=== PATIENT | male | born 1945 | race Caucasian/White ===

== ENCOUNTER 2018-03-24 18:04 | Emergency (ER) | payer MEDICARE, OTHER ==
[2018-03-24] MEDS ORDERED: ALBUTEROL NEBULIZED 2.5 MG/3 ML INHALATION STA (19:00)
[2018-03-24] MEDS ORDERED: methylPREDNISolone SOD SUCCI 125 MG/2 ML VIAL IV STA (19:00)
[2018-03-24] MEDS ORDERED: IPRATROPIUM 0.5 MG/2.5 ML NEBU INHALATION STA (19:00)
--- NOTE | 2018-03-24 19:05 | ED ---
SOB HPI - General Chief Complaint: Shortness of Breath Stated Complaint: COPD Time Seen by Provider: 03/24/18 18:45 Source: patient, family Mode of arrival: ambulatory Limitations: no limitations - History of Present Illness Initial Comments: 72-year-old male patient with past medical history significant for COPD, atrial fibrillation, and benign prostatic hypertrophy presents to the emergency department today with complaints of shortness of breath and wheezing. Patient states that he was up several times throughout the night with shortness of breath. Patient states he has done multiple breathing treatments today, states it has been more than three. Patient states he is having a frequent cough but states it is nonproductive. States that his abdominal muscles are sore from coughing. He denies any chest pain states that he does have some tightness however. Denies any hemoptysis. Patient states he did just complete a course of steroids. Patient did move here from out of town and has yet to establish with a primary care physician. Patient denies any recent rash, fever, chills, abdominal pain, nausea, vomiting, diarrhea, constipation, back pain, numbness, tingling, dizziness, weakness, hematuria, dysuria, urinary urgency, urinary frequency, headache, visual changes, or any other complaints. - Related Data Home Medications Medication Instructions Recorded Confirmed Albuterol Inhaler [Ventolin Hfa 2 puff INHALATION RT-Q6H PRN 03/24/18 03/24/18 Inhaler] Apixaban [Eliquis] 5 mg PO BID 03/24/18 03/24/18 Aspirin EC [Ecotrin Low Dose] 81 mg PO DAILY 03/24/18 03/24/18 Ipratropium-Albuterol Nebulize 3 ml INHALATION RT-QID PRN 03/24/18 03/24/18 [Duoneb 0.5 mg-3 mg/3 ml Soln] Tamsulosin HCl [Flomax] 0.8 mg PO HS 03/24/18 03/24/18 Previous Rx's Medication Instructions Recorded Benzonatate [Tessalon Perles] 100 mg PO TID #15 cap 03/24/18 predniSONE 50 mg PO DAILY #5 tablet 03/24/18 Allergies Allergy/AdvReac Type Severity Reaction Status Date / Time latex Allergy Rash/Hives Verified 03/24/18 18:54 Review of Systems ROS Statement: Those systems with pertinent positive or pertinent negative responses have been documented in the HPI. ROS Other: All systems not noted in ROS Statement are negative. Past Medical History Past Medical History: Atrial Fibrillation, COPD History of Any Multi-Drug Resistant Organisms: None Reported Past Surgical History: No Surgical Hx Reported Past Psychological History: No Psychological Hx Reported Smoking Status: Former smoker Past Alcohol Use History: None Reported Past Drug Use History: None Reported General Exam Limitations: no limitations General appearance: alert, in no apparent distress, other (This is a well- developed, well-nourished elderly male patient in no acute distress. Vital signs upon presentation are temperature 98.2F, pulse 97, respirations 22, blood pressure 130/76, pulse ox 96% on room air.) Eye exam: Present: normal appearance, PERRL, EOMI. Absent: scleral icterus, conjunctival injection, periorbital swelling ENT exam: Present: normal exam, normal oropharynx, mucous membranes moist Respiratory exam: Present: wheezes (Scattered expiratory wheezes in the posterior lung meyers), decreased breath sounds. Absent: normal lung sounds bilaterally, respiratory distress, rales, rhonchi, stridor Cardiovascular Exam: Present: regular rate, normal rhythm, normal heart sounds. Absent: systolic murmur, diastolic murmur, rubs, gallop, clicks GI/Abdominal exam: Present: soft, normal bowel sounds. Absent: distended, tenderness, guarding, rebound, rigid Neurological exam: Present: alert, oriented X3, CN II-XII intact Psychiatric exam: Present: normal affect, normal mood Skin exam: Present: warm, dry, intact, normal color. Absent: rash Course Vital Signs 03/24/18 03/24/18 03/24/18 18:11 19:21 19:31 Temperature 98.2 F Pulse Rate 97 100 102 H Respiratory 22 Rate Blood Pressure 130/76 O2 Sat by Pulse 96 Oximetry 03/24/18 03/24/18 03/24/18 20:27 20:33 21:00 Temperature Pulse Rate 67 78 77 Respiratory 20 18 Rate Blood Pressure 122/75 119/68 O2 Sat by Pulse 97 99 Oximetry 03/24/18 22:51 Temperature 97.9 F Pulse Rate 87 Respiratory 18 Rate Blood Pressure 109/74 O2 Sat by Pulse 94 L Oximetry Medical Decision Making - Medical Decision Making 72-year-old male patient presents to the emergency department today for complaints of shortness of breath. Patient has past medical history significant for COPD and states that his been bothering him overnight. Patient states he did multiple breathing treatments throughout the day today. Physical examination did reveal diminished lung sounds with scattered expiratory wheezes in the posterior lung meyers. Patient was tachypneic upon arrival. Labs reviewed and were unremarkable. EKG showed no acute abnormalities. Chest x- ray showed interstitial fibrosis but no acute findings. She was given breathing treatment and IV steroids here in the department. Upon reevaluation patient states he is feeling much better. 94% on room air. He'll be discharged home with prescription for prednisone and instructed to increase frequency breathing treatments every 4 hours as needed. He is instructed to follow-up with his primary care physician for recheck as soon as possible. Return parameters were discussed in detail. He verbalizes understanding and agrees with this plan. - Lab Data Result diagrams: 03/24/18 19:05 03/24/18 19:05 Lab Results 03/24/18 03/24/18 03/24/18 Range/Units 19:05 19:05 19:05 WBC 9.5 (3.8-10.6) k/uL RBC 4.36 (4.30-5.90) m/uL Hgb 14.2 (13.0-17.5) gm/dL Hct 42.0 (39.0-53.0) % MCV 96.2 (80.0-100.0) fL MCH 32.5 (25.0-35.0) pg MCHC 33.8 (31.0-37.0) g/dL RDW 12.9 (11.5-15.5) % Plt Count 217 (150-450) k/uL Neutrophils % 66 % Lymphocytes % 18 % Monocytes % 6 % Eosinophils % 7 % Basophils % 1 % Neutrophils # 6.3 (1.3-7.7) k/uL Lymphocytes # 1.7 (1.0-4.8) k/uL Monocytes # 0.5 (0-1.0) k/uL Eosinophils # 0.7 (0-0.7) k/uL Basophils # 0.1 (0-0.2) k/uL PT (9.0-12.0) sec INR (<1.2) APTT (22.0-30.0) sec Sodium 136 L (137-145) mmol/L Potassium 4.8 (3.5-5.1) mmol/L Chloride 105 (98-107) mmol/L Carbon Dioxide 24 (22-30) mmol/L Anion Gap 7 mmol/L BUN 24 H (9-20) mg/dL Creatinine 1.07 (0.66-1.25) mg/dL Est GFR (CKD-EPI)AfAm 80 (>60 ml/min/1.73 sqM) Est GFR (CKD-EPI)NonAf 70 (>60 ml/min/1.73 sqM) Glucose 88 (74-99) mg/dL Plasma Lactic Acid Santi (0.7-2.0) mmol/L Calcium 8.9 (8.4-10.2) mg/dL Magnesium 2.2 (1.6-2.3) mg/dL Total Bilirubin 0.5 (0.2-1.3) mg/dL AST 21 (17-59) U/L ALT 36 (21-72) U/L Alkaline Phosphatase 66 (38-126) U/L Total Creatine Kinase 75 (55-170) U/L CK-MB (CK-2) 2.8 H (0.0-2.4) ng/mL CK-MB (CK-2) Rel Index 3.7 Troponin I <0.012 (0.000-0.034) ng/mL Total Protein 6.2 L (6.3-8.2) g/dL Albumin 3.7 (3.5-5.0) g/dL 03/24/18 03/24/18 Range/Units 19:05 19:05 WBC (3.8-10.6) k/uL RBC (4.30-5.90) m/uL Hgb (13.0-17.5) gm/dL Hct (39.0-53.0) % MCV (80.0-100.0) fL MCH (25.0-35.0) pg MCHC (31.0-37.0) g/dL RDW (11.5-15.5) % Plt Count (150-450) k/uL Neutrophils % % Lymphocytes % % Monocytes % % Eosinophils % % Basophils % % Neutrophils # (1.3-7.7) k/uL Lymphocytes # (1.0-4.8) k/uL Monocytes # (0-1.0) k/uL Eosinophils # (0-0.7) k/uL Basophils # (0-0.2) k/uL PT 9.7 (9.0-12.0) sec INR 0.9 (<1.2) APTT 24.0 (22.0-30.0) sec Sodium (137-145) mmol/L Potassium (3.5-5.1) mmol/L Chloride (98-107) mmol/L Carbon Dioxide (22-30) mmol/L Anion Gap mmol/L BUN (9-20) mg/dL Creatinine (0.66-1.25) mg/dL Est GFR (CKD-EPI)AfAm (>60 ml/min/1.73 sqM) Est GFR (CKD-EPI)NonAf (>60 ml/min/1.73 sqM) Glucose (74-99) mg/dL Plasma Lactic Acid Santi 1.2 (0.7-2.0) mmol/L Calcium (8.4-10.2) mg/dL Magnesium (1.6-2.3) mg/dL Total Bilirubin (0.2-1.3) mg/dL AST (17-59) U/L ALT (21-72) U/L Alkaline Phosphatase (38-126) U/L Total Creatine Kinase (55-170) U/L CK-MB (CK-2) (0.0-2.4) ng/mL CK-MB (CK-2) Rel Index Troponin I (0.000-0.034) ng/mL Total Protein (6.3-8.2) g/dL Albumin (3.5-5.0) g/dL - EKG Data -: EKG Interpreted by Mi EKG Comments: EKG obtained at 1934 shows normal sinus rhythm with a ventricular rate of 82, CO interval 158, QRS duration 78, QT 364, QTC 425. No evidence of ST elevation or depression. - Radiology Data Radiology results: report reviewed, image reviewed Two-view x-ray of the chest is obtained. Report is reviewed in its entirety. Impression by Dr. Benedict shows mild interstitial fibrosis. Normal heart. No acute lung disease. Disposition Clinical Impression: COPD exacerbation Disposition: HOME SELF-CARE Condition: Good Instructions (If sedation given, give patient instructions): COPD (Chronic Obstructive Pulmonary Disease) (ED) Additional Instructions: Complete steroid prescription and full. 2 breathing treatments at home every 4 hours as needed. Follow-up with your primary care physician for recheck in 1-2 days. Return immediately for any new, worsening, or concerning symptoms. Prescriptions: Benzonatate [Tessalon Perles] 100 mg PO TID #15 cap predniSONE 50 mg PO DAILY #5 tablet Is patient prescribed a controlled substance at d/c from ED?: No Referrals: Deandre Flowers DO [STAFF PHYSICIAN] - 1-2 days Time of Disposition: 22:44
[2018-03-24 19:21] LABS: Basophils # (A) 0.1 k/uL (0-0.2); Basophils % (A) 1 %; Eosinophils # (A) 0.7 k/uL (0-0.7); Eosinophils % (A) 7 %; HGB 14.2 gm/dL (13.0-17.5); Lymphocytes # (A) 1.7 k/uL (1.0-4.8); Lymphocytes % (A) 18 %; MCH 32.5 pg (25.0-35.0); MCHC 33.8 g/dL (31.0-37.0); MCV 96.2 fL (80.0-100.0); Monocytes # (A) 0.5 k/uL (0-1.0); Monocytes % (A) 6 %; Neutrophils # (A) 6.3 k/uL (1.3-7.7); Neutrophils % (A) 66 %; Platelet Count 217 k/uL (150-450); RBC 4.36 m/uL (4.30-5.90); RDW 12.9 % (11.5-15.5); WBC 9.5 k/uL (3.8-10.6)
[2018-03-24 19:31] LABS: Albumin 3.7 g/dL (3.5-5.0); Calcium 8.9 mg/dL (8.4-10.2); INR 0.9 (<1.2); Magnesium 2.2 mg/dL (1.6-2.3); Potassium 4.8 mmol/L (3.5-5.1); Prothrombin Time 9.7 sec (9.0-12.0); Total Bilirubin 0.5 mg/dL (0.2-1.3); Total Protein 6.2 g/dL (6.3-8.2)
[2018-03-24 19:32] LABS: Creatine Kinase 75 U/L (55-170)
[2018-03-24 19:46] LABS: Creatine Kinase MB 2.8 ng/mL (0.0-2.4); Troponin I <0.012 ng/mL (0.000-0.034)
[2018-03-24 21:15] VITALS: RESP 18
--- NOTE | 2018-03-24 22:23 | XR ---
EXAMINATION: XR chest 2V DATE AND TIME: 03/24/2018 8:40 PM CLINICAL INDICATION: PHH; difficulty breathing TECHNIQUE: Departmental protocol COMPARISON: None FINDINGS: There is slight coarsening of interstitial markings. Heart and mediastinum are normal. There is no pl eural effusion. Bony thorax is intact. There are no hilar masses. IMPRESSION: Mild interstitial fibrosis. Normal heart. No acute lung disease.
[2018-03-24 22:52] VITALS: BP 109/74; PULSE 87; TEMP 97.9
== END 2018-03-24 22:52 | disposition home or self-care (01) ==
LOC: EC 18:04
DX: J44.1 Chronic obstructive pulmonary disease with (acute) exacerbation (principal); J84.10 Pulmonary fibrosis, unspecified; I48.91 Unspecified atrial fibrillation; N40.0 Benign prostatic hyperplasia without lower urinary tract symptoms; Z87.891 Personal history of nicotine dependence; Z91.040 Latex allergy status; Z79.01 Long term (current) use of anticoagulants; Z79.82 Long term (current) use of aspirin; Z79.899 Other long term (current) drug therapy
CPT/HCPCS: 36415; 94644; 93005; 80053; 82550; 82553; 83605; 83735; 84484; 85025; 85610; 85730; 87040; 71046; 99285; 96374; J2930

== ENCOUNTER 2018-04-03 15:06 | Inpatient (IN) | payer MEDICARE, OTHER ==
[2018-04-03] MEDS ORDERED: IPRATROPIUM 0.5 MG/2.5 ML NEBU INHALATION STA (15:20)
[2018-04-03] MEDS ORDERED: methylPREDNISolone SOD SUCCI 125 MG/2 ML VIAL IV STA (15:20)
[2018-04-03] MEDS ORDERED: ALBUTEROL NEBULIZED 2.5 MG/3 ML INHALATION STA (15:20)
--- NOTE | 2018-04-03 15:32 | ED ---
General Adult HPI - General Chief complaint: Shortness of Breath Stated complaint: KEERTHI Time Seen by Provider: 04/03/18 15:12 Source: patient, RN notes reviewed, old records reviewed Mode of arrival: ambulatory Limitations: no limitations - History of Present Illness Initial comments: 72-year-old male history of COPD presenting with worsening cough and dyspnea. Patient was seen in the emergency department 10 days ago, prescribed antibiotic , steroids symptoms initially did somewhat improve however over the past 2-3 days has had worsening cough and dyspnea. Cough is nonproductive. Denies fever or chills. Denies central chest pain, he does have some chest tightness which she associates with congestion. Denies new lower extremity pain or swelling. No history of heart failure. He does have history of atrial fibrillation and is currently on anticoagulation. He has been using albuterol, Atrovent and steroids without relief at home. - Related Data Home Medications Medication Instructions Recorded Confirmed Albuterol Inhaler [Ventolin Hfa 2 puff INHALATION RT-Q6H PRN 03/24/18 04/03/18 Inhaler] Apixaban [Eliquis] 5 mg PO BID 03/24/18 04/03/18 Aspirin EC [Ecotrin Low Dose] 81 mg PO DAILY 03/24/18 04/03/18 Ipratropium-Albuterol Nebulize 3 ml INHALATION RT-QID PRN 03/24/18 04/03/18 [Duoneb 0.5 mg-3 mg/3 ml Soln] Tamsulosin HCl [Flomax] 0.8 mg PO HS 03/24/18 04/03/18 Allergies Allergy/AdvReac Type Severity Reaction Status Date / Time latex Allergy Rash/Hives Verified 04/03/18 15:55 Review of Systems ROS Statement: Those systems with pertinent positive or pertinent negative responses have been documented in the HPI. ROS Other: All systems not noted in ROS Statement are negative. Past Medical History Past Medical History: Atrial Fibrillation, COPD History of Any Multi-Drug Resistant Organisms: None Reported Past Surgical History: No Surgical Hx Reported Past Psychological History: No Psychological Hx Reported Smoking Status: Former smoker Past Alcohol Use History: None Reported Past Drug Use History: None Reported General Exam Limitations: no limitations General appearance: alert, in no apparent distress Head exam: Present: atraumatic, normocephalic Eye exam: Present: normal appearance, PERRL ENT exam: Present: normal exam Neck exam: Present: normal inspection. Absent: tenderness, meningismus Respiratory exam: Present: respiratory distress, wheezes, rhonchi, decreased breath sounds (Left lung field) Cardiovascular Exam: Present: regular rate, normal rhythm GI/Abdominal exam: Present: soft. Absent: distended, tenderness Extremities exam: Present: normal inspection, normal capillary refill. Absent: pedal edema, calf tenderness Neurological exam: Present: alert, oriented X3, CN II-XII intact. Absent: motor sensory deficit Psychiatric exam: Present: normal affect, normal mood Skin exam: Present: warm, dry, intact. Absent: cyanosis, diaphoretic Course Vital Signs 04/03/18 04/03/18 04/03/18 15:06 15:25 15:30 Temperature 98.5 F Pulse Rate 98 85 Respiratory 22 20 18 Rate Blood Pressure 142/83 135/88 O2 Sat by Pulse 94 L 97 Oximetry 04/03/18 04/03/18 04/03/18 15:50 16:00 16:10 Temperature Pulse Rate 96 88 95 Respiratory 18 22 18 Rate Blood Pressure 126/82 126/105 O2 Sat by Pulse 95 95 Oximetry 04/03/18 04/03/18 04/03/18 16:20 16:26 16:30 Temperature Pulse Rate 99 91 88 Respiratory 25 H 20 26 H Rate Blood Pressure 126/105 126/105 O2 Sat by Pulse 94 L 92 L Oximetry 04/03/18 04/03/18 04/03/18 16:40 16:50 17:00 Temperature Pulse Rate 89 89 Respiratory 26 H 27 H Rate Blood Pressure 119/80 130/84 130/84 O2 Sat by Pulse 97 96 Oximetry 04/03/18 04/03/18 17:10 17:20 Temperature Pulse Rate 97 96 Respiratory 22 17 Rate Blood Pressure 121/70 121/70 O2 Sat by Pulse 95 96 Oximetry EKG Findings - EKG Comments: EKG Findings:: EKG: Normal sinus rhythm artifact in Predominantly V3, anterior infarct, no acute ischemic changes, rate of 92, IL interval 156, QRS duration 78 , QTC 4:[address] segment elevation Medical Decision Making - Medical Decision Making 72-year-old male presenting with cough and dyspnea history of COPD. Patient has been on antibiotics and steroids as an outpatient, felt improved. Moderate dyspnea on exam. Given albuterol, Atrovent, steroids with minimal improvement in the emergency department. Chest x-ray negative for focal pneumonia. Patient has normal CBC, normal CMP, negative troponin and BNP. Will be admitted for further treatment of COPD exacerbation. Case discussed with admitting physician will accept. - Lab Data Result diagrams: 04/03/18 15:45 04/03/18 15:45 Lab Results 04/03/18 04/03/18 04/03/18 Range/Units 15:45 15:45 15:45 WBC 10.2 (3.8-10.6) k/uL RBC 4.69 (4.30-5.90) m/uL Hgb 14.6 (13.0-17.5) gm/dL Hct 45.3 (39.0-53.0) % MCV 96.6 (80.0-100.0) fL MCH 31.2 (25.0-35.0) pg MCHC 32.3 (31.0-37.0) g/dL RDW 12.9 (11.5-15.5) % Plt Count 259 (150-450) k/uL Neutrophils % 59 % Lymphocytes % 16 % Monocytes % 8 % Eosinophils % 14 % Basophils % 1 % Neutrophils # 6.0 (1.3-7.7) k/uL Lymphocytes # 1.6 (1.0-4.8) k/uL Monocytes # 0.8 (0-1.0) k/uL Eosinophils # 1.4 H (0-0.7) k/uL Basophils # 0.1 (0-0.2) k/uL PT (9.0-12.0) sec INR (<1.2) APTT (22.0-30.0) sec Sodium 135 L (137-145) mmol/L Potassium 4.7 (3.5-5.1) mmol/L Chloride 102 (98-107) mmol/L Carbon Dioxide 24 (22-30) mmol/L Anion Gap 9 mmol/L BUN 19 (9-20) mg/dL Creatinine 0.79 (0.66-1.25) mg/dL Est GFR (CKD-EPI)AfAm >90 (>60 ml/min/1.73 sqM) Est GFR (CKD-EPI)NonAf >90 (>60 ml/min/1.73 sqM) Glucose 87 (74-99) mg/dL Plasma Lactic Acid Santi (0.7-2.0) mmol/L Calcium 9.1 (8.4-10.2) mg/dL Magnesium 2.2 (1.6-2.3) mg/dL Total Bilirubin 1.0 (0.2-1.3) mg/dL AST 20 (17-59) U/L ALT 36 (21-72) U/L Alkaline Phosphatase 60 (38-126) U/L Total Creatine Kinase 66 (55-170) U/L CK-MB (CK-2) 1.8 (0.0-2.4) ng/mL CK-MB (CK-2) Rel Index 2.7 Troponin I <0.012 (0.000-0.034) ng/mL NT-Pro-B Natriuret Pep pg/mL Total Protein 6.1 L (6.3-8.2) g/dL Albumin 4.1 (3.5-5.0) g/dL 04/03/18 04/03/18 04/03/18 Range/Units 15:45 15:45 15:45 WBC (3.8-10.6) k/uL RBC (4.30-5.90) m/uL Hgb (13.0-17.5) gm/dL Hct (39.0-53.0) % MCV (80.0-100.0) fL MCH (25.0-35.0) pg MCHC (31.0-37.0) g/dL RDW (11.5-15.5) % Plt Count (150-450) k/uL Neutrophils % % Lymphocytes % % Monocytes % % Eosinophils % % Basophils % % Neutrophils # (1.3-7.7) k/uL Lymphocytes # (1.0-4.8) k/uL Monocytes # (0-1.0) k/uL Eosinophils # (0-0.7) k/uL Basophils # (0-0.2) k/uL PT 10.0 (9.0-12.0) sec INR 0.9 (<1.2) APTT 24.4 (22.0-30.0) sec Sodium (137-145) mmol/L Potassium (3.5-5.1) mmol/L Chloride (98-107) mmol/L Carbon Dioxide (22-30) mmol/L Anion Gap mmol/L BUN (9-20) mg/dL Creatinine (0.66-1.25) mg/dL Est GFR (CKD-EPI)AfAm (>60 ml/min/1.73 sqM) Est GFR (CKD-EPI)NonAf (>60 ml/min/1.73 sqM) Glucose (74-99) mg/dL Plasma Lactic Acid Santi 1.1 (0.7-2.0) mmol/L Calcium (8.4-10.2) mg/dL Magnesium (1.6-2.3) mg/dL Total Bilirubin (0.2-1.3) mg/dL AST (17-59) U/L ALT (21-72) U/L Alkaline Phosphatase (38-126) U/L Total Creatine Kinase (55-170) U/L CK-MB (CK-2) (0.0-2.4) ng/mL CK-MB (CK-2) Rel Index Troponin I (0.000-0.034) ng/mL NT-Pro-B Natriuret Pep 26 pg/mL Total Protein (6.3-8.2) g/dL Albumin (3.5-5.0) g/dL Critical Care Time Critical Care Time: Yes Disposition Clinical Impression: COPD exacerbation Disposition: ADMITTED IP TO THIS [facility] Condition: Stable Is patient prescribed a controlled substance at d/c from ED?: No Referrals: Frankie Wall DO [Primary Care Provider] - 1-2 days Decision to Admit Reason: Admit from EC Decision Date: 04/03/18 Decision Time: 17:39
[2018-04-03] MEDS ORDERED: IPRATROPIUM-ALBUTEROL 3 ML NEB INHALATION PRN ×2 (15:48→17:37)
--- NOTE | 2018-04-03 15:55 | P.HPIM ---
History of Present Illness Patient is a very pleasant 70-year-old gentleman came in with complaints of shortness of breath cough unable to bring up anything. Patient symptoms has been going on for last 3-4 days patient is unable to sleep because of shortness of breath last night. Chest x-ray is not available at this time which was ordered in ER. Patient has significant wheezing on exam patient doesn't wear any oxygen at home continues to smoke cut down on smoking quite a bit. Patient denied any fever chills body aches nausea vomiting dysuria. Review of Systems REVIEW OF SYSTEMS: CONSTITUTIONAL: No fever, no malaise, no fatigue. HEENT: No recent visual problems or hearing problems. Denied any sore throat. CARDIOVASCULAR: No chest pain, orthopnea, PND, no palpitations, no syncope. PULMONARY: , no hemoptysis. GASTROINTESTINAL: No diarrhea, no nausea, no vomiting, no abdominal pain. NEUROLOGICAL: No headaches, no weakness, no numbness. HEMATOLOGICAL: Denies any bleeding or petechiae. GENITOURINARY: Denies any burning micturition, frequency, or urgency. MUSCULOSKELETAL/RHEUMATOLOGICAL: Denies any joint pain, swelling, or any muscle pain. ENDOCRINE: Denies any polyuria or polydipsia. The rest of the 14-point review of systems is negative. Past Medical History Past Medical History: Atrial Fibrillation, COPD History of Any Multi-Drug Resistant Organisms: None Reported Past Surgical History: No Surgical Hx Reported Past Psychological History: No Psychological Hx Reported Smoking Status: Former smoker Past Alcohol Use History: None Reported Past Drug Use History: None Reported Medications and Allergies Home Medications Medication Instructions Recorded Confirmed Type Albuterol Inhaler [Ventolin Hfa 2 puff INHALATION RT-Q6H PRN 03/24/18 03/24/18 History Inhaler] Apixaban [Eliquis] 5 mg PO BID 03/24/18 03/24/18 History Aspirin EC [Ecotrin Low Dose] 81 mg PO DAILY 03/24/18 03/24/18 History Benzonatate [Tessalon Perles] 100 mg PO TID #15 cap 03/24/18 Rx Ipratropium-Albuterol Nebulize 3 ml INHALATION RT-QID PRN 03/24/18 03/24/18 History [Duoneb 0.5 mg-3 mg/3 ml Soln] Tamsulosin HCl [Flomax] 0.8 mg PO HS 03/24/18 03/24/18 History predniSONE 50 mg PO DAILY #5 tablet 03/24/18 Rx Allergies Allergy/AdvReac Type Severity Reaction Status Date / Time latex Allergy Rash/Hives Verified 04/03/18 15:10 Physical Exam Vitals: Vital Signs Temp Pulse Resp BP Pulse Ox 04/03/18 15:06 98.5 F 98 22 142/83 94 L Intake and Output 04/03/18 04/03/18 04/03/18 06:59 14:59 22:59 Other: Weight 72.575 kg PHYSICAL EXAMINATION: GENERAL: The patient is alert and oriented x3, not in any acute distress. Well developed, well nourished. HEENT: Pupils are round and equally reacting to light. EOMI. No scleral icterus. No conjunctival pallor. Normocephalic, atraumatic. No pharyngeal erythema. No thyromegaly. CARDIOVASCULAR: S1 and S2 present. No murmurs, rubs, or gallops. PULMONARY: Significant expiratory wheezing no crackles were appreciated no bronchophony egophony ABDOMEN: Soft, nontender, nondistended, normoactive bowel sounds. No palpable organomegaly. MUSCULOSKELETAL: No joint swelling or deformity. EXTREMITIES: No cyanosis, clubbing, or pedal edema. NEUROLOGICAL: Gross neurological examination did not reveal any focal deficits. SKIN: No rashes. Assessment and Plan Plan: Shortness of breath: Secondary to COPD exacerbation: Patient will be started on systemic steroids inhalational treatments. -History of atrial fibrillation mildly increased heart rate although sinus rhythm, patient will be resumed on anticoagulation with Eliquis aspirin is not necessary that will be discontinued. -We'll rule out pneumonia -Plan prostatic hypertrophy: Continue tamsulosin -Continue nicotine use: Counseling was provided
[2018-04-03] MEDS ORDERED: IPRATROPIUM-ALBUTEROL 3 ML NEB INHALATION SCH (16:00)
[2018-04-03 16:04] LABS: Basophils # (A) 0.1 k/uL (0-0.2); Basophils % (A) 1 %; Eosinophils # (A) 1.4 k/uL (0-0.7); Eosinophils % (A) 14 %; HCT 45.3 % (39.0-53.0); HGB 14.6 gm/dL (13.0-17.5); Lymphocytes # (A) 1.6 k/uL (1.0-4.8); Lymphocytes % (A) 16 %; MCH 31.2 pg (25.0-35.0); MCHC 32.3 g/dL (31.0-37.0); MCV 96.6 fL (80.0-100.0); Mean Platelet Volume 6.9; Monocytes # (A) 0.8 k/uL (0-1.0); Monocytes % (A) 8 %; Neutrophils % (A) 59 %; Platelet Count 259 k/uL (150-450); RBC 4.69 m/uL (4.30-5.90); RDW 12.9 % (11.5-15.5); WBC 10.2 k/uL (3.8-10.6)
[2018-04-03 16:08] LABS: INR 0.9 (<1.2); Partial Thromboplastin Time 24.4 sec (22.0-30.0)
[2018-04-03 16:11] LABS: ALT 36 U/L (21-72); AST 20 U/L (17-59); Albumin 4.1 g/dL (3.5-5.0); Alkaline Phosphatase 60 U/L (38-126); Anion Gap 9 mmol/L; Blood Urea Nitrogen 19 mg/dL (9-20); Calcium 9.1 mg/dL (8.4-10.2); Carbon Dioxide 24 mmol/L (22-30); Chloride 102 mmol/L (98-107); Glucose 87 mg/dL (74-99); Magnesium 2.2 mg/dL (1.6-2.3); Potassium 4.7 mmol/L (3.5-5.1); Sodium 135 mmol/L (137-145); Total Protein 6.1 g/dL (6.3-8.2)
[2018-04-03 16:16] LABS: Creatine Kinase 66 U/L (55-170)
[2018-04-03 16:29] LABS: Creatine Kinase MB 1.8 ng/mL (0.0-2.4); Troponin I <0.012 ng/mL (0.000-0.034)
--- NOTE | 2018-04-03 16:45 | XR ---
EXAMINATION TYPE: XR chest 2V DATE OF EXAM: 04/03/2018 COMPARISON: 03/24/2018 HISTORY: Difficulty breathing TECHNIQUE: Frontal and lateral views of the chest are obtained. FINDINGS: Heart is normal. There is no pulmonary consolidation. There is slight coarsening of inters titial markings. There is no pleural effusion. Bony thorax is intact. IMPRESSION: Minimal pulmonary fibrosis. No acute lung disease. No change. No heart failure.
[2018-04-03] MEDS: BENZONATATE 100 MG CAP PO SCH ×2 (19:31→22:31)
[2018-04-03 20:05] VITALS: BMI 25.8
[2018-04-03] MEDS ORDERED: HEPARIN SODIUM,PORCINE 5,000 UNIT/ML 1 ML VIAL SQ SCH (21:00)
[2018-04-03] MEDS ORDERED: TAMSULOSIN 0.4 MG CAP.ER.24H PO SCH (21:00)
[2018-04-03] MEDS ORDERED: methylPREDNISolone SOD SUCCI 40 MG/ML 1 ML VIAL IV SCH (21:00)
[2018-04-03] MEDS: IPRATROPIUM-ALBUTEROL 3 ML NEB INHALATION SCH (21:01)
[2018-04-03] MEDS: DOXYCYCLINE 100 MG CAP PO SCH (22:30)
[2018-04-03] MEDS: METOPROLOL TARTRATE 25 MG TAB PO SCH (22:30)
[2018-04-03] MEDS: FAMOTIDINE 20 MG TAB PO SCH (22:30)
[2018-04-03] MEDS: APIXABAN 5 MG TAB PO SCH (22:31)
[2018-04-03] MEDS: methylPREDNISolone SOD SUCCI 125 MG/2 ML VIAL IV SCH (22:38)
[2018-04-04] MEDS: methylPREDNISolone SOD SUCCI 125 MG/2 ML VIAL IV SCH ×2 (05:00→12:19)
[2018-04-04] MEDS: IPRATROPIUM-ALBUTEROL 3 ML NEB INHALATION SCH ×2 (07:01→10:45)
[2018-04-04] MEDS: APIXABAN 5 MG TAB PO SCH (08:38)
[2018-04-04] MEDS: METOPROLOL TARTRATE 25 MG TAB PO SCH (08:39)
[2018-04-04] MEDS: FAMOTIDINE 20 MG TAB PO SCH (08:39)
[2018-04-04] MEDS: DOXYCYCLINE 100 MG CAP PO SCH (08:39)
[2018-04-04] MEDS: BENZONATATE 100 MG CAP PO SCH (08:39)
[2018-04-04] MEDS ORDERED: LEVOFLOXACIN 500 MG TAB PO SCH (09:00)
--- NOTE | 2018-04-04 14:00 | P.DS ---
Providers Date of admission: 04/03/18 17:47 Attending physician: Emily Ramos [facility] Course: She is admitted for COPD exenteration patient is presently clinically doing well will ablate the patient is saturating okay patient will be discharged today to follow up with primary care physician as an outpatient. PHYSICAL EXAMINATION: GENERAL: The patient is alert and oriented x3, not in any acute distress. Well developed, well nourished. HEENT: Pupils are round and equally reacting to light. EOMI. No scleral icterus. No conjunctival pallor. Normocephalic, atraumatic. No pharyngeal erythema. No thyromegaly. CARDIOVASCULAR: S1 and S2 present. No murmurs, rubs, or gallops. PULMONARY: Decreased air entry still has minimal expiratory wheezing ABDOMEN: Soft, nontender, nondistended, normoactive bowel sounds. No palpable organomegaly. MUSCULOSKELETAL: No joint swelling or deformity. EXTREMITIES: No cyanosis, clubbing, or pedal edema. NEUROLOGICAL: Gross neurological examination did not reveal any focal deficits. SKIN: No rashes. He is referred to my dictation of H&P for further details of hospitalization course and chronic medical problems Patient Condition at Discharge: Stable Plan - Discharge Summary Discharge Rx Participant: No New Discharge Prescriptions: New Albuterol Inhaler [Ventolin Hfa Inhaler] 1 - 2 puff INHALATION Q6HR PRN #1 inhaler PRN Reason: Shortness Of Breath Or Wheezing Budesonide-Formot 160-4.5 Mcg [Symbicort 160-4.5 Mcg Inhaler] 2 puff INHALATION BID #1 inhaler Doxycycline Monohydrate [Monodox] 100 mg PO BID 3 Days #6 cap predniSONE 10 mg PO DAILY #30 tab Tiotropium [place] [Spiriva] 1 cap INHALATION DAILY #1 device Metoprolol Tartrate [Lopressor] 50 mg PO BID #60 tab Continue Ipratropium-Albuterol Nebulize [Duoneb 0.5 mg-3 mg/3 ml Soln] 3 ml INHALATION RT-QID PRN PRN Reason: Shortness Of Breath Apixaban [Eliquis] 5 mg PO BID Albuterol Inhaler [Ventolin Hfa Inhaler] 2 puff INHALATION RT-Q6H PRN PRN Reason: Shortness Of Breath Tamsulosin HCl [Flomax] 0.8 mg PO HS Discontinued Aspirin EC [Ecotrin Low Dose] 81 mg PO DAILY Discharge Medication List Albuterol Inhaler [Ventolin Hfa Inhaler] 2 puff INHALATION RT-Q6H PRN 03/24/18 [ History] Apixaban [Eliquis] 5 mg PO BID 03/24/18 [History] Ipratropium-Albuterol Nebulize [Duoneb 0.5 mg-3 mg/3 ml Soln] 3 ml INHALATION RT -QID PRN 03/24/18 [History] Tamsulosin HCl [Flomax] 0.8 mg PO HS 03/24/18 [History] Albuterol Inhaler [Ventolin Hfa Inhaler] 1 - 2 puff INHALATION Q6HR PRN #1 inhaler 04/04/18 [Rx] Budesonide-Formot 160-4.5 Mcg [Symbicort 160-4.5 Mcg Inhaler] 2 puff INHALATION BID #1 inhaler 04/04/18 [Rx] Doxycycline Monohydrate [Monodox] 100 mg PO BID 3 Days #6 cap 04/04/18 [Rx] Metoprolol Tartrate [Lopressor] 50 mg PO BID #60 tab 04/04/18 [Rx] Tiotropium [place] [Spiriva] 1 cap INHALATION DAILY #1 device 04/04/18 [Rx] predniSONE 10 mg PO DAILY #30 tab 04/04/18 [Rx] Follow up Appointment(s)/Referral(s): Frankie Wall DO [Primary Care Provider] - 04/07/18 (Office closed for lunch , please call to schedule appointment. ) Patient Instructions/Handouts: COPD (Chronic Obstructive Pulmonary Disease) ( GEN) Activity/Diet/Wound Care/Special Instructions: NO smoking, cessation information discussed and provided. Limited activity until follow up with Cardiac diet.
[2018-04-04 14:32] VITALS: BP 120/67; PULSE 76; RESP 18; TEMP 98.6
[2018-04-05] MEDS ORDERED: predniSONE 20 MG TAB PO SCH (09:00)
--- NOTE | 2018-04-10 07:32 | CDI ---
Documentation Clarification Form Date: 04/07/2018 7:35:00 AM From: Krista Cruz Daysi Brennan, Time Signal Wirer Hours-8:30 am & 5 pm MOsvaldo Admit Date: 04/04/2018 1:39:00 PM Patient Name: Shawn Hinkle Visit Number: [id number] Discharge Date: 04/04/2018 2:36:00 PM ATTENTION: The Clinical Documentation Specialists (CDI) and [facility] Coding Staff appreciate your assistance in clarifying documentation. Please respond to the clarification below the line at the bottom and electronically sign. The CDI & [facility] Coding staff will review the response and follow-up if needed. Please note: Queries are made part of the Legal Health Record. If you have any questions, please contact the author of this message via ITS. Dr. Emily Ramos Pneumonia was documented in your notes on H&P, ED History/Risk Factors: COPD Exac, Smoker Clinical Indicators:Cough, Dyspnea CX-ray: negative for focal PNA Treatment:IV Abx In order to capture the severity of condition, please clarify: Pneumonia ruled in Pneumonia ruled out Other, please specify Unable to determine Pneumonia ruled out, no pneumonia MTDD
--- NOTE | 2018-04-10 07:35 | CDI ---
Documentation Clarification Form Date: 04/07/2018 7:45:00 AM From: Krista Cruz Daysi Brennan, Turning Lathe Tender Hours-8:30 am & 5 pm M-F Admit Date: 04/04/2018 1:39:00 PM Patient Name: Shawn Hinkle Visit Number: [id number] Discharge Date: 04/04/2018 2:36:00 PM ATTENTION: The Clinical Documentation Specialists (CDI) and [facility] Coding Staff appreciate your assistance in clarifying documentation. Please respond to the clarification below the line at the bottom and electronically sign. The CDI & [facility] Coding staff will review the response and follow-up if needed. Please note: Queries are made part of the Legal Health Record. If you have any questions, please contact the author of this message via ITS. Dr. Emily Ramos Atrial Fibrillation is documented in the H&P, ED Note In your professional opinion, can you please clarify the type of Atrial Fibrillation, if known? Chronic/Permanent Paroxysmal Persistent Other, please specify Unable to determine Paroxysmal A. fib MTDD
== END 2018-04-04 14:36 | disposition home or self-care (01) | DRG 192 ==
LOC: EC 15:06 → 4MS4W 17:47 → OBSVTOIN 04-04 13:39
PROVIDERS: ADMIT Internal Medicine; ATTEND Internal Medicine
DX: J44.1 Chronic obstructive pulmonary disease with (acute) exacerbation (principal); I48.0 Paroxysmal atrial fibrillation; N40.0 Benign prostatic hyperplasia without lower urinary tract symptoms; F17.200 Nicotine dependence, unspecified, uncomplicated; Z71.6 Tobacco abuse counseling; Z79.82 Long term (current) use of aspirin; Z79.01 Long term (current) use of anticoagulants; Z79.899 Other long term (current) drug therapy; Z91.040 Latex allergy status
CPT/HCPCS: 36415; 71046; 80053; 82550; 82553; 83605; 83735; 83880; 84484; 85025; 85610; 85730; 87040; 93005; 94640; 94760; 96365; 96375; 99285

== ENCOUNTER 2018-04-14 17:31 | Emergency (ER) | payer MEDICARE ==
[2018-04-14 18:24] LABS: Basophils # (A) 0.1 k/uL (0-0.2); Basophils % (A) 0 %; Eosinophils # (A) 0.7 k/uL (0-0.7); Eosinophils % (A) 6 %; HCT 43.3 % (39.0-53.0); HGB 14.4 gm/dL (13.0-17.5); Lymphocytes # (A) 1.7 k/uL (1.0-4.8); Lymphocytes % (A) 14 %; MCHC 33.3 g/dL (31.0-37.0); MCV 96.3 fL (80.0-100.0); Mean Platelet Volume 6.7; Monocytes # (A) 0.7 k/uL (0-1.0); Monocytes % (A) 6 %; Neutrophils % (A) 73 %; Platelet Count 230 k/uL (150-450); WBC 12.3 k/uL (3.8-10.6)
--- NOTE | 2018-04-14 18:27 | ED ---
Chest Pain HPI - General Chief Complaint: Chest Pain Stated Complaint: chest pain Time Seen by Provider: 04/14/18 18:03 Source: patient, RN notes reviewed Mode of arrival: ambulatory Limitations: no limitations - History of Present Illness Initial Comments: This is a 73-year-old male presents with complaints of sharp chest pain it started around 4 PM today while he was sitting at a table. It was brief rather severe is gone now. He points to his left lateral anterior chest wall he has any trauma cough other than a slight cough from his COPD no fevers chills nausea vomiting sweats or other symptoms MD Complaint: chest pain - Related Data Home Medications Medication Instructions Recorded Confirmed Apixaban [Eliquis] 5 mg PO BID 03/24/18 04/14/18 Ipratropium-Albuterol Nebulize 3 ml INHALATION RT-QID PRN 03/24/18 04/14/18 [Duoneb 0.5 mg-3 mg/3 ml Soln] Tamsulosin HCl [Flomax] 0.8 mg PO HS 03/24/18 04/14/18 Previous Rx's Medication Instructions Recorded Albuterol Inhaler [Ventolin Hfa 1 - 2 puff INHALATION Q6HR PRN #1 04/04/18 Inhaler] inhaler Budesonide-Formot 160-4.5 Mcg 2 puff INHALATION BID #1 inhaler 04/04/18 [Symbicort 160-4.5 Mcg Inhaler] Metoprolol Tartrate [Lopressor] 50 mg PO BID #60 tab 04/04/18 Tiotropium [place] [Spiriva] 1 cap INHALATION DAILY #1 device 04/04/18 Allergies Allergy/AdvReac Type Severity Reaction Status Date / Time latex Allergy Rash/Hives Verified 04/14/18 18:56 Review of Systems ROS Statement: Those systems with pertinent positive or pertinent negative responses have been documented in the HPI. ROS Other: All systems not noted in ROS Statement are negative. EKG Findings - EKG Results: EKG: interpreted by DEVANTE, sinus rhythm (Sinus rhythm rate of 88. Interval 154 QRS duration 84 QT since QTC 346/[address]-T wave changes.) Past Medical History Past Medical History: Atrial Fibrillation, COPD, Prostate Disorder History of Any Multi-Drug Resistant Organisms: None Reported Past Surgical History: No Surgical Hx Reported Additional Past Surgical History / Comment(s): cataract -lens implants Past Anesthesia/Blood Transfusion Reactions: No Reported Reaction Additional Past Anesthesia/Blood Transfusion Reaction / Comment(s): has never received any blood transfusions Past Psychological History: No Psychological Hx Reported Smoking Status: Current every day smoker Past Alcohol Use History: None Reported Past Drug Use History: None Reported - Past Family History Mother Family Medical History: AFIB, Dementia Father Family Medical History: Myocardial Infarction ([place]) Additional Family Medical History / Comment(s): in his 70's [place] General Exam - General Exam Comments Initial Comments: This is a well developed well-nourished awake alert oriented times 3 male Limitations: no limitations General appearance: alert, in no apparent distress Head exam: Present: atraumatic, normocephalic, normal inspection Eye exam: Present: normal appearance, PERRL, EOMI. Absent: scleral icterus, conjunctival injection, periorbital swelling ENT exam: Present: normal exam, mucous membranes moist Neck exam: Present: normal inspection. Absent: tenderness, meningismus, lymphadenopathy Respiratory exam: Present: normal lung sounds bilaterally. Absent: respiratory distress, wheezes, rales, rhonchi, stridor Cardiovascular Exam: Present: regular rate, normal rhythm, normal heart sounds. Absent: systolic murmur, diastolic murmur, rubs, gallop, clicks GI/Abdominal exam: Present: soft, normal bowel sounds. Absent: distended, tenderness, guarding, rebound, rigid Extremities exam: Present: normal inspection, full ROM, normal capillary refill. Absent: tenderness, pedal edema, joint swelling, calf tenderness Back exam: Present: normal inspection Neurological exam: Present: alert, oriented X3, CN II-XII intact Psychiatric exam: Present: normal affect, normal mood Skin exam: Present: warm, dry, intact, normal color. Absent: rash Course Vital Signs 04/14/18 04/14/18 04/14/18 17:39 19:23 19:50 Temperature 97.9 F Pulse Rate 101 H 80 90 Respiratory 18 Rate Blood Pressure 118/68 117/76 109/69 O2 Sat by Pulse 94 L 93 L 94 L Oximetry Chest Pain MDM - MDM I did review the imaging and report no acute findings. Patient's had no further chest pain since he arrived the presentation is consistent with chest wall pain/costochondritis. I did discuss this with the patient family. Tylenol for pain and follow-up with her doctor. Disposition Clinical Impression: Chest wall syndrome, Costalchondritis Disposition: HOME SELF-CARE Condition: Good Instructions (If sedation given, give patient instructions): Costochondritis ( ED), Chest Wall Pain (ED) Additional Instructions: Extra strength Tylenol for pain Is patient prescribed a controlled substance at d/c from ED?: No Referrals: Frankie Wall DO [Primary Care Provider] - 1-2 days
[2018-04-14 18:31] LABS: INR 0.9 (<1.2); Partial Thromboplastin Time 22.8 sec (22.0-30.0); Prothrombin Time 9.6 sec (9.0-12.0)
[2018-04-14 18:32] LABS: ALT 35 U/L (21-72); AST 21 U/L (17-59); Albumin 3.4 g/dL (3.5-5.0); Alkaline Phosphatase 70 U/L (38-126); Anion Gap 6 mmol/L; Blood Urea Nitrogen 29 mg/dL (9-20); Calcium 9.1 mg/dL (8.4-10.2); Carbon Dioxide 26 mmol/L (22-30); Chloride 104 mmol/L (98-107); Glucose 109 mg/dL (74-99); Potassium 4.2 mmol/L (3.5-5.1); Sodium 136 mmol/L (137-145); Total Bilirubin 0.5 mg/dL (0.2-1.3); Total Protein 5.9 g/dL (6.3-8.2)
[2018-04-14 18:45] LABS: Creatine Kinase 29 U/L (55-170)
[2018-04-14 18:57] LABS: Creatine Kinase MB 0.6 ng/mL (0.0-2.4); Troponin I <0.012 ng/mL (0.000-0.034)
--- NOTE | 2018-04-14 19:11 | XR ---
EXAMINATION: XR chest 2V DATE AND TIME: 04/14/2018 6:15 PM CLINICAL INDICATION: PHH; Chest Pain TECHNIQUE: Departmental protocol COMPARISON: 04/03/2018 FINDINGS: The uterus is seen in course and reticular pattern of increased attenuation throughout the lungs bila terally, symmetrically silhouetting the pulmonary vasculature, is unchanged. No new pulmonary process . No pleural process. The cardiac silhouette is borderline enlarged. The cardiac shadow itself is mildly silhouetted by the coarse reticular pattern previously noted to represent interstitial pulmonary fibrosis. The skeletal structures and soft tissues are negative for acute findings. IMPRESSION: STABLE CHEST RADIOGRAPHIC APPEARANCE; NO DEFINITE NEW PROCESS.
[2018-04-14 20:31] VITALS: TEMP 97.6
[2018-04-14 21:28] VITALS: BP 116/74; PULSE 92; RESP 16
== END 2018-04-14 21:25 | disposition home or self-care (01) ==
LOC: EC 17:31
DX: M94.0 Chondrocostal junction syndrome [Tietze] (principal); J44.9 Chronic obstructive pulmonary disease, unspecified; I48.91 Unspecified atrial fibrillation; N42.9 Disorder of prostate, unspecified; F17.200 Nicotine dependence, unspecified, uncomplicated; Z91.040 Latex allergy status; Z79.01 Long term (current) use of anticoagulants; Z79.899 Other long term (current) drug therapy; Z82.49 Family history of ischemic heart disease and other diseases of the circulatory system
CPT/HCPCS: 36415; 71046; 80053; 82550; 82553; 83735; 84484; 85025; 85610; 85730; 93005; 99285

== ENCOUNTER 2018-04-20 16:04 | Observation (INO) | payer MEDICARE ==
[2018-04-20] MEDS ORDERED: SODIUM CHLORIDE 0.9% 500 ML 500 ML IV STA (17:10)
[2018-04-20] MEDS ORDERED: methylPREDNISolone SOD SUCCI 125 MG/2 ML VIAL IV STA (17:11)
[2018-04-20] MEDS ORDERED: IPRATROPIUM-ALBUTEROL 3 ML NEB INHALATION STA ×3 (17:11→18:17)
[2018-04-20 17:21] LABS: Basophils # (A) 0.1 k/uL (0-0.2); Basophils % (A) 1 %; Eosinophils # (A) 0.7 k/uL (0-0.7); Eosinophils % (A) 8 %; HGB 13.8 gm/dL (13.0-17.5); Lymphocytes # (A) 1.2 k/uL (1.0-4.8); Lymphocytes % (A) 14 %; MCH 33.6 pg (25.0-35.0); MCHC 35.3 g/dL (31.0-37.0); MCV 95.2 fL (80.0-100.0); Mean Platelet Volume 7.3; Monocytes # (A) 0.6 k/uL (0-1.0); Monocytes % (A) 7 %; Neutrophils # (A) 5.8 k/uL (1.3-7.7); Neutrophils % (A) 68 %; Platelet Count 196 k/uL (150-450); RDW 13.1 % (11.5-15.5); WBC 8.5 k/uL (3.8-10.6)
[2018-04-20 17:35] LABS: INR 0.9 (<1.2); Partial Thromboplastin Time 24.7 sec (22.0-30.0); Prothrombin Time 10.1 sec (9.0-12.0)
[2018-04-20 17:38] LABS: ALT 33 U/L (21-72); AST 18 U/L (17-59); Albumin 3.7 g/dL (3.5-5.0); Alkaline Phosphatase 59 U/L (38-126); Anion Gap 7 mmol/L; Blood Urea Nitrogen 21 mg/dL (9-20); Calcium 9.1 mg/dL (8.4-10.2); Carbon Dioxide 24 mmol/L (22-30); Chloride 107 mmol/L (98-107); Glucose 101 mg/dL (74-99); Potassium 4.3 mmol/L (3.5-5.1); Sodium 138 mmol/L (137-145); Total Bilirubin 0.6 mg/dL (0.2-1.3); Total Protein 6.2 g/dL (6.3-8.2)
--- NOTE | 2018-04-20 17:38 | XR ---
EXAMINATION TYPE: XR chest 2V DATE OF EXAM: 04/20/2018 COMPARISON: April 14, 2018 HISTORY: Short of breath TECHNIQUE: Frontal and lateral views of the chest are obtained. FINDINGS: There is no heart failure nor confluent pneumonic infiltrate. There is slight coarsening o f interstitial markings. Heart size is normal. There is no pleural effusion. Bony thorax is intact. IMPRESSION: Mild pulmonary fibrosis. No acute lung disease. No change.
[2018-04-20 17:40] LABS: Creatine Kinase 53 U/L (55-170)
[2018-04-20 17:53] LABS: Creatine Kinase MB 1.5 ng/mL (0.0-2.4); Troponin I <0.012 ng/mL (0.000-0.034)
--- NOTE | 2018-04-20 18:06 | ED ---
General Adult HPI <Tesfaye Harmon - Last Filed: 04/20/18 18:25> - General Source: patient Mode of arrival: wheelchair Limitations: no limitations <Melany Plummer - Last Filed: 04/20/18 18:39> - General Chief complaint: Shortness of Breath Stated complaint: KEERTHI Time Seen by Provider: 04/20/18 17:06 - History of Present Illness Initial comments: 73-year-old male past medical history of COPD incur every day smoker presenting today for chief complaint of difficulty breathing. Patient states she has had COPD exacerbations in the past and this feels similar. He states it began yesterday and has been increasing. Patient denies any chest pain, chest pressure, upper extremity paresthesias, jaw pain, diaphoresis, nausea, vomiting epigastric abdominal pain. He states he feels wheezy and tight when he tries to take a deep breath. Patient denies any home oxygen use. He denies any previous intubations. Pt denies history of cancer, hemoptysis, recent travel, calf pain or swelling, lower extremity edema. Patient denies any palpitations. Patient denies any recent fever, chills, rigors, increasing sputum production. On arrival patient appears short of breath, he is able to full speak full sentences. Abdominal breathing noted. Patient oxygen saturation 91 % on RA. HR elevated. (-) Levign sign. EKG obtained in advanced triage-reviewed by attending Dr Mane. (Melany Plummer) - Related Data Home Medications Medication Instructions Recorded Confirmed Apixaban [Eliquis] 5 mg PO BID 03/24/18 04/20/18 Ipratropium-Albuterol Nebulize 3 ml INHALATION RT-QID 03/24/18 04/20/18 [Duoneb 0.5 mg-3 mg/3 ml Soln] Tamsulosin HCl [Flomax] 0.8 mg PO HS 03/24/18 04/20/18 Albuterol Inhaler [Ventolin Hfa 1 - 2 puff INHALATION RT-QID PRN 04/20/18 Inhaler] Budesonide-Formot 160-4.5 Mcg 2 puff INHALATION RT-BID 04/20/18 04/20/18 [Symbicort 160-4.5 Mcg Inhaler] Tiotropium [place] [Spiriva] 1 cap INHALATION RT-DAILY 04/20/18 04/20/18 Previous Rx's Medication Instructions Recorded Metoprolol Tartrate [Lopressor] 50 mg PO BID #60 tab 04/04/18 Allergies Allergy/AdvReac Type Severity Reaction Status Date / Time latex Allergy Rash/Hives Verified 04/20/18 17:38 Review of Systems ROS Other: All systems not noted in ROS Statement are negative. <Tesfaye Harmon - Last Filed: 04/20/18 18:25> ROS Other: All systems not noted in ROS Statement are negative. <Melany Plummre - Last Filed: 04/20/18 18:39> ROS Statement: Those systems with pertinent positive or pertinent negative responses have been documented in the HPI. Past Medical History Past Medical History: Atrial Fibrillation, COPD, Prostate Disorder History of Any Multi-Drug Resistant Organisms: None Reported Past Surgical History: No Surgical Hx Reported Additional Past Surgical History / Comment(s): cataract -lens implants Past Anesthesia/Blood Transfusion Reactions: No Reported Reaction Additional Past Anesthesia/Blood Transfusion Reaction / Comment(s): has never received any blood transfusions Past Psychological History: No Psychological Hx Reported Smoking Status: Current every day smoker Past Alcohol Use History: None Reported Past Drug Use History: None Reported - Past Family History Mother Family Medical History: AFIB, Dementia Father Family Medical History: Myocardial Infarction ([place]) Additional Family Medical History / Comment(s): in his 70's [place] <Melany Plummer - Last Filed: 04/20/18 18:39> General Exam <Tesfaye Harmon - Last Filed: 04/20/18 18:25> Limitations: no limitations <Melany Plummer - Last Filed: 04/20/18 18:39> - General Exam Comments Initial Comments: General: The patient is awake and alert, in no distress, and does not appear acutely ill. Eye: +3 mm pupils are equal, round and reactive to light, extra-ocular movements are intact. No nystagmus. There is normal conjunctiva bilaterally. No signs of icterus. Ears, nose, mouth and throat: There are moist mucous membranes and no oral lesions. Neck: The neck is supple, there is no tenderness or JVD. Cardiovascular: There is a regular rate and rhythm. No murmur, rub or gallop is appreciated. Respiratory: Respirations breath sounds are equal. Present in all low field. Significant expiratory wheeze and rhonchi. Gastrointestinal: Soft, non-distended, non-tender abdomen without masses or organomegaly noted. There is no rebound or guarding present. No CVA tenderness. Bowel sounds are unremarkable. Musculoskeletal: Normal ROM, no tenderness. Strength 5/5. Sensation intact. Pulses equal bilaterally 2+. Neurological: A&O x 3. CN II-XII intact, There are no obvious motor or sensory deficits. Coordination appears grossly intact. Speech is normal. Skin: Skin is warm and dry and no rashes or lesions are noted. Psychiatric: Cooperative, appropriate mood & affect, normal judgment. (Melany Plummer) Vital Signs 04/20/18 04/20/18 04/20/18 16:07 17:40 18:05 Temperature 98.3 F Pulse Rate 105 H 94 97 Respiratory 28 H 22 Rate Blood Pressure 141/73 125/88 O2 Sat by Pulse 94 L 91 L Oximetry 04/20/18 04/20/18 18:14 18:19 Temperature Pulse Rate 105 H 98 Respiratory Rate Blood Pressure O2 Sat by Pulse Oximetry EKG Findings - EKG Comments: EKG Findings:: A 12-lead EKG was performed and shows the following: Rate is 99bpm, and rhythm is normal sinus. There are normal QRS complexes and normal R- wave progression. ST segments have no elevation or depression, and [place] segments appear normal. <Melany Plummer - Last Filed: 04/20/18 18:39> Medical Decision Making - Lab Data Result diagrams: 04/20/18 17:00 04/20/18 17:00 <Tesfaye Harmon - Last Filed: 04/20/18 18:25> - Lab Data Result diagrams: 04/20/18 17:00 04/20/18 17:00 <Melany Plummer - Last Filed: 04/20/18 18:39> - Medical Decision Making Patient reevaluated by myself, Dr. Harmon. Patient still feels somewhat short of breath. Patient does have mild accessory muscle use and continued wheezing. Results reviewed. Case discussed with practitioner kana. Case also discussed with Dr. puentes, who will admit covering for Dr. Song Romano. (Tesfaye Harmon) 73-year-old male past history of COPD presented for shortness of breath. Physical examination findings consistent with COPD exacerbation. Laboratory studies reveal negative troponin. EKG within normal limits. No lower extremity edema. Patient did have a DuoNeb treatment with very minor improvement of air exchange. Patient oxygen saturation now 95% patient states he had slight improvement of shortness of breath after treatment. Patient given Solu-Medrol. Patient will be admitted for nebulized treatments as needed for shortness of breath and wheezing, steroids and antibiotics. Pt agreeable with admission. Denied questions at this time. Pt discharged in stable condition. (Melany Plummer) - Lab Data Lab Results 04/20/18 04/20/18 04/20/18 Range/Units 17:00 17:00 17:00 WBC 8.5 (3.8-10.6) k/uL RBC 4.10 L (4.30-5.90) m/uL Hgb 13.8 (13.0-17.5) gm/dL Hct 39.0 (39.0-53.0) % MCV 95.2 (80.0-100.0) fL MCH 33.6 (25.0-35.0) pg MCHC 35.3 (31.0-37.0) g/dL RDW 13.1 (11.5-15.5) % Plt Count 196 (150-450) k/uL Neutrophils % 68 % Lymphocytes % 14 % Monocytes % 7 % Eosinophils % 8 % Basophils % 1 % Neutrophils # 5.8 (1.3-7.7) k/uL Lymphocytes # 1.2 (1.0-4.8) k/uL Monocytes # 0.6 (0-1.0) k/uL Eosinophils # 0.7 (0-0.7) k/uL Basophils # 0.1 (0-0.2) k/uL PT (9.0-12.0) sec INR (<1.2) APTT (22.0-30.0) sec Sodium 138 (137-145) mmol/L Potassium 4.3 (3.5-5.1) mmol/L Chloride 107 (98-107) mmol/L Carbon Dioxide 24 (22-30) mmol/L Anion Gap 7 mmol/L BUN 21 H (9-20) mg/dL Creatinine 0.96 (0.66-1.25) mg/dL Est GFR (CKD-EPI)AfAm >90 (>60 ml/min/1.73 sqM) Est GFR (CKD-EPI)NonAf 79 (>60 ml/min/1.73 sqM) Glucose 101 H (74-99) mg/dL Calcium 9.1 (8.4-10.2) mg/dL Total Bilirubin 0.6 (0.2-1.3) mg/dL AST 18 (17-59) U/L ALT 33 (21-72) U/L Alkaline Phosphatase 59 (38-126) U/L Total Creatine Kinase 53 L (55-170) U/L CK-MB (CK-2) 1.5 (0.0-2.4) ng/mL CK-MB (CK-2) Rel Index 2.8 Troponin I <0.012 (0.000-0.034) ng/mL NT-Pro-B Natriuret Pep pg/mL Total Protein 6.2 L (6.3-8.2) g/dL Albumin 3.7 (3.5-5.0) g/dL 04/20/18 04/20/18 Range/Units 17:00 17:00 WBC (3.8-10.6) k/uL RBC (4.30-5.90) m/uL Hgb (13.0-17.5) gm/dL Hct (39.0-53.0) % MCV (80.0-100.0) fL MCH (25.0-35.0) pg MCHC (31.0-37.0) g/dL RDW (11.5-15.5) % Plt Count (150-450) k/uL Neutrophils % % Lymphocytes % % Monocytes % % Eosinophils % % Basophils % % Neutrophils # (1.3-7.7) k/uL Lymphocytes # (1.0-4.8) k/uL Monocytes # (0-1.0) k/uL Eosinophils # (0-0.7) k/uL Basophils # (0-0.2) k/uL PT 10.1 (9.0-12.0) sec INR 0.9 (<1.2) APTT 24.7 (22.0-30.0) sec Sodium (137-145) mmol/L Potassium (3.5-5.1) mmol/L Chloride (98-107) mmol/L Carbon Dioxide (22-30) mmol/L Anion Gap mmol/L BUN (9-20) mg/dL Creatinine (0.66-1.25) mg/dL Est GFR (CKD-EPI)AfAm (>60 ml/min/1.73 sqM) Est GFR (CKD-EPI)NonAf (>60 ml/min/1.73 sqM) Glucose (74-99) mg/dL Calcium (8.4-10.2) mg/dL Total Bilirubin (0.2-1.3) mg/dL AST (17-59) U/L ALT (21-72) U/L Alkaline Phosphatase (38-126) U/L Total Creatine Kinase (55-170) U/L CK-MB (CK-2) (0.0-2.4) ng/mL CK-MB (CK-2) Rel Index Troponin I (0.000-0.034) ng/mL NT-Pro-B Natriuret Pep 29 pg/mL Total Protein (6.3-8.2) g/dL Albumin (3.5-5.0) g/dL Disposition <Tesfaye Harmon - Last Filed: 04/20/18 18:25> Is patient prescribed a controlled substance at d/c from ED?: No Time of Disposition: 18:06 Decision to Admit Reason: Admit from EC Decision Date: 04/20/18 Decision Time: 18:06 <Melany Plummer - Last Filed: 04/20/18 18:39> Clinical Impression: COPD exacerbation, Shortness of breath, Hypoxia Disposition: ADMITTED IP TO THIS HOSP Condition: Stable Referrals: Frankie Wall DO [Primary Care Provider] - 1-2 days
[2018-04-20] MEDS ORDERED: AZITHROMYCIN 500 MG TAB PO STA (18:09)
[2018-04-20] MEDS: IPRATROPIUM-ALBUTEROL 3 ML NEB INHALATION PRN (18:13)
[2018-04-20 22:11] VITALS: BMI 26.4
[2018-04-21] MEDS: IPRATROPIUM-ALBUTEROL 3 ML NEB INHALATION PRN ×3 (01:28→11:25)
[2018-04-21] MEDS: SODIUM CHLORIDE 0.9% 1,000 ML IV SCH ×2 (06:27→19:32)
[2018-04-21 07:11] LABS: Glucose,Whole Blood 164 mg/dL (75-99)
[2018-04-21] MEDS ORDERED: predniSONE 20 MG TAB PO SCH (09:00)
[2018-04-21 11:28] LABS: Glucose,Whole Blood 144 mg/dL (75-99)
[2018-04-21] MEDS ORDERED: IPRATROPIUM-ALBUTEROL 3 ML NEB INHALATION PRN (13:43)
[2018-04-21] MEDS: IPRATROPIUM-ALBUTEROL 3 ML NEB INHALATION SCH ×2 (16:11→19:29)
[2018-04-21] MEDS: methylPREDNISolone SOD SUCCI 125 MG/2 ML VIAL IV SCH (17:16)
[2018-04-21 17:18] LABS: Glucose,Whole Blood 139 mg/dL (75-99)
[2018-04-21] MEDS: INSULIN ASPART (NovoLOG) 100 UNIT/ML VIAL SQ SCH ×2 (17:35→22:23)
[2018-04-21] MEDS ORDERED: AZITHROMYCIN 500 MG TAB PO SCH (18:00)
[2018-04-21] MEDS: BUDESONIDE 1 MG/2 ML NEBU INHALATION SCH (19:30)
[2018-04-21] MEDS: FORMOTEROL FUMARATE 20 MCG/2 ML NEBU INHALATION SCH (19:33)
[2018-04-21 20:21] LABS: Glucose,Whole Blood 214 mg/dL (75-99)
--- NOTE | 2018-04-21 20:54 | CONS ---
CONSULTATION Pulmonary consult dated April 21, 2018. This is a very pleasant 73-year-old male who sees Dr. Wall in [place] for his primary care physician. The patient states that he has a diagnosis of COPD. It was given to him by some physician when he lived in [place], [place]. Anyway comes into the hospital complaining of increasing shortness of breath for a couple days. The shortness of breath had been increasing in severity. The patient does have cough. Occasional phlegm production. Wheezing. No fever or chills. No chest pain or chest discomfort. The patient does not use oxygen at home and does have breathing medications at home. His medications at home include DuoNeb as well as albuterol inhaler and Symbicort. He also has Spiriva HandiHaler. Anyway, the patient has been here for less than a day and he is starting to feel better already. He is still smoking cigarettes. He apparently could not speak in full sentences when he first came, but he is able to speak now in full sentence. His current home medications are listed and include Eliquis, DuoNeb, Flomax, Ventolin, Symbicort, and Spiriva. He is also on Lopressor. ALLERGIES: LATEX. PAST MEDICAL HISTORY: Includes atrial fibrillation, COPD, and BPH. SURGICAL HISTORY: Including cataract surgery with lens implants. SOCIAL HISTORY: Positive for ongoing tobacco use. He has cut back his tobacco use significantly he tells me. He denies any alcohol use or illicit drug use. FAMILY HISTORY: Positive for dementia, atrial fibrillation, and myocardial infarction. REVIEW OF SYSTEMS: CONSTITUTIONAL: Negative. NEUROLOGIC: Negative. HEENT: Negative. CARDIOVASCULAR: Negative. PULMONARY: Shortness of breath, chest tightness, wheezing, cough, phlegm production. GI/: Negative. RHEUMATOLOGIC/HEMATOLOGIC: Negative. ENDOCRINOLOGIC/DERMATOLOGIC: Negative. PHYSICAL EXAMINATION: Current vital signs are reviewed. His temperature is 96.3, heart rate 106, respiratory rate is 15. His blood pressure is 123/74, mean 90, 2 L saturation 91-93 percent. Appears in no acute distress. HEENT examination is grossly unremarkable. Mucous membranes are moist. No oral lesions. NECK: Supple. Full range of motion. No adenopathy or thyromegaly. Neck veins are flat. Cardiovascular examination reveals regular rhythm rate. Mild tachycardia. Heart rate right around 100. S1, S2 normal. Lungs reveal diminished breath sounds. There is coarse expiratory rhonchi and wheezes. There is prolongation on forced maneuver. Breath sounds equal bilaterally but diminished throughout. Abdomen is soft. Bowel sounds are heard. Extremities are intact. No cyanosis, clubbing, or edema. Skin without rash. Neurologic examination is brief but nonfocal. LABS: Reviewed. White count 8.5, hemoglobin 13.8, hematocrit 39.0, platelet count 196,000. PT/INR and PTT all normal. Sodium 138, potassium 4.3, chloride 107, CO2 24, anion gap normal at 7, BUN and creatinine were 21 and 0.96. Glucose 101. Liver function tests looked pretty normal. A chest x-ray shows changes of COPD. There is some very minimal interstitial changes suggesting a possibility of interstitial fibrosis. Microbiologic studies are negative. Medications are reviewed. He is currently on Zithromax, DuoNeb, prednisone and a basic IV. ASSESSMENT: 1. Chronic obstructive pulmonary disease exacerbation complicated by purulent tracheobronchitis. 2. History of ongoing and chronic tobacco use. 3. History of atrial fibrillation. 4. History of benign prostatic hypertrophy. 5. Chronic hypoxemic respiratory failure. PLAN: Please see my orders. The patient was placed on DuoNeb q.i.d. p.r.n. We will also place the patient on Pulmicort and Perforomist twice a day. We will put the patient back on Solu-Medrol 60 mg q.6 hours. Oral antibiotics are fine. A nicotine patch will also be offered. Additional recommendations and suggestions are forthcoming. I can make one recommendation as it relates to his home medications. The patient should not be on Atrovent in his nebulizer machine and also taking Spiriva. The two anticholinergics compete against one another. One or the other would be okay. No additional recommendations are made. Will follow. MMODL / IJN: [id number] /
[2018-04-21] MEDS ORDERED: TAMSULOSIN 0.4 MG CAP.ER.24H PO SCH (21:00)
[2018-04-21 21:38] VITALS: RESP 16
[2018-04-21] MEDS: METOPROLOL TARTRATE 50 MG TAB PO SCH (22:23)
[2018-04-21] MEDS: APIXABAN 5 MG TAB PO SCH (22:24)
[2018-04-22] MEDS: methylPREDNISolone SOD SUCCI 125 MG/2 ML VIAL IV SCH ×3 (00:20→11:53)
--- NOTE | 2018-04-22 00:31 | P.HPIM ---
History of Present Illness H&P Date: 04/21/18 Chief Complaint: Shortness of breath Patient is a 73-year-old male with a known history of COPD, BPH and paroxysmal atrial fibrillation on anticoagulation came to ER with complaints of difficulty in breathing. Shortness of breath has been increasing for the past 2 days. Denied any, soft chest pain. No nausea vomiting. Patient does have cough with whitish to green sputum production. Patient felt like previous COPD exacerbations. Patient was wheezy and tight on admission and is unable to take deep breath. Patient is not on any home oxygen. No previous intubation in the past. Denied any recent illnesses. No sick contacts at home. No recent travel. Denied any leg swelling. Pulse ox was 91% on room air on admission. Patient was tachycardic on admission. Chest x-ray showed mild pulmonary fibrosis. No acute lung. No change. EKG showed normal sinus rhythm BNP 29 Review of Systems Constitutional: Patient denies any fever or chills . No generalized weakness or weight loss. Abdomen: Patient denied nausea vomiting and diarrhea and abdominal pain. Cardiovascular: Patient denies any chest pain or short of breath no palpitations. Respiratory: Patient does have cough with whitish sputum production. Shortness of breath Neurologic: Patient denied any numbness or tingling headache. Musculoskeletal: Patient denies any complaints of joint swelling or deformity. Skin: Negative Psychiatric: Negative Endocrine: No heat or cold intolerance. No recent weight gain. Genitourinary: No dysuria or hematuria. All other 14 point ROS negative except the above Past Medical History Past Medical History: Atrial Fibrillation, COPD, Prostate Disorder History of Any Multi-Drug Resistant Organisms: None Reported Past Surgical History: No Surgical Hx Reported Additional Past Surgical History / Comment(s): cataract -lens implants Past Anesthesia/Blood Transfusion Reactions: No Reported Reaction Additional Past Anesthesia/Blood Transfusion Reaction / Comment(s): has never received any blood transfusions Past Psychological History: No Psychological Hx Reported Additional Psychological History / Comment(s): lives with his . recently moved back here from [facility]. no home care services, no medical equipment. Smoking Status: Current every day smoker Past Alcohol Use History: None Reported Additional Past Alcohol Use History / Comment(s): started smoking age 12(1957) got up to 5 ppd for many years then cut down to 3 ppd and now 4-5 cig per day but none in last 2 days while not feeling well. Past Drug Use History: None Reported - Past Family History Mother Family Medical History: AFIB, Dementia Father Family Medical History: Myocardial Infarction ([place]) Additional Family Medical History / Comment(s): in his 70's [place] Medications and Allergies Home Medications Medication Instructions Recorded Confirmed Type Apixaban [Eliquis] 5 mg PO BID 03/24/18 04/20/18 History Ipratropium-Albuterol Nebulize 3 ml INHALATION RT-QID 03/24/18 04/20/18 History [Duoneb 0.5 mg-3 mg/3 ml Soln] Tamsulosin HCl [Flomax] 0.8 mg PO HS 03/24/18 04/20/18 History Metoprolol Tartrate [Lopressor] 50 mg PO BID #60 tab 04/04/18 04/20/18 Rx Albuterol Inhaler [Ventolin Hfa 1 - 2 puff INHALATION RT-QID PRN 04/20/18 History Inhaler] Budesonide-Formot 160-4.5 Mcg 2 puff INHALATION RT-BID 04/20/18 04/20/18 History [Symbicort 160-4.5 Mcg Inhaler] Tiotropium [place] [Spiriva] 1 cap INHALATION RT-DAILY 04/20/18 04/20/18 History Allergies Allergy/AdvReac Type Severity Reaction Status Date / Time latex Allergy Rash/Hives Verified 04/20/18 17:38 Physical Exam Vitals: Vital Signs Temp Pulse Pulse Resp BP BP Pulse Ox 04/21/18 11:39 98 04/21/18 11:27 100 04/21/18 07:42 106 H 04/21/18 07:27 108 H 04/21/18 07:10 96.3 F L 83 15 123/74 91 L 04/21/18 01:49 16 04/21/18 01:39 112 H 04/21/18 01:28 100 04/21/18 00:07 97.8 F 101 H 16 106/67 97 04/20/18 20:17 98.3 F 101 H 22 122/75 99 04/20/18 19:49 98.0 F 99 18 128/81 99 04/20/18 18:19 98 04/20/18 18:14 105 H 04/20/18 18:05 97 02/17/19 17:40 94 22 125/88 91 L 04/20/18 16:07 98.3 F 105 H 28 H 141/73 94 L Intake and Output 04/20/18 04/21/18 04/21/18 22:59 06:59 14:59 Intake Total 1240 Balance 1240 Intake: Oral 1240 Other: # Voids 1 3 Weight 72.575 kg PHYSICAL EXAMINATION: Patient is lying in the bed comfortably, no acute distress, awake alert and oriented.. HEENT: Normocephalic. Neck is supple. Pupils reactive. Nostrils clear. Oral cavity is moist. Ears reveal no drainage. Neck reveals no JVD, carotid bruits, or thyromegaly. CHEST EXAMINATION: Trachea is central. Symmetrical expansion. Bilateral air entry. Prolonged expiration. Mild expiratory wheeze.. CARDIAC: Normal S1, S2 with no gallops. No murmurs ABDOMEN: Soft. Bowel sounds normal. No organomegaly. No abdominal bruits. Extremities: reveal no edema. No clubbing or cyanosis Neurologically awake, alert, oriented x3 with well-coordinated movements. No focal deficits noted Skin: No rash or skin lesions. Psychiatric: Coperative. Nonsuicidal Musculoskeletal: No joint swelling or deformity. Normal range of motion. Results CBC & Chem 7: 04/20/18 17:00 04/20/18 17:00 Labs: Abnormal Lab Results - Last 24 Hours (Table) 04/20/18 04/20/18 04/20/18 Range/Units 17:00 17:00 17:00 RBC 4.10 L (4.30-5.90) m/uL BUN 21 H (9-20) mg/dL Glucose 101 H (74-99) mg/dL POC Glucose (mg/dL) (75-99) mg/dL Total Creatine Kinase 53 L (55-170) U/L Total Protein 6.2 L (6.3-8.2) g/dL 04/21/18 04/21/18 Range/Units 07:00 11:16 RBC (4.30-5.90) m/uL BUN (9-20) mg/dL Glucose (74-99) mg/dL POC Glucose (mg/dL) 164 H 144 H (75-99) mg/dL Total Creatine Kinase (55-170) U/L Total Protein (6.3-8.2) g/dL Thrombosis Risk Factor Assmnt - DVT/VTE Prophylaxis DVT/VTE Prophylaxis: Pharmacologic Prophylaxis ordered - Choose All That Apply Any of the Below Risk Factors Present?: No Other Risk Factors: Yes Each Risk Factor Represents 2 Points: Age 61-74 years Other congenital or acquired thrombophilia - If yes, enter type in comment: No Thrombosis Risk Factor Assessment Total Risk Factor Score: 2 Thrombosis Risk Factor Assessment Level: Low Risk Assessment and Plan Assessment: Acute COPD exacerbation with tracheobronchitis Ongoing Nicotine addiction Progress by defibrillation on anticoagulation BPH Plan: Patient will be continued on DuoNeb's,. Pulmicort and Perforomist was added. Continue with azithromycin. Continue with the home medications including anticoagulation with Eliquis. Pulmonary was consulted. Further recommendations based on the clinical course. Smoking cessation has been counseled extensively. Time with Patient: Greater than 30
[2018-04-22 07:08] LABS: Glucose,Whole Blood 134 mg/dL (75-99)
[2018-04-22 07:27] VITALS: BP 128/79; TEMP 98
[2018-04-22] MEDS: IPRATROPIUM-ALBUTEROL 3 ML NEB INHALATION SCH ×2 (07:31→11:00)
[2018-04-22] MEDS: FORMOTEROL FUMARATE 20 MCG/2 ML NEBU INHALATION SCH (07:31)
[2018-04-22] MEDS: BUDESONIDE 1 MG/2 ML NEBU INHALATION SCH (07:31)
[2018-04-22] MEDS: METOPROLOL TARTRATE 50 MG TAB PO SCH (07:41)
[2018-04-22] MEDS: APIXABAN 5 MG TAB PO SCH (07:41)
[2018-04-22] MEDS: INSULIN ASPART (NovoLOG) 100 UNIT/ML VIAL SQ SCH ×2 (07:42→12:26)
[2018-04-22 11:12] VITALS: PULSE 84
[2018-04-22 11:59] LABS: Glucose,Whole Blood 116 mg/dL (75-99)
[2018-04-22] MEDS ORDERED: predniSONE 50 MG TAB PO STA (13:48)
--- NOTE | 2018-04-22 14:31 | P.PN ---
Subjective Progress Note Date: 04/22/18 Principal diagnosis: Acute exacerbation of chronic obstructive pulmonary disease complicated with purulent tracheobronchitis This is 73-year-old white male patient with past medical history of ongoing chronic tobacco use, history of atrial fibrillation on Eliquis, history of COPD , on chronic hypercapnic respiratory failure, BPH, who was admitted to the hospital On 04/20/2018 severe shortness of breath, cough, congestion and acute exacerbation of COPD. Chest x-ray showed no acute lung disease, slight coarsening of interstitial markings. Today we seen the patient in follow-up patient is sitting up in bed, in no acute distress, he states his breathing is improving, he is on room air, and the pulse ox is 93%, no fever or chills, lung sounds are diminished, no rhonchi or wheezing noted, respirations are even and nonlabored, significant coughing or phlegm production. No chest pain. He has been treated with IV steroids, nebulized bronchodilators, and empiric antibiotics, he is doing well, and from pulmonary perspective he is stable for discharge home today. Objective - Vital Signs Vital signs: Vital Signs Temp 98.0 F 04/22/18 07:00 Pulse 84 04/22/18 11:11 Resp 16 04/22/18 07:20 BP 128/79 04/22/18 07:00 Pulse Ox 93 L 04/22/18 07:31 Intake & Output 04/21/18 04/22/18 04/22/18 18:59 06:59 18:59 Intake Total 1720 1080 476 Balance 1720 1080 476 Intake: Oral 1720 1080 476 Other: Voiding Method Toilet Toilet # Voids 3 2 - Exam GENERAL EXAM: Alert, pleasant, 73-year-old white male, comfortable in no apparent distress. HEAD: Normocephalic/atraumatic. EYES: Normal reaction of pupils, equal size. Conjunctiva pink, sclera white. NOSE: Clear with pink turbinates. THROAT: No erythema or exudates. NECK: No masses, no JVD, no thyroid enlargement, no adenopathy. CHEST: No chest wall deformity. Symmetrical expansion. LUNGS: Equal air entry with diminished breath sounds CVS: Regular rate and rhythm, normal S1 and S2, no gallops, no murmurs, no rubs ABDOMEN: Soft, nontender. No hepatosplenomegaly, normal bowel sounds, no guarding or rigidity. EXTREMITIES: No clubbing, no edema, no cyanosis, 2+ pulses and upper and lower extremities. MUSCULOSKELETAL: Muscle strength and tone normal. SPINE: No scoliosis or deformity SKIN: No rashes CENTRAL NERVOUS SYSTEM: Alert and oriented -3. No focal deficits, tone is normal in all 4 extremities. PSYCHIATRIC: Alert and oriented -3. Appropriate affect. Intact judgment and insight. - Labs CBC & Chem 7: 04/20/18 17:00 04/20/18 17:00 Labs: Abnormal Lab Results - Last 24 Hours (Table) 04/21/18 04/21/18 04/22/18 Range/Units 17:05 20:10 06:56 POC Glucose (mg/dL) 139 H 214 H 134 H (75-99) mg/dL 04/22/18 Range/Units 11:43 POC Glucose (mg/dL) 116 H (75-99) mg/dL Assessment and Plan Plan: Assessment: #1. Acute exacerbation of chronic obstructive pulmonary disease complicated by purulent tracheal bronchitis, improving #2. Chronic ongoing and chronic tobacco use #3. Chronic atrial fibrillation, on Eliquis #4. History of benign prostatic hypertrophy #5. Chronic hypoxemic respiratory failure Plan: Patient is doing well, continues to improve, tolerating ablation, maintaining oxygenation on room air. No worsening dyspnea, no chest pain, no fever or chills, from pulmonary perspective he stable for discharge home today. Smoking cessation counseling was done. Patient can resume his home inhalers and nebulized treatments, follow-up with Dr. Novak in the office in one week I performed a history & physical examination of the patient and discussed their management with my nurse practitioner, Coleen Worley. I reviewed the nurse practitioner's note and agree with the documented findings and plan of care. Lung sounds are positive for diminished breath sounds. The findings and the impression was discussed with the patient. I attest to the documentation by the nurse practitioner. Time with Patient: Less than 30
--- NOTE | 2018-04-22 23:26 | P.DS ---
Providers Date of admission: 04/20/18 18:06 Expected date of discharge: 04/22/18 Attending physician: Rober Lopez MD Consults: 04/20/18 18:06 Consult Physician Routine Consulting Provider: Flakita Arvizu Consult Reason/Comments: COPD, hypoxia Do you want consulting provider notified?: Yes, Notify in am Primary care physician: Frankie Wall Hospital Course: Discharge diagnosis Acute COPD exacerbation with tracheobronchitis Ongoing Nicotine addiction Progress by defibrillation on anticoagulation BPH Hospital course Patient is a 73-year-old male with a known history of COPD, BPH and paroxysmal atrial fibrillation on anticoagulation came to ER with complaints of difficulty in breathing. Shortness of breath has been increasing for the past 2 days. Denied any, soft chest pain. No nausea vomiting. Patient does have cough with whitish to green sputum production. Patient felt like previous COPD exacerbations. Patient was wheezy and tight on admission and is unable to take deep breath. Patient is not on any home oxygen. No previous intubation in the past. Denied any recent illnesses. No sick contacts at home. No recent travel. Denied any leg swelling. Pulse ox was 91% on room air on admission. Patient was tachycardic on admission. Chest x-ray showed mild pulmonary fibrosis. No acute lung. No change. EKG showed normal sinus rhythm BNP 29 Plan: Patient was continued on DuoNeb's,. Pulmicort and Perforomist was added. Continue with azithromycin. Continue with the home medications including anticoagulation with Eliquis. Patient was seen by pulmonary. Smoking cessation has been counseled extensively. Patient did improve with elevated level management. Patient was advised to stop Spiriva if he is using DuoNeb inhalation. Patient is otherwise stable to be discharged home. Saturating well on room air. Breathing is much easier. Patient is able to ambulate in the hallway without shortness of breath. Discharge physical examination was done and vitals reviewed Vital Signs - 24 hr 04/21/18 04/22/18 04/22/18 23:47 00:46 07:00 Temperature 97.7 F 98.0 F Pulse Rate Pulse Rate [ 87 94 Pulse Oximetery ] Respiratory 16 16 16 Rate Blood Pressure 130/82 128/79 [Left Arm] O2 Sat by Pulse 95 90 L Oximetry 04/22/18 04/22/18 04/22/18 07:20 07:31 07:42 Temperature Pulse Rate 84 88 Pulse Rate [ Pulse Oximetery ] Respiratory 16 Rate Blood Pressure [Left Arm] O2 Sat by Pulse 93 L Oximetry 04/22/18 04/22/18 04/22/18 07:43 07:58 11:00 Temperature Pulse Rate 88 92 88 Pulse Rate [ Pulse Oximetery ] Respiratory Rate Blood Pressure [Left Arm] O2 Sat by Pulse Oximetry 04/22/18 11:11 Temperature Pulse Rate 84 Pulse Rate [ Pulse Oximetery ] Respiratory Rate Blood Pressure [Left Arm] O2 Sat by Pulse Oximetry Patient Condition at Discharge: Stable Plan - Discharge Summary Discharge Rx Participant: No New Discharge Prescriptions: New Azithromycin [Zithromax] 500 mg PO DAILY@1800 #3 tab predniSONE See Taper PO DIRECTED #30 tab Continue Ipratropium-Albuterol Nebulize [Duoneb 0.5 mg-3 mg/3 ml Soln] 3 ml INHALATION RT-QID Apixaban [Eliquis] 5 mg PO BID Tamsulosin HCl [Flomax] 0.8 mg PO HS Metoprolol Tartrate [Lopressor] 50 mg PO BID #60 tab Budesonide-Formot 160-4.5 Mcg [Symbicort 160-4.5 Mcg Inhaler] 2 puff INHALATION RT-BID Albuterol Inhaler [Ventolin Hfa Inhaler] 1 - 2 puff INHALATION RT-QID PRN PRN Reason: Shortness Of Breath Or Wheezing Discontinued Tiotropium [place] [Spiriva] 1 cap INHALATION RT-DAILY Discharge Medication List Apixaban [Eliquis] 5 mg PO BID 03/24/18 [History] Ipratropium-Albuterol Nebulize [Duoneb 0.5 mg-3 mg/3 ml Soln] 3 ml INHALATION RT -QID 03/24/18 [History] Tamsulosin HCl [Flomax] 0.8 mg PO HS 03/24/18 [History] Metoprolol Tartrate [Lopressor] 50 mg PO BID #60 tab 04/04/18 [Rx] Albuterol Inhaler [Ventolin Hfa Inhaler] 1 - 2 puff INHALATION RT-QID PRN [History] Budesonide-Formot 160-4.5 Mcg [Symbicort 160-4.5 Mcg Inhaler] 2 puff INHALATION RT-BID 04/20/18 [History] Azithromycin [Zithromax] 500 mg PO DAILY@1800 #3 tab 04/22/18 [Rx] predniSONE See Taper PO DIRECTED #30 tab 04/22/18 [Rx] Follow up Appointment(s)/Referral(s): Frankie Wall DO [Primary Care Provider] - 1-2 days Patient Instructions/Handouts: COPD (Chronic Obstructive Pulmonary Disease) (DC ) Discharge Disposition: HOME SELF-CARE
== END 2018-04-22 14:06 | disposition home or self-care (01) ==
LOC: EC 16:04 → 4SSUR 18:06
PROVIDERS: ADMIT Internal Medicine; ATTEND Internal Medicine
DX: J44.1 Chronic obstructive pulmonary disease with (acute) exacerbation (principal); J44.0 Chronic obstructive pulmonary disease with (acute) lower respiratory infection; J20.9 Acute bronchitis, unspecified; I48.0 Paroxysmal atrial fibrillation; N40.0 Benign prostatic hyperplasia without lower urinary tract symptoms; F17.210 Nicotine dependence, cigarettes, uncomplicated; J84.10 Pulmonary fibrosis, unspecified; Z96.1 Presence of intraocular lens; J96.11 Chronic respiratory failure with hypoxia; J96.12 Chronic respiratory failure with hypercapnia; Z71.6 Tobacco abuse counseling; Z79.01 Long term (current) use of anticoagulants; Z79.51 Long term (current) use of inhaled steroids; Z79.899 Other long term (current) drug therapy; Z82.49 Family history of ischemic heart disease and other diseases of the circulatory system; Z81.8 Family history of other mental and behavioral disorders
CPT/HCPCS: 96376 ×2; 96361; 96374; 99285; 36415; 94640 ×6; 94760; 93005; 83880; 80053; 82550; 82553; 84484; 85025; 85610; 85730; 71046; G0378 ×3; J2930 ×3; J7512

== ENCOUNTER 2018-04-29 10:28 | Inpatient (IN) | payer MEDICARE ==
[2018-04-29] MEDS ORDERED: ALBUTEROL NEBULIZED 2.5 MG/3 ML INHALATION STA (10:59)
[2018-04-29] MEDS ORDERED: methylPREDNISolone SOD SUCCI 125 MG/2 ML VIAL IV STA (10:59)
[2018-04-29] MEDS ORDERED: SODIUM CHLORIDE 0.9% 500 ML 500 ML IV STA (10:59)
--- NOTE | 2018-04-29 11:04 | ED ---
General Adult HPI - General Chief complaint: Shortness of Breath Stated complaint: cough/SOB Time Seen by Provider: 04/29/18 10:30 Source: patient, RN notes reviewed Mode of arrival: wheelchair Limitations: no limitations - History of Present Illness Initial comments: This is a 73-year-old male who presents emergency Department with a past medical history significant for COPD. Patient states about 1:30 this morning he started having difficulty breathing is gotten progressively worse since that time. Patient states he's had a cough but is no worse than normal. Patient denies any chest pain or palpitation. Patient denies any fever chills. Patient states he continues to smoke. Patient denies headache patient denies numbness weakness per patient denies lightheadedness dizziness or near-syncopal episode. Patient denies abdominal pain patient denies nausea vomiting diarrhea. Patient denies any leg swelling or calf tenderness. - Related Data Home Medications Medication Instructions Recorded Confirmed Apixaban [Eliquis] 5 mg PO BID 03/24/18 04/29/18 Ipratropium-Albuterol Nebulize 3 ml INHALATION RT-QID 03/24/18 04/29/18 [Duoneb 0.5 mg-3 mg/3 ml Soln] Tamsulosin HCl [Flomax] 0.8 mg PO HS 03/24/18 04/29/18 Albuterol Inhaler [Ventolin Hfa 1 - 2 puff INHALATION RT-QID PRN 04/20/18 Inhaler] Budesonide-Formot 160-4.5 Mcg 2 puff INHALATION RT-BID 04/20/18 04/29/18 [Symbicort 160-4.5 Mcg Inhaler] Acetaminophen [Tylenol Extra 500 mg PO Q6H PRN 04/29/18 04/29/18 Strength] Previous Rx's Medication Instructions Recorded Metoprolol Tartrate [Lopressor] 50 mg PO BID #60 tab 04/04/18 predniSONE See Taper PO DIRECTED #30 tab 04/22/18 Allergies Allergy/AdvReac Type Severity Reaction Status Date / Time latex Allergy Rash/Hives Verified 04/29/18 10:52 Review of Systems ROS Statement: Those systems with pertinent positive or pertinent negative responses have been documented in the HPI. ROS Other: All systems not noted in ROS Statement are negative. Past Medical History Past Medical History: Atrial Fibrillation, COPD, Prostate Disorder History of Any Multi-Drug Resistant Organisms: None Reported Past Surgical History: No Surgical Hx Reported Additional Past Surgical History / Comment(s): cataract -lens implants Past Anesthesia/Blood Transfusion Reactions: No Reported Reaction Additional Past Anesthesia/Blood Transfusion Reaction / Comment(s): has never received any blood transfusions Past Psychological History: No Psychological Hx Reported Smoking Status: Current every day smoker Past Alcohol Use History: None Reported Past Drug Use History: None Reported - Past Family History Mother Family Medical History: AFIB, Dementia Father Family Medical History: Myocardial Infarction ([place]) Additional Family Medical History / Comment(s): in his 70's from [place] General Exam - General Exam Comments Initial Comments: GENERAL: Patient is well-developed and well-nourished. Patient is nontoxic and well- hydrated and is in mild distress. ENT: Neck is soft and supple. No significant lymphadenopathy is noted. Oropharynx is clear. Moist mucous membranes. Neck has full range of motion without eliciting any pain. EYES: The sclera were anicteric and conjunctiva were pink and moist. Extraocular movements were intact and pupils were equal round and reactive to light. Eyelids were unremarkable. PULMONARY: Patient is wheezing diffusely. CARDIOVASCULAR: There is a regular rate and rhythm without any murmurs gallops or rubs. ABDOMEN: Soft and nontender with normal bowel sounds. No palpable organomegaly was noted. There is no palpable pulsatile mass. SKIN: Skin is clear with no lesions or rashes and otherwise unremarkable. NEUROLOGIC: Patient is alert and oriented x3. Cranial nerves II through XII are grossly intact. Motor and sensory are also intact. Normal speech, volume and content. Symmetrical smile. MUSCULOSKELETAL: Normal extremities with adequate strength and full range of motion. LYMPHATICS: No significant lymphadenopathy is noted PSYCHIATRIC: Normal psychiatric evaluation. Limitations: no limitations Course Vital Signs 04/29/18 04/29/18 04/29/18 10:33 11:19 11:32 Temperature 97.9 F Pulse Rate 98 101 H 117 H Respiratory 30 H Rate Blood Pressure 135/71 O2 Sat by Pulse 95 Oximetry 04/29/18 04/29/18 04/29/18 11:50 12:13 12:32 Temperature 99.4 F Pulse Rate 112 H Respiratory 28 H 24 Rate Blood Pressure 131/87 120/74 O2 Sat by Pulse 93 L Oximetry 04/29/18 12:35 Temperature Pulse Rate Respiratory 26 H Rate Blood Pressure O2 Sat by Pulse 94 L Oximetry Medical Decision Making - Medical Decision Making EKG shows normal sinus rhythm at 70 bpm FL interval is 172 QRS is 82 QT interval 390 QTC is 421. Patient's EKG shows no ST segment elevation or depression no T-wave abnormalities are noted. EKG shows sinus tachycardia 112 bpm FL interval 148 QRS is 82 QT interval 3:30 QTC is 450. Patient's EKG shows no ST segment elevation or depression or T- wave abdomen is noted. Chest x-ray shows no acute abnormality. Patient was given 3 consecutive breathing treatments and continued to have difficulty breathing and have x-ray wheezing. Patient also received steroids in the emergency department. Patient continues to wheeze diffusely. I ordered BiPAP for the patient. I spoke with [facility] hospitalist and they agreed to admit the patient admitted the patient I consulted pulmonary neck continued the BiPAP steroids and albuterol treatments on the floor - Lab Data Result diagrams: 04/29/18 11:31 04/29/18 11:31 Lab Results 04/29/18 04/29/18 04/29/18 Range/Units 11:31 11:31 11:31 WBC 11.7 H (3.8-10.6) k/uL RBC 4.58 (4.30-5.90) m/uL Hgb 14.5 (13.0-17.5) gm/dL Hct 44.6 (39.0-53.0) % MCV 97.2 (80.0-100.0) fL MCH 31.5 (25.0-35.0) pg MCHC 32.4 (31.0-37.0) g/dL RDW 13.5 (11.5-15.5) % Plt Count 228 (150-450) k/uL Neutrophils % 76 % Lymphocytes % 12 % Monocytes % 7 % Eosinophils % 3 % Basophils % 0 % Neutrophils # 8.8 H (1.3-7.7) k/uL Lymphocytes # 1.4 (1.0-4.8) k/uL Monocytes # 0.9 (0-1.0) k/uL Eosinophils # 0.3 (0-0.7) k/uL Basophils # 0.1 (0-0.2) k/uL PT 9.9 (9.0-12.0) sec INR 0.9 (<1.2) APTT 22.8 (22.0-30.0) sec Sodium 138 (137-145) mmol/L Potassium 4.2 (3.5-5.1) mmol/L Chloride 102 (98-107) mmol/L Carbon Dioxide 29 (22-30) mmol/L Anion Gap 7 mmol/L BUN 25 H (9-20) mg/dL Creatinine 1.01 (0.66-1.25) mg/dL Est GFR (CKD-EPI)AfAm 85 (>60 ml/min/1.73 sqM) Est GFR (CKD-EPI)NonAf 74 (>60 ml/min/1.73 sqM) Glucose 84 (74-99) mg/dL Calcium 9.1 (8.4-10.2) mg/dL Magnesium 1.9 (1.6-2.3) mg/dL Total Bilirubin 0.5 (0.2-1.3) mg/dL AST 18 (17-59) U/L ALT 40 (21-72) U/L Alkaline Phosphatase 64 (38-126) U/L Troponin I (0.000-0.034) ng/mL Total Protein 6.2 L (6.3-8.2) g/dL Albumin 3.8 (3.5-5.0) g/dL 04/29/18 Range/Units 11:31 WBC (3.8-10.6) k/uL RBC (4.30-5.90) m/uL Hgb (13.0-17.5) gm/dL Hct (39.0-53.0) % MCV (80.0-100.0) fL MCH (25.0-35.0) pg MCHC (31.0-37.0) g/dL RDW (11.5-15.5) % Plt Count (150-450) k/uL Neutrophils % % Lymphocytes % % Monocytes % % Eosinophils % % Basophils % % Neutrophils # (1.3-7.7) k/uL Lymphocytes # (1.0-4.8) k/uL Monocytes # (0-1.0) k/uL Eosinophils # (0-0.7) k/uL Basophils # (0-0.2) k/uL PT (9.0-12.0) sec INR (<1.2) APTT (22.0-30.0) sec Sodium (137-145) mmol/L Potassium (3.5-5.1) mmol/L Chloride (98-107) mmol/L Carbon Dioxide (22-30) mmol/L Anion Gap mmol/L BUN (9-20) mg/dL Creatinine (0.66-1.25) mg/dL Est GFR (CKD-EPI)AfAm (>60 ml/min/1.73 sqM) Est GFR (CKD-EPI)NonAf (>60 ml/min/1.73 sqM) Glucose (74-99) mg/dL Calcium (8.4-10.2) mg/dL Magnesium (1.6-2.3) mg/dL Total Bilirubin (0.2-1.3) mg/dL AST (17-59) U/L ALT (21-72) U/L Alkaline Phosphatase (38-126) U/L Troponin I <0.012 (0.000-0.034) ng/mL Total Protein (6.3-8.2) g/dL Albumin (3.5-5.0) g/dL Critical Care Time Critical Care Time: Yes Total Critical Care Time: 35 Disposition Clinical Impression: Acute exacerbation of chronic obstructive airways disease Disposition: ADMITTED IP TO THIS HOSP Referrals: Frankie Wall DO [Primary Care Provider] - 1-2 days Time of Disposition: 12:41
[2018-04-29 11:48] LABS: Basophils # (A) 0.1 k/uL (0-0.2); Basophils % (A) 0 %; Eosinophils # (A) 0.3 k/uL (0-0.7); Eosinophils % (A) 3 %; HCT 44.6 % (39.0-53.0); HGB 14.5 gm/dL (13.0-17.5); Lymphocytes # (A) 1.4 k/uL (1.0-4.8); Lymphocytes % (A) 12 %; MCH 31.5 pg (25.0-35.0); MCHC 32.4 g/dL (31.0-37.0); MCV 97.2 fL (80.0-100.0); Mean Platelet Volume 6.7; Monocytes # (A) 0.9 k/uL (0-1.0); Monocytes % (A) 7 %; Neutrophils # (A) 8.8 k/uL (1.3-7.7); Neutrophils % (A) 76 %; Platelet Count 228 k/uL (150-450); RBC 4.58 m/uL (4.30-5.90); RDW 13.5 % (11.5-15.5); WBC 11.7 k/uL (3.8-10.6)
[2018-04-29 12:01] LABS: INR 0.9 (<1.2); Partial Thromboplastin Time 22.8 sec (22.0-30.0); Prothrombin Time 9.9 sec (9.0-12.0)
[2018-04-29 12:04] LABS: Albumin 3.8 g/dL (3.5-5.0); Calcium 9.1 mg/dL (8.4-10.2); Magnesium 1.9 mg/dL (1.6-2.3); Potassium 4.2 mmol/L (3.5-5.1); Total Bilirubin 0.5 mg/dL (0.2-1.3); Total Protein 6.2 g/dL (6.3-8.2)
--- NOTE | 2018-04-29 12:16 | XR ---
EXAMINATION TYPE: XR chest 2V DATE OF EXAM: 04/29/2018 COMPARISON: Prior chest x-ray 04/20/2018 HISTORY: Cough, difficulty breathing TECHNIQUE: Frontal and lateral views of the chest are obtained. FINDINGS: There are cardiac leads. Mild prominence of interstitium suspected. There is no focal air s pace opacity, pleural effusion, or pneumothorax seen. Stable nodular density is present between the anterior first and second ribs. The cardiac silhouette size is within normal limits. The osseous st ructures are intact. IMPRESSION: Indeterminate right upper lobe pulmonary nodule. Follow-up suggested. Interstitial lung disease is again noted.
[2018-04-29] MEDS ORDERED: LORazepam 2 MG/ML INJ IV STA (12:38)
[2018-04-29] MEDS ORDERED: IPRATROPIUM-ALBUTEROL 3 ML NEB INHALATION PRN (12:41)
--- NOTE | 2018-04-29 17:06 | P.CNPUL ---
History of Present Illness Consult date: 04/29/18 Reason for consult: dyspnea Chief complaint: Shortness of breath, cough. History of present illness: This is a 73-year-old white male patient, with past medical history of atrial fibrillation, COPD, current every day smoker, and BPH, who came into the hospital on 04/29/2018 with worsening shortness of breath, cough, chest tightness, wheezing. His cough is nonproductive. His symptoms started about 1: 00 in the morning. Patient denied any fever or chills, denied any chest pain, or palpitations, no headaches, no dizziness or lightheadedness. No abdominal pain, no nausea or vomiting or diarrhea. He is on chronic anticoagulation in the form of Eliquis, he is on DuoNeb nebulized treatments at home, Spiriva, and Symbicort. He was recently hospitalized for acute exacerbation of COPD, was discharged home on 2018. He was supposed to follow up with Dr. Yang in the office. Unfortunately patient continues to smoke, and carries over 60 year smoking history up to 5 packs a day, currently down to less than half a pack a day. Patient was supposed to see Dr. Yang in follow-up, however he is not sure if the appointment had been set up, and he never made it to the clinic to see the doctor. He did see Dr. Wall after his last hospitalization. He was completing his prednisone taper, down to 20 mg daily. Chest x-ray was completed and showed indeterminate right upper lobe pulmonary nodule and interstitial lung disease again noted. Labs did not show any significant leukocytosis, white blood cell count was 11.7, hemoglobin was 14.5, electrolytes were within normal limits, BUN was 25 and creatinine was 1.01, LFTs were within normal limits, troponin was negative. Patient was in severe respiratory distress, and had to be placed on BiPAP support, was given breathing treatments, and IV steroids, and was able to come off the BiPAP, currently on nasal cannula. Review of Systems All systems: negative Constitutional: Denies chills, Denies fever Eyes: denies blurred vision, denies pain Ears, nose, mouth and throat: Denies headache, Denies sore throat Cardiovascular: Reports decreased exercise tolerance, Reports dyspnea on exertion, Denies chest pain, Denies shortness of breath Respiratory: Reports dyspnea, Reports respiratory infections, Reports wheezing, Denies cough Gastrointestinal: Denies abdominal pain, Denies diarrhea, Denies nausea, Denies vomiting Musculoskeletal: Denies myalgias Integumentary: Denies pruritus, Denies rash Neurological: Denies numbness, Denies weakness Psychiatric: Denies anxiety, Denies depression Endocrine: Denies fatigue, Denies weight change Past Medical History Past Medical History: Atrial Fibrillation, COPD, Prostate Disorder Additional Past Medical History / Comment(s): Paroxysmal Afib, BPH History of Any Multi-Drug Resistant Organisms: None Reported Past Surgical History: No Surgical Hx Reported Additional Past Surgical History / Comment(s): Bilateral cataract removals-lens implants, colonoscpoy Past Anesthesia/Blood Transfusion Reactions: No Reported Reaction Additional Past Anesthesia/Blood Transfusion Reaction / Comment(s): has never received any blood transfusions Smoking Status: Current every day smoker - Past Family History Mother Family Medical History: AFIB, Dementia Father Family Medical History: Myocardial Infarction ([place]) Additional Family Medical History / Comment(s): in his 70's [place] Medications and Allergies Home Medications Medication Instructions Recorded Confirmed Type Apixaban [Eliquis] 5 mg PO BID 03/24/18 04/29/18 History Ipratropium-Albuterol Nebulize 3 ml INHALATION RT-QID 03/24/18 04/29/18 History [Duoneb 0.5 mg-3 mg/3 ml Soln] Tamsulosin HCl [Flomax] 0.8 mg PO HS 03/24/18 04/29/18 History Metoprolol Tartrate [Lopressor] 50 mg PO BID #60 tab 04/04/18 04/29/18 Rx Albuterol Inhaler [Ventolin Hfa 1 - 2 puff INHALATION RT-QID PRN 04/20/18 History Inhaler] Budesonide-Formot 160-4.5 Mcg 2 puff INHALATION RT-BID 04/20/18 04/29/18 History [Symbicort 160-4.5 Mcg Inhaler] predniSONE See Taper PO DIRECTED #30 tab 04/22/18 04/29/18 Rx Acetaminophen [Tylenol Extra 500 mg PO Q6H PRN 04/29/18 04/29/18 History Strength] Allergies Allergy/AdvReac Type Severity Reaction Status Date / Time latex Allergy Rash/Hives Verified 04/29/18 10:52 Physical Exam Vitals: Vital Signs Temp Pulse Resp BP Pulse Ox 04/29/18 14:49 111 H 24 93 L 04/29/18 14:00 24 94 L 04/29/18 13:56 121 H 26 H 133/83 94 L 04/29/18 13:24 118 H 04/29/18 13:12 117 H 04/29/18 12:35 26 H 94 L 04/29/18 12:32 120/74 04/29/18 12:13 99.4 F 112 H 24 131/87 93 L 04/29/18 11:50 28 H 04/29/18 11:32 117 H 04/29/18 11:19 101 H 04/29/18 10:33 97.9 F 98 30 H 135/71 95 Intake and Output 04/29/18 04/29/18 04/29/18 06:59 14:59 22:59 Other: Weight 72.575 kg GENERAL EXAM: Alert, pleasant, 73-year-old white male, currently at 3 L per nasal cannula and patient has conversational dyspnea HEAD: Normocephalic/atraumatic. EYES: Normal reaction of pupils, equal size. Conjunctiva pink, sclera white. NOSE: Clear with pink turbinates. THROAT: No erythema or exudates. NECK: No masses, no JVD, no thyroid enlargement, no adenopathy. CHEST: No chest wall deformity. Symmetrical expansion. LUNGS: Equal air entry with diffuse wheezes throughout the lung meyers CVS: Regular rate and rhythm, normal S1 and S2, no gallops, no murmurs, no rubs ABDOMEN: Soft, nontender. No hepatosplenomegaly, normal bowel sounds, no guarding or rigidity. EXTREMITIES: No clubbing, no edema, no cyanosis, 2+ pulses and upper and lower extremities. MUSCULOSKELETAL: Muscle strength and tone normal. SPINE: No scoliosis or deformity SKIN: No rashes CENTRAL NERVOUS SYSTEM: Alert and oriented -3. No focal deficits, tone is normal in all 4 extremities. PSYCHIATRIC: Alert and oriented -3. Appropriate affect. Intact judgment and insight. Results - Laboratory Findings CBC and BMP: 04/29/18 11:31 04/29/18 11:31 PT/INR, D-dimer PT 9.9 sec (9.0-12.0) 04/29/18 11:31 INR 0.9 (<1.2) 04/29/18 11:31 Abnormal lab findings: Abnormal Labs 04/29/18 04/29/18 11:31 11:31 WBC 11.7 H Neutrophils # 8.8 H BUN 25 H Total Protein 6.2 L - Diagnostic Findings Chest x-ray: report reviewed, image reviewed Additional studies: EKG reviewed Assessment and Plan Plan: Assessment: #1. Acute exacerbation of chronic obstructive pulmonary disease, chest x-ray did not show any acute abnormality, showed mildly prominent interstitium previously seen on previous chest x-rays and right upper lobe nodule. #2. Recent hospitalization for COPD exacerbation #3. Paroxysmal atrial fibrillation, on chronic anticoagulation with Eliquis, in sinus tachycardia currently #4. Chronic and ongoing tobacco use, carries over 60 years of smoking history, up to 5 packs a day, currently down to half pack #5. History of benign prostatic hypertrophy Plan: Continue with BiPAP support as needed basis. Continue with nebulized bronchodilators, we'll add Pulmicort and Perforomist, continue DuoNeb's who ID and every 2 hours as needed. Chest x-ray did not show any acute pulmonary abnormality, it showed mildly prominent interstitium, previously seen on other chest x-rays suggesting the possibility of interstitial fibrosis, we'll order proBNP. We will add empiric antibiotics. Smoking cessation counseling was done. Continue to follow with the patient and make further recommendations based on his clinical course. I performed a history & physical examination of the patient and discussed their management with my nurse practitioner, Coleen Worley. I reviewed the nurse practitioner's note and agree with the documented findings and plan of care. Lung sounds are positive for diffuse wheezes throughout the lung meyers. The findings and the impression was discussed with the patient. I attest to the documentation by the nurse practitioner. Time with Patient: Greater than 30
[2018-04-29] MEDS ORDERED: ACETAMINOPHEN TAB 500 MG TAB PO PRN (17:39)
--- NOTE | 2018-04-29 17:43 | P.HPIM ---
History of Present Illness 73-year-old male with a known history of COPD can use to smoke in with complaints of cough chest tightness and wheezing. Patient cough is nonproductive. Patient was recently discharged home but came back because of his shortness of breath. Patient continues to smoke does have history of a 60- pack-year smoking. Patient denied any fever chills a 60 did not show any pneumonic process did show some nodule which was older and is being followed as an outpatient. Patient is being admitted for COPD exacerbation patient on systemic steroids inhalational treatments. Review of Systems REVIEW OF SYSTEMS: CONSTITUTIONAL: No fever, no malaise, no fatigue. HEENT: No recent visual problems or hearing problems. Denied any sore throat. CARDIOVASCULAR: No chest pain, orthopnea, PND, no palpitations, no syncope. PULMONARY: as mentioned in HPI GASTROINTESTINAL: No diarrhea, no nausea, no vomiting, no abdominal pain. NEUROLOGICAL: No headaches, no weakness, no numbness. HEMATOLOGICAL: Denies any bleeding or petechiae. GENITOURINARY: Denies any burning micturition, frequency, or urgency. MUSCULOSKELETAL/RHEUMATOLOGICAL: Denies any joint pain, swelling, or any muscle pain. ENDOCRINE: Denies any polyuria or polydipsia. The rest of the 14-point review of systems is negative. Past Medical History Past Medical History: Atrial Fibrillation, COPD, Prostate Disorder Additional Past Medical History / Comment(s): Paroxysmal Afib, BPH History of Any Multi-Drug Resistant Organisms: None Reported Past Surgical History: No Surgical Hx Reported Additional Past Surgical History / Comment(s): Bilateral cataract removals-lens implants, colonoscpoy Past Anesthesia/Blood Transfusion Reactions: No Reported Reaction Additional Past Anesthesia/Blood Transfusion Reaction / Comment(s): has never received any blood transfusions Smoking Status: Current every day smoker - Past Family History Mother Family Medical History: AFIB, Dementia Father Family Medical History: Myocardial Infarction ([place]) Additional Family Medical History / Comment(s): in his 70's from [place] Medications and Allergies Home Medications Medication Instructions Recorded Confirmed Type Apixaban [Eliquis] 5 mg PO BID 03/24/18 04/29/18 History Ipratropium-Albuterol Nebulize 3 ml INHALATION RT-QID 03/24/18 04/29/18 History [Duoneb 0.5 mg-3 mg/3 ml Soln] Tamsulosin HCl [Flomax] 0.8 mg PO HS 03/24/18 04/29/18 History Metoprolol Tartrate [Lopressor] 50 mg PO BID #60 tab 04/04/18 04/29/18 Rx Albuterol Inhaler [Ventolin Hfa 1 - 2 puff INHALATION RT-QID PRN 04/20/18 History Inhaler] Budesonide-Formot 160-4.5 Mcg 2 puff INHALATION RT-BID 04/20/18 04/29/18 History [Symbicort 160-4.5 Mcg Inhaler] predniSONE See Taper PO DIRECTED #30 tab 04/22/18 04/29/18 Rx Acetaminophen [Tylenol Extra 500 mg PO Q6H PRN 04/29/18 04/29/18 History Strength] Allergies Allergy/AdvReac Type Severity Reaction Status Date / Time latex Allergy Rash/Hives Verified 04/29/18 10:52 Physical Exam Vitals: Vital Signs Temp Pulse Resp BP Pulse Ox 04/29/18 14:49 111 H 24 93 L 04/29/18 14:00 24 94 L 04/29/18 13:56 121 H 26 H 133/83 94 L 04/29/18 13:24 118 H 04/29/18 13:12 117 H 04/29/18 12:35 26 H 94 L 04/29/18 12:32 120/74 04/29/18 12:13 99.4 F 112 H 24 131/87 93 L 04/29/18 11:50 28 H 04/29/18 11:32 117 H 04/29/18 11:19 101 H 04/29/18 10:33 97.9 F 98 30 H 135/71 95 Intake and Output 04/29/18 04/29/18 04/29/18 06:59 14:59 22:59 Other: Weight 72.575 kg PHYSICAL EXAMINATION: GENERAL: The patient is alert and oriented x3, not in any acute distress. Well developed, well nourished. wasn't given 3 L of oxygen HEENT: Pupils are round and equally reacting to light. EOMI. No scleral icterus. No conjunctival pallor. Normocephalic, atraumatic. No pharyngeal erythema. No thyromegaly. CARDIOVASCULAR: S1 and S2 present. No murmurs, rubs, or gallops. PULMONARY: decreased air entry with significant expiratory wheezing on exam ABDOMEN: Soft, nontender, nondistended, normoactive bowel sounds. No palpable organomegaly. MUSCULOSKELETAL: No joint swelling or deformity. EXTREMITIES: No cyanosis, clubbing, or pedal edema. NEUROLOGICAL: Gross neurological examination did not reveal any focal deficits. SKIN: No rashes. Results CBC & Chem 7: 04/29/18 11:31 04/29/18 11:31 Labs: Abnormal Lab Results - Last 24 Hours (Table) 04/29/18 04/29/18 Range/Units 11:31 11:31 WBC 11.7 H (3.8-10.6) k/uL Neutrophils # 8.8 H (1.3-7.7) k/uL BUN 25 H (9-20) mg/dL Total Protein 6.2 L (6.3-8.2) g/dL Thrombosis Risk Factor Assmnt - Choose All That Apply Any of the Below Risk Factors Present?: Yes Each Factor Represents 1 point: Abnormal pulmonary function (COPD) Other Risk Factors: Yes Each Risk Factor Represents 2 Points: Age 61-74 years Other congenital or acquired thrombophilia - If yes, enter type in comment: No Thrombosis Risk Factor Assessment Total Risk Factor Score: 3 Thrombosis Risk Factor Assessment Level: Moderate Risk Assessment and Plan Plan: -acute hypercapnic respiratory failure secondary to COPD exacerbation: Extensive nicotine cessation counseling was provided patient will restart consistent steroids inhalational treatments -Proximal A. fib on anti-correlation with Eliquis which will be continued patient was restarted back on metoprolol -Continue nicotine abuse: Counseling was provided as mentioned above -Benign prostatic hypertrophic continue tamsulosin -Patient will need to DVT and the GI prophylaxis pharmacologically
[2018-04-29] MEDS: methylPREDNISolone SOD SUCCI 125 MG/2 ML VIAL IV SCH ×2 (18:34→23:27)
[2018-04-29] MEDS: BUDESONIDE 1 MG/2 ML NEBU INHALATION SCH (19:16)
[2018-04-29] MEDS: FORMOTEROL FUMARATE 20 MCG/2 ML NEBU INHALATION SCH (19:16)
[2018-04-29] MEDS: IPRATROPIUM-ALBUTEROL 3 ML NEB INHALATION SCH (19:16)
[2018-04-29] MEDS ORDERED: SYMBICORT 160-4.5 MCG INHALER INHALATION SCH (20:00)
[2018-04-29] MEDS: APIXABAN 5 MG TAB PO SCH (20:45)
[2018-04-29] MEDS: DOXYCYCLINE 100 MG CAP PO SCH (20:45)
[2018-04-29] MEDS: FAMOTIDINE 20 MG TAB PO SCH (20:46)
[2018-04-29] MEDS: METOPROLOL TARTRATE 50 MG TAB PO SCH (20:46)
[2018-04-29] MEDS: TAMSULOSIN 0.4 MG CAP.ER.24H PO SCH (20:46)
[2018-04-30] MEDS: methylPREDNISolone SOD SUCCI 125 MG/2 ML VIAL IV SCH ×3 (05:19→17:37)
[2018-04-30] MEDS: BUDESONIDE 1 MG/2 ML NEBU INHALATION SCH ×2 (08:06→21:06)
[2018-04-30] MEDS: FORMOTEROL FUMARATE 20 MCG/2 ML NEBU INHALATION SCH ×2 (08:06→21:03)
[2018-04-30] MEDS: IPRATROPIUM-ALBUTEROL 3 ML NEB INHALATION SCH ×4 (08:06→21:03)
[2018-04-30] MEDS: METOPROLOL TARTRATE 50 MG TAB PO SCH ×2 (09:41→22:40)
[2018-04-30] MEDS: DOXYCYCLINE 100 MG CAP PO SCH ×2 (09:41→22:40)
[2018-04-30] MEDS: APIXABAN 5 MG TAB PO SCH ×2 (09:41→22:40)
[2018-04-30] MEDS: FAMOTIDINE 20 MG TAB PO SCH ×2 (09:41→22:40)
--- NOTE | 2018-04-30 16:18 | P.PN ---
Subjective Progress Note Date: 04/30/18 Principal diagnosis: Acute exacerbation of chronic obstructive pulmonary disease This is a 73-year-old white male patient, with past medical history of atrial fibrillation, COPD, current every day smoker, and BPH, who came into the hospital on 04/29/2018 with worsening shortness of breath, cough, chest tightness, wheezing. His cough is nonproductive. His symptoms started about 1: 00 in the morning. Patient denied any fever or chills, denied any chest pain, or palpitations, no headaches, no dizziness or lightheadedness. No abdominal pain, no nausea or vomiting or diarrhea. He is on chronic anticoagulation in the form of Eliquis, he is on DuoNeb nebulized treatments at home, Spiriva, and Symbicort. He was recently hospitalized for acute exacerbation of COPD, was discharged home on 2018. He was supposed to follow up with Dr. Yang in the office. Unfortunately patient continues to smoke, and carries over 60 year smoking history up to 5 packs a day, currently down to less than half a pack a day. Patient was supposed to see Dr. Yang in follow-up, however he is not sure if the appointment had been set up, and he never made it to the clinic to see the doctor. He did see Dr. Wall after his last hospitalization. He was completing his prednisone taper, down to 20 mg daily. Chest x-ray was completed and showed indeterminate right upper lobe pulmonary nodule and interstitial lung disease again noted. Labs did not show any significant leukocytosis, white blood cell count was 11.7, hemoglobin was 14.5, electrolytes were within normal limits, BUN was 25 and creatinine was 1.01, LFTs were within normal limits, troponin was negative. Patient was in severe respiratory distress, and had to be placed on BiPAP support, was given breathing treatments, and IV steroids, and was able to come off the BiPAP, currently on nasal cannula. On 04/30/2018 patient seen in follow-up on medical surgical floor. Is awake and alert, currently on 3 L per nasal cannula his pulse ox is 96%, afebrile, he is less tachycardic, she is breathing easier, although remains this still quite bronchospastic, and has exertional dyspnea. Vital signs remain stable, blood cultures show no growth, patient did not require BiPAP support last night. Fever or chills, proBNP level came back at the 73, within normal limits, ruling out the possibility of CHF. No complaints of chest pain, patient has a nonproductive cough. Remains on IV steroids, nebulized broncho-dilators, Pulmicort and Perforomist. Objective - Vital Signs Vital signs: Vital Signs Temp 97.9 F 04/30/18 13:44 Pulse 92 04/30/18 13:44 Resp 18 04/30/18 13:44 BP 133/68 04/30/18 13:44 Pulse Ox 96 04/30/18 13:44 Intake & Output 04/29/18 04/30/18 04/30/18 18:59 06:59 18:59 Weight 72.575 kg Other: # Voids 2 2 - Exam GENERAL EXAM: Alert, pleasant, 73-year-old white male, currently at 3 L per nasal cannula and patient has conversational dyspnea HEAD: Normocephalic/atraumatic. EYES: Normal reaction of pupils, equal size. Conjunctiva pink, sclera white. NOSE: Clear with pink turbinates. THROAT: No erythema or exudates. NECK: No masses, no JVD, no thyroid enlargement, no adenopathy. CHEST: No chest wall deformity. Symmetrical expansion. LUNGS: Equal air entry with diffuse wheezes throughout the lung meyers CVS: Regular rate and rhythm, normal S1 and S2, no gallops, no murmurs, no rubs ABDOMEN: Soft, nontender. No hepatosplenomegaly, normal bowel sounds, no guarding or rigidity. EXTREMITIES: No clubbing, no edema, no cyanosis, 2+ pulses and upper and lower extremities. MUSCULOSKELETAL: Muscle strength and tone normal. SPINE: No scoliosis or deformity SKIN: No rashes CENTRAL NERVOUS SYSTEM: Alert and oriented -3. No focal deficits, tone is normal in all 4 extremities. PSYCHIATRIC: Alert and oriented -3. Appropriate affect. Intact judgment and insight. - Labs CBC & Chem 7: 04/29/18 11:31 04/29/18 11:31 Labs: Microbiology - Last 24 Hours (Table) 04/29/18 11:31 Blood Culture - Preliminary Blood No Growth after 24 hours Assessment and Plan Plan: Assessment: #1. Acute exacerbation of chronic obstructive pulmonary disease, chest x-ray did not show any acute abnormality, showed mildly prominent interstitium previously seen on previous chest x-rays and right upper lobe nodule. #2. Recent hospitalization for COPD exacerbation #3. Paroxysmal atrial fibrillation, on chronic anticoagulation with Eliquis, in sinus tachycardia currently #4. Chronic and ongoing tobacco use, carries over 60 years of smoking history, up to 5 packs a day, currently down to half pack #5. History of benign prostatic hypertrophy Plan: Continue with nebulized bronchodilators, we'll add Pulmicort and Perforomist, continue DuoNeb's who ID and every 2 hours as needed. Continue doxycycline. Smoking cessation counseling was done. Continue to follow with the patient and make further recommendations based on his clinical course. Still remains quite bronchospastic and wheezy, and dyspneic. Not ready for discharge. I performed a history & physical examination of the patient and discussed their management with my nurse practitioner, Coleen Worley. I reviewed the nurse practitioner's note and agree with the documented findings and plan of care. Lung sounds are positive for diffuse wheezes throughout the lung meyers. The findings and the impression was discussed with the patient. I attest to the documentation by the nurse practitioner. Time with Patient: Less than 30
[2018-04-30 21:50] VITALS: RESP 18
[2018-04-30] MEDS: TAMSULOSIN 0.4 MG CAP.ER.24H PO SCH (22:41)
[2018-05-01] MEDS: methylPREDNISolone SOD SUCCI 125 MG/2 ML VIAL IV SCH ×3 (00:43→12:18)
[2018-05-01 04:58] VITALS: BP 144/84; TEMP 97.9
[2018-05-01] MEDS: IPRATROPIUM-ALBUTEROL 3 ML NEB INHALATION SCH ×2 (07:32→11:39)
[2018-05-01] MEDS: FORMOTEROL FUMARATE 20 MCG/2 ML NEBU INHALATION SCH (07:33)
[2018-05-01] MEDS: BUDESONIDE 1 MG/2 ML NEBU INHALATION SCH (07:33)
[2018-05-01] MEDS: DOXYCYCLINE 100 MG CAP PO SCH (08:45)
[2018-05-01] MEDS: FAMOTIDINE 20 MG TAB PO SCH (08:45)
[2018-05-01] MEDS: APIXABAN 5 MG TAB PO SCH (08:45)
[2018-05-01] MEDS: METOPROLOL TARTRATE 50 MG TAB PO SCH (08:45)
[2018-05-01 11:45] VITALS: PULSE 88
--- NOTE | 2018-05-01 15:58 | P.PN ---
Subjective Progress Note Date: 05/01/18 Principal diagnosis: Acute exacerbation of chronic obstructive pulmonary disease This is a 73-year-old white male patient, with past medical history of atrial fibrillation, COPD, current every day smoker, and BPH, who came into the hospital on 04/29/2018 with worsening shortness of breath, cough, chest tightness, wheezing. His cough is nonproductive. His symptoms started about 1: 00 in the morning. Patient denied any fever or chills, denied any chest pain, or palpitations, no headaches, no dizziness or lightheadedness. No abdominal pain, no nausea or vomiting or diarrhea. He is on chronic anticoagulation in the form of Eliquis, he is on DuoNeb nebulized treatments at home, Spiriva, and Symbicort. He was recently hospitalized for acute exacerbation of COPD, was discharged home on 2018. He was supposed to follow up with Dr. Yang in the office. Unfortunately patient continues to smoke, and carries over 60 year smoking history up to 5 packs a day, currently down to less than half a pack a day. Patient was supposed to see Dr. Yang in follow-up, however he is not sure if the appointment had been set up, and he never made it to the clinic to see the doctor. He did see Dr. Wall after his last hospitalization. He was completing his prednisone taper, down to 20 mg daily. Chest x-ray was completed and showed indeterminate right upper lobe pulmonary nodule and interstitial lung disease again noted. Labs did not show any significant leukocytosis, white blood cell count was 11.7, hemoglobin was 14.5, electrolytes were within normal limits, BUN was 25 and creatinine was 1.01, LFTs were within normal limits, troponin was negative. Patient was in severe respiratory distress, and had to be placed on BiPAP support, was given breathing treatments, and IV steroids, and was able to come off the BiPAP, currently on nasal cannula. On 04/30/2018 patient seen in follow-up on medical surgical floor. Is awake and alert, currently on 3 L per nasal cannula his pulse ox is 96%, afebrile, he is less tachycardic, she is breathing easier, although remains this still quite bronchospastic, and has exertional dyspnea. Vital signs remain stable, blood cultures show no growth, patient did not require BiPAP support last night. Fever or chills, proBNP level came back at the 73, within normal limits, ruling out the possibility of CHF. No complaints of chest pain, patient has a nonproductive cough. Remains on IV steroids, nebulized broncho-dilators, Pulmicort and Perforomist. On 04/23/2016 patient seen in follow-up on medical surgical floor. He is doing remarkably better, and she responded quite well to IV steroids, antibiotics, breathing treatments, on today's exam lung sounds reveal good air entry bilaterally, with the minimal wheezes. Patient was ambulated in the [place] without oxygen, and maintained saturations above 90. No worsening shortness of breath or congestion, patient did not require BiPAP support last night, and from pulmonary perspective patient is probably stable for discharge home today on prednisone taper, nebulized bronchodilators, and he was instructed to continue his Spiriva and Symbicort, he has a nebulizer machine at home with albuterol nebulized treatments. Objective - Vital Signs Vital signs: Vital Signs Temp 97.9 F 05/01/18 04:57 Pulse 88 05/01/18 11:50 Resp 18 05/01/18 08:00 BP 144/84 05/01/18 04:57 Pulse Ox 91 L 05/01/18 11:34 Intake & Output 04/30/18 05/01/18 05/01/18 18:59 06:59 18:59 Other: # Voids 2 3 2 - Exam GENERAL EXAM: Alert, pleasant, 73-year-old white male, currently on room air nasal cannula and patient has conversational dyspnea HEAD: Normocephalic/atraumatic. EYES: Normal reaction of pupils, equal size. Conjunctiva pink, sclera white. NOSE: Clear with pink turbinates. THROAT: No erythema or exudates. NECK: No masses, no JVD, no thyroid enlargement, no adenopathy. CHEST: No chest wall deformity. Symmetrical expansion. LUNGS: Equal air entry with minimal wheezes on today's exam CVS: Regular rate and rhythm, normal S1 and S2, no gallops, no murmurs, no rubs ABDOMEN: Soft, nontender. No hepatosplenomegaly, normal bowel sounds, no guarding or rigidity. EXTREMITIES: No clubbing, no edema, no cyanosis, 2+ pulses and upper and lower extremities. MUSCULOSKELETAL: Muscle strength and tone normal. SPINE: No scoliosis or deformity SKIN: No rashes CENTRAL NERVOUS SYSTEM: Alert and oriented -3. No focal deficits, tone is normal in all 4 extremities. PSYCHIATRIC: Alert and oriented -3. Appropriate affect. Intact judgment and insight. - Labs CBC & Chem 7: 04/29/18 11:31 04/29/18 11:31 Labs: Microbiology - Last 24 Hours (Table) 04/29/18 11:31 Blood Culture - Preliminary Blood No Growth after 48 hours Assessment and Plan Plan: Assessment: #1. Acute exacerbation of chronic obstructive pulmonary disease, chest x-ray did not show any acute abnormality, showed mildly prominent interstitium previously seen on previous chest x-rays and right upper lobe nodule. #2. Recent hospitalization for COPD exacerbation #3. Paroxysmal atrial fibrillation, on chronic anticoagulation with Eliquis, in sinus tachycardia currently #4. Chronic and ongoing tobacco use, carries over 60 years of smoking history, up to 5 packs a day, currently down to half pack #5. History of benign prostatic hypertrophy Plan: Patient is doing well, hardly any wheezes on today's exam, tolerating and ablation, he is on room air, from pulmonary perspective patient is stable for discharge home today on prednisone taper, outpatient oral course of antibiotics , patient has a nebulizer machine at home, with albuterol treatments, continue Spiriva and Symbicort, follow-up with Dr. Dr. Yang in the office in 7-10 days I performed a history & physical examination of the patient and discussed their management with my nurse practitioner, Coleen Worley. I reviewed the nurse practitioner's note and agree with the documented findings and plan of care. Lung sounds are positive for diffuse wheezes throughout the lung meyers. The findings and the impression was discussed with the patient. I attest to the documentation by the nurse practitioner. Time with Patient: Less than 30
--- NOTE | 2018-05-01 18:12 | P.PN ---
Subjective Progress Note Date: 04/30/18 Interval history:73-year-old male with a known history of COPD can use to smoke in with complaints of cough chest tightness and wheezing. Patient cough is nonproductive. Patient was recently discharged home but came back because of his shortness of breath. Patient continues to smoke does have history of a 60- pack-year smoking. Patient denied any fever chills a 60 did not show any pneumonic process did show some nodule which was older and is being followed as an outpatient. Patient is being admitted for COPD exacerbation patient on systemic steroids inhalational treatments. 04/30/2018 maintained on nebulized bronchodilators, steroids, antibiotics. Tachycardic, maintaining O2 sats in the high 90s on 3 L nasal cannula. Occasional Nonproductive cough. Did not require BiPAP during the night. Continues to have significant wheezing. Afebrile, blood cultures currently reporting no growth. Review of Systems REVIEW OF SYSTEMS: CONSTITUTIONAL: No fever, no malaise, no fatigue. HEENT: No recent visual problems or hearing problems. Denied any sore throat. CARDIOVASCULAR: No chest pain, orthopnea, PND, no palpitations, no syncope. PULMONARY: as mentioned in HPI GASTROINTESTINAL: No diarrhea, no nausea, no vomiting, no abdominal pain. NEUROLOGICAL: No headaches, no weakness, no numbness. HEMATOLOGICAL: Denies any bleeding or petechiae. GENITOURINARY: Denies any burning micturition, frequency, or urgency. MUSCULOSKELETAL/RHEUMATOLOGICAL: Denies any joint pain, swelling, or any muscle pain. ENDOCRINE: Denies any polyuria or polydipsia. The rest of the 14-point review of systems is negative. Objective - Vital Signs Vital signs: Vital Signs Temp 98.3 F 04/30/18 05:41 Pulse 96 04/30/18 11:41 Resp 18 04/30/18 05:41 BP 136/72 04/30/18 05:41 Pulse Ox 95 04/30/18 05:41 Intake & Output 04/29/18 04/30/18 04/30/18 18:59 06:59 18:59 Weight 72.575 kg Other: # Voids 2 - Exam GENERAL: The patient is alert and oriented x3, no acute distress. HEENT: Pupils are round and equally reacting to light. EOMI. No scleral icterus. No conjunctival pallor. Normocephalic, atraumatic. CARDIOVASCULAR: S1 and S2 present. Tachycardic, No murmurs, rubs, or gallops. PULMONARY: Diminished with significant expiratory wheezing ABDOMEN: Soft, nontender, nondistended, normoactive bowel sounds. No palpable organomegaly EXTREMITIES: No cyanosis, clubbing, or pedal edema. NEUROLOGICAL: Gross neurological examination did not reveal any focal deficits. SKIN: No rashes. - Labs CBC & Chem 7: 04/29/18 11:31 04/29/18 11:31 Labs: Abnormal Lab Results - Last 24 Hours (Table) 04/29/18 Range/Units 11:31 BUN 25 H (9-20) mg/dL Total Protein 6.2 L (6.3-8.2) g/dL Assessment and Plan Assessment: -acute hypercapnic respiratory failure secondary to COPD exacerbation -Ev hogan , on Eliquis -Continue nicotine abuse: Counseled -Benign prostatic hypertrophic Plan: Continue on current medication regime ,monitoring and symptomatic treatment. Maintain nebulized bronchodilators, steroids, doxycycline. Weaning of oxygen in progress. Increase ambulation as tolerated. Smoking cessation readdressed. Discharge planning in progress for tomorrow, pending pulmonary clearance. The impression and plan of care has been dictated as directed. : I performed a history and examination of this patient, discussed the same with the dictator. I agree with the dictator's note ,documented as a scribe. Any additional findings or plans will be noted.
--- NOTE | 2018-05-01 18:18 | P.DS ---
Providers Date of admission: 04/29/18 12:41 Expected date of discharge: 05/01/18 Attending physician: Augusta Ramos Consults: 04/29/18 12:41 Consult Physician Routine Consulting Provider: Martir Tucker Consult Reason/Comments: COPD Do you want consulting provider notified?: Yes [facility] Course: Final Diagnoses: -acute hypercapnic respiratory failure secondary to COPD exacerbation -Paroximal A. fib , on Eliquis -Continue nicotine abuse: Counseled -Benign prostatic hypertrophic Hospital course:73-year-old male with a known history of COPD can use to smoke in with complaints of cough chest tightness and wheezing. Patient cough is nonproductive. Patient was recently discharged home but came back because of his shortness of breath. Patient continues to smoke does have history of a 60- pack-year smoking. Patient denied any fever chills a 60 did not show any pneumonic process did show some nodule which was older and is being followed as an outpatient. Patient is being admitted for COPD exacerbation patient on systemic steroids inhalational treatments. 04/30/2018 maintained on nebulized bronchodilators, steroids, antibiotics. Tachycardic, maintaining O2 sats in the high 90s on 3 L nasal cannula. Occasional Nonproductive cough. Did not require BiPAP during the night. Continues to have significant wheezing. Afebrile, blood cultures currently reporting no growth. 05/01/2018 significant clinical improvement. Oxygen weaned off, maintaining O2 sat on room air after ambulation of 91%. Cleared by pulmonary for discharge. Patient is being discharged home in a stable condition with guarded prognosis. EXAM: GENERAL: The patient is alert and oriented x3, no acute distress. CARDIOVASCULAR: S1 and S2 present. No murmurs, rubs, or gallops. PULMONARY: Diminished with minimal expiratory wheezing ABDOMEN: Soft, nontender, nondistended, normoactive bowel sounds. No palpable organomegaly EXTREMITIES: No cyanosis, clubbing, or pedal edema. NEUROLOGICAL: Gross neurological examination did not reveal any focal deficits. SKIN: No rashes. The impression and plan of care has been dictated as directed. : I performed a history and examination of this patient, discussed the same with the dictator. I agree with the dictator's note ,documented as a scribe. Any additional findings or plans will be noted. Time taken: 35 minutes Patient Condition at Discharge: Stable Plan - Discharge Summary Discharge Rx Participant: No New Discharge Prescriptions: New Doxycycline [Vibramycin] 100 mg PO BID #10 cap Famotidine [Pepcid] 20 mg PO BID #15 tab predniSONE 10 mg PO DIRECTED #30 tab Continue Ipratropium-Albuterol Nebulize [Duoneb 0.5 mg-3 mg/3 ml Soln] 3 ml INHALATION RT-QID Apixaban [Eliquis] 5 mg PO BID Tamsulosin HCl [Flomax] 0.8 mg PO HS Metoprolol Tartrate [Lopressor] 50 mg PO BID #60 tab Budesonide-Formot 160-4.5 Mcg [Symbicort 160-4.5 Mcg Inhaler] 2 puff INHALATION RT-BID Albuterol Inhaler [Ventolin Hfa Inhaler] 1 - 2 puff INHALATION RT-QID PRN PRN Reason: Shortness Of Breath Or Wheezing Acetaminophen [Tylenol Extra Strength] 500 mg PO Q6H PRN PRN Reason: Pain Discontinued predniSONE See Taper PO DIRECTED #30 tab Discharge Medication List Apixaban [Eliquis] 5 mg PO BID 03/24/18 [History] Ipratropium-Albuterol Nebulize [Duoneb 0.5 mg-3 mg/3 ml Soln] 3 ml INHALATION RT -QID 03/24/18 [History] Tamsulosin HCl [Flomax] 0.8 mg PO HS 03/24/18 [History] Metoprolol Tartrate [Lopressor] 50 mg PO BID #60 tab 04/04/18 [Rx] Albuterol Inhaler [Ventolin Hfa Inhaler] 1 - 2 puff INHALATION RT-QID PRN [History] Budesonide-Formot 160-4.5 Mcg [Symbicort 160-4.5 Mcg Inhaler] 2 puff INHALATION RT-BID 04/20/18 [History] Acetaminophen [Tylenol Extra Strength] 500 mg PO Q6H PRN 04/29/18 [History] Doxycycline [Vibramycin] 100 mg PO BID #10 cap 05/01/18 [Rx] Famotidine [Pepcid] 20 mg PO BID #15 tab 05/01/18 [Rx] predniSONE 10 mg PO DIRECTED #30 tab 05/01/18 [Rx] Follow up Appointment(s)/Referral(s): Frankie Wall DO [Primary Care Provider] - 05/22/18 10:00 am (in [place]) Martir Tucker MD [STAFF PHYSICIAN] - 05/13/18 2:45 pm Ambulatory/Diagnostic Orders: Complete Blood Count w/diff [LAB.AMB] Time Frame: 3 Days, Location: None Selected Patient Instructions/Handouts: COPD (Chronic Obstructive Pulmonary Disease) (DC ) Discharge Disposition: HOME SELF-CARE
== END 2018-05-01 14:19 | disposition home or self-care (01) | DRG 189 ==
LOC: EC 10:28 → 4MS4W 12:41
PROVIDERS: ADMIT Hospitalist; ATTEND Hospitalist
PROC: 5A09357 Assistance with Respiratory Ventilation, Less than 24 Consecutive Hours, Continuous Positive Airway Pressure (ICD-10-PCS; principal; 2018-04-29)
DX: J96.02 Acute respiratory failure with hypercapnia (principal); J44.1 Chronic obstructive pulmonary disease with (acute) exacerbation; J84.9 Interstitial pulmonary disease, unspecified; Z96.1 Presence of intraocular lens; F17.210 Nicotine dependence, cigarettes, uncomplicated; I48.0 Paroxysmal atrial fibrillation; N42.9 Disorder of prostate, unspecified; N40.0 Benign prostatic hyperplasia without lower urinary tract symptoms; R91.1 Solitary pulmonary nodule; Z79.899 Other long term (current) drug therapy; Z79.52 Long term (current) use of systemic steroids; Z79.51 Long term (current) use of inhaled steroids; Z79.01 Long term (current) use of anticoagulants; Z82.49 Family history of ischemic heart disease and other diseases of the circulatory system; Z98.42 Cataract extraction status, left eye; Z98.41 Cataract extraction status, right eye; Z91.040 Latex allergy status; Z71.6 Tobacco abuse counseling
CPT/HCPCS: 36415; 71046; 80053; 83735; 83880; 84484; 85025; 85610; 85730; 87040; 93005; 94640; 94660; 94760; 96361; 96374; 96375; 99291

== ENCOUNTER → 2018-05-22 | Outpatient (CLI) | payer MEDICARE ==
[2018-05-22 13:49] LABS: Blood Urea Nitrogen 10 mg/dL (9-20)
--- NOTE | 2018-05-22 14:37 | CT ---
EXAMINATION TYPE: CT chest w con DATE OF EXAM: 05/22/2018 COMPARISON: Chest radiograph dated 04/29/2018 HISTORY: Cough CT DLP: 329.9 mGycm. Automated Exposure Control for Dose Reduction was Utilized. TECHNIQUE: CT scan of the thorax is performed following with IV Contrast, patient injected with 100 mL of Isovue 300. FINDINGS: LUNGS: There is a smoothly marginated, round 7 mm pulmonary nodule within the right lung apex posteri vivian and series 4 image 16. This is hyperattenuated although centrally is a punctate focus of hypoatt enuation. A second pulmonary nodule is seen within the interlobar fissure that is lower attenuation o n series 4 image 24 demonstrated to be within the fissure on coronal image 65. This measures 8 mm and may represent an intrafissural lymph node. There is moderate background centrilobular emphysematous change and peripheral basilar predominant early honeycombing indicating fibrosis. There is also a 3 m m lingular pulmonary nodule that appears solid in nature on series 4 image 30. MEDIASTINUM: There are no greater than 1 cm hilar or mediastinal lymph nodes. No pericardial effusi on is seen. OTHER: Limited upper images of the abdomen demonstrate mild degree hepatic steatosis and a small hiat al hernia. Mild multilevel degenerative changes of the spine are seen. No supraclavicular adenopathy. IMPRESSION: 1. A 7 mm right upper lobe pulmonary nodule corresponds to the finding on the chest radiograph of 04/05. This is rounded, smoothly marginated and contains a punctate focus of possible central fat or early necrosis. However, this patient is at high risk with underlying moderate emphysema and pulmona ry fibrosis. Therefore PET CT is recommended for further assessment although this is borderline size for the sensitivity of PET CT. 2. No mediastinal adenopathy or supraclavicular adenopathy.
== END | disposition home or self-care (01) ==
LOC: RADCTMAIN 13:14
PROVIDERS: ATTEND Internal Medicine Critical Care Medicine
DX: J43.9 Emphysema, unspecified (principal); J84.10 Pulmonary fibrosis, unspecified; R91.1 Solitary pulmonary nodule; Z91.040 Latex allergy status
CPT/HCPCS: 82565; 84520; 71260; 36415; Q9967

== ENCOUNTER 2018-07-01 20:37 | Emergency (ER) | payer MEDICARE, OTHER ==
[2018-07-01] MEDS ORDERED: ALBUTEROL NEBULIZED 2.5 MG/3 ML INHALATION STA (21:40)
[2018-07-01] MEDS ORDERED: methylPREDNISolone SOD SUCCI 125 MG/2 ML VIAL IV STA (21:40)
[2018-07-01] MEDS ORDERED: guaiFENesin-DM 600/30MG 1 EACH TAB.ER.12H PO STA (21:41)
[2018-07-01 22:14] LABS: Basophils # (A) 0.1 k/uL (0-0.2); Basophils % (A) 1 %; Eosinophils # (A) 0.7 k/uL (0-0.7); Eosinophils % (A) 7 %; HGB 14.2 gm/dL (13.0-17.5); Lymphocytes % (A) 19 %; MCH 32.6 pg (25.0-35.0); MCHC 33.8 g/dL (31.0-37.0); MCV 96.4 fL (80.0-100.0); Mean Platelet Volume 7.1; Monocytes # (A) 0.8 k/uL (0-1.0); Monocytes % (A) 7 %; Neutrophils # (A) 6.5 k/uL (1.3-7.7); Neutrophils % (A) 63 %; Platelet Count 236 k/uL (150-450); RBC 4.36 m/uL (4.30-5.90); RDW 12.9 % (11.5-15.5); WBC 10.3 k/uL (3.8-10.6)
[2018-07-01 22:19] LABS: INR 0.9 (<1.2); Partial Thromboplastin Time 25.9 sec (22.0-30.0); Prothrombin Time 10.1 sec (9.0-12.0)
[2018-07-01 22:22] LABS: ALT 20 U/L (21-72); AST 21 U/L (17-59); Albumin 4.3 g/dL (3.5-5.0); Alkaline Phosphatase 64 U/L (38-126); Anion Gap 9 mmol/L; Blood Urea Nitrogen 16 mg/dL (9-20); Calcium 9.5 mg/dL (8.4-10.2); Carbon Dioxide 24 mmol/L (22-30); Chloride 104 mmol/L (98-107); Glucose 104 mg/dL (74-99); Potassium 4.4 mmol/L (3.5-5.1); Sodium 137 mmol/L (137-145); Total Bilirubin 0.5 mg/dL (0.2-1.3); Total Protein 6.9 g/dL (6.3-8.2)
--- NOTE | 2018-07-01 22:42 | XR ---
History: ITS.REASON XR Reason: difficulty breathing Exam: XR CXR 2 VIEWS Comparison: 04/29/2018 FINDINGS: Question possible mild pulmonary vascular congestion versus background of chronic interstitial changes. No focal consolidation or pleural effusion. The cardiac silhouette appears within limits. Small calcified granuloma right upper lobe unchanged. IMPRESSION: Question possible mild pulmonary vascular congestion versus background of chronic interstitial changes. No focal consolidation or pleural effusion.
--- NOTE | 2018-07-01 23:05 | ED ---
General Adult HPI - General Chief complaint: Shortness of Breath Stated complaint: COPD, headache, neck pain Time Seen by Provider: 07/01/18 20:52 Source: patient Mode of arrival: ambulatory Limitations: no limitations - History of Present Illness Initial comments: 73-year-old male patient with past medical history significant for COPD, currently smoking, presents to the emergency department today for evaluation of shortness of breath and tingling to the bilateral upper extremities. Patient states he has had nasal congestion and cough for the last week. Patient states his breathing is getting worse. Patient states he has been doing his breathing treatments 3 times daily without relief. Denies this was states he is getting small amount of clear sputum production. Denies any chest pain or tightness. Patient states he is having some mild neck pain and feels a crunching when he moves his neck around. Denies any injury to the neck. Denies any numbness to the upper extremities. Denies any difficulty with movement of the arms. Patient denies any recent rash, fever, chills, abdominal pain, nausea, vomiting, diarrhea, constipation, back pain, numbness, tingling, dizziness, weakness, hematuria, dysuria, urinary urgency, urinary frequency, headache, visual changes, or any other complaints. - Related Data Home Medications Medication Instructions Recorded Confirmed Apixaban [Eliquis] 5 mg PO BID 03/24/18 07/01/18 Ipratropium-Albuterol Nebulize 3 ml INHALATION RT-QID PRN 03/24/18 07/01/18 [Duoneb 0.5 mg-3 mg/3 ml Soln] Tamsulosin HCl [Flomax] 0.8 mg PO HS 03/24/18 07/01/18 Albuterol Inhaler [Ventolin Hfa 1 - 2 puff INHALATION RT-QID PRN 04/20/18 07/01/18 Inhaler] Budesonide-Formot 160-4.5 Mcg 2 puff INHALATION RT-BID 04/20/18 07/01/18 [Symbicort 160-4.5 Mcg Inhaler] Tiotropium [place] [Spiriva] 1 cap INHALATION RT-DAILY 07/01/18 07/01/18 Previous Rx's Medication Instructions Recorded Metoprolol Tartrate [Lopressor] 50 mg PO BID #60 tab 04/04/18 Famotidine [Pepcid] 20 mg PO BID #15 tab 05/01/18 Azithromycin [Zithromax Z-pack] 0 mg PO DIRECTED #6 tab 07/02/18 predniSONE 50 mg PO DAILY #5 tablet 07/02/18 Allergies Allergy/AdvReac Type Severity Reaction Status Date / Time Iodinated Contrast- Oral and Allergy Rash/Hives Verified 07/01/18 21:32 IV Dye latex Allergy Rash/Hives Verified 07/01/18 21:32 Review of Systems ROS Statement: Those systems with pertinent positive or pertinent negative responses have been documented in the HPI. ROS Other: All systems not noted in ROS Statement are negative. Past Medical History Past Medical History: Atrial Fibrillation, COPD, Prostate Disorder Additional Past Medical History / Comment(s): Paroxysmal Afib, BPH History of Any Multi-Drug Resistant Organisms: None Reported Past Surgical History: No Surgical Hx Reported Additional Past Surgical History / Comment(s): Bilateral cataract removals-lens implants, colonoscpoy Past Anesthesia/Blood Transfusion Reactions: No Reported Reaction Additional Past Anesthesia/Blood Transfusion Reaction / Comment(s): has never received any blood transfusions Past Psychological History: No Psychological Hx Reported Smoking Status: Current every day smoker Past Alcohol Use History: None Reported Past Drug Use History: None Reported - Past Family History Mother Family Medical History: AFIB, Dementia Father Family Medical History: Myocardial Infarction ([place]) Additional Family Medical History / Comment(s): in his 70's [place] General Exam Limitations: no limitations General appearance: alert, in no apparent distress, other (Social well- developed, well-nourished elderly male patient in no acute distress. Vital signs upon presentation are temperature 98.3F, pulse 101, respirations 22, blood pressure 111/70, pulse ox 93% on room air.) Eye exam: Present: normal appearance, PERRL, EOMI. Absent: scleral icterus, conjunctival injection, periorbital swelling ENT exam: Present: normal exam, normal oropharynx, mucous membranes moist Respiratory exam: Present: wheezes (Course expiratory wheezing noted in the posterior lung meyers). Absent: normal lung sounds bilaterally, respiratory distress, rales, rhonchi, stridor, accessory muscle use Cardiovascular Exam: Present: regular rate, normal rhythm, normal heart sounds. Absent: systolic murmur, diastolic murmur, rubs, gallop, clicks GI/Abdominal exam: Present: soft, normal bowel sounds. Absent: distended, tenderness, guarding, rebound, rigid Neurological exam: Present: alert, oriented X3, CN II-XII intact, other (Strength in all 4 extremities is 5/5.) Psychiatric exam: Present: normal affect, normal mood Skin exam: Present: warm, dry, intact, normal color. Absent: rash Course Vital Signs 07/01/18 07/01/18 07/01/18 20:49 22:00 22:04 Temperature 98.3 F Pulse Rate 101 H 103 H Respiratory 22 30 H 28 H Rate Blood Pressure 111/70 126/79 O2 Sat by Pulse 93 L 94 L Oximetry 07/01/18 07/01/18 07/01/18 22:25 22:30 22:55 Temperature Pulse Rate 97 92 98 Respiratory 30 H Rate Blood Pressure 132/92 O2 Sat by Pulse 90 L Oximetry 07/01/18 07/02/18 07/02/18 23:00 00:00 00:30 Temperature Pulse Rate 92 86 90 Respiratory 28 H Rate Blood Pressure 132/80 115/71 115/70 O2 Sat by Pulse 96 97 97 Oximetry 07/02/18 01:12 Temperature 96.7 F L Pulse Rate 98 Respiratory 20 Rate Blood Pressure 120/81 O2 Sat by Pulse 93 L Oximetry EKG Findings - EKG Comments: EKG Findings:: EKG obtained at 2155 shows normal sinus rhythm with ventricular rate 88, RI interval 160, QRS duration 82, QT 358, QTC 433. No evidence of ST elevation or depression. Medical Decision Making - Medical Decision Making 73-year-old male patient presented to the emergency department today for evaluation of increased shortness of breath and wheezing. He is also reporting some neck discomfort with tingling in the bilateral arms. Physical examination did reveal coarse expiratory wheezing in the posterior lung meyers. He was tachypneic upon arrival. Labs reviewed and were unremarkable. Chest x-ray showed possible pulmonary vascular congestion versus interstitial changes, no evidence for pneumonia. BNP was 50. He was given 7.5 mg albuterol breathing treatment IV steroids. Upon reevaluation he does report improvement of symptoms. Was able to ambulate to the bathroom and did have 95% oxygenation on room air. I did discuss findings and results with the patient. I did offer admission for continued breathing treatments and IV steroids, patient would rather try outpatient treatment with oral medications first. Given improvement of symptoms and current oxygen saturation we will attempt home treatment. He will be started on prednisone and azithromycin. He does have breathing treatments in the form of DuoNeb at home, he is instructed to use every 4 hours. Instructed to follow-up with his primary care physician for recheck in 1-2 days. Return parameters were discussed in great detail. He verbalizes understanding and agrees with this plan. - Lab Data Result diagrams: 07/01/18 22:00 07/01/18 22:00 Lab Results 07/01/18 07/01/18 07/01/18 Range/Units 22:00 22:00 22:00 WBC 10.3 (3.8-10.6) k/uL RBC 4.36 (4.30-5.90) m/uL Hgb 14.2 (13.0-17.5) gm/dL Hct 42.0 (39.0-53.0) % MCV 96.4 (80.0-100.0) fL MCH 32.6 (25.0-35.0) pg MCHC 33.8 (31.0-37.0) g/dL RDW 12.9 (11.5-15.5) % Plt Count 236 (150-450) k/uL Neutrophils % 63 % Lymphocytes % 19 % Monocytes % 7 % Eosinophils % 7 % Basophils % 1 % Neutrophils # 6.5 (1.3-7.7) k/uL Lymphocytes # 2.0 (1.0-4.8) k/uL Monocytes # 0.8 (0-1.0) k/uL Eosinophils # 0.7 (0-0.7) k/uL Basophils # 0.1 (0-0.2) k/uL PT 10.1 (9.0-12.0) sec INR 0.9 (<1.2) APTT 25.9 (22.0-30.0) sec Sodium 137 (137-145) mmol/L Potassium 4.4 (3.5-5.1) mmol/L Chloride 104 (98-107) mmol/L Carbon Dioxide 24 (22-30) mmol/L Anion Gap 9 mmol/L BUN 16 (9-20) mg/dL Creatinine 0.85 (0.66-1.25) mg/dL Est GFR (CKD-EPI)AfAm >90 (>60 ml/min/1.73 sqM) Est GFR (CKD-EPI)NonAf 87 (>60 ml/min/1.73 sqM) Glucose 104 H (74-99) mg/dL Calcium 9.5 (8.4-10.2) mg/dL Total Bilirubin 0.5 (0.2-1.3) mg/dL AST 21 (17-59) U/L ALT 20 L (21-72) U/L Alkaline Phosphatase 64 (38-126) U/L Troponin I (0.000-0.034) ng/mL NT-Pro-B Natriuret Pep pg/mL Total Protein 6.9 (6.3-8.2) g/dL Albumin 4.3 (3.5-5.0) g/dL 07/01/18 07/01/18 Range/Units 22:00 22:00 WBC (3.8-10.6) k/uL RBC (4.30-5.90) m/uL Hgb (13.0-17.5) gm/dL Hct (39.0-53.0) % MCV (80.0-100.0) fL MCH (25.0-35.0) pg MCHC (31.0-37.0) g/dL RDW (11.5-15.5) % Plt Count (150-450) k/uL Neutrophils % % Lymphocytes % % Monocytes % % Eosinophils % % Basophils % % Neutrophils # (1.3-7.7) k/uL Lymphocytes # (1.0-4.8) k/uL Monocytes # (0-1.0) k/uL Eosinophils # (0-0.7) k/uL Basophils # (0-0.2) k/uL PT (9.0-12.0) sec INR (<1.2) APTT (22.0-30.0) sec Sodium (137-145) mmol/L Potassium (3.5-5.1) mmol/L Chloride (98-107) mmol/L Carbon Dioxide (22-30) mmol/L Anion Gap mmol/L BUN (9-20) mg/dL Creatinine (0.66-1.25) mg/dL Est GFR (CKD-EPI)AfAm (>60 ml/min/1.73 sqM) Est GFR (CKD-EPI)NonAf (>60 ml/min/1.73 sqM) Glucose (74-99) mg/dL Calcium (8.4-10.2) mg/dL Total Bilirubin (0.2-1.3) mg/dL AST (17-59) U/L ALT (21-72) U/L Alkaline Phosphatase (38-126) U/L Troponin I <0.012 (0.000-0.034) ng/mL NT-Pro-B Natriuret Pep 50 pg/mL Total Protein (6.3-8.2) g/dL Albumin (3.5-5.0) g/dL - Radiology Data Radiology results: report reviewed, image reviewed 2 views of the chest are obtained. Report was reviewed in its entirety. Impression by Dr. Gutierrez shows question possible mild pulmonary vascular congestion versus background of chronic interstitial changes. No focal consolidation or pleural effusion. Disposition Clinical Impression: COPD exacerbation Disposition: HOME SELF-CARE Condition: Good Instructions (If sedation given, give patient instructions): COPD (Chronic Obstructive Pulmonary Disease) (ED) Additional Instructions: Complete steroid prescription in full. Do breathing treatments every 4 hours. Follow-up with your primary care physician for recheck in 1-2 days. Return to the emergency department immediately for any new, worsening, or concerning symptoms. Prescriptions: predniSONE 50 mg PO DAILY #5 tablet Azithromycin [Zithromax Z-pack] 0 mg PO DIRECTED #6 tab Is patient prescribed a controlled substance at d/c from ED?: No Referrals: Frankie Wall DO [Primary Care Provider] - 1-2 days Time of Disposition: 01:01
[2018-07-02 01:12] VITALS: BP 120/81; PULSE 98; RESP 20; TEMP 96.7
== END 2018-07-02 01:21 | disposition home or self-care (01) ==
LOC: EC 20:37
DX: J44.1 Chronic obstructive pulmonary disease with (acute) exacerbation (principal); M54.2 Cervicalgia; R20.2 Paresthesia of skin; I48.91 Unspecified atrial fibrillation; N40.0 Benign prostatic hyperplasia without lower urinary tract symptoms; F17.200 Nicotine dependence, unspecified, uncomplicated; Z79.01 Long term (current) use of anticoagulants; Z79.51 Long term (current) use of inhaled steroids; Z79.899 Other long term (current) drug therapy; Z91.041 Radiographic dye allergy status; Z91.040 Latex allergy status
CPT/HCPCS: 99285 ×2; 96374 ×2; 36415; 94640; 93005; 83880; 80053; 84484; 85025; 85610; 85730; 71046; J2930

== ENCOUNTER 2018-07-23 20:20 | Emergency (ER) | payer MEDICARE, OTHER ==
[2018-07-23 21:20] LABS: Basophils # (A) 0.1 k/uL (0-0.2); Basophils % (A) 1 %; Eosinophils # (A) 1.2 k/uL (0-0.7); Eosinophils % (A) 14 %; HCT 43.7 % (39.0-53.0); HGB 14.7 gm/dL (13.0-17.5); Lymphocytes # (A) 1.6 k/uL (1.0-4.8); Lymphocytes % (A) 18 %; MCH 31.9 pg (25.0-35.0); MCHC 33.6 g/dL (31.0-37.0); MCV 95.1 fL (80.0-100.0); Mean Platelet Volume 7.7; Monocytes # (A) 0.6 k/uL (0-1.0); Monocytes % (A) 7 %; Neutrophils # (A) 4.9 k/uL (1.3-7.7); Neutrophils % (A) 58 %; Platelet Count 228 k/uL (150-450); RBC 4.59 m/uL (4.30-5.90); RDW 13.2 % (11.5-15.5); WBC 8.6 k/uL (3.8-10.6)
[2018-07-23 21:31] LABS: ALT 18 U/L (21-72); AST 16 U/L (17-59); Albumin 4.1 g/dL (3.5-5.0); Alkaline Phosphatase 59 U/L (38-126); Anion Gap 8 mmol/L; Blood Urea Nitrogen 16 mg/dL (9-20); Calcium 9.4 mg/dL (8.4-10.2); Carbon Dioxide 25 mmol/L (22-30); Chloride 105 mmol/L (98-107); Glucose 110 mg/dL (74-99); Magnesium 2.1 mg/dL (1.6-2.3); Potassium 4.4 mmol/L (3.5-5.1); Sodium 138 mmol/L (137-145); Total Bilirubin 0.4 mg/dL (0.2-1.3); Total Protein 6.6 g/dL (6.3-8.2)
[2018-07-23 21:33] LABS: Creatine Kinase 40 U/L (55-170)
[2018-07-23] MEDS ORDERED: predniSONE 20 MG TAB PO STA (21:33)
[2018-07-23] MEDS ORDERED: ALBUTEROL NEBULIZED 2.5 MG/3 ML INHALATION STA (21:33)
[2018-07-23] MEDS ORDERED: IPRATROPIUM-ALBUTEROL 3 ML NEB INHALATION STA (21:33)
--- NOTE | 2018-07-23 21:33 | XR ---
EXAMINATION TYPE: XR chest 2V DATE OF EXAM: 07/23/2018 COMPARISON: 07/01/2018 HISTORY: Short of breath TECHNIQUE: Frontal and lateral views of the chest are obtained. FINDINGS: There is coarsening of interstitial markings. Heart size is normal. There is no pleural ef fusion. Bony thorax is intact. There are no hilar masses. IMPRESSION: Interstitial pulmonary fibrotic changes. Normal heart. No change compared to last exam.
--- NOTE | 2018-07-23 21:41 | ED ---
SOB HPI - General Chief Complaint: Shortness of Breath Stated Complaint: SOB Time Seen by Provider: 07/23/18 21:24 Source: family Mode of arrival: ambulatory Limitations: no limitations - History of Present Illness Initial Comments: This patient is a 73-year-old man who has history of COPD, and presents with complaint that he believes this is flaring up. Patient states that it started getting worse approximately 24 hours ago. The patient states she has been wheezing, has had a nonproductive cough, and has been feeling short of breath. He states that he has been using home albuterol which only gives relief for short period and then his symptoms come back. Patient believes this may have been triggered by an upper respiratory infection she states she has been having congestion for the same time. Patient denies fever or chills. No chest pain. Cough is nonproductive. He has not had change in urination or bowel movements. No leg pain or swelling. MD Complaint: shortness of breath, cough Onset/Timin -: hour(s) Consistency: constant Improves With: bronchodilators Worsens With: nothing Known History Of: COPD Associated Symptoms: cough Treatments Prior to Arrival: bronchodilator - Related Data Home Oxygen Therapy: No Home Medications Medication Instructions Recorded Confirmed Apixaban [Eliquis] 5 mg PO BID 03/24/18 07/23/18 Ipratropium-Albuterol Nebulize 3 ml INHALATION RT-QID PRN 03/24/18 07/23/18 [Duoneb 0.5 mg-3 mg/3 ml Soln] Tamsulosin HCl [Flomax] 0.8 mg PO HS 03/24/18 07/23/18 Albuterol Inhaler [Ventolin Hfa 1 - 2 puff INHALATION RT-QID PRN 04/20/18 07/23/18 Inhaler] Budesonide-Formot 160-4.5 Mcg 2 puff INHALATION RT-BID 04/20/18 07/23/18 [Symbicort 160-4.5 Mcg Inhaler] Tiotropium [place] [Spiriva] 1 cap INHALATION RT-DAILY 07/01/18 07/23/18 Previous Rx's Medication Instructions Recorded Metoprolol Tartrate [Lopressor] 50 mg PO BID #60 tab 04/04/18 Famotidine [Pepcid] 20 mg PO BID #15 tab 05/01/18 predniSONE 60 mg PO DAILY #30 tab 07/23/18 Allergies Allergy/AdvReac Type Severity Reaction Status Date / Time Iodinated Contrast- Oral and Allergy Rash/Hives Verified 07/23/18 21:28 IV Dye latex Allergy Rash/Hives Verified 07/23/18 21:28 Review of Systems ROS Statement: Those systems with pertinent positive or pertinent negative responses have been documented in the HPI. ROS Other: All systems not noted in ROS Statement are negative. Constitutional: Denies: fever, chills Respiratory: Reports: cough, dyspnea, wheezes. Denies: hemoptysis Cardiovascular: Denies: chest pain, palpitations, orthopnea, edema, syncope Gastrointestinal: Denies: abdominal pain, vomiting, diarrhea, melena, hematochezia Genitourinary: Denies: dysuria, hematuria Musculoskeletal: Denies: back pain Skin: Denies: rash Neurological: Denies: headache, weakness, numbness Past Medical History Past Medical History: Atrial Fibrillation, COPD, Prostate Disorder Additional Past Medical History / Comment(s): Paroxysmal Afib, BPH History of Any Multi-Drug Resistant Organisms: None Reported Past Surgical History: No Surgical Hx Reported Additional Past Surgical History / Comment(s): Bilateral cataract removals-lens implants, colonoscpoy Past Anesthesia/Blood Transfusion Reactions: No Reported Reaction Additional Past Anesthesia/Blood Transfusion Reaction / Comment(s): has never received any blood transfusions Past Psychological History: No Psychological Hx Reported Smoking Status: Current every day smoker Past Alcohol Use History: None Reported Past Drug Use History: None Reported - Past Family History Mother Family Medical History: AFIB, Dementia Father Family Medical History: Myocardial Infarction ([place]) Additional Family Medical History / Comment(s): in his 70's [place] General Exam Limitations: no limitations General appearance: alert, in no apparent distress Head exam: Present: atraumatic, normocephalic Eye exam: Present: normal appearance. Absent: scleral icterus, conjunctival injection ENT exam: Present: normal oropharynx Respiratory exam: Present: wheezes. Absent: respiratory distress, rales, rhonchi, stridor, accessory muscle use, decreased breath sounds, prolonged expiratory Cardiovascular Exam: Present: regular rate, normal rhythm, normal heart sounds. Absent: systolic murmur, diastolic murmur, rubs, gallop GI/Abdominal exam: Present: soft. Absent: distended, tenderness, guarding, rebound, rigid, mass Extremities exam: Present: normal inspection, normal capillary refill. Absent: pedal edema, calf tenderness Back exam: Present: normal inspection. Absent: CVA tenderness (R), CVA tenderness (L) Neurological exam: Present: alert Skin exam: Present: warm, dry, intact, normal color. Absent: rash Course Vital Signs 07/23/18 07/23/18 07/23/18 20:22 21:48 22:07 Temperature 98.4 F Pulse Rate 83 86 86 Respiratory 20 Rate Blood Pressure 114/72 O2 Sat by Pulse 95 Oximetry Medical Decision Making - Lab Data Result diagrams: 07/23/18 20:51 07/23/18 20:51 Lab Results 07/23/18 07/23/18 07/23/18 Range/Units 20:51 20:51 20:51 WBC 8.6 (3.8-10.6) k/uL RBC 4.59 (4.30-5.90) m/uL Hgb 14.7 (13.0-17.5) gm/dL Hct 43.7 (39.0-53.0) % MCV 95.1 (80.0-100.0) fL MCH 31.9 (25.0-35.0) pg MCHC 33.6 (31.0-37.0) g/dL RDW 13.2 (11.5-15.5) % Plt Count 228 (150-450) k/uL Neutrophils % 58 % Lymphocytes % 18 % Monocytes % 7 % Eosinophils % 14 % Basophils % 1 % Neutrophils # 4.9 (1.3-7.7) k/uL Lymphocytes # 1.6 (1.0-4.8) k/uL Monocytes # 0.6 (0-1.0) k/uL Eosinophils # 1.2 H (0-0.7) k/uL Basophils # 0.1 (0-0.2) k/uL D-Dimer (<0.60) mg/L FEU Sodium 138 (137-145) mmol/L Potassium 4.4 (3.5-5.1) mmol/L Chloride 105 (98-107) mmol/L Carbon Dioxide 25 (22-30) mmol/L Anion Gap 8 mmol/L BUN 16 (9-20) mg/dL Creatinine 0.83 (0.66-1.25) mg/dL Est GFR (CKD-EPI)AfAm >90 (>60 ml/min/1.73 sqM) Est GFR (CKD-EPI)NonAf 87 (>60 ml/min/1.73 sqM) Glucose 110 H (74-99) mg/dL Calcium 9.4 (8.4-10.2) mg/dL Magnesium 2.1 (1.6-2.3) mg/dL Total Bilirubin 0.4 (0.2-1.3) mg/dL AST 16 L (17-59) U/L ALT 18 L (21-72) U/L Alkaline Phosphatase 59 (38-126) U/L Total Creatine Kinase 40 L (55-170) U/L CK-MB (CK-2) 0.9 (0.0-2.4) ng/mL CK-MB (CK-2) Rel Index 2.3 Troponin I <0.012 (0.000-0.034) ng/mL Total Protein 6.6 (6.3-8.2) g/dL Albumin 4.1 (3.5-5.0) g/dL 07/23/18 Range/Units 20:51 WBC (3.8-10.6) k/uL RBC (4.30-5.90) m/uL Hgb (13.0-17.5) gm/dL Hct (39.0-53.0) % MCV (80.0-100.0) fL MCH (25.0-35.0) pg MCHC (31.0-37.0) g/dL RDW (11.5-15.5) % Plt Count (150-450) k/uL Neutrophils % % Lymphocytes % % Monocytes % % Eosinophils % % Basophils % % Neutrophils # (1.3-7.7) k/uL Lymphocytes # (1.0-4.8) k/uL Monocytes # (0-1.0) k/uL Eosinophils # (0-0.7) k/uL Basophils # (0-0.2) k/uL D-Dimer 0.25 (<0.60) mg/L FEU Sodium (137-145) mmol/L Potassium (3.5-5.1) mmol/L Chloride (98-107) mmol/L Carbon Dioxide (22-30) mmol/L Anion Gap mmol/L BUN (9-20) mg/dL Creatinine (0.66-1.25) mg/dL Est GFR (CKD-EPI)AfAm (>60 ml/min/1.73 sqM) Est GFR (CKD-EPI)NonAf (>60 ml/min/1.73 sqM) Glucose (74-99) mg/dL Calcium (8.4-10.2) mg/dL Magnesium (1.6-2.3) mg/dL Total Bilirubin (0.2-1.3) mg/dL AST (17-59) U/L ALT (21-72) U/L Alkaline Phosphatase (38-126) U/L Total Creatine Kinase (55-170) U/L CK-MB (CK-2) (0.0-2.4) ng/mL CK-MB (CK-2) Rel Index Troponin I (0.000-0.034) ng/mL Total Protein (6.3-8.2) g/dL Albumin (3.5-5.0) g/dL - EKG Data -: EKG Interpreted by Vt EKG shows normal: sinus rhythm, axis (Normal), intervals (Normal), QRS complexes (Normal), ST-T waves (Normal) Rate: normal (Rate 84 bpm) Interpretation: normal EKG Disposition Clinical Impression: Acute exacerbation of chronic obstructive airways disease Disposition: HOME SELF-CARE Condition: Fair Instructions (If sedation given, give patient instructions): COPD (Chronic Obstructive Pulmonary Disease) ([place]) Prescriptions: predniSONE 60 mg PO DAILY #30 tab Is patient prescribed a controlled substance at d/c from ED?: No Referrals: Frankie Wall DO [Primary Care Provider] - 1-2 days Flakita Arvizu MD [STAFF PHYSICIAN] - 1-2 days
[2018-07-23 21:43] LABS: Creatine Kinase MB 0.9 ng/mL (0.0-2.4); Troponin I <0.012 ng/mL (0.000-0.034)
[2018-07-23 23:38] VITALS: BP 110/74; PULSE 87; RESP 28; TEMP 97.4
== END 2018-07-23 23:35 | disposition home or self-care (01) ==
LOC: EC 20:20
DX: J44.1 Chronic obstructive pulmonary disease with (acute) exacerbation (principal); I48.0 Paroxysmal atrial fibrillation; F17.200 Nicotine dependence, unspecified, uncomplicated; Z79.01 Long term (current) use of anticoagulants; Z79.51 Long term (current) use of inhaled steroids; Z79.899 Other long term (current) drug therapy; Z91.041 Radiographic dye allergy status; Z91.040 Latex allergy status
CPT/HCPCS: 36415; 94640; 93005; 85379; 80053; 82550; 82553; 83735; 84484; 85025; 71046; 99285; J7512

== ENCOUNTER 2018-08-11 12:24 | Emergency (ER) | payer MEDICARE, OTHER ==
[2018-08-11 13:09] VITALS: TEMP 98
[2018-08-11] MEDS ORDERED: IPRATROPIUM-ALBUTEROL 3 ML NEB INHALATION STA (14:15)
[2018-08-11] MEDS ORDERED: methylPREDNISolone SOD SUCCI 125 MG/2 ML VIAL IV STA (14:15)
--- NOTE | 2018-08-11 14:20 | ED ---
SOB HPI - General Chief Complaint: Shortness of Breath Stated Complaint: SOB Time Seen by Provider: 08/11/18 14:06 Source: patient, RN notes reviewed Mode of arrival: ambulatory Limitations: no limitations - History of Present Illness Initial Comments: 73-year-old male presents emergency Department with chief complaint of shortness of breath. Patient has underlying COPD has been smoking for almost 60 years. Patient states that he has been out of his DuoNeb treatments at home and states that he notices increased shortness for the last couple days. He has nonproductive cough. He denies any current chest pain no fevers or chills. Patient has no nausea vomiting diarrhea constipation he has been using his 's albuterol treatments with minimal relief. - Related Data Home Medications Medication Instructions Recorded Confirmed Apixaban [Eliquis] 5 mg PO BID 03/24/18 08/11/18 Tamsulosin HCl [Flomax] 0.8 mg PO HS 03/24/18 08/11/18 Albuterol Inhaler [Ventolin Hfa 1 - 2 puff INHALATION RT-QID PRN 04/20/18 08/11/18 Inhaler] Budesonide-Formot 160-4.5 Mcg 2 puff INHALATION RT-BID 04/20/18 08/11/18 [Symbicort 160-4.5 Mcg Inhaler] Tiotropium [place] [Spiriva] 1 cap INHALATION RT-DAILY 07/01/18 08/11/18 Previous Rx's Medication Instructions Recorded Metoprolol Tartrate [Lopressor] 50 mg PO BID #60 tab 04/04/18 Famotidine [Pepcid] 20 mg PO BID #15 tab 05/01/18 Azithromycin [Zithromax Z-pack] 0 mg PO DIRECTED #1 pack 08/11/18 Ipratropium-Albuterol Nebulize 3 ml INHALATION RT-Q4H PRN #25 08/11/18 [Duoneb 0.5 mg-3 mg/3 ml Soln] ampul.neb predniSONE 50 mg PO DAILY #5 tab 08/11/18 Allergies Allergy/AdvReac Type Severity Reaction Status Date / Time Iodinated Contrast- Oral and Allergy Rash/Hives Verified 08/11/18 14:41 IV Dye latex Allergy Rash/Hives Verified 08/11/18 14:41 Review of Systems ROS Statement: Those systems with pertinent positive or pertinent negative responses have been documented in the HPI. ROS Other: All systems not noted in ROS Statement are negative. Past Medical History Past Medical History: Atrial Fibrillation, COPD, Prostate Disorder Additional Past Medical History / Comment(s): Paroxysmal Afib, BPH History of Any Multi-Drug Resistant Organisms: None Reported Past Surgical History: No Surgical Hx Reported Additional Past Surgical History / Comment(s): Bilateral cataract removals-lens implants, colonoscpoy Past Anesthesia/Blood Transfusion Reactions: No Reported Reaction Additional Past Anesthesia/Blood Transfusion Reaction / Comment(s): has never received any blood transfusions Past Psychological History: No Psychological Hx Reported Smoking Status: Current every day smoker Past Alcohol Use History: None Reported Past Drug Use History: None Reported - Past Family History Mother Family Medical History: AFIB, Dementia Father Family Medical History: Myocardial Infarction ([place]) Additional Family Medical History / Comment(s): in his 70's [place] General Exam Limitations: no limitations General appearance: alert, in no apparent distress Head exam: Present: atraumatic, normocephalic, normal inspection Neck exam: Present: normal inspection. Absent: tenderness, meningismus, lymphadenopathy Respiratory exam: Present: respiratory distress (Mild), wheezes. Absent: normal lung sounds bilaterally, rales, rhonchi, stridor Cardiovascular Exam: Present: regular rate, normal rhythm, normal heart sounds. Absent: systolic murmur, diastolic murmur, rubs, gallop, clicks Neurological exam: Present: alert, oriented X3, CN II-XII intact Skin exam: Present: warm, dry, intact, normal color. Absent: rash Course Vital Signs 08/11/18 08/11/18 08/11/18 13:06 14:03 15:13 Temperature 98.0 F Pulse Rate 84 78 77 Respiratory 24 20 18 Rate Blood Pressure 113/67 118/71 119/73 O2 Sat by Pulse 96 96 97 Oximetry 08/11/18 08/11/18 15:16 15:29 Temperature Pulse Rate 77 76 Respiratory Rate Blood Pressure O2 Sat by Pulse Oximetry Medical Decision Making - Medical Decision Making 73-year-old male presents emergency Department for dyspnea. Patient has COPD and had increased shortness of breath without his DuoNeb treatments. Patient was given DuoNeb treatment, IV steroids and emergency department and has greatly improved. Patient is minimal to no wheezing. Patient's will be discharged with azithromycin, prednisone and DuoNeb treatments - Lab Data Result diagrams: 08/11/18 14:07 08/11/18 14:07 Lab Results 08/11/18 08/11/18 08/11/18 Range/Units 14:07 14:07 14:07 WBC 8.3 (3.8-10.6) k/uL RBC 4.75 (4.30-5.90) m/uL Hgb 15.0 (13.0-17.5) gm/dL Hct 45.5 (39.0-53.0) % MCV 95.7 (80.0-100.0) fL MCH 31.6 (25.0-35.0) pg MCHC 33.0 (31.0-37.0) g/dL RDW 12.3 (11.5-15.5) % Plt Count 240 (150-450) k/uL Neutrophils % 69 % Lymphocytes % 15 % Monocytes % 7 % Eosinophils % 7 % Basophils % 1 % Neutrophils # 5.7 (1.3-7.7) k/uL Lymphocytes # 1.3 (1.0-4.8) k/uL Monocytes # 0.6 (0-1.0) k/uL Eosinophils # 0.6 (0-0.7) k/uL Basophils # 0.0 (0-0.2) k/uL PT 9.9 (9.0-12.0) sec INR 0.9 (<1.2) APTT 25.0 (22.0-30.0) sec Sodium 139 (137-145) mmol/L Potassium 4.2 (3.5-5.1) mmol/L Chloride 105 (98-107) mmol/L Carbon Dioxide 27 (22-30) mmol/L Anion Gap 7 mmol/L BUN 15 (9-20) mg/dL Creatinine 0.80 (0.66-1.25) mg/dL Est GFR (CKD-EPI)AfAm >90 (>60 ml/min/1.73 sqM) Est GFR (CKD-EPI)NonAf 89 (>60 ml/min/1.73 sqM) Glucose 112 H (74-99) mg/dL Calcium 9.5 (8.4-10.2) mg/dL Total Bilirubin 0.5 (0.2-1.3) mg/dL AST 17 (17-59) U/L ALT 19 L (21-72) U/L Alkaline Phosphatase 68 (38-126) U/L Troponin I (0.000-0.034) ng/mL Total Protein 6.6 (6.3-8.2) g/dL Albumin 4.0 (3.5-5.0) g/dL 08/11/18 Range/Units 14:07 WBC (3.8-10.6) k/uL RBC (4.30-5.90) m/uL Hgb (13.0-17.5) gm/dL Hct (39.0-53.0) % MCV (80.0-100.0) fL MCH (25.0-35.0) pg MCHC (31.0-37.0) g/dL RDW (11.5-15.5) % Plt Count (150-450) k/uL Neutrophils % % Lymphocytes % % Monocytes % % Eosinophils % % Basophils % % Neutrophils # (1.3-7.7) k/uL Lymphocytes # (1.0-4.8) k/uL Monocytes # (0-1.0) k/uL Eosinophils # (0-0.7) k/uL Basophils # (0-0.2) k/uL PT (9.0-12.0) sec INR (<1.2) APTT (22.0-30.0) sec Sodium (137-145) mmol/L Potassium (3.5-5.1) mmol/L Chloride (98-107) mmol/L Carbon Dioxide (22-30) mmol/L Anion Gap mmol/L BUN (9-20) mg/dL Creatinine (0.66-1.25) mg/dL Est GFR (CKD-EPI)AfAm (>60 ml/min/1.73 sqM) Est GFR (CKD-EPI)NonAf (>60 ml/min/1.73 sqM) Glucose (74-99) mg/dL Calcium (8.4-10.2) mg/dL Total Bilirubin (0.2-1.3) mg/dL AST (17-59) U/L ALT (21-72) U/L Alkaline Phosphatase (38-126) U/L Troponin I <0.012 (0.000-0.034) ng/mL Total Protein (6.3-8.2) g/dL Albumin (3.5-5.0) g/dL Disposition Clinical Impression: Acute exacerbation of chronic obstructive airways disease Disposition: HOME SELF-CARE Condition: Stable Instructions (If sedation given, give patient instructions): Chronic Bronchitis (ED) Additional Instructions: Please return to the Emergency Department if symptoms worsen or any other concerns. Prescriptions: Ipratropium-Albuterol Nebulize [Duoneb 0.5 mg-3 mg/3 ml Soln] 3 ml INHALATION RT-Q4H PRN #25 ampul.neb PRN Reason: Shortness Of Breath predniSONE 50 mg PO DAILY #5 tab Azithromycin [Zithromax Z-pack] 0 mg PO DIRECTED #1 pack Is patient prescribed a controlled substance at d/c from ED?: No Referrals: Frankie Wall DO [Primary Care Provider] - 1-2 days Time of Disposition: 16:02
[2018-08-11 14:26] LABS: Basophils % (A) 1 %; Eosinophils # (A) 0.6 k/uL (0-0.7); Eosinophils % (A) 7 %; HCT 45.5 % (39.0-53.0); Lymphocytes # (A) 1.3 k/uL (1.0-4.8); Lymphocytes % (A) 15 %; MCH 31.6 pg (25.0-35.0); MCV 95.7 fL (80.0-100.0); Mean Platelet Volume 7.2; Monocytes # (A) 0.6 k/uL (0-1.0); Monocytes % (A) 7 %; Neutrophils # (A) 5.7 k/uL (1.3-7.7); Neutrophils % (A) 69 %; Platelet Count 240 k/uL (150-450); RBC 4.75 m/uL (4.30-5.90); RDW 12.3 % (11.5-15.5); WBC 8.3 k/uL (3.8-10.6)
--- NOTE | 2018-08-11 14:30 | XR ---
EXAMINATION TYPE: XR chest 2V DATE OF EXAM: 08/11/2018 COMPARISON: 07/23/2018 TECHNIQUE: PA and lateral views submitted. HISTORY: Abnormal x-ray FINDINGS: The lungs are clear and there is no pneumothorax, pleural effusion, or focal pneumonia. Emphysemato us changes are seen is a coarsened interstitium suggestive chronic interstitial lung disease. Right u pper lobe 7 mm pulmonary nodule stable. Degenerative change of the spine. IMPRESSION: 1. Stable right upper lobe pulmonary nodule measuring 7 mm. 2. COPD and findings suggestive pulmonary fibrosis.
[2018-08-11 14:35] LABS: INR 0.9 (<1.2); Prothrombin Time 9.9 sec (9.0-12.0)
[2018-08-11 14:36] LABS: ALT 19 U/L (21-72); AST 17 U/L (17-59); African American GFR (CKD) >90 (>60 ml/min/1.73 sqM); Alkaline Phosphatase 68 U/L (38-126); Anion Gap 7 mmol/L; Blood Urea Nitrogen 15 mg/dL (9-20); Calcium 9.5 mg/dL (8.4-10.2); Carbon Dioxide 27 mmol/L (22-30); Chloride 105 mmol/L (98-107); Glucose 112 mg/dL (74-99); Potassium 4.2 mmol/L (3.5-5.1); Sodium 139 mmol/L (137-145); Total Bilirubin 0.5 mg/dL (0.2-1.3); Total Protein 6.6 g/dL (6.3-8.2)
[2018-08-11 15:14] VITALS: RESP 18
[2018-08-11 16:31] VITALS: BP 121/70; PULSE 72
== END 2018-08-11 16:31 | disposition home or self-care (01) ==
LOC: EC 12:24
DX: J44.1 Chronic obstructive pulmonary disease with (acute) exacerbation (principal); I48.0 Paroxysmal atrial fibrillation; N40.0 Benign prostatic hyperplasia without lower urinary tract symptoms; F17.200 Nicotine dependence, unspecified, uncomplicated; Z98.890 Other specified postprocedural states; Z79.01 Long term (current) use of anticoagulants; Z79.51 Long term (current) use of inhaled steroids; Z79.899 Other long term (current) drug therapy; Z91.040 Latex allergy status; Z91.041 Radiographic dye allergy status
CPT/HCPCS: 36415; 94640; 93005; 80053; 84484; 85025; 85610; 85730; 71046; 99285; 96374; J2930

== ENCOUNTER 2018-08-22 19:05 | Observation (INO) | payer MEDICARE, OTHER ==
[2018-08-22] MEDS ORDERED: SODIUM CHLORIDE 0.9% 500 ML 500 ML IV STA (19:31)
[2018-08-22] MEDS ORDERED: methylPREDNISolone SOD SUCCI 125 MG/2 ML VIAL IV STA (19:31)
[2018-08-22] MEDS ORDERED: ALBUTEROL NEBULIZED 2.5 MG/3 ML INHALATION STA (19:31)
--- NOTE | 2018-08-22 19:38 | ED ---
General Adult HPI - General Chief complaint: Shortness of Breath Stated complaint: SOB Time Seen by Provider: 08/22/18 19:10 Source: patient, family, RN notes reviewed Mode of arrival: wheelchair Limitations: no limitations - History of Present Illness Initial comments: This is a 73-year-old male who presents emergency Department with a past history significant for COPD. Patient states over the last 3 days his difficulty breathing is gotten considerably worse is been doing breathing treatments but has not helped. Patient does state he continues to smoke. Patient denies any significant cough denies any sputum production. Patient denies any chest pain or palpitation. Patient denies lightheadedness or dizziness. Patient denies any abdominal pain patient denies nausea vomiting diarrhea per patient denies any fever chills. Patient denies any swelling to legs or calf tenderness. - Related Data Home Medications Medication Instructions Recorded Confirmed Tamsulosin HCl [Flomax] 0.8 mg PO HS 03/24/18 08/22/18 Albuterol Inhaler [Ventolin Hfa 1 - 2 puff INHALATION RT-QID PRN 04/20/18 08/22/18 Inhaler] Budesonide-Formot 160-4.5 Mcg 2 puff INHALATION RT-BID 04/20/18 08/22/18 [Symbicort 160-4.5 Mcg Inhaler] Previous Rx's Medication Instructions Recorded Ipratropium-Albuterol Nebulize 3 ml INHALATION RT-Q4H PRN #25 08/11/18 [Duoneb 0.5 mg-3 mg/3 ml Soln] ampul.neb Allergies Allergy/AdvReac Type Severity Reaction Status Date / Time Iodinated Contrast- Oral and Allergy Rash/Hives Verified 08/22/18 19:35 IV Dye latex Allergy Rash/Hives Verified 08/22/18 19:35 Review of Systems ROS Statement: Those systems with pertinent positive or pertinent negative responses have been documented in the HPI. ROS Other: All systems not noted in ROS Statement are negative. Past Medical History Past Medical History: Atrial Fibrillation, COPD, Prostate Disorder Additional Past Medical History / Comment(s): Paroxysmal Afib, BPH History of Any Multi-Drug Resistant Organisms: None Reported Past Surgical History: No Surgical Hx Reported Additional Past Surgical History / Comment(s): Bilateral cataract removals-lens implants, colonoscpoy Past Anesthesia/Blood Transfusion Reactions: No Reported Reaction Additional Past Anesthesia/Blood Transfusion Reaction / Comment(s): has never received any blood transfusions Past Psychological History: No Psychological Hx Reported Smoking Status: Current every day smoker Past Alcohol Use History: None Reported Past Drug Use History: None Reported - Past Family History Mother Family Medical History: AFIB, Dementia Father Family Medical History: Myocardial Infarction ([place]) Additional Family Medical History / Comment(s): in his 70's [place] General Exam - General Exam Comments Initial Comments: GENERAL: Patient is well-developed and well-nourished. Patient is nontoxic and well- hydrated and is in moderate distress. ENT: Neck is soft and supple. No significant lymphadenopathy is noted. Oropharynx is clear. Moist mucous membranes. Neck has full range of motion without eliciting any pain. EYES: The sclera were anicteric and conjunctiva were pink and moist. Extraocular movements were intact and pupils were equal round and reactive to light. Eyelids were unremarkable. PULMONARY: Patient has diffuse expiratory wheezing CARDIOVASCULAR: There is a regular rate and rhythm without any murmurs gallops or rubs. ABDOMEN: Soft and nontender with normal bowel sounds. No palpable organomegaly was noted. There is no palpable pulsatile mass. SKIN: Skin is clear with no lesions or rashes and otherwise unremarkable. NEUROLOGIC: Patient is alert and oriented x3. Cranial nerves II through XII are grossly intact. Motor and sensory are also intact. Normal speech, volume and content. Symmetrical smile. MUSCULOSKELETAL: Normal extremities with adequate strength and full range of motion. LYMPHATICS: No significant lymphadenopathy is noted PSYCHIATRIC: Normal psychiatric evaluation. Limitations: no limitations Course Vital Signs 08/22/18 08/22/18 08/22/18 19:12 19:50 19:51 Temperature 98.2 F Pulse Rate 98 92 87 Respiratory 20 20 Rate Blood Pressure 119/70 141/78 O2 Sat by Pulse 94 L 94 L Oximetry 08/22/18 08/22/18 08/22/18 20:00 20:03 20:10 Temperature Pulse Rate 80 78 79 Respiratory 18 19 Rate Blood Pressure 141/78 121/85 O2 Sat by Pulse 97 97 Oximetry Medical Decision Making - Medical Decision Making EKG shows normal sinus rhythm at 88 bpm MT interval 160 QRS is 82 QT interval 352 QTC is 425. Patient's EKG shows no ST segment elevation or depression or T wave abnormalities are noted. Patient has had 3 breathing treatments and Solu-Medrol and was doing better but still wheezing diffusely. I spoke with the nurse practitioner for Dr. Segovia and she agreed to admit the patient admitted the patient continue breathing treatments in house and steroids. - Lab Data Result diagrams: 08/22/18 19:40 08/22/18 19:40 Lab Results 08/22/18 08/22/18 08/22/18 Range/Units 19:40 19:40 19:40 WBC 10.3 (3.8-10.6) k/uL RBC 4.83 (4.30-5.90) m/uL Hgb 15.0 (13.0-17.5) gm/dL Hct 44.9 (39.0-53.0) % MCV 92.9 (80.0-100.0) fL MCH 31.0 (25.0-35.0) pg MCHC 33.4 (31.0-37.0) g/dL RDW 12.5 (11.5-15.5) % Plt Count 246 (150-450) k/uL Neutrophils % 67 % Lymphocytes % 18 % Monocytes % 7 % Eosinophils % 7 % Basophils % 0 % Neutrophils # 6.8 (1.3-7.7) k/uL Lymphocytes # 1.8 (1.0-4.8) k/uL Monocytes # 0.7 (0-1.0) k/uL Eosinophils # 0.7 (0-0.7) k/uL Basophils # 0.0 (0-0.2) k/uL PT 10.8 (9.0-12.0) sec INR 1.0 (<1.2) APTT 26.3 (22.0-30.0) sec Sodium 136 L (137-145) mmol/L Potassium 4.5 (3.5-5.1) mmol/L Chloride 102 (98-107) mmol/L Carbon Dioxide 27 (22-30) mmol/L Anion Gap 7 mmol/L BUN 15 (9-20) mg/dL Creatinine 0.83 (0.66-1.25) mg/dL Est GFR (CKD-EPI)AfAm >90 (>60 ml/min/1.73 sqM) Est GFR (CKD-EPI)NonAf 87 (>60 ml/min/1.73 sqM) Glucose 99 (74-99) mg/dL Calcium 9.6 (8.4-10.2) mg/dL Magnesium 2.1 (1.6-2.3) mg/dL Total Bilirubin 0.4 (0.2-1.3) mg/dL AST 19 (17-59) U/L ALT 24 (21-72) U/L Alkaline Phosphatase 71 (38-126) U/L Troponin I (0.000-0.034) ng/mL Total Protein 6.6 (6.3-8.2) g/dL Albumin 4.1 (3.5-5.0) g/dL 08/22/18 Range/Units 19:40 WBC (3.8-10.6) k/uL RBC (4.30-5.90) m/uL Hgb (13.0-17.5) gm/dL Hct (39.0-53.0) % MCV (80.0-100.0) fL MCH (25.0-35.0) pg MCHC (31.0-37.0) g/dL RDW (11.5-15.5) % Plt Count (150-450) k/uL Neutrophils % % Lymphocytes % % Monocytes % % Eosinophils % % Basophils % % Neutrophils # (1.3-7.7) k/uL Lymphocytes # (1.0-4.8) k/uL Monocytes # (0-1.0) k/uL Eosinophils # (0-0.7) k/uL Basophils # (0-0.2) k/uL PT (9.0-12.0) sec INR (<1.2) APTT (22.0-30.0) sec Sodium (137-145) mmol/L Potassium (3.5-5.1) mmol/L Chloride (98-107) mmol/L Carbon Dioxide (22-30) mmol/L Anion Gap mmol/L BUN (9-20) mg/dL Creatinine (0.66-1.25) mg/dL Est GFR (CKD-EPI)AfAm (>60 ml/min/1.73 sqM) Est GFR (CKD-EPI)NonAf (>60 ml/min/1.73 sqM) Glucose (74-99) mg/dL Calcium (8.4-10.2) mg/dL Magnesium (1.6-2.3) mg/dL Total Bilirubin (0.2-1.3) mg/dL AST (17-59) U/L ALT (21-72) U/L Alkaline Phosphatase (38-126) U/L Troponin I <0.012 (0.000-0.034) ng/mL Total Protein (6.3-8.2) g/dL Albumin (3.5-5.0) g/dL Critical Care Time Critical Care Time: Yes Total Critical Care Time: 35 Disposition Clinical Impression: COPD with acute exacerbation Disposition: ADMITTED IP TO THIS HOSP Referrals: Frankie Wall DO [Primary Care Provider] - 1-2 days Time of Disposition: 20:43
[2018-08-22 19:47] LABS: Basophils % (A) 0 %; Eosinophils # (A) 0.7 k/uL (0-0.7); Eosinophils % (A) 7 %; HCT 44.9 % (39.0-53.0); Lymphocytes # (A) 1.8 k/uL (1.0-4.8); Lymphocytes % (A) 18 %; MCHC 33.4 g/dL (31.0-37.0); MCV 92.9 fL (80.0-100.0); Mean Platelet Volume 7.6; Monocytes # (A) 0.7 k/uL (0-1.0); Monocytes % (A) 7 %; Neutrophils # (A) 6.8 k/uL (1.3-7.7); Neutrophils % (A) 67 %; Platelet Count 246 k/uL (150-450); RBC 4.83 m/uL (4.30-5.90); RDW 12.5 % (11.5-15.5); WBC 10.3 k/uL (3.8-10.6)
[2018-08-22 19:55] LABS: Partial Thromboplastin Time 26.3 sec (22.0-30.0); Prothrombin Time 10.8 sec (9.0-12.0)
[2018-08-22 19:57] LABS: ALT 24 U/L (21-72); AST 19 U/L (17-59); African American GFR (CKD) >90 (>60 ml/min/1.73 sqM); Albumin 4.1 g/dL (3.5-5.0); Alkaline Phosphatase 71 U/L (38-126); Anion Gap 7 mmol/L; Blood Urea Nitrogen 15 mg/dL (9-20); Calcium 9.6 mg/dL (8.4-10.2); Carbon Dioxide 27 mmol/L (22-30); Chloride 102 mmol/L (98-107); Glucose 99 mg/dL (74-99); Magnesium 2.1 mg/dL (1.6-2.3); Potassium 4.5 mmol/L (3.5-5.1); Sodium 136 mmol/L (137-145); Total Bilirubin 0.4 mg/dL (0.2-1.3); Total Protein 6.6 g/dL (6.3-8.2)
--- NOTE | 2018-08-22 20:27 | XR ---
EXAMINATION TYPE: XR chest 2V DATE OF EXAM: 08/22/2018 COMPARISON: 08/11/2018 HISTORY: Short of breath TECHNIQUE: Frontal and lateral views of the chest are obtained. FINDINGS: Heart and mediastinum are normal. Lungs are clear of consolidation. There is coarsening of interstitial markings. There are chest leads. IMPRESSION: Interstitial fibrotic changes. Normal heart. No change.
[2018-08-22] MEDS ORDERED: IPRATROPIUM-ALBUTEROL 3 ML NEB INHALATION PRN (21:22)
[2018-08-22] MEDS: methylPREDNISolone SOD SUCCI 125 MG/2 ML VIAL IV SCH (23:58)
[2018-08-23] MEDS ORDERED: ALPRAZolam 0.25 MG TAB PO PRN (01:11)
[2018-08-23] MEDS ORDERED: TEMAZEPAM 15 MG CAP PO PRN (01:11)
[2018-08-23 04:40] VITALS: TEMP 97.4
[2018-08-23] MEDS: methylPREDNISolone SOD SUCCI 125 MG/2 ML VIAL IV SCH ×2 (05:32→12:54)
[2018-08-23] MEDS: IPRATROPIUM-ALBUTEROL 3 ML NEB INHALATION SCH ×2 (07:13→11:03)
[2018-08-23] MEDS ORDERED: LEVOFLOXACIN 500MG-D5W PMX 500 MG in DEXTROSE/WATER 1 100ML.BAG IVPB SCH (07:15)
[2018-08-23] MEDS ORDERED: PANTOPRAZOLE 40 MG TABLET PO SCH (07:30)
[2018-08-23] MEDS ORDERED: SYMBICORT 160-4.5 MCG INHALER INHALATION SCH (08:00)
--- NOTE | 2018-08-23 08:06 | HP ---
HISTORY AND PHYSICAL DATE OF SERVICE: 08/22/2018 CHIEF COMPLAINT: Shortness of breath. HISTORY OF PRESENT ILLNESS: This 73-year-old gentleman with a past medical history of multiple medical problems including atrial fibrillation, COPD, history of paroxysmal atrial fibrillation, BPH, being followed by Dr. Wall in the outpatient setting complaining of shortness of breath for the last several days. The patient had difficulty speaking and also some cough and sputum. The patient continues smoking. Patient came to [facility] and admitted for further evaluation and treatment. Chest x-ray showed no evidence of pneumonia. Some interstitial fibrotic changes are noted. PAST MEDICAL HISTORY: History of COPD, atrial fibrillation, history of paroxysmal fibrillation, BPH. MEDICATIONS: Prior to admission include home medications are: 1. Flomax 0.8 q.h.s. 2. DuoNeb q.4 p.r.n. 3. Symbicort 160/4.5 two puffs b.i.d. 4. Ventolin HFA 1-2 puffs q.i.d. p.r.n. ALLERGIES: IODINATED CONTRAST DYES, LATEX. FAMILY HISTORY: Atrial fibrillation, dementia. SOCIAL HISTORY: History of smoking , no history of alcohol. REVIEW OF SYSTEMS: ENT: Diminished vision. Diminished hearing. CARDIOVASCULAR as mentioned earlier. RESPIRATORY: As mentioned earlier. GI no nausea or vomiting. : No dysuria. NERVOUS SYSTEM: No numbness or weakness. ALLERGY/IMMUNOLOGY: No asthma or hayfever. MUSCULOSKELETAL: As mentioned earlier. HEMATOLOGY/ONCOLOGY: No history of anemia. ENDOCRINE: No history of diabetes or hypothyroidism. CONSTITUTIONAL: As mentioned earlier. DERMATOLOGY: Negative. RHEUMATOLOGY: Negative. PSYCHIATRY: As mentioned earlier. PHYSICAL EXAMINATION: Alert and oriented times three. Pulse 94, blood pressure 140/89, respiration 20, temperature 97.9, pulse ox 98% on nasal cannula 2 L. HEENT: Conjunctivae normal. Oral mucosa moist. NECK is no jugular venous distention. No carotid bruit. No lymph node enlargement. Cardiovascular system: S1, S2 muffled. No S3, no S4. RESPIRATION: Breath sounds diminished in the bases. Bilateral scattered rhonchi and crackles. Expiratory wheezing also present. ABDOMEN: Soft, nontender. No mass palpable. LEGS: No edema. No swelling. NERVOUS SYSTEM: Higher functions as mentioned earlier. Moves all 4 limbs. No focal motor or sensory deficits. LYMPHATICS: No lymph nodes palpable in the neck, axillae or groin. SKIN: No ulcer, rashes or bleeding. JOINTS: No active deforming arthropathy. LABS: CBC within normal limits. Sodium 136. ASSESSMENT: 1. Chronic obstructive pulmonary disease exacerbation acute purulent tracheobronchitis. 2. Hyponatremia, mild. 3. Continued ongoing nicotine dependence. 4. Paroxysmal atrial fibrillation. 5. Chronic obstructive pulmonary disease. 6. History of benign prostatic hypertrophy. 7. History of bilateral cataracts. RECOMMENDATIONS AND DISCUSSION: In this 73-year-old gentleman who presented with multiple medical issues, at this time, I recommend to continue current medications, and symptomatic treatment. Continue bronchodilators. Resume the home medications. Consult Dr. Arvizu. Empiric antibiotics. Smoking cessation. Guarded prognosis because of multiple complex medical issues. Further recommendations to follow. A copy of dictation being forwarded to Dr. Wall who is the primary physician. MMADITI / DARLINGN: [id number] / MTDD
[2018-08-23 08:34] LABS: Basophils % (A) 0 %; Eosinophils % (A) 0 %; HCT 50.2 % (39.0-53.0); HGB 16.1 gm/dL (13.0-17.5); Lymphocytes # (A) 0.7 k/uL (1.0-4.8); Lymphocytes % (A) 7 %; MCH 30.9 pg (25.0-35.0); MCHC 32.1 g/dL (31.0-37.0); MCV 96.2 fL (80.0-100.0); Mean Platelet Volume 7.3; Monocytes # (A) 0.1 k/uL (0-1.0); Monocytes % (A) 1 %; Neutrophils % (A) 91 %; Platelet Count 259 k/uL (150-450); RBC 5.22 m/uL (4.30-5.90); RDW 12.5 % (11.5-15.5)
[2018-08-23 08:55] LABS: African American GFR (CKD) >90 (>60 ml/min/1.73 sqM); Anion Gap 12 mmol/L; Blood Urea Nitrogen 16 mg/dL (9-20); Calcium 9.6 mg/dL (8.4-10.2); Carbon Dioxide 25 mmol/L (22-30); Chloride 100 mmol/L (98-107); Glucose 152 mg/dL (74-99); Potassium 4.8 mmol/L (3.5-5.1); Sodium 137 mmol/L (137-145)
[2018-08-23] MEDS ORDERED: HEPARIN SODIUM,PORCINE 5,000 UNIT/ML 1 ML VIAL SQ SCH (09:00)
[2018-08-23] MEDS ORDERED: NICOTINE 14MG/24HR PATCH TRANSDERM SCH (09:00)
--- NOTE | 2018-08-23 11:58 | P.CNPUL ---
History of Present Illness Consult date: 08/23/18 Reason for consult: COPD Chief complaint: Shortness of breath History of present illness: This is a 73-year-old white male with history of COPD, chronic atrial fibrillation, benign prostatic hypertrophy, normally the patient is maintained on DuoNeb, Symbicort, and Flomax. Unfortunately the patient continues to smoke, is at least a [id number] smoker, presented to the ER with mostly several days history of shortness of breath cough and wheezing. Cough is productive with yellow phlegm. No fever no chills no hemoptysis, chest x-ray on admission showed mostly minimal interstitial fibrotic changes, COPD, no evidence of pneumonia. Patient was admitted, started on multiple bronchodilators, steroids, antibiotics, and he seems to be doing much better today compared to how he felt yesterday. Again less cough and less wheezing and shortness of breath. Review of Systems Constitutional: Denies any fever or chills, denies any weight loss. Denies any weakness. HEENT: Denies any sore throat, denies any earache, denies any diplopia, denies any dizziness. Pulmonary: As noted in HPI mostly cough wheezing shortness of breath. Cardiac: Denies any chest pain at present, no palpitations, no diaphoresis. GI: Denies any nausea vomiting abdominal pain. Genitourinary: Denies any dysuria patient does have symptoms of prostatism., Maintained on Flomax. Endocrine: Denies any heat or cold intolerance, denies any polyuria polyphagia or polydipsia. Mus[place] skeletal: Denies any aches or pains, denies any arthralgia or myalgia. Skin: Denies any rashes. Psychiatric: Denies any symptoms of active depression. Hematologic: Denies any clotting bleeding or bruising. Past Medical History Past Medical History: Atrial Fibrillation, COPD, Prostate Disorder Additional Past Medical History / Comment(s): Paroxysmal Afib, BPH History of Any Multi-Drug Resistant Organisms: None Reported Past Surgical History: No Surgical Hx Reported Additional Past Surgical History / Comment(s): Bilateral cataract removals-lens implants, colonoscpoy Past Anesthesia/Blood Transfusion Reactions: No Reported Reaction Additional Past Anesthesia/Blood Transfusion Reaction / Comment(s): has never received any blood transfusions Past Psychological History: No Psychological Hx Reported Additional Psychological History / Comment(s): Pt resides with his spouse and their son. They live in a downstairs apartment. They moved to this area in Apr. from [facility]. Pt manages his own medications. He has a nebulizer. His son cooks and drives pt to [employer]. Smoking Status: Current every day smoker Past Alcohol Use History: None Reported Additional Past Alcohol Use History / Comment(s): Pt started smoking age 12(1957) got up to 5 ppd for many years then cut down to 3 ppd and now 4-5 cig per day but nont even that much since not feeling well lately. Past Drug Use History: None Reported - Past Family History Mother Family Medical History: AFIB, Dementia Father Family Medical History: Myocardial Infarction ([place]) Additional Family Medical History / Comment(s): in his 70's [place] Medications and Allergies Home Medications Medication Instructions Recorded Confirmed Type Tamsulosin HCl [Flomax] 0.8 mg PO HS 03/24/18 08/22/18 History Albuterol Inhaler [Ventolin Hfa 1 - 2 puff INHALATION RT-QID PRN 04/20/18 08/22/18 History Inhaler] Budesonide-Formot 160-4.5 Mcg 2 puff INHALATION RT-BID 04/20/18 08/22/18 History [Symbicort 160-4.5 Mcg Inhaler] Ipratropium-Albuterol Nebulize 3 ml INHALATION RT-Q4H PRN #25 08/11/18 08/22/18 Rx [Duoneb 0.5 mg-3 mg/3 ml Soln] ampul.neb Allergies Allergy/AdvReac Type Severity Reaction Status Date / Time Iodinated Contrast- Oral and Allergy Rash/Hives Verified 08/22/18 19:35 IV Dye latex Allergy Rash/Hives Verified 08/22/18 19:35 Physical Exam Vitals: Vital Signs Temp Pulse Pulse Resp BP BP Pulse Ox 08/23/18 11:17 78 08/23/18 11:03 74 08/23/18 08:20 96 20 08/23/18 07:31 78 08/23/18 07:14 74 08/23/18 04:39 97.4 F L 96 20 115/73 98 08/22/18 22:34 97.9 F 94 20 156/89 98 08/22/18 21:10 84 19 126/75 96 08/22/18 20:50 92 20 130/84 96 08/22/18 20:30 84 19 121/85 96 08/22/18 20:10 79 19 121/85 97 08/22/18 20:03 78 08/22/18 20:00 80 18 141/78 97 08/22/18 19:51 87 08/22/18 19:50 92 20 141/78 94 L 08/22/18 19:12 98.2 F 98 20 119/70 94 L Intake and Output 08/22/18 08/23/18 08/23/18 22:59 06:59 14:59 Other: Voiding Method Toilet Toilet # Voids 1 1 Weight 72.575 kg Physical exam revealed a 73-year-old white male in no distress. Very pleasant. Head: Atraumatic, normocephalic. HEENT:[Neck is supple.] [No neck masses.] [No thyromegaly.] [No JVD.] Chest: [Diminished breath sounds at the bases, wheezing on forced expiratory maneuver only. Symmetrical chest expansion. No chest wall tenderness. Cardiac Exam: [Normal S1 and S2, no S3 gallop, no murmur.. Abdomen: [Soft, nontender, no megaly, no rebound, no guarding, normal bowel sounds.] Extremities: [No clubbing, no edema, no cyanosis.] Neurological Exam: [No focal neurologic deficit.] Alert and oriented 3. Psychiatric: Normal mood, normal affect, and intact mental status examination. Lymphatics: No lymphadenopathy. Skin: No rashes. Musculoskeletal no deformities, normal range of motion, no weakness. Results - Laboratory Findings CBC and BMP: 08/23/18 07:58 08/23/18 07:58 PT/INR, D-dimer PT 10.8 sec (9.0-12.0) 08/22/18 19:40 INR 1.0 (<1.2) 08/22/18 19:40 Abnormal lab findings: Abnormal Labs 08/22/18 08/23/18 08/23/18 19:40 07:58 07:58 WBC 11.0 H Neutrophils # 10.0 H Lymphocytes # 0.7 L Sodium 136 L Glucose 152 H - Diagnostic Findings Chest x-ray: image reviewed (As noted in HPI.) Assessment and Plan Assessment: Impression: 1 acute exacerbation of COPD 2 acute purulent tracheobronchitis 3 tobacco dependence syndrome 4 history of paroxysmal atrial fibrillation 5 benign prostatic hypertrophy Recommendation: Patient was counseled regarding smoking cessation, reviewed and discussed with the patient his present medications including steroids, DuoNeb updrafts, and patient could be considered for discharge planning today, must follow-up with me on outpatient basis regarding his COPD and for further assessment. If discharged home today the patient will be discharged on prednisone 30 mg tapered over 2 weeks, Symbicort, DuoNeb updrafts, and antibiotics for 10 days. Time with Patient: Greater than 30
[2018-08-23 12:02] VITALS: BP 143/82; PULSE 90; RESP 18
[2018-08-23] MEDS ORDERED: TAMSULOSIN 0.4 MG CAP.ER.24H PO SCH (21:00)
[2018-08-23] MEDS ORDERED: LEVOFLOXACIN 500 MG TAB PO SCH (22:00)
--- NOTE | 2018-08-24 00:57 | DS ---
DISCHARGE SUMMARY DATE OF SERVICE: 08/23/2018. FINAL DIAGNOSES: 1. Chronic obstructive pulmonary disease acute exacerbation with acute purulent tracheobronchitis. 2. Hyponatremia, mild, improved. 3. Continued ongoing nicotine dependence. 4. Paroxysmal atrial fibrillation. 5. Chronic obstructive pulmonary disease history. 6. History of benign prostatic hypertrophy. 7. History of bilateral cataracts. DISCHARGE: The patient will be discharged in stable condition with guarded prognosis. Discharge cleared by Dr. Arvizu. HISTORY: This 73-year-old gentleman with a past medical history of multiple medical problems being followed by Dr. Wall in the outpatient setting. The patient has COPD exacerbation, acute purulent tracheobronchitis. Patient treated with bronchodilators, antibiotics steroids. Patient improved significantly. Patient Dr. Arvizu saw the patient and recommended outpatient followup. On exam, vital signs are stable. Cardio system: S1, S2 muffled. Respirations: Breath sounds diminished in the bases. A few scattered rhonchi. Abdomen soft. Nervous system: No focal deficits. DISCHARGE ADVICE AND MEDICATIONS: 1. Diet is cardiac diet. 2. Activity limited until follow up. 3. Follow up with Dr. Wall 1-2 days. 4. Follow up with Dr. Arvizu as recommended. MEDICATIONS: 1. Flomax 0.8 q.h.s. 2. Symbicort 160/0.5 two puffs b.i.d. 3. Albuterol p.r.n. 4. DuoNeb q.i.d. and p.r.n. 5. Habitrol 14 daily. 6. No smoking. 7. Levaquin 500 mg daily for 5 days. 8. Prednisone taper 40 mg daily for 3 days, 30 for 3 days, 20 for 3 days and then 10 for 3 days. Follow up labs as an outpatient. MMODL / IJN: [id number] /
== END 2018-08-23 14:40 | disposition home or self-care (01) ==
LOC: EC 19:05 → 3NMEDONC 20:46
PROVIDERS: ADMIT Internal Medicine; ATTEND Internal Medicine
DX: J44.1 Chronic obstructive pulmonary disease with (acute) exacerbation (principal); J44.0 Chronic obstructive pulmonary disease with (acute) lower respiratory infection; J20.9 Acute bronchitis, unspecified; E87.1 Hypo-osmolality and hyponatremia; I48.0 Paroxysmal atrial fibrillation; F17.210 Nicotine dependence, cigarettes, uncomplicated; H54.7 Unspecified visual loss; H91.90 Unspecified hearing loss, unspecified ear; N40.0 Benign prostatic hyperplasia without lower urinary tract symptoms; Z79.51 Long term (current) use of inhaled steroids; Z79.899 Other long term (current) drug therapy; Z91.041 Radiographic dye allergy status; Z91.040 Latex allergy status; Z98.42 Cataract extraction status, left eye; Z98.41 Cataract extraction status, right eye; Z96.1 Presence of intraocular lens; Z82.49 Family history of ischemic heart disease and other diseases of the circulatory system; Z81.8 Family history of other mental and behavioral disorders
CPT/HCPCS: 96376 ×2; 96361; 96374; 99291; 36415; 94640 ×3; 93005; 80053; 80048; 83735; 84484; 85025 ×2; 85610; 85730; 71046; G0378 ×2; J2930 ×2

== ENCOUNTER 2018-09-14 21:22 | Inpatient (IN) | payer MEDICARE, OTHER ==
[2018-09-14] MEDS ORDERED: IPRATROPIUM-ALBUTEROL 3 ML NEB INHALATION STA ×2 (21:53→23:28)
[2018-09-14] MEDS ORDERED: SODIUM CHLORIDE 0.9% 500 ML 500 ML IV STA (21:53)
[2018-09-14] MEDS ORDERED: methylPREDNISolone SOD SUCCI 125 MG/2 ML VIAL IV STA (21:56)
[2018-09-14 22:24] LABS: Basophils # (A) 0.1 k/uL (0-0.2); Basophils % (A) 1 %; Eosinophils # (A) 0.5 k/uL (0-0.7); Eosinophils % (A) 6 %; HCT 38.4 % (39.0-53.0); HGB 13.2 gm/dL (13.0-17.5); Lymphocytes # (A) 1.1 k/uL (1.0-4.8); Lymphocytes % (A) 14 %; MCH 31.3 pg (25.0-35.0); MCHC 34.4 g/dL (31.0-37.0); Mean Platelet Volume 7.5; Monocytes # (A) 0.6 k/uL (0-1.0); Monocytes % (A) 8 %; Neutrophils # (A) 4.9 k/uL (1.3-7.7); Neutrophils % (A) 67 %; Platelet Count 179 k/uL (150-450); RBC 4.21 m/uL (4.30-5.90); RDW 14.3 % (11.5-15.5); WBC 7.4 k/uL (3.8-10.6)
[2018-09-14 22:26] LABS: MCV 91.2 fL (80.0-100.0)
[2018-09-14 22:28] LABS: ALT 23 U/L (21-72); AST 15 U/L (17-59); African American GFR (CKD) >90 (>60 ml/min/1.73 sqM); Albumin 3.5 g/dL (3.5-5.0); Alkaline Phosphatase 68 U/L (38-126); Anion Gap 8 mmol/L; Blood Urea Nitrogen 26 mg/dL (9-20); Calcium 9.2 mg/dL (8.4-10.2); Carbon Dioxide 22 mmol/L (22-30); Chloride 107 mmol/L (98-107); Glucose 123 mg/dL (74-99); Magnesium 2.1 mg/dL (1.6-2.3); Potassium 4.1 mmol/L (3.5-5.1); Sodium 137 mmol/L (137-145); Total Bilirubin 0.4 mg/dL (0.2-1.3); Total Protein 5.9 g/dL (6.3-8.2)
[2018-09-14 22:29] LABS: INR 0.9 (<1.2); Partial Thromboplastin Time 25.9 sec (22.0-30.0)
--- NOTE | 2018-09-14 23:27 | XR ---
EXAM: XR Chest, 2 Views CLINICAL HISTORY: ITS.REASON XR Reason: difficulty breathing TECHNIQUE: Frontal and lateral views of the chest. COMPARISON: 08/22/18 IMPRESSION: Unchanged heart size. Small opacity in the left lower lobe, possibly atelectasis versus aspiration. No pleural effusion.
--- NOTE | 2018-09-14 23:29 | ED ---
SOB HPI - General Chief Complaint: Shortness of Breath Stated Complaint: KEERTHI Time Seen by Provider: 09/14/18 21:38 Source: patient Mode of arrival: ambulatory Limitations: no limitations - History of Present Illness Initial Comments: Shawn is a 73-year-old male with past medical history of severe COPD who presents to the emergency department today for evaluation of progressively worsening cough and shortness of breath. Patient reports he's been using his inhalers at home with no relief. He reports he has developed a mildly productive cough but feels that it's becoming more productive. Patient reports he has coughing spells and feels as though he can't catch his breath. He denies any associated fevers, chills, nausea, vomiting or chest pain. - Related Data Home Medications Medication Instructions Recorded Confirmed Tamsulosin HCl [Flomax] 0.8 mg PO HS 03/24/18 09/14/18 Albuterol Inhaler [Ventolin Hfa 1 - 2 puff INHALATION RT-QID PRN 04/20/18 09/14/18 Inhaler] Budesonide-Formot 160-4.5 Mcg 2 puff INHALATION RT-BID 04/20/18 09/14/18 [Symbicort 160-4.5 Mcg Inhaler] Apixaban [Eliquis] 5 mg PO BID 09/14/18 09/14/18 Metoprolol Tartrate [Lopressor] 50 mg PO BID 09/14/18 09/14/18 predniSONE 10 mg PO BID 09/14/18 09/14/18 Previous Rx's Medication Instructions Recorded Ipratropium-Albuterol Nebulize 3 ml INHALATION RT-Q6H #25 08/23/18 [Duoneb 0.5 mg-3 mg/3 ml Soln] ampul.neb Allergies Allergy/AdvReac Type Severity Reaction Status Date / Time Iodinated Contrast- Oral and Allergy Rash/Hives Verified 09/14/18 21:51 IV Dye latex Allergy Rash/Hives Verified 09/14/18 21:51 Review of Systems ROS Statement: Those systems with pertinent positive or pertinent negative responses have been documented in the HPI. ROS Other: All systems not noted in ROS Statement are negative. Past Medical History Past Medical History: Atrial Fibrillation, COPD, Prostate Disorder Additional Past Medical History / Comment(s): Paroxysmal Afib, BPH History of Any Multi-Drug Resistant Organisms: None Reported Past Surgical History: No Surgical Hx Reported Additional Past Surgical History / Comment(s): Bilateral cataract removals-lens implants, colonoscpoy Past Anesthesia/Blood Transfusion Reactions: No Reported Reaction Additional Past Anesthesia/Blood Transfusion Reaction / Comment(s): has never received any blood transfusions Past Psychological History: No Psychological Hx Reported Smoking Status: Current every day smoker Past Alcohol Use History: None Reported Past Drug Use History: None Reported - Past Family History Mother Family Medical History: AFIB, Dementia Father Family Medical History: Myocardial Infarction ([place]) Additional Family Medical History / Comment(s): in his 70's [place] General Exam - General Exam Comments Initial Comments: Physical Exam GENERAL: Patient appears older than stated age, whethered HENT: Normocephalic, Atraumatic. EYES: PERRL, EOMI PULMONARY: Tachypnea with expiratory wheezing in all lung meyers CARDIOVASCULAR: RRR ABDOMEN: Soft and nontender with normal bowel sounds. SKIN: Skin is clear with no lesions or rashes and otherwise unremarkable. : Deferred NEUROLOGIC: Patient is alert and oriented x3. Moving all extremities spontaneously MUSCULOSKELETAL: Normal extremities with adequate strength and full range of motion. No lower extremity swelling or edema. No calf tenderness. PSYCHIATRIC: Normal psychiatric evaluation Limitations: no limitations Course Vital Signs 09/14/18 09/14/18 09/14/18 21:29 22:52 23:14 Temperature 98.4 F Pulse Rate 91 90 88 Respiratory 18 18 Rate Blood Pressure 107/67 98/68 O2 Sat by Pulse 94 L 96 Oximetry 09/14/18 09/15/18 09/15/18 23:23 00:53 03:38 Temperature 98.2 F Pulse Rate 88 93 78 Respiratory 18 18 Rate Blood Pressure 117/78 123/83 O2 Sat by Pulse 92 L 93 L Oximetry Medical Decision Making - Medical Decision Making The patient was seen and evaluated, history is obtained from patient and review of medical record This is a 73-year-old gentleman is been compliant with his home regimen for COPD but presents with progressively worsening cough and shortness of breath neck sign patient is witnessed to have multiple paroxysms of minimally productive cough and which oxygen saturations declined to the mid 80s and heart rate increases however patient recovers quickly. DuoNeb's and steroids were ordered chest x-ray with a possible left lower lobe infiltrate azithromycin and Rocephin were ordered Patient's age multiple medical comorbidities and severity of this, I do feel he warrants admission to the hospital for further evaluation. Patient is agreeable to this. Patient will be admitted on the COPD protocol. - Lab Data Result diagrams: 09/14/18 22:12 09/14/18 22:12 Lab Results 09/14/18 09/14/18 09/14/18 Range/Units 22:12 22:12 22:12 WBC 7.4 (3.8-10.6) k/uL RBC 4.21 L (4.30-5.90) m/uL Hgb 13.2 (13.0-17.5) gm/dL Hct 38.4 L (39.0-53.0) % MCV 91.2 D (80.0-100.0) fL MCH 31.3 (25.0-35.0) pg MCHC 34.4 (31.0-37.0) g/dL RDW 14.3 (11.5-15.5) % Plt Count 179 (150-450) k/uL Neutrophils % 67 % Lymphocytes % 14 % Monocytes % 8 % Eosinophils % 6 % Basophils % 1 % Neutrophils # 4.9 (1.3-7.7) k/uL Lymphocytes # 1.1 (1.0-4.8) k/uL Monocytes # 0.6 (0-1.0) k/uL Eosinophils # 0.5 (0-0.7) k/uL Basophils # 0.1 (0-0.2) k/uL PT (9.0-12.0) sec INR (<1.2) APTT (22.0-30.0) sec Sodium 137 (137-145) mmol/L Potassium 4.1 (3.5-5.1) mmol/L Chloride 107 (98-107) mmol/L Carbon Dioxide 22 (22-30) mmol/L Anion Gap 8 mmol/L BUN 26 H (9-20) mg/dL Creatinine 0.92 (0.66-1.25) mg/dL Est GFR (CKD-EPI)AfAm >90 (>60 ml/min/1.73 sqM) Est GFR (CKD-EPI)NonAf 82 (>60 ml/min/1.73 sqM) Glucose 123 H (74-99) mg/dL Calcium 9.2 (8.4-10.2) mg/dL Magnesium 2.1 (1.6-2.3) mg/dL Total Bilirubin 0.4 (0.2-1.3) mg/dL AST 15 L (17-59) U/L ALT 23 (21-72) U/L Alkaline Phosphatase 68 (38-126) U/L Troponin I (0.000-0.034) ng/mL NT-Pro-B Natriuret Pep 59 pg/mL Total Protein 5.9 L (6.3-8.2) g/dL Albumin 3.5 (3.5-5.0) g/dL 09/14/18 09/14/18 Range/Units 22:12 22:12 WBC (3.8-10.6) k/uL RBC (4.30-5.90) m/uL Hgb (13.0-17.5) gm/dL Hct (39.0-53.0) % MCV (80.0-100.0) fL MCH (25.0-35.0) pg MCHC (31.0-37.0) g/dL RDW (11.5-15.5) % Plt Count (150-450) k/uL Neutrophils % % Lymphocytes % % Monocytes % % Eosinophils % % Basophils % % Neutrophils # (1.3-7.7) k/uL Lymphocytes # (1.0-4.8) k/uL Monocytes # (0-1.0) k/uL Eosinophils # (0-0.7) k/uL Basophils # (0-0.2) k/uL PT 10.0 (9.0-12.0) sec INR 0.9 (<1.2) APTT 25.9 (22.0-30.0) sec Sodium (137-145) mmol/L Potassium (3.5-5.1) mmol/L Chloride (98-107) mmol/L Carbon Dioxide (22-30) mmol/L Anion Gap mmol/L BUN (9-20) mg/dL Creatinine (0.66-1.25) mg/dL Est GFR (CKD-EPI)AfAm (>60 ml/min/1.73 sqM) Est GFR (CKD-EPI)NonAf (>60 ml/min/1.73 sqM) Glucose (74-99) mg/dL Calcium (8.4-10.2) mg/dL Magnesium (1.6-2.3) mg/dL Total Bilirubin (0.2-1.3) mg/dL AST (17-59) U/L ALT (21-72) U/L Alkaline Phosphatase (38-126) U/L Troponin I <0.012 (0.000-0.034) ng/mL NT-Pro-B Natriuret Pep pg/mL Total Protein (6.3-8.2) g/dL Albumin (3.5-5.0) g/dL - EKG Data -: EKG Interpreted by Nv EKG Comments: EKG was obtained at 2145, rate is 89 rhythm is sinus normal axis, intervals are no acute ST elevations or depressions there is no evidence of acute ischemia or infarction Disposition Clinical Impression: Acute exacerbation of chronic obstructive airways disease, Shortness of breath, Hypoxia Disposition: ADMITTED IP TO THIS HOSP Condition: Stable Is patient prescribed a controlled substance at d/c from ED?: No
[2018-09-15] MEDS ORDERED: AZITHROMYCIN 500 MG in SODIUM CHLORIDE 0.9% 250 ML IVPB ONE ×2
[2018-09-15] MEDS ORDERED: cefTRIAXone IN SWFI 1,000 MG/10 ML SYRINGE IVP ONE
[2018-09-15] MEDS: IPRATROPIUM-ALBUTEROL 3 ML NEB INHALATION PRN ×2 (07:10→21:12)
[2018-09-15] MEDS: APIXABAN 5 MG TAB PO SCH ×2 (09:23→21:24)
[2018-09-15] MEDS: METOPROLOL TARTRATE 50 MG TAB PO SCH ×2 (09:23→21:24)
[2018-09-15] MEDS: predniSONE 20 MG TAB PO SCH (09:23)
[2018-09-15 09:31] VITALS: BMI 27.0
--- NOTE | 2018-09-15 15:10 | P.HPIM ---
History of Present Illness Chief Complaint: Shortness of breath and cough This very pleasant 73-year-old with a past medical history significant for COPD, comes into the ER for above-mentioned complaint. The patient says that he's been having shortness of breath and cough which is progressively worsening not getting better. He says that he was using inhalers and breathing treatments at home but they are not helping. He said that the coughing spells are so bad that he was not able to catch his breath so he decided to come to the ER for further evaluation and management. Patient otherwise does not complain of any fever or chills, no chest pain or racing heart, no abdominal pain, nausea and vomiting, or diarrhea constipation, no tingling numbness on in the extremities, no itch no rash Review of Systems All systems: negative Past Medical History Past Medical History: Atrial Fibrillation, COPD, Prostate Disorder Additional Past Medical History / Comment(s): Paroxysmal Afib, BPH History of Any Multi-Drug Resistant Organisms: None Reported Past Surgical History: No Surgical Hx Reported Additional Past Surgical History / Comment(s): Bilateral cataract removals-lens implants, colonoscpoy Past Anesthesia/Blood Transfusion Reactions: No Reported Reaction Additional Past Anesthesia/Blood Transfusion Reaction / Comment(s): has never received any blood transfusions Past Psychological History: No Psychological Hx Reported Additional Psychological History / Comment(s): Pt resides with his spouse and their son. They live in a downstairs apartment. They moved to this area in Apr. from [facility]. Pt manages his own medications. He has a nebulizer. His son cooks and drives pt to [employer]. Smoking Status: Current every day smoker Past Alcohol Use History: None Reported Additional Past Alcohol Use History / Comment(s): Pt started smoking age 12(1957) got up to 5 ppd for many years then cut down to 3 ppd and now 4-5 cig per day but nont even that much since not feeling well lately. Past Drug Use History: None Reported - Past Family History Mother Family Medical History: AFIB, Dementia Father Family Medical History: Myocardial Infarction ([place]) Additional Family Medical History / Comment(s): in his 70's [place] Medications and Allergies Home Medications Medication Instructions Recorded Confirmed Type Tamsulosin HCl [Flomax] 0.8 mg PO HS 03/24/18 09/14/18 History Albuterol Inhaler [Ventolin Hfa 1 - 2 puff INHALATION RT-QID PRN 04/20/18 09/14/18 History Inhaler] Budesonide-Formot 160-4.5 Mcg 2 puff INHALATION RT-BID 04/20/18 09/14/18 History [Symbicort 160-4.5 Mcg Inhaler] Ipratropium-Albuterol Nebulize 3 ml INHALATION RT-Q6H #25 08/23/18 09/14/18 Rx [Duoneb 0.5 mg-3 mg/3 ml Soln] ampul.neb Apixaban [Eliquis] 5 mg PO BID 09/14/18 09/14/18 History Metoprolol Tartrate [Lopressor] 50 mg PO BID 09/14/18 09/14/18 History predniSONE 10 mg PO BID 09/14/18 09/14/18 History Allergies Allergy/AdvReac Type Severity Reaction Status Date / Time Iodinated Contrast- Oral and Allergy Rash/Hives Verified 09/14/18 21:51 IV Dye latex Allergy Rash/Hives Verified 09/14/18 21:51 Physical Exam Vitals: Vital Signs Temp Pulse Pulse Resp BP BP Pulse Ox 09/15/18 14:37 97.4 F L 98 20 129/80 94 L 09/15/18 07:47 97.6 F 94 18 124/79 95 09/15/18 07:19 94 09/15/18 07:11 92 09/15/18 06:50 97.2 F L 85 14 132/79 99 09/15/18 06:49 15 09/15/18 05:24 92 17 09/15/18 03:38 98.2 F 78 18 123/83 93 L 09/15/18 00:53 93 18 117/78 92 L 09/14/18 23:23 88 09/14/18 23:14 88 09/14/18 22:52 90 18 98/68 96 09/14/18 21:29 98.4 F 91 18 107/67 94 L Intake and Output 09/15/18 09/15/18 09/15/18 06:59 14:59 22:59 Other: Voiding Method Toilet # Voids 3 On exam, alert and oriented x3. HEENT: Conjunctivae normal. eyes normal. NECK: No JVD. No thyroid enlargement. No LNs CARDIOVASCULAR: S1, S2 muffled. No murmur RESPIRATION: Mild wheezing appreciated bilaterally ABDOMEN: Soft, nontender . No guarding. no masses palpable. No ascites, No hepatosplenomegaly.Bowel sounds heard. LEGS: No edema. no swelling NERVOUS SYSTEM: Cranial N 2-12 grossly normal. Moves all 4 limbs. No focal deficits. No sensory deficit. No signs of cerebellar dysfucntion. Skin: no ulcer no rash Results CBC & Chem 7: 09/14/18 22:12 09/14/18 22:12 Labs: Abnormal Lab Results - Last 24 Hours (Table) 09/14/18 09/14/18 Range/Units 22:12 22:12 RBC 4.21 L (4.30-5.90) m/uL Hct 38.4 L (39.0-53.0) % BUN 26 H (9-20) mg/dL Glucose 123 H (74-99) mg/dL AST 15 L (17-59) U/L Total Protein 5.9 L (6.3-8.2) g/dL Thrombosis Risk Factor Assmnt - Choose All That Apply Each Factor Represents 1 point: Abnormal pulmonary function (COPD), Obesity (BMI >25) Each Risk Factor Represents 2 Points: Age 61-74 years Thrombosis Risk Factor Assessment Total Risk Factor Score: 4 Thrombosis Risk Factor Assessment Level: Moderate Risk Assessment and Plan Assessment: Acute COPD exacerbation History of KielGregoria fib on Eliquis history of prostate disorder Plan - We'll admit the patient MedSurg with telemetry - We'll continue steroids, breathing treatments and antibiotics - We will monitor the patient to see how is doing - We'll resume the patient's home medications - DVT and GI prophylaxis - We'll order for lab work in the morning - Patient is full code
[2018-09-15] MEDS ORDERED: TAMSULOSIN 0.4 MG CAP.ER.24H PO SCH (21:00)
[2018-09-15] MEDS: SYMBICORT 160-4.5 MCG INHALER INHALATION SCH (21:12)
[2018-09-15] MEDS: DOXYCYCLINE 100 MG in SODIUM CHLORIDE 0.9% 100 ML IVPB SCH (21:23)
[2018-09-16] MEDS: IPRATROPIUM-ALBUTEROL 3 ML NEB INHALATION PRN ×2 (00:47→10:44)
[2018-09-16 08:42] VITALS: RESP 18; TEMP 97.9
[2018-09-16] MEDS: METOPROLOL TARTRATE 50 MG TAB PO SCH (08:48)
[2018-09-16] MEDS: APIXABAN 5 MG TAB PO SCH (08:48)
[2018-09-16] MEDS: predniSONE 20 MG TAB PO SCH (08:48)
[2018-09-16] MEDS: DOXYCYCLINE 100 MG in SODIUM CHLORIDE 0.9% 100 ML IVPB SCH (10:31)
[2018-09-16] MEDS: SYMBICORT 160-4.5 MCG INHALER INHALATION SCH (10:45)
--- NOTE | 2018-09-16 13:35 | P.DS ---
Providers Date of admission: 09/14/18 23:31 Expected date of discharge: 09/16/18 Attending physician: Daniel Wooten MD Primary care physician: [facility] Course: This very pleasant 73-year-old with a past medical history significant for COPD, comes into the ER for above-mentioned complaint. The patient says that he's been having shortness of breath and cough which is progressively worsening not getting better. He says that he was using inhalers and breathing treatments at home but they are not helping. He said that the coughing spells are so bad that he was not able to catch his breath so he decided to come to the ER for further evaluation and management. Patient otherwise does not complain of any fever or chills, no chest pain or racing heart, no abdominal pain, nausea and vomiting, or diarrhea constipation, no tingling numbness on in the extremities, no itch no rash On 09/16/2018 The patient says that he's doing much better His cough and shortness of breath is better Is not wheezing anymore He does not complain of any chest pain racing heart, no cough no shortness of breath, no abdominal pain, no nausea no vomiting, no tingling numbness of any 70s, and additional rash On exam, alert and oriented x3. HEENT: Conjunctivae normal. eyes normal. NECK: No JVD. No thyroid enlargement. No LNs CARDIOVASCULAR: S1, S2 positive RESPIRATION: Breath sounds diminished in the bases. No rhonchi or crackles. No bronchial breathing. ABDOMEN: Soft, nontender . No guarding. no masses palpable. No ascites, No hepatosplenomegaly.Bowel sounds heard. LEGS: No edema. no swelling NERVOUS SYSTEM: Cranial N 2-12 grossly normal. Moves all 4 limbs. No focal deficits. No sensory deficit. No signs of cerebellar dysfucntion. Skin: no ulcer no rash The patient will does be discharged on Augmentin for 7 days He was discharged on tapering dose of steroids He will have to follow up with his primary care doctor He wanted to follow up with his personal banker Patient Condition at Discharge: Stable Plan - Discharge Summary Discharge Rx Participant: Yes New Discharge Prescriptions: New Amoxic-Pot Clav 875-125Mg [Augmentin 875-125] 1 tab PO BID #14 tab predniSONE 0 mg PO DIRECTED #30 tab Continue Tamsulosin HCl [Flomax] 0.8 mg PO HS Budesonide-Formot 160-4.5 Mcg [Symbicort 160-4.5 Mcg Inhaler] 2 puff INHALATION RT-BID Albuterol Inhaler [Ventolin Hfa Inhaler] 1 - 2 puff INHALATION RT-QID PRN PRN Reason: Shortness Of Breath Or Wheezing Ipratropium-Albuterol Nebulize [Duoneb 0.5 mg-3 mg/3 ml Soln] 3 ml INHALATION RT-Q6H #25 ampul.neb Metoprolol Tartrate [Lopressor] 50 mg PO BID Apixaban [Eliquis] 5 mg PO BID Discontinued predniSONE 10 mg PO BID Discharge Medication List Tamsulosin HCl [Flomax] 0.8 mg PO HS 03/24/18 [History] Albuterol Inhaler [Ventolin Hfa Inhaler] 1 - 2 puff INHALATION RT-QID PRN 04/20/18 [History] Budesonide-Formot 160-4.5 Mcg [Symbicort 160-4.5 Mcg Inhaler] 2 puff INHALATION RT-BID 04/20/18 [History] Ipratropium-Albuterol Nebulize [Duoneb 0.5 mg-3 mg/3 ml Soln] 3 ml INHALATION RT-Q6H #25 ampul.neb 08/23/18 [Rx] Apixaban [Eliquis] 5 mg PO BID 09/14/18 [History] Metoprolol Tartrate [Lopressor] 50 mg PO BID 09/14/18 [History] Amoxic-Pot Clav 875-125Mg [Augmentin 875-125] 1 tab PO BID #14 tab 09/16/18 [Rx] predniSONE 0 mg PO DIRECTED #30 tab 09/16/18 [Rx] Follow up Appointment(s)/Referral(s): Frankie Wall DO [Primary Care Provider] - 1-2 days
[2018-09-16 14:54] VITALS: BP 128/75; PULSE 95
== END 2018-09-16 15:25 | disposition home or self-care (01) | DRG 192 ==
LOC: EC 21:22 → 4SSUR 23:31
PROVIDERS: ADMIT Internal Medicine; ATTEND Internal Medicine
DX: J44.1 Chronic obstructive pulmonary disease with (acute) exacerbation (principal); I48.0 Paroxysmal atrial fibrillation; N40.0 Benign prostatic hyperplasia without lower urinary tract symptoms; R09.02 Hypoxemia; Z79.01 Long term (current) use of anticoagulants; Z79.51 Long term (current) use of inhaled steroids; Z79.899 Other long term (current) drug therapy; Z82.49 Family history of ischemic heart disease and other diseases of the circulatory system; F17.210 Nicotine dependence, cigarettes, uncomplicated; Z79.52 Long term (current) use of systemic steroids; Z98.42 Cataract extraction status, left eye; Z98.41 Cataract extraction status, right eye; Z96.1 Presence of intraocular lens; Z91.041 Radiographic dye allergy status; Z91.040 Latex allergy status
CPT/HCPCS: 36415; 71046; 80053; 83735; 83880; 84484; 85025; 85610; 85730; 87040; 93005; 94640; 94760; 96361; 96365; 96366; 96375; 99285

== ENCOUNTER → 2018-09-20 | Outpatient (CLI) | payer MEDICARE ==
--- NOTE | 2018-09-22 09:40 | PE ---
Nuclear medicine PET/CT HISTORY: Multiple lung nodules Patient received 10.1 mCi F-18 FDG intravenously in delayed scanning was performed from the skull bas e to the mid thighs. Localization and attenuation correction CT scan was performed. Correlation to CT chest 05/22/2018 Neck and chest: There is a focus of hypermetabolic uptake associated with the left parotid gland post erior to the mandible medially, SUV is 4.5. The mass measures 14 mm. Some muscular uptake present wit hin the left neck and proximal upper extremities. There is no evident cervical, axillary, mediastinal, or hilar adenopathy. Shotty nodes are present wi thin the mediastinum. Calcified nodule is present in the right upper lobe consistent with granuloma, calcification likely developing in the interval. No abnormal uptake noted within the lungs. Emphysema tous changes are again noted. ABDOMEN: No evident adrenal mass. No liver mass or retroperitoneal adenopathy. There is hiatal hernia present. Infrarenal abdominal aorta measures 3.3 cm, right common iliac artery is also dilated at 18 mm. There is no suspicious hypermetabolic uptake within the abdomen. Osseous structures: No suspicious mass. Degenerative disc changes are present in the visualized spine . No suspicious hypermetabolic uptake. IMPRESSION: No suspicious uptake identified in patient's lung nodules, follow-up suggested. Suspiciou s mass within the left parotid gland region. Abdominal aortic ectasia as described.
== END | disposition home or self-care (01) ==
LOC: RADPETMAIN 10:10
PROVIDERS: ATTEND Nurse Practitioner Adult Health
DX: I77.811 Abdominal aortic ectasia (principal)
CPT/HCPCS: 78815; A9552

== ENCOUNTER 2018-09-25 19:36 | Observation (INO) | payer MEDICARE ==
[2018-09-25] MEDS ORDERED: methylPREDNISolone SOD SUCCI 125 MG/2 ML VIAL IV STA (20:24)
[2018-09-25] MEDS ORDERED: MAGNESIUM SULFATE-D5W PMX 1 GM in DEXTROSE/WATER 1 100ML.BAG IVPB STA (20:24)
[2018-09-25] MEDS ORDERED: IPRATROPIUM-ALBUTEROL 3 ML NEB INHALATION STA (20:24)
[2018-09-25 21:02] LABS: Basophils # (A) 0.1 k/uL (0-0.2); Basophils % (A) 1 %; Eosinophils # (A) 0.6 k/uL (0-0.7); Eosinophils % (A) 6 %; HCT 43.2 % (39.0-53.0); HGB 14.2 gm/dL (13.0-17.5); Lymphocytes % (A) 19 %; MCH 30.8 pg (25.0-35.0); MCHC 32.8 g/dL (31.0-37.0); MCV 93.7 fL (80.0-100.0); Mean Platelet Volume 7.1; Monocytes # (A) 0.6 k/uL (0-1.0); Monocytes % (A) 6 %; Neutrophils # (A) 7.1 k/uL (1.3-7.7); Neutrophils % (A) 67 %; Platelet Count 261 k/uL (150-450); RBC 4.61 m/uL (4.30-5.90); WBC 10.7 k/uL (3.8-10.6)
[2018-09-25 21:10] LABS: ALT 17 U/L (21-72); AST 17 U/L (17-59); African American GFR (CKD) >90 (>60 ml/min/1.73 sqM); Albumin 4.3 g/dL (3.5-5.0); Alkaline Phosphatase 68 U/L (38-126); Anion Gap 10 mmol/L; Blood Urea Nitrogen 30 mg/dL (9-20); Calcium 9.6 mg/dL (8.4-10.2); Carbon Dioxide 22 mmol/L (22-30); Chloride 106 mmol/L (98-107); Glucose 100 mg/dL (74-99); Potassium 4.6 mmol/L (3.5-5.1); Sodium 138 mmol/L (137-145); Total Bilirubin 0.3 mg/dL (0.2-1.3); Total Protein 7.1 g/dL (6.3-8.2)
[2018-09-25 21:15] LABS: Partial Thromboplastin Time 27.4 sec (22.0-30.0); Prothrombin Time 10.4 sec (9.0-12.0)
--- NOTE | 2018-09-25 22:39 | XR ---
EXAM: XR Chest, 2 Views CLINICAL HISTORY: difficulty breathing TECHNIQUE: Frontal and lateral views of the chest. COMPARISON: 09/14/2018 FINDINGS: Lungs: Persistent interstitial prominence. Similar opacity in the right lower lung may be related to soft tissue attenuation. No consolidation. Pleural space: Unremarkable. No pneumothorax. Heart: Stable cardiomediastinal silhouette. Mediastinum: See above. Bones/joints: No acute osseous abnormality. IMPRESSION: Persistent bilateral interstitial prominence is nonspecific and may be related to edema or chronic interstitial lung disease.
--- NOTE | 2018-09-26 00:17 | US ---
EXAM: US Duplex Right Lower Extremity Veins CLINICAL HISTORY: Pain TECHNIQUE: Real-time duplex ultrasound scan of the right lower extremity veins integrating B-mode two-dimensional vascular structure, Doppler spectral analysis, color flow Doppler imaging and compression. COMPARISON: No relevant prior studies available. FINDINGS: Deep veins: Unremarkable. Normal compression and normal response to augmentation. Superficial veins: Unremarkable as visualized. Soft tissues: No acute findings. IMPRESSION: No evidence of deep venous thrombosis in the right lower extremity.
--- NOTE | 2018-09-26 00:36 | ED ---
SOB HPI - General Chief Complaint: Shortness of Breath Stated Complaint: SOB Time Seen by Provider: 09/25/18 19:47 Source: patient Mode of arrival: wheelchair Limitations: no limitations - History of Present Illness Initial Comments: The patient is a 73-year-old male with past medical history of COPD who presents to the emergency room with reported shortness of breath. Patient was recently hospitalized and treated for pneumonia. He does not require O2 at home. States that earlier today he was having increased shortness of breath and wheezing. He 's been using his nebulizer without improvement. He denies a cough, fevers or chills. He denies hemoptysis. No history of DVT or PEs. No family history of blood clotting disorders. Denies any unilateral calf pain or swelling. Does admit to a charley horse sensation in his right knee earlier this morning. He is on Eliquis for A. fib. States he hasn't missed any doses. He does see Dr. Poole from pulmonology. He denies any chest pain or abdominal pain. Denies any back or flank pain. No changes in bowel or bladder habits. There are no other alleviating, precipitating or modifying factors - Related Data Home Medications Medication Instructions Recorded Confirmed Tamsulosin HCl [Flomax] 0.8 mg PO HS 03/24/18 09/25/18 Albuterol Inhaler [Ventolin Hfa 1 - 2 puff INHALATION RT-QID PRN 04/20/18 09/25/18 Inhaler] Budesonide-Formot 160-4.5 Mcg 2 puff INHALATION RT-BID 04/20/18 09/25/18 [Symbicort 160-4.5 Mcg Inhaler] Apixaban [Eliquis] 5 mg PO BID 09/14/18 09/25/18 Metoprolol Tartrate [Lopressor] 50 mg PO BID 09/14/18 09/25/18 Famotidine 20 mg PO BID 09/24/18 09/25/18 Ipratropium-Albuterol Nebulize 3 ml INHALATION RT-QID 09/25/18 09/25/18 [Duoneb 0.5 mg-3 mg/3 ml Soln] Allergies Allergy/AdvReac Type Severity Reaction Status Date / Time Iodinated Contrast- Oral and Allergy Rash/Hives Verified 09/25/18 20:27 IV Dye latex Allergy Rash/Hives Verified 09/25/18 20:27 Review of Systems ROS Statement: Those systems with pertinent positive or pertinent negative responses have been documented in the HPI. ROS Other: All systems not noted in ROS Statement are negative. Past Medical History Past Medical History: Atrial Fibrillation, COPD, Prostate Disorder Additional Past Medical History / Comment(s): Paroxysmal Afib, BPH History of Any Multi-Drug Resistant Organisms: None Reported Past Surgical History: No Surgical Hx Reported Additional Past Surgical History / Comment(s): Bilateral cataract removals-lens implants, colonoscpoy Past Anesthesia/Blood Transfusion Reactions: No Reported Reaction Additional Past Anesthesia/Blood Transfusion Reaction / Comment(s): has never received any blood transfusions Past Psychological History: No Psychological Hx Reported Smoking Status: Current every day smoker Past Alcohol Use History: None Reported Past Drug Use History: None Reported - Past Family History Mother Family Medical History: AFIB, Dementia Father Family Medical History: Myocardial Infarction ([place]) Additional Family Medical History / Comment(s): in his 70's from [place] General Exam Limitations: no limitations Course Vital Signs 09/25/18 09/25/18 09/25/18 19:44 22:09 22:19 Temperature 97.6 F Pulse Rate 88 88 79 Pulse Rate [ Pulse Oximetery ] Respiratory 24 Rate Blood Pressure 117/72 Blood Pressure [Right Arm] O2 Sat by Pulse 93 L Oximetry 09/25/18 09/26/18 09/26/18 23:02 01:40 01:50 Temperature 98.0 F Pulse Rate 77 86 85 Pulse Rate [ Pulse Oximetery ] Respiratory 18 Rate Blood Pressure 113/68 Blood Pressure [Right Arm] O2 Sat by Pulse 96 Oximetry 09/26/18 09/26/18 02:03 03:15 Temperature 97.7 F 97.7 F Pulse Rate 80 Pulse Rate [ 87 Pulse Oximetery ] Respiratory 19 16 Rate Blood Pressure 117/71 Blood Pressure 120/73 [Right Arm] O2 Sat by Pulse 98 98 Oximetry Medical Decision Making - Medical Decision Making Upon arrival the patient is placed into room 8. He is hooked up to continuous pulse ox and cardiac monitoring. A 12-lead EKG was performed on the patient. I did discuss diagnosis, differential and treatment options. The patient was provided with a DuoNeb breathing treatment. I also provided with him with 125 mg Solu-Medrol 1 g of magnesium. There were traces were conducted. Patient has a chest x-ray performed. I performed a Doppler of the patient's right lower extremity due to his reported also cramping. Upon return results I did reevaluate the patient. He does feel much improved at this time. Because of the patient's significant with thecal breathing on arrival I did recommend admission for overnight observation. The patient did agree to this. We'll continue breathing treatments and steroids in the hospital. I did consult Dr. Poole. The patient remained in stable condition awaiting a bed on the floor - Lab Data Result diagrams: 09/25/18 20:53 09/25/18 20:53 Lab Results 09/25/18 09/25/18 09/25/18 Range/Units 20:53 20:53 20:53 WBC 10.7 H (3.8-10.6) k/uL RBC 4.61 (4.30-5.90) m/uL Hgb 14.2 (13.0-17.5) gm/dL Hct 43.2 (39.0-53.0) % MCV 93.7 (80.0-100.0) fL MCH 30.8 (25.0-35.0) pg MCHC 32.8 (31.0-37.0) g/dL RDW 13.0 (11.5-15.5) % Plt Count 261 (150-450) k/uL Neutrophils % 67 % Lymphocytes % 19 % Monocytes % 6 % Eosinophils % 6 % Basophils % 1 % Neutrophils # 7.1 (1.3-7.7) k/uL Lymphocytes # 2.0 (1.0-4.8) k/uL Monocytes # 0.6 (0-1.0) k/uL Eosinophils # 0.6 (0-0.7) k/uL Basophils # 0.1 (0-0.2) k/uL PT 10.4 (9.0-12.0) sec INR 1.0 (<1.2) APTT 27.4 (22.0-30.0) sec Sodium 138 (137-145) mmol/L Potassium 4.6 (3.5-5.1) mmol/L Chloride 106 (98-107) mmol/L Carbon Dioxide 22 (22-30) mmol/L Anion Gap 10 mmol/L BUN 30 H (9-20) mg/dL Creatinine 0.87 (0.66-1.25) mg/dL Est GFR (CKD-EPI)AfAm >90 (>60 ml/min/1.73 sqM) Est GFR (CKD-EPI)NonAf 86 (>60 ml/min/1.73 sqM) Glucose 100 H (74-99) mg/dL Calcium 9.6 (8.4-10.2) mg/dL Magnesium 2.0 (1.6-2.3) mg/dL Total Bilirubin 0.3 (0.2-1.3) mg/dL AST 17 (17-59) U/L ALT 17 L (21-72) U/L Alkaline Phosphatase 68 (38-126) U/L NT-Pro-B Natriuret Pep pg/mL Total Protein 7.1 (6.3-8.2) g/dL Albumin 4.3 (3.5-5.0) g/dL 09/25/18 Range/Units 20:53 WBC (3.8-10.6) k/uL RBC (4.30-5.90) m/uL Hgb (13.0-17.5) gm/dL Hct (39.0-53.0) % MCV (80.0-100.0) fL MCH (25.0-35.0) pg MCHC (31.0-37.0) g/dL RDW (11.5-15.5) % Plt Count (150-450) k/uL Neutrophils % % Lymphocytes % % Monocytes % % Eosinophils % % Basophils % % Neutrophils # (1.3-7.7) k/uL Lymphocytes # (1.0-4.8) k/uL Monocytes # (0-1.0) k/uL Eosinophils # (0-0.7) k/uL Basophils # (0-0.2) k/uL PT (9.0-12.0) sec INR (<1.2) APTT (22.0-30.0) sec Sodium (137-145) mmol/L Potassium (3.5-5.1) mmol/L Chloride (98-107) mmol/L Carbon Dioxide (22-30) mmol/L Anion Gap mmol/L BUN (9-20) mg/dL Creatinine (0.66-1.25) mg/dL Est GFR (CKD-EPI)AfAm (>60 ml/min/1.73 sqM) Est GFR (CKD-EPI)NonAf (>60 ml/min/1.73 sqM) Glucose (74-99) mg/dL Calcium (8.4-10.2) mg/dL Magnesium (1.6-2.3) mg/dL Total Bilirubin (0.2-1.3) mg/dL AST (17-59) U/L ALT (21-72) U/L Alkaline Phosphatase (38-126) U/L NT-Pro-B Natriuret Pep 45 pg/mL Total Protein (6.3-8.2) g/dL Albumin (3.5-5.0) g/dL - EKG Data EKG Comments: EKG demonstrates a sinus rhythm with a ventricular rate of 78. FL interval 13. QRS 86. QTC of 451. There are no acute ST segment elevations or depressions concerning for ischemic changes. Disposition Clinical Impression: COPD with acute exacerbation, Shortness of breath Disposition: ADMITTED IP TO THIS HOSP Condition: Stable Is patient prescribed a controlled substance at d/c from ED?: No Decision to Admit Reason: Admit from EC Decision Date: 09/26/18 Decision Time: 00:36
[2018-09-26] MEDS ORDERED: NALOXONE 0.4 MG/ML 1 ML VIAL IV PRN (00:37)
[2018-09-26] MEDS: IPRATROPIUM-ALBUTEROL 3 ML NEB INHALATION SCH ×7 (01:39→23:16)
[2018-09-26] MEDS: SYMBICORT 160-4.5 MCG INHALER INHALATION SCH ×2 (07:25→19:54)
[2018-09-26] MEDS: METOPROLOL TARTRATE 50 MG TAB PO SCH ×2 (08:54→21:28)
[2018-09-26] MEDS: methylPREDNISolone SOD SUCCI 40 MG/ML 1 ML VIAL IV SCH ×2 (08:54→15:59)
[2018-09-26] MEDS: APIXABAN 5 MG TAB PO SCH ×2 (08:54→21:29)
[2018-09-26] MEDS: FAMOTIDINE 20 MG TAB PO SCH ×2 (08:54→21:29)
--- NOTE | 2018-09-26 14:02 | P.CNPUL ---
History of Present Illness Consult date: 09/26/18 Requesting physician: Daniel Wooten Reason for consult: dyspnea, COPD Chief complaint: Shortness of breath History of present illness: This is a very pleasant 73-year-old male patient who follows with Dr. Wall as his primary care physician and has a history of chronic and ongoing tobacco dependence of 60 years, chronic obstructive pulmonary disease with FEV1 value 53% of predicted, atrial fibrillation, benign prostatic hyperplasia. He also has a history of pulmonary nodules and recent PET scan showed no SUV uptake in the lungs he was noted to have a left parotid gland with positive SUV and was planning for an FNA with interventional radiology next week. He presented here to the emergency room yesterday with complaints of increasing shortness of breath, cough and congestion. Chest x-ray shows persistent bilateral interstitial prominence mostly nonspecific with some chronic interstitial fibrotic changes. He was admitted for COPD exacerbation. He is seen today in follow-up on the regular medical floor. He is awake and alert in no acute distress. He is maintaining O2 saturations in the 90s on 3 L/m per nasal cannula. He's been afebrile. Hemodynamically stable. White count 10.7. Hemoglobin 14.2. Creatinine 0.87. Review of Systems REVIEW OF SYSTEMS: CONSTITUTIONAL: Denies any recent significant weight loss or weight gain. EYES: Denies change in vision. EARS, NOSE, MOUTH, THROAT: Denies headaches, denies sore throat. CARDIOVASCULAR: Denies chest pain, palpitations or syncopal episodes. RESPIRATORY: Positive for shortness of breath, cough, congestion or hemoptysis. GASTROINTESTINAL: Denies change in appetite, denies abdominal pain GENITOURINARY: Denies hematuria, denies infections. MUSKULOSKELETAL: Denies pain, denies swelling. INTEGUMENTARY: Denies rash, denies eczema. NEUROLOGICAL: Denies recent memory loss, no recent seizure activity. PSYCHIATRIC: Denies anxiety, denies depression. HEMATOLOGIC/LYMPHATIC: Denies anemia, denies enlarged lymph nodes. Past Medical History Past Medical History: Atrial Fibrillation, COPD, Prostate Disorder Additional Past Medical History / Comment(s): Paroxysmal Afib, BPH History of Any Multi-Drug Resistant Organisms: None Reported Past Surgical History: No Surgical Hx Reported Additional Past Surgical History / Comment(s): Bilateral cataract removals-lens implants, colonoscpoy Past Anesthesia/Blood Transfusion Reactions: No Reported Reaction Additional Past Anesthesia/Blood Transfusion Reaction / Comment(s): has never received any blood transfusions Past Psychological History: No Psychological Hx Reported Smoking Status: Current every day smoker Past Alcohol Use History: None Reported Past Drug Use History: None Reported - Past Family History Mother Family Medical History: AFIB, Dementia Father Family Medical History: Myocardial Infarction ([place]) Additional Family Medical History / Comment(s): in his 70's from [place] Medications and Allergies Home Medications Medication Instructions Recorded Confirmed Type Tamsulosin HCl [Flomax] 0.8 mg PO HS 03/24/18 09/25/18 History Albuterol Inhaler [Ventolin Hfa 1 - 2 puff INHALATION RT-QID PRN 04/20/18 09/25/18 History Inhaler] Budesonide-Formot 160-4.5 Mcg 2 puff INHALATION RT-BID 04/20/18 09/25/18 History [Symbicort 160-4.5 Mcg Inhaler] Apixaban [Eliquis] 5 mg PO BID 09/14/18 09/25/18 History Metoprolol Tartrate [Lopressor] 50 mg PO BID 09/14/18 09/25/18 History Famotidine 20 mg PO BID 09/24/18 09/25/18 History Ipratropium-Albuterol Nebulize 3 ml INHALATION RT-QID 09/25/18 09/25/18 History [Duoneb 0.5 mg-3 mg/3 ml Soln] Allergies Allergy/AdvReac Type Severity Reaction Status Date / Time Iodinated Contrast- Oral and Allergy Rash/Hives Verified 09/25/18 20:27 IV Dye latex Allergy Rash/Hives Verified 09/25/18 20:27 Physical Exam Vitals: Vital Signs Temp Pulse Pulse Pulse Resp BP BP 09/26/18 11:10 80 09/26/18 11:00 78 09/26/18 08:00 57 L 16 09/26/18 07:40 84 09/26/18 07:25 76 09/26/18 07:00 97.8 F 57 L 16 122/67 09/26/18 04:35 80 09/26/18 04:25 80 09/26/18 03:15 97.7 F 87 16 120/73 09/26/18 02:03 97.7 F 80 19 117/71 09/26/18 01:50 85 09/26/18 01:40 86 09/25/18 23:02 98.0 F 77 18 113/68 09/25/18 22:19 79 09/25/18 22:09 88 09/25/18 19:44 97.6 F 88 24 117/72 Pulse Ox 09/26/18 11:10 09/26/18 11:00 09/26/18 08:00 09/26/18 07:40 09/26/18 07:25 09/26/18 07:00 97 09/26/18 04:35 09/26/18 04:25 09/26/18 03:15 98 09/26/18 02:03 98 09/26/18 01:50 09/26/18 01:40 09/25/18 23:02 96 09/25/18 22:19 09/25/18 22:09 09/25/18 19:44 93 L Intake and Output 09/25/18 09/26/18 09/26/18 22:59 06:59 14:59 Intake Total 10 Balance 10 Intake: Oral 10 Other: Weight 74.843 kg GENERAL EXAM: Pleasant 73-year-old gentleman. Alert, active, comfortable in no apparent distress. HEAD: Normocephalic. EYES: Normal reaction of pupils, equal size. NOSE: Clear with pink turbinates. THROAT: No erythema or exudates. NECK: No masses, no JVD. CHEST: No chest wall deformity. LUNGS: Equal air entry with bilateral end expiratory wheeze, diminished CVS: S1 and S2 normal with no audible murmur, regular rhythm. ABDOMEN: No hepatosplenomegaly, normal bowel sounds, no guarding or rigidity. SPINE: No scoliosis or deformity SKIN: No rashes CENTRAL NERVOUS SYSTEM: No focal deficits, tone is normal in all 4 extremities. EXTREMITIES: There is no peripheral edema. No clubbing, no cyanosis. Peripheral pulses are intact. Results - Laboratory Findings CBC and BMP: 09/25/18 20:53 09/25/18 20:53 PT/INR, D-dimer PT 10.4 sec (9.0-12.0) 09/25/18 20:53 INR 1.0 (<1.2) 09/25/18 20:53 Abnormal lab findings: Abnormal Labs 09/25/18 09/25/18 20:53 20:53 WBC 10.7 H BUN 30 H Glucose 100 H ALT 17 L - Diagnostic Findings Chest x-ray: image reviewed Assessment and Plan Assessment: Impression: #1 Acute exacerbation of chronic obstructive pulmonary disease in a patient with FEV1 value 53% of predicted. #2 Chronic and ongoing tobacco dependence of greater than 60 years. #3 Recent admissions for COPD. Chronic fibrotic changes on chest x-ray. #4 Pulmonary nodules with negative PET scan. #5 Left parotid gland highly given PET scan, pending FNA. #6 Hypertension. #7 History of paroxysmal atrial fibrillation anticoagulated with Eliquis. #8 Benign prostatic hyperplasia, on Flomax. Plan: The patient was seen and evaluated by Dr. Tucker. We will continue with his current treatment plan including DuoNeb inhalations, Symbicort inhalations, IV Solu-Medrol. Probable home and the a.m. We'll continue to follow make further recommendations based on his clinical status. I, the cosigning physician, performed a history & physical examination of the patient. Lungs sounds with bilateral end expiratory wheeze. Maintaining good O2 saturations in the 90s on 3 L/m per nasal cannula. I discussed the assessment and plan of care with my nurse practitioner, Qi Saez. I attest to the above note as dictated by her. Time with Patient: Greater than 30
[2018-09-26] MEDS ORDERED: ALPRAZolam 0.25 MG TAB PO PRN (15:44)
[2018-09-26] MEDS ORDERED: HYDROcodone/APAP 5-325MG 1 EACH TAB PO PRN (15:44)
[2018-09-26] MEDS: NICOTINE 14MG/24HR PATCH TRANSDERM SCH (15:51)
[2018-09-26 17:37] LABS: Glucose,Whole Blood 193 mg/dL (75-99)
[2018-09-26] MEDS: INSULIN ASPART (NovoLOG) 100 UNIT/ML VIAL SQ SCH ×2 (17:49→21:28)
--- NOTE | 2018-09-26 17:57 | HP ---
HISTORY AND PHYSICAL DATE OF SERVICE: 09/26/2018 CHIEF COMPLAINT: Shortness of breath. HISTORY OF PRESENT ILLNESS: This 73-year-old gentleman with a past medical history of multiple medical problems including atrial fibrillation, COPD, history of paroxysmal atrial fibrillation, BPH continues to smoke. Patient complaining of increasing shortness of breath and cough for the past several days. Patient came to [facility] and was admitted for further evaluation and treatment. There is no history of fever, rigors or chills. No history of headache, loss of consciousness or seizures. A chest x-ray done on admission which I personally reviewed, showed some chronic interstitial changes. Dr. Tucker's evaluation in progress at this time. There is no history of fever, rigors or chills. No history of headache, loss of consciousness or seizures at this time. PAST MEDICAL HISTORY: History of atrial fibrillation, COPD, BPH, history of paroxysmal atrial fibrillation, history of bilateral cataracts. MEDICATION: Home medications are: 1. Flomax 0.2 q.h.s. 2. Lopressor 50 mg p.o. b.i.d. 3. DuoNeb q.i.d. 4. Famotidine 20 mg p.o. b.i.d. 5. Symbicort 160/12.5 two puffs b.i.d. 6. Eliquis 5 mg p.o. b.i.d. 7. Ventolin 1-2 puffs q.i.d. p.r.n. ALLERGIES: IODINATED CONTRAST DYES and LATEX. FAMILY HISTORY: History of atrial fibrillation and dementia. SOCIAL HISTORY: History of smoking, continued ongoing as mentioned earlier. REVIEW OF SYSTEMS: ENT: Diminished vision. Diminished hearing. CARDIOVASCULAR: No angina or palpitations. RESPIRATORY: As mentioned earlier. GI: As mentioned earlier. no dysuria or hematuria. CENTRAL NERVOUS SYSTEM: No numbness or weakness. ALLERGY/IMMUNOLOGY: No asthma. No hayfever. MUSCULOSKELETAL: As mentioned earlier. HEMATOLOGY/ONCOLOGY: No history of anemia. ENDOCRINE: No history of diabetes or hypothyroidism. CONSTITUTIONAL: As mentioned earlier. DERMATOLOGY: Negative. RHEUMATOLOGY negative. PSYCHIATRY as mentioned earlier. PHYSICAL EXAMINATION: Alert and oriented x2. Pulse is 89. Blood pressure 124/66, respiration 12, temperature 98 degrees, pulse ox 94% on 3 L. HEENT: Conjunctivae normal. NECK: No jugular venous distention. CARDIOVASCULAR: S1, S2 muffled. RESPIRATORY: Breath sounds diminished in the bases. Bilateral scattered rhonchi and crackles. Expiratory wheezing also present. Breathing efforts are prolonged and exertional. ABDOMEN: Soft, nontender. No mass palpable. LEGS: No edema, no swelling. NERVOUS SYSTEM: Higher functions as mentioned earlier. Moves all 4 limbs. No focal motor or sensory deficits. Lymphatics: No lymph nodes palpable in the neck, axillae or groin. SKIN: No ulcers, rashes or bleeding. JOINTS: No active deforming arthropathy. LABS: WBC 10.7, hemoglobin 14.2, sodium 130, potassium 4.6. ASSESSMENT: 1. Chronic obstructive pulmonary disease acute exacerbation with acute purulent tracheobronchitis. 2. Continued ongoing nicotine dependence. 3. History of paroxysmal atrial fibrillation. 4. History of benign prostatic hypertrophy. 5. History of continued ongoing nicotine dependence. 6. Increased WBC. 7. Chronic fibrotic changes in the chest x-ray. 8. Pulmonary nodules with negative PET scan. RECOMMENDATIONS AND DISCUSSION: In this 73-year-old gentleman who presented with multiple complex medical issues as mentioned earlier, at this time, I recommend to continue the current medications, management and symptomatic treatment. We will optimize the bronchodilator treatment, antibiotics. IV steroids. Closely follow with Dr. Tucker. Otherwise, resume the home medications. Guarded prognosis because of multiple complex medical issues. A copy of this dictation being forwarded to Dr. Wall who is the primary physician. MMNORISL / DARLINGN: [id number] / MTDD
[2018-09-26] MEDS ORDERED: TAMSULOSIN 0.4 MG CAP.ER.24H PO SCH (21:00)
[2018-09-26 21:30] LABS: Glucose,Whole Blood 146 mg/dL (75-99)
[2018-09-27 00:58] VITALS: TEMP 97.5
[2018-09-27] MEDS: methylPREDNISolone SOD SUCCI 40 MG/ML 1 ML VIAL IV SCH ×2 (02:00→08:48)
[2018-09-27] MEDS: IPRATROPIUM-ALBUTEROL 3 ML NEB INHALATION SCH ×3 (03:49→11:21)
[2018-09-27] MEDS: SYMBICORT 160-4.5 MCG INHALER INHALATION SCH (07:04)
[2018-09-27 07:13] LABS: Glucose,Whole Blood 114 mg/dL (75-99)
[2018-09-27] MEDS ORDERED: PANTOPRAZOLE 40 MG TABLET PO SCH (07:30)
[2018-09-27 08:33] LABS: Basophils % (A) 0 %; Eosinophils % (A) 0 %; HCT 40.9 % (39.0-53.0); HGB 13.7 gm/dL (13.0-17.5); Lymphocytes % (A) 7 %; MCH 32.1 pg (25.0-35.0); MCHC 33.5 g/dL (31.0-37.0); MCV 95.9 fL (80.0-100.0); Mean Platelet Volume 7.5; Monocytes # (A) 0.7 k/uL (0-1.0); Monocytes % (A) 6 %; Neutrophils # (A) 11.3 k/uL (1.3-7.7); Neutrophils % (A) 86 %; Platelet Count 236 k/uL (150-450); RBC 4.27 m/uL (4.30-5.90); RDW 14.6 % (11.5-15.5); WBC 13.2 k/uL (3.8-10.6)
[2018-09-27 08:40] LABS: African American GFR (CKD) >90 (>60 ml/min/1.73 sqM); Anion Gap 12 mmol/L; Blood Urea Nitrogen 19 mg/dL (9-20); Calcium 9.3 mg/dL (8.4-10.2); Carbon Dioxide 24 mmol/L (22-30); Chloride 100 mmol/L (98-107); Glucose 121 mg/dL (74-99); Sodium 136 mmol/L (137-145)
[2018-09-27] MEDS: INSULIN ASPART (NovoLOG) 100 UNIT/ML VIAL SQ SCH (08:46)
[2018-09-27 08:48] VITALS: BP 110/64; RESP 18
[2018-09-27] MEDS: METOPROLOL TARTRATE 50 MG TAB PO SCH (08:48)
[2018-09-27] MEDS: NICOTINE 14MG/24HR PATCH TRANSDERM SCH (08:49)
[2018-09-27] MEDS: APIXABAN 5 MG TAB PO SCH (08:49)
[2018-09-27] MEDS: FAMOTIDINE 20 MG TAB PO SCH (08:49)
[2018-09-27 11:35] VITALS: PULSE 100
[2018-09-27 12:16] LABS: Glucose,Whole Blood 114 mg/dL (75-99)
--- NOTE | 2018-09-27 12:53 | P.PN ---
Subjective Progress Note Date: 09/27/18 Principal diagnosis: Acute exacerbation of COPD This is a very pleasant 73-year-old male patient who follows with Dr. Wall as his primary care physician and has a history of chronic and ongoing tobacco dependence of 60 years, chronic obstructive pulmonary disease with FEV1 value 53% of predicted, atrial fibrillation, benign prostatic hyperplasia. He also has a history of pulmonary nodules and recent PET scan showed no SUV uptake in the lungs he was noted to have a left parotid gland with positive SUV and was planning for an FNA with interventional radiology next week. He presented here to the emergency room yesterday with complaints of increasing shortness of breat h, cough and congestion. Chest x-ray shows persistent bilateral interstitial prominence mostly nonspecific with some chronic interstitial fibrotic changes. He was admitted for COPD exacerbation. He is seen today in follow-up on the regular medical floor. He is awake and alert in no acute distress. He is maintaining O2 saturations in the 90s on 3 L/m per nasal cannula. He's been afebrile. Hemodynamically stable. White count 10.7. Hemoglobin 14.2. Creatinine 0.87. On 09/27/2018 patient seen in follow-up on medical surgical floor. He is improved significantly since admission, breathing is stable, he is on room air, his pulse ox is 93-94%, afebrile, hemodynamically stable, breathing has improved, significant cough or congestion, no acute events overnight. And patient is going home today. Objective - Vital Signs Vital signs: Vital Signs Temp 97.5 F L 09/27/18 07:00 Pulse 100 09/27/18 11:34 Resp 18 09/27/18 07:00 BP 110/64 09/27/18 07:00 Pulse Ox 93 L 09/27/18 07:00 Intake & Output 09/26/18 09/27/18 09/27/18 18:59 06:59 18:59 Intake Total 20 Balance 20 Intake: Oral 20 Other: # Voids 1 - Exam GENERAL EXAM: Alert, pleasant, 73-year-old white male, on room air, with a pulse ox of 93% comfortable in no apparent distress. HEAD: Normocephalic/atraumatic. EYES: Normal reaction of pupils, equal size. Conjunctiva pink, sclera white. NOSE: Clear with pink turbinates. THROAT: No erythema or exudates. NECK: No masses, no JVD, no thyroid enlargement, no adenopathy. CHEST: No chest wall deformity. Symmetrical expansion. LUNGS: Equal air entry with no crackles, wheeze, rhonchi or dullness. CVS: Regular rate and rhythm, normal S1 and S2, no gallops, no murmurs, no rubs ABDOMEN: Soft, nontender. No hepatosplenomegaly, normal bowel sounds, no guarding or rigidity. EXTREMITIES: No clubbing, no edema, no cyanosis, 2+ pulses and upper and lower extremities. MUSCULOSKELETAL: Muscle strength and tone normal. SPINE: No scoliosis or deformity SKIN: No rashes CENTRAL NERVOUS SYSTEM: Alert and oriented -3. No focal deficits, tone is normal in all 4 extremities. PSYCHIATRIC: Alert and oriented -3. Appropriate affect. Intact judgment and insight. - Labs CBC & Chem 7: 09/27/18 07:49 09/27/18 07:49 Labs: Abnormal Lab Results - Last 24 Hours (Table) 09/26/18 09/26/18 09/27/18 Range/Units 17:26 21:18 06:51 WBC (3.8-10.6) k/uL RBC (4.30-5.90) m/uL Neutrophils # (1.3-7.7) k/uL Sodium (137-145) mmol/L Glucose (74-99) mg/dL POC Glucose (mg/dL) 193 H 146 H 114 H (75-99) mg/dL 09/27/18 09/27/18 09/27/18 Range/Units 07:49 07:49 12:01 WBC 13.2 H (3.8-10.6) k/uL RBC 4.27 L (4.30-5.90) m/uL Neutrophils # 11.3 H (1.3-7.7) k/uL Sodium 136 L (137-145) mmol/L Glucose 121 H (74-99) mg/dL POC Glucose (mg/dL) 114 H (75-99) mg/dL Assessment and Plan Plan: Assessment: #1 Acute exacerbation of chronic obstructive pulmonary disease in a patient with FEV1 value 53% of predicted. #2 Chronic and ongoing tobacco dependence of greater than 60 years. #3 Recent admissions for COPD. Chronic fibrotic changes on chest x-ray. #4 Pulmonary nodules with negative PET scan. #5 Left parotid gland highly given PET scan, pending FNA. #6 Hypertension. #7 History of paroxysmal atrial fibrillation anticoagulated with Eliquis. #8 Benign prostatic hyperplasia, on Flomax. Plan: Patient is stable for discharge from pulmonary perspective, breathing stable, vital signs are stable, no acute events overnight, responded well to inpatient treatments, follow-up in the office in 7-10 days I performed a history & physical examination of the patient and discussed their management with my nurse practitioner, Coleen Worley. I reviewed the nurse practitioner's note and agree with the documented findings and plan of care. Lung sounds are positive for diminished breath sounds. The findings and the impression was discussed with the patient. I attest to the documentation by the nurse practitioner. Time with Patient: Less than 30
--- NOTE | 2018-09-27 22:48 | DS ---
DISCHARGE SUMMARY DATE OF SERVICE: 09/27/2018. FINAL DIAGNOSES: 1. Chronic obstructive pulmonary disease acute exacerbation with acute purulent tracheobronchitis. 2. Continued ongoing nicotine dependence. 3. History of paroxysmal atrial fibrillation. 4. History of benign prostatic hypertrophy. 5. History of chronic fibrotic changes on the chest x-ray. 6. Increased WBC. 7. Pulmonary nodules with negative PET scan. DISCHARGE DISPOSITION: The patient will be discharged in stable condition with guarded prognosis. HISTORY OF PRESENT ILLNESS: This 73-year-old gentleman with a past medical history of multiple medical problems being followed by Dr. Frankie Wall in the outpatient setting was admitted with shortness of breath, COPD, acute exacerbation. Patient treated with bronchodilators, steroids, antibiotics. Patient improved significantly. The patient had history of continued smoking. Dr. Tucker saw the patient and recommended outpatient followup. On exam, vitals signs are stable. Cardiovascular: S1, S2 muffled. Abdomen soft. Nervous system: No focal deficits. Respiratory: A few scattered rhonchi. DISCHARGE ADVICE AND MEDICATIONS: 1. Diet is cardiac diet. 2. Activity limited until followup. 3. Follow up with Dr. Wall in 2-3 days. 4. Follow up with pulmonary as recommended. DISCHARGE MEDICATIONS: 1. DuoNeb q.i.d. and p.r.n. 2. Eliquis 5 mg p.o. b.i.d. 3. Famotidine 20 mg p.o. b.i.d. 4. Flomax 0.8 q.h.s. 5. Lopressor 50 mg p.o. b.i.d. 6. Symbicort 160/4.5 two puffs b.i.d. 7. Ventolin p.r.n. 8. Ceftin 500 mg p.o. b.i.d. for 3 days. 9. Prednisone taper 40 mg daily for 3 days, 30 for 3 days, 20 for 3 days, 10 for 3 days and stop. Once again, the patient is being discharged in stable condition with guarded prognosis. MMODL / IJN: [id number] /
== END 2018-09-27 14:21 | disposition home or self-care (01) ==
LOC: EC 19:36 → 4SSUR 09-26 00:37
PROVIDERS: ADMIT Internal Medicine; ATTEND Internal Medicine
DX: J44.0 Chronic obstructive pulmonary disease with (acute) lower respiratory infection (principal); J20.9 Acute bronchitis, unspecified; J44.1 Chronic obstructive pulmonary disease with (acute) exacerbation; F17.200 Nicotine dependence, unspecified, uncomplicated; I48.0 Paroxysmal atrial fibrillation; N40.0 Benign prostatic hyperplasia without lower urinary tract symptoms; R91.8 Other nonspecific abnormal finding of lung field; I10 Essential (primary) hypertension; Z87.01 Personal history of pneumonia (recurrent); Z79.01 Long term (current) use of anticoagulants; Z79.899 Other long term (current) drug therapy; Z79.51 Long term (current) use of inhaled steroids; Z91.041 Radiographic dye allergy status; Z91.040 Latex allergy status; Z81.8 Family history of other mental and behavioral disorders; Z82.49 Family history of ischemic heart disease and other diseases of the circulatory system
CPT/HCPCS: 96376 ×2; 96366; 96367; 96365; 96375; 99285; 36415; 94640 ×5; 93005; 83880; 80053; 80048; 83735; 85025 ×2; 85610; 85730; 71046; 93971; G0378 ×2; J2920 ×2; J2930; J0696; J3475

== ENCOUNTER 2018-10-18 08:29 | Observation (INO) | payer MEDICARE, OTHER ==
[2018-10-18] MEDS ORDERED: IPRATROPIUM-ALBUTEROL 3 ML NEB INHALATION STA ×2 (08:44→09:53)
[2018-10-18] MEDS ORDERED: methylPREDNISolone SOD SUCCI 125 MG/2 ML VIAL IV STA (08:44)
--- NOTE | 2018-10-18 08:50 | ED ---
General Adult HPI - General Chief complaint: Shortness of Breath Stated complaint: Sob/cough Time Seen by Provider: 10/18/18 08:38 Source: patient, RN notes reviewed, old records reviewed Mode of arrival: wheelchair Limitations: no limitations - History of Present Illness Initial comments: 73-year-old male patient passed history of COPD, paroxysmal atrial fibrillation, anticoagulated on eliquis as ED with chief complaint of COPD exacerbation for 3 days. Patient reports wheezing cough. Denies any fevers or chest pain. Denies any other systemic symptoms of infection. Denies any other complaints at this time. Systemic: Pt denies fatigue, fever/chills, rash. Pt denies weakness, night sweats, weight loss. Neuro: Pt denies headache, visual disturbances, syncope or pre-syncope. HEENT: Pt denies ocular discharge or irritation, otalgia, rhinorrhea, p haryngitis or notable lymphadenopathy. Cardiopulmonary: Pt denies chest pain, SOB, heart palpitations, dyspnea on exertion. Abdominal/GI: Pt denies abdominal pain, n/v/d. : Pt denies dysuria, burning w/ urination, frequency/urgency. Denies new onset urinary or bowel incontinence. MSK: Pt denies myalgia, loss of strength or function in extremities. Neuro: Pt denies new onset weakness, paresthesias. - Related Data Home Medications Medication Instructions Recorded Confirmed Tamsulosin HCl [Flomax] 0.8 mg PO HS 03/24/18 10/18/18 Albuterol Inhaler [Ventolin Hfa 1 - 2 puff INHALATION RT-QID PRN 04/20/18 10/18/18 Inhaler] Budesonide-Formot 160-4.5 Mcg 2 puff INHALATION RT-BID 04/20/18 10/18/18 [Symbicort 160-4.5 Mcg Inhaler] Apixaban [Eliquis] 5 mg PO BID 09/14/18 10/18/18 Metoprolol Tartrate [Lopressor] 50 mg PO BID 09/14/18 10/18/18 Famotidine 20 mg PO BID 09/24/18 10/18/18 Ipratropium-Albuterol Nebulize 3 ml INHALATION RT-QID 09/25/18 10/18/18 [Duoneb 0.5 mg-3 mg/3 ml Soln] Allergies Allergy/AdvReac Type Severity Reaction Status Date / Time Iodinated Contrast- Oral and Allergy Rash/Hives Verified 10/18/18 08:50 IV Dye latex Allergy Rash/Hives Verified 10/18/18 08:50 Review of Systems ROS Statement: Those systems with pertinent positive or pertinent negative responses have been documented in the HPI. ROS Other: All systems not noted in ROS Statement are negative. Past Medical History Past Medical History: Atrial Fibrillation, COPD, Prostate Disorder Additional Past Medical History / Comment(s): Paroxysmal Afib, BPH History of Any Multi-Drug Resistant Organisms: None Reported Past Surgical History: No Surgical Hx Reported Additional Past Surgical History / Comment(s): Bilateral cataract removals-lens implants, colonoscpoy Past Anesthesia/Blood Transfusion Reactions: No Reported Reaction Additional Past Anesthesia/Blood Transfusion Reaction / Comment(s): has never received any blood transfusions Past Psychological History: No Psychological Hx Reported Smoking Status: Current every day smoker Past Alcohol Use History: None Reported Past Drug Use History: None Reported - Past Family History Mother Family Medical History: AFIB, Dementia Father Family Medical History: Myocardial Infarction ([place]) Additional Family Medical History / Comment(s): in his 70's from [place] General Exam - General Exam Comments Initial Comments: Constitutional: NAD, AOX3, Pt has pleasant affect. HEENT: NC/AT, trachea midline, neck supple, no lymphadenopathy. Posterior pharynx non erythematous, without exudates. External ears appear normal, without discharge. Mucous membranes moist. Eyes PERRLA, EOM intact. There is no scleral icterus. No pallor noted. Cardiopulmonary: RRR, no murmurs, rubs or gallops, no JVD noted. Wheezing noted in anterior and posterior meyers, moderately improved after breathing tx. No peripheral edema. Abdominal exam: Abdomen soft and non-distended. Abdomen non-tender to palpation in all 4 quadrants. Bowel sounds active in LLQ. No hepatosplenomegaly. No ecchymosis Neuro: CN II-XII grossly intact. No nuchal rigidity. No raccon eyes, no smith sign, no hemotympanum. No cervical spinal tenderness. MSK: No posterior calf tenderness bilaterally, homans sign negative bilaterally. Posterior tibialis and radial pulse +2 bilaterally. Sensation intact in upper and lower extremities. Full active ROM in upper and lower extremities, 5/5 stregnth. Limitations: no limitations Course Vital Signs 10/18/18 10/18/18 10/18/18 08:33 09:05 09:20 Temperature 98.5 F Pulse Rate 75 84 88 Respiratory 18 Rate Blood Pressure 116/72 O2 Sat by Pulse 94 L Oximetry Medical Decision Making - Medical Decision Making 73-year-old male patient passed history of COPD, paroxysmal atrial fibrillation, anticoagulated on eliquis as ED with chief complaint of COPD exacerbation for 3 days. Patient reports wheezing cough. Denies any fevers or chest pain. Denies any other systemic symptoms of infection. Denies any other complaints at this time. Patient vital signs stable, afebrile. Physical exam displayed diffuse wheezing in anterior and posterior meyers, moderately improved after breathing treatment. Laboratory investigations non-impressive, troponin negative, EKG nonischemic. Chest x-ray displayed COPD and probable mild interstitial fibrosis, mild cardiomegaly. She'll be admitted for COPD exacerbation. Case discussed with Dr. Toussaint. - Lab Data Result diagrams: 10/18/18 09:04 10/18/18 09:04 Lab Results 10/18/18 10/18/18 10/18/18 Range/Units 09:04 09:04 09:04 WBC 8.3 (3.8-10.6) k/uL RBC 4.43 (4.30-5.90) m/uL Hgb 14.6 (13.0-17.5) gm/dL Hct 42.3 (39.0-53.0) % MCV 95.5 (80.0-100.0) fL MCH 32.8 (25.0-35.0) pg MCHC 34.4 (31.0-37.0) g/dL RDW 13.4 (11.5-15.5) % Plt Count 200 (150-450) k/uL Neutrophils % 58 % Lymphocytes % 20 % Monocytes % 8 % Eosinophils % 11 % Basophils % 1 % Neutrophils # 4.8 (1.3-7.7) k/uL Lymphocytes # 1.6 (1.0-4.8) k/uL Monocytes # 0.6 (0-1.0) k/uL Eosinophils # 0.9 H (0-0.7) k/uL Basophils # 0.1 (0-0.2) k/uL PT 10.6 (9.0-12.0) sec INR 1.0 (<1.2) APTT 26.9 (22.0-30.0) sec Sodium 136 L (137-145) mmol/L Potassium 4.7 (3.5-5.1) mmol/L Chloride 103 (98-107) mmol/L Carbon Dioxide 24 (22-30) mmol/L Anion Gap 9 mmol/L BUN 22 H (9-20) mg/dL Creatinine 0.93 (0.66-1.25) mg/dL Est GFR (CKD-EPI)AfAm >90 (>60 ml/min/1.73 sqM) Est GFR (CKD-EPI)NonAf 81 (>60 ml/min/1.73 sqM) Glucose 100 H (74-99) mg/dL Calcium 9.3 (8.4-10.2) mg/dL Total Bilirubin 1.1 (0.2-1.3) mg/dL AST 20 (17-59) U/L ALT 22 (21-72) U/L Alkaline Phosphatase 60 (38-126) U/L Troponin I (0.000-0.034) ng/mL Total Protein 6.9 (6.3-8.2) g/dL Albumin 4.1 (3.5-5.0) g/dL 10/18/18 Range/Units 09:04 WBC (3.8-10.6) k/uL RBC (4.30-5.90) m/uL Hgb (13.0-17.5) gm/dL Hct (39.0-53.0) % MCV (80.0-100.0) fL MCH (25.0-35.0) pg MCHC (31.0-37.0) g/dL RDW (11.5-15.5) % Plt Count (150-450) k/uL Neutrophils % % Lymphocytes % % Monocytes % % Eosinophils % % Basophils % % Neutrophils # (1.3-7.7) k/uL Lymphocytes # (1.0-4.8) k/uL Monocytes # (0-1.0) k/uL Eosinophils # (0-0.7) k/uL Basophils # (0-0.2) k/uL PT (9.0-12.0) sec INR (<1.2) APTT (22.0-30.0) sec Sodium (137-145) mmol/L Potassium (3.5-5.1) mmol/L Chloride (98-107) mmol/L Carbon Dioxide (22-30) mmol/L Anion Gap mmol/L BUN (9-20) mg/dL Creatinine (0.66-1.25) mg/dL Est GFR (CKD-EPI)AfAm (>60 ml/min/1.73 sqM) Est GFR (CKD-EPI)NonAf (>60 ml/min/1.73 sqM) Glucose (74-99) mg/dL Calcium (8.4-10.2) mg/dL Total Bilirubin (0.2-1.3) mg/dL AST (17-59) U/L ALT (21-72) U/L Alkaline Phosphatase (38-126) U/L Troponin I <0.012 (0.000-0.034) ng/mL Total Protein (6.3-8.2) g/dL Albumin (3.5-5.0) g/dL - EKG Data -: EKG Interpreted by Me (and Dr. Toussaint. ) EKG Comments: Ventricular rate 87, painful 166, QRS 88, QT/QTC 374 shows 450. Normal sinus rhythm, normal EKG, no concern for acute ischemia. Disposition Clinical Impression: COPD exacerbation Disposition: ADMITTED IP TO THIS HOSP Condition: Serious Is patient prescribed a controlled substance at d/c from ED?: No Referrals: Frankie Wall DO [Primary Care Provider] - 1-2 days
[2018-10-18 09:16] LABS: Basophils # (A) 0.1 k/uL (0-0.2); Basophils % (A) 1 %; Eosinophils # (A) 0.9 k/uL (0-0.7); Eosinophils % (A) 11 %; HCT 42.3 % (39.0-53.0); HGB 14.6 gm/dL (13.0-17.5); Lymphocytes # (A) 1.6 k/uL (1.0-4.8); Lymphocytes % (A) 20 %; MCH 32.8 pg (25.0-35.0); MCHC 34.4 g/dL (31.0-37.0); MCV 95.5 fL (80.0-100.0); Mean Platelet Volume 7.1; Monocytes # (A) 0.6 k/uL (0-1.0); Monocytes % (A) 8 %; Neutrophils # (A) 4.8 k/uL (1.3-7.7); Neutrophils % (A) 58 %; Platelet Count 200 k/uL (150-450); RBC 4.43 m/uL (4.30-5.90); RDW 13.4 % (11.5-15.5); WBC 8.3 k/uL (3.8-10.6)
[2018-10-18 09:22] LABS: ALT 22 U/L (21-72); AST 20 U/L (17-59); African American GFR (CKD) >90 (>60 ml/min/1.73 sqM); Albumin 4.1 g/dL (3.5-5.0); Alkaline Phosphatase 60 U/L (38-126); Anion Gap 9 mmol/L; Blood Urea Nitrogen 22 mg/dL (9-20); Calcium 9.3 mg/dL (8.4-10.2); Carbon Dioxide 24 mmol/L (22-30); Chloride 103 mmol/L (98-107); Glucose 100 mg/dL (74-99); Potassium 4.7 mmol/L (3.5-5.1); Sodium 136 mmol/L (137-145); Total Bilirubin 1.1 mg/dL (0.2-1.3); Total Protein 6.9 g/dL (6.3-8.2)
[2018-10-18 09:24] LABS: Partial Thromboplastin Time 26.9 sec (22.0-30.0); Prothrombin Time 10.6 sec (9.0-12.0)
--- NOTE | 2018-10-18 09:51 | XR ---
EXAMINATION TYPE: XR chest 2V DATE OF EXAM: 10/18/2018 HISTORY: difficulty breathing. REFERENCE: Previous study dated 09/25/1989. FINDINGS: The lungs are mildly overinflated. There are increased interstitial markings. There is no l obar pneumonia or edema. Heart size is mildly prominent. IMPRESSION: 1. 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 2. MILD CARDIOMEGALY.
[2018-10-18] MEDS: IPRATROPIUM-ALBUTEROL 3 ML NEB INHALATION SCH ×3 (11:18→19:15)
[2018-10-18] MEDS: methylPREDNISolone SOD SUCCI 125 MG/2 ML VIAL IV SCH ×3 (12:40→23:51)
--- NOTE | 2018-10-18 13:49 | P.CNPUL ---
History of Present Illness Consult date: 10/18/18 Reason for consult: dyspnea, COPD History of present illness: 73-year-old male patient with known history of COPD coming in with worsening shortness of breath over the past 3 days. He has been having severe dyspnea cough chest tightness and wheezing. No angina. No palpitation. His white cell count is not elevated at 8.3. His renal function tests is within normal with a creatinine of 0.9. His chest x-ray showing COPD with some limited scarring in the lung bases and some mild cardiomegaly and EKG showing normal sinus rhythm. Note that the patient is well-known to us. His primary care physician is Dr. Frankie shell. He is also have COPD. He is a chronic tobacco smoker 60 pack years and his baseline FEV1 is normal to 53% of predicted. He has history of atrial fibrillation, BPH and he has also known to have pulmonary nodules with recent PET scan showing no activity within the lungs. The patient has been on oxygen at 3 L per minute nasal cannula. He is less hospitalization for the same was in September 2018. The patient back then was discharged home on Symbicort and a prednisone burst taper and he was utilizing DuoNeb nebulized treatments around the clock. Review of Systems CONSTITUTIONAL: Denies any recent significant weight loss or weight gain. EYES: Denies change in vision. EARS, NOSE, MOUTH, THROAT: Denies headaches, denies sore throat. CARDIOVASCULAR: Denies chest pain, palpitations or syncopal episodes. RESPIRATORY: Positive for shortness of breath, cough, congestion or hemoptysis. GASTROINTESTINAL: Denies change in appetite, denies abdominal pain GENITOURINARY: Denies hematuria, denies infections. MUSKULOSKELETAL: Denies pain, denies swelling. INTEGUMENTARY: Denies rash, denies eczema. NEUROLOGICAL: Denies recent memory loss, no recent seizure activity. PSYCHIATRIC: Denies anxiety, denies depression. HEMATOLOGIC/LYMPHATIC: Denies anemia, denies enlarged lymph nodes. Past Medical History Past Medical History: Atrial Fibrillation, COPD, Prostate Disorder Additional Past Medical History / Comment(s): Paroxysmal Afib, BPH History of Any Multi-Drug Resistant Organisms: None Reported Past Surgical History: No Surgical Hx Reported Additional Past Surgical History / Comment(s): Bilateral cataract removals-lens implants, colonoscpoy Past Anesthesia/Blood Transfusion Reactions: No Reported Reaction Additional Past Anesthesia/Blood Transfusion Reaction / Comment(s): has never re ceived any blood transfusions Past Psychological History: No Psychological Hx Reported Additional Psychological History / Comment(s): Pt resides with his spouse and their son. They live in a downstairs apartment. They moved to this area apr 2018. from [facility]. Pt manages his own medications. He has a nebulizer. His son cooks and drives pt to [employer]. Smoking Status: Current every day smoker Past Alcohol Use History: None Reported Additional Past Alcohol Use History / Comment(s): Pt started smoking age 12(1957) got up to 5 ppd for many years then cut down to 3 ppd. (09/26) pt states that ppd varies on how the pt is feeling; currently reports 1 ppd Past Drug Use History: None Reported - Past Family History Mother Family Medical History: AFIB, Dementia Father Family Medical History: Myocardial Infarction ([place]) Additional Family Medical History / Comment(s): in his 70's [place] Medications and Allergies Home Medications Medication Instructions Recorded Confirmed Type Tamsulosin HCl [Flomax] 0.8 mg PO HS 03/24/18 10/18/18 History Albuterol Inhaler [Ventolin Hfa 1 - 2 puff INHALATION RT-QID PRN 04/20/18 10/18/18 History Inhaler] Budesonide-Formot 160-4.5 Mcg 2 puff INHALATION RT-BID 04/20/18 10/18/18 History [Symbicort 160-4.5 Mcg Inhaler] Apixaban [Eliquis] 5 mg PO BID 09/14/18 10/18/18 History Metoprolol Tartrate [Lopressor] 50 mg PO BID 09/14/18 10/18/18 History Famotidine 20 mg PO BID 09/24/18 10/18/18 History Ipratropium-Albuterol Nebulize 3 ml INHALATION RT-QID 09/25/18 10/18/18 History [Duoneb 0.5 mg-3 mg/3 ml Soln] Allergies Allergy/AdvReac Type Severity Reaction Status Date / Time Iodinated Contrast- Oral and Allergy Rash/Hives Verified 10/18/18 08:50 IV Dye latex Allergy Rash/Hives Verified 10/18/18 08:50 Physical Exam Vitals: Vital Signs Temp Pulse Pulse Resp BP BP Pulse Ox 10/18/18 11:30 80 10/18/18 11:18 80 10/18/18 11:08 97.7 F 83 16 128/78 95 10/18/18 10:17 78 10/18/18 10:06 76 10/18/18 10:00 72 20 137/78 96 10/18/18 09:30 83 20 141/83 96 10/18/18 09:20 88 10/18/18 09:05 84 10/18/18 09:00 87 19 108/76 94 L 10/18/18 08:33 98.5 F 75 18 116/72 94 L Intake and Output 10/17/18 10/18/18 10/18/18 22:59 06:59 14:59 Other: Voiding Method Toilet # Voids 1 Weight 72.575 kg GENERAL EXAM: Pleasant 73-year-old gentleman. Alert, active, comfortable in no apparent distress. HEAD: Normocephalic. EYES: Normal reaction of pupils, equal size. NOSE: Clear with pink turbinates. THROAT: No erythema or exudates. NECK: No masses, no JVD. CHEST: No chest wall deformity. LUNGS: Equal air entry with bilateral end expiratory wheeze, diminished CVS: S1 and S2 normal with no audible murmur, regular rhythm. ABDOMEN: No hepatosplenomegaly, normal bowel sounds, no guarding or rigidity. SPINE: No scoliosis or deformity SKIN: No rashes CENTRAL NERVOUS SYSTEM: No focal deficits, tone is normal in all 4 extremities. EXTREMITIES: There is no peripheral edema. No clubbing, no cyanosis. Peripheral pulses are intact. Results - Laboratory Findings CBC and BMP: 10/18/18 09:04 10/18/18 09:04 PT/INR, D-dimer PT 10.6 sec (9.0-12.0) 10/18/18 09:04 INR 1.0 (<1.2) 10/18/18 09:04 Abnormal lab findings: Abnormal Labs 10/18/18 10/18/18 09:04 09:04 Eosinophils # 0.9 H Sodium 136 L BUN 22 H Glucose 100 H - Diagnostic Findings Chest x-ray: image reviewed Assessment and Plan Plan: #1 Acute exacerbation of chronic obstructive pulmonary disease in a patient with FEV1 value 53% of predicted. #2 Chronic and ongoing tobacco dependence of greater than 60 years. #3 Recent admissions for COPD. Chronic fibrotic changes on chest x-ray. #4 Pulmonary nodules with negative PET scan. #5 Left parotid gland highly given PET scan, pending FNA. #6 Hypertension. #7 History of paroxysmal atrial fibrillation anticoagulated with Eliquis. #8 Benign prostatic hyperplasia, on Flomax. Plan Continue DuoNeb nebulized treatments around the clock. IV Solu-Medrol. Smoking cessation counseling was done. Symbicort and possibly addition of Spiriva on outpatient basis for a beta COPD control. Chest x-ray was reviewed. Blood was reviewed. We'll continue to follow
--- NOTE | 2018-10-18 15:48 | P.HPIM ---
History of Present Illness H&P Date: 10/18/18 Chief Complaint: Shortness of breath Mr. Hinkle is a 73-year-old male patient who follows with Dr. Wall as his primary care physician and has a history of chronic and ongoing tobacco dependence of 60 years, chronic obstructive pulmonary disease with FEV1 value 53% of predicted, atrial fibrillation, benign prostatic hyperplasia, pulmonary nodules presented here to the emergency room yesterday with complaints of increasing shortness of breath, cough and congestion. Patient has multiple admissions to the hospital with the same complaints. He still continues to smoke one to one and half packs of cigarettes every day. In the emergency department patient was found to be wheezing, he was given breathing treatments and started on IV steroids and admitted for further management. Patient had a chest x-ray in the ER showing COPD with limited scarring at the lung bases and mild cardiomegaly. Patient's vital signs and labs have been reviewed. Currently the patient is sitting comfortably on the bed, he states that his wheezing has resolved and his difficulty in breathing is much better. Review of Systems REVIEW OF SYSTEMS: PSYCH: No history of anxiety or depression NEURO:No c/o weakness of the extremties, No facial droop, No speech abnormalities. VASCULAR: Peripheral nervous system within the normal limits no edema HEMATOLOGIC: No history of easy bleeding and bruising . No recent infections . RESPIRATORY: As per HPI IMMUNE: No infections INTEGUMENT: no rashes OPHTHALMOLOGIC: No blurry vision and no eye discharge : No dysuria or hematuria CARDIAC: No chest pain , shortness of breath , paroxysmal nocturnal dyspnea MUSCULOSKELETAL : No Aches or pains in the joints or muscles. GI: No abdominal pain, Nausea or vomiting. No constipation or diarrhea. All 13 review of systems are negative except for the ones mentioned above Past Medical History Past Medical History: Atrial Fibrillation, COPD, Prostate Disorder Additional Past Medical History / Comment(s): Paroxysmal Afib, BPH History of Any Multi-Drug Resistant Organisms: None Reported Past Surgical History: No Surgical Hx Reported Additional Past Surgical History / Comment(s): Bilateral cataract removals-lens implants, colonoscpoy Past Anesthesia/Blood Transfusion Reactions: No Reported Reaction Additional Past Anesthesia/Blood Transfusion Reaction / Comment(s): has never received any blood transfusions Past Psychological History: No Psychological Hx Reported Additional Psychological History / Comment(s): Pt resides with his spouse and their son. They live in a downstairs apartment. They moved to this area apr 23. from [facility]. Pt manages his own medications. He has a nebulizer. His son cooks and drives pt to [employer]. Smoking Status: Current every day smoker Past Alcohol Use History: None Reported Additional Past Alcohol Use History / Comment(s): Pt started smoking age 12(1957) got up to 5 ppd for many years then cut down to 3 ppd. (09/26) pt states that ppd varies on how the pt is feeling; currently reports 1 ppd Past Drug Use History: None Reported - Past Family History Mother Family Medical History: AFIB, Dementia Father Family Medical History: Myocardial Infarction ([place]) Additional Family Medical History / Comment(s): in his 70's [place] Medications and Allergies Home Medications Medication Instructions Recorded Confirmed Type Tamsulosin HCl [Flomax] 0.8 mg PO HS 03/24/18 10/18/18 History Albuterol Inhaler [Ventolin Hfa 1 - 2 puff INHALATION RT-QID PRN 04/20/18 10/18/18 History Inhaler] Budesonide-Formot 160-4.5 Mcg 2 puff INHALATION RT-BID 04/20/18 10/18/18 History [Symbicort 160-4.5 Mcg Inhaler] Apixaban [Eliquis] 5 mg PO BID 09/14/18 10/18/18 History Metoprolol Tartrate [Lopressor] 50 mg PO BID 09/14/18 10/18/18 History Famotidine 20 mg PO BID 09/24/18 10/18/18 History Ipratropium-Albuterol Nebulize 3 ml INHALATION RT-QID 09/25/18 10/18/18 History [Duoneb 0.5 mg-3 mg/3 ml Soln] Allergies Allergy/AdvReac Type Severity Reaction Status Date / Time Iodinated Contrast- Oral and Allergy Rash/Hives Verified 10/18/18 08:50 IV Dye latex Allergy Rash/Hives Verified 10/18/18 08:50 Physical Exam Vitals: Vital Signs Temp Pulse Pulse Resp BP BP Pulse Ox 10/18/18 15:28 78 96 10/18/18 15:00 97.4 F L 94 16 122/73 94 L 08/17/19 11:30 80 10/18/18 11:18 80 10/18/18 11:08 97.7 F 83 16 128/78 95 10/18/18 10:17 78 10/18/18 10:06 76 10/18/18 10:00 72 20 137/78 96 10/18/18 09:30 83 20 141/83 96 10/18/18 09:20 88 10/18/18 09:05 84 10/18/18 09:00 87 19 108/76 94 L 10/18/18 08:33 98.5 F 75 18 116/72 94 L Intake and Output 10/18/18 10/18/18 10/18/18 06:59 14:59 22:59 Intake Total 320 Balance 320 Intake: Oral 320 Other: Voiding Method Toilet Toilet # Voids 1 Weight 72.575 kg GEN. APPEARANCE: alert, in no apparent distress HEENT: Eyes no pallor no icterus. Mucous membranes are moist. RESPIRATORY EXAM: Decreased breath sounds in all lung emyers. No crackles. Mild end expiratory wheeze CARDIOVASCULAR EXAM: regular rate, normal rhythm, normal heart sounds. Absent: systolic murmur, diastolic murmur, rubs, gallop, clicks GI/ABDOMINAL EXAM: soft, normal bowel sounds. Absent: distended, tenderness, guarding, rebound, rigid EXTREMITIES EXAM: normal inspection, full ROM, normal capillary refill. Absent: tenderness, pedal edema, joint swelling, calf tenderness NEUROLOGICAL EXAM: alert, oriented X3, focal neurological deficits on gross exam PSYCHIATRIC EXAM: normal affect, normal mood SKIN EXAM: warm, dry, intact, normal color. Absent: rash Results CBC & Chem 7: 10/18/18 09:04 10/18/18 09:04 Labs: Abnormal Lab Results - Last 24 Hours (Table) 10/18/18 10/18/18 Range/Units 09:04 09:04 Eosinophils # 0.9 H (0-0.7) k/uL Sodium 136 L (137-145) mmol/L BUN 22 H (9-20) mg/dL Glucose 100 H (74-99) mg/dL Thrombosis Risk Factor Assmnt - Choose All That Apply Each Risk Factor Represents 2 Points: Age 61-74 years Thrombosis Risk Factor Assessment Total Risk Factor Score: 2 Thrombosis Risk Factor Assessment Level: Low Risk Assessment and Plan Assessment: ASSESSMENT Acute exacerbation of COPD History of paroxysmal atrial fibrillation Hypertension Ongoing chronic nicotine dependence greater than 60 pack years Pulmonary nodules with negative PET scan Left parotid gland- increased uptake on PET scan- pending FNA-being followed as outpatient BPH PLAN: Patient to be continued on IV Solu-Medrol and breathing treatments. Patient has been started on his home medications. Consult on smoking cessation. Pepcid for GI prophylaxis.On Eliquis for anticoagulation. Further recommendations depending on the progress of the patient.
[2018-10-18] MEDS: METOPROLOL TARTRATE 50 MG TAB PO SCH (20:11)
[2018-10-18] MEDS: FAMOTIDINE 20 MG TAB PO SCH (20:11)
[2018-10-18] MEDS: APIXABAN 5 MG TAB PO SCH (20:11)
[2018-10-18] MEDS ORDERED: TAMSULOSIN 0.4 MG CAP.ER.24H PO SCH (21:00)
[2018-10-19 00:22] VITALS: RESP 18
[2018-10-19] MEDS: methylPREDNISolone SOD SUCCI 125 MG/2 ML VIAL IV SCH ×2 (05:51→11:22)
[2018-10-19] MEDS: METOPROLOL TARTRATE 50 MG TAB PO SCH (06:56)
[2018-10-19] MEDS: FAMOTIDINE 20 MG TAB PO SCH (06:56)
[2018-10-19] MEDS: APIXABAN 5 MG TAB PO SCH (06:56)
[2018-10-19] MEDS: IPRATROPIUM-ALBUTEROL 3 ML NEB INHALATION SCH ×2 (07:15→10:50)
[2018-10-19 14:26] VITALS: BP 118/60; PULSE 96; TEMP 97.4
--- NOTE | 2018-10-19 14:27 | P.DS ---
Providers Date of admission: 10/18/18 10:28 Expected date of discharge: 10/19/18 Attending physician: Karin Weaver Consults: 10/18/18 09:57 Consult Physician Stat Consulting Provider: Martir Tucker Consult Reason/Comments: COPD exacerbation Do you want consulting provider notified?: Yes [facility] Course: Mr. Hinkle is a 73-year-old male patient who follows with Dr. Wall as his primary care physician and has a history of chronic and ongoing tobacco dependence of 60 years, chronic obstructive pulmonary disease with FEV1 value 53% of predicted, atrial fibrillation, benign prostatic hyperplasia, pulmonary nodules presented here to the emergency room yesterday with complaints of increasing shortness of breath, cough and congestion. Patient has multiple admissions to the hospital with the same complaints. He still continues to smoke one to one and half packs of cigarettes every day. In the emergency department patient was found to be wheezing, he was given breathing treatments and started on IV steroids and admitted for further management. Patient had a chest x-ray in the ER showing COPD with limited scarring at the lung bases and mild cardiomegaly. Patient's vital signs and labs have been reviewed. On 10/19/2018 - patient's breathing is much better. He has been walking in the hallways and chatting with the nurses and staff. He states that he is ready to go home. Pulmonary Dr. Tucker has cleared him for discharge yesterday. He is being discharged home on a tapering dose of steroids. He is advised to continue breathing treatments. The new medication that is added is Spiriva. GEN. APPEARANCE: alert, in no apparent distress HEENT: Eyes no pallor no icterus. Mucous membranes are moist. RESPIRATORY EXAM: Decreased breath sounds in all lung meyers. Still wheezing bilaterally. he states that at this is his baseline. CARDIOVASCULAR EXAM: S1-S2 heard. GI/ABDOMINAL EXAM: soft, normal bowel sounds. EXTREMITIES EXAM: No pedal edema DISCHARGE DIAGNOSIS Acute exacerbation of COPD History of paroxysmal atrial fibrillation Hypertension Ongoing chronic nicotine dependence greater than 60 pack years Pulmonary nodules with negative PET scan Left parotid gland- increased uptake on PET scan- pending FNA-being followed as outpatient BPH PLAN: Patient is counseled on smoking cessation. He is being discharged on tapering dose of prednisone. Spiriva has been added. Continue with the rest of his medication regimen. Patient is advised to follow-up with his PCP in 2-3 days. More than 35 minutes spent towards the discharge of the patient. Patient Condition at Discharge: Fair Plan - Discharge Summary New Discharge Prescriptions: New predniSONE See Taper PO DIRECTED #40 tab Tiotropium [place] [Spiriva] 1 cap INHALATION DAILY #30 device Continue Tamsulosin HCl [Flomax] 0.8 mg PO HS Budesonide-Formot 160-4.5 Mcg [Symbicort 160-4.5 Mcg Inhaler] 2 puff INHALATION RT-BID Albuterol Inhaler [Ventolin Hfa Inhaler] 1 - 2 puff INHALATION RT-QID PRN PRN Reason: Shortness Of Breath Or Wheezing Metoprolol Tartrate [Lopressor] 50 mg PO BID Apixaban [Eliquis] 5 mg PO BID Famotidine 20 mg PO BID Ipratropium-Albuterol Nebulize [Duoneb 0.5 mg-3 mg/3 ml Soln] 3 ml INHALATION RT-QID Discharge Medication List Tamsulosin HCl [Flomax] 0.8 mg PO HS 03/24/18 [History] Albuterol Inhaler [Ventolin Hfa Inhaler] 1 - 2 puff INHALATION RT-QID PRN [History] Budesonide-Formot 160-4.5 Mcg [Symbicort 160-4.5 Mcg Inhaler] 2 puff INHALATION RT-BID 04/20/18 [History] Apixaban [Eliquis] 5 mg PO BID 09/14/18 [History] Metoprolol Tartrate [Lopressor] 50 mg PO BID 09/14/18 [History] Famotidine 20 mg PO BID 09/24/18 [History] Ipratropium-Albuterol Nebulize [Duoneb 0.5 mg-3 mg/3 ml Soln] 3 ml INHALATION RT-QID 09/25/18 [History] Tiotropium [place] [Spiriva] 1 cap INHALATION DAILY #30 device 10/19/18 [Rx] predniSONE See Taper PO DIRECTED #40 tab 10/19/18 [Rx] Follow up Appointment(s)/Referral(s): Frankie Wall DO [Primary Care Provider] - 1-2 days Discharge Disposition: HOME SELF-CARE
== END 2018-10-19 14:34 | disposition home or self-care (01) ==
LOC: EC 08:29 → 4MS4W 10:28
PROVIDERS: ADMIT Internal Medicine; ATTEND Internal Medicine
DX: J44.1 Chronic obstructive pulmonary disease with (acute) exacerbation (principal); I48.0 Paroxysmal atrial fibrillation; I11.9 Hypertensive heart disease without heart failure; R91.8 Other nonspecific abnormal finding of lung field; N40.0 Benign prostatic hyperplasia without lower urinary tract symptoms; F17.210 Nicotine dependence, cigarettes, uncomplicated; Z79.51 Long term (current) use of inhaled steroids; Z79.01 Long term (current) use of anticoagulants; Z79.899 Other long term (current) drug therapy; Z91.041 Radiographic dye allergy status; Z91.040 Latex allergy status; Z98.42 Cataract extraction status, left eye; Z98.41 Cataract extraction status, right eye; Z96.1 Presence of intraocular lens; Z82.49 Family history of ischemic heart disease and other diseases of the circulatory system; Z81.8 Family history of other mental and behavioral disorders
CPT/HCPCS: 96376 ×2; 96374; 99285; 36415; 94640 ×4; 93005; 80053; 84484; 85025; 85610; 85730; 71046; G0378 ×2; J2930 ×2

== ENCOUNTER 2018-11-15 12:06 | Emergency (ER) | payer MEDICARE ==
[2018-11-15 12:14] VITALS: TEMP 98.2
[2018-11-15] MEDS ORDERED: DEXAMETHASONE 4 MG TAB PO STA (12:36)
[2018-11-15] MEDS ORDERED: IPRATROPIUM 0.5 MG/2.5 ML NEBU INHALATION STA (12:36)
--- NOTE | 2018-11-15 12:41 | ED ---
General Adult HPI - General Chief complaint: Shortness of Breath Stated complaint: KEERTHI Time Seen by Provider: 11/15/18 12:19 Source: patient Mode of arrival: ambulatory Limitations: no limitations - History of Present Illness Initial comments: Dictation was produced using [employer] dictation software. please excuse any grammatical, word or spelling errors. Chief Complaint: 73-year-old male past medical history of COPD, atrial fibrillation resistant dyspnea since yesterday. History of Present Illness: 73-year-old male with past medical history of COPD and atrial fibrillation presents with dyspnea. Patient states since yesterday he's been having difficulty breathing. Patient has history of COPD he does see a lung doctor. Doesn't know the name of his lung doctor. Denies any overt sick contacts. Patient has not been exposed to any dust or pollen recently. Patient is not sure why he is having dyspnea. Patient has been seen in emergency department for COPD exacerbations. Time in the past. Patient has no pain complex at this time. The ROS documented in this emergency department record has been reviewed and confirmed by me. Those systems with pertinent positive or negative responses have been documented in the HPI. All other systems are other negative and/or noncontributory. PHYSICAL EXAM: General Impression: Alert and oriented x3, not in acute distress HEENT: Normocephalic atraumatic, extra-ocular movements intact, pupils equal and reactive to light bilaterally, mucous membranes moist. Cardiovascular: Heart regular rate and rhythm, S1&S2 audible, no murmurs, rubs or gallops Chest: Bilateral lung wheezing. Abdomen: Bowel sounds present, abdomen soft, non-tender, non-distended, no organomegaly Musculoskeletal: Pulses present and equal in all extremities, no peripheral edema Motor: no focal deficits noted Neurological: CN II-XII grossly intact, no focal motor or sensory deficits noted Skin: Intact with no visualized rashes Psych: Normal affect and mood ED course: 73-year-old male with clinical presentation consistent with COPD exacerbation. As upon arrival are within acceptable limits. Patient's wheezing on auscultation of the lungs. Patient does not show any signs of significant respiratory distress at bedside. Laboratory evaluation obtained. CBC, metabolic panel is unremarkable. Prematurity peptide is 59. Chest x-ray was obtained showing mild cardiomegaly. Given breathing treatment and steroids. His symptoms are improved. He feels well to go home. He has all the medications at home to take. Does have established care with pulmonology. 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 Return parameters discussed. Patient told to come back to the emergency Department with any worsening shortness of breath, fevers or chest pain. Patient understandable agreeable to disposition. He is asked if he needs any refill on his albuterol medications, but doesn't need any. He is told to take [id number] albuterol treatments every 4-6 hours for the next 48 hours. Patient is understandable and agreeable to disposition. EKG interpretation: Ventricular rate 70, normal sinus rhythm,. Interval 184, care is 84, QTC 423. No VT prolongation, no QTC prolongation, no ST or T-wave changes noted. Overall, this EKG is unremarkable - Related Data Home Medications Medication Instructions Recorded Confirmed Tamsulosin HCl [Flomax] 0.8 mg PO HS 03/24/18 10/18/18 Albuterol Inhaler [Ventolin Hfa 1 - 2 puff INHALATION RT-QID PRN 04/20/18 10/18/18 Inhaler] Budesonide-Formot 160-4.5 Mcg 2 puff INHALATION RT-BID 04/20/18 10/18/18 [Symbicort 160-4.5 Mcg Inhaler] Apixaban [Eliquis] 5 mg PO BID 09/14/18 10/18/18 Metoprolol Tartrate [Lopressor] 50 mg PO BID 09/14/18 10/18/18 Famotidine 20 mg PO BID 09/24/18 10/18/18 Ipratropium-Albuterol Nebulize 3 ml INHALATION RT-QID 09/25/18 10/18/18 [Duoneb 0.5 mg-3 mg/3 ml Soln] Previous Rx's Medication Instructions Recorded Tiotropium [place] [Spiriva] 1 cap INHALATION DAILY #30 device 10/19/18 predniSONE See Taper PO DIRECTED #40 tab 10/19/18 Allergies Allergy/AdvReac Type Severity Reaction Status Date / Time Iodinated Contrast- Oral and Allergy Rash/Hives Verified 11/15/18 12:11 IV Dye latex Allergy Rash/Hives Verified 11/15/18 12:11 Review of Systems ROS Statement: Those systems with pertinent positive or pertinent negative responses have been documented in the HPI. ROS Other: All systems not noted in ROS Statement are negative. Past Medical History Past Medical History: Atrial Fibrillation, COPD, Prostate Disorder Additional Past Medical History / Comment(s): Paroxysmal Afib, BPH History of Any Multi-Drug Resistant Organisms: None Reported Past Surgical History: No Surgical Hx Reported Additional Past Surgical History / Comment(s): Bilateral cataract removals-lens implants, colonoscpoy Past Anesthesia/Blood Transfusion Reactions: No Reported Reaction Additional Past Anesthesia/Blood Transfusion Reaction / Comment(s): has never received any blood transfusions Past Psychological History: No Psychological Hx Reported Smoking Status: Current every day smoker Past Alcohol Use History: None Reported Past Drug Use History: None Reported - Past Family History Mother Family Medical History: AFIB, Dementia Father Family Medical History: Myocardial Infarction ([place]) Additional Family Medical History / Comment(s): in his 70's [place] General Exam Limitations: no limitations Course Vital Signs 11/15/18 11/15/18 11/15/18 12:12 13:01 13:10 Temperature 98.2 F Pulse Rate 80 85 86 Respiratory 18 Rate Blood Pressure 111/74 O2 Sat by Pulse 95 Oximetry 11/15/18 13:12 Temperature Pulse Rate Respiratory 26 H Rate Blood Pressure O2 Sat by Pulse Oximetry Medical Decision Making - Lab Data Result diagrams: 11/15/18 12:45 11/15/18 12:45 Lab Results 11/15/18 11/15/18 11/15/18 Range/Units 12:45 12:45 12:45 WBC 6.6 (3.8-10.6) k/uL RBC 4.18 L (4.30-5.90) m/uL Hgb 13.2 (13.0-17.5) gm/dL Hct 39.6 (39.0-53.0) % MCV 94.7 (80.0-100.0) fL MCH 31.5 (25.0-35.0) pg MCHC 33.3 (31.0-37.0) g/dL RDW 13.1 (11.5-15.5) % Plt Count 209 (150-450) k/uL Neutrophils % 63 % Lymphocytes % 17 % Monocytes % 7 % Eosinophils % 8 % Basophils % 1 % Neutrophils # 4.2 (1.3-7.7) k/uL Lymphocytes # 1.1 (1.0-4.8) k/uL Monocytes # 0.5 (0-1.0) k/uL Eosinophils # 0.6 (0-0.7) k/uL Basophils # 0.1 (0-0.2) k/uL Sodium 134 L (137-145) mmol/L Potassium 4.5 (3.5-5.1) mmol/L Chloride 101 (98-107) mmol/L Carbon Dioxide 25 (22-30) mmol/L Anion Gap 8 mmol/L BUN 10 (9-20) mg/dL Creatinine 0.85 (0.66-1.25) mg/dL Est GFR (CKD-EPI)AfAm >90 (>60 ml/min/1.73 sqM) Est GFR (CKD-EPI)NonAf 87 (>60 ml/min/1.73 sqM) Glucose 97 (74-99) mg/dL Calcium 8.9 (8.4-10.2) mg/dL Magnesium 2.0 (1.6-2.3) mg/dL Total Bilirubin 0.8 (0.2-1.3) mg/dL AST 20 (17-59) U/L ALT 37 (21-72) U/L Alkaline Phosphatase 81 (38-126) U/L NT-Pro-B Natriuret Pep 59 pg/mL Total Protein 6.5 (6.3-8.2) g/dL Albumin 3.8 (3.5-5.0) g/dL Disposition Clinical Impression: COPD exacerbation Disposition: HOME SELF-CARE Condition: Good Instructions (If sedation given, give patient instructions): COPD (Chronic Obstructive Pulmonary Disease) (ED) Is patient prescribed a controlled substance at d/c from ED?: No Referrals: Flakita Arvizu MD [Family Provider] - 1-2 days Time of Disposition: 14:13
[2018-11-15 12:58] LABS: Basophils # (A) 0.1 k/uL (0-0.2); Basophils % (A) 1 %; Eosinophils # (A) 0.6 k/uL (0-0.7); Eosinophils % (A) 8 %; HCT 39.6 % (39.0-53.0); HGB 13.2 gm/dL (13.0-17.5); Lymphocytes # (A) 1.1 k/uL (1.0-4.8); Lymphocytes % (A) 17 %; MCH 31.5 pg (25.0-35.0); MCHC 33.3 g/dL (31.0-37.0); MCV 94.7 fL (80.0-100.0); Mean Platelet Volume 7.6; Monocytes # (A) 0.5 k/uL (0-1.0); Monocytes % (A) 7 %; Neutrophils # (A) 4.2 k/uL (1.3-7.7); Neutrophils % (A) 63 %; Platelet Count 209 k/uL (150-450); RBC 4.18 m/uL (4.30-5.90); RDW 13.1 % (11.5-15.5); WBC 6.6 k/uL (3.8-10.6)
--- NOTE | 2018-11-15 13:04 | XR ---
EXAMINATION TYPE: XR chest 2V DATE OF EXAM: 11/15/2018 HISTORY: difficulty breathing. REFERENCE: Previous study dated 10/18/2018. FINDINGS: Heart is mildly enlarged. The lungs appear clear. Pleural space are clear. IMPRESSION: MILD CARDIOMEGALY.
[2018-11-15 13:18] LABS: ALT 37 U/L (21-72); AST 20 U/L (17-59); African American GFR (CKD) >90 (>60 ml/min/1.73 sqM); Albumin 3.8 g/dL (3.5-5.0); Alkaline Phosphatase 81 U/L (38-126); Anion Gap 8 mmol/L; Blood Urea Nitrogen 10 mg/dL (9-20); Calcium 8.9 mg/dL (8.4-10.2); Carbon Dioxide 25 mmol/L (22-30); Chloride 101 mmol/L (98-107); Glucose 97 mg/dL (74-99); Potassium 4.5 mmol/L (3.5-5.1); Sodium 134 mmol/L (137-145); Total Bilirubin 0.8 mg/dL (0.2-1.3); Total Protein 6.5 g/dL (6.3-8.2)
--- NOTE | 2018-11-15 14:14 | ED ---
Medical Decision Making - Lab Data Result diagrams: 11/15/18 12:45 11/15/18 12:45 Lab Results 11/15/18 11/15/18 11/15/18 Range/Units 12:45 12:45 12:45 WBC 6.6 (3.8-10.6) k/uL RBC 4.18 L (4.30-5.90) m/uL Hgb 13.2 (13.0-17.5) gm/dL Hct 39.6 (39.0-53.0) % MCV 94.7 (80.0-100.0) fL MCH 31.5 (25.0-35.0) pg MCHC 33.3 (31.0-37.0) g/dL RDW 13.1 (11.5-15.5) % Plt Count 209 (150-450) k/uL Neutrophils % 63 % Lymphocytes % 17 % Monocytes % 7 % Eosinophils % 8 % Basophils % 1 % Neutrophils # 4.2 (1.3-7.7) k/uL Lymphocytes # 1.1 (1.0-4.8) k/uL Monocytes # 0.5 (0-1.0) k/uL Eosinophils # 0.6 (0-0.7) k/uL Basophils # 0.1 (0-0.2) k/uL Sodium 134 L (137-145) mmol/L Potassium 4.5 (3.5-5.1) mmol/L Chloride 101 (98-107) mmol/L Carbon Dioxide 25 (22-30) mmol/L Anion Gap 8 mmol/L BUN 10 (9-20) mg/dL Creatinine 0.85 (0.66-1.25) mg/dL Est GFR (CKD-EPI)AfAm >90 (>60 ml/min/1.73 sqM) Est GFR (CKD-EPI)NonAf 87 (>60 ml/min/1.73 sqM) Glucose 97 (74-99) mg/dL Calcium 8.9 (8.4-10.2) mg/dL Magnesium 2.0 (1.6-2.3) mg/dL Total Bilirubin 0.8 (0.2-1.3) mg/dL AST 20 (17-59) U/L ALT 37 (21-72) U/L Alkaline Phosphatase 81 (38-126) U/L NT-Pro-B Natriuret Pep 59 pg/mL Total Protein 6.5 (6.3-8.2) g/dL Albumin 3.8 (3.5-5.0) g/dL Disposition Clinical Impression: COPD exacerbation Disposition: HOME SELF-CARE Condition: Good Instructions (If sedation given, give patient instructions): COPD (Chronic Obstructive Pulmonary Disease) (ED) Is patient prescribed a controlled substance at d/c from ED?: No Referrals: Flakita Arvizu MD [Family Provider] - 1-2 days Time of Disposition: 14:14
[2018-11-15 15:29] VITALS: BP 127/80; PULSE 73; RESP 18
== END 2018-11-15 15:32 | disposition home or self-care (01) ==
LOC: EC 12:06
DX: J44.1 Chronic obstructive pulmonary disease with (acute) exacerbation (principal); I48.0 Paroxysmal atrial fibrillation; N40.0 Benign prostatic hyperplasia without lower urinary tract symptoms; Z79.01 Long term (current) use of anticoagulants; F17.200 Nicotine dependence, unspecified, uncomplicated; Z79.899 Other long term (current) drug therapy; Z91.040 Latex allergy status; Z91.041 Radiographic dye allergy status; Z98.42 Cataract extraction status, left eye; Z98.41 Cataract extraction status, right eye
CPT/HCPCS: 36415; 94640; 93005; 83880; 80053; 83735; 85025; 71046; 99285; J8540

== ENCOUNTER 2018-11-24 16:46 | Inpatient (IN) | payer MEDICARE ==
[2018-11-24 17:38] LABS: Basophils # (A) 0.1 k/uL (0-0.2); Basophils % (A) 1 %; Eosinophils # (A) 0.5 k/uL (0-0.7); Eosinophils % (A) 6 %; Lymphocytes # (A) 1.3 k/uL (1.0-4.8); Lymphocytes % (A) 17 %; MCH 31.8 pg (25.0-35.0); MCHC 33.3 g/dL (31.0-37.0); MCV 95.5 fL (80.0-100.0); Mean Platelet Volume 6.9; Monocytes # (A) 0.6 k/uL (0-1.0); Monocytes % (A) 8 %; Neutrophils # (A) 4.9 k/uL (1.3-7.7); Neutrophils % (A) 64 %; Platelet Count 245 k/uL (150-450); RDW 13.2 % (11.5-15.5); WBC 7.7 k/uL (3.8-10.6)
[2018-11-24 17:56] LABS: ALT 23 U/L (21-72); AST 22 U/L (17-59); African American GFR (CKD) >90 (>60 ml/min/1.73 sqM); Alkaline Phosphatase 85 U/L (38-126); Anion Gap 11 mmol/L; Blood Urea Nitrogen 12 mg/dL (9-20); Calcium 9.2 mg/dL (8.4-10.2); Carbon Dioxide 21 mmol/L (22-30); Chloride 104 mmol/L (98-107); Glucose 99 mg/dL (74-99); Potassium 4.3 mmol/L (3.5-5.1); Sodium 136 mmol/L (137-145); Total Bilirubin 0.5 mg/dL (0.2-1.3); Total Protein 6.8 g/dL (6.3-8.2)
[2018-11-24] MEDS ORDERED: methylPREDNISolone SOD SUCCI 125 MG/2 ML VIAL IV STA (19:14)
[2018-11-24] MEDS ORDERED: ALBUTEROL NEBULIZED 2.5 MG/3 ML INHALATION STA (19:14)
[2018-11-24] MEDS ORDERED: IPRATROPIUM 0.5 MG/2.5 ML NEBU INHALATION STA (19:14)
--- NOTE | 2018-11-24 19:22 | ED ---
General Adult HPI - General Chief complaint: Shortness of Breath Stated complaint: KEERTHI/dizziness Time Seen by Provider: 11/24/18 19:00 Source: patient, RN notes reviewed Mode of arrival: wheelchair Limitations: no limitations - History of Present Illness Initial comments: This is a 73-year-old male with a past medical history significant for COPD. Patient states he continues to smoke. Patient comes in today because of the last 2 days is difficulty breathing got substantially worse per patient states he is taking a breathing treatment at least every 4 hours and within 30 minutes he is started to have a hard time breathing. Patient states he is somewhat alsocome to the emergency department. Patient denies any chest pain or palpitations. Patient denies any fever chills per patient denies any increased cough. Patient does complain about being a little more dizzy than normal and content walking holding onto the gonzalez. Patient denies any nausea. Patient denies symptoms increasing with moving his head. Recent denies any recent nausea vomiting diarrhea. Patient denies any abdominal pain. Patient denies any recent injury or trauma. - Related Data Home Medications Medication Instructions Recorded Confirmed Tamsulosin HCl [Flomax] 0.8 mg PO HS 03/24/18 11/24/18 Budesonide-Formot 160-4.5 Mcg 2 puff INHALATION RT-BID 04/20/18 11/24/18 [Symbicort 160-4.5 Mcg Inhaler] Apixaban [Eliquis] 5 mg PO BID 09/14/18 11/24/18 Famotidine 20 mg PO BID 09/24/18 11/24/18 Ipratropium-Albuterol Nebulize 3 ml INHALATION RT-Q4H 09/25/18 11/24/18 [Duoneb 0.5 mg-3 mg/3 ml Soln] Albuterol Inhaler [Ventolin Hfa 1 - 2 puff INHALATION RT-Q6H PRN 11/24/18 11/24/18 Inhaler] Umeclidinium [place] [Incruse 1 puff INHALATION RT-DAILY 11/24/18 11/24/18 Ellipta] Allergies Allergy/AdvReac Type Severity Reaction Status Date / Time Iodinated Contrast Media Allergy Rash/Hives Verified 11/24/18 19:18 [Iodinated Contrast- Oral and IV Dye] latex Allergy Rash/Hives Verified 11/24/18 19:18 Review of Systems ROS Statement: Those systems with pertinent positive or pertinent negative responses have been documented in the HPI. ROS Other: All systems not noted in ROS Statement are negative. Past Medical History Past Medical History: Atrial Fibrillation, COPD, Prostate Disorder Additional Past Medical History / Comment(s): Paroxysmal Afib, BPH History of Any Multi-Drug Resistant Organisms: None Reported Past Surgical History: No Surgical Hx Reported Additional Past Surgical History / Comment(s): Bilateral cataract removals-lens implants, colonoscpoy Past Anesthesia/Blood Transfusion Reactions: No Reported Reaction Additional Past Anesthesia/Blood Transfusion Reaction / Comment(s): has never received any blood transfusions Past Psychological History: No Psychological Hx Reported Smoking Status: Current every day smoker Past Alcohol Use History: None Reported Past Drug Use History: None Reported - Past Family History Mother Family Medical History: AFIB, Dementia Father Family Medical History: Myocardial Infarction ([place]) Additional Family Medical History / Comment(s): in his 70's from [place] General Exam - General Exam Comments Initial Comments: GENERAL: Patient is well-developed and well-nourished. Patient is nontoxic and well- hydrated and is in moderate distress. ENT: Neck is soft and supple. No significant lymphadenopathy is noted. Oropharynx is clear. Moist mucous membranes. Neck has full range of motion without eliciting any pain. EYES: The sclera were anicteric and conjunctiva were pink and moist. Extraocular movements were intact and pupils were equal round and reactive to light. Eyelids were unremarkable. PULMONARY: She has diffuse wheezing with decreased breath sounds. CARDIOVASCULAR: There is a regular rate and rhythm without any murmurs gallops or rubs. ABDOMEN: Soft and nontender with normal bowel sounds. No palpable organomegaly was noted. There is no palpable pulsatile mass. SKIN: Skin is clear with no lesions or rashes and otherwise unremarkable. NEUROLOGIC: Patient is alert and oriented x3. Cranial nerves II through XII are grossly intact. Motor and sensory are also intact. Normal speech, volume and content. Symmetrical smile. MUSCULOSKELETAL: Normal extremities with adequate strength and full range of motion. No lower extremity swelling or edema. No calf tenderness. LYMPHATICS: No significant lymphadenopathy is noted PSYCHIATRIC: Normal psychiatric evaluation. Limitations: no limitations Course Vital Signs 11/24/18 11/24/18 11/24/18 17:08 19:04 19:35 Temperature 97.8 F Pulse Rate 108 H 94 92 Respiratory 20 16 Rate Blood Pressure 96/60 130/87 O2 Sat by Pulse 94 L Oximetry 11/24/18 11/24/18 19:50 20:11 Temperature Pulse Rate 96 96 Respiratory Rate Blood Pressure O2 Sat by Pulse Oximetry Medical Decision Making - Medical Decision Making EKG shows sinus tachycardia at 106 bpm MI interval 152 QRS is 82 QT interval 356 QTC is 472. Patient's EKG shows no ST segment elevation or depression. Chest x-ray shows no acute abnormality. CT shows no acute normalities. Patient received 3 breathing treatments emergency department plus steroids and though he was improved he still continued to wheeze. I spoke with Dr. Traore and she agreed to admit the patient admitted the patient wrote admitting orders. I discussed smoking cessation for greater than 3 minutes. The risks of smoking were discussed with the patient including but not limited to risks of cancer, stroke, coronary artery disease and COPD. Also discussed with the patient were multiple methods of quitting smoking. Lastly we discussed the financial costs of smoking. - Lab Data Result diagrams: 11/24/18 17:29 11/24/18 17:29 Lab Results 11/24/18 11/24/18 11/24/18 Range/Units 17:29 17:29 17:29 WBC 7.7 (3.8-10.6) k/uL RBC 4.40 (4.30-5.90) m/uL Hgb 14.0 (13.0-17.5) gm/dL Hct 42.0 (39.0-53.0) % MCV 95.5 (80.0-100.0) fL MCH 31.8 (25.0-35.0) pg MCHC 33.3 (31.0-37.0) g/dL RDW 13.2 (11.5-15.5) % Plt Count 245 (150-450) k/uL Neutrophils % 64 % Lymphocytes % 17 % Monocytes % 8 % Eosinophils % 6 % Basophils % 1 % Neutrophils # 4.9 (1.3-7.7) k/uL Lymphocytes # 1.3 (1.0-4.8) k/uL Monocytes # 0.6 (0-1.0) k/uL Eosinophils # 0.5 (0-0.7) k/uL Basophils # 0.1 (0-0.2) k/uL PT (9.0-12.0) sec INR (<1.2) APTT (22.0-30.0) sec Sodium 136 L (137-145) mmol/L Potassium 4.3 (3.5-5.1) mmol/L Chloride 104 (98-107) mmol/L Carbon Dioxide 21 L (22-30) mmol/L Anion Gap 11 mmol/L BUN 12 (9-20) mg/dL Creatinine 0.96 (0.66-1.25) mg/dL Est GFR (CKD-EPI)AfAm >90 (>60 ml/min/1.73 sqM) Est GFR (CKD-EPI)NonAf 79 (>60 ml/min/1.73 sqM) Glucose 99 (74-99) mg/dL Calcium 9.2 (8.4-10.2) mg/dL Magnesium (1.6-2.3) mg/dL Total Bilirubin 0.5 (0.2-1.3) mg/dL AST 22 (17-59) U/L ALT 23 (21-72) U/L Alkaline Phosphatase 85 (38-126) U/L Troponin I <0.012 (0.000-0.034) ng/mL NT-Pro-B Natriuret Pep pg/mL Total Protein 6.8 (6.3-8.2) g/dL Albumin 4.0 (3.5-5.0) g/dL 11/24/18 11/24/18 11/24/18 Range/Units 17:29 17:29 17:29 WBC (3.8-10.6) k/uL RBC (4.30-5.90) m/uL Hgb (13.0-17.5) gm/dL Hct (39.0-53.0) % MCV (80.0-100.0) fL MCH (25.0-35.0) pg MCHC (31.0-37.0) g/dL RDW (11.5-15.5) % Plt Count (150-450) k/uL Neutrophils % % Lymphocytes % % Monocytes % % Eosinophils % % Basophils % % Neutrophils # (1.3-7.7) k/uL Lymphocytes # (1.0-4.8) k/uL Monocytes # (0-1.0) k/uL Eosinophils # (0-0.7) k/uL Basophils # (0-0.2) k/uL PT 10.2 (9.0-12.0) sec INR 0.9 (<1.2) APTT 26.9 (22.0-30.0) sec Sodium (137-145) mmol/L Potassium (3.5-5.1) mmol/L Chloride (98-107) mmol/L Carbon Dioxide (22-30) mmol/L Anion Gap mmol/L BUN (9-20) mg/dL Creatinine (0.66-1.25) mg/dL Est GFR (CKD-EPI)AfAm (>60 ml/min/1.73 sqM) Est GFR (CKD-EPI)NonAf (>60 ml/min/1.73 sqM) Glucose (74-99) mg/dL Calcium (8.4-10.2) mg/dL Magnesium 2.2 (1.6-2.3) mg/dL Total Bilirubin (0.2-1.3) mg/dL AST (17-59) U/L ALT (21-72) U/L Alkaline Phosphatase (38-126) U/L Troponin I (0.000-0.034) ng/mL NT-Pro-B Natriuret Pep 19 pg/mL Total Protein (6.3-8.2) g/dL Albumin (3.5-5.0) g/dL Critical Care Time Critical Care Time: Yes Total Critical Care Time: 35 Disposition Clinical Impression: COPD with acute exacerbation Disposition: ADMITTED IP TO THIS [facility] Time of Disposition: 20:59
--- NOTE | 2018-11-24 19:36 | XR ---
EXAMINATION TYPE: XR chest 2V DATE OF EXAM: 11/24/2018 COMPARISON: 11/15/2018 HISTORY: Difficulty breathing TECHNIQUE: Frontal and lateral views of the chest are obtained. FINDINGS: There is 5 mm calcified granuloma right upper lobe. Heart size is normal. There is slight coarsening of interstitial markings. There is no pleural effusion. Bony thorax is intact. IMPRESSION: Interstitial fibrotic changes. Normal heart. No heart failure. No significant change com pared to last exam.
[2018-11-24 19:46] LABS: INR 0.9 (<1.2); Partial Thromboplastin Time 26.9 sec (22.0-30.0); Prothrombin Time 10.2 sec (9.0-12.0)
--- NOTE | 2018-11-24 20:49 | CT ---
EXAMINATION TYPE: CT brain wo con DATE OF EXAM: 11/24/2018 COMPARISON: None HISTORY: Dizziness. CT DLP: 1100.4 mGycm Automated exposure control for dose reduction was used. FINDINGS: Ventricles have normal size. There is no mass effect nor midline shift. There is no sign of intracran ial hemorrhage. The calvarium is intact. IMPRESSION: NEGATIVE CT SCAN OF THE BRAIN.
[2018-11-24] MEDS: IPRATROPIUM-ALBUTEROL 3 ML NEB INHALATION PRN (23:18)
[2018-11-25 01:07] VITALS: BMI 25.7
[2018-11-25] MEDS: methylPREDNISolone SOD SUCCI 125 MG/2 ML VIAL IV SCH ×3 (01:20→12:28)
[2018-11-25] MEDS: IPRATROPIUM-ALBUTEROL 3 ML NEB INHALATION PRN ×3 (03:59→11:17)
[2018-11-25 06:26] VITALS: BP 112/79; RESP 22; TEMP 98.7
[2018-11-25] MEDS ORDERED: ALBUTEROL INHALER 60 PUFF/8 GM INHALER INHALATION PRN (09:23)
[2018-11-25] MEDS ORDERED: APIXABAN 5 MG TAB PO SCH (09:30)
[2018-11-25] MEDS ORDERED: FAMOTIDINE 20 MG TAB PO STA ×2 (10:10→11:13)
[2018-11-25 11:33] VITALS: PULSE 98
[2018-11-25 12:02] LABS: Glucose,Whole Blood 184 mg/dL (75-99)
--- NOTE | 2018-11-25 15:00 | P.HPIM ---
History of Present Illness Patient is a pleasant 73-year-old the male came in with complaints of shortness of breath and was wheezing and shortness of breath on admission. By the time I valid the patient wheezing resolved and patient is clinically doing well can use to smoke extensive counseling regarding smoking was provided patient is Doesn't bring up much. Patient will be started on weaning doses of steroids and will be discharged today. Patient denied any fever chills patient did have dizziness when he came in which resolved at this time. Patient does have rest of his inhalers at home. I do not believe patient will require any antibiotics, there is no pneumonia on the chest x-ray. Patient doesn't wear oxygen at home. Review of Systems REVIEW OF SYSTEMS: CONSTITUTIONAL: No fever, no malaise, no fatigue. HEENT: No recent visual problems or hearing problems. Denied any sore throat. CARDIOVASCULAR: No chest pain, orthopnea, PND, no palpitations, no syncope. PULMONARY: no hemoptysis. GASTROINTESTINAL: No diarrhea, no nausea, no vomiting, no abdominal pain. NEUROLOGICAL: No headaches, no weakness, no numbness. HEMATOLOGICAL: Denies any bleeding or petechiae. GENITOURINARY: Denies any burning micturition, frequency, or urgency. MUSCULOSKELETAL/RHEUMATOLOGICAL: Denies any joint pain, swelling, or any muscle pain. ENDOCRINE: Denies any polyuria or polydipsia. The rest of the 14-point review of systems is negative. Past Medical History Past Medical History: Atrial Fibrillation, COPD, Prostate Disorder Additional Past Medical History / Comment(s): Paroxysmal Afib, BPH History of Any Multi-Drug Resistant Organisms: None Reported Past Surgical History: No Surgical Hx Reported Additional Past Surgical History / Comment(s): Bilateral cataract removals-lens implants, colonoscpoy Past Anesthesia/Blood Transfusion Reactions: No Reported Reaction Additional Past Anesthesia/Blood Transfusion Reaction / Comment(s): has never received any blood transfusions Past Psychological History: No Psychological Hx Reported Additional Psychological History / Comment(s): Pt resides with his spouse and their son. They live in a downstairs apartment. They moved to this area apr 2018. from [facility]. Pt manages his own medications. He has a nebulizer. His son cooks and drives pt to [employer]. Smoking Status: Current every day smoker Past Alcohol Use History: None Reported Additional Past Alcohol Use History / Comment(s): Pt started smoking age 12(1958) got up to 5 ppd for many years then cut down to 3 ppd. (09/26) pt states that ppd varies on how the pt is feeling; currently reports 1 ppd. 11/24: patient currently smokes 1 ppd Past Drug Use History: None Reported - Past Family History Mother Family Medical History: AFIB, Dementia Father Family Medical History: Myocardial Infarction ([place]) Additional Family Medical History / Comment(s): in his 70's [place] Medications and Allergies Home Medications Medication Instructions Recorded Confirmed Type Tamsulosin HCl [Flomax] 0.8 mg PO HS 03/24/18 11/24/18 History Budesonide-Formot 160-4.5 Mcg 2 puff INHALATION RT-BID 04/20/18 11/24/18 History [Symbicort 160-4.5 Mcg Inhaler] Apixaban [Eliquis] 5 mg PO BID 09/14/18 11/24/18 History Famotidine 20 mg PO BID 09/24/18 11/24/18 History Ipratropium-Albuterol Nebulize 3 ml INHALATION RT-Q4H 09/25/18 11/24/18 History [Duoneb 0.5 mg-3 mg/3 ml Soln] Albuterol Inhaler [Ventolin Hfa 1 - 2 puff INHALATION RT-Q6H PRN 11/24/18 11/24/18 History Inhaler] Umeclidinium [place] [Incruse 1 puff INHALATION RT-DAILY 11/24/18 11/24/18 History Ellipta] Nicotine 14Mg/24Hr Patch [Habitrol] 1 patch TRANSDERM DAILY #14 patch 11/25/18 Rx predniSONE 10 mg PO DAILY #30 tab 11/25/18 Rx Allergies Allergy/AdvReac Type Severity Reaction Status Date / Time Iodinated Contrast Media Allergy Rash/Hives Verified 11/24/18 19:18 [Iodinated Contrast- Oral and IV Dye] latex Allergy Rash/Hives Verified 11/24/18 19:18 Physical Exam Vitals: Vital Signs Temp Pulse Pulse Resp BP BP Pulse Ox 11/25/18 12:31 98 11/25/18 11:32 98 11/25/18 11:17 94 11/25/18 07:58 100 11/25/18 07:43 102 H 11/25/18 06:25 98.7 F 81 22 112/79 95 11/25/18 04:33 97.8 F 64 20 134/76 96 11/25/18 04:17 92 11/25/18 03:59 88 11/25/18 00:00 95 18 11/24/18 23:30 104 H 11/24/18 23:18 108 H 11/24/18 23:17 98.7 F 100 18 111/78 92 L 11/24/18 22:20 75 18 126/71 99 11/24/18 20:11 96 11/24/18 19:50 96 11/24/18 19:35 92 11/24/18 19:04 94 16 130/87 11/24/18 17:08 97.8 F 108 H 20 96/60 94 L Intake and Output 11/24/18 11/25/18 11/25/18 22:59 06:59 14:59 Intake Total 240 Balance 240 Intake: Oral 240 Other: Voiding Method Toilet Urinal Weight 72.575 kg PHYSICAL EXAMINATION: GENERAL: The patient is alert and oriented x3, not in any acute distress. Well developed, well nourished. HEENT: Pupils are round and equally reacting to light. EOMI. No scleral icterus. No conjunctival pallor. Normocephalic, atraumatic. No pharyngeal erythema. No thyromegaly. CARDIOVASCULAR: S1 and S2 present. No murmurs, rubs, or gallops. PULMONARY: No significant wheezing was appreciated fairly good air entry bilateral lung meyers. ABDOMEN: Soft, nontender, nondistended, normoactive bowel sounds. No palpable organomegaly. MUSCULOSKELETAL: No joint swelling or deformity. EXTREMITIES: No cyanosis, clubbing, or pedal edema. NEUROLOGICAL: Gross neurological examination did not reveal any focal deficits. SKIN: No rashes. Results CBC & Chem 7: 11/24/18 17:29 11/24/18 17:29 Labs: Abnormal Lab Results - Last 24 Hours (Table) 11/24/18 11/25/18 Range/Units 17:29 11:59 Sodium 136 L (137-145) mmol/L Carbon Dioxide 21 L (22-30) mmol/L POC Glucose (mg/dL) 184 H (75-99) mg/dL Thrombosis Risk Factor Assmnt - Choose All That Apply Any of the Below Risk Factors Present?: Yes Each Factor Represents 1 point: Abnormal pulmonary function (COPD) Other Risk Factors: Yes Each Risk Factor Represents 2 Points: Age 61-74 years Thrombosis Risk Factor Assessment Total Risk Factor Score: 3 Thrombosis Risk Factor Assessment Level: Moderate Risk Assessment and Plan Plan: -COPD with acute exacerbation: Symptoms significantly improved with the systemic steroids inhalational treatments patient will be discharged with weaning doses of steroids will not require any antibiotics. Extensive counseling regarding smoking cessation was provided patient continues to smoke patient was instructed not to smoke, patient is high risk for readmission because of his continued smoking. -Continued nicotine use: Counseling as mentioned above -benign prostatic hypertrophy continue tamsulosin -Atrial ablation presently rate controlled continue with anticoagulation.
--- NOTE | 2018-11-25 15:00 | P.DS ---
Providers Date of admission: 11/24/18 19:23 Attending physician: Karin Weaver Primary care physician[facility] Course: Please refer to my HPI for further details Plan - Discharge Summary Discharge Rx Participant: No New Discharge Prescriptions: New predniSONE 10 mg PO DAILY #30 tab Nicotine 14Mg/24Hr Patch [Habitrol] 1 patch TRANSDERM DAILY #14 patch Continue Tamsulosin HCl [Flomax] 0.8 mg PO HS Budesonide-Formot 160-4.5 Mcg [Symbicort 160-4.5 Mcg Inhaler] 2 puff INHALATION RT-BID Apixaban [Eliquis] 5 mg PO BID Famotidine 20 mg PO BID Ipratropium-Albuterol Nebulize [Duoneb 0.5 mg-3 mg/3 ml Soln] 3 ml INHALATION RT-Q4H Umeclidinium [place] [Incruse Ellipta] 1 puff INHALATION RT-DAILY Albuterol Inhaler [Ventolin Hfa Inhaler] 1 - 2 puff INHALATION RT-Q6H PRN PRN Reason: Shortness Of Breath Discharge Medication List Tamsulosin HCl [Flomax] 0.8 mg PO HS 03/24/18 [History] Budesonide-Formot 160-4.5 Mcg [Symbicort 160-4.5 Mcg Inhaler] 2 puff INHALATION RT-BID 04/20/18 [History] Apixaban [Eliquis] 5 mg PO BID 09/14/18 [History] Famotidine 20 mg PO BID 09/24/18 [History] Ipratropium-Albuterol Nebulize [Duoneb 0.5 mg-3 mg/3 ml Soln] 3 ml INHALATION RT-Q4H 09/25/18 [History] Albuterol Inhaler [Ventolin Hfa Inhaler] 1 - 2 puff INHALATION RT-Q6H PRN 11/24/18 [History] Umeclidinium [place] [Incruse Ellipta] 1 puff INHALATION RT-DAILY 11/24/18 [History] Nicotine 14Mg/24Hr Patch [Habitrol] 1 patch TRANSDERM DAILY #14 patch 11/25/18 [Rx] predniSONE 10 mg PO DAILY #30 tab 11/25/18 [Rx] Follow up Appointment(s)/Referral(s): Frankie Wall, [Primary Care Provider] - 3 Days Patient Instructions/Handouts: COPD (Chronic Obstructive Pulmonary Disease) (DC) Discharge Disposition: HOME SELF-CARE
[2018-11-25] MEDS ORDERED: SYMBICORT 160-4.5 MCG INHALER INHALATION SCH (20:00)
[2018-11-25] MEDS ORDERED: TAMSULOSIN 0.4 MG CAP.ER.24H PO SCH (21:00)
[2018-11-25] MEDS ORDERED: FAMOTIDINE 20 MG TAB PO SCH (21:00)
== END 2018-11-25 12:51 | disposition home or self-care (01) | DRG 192 ==
LOC: EC 16:46 → 4SSUR 19:23
PROVIDERS: ADMIT Internal Medicine; ATTEND Internal Medicine
DX: J44.1 Chronic obstructive pulmonary disease with (acute) exacerbation (principal); I48.0 Paroxysmal atrial fibrillation; F17.210 Nicotine dependence, cigarettes, uncomplicated; N40.0 Benign prostatic hyperplasia without lower urinary tract symptoms; R42 Dizziness and giddiness; Z79.01 Long term (current) use of anticoagulants; Z79.51 Long term (current) use of inhaled steroids; Z79.899 Other long term (current) drug therapy; Z91.041 Radiographic dye allergy status; Z91.040 Latex allergy status; Z98.42 Cataract extraction status, left eye; Z98.41 Cataract extraction status, right eye; Z96.1 Presence of intraocular lens; Z71.6 Tobacco abuse counseling; Z82.49 Family history of ischemic heart disease and other diseases of the circulatory system
CPT/HCPCS: 36415; 70450; 71046; 80053; 83735; 83880; 84484; 85025; 85610; 85730; 93005; 94640; 94644; 96374; 96376; 99291

== ENCOUNTER 2018-12-17 14:04 | Emergency (ER) | payer MEDICARE ==
[2018-12-17 14:09] VITALS: BP 105/68; RESP 18; TEMP 97.6
[2018-12-17] MEDS ORDERED: IPRATROPIUM-ALBUTEROL 3 ML NEB INHALATION STA (14:36)
--- NOTE | 2018-12-17 14:43 | ED ---
General Adult HPI - General Chief complaint: Upper Respiratory Infection Stated complaint: Diff Breathing, Cough Time Seen by Provider: 12/17/18 14:11 Source: patient Mode of arrival: wheelchair Limitations: no limitations - History of Present Illness Initial comments: Patient is a 73-year-old male with history of COPD is presenting to emergency Department with a chief complaint of upper respiratory symptoms. Patient reports he developed sinus congestion about 3-4 days ago that has slowly increased in severity. Patient also reports clear bilateral rhinorrhea. He has developed an intermittent Cough with increased sputum production. Patient reports shortness of breath but states that is his baseline due to his COPD. Patient does not use oxygen at home but does use albuterol nebulizer. Patient denies sore throat, otalgia or sinus pain. Patient denies any fevers night sweats or chills. Patient denies any abdominal or back pain, chest pain nausea vomiting or diarrhea. Patient reports taking albuterol nebulizer with somewhat of an improvement although he feels like he still wheezing. - Related Data Home Medications Medication Instructions Recorded Confirmed Tamsulosin HCl [Flomax] 0.8 mg PO HS 03/24/18 12/17/18 Budesonide-Formot 160-4.5 Mcg 2 puff INHALATION RT-BID 04/20/18 12/17/18 [Symbicort 160-4.5 Mcg Inhaler] Apixaban [Eliquis] 5 mg PO BID 09/14/18 12/17/18 Famotidine 20 mg PO BID 09/24/18 12/17/18 Ipratropium-Albuterol Nebulize 3 ml INHALATION RT-Q4H 09/25/18 12/17/18 [Duoneb 0.5 mg-3 mg/3 ml Soln] Albuterol Inhaler [Ventolin Hfa 1 - 2 puff INHALATION RT-Q6H PRN 11/24/18 12/17/18 Inhaler] Umeclidinium [place] [Incruse 1 puff INHALATION RT-DAILY 11/24/18 12/17/18 Ellipta] Previous Rx's Medication Instructions Recorded Doxycycline Monohydrate [Monodox] 100 mg PO Q12HR #20 cap 12/17/18 Famotidine [Pepcid] 20 mg PO BID #5 tablet 12/17/18 predniSONE 50 mg PO DAILY #5 tab 12/17/18 Allergies Allergy/AdvReac Type Severity Reaction Status Date / Time Iodinated Contrast Media Allergy Rash/Hives Verified 12/17/18 14:58 [Iodinated Contrast- Oral and IV Dye] latex Allergy Rash/Hives Verified 12/17/18 14:58 Review of Systems ROS Statement: Those systems with pertinent positive or pertinent negative responses have been documented in the HPI. ROS Other: All systems not noted in ROS Statement are negative. Past Medical History Past Medical History: Atrial Fibrillation, COPD, Prostate Disorder Additional Past Medical History / Comment(s): Paroxysmal Afib, BPH History of Any Multi-Drug Resistant Organisms: None Reported Past Surgical History: No Surgical Hx Reported Additional Past Surgical History / Comment(s): Bilateral cataract removals-lens implants, colonoscpoy Past Anesthesia/Blood Transfusion Reactions: No Reported Reaction Additional Past Anesthesia/Blood Transfusion Reaction / Comment(s): has never received any blood transfusions Past Psychological History: No Psychological Hx Reported Smoking Status: Current every day smoker Past Alcohol Use History: None Reported Past Drug Use History: None Reported - Past Family History Mother Family Medical History: AFIB, Dementia Father Family Medical History: Myocardial Infarction ([place]) Additional Family Medical History / Comment(s): in his 70's [place] General Exam Limitations: no limitations General appearance: alert, in no apparent distress Head exam: Present: atraumatic, normocephalic, normal inspection Eye exam: Present: normal appearance, PERRL, EOMI Pupils: Present: normal accommodation ENT exam: Present: normal exam, normal oropharynx, mucous membranes moist, TM's normal bilaterally, normal external ear exam Neck exam: Present: normal inspection, full ROM. Absent: lymphadenopathy Respiratory exam: Present: wheezes (Bilateral wheezing) Cardiovascular Exam: Present: regular rate, normal rhythm, normal heart sounds Extremities exam: Present: normal inspection, full ROM Back exam: Present: normal inspection, full ROM. Absent: tenderness Neurological exam: Present: alert, oriented X3 Psychiatric exam: Present: normal affect, normal mood Skin exam: Present: warm, intact, normal color Course Vital Signs 12/17/18 12/17/18 12/17/18 14:06 15:31 15:40 Temperature 97.6 F Pulse Rate 90 84 88 Respiratory 18 Rate Blood Pressure 105/68 O2 Sat by Pulse 95 Oximetry 12/17/18 15:57 Temperature 97.6 F Pulse Rate 88 Respiratory 18 Rate Blood Pressure 105/68 O2 Sat by Pulse 95 Oximetry Medical Decision Making - Medical Decision Making Patient is a 73-year-old male with history of COPD is presenting to the emergency department with a chief complaint of upper respiratory symptoms. Patient has developed sinus congestion over the last few days along with an increased sputum production. Patient does have shortness of breath but states that is his baseline due to his COPD. Patient has no chest pain . Physical examination does indicate bilateral wheezing. Patient given nebulizer albuterol treatment with improvement in his symptoms. Patient was also given prednisone oral with Pepcid to prevent any possible stomach irregularity. Patient will be discharged with the same medication. I suspect the patient to have developed an upper respiratory infection which is gradually becoming a lower respiratory infection due to his risk factors of smoking, age and history of COPD. Considering the patient had increased sputum production and a history of COPD he will be discharged with doxycycline to prevent a possible pneumonia. Patient has a Wells score of 0 so low suspicion for PE. I counseled the patient for smoking cessation for greater than 3 minutes.Strict return parameters were thoroughly discussed patient was understanding and agreeable. Case discussed physician. Disposition Clinical Impression: Common cold, Cough Disposition: HOME SELF-CARE Condition: Stable Instructions (If sedation given, give patient instructions): Upper Respiratory Infection (ED) Additional Instructions: Please take prescribed medication as directed. Please return to emergency department is symptoms worsen. Please follow with primary care. Prescriptions: Doxycycline Monohydrate [Monodox] 100 mg PO Q12HR #20 cap Famotidine [Pepcid] 20 mg PO BID #5 tablet predniSONE 50 mg PO DAILY #5 tab Is patient prescribed a controlled substance at d/c from ED?: No Referrals: Frankie Wall DO [Primary Care Provider] - 1-2 days Time of Disposition: 15:52
--- NOTE | 2018-12-17 15:17 | XR ---
EXAMINATION TYPE: XR chest 2V DATE OF EXAM: 12/17/2018 COMPARISON: Chest x-ray November 24, 2018. HISTORY: History of COPD with cough and congestion. TECHNIQUE: Frontal and lateral views of the chest are obtained. FINDINGS: There is chronic parenchymal changes bilaterally without suspicious focal air space opacit y, pleural effusion, or pneumothorax seen. The cardiac silhouette size is within normal limits. Th e osseous structures are demineralized. IMPRESSION: Chronic parenchymal changes without acute pulmonary process.
[2018-12-17] MEDS ORDERED: FAMOTIDINE 20 MG/2 ML VIAL IV STA (15:31)
[2018-12-17] MEDS ORDERED: predniSONE 20 MG TAB PO STA (15:31)
[2018-12-17 15:41] VITALS: PULSE 88
[2018-12-17] MEDS ORDERED: FAMOTIDINE 20 MG TAB PO STA (15:50)
== END 2018-12-17 15:58 | disposition home or self-care (01) ==
LOC: EC 14:04
DX: J00 Acute nasopharyngitis [common cold] (principal); Z71.6 Tobacco abuse counseling; I48.0 Paroxysmal atrial fibrillation; J44.9 Chronic obstructive pulmonary disease, unspecified; N40.0 Benign prostatic hyperplasia without lower urinary tract symptoms; F17.200 Nicotine dependence, unspecified, uncomplicated; Z91.040 Latex allergy status; Z91.041 Radiographic dye allergy status; Z79.01 Long term (current) use of anticoagulants; Z79.51 Long term (current) use of inhaled steroids; Z79.899 Other long term (current) drug therapy; Z53.20 Procedure and treatment not carried out because of patient's decision for unspecified reasons
CPT/HCPCS: 94640; 71046; 99285; 99406; J7512

== ENCOUNTER 2018-12-29 19:46 | Observation (INO) | payer MEDICARE, OTHER ==
[2018-12-29] MEDS ORDERED: ALBUTEROL NEBULIZED 2.5 MG/3 ML INHALATION STA (20:07)
[2018-12-29] MEDS ORDERED: SODIUM CHLORIDE 0.9% 1,000 ML IV STA (20:07)
[2018-12-29] MEDS ORDERED: methylPREDNISolone SOD SUCCI 125 MG/2 ML VIAL IV STA (20:07)
[2018-12-29] MEDS ORDERED: AZITHROMYCIN 500 MG in SODIUM CHLORIDE 0.9% 250 ML IVPB STA (20:07)
[2018-12-29] MEDS ORDERED: IPRATROPIUM 0.5 MG/2.5 ML NEBU INHALATION STA (20:07)
--- NOTE | 2018-12-29 20:17 | ED ---
SOB HPI - General Chief Complaint: Shortness of Breath Stated Complaint: Difficulty Breathing Time Seen by Provider: 12/29/18 19:58 Source: patient Mode of arrival: wheelchair Limitations: no limitations - History of Present Illness Initial Comments: This is a 73-year-old male the ER for evaluation. Patient presents today for evaluation regards to shortness of breath severe shortness of breath and COPD exacerbation. Patient continues to smoke. Denying chest pain. He does appear treatments at home but he still without help. He says the change of weather has really hurt his breathing. No chest pain again. No fevers. Hospital admission about 2 months ago for same. MD Complaint: shortness of breath, cough, pain with inspiration -: days(s) Radiation: other (Pain) Severity: moderate Severity scale (1-10): 7 Quality: aching Consistency: constant Improves With: oxygen, rest, bronchodilators, medication Worsens With: exertion, movement Known History Of: COPD Context: recent URI Associated Symptoms: cough Treatments Prior to Arrival: none - Related Data Home Medications Medication Instructions Recorded Confirmed Tamsulosin HCl [Flomax] 0.8 mg PO HS 03/24/18 12/29/18 Budesonide-Formot 160-4.5 Mcg 2 puff INHALATION RT-BID 04/20/18 12/29/18 [Symbicort 160-4.5 Mcg Inhaler] Apixaban [Eliquis] 5 mg PO BID 09/14/18 12/29/18 Famotidine 20 mg PO BID 09/24/18 12/29/18 Ipratropium-Albuterol Nebulize 3 ml INHALATION RT-Q4H 09/25/18 12/29/18 [Duoneb 0.5 mg-3 mg/3 ml Soln] Albuterol Inhaler [Ventolin Hfa 1 - 2 puff INHALATION RT-Q6H PRN 11/24/18 12/29/18 Inhaler] Umeclidinium [place] [Incruse 1 puff INHALATION RT-DAILY 11/24/18 12/29/18 Ellipta] Previous Rx's Medication Instructions Recorded Doxycycline Monohydrate [Monodox] 100 mg PO Q12HR #20 cap 12/17/18 Famotidine [Pepcid] 20 mg PO BID #5 tablet 12/17/18 Allergies Allergy/AdvReac Type Severity Reaction Status Date / Time Iodinated Contrast Media Allergy Rash/Hives Verified 12/29/18 22:06 [Iodinated Contrast- Oral and IV Dye] latex Allergy Rash/Hives Verified 12/29/18 22:06 Review of Systems ROS Statement: Those systems with pertinent positive or pertinent negative responses have been documented in the HPI. ROS Other: All systems not noted in ROS Statement are negative. Past Medical History Past Medical History: Atrial Fibrillation, COPD, Prostate Disorder Additional Past Medical History / Comment(s): Paroxysmal Afib, BPH History of Any Multi-Drug Resistant Organisms: None Reported Past Surgical History: No Surgical Hx Reported Additional Past Surgical History / Comment(s): Bilateral cataract removals-lens implants, colonoscpoy Past Anesthesia/Blood Transfusion Reactions: No Reported Reaction Additional Past Anesthesia/Blood Transfusion Reaction / Comment(s): has never received any blood transfusions Past Psychological History: No Psychological Hx Reported Smoking Status: Current every day smoker Past Alcohol Use History: None Reported Past Drug Use History: None Reported - Past Family History Mother Family Medical History: AFIB, Dementia Father Family Medical History: Myocardial Infarction ([place]) Additional Family Medical History / Comment(s): in his 70's [place] General Exam Limitations: no limitations General appearance: alert, in no apparent distress Head exam: Present: atraumatic, normocephalic, normal inspection Eye exam: Present: normal appearance, PERRL, EOMI. Absent: scleral icterus, conjunctival injection, periorbital swelling ENT exam: Present: normal exam, mucous membranes moist Neck exam: Present: normal inspection. Absent: tenderness, meningismus, lymphadenopathy Respiratory exam: Present: normal lung sounds bilaterally. Absent: respiratory distress, wheezes, rales, rhonchi, stridor Cardiovascular Exam: Present: regular rate, normal rhythm, normal heart sounds. Absent: systolic murmur, diastolic murmur, rubs, gallop, clicks GI/Abdominal exam: Present: soft, normal bowel sounds. Absent: distended, tenderness, guarding, rebound, rigid Extremities exam: Present: normal inspection, full ROM, normal capillary refill. Absent: tenderness, pedal edema, joint swelling, calf tenderness Back exam: Present: normal inspection Neurological exam: Present: alert, oriented X3, CN II-XII intact Psychiatric exam: Present: normal affect, normal mood Skin exam: Present: warm, dry, intact, normal color. Absent: rash Course Vital Signs 12/29/18 12/29/18 12/29/18 19:51 20:34 21:00 Temperature 98.8 F Pulse Rate 88 Respiratory 22 24 Rate Blood Pressure 98/62 O2 Sat by Pulse 92 L 99 Oximetry 12/29/18 12/29/18 12/29/18 21:02 21:34 21:45 Temperature Pulse Rate 85 82 87 Respiratory 22 18 Rate Blood Pressure 98/73 O2 Sat by Pulse 99 Oximetry 12/29/18 22:44 Temperature Pulse Rate 96 Respiratory 20 Rate Blood Pressure 91/49 O2 Sat by Pulse 93 L Oximetry - Reevaluation(s) Reevaluation #1: 12/29/18 20:26 Records reviewed Medical Decision Making - Medical Decision Making 73 male COPD exacerbation secondary to continued due to smoking. Chest x-rays negative. We'll admit for continued breathing treatments and steroids. - Lab Data Result diagrams: 12/29/18 20:35 12/29/18 20:35 Lab Results 12/29/18 12/29/18 12/29/18 Range/Units 20:35 20:35 20:35 WBC 9.7 (3.8-10.6) k/uL RBC 4.48 (4.30-5.90) m/uL Hgb 15.0 (13.0-17.5) gm/dL Hct 42.9 (39.0-53.0) % MCV 95.6 (80.0-100.0) fL MCH 33.6 (25.0-35.0) pg MCHC 35.1 (31.0-37.0) g/dL RDW 12.5 (11.5-15.5) % Plt Count 228 (150-450) k/uL Neutrophils % 65 % Lymphocytes % 18 % Monocytes % 8 % Eosinophils % 6 % Basophils % 2 % Neutrophils # 6.3 (1.3-7.7) k/uL Lymphocytes # 1.7 (1.0-4.8) k/uL Monocytes # 0.8 (0-1.0) k/uL Eosinophils # 0.6 (0-0.7) k/uL Basophils # 0.2 (0-0.2) k/uL PT (9.0-12.0) sec INR (<1.2) APTT (22.0-30.0) sec Sodium 136 L (137-145) mmol/L Potassium 4.4 (3.5-5.1) mmol/L Chloride 107 (98-107) mmol/L Carbon Dioxide 22 (22-30) mmol/L Anion Gap 7 mmol/L BUN 25 H (9-20) mg/dL Creatinine 1.06 (0.66-1.25) mg/dL Est GFR (CKD-EPI)AfAm 81 (>60 ml/min/1.73 sqM) Est GFR (CKD-EPI)NonAf 70 (>60 ml/min/1.73 sqM) Glucose 101 H (74-99) mg/dL Calcium 9.5 (8.4-10.2) mg/dL Magnesium 2.0 (1.6-2.3) mg/dL Total Bilirubin 0.4 (0.2-1.3) mg/dL AST 22 (17-59) U/L ALT 28 (21-72) U/L Alkaline Phosphatase 77 (38-126) U/L Troponin I (0.000-0.034) ng/mL NT-Pro-B Natriuret Pep 37 pg/mL Total Protein 6.4 (6.3-8.2) g/dL Albumin 3.7 (3.5-5.0) g/dL 12/29/18 12/29/18 Range/Units 20:35 20:35 WBC (3.8-10.6) k/uL RBC (4.30-5.90) m/uL Hgb (13.0-17.5) gm/dL Hct (39.0-53.0) % MCV (80.0-100.0) fL MCH (25.0-35.0) pg MCHC (31.0-37.0) g/dL RDW (11.5-15.5) % Plt Count (150-450) k/uL Neutrophils % % Lymphocytes % % Monocytes % % Eosinophils % % Basophils % % Neutrophils # (1.3-7.7) k/uL Lymphocytes # (1.0-4.8) k/uL Monocytes # (0-1.0) k/uL Eosinophils # (0-0.7) k/uL Basophils # (0-0.2) k/uL PT 10.2 (9.0-12.0) sec INR 0.9 (<1.2) APTT 26.3 (22.0-30.0) sec Sodium (137-145) mmol/L Potassium (3.5-5.1) mmol/L Chloride (98-107) mmol/L Carbon Dioxide (22-30) mmol/L Anion Gap mmol/L BUN (9-20) mg/dL Creatinine (0.66-1.25) mg/dL Est GFR (CKD-EPI)AfAm (>60 ml/min/1.73 sqM) Est GFR (CKD-EPI)NonAf (>60 ml/min/1.73 sqM) Glucose (74-99) mg/dL Calcium (8.4-10.2) mg/dL Magnesium (1.6-2.3) mg/dL Total Bilirubin (0.2-1.3) mg/dL AST (17-59) U/L ALT (21-72) U/L Alkaline Phosphatase (38-126) U/L Troponin I <0.012 (0.000-0.034) ng/mL NT-Pro-B Natriuret Pep pg/mL Total Protein (6.3-8.2) g/dL Albumin (3.5-5.0) g/dL - EKG Data -: EKG Interpreted by Me (EKG shows sinus rhythm rate of 92, NE 170, QRS 84, QTC 440) - Radiology Data Radiology results: report reviewed (Chest x-rays negative for acute disease), image reviewed Disposition Clinical Impression: COPD with acute exacerbation, COPD exacerbation, Acute exacerbation of chronic obstructive airways disease Disposition: ADMITTED IP TO THIS HOSP Condition: Fair Is patient prescribed a controlled substance at d/c from ED?: No Referrals: Frankie Wall DO [Primary Care Provider] - 1-2 days
[2018-12-29 20:49] LABS: Basophils # (A) 0.2 k/uL (0-0.2); Basophils % (A) 2 %; Eosinophils # (A) 0.6 k/uL (0-0.7); Eosinophils % (A) 6 %; HCT 42.9 % (39.0-53.0); Lymphocytes # (A) 1.7 k/uL (1.0-4.8); Lymphocytes % (A) 18 %; MCH 33.6 pg (25.0-35.0); MCHC 35.1 g/dL (31.0-37.0); MCV 95.6 fL (80.0-100.0); Mean Platelet Volume 6.7; Monocytes # (A) 0.8 k/uL (0-1.0); Monocytes % (A) 8 %; Neutrophils # (A) 6.3 k/uL (1.3-7.7); Neutrophils % (A) 65 %; Platelet Count 228 k/uL (150-450); RBC 4.48 m/uL (4.30-5.90); RDW 12.5 % (11.5-15.5); WBC 9.7 k/uL (3.8-10.6)
[2018-12-29 20:56] LABS: INR 0.9 (<1.2); Partial Thromboplastin Time 26.3 sec (22.0-30.0); Prothrombin Time 10.2 sec (9.0-12.0)
[2018-12-29 20:57] LABS: Albumin 3.7 g/dL (3.5-5.0); Calcium 9.5 mg/dL (8.4-10.2); Potassium 4.4 mmol/L (3.5-5.1); Total Bilirubin 0.4 mg/dL (0.2-1.3); Total Protein 6.4 g/dL (6.3-8.2)
--- NOTE | 2018-12-29 22:15 | XR ---
EXAMINATION TYPE: XR chest 2V DATE OF EXAM: 12/29/2018 COMPARISON: 12/17/2018 HISTORY: Short of breath TECHNIQUE: Frontal and lateral views of the chest are obtained. FINDINGS: There is some coarsening of the interstitial pulmonary markings. There is no heart failure . Heart size is normal. There is no pleural effusion. IMPRESSION: Coarse lung markings probably related to pulmonary fibrosis. Normal heart. No significan t change.
[2018-12-29] MEDS ORDERED: IPRATROPIUM-ALBUTEROL 3 ML NEB INHALATION PRN (22:50)
[2018-12-29] MEDS: SODIUM CHLORIDE 0.9% 1,000 ML IV SCH (23:26)
[2018-12-30 00:42] VITALS: BMI 25.7
[2018-12-30] MEDS: methylPREDNISolone SOD SUCCI 125 MG/2 ML VIAL IV SCH ×3 (00:49→12:03)
[2018-12-30 04:43] VITALS: BP 116/67; RESP 19; TEMP 97.9
[2018-12-30] MEDS: ALBUTEROL NEBULIZED 2.5 MG/3 ML INHALATION SCH ×2 (08:28→12:06)
[2018-12-30] MEDS: SODIUM CHLORIDE 0.9% 1,000 ML IV SCH (12:03)
[2018-12-30 12:22] VITALS: PULSE 108
[2018-12-30] MEDS: IPRATROPIUM-ALBUTEROL 3 ML NEB INHALATION SCH ×2 (12:23→16:15)
[2018-12-30] MEDS ORDERED: INSULIN ASPART (NovoLOG) 100 UNIT/ML VIAL SQ SCH (12:30)
--- NOTE | 2018-12-30 17:10 | HP ---
HISTORY AND PHYSICAL THIS IS A COMBINED HISTORY AND PHYSICAL AND DISCHARGE SUMMARY: This 73-year-old gentleman with a past medical history of atrial ablation, COPD, history of paroxysmal atrial fibrillation, history of BPH, being followed Dr. Arvizu and Dr. Wall in the outpatient setting, was having difficulty in breathing for the last several days. Because of the weather changes, the patient reports like increased shortness of breath which was not relieved by breathing treatments. The patient came to [facility]. The patient had multiple breathing treatments as well as IV steroids. The patient is feeling slightly better. Dr. Yang has seen the patient and recommended the patient to be discharged and to follow up in the outpatient setting. There is no history of any fever, rigor or chills. No history of headache, chest pain, palpitations at this time. PAST MEDICAL HISTORY: 1. Atrial fibrillation. 2. COPD. 3. BPH. HOME MEDICATIONS: Reviewed. They include: 1. Incruse Ellipta 1 puff daily. 2. Flomax 0.8 at bedtime. 3. DuoNeb q.i.d. and p.r.n. 4. Pepcid. 5. Symbicort 160/4.5 two puffs b.i.d. 6. Eliquis 5 mg p.o. b.i.d. 7. Ventolin 1 to 2 puffs q.6 p.r.n. 8. Prednisone ALLERGIES: IODINATED CONTRAST DYES and LATEX. FAMILY HISTORY: History of atrial fibrillation and dementia. SOCIAL HISTORY: History of continued ongoing smoking. No history of alcohol intake. REVIEW OF SYSTEMS: ENT: No diminished hearing. No diminished vision. CARDIOVASCULAR SYSTEM: No angina, palpitations. RESPIRATORY SYSTEM: As mentioned earlier. GI: No nausea, vomiting. : No dysuria or retention. NERVOUS SYSTEM: No numbness, weakness. ALLERGY/IMMUNOLOGY: No asthma, hayfever. MUSCULOSKELETAL: As mentioned earlier. HEMATOLOGY/ONCOLOGY: No history of anemia. ENDOCRINE: No history of diabetes, hypothyroidism. CONSTITUTIONAL: As mentioned earlier. DERMATOLOGY: Negative. RHEUMATOLOGY: Negative. PSYCHIATRY: As mentioned earlier. PHYSICAL EXAMINATION: Patient alert and oriented x3. Pulse is 110, blood pressure 116/67, respiration 19, temperature 97.9, pulse ox 96% on 2 L. HEENT: Conjunctivae normal. Oral mucosa moist. NECK: No jugular venous distention. No carotid bruit. No lymph node enlargement. Breathing efforts are slightly increased. CARDIOVASCULAR SYSTEM: S1, S2 muffled. No S3. No S4. RESPIRATORY SYSTEM: Breath sounds diminished at the bases. Bilateral scattered rhonchi and crackles. Expiratory wheezing also present. ABDOMEN: Soft, non-tender. No mass palpable. LEGS: No edema. No swelling. NERVOUS SYSTEM: Higher functions as mentioned earlier. Moves all 4 limbs. No focal motor or sensory deficit. LYMPHATICS: No lymph node palpable in neck, axillae or groin. SKIN: No ulcer, rash, bleeding. JOINTS: No active deforming arthropathy. LABS: CBC within normal limits. Sodium 136, glucose 101. ASSESSMENT: 1. Chronic obstructive pulmonary disease, acute exacerbation, with acute purulent tracheobronchitis. 2. Atrial fibrillation, paroxysmal. 3. History of chronic obstructive pulmonary disease. 4. History of benign prostatic hypertrophy. 5. History of continued ongoing nicotine dependence. 6. Bilateral cataracts. 7. Hyponatremia, mild. RECOMMENDATIONS AND DISCUSSION: In this 73-year-old gentleman who presented with multiple medical issues, at this time I recommend continuing the current medication. As mentioned earlier, Dr. Yang has recommended outpatient followup. The following medications are recommended from the discharge point of view. Otherwise, I recommend smoking cessation and close followup with Dr. Arvizu as well as Dr. Wall. DISCHARGE ADVICE AND MEDICATIONS: 1. Diet is cardiac. 2. Activity limited until followup. 3. DuoNeb q.i.d. and p.r.n. 4. Eliquis 5 mg p.o. b.i.d. 5. Pepcid 20 mg p.o. b.i.d. 6. Flomax 0.4 at bedtime. 7. Incruse Ellipta 1 puff daily. 8. Symbicort 160/4.5 two puffs b.i.d. 9. Ceftin 500 mg p.o. b.i.d. 10.Prednisone 40 mg p.o. daily for 3 days, 30 mg for 3 days, 20 mg for 3 days, 10 mg for 3 days. 11.Zithromax 500 mg p.o. b.i.d. for 3 days. Once again, the patient will be discharged in stable condition with guarded prognosis. MMODL / IJN: [id number] / MTDD
--- NOTE | 2018-12-30 19:31 | CONS ---
CONSULTATION REASON FOR CONSULTATION: Shortness of breath. HISTORY OF PRESENT ILLNESS: A 73-year-old smoker who has been smoking for 60 years. He presents to the emergency room with complaints of increasing shortness of breath. The patient apparently saw Dr. Lou there. It has been going on for a couple days prior to admission. The patient also complained of cough and occasional phlegm production. Lots of chest congestion, tightness in his chest and wheezing. He was seen in the emergency room, admitted with a diagnosis of COPD exacerbation. When seen today, the patient is sitting up in the chair. He is not requiring any supplemental oxygen. The patient states he is feeling 100 times better and would like to be discharged home. The patient had a recent admission about 2 months prior for the same thing. He states that his breathing is back to normal. Apparently his is seeing 1 of us in the office tomorrow. She is a heavy smoker as well. Mr. Hinkle has no desire to quit smoking. MEDICATIONS: Reviewed. They include Flomax, Symbicort, Eliquis, famotidine, DuoNeb, albuterol inhaler, Incruse Ellipta, doxycycline and famotidine. ALLERGIES: INCLUDE IVP DYE AND LATEX. PAST MEDICAL HISTORY: Includes COPD, BPH, atrial fibrillation. SURGICAL HISTORY: Includes bilateral cataract surgery with lens implants and colonoscopy. SOCIAL HISTORY: Positive for ongoing tobacco use. He has been smoking since the age of 13. He smokes anywhere from 1-2 packs a day. He denies any alcohol use or illicit drug use. FAMILY HISTORY: Positive for mother with atrial fibrillation and dementia and a father with a history of myocardial infarction. REVIEW OF SYSTEMS: CONSTITUTIONAL negative. HEENT negative. CARDIOVASCULAR: Atrial fibrillation. PULMONARY: Shortness of breath, chest tightness, wheezing, cough, chest congestion and occasional phlegm production. GI negative. negative. RHEUMATOLOGIC negative. IMMUNOLOGIC negative. ENDOCRINOLOGIC negative. DERMATOLOGIC negative. PHYSICAL EXAMINATION: VITAL SIGNS: Current vital signs include: Temperature 97.9, heart rate 110 and irregular, respiratory rate 19, blood pressure 116/67, mean 83 and 2 L saturation 96%. Room air saturation is 94%. GENERAL: Appears in no acute distress. HEENT examination is grossly unremarkable. Mucous membranes are moist. NECK: Supple. Full range of motion. No adenopathy or thyromegaly. Neck veins are flat. CARDIOVASCULAR examination reveals a regular rhythm and rate. Heart rate about 100 beats per minute. He is in atrial fibrillation. S1, S2 normal. No murmur. LUNGS: Reveal severely diminished breath sounds throughout. A few scattered rhonchi noted. Some mild expiratory wheezes. There is slight prolongation on forced maneuver. Adventitious lung sounds are more prominent on forced maneuver. ABDOMEN: Soft. Bowel sounds are heard. EXTREMITIES are intact. No cyanosis, clubbing, or edema. SKIN: Without rash. NEUROLOGIC: Examination is brief, but nonfocal. X-RAY: Most recent chest x-ray was done. It shows changes of COPD and some possible interstitial changes. LAB DATA: Reviewed. CBC is normal. White count 9.7, hemoglobin 15, hematocrit 42.9, platelet count 228,000. PT 10.2, INR 0.9, PTT is 26.3. Sodium 136, potassium 4.4, chloride 107, CO2 22. Anion gap is 7. BUN and creatinine were 25 and 1.06. The rest of the labs look okay. Medications are reviewed. They include Eliquis, Symbicort, Rocephin, Pepcid, insulin, DuoNeb, Solu-Medrol, Flomax, and a basic IV. ASSESSMENT: 1. Chronic obstructive pulmonary disease exacerbation complicated by purulent tracheobronchitis, without patricia pneumonia. 2. Rule out interstitial lung disease. 3. Ongoing tobacco use with nicotine addiction. 4. History of chronic atrial fibrillation. 5. Benign prostatic hypertrophy. 6. History of bilateral cataract surgery with lens implants. PLAN: The patient is doing well. He is on all appropriate medications including short-acting beta agonist, short-acting muscarinic antagonist, long-acting beta agonist, inhaled corticosteroids, systemic corticosteroids and antibiotics. The patient is counseled about the importance of smoking cessation. I doubt he will stop smoking. He has been smoking for 60 years. He acknowledges that it is not right for him to smoke, but he realizes that he probably will continue to smoke. His also smokes. The patient will follow up in the office. I believe he sees Dr. Tucker or Dr. Arvizu. No additional recommendations are made. Prognosis is guarded. MMODL / IJN: [id number] /
[2018-12-30] MEDS ORDERED: SYMBICORT 160-4.5 MCG INHALER INHALATION SCH (20:00)
[2018-12-30] MEDS ORDERED: TAMSULOSIN 0.4 MG CAP.ER.24H PO SCH (21:00)
[2018-12-30] MEDS ORDERED: FAMOTIDINE 20 MG TAB PO SCH (21:00)
[2018-12-30] MEDS ORDERED: APIXABAN 5 MG TAB PO SCH (21:00)
== END 2018-12-30 16:10 | disposition home or self-care (01) ==
LOC: EC 19:46 → 3NMEDONC 22:50
PROVIDERS: ADMIT Hospitalist; ATTEND Hospitalist
DX: J44.1 Chronic obstructive pulmonary disease with (acute) exacerbation (principal); J44.0 Chronic obstructive pulmonary disease with (acute) lower respiratory infection; J20.9 Acute bronchitis, unspecified; E87.1 Hypo-osmolality and hyponatremia; I48.0 Paroxysmal atrial fibrillation; N40.0 Benign prostatic hyperplasia without lower urinary tract symptoms; F17.210 Nicotine dependence, cigarettes, uncomplicated; Z79.51 Long term (current) use of inhaled steroids; Z79.01 Long term (current) use of anticoagulants; Z79.899 Other long term (current) drug therapy; Z91.041 Radiographic dye allergy status; Z91.040 Latex allergy status; Z98.42 Cataract extraction status, left eye; Z98.41 Cataract extraction status, right eye; Z96.1 Presence of intraocular lens; Z82.49 Family history of ischemic heart disease and other diseases of the circulatory system; Z81.8 Family history of other mental and behavioral disorders
CPT/HCPCS: 96376; 96365; 96366; 96375; 99285; 36415; 94640 ×3; 93005; 83880; 80053; 83735; 84484; 85025; 85610; 85730; 87040; 71046; G0378 ×2; J2930 ×2; J0456

== ENCOUNTER → 2019-01-07 | Outpatient (CLI) | payer MEDICARE ==
[2019-01-07 14:43] LABS: Basophils # (A) 0.1 k/uL (0-0.2); Basophils % (A) 1 %; Eosinophils # (A) 0.1 k/uL (0-0.7); Eosinophils % (A) 1 %; HCT 45.7 % (39.0-53.0); HGB 15.4 gm/dL (13.0-17.5); Lymphocytes # (A) 2.3 k/uL (1.0-4.8); Lymphocytes % (A) 18 %; MCH 32.8 pg (25.0-35.0); MCHC 33.7 g/dL (31.0-37.0); MCV 97.2 fL (80.0-100.0); Mean Platelet Volume 7.1; Monocytes # (A) 0.9 k/uL (0-1.0); Monocytes % (A) 7 %; Neutrophils # (A) 8.8 k/uL (1.3-7.7); Neutrophils % (A) 71 %; Platelet Count 264 k/uL (150-450); RDW 12.2 % (11.5-15.5); WBC 12.4 k/uL (3.8-10.6)
[2019-01-07 19:45] LABS: African American GFR (CKD) 76.8 (60.0-200.0); Anion Gap 10.5 mmol/L (4.00-12.00); BUN/Creat Ratio 17.27 Ratio (12.00-20.00); Calcium 9.4 mg/dL (8.7-10.3); Carbon Dioxide 26.5 mmol/L (21.6-31.8); Potassium 4.2 mmol/L (3.5-5.5)
== END | disposition home or self-care (01) ==
LOC: LABWHC1 13:31
PROVIDERS: ATTEND Hospitalist
DX: J44.9 Chronic obstructive pulmonary disease, unspecified (principal)
CPT/HCPCS: 36415; 80048; 85025

== ENCOUNTER 2019-01-21 07:21 | Emergency (ER) | payer MEDICARE ==
[2019-01-21 07:33] VITALS: BP 114/77; PULSE 74; TEMP 97.6
--- NOTE | 2019-01-21 07:53 | ED ---
Skin/Abscess/FB HPI - General Chief complaint: Skin/Abscess/Foreign Body Stated complaint: rash Time Seen by Provider: 01/21/19 07:34 Source: patient, RN notes reviewed, old records reviewed Mode of arrival: ambulatory Limitations: no limitations - History of Present Illness Initial comments: Patient's a 73-year-old male, who presents today for evaluation for acute rash. Patient ports in the past 2 days has noticed erythema over his upper arms, he did put that initial cream on it seemed to help with itching. Patient states that he's had no specific hives or new exposures. Patient states that he initially thought it was related to some dry skin sleep but he'll motion on it. Patient states that he has no other areas of rash. Denies any tongue swelling or difficulty breathing. - Related Data Home Medications Medication Instructions Recorded Confirmed Tamsulosin HCl [Flomax] 0.8 mg PO HS 03/24/18 12/29/18 Budesonide-Formot 160-4.5 Mcg 2 puff INHALATION RT-BID 04/20/18 12/29/18 [Symbicort 160-4.5 Mcg Inhaler] Apixaban [Eliquis] 5 mg PO BID 09/14/18 12/29/18 Famotidine 20 mg PO BID 09/24/18 12/29/18 Ipratropium-Albuterol Nebulize 3 ml INHALATION RT-Q4H 09/25/18 12/29/18 [Duoneb 0.5 mg-3 mg/3 ml Soln] Albuterol Inhaler [Ventolin Hfa 1 - 2 puff INHALATION RT-Q6H PRN 11/24/18 12/29/18 Inhaler] Umeclidinium [place] [Incruse 1 puff INHALATION RT-DAILY 11/24/18 12/29/18 Ellipta] Previous Rx's Medication Instructions Recorded Famotidine [Pepcid] 20 mg PO BID #5 tablet 12/17/18 Azithromycin [Zithromax] 500 mg PO DAILY 3 Days #3 tab 12/30/18 Cefuroxime Axetil [Ceftin] 500 mg PO BID 3 Days #6 tab 12/30/18 predniSONE 10 mg PO DIRECTED #30 tab 12/30/18 Hydrocortisone Cream 1 applic TOPICAL BID #60 gm 01/21/19 [Hydrocortisone 1% Cream] predniSONE 20 mg PO BID #6 tab 11/20/19 Allergies Allergy/AdvReac Type Severity Reaction Status Date / Time Iodinated Contrast Media Allergy Rash/Hives Verified 01/21/19 07:34 [Iodinated Contrast- Oral and IV Dye] latex Allergy Rash/Hives Verified 01/21/19 07:34 Review of Systems ROS Statement: Those systems with pertinent positive or pertinent negative responses have been documented in the HPI. ROS Other: All systems not noted in ROS Statement are negative. Past Medical History Past Medical History: Atrial Fibrillation, COPD, Prostate Disorder Additional Past Medical History / Comment(s): Paroxysmal Afib, BPH History of Any Multi-Drug Resistant Organisms: None Reported Past Surgical History: No Surgical Hx Reported Additional Past Surgical History / Comment(s): Bilateral cataract removals-lens implants, colonoscpoy Past Anesthesia/Blood Transfusion Reactions: No Reported Reaction Additional Past Anesthesia/Blood Transfusion Reaction / Comment(s): Has never received any blood transfusions. Past Psychological History: No Psychological Hx Reported Smoking Status: Current every day smoker Past Alcohol Use History: None Reported Past Drug Use History: None Reported - Past Family History Mother Family Medical History: AFIB, Dementia Father Family Medical History: Myocardial Infarction ([place]) Additional Family Medical History / Comment(s): in his 70's [place] General Exam - General Exam Comments Initial Comments: 73-year-old male. Alert and oriented. No distress. Limitations: no limitations General appearance: alert, in no apparent distress Head exam: Present: atraumatic, normocephalic, normal inspection Eye exam: Present: normal appearance ENT exam: Present: normal exam, mucous membranes moist Neck exam: Present: normal inspection Respiratory exam: Present: normal lung sounds bilaterally. Absent: respiratory distress, wheezes, rales, rhonchi, stridor Cardiovascular Exam: Present: regular rate, normal rhythm, normal heart sounds. Absent: systolic murmur, diastolic murmur, rubs, gallop, clicks GI/Abdominal exam: Present: soft, normal bowel sounds. Absent: distended, tenderness, guarding, rebound, rigid Extremities exam: Present: normal inspection, full ROM, normal capillary refill, other ( minimal erythema macular rash pver upper inner arms, no hives. Appears contact dermatitis or dry skin. ). Absent: tenderness, pedal edema, joint swelling, calf tenderness Back exam: Present: normal inspection Neurological exam: Present: alert, oriented X3, CN II-XII intact Course Vital Signs 01/21/19 01/21/19 07:32 07:43 Temperature 97.6 F Pulse Rate 74 Respiratory 16 20 Rate Blood Pressure 114/77 O2 Sat by Pulse 96 Oximetry Medical Decision Making - Medical Decision Making 73-year-old male presents today for acute rashes past 2 days. Complains of itching skin over his upper arms. This time Patient has some mild erythema noted. No hives. Appears in no distress. No tongue swelling or difficulty breathing. At this time patient's advised that likely contact her otitis possible dry skin. Patient has minimize use hypoallergenic lotions, as well as the Patient a short course of steroid cream. Discussed return parameters and close PCP follow-up. Disposition Clinical Impression: Dermatitis Disposition: HOME SELF-CARE Condition: Good Instructions (If sedation given, give patient instructions): Contact Dermatitis (DC), Eczema (ED) Additional Instructions: Please use medication as discussed. Please follow up with family doctor if symptoms have not improved over the next two days. Please return to the emergency room if your symptoms increase or worsen or for any other concerns. Advised to use hypoallergenic lotion such as Lubriderm, Eucerin or Aveeno. Prescriptions: Hydrocortisone Cream [Hydrocortisone 1% Cream] 1 applic TOPICAL BID #60 gm predniSONE 20 mg PO BID #6 tab Is patient prescribed a controlled substance at d/c from ED?: No Referrals: Frankie Wall DO [Primary Care Provider] - 1-2 days Time of Disposition: 07:49
[2019-01-21 08:01] VITALS: RESP 18
== END 2019-01-21 08:03 | disposition home or self-care (01) ==
LOC: EC 07:21
DX: L30.9 Dermatitis, unspecified (principal); I48.0 Paroxysmal atrial fibrillation; J44.9 Chronic obstructive pulmonary disease, unspecified; N40.0 Benign prostatic hyperplasia without lower urinary tract symptoms; F17.200 Nicotine dependence, unspecified, uncomplicated; Z91.040 Latex allergy status; Z91.041 Radiographic dye allergy status; Z79.01 Long term (current) use of anticoagulants; Z79.51 Long term (current) use of inhaled steroids; Z79.899 Other long term (current) drug therapy
CPT/HCPCS: 99283

== ENCOUNTER 2019-02-04 17:56 | Inpatient (IN) | payer MEDICARE, OTHER ==
[2019-02-04] MEDS ORDERED: methylPREDNISolone SOD SUCCI 125 MG/2 ML VIAL IV STA (18:40)
[2019-02-04] MEDS ORDERED: ALBUTEROL NEBULIZED 2.5 MG/3 ML INHALATION STA (18:40)
[2019-02-04] MEDS ORDERED: IPRATROPIUM 0.5 MG/2.5 ML NEBU INHALATION STA (18:40)
--- NOTE | 2019-02-04 18:51 | ED ---
General Adult HPI - General Chief complaint: Shortness of Breath Stated complaint: KEERTHI Time Seen by Provider: 02/04/19 18:05 Source: patient, RN notes reviewed, old records reviewed Mode of arrival: ambulatory Limitations: no limitations - History of Present Illness Initial comments: This is a 73-year-old male presents emergency department with past medical history significant for COPD. Patient states she continues to smoke. Patient states difficulty breathing got worse over the last couple days he denies any cough. Patient denies any fever chills. Patient denies any chest pain or palpitations. Patient denies abdominal pain patient denies nausea vomiting diarrhea. Denies any leg swelling or calf tenderness. Patient states he takes his breathing treatments at home he gets improvement but short-lived and less than hours back to being short of breath. - Related Data Home Medications Medication Instructions Recorded Confirmed Tamsulosin HCl [Flomax] 0.8 mg PO HS 03/24/18 12/29/18 Budesonide-Formot 160-4.5 Mcg 2 puff INHALATION RT-BID 04/20/18 12/29/18 [Symbicort 160-4.5 Mcg Inhaler] Apixaban [Eliquis] 5 mg PO BID 09/14/18 12/29/18 Famotidine 20 mg PO BID 09/24/18 12/29/18 Ipratropium-Albuterol Nebulize 3 ml INHALATION RT-Q4H 09/25/18 12/29/18 [Duoneb 0.5 mg-3 mg/3 ml Soln] Albuterol Inhaler [Ventolin Hfa 1 - 2 puff INHALATION RT-Q6H PRN 11/24/18 12/29/18 Inhaler] Umeclidinium [place] [Incruse 1 puff INHALATION RT-DAILY 11/24/18 12/29/18 Ellipta] Previous Rx's Medication Instructions Recorded Famotidine [Pepcid] 20 mg PO BID #5 tablet 12/17/18 Azithromycin [Zithromax] 500 mg PO DAILY 3 Days #3 tab 12/30/18 Cefuroxime Axetil [Ceftin] 500 mg PO BID 3 Days #6 tab 12/30/18 predniSONE 10 mg PO DIRECTED #30 tab 12/30/18 Hydrocortisone Cream 1 applic TOPICAL BID #60 gm 01/21/19 [Hydrocortisone 1% Cream] predniSONE 20 mg PO BID #6 tab 01/21/19 Allergies Allergy/AdvReac Type Severity Reaction Status Date / Time Iodinated Contrast Media Allergy Rash/Hives Verified 02/04/19 18:04 [Iodinated Contrast- Oral and IV Dye] latex Allergy Rash/Hives Verified 02/04/19 18:04 Review of Systems ROS Statement: Those systems with pertinent positive or pertinent negative responses have been documented in the HPI. ROS Other: All systems not noted in ROS Statement are negative. Past Medical History Past Medical History: Atrial Fibrillation, COPD, Prostate Disorder Additional Past Medical History / Comment(s): Paroxysmal Afib, BPH History of Any Multi-Drug Resistant Organisms: None Reported Past Surgical History: No Surgical Hx Reported Additional Past Surgical History / Comment(s): Bilateral cataract removals-lens implants, colonoscpoy Past Anesthesia/Blood Transfusion Reactions: No Reported Reaction Additional Past Anesthesia/Blood Transfusion Reaction / Comment(s): Has never received any blood transfusions. Past Psychological History: No Psychological Hx Reported Smoking Status: Current every day smoker Past Alcohol Use History: None Reported Past Drug Use History: None Reported - Past Family History Mother Family Medical History: AFIB, Dementia Father Family Medical History: Myocardial Infarction ([place]) Additional Family Medical History / Comment(s): in his 70's from [place] General Exam - General Exam Comments Initial Comments: GENERAL: Patient is well-developed and well-nourished. Patient is nontoxic and well- hydrated and is in mild distress. ENT: Neck is soft and supple. No significant lymphadenopathy is noted. Oropharynx is clear. Moist mucous membranes. Neck has full range of motion without eliciting any pain. EYES: The sclera were anicteric and conjunctiva were pink and moist. Extraocular mo vements were intact and pupils were equal round and reactive to light. Eyelids were unremarkable. PULMONARY: Patient has diffuse expiratory wheezing CARDIOVASCULAR: There is a regular rate and rhythm without any murmurs gallops or rubs. ABDOMEN: Soft and nontender with normal bowel sounds. No palpable organomegaly was noted. There is no palpable pulsatile mass. SKIN: Skin is clear with no lesions or rashes and otherwise unremarkable. NEUROLOGIC: Patient is alert and oriented x3. Cranial nerves II through XII are grossly intact. Motor and sensory are also intact. Normal speech, volume and content. Symmetrical smile. MUSCULOSKELETAL: Normal extremities with adequate strength and full range of motion. No lower extremity swelling or edema. No calf tenderness. LYMPHATICS: No significant lymphadenopathy is noted PSYCHIATRIC: Normal psychiatric evaluation. Limitations: no limitations Course Vital Signs 02/04/19 02/04/19 02/04/19 18:04 18:07 19:07 Temperature 97.4 F L 97.4 F L 97.4 F L Pulse Rate 85 85 85 Respiratory 18 18 18 Rate Blood Pressure 132/86 132/86 122/72 O2 Sat by Pulse 94 L 94 L 94 L Oximetry 02/04/19 02/04/19 02/04/19 19:12 19:17 19:33 Temperature Pulse Rate 84 82 Respiratory 18 26 H Rate Blood Pressure 106/74 O2 Sat by Pulse 98 Oximetry 02/04/19 02/04/19 19:36 20:00 Temperature Pulse Rate 82 98 Respiratory 26 H Rate Blood Pressure 125/91 O2 Sat by Pulse 95 Oximetry Medical Decision Making - Medical Decision Making EKG shows normal sinus rhythm at 81 bpm FL interval 282 QRS is 84 QT interval 380 QTC is 450. Patient's EKG shows no ST segment elevation or depression or T wave abnormalities are noted. Chest x-ray shows no acute abnormality. Patient received 3 breathing treatments as well as emergency department some steroids. I went back and after that and reevaluate the patient he was doing considerably better and his wheezes were much improved. I spoke with Mr. Suazo hospitalist I admitted the patient I wrote admitting orders. - Lab Data Result diagrams: 02/04/19 18:32 02/04/19 18:32 Lab Results 02/04/19 02/04/19 02/04/19 Range/Units 18:32 18:32 18:32 WBC 7.6 (3.8-10.6) k/uL RBC 4.50 (4.30-5.90) m/uL Hgb 15.0 (13.0-17.5) gm/dL Hct 42.5 (39.0-53.0) % MCV 94.4 (80.0-100.0) fL MCH 33.3 (25.0-35.0) pg MCHC 35.2 (31.0-37.0) g/dL RDW 12.2 (11.5-15.5) % Plt Count 242 (150-450) k/uL Neutrophils % 63 % Lymphocytes % 18 % Monocytes % 8 % Eosinophils % 7 % Basophils % 1 % Neutrophils # 4.8 (1.3-7.7) k/uL Lymphocytes # 1.4 (1.0-4.8) k/uL Monocytes # 0.6 (0-1.0) k/uL Eosinophils # 0.5 (0-0.7) k/uL Basophils # 0.1 (0-0.2) k/uL PT 10.5 (9.0-12.0) sec INR 1.0 (<1.2) APTT 27.8 (22.0-30.0) sec Sodium 135 L (137-145) mmol/L Potassium 4.2 (3.5-5.1) mmol/L Chloride 102 (98-107) mmol/L Carbon Dioxide 27 (22-30) mmol/L Anion Gap 6 mmol/L BUN 14 (9-20) mg/dL Creatinine 0.96 (0.66-1.25) mg/dL Est GFR (CKD-EPI)AfAm >90 (>60 ml/min/1.73 sqM) Est GFR (CKD-EPI)NonAf 79 (>60 ml/min/1.73 sqM) Glucose 84 (74-99) mg/dL Calcium 9.5 (8.4-10.2) mg/dL Total Bilirubin 0.6 (0.2-1.3) mg/dL AST 24 (17-59) U/L ALT 23 (21-72) U/L Alkaline Phosphatase 68 (38-126) U/L Troponin I (0.000-0.034) ng/mL Total Protein 6.8 (6.3-8.2) g/dL Albumin 4.2 (3.5-5.0) g/dL 02/04/19 Range/Units 18:32 WBC (3.8-10.6) k/uL RBC (4.30-5.90) m/uL Hgb (13.0-17.5) gm/dL Hct (39.0-53.0) % MCV (80.0-100.0) fL MCH (25.0-35.0) pg MCHC (31.0-37.0) g/dL RDW (11.5-15.5) % Plt Count (150-450) k/uL Neutrophils % % Lymphocytes % % Monocytes % % Eosinophils % % Basophils % % Neutrophils # (1.3-7.7) k/uL Lymphocytes # (1.0-4.8) k/uL Monocytes # (0-1.0) k/uL Eosinophils # (0-0.7) k/uL Basophils # (0-0.2) k/uL PT (9.0-12.0) sec INR (<1.2) APTT (22.0-30.0) sec Sodium (137-145) mmol/L Potassium (3.5-5.1) mmol/L Chloride (98-107) mmol/L Carbon Dioxide (22-30) mmol/L Anion Gap mmol/L BUN (9-20) mg/dL Creatinine (0.66-1.25) mg/dL Est GFR (CKD-EPI)AfAm (>60 ml/min/1.73 sqM) Est GFR (CKD-EPI)NonAf (>60 ml/min/1.73 sqM) Glucose (74-99) mg/dL Calcium (8.4-10.2) mg/dL Total Bilirubin (0.2-1.3) mg/dL AST (17-59) U/L ALT (21-72) U/L Alkaline Phosphatase (38-126) U/L Troponin I <0.012 (0.000-0.034) ng/mL Total Protein (6.3-8.2) g/dL Albumin (3.5-5.0) g/dL Disposition Clinical Impression: COPD with acute exacerbation Disposition: ADMITTED IP TO THIS HOSP Referrals: Frankie Wall DO [Primary Care Provider] - 1-2 days Time of Disposition: 20:39
[2019-02-04 19:01] LABS: Basophils # (A) 0.1 k/uL (0-0.2); Basophils % (A) 1 %; Eosinophils # (A) 0.5 k/uL (0-0.7); Eosinophils % (A) 7 %; HCT 42.5 % (39.0-53.0); Lymphocytes # (A) 1.4 k/uL (1.0-4.8); Lymphocytes % (A) 18 %; MCH 33.3 pg (25.0-35.0); MCHC 35.2 g/dL (31.0-37.0); MCV 94.4 fL (80.0-100.0); Mean Platelet Volume 7.2; Monocytes # (A) 0.6 k/uL (0-1.0); Monocytes % (A) 8 %; Neutrophils # (A) 4.8 k/uL (1.3-7.7); Neutrophils % (A) 63 %; Platelet Count 242 k/uL (150-450); RDW 12.2 % (11.5-15.5); WBC 7.6 k/uL (3.8-10.6)
--- NOTE | 2019-02-04 19:04 | XR ---
EXAMINATION TYPE: XR chest 2V DATE OF EXAM: 02/04/2019 COMPARISON: Chest x-ray December 29, 2018 and older studies chest CT May 22, 2018.. HISTORY: Cough and shortness of breath TECHNIQUE: Frontal and lateral views of the chest are obtained. FINDINGS: Background chronic emphysematous and parenchymal fibrotic changes bilaterally redemonstrate d. There is no suspicious new focal air space opacity, pleural effusion, or pneumothorax seen. The c ardiac silhouette size remains within normal limits. The osseous structures are intact. IMPRESSION: Chronic emphysematous and parenchymal fibrotic changes without acute pulmonary process.
[2019-02-04 19:09] LABS: ALT 23 U/L (21-72); AST 24 U/L (17-59); African American GFR (CKD) >90 (>60 ml/min/1.73 sqM); Albumin 4.2 g/dL (3.5-5.0); Alkaline Phosphatase 68 U/L (38-126); Anion Gap 6 mmol/L; Blood Urea Nitrogen 14 mg/dL (9-20); Calcium 9.5 mg/dL (8.4-10.2); Carbon Dioxide 27 mmol/L (22-30); Chloride 102 mmol/L (98-107); Glucose 84 mg/dL (74-99); Non-African American GFR(CKD) 79 (>60 ml/min/1.73 sqM); Potassium 4.2 mmol/L (3.5-5.1); Sodium 135 mmol/L (137-145); Total Bilirubin 0.6 mg/dL (0.2-1.3); Total Protein 6.8 g/dL (6.3-8.2)
[2019-02-04 19:11] LABS: Partial Thromboplastin Time 27.8 sec (22.0-30.0); Prothrombin Time 10.5 sec (9.0-12.0)
[2019-02-05] MEDS ORDERED: ACETAMINOPHEN TAB 500 MG TAB PO PRN (00:04)
[2019-02-05] MEDS: methylPREDNISolone SOD SUCCI 125 MG/2 ML VIAL IV SCH ×2 (01:21→05:35)
[2019-02-05 04:56] VITALS: BP 165/75; RESP 19; TEMP 98
[2019-02-05] MEDS: IPRATROPIUM-ALBUTEROL 3 ML NEB INHALATION PRN ×2 (05:49→11:40)
[2019-02-05] MEDS ORDERED: SYMBICORT 160-4.5 MCG INHALER INHALATION SCH (08:00)
[2019-02-05] MEDS ORDERED: FAMOTIDINE 20 MG TAB PO SCH (09:00)
[2019-02-05] MEDS ORDERED: APIXABAN 5 MG TAB PO SCH (09:00)
[2019-02-05] MEDS ORDERED: METOPROLOL TARTRATE 50 MG TAB PO SCH (09:00)
[2019-02-05] MEDS ORDERED: HYDROCORTISONE 1% CREAM 30 GM TUBE TOPICAL PRN (10:20)
[2019-02-05 11:43] VITALS: PULSE 88
--- NOTE | 2019-02-05 15:05 | P.HPIM ---
History of Present Illness 73-year-old pleasant gentleman came in with complaints of shortness of breath found to be wheezing and patient was admitted for COPD exacerbation patient was started on IV steroids and inhalational treatments patient's significant im proved patient wheezing significantly improved patient doesn't use any oxygen at home today morning he was is on 3 L which we were able to taper it off and upon ablation patient is not desaturating. Patient is complaining of dry cough without any sputum production per chest x-ray did not show pneumonia. Patient denied any fever chills. Patient can use to smoke extensive counseling regarding this was provided. Review of Systems REVIEW OF SYSTEMS: CONSTITUTIONAL: No fever, no malaise, no fatigue. HEENT: No recent visual problems or hearing problems. Denied any sore throat. CARDIOVASCULAR: No chest pain, orthopnea, PND, no palpitations, no syncope. PULMONARY: no hemoptysis. GASTROINTESTINAL: No diarrhea, no nausea, no vomiting, no abdominal pain. NEUROLOGICAL: No headaches, no weakness, no numbness. HEMATOLOGICAL: Denies any bleeding or petechiae. GENITOURINARY: Denies any burning micturition, frequency, or urgency. MUSCULOSKELETAL/RHEUMATOLOGICAL: Denies any joint pain, swelling, or any muscle pain. ENDOCRINE: Denies any polyuria or polydipsia. The rest of the 14-point review of systems is negative. Past Medical History Past Medical History: Atrial Fibrillation, COPD, Prostate Disorder Additional Past Medical History / Comment(s): Paroxysmal Afib, BPH History of Any Multi-Drug Resistant Organisms: None Reported Past Surgical History: No Surgical Hx Reported Additional Past Surgical History / Comment(s): Bilateral cataract removals-lens implants, colonoscpoy Past Anesthesia/Blood Transfusion Reactions: No Reported Reaction Additional Past Anesthesia/Blood Transfusion Reaction / Comment(s): Has never received any blood transfusions. Past Psychological History: No Psychological Hx Reported Additional Psychological History / Comment(s): Pt resides with his spouse and their son. They live in a downstairs apartment. Pt manages his own medications. He has a nebulizer.His son cooks and drives pt to [employer]. Smoking Status: Current every day smoker Past Alcohol Use History: None Reported Additional Past Alcohol Use History / Comment(s): Pt started smoking age [age]) got up to 5 ppd for many years then cut down to 3 ppd. Pt. states he currently smokes one pack a day Past Drug Use History: None Reported - Past Family History Mother Family Medical History: AFIB, Dementia Father Family Medical History: Myocardial Infarction ([place]) Additional Family Medical History / Comment(s): in his 70's [place] Medications and Allergies Home Medications Medication Instructions Recorded Confirmed Type Tamsulosin HCl [Flomax] 0.8 mg PO HS 03/24/18 02/04/19 History Budesonide-Formot 160-4.5 Mcg 2 puff INHALATION RT-BID 04/20/18 02/04/19 History [Symbicort 160-4.5 Mcg Inhaler] Apixaban [Eliquis] 5 mg PO BID 09/14/18 02/04/19 History Ipratropium-Albuterol Nebulize 3 ml INHALATION RT-Q4H 09/25/18 02/04/19 History [Duoneb 0.5 mg-3 mg/3 ml Soln] Albuterol Inhaler [Ventolin Hfa 1 - 2 puff INHALATION RT-Q6H PRN 11/24/18 02/04/19 History Inhaler] Acetaminophen Tab [Tylenol] 1,000 mg PO Q6H PRN 02/04/19 02/04/19 History Hydrocortisone Cream 1 applic TOPICAL BID PRN 02/04/19 02/04/19 History [Hydrocortisone 1% Cream] Metoprolol Tartrate [Lopressor] 50 mg PO BID 02/04/19 02/04/19 History Doxycycline Monohydrate [Monodox] 100 mg PO BID 3 Days #6 cap 02/05/19 Rx Ranitidine HCl [Zantac] 75 mg PO BID #30 tab 02/05/19 Rx predniSONE 10 mg PO DAILY #30 tab 02/05/19 Rx Allergies Allergy/AdvReac Type Severity Reaction Status Date / Time Iodinated Contrast Media Allergy Rash/Hives Verified 02/04/19 22:05 [Iodinated Contrast- Oral and IV Dye] latex Allergy Rash/Hives Verified 02/04/19 22:05 Physical Exam Vitals: Vital Signs Temp Pulse Pulse Resp BP BP Pulse Ox 02/05/19 11:52 88 02/05/19 11:40 88 02/05/19 11:34 02/05/19 05:57 97 02/05/19 05:49 97 02/05/19 04:56 98 F 100 19 165/75 95 02/04/19 22:36 97.8 F 97 18 117/68 96 02/04/19 22:10 20 02/04/19 21:00 95 24 110/84 97 02/04/19 20:00 98 26 H 125/91 95 02/04/19 19:36 82 02/04/19 19:33 82 26 H 106/74 98 02/04/19 19:17 84 02/04/19 19:12 18 02/04/19 19:07 97.4 F L 85 18 122/72 94 L 02/04/19 18:07 97.4 F L 85 18 132/86 94 L 02/04/19 18:04 97.4 F L 85 18 132/86 94 L Pulse Ox Pulse Ox Pulse Ox 02/05/19 11:52 02/05/19 11:40 02/05/19 11:34 95 96 95 02/05/19 05:57 02/05/19 05:49 02/05/19 04:56 02/04/19 22:36 02/04/19 22:10 02/04/19 21:00 02/04/19 20:00 02/04/19 19:36 02/04/19 19:33 02/04/19 19:17 02/04/19 19:12 02/04/19 19:07 02/04/19 18:07 02/04/19 18:04 Intake and Output 02/05/19 02/05/19 02/05/19 06:59 14:59 22:59 Intake Total 480 Balance 480 Intake: Oral 480 Other: # Voids 3 PHYSICAL EXAMINATION: GENERAL: The patient is alert and oriented x3, not in any acute distress. Well developed, well nourished. HEENT: Pupils are round and equally reacting to light. EOMI. No scleral icterus. No conjunctival pallor. Normocephalic, atraumatic. No pharyngeal erythema. No thyromegaly. CARDIOVASCULAR: S1 and S2 present. No murmurs, rubs, or gallops. PULMONARY: Decreased air entry with the. Minimal wheezing on exam ABDOMEN: Soft, nontender, nondistended, normoactive bowel sounds. No palpable organomegaly. MUSCULOSKELETAL: No joint swelling or deformity. EXTREMITIES: No cyanosis, clubbing, or pedal edema. NEUROLOGICAL: Gross neurological examination did not reveal any focal deficits. SKIN: No rashes. Results CBC & Chem 7: 02/04/19 18:32 02/04/19 18:32 Labs: Abnormal Lab Results - Last 24 Hours (Table) 02/04/19 Range/Units 18:32 Sodium 135 L (137-145) mmol/L Thrombosis Risk Factor Assmnt - Choose All That Apply Any of the Below Risk Factors Present?: Yes Each Factor Represents 1 point: Abnormal pulmonary function (COPD), Obesity (BMI >25) Other Risk Factors: Yes Each Risk Factor Represents 2 Points: Age 61-74 years Thrombosis Risk Factor Assessment Total Risk Factor Score: 4 Thrombosis Risk Factor Assessment Level: Moderate Risk Assessment and Plan Plan: Acute hypercapnic respiratory failure secondary to COPD exacerbation: Symptoms improved quickly with the systemic steroids patient will be discharged on oral steroids and she will continue his albuterol ipratropium and will be discharged today patient will be discharged on doxycycline Momence- -Atrial fibrillation: Patient is presently sinus rhythm patient probably has paroxysmal A. fib patient is on anticoagulation with Eliquis which will be resumed and continued -benign prostatic hypertrophy -Continued nicotine use: Counseling was provided
--- NOTE | 2019-02-05 15:05 | P.DS ---
Providers Date of admission: 02/04/19 20:42 Attending physician: Augusta Paz Consults: 02/04/19 20:41 Consult Physician Routine Consulting Provider: Flakita Arvizu Reason/Comments: COPD Do you want consulting provider notified?: Yes [facility] care physician[facility] [place] [facility] Course: Please refer to my history of present illness for further details Plan - Discharge Summary Discharge Rx Participant: No New Discharge Prescriptions: New Doxycycline Monohydrate [Monodox] 100 mg PO BID 3 Days #6 cap predniSONE 10 mg PO DAILY #30 tab Ranitidine HCl [Zantac] 75 mg PO BID #30 tab Continue Tamsulosin HCl [Flomax] 0.8 mg PO HS Budesonide-Formot 160-4.5 Mcg [Symbicort 160-4.5 Mcg Inhaler] 2 puff INHALATION RT-BID Apixaban [Eliquis] 5 mg PO BID Ipratropium-Albuterol Nebulize [Duoneb 0.5 mg-3 mg/3 ml Soln] 3 ml INHALATION RT-Q4H Albuterol Inhaler [Ventolin Hfa Inhaler] 1 - 2 puff INHALATION RT-Q6H PRN PRN Reason: Shortness Of Breath Acetaminophen Tab [Tylenol] 1,000 mg PO Q6H PRN PRN Reason: Pain Hydrocortisone Cream [Hydrocortisone 1% Cream] 1 applic TOPICAL BID PRN PRN Reason: Rash Metoprolol Tartrate [Lopressor] 50 mg PO BID Discontinued Famotidine [Pepcid] 20 mg PO BID #5 tablet Discharge Medication List Tamsulosin HCl [Flomax] 0.8 mg PO HS 03/24/18 [History] Budesonide-Formot 160-4.5 Mcg [Symbicort 160-4.5 Mcg Inhaler] 2 puff INHALATION RT-BID 04/20/18 [History] Apixaban [Eliquis] 5 mg PO BID 09/14/18 [History] Ipratropium-Albuterol Nebulize [Duoneb 0.5 mg-3 mg/3 ml Soln] 3 ml INHALATION RT-Q4H 09/25/18 [History] Albuterol Inhaler [Ventolin Hfa Inhaler] 1 - 2 puff INHALATION RT-Q6H PRN 11/24/18 [History] Acetaminophen Tab [Tylenol] 1,000 mg PO Q6H PRN 02/04/19 [History] Hydrocortisone Cream [Hydrocortisone 1% Cream] 1 applic TOPICAL BID PRN 02/04/19 [History] Metoprolol Tartrate [Lopressor] 50 mg PO BID 02/04/19 [History] Doxycycline Monohydrate [Monodox] 100 mg PO BID 3 Days #6 cap 02/05/19 [Rx] Ranitidine HCl [Zantac] 75 mg PO BID #30 tab 02/05/19 [Rx] predniSONE 10 mg PO DAILY #30 tab 02/05/19 [Rx] Follow up Appointment(s)/Referral(s): Frankie Wall, [Primary Care Provider] - 3 Days (Patient instructed to make his own appointment with Dr. Wall - office closed for lunch at time of discharge) Patient Instructions/Handouts: Ranitidine (By mouth), Doxycycline (By mouth), Prednisone (By mouth), COPD (Chronic Obstructive Pulmonary Disease) (DC) Activity/Diet/Wound Care/Special Instructions: Activity - limited until follow-up with physician Diet - as tolerated Discharge Disposition: HOME SELF-CARE
[2019-02-05] MEDS ORDERED: TAMSULOSIN 0.4 MG CAP.ER.24H PO SCH (21:00)
[2019-02-05] MEDS ORDERED: methylPREDNISolone SOD SUCCI 40 MG/ML 1 ML VIAL IV SCH (21:00)
== END 2019-02-05 12:44 | disposition home or self-care (01) | DRG 190 ==
LOC: EC 17:56 → 3NMEDONC 20:42
PROVIDERS: ADMIT Hospitalist; ATTEND Hospitalist
DX: J44.1 Chronic obstructive pulmonary disease with (acute) exacerbation (principal); J96.02 Acute respiratory failure with hypercapnia; F17.210 Nicotine dependence, cigarettes, uncomplicated; I48.0 Paroxysmal atrial fibrillation; N40.0 Benign prostatic hyperplasia without lower urinary tract symptoms; Z79.01 Long term (current) use of anticoagulants; Z79.51 Long term (current) use of inhaled steroids; Z79.899 Other long term (current) drug therapy; Z82.49 Family history of ischemic heart disease and other diseases of the circulatory system; Z98.42 Cataract extraction status, left eye; Z98.41 Cataract extraction status, right eye; Z96.1 Presence of intraocular lens; Z91.041 Radiographic dye allergy status; Z91.040 Latex allergy status
CPT/HCPCS: 36415; 71046; 80053; 84484; 85025; 85610; 85730; 93005; 94640; 96374; 99285

== ENCOUNTER 2019-02-27 04:58 | Emergency (ER) | payer MEDICARE ==
[2019-02-27 05:07] VITALS: TEMP 96.8
--- NOTE | 2019-02-27 05:35 | ED ---
Back Pain HPI - General Chief Complaint: Back Pain/Injury Stated Complaint: back pain Time Seen by Provider: 02/27/19 05:25 Source: patient Limitations: no limitations - History of Present Illness Initial Comments: Shawn is a 73-year-old gentleman with a history of severe COPD who presents the ER today for evaluation of a traumatic back pain. Patient reports that for the past 2 days he's been having some discomfort in his mid back. No associated fevers chills, nausea, vomiting no worsening cough no chest pain or shortness of breath which is worse at his baseline, no change in bowel or bladder habits. Patient just reports his back is aching to comfortable. - Related Data Home Medications Medication Instructions Recorded Confirmed Tamsulosin HCl [Flomax] 0.8 mg PO HS 03/24/18 02/04/19 Budesonide-Formot 160-4.5 Mcg 2 puff INHALATION RT-BID 04/20/18 02/04/19 [Symbicort 160-4.5 Mcg Inhaler] Apixaban [Eliquis] 5 mg PO BID 09/14/18 02/04/19 Ipratropium-Albuterol Nebulize 3 ml INHALATION RT-Q4H 09/25/18 02/04/19 [Duoneb 0.5 mg-3 mg/3 ml Soln] Albuterol Inhaler [Ventolin Hfa 1 - 2 puff INHALATION RT-Q6H PRN 11/24/18 02/04/19 Inhaler] Acetaminophen Tab [Tylenol] 1,000 mg PO Q6H PRN 02/04/19 02/04/19 Hydrocortisone Cream 1 applic TOPICAL BID PRN 02/04/19 02/04/19 [Hydrocortisone 1% Cream] Metoprolol Tartrate [Lopressor] 50 mg PO BID 02/04/19 02/04/19 Previous Rx's Medication Instructions Recorded Doxycycline Monohydrate [Monodox] 100 mg PO BID 3 Days #6 cap 02/05/19 Ranitidine HCl [Zantac] 75 mg PO BID #30 tab 02/05/19 predniSONE 10 mg PO DAILY #30 tab 02/05/19 Allergies Allergy/AdvReac Type Severity Reaction Status Date / Time Iodinated Contrast Media Allergy Rash/Hives Verified 02/27/19 05:07 [Iodinated Contrast- Oral and IV Dye] latex Allergy Rash/Hives Verified 02/27/19 05:07 Review of Systems ROS Statement: Those systems with pertinent positive or pertinent negative responses have been documented in the HPI. ROS Other: All systems not noted in ROS Statement are negative. Past Medical History Past Medical History: Atrial Fibrillation, COPD, Prostate Disorder Additional Past Medical History / Comment(s): Paroxysmal Afib, BPH History of Any Multi-Drug Resistant Organisms: None Reported Past Surgical History: No Surgical Hx Reported Additional Past Surgical History / Comment(s): Bilateral cataract removals-lens implants, colonoscpoy Past Anesthesia/Blood Transfusion Reactions: No Reported Reaction Additional Past Anesthesia/Blood Transfusion Reaction / Comment(s): Has never received any blood transfusions. Past Psychological History: No Psychological Hx Reported Smoking Status: Current every day smoker Past Alcohol Use History: None Reported Past Drug Use History: None Reported - Past Family History Mother Family Medical History: AFIB, Dementia Father Family Medical History: Myocardial Infarction ([place]) Additional Family Medical History / Comment(s): in his 70's [place] General Exam - General Exam Comments Initial Comments: Physical Exam GENERAL: Patient is well-developed and well-nourished. Patient is nontoxic and well-hydrated and is in no distress. HENT: Normocephalic, Atraumatic. EYES: PERRL, EOMI PULMONARY: Wheezing in all lung me[place] CARDIOVASCULAR: Tachycardic, regular ABDOMEN: Soft and nontender with normal bowel sounds. SKIN: Skin is clear with no lesions or rashes and otherwise unremarkable. : Deferred NEUROLOGIC: Patient is alert and oriented x3. Moving all extremities spontaneously Normal gait MUSCULOSKELETAL: Normal extremities with adequate strength and full range of motion. No lower extremity swelling or edema. No calf tenderness. Tenderness palpation paraspinal cells in the lower thoracic region mild bony tenderness to palpation of the lower thoracic spine in the midline PSYCHIATRIC: Normal psychiatric evaluation. Limitations: no limitations Course Vital Signs 02/27/19 05:05 Temperature 96.8 F L Pulse Rate 109 H Respiratory 28 H Rate Blood Pressure 128/77 O2 Sat by Pulse 91 L Oximetry Medical Decision Making - Medical Decision Making The patient was seen and evaluated upon arrival to the emergency department this is 73-year-old gentleman with severe COPD who arrives tachycardic and tachypneic however he was smoking a cigarette upon walking into the emergency department. He has no complaints of palpitations or shortness of breath any worse than his baseline. Patient was 2 days of atraumatic mid back pain. No obvious injuries does have some bony tenderness and paraspinal tenderness. X-rays were obtained and revealed chronic thoracic compression fractures. Nothing acute. No acute findings on chest x-ray. Results were discussed with the patient was treated with IM morphine and reported improvement in his pain was controlled plan for discharge home and outpatient follow-up with orthopedics to discuss a possible brace. Disposition Clinical Impression: Compression fracture of thoracic spine, non-traumatic Disposition: HOME SELF-CARE Condition: Stable Additional Instructions: You have compression fractures in your spine, they do not appear worse than on previous xrays You need to follow up with an orthopedic or spine surgeon for further management Return to ER for any worsening or if you develop any weakness in your legs, problems walking, urinating or having bowel movements or develop any new or concerning symptoms Is patient prescribed a controlled substance at d/c from ED?: No Referrals: Frankie Wall DO [Primary Care Provider] - 1-2 days Samreen Davis DO [Doctor of Osteopathic Medicine] - 1-2 days
--- NOTE | 2019-02-27 05:57 | XR ---
EXAMINATION TYPE: XR chest 2V DATE OF EXAM: 02/27/2019 COMPARISON: 02/04/2019 HISTORY: Short of breath TECHNIQUE: 2 views FINDINGS: There is some coarsening of interstitial markings. Heart size is normal. There is no pleura l effusion. There is no heart failure. Bony thorax is intact. IMPRESSION: Mild pulmonary fibrosis. No heart failure. No change compared to last exam.
--- NOTE | 2019-02-27 06:10 | XR ---
EXAMINATION TYPE: XR thoracic spine 2V DATE OF EXAM: 02/27/2019 COMPARISON: Chest x-ray 02/04/2019 HISTORY: Back pain TECHNIQUE: 3 views FINDINGS: Vertebra have normal alignment. Posterior elements are intact. There is no paraspinal mass. There is anterior wedging of T9 and T8 up to 20%. There is slight wedging of T7 and T12. IMPRESSION: Thoracic mild compression fractures probably not significantly different than last exam.
--- NOTE | 2019-02-27 06:16 | XR ---
EXAMINATION TYPE: XR lumbar spine 2 or 3V DATE OF EXAM: 02/27/2019 COMPARISON: NONE HISTORY: Back pain TECHNIQUE: 3 views FINDINGS: There is a mild lumbar dextroscoliosis. There is some degenerative disc space narrowing thr oughout the lumbar spine. There is no compression fracture. Posterior elements are intact. Sacroiliac joints are intact. IMPRESSION: Spondylotic changes. Mild dextroscoliosis. No fracture seen.
[2019-02-27] MEDS ORDERED: ACET/COD 300 MG/30 MG STARTER PACK 6 TAB BTL PO STA (06:29)
[2019-02-27] MEDS ORDERED: MORPHINE SULFATE 4 MG/ML SYRINGE IM STA (06:31)
[2019-02-27 06:50] VITALS: BP 125/80; PULSE 100; RESP 18
== END 2019-02-27 06:58 | disposition home or self-care (01) ==
LOC: EC 04:58
DX: M48.54XA Collapsed vertebra, not elsewhere classified, thoracic region, initial encounter for fracture (principal); I48.0 Paroxysmal atrial fibrillation; J44.9 Chronic obstructive pulmonary disease, unspecified; F17.210 Nicotine dependence, cigarettes, uncomplicated; Z79.01 Long term (current) use of anticoagulants; Z79.51 Long term (current) use of inhaled steroids; Z79.899 Other long term (current) drug therapy; Z91.041 Radiographic dye allergy status; Z91.040 Latex allergy status
CPT/HCPCS: 72070; 72100; 71046; 99283; 96372; J2270

== ENCOUNTER 2019-02-28 21:42 | Inpatient (IN) | payer MEDICARE ==
[2019-02-28] MEDS ORDERED: IPRATROPIUM-ALBUTEROL 3 ML NEB INHALATION STA (22:24)
--- NOTE | 2019-02-28 22:24 | ED ---
SOB HPI - General Chief Complaint: Shortness of Breath Stated Complaint: KEERTHI Time Seen by Provider: 02/28/19 22:06 Source: patient Mode of arrival: wheelchair Limitations: no limitations - History of Present Illness Initial Comments: U[place]ano 73-year-old gentleman with severe COPD who presents the ER today for evaluation of shortness of breath. Patient reports his COPD his been acting up for while he was evaluated in the emergency department 2 days ago for back pain which is chronic secondary to compression fractures. At that time he was noted to have some wheezing and tachycardia but wasn't complaining of shortness of breath and reported he was at his baseline. Patient states that since that time he's had persistent shortness of breath and has developed nonproductive cough. This became concerning and prompted him to return to the emergency department. In addition patient states that the Tylenol 3 he was given for pain is not helping his chronic back pain. Patient states he has not had a flu vaccine ever in his life despite following with a interior design director for COPD he has refused vaccinations. - Related Data Home Medications Medication Instructions Recorded Confirmed Tamsulosin HCl [Flomax] 0.8 mg PO HS 03/24/18 02/04/19 Budesonide-Formot 160-4.5 Mcg 2 puff INHALATION RT-BID 04/20/18 02/04/19 [Symbicort 160-4.5 Mcg Inhaler] Apixaban [Eliquis] 5 mg PO BID 09/14/18 02/04/19 Ipratropium-Albuterol Nebulize 3 ml INHALATION RT-Q4H 09/25/18 02/04/19 [Duoneb 0.5 mg-3 mg/3 ml Soln] Albuterol Inhaler [Ventolin Hfa 1 - 2 puff INHALATION RT-Q6H PRN 11/24/18 02/04/19 Inhaler] Acetaminophen Tab [Tylenol] 1,000 mg PO Q6H PRN 02/04/19 02/04/19 Hydrocortisone Cream 1 applic TOPICAL BID PRN 02/04/19 02/04/19 [Hydrocortisone 1% Cream] Metoprolol Tartrate [Lopressor] 50 mg PO BID 02/04/19 02/04/19 Previous Rx's Medication Instructions Recorded Doxycycline Monohydrate [Monodox] 100 mg PO BID 3 Days #6 cap 02/05/19 Ranitidine HCl [Zantac] 75 mg PO BID #30 tab 02/05/19 predniSONE 10 mg PO DAILY #30 tab 02/05/19 Allergies Allergy/AdvReac Type Severity Reaction Status Date / Time Iodinated Contrast Media Allergy Rash/Hives Verified 02/28/19 21:44 [Iodinated Contrast- Oral and IV Dye] latex Allergy Rash/Hives Verified 02/28/19 21:44 Review of Systems ROS Statement: Those systems with pertinent positive or pertinent negative responses have been documented in the HPI. ROS Other: All systems not noted in ROS Statement are negative. Past Medical History Past Medical History: Atrial Fibrillation, COPD, Prostate Disorder Additional Past Medical History / Comment(s): Paroxysmal Afib, BPH History of Any Multi-Drug Resistant Organisms: None Reported Past Surgical History: No Surgical Hx Reported Additional Past Surgical History / Comment(s): Bilateral cataract removals-lens implants, colonoscpoy Past Anesthesia/Blood Transfusion Reactions: No Reported Reaction Additional Past Anesthesia/Blood Transfusion Reaction / Comment(s): Has never received any blood transfusions. Past Psychological History: No Psychological Hx Reported Smoking Status: Current every day smoker Past Alcohol Use History: None Reported Past Drug Use History: None Reported - Past Family History Mother Family Medical History: AFIB, Dementia Father Family Medical History: Myocardial Infarction ([place]) Additional Family Medical History / Comment(s): in his 70's [place] General Exam - General Exam Comments Initial Comments: Physical Exam GENERAL: Moderate respiratory distress HENT: Normocephalic, Atraumatic. EYES: PERRL, EOMI PULMONARY: Expiratory wheezing in all lung meyers tachypnea CARDIOVASCULAR: Tachycardic, regular ABDOMEN: Soft and nontender with normal bowel sounds. SKIN: Skin is dry and warm to the touch. : Deferred NEUROLOGIC: Patient is alert and oriented x3. Moving all extremities spontaneously MUSCULOSKELETAL: Normal extremities with adequate strength and full range of motion. No lower extremity swelling or edema. No calf tenderness. Kyphosis PSYCHIATRIC: Normal psychiatric evaluation. Limitations: no limitations Course Vital Signs 02/28/19 02/28/19 02/28/19 21:44 22:39 22:41 Temperature 97.8 F Pulse Rate 120 H 105 H Respiratory 28 H 24 Rate Blood Pressure 142/83 131/86 O2 Sat by Pulse 93 L 94 L 94 L Oximetry 02/28/19 02/28/1919 23:09 23:27 23:51 Temperature 98.4 F Pulse Rate 100 98 101 H Respiratory 18 14 Rate Blood Pressure 111/77 O2 Sat by Pulse 93 L Oximetry Medical Decision Making - Medical Decision Making Patient was seen and evaluated upon arrival to the emergency department, this is 73-year-old COPD patient presenting with tachycardia tachypnea and mild hypoxia. Labs and imaging including influenza swabs were obtained. Labs are unremarkable influenza is negative Section with no signs of pneumonia Considering the patient has advanced age, tachypnea tachycardia and hypoxia on arrival I do feel the patient would warrant admission to the hospital for [id number] breathing treatments supplement oxygen as needed and evaluation by pulmonology. Patient is agreeable. - Lab Data Result diagrams: 02/28/19 22:00 02/28/19 22:00 Lab Results 02/28/19 02/28/19 02/28/19 Range/Units 22:00 22:00 22:00 WBC 9.7 (3.8-10.6) k/uL RBC 4.66 (4.30-5.90) m/uL Hgb 15.2 (13.0-17.5) gm/dL Hct 43.9 (39.0-53.0) % MCV 94.1 (80.0-100.0) fL MCH 32.7 (25.0-35.0) pg MCHC 34.7 (31.0-37.0) g/dL RDW 12.5 (11.5-15.5) % Plt Count 220 (150-450) k/uL Neutrophils % 73 % Lymphocytes % 10 % Monocytes % 7 % Eosinophils % 7 % Basophils % 0 % Neutrophils # 7.1 (1.3-7.7) k/uL Lymphocytes # 1.0 (1.0-4.8) k/uL Monocytes # 0.7 (0-1.0) k/uL Eosinophils # 0.7 (0-0.7) k/uL Basophils # 0.0 (0-0.2) k/uL PT (9.0-12.0) sec INR (<1.2) APTT (22.0-30.0) sec Sodium 137 (137-145) mmol/L Potassium 4.1 (3.5-5.1) mmol/L Chloride 102 (98-107) mmol/L Carbon Dioxide 25 (22-30) mmol/L Anion Gap 10 mmol/L BUN 16 (9-20) mg/dL Creatinine 0.90 (0.66-1.25) mg/dL Est GFR (CKD-EPI)AfAm >90 (>60 ml/min/1.73 sqM) Est GFR (CKD-EPI)NonAf 84 (>60 ml/min/1.73 sqM) Glucose 113 H (74-99) mg/dL Plasma Lactic Acid Santi 1.5 (0.7-2.0) mmol/L Calcium 10.1 (8.4-10.2) mg/dL Total Bilirubin 0.8 (0.2-1.3) mg/dL AST 26 (17-59) U/L ALT 19 (4-49) U/L Alkaline Phosphatase 74 (38-126) U/L Creatine Kinase 70 (55-170) U/L Troponin I (0.000-0.034) ng/mL Total Protein 7.0 (6.3-8.2) g/dL Albumin 4.3 (3.5-5.0) g/dL Influenza Type A RNA (Not Detectd) Influenza Type B (PCR) (Not Detectd) 02/28/19 02/28/19 02/28/19 Range/Units 22:00 22:00 22:20 WBC (3.8-10.6) k/uL RBC (4.30-5.90) m/uL Hgb (13.0-17.5) gm/dL Hct (39.0-53.0) % MCV (80.0-100.0) fL MCH (25.0-35.0) pg MCHC (31.0-37.0) g/dL RDW (11.5-15.5) % Plt Count (150-450) k/uL Neutrophils % % Lymphocytes % % Monocytes % % Eosinophils % % Basophils % % Neutrophils # (1.3-7.7) k/uL Lymphocytes # (1.0-4.8) k/uL Monocytes # (0-1.0) k/uL Eosinophils # (0-0.7) k/uL Basophils # (0-0.2) k/uL PT 10.3 (9.0-12.0) sec INR 1.0 (<1.2) APTT 27.3 (22.0-30.0) sec Sodium (137-145) mmol/L Potassium (3.5-5.1) mmol/L Chloride (98-107) mmol/L Carbon Dioxide (22-30) mmol/L Anion Gap mmol/L BUN (9-20) mg/dL Creatinine (0.66-1.25) mg/dL Est GFR (CKD-EPI)AfAm (>60 ml/min/1.73 sqM) Est GFR (CKD-EPI)NonAf (>60 ml/min/1.73 sqM) Glucose (74-99) mg/dL Plasma Lactic Acid Santi (0.7-2.0) mmol/L Calcium (8.4-10.2) mg/dL Total Bilirubin (0.2-1.3) mg/dL AST (17-59) U/L ALT (4-49) U/L Alkaline Phosphatase (38-126) U/L Creatine Kinase (55-170) U/L Troponin I <0.012 (0.000-0.034) ng/mL Total Protein (6.3-8.2) g/dL Albumin (3.5-5.0) g/dL Influenza Type A RNA Not Detected (Not Detectd) Influenza Type B (PCR) Not Detected (Not Detectd) - EKG Data -: EKG Interpreted by Me EKG Comments: EKG was obtained due to tachycardia, EKG was obtained at 2232, rate is 105 rhythm is sinus tach normal axis normal intervals, VA 160, QRS 76, QTC 452 there are no acute ST elevations or depressions no evidence of acute ischemia or infarction. Disposition Clinical Impression: COPD with acute exacerbation, Smoker Disposition: ADMITTED IP TO THIS HOSP Condition: Serious
[2019-02-28 22:37] LABS: Basophils % (A) 0 %; Eosinophils # (A) 0.7 k/uL (0-0.7); Eosinophils % (A) 7 %; HCT 43.9 % (39.0-53.0); HGB 15.2 gm/dL (13.0-17.5); Lymphocytes % (A) 10 %; MCH 32.7 pg (25.0-35.0); MCHC 34.7 g/dL (31.0-37.0); MCV 94.1 fL (80.0-100.0); Mean Platelet Volume 7.8; Monocytes # (A) 0.7 k/uL (0-1.0); Monocytes % (A) 7 %; Neutrophils # (A) 7.1 k/uL (1.3-7.7); Neutrophils % (A) 73 %; Platelet Count 220 k/uL (150-450); RBC 4.66 m/uL (4.30-5.90); RDW 12.5 % (11.5-15.5); WBC 9.7 k/uL (3.8-10.6)
[2019-02-28 22:49] LABS: ALT 19 U/L (4-49); AST 26 U/L (17-59); African American GFR (CKD) >90 (>60 ml/min/1.73 sqM); Albumin 4.3 g/dL (3.5-5.0); Alkaline Phosphatase 74 U/L (38-126); Anion Gap 10 mmol/L; Blood Urea Nitrogen 16 mg/dL (9-20); Calcium 10.1 mg/dL (8.4-10.2); Carbon Dioxide 25 mmol/L (22-30); Chloride 102 mmol/L (98-107); Creatine Kinase 70 U/L (55-170); Glucose 113 mg/dL (74-99); Non-African American GFR(CKD) 84 (>60 ml/min/1.73 sqM); Potassium 4.1 mmol/L (3.5-5.1); Sodium 137 mmol/L (137-145); Total Bilirubin 0.8 mg/dL (0.2-1.3)
[2019-02-28 22:53] LABS: Partial Thromboplastin Time 27.3 sec (22.0-30.0); Prothrombin Time 10.3 sec (9.0-12.0)
[2019-02-28] MEDS ORDERED: methylPREDNISolone SOD SUCCI 125 MG/2 ML VIAL IV STA (23:23)
[2019-02-28] MEDS ORDERED: MORPHINE SULFATE 4 MG/ML SYRINGE IVP STA (23:24)
[2019-02-28] MEDS ORDERED: MORPHINE SULFATE 4 MG/ML SYRINGE IVP PRN (23:25)
--- NOTE | 2019-03-01 00:36 | XR ---
EXAMINATION TYPE: XR chest 2V DATE OF EXAM: 03/01/2019 COMPARISON: 02/27/2019 HISTORY: COPD TECHNIQUE: 2 views FINDINGS: There is coarse interstitial density in the lungs. Heart size is normal. Thoracic aorta is atheromatous. There is no pleural effusion. IMPRESSION: Pulmonary interstitial fibrotic changes. No change compared to old exam. Normal heart.
[2019-03-01 07:20] LABS: Glucose,Whole Blood 158 mg/dL (75-99)
[2019-03-01] MEDS: IPRATROPIUM-ALBUTEROL 3 ML NEB INHALATION PRN ×4 (07:42→21:40)
--- NOTE | 2019-03-01 08:20 | P.HPIM ---
History of Present Illness This is a pleasant 73 years old male with past medical history of COPD, atrial fibrillation, benign prostatic hypertrophy presents because of dyspnea and low back pain. For the last 2 days patient has been having progressive shortness of breath with wide clear phlegm and cough. No blood or hemoptysis. No chest pain. Also patient was complaining of from low back pain about 2-3 days duration with no radiculopathy, no numbness or weakness in his lower extremity actually he is getting up" this is normal. He has no saddle anesthesia. He controls his urine and bowel movement. However he has some dribbling probably related to his BPH Patient smokes about 1 pack per day with no alcohol or illicit tracts. Patient is counseled he wants to quit but he refuses nicotine patch He is slightly tachycardic and his saturating 94% and 2 L oxygen via nasal cannula. Labs including CBC, INR, BMP, liver enzymes were unremarkable. Troponin is negative. Influenza is negative.. Chest x-ray showed chronic interstitial fibrotic changes with no acute process. EKG showingl sinus tachycardia at [address]-T changes Review of Systems CONSTITUTIONAL: No fever, no malaise, no fatigue. HEENT: No recent visual problems or hearing problems. Denied any sore throat. CARDIOVASCULAR: No orthopnea, PND, no palpitations, no syncope. PULMONARY: No shortness of breath, no cough, no hemoptysis. GASTROINTESTINAL: No diarrhea, no nausea, no vomiting, no abdominal pain. Normoactive bowel sounds. NEUROLOGICAL: No headaches, no weakness, no numbness. HEMATOLOGICAL: Denies any bleeding or petechiae. GENITOURINARY: Denies any burning micturition, frequency, or urgency. MUSCULOSKELETAL/RHEUMATOLOGICAL: Denies any joint pain, swelling, or any muscle pain. ENDOCRINE: Denies any polyuria or polydipsia. Past Medical History Past Medical History: Atrial Fibrillation, COPD, Prostate Disorder Additional Past Medical History / Comment(s): Paroxysmal Afib, BPH History of Any Multi-Drug Resistant Organisms: None Reported Past Surgical History: No Surgical Hx Reported Additional Past Surgical History / Comment(s): Bilateral cataract removals-lens implants, colonoscpoy Past Anesthesia/Blood Transfusion Reactions: No Reported Reaction Additional Past Anesthesia/Blood Transfusion Reaction / Comment(s): Has never received any blood transfusions. Past Psychological History: No Psychological Hx Reported Smoking Status: Current every day smoker Past Alcohol Use History: None Reported Past Drug Use History: None Reported - Past Family History Mother Family Medical History: AFIB, Dementia Father Family Medical History: Myocardial Infarction ([place]) Additional Family Medical History / Comment(s): in his 70's [place] Medications and Allergies Home Medications Medication Instructions Recorded Confirmed Type Tamsulosin HCl [Flomax] 0.8 mg PO HS 03/24/18 02/04/19 History Budesonide-Formot 160-4.5 Mcg 2 puff INHALATION RT-BID 04/20/18 02/04/19 History [Symbicort 160-4.5 Mcg Inhaler] Apixaban [Eliquis] 5 mg PO BID 09/14/18 02/04/19 History Ipratropium-Albuterol Nebulize 3 ml INHALATION RT-Q4H 09/25/18 02/04/19 History [Duoneb 0.5 mg-3 mg/3 ml Soln] Albuterol Inhaler [Ventolin Hfa 1 - 2 puff INHALATION RT-Q6H PRN 11/24/18 02/04/19 History Inhaler] Acetaminophen Tab [Tylenol] 1,000 mg PO Q6H PRN 02/04/19 02/04/19 History Hydrocortisone Cream 1 applic TOPICAL BID PRN 02/04/19 02/04/19 History [Hydrocortisone 1% Cream] Metoprolol Tartrate [Lopressor] 50 mg PO BID 02/04/19 02/04/19 History Doxycycline Monohydrate [Monodox] 100 mg PO BID 3 Days #6 cap 02/05/19 Rx Ranitidine HCl [Zantac] 75 mg PO BID #30 tab 02/05/19 Rx predniSONE 10 mg PO DAILY #30 tab 02/05/19 Rx Allergies Allergy/AdvReac Type Severity Reaction Status Date / Time Iodinated Contrast Media Allergy Rash/Hives Verified 02/28/19 21:44 [Iodinated Contrast- Oral and IV Dye] latex Allergy Rash/Hives Verified 02/28/19 21:44 Physical Exam Vitals: Vital Signs Temp Pulse Pulse Resp BP BP Pulse Ox 03/01/19 07:52 92 03/01/19 07:42 92 03/01/19 07:00 97.8 F 98 103 H 20 122/84 129/78 94 L 03/01/19 01:59 98.1 F 86 18 133/86 91 L 02/28/19 23:51 98.4 F 101 H 14 111/77 93 L 02/28/19 23:27 98 02/28/19 23:09 100 18 02/28/19 22:41 94 L 02/28/19 22:39 105 H 24 131/86 94 L 02/28/19 21:44 97.8 F 120 H 28 H 142/83 93 L Intake and Output 02/28/19 03/01/19 03/01/19 22:59 06:59 14:59 Other: Weight 72.575 kg GENERAL: The patient is alert and oriented x3, not in any acute distress. Well developed, well nourished. HEENT: Pupils are round and equally reacting to light. EOMI. No scleral icterus. No conjunctival pallor. Normocephalic, atraumatic. No pharyngeal erythema. No thyromegaly. CARDIOVASCULAR: S1 and S2 present. No murmurs, rubs, or gallops. -PULMONARY: Chest is clear to auscultation, bilateral expiratory wheezing ABDOMEN: Soft, nontender, nondistended, normoactive bowel sounds. No palpable organomegaly. MUSCULOSKELETAL: No joint swelling or deformity. EXTREMITIES: No cyanosis, clubbing, or pedal edema. NEUROLOGICAL: Gross neurological examination did not reveal any focal deficits. SKIN: No rashes. 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 Continue with steroids, bronchodilators and oxygen. Coronary consult pulmonary. We'll check x-ray of the thoracolumbar spine Labs and medication were reviewed.. Continue same treatment. Continue with symptomatic treatment. Resume home medication. Monitor lytes and vitals. DVT and GI prophylaxis. Further recommendations of the clinical course of the patient DVT prophylaxis: Subcutaneous heparin GI Prophylaxis: Pepcid PT/OT: Pending Prognosis is guarded
[2019-03-01] MEDS: methylPREDNISolone SOD SUCCI 125 MG/2 ML VIAL IV SCH ×3 (08:57→18:03)
[2019-03-01] MEDS: AZITHROMYCIN 500 MG TAB PO SCH (08:57)
[2019-03-01] MEDS: FAMOTIDINE 20 MG/2 ML VIAL IV SCH ×2 (08:58→21:52)
[2019-03-01] MEDS ORDERED: HEPARIN SODIUM,PORCINE 5,000 UNIT/ML 1 ML VIAL SQ SCH (09:00)
[2019-03-01] MEDS ORDERED: predniSONE 20 MG TAB PO SCH (09:00)
--- NOTE | 2019-03-01 09:05 | XR ---
EXAM TYPE: LUMBAR SPINE X RAY SERIES COMPARISON: NONE HISTORY: Pain TECHNIQUE: 3 views are submitted. FINDINGS: Alignment is anatomic. The pedicles are intact. The transverse processes are intact. There is a sc oliotic curvature with diffuse osteopenia and multilevel severe degenerative disc disease and facet a rthropathy. Vascular calcifications are noted. Stomach appears distended and there are prominent pedro pablo l loops correlate clinically. IMPRESSION: 1. Multilevel severe degenerative disc disease and facet arthropathy. 2. There is gastric distention and prominent small bowel loops within the visualized portion of the a bdomen correlate clinically
--- NOTE | 2019-03-01 09:07 | XR ---
EXAMINATION TYPE: XR thoracic spine 2V DATE OF EXAM: 03/01/2019 COMPARISON: 02/27/2019 HISTORY: Pain Alignment is anatomic. There is anterior wedging of T9 and T8 up to 20%. There is slight wedging of T7 and T12. Vertebral body height and disc interspaces are maintained. There is multilevel degenera tive disc disease. IMPRESSION: 1. Stable compression fractures. 2. Multilevel degenerative disc disease.
[2019-03-01] MEDS ORDERED: HYDROCORTISONE 1% CREAM 30 GM TUBE TOPICAL PRN (11:26)
[2019-03-01 12:06] LABS: Glucose,Whole Blood 207 mg/dL (75-99)
[2019-03-01] MEDS: METOPROLOL TARTRATE 50 MG TAB PO SCH ×2 (12:11→21:52)
[2019-03-01 12:18] LABS: Appearance,Urine Clear (Clear); Bilirubin,Urine Negative (Negative); Blood,Urine Negative (Negative); Color,Urine Yellow; Glucose,Urine (UA) Negative (Negative); Ketones,Urine 1+ (Negative); Leukocyte Esterase,Urine Negative (Negative); Nitrite,Urine Negative (Negative); PH, Urine 5.5 (5.0-8.0); Protein,Urine Trace (Negative); Specific Gravity,Urine 1.031 (1.001-1.035)
[2019-03-01] MEDS: INSULIN ASPART (NovoLOG) 100 UNIT/ML VIAL SQ SCH ×3 (13:04→21:52)
[2019-03-01 17:14] LABS: Glucose,Whole Blood 176 mg/dL (75-99)
[2019-03-01 21:27] LABS: Glucose,Whole Blood 193 mg/dL (75-99)
[2019-03-01] MEDS: FORMOTEROL FUMARATE 20 MCG/2 ML NEBU INHALATION SCH (21:51)
[2019-03-01] MEDS: TAMSULOSIN 0.4 MG CAP.ER.24H PO SCH (21:52)
[2019-03-01] MEDS: APIXABAN 5 MG TAB PO SCH (21:52)
[2019-03-02] MEDS: IPRATROPIUM-ALBUTEROL 3 ML NEB INHALATION PRN ×4 (01:38→11:36)
[2019-03-02] MEDS: methylPREDNISolone SOD SUCCI 125 MG/2 ML VIAL IV SCH ×5 (06:06→23:20)
[2019-03-02 07:12] LABS: Glucose,Whole Blood 127 mg/dL (75-99)
[2019-03-02] MEDS: FORMOTEROL FUMARATE 20 MCG/2 ML NEBU INHALATION SCH ×2 (07:37→18:59)
[2019-03-02] MEDS: INSULIN ASPART (NovoLOG) 100 UNIT/ML VIAL SQ SCH ×4 (07:45→20:59)
--- NOTE | 2019-03-02 07:52 | P.PN ---
Subjective This is a pleasant 73 years old male with past medical history of COPD, atrial fibrillation, benign prostatic hypertrophy presents because of dyspnea and low back pain. For the last 2 days patient has been having progressive shortness of breath with wide clear phlegm and cough. No blood or hemoptysis. No chest pain. Also patient was complaining of from low back pain about 2-3 days duration with no radiculopathy, no numbness or weakness in his lower extremity actually he is getting up" this is normal. He has no saddle anesthesia. He controls his urine and bowel movement. However he has some dribbling probably related to his BPH Patient smokes about 1 pack per day with no alcohol or illicit tracts. Patient is counseled he wants to quit but he refuses nicotine patch He is slightly tachycardic and his saturating 94% and 2 L oxygen via nasal cannula. Labs including CBC, INR, BMP, liver enzymes were unremarkable. Troponin is negative. Influenza is negative.. Chest x-ray showed chronic interstitial fibrotic changes with no acute process. EKG showingl sinus tachycardia at [address]-T changes 03/02/2019 Patient feels better regarding his dyspnea is still short of breath especially when he walks he got some exertional dyspnea. His back pain is getting better and he has normal get up and go test. He denies nausea vomiting or abdominal pain that he states he had no bowel movement over the last 3 days, lumbar x-ray done yesterday which shows degenerative disc disease, also showed bowel distention so we put the patient nothing by mouth for now and ordered abdominal x-ray and he agrees. Still mildly tachycardic but afebrile. Vitals are good. Labs from today are pending Review of systems CONSTITUTIONAL: No fever, no malaise, no fatigue. HEENT: No recent visual problems or hearing problems. Denied any sore throat. CARDIOVASCULAR: No orthopnea, PND, no palpitations, no syncope. PULMONARY: no hemoptysis. GASTROINTESTINAL: No diarrhea, no nausea, no vomiting, no abdominal pain. Normoactive bowel sounds. NEUROLOGICAL: No headaches, no weakness, no numbness. HEMATOLOGICAL: Denies any bleeding or petechiae. GENITOURINARY: Denies any burning micturition, frequency, or urgency. MUSCULOSKELETAL/RHEUMATOLOGICAL: Denies any joint pain, swelling, or any muscle pain. ENDOCRINE: Denies any polyuria or polydipsia. Active Medications Generic Name Dose Route Start Last Admin Trade Name Freq PRN Reason Stop Dose Admin Acetaminophen 325 mg 03/01/19 08:18 Tylenol Tab PO Q6HR PRN Fever and/ or Mild Pain Albuterol/Ipratropium 3 ml 02/28/19 23:24 03/02/19 07:37 Duoneb 0.5 Mg-3 Mg/3 Ml Soln INHALATION 3 ml RT-Q4H PRN Administration Shortness Of Breath Or Wheezing Apixaban 5 mg 03/01/19 21:00 03/01/19 21:52 Eliquis PO 5 mg BID CHRISTIAN Administration Azithromycin 500 mg 03/01/19 09:00 03/01/19 08:57 Zithromax PO 03/06/19 09:01 500 mg DAILY CHRISTIAN Administration Famotidine 20 mg 03/01/19 09:00 03/01/19 21:52 Pepcid IV 20 mg Q12HR CHRISTIAN Administration Formoterol Fumarate 20 mcg 03/01/19 20:00 03/02/19 07:37 Perforomist INHALATION 20 mcg RT-BID CHRISTIAN Administration Hydrocortisone 1 applic 03/01/19 11:26 Hydrocortisone 1% Cream TOPICAL BID PRN Rash Insulin Aspart 0 unit 03/01/19 12:30 03/02/19 07:45 Novolog SQ Not Given [facility] Protocol Methylprednisolone Sodium Succinate 60 mg 03/01/19 08:30 03/02/19 06:06 Solu-Medrol IV 60 mg Q6HR CHRISTIAN Administration Metoprolol Tartrate 50 mg 03/01/19 11:30 03/01/19 21:52 Lopressor PO 50 mg BID CHRISTIAN Administration Morphine Sulfate 4 mg 02/28/19 23:25 Morphine Sulfate (Inj) IVP Q4H PRN Pain Tamsulosin HCl 0.8 mg 03/01/19 21:00 03/01/19 21:52 Flomax PO 0.8 mg HS CHRISTIAN Administration Objective - Vital Signs Vital signs: Vital Signs Temp 97.4 F L 03/02/19 05:10 Pulse 102 H 03/02/19 07:47 Resp 19 03/02/19 05:10 BP 115/71 03/02/19 05:10 Pulse Ox 90 L 03/02/19 05:10 Intake & Output 03/01/19 03/02/19 03/02/19 18:59 06:59 18:59 Output Total 325 Balance -325 Output: Urine 325 Other: Voiding Method Toilet # Voids 2 - Exam GENERAL: The patient is alert and oriented x3, not in any acute distress. Well developed, well nourished. HEENT: Pupils are round and equally reacting to light. EOMI. No scleral icterus. No conjunctival pallor. Normocephalic, atraumatic. No pharyngeal erythema. No thyromegaly. CARDIOVASCULAR: S1 and S2 present. No murmurs, rubs, or gallops. PULMONARY: Chest is clear to auscultation, no wheezing or crackles. ABDOMEN: Soft, nontender, nondistended, normoactive bowel sounds. No palpable organomegaly. MUSCULOSKELETAL: No joint swelling or deformity. EXTREMITIES: No cyanosis, clubbing, or pedal edema. NEUROLOGICAL: Gross neurological examination did not reveal any focal deficits. SKIN: No rashes. no petechiae. - Labs CBC & Chem 7: 02/28/19 22:00 02/28/19 22:00 Labs: Abnormal Lab Results - Last 24 Hours (Table) 03/01/19 03/01/19 03/01/19 Range/Units 09:15 11:55 17:06 POC Glucose (mg/dL) 207 H 176 H (75-99) mg/dL Urine Protein Trace H (Negative) Urine Ketones 1+ H (Negative) 03/01/19 03/02/19 Range/Units 21:21 07:06 POC Glucose (mg/dL) 193 H 127 H (75-99) mg/dL Urine Protein (Negative) Urine Ketones (Negative) Microbiology - Last 24 Hours (Table) 02/28/19 22:00 Blood Culture - Preliminary Blood No Growth after 24 hours Assessment and Plan Assessment: Acute COPD exacerbation Acute low back pain, improving Constipation for 2-3 days Nicotine dependence Paroxysmal atrial fibrillation 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 Continue with steroids, bronchodilators and oxygen. Follow-up recommendation by pulmonary. Continue with symptomatic treatment for back pain, we'll check abdominal x-ray and nothing by mouth Labs and medication were reviewed.. Continue same treatment. Continue with symptomatic treatment. Resume home medication. Monitor lytes and vitals. DVT and GI prophylaxis. Further recommendations of the clinical course of the patient DVT prophylaxis: Subcutaneous heparin GI Prophylaxis: Pepcid PT/OT: Pending Prognosis is guarded
--- NOTE | 2019-03-02 08:06 | XR ---
EXAMINATION TYPE: XR abdomen 2V DATE OF EXAM: 03/02/2019 7:58 AM CLINICAL HISTORY: Abdominal pain constipation TECHNIQUE: Single supine KUB image of the abdomen is obtained. COMPARISON: None. FINDINGS: Large degree colonic fecal stasis is seen in the right hemicolon with moderate throughout t he remainder of the colon. Very mildly prominent loops of small bowel are seen measuring up to 3.3 cm . Dextroscoliosis of the lumbar spine is present with moderate degenerative change and diffuse osseou s demineralization. Lung bases are overall well aerated. No suspicious calcifications in the abdomen or pelvis. IMPRESSION: Severe colonic fecal stasis with mildly dilated loops of small bowel, likely ileus.
[2019-03-02] MEDS: METOPROLOL TARTRATE 50 MG TAB PO SCH ×2 (08:54→20:59)
[2019-03-02] MEDS: APIXABAN 5 MG TAB PO SCH ×2 (08:54→20:59)
[2019-03-02] MEDS: FAMOTIDINE 20 MG/2 ML VIAL IV SCH (08:54)
[2019-03-02] MEDS: AZITHROMYCIN 500 MG TAB PO SCH (08:54)
[2019-03-02 09:32] LABS: African American GFR (CKD) >90 (>60 ml/min/1.73 sqM); Anion Gap 10 mmol/L; Blood Urea Nitrogen 24 mg/dL (9-20); Calcium 8.8 mg/dL (8.4-10.2); Carbon Dioxide 22 mmol/L (22-30); Chloride 100 mmol/L (98-107); Glucose 168 mg/dL (74-99); Non-African American GFR(CKD) 87 (>60 ml/min/1.73 sqM); Potassium 4.6 mmol/L (3.5-5.1); Sodium 132 mmol/L (137-145)
[2019-03-02 12:03] LABS: Glucose,Whole Blood 144 mg/dL (75-99)
[2019-03-02] MEDS: IPRATROPIUM-ALBUTEROL 3 ML NEB INHALATION SCH ×3 (12:16→18:58)
[2019-03-02] MEDS ORDERED: MAGNESIUM HYDROXIDE 2,400 MG/10 ML CUP PO PRN (16:49)
[2019-03-02 17:03] LABS: Glucose,Whole Blood 144 mg/dL (75-99)
[2019-03-02] MEDS: BUDESONIDE 1 MG/2 ML NEBU INHALATION SCH (18:59)
[2019-03-02 20:53] LABS: Glucose,Whole Blood 139 mg/dL (75-99)
[2019-03-02] MEDS: FAMOTIDINE 20 MG TAB PO SCH (20:59)
[2019-03-02] MEDS: TAMSULOSIN 0.4 MG CAP.ER.24H PO SCH (20:59)
[2019-03-02] MEDS ORDERED: SENNOSIDES 8.6 MG TAB PO SCH (21:00)
--- NOTE | 2019-03-02 21:56 | CONS ---
CONSULTATION DATE OF CONSULTATION: March 02, 2019 REASON FOR CONSULTATION: Shortness of breath. HISTORY OF PRESENT ILLNESS: This is a 73-year-old gentleman, well known to our service. He was seen here multiple times in the hospital. Unfortunately, he has not made it to the office as yet. He apparently has a history of severe COPD. He presents to the emergency room on February 28 complaining of increasing shortness of breath for about 2 days prior to admission. In addition, he apparently was in the emergency room a couple days prior to his most recent admission complaining of back pain and apparently the pain was described to chronic compression fractures. He is wheezing. He has chest tightness. He is coughing but not producing much or any phlegm. The patient denied any chest pain or pressure. There was no fever or chills. Again, there was no production when he coughed. There was no hemoptysis. He denies any nausea, vomiting, diarrhea. Denies any genitourinary complaints. His last admission was back in December at which time I saw him. He has been smoking for more than 60 years. He apparently started smoking when he was 13. MEDICATIONS: Reviewed. He is on Flomax, Symbicort, Eliquis, DuoNeb albuterol inhaler, Tylenol, hydrocortisone cream, Lopressor, doxycycline, ranitidine, and prednisone. ALLERGIES: INCLUDE IVP DYE AND LATEX. PAST MEDICAL HISTORY: Positive for COPD, paroxysmal atrial fibrillation, and BPH. He also apparently has a history of cataracts and has had cataract surgery. Other than that, the only other surgical history includes a colonoscopy. SOCIAL HISTORY: Positive for ongoing tobacco use. He has been smoking since age of 13. He denies any alcohol use or illicit drug use. FAMILY HISTORY: Positive for mother with atrial fibrillation and dementia and a father with myocardial infarction. REVIEW OF SYSTEMS: CONSTITUTIONAL negative. NEUROLOGIC negative. HEENT negative. CARDIOVASCULAR negative. PULMONARY: Shortness of breath, chest tightness, wheezing, nonproductive cough. GI negative. negative. RHEUMATOLOGIC: Back pain. IMMUNOLOGIC negative. ENDOCRINOLOGICAL: Negative. DERMATOLOGIC negative. PHYSICAL EXAMINATION: VITAL SIGNS: Current vital signs are reviewed. His temperature is 97.5. Heart rate 100. Respiratory rate 18, blood pressure 123/72 mean 89 and room air saturation 92%. He appears mildly dyspneic and tachypneic. No conversational dyspnea. No audible wheezing. No use of accessory muscles. HEENT examination is grossly unremarkable. Not currently wearing any oxygen. NECK: Supple. Full range of motion. No adenopathy or thyromegaly. Neck veins are flat. CARDIOVASCULAR examination reveals regular rhythm and rate. S1, S2 normal. No S3, S4, or murmur. Heart rate 100. LUNGS: Reveal inspiratory and expiratory wheezes and rhonchi. There is prolongation on forced maneuver. He wheezes on forced maneuver. There is prolongation on forced maneuver. Breath sounds equal bilaterally but diminished bilaterally. ABDOMEN: Soft. Bowel sounds are heard. No masses or tenderness. EXTREMITIES are intact. No cyanosis, clubbing, or edema. SKIN: Without rash. NEUROLOGIC: Examination is brief but nonfocal. Chest x-ray done on the , shows some mild interstitial fibrotic changes. No change compared to the old exam. LAB DATA: Reviewed. White count 9.7, hemoglobin 15.2, hematocrit 43.9, platelet count 220,000. PT/INR and PTT all normal. Sodium 132, potassium 4.6, chloride 100, CO2 22, anion gap 10. BUN and creatinine were 24 and 0.84. The rest of the comprehensive metabolic profile looks good. Troponin was negative. Urine was negative. Influenza studies were negative. Current microbiologic studies including blood cultures are negative. Medications are reviewed. ASSESSMENT: 1. Chronic obstructive pulmonary disease exacerbation, likely not complicated by infection. 2. History of ongoing tobacco use with nicotine addiction since age of 13. 3. Previous admissions for chronic obstructive pulmonary disease exacerbation. 4. Benign prostatic hypertrophy. 5. History of paroxysmal atrial fibrillation. 6. History of bilateral cataracts status post surgery. PLAN: The patient is counseled about the importance of smoking cessation. We will make sure that he follows up with one of us in the office for pulmonary function testing. He did have a card in his wallet to see Dr. Saez our nurse practitioner sometime in May. We will obviously move that up. His medications are reviewed. We will make sure he is on appropriate medications including short-acting beta agonists, short-acting muscarinic antagonist, long-acting beta agonist, inhaled corticosteroids, systemic corticosteroids and a short course of oral antibiotics. Additional recommendations and suggestions forthcoming. Prognosis is guarded. MMODL / IJN: [id number] /
[2019-03-03] MEDS: ACETAMINOPHEN TAB 325 MG TAB PO PRN (02:57)
[2019-03-03] MEDS: IPRATROPIUM-ALBUTEROL 3 ML NEB INHALATION PRN (03:38)
[2019-03-03] MEDS: methylPREDNISolone SOD SUCCI 125 MG/2 ML VIAL IV SCH ×4 (05:12→23:18)
[2019-03-03 07:16] LABS: Glucose,Whole Blood 115 mg/dL (75-99)
[2019-03-03] MEDS: INSULIN ASPART (NovoLOG) 100 UNIT/ML VIAL SQ SCH ×4 (07:29→21:18)
[2019-03-03] MEDS: IPRATROPIUM-ALBUTEROL 3 ML NEB INHALATION SCH ×4 (08:28→19:13)
[2019-03-03] MEDS: BUDESONIDE 1 MG/2 ML NEBU INHALATION SCH ×2 (08:28→19:13)
[2019-03-03] MEDS: FORMOTEROL FUMARATE 20 MCG/2 ML NEBU INHALATION SCH ×2 (08:28→19:13)
[2019-03-03] MEDS: FAMOTIDINE 20 MG TAB PO SCH ×2 (09:13→21:18)
[2019-03-03] MEDS: POLYETHYLENE GLYCOL 3350 17 GM POWD.PACK PO SCH (09:13)
[2019-03-03] MEDS: AZITHROMYCIN 500 MG TAB PO SCH (09:13)
[2019-03-03] MEDS: APIXABAN 5 MG TAB PO SCH ×2 (09:13→21:17)
[2019-03-03] MEDS: METOPROLOL TARTRATE 50 MG TAB PO SCH ×2 (09:13→21:18)
[2019-03-03 12:33] LABS: Glucose,Whole Blood 113 mg/dL (75-99)
[2019-03-03] MEDS: SENNOSIDES 8.6 MG TAB PO SCH ×2 (12:46→21:18)
--- NOTE | 2019-03-03 13:33 | P.PN ---
Subjective Progress Note Date: 03/03/19 Principal diagnosis: Acute exacerbation of chronic obstructive pulmonary disease On 03/03/2019 patient seen in follow-up in medical surgical floor. He is breathing easier, still sound bronchospastic on today's exam, + are stable, patient is on a combination of IV steroids, Zithromax, and nebulized bronchodilators, he is improving. No new labs today. Chest x-ray on admission showed pulmonary interstitial fibrotic changes, no acute changes. We'll continue current medical treatment, not quite ready for discharge Objective - Vital Signs Vital signs: Vital Signs Temp 97.4 F L 03/03/19 04:36 Pulse 94 03/03/19 12:08 Resp 18 03/03/19 04:36 BP 114/70 03/03/19 04:36 Pulse Ox 96 03/03/19 10:32 Intake & Output 03/02/19 03/03/19 03/03/19 18:59 06:59 18:59 Intake Total 1080 Balance 1080 Intake: Oral 1080 Other: Voiding Method Toilet Toilet # Voids 2 3 - Exam GENERAL EXAM: Alert, very pleasant, 73-year-old white male, the pulse ox of 96% on room air comfortable in no apparent distress. HEAD: Normocephalic/atraumatic. EYES: Normal reaction of pupils, equal size. Conjunctiva pink, sclera white. NOSE: Clear with pink turbinates. THROAT: No erythema or exudates. NECK: No masses, no JVD, no thyroid enlargement, no adenopathy. CHEST: No chest wall deformity. Symmetrical expansion. LUNGS: Equal air entry with diminished breath sounds, and diffuse wheezes CVS: Regular rate and rhythm, normal S1 and S2, no gallops, no murmurs, no rubs ABDOMEN: Soft, nontender. No hepatosplenomegaly, normal bowel sounds, no guarding or rigidity. EXTREMITIES: No clubbing, no edema, no cyanosis, 2+ pulses and upper and lower extremities. MUSCULOSKELETAL: Muscle strength and tone normal. SPINE: No scoliosis or deformity SKIN: No rashes CENTRAL NERVOUS SYSTEM: Alert and oriented -3. No focal deficits, tone is normal in all 4 extremities. PSYCHIATRIC: Alert and oriented -3. Appropriate affect. Intact judgment and insight. - Labs CBC & Chem 7: 02/28/19 22:00 03/02/19 08:38 Labs: Abnormal Lab Results - Last 24 Hours (Table) 03/02/19 03/02/19 03/03/19 Range/Units 16:32 20:49 07:11 POC Glucose (mg/dL) 144 H 139 H 115 H (75-99) mg/dL 03/03/19 Range/Units 12:23 POC Glucose (mg/dL) 113 H (75-99) mg/dL Microbiology - Last 24 Hours (Table) 02/28/19 22:00 Blood Culture - Preliminary Blood No Growth after 48 hours Assessment and Plan Plan: Assessment: #1. Acute exacerbation of chronic obstructive pulmonary disease #2. History of ongoing tobacco use with nicotine addiction since age of 13 #3. Previous admissions for chronic obstructive pulmonary disease exacerbation #4. Benign prostatic hypertrophy #5. History of paroxysmal atrial fibrillation #6. History of bilateral cataracts status post surgery Plan: Continue current medical treatment, continue IV steroids, nebulized bronchodilators and Zithromax, he is improving, not quite back to baseline, recommend another 24 hours of treatment, and reevaluation tomorrow I performed a history & physical examination of the patient and discussed their management with my nurse practitioner, Coleen Worley. I reviewed the nurse practitioner's note and agree with the documented findings and plan of care. Lung sounds are positive for diffuse wheezes throughout the lung meyers. The findings and the impression was discussed with the patient. I attest to the doc umentation by the nurse practitioner. Time with Patient: Less than 30
--- NOTE | 2019-03-03 15:39 | P.PN ---
Subjective This is a pleasant 73 years old male with past medical history of COPD, atrial fibrillation, benign prostatic hypertrophy presents because of dyspnea and low back pain. For the last 2 days patient has been having progressive shortness of breath with wide clear phlegm and cough. No blood or hemoptysis. No chest pain. Also patient was complaining of from low back pain about 2-3 days duration with no radiculopathy, no numbness or weakness in his lower extremity actually he is getting up" this is normal. He has no saddle anesthesia. He controls his urine and bowel movement. However he has some dribbling probably related to his BPH Patient smokes about 1 pack per day with no alcohol or illicit tracts. Patient is counseled he wants to quit but he refuses nicotine patch He is slightly tachycardic and his saturating 94% and 2 L oxygen via nasal cannula. Labs including CBC, INR, BMP, liver enzymes were unremarkable. Troponin is negative. Influenza is negative.. Chest x-ray showed chronic interstitial fibrotic changes with no acute process. EKG showingl sinus tachycardia at [address]-T changes 03/02/2019 Patient feels better regarding his dyspnea is still short of breath especially when he walks he got some exertional dyspnea. His back pain is getting better and he has normal get up and go test. He denies nausea vomiting or abdominal pain that he states he had no bowel movement over the last 3 days, lumbar x-ray done yesterday which shows degenerative disc disease, also showed bowel distention so we put the patient nothing by mouth for now and ordered abdominal x-ray and he agrees. Still mildly tachycardic but afebrile. Vitals are good. Labs from today are pending 03/03/2019 Patient still have decreased air entry in both lungs and he has expiratory wheezing. Although he's on room air now. [place] Counselor evaluated the patient and recommended to keep the patient in-house and continue with IV steroids and bronchodilators therapy. Vitals stable. Sugar controlled. His back pain is controlled however he still needs some pain medication. We added calcium/vitamin D. He is having bowel movement this morning, we increased his bowel regimen. Possible discharge in 24-48 hours was cleared by pulmonary service Objective - Vital Signs Vital signs: Vital Signs Temp 97.8 F 03/03/19 14:12 Pulse 90 12/31/19 15:31 Resp 20 03/03/19 14:12 BP 108/68 03/03/19 14:12 Pulse Ox 95 03/03/19 14:12 Intake & Output 03/02/19 03/03/19 03/03/19 18:59 06:59 18:59 Intake Total 1080 Balance 1080 Intake: Oral 1080 Other: Voiding Method Toilet Toilet # Voids 2 3 3 - Exam GENERAL: The patient is alert and oriented x3, not in any acute distress. Well developed, well nourished. HEENT: Pupils are round and equally reacting to light. EOMI. No scleral icterus. No conjunctival pallor. Normocephalic, atraumatic. No pharyngeal erythema. No thyromegaly. CARDIOVASCULAR: S1 and S2 present. No murmurs, rubs, or gallops. PULMONARY: Chest is clear to auscultation, no wheezing or crackles. ABDOMEN: Soft, nontender, nondistended, normoactive bowel sounds. No palpable organomegaly. MUSCULOSKELETAL: No joint swelling or deformity. EXTREMITIES: No cyanosis, clubbing, or pedal edema. NEUROLOGICAL: Gross neurological examination did not reveal any focal deficits. SKIN: No rashes. no petechiae. 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 Continue with steroids, bronchodilators and oxygen. Follow-up recommendation by pulmonary. Continue with symptomatic treatment for back pain, we'll check abdominal x-ray and nothing by mouth Labs and medication were reviewed.. Continue same treatment. Continue with symptomatic treatment. Resume home medication. Monitor lytes and vitals. DVT and GI prophylaxis. Further recommendations of the clinical course of the patient DVT prophylaxis: Subcutaneous heparin GI Prophylaxis: Pepcid PT/OT: Pending Prognosis is guarded
[2019-03-03 16:53] LABS: Glucose,Whole Blood 110 mg/dL (75-99)
[2019-03-03] MEDS: CALCIUM CARB-VIT D 500MG-200UN 1 EACH TAB PO SCH (17:22)
[2019-03-03 20:06] LABS: Glucose,Whole Blood 141 mg/dL (75-99)
[2019-03-03] MEDS: TAMSULOSIN 0.4 MG CAP.ER.24H PO SCH (21:18)
[2019-03-04] MEDS: ACETAMINOPHEN TAB 325 MG TAB PO PRN (00:05)
[2019-03-04 05:04] VITALS: BP 146/78; RESP 16; TEMP 97.1
[2019-03-04] MEDS: methylPREDNISolone SOD SUCCI 125 MG/2 ML VIAL IV SCH ×2 (06:15→11:06)
[2019-03-04 07:04] LABS: Glucose,Whole Blood 131 mg/dL (75-99)
[2019-03-04] MEDS: INSULIN ASPART (NovoLOG) 100 UNIT/ML VIAL SQ SCH ×2 (07:37→12:03)
[2019-03-04] MEDS: FAMOTIDINE 20 MG TAB PO SCH (07:38)
[2019-03-04] MEDS: APIXABAN 5 MG TAB PO SCH (07:38)
[2019-03-04] MEDS: SENNOSIDES 8.6 MG TAB PO SCH (07:38)
[2019-03-04] MEDS: METOPROLOL TARTRATE 50 MG TAB PO SCH (07:38)
[2019-03-04] MEDS: POLYETHYLENE GLYCOL 3350 17 GM POWD.PACK PO SCH (07:38)
[2019-03-04] MEDS: AZITHROMYCIN 500 MG TAB PO SCH (07:38)
[2019-03-04] MEDS: CALCIUM CARB-VIT D 500MG-200UN 1 EACH TAB PO SCH (07:38)
[2019-03-04] MEDS: BUDESONIDE 1 MG/2 ML NEBU INHALATION SCH (08:31)
[2019-03-04] MEDS: FORMOTEROL FUMARATE 20 MCG/2 ML NEBU INHALATION SCH (08:31)
[2019-03-04] MEDS: IPRATROPIUM-ALBUTEROL 3 ML NEB INHALATION SCH ×2 (08:31→11:54)
[2019-03-04 12:05] VITALS: PULSE 92
--- NOTE | 2019-03-05 11:03 | DS ---
DISCHARGE SUMMARY DATE OF SERVICE: 03/04/2019 FINAL DIAGNOSES: 1. Chronic obstructive pulmonary disease acute exacerbation with acute purulent tracheobronchitis. 2. Acute low back pain. 3. Constipation. 4. History of nicotine dependence. 5. Paroxysmal atrial fibrillation. 6. Chronic interstitial fibrotic changes of the lungs. 7. Benign prostatic hypertrophy. DISCHARGE DISPOSITION: The patient will be discharged in stable condition with guarded prognosis. HISTORY OF PRESENT ILLNESS: This 73-year-old gentleman with a past medical history of multiple medical problems admitted with COPD acute exacerbation, treated with bronchodilators, steroids, improved significantly. Dr. Yang saw the patient. Cleared the patient for discharge. On exam, vitals are stable. CARDIOVASCULAR: S1, S2 muffled. RESPIRATORY: A few scattered rhonchi. ABDOMEN: Soft. NERVOUS SYSTEM: No focal deficits. DISCHARGE ADVICE AND MEDICATIONS: 1. Diet is cardiac. 2. Activity limited until followup. 3. Follow up with Dr. Wall in 2 to 3 days. 4. Follow up with Dr. Yang as recommended. Medications are: 1. DuoNeb q.i.d. and p.r.n. 2. Eliquis 5 mg p.o. b.i.d. 3. Flomax 0.8 at bedtime. 4. Hydrocortisone cream one application daily. 5. Lopressor 50 mg p.o. b.i.d. 6. Symbicort 160/4.5 two puffs b.i.d. 7. Tylenol p.r.n. 8. Magnesium oxide 2.4 grams daily. 9. MiraLAX 17 grams daily. 10.Pepcid 20 mg p.o. b.i.d. 11.Prednisone taper 40 mg p.o. daily for 3 days, 30 for 3 days, 20 for 3 days 10 for 3 days. 12.Senokot 8.6 mg p.o. b.i.d. 13.Ventolin p.r.n. 14.Zithromax 500 mg p.o. daily for 2 more days. Once again the patient will be discharged in a stable condition with guarded prognosis. MMODL / IJN: [id number] /
== END 2019-03-04 12:10 | disposition home or self-care (01) | DRG 191 ==
LOC: EC 21:42 → 6NMEDSUR 23:24
PROVIDERS: ADMIT Hospitalist; ATTEND Hospitalist
DX: J44.0 Chronic obstructive pulmonary disease with (acute) lower respiratory infection (principal); J84.9 Interstitial pulmonary disease, unspecified; J20.9 Acute bronchitis, unspecified; J44.1 Chronic obstructive pulmonary disease with (acute) exacerbation; R09.02 Hypoxemia; I48.0 Paroxysmal atrial fibrillation; M54.5 Low back pain; G89.29 Other chronic pain; M48.54XS Collapsed vertebra, not elsewhere classified, thoracic region, sequela of fracture; N40.0 Benign prostatic hyperplasia without lower urinary tract symptoms; K59.00 Constipation, unspecified; Z79.01 Long term (current) use of anticoagulants; Z79.51 Long term (current) use of inhaled steroids; Z79.899 Other long term (current) drug therapy; Z87.891 Personal history of nicotine dependence; Z98.42 Cataract extraction status, left eye; Z98.41 Cataract extraction status, right eye; Z96.1 Presence of intraocular lens; Z98.890 Other specified postprocedural states; Z91.041 Radiographic dye allergy status; Z91.040 Latex allergy status; Z82.49 Family history of ischemic heart disease and other diseases of the circulatory system; Z81.8 Family history of other mental and behavioral disorders
CPT/HCPCS: 36415; 71046; 72070; 72100; 74019; 80048; 80053; 81003; 82550; 83605; 84484; 85025; 85610; 85730; 87040; 87502; 93005; 94640; 94760; 96374; 96375; 99285

== ENCOUNTER 2019-03-05 18:14 | Emergency (ER) | payer MEDICARE ==
--- NOTE | 2019-03-05 21:44 | ED ---
General Adult HPI - General Chief complaint: Abdominal Pain Stated complaint: constipated Time Seen by Provider: 03/05/19 21:19 Source: patient, family Mode of arrival: ambulatory Limitations: no limitations - History of Present Illness Initial comments: 73-year-old male patient presents to the emergency department today for evaluation of constipation. Patient states he has not had a bowel movement in the last 2 days. Patient states that he was given stool softeners medication while admitted to the hospital, he was discharged 2 days ago was unable to get his prescriptions filled until today. States he has not taken any stool softeners or laxatives. He denies any abdominal pain, nausea, or vomiting. Denies any rectal pain or pressure. Patient is only concerned because he has not had a bowel movement. States he is eating and drinking without difficulty. Denies any other concerns or symptoms. Patient denies any recent rash, fever, chills, shortness breath, chest pain, back pain, numbness, tingling, dizziness, weakness, hematuria, dysuria, urinary urgency, urinary frequency, headache, visual changes, or any other complaints. - Related Data Home Medications Medication Instructions Recorded Confirmed Tamsulosin HCl [Flomax] 0.8 mg PO HS 03/24/18 03/01/19 Budesonide-Formot 160-4.5 Mcg 2 puff INHALATION RT-BID 04/20/18 03/01/19 [Symbicort 160-4.5 Mcg Inhaler] Apixaban [Eliquis] 5 mg PO BID 09/14/18 03/01/19 Ipratropium-Albuterol Nebulize 3 ml INHALATION RT-Q4H 09/25/18 03/01/19 [Duoneb 0.5 mg-3 mg/3 ml Soln] Acetaminophen Tab [Tylenol] 1,000 mg PO Q6H PRN 02/04/19 03/01/19 Hydrocortisone Cream 1 applic TOPICAL BID PRN 02/04/19 03/01/19 [Hydrocortisone 1% Cream] Metoprolol Tartrate [Lopressor] 50 mg PO BID 02/04/19 03/01/19 Previous Rx's Medication Instructions Recorded Albuterol Inhaler [Ventolin Hfa 1 - 2 puff INHALATION RT-Q6H PRN 03/03/19 Inhaler] #1 puff Azithromycin [Zithromax] 500 mg PO DAILY #2 tab 03/03/19 Famotidine [Pepcid] 20 mg PO Q12HR #30 tab 03/03/19 Magnesium Hydroxide [Milk of 2,400 mg PO DAILY PRN #10 ml 03/03/19 Magnesia Concentrate] Polyethylene Glycol 3350 [Miralax] 17 gm PO DAILY PRN #10 powd.pack 03/03/19 Sennosides [Senokot] 8.6 mg PO BID PRN #15 tab 03/03/19 predniSONE 10 mg PO DIRECTED #30 tab 03/03/19 Allergies Allergy/AdvReac Type Severity Reaction Status Date / Time Iodinated Contrast Media Allergy Rash/Hives Verified 03/05/19 19:52 [Iodinated Contrast- Oral and IV Dye] latex Allergy Rash/Hives Verified 03/05/19 19:52 Review of Systems ROS Statement: Those systems with pertinent positive or pertinent negative responses have been documented in the HPI. ROS Other: All systems not noted in ROS Statement are negative. Past Medical History Past Medical History: Atrial Fibrillation, COPD, Prostate Disorder Additional Past Medical History / Comment(s): Paroxysmal Afib, BPH History of Any Multi-Drug Resistant Organisms: None Reported Past Surgical History: No Surgical Hx Reported Additional Past Surgical History / Comment(s): Bilateral cataract removals-lens implants, colonoscpoy Past Anesthesia/Blood Transfusion Reactions: No Reported Reaction Additional Past Anesthesia/Blood Transfusion Reaction / Comment(s): Has never received any blood transfusions. Past Psychological History: No Psychological Hx Reported Smoking Status: Current every day smoker Past Alcohol Use History: None Reported Past Drug Use History: None Reported - Past Family History Mother Family Medical History: AFIB, Dementia Father Family Medical History: Myocardial Infarction ([place]) Additional Family Medical History / Comment(s): in his 70's from [place] General Exam Limitations: no limitations General appearance: alert, in no apparent distress, other (This is a well- developed, well-nourished elderly male patient in no acute distress. Vital signs upon presentation are temperature 97.6F, pulse 79, respirations 20, blood pressure 138/84, pulse ox 96% on room air.) Respiratory exam: Present: normal lung sounds bilaterally. Absent: respiratory distress, wheezes, rales, rhonchi, stridor Cardiovascular Exam: Present: regular rate, normal rhythm, normal heart sounds. Absent: systolic murmur, diastolic murmur, rubs, gallop, clicks GI/Abdominal exam: Present: soft, distended, normal bowel sounds. Absent: tenderness, guarding, rebound, rigid Neurological exam: Present: alert, oriented X3, CN II-XII intact Psychiatric exam: Present: normal affect, normal mood Skin exam: Present: warm, dry, intact, normal color. Absent: rash Course Vital Signs 03/05/19 03/05/19 03/05/19 19:48 21:31 21:56 Temperature 97.6 F 97.7 F 98.4 F Pulse Rate 79 87 106 H Respiratory 20 16 18 Rate Blood Pressure 138/84 143/79 126/76 O2 Sat by Pulse 96 94 L 99 Oximetry Medical Decision Making - Medical Decision Making 73-year-old male patient presented to the emergency department today reporting no bowel movement for the last 2 days. He denies abdominal pain, nausea, or vomiting. Denies any rectal pain or pressure. Denies any rectal bleeding. Physical examination reveals a distended soft abdomen with no tenderness. X-ray was obtained and did show mild constipation improved compared to previous exam. He was recently in the hospital he was discharged with MiraLAX, Senokot, and milk of magnesia. He has not taken any of these medications as he just had the perception stilled today. We will give a glycerin suppository and discharged home. He is instructed to follow-up with his primary care physician for recheck in 1-2 days. Return parameters were discussed in detail. He verbalizes understanding and agrees with this plan. - Radiology Data Radiology results: report reviewed, image reviewed KUB x-ray was obtained. Report was reviewed in its entirety. Impression by Dr. Benedict shows evidence of mild constipation improved compared to last exam Disposition Clinical Impression: Constipation Disposition: HOME SELF-CARE Condition: Good Instructions (If sedation given, give patient instructions): Constipation (ED) Additional Instructions: Increase fluids. Take medication as directed. Follow-up through primary care physician for recheck in 1-2 days. Return to the emergency department immediately for any new, worsening, or concerning symptoms. Is patient prescribed a controlled substance at d/c from ED?: No Referrals: Frankie aWll DO [Primary Care Provider] - 1-2 days Time of Disposition: 22:29
[2019-03-05 21:59] VITALS: BP 126/76; PULSE 106; RESP 18; TEMP 98.4
--- NOTE | 2019-03-05 22:17 | XR ---
EXAMINATION TYPE: XR KUB DATE OF EXAM: 03/05/2019 COMPARISON: 03/02/2019 HISTORY: Constipation TECHNIQUE: 2 views upright FINDINGS: There is no sign of intestinal obstruction or pneumoperitoneum. There is some retained feca l material in the large bowel. Lung bases are clear of consolidation. There are no pathologic calcifi cations. IMPRESSION: There is evidence of mild constipation improved compared to last exam.
[2019-03-05] MEDS ORDERED: MAGNESIUM CITRATE 296 ML BOTTLE PO ONE (22:28)
[2019-03-05] MEDS ORDERED: GLYCERIN ADULT SUPPOSITORY 1 EACH RECTAL STA (22:35)
== END 2019-03-05 22:45 | disposition home or self-care (01) ==
LOC: EC 18:14
DX: K59.00 Constipation, unspecified (principal); I48.0 Paroxysmal atrial fibrillation; J44.9 Chronic obstructive pulmonary disease, unspecified; N40.0 Benign prostatic hyperplasia without lower urinary tract symptoms; F17.200 Nicotine dependence, unspecified, uncomplicated; Z91.040 Latex allergy status; Z91.041 Radiographic dye allergy status; Z79.01 Long term (current) use of anticoagulants; Z79.51 Long term (current) use of inhaled steroids; Z79.899 Other long term (current) drug therapy
CPT/HCPCS: 74018; 99284

== ENCOUNTER 2019-03-27 04:46 | Emergency (ER) | payer MEDICARE, OTHER ==
[2019-03-27 05:02] VITALS: BP 127/76; TEMP 97.7
[2019-03-27 05:16] VITALS: RESP 22
[2019-03-27] MEDS ORDERED: ALBUTEROL NEBULIZED 2.5 MG/3 ML INHALATION STA (05:27)
[2019-03-27] MEDS ORDERED: IPRATROPIUM-ALBUTEROL 3 ML NEB INHALATION STA (05:28)
[2019-03-27 05:53] VITALS: PULSE 92
--- NOTE | 2019-03-27 06:09 | ED ---
SOB HPI - General Chief Complaint: Shortness of Breath Stated Complaint: KEERTHI Time Seen by Provider: 03/27/19 05:16 Source: patient, family Mode of arrival: ambulatory - History of Present Illness Initial Comments: This patient is a 73-year-old man who presents to have evaluation for COPD. He states that he has established COPD and that he usually uses home albuterol. Patient states that he tried taking his albuterol this morning but it had not given him adequate relief. He denies fever or chills. He does have a baseline cough without sputum and states there has not really been a change. No chest pain. No leg pain or swelling. No change in urination. No bloody or tarry stools. MD Complaint: shortness of breath -: hour(s) Severity: mild Consistency: constant Improves With: nothing Worsens With: nothing Known History Of: COPD Associated Symptoms: denies other symptoms Treatments Prior to Arrival: bronchodilator - Related Data Home Oxygen Therapy: No Home Medications Medication Instructions Recorded Confirmed Tamsulosin HCl [Flomax] 0.8 mg PO HS 03/24/18 03/01/19 Budesonide-Formot 160-4.5 Mcg 2 puff INHALATION RT-BID 04/20/18 03/01/19 [Symbicort 160-4.5 Mcg Inhaler] Apixaban [Eliquis] 5 mg PO BID 09/14/18 03/01/19 Ipratropium-Albuterol Nebulize 3 ml INHALATION RT-Q4H 09/25/18 03/01/19 [Duoneb 0.5 mg-3 mg/3 ml Soln] Acetaminophen Tab [Tylenol] 1,000 mg PO Q6H PRN 02/04/19 03/01/19 Hydrocortisone Cream 1 applic TOPICAL BID PRN 02/04/19 03/01/19 [Hydrocortisone 1% Cream] Metoprolol Tartrate [Lopressor] 50 mg PO BID 02/04/19 03/01/19 Previous Rx's Medication Instructions Recorded Albuterol Inhaler [Ventolin Hfa 1 - 2 puff INHALATION RT-Q6H PRN 03/03/19 Inhaler] #1 puff Azithromycin [Zithromax] 500 mg PO DAILY #2 tab 03/03/19 Famotidine [Pepcid] 20 mg PO Q12HR #30 tab 03/03/19 Magnesium Hydroxide [Milk of 2,400 mg PO DAILY PRN #10 ml 03/03/19 Magnesia Concentrate] Polyethylene Glycol 3350 [Miralax] 17 gm PO DAILY PRN #10 powd.pack 03/03/19 Sennosides [Senokot] 8.6 mg PO BID PRN #15 tab 03/03/19 predniSONE 10 mg PO DIRECTED #30 tab 03/03/19 Albuterol Inhaler [Ventolin Hfa 1 - 2 puff INHALATION Q6HR PRN #1 03/27/19 Inhaler] inhaler predniSONE [Deltasone] 20 mg PO BID #8 tab 03/27/19 Allergies Allergy/AdvReac Type Severity Reaction Status Date / Time Iodinated Contrast Media Allergy Rash/Hives Verified 03/27/19 05:02 [Iodinated Contrast- Oral and IV Dye] latex Allergy Rash/Hives Verified 03/27/19 05:02 Review of Systems ROS Statement: Those systems with pertinent positive or pertinent negative responses have been documented in the HPI. ROS Other: All systems not noted in ROS Statement are negative. Constitutional: Denies: fever, chills, weakness Respiratory: Reports: as per HPI, cough, dyspnea, wheezes. Denies: hemoptysis, stridor Cardiovascular: Denies: chest pain, palpitations, orthopnea, edema, syncope Gastrointestinal: Denies: abdominal pain, vomiting, diarrhea Genitourinary: Denies: dysuria Musculoskeletal: Denies: back pain Skin: Denies: rash Neurological: Denies: headache Past Medical History Past Medical History: Atrial Fibrillation, COPD, Prostate Disorder Additional Past Medical History / Comment(s): Paroxysmal Afib, BPH History of Any Multi-Drug Resistant Organisms: None Reported Past Surgical History: No Surgical Hx Reported Additional Past Surgical History / Comment(s): Bilateral cataract removals-lens implants, colonoscopy, recent surgical procedure to the spine Mar 2019 Past Anesthesia/Blood Transfusion Reactions: No Reported Reaction Additional Past Anesthesia/Blood Transfusion Reaction / Comment(s): Has never received any blood transfusions. Past Psychological History: No Psychological Hx Reported Smoking Status: Current every day smoker Past Alcohol Use History: None Reported Past Drug Use History: None Reported - Past Family History Mother Family Medical History: AFIB, Dementia Father Family Medical History: Myocardial Infarction ([place]) Additional Family Medical History / Comment(s): in his 70's [place] General Exam General appearance: alert, in no apparent distress Head exam: Present: atraumatic, normocephalic Eye exam: Present: normal appearance. Absent: scleral icterus, conjunctival injection ENT exam: Present: normal oropharynx Respiratory exam: Present: wheezes. Absent: respiratory distress, rales, rhonchi, stridor, accessory muscle use Cardiovascular Exam: Present: regular rate, normal rhythm, normal heart sounds. Absent: systolic murmur, diastolic murmur, rubs, gallop GI/Abdominal exam: Present: soft. Absent: distended, tenderness Extremities exam: Present: normal inspection, normal capillary refill. Absent: pedal edema, calf tenderness Back exam: Present: normal inspection Psychiatric exam: Absent: anxious Skin exam: Present: warm, dry, intact, normal color. Absent: rash Course Vital Signs 03/27/19 03/27/19 03/27/19 04:58 05:12 05:35 Temperature 97.7 F Pulse Rate 98 96 Respiratory 24 22 Rate Blood Pressure 127/76 O2 Sat by Pulse 97 Oximetry 03/27/19 05:52 Temperature Pulse Rate 92 Respiratory Rate Blood Pressure O2 Sat by Pulse Oximetry Medical Decision Making - Medical Decision Making Patient is given nebulized treatment here and then is feeling well. He would like to go home. I did prescribe new albuterol inhaler on the chance that the patient's medications may be . I did provide prescription for prednisone which she should start using if he seems that his COPD is flaring. Otherwise discussed appropriate follow-up as well as return parameters. Disposition Clinical Impression: COPD exacerbation Disposition: HOME SELF-CARE Condition: Good Instructions (If sedation given, give patient instructions): COPD (Chronic Obstructive Pulmonary Disease) (ED) Prescriptions: predniSONE [Deltasone] 20 mg PO BID #8 tab Albuterol Inhaler [Ventolin Hfa Inhaler] 1 - 2 puff INHALATION Q6HR PRN #1 inhaler PRN Reason: Wheezing Is patient prescribed a controlled substance at d/c from ED?: No Referrals: Frankie Wall DO [Primary Care Provider] - 1-2 days
== END 2019-03-27 06:18 | disposition home or self-care (01) ==
LOC: EC 04:46
DX: J44.1 Chronic obstructive pulmonary disease with (acute) exacerbation (principal); Z76.0 Encounter for issue of repeat prescription; I48.0 Paroxysmal atrial fibrillation; N40.0 Benign prostatic hyperplasia without lower urinary tract symptoms; F17.200 Nicotine dependence, unspecified, uncomplicated; Z91.040 Latex allergy status; Z91.041 Radiographic dye allergy status; Z79.01 Long term (current) use of anticoagulants; Z79.51 Long term (current) use of inhaled steroids; Z79.899 Other long term (current) drug therapy
CPT/HCPCS: 94640; 99284

== ENCOUNTER 2019-03-30 17:37 | Emergency (ER) | payer MEDICARE ==
[2019-03-30 18:28] VITALS: BP 135/76; PULSE 107; RESP 18; TEMP 98.4
--- NOTE | 2019-03-30 18:55 | XR ---
Thoracic spine HISTORY: Back pain Frontal and lateral views of the thoracic spine and 3 images correlated to prior exam 03/01/2019 Postprocedural changes are noted at the midthoracic spine with minimal extravasation at T8. Bone mine ralization is reduced which limits sensitivity. There is a slight spinal curvature. Multilevel spondy losis is present. Degenerative disc changes are noted in the lumbar spine. Interstitial changes suspe cted within the lungs. IMPRESSION: Postprocedural changes, degenerative disc disease. Spinal curvature.
[2019-03-30 19:53] LABS: Basophils # (A) 0.4 k/uL (0-0.2); Basophils % (A) 3 %; Eosinophils # (A) 0.2 k/uL (0-0.7); Eosinophils % (A) 1 %; HCT 45.7 % (39.0-53.0); HGB 15.3 gm/dL (13.0-17.5); Lymphocytes # (A) 1.9 k/uL (1.0-4.8); Lymphocytes % (A) 15 %; MCH 32.1 pg (25.0-35.0); MCHC 33.3 g/dL (31.0-37.0); MCV 96.3 fL (80.0-100.0); Mean Platelet Volume 7.4; Monocytes % (A) 8 %; Neutrophils # (A) 8.7 k/uL (1.3-7.7); Neutrophils % (A) 70 %; Platelet Count 314 k/uL (150-450); RBC 4.75 m/uL (4.30-5.90); RDW 13.1 % (11.5-15.5); WBC 12.3 k/uL (3.8-10.6)
[2019-03-30 20:06] LABS: ALT 23 U/L (4-49); AST 26 U/L (17-59); African American GFR (CKD) >90 (>60 ml/min/1.73 sqM); Albumin 4.4 g/dL (3.5-5.0); Alkaline Phosphatase 84 U/L (38-126); Anion Gap 11 mmol/L; Blood Urea Nitrogen 17 mg/dL (9-20); Carbon Dioxide 24 mmol/L (22-30); Chloride 103 mmol/L (98-107); Glucose 120 mg/dL (74-99); Non-African American GFR(CKD) 82 (>60 ml/min/1.73 sqM); Potassium 3.7 mmol/L (3.5-5.1); Sodium 138 mmol/L (137-145); Total Bilirubin 0.5 mg/dL (0.2-1.3); Total Protein 7.3 g/dL (6.3-8.2)
[2019-03-30] MEDS ORDERED: HYDROmorphone 0.5 MG/0.5 ML SYRINGE IM STA (20:06)
--- NOTE | 2019-03-30 20:17 | CT ---
EXAMINATION TYPE: CT thor lumbar spine wo con DATE OF EXAM: 03/30/2019 COMPARISON: Plain film same date HISTORY: Recent kyphoplasty, back pain CT DLP: 976.7 mGycm Automated exposure control for dose reduction was used. Helical acquisition through the thoracic spin e using departmental protocol. FINDINGS: As noted on plain film there is been cement placement within the T8 vertebral body. There is some ext ravasation noted extrinsic to the vertebral body as noted on plain film which shows anterior epidural crescentic high attenuation anterior to the thecal sac at this level and extending along the left ne rve root coursing into the neural foramen. Some loss of height present at T8 consistent with prior fr acture. Multilevel Schmorl's node formation, incidental note made of lumbar degenerative disc disease . Spinal curvature is present. Posterior disc bulge present at L1-2 causes anterior mass effect on th e thecal sac, shows a posterior calcification. Suspect posterior disc bulge also present L4-5, dye range feeder ior extension endplate disc complex L3-4, L5-S1. Incidental note made of emphysematous changes within the lungs. 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 Distal abdominal aorta measures 3.3 cm, common iliac artery measures approximate ly 2.1 cm proximally. Proximal descending thoracic aorta 3 cm. Distal esophagus somewhat thickened. T here may be a small hiatal hernia. IMPRESSION: Postprocedural changes with extravasation of the cement as described, correlate for left T8 radiculop athy. Correlate to exclude esophagitis. Emphysema. Aneurysmal change as described, and iliac artery, distal abdominal aorta, ectasia proximal descending aorta. Additional findings above.
--- NOTE | 2019-03-30 20:41 | ED ---
Back Pain HPI - General Chief Complaint: Back Pain/Injury Stated Complaint: post back surgery pain Time Seen by Provider: 03/30/19 19:13 Source: patient Limitations: no limitations - History of Present Illness Initial Comments: 73-year-old male 3 weeks status post thoracic fusion presenting for evaluation of back pain increasing x 2 day. She states she has done a lot of driving between [place] in his hometown of [place]. He states that he has had increasing back pain which he attributes to driving and being out of his pain medications. Patient states he has no fevers, numbness tingling loss of sensation of the skin of the abdomen or lower extremities he denies any loss of bowel or bladder control urinary retention or weakness of the lower extremities. Patient states he is able to ambulate however this increases the pain. Patient says any fast or trauma. Patient denies any fever or flulike symptoms or general malaise. Patient states he called his surgeon's office out of [place] where he was told to come to the emergency department for imaging studies and ev aluation. Upon arrival patient appears well infiltrate no signs of acute distress he is afebrile. Patient denies leg swelling, chest pain, SOB. or any other concerns. - Related Data Home Medications Medication Instructions Recorded Confirmed Tamsulosin HCl [Flomax] 0.8 mg PO HS 03/24/18 03/01/19 Budesonide-Formot 160-4.5 Mcg 2 puff INHALATION RT-BID 04/20/18 03/01/19 [Symbicort 160-4.5 Mcg Inhaler] Apixaban [Eliquis] 5 mg PO BID 09/14/18 03/01/19 Ipratropium-Albuterol Nebulize 3 ml INHALATION RT-Q4H 09/25/18 03/01/19 [Duoneb 0.5 mg-3 mg/3 ml Soln] Acetaminophen Tab [Tylenol] 1,000 mg PO Q6H PRN 02/04/19 03/01/19 Hydrocortisone Cream 1 applic TOPICAL BID PRN 02/04/19 03/01/19 [Hydrocortisone 1% Cream] Metoprolol Tartrate [Lopressor] 50 mg PO BID 02/04/19 03/01/19 Previous Rx's Medication Instructions Recorded Albuterol Inhaler [Ventolin Hfa 1 - 2 puff INHALATION RT-Q6H PRN 03/03/19 Inhaler] #1 puff Azithromycin [Zithromax] 500 mg PO DAILY #2 tab 03/03/19 Famotidine [Pepcid] 20 mg PO Q12HR #30 tab 03/03/19 Magnesium Hydroxide [Milk of 2,400 mg PO DAILY PRN #10 ml 03/03/19 Magnesia Concentrate] Polyethylene Glycol 3350 [Miralax] 17 gm PO DAILY PRN #10 powd.pack 03/03/19 Sennosides [Senokot] 8.6 mg PO BID PRN #15 tab 03/03/19 predniSONE 10 mg PO DIRECTED #30 tab 03/03/19 Albuterol Inhaler [Ventolin Hfa 1 - 2 puff INHALATION Q6HR PRN #1 03/27/19 Inhaler] inhaler predniSONE [Deltasone] 20 mg PO BID #8 tab 03/27/19 HYDROcodone/APAP 5-325MG [[place] 1 tab PO Q6HR PRN 3 Days #12 tab 03/30/19 5-325] Allergies Allergy/AdvReac Type Severity Reaction Status Date / Time Iodinated Contrast Media Allergy Rash/Hives Verified 03/27/19 05:02 [Iodinated Contrast- Oral and IV Dye] latex Allergy Rash/Hives Verified 03/27/19 05:02 Review of Systems ROS Statement: Those systems with pertinent positive or pertinent negative responses have been documented in the HPI. ROS Other: All systems not noted in ROS Statement are negative. Past Medical History Past Medical History: Atrial Fibrillation, COPD, Prostate Disorder Additional Past Medical History / Comment(s): Paroxysmal Afib, BPH History of Any Multi-Drug Resistant Organisms: None Reported Past Surgical History: No Surgical Hx Reported Additional Past Surgical History / Comment(s): Bilateral cataract removals-lens implants, colonoscopy, recent surgical procedure to the spine Mar 2019 Past Anesthesia/Blood Transfusion Reactions: No Reported Reaction Additional Past Anesthesia/Blood Transfusion Reaction / Comment(s): Has never received any blood transfusions. Past Psychological History: No Psychological Hx Reported Smoking Status: Current every day smoker Past Alcohol Use History: None Reported Past Drug Use History: None Reported - Past Family History Mother Family Medical History: AFIB, Dementia Father Family Medical History: Myocardial Infarction ([place]) Additional Family Medical History / Comment(s): in his 70's [place] General Exam - General Exam Comments Initial Comments: General: The patient is awake and alert, in no distress, and does not appear acutely ill. Eye: +3 mm pupils are equal, round and reactive to light, extra-ocular movements are intact. No nystagmus. There is normal conjunctiva bilaterally. No signs of icterus. Ears, nose, mouth and throat: There are moist mucous membranes and no oral lesions. Neck: The neck is supple, there is no tenderness or JVD. Cardiovascular: There is a regular rate and rhythm. No murmur, rub or gallop is appreciated. Respiratory: Lungs are clear to auscultation, respirations are non-labored, breath sounds are equal. No wheezes, stridor, rales, or rhonchi. Gastrointestinal: Soft, non-distended, non-tender abdomen without masses or organomegaly noted. There is no rebound or guarding present. Musculoskeletal: Small 2 cm incision midline left sdied with glue covering , no redness, otherwise normal inspection cervical thoracic and lumbar spine T8-T10 estimated midline tendernesss. No lumbar or cervical tenderness appreicated. Normal ROM, no tenderness of the LE b/l (-) SLR. Strength 5/5 of the LE B/l. Sensation intact of the LE b/l including the saddle region. DP pulses equal bilaterally 2+. No LE edema Neurological: A&O x 3. CN II-XII intact grossly, There are no obvious motor or sensory deficits. Coordination appears grossly intact. Speech is normal. Skin: Skin is warm and dry and no rashes or lesions are noted. Psychiatric: Cooperative, appropriate mood & affect, normal judgment. Limitations: no limitations Course Vital Signs 03/30/19 18:25 Temperature 98.4 F Pulse Rate 107 H Respiratory 18 Rate Blood Pressure 135/76 O2 Sat by Pulse 98 Oximetry Medical Decision Making - Medical Decision Making 73-year-old male presenting for back pains 3 weeks post operation. No fevers. No focal neurological deficits. Some mild midline tenderness. CT without contrast was obtained revealing some extirpation of the cement as well as incidental findings of the aorta and lumbar disc herniations. I discussed these findings with the patient I also contacted patient's surgeon Dr. Starr personally speaking with him, I read directly from the CT report, reported PE and VS, as well as presented history. He recommended an office follow-up. Discharged with [place]. I discussed the case attending provider who is agreeable to this care plan discharge at this time. Patient laboratory studies stable aside from some mild leukocytosis. Return parameters were discussed at length the patient including immediate return for any neurological symptoms such as numbness or weakness. Also discussed return for fevers. Patient was understanding was discharged appearing wel.=l. Patient is also aware that he needs to call his primary care provider tomorrow to follow-up for incidental findings the aorta request CT to go over all findings. - Lab Data Result diagrams: 03/30/19 19:40 03/30/19 19:40 Lab Results 03/30/19 03/30/19 Range/Units 19:40 19:40 WBC 12.3 H (3.8-10.6) k/uL RBC 4.75 (4.30-5.90) m/uL Hgb 15.3 (13.0-17.5) gm/dL Hct 45.7 (39.0-53.0) % MCV 96.3 (80.0-100.0) fL MCH 32.1 (25.0-35.0) pg MCHC 33.3 (31.0-37.0) g/dL RDW 13.1 (11.5-15.5) % Plt Count 314 (150-450) k/uL Neutrophils % 70 % Lymphocytes % 15 % Monocytes % 8 % Eosinophils % 1 % Basophils % 3 % Neutrophils # 8.7 H (1.3-7.7) k/uL Lymphocytes # 1.9 (1.0-4.8) k/uL Monocytes # 1.0 (0-1.0) k/uL Eosinophils # 0.2 (0-0.7) k/uL Basophils # 0.4 H (0-0.2) k/uL Sodium 138 (137-145) mmol/L Potassium 3.7 (3.5-5.1) mmol/L Chloride 103 (98-107) mmol/L Carbon Dioxide 24 (22-30) mmol/L Anion Gap 11 mmol/L BUN 17 (9-20) mg/dL Creatinine 0.92 (0.66-1.25) mg/dL Est GFR (CKD-EPI)AfAm >90 (>60 ml/min/1.73 sqM) Est GFR (CKD-EPI)NonAf 82 (>60 ml/min/1.73 sqM) Glucose 120 H (74-99) mg/dL Calcium 10.0 (8.4-10.2) mg/dL Total Bilirubin 0.5 (0.2-1.3) mg/dL AST 26 (17-59) U/L ALT 23 (4-49) U/L Alkaline Phosphatase 84 (38-126) U/L Total Protein 7.3 (6.3-8.2) g/dL Albumin 4.4 (3.5-5.0) g/dL Disposition Clinical Impression: Aortic aneurysm, abdominal, Bulging lumbar disc, Post-operative pain, Low back pain Disposition: HOME SELF-CARE Condition: Good Instructions (If sedation given, give patient instructions): Acute Low Back Pain (ED) Additional Instructions: Please use medication as discussed. Please follow-up with Dr. Merrick Vang as discussed with office tomorrow--call first thing in the morning and have records requested. Please obtain CT reports for PCP to go over for proper follow-up of abdominal aneursyms. Please return to emergency room if the symptoms increase or worsen or for any other concerns- fevers. Prescriptions: HYDROcodone/APAP 5-325MG [[place] 5-325] 1 tab PO Q6HR PRN 3 Days #12 tab PRN Reason: Severe Pain Is patient prescribed a controlled substance at d/c from ED?: No When asked, does pt state using other controlled substances?: No If prescribed controlled substance>3 days was MAPS reviewed?: Prescribed <3 Days If opioid is for acute pain is fill amount 7 days or less?: Yes If Rx opioid, was Start Talking consent form obtained?: Yes Referrals: Frankie Wall DO [Primary Care Provider] - 1-2 days Time of Disposition: 20:40
== END 2019-03-30 20:49 | disposition home or self-care (01) ==
LOC: EC 17:37
DX: M51.26 Other intervertebral disc displacement, lumbar region (principal); G89.18 Other acute postprocedural pain; I71.4 Abdominal aortic aneurysm, without rupture; D72.829 Elevated white blood cell count, unspecified; I48.0 Paroxysmal atrial fibrillation; J44.9 Chronic obstructive pulmonary disease, unspecified; N40.0 Benign prostatic hyperplasia without lower urinary tract symptoms; F17.200 Nicotine dependence, unspecified, uncomplicated; Z79.01 Long term (current) use of anticoagulants; Z79.51 Long term (current) use of inhaled steroids; Z79.899 Other long term (current) drug therapy; Z91.040 Latex allergy status; Z91.041 Radiographic dye allergy status
CPT/HCPCS: 36415; 80053; 85025; 72070; 72128; 72131; 96372; 99284; J1170

== ENCOUNTER 2019-04-19 15:32 | Emergency (ER) | payer MEDICARE ==
[2019-04-19 15:46] VITALS: RESP 18
[2019-04-19] MEDS ORDERED: SODIUM CHLORIDE 0.9% 1,000 ML IV STA (16:14)
[2019-04-19 16:47] LABS: Basophils # (A) 0.1 k/uL (0-0.2); Basophils % (A) 1 %; Eosinophils # (A) 0.5 k/uL (0-0.7); Eosinophils % (A) 5 %; HCT 40.2 % (39.0-53.0); HGB 13.9 gm/dL (13.0-17.5); Lymphocytes # (A) 1.3 k/uL (1.0-4.8); Lymphocytes % (A) 13 %; MCH 32.9 pg (25.0-35.0); MCHC 34.5 g/dL (31.0-37.0); MCV 95.5 fL (80.0-100.0); Mean Platelet Volume 7.9; Monocytes # (A) 0.6 k/uL (0-1.0); Monocytes % (A) 6 %; Neutrophils # (A) 7.5 k/uL (1.3-7.7); Neutrophils % (A) 74 %; Platelet Count 262 k/uL (150-450); RBC 4.21 m/uL (4.30-5.90); WBC 10.1 k/uL (3.8-10.6)
--- NOTE | 2019-04-19 16:56 | XR ---
EXAMINATION TYPE: XR KUB DATE OF EXAM: 04/19/2019 COMPARISON: 03/05/2019 HISTORY: Pain TECHNIQUE: One view abdominal series FINDINGS: The osseous structures are intact. The bowel gas pattern is nonspecific. Air seen both large and sma ll bowel loops in a nonspecific pattern. Diffuse osteopenia, degenerative change of the spine and ann dence of vertebroplasty. Arthropathy of the hips. Occasional air-fluid levels are seen. IMPRESSION: 1. Nonspecific abdomen. Differential diagnosis would include ileus or enteritis. Partial obstruction not entirely excluded correlate clinically.
[2019-04-19 16:57] LABS: ALT 16 U/L (4-49); AST 22 U/L (17-59); African American GFR (CKD) >90 (>60 ml/min/1.73 sqM); Albumin 3.9 g/dL (3.5-5.0); Alkaline Phosphatase 77 U/L (38-126); Amylase 41 U/L (30-110); Anion Gap 9 mmol/L; Blood Urea Nitrogen 13 mg/dL (9-20); Calcium 9.5 mg/dL (8.4-10.2); Carbon Dioxide 22 mmol/L (22-30); Chloride 99 mmol/L (98-107); Glucose 91 mg/dL (74-99); Non-African American GFR(CKD) >90 (>60 ml/min/1.73 sqM); Potassium 4.2 mmol/L (3.5-5.1); Sodium 130 mmol/L (137-145); Total Bilirubin 0.8 mg/dL (0.2-1.3); Total Protein 6.4 g/dL (6.3-8.2)
[2019-04-19 17:46] VITALS: BP 135/95; PULSE 82; TEMP 97
--- NOTE | 2019-04-19 17:51 | ED ---
General Adult HPI - General Chief complaint: Abdominal Pain Stated complaint: Constipation Time Seen by Provider: 04/19/19 15:52 Source: patient, RN notes reviewed Mode of arrival: ambulatory Limitations: no limitations - History of Present Illness Initial comments: 74-year-old male presents to the emergency department for constipation. Patient states this has been ongoing for several months. States he hasn't had a bowel movement in the last few days. Patient does admit that he is passing gas. Patient states he has been taking several medications for constipation including MiraLAX, stool softeners, laxatives, and magnesium citrate. He states that he has also been doing enemas. States that he was seen in an emergency department in [place] and had a CAT scan done last week which was normal. I am attempting to get these results however had been waiting over 1.5 hours without any results. Patient states he has mild diffuse abdominal pain. He has no nausea vomiting. He did have back surgery in March however has no neurologic symptom s in his legs. No changes in bladder. Patient has no other complaints at this time including shortness of breath, chest pain, nausea or vomiting, headache, or visual changes. - Related Data Home Medications Medication Instructions Recorded Confirmed Tamsulosin HCl [Flomax] 0.8 mg PO HS 03/24/18 03/01/19 Budesonide-Formot 160-4.5 Mcg 2 puff INHALATION RT-BID 04/20/18 03/01/19 [Symbicort 160-4.5 Mcg Inhaler] Apixaban [Eliquis] 5 mg PO BID 09/14/18 03/01/19 Ipratropium-Albuterol Nebulize 3 ml INHALATION RT-Q4H 09/25/18 03/01/19 [Duoneb 0.5 mg-3 mg/3 ml Soln] Acetaminophen Tab [Tylenol] 1,000 mg PO Q6H PRN 02/04/19 03/01/19 Hydrocortisone Cream 1 applic TOPICAL BID PRN 02/04/19 03/01/19 [Hydrocortisone 1% Cream] Metoprolol Tartrate [Lopressor] 50 mg PO BID 02/04/19 03/01/19 Previous Rx's Medication Instructions Recorded Albuterol Inhaler [Ventolin Hfa 1 - 2 puff INHALATION RT-Q6H PRN 03/03/19 Inhaler] #1 puff Azithromycin [Zithromax] 500 mg PO DAILY #2 tab 03/03/19 Famotidine [Pepcid] 20 mg PO Q12HR #30 tab 03/03/19 Magnesium Hydroxide [Milk of 2,400 mg PO DAILY PRN #10 ml 03/03/19 Magnesia Concentrate] Polyethylene Glycol 3350 [Miralax] 17 gm PO DAILY PRN #10 powd.pack 03/03/19 Sennosides [Senokot] 8.6 mg PO BID PRN #15 tab 03/03/19 predniSONE 10 mg PO DIRECTED #30 tab 03/03/19 Albuterol Inhaler [Ventolin Hfa 1 - 2 puff INHALATION Q6HR PRN #1 03/27/19 Inhaler] inhaler predniSONE [Deltasone] 20 mg PO BID #8 tab 03/27/19 HYDROcodone/APAP 5-325MG [[place] 1 tab PO Q6HR PRN 3 Days #12 tab 03/30/19 5-325] Allergies Allergy/AdvReac Type Severity Reaction Status Date / Time Iodinated Contrast Media Allergy Rash/Hives Verified 04/19/19 15:42 [Iodinated Contrast- Oral and IV Dye] latex Allergy Rash/Hives Verified 04/19/19 15:42 Review of Systems ROS Statement: Those systems with pertinent positive or pertinent negative responses have been documented in the HPI. ROS Other: All systems not noted in ROS Statement are negative. Past Medical History Past Medical History: Atrial Fibrillation, COPD, Prostate Disorder Additional Past Medical History / Comment(s): Paroxysmal Afib, BPH History of Any Multi-Drug Resistant Organisms: None Reported Past Surgical History: No Surgical Hx Reported Additional Past Surgical History / Comment(s): Bilateral cataract removals-lens implants, colonoscopy, recent surgical procedure to the spine Mar 2019 Past Anesthesia/Blood Transfusion Reactions: No Reported Reaction Additional Past Anesthesia/Blood Transfusion Reaction / Comment(s): Has never received any blood transfusions. Past Psychological History: No Psychological Hx Reported Smoking Status: Current every day smoker Past Alcohol Use History: None Reported Past Drug Use History: None Reported - Past Family History Mother Family Medical History: AFIB, Dementia Father Family Medical History: Myocardial Infarction ([place]) Additional Family Medical History / Comment(s): in his 70's [place] General Exam Limitations: no limitations General appearance: alert, in no apparent distress Head exam: Present: atraumatic, normocephalic, normal inspection Eye exam: Present: normal appearance, PERRL, EOMI. Absent: scleral icterus, conjunctival injection, periorbital swelling ENT exam: Present: normal exam, mucous membranes moist Neck exam: Present: normal inspection, full ROM. Absent: tenderness, meningismus, lymphadenopathy Respiratory exam: Present: normal lung sounds bilaterally. Absent: respiratory distress, wheezes, rales, rhonchi, stridor Cardiovascular Exam: Present: regular rate, normal rhythm, normal heart sounds. Absent: systolic murmur, diastolic murmur, rubs, gallop, clicks GI/Abdominal exam: Present: soft, distended (Minimally distended. No significant pain to palpation.), normal bowel sounds. Absent: tenderness, guarding, rebound, rigid Neurological exam: Present: alert Course Vital Signs 04/19/19 04/19/19 15:42 17:17 Temperature 97.8 F Pulse Rate 106 H 79 Respiratory 18 18 Rate Blood Pressure 116/63 129/83 O2 Sat by Pulse 95 97 Oximetry Medical Decision Making - Medical Decision Making Patient presents for abdominal discomfort. Patient believes he is constipated. Last bowel movement a few days ago. Patient passing gas. Has been taking several medications for this as previously mentioned in HPI. Physical exam does reveal a mildly distended abdomen however it is soft with minimal generalized tenderness. Rectal exam revealed normal rectal tone. Enlarged prostate is noted which patient has a history of. There is no stool in palpated in the rectum.CBC CMP unremarkable. X-ray KUB shows a nonspecific abdomen. Differential diagnosis would include ileus or enteritis. Partial traction not entirely excluded correlate clinically. As discussed patient is passing gas. He does not have nausea vomiting. At this time I did not suspect an obstruction. I did discuss this case with Dr. Toussaint. At this time we have agreed for patient to try to stop taking the magnesium citrate, laxatives, and MiraLAX as he does not appear to have significant stool per day and. We recommend that he follows up with primary care and GI. He will return here if he has any worsening symptoms or is not passing gas. He is in agreement with this and his son is also in agreement. They are aware of return parameters. I did request CT reports from [facility]. At this time I been waiting over an hour and a half. I will watch out for results the patient will be discharged home in the meantime. - Lab Data Result diagrams: 04/19/19 16:34 04/19/19 16:34 Lab Results 04/19/19 04/19/19 Range/Units 16:34 16:34 WBC 10.1 (3.8-10.6) k/uL RBC 4.21 L (4.30-5.90) m/uL Hgb 13.9 (13.0-17.5) gm/dL Hct 40.2 (39.0-53.0) % MCV 95.5 (80.0-100.0) fL MCH 32.9 (25.0-35.0) pg MCHC 34.5 (31.0-37.0) g/dL RDW 13.0 (11.5-15.5) % Plt Count 262 (150-450) k/uL Neutrophils % 74 % Lymphocytes % 13 % Monocytes % 6 % Eosinophils % 5 % Basophils % 1 % Neutrophils # 7.5 (1.3-7.7) k/uL Lymphocytes # 1.3 (1.0-4.8) k/uL Monocytes # 0.6 (0-1.0) k/uL Eosinophils # 0.5 (0-0.7) k/uL Basophils # 0.1 (0-0.2) k/uL Sodium 130 L (137-145) mmol/L Potassium 4.2 (3.5-5.1) mmol/L Chloride 99 (98-107) mmol/L Carbon Dioxide 22 (22-30) mmol/L Anion Gap 9 mmol/L BUN 13 (9-20) mg/dL Creatinine 0.75 (0.66-1.25) mg/dL Est GFR (CKD-EPI)AfAm >90 (>60 ml/min/1.73 sqM) Est GFR (CKD-EPI)NonAf >90 (>60 ml/min/1.73 sqM) Glucose 91 (74-99) mg/dL Calcium 9.5 (8.4-10.2) mg/dL Total Bilirubin 0.8 (0.2-1.3) mg/dL AST 22 (17-59) U/L ALT 16 (4-49) U/L Alkaline Phosphatase 77 (38-126) U/L Total Protein 6.4 (6.3-8.2) g/dL Albumin 3.9 (3.5-5.0) g/dL Amylase 41 (30-110) U/L Lipase 46 (23-300) U/L Disposition Clinical Impression: Abdominal pain, Ileus Disposition: HOME SELF-CARE Condition: Good Instructions (If sedation given, give patient instructions): Abdominal Pain (ED) Additional Instructions: Please discontinue MiraLAX, magnesium citrate, and enemas. Follow-up with your doctor in one to 2 days. Follow up with GI as well. If you're having worsening symptoms are not passing gas return immediately to the emergency department. Is patient prescribed a controlled substance at d/c from ED?: No Referrals: Frankie Wall DO [Primary Care Provider] - 1-2 days Agustin Uriostegui MD [STAFF PHYSICIAN] - 1-2 days Time of Disposition: 17:50
== END 2019-04-19 18:08 | disposition home or self-care (01) ==
LOC: EC 15:32
DX: K56.7 Ileus, unspecified (principal); J44.9 Chronic obstructive pulmonary disease, unspecified; N40.0 Benign prostatic hyperplasia without lower urinary tract symptoms; I48.0 Paroxysmal atrial fibrillation; F17.200 Nicotine dependence, unspecified, uncomplicated; Z79.51 Long term (current) use of inhaled steroids; Z79.01 Long term (current) use of anticoagulants; Z79.899 Other long term (current) drug therapy; Z91.041 Radiographic dye allergy status; Z91.040 Latex allergy status
CPT/HCPCS: 36415; 74018; 80053; 82150; 83690; 85025; 96360; 99284

== ENCOUNTER 2019-04-27 14:56 | Emergency (ER) | payer MEDICARE, OTHER ==
[2019-04-27 15:05] VITALS: PULSE 89; RESP 18; TEMP 97.7
[2019-04-27] MEDS ORDERED: MAGNESIUM CITRATE 296 ML BOTTLE PO ONE (15:34)
[2019-04-27] MEDS: BISACODYL 10 MG SUPP RECTAL STA ×2 (15:43→16:02)
--- NOTE | 2019-04-27 15:55 | XR ---
EXAMINATION TYPE: XR KUB DATE OF EXAM: 04/27/2019 COMPARISON: April 19, 2019 HISTORY: Pain TECHNIQUE: Single supine KUB image of the abdomen is obtained FINDINGS: Small bowel demonstrates no evidence for dilatation or air fluid levels. Gas and fecal material is seen in non-distended colon. No convincing evidence for pneumoperitoneum. No unusual calcifications. The lung bases are clear. The osseous structures are intact. Vertebroplasty changes redemonstrated. IMPRESSION: 1. Overall nonobstructive bowel gas pattern.
[2019-04-27] MEDS ORDERED: BISACODYL 10 MG SUPP RECTAL STA (16:01)
--- NOTE | 2019-04-27 17:35 | ED ---
General Adult HPI - General Chief complaint: Abdominal Pain Stated complaint: no bowel movement Time Seen by Provider: 04/27/19 14:59 Source: patient Mode of arrival: ambulatory Limitations: no limitations - History of Present Illness Initial comments: This 74-year-old male presents with a complaint of constipation. He states that he did have a small bowel movement yesterday but otherwise no bowel movement for the last 1 week. He denies any abdominal pain. He has been taking an unknown stool softener. He denies any fevers, chills, nausea, or vomiting. He otherwise feels fine. He has had a long history of constipation and was just here a couple of weeks ago. He has an appointment to follow-up with gastroenterology in approximately 2 weeks. - Related Data Home Medications Medication Instructions Recorded Confirmed Tamsulosin HCl [Flomax] 0.8 mg PO HS 03/24/18 03/01/19 Budesonide-Formot 160-4.5 Mcg 2 puff INHALATION RT-BID 04/20/18 03/01/19 [Symbicort 160-4.5 Mcg Inhaler] Apixaban [Eliquis] 5 mg PO BID 09/14/18 03/01/19 Ipratropium-Albuterol Nebulize 3 ml INHALATION RT-Q4H 09/25/18 03/01/19 [Duoneb 0.5 mg-3 mg/3 ml Soln] Acetaminophen Tab [Tylenol] 1,000 mg PO Q6H PRN 02/04/19 03/01/19 Hydrocortisone Cream 1 applic TOPICAL BID PRN 02/04/19 03/01/19 [Hydrocortisone 1% Cream] Metoprolol Tartrate [Lopressor] 50 mg PO BID 02/04/19 03/01/19 Previous Rx's Medication Instructions Recorded Albuterol Inhaler [Ventolin Hfa 1 - 2 puff INHALATION RT-Q6H PRN 03/03/19 Inhaler] #1 puff Azithromycin [Zithromax] 500 mg PO DAILY #2 tab 03/03/19 Famotidine [Pepcid] 20 mg PO Q12HR #30 tab 03/03/19 Magnesium Hydroxide [Milk of 2,400 mg PO DAILY PRN #10 ml 03/03/19 Magnesia Concentrate] Polyethylene Glycol 3350 [Miralax] 17 gm PO DAILY PRN #10 powd.pack 03/03/19 Sennosides [Senokot] 8.6 mg PO BID PRN #15 tab 03/03/19 predniSONE 10 mg PO DIRECTED #30 tab 03/03/19 Albuterol Inhaler [Ventolin Hfa 1 - 2 puff INHALATION Q6HR PRN #1 03/27/19 Inhaler] inhaler predniSONE [Deltasone] 20 mg PO BID #8 tab 03/27/19 HYDROcodone/APAP 5-325MG [[place] 1 tab PO Q6HR PRN 3 Days #12 tab 03/30/19 5-325] Allergies Allergy/AdvReac Type Severity Reaction Status Date / Time Iodinated Contrast Media Allergy Rash/Hives Verified 04/27/19 15:01 [Iodinated Contrast- Oral and IV Dye] latex Allergy Rash/Hives Verified 04/27/19 15:01 Review of Systems ROS Statement: Those systems with pertinent positive or pertinent negative responses have been documented in the HPI. ROS Other: All systems not noted in ROS Statement are negative. Past Medical History Past Medical History: Atrial Fibrillation, COPD, Prostate Disorder Additional Past Medical History / Comment(s): Paroxysmal Afib, BPH History of Any Multi-Drug Resistant Organisms: None Reported Past Surgical History: No Surgical Hx Reported Additional Past Surgical History / Comment(s): Bilateral cataract removals-lens implants, colonoscopy, recent surgical procedure to the spine Mar 2019 Past Anesthesia/Blood Transfusion Reactions: No Reported Reaction Additional Past Anesthesia/Blood Transfusion Reaction / Comment(s): Has never received any blood transfusions. Past Psychological History: No Psychological Hx Reported Smoking Status: Current every day smoker Past Alcohol Use History: None Reported Past Drug Use History: None Reported - Past Family History Mother Family Medical History: AFIB, Dementia Father Family Medical History: Myocardial Infarction ([place]) Additional Family Medical History / Comment(s): in his 70's [place] General Exam - General Exam Comments Initial Comments: GENERAL: The patient is well nourished and well hydrated. VITAL SIGNS: Heart rate, blood pressure, respiratory rate reviewed as recorded in nurse's notes. EYES: Pupils reactive. Extraocular movements are intact. No conjunctival redness or drainage. ENT: No external masses or lesions. No nasal drainage. Pharynx clear; airway patent. NECK: Supple, no meningeal signs. Trachea midline. No masses or thyromegaly. HEART: Regular rate and rhythm. Good peripheral pulses. No peripheral edema. LUNGS/CHEST: Breath sounds clear and equal bilaterally. No rales, rhonchi, or wheezes. No retractions. ABDOMEN: Abdomen soft without tenderness or distention. No palpable masses or organomegaly. No peritoneal signs. EXTREMITIES: No cyanosis. No joint swelling. Normal muscle tone. NEUROLOGIC: Sensation is grossly intact. Cranial nerve exam reveals facial symmetry. SKIN: No rash or petechiae. Good skin turgor noted on palpation. PSYCHIATRIC: Alert. Appropriate behavior for age Limitations: no limitations Course Vital Signs 04/27/19 15:02 Temperature 97.7 F Pulse Rate 89 Respiratory 18 Rate Blood Pressure 135/86 O2 Sat by Pulse 97 Oximetry Medical Decision Making - Medical Decision Making The patient was seen and examined. All diagnostics were reviewed. He receives a soapsuds enema as well as some Dulcolax and magnesium citrate. He does produce a moderate size bowel movement and feels improved on recheck. The KUB does show some moderate constipation on my evaluation that was read out as normal per radiology. It is felt as though he would benefit from utilizing MiraLAX and Metamucil for home treatment. He understands and leaves in no distress. Disposition Clinical Impression: Constipation Disposition: HOME SELF-CARE Condition: Good Instructions (If sedation given, give patient instructions): Constipation (ED) Additional Instructions: Please take MiraLAX and Metamucil for her constipation. You can increase the MiraLAX to take up to 4 times a day if necessary. Is patient prescribed a controlled substance at d/c from ED?: No Referrals: Frankie Wall DO [Primary Care Provider] - 1-2 days Time of Disposition: 17:34
[2019-04-27 17:41] VITALS: BP 140/86
== END 2019-04-27 17:42 | disposition home or self-care (01) ==
LOC: EC 14:56
DX: K59.00 Constipation, unspecified (principal); I48.0 Paroxysmal atrial fibrillation; J44.9 Chronic obstructive pulmonary disease, unspecified; N40.0 Benign prostatic hyperplasia without lower urinary tract symptoms; F17.200 Nicotine dependence, unspecified, uncomplicated; Z91.040 Latex allergy status; Z91.041 Radiographic dye allergy status; Z79.01 Long term (current) use of anticoagulants; Z79.51 Long term (current) use of inhaled steroids; Z79.899 Other long term (current) drug therapy
CPT/HCPCS: 74018; 99284

== ENCOUNTER 2019-05-05 18:13 | Inpatient (IN) | payer MEDICARE, OTHER ==
[2019-05-05] MEDS ORDERED: methylPREDNISolone SOD SUCCI 125 MG/2 ML VIAL IV STA (18:58)
[2019-05-05] MEDS ORDERED: IPRATROPIUM 0.5 MG/2.5 ML NEBU INHALATION STA (18:58)
[2019-05-05] MEDS ORDERED: ALBUTEROL NEBULIZED 2.5 MG/3 ML INHALATION STA (18:58)
--- NOTE | 2019-05-05 19:07 | ED ---
General Adult HPI - General Chief complaint: Shortness of Breath Stated complaint: Shortness of breath Time Seen by Provider: 05/05/19 18:25 Source: patient, RN notes reviewed, old records reviewed Mode of arrival: ambulatory Limitations: no limitations - History of Present Illness Initial comments: This is a 74-year-old male who presents emergency department with past medical history significant for COPD. Patient continues to smoke. Patient states she's been having difficulty breathing worsening over the last 2 days. Patient states he has had no fever chills per patient denies any pain. Patient denies abdominal pain patient denies any chest pain patient denies any headache patient denies numbness weakness. - Related Data Home Medications Medication Instructions Recorded Confirmed Tamsulosin HCl [Flomax] 0.8 mg PO HS 03/24/18 03/01/19 Budesonide-Formot 160-4.5 Mcg 2 puff INHALATION RT-BID 04/20/18 03/01/19 [Symbicort 160-4.5 Mcg Inhaler] Apixaban [Eliquis] 5 mg PO BID 09/14/18 03/01/19 Ipratropium-Albuterol Nebulize 3 ml INHALATION RT-Q4H 09/25/18 03/01/19 [Duoneb 0.5 mg-3 mg/3 ml Soln] Acetaminophen Tab [Tylenol] 1,000 mg PO Q6H PRN 02/04/19 03/01/19 Hydrocortisone Cream 1 applic TOPICAL BID PRN 02/04/19 03/01/19 [Hydrocortisone 1% Cream] Metoprolol Tartrate [Lopressor] 50 mg PO BID 02/04/19 03/01/19 Previous Rx's Medication Instructions Recorded Albuterol Inhaler [Ventolin Hfa 1 - 2 puff INHALATION RT-Q6H PRN 03/03/19 Inhaler] #1 puff Azithromycin [Zithromax] 500 mg PO DAILY #2 tab 03/03/19 Famotidine [Pepcid] 20 mg PO Q12HR #30 tab 03/03/19 Magnesium Hydroxide [Milk of 2,400 mg PO DAILY PRN #10 ml 03/03/19 Magnesia Concentrate] Polyethylene Glycol 3350 [Miralax] 17 gm PO DAILY PRN #10 powd.pack 03/03/19 Sennosides [Senokot] 8.6 mg PO BID PRN #15 tab 03/03/19 predniSONE 10 mg PO DIRECTED #30 tab 03/03/19 Albuterol Inhaler [Ventolin Hfa 1 - 2 puff INHALATION Q6HR PRN #1 03/27/19 Inhaler] inhaler predniSONE [Deltasone] 20 mg PO BID #8 tab 03/27/19 HYDROcodone/APAP 5-325MG [[place] 1 tab PO Q6HR PRN 3 Days #12 tab 03/30/19 5-325] Allergies Allergy/AdvReac Type Severity Reaction Status Date / Time Iodinated Contrast Media Allergy Rash/Hives Verified 05/05/19 18:28 [Iodinated Contrast- Oral and IV Dye] latex Allergy Rash/Hives Verified 05/05/19 18:28 Review of Systems ROS Statement: Those systems with pertinent positive or pertinent negative responses have been documented in the HPI. ROS Other: All systems not noted in ROS Statement are negative. Past Medical History Past Medical History: Atrial Fibrillation, COPD, Prostate Disorder Additional Past Medical History / Comment(s): Paroxysmal Afib, BPH History of Any Multi-Drug Resistant Organisms: None Reported Past Surgical History: No Surgical Hx Reported, Back Surgery Additional Past Surgical History / Comment(s): Bilateral cataract removals-lens implants, colonoscopy, recent surgical procedure to the spine Mar 2019 Past Anesthesia/Blood Transfusion Reactions: No Reported Reaction Additional Past Anesthesia/Blood Transfusion Reaction / Comment(s): Has never received any blood transfusions. Past Psychological History: No Psychological Hx Reported Smoking Status: Current every day smoker Past Alcohol Use History: None Reported Past Drug Use History: None Reported - Past Family History Mother Family Medical History: AFIB, Dementia Father Family Medical History: Myocardial Infarction ([place]) Additional Family Medical History / Comment(s): in his 70's from [place] General Exam - General Exam Comments Initial Comments: GENERAL: Patient is well-developed and well-nourished. Patient is nontoxic and well- hydrated and is in moderate distress. ENT: Neck is soft and supple. No significant lymphadenopathy is noted. Oropharynx is clear. Moist mucous membranes. Neck has full range of motion without eliciting any pain. EYES: The sclera were anicteric and conjunctiva were pink and moist. Extraocular movements were intact and pupils were equal round and reactive to light. Eyelids were unremarkable. PULMONARY: She has diffuse expiratory wheezing CARDIOVASCULAR: There is a regular rate and rhythm without any murmurs gallops or rubs. ABDOMEN: Soft and nontender with normal bowel sounds. SKIN: Skin is clear with no lesions or rashes and otherwise unremarkable. NEUROLOGIC: Patient is alert and oriented x3. Cranial nerves II through XII are grossly intact. Motor and sensory are also intact. Normal speech, volume and content. Symmetrical smile. MUSCULOSKELETAL: Normal extremities with adequate strength and full range of motion. No lower extremity swelling or edema. No calf tenderness. LYMPHATICS: No significant lymphadenopathy is noted PSYCHIATRIC: Normal psychiatric evaluation. Limitations: no limitations Course Vital Signs 05/05/19 05/05/19 05/05/19 18:24 19:08 19:29 Temperature 97.7 F Pulse Rate 111 H 114 H 112 H Respiratory 24 Rate Blood Pressure 152/80 O2 Sat by Pulse 93 L Oximetry Medical Decision Making - Medical Decision Making EKG shows sinus tachycardia at 113 bpm CO interval 148 QRS 70 QT interval 334 QTC is 458. Patient's EKG shows no ST segment elevation or depression. Chest x-ray shows no acute abnormality. I gave the patient 3 breathing treatments and I will back and reevaluated the patient he was still having wheezing and was short of breath. I did give the patient one dose of antibiotics because he was complaining of a cough and he has significant COPD I spoke with Dr. Paz he agreed to admit the patient admitted the patient wrote admitting orders. Patient also received a dose of steroids in the emergency department I will continue the treatments and steroids on the floor. - Lab Data Result diagrams: 05/05/19 19:00 05/05/19 19:00 Lab Results 05/05/19 05/05/19 05/05/19 Range/Units 19:00 19:00 19:00 WBC 8.4 (3.8-10.6) k/uL RBC 4.25 L (4.30-5.90) m/uL Hgb 13.9 (13.0-17.5) gm/dL Hct 41.0 (39.0-53.0) % MCV 96.4 (80.0-100.0) fL MCH 32.7 (25.0-35.0) pg MCHC 33.9 (31.0-37.0) g/dL RDW 13.2 (11.5-15.5) % Plt Count 251 (150-450) k/uL Neutrophils % 58 % Lymphocytes % 18 % Monocytes % 8 % Eosinophils % 11 % Basophils % 1 % Neutrophils # 4.9 (1.3-7.7) k/uL Lymphocytes # 1.6 (1.0-4.8) k/uL Monocytes # 0.7 (0-1.0) k/uL Eosinophils # 1.0 H (0-0.7) k/uL Basophils # 0.1 (0-0.2) k/uL PT 10.3 (9.0-12.0) sec INR 1.0 (<1.2) APTT 22.8 (22.0-30.0) sec Sodium 136 L (137-145) mmol/L Potassium 4.4 (3.5-5.1) mmol/L Chloride 100 (98-107) mmol/L Carbon Dioxide 28 (22-30) mmol/L Anion Gap 8 mmol/L BUN 19 (9-20) mg/dL Creatinine 0.81 (0.66-1.25) mg/dL Est GFR (CKD-EPI)AfAm >90 (>60 ml/min/1.73 sqM) Est GFR (CKD-EPI)NonAf 88 (>60 ml/min/1.73 sqM) Glucose 97 (74-99) mg/dL Plasma Lactic Acid Santi (0.7-2.0) mmol/L Calcium 9.8 (8.4-10.2) mg/dL Total Bilirubin 0.2 (0.2-1.3) mg/dL AST 19 (17-59) U/L ALT 13 (4-49) U/L Alkaline Phosphatase 98 (38-126) U/L Troponin I (0.000-0.034) ng/mL NT-Pro-B Natriuret Pep pg/mL Total Protein 6.7 (6.3-8.2) g/dL Albumin 4.2 (3.5-5.0) g/dL Influenza Type A RNA (Not Detectd) Influenza Type B (PCR) (Not Detectd) 05/05/19 05/05/19 05/05/19 Range/Units 19:00 19:00 19:00 WBC (3.8-10.6) k/uL RBC (4.30-5.90) m/uL Hgb (13.0-17.5) gm/dL Hct (39.0-53.0) % MCV (80.0-100.0) fL MCH (25.0-35.0) pg MCHC (31.0-37.0) g/dL RDW (11.5-15.5) % Plt Count (150-450) k/uL Neutrophils % % Lymphocytes % % Monocytes % % Eosinophils % % Basophils % % Neutrophils # (1.3-7.7) k/uL Lymphocytes # (1.0-4.8) k/uL Monocytes # (0-1.0) k/uL Eosinophils # (0-0.7) k/uL Basophils # (0-0.2) k/uL PT (9.0-12.0) sec INR (<1.2) APTT (22.0-30.0) sec Sodium (137-145) mmol/L Potassium (3.5-5.1) mmol/L Chloride (98-107) mmol/L Carbon Dioxide (22-30) mmol/L Anion Gap mmol/L BUN (9-20) mg/dL Creatinine (0.66-1.25) mg/dL Est GFR (CKD-EPI)AfAm (>60 ml/min/1.73 sqM) Est GFR (CKD-EPI)NonAf (>60 ml/min/1.73 sqM) Glucose (74-99) mg/dL Plasma Lactic Acid Santi (0.7-2.0) mmol/L Calcium (8.4-10.2) mg/dL Total Bilirubin (0.2-1.3) mg/dL AST (17-59) U/L ALT (4-49) U/L Alkaline Phosphatase (38-126) U/L Troponin I <0.012 (0.000-0.034) ng/mL NT-Pro-B Natriuret Pep 29 pg/mL Total Protein (6.3-8.2) g/dL Albumin (3.5-5.0) g/dL Influenza Type A RNA Not Detected (Not Detectd) Influenza Type B (PCR) Not Detected (Not Detectd) 05/05/19 Range/Units 19:15 WBC (3.8-10.6) k/uL RBC (4.30-5.90) m/uL Hgb (13.0-17.5) gm/dL Hct (39.0-53.0) % MCV (80.0-100.0) fL MCH (25.0-35.0) pg MCHC (31.0-37.0) g/dL RDW (11.5-15.5) % Plt Count (150-450) k/uL Neutrophils % % Lymphocytes % % Monocytes % % Eosinophils % % Basophils % % Neutrophils # (1.3-7.7) k/uL Lymphocytes # (1.0-4.8) k/uL Monocytes # (0-1.0) k/uL Eosinophils # (0-0.7) k/uL Basophils # (0-0.2) k/uL PT (9.0-12.0) sec INR (<1.2) APTT (22.0-30.0) sec Sodium (137-145) mmol/L Potassium (3.5-5.1) mmol/L Chloride (98-107) mmol/L Carbon Dioxide (22-30) mmol/L Anion Gap mmol/L BUN (9-20) mg/dL Creatinine (0.66-1.25) mg/dL Est GFR (CKD-EPI)AfAm (>60 ml/min/1.73 sqM) Est GFR (CKD-EPI)NonAf (>60 ml/min/1.73 sqM) Glucose (74-99) mg/dL Plasma Lactic Acid Santi 1.2 (0.7-2.0) mmol/L Calcium (8.4-10.2) mg/dL Total Bilirubin (0.2-1.3) mg/dL AST (17-59) U/L ALT (4-49) U/L Alkaline Phosphatase (38-126) U/L Troponin I (0.000-0.034) ng/mL NT-Pro-B Natriuret Pep pg/mL Total Protein (6.3-8.2) g/dL Albumin (3.5-5.0) g/dL Influenza Type A RNA (Not Detectd) Influenza Type B (PCR) (Not Detectd) Critical Care Time Critical Care Time: Yes Total Critical Care Time: 35 Disposition Clinical Impression: COPD with acute exacerbation Disposition: ADMITTED IP TO THIS HOSP Referrals: Frankie Wall DO [Primary Care Provider] - 1-2 days Time of Disposition: 20:26
[2019-05-05 19:13] LABS: Basophils # (A) 0.1 k/uL (0-0.2); Basophils % (A) 1 %; Eosinophils % (A) 11 %; HGB 13.9 gm/dL (13.0-17.5); Lymphocytes # (A) 1.6 k/uL (1.0-4.8); Lymphocytes % (A) 18 %; MCH 32.7 pg (25.0-35.0); MCHC 33.9 g/dL (31.0-37.0); MCV 96.4 fL (80.0-100.0); Mean Platelet Volume 7.6; Monocytes # (A) 0.7 k/uL (0-1.0); Monocytes % (A) 8 %; Neutrophils # (A) 4.9 k/uL (1.3-7.7); Neutrophils % (A) 58 %; Platelet Count 251 k/uL (150-450); RBC 4.25 m/uL (4.30-5.90); RDW 13.2 % (11.5-15.5); WBC 8.4 k/uL (3.8-10.6)
[2019-05-05 19:22] LABS: ALT 13 U/L (4-49); AST 19 U/L (17-59); African American GFR (CKD) >90 (>60 ml/min/1.73 sqM); Albumin 4.2 g/dL (3.5-5.0); Alkaline Phosphatase 98 U/L (38-126); Anion Gap 8 mmol/L; Blood Urea Nitrogen 19 mg/dL (9-20); Calcium 9.8 mg/dL (8.4-10.2); Carbon Dioxide 28 mmol/L (22-30); Chloride 100 mmol/L (98-107); Glucose 97 mg/dL (74-99); Non-African American GFR(CKD) 88 (>60 ml/min/1.73 sqM); Partial Thromboplastin Time 22.8 sec (22.0-30.0); Potassium 4.4 mmol/L (3.5-5.1); Prothrombin Time 10.3 sec (9.0-12.0); Sodium 136 mmol/L (137-145); Total Bilirubin 0.2 mg/dL (0.2-1.3); Total Protein 6.7 g/dL (6.3-8.2)
--- NOTE | 2019-05-05 20:29 | XR ---
EXAMINATION TYPE: XR chest 2V DATE OF EXAM: 05/05/2019 COMPARISON: 02/27/2019 HISTORY: COPD. Short of breath. TECHNIQUE: FINDINGS: There is mild coarsening of the interstitial markings. There is vertebroplasty in the lower thoracic spine. There is no pleural effusion. There is no heart failure. IMPRESSION: Pulmonary interstitial fibrotic mild changes stable compared to old exam. No heart failur e.
[2019-05-05] MEDS ORDERED: ACETAMINOPHEN TAB 500 MG TAB PO PRN (22:40)
[2019-05-05] MEDS: METOPROLOL TARTRATE 50 MG TAB PO SCH (23:07)
[2019-05-05] MEDS: TAMSULOSIN 0.4 MG CAP.ER.24H PO SCH (23:08)
[2019-05-05] MEDS: APIXABAN 5 MG TAB PO SCH (23:08)
[2019-05-05] MEDS: FAMOTIDINE 20 MG TAB PO SCH (23:08)
[2019-05-06] MEDS: methylPREDNISolone SOD SUCCI 125 MG/2 ML VIAL IV SCH ×5 (00:15→23:10)
[2019-05-06] MEDS: IPRATROPIUM-ALBUTEROL 3 ML NEB INHALATION PRN ×3 (01:46→23:29)
[2019-05-06 06:56] LABS: Glucose,Whole Blood 158 mg/dL (75-99)
[2019-05-06] MEDS: APIXABAN 5 MG TAB PO SCH ×2 (07:51→21:32)
[2019-05-06] MEDS: METOPROLOL TARTRATE 50 MG TAB PO SCH ×2 (07:51→21:32)
[2019-05-06] MEDS: INSULIN ASPART (NovoLOG) 100 UNIT/ML VIAL SQ SCH ×4 (07:51→21:33)
[2019-05-06] MEDS: FAMOTIDINE 20 MG TAB PO SCH ×2 (07:51→21:32)
[2019-05-06] MEDS: IPRATROPIUM-ALBUTEROL 3 ML NEB INHALATION SCH ×4 (09:23→19:42)
[2019-05-06 11:39] LABS: Glucose,Whole Blood 163 mg/dL (75-99)
--- NOTE | 2019-05-06 12:14 | P.HPIM ---
History of Present Illness This is a pleasant 74 years old male with past medical history of COPD, benign prostatic hypertrophy and paroxysmal atrial fibrillation. Presents with dyspnea and worsening cough and phlegm for 2 days duration, patient states that his femoral is patent clear white, he denies chest pain, he follows up with Dr. Chavez group today, he admits to smoking but he could not verify how much, he denies alcohol or illicit tracts No home oxygen or steroids. 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 CBC is unremarkable. INR 1.0. Serum creatinine is normal 0.8, sodium 136, potassium 4.4, liver enzymes not elevated, troponin is negative physical 0.012. Influenza is negative. EKG shows sinus tachycardia at [address] T changes, QTC is 485.chest x-ray: No acute process, no heart failure Emergency room he received albuterol and nebulizer treatments, also started on Solu-Medrol. Review of Systems CONSTITUTIONAL: No fever, no malaise, no fatigue. HEENT: No recent visual problems or hearing problems. Denied any sore throat. CARDIOVASCULAR: No orthopnea, PND, no palpitations, no syncope. PULMONARY: no hemoptysis. GASTROINTESTINAL: No diarrhea, no nausea, no vomiting, no abdominal pain. Norm oactive bowel sounds. NEUROLOGICAL: No headaches, no weakness, no numbness. HEMATOLOGICAL: Denies any bleeding or petechiae. GENITOURINARY: Denies any burning micturition, frequency, or urgency. MUSCULOSKELETAL/RHEUMATOLOGICAL: Denies any joint pain, swelling, or any muscle pain. ENDOCRINE: Denies any polyuria or polydipsia. Past Medical History Past Medical History: Atrial Fibrillation, COPD, Prostate Disorder Additional Past Medical History / Comment(s): Paroxysmal Afib, BPH History of Any Multi-Drug Resistant Organisms: None Reported Past Surgical History: No Surgical Hx Reported, Back Surgery Additional Past Surgical History / Comment(s): Bilateral cataract removals-lens implants, colonoscopy, recent surgical procedure to the spine Mar 2019 Past Anesthesia/Blood Transfusion Reactions: No Reported Reaction Additional Past Anesthesia/Blood Transfusion Reaction / Comment(s): Has never received any blood transfusions. Past Psychological History: No Psychological Hx Reported Additional Psychological History / Comment(s): Pt resides with his spouse and their son (Bryn). They live in a downstairs apartment. Pt manages his own medications. He has a nebulizer.His son cooks and drives pt to [employer]. Smoking Status: Current every day smoker Past Alcohol Use History: None Reported Additional Past Alcohol Use History / Comment(s): Pt started smoking age [age]) got up to 5 ppd for many years then cut down to 3 ppd. Pt. states he currently smokes one pack a day Past Drug Use History: None Reported - Past Family History Mother Family Medical History: AFIB, Dementia Father Family Medical History: Myocardial Infarction ([place]) Additional Family Medical History / Comment(s): in his 70's [place] Medications and Allergies Home Medications Medication Instructions Recorded Confirmed Type Tamsulosin HCl [Flomax] 0.8 mg PO HS 03/24/18 05/05/19 History Budesonide-Formot 160-4.5 Mcg 2 puff INHALATION RT-BID 04/20/18 05/05/19 History [Symbicort 160-4.5 Mcg Inhaler] Apixaban [Eliquis] 5 mg PO BID 09/14/18 05/05/19 History Metoprolol Tartrate [Lopressor] 50 mg PO BID 02/04/19 05/05/19 History Albuterol Inhaler [Ventolin Hfa 1 - 2 puff INHALATION RT-Q6H PRN 03/03/19 05/05/19 Rx Inhaler] #1 puff Famotidine [Pepcid] 20 mg PO Q12HR #30 tab 03/03/19 05/05/19 Rx Ergocalciferol [Vitamin D2] 50,000 unit PO Q7D 05/05/19 05/05/19 History Finasteride [Proscar] 5 mg PO DAILY 05/05/19 05/05/19 History HYDROcodone/APAP 5-325MG [[place] 1 - 2 tab PO Q6H PRN 05/05/19 05/05/19 History 5-325] Ipratropium-Albuterol Nebulize 3 ml INHALATION RT-Q4H PRN 05/05/19 05/05/19 History [Duoneb 0.5 mg-3 mg/3 ml Soln] Lidocaine 5% Patch [Lidoderm] 1 patch TRANSDERM DAILY 05/05/19 05/05/19 History Allergies Allergy/AdvReac Type Severity Reaction Status Date / Time Iodinated Contrast Media Allergy Rash/Hives Verified 05/05/19 18:28 [Iodinated Contrast- Oral and IV Dye] latex Allergy Rash/Hives Verified 05/05/19 18:28 Physical Exam Vitals: Vital Signs Temp Pulse Pulse Resp BP BP Pulse Ox 05/06/19 09:33 96 05/06/19 09:23 92 05/06/19 07:00 97.9 F 93 18 118/71 92 L 05/06/19 04:10 100 05/06/19 04:02 104 H 05/06/19 02:10 97.7 F 86 20 114/72 96 05/06/19 01:58 104 H 05/06/19 01:46 104 H 05/05/19 23:09 16 05/05/19 22:05 16 05/05/19 21:30 97.7 F 99 112/66 92 L 05/05/19 21:00 97.9 F 104 H 20 121/73 95 05/05/19 20:46 97.9 F 102 H 20 117/74 95 05/05/19 19:29 112 H 05/05/19 19:08 114 H 05/05/19 18:24 97.7 F 111 H 24 152/80 93 L Intake and Output 05/05/19 05/06/19 05/06/19 22:59 06:59 14:59 Intake Total 450 250 Balance 450 250 Intake: Oral 450 250 Other: # Voids 1 Weight 70.398 kg GENERAL: The patient is alert and oriented x3, not in any acute distress. Well developed, well nourished. HEENT: Pupils are round and equally reacting to light. EOMI. No scleral icterus. No conjunctival pallor. Normocephalic, atraumatic. No pharyngeal erythema. No thyromegaly. CARDIOVASCULAR: S1 and S2 present. No murmurs, rubs, or gallops. -PULMONARY: Chest is clear to auscultation, no wheezing or crackles. Limited air entry on both sides ABDOMEN: Soft, nontender, nondistended, normoactive bowel sounds. No palpable organomegaly. MUSCULOSKELETAL: No joint swelling or deformity. EXTREMITIES: No cyanosis, clubbing, or pedal edema. NEUROLOGICAL: Gross neurological examination did not reveal any focal deficits. SKIN: No rashes. No petechiae Results CBC & Chem 7: 05/05/19 19:00 05/05/19 19:00 Labs: Abnormal Lab Results - Last 24 Hours (Table) 05/05/19 05/05/19 05/06/19 Range/Units 19:00 19:00 06:55 RBC 4.25 L (4.30-5.90) m/uL Eosinophils # 1.0 H (0-0.7) k/uL Sodium 136 L (137-145) mmol/L POC Glucose (mg/dL) 158 H (75-99) mg/dL Thrombosis Risk Factor Assmnt - Choose All That Apply Any of the Below Risk Factors Present?: Yes Each Factor Represents 1 point: Medical pt on bed rest Each Risk Factor Represents 2 Points: Age 61-74 years Thrombosis Risk Factor Assessment Total Risk Factor Score: 3 Thrombosis Risk Factor Assessment Level: Moderate Risk Assessment and Plan Assessment: Acute COPD exacerbation Paroxysmal atrial fibrillation, coronary Eliquis Benign prostatic hypertrophy. Plan: This is a pleasant 74 years old male who presents with acute COPD exacerbation. Continue with steroids, bronchodilator and oxygen as needed. Labs and medication were reviewed.. Continue same treatment. Continue with symptomatic treatment. Resume home medication. Monitor lytes and vitals. DVT and GI prophylaxis. Further recommendations of the clinical course of the patie nt DVT prophylaxis: Eliquis GI Prophylaxis: Pepcid PT/OT: Pending Prognosis is guarded
[2019-05-06 16:46] LABS: Glucose,Whole Blood 236 mg/dL (75-99)
[2019-05-06 21:19] LABS: Glucose,Whole Blood 214 mg/dL (75-99)
[2019-05-06] MEDS: TAMSULOSIN 0.4 MG CAP.ER.24H PO SCH (21:32)
[2019-05-07 02:49] VITALS: TEMP 97.8
[2019-05-07] MEDS: IPRATROPIUM-ALBUTEROL 3 ML NEB INHALATION PRN (04:43)
[2019-05-07] MEDS: methylPREDNISolone SOD SUCCI 125 MG/2 ML VIAL IV SCH ×2 (05:33→11:40)
[2019-05-07 07:18] LABS: Glucose,Whole Blood 139 mg/dL (75-99)
[2019-05-07] MEDS: IPRATROPIUM-ALBUTEROL 3 ML NEB INHALATION SCH ×2 (07:30→11:19)
[2019-05-07 08:08] VITALS: BP 117/71; RESP 20
[2019-05-07] MEDS: METOPROLOL TARTRATE 50 MG TAB PO SCH (08:09)
[2019-05-07] MEDS: FAMOTIDINE 20 MG TAB PO SCH (08:09)
[2019-05-07] MEDS: APIXABAN 5 MG TAB PO SCH (08:09)
[2019-05-07] MEDS: INSULIN ASPART (NovoLOG) 100 UNIT/ML VIAL SQ SCH (08:09)
[2019-05-07 11:30] VITALS: PULSE 92
--- NOTE | 2019-05-07 11:35 | P.CNPUL ---
History of Present Illness Consult date: 05/07/19 Reason for consult: COPD History of present illness: This is a 74-year-old male patient with known history of moderately severe COPD with FEV1 of 64% of predicted maintained on Symbicort on outpatient basis utilizes albuterol updrafts when necessary utilizes Ventolin when necessary. He is smoking 1 pack of cigarettes a day. He has had previous hospitalization for COPD exacerbation. During this current admission, the patient came in with increased dyspnea cough chest tightness and wheezing typically of an underlying COPD exacerbation. His chest x-ray was free of any acute pulmonary infiltrates. Influenza screen was negative. No significant leukocytosis. He is known to have chronic atrial fibrillation. He has BPH and acid reflux and he also has a solitary pulmonary nodule in the right upper lobe that was identified on a CAT scan of the chest that was done previously measuring 7 mm in size and this was further worked up by PET scan that showed no evidence of any metabolic activity in the right upper lobe. The patient is eager to go home as the patient's has been hospitalized for seizure activity and [place]. Review of Systems CONSTITUTIONAL: Denies any recent significant weight loss or weight gain. EYES: Denies change in vision. EARS, NOSE, MOUTH, THROAT: Denies headaches, denies sore throat. CARDIOVASCULAR: Denies chest pain, palpitations or syncopal episodes. RESPIRATORY: Positive for shortness of breath, cough, congestion or hemoptysis. GASTROINTESTINAL: Denies change in appetite, denies abdominal pain GENITOURINARY: Denies hematuria, denies infections. MUSKULOSKELETAL: Denies pain, denies swelling. INTEGUMENTARY: Denies rash, denies eczema. NEUROLOGICAL: Denies recent memory loss, no recent seizure activity. PSYCHIATRIC: Denies anxiety, denies depression. HEMATOLOGIC/LYMPHATIC: Denies anemia, denies enlarged lymph nodes. Past Medical History Past Medical History: Atrial Fibrillation, COPD, Prostate Disorder Additional Past Medical History / Comment(s): Paroxysmal Afib, BPH History of Any Multi-Drug Resistant Organisms: None Reported Past Surgical History: No Surgical Hx Reported, Back Surgery Additional Past Surgical History / Comment(s): Bilateral cataract removals-lens implants, colonoscopy, recent surgical procedure to the spine Mar 2019 Past Anesthesia/Blood Transfusion Reactions: No Reported Reaction Additional Past Anesthesia/Blood Transfusion Reaction / Comment(s): Has never received any blood transfusions. Past Psychological History: No Psychological Hx Reported Additional Psychological History / Comment(s): Pt resides with his spouse and their son (Bryn). They live in a downstairs apartment. Pt manages his own medications. He has a nebulizer.His son cooks and drives pt to [employer]. Smoking Status: Current every day smoker Past Alcohol Use History: None Reported Additional Past Alcohol Use History / Comment(s): Pt started smoking age [age]) got up to 5 ppd for many years then cut down to 3 ppd. Pt. states he currently smokes one pack a day Past Drug Use History: None Reported - Past Family History Mother Family Medical History: AFIB, Dementia Father Family Medical History: Myocardial Infarction ([place]) Additional Family Medical History / Comment(s): in his 70's [place] Medications and Allergies Home Medications Medication Instructions Recorded Confirmed Type Tamsulosin HCl [Flomax] 0.8 mg PO HS 03/24/18 05/05/19 History Budesonide-Formot 160-4.5 Mcg 2 puff INHALATION RT-BID 04/20/18 05/05/19 History [Symbicort 160-4.5 Mcg Inhaler] Apixaban [Eliquis] 5 mg PO BID 09/14/18 05/05/19 History Metoprolol Tartrate [Lopressor] 50 mg PO BID 02/04/19 05/05/19 History Albuterol Inhaler [Ventolin Hfa 1 - 2 puff INHALATION RT-Q6H PRN 03/03/19 05/05/19 Rx Inhaler] #1 puff Famotidine [Pepcid] 20 mg PO Q12HR #30 tab 03/03/19 05/05/19 Rx Ergocalciferol [Vitamin D2 50,000 unit PO Q7D 05/05/19 05/05/19 History (DRISDOL)] Finasteride [Proscar] 5 mg PO DAILY 05/05/19 05/05/19 History HYDROcodone/APAP 5-325MG [[place] 1 - 2 tab PO Q6H PRN 05/05/19 05/05/19 History 5-325] Ipratropium-Albuterol Nebulize 3 ml INHALATION RT-Q4H PRN 05/05/19 05/05/19 History [Duoneb 0.5 mg-3 mg/3 ml Soln] Lidocaine 5% Patch [Lidoderm 5% 1 patch TRANSDERM DAILY 05/05/19 05/05/19 History Patch] Umeclidinium [place] [Incruse 1 puff INHALATION DAILY 30 Days #1 05/07/19 Rx Ellipta] device predniSONE 0 mg PO DIRECTED #40 tab 05/07/19 Rx Allergies Allergy/AdvReac Type Severity Reaction Status Date / Time Iodinated Contrast Media Allergy Rash/Hives Verified 05/05/19 18:28 [Iodinated Contrast- Oral and IV Dye] latex Allergy Rash/Hives Verified 05/05/19 18:28 Physical Exam Vitals: Vital Signs Temp Pulse Pulse Resp BP BP Pulse Ox 05/07/19 11:30 92 05/07/19 11:20 96 05/07/19 08:07 97.8 F 97 20 117/71 99 05/07/19 07:45 88 05/07/19 07:32 92 05/07/19 04:56 96 05/07/19 04:43 88 05/07/19 01:40 97.8 F 67 19 99/61 95 05/06/19 23:42 88 05/06/19 23:29 100 05/06/19 19:53 92 05/06/19 19:42 103 H 93 L 05/06/19 18:30 97.7 F 102 H 18 106/61 93 L 05/06/19 16:51 96 05/06/19 16:39 96 05/06/19 14:25 97.7 F 100 18 122/70 92 L 05/06/19 13:17 100 05/06/19 13:07 100 Intake and Output 05/06/19 05/07/19 05/07/19 22:59 06:59 14:59 Intake Total 400 296 Balance 400 296 Intake: Oral 400 296 Other: Voiding Method Toilet Toilet Toilet Urinal Urinal Urinal # Voids 1 3 GENERAL EXAM: Pleasant 74-year-old gentleman. Alert, active, comfortable in no apparent distress. HEAD: Normocephalic. EYES: Normal reaction of pupils, equal size. NOSE: Clear with pink turbinates. THROAT: No erythema or exudates. NECK: No masses, no JVD. CHEST: No chest wall deformity. LUNGS: Equal air entry with bilateral end expiratory wheeze, diminished CVS: S1 and S2 normal with no audible murmur, regular rhythm. ABDOMEN: No hepatosplenomegaly, normal bowel sounds, no guarding or rigidity. SPINE: No scoliosis or deformity SKIN: No rashes CENTRAL NERVOUS SYSTEM: No focal deficits, tone is normal in all 4 extremities. EXTREMITIES: There is no peripheral edema. No clubbing, no cyanosis. Peripheral pulses are intact. Results - Laboratory Findings CBC and BMP: 05/05/19 19:00 05/05/19 19:00 PT/INR, D-dimer PT 10.3 sec (9.0-12.0) 05/05/19 19:00 INR 1.0 (<1.2) 05/05/19 19:00 Abnormal lab findings: Abnormal Labs 05/05/19 05/05/19 05/06/19 19:00 19:00 06:55 RBC 4.25 L Eosinophils # 1.0 H Sodium 136 L POC Glucose (mg/dL) 158 H 05/06/19 05/06/19 05/06/19 11:38 16:44 21:17 RBC Eosinophils # Sodium POC Glucose (mg/dL) 163 H 236 H 214 H 05/07/19 07:17 RBC Eosinophils # Sodium POC Glucose (mg/dL) 139 H - Diagnostic Findings Chest x-ray: image reviewed Assessment and Plan Plan: #1 Acute exacerbation of chronic obstructive pulmonary disease in a patient with FEV1 value 53% of predicted. The chest x-ray is free of any acute pulmonary infiltrates. The patient is a maintained on Symbicort on outpatient basis. He continues to smoke 1 pack of cigarettes a day. Influenza screen is negative. He is eager for discharge as the patient's has been hospitalized elsewhere for seizure activity. #2 Chronic and ongoing tobacco dependence of greater than 60 years. #3 Recent admissions for COPD. #4 Pulmonary nodules with negative PET scan. #5 chronic shortness of breath secondary to above #6 Hypertension. #7 History of paroxysmal atrial fibrillation anticoagulated with Eliquis. #8 Benign prostatic hyperplasia, on Flomax. Plan Smoking cessation counseling Prednisone burst taper Continue Symbicort 160/4.52 puffs twice a day Add Incruse one inhalation a day Ventolin rescue inhaler Albuterol solution via the nebulizer are necessary basis Follow-up in the office and the patient typically follows up on a regular basis regarding his COPD. Therefore discharged from the pulmonary standpoint.
--- NOTE | 2019-05-07 11:41 | P.DS ---
Providers Date of admission: 05/07/19 08:36 Attending physician: Augusta Paz Consults: 05/06/19 16:34 Consult Physician Urgent Consulting Provider: Gregg Yang Consult Reason/Comments: copd Do you want consulting provider notified?: Yes Primary care physician: Frankie Wall [facility] Course: Diagnoses: Acute COPD exacerbation Paroxysmal atrial fibrillation, coronary Eliquis Benign prostatic hypertrophy. Hospital course: This is a pleasant 74 years old male with past medical history of COPD, benign prostatic hypertrophy and paroxysmal atrial fibrillation. Presents with dyspnea and worsening cough and phlegm for 2 days duration, patient states that his femoral is patent clear white, he denies chest pain, he follows up with Dr. Chavez group today, he admits to smoking but he could not verify how much, he denies alcohol or illicit tracts No home oxygen or steroids. patient was admitted with acute COPD exacerbation, was treated with steroids and bronchodilators, patient showed interval improvement, patient is missing by office chair assembler and cleared him for discharge. Patient was nauseous to be discharged today. No other complaints, no chest pain, no abdomen pain or nausea vomiting, no change in urine or bowel habits. No fever. Patient states that it is not going to be discharged today his going to signed leaving AMA because he is worried about his who was in the hospital at [facility] Problems and management plan were discussed with the patient and he verbalized understanding and acceptance Patient was found stable and can be discharged home however he needs follow-up as an outpatient. Patient was instructed to follow up with PCP Dr. Duke cortez one week and his office chair assembler Dr. Yang in 1-2 weeks and patient agrees, he wants to make his own appointments Gen: patient is a AAOx3, no distress CVS: S1-S2, RRR, no murmur Lungs: B/L CTA, no wheezing Abdomen: soft, no distention, no tenderness, positive bowel sounds Extremity: no leg edema or induration Time spent more than 35 minutes Plan - Discharge Summary Discharge Rx Participant: Yes New Discharge Prescriptions: New predniSONE 0 mg PO DIRECTED #40 tab Umeclidinium [place] [Incruse Ellipta] 1 puff INHALATION DAILY 30 Days #1 device Continue Tamsulosin HCl [Flomax] 0.8 mg PO HS Budesonide-Formot 160-4.5 Mcg [Symbicort 160-4.5 Mcg Inhaler] 2 puff INHALATION RT-BID Apixaban [Eliquis] 5 mg PO BID Metoprolol Tartrate [Lopressor] 50 mg PO BID Famotidine [Pepcid] 20 mg PO Q12HR #30 tab Albuterol Inhaler [Ventolin Hfa Inhaler] 1 - 2 puff INHALATION RT-Q6H PRN #1 puff PRN Reason: Shortness Of Breath Lidocaine 5% Patch [Lidoderm 5% Patch] 1 patch TRANSDERM DAILY Ipratropium-Albuterol Nebulize [Duoneb 0.5 mg-3 mg/3 ml Soln] 3 ml INHALATION RT-Q4H PRN PRN Reason: Shortness Of Breath HYDROcodone/APAP 5-325MG [[place] 5-325] 1 - 2 tab PO Q6H PRN PRN Reason: Pain Finasteride [Proscar] 5 mg PO DAILY Ergocalciferol [Vitamin D2 (DRISDOL)] 50,000 unit PO Q7D Discharge Medication List Tamsulosin HCl [Flomax] 0.8 mg PO HS 03/24/18 [History] Budesonide-Formot 160-4.5 Mcg [Symbicort 160-4.5 Mcg Inhaler] 2 puff INHALATION RT-BID 04/20/18 [History] Apixaban [Eliquis] 5 mg PO BID 09/14/18 [History] Metoprolol Tartrate [Lopressor] 50 mg PO BID 02/04/19 [History] Albuterol Inhaler [Ventolin Hfa Inhaler] 1 - 2 puff INHALATION RT-Q6H PRN #1 puff 03/03/19 [Rx] Famotidine [Pepcid] 20 mg PO Q12HR #30 tab 03/03/19 [Rx] Ergocalciferol [Vitamin D2 (DRISDOL)] 50,000 unit PO Q7D 05/05/19 [History] Finasteride [Proscar] 5 mg PO DAILY 05/05/19 [History] HYDROcodone/APAP 5-325MG [[place] 5-325] 1 - 2 tab PO Q6H PRN 05/05/19 [History] Ipratropium-Albuterol Nebulize [Duoneb 0.5 mg-3 mg/3 ml Soln] 3 ml INHALATION RT-Q4H PRN 05/05/19 [History] Lidocaine 5% Patch [Lidoderm 5% Patch] 1 patch TRANSDERM DAILY 05/05/19 [History] Umeclidinium [place] [Incruse Ellipta] 1 puff INHALATION DAILY 30 Days #1 device 05/07/19 [Rx] predniSONE 0 mg PO DIRECTED #40 tab 05/07/19 [Rx] Follow up Appointment(s)/Referral(s): Frankie Wall DO [Primary Care Provider] - 05/11/19 9:20 am ([facility] [facility]) Gregg Yang DO [Doctor of Osteopathic Medicine] - 1 Week Discharge Disposition: HOME SELF-CARE
== END 2019-05-07 12:25 | disposition home or self-care (01) | DRG 192 ==
LOC: EC 18:13 → 4SSUR 20:29 → OBSVTOIN 05-07 08:36
PROVIDERS: ADMIT Hospitalist; ATTEND Hospitalist
DX: J44.1 Chronic obstructive pulmonary disease with (acute) exacerbation (principal); F17.210 Nicotine dependence, cigarettes, uncomplicated; I48.0 Paroxysmal atrial fibrillation; R91.1 Solitary pulmonary nodule; K21.9 Gastro-esophageal reflux disease without esophagitis; N40.0 Benign prostatic hyperplasia without lower urinary tract symptoms; Z71.6 Tobacco abuse counseling; Z98.42 Cataract extraction status, left eye; Z98.41 Cataract extraction status, right eye; Z96.1 Presence of intraocular lens; Z98.890 Other specified postprocedural states; Z79.01 Long term (current) use of anticoagulants; Z79.51 Long term (current) use of inhaled steroids; Z79.899 Other long term (current) drug therapy; Z91.041 Radiographic dye allergy status; Z91.040 Latex allergy status; Z82.49 Family history of ischemic heart disease and other diseases of the circulatory system; Z81.8 Family history of other mental and behavioral disorders
CPT/HCPCS: 36415; 71046; 80053; 83605; 83880; 84484; 85025; 85610; 85730; 87040; 87502; 93005; 94640; 94760; 96374; 99291

== ENCOUNTER → 2019-05-14 | Outpatient (CLI) | payer MEDICARE ==
[2019-05-14 13:32] LABS: Basophils % (A) 0 %; Eosinophils # (A) 0.6 k/uL (0-0.7); Eosinophils % (A) 6 %; HCT 44.3 % (39.0-53.0); HGB 14.2 gm/dL (13.0-17.5); Lymphocytes % (A) 18 %; MCH 32.2 pg (25.0-35.0); MCV 100.7 fL (80.0-100.0); Mean Platelet Volume 7.7; Monocytes # (A) 0.8 k/uL (0-1.0); Monocytes % (A) 7 %; Neutrophils # (A) 7.4 k/uL (1.3-7.7); Neutrophils % (A) 67 %; Platelet Count 230 k/uL (150-450); RDW 13.2 % (11.5-15.5)
[2019-05-14 13:50] LABS: Prothrombin Time 10.2 sec (9.0-12.0)
[2019-05-14 19:01] LABS: Albumin/Globulin Ratio 2.22 (1.60-3.17); Anion Gap 8.1 mmol/L (4.00-12.00); BUN/Creat Ratio 26.25 Ratio (12.00-20.00); Bilirubin, Conjugated 0.3 mg/dL (0.20-0.40); Bilirubin,Unconjugated 0.3 mg/dL; Calcium 9.1 mg/dL (8.7-10.3); Carbon Dioxide 24.9 mmol/L (21.6-31.8); Chol/HDL Ratio 3.5; Globulin 1.8 g/dL (1.6-3.3); LDL Cholesterol,Calculated 90.4 mg/dL (0.0-131.0); Magnesium 1.8 mg/dL (1.5-2.4); Phosphorus 3.5 mg/dL (2.4-5.1); Total Bilirubin 0.6 mg/dL (0.3-1.2); Total Protein 5.8 g/dL (6.2-8.2); VLDL Calculation 24.6 mg/dL (5.00-40.00)
[2019-05-14 19:08] LABS: T4, Free (Free Thyroxine) 1.4 ng/dL (0.80-1.80)
== END | disposition home or self-care (01) ==
LOC: LABWHC1 12:34
PROVIDERS: ATTEND Nurse Practitioner Family
DX: Z00.00 Encounter for general adult medical examination without abnormal findings (principal); I49.9 Cardiac arrhythmia, unspecified; I25.10 Atherosclerotic heart disease of native coronary artery without angina pectoris; M54.5 Low back pain; Z79.01 Long term (current) use of anticoagulants
CPT/HCPCS: 36415; 80053; 80061; 82248; 83735; 84100; 84439; 84443; 85025; 85610

== ENCOUNTER 2019-06-01 18:14 | Emergency (ER) | payer MEDICARE ==
[2019-06-01] MEDS ORDERED: IPRATROPIUM-ALBUTEROL 3 ML NEB INHALATION STA (18:47)
[2019-06-01 19:06] LABS: Basophils # (A) 0.1 k/uL (0-0.2); Basophils % (A) 1 %; Eosinophils # (A) 0.7 k/uL (0-0.7); Eosinophils % (A) 10 %; HCT 42.3 % (39.0-53.0); HGB 14.5 gm/dL (13.0-17.5); Lymphocytes % (A) 14 %; MCH 33.2 pg (25.0-35.0); MCHC 34.2 g/dL (31.0-37.0); MCV 97.1 fL (80.0-100.0); Mean Platelet Volume 7.8; Monocytes # (A) 0.6 k/uL (0-1.0); Monocytes % (A) 9 %; Neutrophils # (A) 4.3 k/uL (1.3-7.7); Neutrophils % (A) 62 %; Platelet Count 201 k/uL (150-450); RBC 4.35 m/uL (4.30-5.90); RDW 12.6 % (11.5-15.5); WBC 6.9 k/uL (3.8-10.6)
[2019-06-01] MEDS ORDERED: methylPREDNISolone SOD SUCCI 125 MG/2 ML VIAL IV STA (19:10)
[2019-06-01] MEDS ORDERED: MORPHINE SULFATE 4 MG/ML SYRINGE IVP STA (19:10)
[2019-06-01 19:15] LABS: ALT 16 U/L (4-49); AST 34 U/L (17-59); African American GFR (CKD) >90 (>60 ml/min/1.73 sqM); Albumin 4.2 g/dL (3.5-5.0); Alkaline Phosphatase 71 U/L (38-126); Anion Gap 7 mmol/L; Blood Urea Nitrogen 14 mg/dL (9-20); Calcium 9.3 mg/dL (8.4-10.2); Carbon Dioxide 25 mmol/L (22-30); Chloride 98 mmol/L (98-107); Creatine Kinase 48 U/L (55-170); Glucose 94 mg/dL (74-99); Magnesium 1.9 mg/dL (1.6-2.3); Non-African American GFR(CKD) 87 (>60 ml/min/1.73 sqM); Sodium 130 mmol/L (137-145); Total Protein 6.8 g/dL (6.3-8.2)
[2019-06-01 19:17] LABS: Partial Thromboplastin Time 26.1 sec (22.0-30.0); Prothrombin Time 10.2 sec (9.0-12.0)
--- NOTE | 2019-06-01 19:28 | ED ---
SOB HPI - General Chief Complaint: Shortness of Breath Stated Complaint: SOB, feet swelling Time Seen by Provider: 06/01/19 18:24 Source: patient, RN notes reviewed, old records reviewed Mode of arrival: ambulatory Limitations: no limitations - History of Present Illness Initial Comments: This is a 74-year-old male DF for evaluation patient Dese for evaluation of shortness of breath no chest pain with also complains of leg swelling he states he has never had leg swelling before history of COPD. patient also has atrial fibrillation. Face patient feels a shortness of breath is related to his COPD was concerned about his bilateral lower Shorty swelling since his legs have never been swollen that there currently. Also increased cough and sputum pr oduction which is normal for COPD exacerbation. No recent change in medications or antibiotic use. No recent travel history, patient denying current fever MD Complaint: shortness of breath, cough -: days(s) Severity: mild Severity scale (1-10): 3 Quality: other (no pain) Consistency: constant Improves With: nothing, rest Worsens With: exertion Context: recent URI Associated Symptoms: cough, sputum production Treatments Prior to Arrival: none - Related Data Home Medications Medication Instructions Recorded Confirmed Tamsulosin HCl [Flomax] 0.8 mg PO HS 03/24/18 06/01/19 Budesonide-Formot 160-4.5 Mcg 2 puff INHALATION RT-BID 04/20/18 06/01/19 [Symbicort 160-4.5 Mcg Inhaler] Apixaban [Eliquis] 5 mg PO BID 09/14/18 06/01/19 Metoprolol Tartrate [Lopressor] 50 mg PO BID 02/04/19 06/01/19 Ergocalciferol [Vitamin D2 50,000 unit PO SA 05/05/19 06/01/19 (DRISDOL)] Finasteride [Proscar] 5 mg PO DAILY 05/05/19 06/01/19 HYDROcodone/APAP 5-325MG [[place] 1 tab PO Q6H PRN 05/05/19 06/01/19 5-325] Ipratropium-Albuterol Nebulize 3 ml INHALATION RT-Q4H PRN 05/05/19 06/01/19 [Duoneb 0.5 mg-3 mg/3 ml Soln] Lidocaine 5% Patch [Lidoderm 5% 1 patch TRANSDERM DAILY 05/05/19 06/01/19 Patch] Umeclidinium [place] [Incruse 1 puff INHALATION RT-DAILY 06/01/19 06/01/19 Ellipta] Previous Rx's Medication Instructions Recorded Albuterol Inhaler [Ventolin Hfa 1 - 2 puff INHALATION RT-Q6H PRN 03/03/19 Inhaler] #1 puff Famotidine [Pepcid] 20 mg PO Q12HR #30 tab 03/03/19 Azithromycin [Zithromax Z-pack] 0 mg PO DIRECTED #1 pack 06/01/19 Allergies Allergy/AdvReac Type Severity Reaction Status Date / Time Iodinated Contrast Media Allergy Rash/Hives Verified 06/01/19 18:16 [Iodinated Contrast- Oral and IV Dye] latex Allergy Rash/Hives Verified 06/01/19 18:16 Review of Systems ROS Statement: Those systems with pertinent positive or pertinent negative responses have been documented in the HPI. ROS Other: All systems not noted in ROS Statement are negative. Past Medical History Past Medical History: Atrial Fibrillation, COPD, Prostate Disorder Additional Past Medical History / Comment(s): Paroxysmal Afib, BPH History of Any Multi-Drug Resistant Organisms: None Reported Past Surgical History: No Surgical Hx Reported, Back Surgery Additional Past Surgical History / Comment(s): Bilateral cataract removals-lens implants, colonoscopy, recent surgical procedure to the spine Mar 2019 Past Anesthesia/Blood Transfusion Reactions: No Reported Reaction Additional Past Anesthesia/Blood Transfusion Reaction / Comment(s): Has never received any blood transfusions. Past Psychological History: No Psychological Hx Reported Smoking Status: Current every day smoker Past Alcohol Use History: None Reported Past Drug Use History: None Reported - Past Family History Mother Family Medical History: AFIB, Dementia Father Family Medical History: Myocardial Infarction ([place]) Additional Family Medical History / Comment(s): in his 70's [place] General Exam Limitations: no limitations General appearance: alert, in no apparent distress Head exam: Present: atraumatic, normocephalic, normal inspection Eye exam: Present: normal appearance, PERRL, EOMI. Absent: scleral icterus, conjunctival injection, periorbital swelling ENT exam: Present: normal exam, mucous membranes moist Neck exam: Present: normal inspection. Absent: tenderness, meningismus, lymphadenopathy Respiratory exam: Present: wheezes, decreased breath sounds, prolonged expiratory. Absent: respiratory distress, rales, rhonchi, stridor Cardiovascular Exam: Present: regular rate, normal rhythm, normal heart sounds. Absent: systolic murmur, diastolic murmur, rubs, gallop, clicks GI/Abdominal exam: Present: soft, normal bowel sounds. Absent: distended, tenderness, guarding, rebound, rigid Extremities exam: Present: normal inspection, full ROM, normal capillary refill, pedal edema (BL 2plus). Absent: tenderness, joint swelling, calf tenderness Back exam: Present: normal inspection Neurological exam: Present: alert, oriented X3, CN II-XII intact Psychiatric exam: Present: normal affect, normal mood Skin exam: Present: warm, dry, intact, normal color. Absent: rash Course Vital Signs 06/01/19 06/01/19 06/01/19 18:17 19:22 19:37 Temperature 97.9 F Pulse Rate 96 70 73 Respiratory 22 16 16 Rate Blood Pressure 107/77 O2 Sat by Pulse 96 Oximetry 06/01/19 20:28 Temperature Pulse Rate 77 Respiratory 18 Rate Blood Pressure 137/88 O2 Sat by Pulse 99 Oximetry - Reevaluation(s) Reevaluation #1: 06/01/19 21:01 Medical records reviewed recent COPD admission about a month ago Reevaluation #2: 06/01/19 21:01 Patient is in no distress is no complaints fevers Reevaluation #3: 06/01/19 21:01 Patient explained findings here in the ER, questions are answered - Consultations Consultation #1: Spoke with Dr. Ortega will see patient in the office tomorrow Medical Decision Making - Medical Decision Making 74 male DF for evaluation shortness with lower extremity edema no significant concern for DVT [facility] No chest pain. Patient is immobile encouraged to elevate feet to help with lower extremity edema, BMP is negative's and O CHF patient has mild pneumonia we'll choose antibiotics and can be discharged home with follow-up with primary care in the office - Lab Data Result diagrams: 06/01/19 18:47 06/01/19 18:47 Lab Results 06/01/19 06/01/19 06/01/19 Range/Units 18:47 18:47 18:47 WBC 6.9 (3.8-10.6) k/uL RBC 4.35 (4.30-5.90) m/uL Hgb 14.5 (13.0-17.5) gm/dL Hct 42.3 (39.0-53.0) % MCV 97.1 (80.0-100.0) fL MCH 33.2 (25.0-35.0) pg MCHC 34.2 (31.0-37.0) g/dL RDW 12.6 (11.5-15.5) % Plt Count 201 (150-450) k/uL Neutrophils % 62 % Lymphocytes % 14 % Monocytes % 9 % Eosinophils % 10 % Basophils % 1 % Neutrophils # 4.3 (1.3-7.7) k/uL Lymphocytes # 1.0 (1.0-4.8) k/uL Monocytes # 0.6 (0-1.0) k/uL Eosinophils # 0.7 (0-0.7) k/uL Basophils # 0.1 (0-0.2) k/uL PT 10.2 (9.0-12.0) sec INR 1.0 (<1.2) APTT 26.1 (22.0-30.0) sec Sodium 130 L (137-145) mmol/L Potassium 5.0 (3.5-5.1) mmol/L Chloride 98 (98-107) mmol/L Carbon Dioxide 25 (22-30) mmol/L Anion Gap 7 mmol/L BUN 14 (9-20) mg/dL Creatinine 0.82 (0.66-1.25) mg/dL Est GFR (CKD-EPI)AfAm >90 (>60 ml/min/1.73 sqM) Est GFR (CKD-EPI)NonAf 87 (>60 ml/min/1.73 sqM) Glucose 94 (74-99) mg/dL Calcium 9.3 (8.4-10.2) mg/dL Magnesium 1.9 (1.6-2.3) mg/dL Total Bilirubin 1.0 (0.2-1.3) mg/dL AST 34 (17-59) U/L ALT 16 (4-49) U/L Alkaline Phosphatase 71 (38-126) U/L Creatine Kinase 48 L (55-170) U/L CK-MB (CK-2) (0.0-2.4) ng/mL Troponin I (0.000-0.034) ng/mL NT-Pro-B Natriuret Pep pg/mL Total Protein 6.8 (6.3-8.2) g/dL Albumin 4.2 (3.5-5.0) g/dL 06/01/19 06/01/19 Range/Units 18:47 18:47 WBC (3.8-10.6) k/uL RBC (4.30-5.90) m/uL Hgb (13.0-17.5) gm/dL Hct (39.0-53.0) % MCV (80.0-100.0) fL MCH (25.0-35.0) pg MCHC (31.0-37.0) g/dL RDW (11.5-15.5) % Plt Count (150-450) k/uL Neutrophils % % Lymphocytes % % Monocytes % % Eosinophils % % Basophils % % Neutrophils # (1.3-7.7) k/uL Lymphocytes # (1.0-4.8) k/uL Monocytes # (0-1.0) k/uL Eosinophils # (0-0.7) k/uL Basophils # (0-0.2) k/uL PT (9.0-12.0) sec INR (<1.2) APTT (22.0-30.0) sec Sodium (137-145) mmol/L Potassium (3.5-5.1) mmol/L Chloride (98-107) mmol/L Carbon Dioxide (22-30) mmol/L Anion Gap mmol/L BUN (9-20) mg/dL Creatinine (0.66-1.25) mg/dL Est GFR (CKD-EPI)AfAm (>60 ml/min/1.73 sqM) Est GFR (CKD-EPI)NonAf (>60 ml/min/1.73 sqM) Glucose (74-99) mg/dL Calcium (8.4-10.2) mg/dL Magnesium (1.6-2.3) mg/dL Total Bilirubin (0.2-1.3) mg/dL AST (17-59) U/L ALT (4-49) U/L Alkaline Phosphatase (38-126) U/L Creatine Kinase (55-170) U/L CK-MB (CK-2) 0.9 (0.0-2.4) ng/mL Troponin I <0.012 (0.000-0.034) ng/mL NT-Pro-B Natriuret Pep 37 pg/mL Total Protein (6.3-8.2) g/dL Albumin (3.5-5.0) g/dL - EKG Data -: EKG Interpreted by Me (EKG shows sinus rhythm of 73, CO 184, QRS 80, QTC 434) - Radiology Data Radiology results: report reviewed (Chest x-ray shows right lower lobe pneumonia), image reviewed Disposition Clinical Impression: COPD with acute exacerbation, Acute exacerbation of chronic obstructive airways disease, Community acquired pneumonia Disposition: HOME SELF-CARE Condition: Good Instructions (If sedation given, give patient instructions): Acute Bronchitis (ED), Community Acquired Pneumonia (ED) Prescriptions: Azithromycin [Zithromax Z-pack] 0 mg PO DIRECTED #1 pack Is patient prescribed a controlled substance at d/c from ED?: No Referrals: Fernando Lambert Jr, DO [Primary Care Provider] - 1-2 days
--- NOTE | 2019-06-01 19:31 | XR ---
EXAMINATION TYPE: XR chest 1V DATE OF EXAM: 06/01/2019 COMPARISON: 05/05/2019 INDICATION: Difficulty breathing TECHNIQUE: Single frontal view of the chest is obtained. FINDINGS: The heart size is normal. The pulmonary vasculature is normal. There is mild diffuse increased lung markings which is nonspecific. Developing infiltrate could be co nsidered. IMPRESSION: 1. Mild increased lung markings greater into the lower lung meyers bilaterally. The findings are nons pecific. Developing infiltrate should be considered.
[2019-06-01 19:38] LABS: Creatine Kinase MB 0.9 ng/mL (0.0-2.4); Troponin I <0.012 ng/mL (0.000-0.034)
[2019-06-01 20:29] VITALS: RESP 18
[2019-06-01] MEDS ORDERED: SODIUM CHLORIDE 0.9% 500 ML 500 ML IV STA (20:43)
[2019-06-01] MEDS ORDERED: AZITHROMYCIN 500 MG in SODIUM CHLORIDE 0.9% 250 ML IVPB STA (20:44)
[2019-06-01 22:17] VITALS: BP 137/81; PULSE 82; TEMP 98
== END 2019-06-01 22:16 | disposition home or self-care (01) ==
LOC: EC 18:14
DX: J44.1 Chronic obstructive pulmonary disease with (acute) exacerbation (principal); J44.0 Chronic obstructive pulmonary disease with (acute) lower respiratory infection; J18.9 Pneumonia, unspecified organism; I48.0 Paroxysmal atrial fibrillation; F17.200 Nicotine dependence, unspecified, uncomplicated; Z79.01 Long term (current) use of anticoagulants; Z79.51 Long term (current) use of inhaled steroids; Z79.899 Other long term (current) drug therapy; Z91.041 Radiographic dye allergy status; Z91.040 Latex allergy status
CPT/HCPCS: 99285; 96365; 96375 ×2; 36415; 94640; 93005; 83880; 80053; 82550; 82553; 83735; 84484; 85025; 85610; 85730; 71045; J2270; J2930; J0456; 72146; 72148

== ENCOUNTER 2019-06-06 06:59 | Inpatient (IN) | payer MEDICARE ==
[2019-06-06] MEDS ORDERED: IPRATROPIUM-ALBUTEROL 3 ML NEB INHALATION STA (07:30)
[2019-06-06 07:41] LABS: Basophils % (A) 1 %; Eosinophils # (A) 0.8 k/uL (0-0.7); Eosinophils % (A) 10 %; HCT 44.2 % (39.0-53.0); HGB 15.1 gm/dL (13.0-17.5); Lymphocytes # (A) 1.6 k/uL (1.0-4.8); Lymphocytes % (A) 19 %; MCV 96.9 fL (80.0-100.0); Mean Platelet Volume 7.6; Monocytes # (A) 0.6 k/uL (0-1.0); Monocytes % (A) 7 %; Neutrophils # (A) 4.9 k/uL (1.3-7.7); Neutrophils % (A) 60 %; Platelet Count 240 k/uL (150-450); RBC 4.56 m/uL (4.30-5.90); RDW 12.5 % (11.5-15.5); WBC 8.1 k/uL (3.8-10.6)
[2019-06-06 07:47] LABS: ALT 14 U/L (4-49); AST 23 U/L (17-59); African American GFR (CKD) >90 (>60 ml/min/1.73 sqM); Albumin 4.1 g/dL (3.5-5.0); Alkaline Phosphatase 75 U/L (38-126); Anion Gap 10 mmol/L; Blood Urea Nitrogen 17 mg/dL (9-20); Calcium 9.5 mg/dL (8.4-10.2); Carbon Dioxide 24 mmol/L (22-30); Chloride 100 mmol/L (98-107); Glucose 100 mg/dL (74-99); Magnesium 2.1 mg/dL (1.6-2.3); Non-African American GFR(CKD) >90 (>60 ml/min/1.73 sqM); Sodium 134 mmol/L (137-145); Total Bilirubin 0.6 mg/dL (0.2-1.3); Total Protein 6.7 g/dL (6.3-8.2)
--- NOTE | 2019-06-06 07:49 | XR ---
EXAMINATION TYPE: XR chest 2V DATE OF EXAM: 06/06/2019 HISTORY: difficulty breathing. REFERENCE: Previous study dated 06/01/2019 there are been previous kyphoplasty is in the lower dorsal spine. Lung volumes are prominent. Heart size upper limits of normal. There are minor increased markings pre sent bilaterally, unchanged from previous. There is no focal consolidation. No pleural fluid is seen. . FINDINGS: COPD. IMPRESSION:
--- NOTE | 2019-06-06 07:55 | ED ---
General Adult HPI - General Chief complaint: Shortness of Breath Stated complaint: SOB Time Seen by Provider: 06/06/19 07:17 Source: patient, RN notes reviewed, old records reviewed Mode of arrival: ambulatory Limitations: no limitations - History of Present Illness Initial comments: This a 74-year-old male presents emergency Department chief complaint of shortness of breath. Patient states that he struggling with his COPD. Patient states she's been smoking for 60 years he states he continues to smoke. He states he is coughing which is nonproductive he's had no fever, patient was evaluated in emergency Department a few days ago. Patient also minutes last week studies had extensive leg swelling which she's never had the past. Patient states he never lays flat and nighttime but states that he is sitting upright in a recliner. Patient has no history of congestive heart failure. Denies any chest pain denies any joint pain headache or dizziness. - Related Data Home Medications Medication Instructions Recorded Confirmed Tamsulosin HCl [Flomax] 0.8 mg PO HS 03/24/18 06/01/19 Budesonide-Formot 160-4.5 Mcg 2 puff INHALATION RT-BID 04/20/18 06/01/19 [Symbicort 160-4.5 Mcg Inhaler] Apixaban [Eliquis] 5 mg PO BID 09/14/18 06/01/19 Metoprolol Tartrate [Lopressor] 50 mg PO BID 02/04/19 06/01/19 Ergocalciferol [Vitamin D2 50,000 unit PO SA 05/05/19 06/01/19 (DRISDOL)] Finasteride [Proscar] 5 mg PO DAILY 05/05/19 06/01/19 HYDROcodone/APAP 5-325MG [[place] 1 tab PO Q6H PRN 05/05/19 06/01/19 5-325] Ipratropium-Albuterol Nebulize 3 ml INHALATION RT-Q4H PRN 05/05/19 06/01/19 [Duoneb 0.5 mg-3 mg/3 ml Soln] Lidocaine 5% Patch [Lidoderm 5% 1 patch TRANSDERM DAILY 05/05/19 06/01/19 Patch] Umeclidinium [place] [Incruse 1 puff INHALATION RT-DAILY 06/01/19 06/01/19 Ellipta] Previous Rx's Medication Instructions Recorded Albuterol Inhaler (Bulk) [Ventolin 1 - 2 puff INHALATION RT-Q6H PRN 03/03/19 Hfa Inhaler (Bulk)] #1 puff Famotidine [Pepcid] 20 mg PO Q12HR #30 tab 03/03/19 Azithromycin [Zithromax Z-pack] 0 mg PO DIRECTED #1 pack 06/01/19 Allergies Allergy/AdvReac Type Severity Reaction Status Date / Time Iodinated Contrast Media Allergy Rash/Hives Verified 06/01/19 18:16 [Iodinated Contrast- Oral and IV Dye] latex Allergy Rash/Hives Verified 06/01/19 18:16 Review of Systems ROS Statement: Those systems with pertinent positive or pertinent negative responses have been documented in the HPI. ROS Other: All systems not noted in ROS Statement are negative. Past Medical History Past Medical History: Atrial Fibrillation, COPD, Prostate Disorder Additional Past Medical History / Comment(s): Paroxysmal Afib, BPH History of Any Multi-Drug Resistant Organisms: None Reported Past Surgical History: No Surgical Hx Reported, Back Surgery Additional Past Surgical History / Comment(s): Bilateral cataract removals-lens implants, colonoscopy, recent surgical procedure to the spine Mar 2019 Past Anesthesia/Blood Transfusion Reactions: No Reported Reaction Additional Past Anesthesia/Blood Transfusion Reaction / Comment(s): Has never received any blood transfusions. Past Psychological History: No Psychological Hx Reported Smoking Status: Current every day smoker Past Alcohol Use History: None Reported Past Drug Use History: None Reported - Past Family History Mother Family Medical History: AFIB, Dementia Father Family Medical History: Myocardial Infarction ([place]) Additional Family Medical History / Comment(s): in his 70's [place] General Exam Limitations: no limitations General appearance: alert, in no apparent distress Head exam: Present: atraumatic, normocephalic, normal inspection Eye exam: Present: normal appearance, PERRL, EOMI. Absent: scleral icterus, conjunctival injection, periorbital swelling ENT exam: Present: normal exam, normal oropharynx, mucous membranes moist, TM's normal bilaterally Neck exam: Present: normal inspection, full ROM. Absent: tenderness, meningismus, lymphadenopathy Respiratory exam: Present: respiratory distress, wheezes. Absent: normal lung sounds bilaterally, rales, rhonchi, stridor Cardiovascular Exam: Present: regular rate, normal rhythm, normal heart sounds. Absent: systolic murmur, diastolic murmur, rubs, gallop, clicks Neurological exam: Present: alert, oriented X3, CN II-XII intact Skin exam: Present: warm, dry, intact, normal color. Absent: rash Course Vital Signs 06/06/19 06/06/19 06/06/19 07:01 07:55 08:05 Temperature 97.6 F Pulse Rate 82 92 88 Respiratory 20 Rate Blood Pressure 112/79 O2 Sat by Pulse 96 Oximetry EKG Findings - EKG Comments: EKG Findings:: EKG performed at 7:25 normal sinus rhythm rate of 79 KS 178 QRS 82 QT/QTC 378/433 Medical Decision Making - Medical Decision Making 34-year-old male presented for dyspnea. Patient had minimal improvement with treatments, he did give himself one treatment at home has had 2 treatments here. He continues to have dyspnea, diffuse wheezing. Chest x-ray is consistent with COPD symptoms are consistent with COPD exacerbation patient unable to ambulate short distances without been short of breath or completing sentences. Patient will be admitted to PCP with consult pulmonology - Lab Data Result diagrams: 06/06/19 07:30 06/06/19 07:30 Lab Results 06/06/19 06/06/19 06/06/19 Range/Units 07:30 07:30 07:30 WBC 8.1 (3.8-10.6) k/uL RBC 4.56 (4.30-5.90) m/uL Hgb 15.1 (13.0-17.5) gm/dL Hct 44.2 (39.0-53.0) % MCV 96.9 (80.0-100.0) fL MCH 33.0 (25.0-35.0) pg MCHC 34.0 (31.0-37.0) g/dL RDW 12.5 (11.5-15.5) % Plt Count 240 (150-450) k/uL Neutrophils % 60 % Lymphocytes % 19 % Monocytes % 7 % Eosinophils % 10 % Basophils % 1 % Neutrophils # 4.9 (1.3-7.7) k/uL Lymphocytes # 1.6 (1.0-4.8) k/uL Monocytes # 0.6 (0-1.0) k/uL Eosinophils # 0.8 H (0-0.7) k/uL Basophils # 0.0 (0-0.2) k/uL PT 10.6 (9.0-12.0) sec INR 1.0 (<1.2) APTT 26.0 (22.0-30.0) sec Sodium 134 L (137-145) mmol/L Potassium 4.7 (3.5-5.1) mmol/L Chloride 100 (98-107) mmol/L Carbon Dioxide 24 (22-30) mmol/L Anion Gap 10 mmol/L BUN 17 (9-20) mg/dL Creatinine 0.76 (0.66-1.25) mg/dL Est GFR (CKD-EPI)AfAm >90 (>60 ml/min/1.73 sqM) Est GFR (CKD-EPI)NonAf >90 (>60 ml/min/1.73 sqM) Glucose 100 H (74-99) mg/dL Plasma Lactic Acid [place] (0.7-2.0) mmol/L Calcium 9.5 (8.4-10.2) mg/dL Magnesium 2.1 (1.6-2.3) mg/dL Total Bilirubin 0.6 (0.2-1.3) mg/dL AST 23 (17-59) U/L ALT 14 (4-49) U/L Alkaline Phosphatase 75 (38-126) U/L Troponin I (0.000-0.034) ng/mL NT-Pro-B Natriuret Pep pg/mL Total Protein 6.7 (6.3-8.2) g/dL Albumin 4.1 (3.5-5.0) g/dL 06/06/19 06/06/19 06/06/19 Range/Units 07:30 07:30 07:30 WBC (3.8-10.6) k/uL RBC (4.30-5.90) m/uL Hgb (13.0-17.5) gm/dL Hct (39.0-53.0) % MCV (80.0-100.0) fL MCH (25.0-35.0) pg MCHC (31.0-37.0) g/dL RDW (11.5-15.5) % Plt Count (150-450) k/uL Neutrophils % % Lymphocytes % % Monocytes % % Eosinophils % % Basophils % % Neutrophils # (1.3-7.7) k/uL Lymphocytes # (1.0-4.8) k/uL Monocytes # (0-1.0) k/uL Eosinophils # (0-0.7) k/uL Basophils # (0-0.2) k/uL PT (9.0-12.0) sec INR (<1.2) APTT (22.0-30.0) sec Sodium (137-145) mmol/L Potassium (3.5-5.1) mmol/L Chloride (98-107) mmol/L Carbon Dioxide (22-30) mmol/L Anion Gap mmol/L BUN (9-20) mg/dL Creatinine (0.66-1.25) mg/dL Est GFR (CKD-EPI)AfAm (>60 ml/min/1.73 sqM) Est GFR (CKD-EPI)NonAf (>60 ml/min/1.73 sqM) Glucose (74-99) mg/dL Plasma Lactic Acid Santi 0.9 (0.7-2.0) mmol/L Calcium (8.4-10.2) mg/dL Magnesium (1.6-2.3) mg/dL Total Bilirubin (0.2-1.3) mg/dL AST (17-59) U/L ALT (4-49) U/L Alkaline Phosphatase (38-126) U/L Troponin I <0.012 (0.000-0.034) ng/mL NT-Pro-B Natriuret Pep 42 pg/mL Total Protein (6.3-8.2) g/dL Albumin (3.5-5.0) g/dL Disposition Clinical Impression: COPD with acute exacerbation, Failure of outpatient treatment Disposition: ADMITTED IP TO THIS HOSP Condition: Serious Referrals: Fernando Lambert Jr, [Primary Care Provider] - 1-2 days
[2019-06-06 07:58] LABS: Potassium 4.7 mmol/L (3.5-5.1)
[2019-06-06 08:02] LABS: Prothrombin Time 10.6 sec (9.0-12.0)
[2019-06-06] MEDS ORDERED: methylPREDNISolone SOD SUCCI 125 MG/2 ML VIAL IV STA (08:28)
[2019-06-06] MEDS ORDERED: cefTRIAXone IN SWFI 1,000 MG/10 ML SYRINGE IVP STA (08:31)
[2019-06-06] MEDS ORDERED: HYDROcodone/APAP 5-325MG 1 EACH TAB PO PRN (11:10)
[2019-06-06] MEDS ORDERED: ERGOCALCIFEROL 50,000 UNIT CAP PO SCH (11:30)
[2019-06-06] MEDS: ALBUTEROL HFA INHALER INHALATION SCH ×3 (11:37→21:04)
[2019-06-06] MEDS: TIOTROPIUM 18 MCG/PUFF INHALER INHALATION SCH (11:37)
[2019-06-06 11:51] LABS: Glucose,Whole Blood 126 mg/dL (75-99)
[2019-06-06] MEDS ORDERED: IPRATROPIUM-ALBUTEROL 3 ML NEB INHALATION SCH (12:00)
[2019-06-06] MEDS: INSULIN ASPART (NovoLOG) 100 UNIT/ML VIAL SQ SCH ×3 (12:18→20:43)
[2019-06-06] MEDS: methylPREDNISolone SOD SUCCI 125 MG/2 ML VIAL IV SCH ×2 (12:44→17:23)
--- NOTE | 2019-06-06 14:51 | P.HPIM ---
History of Present Illness H&P Date: 06/06/19 Chief Complaint: SOB This is a 74 y/o male patient new to our practice as of last month. he is frequently admitted for COPD and continues to smoke. He c/o increased SOB over t he past week with 1 previous ER visit on Saturday. He Denies any cp, pressure, nause or vomitting. He is c/o minimal constipation. He reports He needs meds updated. HE was on Symbicort and alburterol updrafts at home . He f/u with [facility].He has a h/o Afib and is on Eliquis and metoprolol. This AM he has already had IV steroids and antibioitcs and feels a bit better. Review of Systems All systems: negative Past Medical History Past Medical History: Atrial Fibrillation, COPD, Prostate Disorder Additional Past Medical History / Comment(s): Paroxysmal Afib, BPH History of Any Multi-Drug Resistant Organisms: None Reported Past Surgical History: No Surgical Hx Reported, Back Surgery Additional Past Surgical History / Comment(s): Bilateral cataract removals-lens implants, colonoscopy, recent surgical procedure to the spine Mar 2019 Past Anesthesia/Blood Transfusion Reactions: No Reported Reaction Additional Past Anesthesia/Blood Transfusion Reaction / Comment(s): Has never received any blood transfusions. Past Psychological History: No Psychological Hx Reported Additional Psychological History / Comment(s): Pt resides with his spouse and their son (Bryn). They live in a downstairs apartment. Pt manages his own medications. He has a nebulizer.His son cooks and drives pt to [employer]. Smoking Status: Current every day smoker Past Alcohol Use History: None Reported Additional Past Alcohol Use History / Comment(s): Pt started smoking age 12(1957) got up to 5 ppd for many years then cut down to 3 ppd. Pt. states he currently smokes one pack a day Past Drug Use History: None Reported - Past Family History Mother Family Medical History: AFIB, Dementia Father Family Medical History: Myocardial Infarction ([place]) Additional Family Medical History / Comment(s): in his 70's [place] Medications and Allergies Home Medications Medication Instructions Recorded Confirmed Type Tamsulosin HCl [Flomax] 0.8 mg PO HS 03/24/18 06/06/19 History Budesonide-Formot 160-4.5 Mcg 2 puff INHALATION RT-BID 04/20/18 06/06/19 History [Symbicort 160-4.5 Mcg Inhaler] Apixaban [Eliquis] 5 mg PO BID 09/14/18 06/06/19 History Metoprolol Tartrate [Lopressor] 50 mg PO BID 02/04/19 06/06/19 History Albuterol Inhaler (Bulk) [Ventolin 1 - 2 puff INHALATION RT-Q6H PRN 03/03/19 06/06/19 Rx Hfa Inhaler (Bulk)] #1 puff Famotidine [Pepcid] 20 mg PO Q12HR #30 tab 03/03/19 06/06/19 Rx Ergocalciferol [Vitamin D2 50,000 unit PO SA 05/05/19 06/06/19 History (DRISDOL)] Finasteride [Proscar] 5 mg PO DAILY 05/05/19 06/06/19 History HYDROcodone/APAP 5-325MG [[place] 1 - 2 tab PO Q6H PRN 05/05/19 06/06/19 History 5-325] Ipratropium-Albuterol Nebulize 3 ml INHALATION RT-Q4H PRN 05/05/19 06/06/19 History [Duoneb 0.5 mg-3 mg/3 ml Soln] Umeclidinium [place] [Incruse 1 puff INHALATION RT-DAILY 06/01/19 06/06/19 Hist ory Ellipta] Acetaminophen [Tylenol] 650 mg PO Q6H PRN 06/06/19 06/06/19 History Calcium Carbonate [Calcium] 600 mg PO DAILY 06/06/19 06/06/19 History Cyclobenzaprine [Flexeril] 10 mg PO HS 06/06/19 06/06/19 History Polyethylene Glycol 3350 [Miralax] 17 gm PO DAILY 06/06/19 06/06/19 History Allergies Allergy/AdvReac Type Severity Reaction Status Date / Time Iodinated Contrast Media Allergy Rash/Hives Verified 06/06/19 12:25 [Iodinated Contrast- Oral and IV Dye] latex Allergy Rash/Hives Verified 06/06/19 12:25 Physical Exam Vitals: Vital Signs Temp Pulse Pulse Resp BP BP Pulse Ox 06/06/19 11:30 97.7 F 85 16 127/86 96 04/04/20 10:05 97.6 F 52 L 30 H 104/74 100 06/06/19 09:00 98.2 F 75 20 107/90 100 06/06/19 08:05 88 06/06/19 08:00 76 18 104/66 98 06/06/19 07:55 92 06/06/19 07:01 97.6 F 82 20 112/79 96 Intake and Output 06/05/19 06/06/19 06/06/19 22:59 06:59 14:59 Other: # Voids 2 Weight 72.575 kg GENERAL EXAM: Pleasant 74-year-old gentleman. Alert, active, comfortable in no apparent distress. HEAD: Normocephalic. EYES: Normal reaction of pupils, equal size. NOSE: Clear with pink turbinates. THROAT: No erythema or exudates. NECK: No masses, no JVD. CHEST: No chest wall deformity. LUNGS: Equal air entry with bilateral end expiratory wheeze, diminished breath sounds CVS: S1 and S2 normal with no audible murmur, regular rhythm. ABDOMEN: No hepatosplenomegaly, normal bowel sounds, no guarding or rigidity. SPINE: No scoliosis or deformity SKIN: No rashes CENTRAL NERVOUS SYSTEM: No focal deficits, tone is normal in all 4 extremities. EXTREMITIES: There is no peripheral edema. No clubbing, no cyanosis. Peripheral pulses are intact. Results CBC & Chem 7: 06/06/19 07:30 06/06/19 07:30 Labs: Abnormal Lab Results - Last 24 Hours (Table) 06/06/19 06/06/19 06/06/19 Range/Units 07:30 07:30 11:47 Eosinophils # 0.8 H (0-0.7) k/uL Sodium 134 L (137-145) mmol/L Glucose 100 H (74-99) mg/dL POC Glucose (mg/dL) 126 H (75-99) mg/dL Chest x-ray: report reviewed (copd) Thrombosis Risk Factor Assmnt - DVT/VTE Prophylaxis DVT/VTE Prophylaxis: Pharmacologic Prophylaxis ordered (for afib continue eliquis) - Choose All That Apply Any of the Below Risk Factors Present?: Yes Other Risk Factors: Yes Each Risk Factor Represents 2 Points: Age 61-74 years Other congenital or acquired thrombophilia - If yes, enter type in comment: Yes Thrombosis Risk Factor Assessment Total Risk Factor Score: 2 Thrombosis Risk Factor Assessment Level: Low Risk Assessment and Plan Plan: Acute exacerbation of chronic obstructive pulmonary disease: screen for influenza and possible COVID19: steroids, Rocephin, pulmonolgy Consult, continue symbicort and Duoneb [facility] tobaccoism: smoking cessation d/w patient Recurrent admissions: [facility] Pulmonary nodules with negative PET scan: pulkmonolgy to follow Hypertension: continue metoprolol paroxysmal atrial fibrillation: contineu Eliquis and metoprolol. . Benign prostatic hyperplasia: contineu flomax continue current meds wait on service delivery management consultant recommendations repeat labs in am reeevaulate in 24 hrs
--- NOTE | 2019-06-06 14:57 | P.CNPUL ---
History of Present Illness Consult date: 06/06/19 Requesting physician: Fernando Lambert Jr Reason for consult: dyspnea, COPD Chief complaint: Shortness of breath History of present illness: This is a pleasant 74-year-old male patient who follows with Dr. Lambert is his primary care provider. He has a history of proximal atrial fibrillation, benign prosthetic hypertrophy. He also follows in our office with a known history of moderately severe COPD with FEV1 of 53% of predicted maintained on Symbicort, Incruse, Ventolin HFA and albuterol updrafts when necessary. He is smoking 1 pack of cigarettes a day. He has had previous hospitalization for COPD exacerbation. Recently here in May 2019. He states he is taking his home pulmonary medications as prescribed. He presented here to the hospital again early this morning with complaints of increasing shortness of breath. He has a dry nonproductive cough. He denies any fever, chills or night sweats. Chest x- ray reveals evidence of COPD but no acute pulmonary process. White count 8.1. Hemoglobin 15.1. Sodium 134. Potassium 4.7. Creatinine 0.76. Influenza screen negative. Covid 19 testing is pending. He has been resumed on Symbicort, Spiriva, albuterol, IV Solu-Medrol. He is anticoagulated with Eliquis. Review of Systems REVIEW OF SYSTEMS: CONSTITUTIONAL: Denies any recent significant weight loss or weight gain. EYES: Denies change in vision. EARS, NOSE, MOUTH, THROAT: Denies headaches, denies sore throat. CARDIOVASCULAR: Denies chest pain, palpitations or syncopal episodes. RESPIRATORY: Positive for shortness of breath, cough, congestion no hemoptysis. GASTROINTESTINAL: Denies change in appetite, denies abdominal pain GENITOURINARY: Denies hematuria, denies infections. MUSKULOSKELETAL: Denies pain, denies swelling. INTEGUMENTARY: Denies rash, denies eczema. NEUROLOGICAL: Denies recent memory loss, no recent seizure activity. PSYCHIATRIC: Denies anxiety, denies depression. HEMATOLOGIC/LYMPHATIC: Denies anemia, denies enlarged lymph nodes. Past Medical History Past Medical History: Atrial Fibrillation, COPD, Prostate Disorder Additional Past Medical History / Comment(s): Paroxysmal Afib, BPH History of Any Multi-Drug Resistant Organisms: None Reported Past Surgical History: No Surgical Hx Reported, Back Surgery Additional Past Surgical History / Comment(s): Bilateral cataract removals-lens implants, colonoscopy, recent surgical procedure to the spine Mar 2019 Past Anesthesia/Blood Transfusion Reactions: No Reported Reaction Additional Past Anesthesia/Blood Transfusion Reaction / Comment(s): Has never received any blood transfusions. Past Psychological History: No Psychological Hx Reported Additional Psychological History / Comment(s): Pt resides with his spouse and their son (Bryn). They live in a downstairs apartment. Pt manages his own medications. He has a nebulizer.His son cooks and drives pt to [employer]. Smoking Status: Current every day smoker Past Alcohol Use History: None Reported Additional Past Alcohol Use History / Comment(s): Pt started smoking age [age]) got up to 5 ppd for many years then cut down to 3 ppd. Pt. states he currently smokes one pack a day Past Drug Use History: None Reported - Past Family History Mother Family Medical History: AFIB, Dementia Father Family Medical History: Myocardial Infarction ([place]) Additional Family Medical History / Comment(s): in his 70's [place] Medications and Allergies Home Medications Medication Instructions Recorded Confirmed Type Tamsulosin HCl [Flomax] 0.8 mg PO HS 03/24/18 06/06/19 History Budesonide-Formot 160-4.5 Mcg 2 puff INHALATION RT-BID 04/20/18 06/06/19 History [Symbicort 160-4.5 Mcg Inhaler] Apixaban [Eliquis] 5 mg PO BID 09/14/18 06/06/19 History Metoprolol Tartrate [Lopressor] 50 mg PO BID 02/04/19 06/06/19 History Albuterol Inhaler (Bulk) [Ventolin 1 - 2 puff INHALATION RT-Q6H PRN 03/03/19 06/06/19 Rx Hfa Inhaler (Bulk)] #1 puff Famotidine [Pepcid] 20 mg PO Q12HR #30 tab 03/03/19 06/06/19 Rx Ergocalciferol [Vitamin D2 50,000 unit PO SA 05/05/19 06/06/19 History (DRISDOL)] Finasteride [Proscar] 5 mg PO DAILY 05/05/19 06/06/19 History HYDROcodone/APAP 5-325MG [[place] 1 - 2 tab PO Q6H PRN 05/05/19 06/06/19 History 5-325] Ipratropium-Albuterol Nebulize 3 ml INHALATION RT-Q4H PRN 05/05/19 06/06/19 History [Duoneb 0.5 mg-3 mg/3 ml Soln] Umeclidinium [place] [Incruse 1 puff INHALATION RT-DAILY 06/01/19 06/06/19 History Ellipta] Acetaminophen [Tylenol] 650 mg PO Q6H PRN 06/06/19 06/06/19 History Calcium Carbonate [Calcium] 600 mg PO DAILY 06/06/19 06/06/19 History Cyclobenzaprine [Flexeril] 10 mg PO HS 06/06/19 06/06/19 History Polyethylene Glycol 3350 [Miralax] 17 gm PO DAILY 06/06/19 06/06/19 History Allergies Allergy/AdvReac Type Severity Reaction Status Date / Time Iodinated Contrast Media Allergy Rash/Hives Verified 06/06/19 12:25 [Iodinated Contrast- Oral and IV Dye] latex Allergy Rash/Hives Verified 06/06/19 12:25 Physical Exam Vitals: Vital Signs Temp Pulse Pulse Resp BP BP Pulse Ox 06/06/19 11:30 97.7 F 85 16 127/86 96 06/06/19 10:05 97.6 F 52 L 30 H 104/74 100 06/06/19 09:00 98.2 F 75 20 107/90 100 06/06/19 08:05 88 06/06/19 08:00 76 18 104/66 98 06/06/19 07:55 92 06/06/19 07:01 97.6 F 82 20 112/79 96 Intake and Output 06/05/19 06/06/19 06/06/19 22:59 06:59 14:59 Other: # Voids 2 Weight 72.575 kg GENERAL EXAM: Alert, pleasant 74-year-old gentleman, on room air, comfortable in no apparent distress. HEAD: Normocephalic. EYES: Normal reaction of pupils, equal size. NOSE: Clear with pink turbinates. THROAT: No erythema or exudates. NECK: No masses, no JVD. CHEST: No chest wall deformity. LUNGS: Equal air entry with bilateral scattered rhonchi, diminished. CVS: S1 and S2 normal with no audible murmur, regular rhythm. ABDOMEN: No hepatosplenomegaly, normal bowel sounds, no guarding or rigidity. SPINE: No scoliosis or deformity SKIN: No rashes CENTRAL NERVOUS SYSTEM: No focal deficits, tone is normal in all 4 extremities. EXTREMITIES: There is trace peripheral edema. No clubbing, no cyanosis. Pe ripheral pulses are intact. Results - Laboratory Findings CBC and BMP: 06/06/19 07:30 06/06/19 07:30 PT/INR, D-dimer PT 10.6 sec (9.0-12.0) 06/06/19 07:30 INR 1.0 (<1.2) 06/06/19 07:30 Abnormal lab findings: Abnormal Labs 06/06/19 06/06/19 06/06/19 07:30 07:30 11:47 Eosinophils # 0.8 H Sodium 134 L Glucose 100 H POC Glucose (mg/dL) 126 H - Diagnostic Findings Chest x-ray: image reviewed (Evidence of COPD with no acute pulmonary process) Assessment and Plan Assessment: 1 Acute exacerbation of chronic obstructive pulmonary disease in a patient with FEV1 value 53% of predicted. The chest x-ray is free of any acute pulmonary infiltrates. The patient is maintained on Symbicort, Spiriva, albuterol. He continues to smoke 1 pack of cigarettes a day. Influenza screen is negative. Covid 19 screening pending. 2 Chronic and ongoing tobacco dependence of greater than 60 years. 3 Recent and frequent admissions for COPD. 4 Pulmonary nodules with negative PET scan. 5 Chronic shortness of breath secondary to above 6 Hypertension. 7 History of paroxysmal atrial fibrillation anticoagulated with Eliquis. 8 Benign prostatic hyperplasia, on Flomax. Plan Seen and evaluated by Dr. Tucker Chest x-ray and labs reviewed Continue Symbicort, Spiriva, albuterol Continue IV Solu-Medrol Smoking cessation counseling NicoDerm patch offered Probable discharge in the a.m. I, the cosigning physician, performed a history & physical examination of the patient. Lungs sounds with bilateral scattered rhonchi, diminished. Maintaining good O2 saturations in the 90s on room air. I discussed the assessment and plan of care with my nurse practitioner, Qi Saez. I attest to the above consultation as dictated by her. Time with Patient: Greater than 30
[2019-06-06 16:35] LABS: Glucose,Whole Blood 164 mg/dL (75-99)
[2019-06-06] MEDS: NICOTINE 14MG/24HR PATCH TRANSDERM SCH (17:23)
[2019-06-06 20:42] LABS: Glucose,Whole Blood 156 mg/dL (75-99)
[2019-06-06] MEDS: FAMOTIDINE 20 MG TAB PO SCH (20:42)
[2019-06-06] MEDS: TAMSULOSIN 0.4 MG CAP.ER.24H PO SCH (20:42)
[2019-06-06] MEDS: APIXABAN 5 MG TAB PO SCH (20:43)
[2019-06-06] MEDS: METOPROLOL TARTRATE 50 MG TAB PO SCH (20:43)
[2019-06-06] MEDS: SYMBICORT 160-4.5 MCG INHALER INHALATION SCH (21:01)
[2019-06-07] MEDS: methylPREDNISolone SOD SUCCI 125 MG/2 ML VIAL IV SCH ×5 (00:37→23:45)
[2019-06-07] MEDS: ACETAMINOPHEN TAB 325 MG TAB PO PRN (05:17)
[2019-06-07 07:06] LABS: Glucose,Whole Blood 140 mg/dL (75-99)
[2019-06-07] MEDS: POLYETHYLENE GLYCOL 3350 17 GM POWD.PACK PO SCH (07:13)
[2019-06-07] MEDS: METOPROLOL TARTRATE 50 MG TAB PO SCH ×2 (07:15→20:51)
[2019-06-07] MEDS: FAMOTIDINE 20 MG TAB PO SCH ×2 (07:15→20:51)
[2019-06-07] MEDS: APIXABAN 5 MG TAB PO SCH ×2 (07:15→20:51)
[2019-06-07] MEDS: FINASTERIDE 5 MG TAB PO SCH (07:15)
[2019-06-07] MEDS: INSULIN ASPART (NovoLOG) 100 UNIT/ML VIAL SQ SCH ×4 (07:16→20:51)
[2019-06-07] MEDS: NICOTINE 14MG/24HR PATCH TRANSDERM SCH (07:16)
[2019-06-07] MEDS: CALCIUM CARBONATE 500 MG CHEWABLE PO SCH (07:16)
[2019-06-07 07:59] LABS: Basophils % (A) 0 %; Eosinophils % (A) 0 %; HGB 14.5 gm/dL (13.0-17.5); Lymphocytes # (A) 0.8 k/uL (1.0-4.8); Lymphocytes % (A) 8 %; MCH 32.7 pg (25.0-35.0); MCHC 34.5 g/dL (31.0-37.0); MCV 94.8 fL (80.0-100.0); Mean Platelet Volume 7.9; Monocytes # (A) 0.2 k/uL (0-1.0); Monocytes % (A) 2 %; Neutrophils # (A) 9.2 k/uL (1.3-7.7); Neutrophils % (A) 89 %; Platelet Count 246 k/uL (150-450); RBC 4.43 m/uL (4.30-5.90); RDW 12.4 % (11.5-15.5); WBC 10.3 k/uL (3.8-10.6)
[2019-06-07 08:07] LABS: African American GFR (CKD) >90 (>60 ml/min/1.73 sqM); Anion Gap 10 mmol/L; Blood Urea Nitrogen 26 mg/dL (9-20); Calcium 9.4 mg/dL (8.4-10.2); Carbon Dioxide 22 mmol/L (22-30); Chloride 98 mmol/L (98-107); Glucose 140 mg/dL (74-99); Magnesium 2.1 mg/dL (1.6-2.3); Non-African American GFR(CKD) >90 (>60 ml/min/1.73 sqM); Potassium 4.7 mmol/L (3.5-5.1); Sodium 130 mmol/L (137-145)
[2019-06-07] MEDS: TIOTROPIUM 18 MCG/PUFF INHALER INHALATION SCH (09:04)
[2019-06-07] MEDS: SYMBICORT 160-4.5 MCG INHALER INHALATION SCH ×2 (09:04→21:17)
[2019-06-07] MEDS: ALBUTEROL HFA INHALER INHALATION SCH ×4 (09:04→21:17)
[2019-06-07 11:56] LABS: Glucose,Whole Blood 128 mg/dL (75-99)
[2019-06-07] MEDS ORDERED: FUROSEMIDE 40 MG TAB PO STA (13:22)
--- NOTE | 2019-06-07 13:51 | P.PN ---
Subjective Progress Note Date: 06/07/19 Principal diagnosis: Acute exacerbation of chronic obstructive pulmonary disease This is a delma 74-year-old male patient who follows with Dr. Lambert is his primary care provider. He has a history of proximal atrial fibrillation, benign prosthetic hypertrophy. He also follows in our office with a known history of moderately severe COPD with FEV1 of 53% of predicted maintained on Symbicort, Incruse, Ventolin HFA and albuterol updrafts when necessary. He is smoking 1 pack of cigarettes a day. He has had previous hospitalization for COPD exacerbation. Recently here in May 2019. He states he is taking his home pulmonary medications as prescribed. He presented here to the hospital again early this morning with complaints of increasing shortness of breath. He has a dry nonproductive cough. He denies any fever, chills or night sweats. Chest x- ray reveals evidence of COPD but no acute pulmonary process. White count 8.1. Hemoglobin 15.1. Sodium 134. Potassium 4.7. Creatinine 0.76. Influenza screen negative. Covid 19 testing is pending. He has been resumed on Symbicort, Spiriva, albuterol, IV Solu-Medrol. He is anticoagulated with Eliquis. The patient is seen today 06/07/2019 in follow-up on the regular medical floor. He is awake and alert in no acute distress. Sitting up in a chair at the bedside. Maintaining O2 saturations in the 90s on room air. He is afebrile. Hemodynamically stable. His breathing is back to his baseline. Blood culture reveals no growth. White count 10.3. Hemoglobin 14.5. Creatinine 0.66. Covid 19 testing was negative. Objective - Vital Signs Vital signs: Vital Signs Temp 97.4 F L 06/07/19 07:45 Pulse 98 06/07/19 07:45 Resp 17 06/07/19 07:45 BP 119/75 06/07/19 07:45 Pulse Ox 93 L 06/07/19 07:45 Intake & Output 06/06/19 06/07/19 06/07/19 18:59 06:59 18:59 Intake Total 200 Balance 200 Weight 72.575 kg Intake: Oral 200 Other: Voiding Method Toilet Toilet Urinal Urinal # Voids 2 1 # Bowel Movements 1 - Exam GENERAL EXAM: Alert, pleasant 74-year-old gentleman, on room air, comfortable in no apparent distress. HEAD: Normocephalic. EYES: Normal reaction of pupils, equal size. NOSE: Clear with pink turbinates. THROAT: No erythema or exudates. NECK: No masses, no JVD. CHEST: No chest wall deformity. LUNGS: Equal air entry with bilateral scattered rhonchi, diminished. CVS: S1 and S2 normal with no audible murmur, regular rhythm. ABDOMEN: No hepatosplenomegaly, normal bowel sounds, no guarding or rigidity. SPINE: No scoliosis or deformity SKIN: No rashes CENTRAL NERVOUS SYSTEM: No focal deficits, tone is normal in all 4 extremities. EXTREMITIES: There is trace peripheral edema. No clubbing, no cyanosis. Peripheral pulses are intact. - Labs CBC & Chem 7: 06/07/19 07:34 06/07/19 07:34 Labs: Abnormal Lab Results - Last 24 Hours (Table) 06/06/19 06/06/19 06/07/19 Range/Units 16:34 20:32 07:02 Neutrophils # (1.3-7.7) k/uL Lymphocytes # (1.0-4.8) k/uL Sodium (137-145) mmol/L BUN (9-20) mg/dL Glucose (74-99) mg/dL POC Glucose (mg/dL) 164 H 156 H 140 H (75-99) mg/dL 06/07/19 06/07/19 06/07/19 Range/Units 07:34 07:34 11:50 Neutrophils # 9.2 H (1.3-7.7) k/uL Lymphocytes # 0.8 L (1.0-4.8) k/uL Sodium 130 L (137-145) mmol/L BUN 26 H (9-20) mg/dL Glucose 140 H (74-99) mg/dL POC Glucose (mg/dL) 128 H (75-99) mg/dL Microbiology - Last 24 Hours (Table) 06/06/19 08:45 Blood Culture - Preliminary Blood No Growth after 24 hours Assessment and Plan Assessment: 1 Acute exacerbation of chronic obstructive pulmonary disease in a patient with FEV1 value 53% of predicted. The chest x-ray is free of any acute pulmonary infiltrates. The patient is maintained on Symbicort, Spiriva, albuterol. He continues to smoke 1 pack of cigarettes a day. Influenza screen is negative. Covid 19 screening is negative. 2 Chronic and ongoing tobacco dependence of greater than 60 years. 3 Recent and frequent admissions for COPD. 4 Pulmonary nodules with negative PET scan. 5 Chronic shortness of breath secondary to above 6 Hypertension. 7 History of paroxysmal atrial fibrillation anticoagulated with Eliquis. 8 Benign prostatic hyperplasia, on Flomax. Plan Seen and evaluated by Dr. Tucker Cleared for discharge from the pulmonary standpoiny Covid 19 screening negative Continue Symbicort, Spiriva, albuterol Continue prednisone taper starting at 40 mg daily for 4 days Smoking cessation counseling I, the cosigning physician, performed a history & physical examination of the patient. Lungs sounds with bilateral scattered rhonchi, diminished. Maintaining good O2 saturations in the 90s on room air. I discussed the assessment and plan of care with my nurse practitioner, Qi Saez. I attest to the above consultation as dictated by her.
[2019-06-07 16:53] LABS: Glucose,Whole Blood 188 mg/dL (75-99)
[2019-06-07 20:19] LABS: Glucose,Whole Blood 175 mg/dL (75-99)
[2019-06-07] MEDS: TAMSULOSIN 0.4 MG CAP.ER.24H PO SCH (20:51)
[2019-06-08] MEDS: ACETAMINOPHEN TAB 325 MG TAB PO PRN (00:45)
[2019-06-08] MEDS: methylPREDNISolone SOD SUCCI 125 MG/2 ML VIAL IV SCH (05:29)
[2019-06-08 06:59] LABS: Glucose,Whole Blood 133 mg/dL (75-99)
[2019-06-08] MEDS: CALCIUM CARBONATE 500 MG CHEWABLE PO SCH (08:08)
[2019-06-08] MEDS: FAMOTIDINE 20 MG TAB PO SCH (08:08)
[2019-06-08] MEDS: METOPROLOL TARTRATE 50 MG TAB PO SCH (08:08)
[2019-06-08] MEDS: FINASTERIDE 5 MG TAB PO SCH (08:08)
[2019-06-08] MEDS: APIXABAN 5 MG TAB PO SCH (08:08)
[2019-06-08] MEDS: INSULIN ASPART (NovoLOG) 100 UNIT/ML VIAL SQ SCH (08:09)
[2019-06-08] MEDS: NICOTINE 14MG/24HR PATCH TRANSDERM SCH (08:09)
[2019-06-08] MEDS: POLYETHYLENE GLYCOL 3350 17 GM POWD.PACK PO SCH (08:09)
[2019-06-08 08:16] VITALS: BP 140/77; PULSE 98; RESP 17; TEMP 97.7
[2019-06-08] MEDS: TIOTROPIUM 18 MCG/PUFF INHALER INHALATION SCH (08:53)
[2019-06-08] MEDS: ALBUTEROL HFA INHALER INHALATION SCH (08:53)
[2019-06-08] MEDS: SYMBICORT 160-4.5 MCG INHALER INHALATION SCH ×2 (08:54→08:56)
--- NOTE | 2019-06-08 10:38 | P.DS ---
Providers Date of admission: 06/06/19 08:42 Expected date of discharge: 06/08/19 Attending physician: Jeremiah Ortega Consults: 06/06/19 08:28 Consult Physician Routine Consulting Provider: Flakita Arvizu Consult Reason/Comments: COPD Do you want consulting provider notified?: Yes Primary care physician: [facility] Course: Final Diagnoses: Acute exacerbation of chronic obstructive pulmonary disease: influenza and COVID19 screening reported negative. Ongoing nicotine dependence, smoking cessation d/w patient Frequent, Recurrent admissions Pulmonary nodules with negative PET scan, pulmonary following Hypertension Chronic paroxysmal atrial fibrillation, anticoagulated on Eliquis Benign prostatic hyperplasia Hospital course:This is a 74 y/o male patient new to our practice as of last month. he is frequently admitted for COPD and continues to smoke. He c/o increased SOB over the past week with 1 previous ER visit on Saturday. He Denies any cp, pressure, nause or vomitting. He is c/o minimal constipation. He reports He needs meds updated. HE was on Symbicort and alburterol updrafts at home . He f/u with [facility].He has a h/o Afib and is on Eliquis and metoprolol. This AM he has already had IV steroids and antibioitcs and feels a bit better. Coronal virus reported not detected .Evaluated by pulmonary. Retained on nebulized bronchodilators, steroids with significant clinical improvement. Smoking cessation reinforced. Cleared by pulmonary for discharge. Patient is being discharged home in stable condition with guarded prognosis. The impression and plan of care has been dictated as directed. : I performed a history and examination of this patient, discussed the same with the dictator. I agree with the dictator's note ,documented as a scribe. Any additional findings or plans will be noted. Patient Condition at Discharge: Stable Plan - Discharge Summary New Discharge Prescriptions: New Nicotine 14Mg/24Hr Patch [Habitrol] 1 patch TRANSDERM DAILY #30 patch predniSONE 10 mg PO DIRECTED #30 tab Continue Tamsulosin HCl [Flomax] 0.8 mg PO HS Budesonide-Formot 160-4.5 Mcg [Symbicort 160-4.5 Mcg Inhaler] 2 puff INHALATION RT-BID Apixaban [Eliquis] 5 mg PO BID Metoprolol Tartrate [Lopressor] 50 mg PO BID Famotidine [Pepcid] 20 mg PO Q12HR #30 tab Albuterol Inhaler (Bulk) [Ventolin Hfa Inhaler (Bulk)] 1 - 2 puff INHALATION RT-Q6H PRN #1 puff PRN Reason: Shortness Of Breath Ipratropium-Albuterol Nebulize [Duoneb 0.5 mg-3 mg/3 ml Soln] 3 ml INHALATION RT-Q4H PRN PRN Reason: Shortness Of Breath HYDROcodone/APAP 5-325MG [[place] 5-325] 1 - 2 tab PO Q6H PRN PRN Reason: Pain Finasteride [Proscar] 5 mg PO DAILY Ergocalciferol [Vitamin D2 (DRISDOL)] 50,000 unit PO SA Umeclidinium [place] [Incruse Ellipta] 1 puff INHALATION RT-DAILY Polyethylene Glycol 3350 [Miralax] 17 gm PO DAILY Calcium Carbonate [Calcium] 600 mg PO DAILY Acetaminophen [Tylenol] 650 mg PO Q6H PRN PRN Reason: PAIN/FEVER Cyclobenzaprine [Flexeril] 10 mg PO HS Discharge Medication List Tamsulosin HCl [Flomax] 0.8 mg PO HS 03/24/18 [History] Budesonide-Formot 160-4.5 Mcg [Symbicort 160-4.5 Mcg Inhaler] 2 puff INHALATION RT-BID 04/20/18 [History] Apixaban [Eliquis] 5 mg PO BID 09/14/18 [History] Metoprolol Tartrate [Lopressor] 50 mg PO BID 02/04/19 [History] Albuterol Inhaler (Bulk) [Ventolin Hfa Inhaler (Bulk)] 1 - 2 puff INHALATION RT- Q6H PRN #1 puff 03/03/19 [Rx] Famotidine [Pepcid] 20 mg PO Q12HR #30 tab 03/03/19 [Rx] Ergocalciferol [Vitamin D2 (DRISDOL)] 50,000 unit PO SA 05/05/19 [History] Finasteride [Proscar] 5 mg PO DAILY 05/05/19 [History] HYDROcodone/APAP 5-325MG [[place] 5-325] 1 - 2 tab PO Q6H PRN 05/05/19 [History] Ipratropium-Albuterol Nebulize [Duoneb 0.5 mg-3 mg/3 ml Soln] 3 ml INHALATION RT-Q4H PRN 05/05/19 [History] Umeclidinium [place] [Incruse Ellipta] 1 puff INHALATION RT-DAILY 06/01/19 [History] Acetaminophen [Tylenol] 650 mg PO Q6H PRN 06/06/19 [History] Calcium Carbonate [Calcium] 600 mg PO DAILY 06/06/19 [History] Cyclobenzaprine [Flexeril] 10 mg PO HS 06/06/19 [History] Polyethylene Glycol 3350 [Miralax] 17 gm PO DAILY 06/06/19 [History] Nicotine 14Mg/24Hr Patch [Habitrol] 1 patch TRANSDERM DAILY #30 patch 06/08/19 [Rx] predniSONE 10 mg PO DIRECTED #30 tab 06/08/19 [Rx] Follow up Appointment(s)/Referral(s): Fernando Lambert Jr, [Primary Care Provider] - 3 Days Qi Saez NPC [Nurse Practitioner] - 2 Weeks
== END 2019-06-08 11:11 | disposition home or self-care (01) | DRG 192 ==
LOC: EC 06:59 → 6NMEDSUR 08:41 → OBSVTOIN 08:42 → 6NMEDSUR 09:40 → 4SSUR 09:49
PROVIDERS: ADMIT Family Medicine; ATTEND Family Medicine
DX: J44.1 Chronic obstructive pulmonary disease with (acute) exacerbation (principal); F17.210 Nicotine dependence, cigarettes, uncomplicated; I10 Essential (primary) hypertension; I48.0 Paroxysmal atrial fibrillation; N40.0 Benign prostatic hyperplasia without lower urinary tract symptoms; R91.8 Other nonspecific abnormal finding of lung field; Z20.828 Contact with and (suspected) exposure to other viral communicable diseases; Z79.01 Long term (current) use of anticoagulants; Z79.51 Long term (current) use of inhaled steroids; Z79.899 Other long term (current) drug therapy; Z91.041 Radiographic dye allergy status; Z91.040 Latex allergy status; Z98.42 Cataract extraction status, left eye; Z98.41 Cataract extraction status, right eye; Z96.1 Presence of intraocular lens; Z82.49 Family history of ischemic heart disease and other diseases of the circulatory system; Z82.0 Family history of epilepsy and other diseases of the nervous system
CPT/HCPCS: 36415; 71046; 80048; 80053; 83605; 83735; 83880; 84484; 85025; 85610; 85730; 87040; 87502; 87635; 93005; 94640; 96374; 96375; 99285

== ENCOUNTER 2019-07-21 22:30 | Emergency (ER) | payer MEDICARE ==
[2019-07-21 22:40] VITALS: RESP 18
[2019-07-21 23:13] VITALS: TEMP 97.9
--- NOTE | 2019-07-21 23:33 | ED ---
General Adult HPI - General Chief complaint: Back Pain/Injury Stated complaint: Lower Back Pain Time Seen by Provider: 07/21/19 22:56 Source: patient, RN notes reviewed, old records reviewed Mode of arrival: ambulatory Limitations: no limitations - History of Present Illness Initial comments: 74 yo female presenting for evaluation of back pain and left leg pain. Patient's states he had procedure done at outside hospital is mid back. He describes a procedure suggestive of kyphoplasty. He states this was one or 2 weeks ago. Patient is a poor historian regarding the exact procedure timing. He states he has been out of his Portia and has had increased pain in his mid and low back radiating to his left leg. He states the pain is worse with movement, worse with cough. He has history of COPD and states he has a chronic cough which is unchanged from baseline. Pain improved with rest. Denies bowel or bladder dysfunction. Denies sensory deficit. He is ambulatory. - Related Data Home Medications Medication Instructions Recorded Confirmed Tamsulosin HCl [Flomax] 0.8 mg PO HS 03/24/18 06/06/19 Budesonide-Formot 160-4.5 Mcg 2 puff INHALATION RT-BID 04/20/18 06/06/19 [Symbicort 160-4.5 Mcg Inhaler] Apixaban [Eliquis] 5 mg PO BID 09/14/18 06/06/19 Metoprolol Tartrate [Lopressor] 50 mg PO BID 02/04/19 06/06/19 Ergocalciferol [Vitamin D2 50,000 unit PO SA 05/05/19 06/06/19 (DRISDOL)] Finasteride [Proscar] 5 mg PO DAILY 05/05/19 06/06/19 HYDROcodone/APAP 5-325MG [[place] 1 - 2 tab PO Q6H PRN 05/05/19 06/06/19 5-325] Ipratropium-Albuterol Nebulize 3 ml INHALATION RT-Q4H PRN 05/05/19 06/06/19 [Duoneb 0.5 mg-3 mg/3 ml Soln] Umeclidinium [place] [Incruse 1 puff INHALATION RT-DAILY 06/01/19 06/06/19 Ellipta] Acetaminophen [Tylenol] 650 mg PO Q6H PRN 06/06/19 06/06/19 Calcium Carbonate [Calcium] 600 mg PO DAILY 06/06/19 06/06/19 Cyclobenzaprine [Flexeril] 10 mg PO HS 06/06/19 06/06/19 Polyethylene Glycol 3350 [Miralax] 17 gm PO DAILY 06/06/19 06/06/19 Previous Rx's Medication Instructions Recorded Albuterol Inhaler (Mhu) [Ventolin 1 - 2 puff INHALATION RT-Q6H PRN 03/03/19 Hfa Inhaler (Mhu)] #1 puff Famotidine [Pepcid] 20 mg PO Q12HR #30 tab 03/03/19 Nicotine 14Mg/24Hr Patch [Habitrol] 1 patch TRANSDERM DAILY #30 patch 06/08/19 predniSONE 10 mg PO DIRECTED #30 tab 06/08/19 Albuterol Nebulized [Ventolin 2.5 mg INHALATION Q4H #60 nebu 07/22/19 Nebulized] HYDROcodone/APAP 5-325MG [[place] 1 tab PO Q6HR PRN #12 tab 07/22/19 5-325] Allergies Allergy/AdvReac Type Severity Reaction Status Date / Time Iodinated Contrast Media Allergy Rash/Hives Verified 07/21/19 22:40 [Iodinated Contrast- Oral and IV Dye] latex Allergy Rash/Hives Verified 07/21/19 22:40 Review of Systems ROS Statement: Those systems with pertinent positive or pertinent negative responses have been documented in the HPI. ROS Other: All systems not noted in ROS Statement are negative. Past Medical History Past Medical History: Atrial Fibrillation, COPD, Prostate Disorder Additional Past Medical History / Comment(s): Paroxysmal Afib, BPH History of Any Multi-Drug Resistant Organisms: None Reported Past Surgical History: No Surgical Hx Reported, Back Surgery Additional Past Surgical History / Comment(s): Bilateral cataract removals-lens implants, colonoscopy, recent surgical procedure to the spine Mar 2019 Past Anesthesia/Blood Transfusion Reactions: No Reported Reaction Additional Past Anesthesia/Blood Transfusion Reaction / Comment(s): Has never received any blood transfusions. Past Psychological History: No Psychological Hx Reported Smoking Status: Current every day smoker Past Alcohol Use History: None Reported Past Drug Use History: None Reported - Past Family History Mother Family Medical History: AFIB, Dementia Father Family Medical History: Myocardial Infarction ([place]) Additional Family Medical History / Comment(s): in his 70's from [place] General Exam Limitations: no limitations General appearance: alert, in no apparent distress Head exam: Present: atraumatic, normocephalic Eye exam: Present: normal appearance, PERRL ENT exam: Present: normal exam Neck exam: Present: normal inspection. Absent: tenderness, meningismus Respiratory exam: Present: wheezes, rhonchi. Absent: respiratory distress, accessory muscle use Cardiovascular Exam: Present: regular rate, normal rhythm GI/Abdominal exam: Present: soft. Absent: distended, tenderness Extremities exam: Present: normal inspection, normal capillary refill, pedal edema Back exam: Present: tenderness, paraspinal tenderness, other (Injection sites are clean dry and intact, no signs of infection, well-healed) Neurological exam: Present: alert, oriented X3, normal gait. Absent: motor sensory deficit (Normal sensation bilateral extremities) Psychiatric exam: Present: normal affect, normal mood Skin exam: Present: warm, dry. Absent: cyanosis, diaphoretic Course Vital Signs 07/21/19 07/21/19 22:38 23:12 Temperature 97.9 F Pulse Rate 99 Respiratory 18 Rate Blood Pressure 117/68 O2 Sat by Pulse 95 Oximetry Medical Decision Making - Medical Decision Making 74-year-old male presents for evaluation of chronic back pain, recent kyphoplasty, and medication refill. He is out of his pain medication which she had been taking which was Portia. He additionally asked for refill of his albuterol. Pain does seem musculoskeletal with no alarming features. The injection sites on his thoracic spine are well-healed. X-ray performed showing kyphoplasty with some additional compression fractures. Patient states he has follow-up with his spinal surgeon in 2 days. He is requesting a refill of his pain medication and albuterol. Disposition Clinical Impression: Smoker, Compression fracture, Thoracic back pain Disposition: HOME SELF-CARE Condition: Fair Instructions (If sedation given, give patient instructions): Vertebroplasty (DC), Vertebral Compression Fracture (ED) Additional Instructions: Please follow up with your spinal surgeon, and primary care physician. Prescriptions: HYDROcodone/APAP 5-325MG [[place] 5-325] 1 tab PO Q6HR PRN #12 tab PRN Reason: Pain Albuterol Nebulized [Ventolin Nebulized] 2.5 mg INHALATION Q4H #60 nebu Is patient prescribed a controlled substance at d/c from ED?: No Referrals: Fernando Lambert Jr, [Primary Care Provider] - 1-2 days Time of Disposition: 00:08
--- NOTE | 2019-07-21 23:46 | XR ---
EXAMINATION TYPE: XR chest 2V DATE OF EXAM: 07/21/2019 COMPARISON: 06/01/2019 HISTORY: Cough TECHNIQUE: FINDINGS: There is some mild coarse interstitial pulmonary density throughout the lungs. Heart size i s normal. There is no heart failure. There is 2 level thoracic vertebroplasty. There is multilevel michele mbar vertebroplasty. There is osteopenia. There is no pleural effusion. There are no hilar masses. IMPRESSION: Pulmonary interstitial fibrosis unchanged. Normal heart.
--- NOTE | 2019-07-21 23:48 | XR ---
EXAMINATION TYPE: XR lumbar spine 2 or 3V DATE OF EXAM: 07/21/2019 COMPARISON: 03/01/2019 HISTORY: Back pain TECHNIQUE: 3 views FINDINGS: Vertebra have normal alignment. There is vertebroplasty at levels of L3 and L2 and L1 and T 12. There is mild compression deformity up to 25% at L1 and T12. The posterior elements are intact. T here is osteopenia. The sacroiliac joints are intact. IMPRESSION: Mild compression fractures. Osteopenia. Vertebral plasties are a change compared to old e xam. Compression of T12 and L1 is a change compared to old exam. There is L3 and L2 depression of the superior endplates 15% which is a change compared to old exam.
--- NOTE | 2019-07-21 23:50 | XR ---
EXAMINATION TYPE: XR thoracic spine 2V DATE OF EXAM: 07/21/2019 COMPARISON: Chest x-ray 06/06/2019 HISTORY: Back pain TECHNIQUE: 3 views FINDINGS: There is vertebroplasty at T12 and T9 and T8 vertebra with compression deformities up to 40 %. Fractures appear unchanged compared to old chest x-ray. I see no evidence of a new fracture. There is generalized osteopenia. Posterior elements are intact. There is no thoracic paraspinal mass. IMPRESSION: Thoracic multiple compression fractures unchanged. No acute fracture seen.
[2019-07-22 00:56] VITALS: BP 113/79; PULSE 96
== END 2019-07-22 00:26 | disposition home or self-care (01) ==
LOC: EC 22:30
DX: M48.54XA Collapsed vertebra, not elsewhere classified, thoracic region, initial encounter for fracture (principal); J44.9 Chronic obstructive pulmonary disease, unspecified; I48.0 Paroxysmal atrial fibrillation; N40.0 Benign prostatic hyperplasia without lower urinary tract symptoms; F17.200 Nicotine dependence, unspecified, uncomplicated; Z76.0 Encounter for issue of repeat prescription; Z79.899 Other long term (current) drug therapy; Z79.51 Long term (current) use of inhaled steroids; Z79.01 Long term (current) use of anticoagulants; Z91.040 Latex allergy status; Z91.041 Radiographic dye allergy status; Z98.890 Other specified postprocedural states
CPT/HCPCS: 71046; 72070; 72100; 99284

== ENCOUNTER 2019-07-29 04:12 | Emergency (ER) | payer MEDICARE ==
[2019-07-29 04:25] VITALS: TEMP 97.2
[2019-07-29] MEDS ORDERED: ALBUTEROL NEBULIZED 2.5 MG/3 ML INHALATION STA (04:41)
[2019-07-29] MEDS ORDERED: IPRATROPIUM 0.5 MG/2.5 ML NEBU INHALATION STA (04:41)
[2019-07-29] MEDS ORDERED: predniSONE 20 MG TAB PO STA (04:41)
[2019-07-29 05:26] LABS: Partial Thromboplastin Time 26.6 sec (22.0-30.0); Prothrombin Time 10.8 sec (9.0-12.0)
[2019-07-29 05:29] LABS: Basophils # (A) 0.1 k/uL (0-0.2); Basophils % (A) 1 %; Eosinophils # (A) 2.4 k/uL (0-0.7); Eosinophils % (A) 25 %; HCT 41.9 % (39.0-53.0); HGB 14.2 gm/dL (13.0-17.5); Lymphocytes # (A) 1.6 k/uL (1.0-4.8); Lymphocytes % (A) 17 %; MCH 33.3 pg (25.0-35.0); MCV 98.2 fL (80.0-100.0); Mean Platelet Volume 8.1; Monocytes # (A) 0.8 k/uL (0-1.0); Monocytes % (A) 8 %; Neutrophils # (A) 4.5 k/uL (1.3-7.7); Neutrophils % (A) 47 %; Platelet Count 256 k/uL (150-450); RBC 4.27 m/uL (4.30-5.90); RDW 13.4 % (11.5-15.5); WBC 9.5 k/uL (3.8-10.6)
--- NOTE | 2019-07-29 05:38 | XR ---
EXAMINATION TYPE: XR chest 1V DATE OF EXAM: 07/29/2019 COMPARISON: 07/21/2019 HISTORY: Short of breath TECHNIQUE: FINDINGS: Heart is normal. There is some coarsening of interstitial markings. There is no pleural eff usion. There are chest leads. Mediastinum is within normal limits. IMPRESSION: Interstitial pulmonary fibrotic changes stable compared to recent exam. Normal heart. No acute lung disease.
[2019-07-29 05:46] LABS: ALT 13 U/L (4-49); AST 27 U/L (17-59); African American GFR (CKD) >90 (>60 ml/min/1.73 sqM); Alkaline Phosphatase 103 U/L (38-126); Anion Gap 7 mmol/L; Blood Urea Nitrogen 21 mg/dL (9-20); Calcium 9.9 mg/dL (8.4-10.2); Carbon Dioxide 25 mmol/L (22-30); Chloride 103 mmol/L (98-107); Glucose 105 mg/dL (74-99); Non-African American GFR(CKD) >90 (>60 ml/min/1.73 sqM); Sodium 135 mmol/L (137-145); Total Bilirubin 0.4 mg/dL (0.2-1.3); Total Protein 6.4 g/dL (6.3-8.2)
[2019-07-29 05:53] LABS: Potassium 4.4 mmol/L (3.5-5.1)
[2019-07-29 06:28] VITALS: RESP 20
--- NOTE | 2019-07-29 06:32 | ED ---
SOB HPI - General Chief Complaint: Shortness of Breath Stated Complaint: KEERTHI Time Seen by Provider: 07/29/19 04:24 Source: patient Mode of arrival: wheelchair Limitations: no limitations - History of Present Illness MD Complaint: shortness of breath, cough Onset/Timin -: days(s) Severity: moderate Consistency: constant Improves With: nothing Worsens With: nothing Known History Of: COPD Associated Symptoms: cough Treatments Prior to Arrival: bronchodilator - Related Data Home Oxygen Therapy: No Home Medications Medication Instructions Recorded Confirmed Tamsulosin HCl [Flomax] 0.8 mg PO HS 03/24/18 06/06/19 Budesonide-Formot 160-4.5 Mcg 2 puff INHALATION RT-BID 04/20/18 06/06/19 [Symbicort 160-4.5 Mcg Inhaler] Apixaban [Eliquis] 5 mg PO BID 09/14/18 06/06/19 Metoprolol Tartrate [Lopressor] 50 mg PO BID 02/04/19 06/06/19 Ergocalciferol [Vitamin D2 50,000 unit PO SA 05/05/19 06/06/19 (DRISDOL)] Finasteride [Proscar] 5 mg PO DAILY 05/05/19 06/06/19 HYDROcodone/APAP 5-325MG [[place] 1 - 2 tab PO Q6H PRN 05/05/19 06/06/19 5-325] Ipratropium-Albuterol Nebulize 3 ml INHALATION RT-Q4H PRN 05/05/19 06/06/19 [Duoneb 0.5 mg-3 mg/3 ml Soln] Umeclidinium [place] [Incruse 1 puff INHALATION RT-DAILY 06/01/19 06/06/19 Ellipta] Acetaminophen [Tylenol] 650 mg PO Q6H PRN 06/06/19 06/06/19 Calcium Carbonate [Calcium] 600 mg PO DAILY 06/06/19 06/06/19 Cyclobenzaprine [Flexeril] 10 mg PO HS 06/06/19 06/06/19 Polyethylene Glycol 3350 [Miralax] 17 gm PO DAILY 06/06/19 06/06/19 Previous Rx's Medication Instructions Recorded Albuterol Inhaler (Mhu) [Ventolin 1 - 2 puff INHALATION RT-Q6H PRN 03/03/19 Hfa Inhaler (Mhu)] #1 puff Famotidine [Pepcid] 20 mg PO Q12HR #30 tab 03/03/19 Nicotine 14Mg/24Hr Patch [Habitrol] 1 patch TRANSDERM DAILY #30 patch 06/08/19 predniSONE 10 mg PO DIRECTED #30 tab 06/08/19 Albuterol Nebulized [Ventolin 2.5 mg INHALATION Q4H #60 nebu 07/22/19 Nebulized] HYDROcodone/APAP 5-325MG [[place] 1 tab PO Q6HR PRN #12 tab 07/22/19 5-325] Azithromycin [Zithromax Z-pack] 250 mg PO DIRECTED #6 tab 07/29/19 predniSONE [Deltasone] 20 mg PO BID #8 tab 07/29/19 Allergies Allergy/AdvReac Type Severity Reaction Status Date / Time Iodinated Contrast Media Allergy Rash/Hives Verified 07/29/19 04:25 [Iodinated Contrast- Oral and IV Dye] latex Allergy Rash/Hives Verified 07/29/19 04:25 Review of Systems ROS Statement: Those systems with pertinent positive or pertinent negative responses have been documented in the HPI. ROS Other: All systems not noted in ROS Statement are negative. Constitutional: Denies: fever, chills Respiratory: Reports: cough, dyspnea, wheezes. Denies: hemoptysis Cardiovascular: Reports: edema. Denies: chest pain, palpitations, orthopnea, syncope Gastrointestinal: Denies: abdominal pain, vomiting, diarrhea Genitourinary: Denies: dysuria Musculoskeletal: Denies: back pain Skin: Denies: rash Neurological: Denies: headache, weakness, numbness Past Medical History Past Medical History: Atrial Fibrillation, COPD, Prostate Disorder Additional Past Medical History / Comment(s): Paroxysmal Afib, BPH History of Any Multi-Drug Resistant Organisms: None Reported Past Surgical History: No Surgical Hx Reported, Back Surgery Additional Past Surgical History / Comment(s): Bilateral cataract removals-lens implants, colonoscopy, recent surgical procedure to the spine Mar 2019 Past Anesthesia/Blood Transfusion Reactions: No Reported Reaction Additional Past Anesthesia/Blood Transfusion Reaction / Comment(s): Has never re ceived any blood transfusions. Past Psychological History: No Psychological Hx Reported Smoking Status: Current every day smoker Past Alcohol Use History: None Reported Past Drug Use History: None Reported - Past Family History Mother Family Medical History: AFIB, Dementia Father Family Medical History: Myocardial Infarction ([place]) Additional Family Medical History / Comment(s): in his 70's [place] General Exam Limitations: no limitations General appearance: alert, in distress Head exam: Present: atraumatic, normocephalic Eye exam: Present: normal appearance. Absent: scleral icterus, conjunctival injection ENT exam: Present: normal oropharynx Neck exam: Present: normal inspection Respiratory exam: Present: respiratory distress, wheezes, accessory muscle use. Absent: rales, rhonchi, chest wall tenderness, decreased breath sounds, prolonged expiratory Cardiovascular Exam: Present: normal rhythm, tachycardia, normal heart sounds. Absent: systolic murmur, diastolic murmur, rubs, gallop GI/Abdominal exam: Present: soft. Absent: distended, tenderness, guarding, rebound, mass Extremities exam: Present: normal inspection, normal capillary refill, pedal edema (There is symmetric edema at the ankles bilaterally.). Absent: calf tenderness Back exam: Present: normal inspection. Absent: CVA tenderness (R), CVA tenderness (L) Neurological exam: Present: alert Skin exam: Present: warm, dry, intact, normal color. Absent: rash Course Vital Signs 07/29/19 07/29/19 07/29/19 04:23 04:32 04:52 Temperature 97.2 F L Pulse Rate 112 H 101 H Respiratory 30 H 30 H Rate Blood Pressure 159/98 O2 Sat by Pulse 90 L Oximetry 07/29/19 07/29/19 07/29/19 05:00 05:15 06:00 Temperature Pulse Rate 112 H 102 H 115 H Respiratory 16 20 Rate Blood Pressure 122/89 142/91 O2 Sat by Pulse 98 98 Oximetry 07/29/19 06:39 Temperature 97.2 F L Pulse Rate 111 H Respiratory 20 Rate Blood Pressure 139/95 O2 Sat by Pulse 96 Oximetry Medical Decision Making - Medical Decision Making Patient is 74-year-old man with history of underlying lung disease, including COPD and some fibrosis. The patient has had marked improvement in his respiratory status and he does want to go home. I did offer admission for further treatment as well as to have pulmonology see him. The patient states that he is feeling markedly better, and he does agree to see the paste up copy camera operator as outpatient. He will return should the symptoms recur or if there is worsening in anyway. - Lab Data Result diagrams: 07/29/19 04:27 07/29/19 04:27 Lab Results 07/29/19 07/29/19 07/29/19 Range/Units 04:27 04: 04:27 WBC 9.5 (3.8-10.6) k/uL RBC 4.27 L (4.30-5.90) m/uL Hgb 14.2 (13.0-17.5) gm/dL Hct 41.9 (39.0-53.0) % MCV 98.2 (80.0-100.0) fL MCH 33.3 (25.0-35.0) pg MCHC 34.0 (31.0-37.0) g/dL RDW 13.4 (11.5-15.5) % Plt Count 256 (150-450) k/uL Neutrophils % 47 % Lymphocytes % 17 % Monocytes % 8 % Eosinophils % 25 % Basophils % 1 % Neutrophils # 4.5 (1.3-7.7) k/uL Lymphocytes # 1.6 (1.0-4.8) k/uL Monocytes # 0.8 (0-1.0) k/uL Eosinophils # 2.4 H (0-0.7) k/uL Basophils # 0.1 (0-0.2) k/uL Manual Slide Review Performed PT 10.8 (9.0-12.0) sec INR 1.0 (<1.2) APTT 26.6 (22.0-30.0) sec Sodium 135 L (137-145) mmol/L Potassium 4.4 (3.5-5.1) mmol/L Chloride 103 (98-107) mmol/L Carbon Dioxide 25 (22-30) mmol/L Anion Gap 7 mmol/L BUN 21 H (9-20) mg/dL Creatinine 0.70 (0.66-1.25) mg/dL Est GFR (CKD-EPI)AfAm >90 (>60 ml/min/1.73 sqM) Est GFR (CKD-EPI)NonAf >90 (>60 ml/min/1.73 sqM) Glucose 105 H (74-99) mg/dL Plasma Lactic Acid [place] (0.7-2.0) mmol/L Calcium 9.9 (8.4-10.2) mg/dL Total Bilirubin 0.4 (0.2-1.3) mg/dL AST 27 (17-59) U/L ALT 13 (4-49) U/L Alkaline Phosphatase 103 (38-126) U/L Troponin I (0.000-0.034) ng/mL NT-Pro-B Natriuret Pep pg/mL Total Protein 6.4 (6.3-8.2) g/dL Albumin 4.0 (3.5-5.0) g/dL Coronavirus (PCR) (Not Detected) 07/29/19 07/29/19 07/29/19 Range/Units 04:27 04:27 04:27 WBC (3.8-10.6) k/uL RBC (4.30-5.90) m/uL Hgb (13.0-17.5) gm/dL Hct (39.0-53.0) % MCV (80.0-100.0) fL MCH (25.0-35.0) pg MCHC (31.0-37.0) g/dL RDW (11.5-15.5) % Plt Count (150-450) k/uL Neutrophils % % Lymphocytes % % Monocytes % % Eosinophils % % Basophils % % Neutrophils # (1.3-7.7) k/uL Lymphocytes # (1.0-4.8) k/uL Monocytes # (0-1.0) k/uL Eosinophils # (0-0.7) k/uL Basophils # (0-0.2) k/uL Manual Slide Review PT (9.0-12.0) sec INR (<1.2) APTT (22.0-30.0) sec Sodium (137-145) mmol/L Potassium (3.5-5.1) mmol/L Chloride (98-107) mmol/L Carbon Dioxide (22-30) mmol/L Anion Gap mmol/L BUN (9-20) mg/dL Creatinine (0.66-1.25) mg/dL Est GFR (CKD-EPI)AfAm (>60 ml/min/1.73 sqM) Est GFR (CKD-EPI)NonAf (>60 ml/min/1.73 sqM) Glucose (74-99) mg/dL Plasma Lactic Acid [place] 1.3 (0.7-2.0) mmol/L Calcium (8.4-10.2) mg/dL Total Bilirubin (0.2-1.3) mg/dL AST (17-59) U/L ALT (4-49) U/L Alkaline Phosphatase (38-126) U/L Troponin I <0.012 (0.000-0.034) ng/mL NT-Pro-B Natriuret Pep 95 pg/mL Total Protein (6.3-8.2) g/dL Albumin (3.5-5.0) g/dL Coronavirus (PCR) (Not Detected) 07/29/19 Range/Units 05:00 WBC (3.8-10.6) k/uL RBC (4.30-5.90) m/uL Hgb (13.0-17.5) gm/dL Hct (39.0-53.0) % MCV (80.0-100.0) fL MCH (25.0-35.0) pg MCHC (31.0-37.0) g/dL RDW (11.5-15.5) % Plt Count (150-450) k/uL Neutrophils % % Lymphocytes % % Monocytes % % Eosinophils % % Basophils % % Neutrophils # (1.3-7.7) k/uL Lymphocytes # (1.0-4.8) k/uL Monocytes # (0-1.0) k/uL Eosinophils # (0-0.7) k/uL Basophils # (0-0.2) k/uL Manual Slide Review PT (9.0-12.0) sec INR (<1.2) APTT (22.0-30.0) sec Sodium (137-145) mmol/L Potassium (3.5-5.1) mmol/L Chloride (98-107) mmol/L Carbon Dioxide (22-30) mmol/L Anion Gap mmol/L BUN (9-20) mg/dL Creatinine (0.66-1.25) mg/dL Est GFR (CKD-EPI)AfAm (>60 ml/min/1.73 sqM) Est GFR (CKD-EPI)NonAf (>60 ml/min/1.73 sqM) Glucose (74-99) mg/dL Plasma Lactic Acid Santi (0.7-2.0) mmol/L Calcium (8.4-10.2) mg/dL Total Bilirubin (0.2-1.3) mg/dL AST (17-59) U/L ALT (4-49) U/L Alkaline Phosphatase (38-126) U/L Troponin I (0.000-0.034) ng/mL NT-Pro-B Natriuret Pep pg/mL Total Protein (6.3-8.2) g/dL Albumin (3.5-5.0) g/dL Coronavirus (PCR) Not Detected (Not Detected) - EKG Data -: EKG Interpreted by Ri EKG shows normal: sinus rhythm, axis (Normal), intervals (Normal), QRS complexes (Normal), ST-T waves (Normal) Rate: tachycardia (Rate 108 bpm) Disposition Clinical Impression: COPD with acute exacerbation Disposition: HOME SELF-CARE Condition: Good Instructions (If sedation given, give patient instructions): Chronic Bronchitis (ED) Prescriptions: predniSONE [Deltasone] 20 mg PO BID #8 tab Azithromycin [Zithromax Z-pack] 250 mg PO DIRECTED #6 tab Is patient prescribed a controlled substance at d/c from ED?: No Referrals: Fernando Lambert Jr, [Primary Care Provider] - 1-2 days
[2019-07-29 06:45] VITALS: BP 139/95; PULSE 111
== END 2019-07-29 06:52 | disposition home or self-care (01) ==
LOC: EC 04:12
DX: J44.1 Chronic obstructive pulmonary disease with (acute) exacerbation (principal); I48.0 Paroxysmal atrial fibrillation; F17.200 Nicotine dependence, unspecified, uncomplicated; Z79.01 Long term (current) use of anticoagulants; Z79.51 Long term (current) use of inhaled steroids; Z79.899 Other long term (current) drug therapy; Z91.041 Radiographic dye allergy status; Z91.040 Latex allergy status
CPT/HCPCS: 99285; 36415; 94640; 93005; 83880; 80053; 83605; 84484; 85025; 85610; 85730; 87635; 71045; J7512

== ENCOUNTER 2019-07-31 04:18 | Emergency (ER) | payer MEDICARE ==
[2019-07-31] MEDS ORDERED: HYDROmorphone 0.5 MG/0.5 ML SYRINGE IVP STA (04:44)
--- NOTE | 2019-07-31 05:16 | XR ---
EXAMINATION TYPE: XR lumbar spine 2 or 3V DATE OF EXAM: 07/31/2019 COMPARISON: 07/21/2019 HISTORY: Low back pain TECHNIQUE: 3 views FINDINGS: There is mild lumbar dextroscoliosis. There is multilevel vertebroplasty from L3 to T12. Th ere is mild compression deformity of multiple vertebra. Compression is up to 35%. Sacroiliac joints a re intact. IMPRESSION: Multilevel vertebroplasty. Compression fractures unchanged compared to recent exam.
--- NOTE | 2019-07-31 06:27 | ED ---
Back Pain [facility] - General Chief Complaint: Back Pain/Injury Stated Complaint: Back pain Time Seen by Provider: 07/31/19 04:38 Source: patient Limitations: no limitations - History of Present Illness Initial Comments: This patient is a 74-year-old man with history of multiple vertebral compression fractures and chronic intermittent back pain. The patient presents for worsening of lumbar back pain. He states that he had been in his usual state until this evening when he sneezed. He states that he then experienced sharp bilateral low back pain. He is not having any weakness or numbness of the legs. No change in bladder or bowel function. No saddle anesthesia. The patient states that he does coincidentally have an appointment with his back surgeon on August 03, and was hoping to have some pain relief to help bridge him through until then. MD Complaint: back pain -: hour(s) Similar Symptoms Previously: Yes Place: home Radiation: none Severity: severe Quality: aching Consistency: constant Improves With: none Worsens With: medication Context: other Associated Symptoms: denies other symptoms - Related Data Home Medications Medication Instructions Recorded Confirmed Tamsulosin HCl [Flomax] 0.8 mg PO HS 03/24/18 06/06/19 Budesonide-Formot 160-4.5 Mcg 2 puff INHALATION RT-BID 04/20/18 06/06/19 [Symbicort 160-4.5 Mcg Inhaler] Apixaban [Eliquis] 5 mg PO BID 09/14/18 06/06/19 Metoprolol Tartrate [Lopressor] 50 mg PO BID 02/04/19 06/06/19 Ergocalciferol [Vitamin D2 50,000 unit PO SA 05/05/19 06/06/19 (DRISDOL)] Finasteride [Proscar] 5 mg PO DAILY 05/05/19 06/06/19 HYDROcodone/APAP 5-325MG [[place] 1 - 2 tab PO Q6H PRN 05/05/19 06/06/19 5-325] Ipratropium-Albuterol Nebulize 3 ml INHALATION RT-Q4H PRN 05/05/19 06/06/19 [Duoneb 0.5 mg-3 mg/3 ml Soln] Umeclidinium [place] [Incruse 1 puff INHALATION RT-DAILY 06/01/19 06/06/19 Ellipta] Acetaminophen [Tylenol] 650 mg PO Q6H PRN 06/06/19 06/06/19 Calcium Carbonate [Calcium] 600 mg PO DAILY 06/06/19 06/06/19 Cyclobenzaprine [Flexeril] 10 mg PO HS 06/06/19 06/06/19 Polyethylene Glycol 3350 [Miralax] 17 gm PO DAILY 06/06/19 06/06/19 Previous Rx's Medication Instructions Recorded Albuterol Inhaler (Mhu) [Ventolin 1 - 2 puff INHALATION RT-Q6H PRN 03/03/19 Hfa Inhaler (Mhu)] #1 puff Famotidine [Pepcid] 20 mg PO Q12HR #30 tab 03/03/19 Nicotine 14Mg/24Hr Patch [Habitrol] 1 patch TRANSDERM DAILY #30 patch 06/08/19 predniSONE 10 mg PO DIRECTED #30 tab 06/08/19 Albuterol Nebulized [Ventolin 2.5 mg INHALATION Q4H #60 nebu 07/22/19 Nebulized] HYDROcodone/APAP 5-325MG [[place] 1 tab PO Q6HR PRN #12 tab 07/22/19 5-325] Azithromycin [Zithromax Z-pack] 250 mg PO DIRECTED #6 tab 07/29/19 predniSONE [Deltasone] 20 mg PO BID #8 tab 07/29/19 Tamsulosin [Flomax] 0.4 mg PO DAILY #30 cap 07/31/19 Allergies Allergy/AdvReac Type Severity Reaction Status Date / Time Iodinated Contrast Media Allergy Rash/Hives Verified 07/31/19 04:25 [Iodinated Contrast- Oral and IV Dye] latex Allergy Rash/Hives Verified 07/31/19 04:25 Review of Systems ROS Statement: Those systems with pertinent positive or pertinent negative responses have been documented in the HPI. ROS Other: All systems not noted in ROS Statement are negative. Constitutional: Denies: fever, chills, weakness Respiratory: Denies: cough, dyspnea Cardiovascular: Denies: chest pain, palpitations, edema Gastrointestinal: Denies: abdominal pain, nausea, vomiting, diarrhea, constipation Genitourinary: Denies: dysuria, hematuria, testicular pain Musculoskeletal: Reports: as per HPI, back pain Skin: Denies: rash Neurological: Denies: headache, weakness, numbness, paresthesias Past Medical History Past Medical History: Atrial Fibrillation, COPD, Prostate Disorder Additional Past Medical History / Comment(s): Paroxysmal Afib, BPH History of Any Multi-Drug Resistant Organisms: None Reported Past Surgical History: No Surgical Hx Reported, Back Surgery Additional Past Surgical History / Comment(s): Bilateral cataract removals-lens implants, colonoscopy, recent surgical procedure to the spine Mar 2019 Past Anesthesia/Blood Transfusion Reactions: No Reported Reaction Additional Past Anesthesia/Blood Transfusion Reaction / Comment(s): Has never received any blood transfusions. Past Psychological History: No Psychological Hx Reported Smoking Status: Current every day smoker Past Alcohol Use History: None Reported Past Drug Use History: None Reported - Past Family History Mother Family Medical History: AFIB, Dementia Father Family Medical History: Myocardial Infarction ([place]) Additional Family Medical History / Comment(s): in his 70's [place] General Exam Limitations: no limitations General appearance: alert, in no apparent distress Head exam: Present: atraumatic, normocephalic Eye exam: Present: normal appearance. Absent: scleral icterus, conjunctival injection Respiratory exam: Present: wheezes. Absent: respiratory distress, rales, rhonchi, stridor Cardiovascular Exam: Present: regular rate, normal rhythm, normal heart sounds. Absent: systolic murmur, diastolic murmur, rubs, gallop GI/Abdominal exam: Present: soft. Absent: distended, tenderness, guarding, rebound, rigid, pulsatile mass Extremities exam: Present: normal inspection, normal capillary refill. Absent: pedal edema, calf tenderness Back exam: Present: normal inspection. Absent: CVA tenderness (R), CVA tenderness (L), muscle spasm, paraspinal tenderness, vertebral tenderness Neurological exam: Present: alert, normal gait, reflexes normal. Absent: motor sensory deficit Skin exam: Present: warm, dry, intact, normal color. Absent: rash Course Vital Signs 07/31/19 07/31/19 04:21 06:51 Temperature 97.9 F 97.7 F Pulse Rate 99 101 H Respiratory 18 28 H Rate Blood Pressure 149/87 144/94 O2 Sat by Pulse 96 95 Oximetry Medical Decision Making - Medical Decision Making Patient is 74-year-old man with multiple previous compression fractures. He had acute onset of low back pain following a sneeze. Imaging does not reveal new compression fracture. He is feeling much better following analgesia and does wish to go home. He does have close follow-up with his back specialist and discussed return parameters Disposition Clinical Impression: Compression fracture, Lumbar back pain Disposition: HOME SELF-CARE Condition: Good Instructions (If sedation given, give patient instructions): Acute Low Back Pain (ED) Prescriptions: Tamsulosin [Flomax] 0.4 mg PO DAILY #30 cap Is patient prescribed a controlled substance at d/c from ED?: No Referrals: Fernando Lambert Jr, [Primary Care Provider] - 1-2 days
[2019-07-31 06:52] VITALS: BP 144/94; PULSE 101; RESP 28; TEMP 97.7
== END 2019-07-31 06:53 | disposition home or self-care (01) ==
LOC: EC 04:18
DX: M48.56XA Collapsed vertebra, not elsewhere classified, lumbar region, initial encounter for fracture (principal); I48.0 Paroxysmal atrial fibrillation; J44.9 Chronic obstructive pulmonary disease, unspecified; F17.200 Nicotine dependence, unspecified, uncomplicated; Z79.01 Long term (current) use of anticoagulants; Z79.51 Long term (current) use of inhaled steroids; Z79.899 Other long term (current) drug therapy; Z91.041 Radiographic dye allergy status; Z91.040 Latex allergy status
CPT/HCPCS: 72100; 99283; 96374; J1170

== ENCOUNTER 2019-08-15 03:46 | Emergency (ER) | payer MEDICARE ==
[2019-08-15 03:55] VITALS: BP 144/82; PULSE 86; RESP 22; TEMP 97.6
[2019-08-15 04:54] LABS: Appearance,Urine Clear (Clear); Bilirubin,Urine Negative (Negative); Blood,Urine Negative (Negative); Color,Urine Light Yellow; Glucose,Urine (UA) Negative (Negative); Ketones,Urine Negative (Negative); Leukocyte Esterase,Urine Negative (Negative); Nitrite,Urine Negative (Negative); Protein,Urine Negative (Negative); Specific Gravity,Urine 1.007 (1.001-1.035); Urobilinogen,Urine <2.0 mg/dL (<2.0)
--- NOTE | 2019-08-15 04:56 | ED ---
Male Urogenital HPI - General Chief complaint: Urogenital Stated complaint: Difficulty urinating Time Seen by Provider: 08/15/19 04:13 Source: patient Mode of arrival: ambulatory Limitations: no limitations - History of Present Illness Initial comments: Shawn is a 74-year-old male very well-known to the ER for frequent visits for urinary retention. Patient reports he was previously taking Flomax twice daily but it was decreased to once daily. He states that he's been having difficulty urinating for about a day he doesn't have any dysuria. States that he hadn't urinated for nearly 8 hours which prompted him to come to the ER. - Related Data Home Medications Medication Instructions Recorded Confirmed Tamsulosin HCl [Flomax] 0.8 mg PO HS 03/24/18 06/06/19 Budesonide-Formot 160-4.5 Mcg 2 puff INHALATION RT-BID 04/20/18 06/06/19 [Symbicort 160-4.5 Mcg Inhaler] Apixaban [Eliquis] 5 mg PO BID 09/14/18 06/06/19 Metoprolol Tartrate [Lopressor] 50 mg PO BID 02/04/19 06/06/19 Ergocalciferol [Vitamin D2 50,000 unit PO SA 05/05/19 06/06/19 (DRISDOL)] Finasteride [Proscar] 5 mg PO DAILY 05/05/19 06/06/19 HYDROcodone/APAP 5-325MG [[place] 1 - 2 tab PO Q6H PRN 05/05/19 06/06/19 5-325] Ipratropium-Albuterol Nebulize 3 ml INHALATION RT-Q4H PRN 05/05/19 06/06/19 [Duoneb 0.5 mg-3 mg/3 ml Soln] Umeclidinium [place] [Incruse 1 puff INHALATION RT-DAILY 06/01/19 06/06/19 Ellipta] Acetaminophen [Tylenol] 650 mg PO Q6H PRN 06/06/19 06/06/19 Calcium Carbonate [Calcium] 600 mg PO DAILY 06/06/19 06/06/19 Cyclobenzaprine [Flexeril] 10 mg PO HS 06/06/19 06/06/19 Polyethylene Glycol 3350 [Miralax] 17 gm PO DAILY 06/06/19 06/06/19 Previous Rx's Medication Instructions Recorded Albuterol Inhaler (Mhu) [Ventolin 1 - 2 puff INHALATION RT-Q6H PRN 03/03/19 Hfa Inhaler (Mhu)] #1 puff Famotidine [Pepcid] 20 mg PO Q12HR #30 tab 03/03/19 Nicotine 14Mg/24Hr Patch [Habitrol] 1 patch TRANSDERM DAILY #30 patch 06/08/19 predniSONE 10 mg PO DIRECTED #30 tab 06/08/19 Albuterol Nebulized [Ventolin 2.5 mg INHALATION Q4H #60 nebu 07/22/19 Nebulized] HYDROcodone/APAP 5-325MG [[place] 1 tab PO Q6HR PRN #12 tab 07/22/19 5-325] Azithromycin [Zithromax Z-pack] 250 mg PO DIRECTED #6 tab 07/29/19 predniSONE [Deltasone] 20 mg PO BID #8 tab 07/29/19 Tamsulosin [Flomax] 0.4 mg PO DAILY #30 cap 07/31/19 Allergies Allergy/AdvReac Type Severity Reaction Status Date / Time Iodinated Contrast Media Allergy Rash/Hives Verified 08/15/19 03:55 [Iodinated Contrast- Oral and IV Dye] latex Allergy Rash/Hives Verified 08/15/19 03:55 Review of Systems ROS Statement: Those systems with pertinent positive or pertinent negative responses have been documented in the HPI. ROS Other: All systems not noted in ROS Statement are negative. Past Medical History Past Medical History: Atrial Fibrillation, COPD, Prostate Disorder Additional Past Medical History / Comment(s): Paroxysmal Afib, BPH History of Any Multi-Drug Resistant Organisms: None Reported Past Surgical History: No Surgical Hx Reported, Back Surgery Additional Past Surgical History / Comment(s): Bilateral cataract removals-lens implants, colonoscopy, recent surgical procedure to the spine Mar 2019 Past Anesthesia/Blood Transfusion Reactions: No Reported Reaction Additional Past Anesthesia/Blood Transfusion Reaction / Comment(s): Has never received any blood transfusions. Past Psychological History: No Psychological Hx Reported Smoking Status: Current every day smoker Past Alcohol Use History: None Reported Past Drug Use History: None Reported - Past Family History Mother Family Medical History: AFIB, Dementia Father Family Medical History: Myocardial Infarction ([place]) Additional Family Medical History / Comment(s): in his 70's [place] General Exam - General Exam Comments Initial Comments: Physical Exam GENERAL: Patient is well-developed and well-nourished. Patient is nontoxic and well-hydrated and is in no distress. HENT: Normocephalic, Atraumatic. EYES: PERRL, EOMI PULMONARY: Unlabored respirations. CARDIOVASCULAR: RRR Warm and well perfused extremities ABDOMEN: Non-distended SKIN: No rashes or bruising : Deferred NEUROLOGIC: Alert and oriented Normal speech Normal gait MUSCULOSKELETAL: Moving all extremities with no apparent injury PSYCHIATRIC: No SI/HI Limitations: no limitations Course Vital Signs 08/15/19 03:52 Temperature 97.6 F Pulse Rate 86 Respiratory 22 Rate Blood Pressure 144/82 O2 Sat by Pulse 97 Oximetry Medical Decision Making - Medical Decision Making In the ER he was able to urinate somewhat but still had over 400 mL of urine in the bladder. Discussed with patient options for straight cath versus Munoz catheter. Patient is scheduled to have back surgery this week and since he will have a catheter for the surgery anyways is agreeable to having a catheter placed at this time. - Lab Data Lab Results 08/15/19 Range/Units 04:46 Urine Color Light Yellow Urine Appearance Clear (Clear) Urine pH 6.0 (5.0-8.0) Ur Specific [place] 1.007 (1.001-1.035) Urine Protein Negative (Negative) Urine Glucose (UA) Negative (Negative) Urine Ketones Negative (Negative) Urine Blood Negative (Negative) Urine Nitrite Negative (Negative) Urine Bilirubin Negative (Negative) Urine Urobilinogen <2.0 (<2.0) mg/dL Ur Leukocyte Esterase Negative (Negative) Disposition Clinical Impression: Acute retention of urine Disposition: HOME SELF-CARE Condition: Stable Instructions (If sedation given, give patient instructions): Munoz Catheter Placement and Care (ED) Is patient prescribed a controlled substance at d/c from ED?: No Referrals: Fernando Lambert Jr, DO [Primary Care Provider] - 1-2 days
== END 2019-08-15 05:56 | disposition home or self-care (01) ==
LOC: EC 03:46
DX: R33.9 Retention of urine, unspecified (principal); J44.9 Chronic obstructive pulmonary disease, unspecified; I48.0 Paroxysmal atrial fibrillation; N40.0 Benign prostatic hyperplasia without lower urinary tract symptoms; F17.200 Nicotine dependence, unspecified, uncomplicated; Z79.51 Long term (current) use of inhaled steroids; Z79.01 Long term (current) use of anticoagulants; Z79.899 Other long term (current) drug therapy; Z91.041 Radiographic dye allergy status; Z91.040 Latex allergy status
CPT/HCPCS: 51702; 51798; 81003; 99284

== ENCOUNTER 2019-08-16 13:04 | Emergency (ER) | payer MEDICARE ==
--- NOTE | 2019-08-16 13:51 | ED ---
Male Urogenital HPI - General Source: patient Mode of arrival: ambulatory Limitations: no limitations <Michelle Guajardo - Last Filed: 08/16/19 14:55> <Serena Espinosa - Last Filed: 08/24/19 14:10> - General Chief complaint: Urogenital Stated complaint: problem with cath Time Seen by Provider: 08/16/19 13:17 - History of Present Illness Initial comments: Patient is a 74-year-old male presenting to the emergency Department with complaints of a catheter issue. Patient states he had a catheter placed very early yesterday morning secondary to urinary retention. Patient states he feels like he is having lots of urge with little output. Patient states he did change a almost full bag this morning. He admits to some mild discomfort around the catheter. He states the catheter will stay in place until his back surgery on Saturday. He denies any recent fever, chills. He denies any nausea, vomiting, abdominal pain other than some mild pressure. He denies any chest pain or shortness of breath. He has no further complaints. (Michelle Guajardo) - Related Data Home Medications Medication Instructions Recorded Confirmed Tamsulosin HCl [Flomax] 0.8 mg PO HS 03/24/18 08/21/19 Budesonide-Formot 160-4.5 Mcg 2 puff INHALATION RT-BID 04/20/18 08/21/19 [Symbicort 160-4.5 Mcg Inhaler] Apixaban [Eliquis] 5 mg PO BID 09/14/18 08/21/19 Metoprolol Tartrate [Lopressor] 50 mg PO BID 02/04/19 08/21/19 Ergocalciferol [Vitamin D2 50,000 unit PO SA 05/05/19 08/21/19 (DRISDOL)] Finasteride [Proscar] 5 mg PO DAILY 05/05/19 08/21/19 Ipratropium-Albuterol Nebulize 3 ml INHALATION RT-Q4H PRN 05/05/19 08/21/19 [Duoneb 0.5 mg-3 mg/3 ml Soln] Umeclidinium [place] [Incruse 1 puff INHALATION RT-DAILY 06/01/19 08/21/19 Ellipta] Acetaminophen [Tylenol] 650 mg PO Q6H PRN 06/06/19 08/21/19 Calcium Carbonate [Calcium] 600 mg PO DAILY 06/06/19 08/21/19 Albuterol Inhaler [Ventolin Hfa 1 puff INHALATION RT-TID PRN 08/21/19 08/21/19 Inhaler] Albuterol Nebulized [Ventolin 2.5 mg INHALATION RT-Q4H 08/21/19 08/21/19 Nebulized] Alendronate Sodium [Fosamax] 70 mg PO GROVES 08/21/19 08/21/19 HYDROcodone/APAP 7.5-325MG [[place] 1 tab PO Q4H PRN 08/21/19 08/21/19 7.5-325] Previous Rx's Medication Instructions Recorded Famotidine [Pepcid] 20 mg PO Q12HR #30 tab 03/03/19 Cephalexin [Keflex] 500 mg PO Q6HR 7 Days #28 cap 08/16/19 Ondansetron Odt [Zofran Odt] 4 mg PO Q8HR PRN #10 tab 08/21/19 Allergies Allergy/AdvReac Type Severity Reaction Status Date / Time Iodinated Contrast Media Allergy Rash/Hives Verified 08/21/19 11:42 [Iodinated Contrast- Oral and IV Dye] latex Allergy Rash/Hives Verified 08/21/19 11:42 Review of Systems ROS Other: All systems not noted in ROS Statement are negative. <Michelle Guajardo - Last Filed: 08/16/19 14:55> ROS Other: All systems not noted in ROS Statement are negative. <Serena Espinosa - Last Filed: 08/24/19 14:10> ROS Statement: Those systems with pertinent positive or pertinent negative responses have been documented in the HPI. Past Medical History Past Medical History: Atrial Fibrillation, COPD, Prostate Disorder Additional Past Medical History / Comment(s): Paroxysmal Afib, BPH History of Any Multi-Drug Resistant Organisms: None Reported Past Surgical History: No Surgical Hx Reported, Back Surgery Additional Past Surgical History / Comment(s): Bilateral cataract removals-lens implants, colonoscopy, recent surgical procedure to the spine Mar 2019 Past Anesthesia/Blood Transfusion Reactions: No Reported Reaction Additional Past Anesthesia/Blood Transfusion Reaction / Comment(s): Has never received any blood transfusions. Past Psychological History: No Psychological Hx Reported Smoking Status: Current every day smoker Past Alcohol Use History: None Reported Past Drug Use History: None Reported - Past Family History Mother Family Medical History: AFIB, Dementia Father Family Medical History: Myocardial Infarction ([place]) Additional Family Medical History / Comment(s): in his 70's [place] <CasandraMichelle Cherri - Last Filed: 08/16/19 14:55> General Exam Limitations: no limitations <Michelle Guajardo - Last Filed: 08/16/19 14:55> - General Exam Comments Initial Comments: GENERAL: Well-appearing, well-nourished and in no acute distress. HEAD: Atraumatic, normocephalic. EYES: Pupils equal round and reactive to light, extraocular movements intact, sclera anicteric, conjunctiva are normal. ENT: TMs normal, nares patent, oropharynx clear without exudates. Moist mucous membranes. NECK: Normal range of motion, supple without lymphadenopathy or JVD. LUNGS: Breath sounds clear to auscultation bilaterally and equal. No wheezes rales or rhonchi. HEART: Regular rate and rhythm without murmurs, rubs or gallops. ABDOMEN: Some mild pressure with palpation of the lower suprapubic area. No other abdominal pain with palpation. Soft, normoactive bowel sounds. No guarding, no rebound. No masses appreciated. : Deferred EXTREMITIES: Normal range of motion, no pitting or edema. No clubbing or cyanosis. NEUROLOGICAL: Normal speech, normal gait. PSYCH: Normal mood, normal affect. SKIN: Warm, Dry, normal turgor, no rashes or lesions noted. (Michelle Guajardo) Course Vital Signs 08/16/19 08/16/19 13:10 14:42 Temperature 98.4 F Pulse Rate 102 H 90 Respiratory 20 18 Rate Blood Pressure 132/83 128/78 O2 Sat by Pulse 96 96 Oximetry Medical Decision Making <Michelle Guajardo - Last Filed: 08/16/19 14:55> <Serena Espinosa - Last Filed: 08/24/19 14:10> - Medical Decision Making Patient is a 74-year-old male here with complaints of catheter issues. He had a catheter placed earlier yesterday morning secondary to retention. He is having urge with little output. Bladder scan showed only 11 mL's in his bladder. UA shows positive nitrate, bacteria, 36 WBC. Patient will be given 1 g of Rocephin in the ER to be started on Keflex 4 times a day. Patient is agreement with this plan of care. He is stable for discharge at this time. We will leave catheter in place as it is draining properly. Return parameters were discussed with the patient and he verbalized understanding. Patient is in agreement with this plan of care. Case discussed with Dr. Espinosa. (Michelle Guajardo) I was available for consultation in the emergency department. The history and physical exam were done by the midlevel provider. I was consulted for this patients care. I reviewed the case with the midlevel provider and based on their presentation of the patient, I agree with the assessment, medical decision making and plan of care as documented. Chart was dictated using Submittable dictation software. Attempts were made to correct any dictation errors however some typographical errors may persist. Patient was seen during a national state of emergency due to the Covid-19 pandemic. (Serena Espinosa) - Lab Data Lab Results 08/16/19 Range/Units 13:40 Urine Color Light Red Urine Appearance Cloudy (Clear) Urine pH 6.0 (5.0-8.0) Ur Specific [place] 1.024 (1.001-1.035) Urine Protein 2+ H (Negative) Urine Glucose (UA) Negative (Negative) Urine Ketones 1+ H (Negative) Urine Blood Large H (Negative) Urine Nitrite Positive (Negative) Urine Bilirubin Negative (Negative) Urine Urobilinogen 2.0 (<2.0) mg/dL Ur Leukocyte Esterase Moderate H (Negative) Urine RBC >182 H (0-5) /hpf Urine WBC 36 H (0-5) /hpf Calcium Oxalate Crystal Occasional H (None) /hpf Urine Bacteria Occasional H (None) /hpf Urine Mucus Many H (None) /hpf Disposition Is patient prescribed a controlled substance at d/c from ED?: No <Michelle Guajardo - Last Filed: 08/16/19 14:55> <Serena Espinosa - Last Filed: 08/24/19 14:10> Clinical Impression: UTI (urinary tract infection) Disposition: HOME SELF-CARE Condition: Stable Instructions (If sedation given, give patient instructions): Urinary Tract Infection in Men (ED) Additional Instructions: Please return to the Emergency Department if symptoms worsen or any other concerns. Increase water intake. Take antibiotic as prescribed. Prescriptions: Cephalexin [Keflex] 500 mg PO Q6HR 7 Days #28 cap Referrals: Fernando Lambert Jr, [Primary Care Provider] - 1-2 days
[2019-08-16 14:03] LABS: Appearance,Urine Cloudy (Clear); Bacteria,Urine Occasional /hpf; Bilirubin,Urine Negative (Negative); Blood,Urine Large (Negative); Calcium Oxalate Crystals,Urine Occasional /hpf; Color,Urine Light Red; Glucose,Urine (UA) Negative (Negative); Ketones,Urine 1+ (Negative); Leukocyte Esterase,Urine Moderate (Negative); Mucus,Urine Many /hpf; Nitrite,Urine Positive (Negative); Protein,Urine 2+ (Negative); RBC,Urine >182 /hpf (0-5); Specific Gravity,Urine 1.024 (1.001-1.035); WBC,Urine 36 /hpf (0-5)
[2019-08-16] MEDS ORDERED: cefTRIAXone 1,000 MG VIAL (IM USE) IM STA (14:06)
[2019-08-16 14:43] VITALS: BP 128/78; PULSE 90; RESP 18; TEMP 98.4
== END 2019-08-16 14:45 | disposition home or self-care (01) ==
LOC: EC 13:04
DX: N39.0 Urinary tract infection, site not specified (principal); J44.9 Chronic obstructive pulmonary disease, unspecified; I48.0 Paroxysmal atrial fibrillation; N40.0 Benign prostatic hyperplasia without lower urinary tract symptoms; Z79.51 Long term (current) use of inhaled steroids; Z79.899 Other long term (current) drug therapy; Z79.01 Long term (current) use of anticoagulants; F17.200 Nicotine dependence, unspecified, uncomplicated; Z91.041 Radiographic dye allergy status; Z91.040 Latex allergy status
CPT/HCPCS: 51798; 81001; 87086; 96372; 99284; J0696; 87077; 87186

== ENCOUNTER 2019-08-16 21:55 | Emergency (ER) | payer MEDICARE ==
[2019-08-16 22:04] VITALS: BP 120/83; PULSE 100; RESP 20; TEMP 98.2
[2019-08-16 23:22] LABS: Appearance,Urine Cloudy (Clear); Bilirubin,Urine Negative (Negative); Blood,Urine Large (Negative); Color,Urine Dark Brown; Glucose,Urine (UA) Negative (Negative); Ketones,Urine 1+ (Negative); Leukocyte Esterase,Urine Moderate (Negative); Mucus,Urine Many /hpf; Nitrite,Urine Negative (Negative); PH, Urine 5.5 (5.0-8.0); Protein,Urine 2+ (Negative); RBC,Urine >182 /hpf (0-5); Specific Gravity,Urine 1.019 (1.001-1.035); Urobilinogen,Urine <2.0 mg/dL (<2.0); WBC,Urine 97 /hpf (0-5)
[2019-08-16] MEDS ORDERED: CEPHALEXIN 500MG STARTER PACK 4 CAP BTL PO STA (23:54)
--- NOTE | 2019-08-16 23:54 | ED ---
General Adult HPI - General Chief complaint: Urogenital Stated complaint: Blood in urine Time Seen by Provider: 08/16/19 22:06 Source: patient, RN notes reviewed, old records reviewed Mode of arrival: ambulatory Limitations: no limitations - History of Present Illness Initial comments: 74-year-old male patient presents to ED for evaluation of blood in his urine. Patient had a Munoz catheter placed earlier today due to urinary retention. Patient has history of enlarged prostate. Patient reports that he began noticing blood in his urine. Patient is anticoagulated on eliquis however he is stopping this today because he is due for back surgery next week. He reports that the catheter is uncomfortable however denies any focal areas of pain otherwise he was started on antibiotics for a possible urinary tract infection earlier today. He denies any other complaints. Systemic: Pt denies fatigue, fever/chills, rash. Pt denies weakness, night sweats, weight loss. Neuro: Pt denies headache, visual disturbances, syncope or pre-syncope. HEENT: Pt denies ocular discharge or irritation, otalgia, rhinorrhea, pharyngitis or notable lymphadenopathy. Cardiopulmonary: Pt denies chest pain, SOB, heart palpitations, dyspnea on exertion. Abdominal/GI: Pt denies abdominal pain, n/v/d. MSK: Pt denies myalgia, loss of strength or function in extremities. Neuro: Pt denies new onset weakness, paresthesias. - Related Data Home Medications Medication Instructions Recorded Confirmed Tamsulosin HCl [Flomax] 0.8 mg PO HS 03/24/18 06/06/19 Budesonide-Formot 160-4.5 Mcg 2 puff INHALATION RT-BID 04/20/18 06/06/19 [Symbicort 160-4.5 Mcg Inhaler] Apixaban [Eliquis] 5 mg PO BID 09/14/18 06/06/19 Metoprolol Tartrate [Lopressor] 50 mg PO BID 02/04/19 06/06/19 Ergocalciferol [Vitamin D2 50,000 unit PO SA 05/05/19 06/06/19 (DRISDOL)] Finasteride [Proscar] 5 mg PO DAILY 05/05/19 06/06/19 HYDROcodone/APAP 5-325MG [[place] 1 - 2 tab PO Q6H PRN 05/05/19 06/06/19 5-325] Ipratropium-Albuterol Nebulize 3 ml INHALATION RT-Q4H PRN 05/05/19 06/06/19 [Duoneb 0.5 mg-3 mg/3 ml Soln] Umeclidinium [place] [Incruse 1 puff INHALATION RT-DAILY 06/01/19 06/06/19 Ellipta] Acetaminophen [Tylenol] 650 mg PO Q6H PRN 06/06/19 06/06/19 Calcium Carbonate [Calcium] 600 mg PO DAILY 06/06/19 06/06/19 Cyclobenzaprine [Flexeril] 10 mg PO HS 06/06/19 06/06/19 Polyethylene Glycol 3350 [Miralax] 17 gm PO DAILY 06/06/19 06/06/19 Previous Rx's Medication Instructions Recorded Albuterol Inhaler (Mhu) [Ventolin 1 - 2 puff INHALATION RT-Q6H PRN 03/03/19 Hfa Inhaler (Mhu)] #1 puff Famotidine [Pepcid] 20 mg PO Q12HR #30 tab 03/03/19 Nicotine 14Mg/24Hr Patch [Habitrol] 1 patch TRANSDERM DAILY #30 patch 06/08/19 predniSONE 10 mg PO DIRECTED #30 tab 06/08/19 Albuterol Nebulized [Ventolin 2.5 mg INHALATION Q4H #60 nebu 07/22/19 Nebulized] HYDROcodone/APAP 5-325MG [[place] 1 tab PO Q6HR PRN #12 tab 07/22/19 5-325] Azithromycin [Zithromax Z-pack] 250 mg PO DIRECTED #6 tab 07/29/19 predniSONE [Deltasone] 20 mg PO BID #8 tab 07/29/19 Tamsulosin [Flomax] 0.4 mg PO DAILY #30 cap 07/31/19 Cephalexin [Keflex] 500 mg PO Q6HR 7 Days #28 cap 08/16/19 Allergies Allergy/AdvReac Type Severity Reaction Status Date / Time Iodinated Contrast Media Allergy Rash/Hives Verified 08/16/19 22:04 [Iodinated Contrast- Oral and IV Dye] latex Allergy Rash/Hives Verified 08/16/19 22:04 Review of Systems ROS Statement: Those systems with pertinent positive or pertinent negative responses have been documented in the HPI. ROS Other: All systems not noted in ROS Statement are negative. Past Medical History Past Medical History: Atrial Fibrillation, COPD, Prostate Disorder Additional Past Medical History / Comment(s): Paroxysmal Afib, BPH History of Any Multi-Drug Resistant Organisms: None Reported Past Surgical History: No Surgical Hx Reported, Back Surgery Additional Past Surgical History / Comment(s): Bilateral cataract removals-lens implants, colonoscopy, recent surgical procedure to the spine Mar 2019 Past Anesthesia/Blood Transfusion Reactions: No Reported Reaction Additional Past Anesthesia/Blood Transfusion Reaction / Comment(s): Has never received any blood transfusions. Past Psychological History: No Psychological Hx Reported Smoking Status: Current every day smoker Past Alcohol Use History: None Reported Past Drug Use History: None Reported - Past Family History Mother Family Medical History: AFIB, Dementia Father Family Medical History: Myocardial Infarction ([place]) Additional Family Medical History / Comment(s): in his 70's [place] General Exam - General Exam Comments Initial Comments: Constitutional: NAD, AOX3, Pt has pleasant affect. HEENT: NC/AT, trachea midline. . Mucous membranes moist. Eyes PERRLA, EOM intact. There is no scleral icterus. No pallor noted. Cardiopulmonary: RRR, no murmurs, rubs or gallops, no JVD noted. Lungs CTAB in anterior and posterior [place]. No peripheral edema. Abdominal exam: Abdomen soft and non-distended. Abdomen non-tender to palpation in all 4 quadrants. Bowel sounds active in LLQ. Neuro: CN II-XII grossly intact. No nuchal rigidity. No raccon eyes, no smith sign. MSK: Full active ROM in upper and lower extremities, 5/5 stregnth. : Area of catheter insertion is inspected, no signs of trauma noted, no blood from meatus, no testicular tenderness, no skin changes. Limitations: no limitations Course Vital Signs 08/16/19 22:00 Temperature 98.2 F Pulse Rate 100 Respiratory 20 Rate Blood Pressure 120/83 O2 Sat by Pulse 95 Oximetry Medical Decision Making - Medical Decision Making 74-year-old male patient presents to ED for evaluation of blood in his urine. Patient had a Munoz catheter placed earlier today due to urinary retention. Patient has history of enlarged prostate. Patient reports that he began noticing blood in his urine. Patient is anticoagulated on eliquis however he is stopping this today because he is due for back surgery next week. He reports that the catheter is uncomfortable however denies any focal areas of pain otherwise he was started on antibiotics for a possible urinary tract infection earlier today. He denies any other complaints. Pt VSS, afebrile. Physical exam displayed: Area of catheter insertion is inspected, no signs of trauma noted, no blood from meatus, no testicular tenderness, no skin changes. UA was repeated, no significant change from prior. I offered to remove catheter from patient. He declines. The catheter appears to be draining well a bladder scan is performed which displayed an empty bladder. He reports that he'll just keep it on and he'll watch the urine and drink lots of fluids. Patient will follow-up with his urologist as scheduled, will follow up with primary care for her tomorrow and will return to ER if condition worsens. Case discussed with Dr. Crespo, - Lab Data Lab Results 08/16/19 Range/Units 22:52 Urine Color Dark Brown Urine Appearance Cloudy (Clear) Urine pH 5.5 (5.0-8.0) Ur Specific [place] 1.019 (1.001-1.035) Urine Protein 2+ H (Negative) Urine Glucose (UA) Negative (Negative) Urine Ketones 1+ H (Negative) Urine Blood Large H (Negative) Urine Nitrite Negative (Negative) Urine Bilirubin Negative (Negative) Urine Urobilinogen <2.0 (<2.0) mg/dL Ur Leukocyte Esterase Moderate H (Negative) Urine RBC >182 H (0-5) /hpf Urine WBC 97 H (0-5) /hpf Urine Mucus Many H (None) /hpf Disposition Clinical Impression: Hematuria Disposition: HOME SELF-CARE Condition: Stable Instructions (If sedation given, give patient instructions): Hematuria (ED) Additional Instructions: Take antibiotics as directed. Follow up with primary care provider and urologist as soon as possible. Return to ER if condition worsens. Is patient prescribed a controlled substance at d/c from ED?: No Referrals: Fernando Lambert Jr, [Primary Care Provider] - 1-2 days
== END 2019-08-17 00:04 | disposition home or self-care (01) ==
LOC: EC 21:55
DX: R31.9 Hematuria, unspecified (principal); R33.9 Retention of urine, unspecified; F17.200 Nicotine dependence, unspecified, uncomplicated; Z79.01 Long term (current) use of anticoagulants; Z79.51 Long term (current) use of inhaled steroids; Z79.899 Other long term (current) drug therapy; Z91.041 Radiographic dye allergy status; Z91.040 Latex allergy status
CPT/HCPCS: 99284 ×2; 96372; 51798; 81001; 87086; 87077; 87186; J0696

== ENCOUNTER 2019-08-21 04:00 | Emergency (ER) | payer MEDICARE ==
[2019-08-21 04:11] VITALS: TEMP 97.4
[2019-08-21 05:01] LABS: Basophils % (A) 1 %; Eosinophils # (A) 0.6 k/uL (0-0.7); Eosinophils % (A) 8 %; HGB 13.7 gm/dL (13.0-17.5); Lymphocytes % (A) 13 %; MCH 33.7 pg (25.0-35.0); MCHC 34.4 g/dL (31.0-37.0); Mean Platelet Volume 7.9; Monocytes # (A) 0.6 k/uL (0-1.0); Monocytes % (A) 8 %; Neutrophils # (A) 5.4 k/uL (1.3-7.7); Neutrophils % (A) 69 %; Platelet Count 185 k/uL (150-450); RBC 4.08 m/uL (4.30-5.90); RDW 12.8 % (11.5-15.5); WBC 7.8 k/uL (3.8-10.6)
--- NOTE | 2019-08-21 05:03 | ED ---
Dizziness HPI - General Chief Complaint: Dizziness Stated Complaint: Dizziness Time Seen by Provider: 08/21/19 04:21 Source: patient, family Mode of arrival: ambulatory Limitations: no limitations - History of Present Illness Initial Comments: This patient is 74-year-old man who presents with complaint that he is feeling off balance and dizzy since this evening. Patient had been in [facility] and was just released yesterday following a kyphoplasty which she had had for vertebral compression fracture. Patient states that he had gone home and then he had tried to get up to use the bathroom and noticed that he was feeling off balance. He also was feeling very tremulous. Patient denies fever or chills. No chest pain, dyspnea or cough. He is not having significant back or abdomen pain. He has not noted change in urination. Regarding bowel movements he was feeling like there may be an element of constipation. MD Complaint: dizziness, lightheadedness Onset/Timin -: days(s) Timing: gradual onset Description: off-balance, difficulty walking History of Same: No History of Trauma: No Severity: moderate Improves With: remaining still Worsens With: movement Associated Symptoms: denies other symptoms - Related Data Home Medications Medication Instructions Recorded Confirmed Tamsulosin HCl [Flomax] 0.8 mg PO HS 03/24/18 06/06/19 Budesonide-Formot 160-4.5 Mcg 2 puff INHALATION RT-BID 04/20/18 06/06/19 [Symbicort 160-4.5 Mcg Inhaler] Apixaban [Eliquis] 5 mg PO BID 09/14/18 06/06/19 Metoprolol Tartrate [Lopressor] 50 mg PO BID 02/04/19 06/06/19 Ergocalciferol [Vitamin D2 50,000 unit PO SA 05/05/19 06/06/19 (DRISDOL)] Finasteride [Proscar] 5 mg PO DAILY 05/05/19 06/06/19 HYDROcodone/APAP 5-325MG [[place]gu[place] 1 - 2 tab PO Q6H PRN 05/05/19 06/06/19 5-325] Ipratropium-Albuterol Nebulize 3 ml INHALATION RT-Q4H PRN 05/05/19 06/06/19 [Duoneb 0.5 mg-3 mg/3 ml Soln] Umeclidinium [place] [Incruse 1 puff INHALATION RT-DAILY 06/01/19 06/06/19 Ellipta] Acetaminophen [Tylenol] 650 mg PO Q6H PRN 06/06/19 06/06/19 Calcium Carbonate [Calcium] 600 mg PO DAILY 06/06/19 06/06/19 Cyclobenzaprine [Flexeril] 10 mg PO HS 06/06/19 06/06/19 Polyethylene Glycol 3350 [Miralax] 17 gm PO DAILY 06/06/19 06/06/19 Previous Rx's Medication Instructions Recorded Albuterol Inhaler (Mhu) [Ventolin 1 - 2 puff INHALATION RT-Q6H PRN 03/03/19 Hfa Inhaler (Mhu)] #1 puff Famotidine [Pepcid] 20 mg PO Q12HR #30 tab 03/03/19 Nicotine 14Mg/24Hr Patch [Habitrol] 1 patch TRANSDERM DAILY #30 patch 06/08/19 predniSONE 10 mg PO DIRECTED #30 tab 06/08/19 Albuterol Nebulized [Ventolin 2.5 mg INHALATION Q4H #60 nebu 07/22/19 Nebulized] HYDROcodone/APAP 5-325MG [[place] 1 tab PO Q6HR PRN #12 tab 07/22/19 5-325] Azithromycin [Zithromax Z-pack] 250 mg PO DIRECTED #6 tab 07/29/19 predniSONE [Deltasone] 20 mg PO BID #8 tab 07/29/19 Tamsulosin [Flomax] 0.4 mg PO DAILY #30 cap 07/31/19 Cephalexin [Keflex] 500 mg PO Q6HR 7 Days #28 cap 08/16/19 Allergies Allergy/AdvReac Type Severity Reaction Status Date / Time Iodinated Contrast Media Allergy Rash/Hives Verified 08/21/19 04:11 [Iodinated Contrast- Oral and IV Dye] latex Allergy Rash/Hives Verified 08/21/19 04:11 Review of Systems ROS Statement: Those systems with pertinent positive or pertinent negative responses have been documented in the HPI. ROS Other: All systems not noted in ROS Statement are negative. Constitutional: Denies: fever, chills Eyes: Denies: vision change Respiratory: Denies: cough, dyspnea Cardiovascular: Denies: chest pain, palpitations, orthopnea, edema Gastrointestinal: Reports: constipation. Denies: abdominal pain, nausea, vomiting, diarrhea Genitourinary: Denies: dysuria, hematuria, testicular pain Musculoskeletal: Denies: back pain Skin: Denies: rash Neurological: Denies: headache, weakness, numbness Past Medical History Past Medical History: Atrial Fibrillation, COPD, Prostate Disorder Additional Past Medical History / Comment(s): Paroxysmal Afib, BPH History of Any Multi-Drug Resistant Organisms: None Reported Past Surgical History: No Surgical Hx Reported, Back Surgery Additional Past Surgical History / Comment(s): Bilateral cataract removals-lens implants, colonoscopy, recent surgical procedure to the spine Mar 2019 Past Anesthesia/Blood Transfusion Reactions: No Reported Reaction Additional Past Anesthesia/Blood Transfusion Reaction / Comment(s): Has never received any blood transfusions. Past Psychological History: No Psychological Hx Reported Smoking Status: Current every day smoker Past Alcohol Use History: None Reported Past Drug Use History: None Reported - Past Family History Mother Family Medical History: AFIB, Dementia Father Family Medical History: Myocardial Infarction ([place]) Additional Family Medical History / Comment(s): in his 70's [place] General Exam Limitations: no limitations General appearance: alert, in no apparent distress Head exam: Present: atraumatic, normocephalic Eye exam: Present: normal appearance. Absent: scleral icterus, conjunctival injection ENT exam: Present: normal oropharynx Neck exam: Present: normal inspection, full ROM Respiratory exam: Present: normal lung sounds bilaterally. Absent: respiratory distress, wheezes, rales, rhonchi, stridor Cardiovascular Exam: Present: regular rate, normal rhythm, normal heart sounds. Absent: systolic murmur, diastolic murmur, rubs, gallop GI/Abdominal exam: Present: soft. Absent: distended, tenderness, guarding, rebound, rigid, mass Extremities exam: Present: normal inspection, normal capillary refill. Absent: pedal edema, calf tenderness Back exam: Present: normal inspection. Absent: CVA tenderness (R), CVA tenderness (L) Neurological exam: Present: alert Skin exam: Present: warm, dry, intact, normal color. Absent: rash Course Vital Signs 08/21/19 04:07 Temperature 97.4 F L Pulse Rate 101 H Respiratory 20 Rate Blood Pressure 146/89 O2 Sat by Pulse 97 Oximetry EKG Findings - EKG Results: EKG: interpreted by PEREZ LOW, sinus rhythm (Rate 96 bpm), normal axis, normal QRS, normal ST/T, no acute changes Medical Decision Making - Medical Decision Making On reevaluation, the patient states that he is feeling somewhat better, though he is feeling as if constipation may be the main issue. I discussed different methods of approaching this problem and he at this point would like to try taking magnesium citrate at home. He states that if this is not effective he will return. I did offer to discuss case with his primary physician and see about keeping him in the hospital for day but he is definitely against that. He will return should any new symptoms develop or if the magnesium citrate is not relieving his symptoms. - Lab Data Result diagrams: 08/21/19 04:50 08/21/19 04:50 Lab Results 08/21/19 08/21/19 08/21/19 Range/Units 04:50 04:50 04:50 WBC 7.8 (3.8-10.6) k/uL RBC 4.08 L (4.30-5.90) m/uL Hgb 13.7 (13.0-17.5) gm/dL Hct 40.0 (39.0-53.0) % MCV 98.0 (80.0-100.0) fL MCH 33.7 (25.0-35.0) pg MCHC 34.4 (31.0-37.0) g/dL RDW 12.8 (11.5-15.5) % Plt Count 185 (150-450) k/uL Neutrophils % 69 % Lymphocytes % 13 % Monocytes % 8 % Eosinophils % 8 % Basophils % 1 % Neutrophils # 5.4 (1.3-7.7) k/uL Lymphocytes # 1.0 (1.0-4.8) k/uL Monocytes # 0.6 (0-1.0) k/uL Eosinophils # 0.6 (0-0.7) k/uL Basophils # 0.0 (0-0.2) k/uL Sodium 132 L (137-145) mmol/L Potassium 4.2 (3.5-5.1) mmol/L Chloride 99 (98-107) mmol/L Carbon Dioxide 23 (22-30) mmol/L Anion Gap 10 mmol/L BUN 14 (9-20) mg/dL Creatinine 1.07 (0.66-1.25) mg/dL Est GFR (CKD-EPI)AfAm 79 (>60 ml/min/1.73 sqM) Est GFR (CKD-EPI)NonAf 69 (>60 ml/min/1.73 sqM) Glucose 116 H (74-99) mg/dL Plasma Lactic Acid Santi 1.0 (0.7-2.0) mmol/L Calcium 9.1 (8.4-10.2) mg/dL Total Bilirubin 0.4 (0.2-1.3) mg/dL AST 20 (17-59) U/L ALT 11 (4-49) U/L Alkaline Phosphatase 191 H (38-126) U/L Troponin I (0.000-0.034) ng/mL Total Protein 6.5 (6.3-8.2) g/dL Albumin 3.8 (3.5-5.0) g/dL Urine Color Urine Appearance (Clear) Urine pH (5.0-8.0) Ur Specific [place] (1.001-1.035) Urine Protein (Negative) Urine Glucose (UA) (Negative) Urine Ketones (Negative) Urine Blood (Negative) Urine Nitrite (Negative) Urine Bilirubin (Negative) Urine Urobilinogen (<2.0) mg/dL Ur Leukocyte Esterase (Negative) 08/21/19 08/21/19 Range/Units 04:50 05:55 WBC (3.8-10.6) k/uL RBC (4.30-5.90) m/uL Hgb (13.0-17.5) gm/dL Hct (39.0-53.0) % MCV (80.0-100.0) fL MCH (25.0-35.0) pg MCHC (31.0-37.0) g/dL RDW (11.5-15.5) % Plt Count (150-450) k/uL Neutrophils % % Lymphocytes % % Monocytes % % Eosinophils % % Basophils % % Neutrophils # (1.3-7.7) k/uL Lymphocytes # (1.0-4.8) k/uL Monocytes # (0-1.0) k/uL Eosinophils # (0-0.7) k/uL Basophils # (0-0.2) k/uL Sodium (137-145) mmol/L Potassium (3.5-5.1) mmol/L Chloride (98-107) mmol/L Carbon Dioxide (22-30) mmol/L Anion Gap mmol/L BUN (9-20) mg/dL Creatinine (0.66-1.25) mg/dL Est GFR (CKD-EPI)AfAm (>60 ml/min/1.73 sqM) Est GFR (CKD-EPI)NonAf (>60 ml/min/1.73 sqM) Glucose (74-99) mg/dL Plasma Lactic Acid Santi (0.7-2.0) mmol/L Calcium (8.4-10.2) mg/dL Total Bilirubin (0.2-1.3) mg/dL AST (17-59) U/L ALT (4-49) U/L Alkaline Phosphatase (38-126) U/L Troponin I <0.012 (0.000-0.034) ng/mL Total Protein (6.3-8.2) g/dL Albumin (3.5-5.0) g/dL Urine Color Yellow Urine Appearance Clear (Clear) Urine pH 7.0 (5.0-8.0) Ur Specific [place] 1.013 (1.001-1.035) Urine Protein Negative (Negative) Urine Glucose (UA) Negative (Negative) Urine Ketones Trace H (Negative) Urine Blood Negative (Negative) Urine Nitrite Negative (Negative) Urine Bilirubin Negative (Negative) Urine Urobilinogen <2.0 (<2.0) mg/dL Ur Leukocyte Esterase Negative (Negative) Disposition Clinical Impression: Dizziness, Constipation Disposition: HOME SELF-CARE Condition: Fair Instructions (If sedation given, give patient instructions): Dizziness (ED), Constipation (ED) Is patient prescribed a controlled substance at d/c from ED?: No Referrals: Fernando Lambert Jr, DO [Primary Care Provider] - 1-2 days
[2019-08-21 05:12] LABS: Albumin 3.8 g/dL (3.5-5.0); Calcium 9.1 mg/dL (8.4-10.2); Potassium 4.2 mmol/L (3.5-5.1); Total Bilirubin 0.4 mg/dL (0.2-1.3); Total Protein 6.5 g/dL (6.3-8.2)
[2019-08-21 06:03] LABS: Appearance,Urine Clear (Clear); Bilirubin,Urine Negative (Negative); Blood,Urine Negative (Negative); Color,Urine Yellow; Glucose,Urine (UA) Negative (Negative); Ketones,Urine Trace (Negative); Leukocyte Esterase,Urine Negative (Negative); Nitrite,Urine Negative (Negative); Protein,Urine Negative (Negative); Specific Gravity,Urine 1.013 (1.001-1.035); Urobilinogen,Urine <2.0 mg/dL (<2.0)
--- NOTE | 2019-08-21 06:37 | XR ---
EXAMINATION TYPE: XR chest 2V DATE OF EXAM: 08/21/2019 COMPARISON: Chest x-ray July 29, 2019 and older studies. HISTORY: Productive cough. TECHNIQUE: Frontal and lateral views of the chest are obtained. FINDINGS: There is some chronic parenchymal changes bilaterally without suspicious new focal air spa ce opacity, pleural effusion, or pneumothorax seen. The cardiac silhouette size is stable and upper limits of normal. The osseous structures remain demineralized with vertebral plasty changes identif ied at several levels in the thoracolumbar spine. 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
[2019-08-21] MEDS ORDERED: MAGNESIUM CITRATE 296 ML BOTTLE PO ONE (07:05)
[2019-08-21 07:17] VITALS: BP 147/99; PULSE 97; RESP 16
== END 2019-08-21 07:15 | disposition home or self-care (01) ==
LOC: EC 04:00
DX: K59.00 Constipation, unspecified (principal); R42 Dizziness and giddiness; J44.9 Chronic obstructive pulmonary disease, unspecified; I48.0 Paroxysmal atrial fibrillation; F17.200 Nicotine dependence, unspecified, uncomplicated; Z79.01 Long term (current) use of anticoagulants; Z79.51 Long term (current) use of inhaled steroids; Z79.899 Other long term (current) drug therapy; Z91.040 Latex allergy status; Z91.041 Radiographic dye allergy status
CPT/HCPCS: 99284 ×2; 96361; 96374; 36415; 94640; 93005; 80053; 83605; 84484; 85025; 81003; 71046; 74018; J2405

== ENCOUNTER 2019-08-21 10:30 | Emergency (ER) | payer MEDICARE ==
[2019-08-21 10:37] VITALS: RESP 18
[2019-08-21] MEDS ORDERED: ONDANSETRON 4 MG/2 ML VIAL IVP STA (10:47)
[2019-08-21] MEDS ORDERED: SODIUM CHLORIDE 0.9% 1,000 ML IV STA (10:47)
--- NOTE | 2019-08-21 11:09 | ED ---
Nausea/Vomiting/Diarrhea HPI - General Chief complaint: Nausea/Vomiting/Diarrhea Stated complaint: recheck - vomiting Time Seen by Provider: 08/21/19 10:38 Source: patient, RN notes reviewed, old records reviewed Mode of arrival: ambulatory Limitations: no limitations - History of Present Illness Initial comments: This is a 74-year-old male with a recent visit this morning for dizziness who states he got dizzy when he went home to drink his citrate of magnesium again about one half pound wanda started developing nausea and vomiting. He states he has no dizziness was still feels nauseated. He did have a recent surgery performed. He denies any fevers chills or sweats or other symptoms at this time. MD complaint: nausea, vomiting - Related Data Home Medications Medication Instructions Recorded Confirmed Tamsulosin HCl [Flomax] 0.8 mg PO HS 03/24/18 08/21/19 Budesonide-Formot 160-4.5 Mcg 2 puff INHALATION RT-BID 04/20/18 08/21/19 [Symbicort 160-4.5 Mcg Inhaler] Apixaban [Eliquis] 5 mg PO BID 09/14/18 08/21/19 Metoprolol Tartrate [Lopressor] 50 mg PO BID 02/04/19 08/21/19 Ergocalciferol [Vitamin D2 50,000 unit PO SA 05/05/19 08/21/19 (DRISDOL)] Finasteride [Proscar] 5 mg PO DAILY 05/05/19 08/21/19 Ipratropium-Albuterol Nebulize 3 ml INHALATION RT-Q4H PRN 05/05/19 08/21/19 [Duoneb 0.5 mg-3 mg/3 ml Soln] Umeclidinium [place] [Incruse 1 puff INHALATION RT-DAILY 06/01/19 08/21/19 Ellipta] Acetaminophen [Tylenol] 650 mg PO Q6H PRN 06/06/19 08/21/19 Calcium Carbonate [Calcium] 600 mg PO DAILY 06/06/19 08/21/19 Albuterol Inhaler [Ventolin Hfa 1 puff INHALATION RT-TID PRN 08/21/19 08/21/19 Inhaler] Albuterol Nebulized [Ventolin 2.5 mg INHALATION RT-Q4H 08/21/19 08/21/19 Nebulized] Alendronate Sodium [Fosamax] 70 mg PO GROVES 08/21/19 08/21/19 HYDROcodone/APAP 7.5-325MG [Ethel 1 tab PO Q4H PRN 08/21/19 08/21/19 7.5-325] Previous Rx's Medication Instructions Recorded Famotidine [Pepcid] 20 mg PO Q12HR #30 tab 03/03/19 Cephalexin [Keflex] 500 mg PO Q6HR 7 Days #28 cap 08/16/19 Ondansetron Odt [Zofran Odt] 4 mg PO Q8HR PRN #10 tab 08/21/19 Allergies Allergy/AdvReac Type Severity Reaction Status Date / Time Iodinated Contrast Media Allergy Rash/Hives Verified 08/21/19 11:42 [Iodinated Contrast- Oral and IV Dye] latex Allergy Rash/Hives Verified 08/21/19 11:42 Review of Systems ROS Statement: Those systems with pertinent positive or pertinent negative responses have been documented in the HPI. ROS Other: All systems not noted in ROS Statement are negative. Past Medical History Past Medical History: Atrial Fibrillation, COPD, Prostate Disorder Additional Past Medical History / Comment(s): Paroxysmal Afib, BPH History of Any Multi-Drug Resistant Organisms: None Reported Past Surgical History: No Surgical Hx Reported, Back Surgery Additional Past Surgical History / Comment(s): Bilateral cataract removals-lens implants, colonoscopy, recent surgical procedure to the spine Mar 2019 Past Anesthesia/Blood Transfusion Reactions: No Reported Reaction Additional Past Anesthesia/Blood Transfusion Reaction / Comment(s): Has never received any blood transfusions. Past Psychological History: No Psychological Hx Reported Smoking Status: Current every day smoker Past Alcohol Use History: None Reported Past Drug Use History: None Reported - Past Family History Mother Family Medical History: AFIB, Dementia Father Family Medical History: Myocardial Infarction ([place]) Additional Family Medical History / Comment(s): in his 70's [place] General Exam - General Exam Comments Initial Comments: This is a well-developed well-nourished awake alert oriented 3 male Limitations: no limitations General appearance: alert, in no apparent distress Head exam: Present: atraumatic, normocephalic, normal inspection Eye exam: Present: normal appearance, PERRL, EOMI. Absent: scleral icterus, conjunctival injection, periorbital swelling ENT exam: Present: mucous membranes dry Neck exam: Present: normal inspection. Absent: tenderness, meningismus, lymphadenopathy Respiratory exam: Present: normal lung sounds bilaterally. Absent: respiratory distress, wheezes, rales, rhonchi, stridor Cardiovascular Exam: Present: normal rhythm, tachycardia, normal heart sounds. Absent: systolic murmur, diastolic murmur, rubs, gallop, clicks GI/Abdominal exam: Present: soft, normal bowel sounds. Absent: distended, tenderness, guarding, rebound, rigid Extremities exam: Present: normal inspection, full ROM, normal capillary refill. Absent: tenderness, pedal edema, joint swelling, calf tenderness Back exam: Present: normal inspection Neurological exam: Present: alert, oriented X3, CN II-XII intact Psychiatric exam: Present: normal affect, normal mood Skin exam: Present: warm, dry, intact, normal color. Absent: rash Course Vital Signs 08/21/19 08/21/19 08/21/19 10:32 12:13 12:21 Temperature 97.6 F Pulse Rate 115 H 110 H 112 H Respiratory 18 Rate Blood Pressure 136/85 O2 Sat by Pulse 94 L Oximetry Medical Decision Making - Medical Decision Making 30 patient stated require a updraft he does take nebulizer treatments/inhalers at home he states he feels much improved he did receive IV fluids he would prefer to go home and stay in hospital. He will be discharged with a prescription for Zofran. He is invited back at any problems. A family member's with him and does agree also. - Radiology Data Radiology results: report reviewed (I did review the imaging evidence of ileus versus gastroenteritis no evidence of obstruction.), image reviewed Disposition Clinical Impression: Acute gastritis, Dehydration, COPD (chronic obstructive pulmonary disease) Disposition: HOME SELF-CARE Condition: Good Instructions (If sedation given, give patient instructions): Acute Nausea and Vomiting (ED), Dehydration (ED) Prescriptions: Ondansetron Odt [Zofran Odt] 4 mg PO Q8HR PRN #10 tab PRN Reason: Nausea Is patient prescribed a controlled substance at d/c from ED?: No Referrals: Fernando Lambert Jr, [Primary Care Provider] - 1-2 days
[2019-08-21] MEDS ORDERED: IPRATROPIUM-ALBUTEROL 3 ML NEB INHALATION STA (11:32)
--- NOTE | 2019-08-21 11:37 | XR ---
KUB HISTORY: Constipation and vomiting Frontal KUB submitted on 2 images and correlated to prior KUB dated 04/27/2019 There are vertebral plasty changes within the lower thoracic spine, interval vertebroplasty changes i n the lumbar spine, there is spinal curvature. Degenerative disc changes are present in the visualize d spine. There are air-fluid levels present without bowel distention. Lung bases are clear. Vascular calcifications are present within the pelvis. No pneumoperitoneum. Bone mineralization is reduced. IMPRESSION: Findings could represent ileus or enteritis, follow-up as indicated.
[2019-08-21 13:12] VITALS: BP 140/97; PULSE 110; TEMP 98.6
== END 2019-08-21 13:11 | disposition home or self-care (01) ==
LOC: EC 10:30
DX: K29.00 Acute gastritis without bleeding (principal); E86.0 Dehydration; J44.9 Chronic obstructive pulmonary disease, unspecified; I48.0 Paroxysmal atrial fibrillation; F17.200 Nicotine dependence, unspecified, uncomplicated; Z79.01 Long term (current) use of anticoagulants; Z79.51 Long term (current) use of inhaled steroids; Z79.899 Other long term (current) drug therapy; Z91.041 Radiographic dye allergy status; Z91.040 Latex allergy status
CPT/HCPCS: 94640; 74018; 99284; 96374; 96361; J2405

== ENCOUNTER 2019-09-19 02:24 | Emergency (ER) | payer MEDICARE ==
[2019-09-19 03:04] VITALS: RESP 18
[2019-09-19] MEDS ORDERED: predniSONE 20 MG TAB PO STA (03:13)
[2019-09-19] MEDS ORDERED: IPRATROPIUM-ALBUTEROL 3 ML NEB INHALATION STA (03:13)
[2019-09-19 03:25] LABS: Basophils # (A) 0.1 k/uL (0-0.2); Basophils % (A) 1 %; Eosinophils # (A) 0.8 k/uL (0-0.7); Eosinophils % (A) 11 %; HCT 42.7 % (39.0-53.0); HGB 14.7 gm/dL (13.0-17.5); Lymphocytes # (A) 1.4 k/uL (1.0-4.8); Lymphocytes % (A) 18 %; MCH 33.4 pg (25.0-35.0); MCHC 34.4 g/dL (31.0-37.0); Mean Platelet Volume 7.7; Monocytes # (A) 0.6 k/uL (0-1.0); Monocytes % (A) 8 %; Neutrophils # (A) 4.4 k/uL (1.3-7.7); Neutrophils % (A) 60 %; Platelet Count 230 k/uL (150-450); RDW 12.5 % (11.5-15.5); WBC 7.5 k/uL (3.8-10.6)
[2019-09-19 03:35] LABS: Partial Thromboplastin Time 26.6 sec (22.0-30.0); Prothrombin Time 10.2 sec (9.0-12.0)
--- NOTE | 2019-09-19 03:37 | XR ---
EXAMINATION TYPE: XR chest 2V DATE OF EXAM: 09/19/2019 COMPARISON: 08/21/2019 HISTORY: Difficulty breathing TECHNIQUE: 2 views. FINDINGS: Heart is normal. There is some coarsening of interstitial markings. There is no heart failure. There are chest leads. Costophrenic angles are clear. There is multilevel thoracic and lumbar vertebroplast y. IMPRESSION: Mild pulmonary fibrotic changes. No heart failure. Normal heart. Chest not significantly different than old exam.
[2019-09-19 03:38] LABS: Albumin 4.1 g/dL (3.5-5.0); Calcium 9.2 mg/dL (8.4-10.2); Potassium 4.4 mmol/L (3.5-5.1); Total Bilirubin 0.4 mg/dL (0.2-1.3); Total Protein 6.6 g/dL (6.3-8.2)
[2019-09-19] MEDS ORDERED: ALBUTEROL NEBULIZED 2.5 MG/3 ML INHALATION STA (04:10)
--- NOTE | 2019-09-19 05:00 | ED ---
SOB HPI - General Chief Complaint: Shortness of Breath Stated Complaint: COPD, Diff Breathing Time Seen by Provider: 09/19/19 02:40 Source: patient Mode of arrival: ambulatory Limitations: no limitations - History of Present Illness Initial Comments: This patient is a 74-year-old man with history of COPD/fibrosis who presents with complaint that his shortness of breath is been worse for the past few hours tonight. He states he did try his home inhalational medications but they were only giving him a tiny bit of relief. He states he is not currently taking steroids. He does see Dr. Arvizu but has not seen him for number weeks now. Patient denies fever or chills. No chest pain. No change in the character of his cough or sputum. No change in bladder or bowel function. No leg pain or swelling MD Complaint: shortness of breath, cough Onset/Timin -: days(s) Severity scale (1-10): 0 Consistency: constant Improves With: nothing Worsens With: nothing Known History Of: COPD Associated Symptoms: denies other symptoms Treatments Prior to Arrival: bronchodilator - Related Data Home Oxygen Therapy: No Home Medications Medication Instructions Recorded Confirmed Tamsulosin HCl [Flomax] 0.8 mg PO HS 03/24/18 08/21/19 Budesonide-Formot 160-4.5 Mcg 2 puff INHALATION RT-BID 04/20/18 08/21/19 [Symbicort 160-4.5 Mcg Inhaler] Apixaban [Eliquis] 5 mg PO BID 09/14/18 08/21/19 Metoprolol Tartrate [Lopressor] 50 mg PO BID 02/04/19 08/21/19 Ergocalciferol [Vitamin D2 50,000 unit PO SA 05/05/19 08/21/19 (DRISDOL)] Finasteride [Proscar] 5 mg PO DAILY 05/05/19 08/21/19 Ipratropium-Albuterol Nebulize 3 ml INHALATION RT-Q4H PRN 05/05/19 08/21/19 [Duoneb 0.5 mg-3 mg/3 ml Soln] Umeclidinium [place] [Incruse 1 puff INHALATION RT-DAILY 06/01/19 08/21/19 Ellipta] Acetaminophen [Tylenol] 650 mg PO Q6H PRN 06/06/19 08/21/19 Calcium Carbonate [Calcium] 600 mg PO DAILY 06/06/19 08/21/19 Albuterol Inhaler [Ventolin Hfa 1 puff INHALATION RT-TID PRN 08/21/19 08/21/19 Inhaler] Albuterol Nebulized [Ventolin 2.5 mg INHALATION RT-Q4H 08/21/19 08/21/19 Nebulized] Alendronate Sodium [Fosamax] 70 mg PO GROVES 08/21/19 08/21/19 HYDROcodone/APAP 7.5-325MG [[place] 1 tab PO Q4H PRN 08/21/19 08/21/19 7.5-325] Previous Rx's Medication Instructions Recorded Famotidine [Pepcid] 20 mg PO Q12HR #30 tab 03/03/19 Cephalexin [Keflex] 500 mg PO Q6HR 7 Days #28 cap 08/16/19 Ondansetron Odt [Zofran Odt] 4 mg PO Q8HR PRN #10 tab 08/21/19 predniSONE [Deltasone] 20 mg PO BID #8 tab 09/19/19 Allergies Allergy/AdvReac Type Severity Reaction Status Date / Time Iodinated Contrast Media Allergy Rash/Hives Verified 09/19/19 02:29 [Iodinated Contrast- Oral and IV Dye] latex Allergy Rash/Hives Verified 09/19/19 02:29 Review of Systems ROS Statement: Those systems with pertinent positive or pertinent negative responses have been documented in the HPI. ROS Other: All systems not noted in ROS Statement are negative. Constitutional: Denies: fever, chills, weakness Respiratory: Reports: cough, dyspnea, wheezes. Denies: hemoptysis Cardiovascular: Denies: chest pain, palpitations, orthopnea, edema, syncope Gastrointestinal: Denies: abdominal pain, nausea, vomiting Genitourinary: Denies: dysuria, hematuria Musculoskeletal: Denies: back pain Skin: Denies: rash Neurological: Denies: headache, weakness Past Medical History Past Medical History: Atrial Fibrillation, COPD, Prostate Disorder Additional Past Medical History / Comment(s): Paroxysmal Afib, BPH History of Any Multi-Drug Resistant Organisms: None Reported Past Surgical History: No Surgical Hx Reported, Back Surgery Additional Past Surgical History / Comment(s): Bilateral cataract removals-lens implants, colonoscopy, recent surgical procedure to the spine Mar 2019 Past Anesthesia/Blood Transfusion Reactions: No Reported Reaction Additional Past Anesthesia/Blood Transfusion Reaction / Comment(s): Has never received any blood transfusions. Past Psychological History: No Psychological Hx Reported Smoking Status: Current every day smoker Past Alcohol Use History: None Reported Past Drug Use History: None Reported - Past Family History Mother Family Medical History: AFIB, Dementia Father Family Medical History: Myocardial Infarction ([place]) Additional Family Medical History / Comment(s): in his 70's [place] General Exam Limitations: no limitations General appearance: alert, in no apparent distress Head exam: Present: atraumatic, normocephalic Eye exam: Present: normal appearance. Absent: scleral icterus, conjunctival injection ENT exam: Present: normal oropharynx Respiratory exam: Present: respiratory distress (Mild tachypnea), wheezes, rhonchi. Absent: rales, stridor, chest wall tenderness, accessory muscle use Cardiovascular Exam: Present: regular rate, normal rhythm, normal heart sounds. Absent: systolic murmur, diastolic murmur, rubs, gallop GI/Abdominal exam: Present: soft. Absent: distended, tenderness, guarding, rebound, rigid, mass Extremities exam: Present: normal inspection, normal capillary refill. Absent: pedal edema, calf tenderness Back exam: Present: normal inspection. Absent: CVA tenderness (R), CVA tenderness (L) Neurological exam: Present: alert Skin exam: Present: warm, dry, intact, normal color. Absent: rash Course Vital Signs 09/19/19 09/19/19 09/19/19 02:25 03:03 03:37 Temperature 97.5 F L Pulse Rate 92 98 Respiratory 25 H 18 Rate Blood Pressure 128/78 O2 Sat by Pulse 95 Oximetry 09/19/19 09/19/19 09/19/19 03:44 04:58 05:07 Temperature Pulse Rate 89 95 95 Respiratory Rate Blood Pressure O2 Sat by Pulse Oximetry 09/19/19 05:35 Temperature 97.6 F Pulse Rate 104 H Respiratory 18 Rate Blood Pressure 109/71 O2 Sat by Pulse 97 Oximetry Medical Decision Making - Medical Decision Making The patient is feeling much better following medications here and would like to go home. Discussed appropriate further care and also return parameters. - Lab Data Result diagrams: 09/19/19 03:22 09/19/19 03:22 Lab Results 09/19/19 09/19/19 09/19/19 Range/Units 03:22 03:22 03:22 WBC 7.5 (3.8-10.6) k/uL RBC 4.40 (4.30-5.90) m/uL Hgb 14.7 (13.0-17.5) gm/dL Hct 42.7 (39.0-53.0) % MCV 97.0 (80.0-100.0) fL MCH 33.4 (25.0-35.0) pg MCHC 34.4 (31.0-37.0) g/dL RDW 12.5 (11.5-15.5) % Plt Count 230 (150-450) k/uL Neutrophils % 60 % Lymphocytes % 18 % Monocytes % 8 % Eosinophils % 11 % Basophils % 1 % Neutrophils # 4.4 (1.3-7.7) k/uL Lymphocytes # 1.4 (1.0-4.8) k/uL Monocytes # 0.6 (0-1.0) k/uL Eosinophils # 0.8 H (0-0.7) k/uL Basophils # 0.1 (0-0.2) k/uL PT 10.2 (9.0-12.0) sec INR 1.0 (<1.2) APTT 26.6 (22.0-30.0) sec Sodium 134 L (137-145) mmol/L Potassium 4.4 (3.5-5.1) mmol/L Chloride 104 (98-107) mmol/L Carbon Dioxide 23 (22-30) mmol/L Anion Gap 7 mmol/L BUN 24 H (9-20) mg/dL Creatinine 1.16 (0.66-1.25) mg/dL Est GFR (CKD-EPI)AfAm 72 (>60 ml/min/1.73 sqM) Est GFR (CKD-EPI)NonAf 62 (>60 ml/min/1.73 sqM) Glucose 109 H (74-99) mg/dL Calcium 9.2 (8.4-10.2) mg/dL Total Bilirubin 0.4 (0.2-1.3) mg/dL AST 19 (17-59) U/L ALT 13 (4-49) U/L Alkaline Phosphatase 156 H (38-126) U/L Troponin I (0.000-0.034) ng/mL NT-Pro-B Natriuret Pep pg/mL Total Protein 6.6 (6.3-8.2) g/dL Albumin 4.1 (3.5-5.0) g/dL 09/19/19 09/19/19 Range/Units 03:22 03:22 WBC (3.8-10.6) k/uL RBC (4.30-5.90) m/uL Hgb (13.0-17.5) gm/dL Hct (39.0-53.0) % MCV (80.0-100.0) fL MCH (25.0-35.0) pg MCHC (31.0-37.0) g/dL RDW (11.5-15.5) % Plt Count (150-450) k/uL Neutrophils % % Lymphocytes % % Monocytes % % Eosinophils % % Basophils % % Neutrophils # (1.3-7.7) k/uL Lymphocytes # (1.0-4.8) k/uL Monocytes # (0-1.0) k/uL Eosinophils # (0-0.7) k/uL Basophils # (0-0.2) k/uL PT (9.0-12.0) sec INR (<1.2) APTT (22.0-30.0) sec Sodium (137-145) mmol/L Potassium (3.5-5.1) mmol/L Chloride (98-107) mmol/L Carbon Dioxide (22-30) mmol/L Anion Gap mmol/L BUN (9-20) mg/dL Creatinine (0.66-1.25) mg/dL Est GFR (CKD-EPI)AfAm (>60 ml/min/1.73 sqM) Est GFR (CKD-EPI)NonAf (>60 ml/min/1.73 sqM) Glucose (74-99) mg/dL Calcium (8.4-10.2) mg/dL Total Bilirubin (0.2-1.3) mg/dL AST (17-59) U/L ALT (4-49) U/L Alkaline Phosphatase (38-126) U/L Troponin I <0.012 (0.000-0.034) ng/mL NT-Pro-B Natriuret Pep 48 pg/mL Total Protein (6.3-8.2) g/dL Albumin (3.5-5.0) g/dL Disposition Clinical Impression: COPD exacerbation Disposition: HOME SELF-CARE Condition: Fair Instructions (If sedation given, give patient instructions): COPD (Chronic Obstructive Pulmonary Disease) (ED) Prescriptions: predniSONE [Deltasone] 20 mg PO BID #8 tab Is patient prescribed a controlled substance at d/c from ED?: No Referrals: Fernadno Lambert Jr, DO [Primary Care Provider] - 1-2 days Flakita Arvizu MD [STAFF PHYSICIAN] - 1-2 days
[2019-09-19 05:38] VITALS: BP 109/71; PULSE 104; TEMP 97.6
== END 2019-09-19 05:37 | disposition home or self-care (01) ==
LOC: EC 02:24
DX: J44.1 Chronic obstructive pulmonary disease with (acute) exacerbation (principal); I48.0 Paroxysmal atrial fibrillation; N40.0 Benign prostatic hyperplasia without lower urinary tract symptoms; F17.200 Nicotine dependence, unspecified, uncomplicated; Z79.01 Long term (current) use of anticoagulants; Z79.899 Other long term (current) drug therapy; Z91.040 Latex allergy status; Z91.041 Radiographic dye allergy status
CPT/HCPCS: 36415; 94640 ×2; 93005; 83880; 80053; 84484; 85025; 85610; 85730; 71046; 99285; J7512

== ENCOUNTER 2019-10-07 07:41 | Observation (INO) | payer MEDICARE, OTHER ==
[2019-10-07] MEDS ORDERED: methylPREDNISolone SOD SUCCI 125 MG/2 ML VIAL IV STA (07:58)
[2019-10-07] MEDS ORDERED: IPRATROPIUM 0.5 MG/2.5 ML NEBU INHALATION STA (07:58)
[2019-10-07] MEDS ORDERED: ALBUTEROL NEBULIZED 2.5 MG/3 ML INHALATION STA (07:58)
[2019-10-07] MEDS ORDERED: SODIUM CHLORIDE 0.9% 1,000 ML IV STA (07:58)
--- NOTE | 2019-10-07 08:03 | ED ---
General Adult HPI - General Chief complaint: Shortness of Breath Stated complaint: SOB Time Seen by Provider: 10/07/19 07:45 Source: patient, RN notes reviewed, old records reviewed Mode of arrival: wheelchair Limitations: physical limitation - History of Present Illness Initial comments: This is a 74-year-old male with past medical history significant for COPD per patient denies any heart history. Patient denies any diabetes hypertension high cholesterol. Patient states he continues to smoke however. Patient states his breathing got worse over the last couple of days. Patient denies any fever chills or significant cough. Patient denies any significant sputum production. Patient denies any chest pain or palpitations. Patient denies abdominal pain patient denies nausea vomiting diarrhea. Patient denies headache patient denies lightheadedness or dizziness. Patient denies any calf tenderness or swelling. - Related Data Home Medications Medication Instructions Recorded Confirmed Tamsulosin HCl [Flomax] 0.8 mg PO HS 03/24/18 08/21/19 Budesonide-Formot 160-4.5 Mcg 2 puff INHALATION RT-BID 04/20/18 08/21/19 [Symbicort 160-4.5 Mcg Inhaler] Apixaban [Eliquis] 5 mg PO BID 09/14/18 08/21/19 Metoprolol Tartrate [Lopressor] 50 mg PO BID 02/04/19 08/21/19 Ergocalciferol [Vitamin D2 50,000 unit PO SA 05/05/19 08/21/19 (DRISDOL)] Finasteride [Proscar] 5 mg PO DAILY 05/05/19 08/21/19 Ipratropium-Albuterol Nebulize 3 ml INHALATION RT-Q4H PRN 05/05/19 08/21/19 [Duoneb 0.5 mg-3 mg/3 ml Soln] Umeclidinium [place] [Incruse 1 puff INHALATION RT-DAILY 06/01/19 08/21/19 Ellipta] Acetaminophen [Tylenol] 650 mg PO Q6H PRN 06/06/19 08/21/19 Calcium Carbonate [Calcium] 600 mg PO DAILY 06/06/19 08/21/19 Albuterol Inhaler [Ventolin Hfa 1 puff INHALATION RT-TID PRN 08/21/19 08/21/19 Inhaler] Albuterol Nebulized [Ventolin 2.5 mg INHALATION RT-Q4H 08/21/19 08/21/19 Nebulized] Alendronate Sodium [Fosamax] 70 mg PO GROVES 08/21/19 08/21/19 HYDROcodone/APAP 7.5-325MG [[place] 1 tab PO Q4H PRN 08/21/19 08/21/19 7.5-325] Previous Rx's Medication Instructions Recorded Famotidine [Pepcid] 20 mg PO Q12HR #30 tab 03/03/19 Cephalexin [Keflex] 500 mg PO Q6HR 7 Days #28 cap 08/16/19 Ondansetron Odt [Zofran Odt] 4 mg PO Q8HR PRN #10 tab 08/21/19 predniSONE [Deltasone] 20 mg PO BID #8 tab 09/19/19 Allergies Allergy/AdvReac Type Severity Reaction Status Date / Time Iodinated Contrast Media Allergy Rash/Hives Verified 10/07/19 07:47 [Iodinated Contrast- Oral and IV Dye] latex Allergy Rash/Hives Verified 10/07/19 07:47 Review of Systems ROS Statement: Those systems with pertinent positive or pertinent negative responses have been documented in the HPI. ROS Other: All systems not noted in ROS Statement are negative. Past Medical History Past Medical History: Atrial Fibrillation, COPD, Prostate Disorder Additional Past Medical History / Comment(s): Paroxysmal Afib, BPH History of Any Multi-Drug Resistant Organisms: None Reported Past Surgical History: No Surgical Hx Reported, Back Surgery Additional Past Surgical History / Comment(s): Bilateral cataract removals-lens implants, colonoscopy, recent surgical procedure to the spine Mar 2019 Past Anesthesia/Blood Transfusion Reactions: No Reported Reaction Additional Past Anesthesia/Blood Transfusion Reaction / Comment(s): Has never received any blood transfusions. Past Psychological History: No Psychological Hx Reported Smoking Status: Current every day smoker Past Alcohol Use History: None Reported Past Drug Use History: None Reported - Past Family History Mother Family Medical History: AFIB, Dementia Father Family Medical History: Myocardial Infarction ([place]) Additional Family Medical History / Comment(s): in his 70's [place] General Exam - General Exam Comments Initial Comments: GENERAL: Patient is well-developed and well-nourished. Patient is nontoxic and well- hydrated and is in mild distress. ENT: Neck is soft and supple. No significant lymphadenopathy is noted. Oropharynx is clear. Moist mucous membranes. Neck has full range of motion without elic iting any pain. EYES: The sclera were anicteric and conjunctiva were pink and moist. Extraocular movements were intact and pupils were equal round and reactive to light. Eyelids were unremarkable. PULMONARY: Patient has diffuse expiratory wheezing with decreased breath sounds. CARDIOVASCULAR: There is a regular rate and rhythm without any murmurs gallops or rubs. ABDOMEN: Soft and nontender with normal bowel sounds. SKIN: Skin is clear with no lesions or rashes and otherwise unremarkable. NEUROLOGIC: Patient is alert and oriented x3. Cranial nerves II through XII are grossly intact. Motor and sensory are also intact. Normal speech, volume and content. Symmetrical smile. MUSCULOSKELETAL: Normal extremities with adequate strength and full range of motion. LYMPHATICS: No significant lymphadenopathy is noted PSYCHIATRIC: Normal psychiatric evaluation. Limitations: physical limitation Course Vital Signs 10/07/19 10/07/19 10/07/19 07:45 07:57 08:08 Temperature 98.0 F Pulse Rate 85 70 Respiratory 20 22 22 Rate Blood Pressure 121/81 125/78 O2 Sat by Pulse 97 95 Oximetry 10/07/19 10/07/19 10/07/19 08:38 08:51 09:03 Temperature Pulse Rate 76 73 73 Respiratory Rate Blood Pressure O2 Sat by Pulse Oximetry 10/07/19 09:38 Temperature Pulse Rate 78 Respiratory 21 Rate Blood Pressure 129/76 O2 Sat by Pulse 100 Oximetry Medical Decision Making - Medical Decision Making EKG shows normal sinus rhythm at 81 bpm UT interval 174 QRS is 82 QT interval 370 QTC is 439. Patient's EKG shows no ST segment elevation or depression. Chest x-ray shows no acute abnormalities. Patient she steroids and 3 albuterol treatments in the emergency department. Patient was feeling better but not back to his baseline. New. I spoke with Dr. hall he agreed to admit the patient admitted the patient wrote admitting orders. - Lab Data Result diagrams: 10/07/19 08:39 10/07/19 08:39 Lab Results 10/07/19 10/07/19 10/07/19 Range/Units 08:39 08:39 08:39 WBC 7.5 (3.8-10.6) k/uL RBC 4.39 (4.30-5.90) m/uL Hgb 14.1 (13.0-17.5) gm/dL Hct 42.3 (39.0-53.0) % MCV 96.4 (80.0-100.0) fL MCH 32.1 (25.0-35.0) pg MCHC 33.3 (31.0-37.0) g/dL RDW 12.2 (11.5-15.5) % Plt Count 226 (150-450) k/uL Neutrophils % 62 % Lymphocytes % 17 % Monocytes % 8 % Eosinophils % 10 % Basophils % 1 % Neutrophils # 4.6 (1.3-7.7) k/uL Lymphocytes # 1.3 (1.0-4.8) k/uL Monocytes # 0.6 (0-1.0) k/uL Eosinophils # 0.8 H (0-0.7) k/uL Basophils # 0.1 (0-0.2) k/uL PT 10.0 (9.0-12.0) sec INR 1.0 (<1.2) APTT 24.9 (22.0-30.0) sec Sodium 132 L (137-145) mmol/L Potassium 4.9 (3.5-5.1) mmol/L Chloride 100 (98-107) mmol/L Carbon Dioxide 25 (22-30) mmol/L Anion Gap 7 mmol/L BUN 15 (9-20) mg/dL Creatinine 0.69 (0.66-1.25) mg/dL Est GFR (CKD-EPI)AfAm >90 (>60 ml/min/1.73 sqM) Est GFR (CKD-EPI)NonAf >90 (>60 ml/min/1.73 sqM) Glucose 101 H (74-99) mg/dL Plasma Lactic Acid [place] (0.7-2.0) mmol/L Calcium 9.6 (8.4-10.2) mg/dL Magnesium 2.1 (1.6-2.3) mg/dL Total Bilirubin 0.6 (0.2-1.3) mg/dL AST 21 (17-59) U/L ALT 19 (4-49) U/L Alkaline Phosphatase 118 (38-126) U/L Troponin I (0.000-0.034) ng/mL NT-Pro-B Natriuret Pep pg/mL Total Protein 6.5 (6.3-8.2) g/dL Albumin 4.0 (3.5-5.0) g/dL 10/07/19 10/07/19 10/07/19 Range/Units 08:39 08:39 08:39 WBC (3.8-10.6) k/uL RBC (4.30-5.90) m/uL Hgb (13.0-17.5) gm/dL Hct (39.0-53.0) % MCV (80.0-100.0) fL MCH (25.0-35.0) pg MCHC (31.0-37.0) g/dL RDW (11.5-15.5) % Plt Count (150-450) k/uL Neutrophils % % Lymphocytes % % Monocytes % % Eosinophils % % Basophils % % Neutrophils # (1.3-7.7) k/uL Lymphocytes # (1.0-4.8) k/uL Monocytes # (0-1.0) k/uL Eosinophils # (0-0.7) k/uL Basophils # (0-0.2) k/uL PT (9.0-12.0) sec INR (<1.2) APTT (22.0-30.0) sec Sodium (137-145) mmol/L Potassium (3.5-5.1) mmol/L Chloride (98-107) mmol/L Carbon Dioxide (22-30) mmol/L Anion Gap mmol/L BUN (9-20) mg/dL Creatinine (0.66-1.25) mg/dL Est GFR (CKD-EPI)AfAm (>60 ml/min/1.73 sqM) Est GFR (CKD-EPI)NonAf (>60 ml/min/1.73 sqM) Glucose (74-99) mg/dL Plasma Lactic Acid [place] 1.5 (0.7-2.0) mmol/L Calcium (8.4-10.2) mg/dL Magnesium (1.6-2.3) mg/dL Total Bilirubin (0.2-1.3) mg/dL AST (17-59) U/L ALT (4-49) U/L Alkaline Phosphatase (38-126) U/L Troponin I <0.012 (0.000-0.034) ng/mL NT-Pro-B Natriuret Pep 64 pg/mL Total Protein (6.3-8.2) g/dL Albumin (3.5-5.0) g/dL Critical Care Time Critical Care Time: Yes Total Critical Care Time: 35 Disposition Clinical Impression: COPD with acute exacerbation Disposition: ADMITTED IP TO THIS HOSP Referrals: Fernando Lambert Jr, [Primary Care Provider] - 1-2 days Time of Disposition: 09:37
[2019-10-07 08:47] LABS: Basophils # (A) 0.1 k/uL (0-0.2); Basophils % (A) 1 %; Eosinophils # (A) 0.8 k/uL (0-0.7); Eosinophils % (A) 10 %; HCT 42.3 % (39.0-53.0); HGB 14.1 gm/dL (13.0-17.5); Lymphocytes # (A) 1.3 k/uL (1.0-4.8); Lymphocytes % (A) 17 %; MCH 32.1 pg (25.0-35.0); MCHC 33.3 g/dL (31.0-37.0); MCV 96.4 fL (80.0-100.0); Mean Platelet Volume 7.4; Monocytes # (A) 0.6 k/uL (0-1.0); Monocytes % (A) 8 %; Neutrophils # (A) 4.6 k/uL (1.3-7.7); Neutrophils % (A) 62 %; Platelet Count 226 k/uL (150-450); RBC 4.39 m/uL (4.30-5.90); RDW 12.2 % (11.5-15.5); WBC 7.5 k/uL (3.8-10.6)
[2019-10-07 08:56] LABS: Partial Thromboplastin Time 24.9 sec (22.0-30.0)
[2019-10-07 09:03] LABS: ALT 19 U/L (4-49); AST 21 U/L (17-59); African American GFR (CKD) >90 (>60 ml/min/1.73 sqM); Alkaline Phosphatase 118 U/L (38-126); Anion Gap 7 mmol/L; Blood Urea Nitrogen 15 mg/dL (9-20); Calcium 9.6 mg/dL (8.4-10.2); Carbon Dioxide 25 mmol/L (22-30); Chloride 100 mmol/L (98-107); Glucose 101 mg/dL (74-99); Magnesium 2.1 mg/dL (1.6-2.3); Non-African American GFR(CKD) >90 (>60 ml/min/1.73 sqM); Potassium 4.9 mmol/L (3.5-5.1); Sodium 132 mmol/L (137-145); Total Bilirubin 0.6 mg/dL (0.2-1.3); Total Protein 6.5 g/dL (6.3-8.2)
--- NOTE | 2019-10-07 09:34 | XR ---
EXAMINATION TYPE: XR chest 2V DATE OF EXAM: 10/07/2019 COMPARISON: Chest x-ray September 19, 2019 and older studies. HISTORY: Difficulty in breathing. TECHNIQUE: Frontal and lateral views of the chest are obtained. FINDINGS: There is background chronic parenchymal reticular changes greater in the lower lungs witho ut suspicious new focal air space opacity, pleural effusion, or pneumothorax seen. The cardiac silho uette size remains within normal limits. The osseous structures remain demineralized with multileve l vertebroplasty in the thoracolumbar spine redemonstrated. IMPRESSION: Chronic changes without new acute pulmonary process.
[2019-10-07] MEDS ORDERED: IPRATROPIUM-ALBUTEROL 3 ML NEB INHALATION STA (09:38)
[2019-10-07] MEDS: IPRATROPIUM-ALBUTEROL 3 ML NEB INHALATION PRN ×2 (11:09→23:14)
[2019-10-07] MEDS ORDERED: CYCLOBENZAPRINE 10 MG TAB PO PRN (12:17)
[2019-10-07] MEDS ORDERED: ACETAMINOPHEN TAB 325 MG TAB PO PRN (12:17)
[2019-10-07] MEDS ORDERED: HYDROcodone/APAP 7.5-325MG 1 EACH TAB PO PRN (12:17)
--- NOTE | 2019-10-07 12:45 | P.HPIM ---
History of Present Illness H&P Date: 10/07/19 Chief Complaint: Worsening shortness of breath CC 74-year-old gentleman with history of paroxysmal atrial fibrillation, COPD, pulmonary nodules, back surgery, ongoing nicotine dependence-at least a [id number] smoker and multiple other medical issues presented to the ER with complaints of worsening dyspnea 3-4 days. Denies chest pain, palpitations. Denies fever or chills. No hemoptysis. Minimal nonproductive cough. Denies lightheadedness, dizziness or focal deficits. Denies nausea vomiting or diarrhea. Denies syncope. Chest x-ray reported chronic changes without new acute pulmonary process. EKG reported normal sinus rhythm. Troponin negative 1. Hematology unremarkable. Chemistry unremarkable with the exception of sodium 132. Patient follows with Dr. Milian outpatient, requesting his pulmonary medications be further adjusted. Patient was admitted, started on nebulized bronchodilators, steroids and appears to be doing better. No cough currently. Afebrile. Maintaining O2 sats in the high 90s on room air. Review of Systems ROS Statement: Those systems with pertinent positive or pertinent negative responses have been documented in the HPI. ROS Other: All systems not noted in ROS Statement are negative. Past Medical History Past Medical History: Atrial Fibrillation, COPD, Pneumonia, Prostate Disorder Additional Past Medical History / Comment(s): Paroxysmal Afib, bronchitis, pulmonary nodules/negative pet scan, BPH, constipation, vertigo, chronic low back pain/DDD. History of Any Multi-Drug Resistant Organisms: None Reported Past Surgical History: Back Surgery Additional Past Surgical History / Comment(s): Bilateral cataract removals-lens implants, colonoscopy, multiple kyphoplasties. Past Anesthesia/Blood Transfusion Reactions: No Reported Reaction Additional Past Anesthesia/Blood Transfusion Reaction / Comment(s): Has never received any blood transfusions. Smoking Status: Current every day smoker - Past Family History Mother Family Medical History: AFIB, Dementia Father Family Medical History: Myocardial Infarction ([place]) Additional Family Medical History / Comment(s): in his 70's from [place] Medications and Allergies Home Medications Medication Instructions Recorded Confirmed Type Tamsulosin HCl [Flomax] 0.8 mg PO HS 03/24/18 10/07/19 History Apixaban [Eliquis] 5 mg PO BID 09/14/18 10/07/19 History Metoprolol Tartrate [Lopressor] 50 mg PO BID 02/04/19 10/07/19 History Ergocalciferol [Vitamin D2 50,000 unit PO SA 05/05/19 10/07/19 History (DRISDOL)] Finasteride [Proscar] 5 mg PO DAILY 05/05/19 10/07/19 History Ipratropium-Albuterol Nebulize 3 ml INHALATION RT-Q4H PRN 05/05/19 10/07/19 History [Duoneb 0.5 mg-3 mg/3 ml Soln] Umeclidinium [place] [Incruse 1 puff INHALATION RT-DAILY 06/01/19 10/07/19 History Ellipta] Acetaminophen [Tylenol] 650 mg PO Q6H PRN 06/06/19 10/07/19 History Calcium Carbonate [Calcium] 600 mg PO DAILY 06/06/19 10/07/19 History Albuterol Inhaler [Ventolin Hfa 1 puff INHALATION RT-TID PRN 08/21/19 10/07/19 History Inhaler] Albuterol Nebulized [Ventolin 2.5 mg INHALATION RT-Q4H 08/21/19 10/07/19 History Nebulized] Alendronate Sodium [Fosamax] 70 mg PO GROVES 08/21/19 10/07/19 History HYDROcodone/APAP 7.5-325MG [[place] 1 tab PO Q4H PRN 08/21/19 10/07/19 History 7.5-325] Cyclobenzaprine [Flexeril] 10 mg PO TID PRN 10/07/19 10/07/19 History Allergies Allergy/AdvReac Type Severity Reaction Status Date / Time Iodinated Contrast Media Allergy Rash/Hives Verified 10/07/19 09:51 [Iodinated Contrast- Oral and IV Dye] latex Allergy Rash/Hives Verified 10/07/19 09:51 Physical Exam Vitals: Vital Signs Temp Pulse Pulse Resp BP BP Pulse Ox 10/07/19 11:21 72 10/07/19 11:10 72 10/07/19 10:35 97.4 F L 84 19 135/82 97 10/07/19 10:00 98.2 F 72 21 118/79 99 10/07/19 09:38 78 21 129/76 100 10/07/19 09:03 73 10/07/19 08:51 73 10/07/19 08:38 76 10/07/19 08:08 70 22 125/78 95 10/07/19 07:57 22 10/07/19 07:45 98.0 F 85 20 121/81 97 Intake and Output 10/06/19 10/07/19 10/07/19 22:59 06:59 14:59 Other: Weight 66.678 kg GENERAL EXAM: Pleasant 74-year-old gentleman. Alert, active, comfortable in no apparent distress, sitting up at bedside HEAD: Normocephalic. EYES: Normal reaction of pupils, equal size. NOSE: Clear with pink turbinates. THROAT: No erythema or exudates. NECK: No masses, no JVD. CHEST: No chest wall deformity. LUNGS: Equal air entry,diminished breath sounds with minimal scattered rhonchi CVS: S1 and S2 normal with no audible murmur, regular rhythm. ABDOMEN: No hepatosplenomegaly, normal bowel sounds, no guarding or rigidity. SPINE: No scoliosis or deformity SKIN: No rashes CENTRAL NERVOUS SYSTEM: No focal deficits, tone is normal in all 4 extremities. EXTREMITIES: There is no peripheral edema. No clubbing, no cyanosis. Peripheral pulses are intact. Results CBC & Chem 7: 10/07/19 08:39 10/07/19 08:39 Labs: Abnormal Lab Results - Last 24 Hours (Table) 10/07/19 10/07/19 Range/Units 08:39 08:39 Eosinophils # 0.8 H (0-0.7) k/uL Sodium 132 L (137-145) mmol/L Glucose 101 H (74-99) mg/dL Thrombosis Risk Factor Assmnt - Choose All That Apply Any of the Below Risk Factors Present?: Yes Each Factor Represents 1 point: Abnormal pulmonary function (COPD) Other Risk Factors: Yes Each Risk Factor Represents 2 Points: Age 61-74 years Other congenital or acquired thrombophilia - If yes, enter type in comment: No Thrombosis Risk Factor Assessment Total Risk Factor Score: 3 Thrombosis Risk Factor Assessment Level: Moderate Risk Assessment and Plan Assessment: Acute COPD exacerbation. Coronavirus testing in progress. Ongoing nicotine dependence Recurrent admissions Pulmonary nodules, negative PET scan, following with pulmonary OP Hypertension Paroxysmal atrial fibrillation BPH Plan: Continue on current medication regime ,monitoring and symptomatic treat ment. Smoking cessation discussed, discussing Chantix. Continue on nebulized bronchodilators, IV steroids. Pulmonary consulted-requesting to see Dr. Milian, realizes he will see his partner inpatient. Discharge planning in progress, possibly for tomorrow, pending pulmonary clearance. The impression and plan of care has been dictated as directed. : I performed a history and examination of this patient, discussed the same with the dictator. I agree with the dictator's note ,documented as a scribe. Any additional findings or plans will be noted.
[2019-10-07 13:17] LABS: Glucose,Whole Blood 145 mg/dL (75-99)
[2019-10-07] MEDS: PANTOPRAZOLE 40 MG/10 ML VIAL IVP SCH (13:32)
[2019-10-07] MEDS: VARENICLINE 0.5 MG TAB PO SCH (13:32)
[2019-10-07] MEDS: APIXABAN 5 MG TAB PO SCH ×2 (13:33→21:01)
[2019-10-07] MEDS: FINASTERIDE 5 MG TAB PO SCH (13:33)
[2019-10-07] MEDS: METOPROLOL TARTRATE 50 MG TAB PO SCH ×2 (13:33→21:05)
[2019-10-07] MEDS: INSULIN ASPART (NovoLOG) 100 UNIT/ML VIAL SQ SCH ×3 (13:33→21:01)
[2019-10-07] MEDS: methylPREDNISolone SOD SUCCI 125 MG/2 ML VIAL IV SCH ×3 (13:34→23:47)
--- NOTE | 2019-10-07 14:00 | P.CNPUL ---
History of Present Illness Consult date: 10/07/19 Requesting physician: Fernando Lambert Jr Reason for consult: dyspnea, COPD Chief complaint: Shortness of breath, dyspnea on exertion History of present illness: This is a pleasant 74-year-old male patient who follows with Dr. Lambert is his primary care provider. He has a history of proximal atrial fibrillation anticoagulated with Eliquis, benign prosthetic hypertrophy. He also follows in our office with a known history of moderately severe COPD with FEV1 of 53% of predicted maintained on Symbicort, Incruse, Ventolin HFA and albuterol updrafts when necessary. He is smoking 1 pack of cigarettes a day for the past 60+ years. He has had previous hospitalization for COPD exacerbation. He presented to the emergency room this morning with a 2-3 day complaint of increasing shortness of breath and dyspnea on exertion. No cough or congestion. No fever, chills or night sweats. No nausea, vomiting or diarrhea. No hemoptysis. Chest x-ray reveals chronic parenchymal reticular changes greater in the lower lung meyers without suspicious new focal areas of opacity, pleural effusion or pneumothorax. Osseous structures remained demineralized with multilevel vertebroplasty in the thoracolumbar spine redemonstrated. No acute pulmonary process. He is seen today in consultation on the regular medical floor. He is sitting up at the bedside having lunch. Maintaining O2 saturations in the mid 90s on room air. His been afebrile. Hemodynamically stable. White count 7.5. Hemoglobin 14.1. Sodium 132. Potassium 4.9. Creatinine 0.69. He's been initiated on DuoNeb inhalations, IV Solu-Medrol, Chantix. Review of Systems REVIEW OF SYSTEMS: CONSTITUTIONAL: Denies any recent significant weight loss or weight gain. EYES: Denies change in vision. EARS, NOSE, MOUTH, THROAT: Denies headaches, denies sore throat. CARDIOVASCULAR: Denies chest pain, palpitations or syncopal episodes. RESPIRATORY: Positive for shortness of breath, no cough, congestion or h emoptysis. GASTROINTESTINAL: Denies change in appetite, denies abdominal pain GENITOURINARY: Denies hematuria, denies infections. MUSKULOSKELETAL: Denies pain, denies swelling. INTEGUMENTARY: Denies rash, denies eczema. NEUROLOGICAL: Denies recent memory loss, no recent seizure activity. PSYCHIATRIC: Denies anxiety, denies depression. HEMATOLOGIC/LYMPHATIC: Denies anemia, denies enlarged lymph nodes. Past Medical History Past Medical History: Atrial Fibrillation, COPD, Pneumonia, Prostate Disorder Additional Past Medical History / Comment(s): Paroxysmal Afib, bronchitis, pulmonary nodules/negative pet scan, BPH, constipation, vertigo, chronic low back pain/DDD. History of Any Multi-Drug Resistant Organisms: None Reported Past Surgical History: Back Surgery Additional Past Surgical History / Comment(s): Bilateral cataract removals-lens implants, colonoscopy, multiple kyphoplasties. Past Anesthesia/Blood Transfusion Reactions: No Reported Reaction Additional Past Anesthesia/Blood Transfusion Reaction / Comment(s): Has never received any blood transfusions. Smoking Status: Current every day smoker - Past Family History Mother Family Medical History: AFIB, Dementia Father Family Medical History: Myocardial Infarction ([place]) Additional Family Medical History / Comment(s): in his 70's from [place] Medications and Allergies Home Medications Medication Instructions Recorded Confirmed Type Tamsulosin HCl [Flomax] 0.8 mg PO HS 03/24/18 10/07/19 History Apixaban [Eliquis] 5 mg PO BID 09/14/18 10/07/19 History Metoprolol Tartrate [Lopressor] 50 mg PO BID 02/04/19 10/07/19 History Ergocalciferol [Vitamin D2 50,000 unit PO SA 05/05/19 10/07/19 History (DRISDOL)] Finasteride [Proscar] 5 mg PO DAILY 05/05/19 10/07/19 History Ipratropium-Albuterol Nebulize 3 ml INHALATION RT-Q4H PRN 05/05/19 10/07/19 History [Duoneb 0.5 mg-3 mg/3 ml Soln] Umeclidinium [place] [Incruse 1 puff INHALATION RT-DAILY 06/01/19 10/07/19 History Ellipta] Acetaminophen [Tylenol] 650 mg PO Q6H PRN 06/06/19 10/07/19 History Calcium Carbonate [Calcium] 600 mg PO DAILY 06/06/19 10/07/19 History Albuterol Inhaler [Ventolin Hfa 1 puff INHALATION RT-TID PRN 08/21/19 10/07/19 History Inhaler] Albuterol Nebulized [Ventolin 2.5 mg INHALATION RT-Q4H 08/21/19 10/07/19 History Nebulized] Alendronate Sodium [Fosamax] 70 mg PO GROVES 08/21/19 10/07/19 History HYDROcodone/APAP 7.5-325MG [[place] 1 tab PO Q4H PRN 08/21/19 10/07/19 History 7.5-325] Cyclobenzaprine [Flexeril] 10 mg PO TID PRN 10/07/19 10/07/19 History Allergies Allergy/AdvReac Type Severity Reaction Status Date / Time Iodinated Contrast Media Allergy Rash/Hives Verified 10/07/19 09:51 [Iodinated Contrast- Oral and IV Dye] latex Allergy Rash/Hives Verified 10/07/19 09:51 Physical Exam Vitals: Vital Signs Temp Pulse Pulse Resp BP BP Pulse Ox 10/07/19 11:21 72 10/07/19 11:10 72 10/07/19 10:35 97.4 F L 84 19 135/82 97 10/07/19 10:00 98.2 F 72 21 118/79 99 10/07/19 09:38 78 21 129/76 100 10/07/19 09:03 73 10/07/19 08:51 73 10/07/19 08:38 76 10/07/19 08:08 70 22 125/78 95 10/07/19 07:57 22 10/07/19 07:45 98.0 F 85 20 121/81 97 Intake and Output 10/06/19 10/07/19 10/07/19 22:59 06:59 14:59 Other: Weight 66.678 kg GENERAL EXAM: Alert, active, very pleasant 74-year-old gentleman, on room air, comfortable in no apparent distress. HEAD: Normocephalic. EYES: Normal reaction of pupils, equal size. NOSE: Clear with pink turbinates. THROAT: No erythema or exudates. NECK: No masses, no JVD. CHEST: No chest wall deformity. LUNGS: Equal air entry with no crackles, wheeze, rhonchi or dullness. Diminished. CVS: S1 and S2 normal with no audible murmur, regular rhythm. ABDOMEN: No hepatosplenomegaly, normal bowel sounds, no guarding or rigidity. SPINE: No scoliosis or deformity SKIN: No rashes CENTRAL NERVOUS SYSTEM: No focal deficits, tone is normal in all 4 extremities. EXTREMITIES: There is no peripheral edema. No clubbing, no cyanosis. Peripheral pulses are intact.. Results - Laboratory Findings CBC and BMP: 10/07/19 08:39 10/07/19 08:39 PT/INR, D-dimer PT 10.0 sec (9.0-12.0) 10/07/19 08:39 INR 1.0 (<1.2) 10/07/19 08:39 Abnormal lab findings: Abnormal Labs 10/07/19 10/07/19 10/07/19 08:39 08:39 13:16 Eosinophils # 0.8 H Sodium 132 L Glucose 101 H POC Glucose (mg/dL) 145 H - Diagnostic Findings Chest x-ray: image reviewed (No acute pulmonary process) Assessment and Plan Assessment: 1 Acute exacerbation of chronic obstructive pulmonary disease in a patient with FEV1 value 53% of predicted. The chest x-ray is free of any acute pulmonary infiltrates. The patient is maintained on Symbicort, Incruse, albuterol. He continues to smoke 1 pack of cigarettes a day. Covid 19 screen pending. 2 Chronic and ongoing tobacco dependence of greater than 60 years. 3 Recent and frequent admissions for COPD. 4 Pulmonary nodules with negative PET scan. 5 Chronic shortness of breath secondary to above 6 Hypertension. 7 History of paroxysmal atrial fibrillation anticoagulated with Eliquis. 8 Benign prostatic hyperplasia, on Flomax. Plan Seen and evaluated by Dr. Tucker Chest x-ray and labs reviewed Continue DuoNeb inhalations, IV Solu-Medrol Add Symbicort Await Covid screen He is again educated regarding importance of complete smoking cessation We'll continue to follow and make further recommendations based on his clinical status I, the cosigning physician, performed a history & physical examination of the patient. Lungs sounds are clear, diminished. Maintaining good O2 saturations in the 90s on room air. I discussed the assessment and plan of care with my nurse practitioner, Qi Saez. I attest to the above consultation as dictated by her. Time with Patient: Greater than 30
[2019-10-07 14:18] VITALS: RESP 18
[2019-10-07] MEDS: IPRATROPIUM-ALBUTEROL 3 ML NEB INHALATION SCH ×2 (15:15→19:34)
[2019-10-07 17:10] LABS: Glucose,Whole Blood 177 mg/dL (75-99)
[2019-10-07] MEDS: SYMBICORT 160-4.5 MCG INHALER INHALATION SCH ×2 (19:34→20:13)
[2019-10-07 20:02] LABS: Glucose,Whole Blood 159 mg/dL (75-99)
[2019-10-07] MEDS ORDERED: TAMSULOSIN 0.4 MG CAP.ER.24H PO SCH (21:00)
[2019-10-08] MEDS: IPRATROPIUM-ALBUTEROL 3 ML NEB INHALATION PRN (03:15)
[2019-10-08] MEDS: methylPREDNISolone SOD SUCCI 125 MG/2 ML VIAL IV SCH (05:45)
[2019-10-08 07:06] LABS: Basophils % (A) 0 %; Eosinophils % (A) 0 %; HCT 40.4 % (39.0-53.0); HGB 13.2 gm/dL (13.0-17.5); Lymphocytes # (A) 0.6 k/uL (1.0-4.8); Lymphocytes % (A) 6 %; MCH 31.7 pg (25.0-35.0); MCHC 32.6 g/dL (31.0-37.0); MCV 97.3 fL (80.0-100.0); Mean Platelet Volume 7.4; Monocytes # (A) 0.3 k/uL (0-1.0); Monocytes % (A) 3 %; Neutrophils # (A) 10.1 k/uL (1.3-7.7); Neutrophils % (A) 91 %; Platelet Count 219 k/uL (150-450); RBC 4.15 m/uL (4.30-5.90); RDW 12.1 % (11.5-15.5); WBC 11.1 k/uL (3.8-10.6)
[2019-10-08 07:21] LABS: Glucose,Whole Blood 137 mg/dL (75-99)
[2019-10-08 07:27] LABS: African American GFR (CKD) >90 (>60 ml/min/1.73 sqM); Anion Gap 9 mmol/L; Blood Urea Nitrogen 19 mg/dL (9-20); Carbon Dioxide 22 mmol/L (22-30); Chloride 99 mmol/L (98-107); Glucose 144 mg/dL (74-99); Non-African American GFR(CKD) >90 (>60 ml/min/1.73 sqM); Potassium 4.3 mmol/L (3.5-5.1); Sodium 130 mmol/L (137-145)
[2019-10-08] MEDS ORDERED: NON FORMULARY DRUG (Umeclidinium Bromide [Incruse Ellipta] 1 PUFF) INHALATION SCH (08:00)
[2019-10-08] MEDS: IPRATROPIUM-ALBUTEROL 3 ML NEB INHALATION SCH ×2 (08:51→11:37)
[2019-10-08] MEDS: SYMBICORT 160-4.5 MCG INHALER INHALATION SCH (08:51)
[2019-10-08] MEDS ORDERED: CALCIUM CARBONATE 500 MG CHEWABLE PO SCH (09:00)
[2019-10-08] MEDS: PANTOPRAZOLE 40 MG/10 ML VIAL IVP SCH (09:19)
[2019-10-08] MEDS: METOPROLOL TARTRATE 50 MG TAB PO SCH (09:19)
[2019-10-08] MEDS: FINASTERIDE 5 MG TAB PO SCH (09:19)
[2019-10-08] MEDS: INSULIN ASPART (NovoLOG) 100 UNIT/ML VIAL SQ SCH (09:19)
[2019-10-08] MEDS: APIXABAN 5 MG TAB PO SCH (09:19)
[2019-10-08] MEDS: VARENICLINE 0.5 MG TAB PO SCH (09:30)
--- NOTE | 2019-10-08 10:51 | P.PN ---
Subjective \ 74-year-old gentleman with history of paroxysmal atrial fibrillation, COPD, pulmonary nodules, back surgery, ongoing nicotine dependence-at least a [id number] smoker and multiple other medical issues presented to the ER with complaints of worsening dyspnea 3-4 days. Denies chest pain, palpitations. Denies fever or chills. No hemoptysis. Minimal nonproductive cough. Denies lightheadedness, dizziness or focal deficits. Denies nausea vomiting or diarrhea. Denies syncope. Chest x-ray reported chronic changes without new acute pulmonary process. EKG reported normal sinus rhythm. Troponin negative 1. Hematology unremarkable. Chemistry unremarkable with the exception of sodium 132. Patient follows with Dr. Milian outpatient, requesting his pulmonary medications be further adjusted. Patient was admitted, started on nebulized b ronchodilators, steroids and appears to be doing better. No cough currently. Afebrile. Maintaining O2 sats in the high 90s on room air. 10/08/2019: Patient doing well today. 7 updraft treatment at this time. He denies any significant complaints of chest pains, pressures, shortness breath, nausea or vomiting. Indicates he is tolerating his diet well. He is asking when he can go home. Objective - Vital Signs Vital signs: Vital Signs Temp 97.7 F 10/08/19 04:44 Pulse 80 10/08/19 08:53 Resp 18 10/08/19 04:44 BP 101/56 10/08/19 04:44 Pulse Ox 93 L 10/08/19 04:44 Intake & Output 10/07/19 10/08/19 10/08/19 18:59 06:59 18:59 Intake Total 600 Balance 600 Weight 66.678 kg Intake: Oral 600 Other: Voiding Method Toilet Toilet Toilet # Voids 2 2 - Exam General: The patient is awake and alert, in no distress, and does not appear acutely ill. Neck: The neck is supple, there is no thyromegaly, lymphadenopathy, tenderness or JVD. Cardiovascular: S1S2 is normal, There is a regular rate and rhythm. No murmur, rub or gallop is appreciated. Respiratory: Lungs are worse with decreased air exchange bilaterally, no active wheezes rales or crackles at this time. Gastrointestinal: Soft, non-distended, non-tender abdomen without masses or organomegaly noted. There is no rebound or guarding present. Bowel sounds are unremarkable. Musculoskeletal: Normal ROM, no tenderness, There is no pedal edema. There is no calf tenderness or swelling. No cords were appreciated. Neurological: CN II-XII intact, there are no obvious motor or sensory deficits. Coordination appears grossly intact. Speech is normal. Skin: Skin is warm and dry and no rashes or lesions are noted. - Labs CBC & Chem 7: 10/08/19 06:50 10/08/19 06:50 Labs: Abnormal Lab Results - Last 24 Hours (Table) 10/07/19 10/07/19 10/07/19 Range/Units 13:16 17:09 20:02 WBC (3.8-10.6) k/uL RBC (4.30-5.90) m/uL Neutrophils # (1.3-7.7) k/uL Lymphocytes # (1.0-4.8) k/uL Sodium (137-145) mmol/L Creatinine (0.66-1.25) mg/dL Glucose (74-99) mg/dL POC Glucose (mg/dL) 145 H 177 H 159 H (75-99) mg/dL 10/08/19 10/08/19 10/08/19 Range/Units 06:50 06:50 07:11 WBC 11.1 H (3.8-10.6) k/uL RBC 4.15 L (4.30-5.90) m/uL Neutrophils # 10.1 H (1.3-7.7) k/uL Lymphocytes # 0.6 L (1.0-4.8) k/uL Sodium 130 L (137-145) mmol/L Creatinine 0.63 L (0.66-1.25) mg/dL Glucose 144 H (74-99) mg/dL POC Glucose (mg/dL) 137 H (75-99) mg/dL Microbiology - Last 24 Hours (Table) 10/07/19 08:39 Blood Culture Gram Stain - Preliminary Blood 10/07/19 08:39 Blood Culture - Final Blood Assessment and Plan (1) Nicotine dependence Current Visit: Yes Status: Acute Code(s): F17.200 - NICOTINE DEPENDENCE, UNSPECIFIED, UNCOMPLICATED SNOMED Code(s): 08597571 (2) Tobacco abuse counseling Current Visit: Yes Status: Acute Code(s): Z71.6 - TOBACCO ABUSE COUNSELING SNOMED Code(s): 739735614 (3) Atrial fibrillation Current Visit: Yes Status: Acute Code(s): I48.91 - UNSPECIFIED ATRIAL FIBRILLATION SNOMED Code(s): 82923519 (4) bed bug exterminator (current) use of anticoagulants Current Visit: Yes Status: Acute Code(s): Z79.01 - CORRECTION (CURRENT) USE OF ANTICOAGULANTS SNOMED Code(s): 798239296 (5) COPD with acute exacerbation Current Visit: Yes Status: Acute Code(s): J44.1 - CHRONIC OBSTRUCTIVE PULMONARY DISEASE W (ACUTE) EXACERBATION SNOMED Code(s): 703476464 (6) Acute exacerbation of chronic obstructive airways disease Current Visit: No Status: Acute Code(s): J44.1 - CHRONIC OBSTRUCTIVE PULMONARY DISEASE W (ACUTE) EXACERBATION SNOMED Code(s): 609846304 (7) Shortness of breath Current Visit: No Status: Acute Code(s): R06.02 - SHORTNESS OF BREATH SNOMED Code(s): 007024695 (8) Smoker Current Visit: No Status: Acute Code(s): F17.200 - NICOTINE DEPENDENCE, UNSPECIFIED, UNCOMPLICATED SNOMED Code(s): 50471292 Plan: He'll continue his current medications treatments. We'll await further recommendations from pulmonology. Work on getting him home soon. We'll start him on Chantix to help with smoking cessation. I discussed with him smoking cessation options including patches, gum, lozenges, Chantix, Zyban, and quitting cold turkey for approximately 3-5 minutes today. We'll repeat labs in a.m. He'll be reevaluated next 24 hours
--- NOTE | 2019-10-08 11:37 | P.PN ---
Subjective Progress Note Date: 10/08/19 Principal diagnosis: Acute exacerbation of chronic obstructive pulmonary disease This is a pleasant 74-year-old male patient who follows with Dr. Lambert is his primary care provider. He has a history of proximal atrial fibrillation anticoagulated with Eliquis, benign prosthetic hypertrophy. He also follows in our office with a known history of moderately severe COPD with FEV1 of 53% of predicted maintained on Symbicort, Incruse, Ventolin HFA and albuterol updrafts when necessary. He is smoking 1 pack of cigarettes a day for the past 60+ years. He has had previous hospitalization for COPD exacerbation. He presented to the emergency room this morning with a 2-3 day complaint of increasing shortness of breath and dyspnea on exertion. No cough or congestion. No fever, chills or night sweats. No nausea, vomiting or diarrhea. No hemoptysis. Chest x-ray reveals chronic parenchymal reticular changes greater in the lower lung meyers without suspicious new focal areas of opacity, pleural effusion or pneumothorax. Osseous structures remained demineralized with m ultilevel vertebroplasty in the thoracolumbar spine redemonstrated. No acute pulmonary process. He is seen today in consultation on the regular medical floor. He is sitting up at the bedside having lunch. Maintaining O2 saturations in the mid 90s on room air. His been afebrile. Hemodynamically stable. White count 7.5. Hemoglobin 14.1. Sodium 132. Potassium 4.9. Creatinine 0.69. He's been initiated on DuoNeb inhalations, IV Solu-Medrol, Chantix. The patient is seen today 2019 and follow-up on the regular medical floor. He is awake and alert in no acute distress. He's been up ambulating in his room without any worsening shortness of breath, cough or congestion. He is feeling back to his baseline. He is maintaining O2 saturations in the 90s on room air. He's afebrile. Hemodynamically stable. Blood cultures reveal no growth. White count 11.1. Hemoglobin 13.2. Sodium 130. Potassium 4.3. Creatinine 0.63. He remains on DuoNeb inhalations, Symbicort inhalations, steroids. Objective - Vital Signs Vital signs: Vital Signs Temp 97.7 F 10/08/19 04:44 Pulse 80 10/08/19 08:53 Resp 18 10/08/19 04:44 BP 101/56 10/08/19 04:44 Pulse Ox 93 L 10/08/19 04:44 Intake & Output 10/07/19 10/08/19 10/08/19 18:59 06:59 18:59 Intake Total 600 Balance 600 Weight 66.678 kg Intake: Oral 600 Other: Voiding Method Toilet Toilet Toilet # Voids 2 2 - Exam GENERAL EXAM: Alert, active, very pleasant 74-year-old gentleman, on room air, comfortable in no apparent distress. HEAD: Normocephalic. EYES: Normal reaction of pupils, equal size. NOSE: Clear with pink turbinates. THROAT: No erythema or exudates. NECK: No masses, no JVD. CHEST: No chest wall deformity. LUNGS: Equal air entry with no crackles, wheeze, rhonchi or dullness. Diminished. CVS: S1 and S2 normal with no audible murmur, regular rhythm. ABDOMEN: No hepatosplenomegaly, normal bowel sounds, no guarding or rigidity. SPINE: No scoliosis or deformity SKIN: No rashes CENTRAL NERVOUS SYSTEM: No focal deficits, tone is normal in all 4 extremities. EXTREMITIES: There is no peripheral edema. No clubbing, no cyanosis. Peripheral pulses are intact.. - Labs CBC & Chem 7: 10/08/19 06:50 10/08/19 06:50 Labs: Abnormal Lab Results - Last 24 Hours (Table) 10/07/19 10/07/19 10/07/19 Range/Units 13:16 17:09 20:02 WBC (3.8-10.6) k/uL RBC (4.30-5.90) m/uL Neutrophils # (1.3-7.7) k/uL Lymphocytes # (1.0-4.8) k/uL Sodium (137-145) mmol/L Creatinine (0.66-1.25) mg/dL Glucose (74-99) mg/dL POC Glucose (mg/dL) 145 H 177 H 159 H (75-99) mg/dL 10/08/19 10/08/19 10/08/19 Range/Units 06:50 06:50 07:11 WBC 11.1 H (3.8-10.6) k/uL RBC 4.15 L (4.30-5.90) m/uL Neutrophils # 10.1 H (1.3-7.7) k/uL Lymphocytes # 0.6 L (1.0-4.8) k/uL Sodium 130 L (137-145) mmol/L Creatinine 0.63 L (0.66-1.25) mg/dL Glucose 144 H (74-99) mg/dL POC Glucose (mg/dL) 137 H (75-99) mg/dL Microbiology - Last 24 Hours (Table) 10/07/19 08:39 Blood Culture Gram Stain - Preliminary Blood 10/07/19 08:39 Blood Culture - Final Blood Assessment and Plan Assessment: 1 Acute exacerbation of chronic obstructive pulmonary disease in a patient with FEV1 value 53% of predicted. The chest x-ray is free of any acute pulmonary infiltrates. The patient is maintained on Symbicort, Incruse, albuterol. He continues to smoke 1 pack of cigarettes a day. 2 Chronic and ongoing tobacco dependence of greater than 60 years. 3 Recent and frequent admissions for COPD. 4 Pulmonary nodules with negative PET scan. 5 Chronic shortness of breath secondary to above 6 Hypertension. 7 History of paroxysmal atrial fibrillation anticoagulated with Eliquis. 8 Benign prostatic hyperplasia, on Flomax. Plan Seen and evaluated by Dr. Tucker He is cleared for discharge from the pulmonary standpoint He is again educated regarding importance of complete smoking cessation Follow-up in the office as scheduled I, the cosigning physician, performed a history & physical examination of the patient. Lungs sounds are clear, diminished. Maintaining good O2 saturations in the 90s on room air. I discussed the assessment and plan of care with my nurse practitioner, Qi Saez. I attest to the above consultation as dictated by her.
--- NOTE | 2019-10-08 11:52 | P.DS ---
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 He was started on IV steroids and updrafts. He quickly improved. We discussed smoking cessation and he agreed to try Chantix at this time to help quit smoking. He was seen by his home theater experience expert and was cleared for discharge on October 07. Incidental note of contamination of gram-positive cocci in clusters were found and a blood culture 1. This is most likely contaminant since he is been afebrile and does not appear ill in any other way. Patient will follow up in the office in 2-3 days Current Visit: No Status: Acute (7) Shortness of breath Current Visit: No Status: Acute (8) Smoker Current Visit: No Status: Acute Plan - Discharge Summary Discharge Rx Participant: No New Discharge Prescriptions: New Varenicline [Chantix Starter Pack] 0.5 mg PO DAILY #1 pkg predniSONE See Taper PO DAILY #30 tab Budesonide-Formot 160-4.5 Mcg [Symbicort 160-4.5 Mcg Inhaler] 2 puff INHALATION RT-BID puff Continue Tamsulosin HCl [Flomax] 0.8 mg PO HS Apixaban [Eliquis] 5 mg PO BID Metoprolol Tartrate [Lopressor] 50 mg PO BID Ipratropium-Albuterol Nebulize [Duoneb 0.5 mg-3 mg/3 ml Soln] 3 ml INHALATION RT-Q4H PRN PRN Reason: Shortness Of Breath Finasteride [Proscar] 5 mg PO DAILY Ergocalciferol [Vitamin D2 (DRISDOL)] 50,000 unit PO SA Umeclidinium [place] [Incruse Ellipta] 1 puff INHALATION RT-DAILY Calcium Carbonate [Calcium] 600 mg PO DAILY Acetaminophen [Tylenol] 650 mg PO Q6H PRN PRN Reason: PAIN/FEVER Albuterol Inhaler [Ventolin Hfa Inhaler] 1 puff INHALATION RT-TID PRN PRN Reason: Shortness Of Breath Albuterol Nebulized [Ventolin Nebulized] 2.5 mg INHALATION RT-Q4H HYDROcodone/APAP 7.5-325MG [[place] 7.5-325] 1 tab PO Q4H PRN PRN Reason: Pain Alendronate Sodium [Fosamax] 70 mg PO GROVES Cyclobenzaprine [Flexeril] 10 mg PO TID PRN PRN Reason: Pain Discharge Medication List Tamsulosin HCl [Flomax] 0.8 mg PO HS 03/24/18 [History] Apixaban [Eliquis] 5 mg PO BID 09/14/18 [History] Metoprolol Tartrate [Lopressor] 50 mg PO BID 02/04/19 [History] Ergocalciferol [Vitamin D2 (DRISDOL)] 50,000 unit PO SA 05/05/19 [History] Finasteride [Proscar] 5 mg PO DAILY 05/05/19 [History] Ipratropium-Albuterol Nebulize [Duoneb 0.5 mg-3 mg/3 ml Soln] 3 ml INHALATION RT-Q4H PRN 05/05/19 [History] Umeclidinium [place] [Incruse Ellipta] 1 puff INHALATION RT-DAILY 06/01/19 [History] Acetaminophen [Tylenol] 650 mg PO Q6H PRN 06/06/19 [History] Calcium Carbonate [Calcium] 600 mg PO DAILY 06/06/19 [History] Albuterol Inhaler [Ventolin Hfa Inhaler] 1 puff INHALATION RT-TID PRN 08/21/19 [History] Albuterol Nebulized [Ventolin Nebulized] 2.5 mg INHALATION RT-Q4H 08/21/19 [History] Alendronate Sodium [Fosamax] 70 mg PO GROVES 08/21/19 [History] HYDROcodone/APAP 7.5-325MG [[place] 7.5-325] 1 tab PO Q4H PRN 08/21/19 [History] Cyclobenzaprine [Flexeril] 10 mg PO TID PRN 10/07/19 [History] Budesonide-Formot 160-4.5 Mcg [Symbicort 160-4.5 Mcg Inhaler] 2 puff INHALATION RT-BID puff 10/08/19 [Rx] Varenicline [Chantix Starter Pack] 0.5 mg PO DAILY #1 pkg 10/08/19 [Rx] predniSONE See Taper PO DAILY #30 tab 10/08/19 [Rx] Follow up Appointment(s)/Referral(s): Fernando Lambert Jr, DO [Primary Care Provider] - 1-2 days Discharge Disposition: HOME SELF-CARE
[2019-10-08 12:01] LABS: Glucose,Whole Blood 119 mg/dL (75-99)
[2019-10-08 12:03] VITALS: BP 101/62; PULSE 68; TEMP 98
[2019-10-09] MEDS ORDERED: PANTOPRAZOLE 40 MG TABLET PO SCH (07:30)
[2019-10-10] MEDS ORDERED: ERGOCALCIFEROL 50,000 UNIT CAP PO SCH (09:00)
[2019-10-10] MEDS ORDERED: VARENICLINE 0.5 MG TAB PO SCH (09:00)
[2019-10-11] MEDS ORDERED: PATIENT'S OWN (Alendronate Sodium [Fosamax] 70 MG) PO SCH (07:00)
== END 2019-10-08 13:01 | disposition home or self-care (01) ==
LOC: EC 07:41 → 5NMEDONC 09:46
PROVIDERS: ADMIT Family Medicine; ATTEND Family Medicine
DX: J44.1 Chronic obstructive pulmonary disease with (acute) exacerbation (principal); F17.210 Nicotine dependence, cigarettes, uncomplicated; R91.8 Other nonspecific abnormal finding of lung field; I10 Essential (primary) hypertension; I48.0 Paroxysmal atrial fibrillation; N40.0 Benign prostatic hyperplasia without lower urinary tract symptoms; G89.29 Other chronic pain; M54.5 Low back pain; M51.9 Unspecified thoracic, thoracolumbar and lumbosacral intervertebral disc disorder; M81.0 Age-related osteoporosis without current pathological fracture; Z71.6 Tobacco abuse counseling; Z20.828 Contact with and (suspected) exposure to other viral communicable diseases; Z79.899 Other long term (current) drug therapy; Z79.51 Long term (current) use of inhaled steroids; Z79.01 Long term (current) use of anticoagulants; Z79.891 Long term (current) use of opiate analgesic; Z91.041 Radiographic dye allergy status; Z91.040 Latex allergy status; Z98.890 Other specified postprocedural states; Z98.41 Cataract extraction status, right eye; Z98.42 Cataract extraction status, left eye; Z96.1 Presence of intraocular lens; Z87.01 Personal history of pneumonia (recurrent); Z87.09 Personal history of other diseases of the respiratory system; Z87.19 Personal history of other diseases of the digestive system; Z82.49 Family history of ischemic heart disease and other diseases of the circulatory system; Z81.8 Family history of other mental and behavioral disorders
CPT/HCPCS: 96376 ×2; 96375 ×2; 96365; 99291; 36415; 94640 ×4; 93005; 83880; 80053; 80048; 83605; 83735; 84484; 85025 ×2; 85610; 85730; 87040; 87077; 87186; 71046; G0378 ×2; U0003; S0138 ×2; J2930 ×2; J0696; C9113 ×2

== ENCOUNTER 2019-10-15 06:25 | Emergency (ER) | payer MEDICARE ==
[2019-10-15 06:34] VITALS: TEMP 98.1
--- NOTE | 2019-10-15 06:58 | ED ---
ENT HPI - General Chief complaint: ENT Stated complaint: SORE THROAT Time Seen by Provider: 10/15/19 06:39 Source: patient Mode of arrival: ambulatory Limitations: no limitations - History of Present Illness Initial comments: Patient is a 74-year-old male presenting to emergency Department with complaints of a sore throat 4 days. He states it feels scratchy and hurts when he tries to swallow his pills. He denies any fever, chills, cough, shortness of breath, nasal congestion. He states he feels a little postnasal drip. He has not tried any medications for this. He has been able to eat and drink as normal. He denies any chest pain, nausea, vomiting, abdominal pain. He has no further complaints at this time. Upon arrival to the ER his vitals are stable. - Related Data Home Medications Medication Instructions Recorded Confirmed Tamsulosin HCl [Flomax] 0.8 mg PO HS 03/24/18 10/07/19 Apixaban [Eliquis] 5 mg PO BID 09/14/18 10/07/19 Metoprolol Tartrate [Lopressor] 50 mg PO BID 02/04/19 10/07/19 Ergocalciferol [Vitamin D2 50,000 unit PO SA 05/05/19 10/07/19 (DRISDOL)] Finasteride [Proscar] 5 mg PO DAILY 05/05/19 10/07/19 Ipratropium-Albuterol Nebulize 3 ml INHALATION RT-Q4H PRN 05/05/19 10/07/19 [Duoneb 0.5 mg-3 mg/3 ml Soln] Umeclidinium [place] [Incruse 1 puff INHALATION RT-DAILY 06/01/19 10/07/19 Ellipta] Acetaminophen [Tylenol] 650 mg PO Q6H PRN 06/06/19 10/07/19 Calcium Carbonate [Calcium] 600 mg PO DAILY 06/06/19 10/07/19 Albuterol Inhaler [Ventolin Hfa 1 puff INHALATION RT-TID PRN 08/21/19 10/07/19 Inhaler] Albuterol Nebulized [Ventolin 2.5 mg INHALATION RT-Q4H 08/21/19 10/07/19 Nebulized] Alendronate Sodium [Fosamax] 70 mg PO GROVES 08/21/19 10/07/19 HYDROcodone/APAP 7.5-325MG [[place] 1 tab PO Q4H PRN 08/21/19 10/07/19 7.5-325] Cyclobenzaprine [Flexeril] 10 mg PO TID PRN 10/07/19 10/07/19 Previous Rx's Medication Instructions Recorded Budesonide-Formot 160-4.5 Mcg 2 puff INHALATION RT-BID puff 10/08/19 [Symbicort 160-4.5 Mcg Inhaler] Varenicline [Chantix Starter Pack] 0.5 mg PO DAILY #1 pkg 10/08/19 predniSONE See Taper PO DAILY #30 tab 10/08/19 Allergies Allergy/AdvReac Type Severity Reaction Status Date / Time Iodinated Contrast Media Allergy Rash/Hives Verified 10/15/19 06:34 [Iodinated Contrast- Oral and IV Dye] latex Allergy Rash/Hives Verified 10/15/19 06:34 Review of Systems ROS Statement: Those systems with pertinent positive or pertinent negative responses have been documented in the HPI. ROS Other: All systems not noted in ROS Statement are negative. Past Medical History Past Medical History: Atrial Fibrillation, COPD, Pneumonia, Prostate Disorder Additional Past Medical History / Comment(s): Paroxysmal Afib, bronchitis, pulmonary nodules/negative pet scan, BPH, constipation, vertigo, chronic low back pain/DDD. History of Any Multi-Drug Resistant Organisms: None Reported Past Surgical History: Back Surgery Additional Past Surgical History / Comment(s): Bilateral cataract removals-lens implants, colonoscopy, multiple kyphoplasties. Past Anesthesia/Blood Transfusion Reactions: No Reported Reaction Additional Past Anesthesia/Blood Transfusion Reaction / Comment(s): Has never received any blood transfusions. Past Psychological History: No Psychological Hx Reported Smoking Status: Current some day smoker Past Alcohol Use History: None Reported Past Drug Use History: None Reported - Past Family History Mother Family Medical History: AFIB, Dementia Father Family Medical History: Myocardial Infarction ([place]) Additional Family Medical History / Comment(s): in his 70's [place] General Exam - General Exam Comments Initial Comments: GENERAL: Patient is well-developed and well-nourished. Patient is nontoxic and in no acute distress. HEAD: Atraumatic, normocephalic. EYES: Pupils equal round and reactive to light, extraocular movements intact, sclera anicteric, conjunctiva are normal. Eyelids were unremarkable. ENT: TMs normal, nares patent, oropharynx is erythematous, no exudate. Moist mucous membranes. NECK: Normal range of motion, supple without lymphadenopathy or JVD. LUNGS: Unlabored respirations. Breath sounds clear to auscultation bilaterally and equal. No wheezes rales or rhonchi. HEART: Regular rate and rhythm without murmurs, rubs or gallops. ABDOMEN: Soft, nontender, normoactive bowel sounds. No guarding, no rebound. No masses appreciated. : Deferred MUSCULOSKELETAL: Normal extremities with adequate strength and normal range of motion, no pitting or edema. No clubbing or cyanosis. NEUROLOGICAL: Normal speech, normal gait. PSYCH: Normal mood, normal affect. SKIN: Warm, Dry, normal turgor, no rashes or lesions noted. Limitations: no limitations Course Vital Signs 10/15/19 06:31 Temperature 98.1 F Pulse Rate 103 H Respiratory 18 Rate Blood Pressure 154/89 O2 Sat by Pulse 95 Oximetry Medical Decision Making - Medical Decision Making Patient is a 74-year-old male here for a sore throat 4 days. His vitals are stable, afebrile. He is able to eat and drink as normal. Strep test is negative. Culture will be sent. I discussed with patient this is most likely viral nature. Patient states he is already taking steroids for a COPD exacerbation. I recommended [id number] Chloraseptic throat spray as well as Tylenol for discomfort. I also discussed drinking lots of water. He can follow up with his PCP as symptoms persist. Patient is stable for discharge and he is in agreement with this plan of care. Return parameters were discussed with the patient he verbalizes understanding. - Lab Data Lab Results 10/15/19 Range/Units 06:54 Group A Strep Rapid Negative (Negative) Disposition Clinical Impression: Sore throat Disposition: HOME SELF-CARE Condition: Stable Instructions (If sedation given, give patient instructions): Pharyngitis (ED) Additional Instructions: Please return to the Emergency Department if symptoms worsen or any other concerns. Recommend [id number] throat spray such as Chloraseptic for discomfort. May also take Tylenol, drink lots of water. Follow-up with PCP if symptoms persist. Is patient prescribed a controlled substance at d/c from ED?: No Referrals: Fernando Lambert Jr, DO [Primary Care Provider] - 1-2 days
[2019-10-15 07:34] VITALS: BP 132/76; PULSE 88; RESP 16
== END 2019-10-15 07:31 | disposition home or self-care (01) ==
LOC: EC 06:25
DX: J02.9 Acute pharyngitis, unspecified (principal); J44.1 Chronic obstructive pulmonary disease with (acute) exacerbation; N40.0 Benign prostatic hyperplasia without lower urinary tract symptoms; I48.0 Paroxysmal atrial fibrillation; F17.200 Nicotine dependence, unspecified, uncomplicated; Z79.01 Long term (current) use of anticoagulants; Z79.51 Long term (current) use of inhaled steroids; Z79.899 Other long term (current) drug therapy; Z91.040 Latex allergy status; Z91.041 Radiographic dye allergy status; Z98.42 Cataract extraction status, left eye; Z98.41 Cataract extraction status, right eye; Z96.1 Presence of intraocular lens
CPT/HCPCS: 87081; 87430; 99283

== ENCOUNTER 2019-10-28 17:33 | Emergency (ER) | payer MEDICARE, OTHER ==
[2019-10-28] MEDS ORDERED: dexAMETHasone 4 MG TAB PO STA (18:17)
[2019-10-28] MEDS ORDERED: IPRATROPIUM 0.5 MG/2.5 ML NEBU INHALATION STA (18:17)
[2019-10-28] MEDS ORDERED: ALBUTEROL NEBULIZED 2.5 MG/3 ML INHALATION STA (18:17)
--- NOTE | 2019-10-28 18:38 | ED ---
General Adult HPI - General Chief complaint: Shortness of Breath Stated complaint: SOB Time Seen by Provider: 10/28/19 18:06 Source: patient Mode of arrival: ambulatory - History of Present Illness Initial comments: Dictation was produced using [employer] dictation software. please excuse any grammatical, word or spelling errors. This patient was cared for during a federal and state declared state of emergency secondary to Covid 19 Chief Complaint: 74-year-old male past medical history A. fib ablation, COPD and pneumonia presents with shortness of breath and cough History of Present Illness: Is 74-year-old male. Since yesterday he has been having worsening shortness of breath. Patient states that his cough is baseline. Does have a fruit thinner. He does not use home oxygen. Patient uses regular inhaler treatments however he became short of breath after one hour after one of his breathing treatments. Patient denies any fever. She denies any productive cough. Reports his cough is dry The ROS documented in this emergency department record has been reviewed and confirmed by me. Those systems with pertinent positive or negative responses have been documented in the HPI. All other systems are other negative and/or noncontributory. PHYSICAL EXAM: General Impression: Alert and oriented x3, mildly dyspneic HEENT: Normocephalic atraumatic, extra-ocular movements intact, pupils equal and reactive to light bilaterally, mucous membranes moist. Cardiovascular: Heart regular rate and rhythm Chest: Able to complete full sentences, no retractions, no tachypnea, diffuse lung wheezing Abdomen: abdomen soft, non-tender, non-distended, no organomegaly Musculoskeletal: Pulses present and equal in all extremities, no peripheral edema Motor: no focal deficits noted Neurological: CN II-XII grossly intact, no focal motor or sensory deficits noted Skin: Intact with no visualized rashes Psych: Normal affect and mood ED course: 74-year-old male presents with cockup presentation consistent with COPD exacerbation as upon arrival are within acceptable limits. Chest x-ray is unremarkable. Patient reevaluated after breathing treatment and steroids. Patient is dramatically improved. Patient told to continue using his breathing medicines every 4 hours for the next 2-3 days. He is also told to follow-up with his fruit thinner. Return parameters was discussed. Patient clear for discharge. EKG interpretation: Ventricular rate and he 6, normal sinus rhythm, MS interval 140, QRS 82, QTc 447. No MS prolongation, no QTC prolongation, no ST or T-wave changes noted. Overall, this EKG is unremarkable - Related Data Home Medications Medication Instructions Recorded Confirmed Tamsulosin HCl [Flomax] 0.4 mg PO BID 03/24/18 10/28/19 Apixaban [Eliquis] 5 mg PO BID 09/14/18 10/28/19 Metoprolol Tartrate [Lopressor] 50 mg PO BID 02/04/19 10/28/19 Ergocalciferol [Vitamin D2 50,000 unit PO GROVES 05/05/19 10/28/19 (DRISDOL)] Finasteride [Proscar] 5 mg PO DAILY 05/05/19 10/28/19 Ipratropium-Albuterol Nebulize 3 ml INHALATION RT-Q4H PRN 05/05/19 10/28/19 [Duoneb 0.5 mg-3 mg/3 ml Soln] Umeclidinium [place] [Incruse 1 puff INHALATION RT-DAILY 06/01/19 10/28/19 Ellipta] Acetaminophen [Tylenol] 650 mg PO Q6H PRN 06/06/19 10/28/19 Calcium Carbonate [Calcium] 600 mg PO DAILY 06/06/19 10/28/19 Albuterol Inhaler [Ventolin Hfa 2 puff INHALATION RT-Q6H PRN 08/21/19 10/28/19 Inhaler] Albuterol Nebulized [Ventolin 2.5 mg INHALATION RT-Q4H 08/21/19 10/28/19 Nebulized] Alendronate Sodium [Fosamax] 70 mg PO GROVES 08/21/19 10/28/19 Psyllium Husk [Metamucil] 0.8 gm PO DAILY 10/28/19 10/28/19 Previous Rx's Medication Instructions Recorded Budesonide-Formot 160-4.5 Mcg 2 puff INHALATION RT-BID puff 10/08/19 [Symbicort 160-4.5 Mcg Inhaler] Varenicline [Chantix Starter Pack] 0.5 mg PO DAILY #1 pkg 10/08/19 Allergies Allergy/AdvReac Type Severity Reaction Status Date / Time Iodinated Contrast Media Allergy Rash/Hives Verified 10/28/19 18:57 [Iodinated Contrast- Oral and IV Dye] latex Allergy Rash/Hives Verified 10/28/19 18:57 Review of Systems ROS Statement: Those systems with pertinent positive or pertinent negative responses have been documented in the HPI. ROS Other: All systems not noted in ROS Statement are negative. Past Medical History Past Medical History: Atrial Fibrillation, COPD, Pneumonia, Prostate Disorder Additional Past Medical History / Comment(s): Paroxysmal Afib, bronchitis, pulmonary nodules/negative pet scan, BPH, constipation, vertigo, chronic low back pain/DDD. History of Any Multi-Drug Resistant Organisms: None Reported Past Surgical History: Back Surgery Additional Past Surgical History / Comment(s): Bilateral cataract removals-lens implants, colonoscopy, multiple kyphoplasties. Past Anesthesia/Blood Transfusion Reactions: No Reported Reaction Additional Past Anesthesia/Blood Transfusion Reaction / Comment(s): Has never received any blood transfusions. Past Psychological History: No Psychological Hx Reported Smoking Status: Current some day smoker Past Alcohol Use History: None Reported Past Drug Use History: None Reported - Past Family History Mother Family Medical History: AFIB, Dementia Father Family Medical History: Myocardial Infarction ([place]) Additional Family Medical History / Comment(s): in his 70's [place] Course Vital Signs 10/28/19 10/28/19 10/28/19 17:51 17:56 18:34 Temperature 98 F Pulse Rate 101 H 96 Respiratory 18 18 18 Rate Blood Pressure 140/85 140/89 O2 Sat by Pulse 99 97 Oximetry 10/28/19 10/28/19 10/28/19 18:35 18:53 19:20 Temperature 98.2 F Pulse Rate 90 86 91 Respiratory 18 Rate Blood Pressure 118/83 O2 Sat by Pulse 96 Oximetry 10/28/19 20:10 Temperature Pulse Rate 98 Respiratory 19 Rate Blood Pressure 138/79 O2 Sat by Pulse 97 Oximetry Disposition Clinical Impression: COPD exacerbation Disposition: HOME SELF-CARE Condition: Good Instructions (If sedation given, give patient instructions): COPD (Chronic Obstructive Pulmonary Disease) (ED) Is patient prescribed a controlled substance at d/c from ED?: No Referrals: Flakita Arvizu MD [STAFF PHYSICIAN] - 1-2 days Time of Disposition: 20:19
--- NOTE | 2019-10-28 19:05 | XR ---
EXAMINATION TYPE: XR chest 2V DATE OF EXAM: 10/28/2019 COMPARISON: 10/07/2019 INDICATION: Cough, short of breath TECHNIQUE: Frontal and lateral views of the chest are obtained. FINDINGS: The heart size is normal. The pulmonary vasculature is normal. There is mild increased lung markings in the lower lung meyers. Correlate for subsegmental atelectasi s.. IMPRESSION: 1. Some mild subsegmental atelectasis may be present. 2. No significant interval changes evident.
[2019-10-28 20:12] VITALS: BP 138/79; PULSE 98; RESP 19
[2019-10-28 20:21] VITALS: TEMP 97.8
== END 2019-10-28 20:30 | disposition home or self-care (01) ==
LOC: EC 17:33
DX: J44.1 Chronic obstructive pulmonary disease with (acute) exacerbation (principal); I48.0 Paroxysmal atrial fibrillation; F17.200 Nicotine dependence, unspecified, uncomplicated; N40.0 Benign prostatic hyperplasia without lower urinary tract symptoms; Z79.01 Long term (current) use of anticoagulants; Z79.51 Long term (current) use of inhaled steroids; Z79.899 Other long term (current) drug therapy; Z91.041 Radiographic dye allergy status; Z91.040 Latex allergy status; Z82.49 Family history of ischemic heart disease and other diseases of the circulatory system; Z98.41 Cataract extraction status, right eye; Z98.42 Cataract extraction status, left eye; Z96.1 Presence of intraocular lens
CPT/HCPCS: 94640; 93005; 71046; 99285; J8540

== ENCOUNTER 2019-11-03 20:11 | Observation (INO) | payer MEDICARE ==
[2019-11-03] MEDS ORDERED: methylPREDNISolone SOD SUCCI 125 MG/2 ML VIAL IV STA (20:32)
[2019-11-03] MEDS ORDERED: IPRATROPIUM-ALBUTEROL 3 ML NEB INHALATION STA (20:32)
--- NOTE | 2019-11-03 20:34 | ED ---
General Adult HPI - General Chief complaint: Shortness of Breath Stated complaint: Diff Breathing Time Seen by Provider: 11/03/19 20:18 Source: patient, RN notes reviewed Mode of arrival: wheelchair Limitations: no limitations - History of Present Illness Initial comments: Patient is a pleasant 74-year-old male presenting to the emergency Department with complaints of difficulty breathing. Onset of symptoms was a couple of days ago. Patient has occasional cough is been nonproductive. Patient does feel like there is chest and sinus congestion. No fevers. Patient does have history of similar symptoms previously associated with COPD. Patient has mild chronic leg swelling that is less than normal for him at this time. - Related Data Home Medications Medication Instructions Recorded Confirmed Tamsulosin HCl [Flomax] 0.4 mg PO BID 03/24/18 11/03/19 Apixaban [Eliquis] 5 mg PO BID 09/14/18 11/03/19 Metoprolol Tartrate [Lopressor] 50 mg PO BID 02/04/19 11/03/19 Ergocalciferol [Vitamin D2 50,000 unit PO GROVES 05/05/19 11/03/19 (DRISDOL)] Finasteride [Proscar] 5 mg PO DAILY 05/05/19 11/03/19 Ipratropium-Albuterol Nebulize 3 ml INHALATION RT-Q4H PRN 05/05/19 11/03/19 [Duoneb 0.5 mg-3 mg/3 ml Soln] Umeclidinium [place] [Incruse 1 puff INHALATION RT-DAILY 06/01/19 11/03/19 Ellipta] Acetaminophen [Tylenol] 650 mg PO Q6H PRN 06/06/19 11/03/19 Calcium Carbonate [Calcium] 600 mg PO DAILY 06/06/19 11/03/19 Albuterol Inhaler [Ventolin Hfa 2 puff INHALATION RT-Q6H PRN 08/21/19 11/03/19 Inhaler] Albuterol Nebulized [Ventolin 2.5 mg INHALATION RT-Q4H 08/21/19 11/03/19 Nebulized] Alendronate Sodium [Fosamax] 70 mg PO GROVES 08/21/19 11/03/19 Psyllium Husk [Metamucil] 0.8 gm PO DAILY 10/28/19 11/03/19 Previous Rx's Medication Instructions Recorded Budesonide-Formot 160-4.5 Mcg 2 puff INHALATION RT-BID puff 10/08/19 [Symbicort 160-4.5 Mcg Inhaler] Varenicline [Chantix Starter Pack] 0.5 mg PO DAILY #1 pkg 10/08/19 Allergies Allergy/AdvReac Type Severity Reaction Status Date / Time Iodinated Contrast Media Allergy Rash/Hives Verified 11/03/19 21:55 [Iodinated Contrast- Oral and IV Dye] latex Allergy Rash/Hives Verified 11/03/19 21:55 Review of Systems ROS Statement: Those systems with pertinent positive or pertinent negative responses have been documented in the HPI. ROS Other: All systems not noted in ROS Statement are negative. Constitutional: Denies: fever Eyes: Denies: eye pain ENT: Denies: ear pain Respiratory: Reports: cough, dyspnea Cardiovascular: Denies: chest pain Endocrine: Reports: fatigue Gastrointestinal: Denies: abdominal pain Genitourinary: Denies: dysuria Musculoskeletal: Denies: back pain Skin: Denies: rash Neurological: Denies: weakness Past Medical History Past Medical History: Atrial Fibrillation, COPD, Pneumonia, Prostate Disorder Additional Past Medical History / Comment(s): Paroxysmal Afib, bronchitis, pulmonary nodules/negative pet scan, BPH, constipation, vertigo, chronic low back pain/DDD. History of Any Multi-Drug Resistant Organisms: None Reported Past Surgical History: Back Surgery Additional Past Surgical History / Comment(s): Bilateral cataract removals-lens implants, colonoscopy, multiple kyphoplasties. Past Anesthesia/Blood Transfusion Reactions: No Reported Reaction Additional Past Anesthesia/Blood Transfusion Reaction / Comment(s): Has never received any blood transfusions. Past Psychological History: No Psychological Hx Reported Smoking Status: Current every day smoker Past Alcohol Use History: None Reported Past Drug Use History: None Reported - Past Family History Mother Family Medical History: AFIB, Dementia Father Family Medical History: Myocardial Infarction ([place]) Additional Family Medical History / Comment(s): in his 70's [place] General Exam Limitations: no limitations General appearance: alert, in no apparent distress Head exam: Present: normocephalic Eye exam: Present: normal appearance Neck exam: Present: normal inspection Respiratory exam: Present: respiratory distress, wheezes Cardiovascular Exam: Present: tachycardia GI/Abdominal exam: Present: soft. Absent: tenderness Extremities exam: Present: normal inspection. Absent: pedal edema, calf tenderness Neurological exam: Present: alert Psychiatric exam: Present: normal affect, normal mood Skin exam: Present: normal color Course Vital Signs 11/03/19 11/03/19 11/03/19 20:14 20:45 20:52 Temperature 98.3 F Pulse Rate 112 H 78 80 Respiratory 22 20 18 Rate Blood Pressure 115/68 O2 Sat by Pulse 94 L Oximetry EKG Findings - EKG Comments: EKG Findings:: Sinus tachycardia 102. TX 154. QRS 84. QT 346. QTc 450. Normal axis. Normal QRS. No acute ST change. Medical Decision Making - Medical Decision Making I discussed smoking cessation for greater than 3 minutes. The risks of smoking were discussed with the patient including but not limited to wrist of cancer, stroke, coronary artery disease, and COPD. Also discussed with the patient were multiple methods of quitting smoking. Lastly, we discussed the financial cost of smoking. Patient reevaluated and slightly improved. Patient still is wheezing. Patient no longer in respiratory distress. Patient had change. A brambila and family updated on results and plan. Case was discussed in detail with Dr. Ortega, who will admit covering with Dr. Sanders. - Lab Data Result diagrams: 11/03/19 20:57 11/03/19 20:57 Lab Results 11/03/19 11/03/19 11/03/19 Range/Units 20:57 20:57 20:57 WBC 9.4 (3.8-10.6) k/uL RBC 4.60 (4.30-5.90) m/uL Hgb 14.7 (13.0-17.5) gm/dL Hct 43.7 (39.0-53.0) % MCV 95.2 (80.0-100.0) fL MCH 32.1 (25.0-35.0) pg MCHC 33.7 (31.0-37.0) g/dL RDW 12.4 (11.5-15.5) % Plt Count 224 (150-450) k/uL Neutrophils % 60 % Lymphocytes % 20 % Monocytes % 9 % Eosinophils % 8 % Basophils % 1 % Neutrophils # 5.7 (1.3-7.7) k/uL Lymphocytes # 1.8 (1.0-4.8) k/uL Monocytes # 0.8 (0-1.0) k/uL Eosinophils # 0.7 (0-0.7) k/uL Basophils # 0.1 (0-0.2) k/uL PT 10.0 (9.0-12.0) sec INR 1.0 (<1.2) APTT 25.7 (22.0-30.0) sec Sodium 134 L (137-145) mmol/L Potassium 4.3 (3.5-5.1) mmol/L Chloride 102 (98-107) mmol/L Carbon Dioxide 24 (22-30) mmol/L Anion Gap 8 mmol/L BUN 19 (9-20) mg/dL Creatinine 0.85 (0.66-1.25) mg/dL Est GFR (CKD-EPI)AfAm >90 (>60 ml/min/1.73 sqM) Est GFR (CKD-EPI)NonAf 86 (>60 ml/min/1.73 sqM) Glucose 104 H (74-99) mg/dL Plasma Lactic Acid [place] (0.7-2.0) mmol/L Calcium 9.6 (8.4-10.2) mg/dL Total Bilirubin 0.3 (0.2-1.3) mg/dL AST 17 (17-59) U/L ALT 13 (4-49) U/L Alkaline Phosphatase 106 (38-126) U/L Total Protein 5.9 L (6.3-8.2) g/dL Albumin 3.9 (3.5-5.0) g/dL 11/03/19 Range/Units 20:57 WBC (3.8-10.6) k/uL RBC (4.30-5.90) m/uL Hgb (13.0-17.5) gm/dL Hct (39.0-53.0) % MCV (80.0-100.0) fL MCH (25.0-35.0) pg MCHC (31.0-37.0) g/dL RDW (11.5-15.5) % Plt Count (150-450) k/uL Neutrophils % % Lymphocytes % % Monocytes % % Eosinophils % % Basophils % % Neutrophils # (1.3-7.7) k/uL Lymphocytes # (1.0-4.8) k/uL Monocytes # (0-1.0) k/uL Eosinophils # (0-0.7) k/uL Basophils # (0-0.2) k/uL PT (9.0-12.0) sec INR (<1.2) APTT (22.0-30.0) sec Sodium (137-145) mmol/L Potassium (3.5-5.1) mmol/L Chloride (98-107) mmol/L Carbon Dioxide (22-30) mmol/L Anion Gap mmol/L BUN (9-20) mg/dL Creatinine (0.66-1.25) mg/dL Est GFR (CKD-EPI)AfAm (>60 ml/min/1.73 sqM) Est GFR (CKD-EPI)NonAf (>60 ml/min/1.73 sqM) Glucose (74-99) mg/dL Plasma Lactic Acid [place] 1.3 (0.7-2.0) mmol/L Calcium (8.4-10.2) mg/dL Total Bilirubin (0.2-1.3) mg/dL AST (17-59) U/L ALT (4-49) U/L Alkaline Phosphatase (38-126) U/L Total Protein (6.3-8.2) g/dL Albumin (3.5-5.0) g/dL - Radiology Data Radiology results: image reviewed (Chest x-ray shows pulmonary interstitial infiltrates that could be related to interstitial fibrosis. Stable to prior exam.) Disposition Clinical Impression: COPD with acute exacerbation Disposition: ADMITTED IP TO THIS HOSP Is patient prescribed a controlled substance at d/c from ED?: No Referrals: Fernando Lambert Jr, DO [Primary Care Provider] - 1-2 days Decision Time: 22:01
--- NOTE | 2019-11-03 20:51 | XR ---
EXAMINATION TYPE: XR chest 2V DATE OF EXAM: 11/03/2019 COMPARISON: 10/28/2019 HISTORY: Difficulty breathing TECHNIQUE: FINDINGS: There is some coarsening of interstitial markings. There is relative decreased inspiration. There is multilevel thoracic and lumbar vertebroplasty. There is no pleural effusion. There is no he art failure. IMPRESSION: Pulmonary interstitial infiltrates that could relate to interstitial fibrosis. Chest is s table compared to last exam. No heart failure.
[2019-11-03 21:23] LABS: Basophils # (A) 0.1 k/uL (0-0.2); Basophils % (A) 1 %; Eosinophils # (A) 0.7 k/uL (0-0.7); Eosinophils % (A) 8 %; HCT 43.7 % (39.0-53.0); HGB 14.7 gm/dL (13.0-17.5); Lymphocytes # (A) 1.8 k/uL (1.0-4.8); Lymphocytes % (A) 20 %; MCH 32.1 pg (25.0-35.0); MCHC 33.7 g/dL (31.0-37.0); MCV 95.2 fL (80.0-100.0); Mean Platelet Volume 7.4; Monocytes # (A) 0.8 k/uL (0-1.0); Monocytes % (A) 9 %; Neutrophils # (A) 5.7 k/uL (1.3-7.7); Neutrophils % (A) 60 %; Platelet Count 224 k/uL (150-450); RDW 12.4 % (11.5-15.5); WBC 9.4 k/uL (3.8-10.6)
[2019-11-03 21:32] LABS: Partial Thromboplastin Time 25.7 sec (22.0-30.0)
[2019-11-03 21:34] LABS: ALT 13 U/L (4-49); AST 17 U/L (17-59); African American GFR (CKD) >90 (>60 ml/min/1.73 sqM); Albumin 3.9 g/dL (3.5-5.0); Alkaline Phosphatase 106 U/L (38-126); Anion Gap 8 mmol/L; Blood Urea Nitrogen 19 mg/dL (9-20); Calcium 9.6 mg/dL (8.4-10.2); Carbon Dioxide 24 mmol/L (22-30); Chloride 102 mmol/L (98-107); Glucose 104 mg/dL (74-99); Non-African American GFR(CKD) 86 (>60 ml/min/1.73 sqM); Potassium 4.3 mmol/L (3.5-5.1); Sodium 134 mmol/L (137-145); Total Bilirubin 0.3 mg/dL (0.2-1.3); Total Protein 5.9 g/dL (6.3-8.2)
[2019-11-03] MEDS: CEFDINIR 300 MG CAP PO SCH (22:20)
[2019-11-04] MEDS: methylPREDNISolone SOD SUCCI 125 MG/2 ML VIAL IV SCH ×5 (00:08→23:43)
[2019-11-04] MEDS ORDERED: ALBUTEROL NEBULIZED 2.5 MG/3 ML INHALATION PRN (02:00)
[2019-11-04] MEDS: IPRATROPIUM-ALBUTEROL 3 ML NEB INHALATION PRN (03:50)
[2019-11-04 06:33] LABS: Glucose,Whole Blood 173 mg/dL (75-99)
[2019-11-04] MEDS: INSULIN ASPART (NovoLOG) 100 UNIT/ML VIAL SQ SCH ×4 (06:45→22:02)
[2019-11-04 06:57] LABS: Basophils % (A) 0 %; Eosinophils % (A) 1 %; HCT 43.8 % (39.0-53.0); HGB 14.2 gm/dL (13.0-17.5); Lymphocytes # (A) 0.4 k/uL (1.0-4.8); Lymphocytes % (A) 9 %; MCHC 32.3 g/dL (31.0-37.0); MCV 95.9 fL (80.0-100.0); Mean Platelet Volume 7.5; Monocytes # (A) 0.1 k/uL (0-1.0); Monocytes % (A) 2 %; Neutrophils # (A) 4.3 k/uL (1.3-7.7); Neutrophils % (A) 88 %; Platelet Count 229 k/uL (150-450); RBC 4.57 m/uL (4.30-5.90); RDW 12.3 % (11.5-15.5); WBC 4.9 k/uL (3.8-10.6)
[2019-11-04 07:15] LABS: ALT 15 U/L (4-49); AST 19 U/L (17-59); African American GFR (CKD) >90 (>60 ml/min/1.73 sqM); Albumin 3.9 g/dL (3.5-5.0); Alkaline Phosphatase 102 U/L (38-126); Anion Gap 8 mmol/L; Blood Urea Nitrogen 19 mg/dL (9-20); Carbon Dioxide 24 mmol/L (22-30); Chloride 102 mmol/L (98-107); Glucose 168 mg/dL (74-99); Magnesium 2.1 mg/dL (1.6-2.3); Non-African American GFR(CKD) >90 (>60 ml/min/1.73 sqM); Potassium 4.9 mmol/L (3.5-5.1); Sodium 134 mmol/L (137-145); Total Bilirubin 0.5 mg/dL (0.2-1.3); Total Protein 6.4 g/dL (6.3-8.2)
[2019-11-04] MEDS: SYMBICORT 160-4.5 MCG INHALER INHALATION SCH ×2 (08:34→21:02)
[2019-11-04] MEDS: IPRATROPIUM-ALBUTEROL 3 ML NEB INHALATION SCH ×4 (08:34→21:02)
[2019-11-04] MEDS: CALCIUM CARBONATE 500 MG CHEWABLE PO SCH (09:27)
[2019-11-04] MEDS: CEFDINIR 300 MG CAP PO SCH ×2 (09:27→22:02)
[2019-11-04] MEDS: APIXABAN 5 MG TAB PO SCH ×2 (09:27→21:39)
[2019-11-04] MEDS: TAMSULOSIN 0.4 MG CAP.ER.24H PO SCH ×2 (09:27→21:39)
[2019-11-04] MEDS: FINASTERIDE 5 MG TAB PO SCH (09:27)
[2019-11-04] MEDS: METOPROLOL TARTRATE 50 MG TAB PO SCH ×2 (09:27→21:39)
[2019-11-04 11:38] LABS: Glucose,Whole Blood 112 mg/dL (75-99)
--- NOTE | 2019-11-04 11:43 | P.CNPUL ---
History of Present Illness Consult date: 11/04/19 Requesting physician: Fernando Lambert Jr Reason for consult: dyspnea, cough Chief complaint: Dyspnea, cough, wheezing History of present illness: 73-year-old white male patient with known history of COPD, not oxygen dependent, current every day smoker, history of atrial fibrillation, who follows with Dr. Saez in the pulmonary clinic, who has had multiple admissions for complications related to COPD. Unfortunately patient continues to smoke. His baseline FEV1 is 53% of predicted, and he is maintained on, ration of Symbicort, increase and albuterol. Patient presented to the hospital on 11/03/2019 for complaints of dyspnea, cough, wheezing. Denied any fever or chills. Onset of symptoms was complicated days ago. His cough is nonproductive. he felt chest congestion. Chest x-ray shows pulmonary interstitial infiltrates the possibility of interstitial fibrosis, relatively decreased inspiration. EKG showed sinus tachycardia. Afebrile, no signs are stable. CBC was within normal limits, INR was 1.0, sodium was 134, the rest of electrolytes and renal profile were all within normal limits. Plasma lactic acid was 1.3, LFTs were within normal limits. Nebulized bronchodilators, IV steroids, were started, patient is feeling better today, he sat 94% on room air, she's been tolerating ambulation, less bronchospastic dyspnea, his cough and whitish colored sputum, no cognitive chest pain, no hemoptysis, he is requesting to be discharged home today Review of Systems All systems: negative Constitutional: Denies chills, Denies fever Eyes: denies blurred vision, denies pain Ears, nose, mouth and throat: Denies headache, Denies sore throat Cardiovascular: Denies chest pain, Denies shortness of breath Respiratory: Reports cough with sputum, Reports dyspnea, Denies cough Gastrointestinal: Denies abdominal pain, Denies diarrhea, Denies nausea, Denies vomiting Musculoskeletal: Denies myalgias Integumentary: Denies pruritus, Denies rash Neurological: Denies numbness, Denies weakness Psychiatric: Denies anxiety, Denies depression Endocrine: Denies fatigue, Denies weight change Past Medical History Past Medical History: Atrial Fibrillation, COPD, Pneumonia, Prostate Disorder Additional Past Medical History / Comment(s): Paroxysmal Afib, bronchitis, pulmonary nodules/negative pet scan, BPH, constipation, vertigo, chronic low back pain/DDD. History of Any Multi-Drug Resistant Organisms: None Reported Past Surgical History: Back Surgery Additional Past Surgical History / Comment(s): Bilateral cataract removals-lens implants, colonoscopy, multiple kyphoplasties. Past Anesthesia/Blood Transfusion Reactions: No Reported Reaction Additional Past Anesthesia/Blood Transfusion Reaction / Comment(s): Has never received any blood transfusions. Past Psychological History: No Psychological Hx Reported Additional Psychological History / Comment(s): Pt resides with his son, Leobardo). His spouse is in a senior living. They live in a downstairs apartment. Pt manages his own medications. He has a nebulizer. His son cooks and drives pt to [employer]. Smoking Status: Current every day smoker Past Alcohol Use History: None Reported Additional Past Alcohol Use History / Comment(s): Pt started smoking age [age]) got up to 5 ppd for many years then cut down to 3 ppd, currently smoking a ppd or alittle more if his back is hurting. Past Drug Use History: None Reported - Past Family History Mother Family Medical History: AFIB, Dementia Father Family Medical History: Myocardial Infarction ([place]) Additional Family Medical History / Comment(s): in his 70's [place] Medications and Allergies Home Medications Medication Instructions Recorded Confirmed Type Tamsulosin HCl [Flomax] 0.4 mg PO BID 03/24/18 11/03/19 History Apixaban [Eliquis] 5 mg PO BID 09/14/18 11/03/19 History Metoprolol Tartrate [Lopressor] 50 mg PO BID 02/04/19 11/03/19 History Ergocalciferol [Vitamin D2 50,000 unit PO GROVES 05/05/19 11/03/19 History (DRISDOL)] Finasteride [Proscar] 5 mg PO DAILY 05/05/19 11/03/19 History Ipratropium-Albuterol Nebulize 3 ml INHALATION RT-Q4H PRN 05/05/19 11/03/19 History [Duoneb 0.5 mg-3 mg/3 ml Soln] Umeclidinium [place] [Incruse 1 puff INHALATION RT-DAILY 06/01/19 11/03/19 History Ellipta] Acetaminophen [Tylenol] 650 mg PO Q6H PRN 06/06/19 11/03/19 History Calcium Carbonate [Calcium] 600 mg PO DAILY 06/06/19 11/03/19 History Albuterol Inhaler [Ventolin Hfa 2 puff INHALATION RT-Q6H PRN 08/21/19 11/03/19 History Inhaler] Albuterol Nebulized [Ventolin 2.5 mg INHALATION RT-Q4H 08/21/19 11/03/19 History Nebulized] Alendronate Sodium [Fosamax] 70 mg PO GROVES 08/21/19 11/03/19 History Budesonide-Formot 160-4.5 Mcg 2 puff INHALATION RT-BID puff 10/08/19 11/03/19 Rx [Symbicort 160-4.5 Mcg Inhaler] Varenicline [Chantix Starter Pack] 0.5 mg PO DAILY #1 pkg 10/08/19 11/03/19 Rx Psyllium [place] [Metamucil] 0.8 gm PO DAILY 10/28/19 11/03/19 History Allergies Allergy/AdvReac Type Severity Reaction Status Date / Time Iodinated Contrast Media Allergy Rash/Hives Verified 11/03/19 21:55 [Iodinated Contrast- Oral and IV Dye] latex Allergy Rash/Hives Verified 11/03/19 21:55 Physical Exam Vitals: Vital Signs Temp Pulse Pulse Resp BP BP Pulse Ox 11/04/19 11:27 90 11/04/19 11:19 88 11/04/19 09:00 97.9 F 118 H 18 123/82 94 L 11/04/19 08:48 108 H 11/04/19 08:36 107 H 95 11/04/19 03:50 76 11/04/19 03:00 97.8 F 98 18 130/84 95 11/03/19 23:00 97.7 F 101 H 18 123/86 97 11/03/19 22:10 98.0 F 80 18 122/69 94 L 11/03/19 20:52 80 18 11/03/19 20:45 78 20 11/03/19 20:14 98.3 F 112 H 22 115/68 94 L Intake and Output 11/03/19 11/04/19 11/04/19 22:59 06:59 14:59 Intake Total 900 Balance 900 Intake: Oral 900 Other: Voiding Method Toilet # Voids 1 Weight 61.235 kg 61.235 kg GENERAL EXAM: Alert, very pleasant, 74-year-old white male, on room air, with pulse ox of 94% comfortable in no apparent distress. HEAD: Normocephalic/atraumatic. EYES: Normal reaction of pupils, equal size. Conjunctiva pink, sclera white. NOSE: Clear with pink turbinates. THROAT: No erythema or exudates. NECK: No masses, no JVD, no thyroid enlargement, no adenopathy. CHEST: No chest wall deformity. Symmetrical expansion. LUNGS: Equal air entry with hardly any wheezes, a few scattered end expiratory wheezes, patient is on room air, 94%, no rhonchi, no crackles CVS: Regular rate and rhythm, normal S1 and S2, no gallops, no murmurs, no rubs ABDOMEN: Soft, nontender. No hepatosplenomegaly, normal bowel sounds, no guarding or rigidity. EXTREMITIES: No clubbing, no edema, no cyanosis, 2+ pulses and upper and lower extremities. MUSCULOSKELETAL: Muscle strength and tone normal. SPINE: No scoliosis or deformity SKIN: No rashes CENTRAL NERVOUS SYSTEM: Alert and oriented -3. No focal deficits, tone is normal in all 4 extremities. PSYCHIATRIC: Alert and oriented -3. Appropriate affect. Intact judgment and insight. Results - Laboratory Findings CBC and BMP: 11/04/19 06:03 11/04/19 06:03 PT/INR, D-dimer PT 10.0 sec (9.0-12.0) 11/03/19 20:57 INR 1.0 (<1.2) 11/03/19 20:57 Abnormal lab findings: Abnormal Labs 11/03/19 11/04/19 11/04/19 20:57 06:03 06:03 Lymphocytes # 0.4 L Sodium 134 L 134 L Glucose 104 H 168 H POC Glucose (mg/dL) Total Protein 5.9 L 11/04/19 06:32 Lymphocytes # Sodium Glucose POC Glucose (mg/dL) 173 H Total Protein - Diagnostic Findings Chest x-ray: report reviewed, image reviewed Additional studies: EKG reviewed Assessment and Plan Plan: Assessment: #1. Acute exacerbation of chronic obstructive pulmonary disease, chest x-ray showing no acute pulmonary process #2. Advanced COPD, with baseline FEV1 of 53% of predicted, consistent with stage III COPD, not oxygen dependent at baseline, maintained on a combination of Symbicort, Incruse, and albuterol #3. Chronic smoker, history of nicotine addiction, ongoing, carries 60+ years of smoking #4. Paroxysmal atrial fibrillation, on Eliquis #5. Benign prostatic hypertrophy #6. Bilateral cataract surgery, with lens implants #7. Chronic low back pain #8. Pulmonary nodules with negative PET scan #9. Hypertension Plan: Patient is improving, responded well to IV steroids, nebulized bronchodilators, will and oral doxycycline 100 mg twice daily for 10 days, patient is tolerating ambulation, his on room air, his vital signs are stable, he is requesting to go home today, from pulmonary perspective he can be considered for discharge home on prednisone taper, and ten-day course of oral doxycycline 100 mg twice daily, he can resume his maintenance Symbicort, increase and albuterol, smoking cessation was advised I performed a history & physical examination of the patient and discussed their management with my nurse practitioner, Coleen Worley. I reviewed the nurse practitioner's note and agree with the documented findings and plan of care. Lung sounds are positive for diminished breath sounds. The findings and the impression was discussed with the patient. I attest to the documentation by the nurse practitioner. Time with Patient: Greater than 30
--- NOTE | 2019-11-04 14:35 | P.HPIM ---
History of Present Illness H&P Date: 11/04/19 Chief Complaint: Worsening dyspnea This is a 74-year-old gentleman with history of paroxysmal atrial fibrillation, COPD, pulmonary nodules, back surgery, ongoing nicotine dependence-at least a [id number] smoker and multiple other medical issues. presented to the ER with complaints of worsening dyspnea 2 days, nonproductive cough. Denies chest pain, palpitations. Denies fever or chills. No hemoptysis. Minimal nonproductive cough. Denies lightheadedness, dizziness or focal deficits. Denies nausea vomiting or diarrhea. Denies syncope. Chest x-ray reporting pulm onary interstitial infiltrates related to interstitial fibrosis, chest stable, no CHF. EKG reporting sinus tachycardia, HR in the low 100s. Afebrile, normal WBC. Hematology, coagulation, chemistry panels unremarkable with the exception of sodium 134. Respiratory rate in the 20s on admission, maintaining O2 sats in the 90s on room air, mild tachycardia. IV steroids, antibiotics initiated. Review of Systems ROS Statement: Those systems with pertinent positive or pertinent negative responses have been documented in the HPI. ROS Other: All systems not noted in ROS Statement are negative. Past Medical History Past Medical History: Atrial Fibrillation, COPD, Pneumonia, Prostate Disorder Additional Past Medical History / Comment(s): Paroxysmal Afib, bronchitis, pulmonary nodules/negative pet scan, BPH, constipation, vertigo, chronic low back pain/DDD. History of Any Multi-Drug Resistant Organisms: None Reported Past Surgical History: Back Surgery Additional Past Surgical History / Comment(s): Bilateral cataract removals-lens implants, colonoscopy, multiple kyphoplasties. Past Anesthesia/Blood Transfusion Reactions: No Reported Reaction Additional Past Anesthesia/Blood Transfusion Reaction / Comment(s): Has never received any blood transfusions. Past Psychological History: No Psychological Hx Reported Additional Psychological History / Comment(s): Pt resides with his son, (Bryn). His spouse is in a correction. They live in a downstairs apartment. Pt manages his own medications. He has a nebulizer. His son cooks and drives pt to [employer]. Smoking Status: Current every day smoker Past Alcohol Use History: None Reported Additional Past Alcohol Use History / Comment(s): Pt started smoking age [age]) got up to 5 ppd for many years then cut down to 3 ppd, currently smoking a ppd or alittle more if his back is hurting. Past Drug Use History: None Reported - Past Family History Mother Family Medical History: AFIB, Dementia Father Family Medical History: Myocardial Infarction ([place]) Additional Family Medical History / Comment(s): in his 70's from [place] Medications and Allergies Home Medications Medication Instructions Recorded Confirmed Type Tamsulosin HCl [Flomax] 0.4 mg PO BID 03/24/18 11/03/19 History Apixaban [Eliquis] 5 mg PO BID 09/14/18 11/03/19 History Metoprolol Tartrate [Lopressor] 50 mg PO BID 02/04/19 11/03/19 History Ergocalciferol [Vitamin D2 50,000 unit PO GROVES 05/05/19 11/03/19 History (DRISDOL)] Finasteride [Proscar] 5 mg PO DAILY 05/05/19 11/03/19 History Ipratropium-Albuterol Nebulize 3 ml INHALATION RT-Q4H PRN 05/05/19 11/03/19 History [Duoneb 0.5 mg-3 mg/3 ml Soln] Umeclidinium [place] [Incruse 1 puff INHALATION RT-DAILY 06/01/19 11/03/19 History Ellipta] Acetaminophen [Tylenol] 650 mg PO Q6H PRN 06/06/19 11/03/19 History Calcium Carbonate [Calcium] 600 mg PO DAILY 06/06/19 11/03/19 History Albuterol Inhaler [Ventolin Hfa 2 puff INHALATION RT-Q6H PRN 08/21/19 11/03/19 History Inhaler] Albuterol Nebulized [Ventolin 2.5 mg INHALATION RT-Q4H 08/21/19 11/03/19 History Nebulized] Alendronate Sodium [Fosamax] 70 mg PO GROVES 08/21/19 11/03/19 History Budesonide-Formot 160-4.5 Mcg 2 puff INHALATION RT-BID puff 10/08/19 11/03/19 Rx [Symbicort 160-4.5 Mcg Inhaler] Varenicline [Chantix Starter Pack] 0.5 mg PO DAILY #1 pkg 10/08/19 11/03/19 Rx Psyllium Husk [Metamucil] 0.8 gm PO DAILY 10/28/19 11/03/19 History Allergies Allergy/AdvReac Type Severity Reaction Status Date / Time Iodinated Contrast Media Allergy Rash/Hives Verified 11/03/19 21:55 [Iodinated Contrast- Oral and IV Dye] latex Allergy Rash/Hives Verified 11/03/19 21:55 Physical Exam Vitals: Vital Signs Temp Pulse Pulse Resp BP BP Pulse Ox 11/04/19 11:27 90 11/04/19 11:19 88 11/04/19 09:00 97.9 F 118 H 18 123/82 94 L 11/04/19 08:48 108 H 11/04/19 08:36 107 H 95 11/04/19 03:50 76 11/04/19 03:00 97.8 F 98 18 130/84 95 11/03/19 23:00 97.7 F 101 H 18 123/86 97 11/03/19 22:10 98.0 F 80 18 122/69 94 L 11/03/19 20:52 80 18 11/03/19 20:45 78 20 11/03/19 20:14 98.3 F 112 H 22 115/68 94 L Intake and Output 11/03/19 11/04/19 11/04/19 22:59 06:59 14:59 Intake Total 900 Balance 900 Intake: Oral 900 Other: Voiding Method Toilet # Voids 1 Weight 61.235 kg 61.235 kg GENERAL EXAM: Pleasant 74-year-old gentleman. Alert, active, comfortable in no apparent distress, sitting up at bedside HEAD: Normocephalic. EYES: Normal reaction of pupils, equal size. NOSE: Clear with pink turbinates. THROAT: No erythema or exudates. NECK: No masses, no JVD. CHEST: No chest wall deformity. LUNGS: Diminished air entry,diminished breath sounds with minimal scattered rh onchi, expiratory wheezes CVS: S1 and S2 normal with no audible murmur, regular rhythm. ABDOMEN: No hepatosplenomegaly, normal bowel sounds, no guarding or rigidity. SPINE: No scoliosis or deformity SKIN: No rashes CENTRAL NERVOUS SYSTEM: No focal deficits, tone is normal in all 4 extremities. EXTREMITIES: There is no peripheral edema. No clubbing, no cyanosis. Peripheral pulses are intact. Results CBC & Chem 7: 11/04/19 06:03 11/04/19 06:03 Labs: Abnormal Lab Results - Last 24 Hours (Table) 11/03/19 11/04/19 11/04/19 Range/Units 20:57 06:03 06:03 Lymphocytes # 0.4 L (1.0-4.8) k/uL Sodium 134 L 134 L (137-145) mmol/L Glucose 104 H 168 H (74-99) mg/dL POC Glucose (mg/dL) (75-99) mg/dL Total Protein 5.9 L (6.3-8.2) g/dL 11/04/19 11/04/19 Range/Units 06:32 11:37 Lymphocytes # (1.0-4.8) k/uL Sodium (137-145) mmol/L Glucose (74-99) mg/dL POC Glucose (mg/dL) 173 H 112 H (75-99) mg/dL Total Protein (6.3-8.2) g/dL Assessment and Plan Assessment: Acute COPD exacerbation, in a patient with advanced COPD Ongoing nicotine dependence Recurrent admissions Pulmonary nodules, negative PET scan, following with pulmonary OP Hypertension Paroxysmal atrial fibrillation BPH Plan: Continue on current medication regime ,monitoring and symptomatic treatment. Maintain nebulized bronchodilators, steroids, antibiotics. Smoking cessation reinforced. Pulmonary consult in place, recommendations noted. Discharge planning in progress for tomorrow. The impression and plan of care has been dictated as directed. : I performed a history and examination of this patient, discussed the same with the dictator. I agree with the dictator's note ,documented as a scribe. Any additional findings or plans will be noted.
[2019-11-04 17:33] LABS: Glucose,Whole Blood 144 mg/dL (75-99)
[2019-11-04 20:06] LABS: Glucose,Whole Blood 151 mg/dL (75-99)
[2019-11-04 21:44] LABS: Glucose,Whole Blood 192 mg/dL (75-99)
[2019-11-04] MEDS: ACETAMINOPHEN TAB 325 MG TAB PO PRN (23:42)
[2019-11-05] MEDS: IPRATROPIUM-ALBUTEROL 3 ML NEB INHALATION PRN ×2 (00:49→03:58)
[2019-11-05 06:27] LABS: Glucose,Whole Blood 127 mg/dL (75-99)
[2019-11-05] MEDS: methylPREDNISolone SOD SUCCI 125 MG/2 ML VIAL IV SCH (06:33)
[2019-11-05] MEDS: ACETAMINOPHEN TAB 325 MG TAB PO PRN (06:37)
[2019-11-05] MEDS: INSULIN ASPART (NovoLOG) 100 UNIT/ML VIAL SQ SCH (06:41)
[2019-11-05 07:50] VITALS: BP 113/74; RESP 18; TEMP 97.6
[2019-11-05] MEDS: IPRATROPIUM-ALBUTEROL 3 ML NEB INHALATION SCH ×2 (07:54→11:41)
[2019-11-05] MEDS: SYMBICORT 160-4.5 MCG INHALER INHALATION SCH (07:54)
[2019-11-05 08:08] VITALS: PULSE 104
[2019-11-05] MEDS: CEFDINIR 300 MG CAP PO SCH (08:27)
[2019-11-05] MEDS: CALCIUM CARBONATE 500 MG CHEWABLE PO SCH (08:27)
[2019-11-05] MEDS: APIXABAN 5 MG TAB PO SCH (08:27)
[2019-11-05] MEDS: METOPROLOL TARTRATE 50 MG TAB PO SCH (08:27)
[2019-11-05] MEDS: TAMSULOSIN 0.4 MG CAP.ER.24H PO SCH (08:27)
[2019-11-05] MEDS: FINASTERIDE 5 MG TAB PO SCH (08:28)
[2019-11-05 11:19] LABS: Glucose,Whole Blood 123 mg/dL (75-99)
--- NOTE | 2019-11-05 12:54 | P.PN ---
Subjective Progress Note Date: 11/05/19 Principal diagnosis: Acute exacerbation of chronic obstructive pulmonary disease 73-year-old white male patient with known history of COPD, not oxygen dependent, current every day smoker, history of atrial fibrillation, who follows with Dr. Saez in the pulmonary clinic, who has had multiple admissions for complications related to COPD. Unfortunately patient continues to smoke. His baseline FEV1 is 53% of predicted, and he is maintained on, ration of Symbicort, increase and albuterol. Patient presented to the hospital on 11/03/2019 for complaints of dyspnea, cough, wheezing. Denied any fever or chills. Onset of symptoms was complicated days ago. His cough is nonproductive. he felt chest congestion. Chest x-ray shows pulmonary interstitial infiltrates the possi bility of interstitial fibrosis, relatively decreased inspiration. EKG showed sinus tachycardia. Afebrile, no signs are stable. CBC was within normal limits, INR was 1.0, sodium was 134, the rest of electrolytes and renal profile were all within normal limits. Plasma lactic acid was 1.3, LFTs were within normal limits. Nebulized bronchodilators, IV steroids, were started, patient is feeling better today, he sat 94% on room air, she's been tolerating ambulation, less bronchospastic dyspnea, his cough and whitish colored sputum, no cognitive chest pain, no hemoptysis, he is requesting to be discharged home today The patient is seen today 11/05/2019 in follow-up on the regular medical floor. He is awake and alert in no acute distress. Up ambulating in the room and hallway. No worsening shortness of breath, cough or congestion. Maintaining good O2 saturation in the 90s on room air. He's been afebrile. Blood culture reveals no growth to date. Blood glucose 123. He is continued on DuoNeb inhalations, Symbicort, IV Solu-Medrol. Empiric antibiotics in the form of Omnicef. Objective - Vital Signs Vital signs: Vital Signs Temp 97.6 F 11/05/19 07:47 Pulse 104 H 11/05/19 08:07 Resp 18 11/05/19 07:47 BP 113/74 11/05/19 07:47 Pulse Ox 98 11/05/19 07:54 Intake & Output 09/02/20 09/03/20 09/03/20 18:59 06:59 18:59 Intake Total 480 Balance 480 Intake: Oral 480 Other: Voiding Method Toilet Toilet # Voids 4 3 - Exam GENERAL EXAM: Alert, active, pleasant 74-year-old gentleman, on room air, comfortable in no apparent distress. HEAD: Normocephalic. EYES: Normal reaction of pupils, equal size. NOSE: Clear with pink turbinates. THROAT: No erythema or exudates. NECK: No masses, no JVD. CHEST: No chest wall deformity. LUNGS: Equal air entry with no crackles, wheeze, rhonchi or dullness. Diminished. CVS: S1 and S2 normal with no audible murmur, regular rhythm. ABDOMEN: No hepatosplenomegaly, normal bowel sounds, no guarding or rigidity. SPINE: No scoliosis or deformity SKIN: No rashes CENTRAL NERVOUS SYSTEM: No focal deficits, tone is normal in all 4 extremities. EXTREMITIES: There is no peripheral edema. No clubbing, no cyanosis. Peripheral pulses are intact. - Labs CBC & Chem 7: 11/04/19 06:03 11/04/19 06:03 Labs: Abnormal Lab Results - Last 24 Hours (Table) 11/04/19 11/04/19 11/04/19 Range/Units 17:31 20:03 21:38 POC Glucose (mg/dL) 144 H 151 H 192 H (75-99) mg/dL 11/05/19 11/05/19 Range/Units 06:25 11:17 POC Glucose (mg/dL) 127 H 123 H (75-99) mg/dL Microbiology - Last 24 Hours (Table) 11/03/19 21:17 Blood Culture - Preliminary Blood No Growth after 24 hours Assessment and Plan Assessment: #1. Acute exacerbation of chronic obstructive pulmonary disease, chest x-ray showing no acute pulmonary process #2. Advanced COPD, with baseline FEV1 of 53% of predicted, consistent with stage III COPD, not oxygen dependent at baseline, maintained on a combination of Symbicort, Incruse, and albuterol #3. Chronic smoker, history of nicotine addiction, ongoing, carries 60+ years of smoking #4. Paroxysmal atrial fibrillation, on Eliquis #5. Benign prostatic hypertrophy #6. Bilateral cataract surgery, with lens implants #7. Chronic low back pain #8. Pulmonary nodules with negative PET scan #9. Hypertension Plan: The patient was seen and evaluated by Dr. Luh Carranza for discharge from the pulmonary standpoint Continue his home pulmonary medications including Ventolin, Symbicort and Incruse Complete a prednisone taper Again educated regarding the importance of complete smoking cessation Follow-up in the office in 1-2 weeks' time I, the cosigning physician, performed a history & physical examination of the patient. Lungs sounds are clear, diminished. Maintaining good O2 saturations in the 90s on room air. I discussed the assessment and plan of care with my nurse practitioner, Qi Saez. I attest to the above note as dictated by her.
--- NOTE | 2019-11-05 16:05 | P.DS ---
Providers Date of admission: 11/03/19 22:02 Expected date of discharge: 11/05/19 Attending physician: Jeremiah Ortega Consults: 11/03/19 22:02 Consult Physician Routine Consulting Provider: Flakita Arvizu Consult Reason/Comments: dyspnea Do you want consulting provider notified?: Yes Primary care physician: [facility] Course: Final Diagnoses: Acute COPD exacerbation, in a patient with advanced COPD Ongoing nicotine dependence Recurrent admissions Pulmonary nodules, negative PET scan, following with pulmonary OP Hypertension Paroxysmal atrial fibrillation BPH Hospital course:This is a 74-year-old gentleman with history of paroxysmal atrial fibrillation, COPD, pulmonary nodules, back surgery, ongoing nicotine dependence-at least a [id number] smoker and multiple other medical issues. presented to the ER with complaints of worsening dyspnea 2 days, nonproductive cough. Denies chest pain, palpitations. Denies fever or chills. No hemoptysis. Minimal nonproductive cough. Denies lightheadedness, dizziness or focal deficits. Denies nausea vomiting or diarrhea. Denies syncope. Chest x- ray reporting pulmonary interstitial infiltrates related to interstitial fibrosis, chest stable, no CHF. EKG reporting sinus tachycardia, HR in the low 100s. Afebrile, normal WBC. Hematology, coagulation, chemistry panels unremarkable with the exception of sodium 134. Respiratory rate in the 20s on admission, maintaining O2 sats in the 90s on room air, mild tachycardia. IV steroids, antibiotics initiated. Significant clinical improvement. Cleared by pulmonary for discharge. Patient is being discharged home in stable condition with guarded prognosis. The impression and plan of care has been dictated as directed. : I performed a history and examination of this patient, discussed the same with the dictator. I agree with the dictator's note ,documented as a scribe. Any additional findings or plans will be noted. Patient Condition at Discharge: Stable Plan - Discharge Summary Discharge Rx Participant: Yes New Discharge Prescriptions: New predniSONE 10 mg PO DIRECTED #30 tab Doxycycline [Vibramycin] 100 mg PO BID 9 Days #18 capsule Continue Tamsulosin HCl [Flomax] 0.4 mg PO BID Apixaban [Eliquis] 5 mg PO BID Metoprolol Tartrate [Lopressor] 50 mg PO BID Ipratropium-Albuterol Nebulize [Duoneb 0.5 mg-3 mg/3 ml Soln] 3 ml INHALATION RT-Q4H PRN PRN Reason: Shortness Of Breath Finasteride [Proscar] 5 mg PO DAILY Ergocalciferol [Vitamin D2 (DRISDOL)] 50,000 unit PO GROVES Umeclidinium [place] [Incruse Ellipta] 1 puff INHALATION RT-DAILY Calcium Carbonate [Calcium] 600 mg PO DAILY Acetaminophen [Tylenol] 650 mg PO Q6H PRN PRN Reason: PAIN/FEVER Albuterol Inhaler [Ventolin Hfa Inhaler] 2 puff INHALATION RT-Q6H PRN PRN Reason: Shortness Of Breath Albuterol Nebulized [Ventolin Nebulized] 2.5 mg INHALATION RT-Q4H Alendronate Sodium [Fosamax] 70 mg PO GROVES Varenicline [Chantix Starter Pack] 0.5 mg PO DAILY #1 pkg Budesonide-Formot 160-4.5 Mcg [Symbicort 160-4.5 Mcg Inhaler] 2 puff INHALATION RT-BID puff Psyllium Husk [Metamucil] 0.8 gm PO DAILY Discharge Medication List Tamsulosin HCl [Flomax] 0.4 mg PO BID 03/24/18 [History] Apixaban [Eliquis] 5 mg PO BID 09/14/18 [History] Metoprolol Tartrate [Lopressor] 50 mg PO BID 02/04/19 [History] Ergocalciferol [Vitamin D2 (DRISDOL)] 50,000 unit PO GROVES 05/05/19 [History] Finasteride [Proscar] 5 mg PO DAILY 05/05/19 [History] Ipratropium-Albuterol Nebulize [Duoneb 0.5 mg-3 mg/3 ml Soln] 3 ml INHALATION RT-Q4H PRN 05/05/19 [History] Umeclidinium [place] [Incruse Ellipta] 1 puff INHALATION RT-DAILY 06/01/19 [History] Acetaminophen [Tylenol] 650 mg PO Q6H PRN 06/06/19 [History] Calcium Carbonate [Calcium] 600 mg PO DAILY 06/06/19 [History] Albuterol Inhaler [Ventolin Hfa Inhaler] 2 puff INHALATION RT-Q6H PRN 08/21/19 [History] Albuterol Nebulized [Ventolin Nebulized] 2.5 mg INHALATION RT-Q4H 08/21/19 [History] Alendronate Sodium [Fosamax] 70 mg PO GROVES 08/21/19 [History] Budesonide-Formot 160-4.5 Mcg [Symbicort 160-4.5 Mcg Inhaler] 2 puff INHALATION RT-BID puff 10/08/19 [Rx] Varenicline [Chantix Starter Pack] 0.5 mg PO DAILY #1 pkg 10/08/19 [Rx] Psyllium Husk [Metamucil] 0.8 gm PO DAILY 10/28/19 [History] Doxycycline [Vibramycin] 100 mg PO BID 9 Days #18 capsule 11/05/19 [Rx] predniSONE 10 mg PO DIRECTED #30 tab 11/05/19 [Rx] Follow up Appointment(s)/Referral(s): Flakita Arvizu MD [STAFF PHYSICIAN] - 11/30/19 1:00 pm Fernando Lambert Jr, DO [Primary Care Provider] - 11/10/19 2:00 pm Patient Instructions/Handouts: COPD (Chronic Obstructive Pulmonary Disease) (DC) Activity/Diet/Wound Care/Special Instructions: no smoking Discharge Disposition: HOME SELF-CARE
[2019-11-08] MEDS ORDERED: ERGOCALCIFEROL 50,000 UNIT CAP PO SCH (09:00)
[2019-11-08] MEDS ORDERED: NON FORMULARY DRUG (Alendronate Sodium [Fosamax] 70 MG) PO SCH (23:40)
== END 2019-11-05 11:44 | disposition home or self-care (01) ==
LOC: EC 20:11 → 3NCARDOBS 22:02
PROVIDERS: ADMIT Family Medicine; ATTEND Family Medicine
DX: J44.1 Chronic obstructive pulmonary disease with (acute) exacerbation (principal); R00.0 Tachycardia, unspecified; R91.8 Other nonspecific abnormal finding of lung field; F17.210 Nicotine dependence, cigarettes, uncomplicated; I10 Essential (primary) hypertension; I48.0 Paroxysmal atrial fibrillation; N40.0 Benign prostatic hyperplasia without lower urinary tract symptoms; M79.89 Other specified soft tissue disorders; G89.29 Other chronic pain; M54.5 Low back pain; M51.9 Unspecified thoracic, thoracolumbar and lumbosacral intervertebral disc disorder; Z87.09 Personal history of other diseases of the respiratory system; Z79.899 Other long term (current) drug therapy; Z79.01 Long term (current) use of anticoagulants; Z79.51 Long term (current) use of inhaled steroids; Z91.041 Radiographic dye allergy status; Z91.040 Latex allergy status; Z87.01 Personal history of pneumonia (recurrent); Z87.19 Personal history of other diseases of the digestive system; Z98.41 Cataract extraction status, right eye; Z98.42 Cataract extraction status, left eye; Z96.1 Presence of intraocular lens; Z98.890 Other specified postprocedural states; Z82.49 Family history of ischemic heart disease and other diseases of the circulatory system; Z81.8 Family history of other mental and behavioral disorders
CPT/HCPCS: 96376 ×2; 96374; 99285; 36415; 94640 ×4; 94760 ×2; 93005; 80053 ×2; 83605; 83735; 85025 ×2; 85610; 85730; 87040; 71046; G0378 ×3; S0138 ×2; J2930 ×3

== ENCOUNTER 2019-11-23 19:36 | Emergency (ER) | payer MEDICARE ==
[2019-11-23 19:50] VITALS: TEMP 98.5
[2019-11-23] MEDS ORDERED: IPRATROPIUM-ALBUTEROL 3 ML NEB INHALATION STA (20:08)
[2019-11-23] MEDS ORDERED: methylPREDNISolone SOD SUCCI 125 MG/2 ML VIAL IV STA (20:18)
--- NOTE | 2019-11-23 20:18 | ED ---
SOB HPI - General Chief Complaint: Shortness of Breath Stated Complaint: SOB Time Seen by Provider: 11/23/19 19:57 Source: patient, RN notes reviewed Mode of arrival: wheelchair Limitations: no limitations - History of Present Illness Initial Comments: This is a 74-year-old male with a history of CVA who states she's had shortness of breath, however the past 2 days he has a cough with minimal phlegm production he denies any chest pain overt fevers chills or sweats. He states she's been using his inhalers more home without any relief. No other complaints or modifying factors at this time MD Complaint: shortness of breath, cough - Related Data Home Medications Medication Instructions Recorded Confirmed Tamsulosin HCl [Flomax] 0.4 mg PO BID 03/24/18 11/03/19 Apixaban [Eliquis] 5 mg PO BID 09/14/18 11/03/19 Metoprolol Tartrate [Lopressor] 50 mg PO BID 02/04/19 11/03/19 Ergocalciferol [Vitamin D2 50,000 unit PO GROVES 05/05/19 11/03/19 (DRISDOL)] Finasteride [Proscar] 5 mg PO DAILY 05/05/19 11/03/19 Ipratropium-Albuterol Nebulize 3 ml INHALATION RT-Q4H PRN 05/05/19 11/03/19 [Duoneb 0.5 mg-3 mg/3 ml Soln] Umeclidinium [place] [Incruse 1 puff INHALATION RT-DAILY 06/01/19 11/03/19 Ellipta] Acetaminophen [Tylenol] 650 mg PO Q6H PRN 06/06/19 11/03/19 Calcium Carbonate [Calcium] 600 mg PO DAILY 06/06/19 11/03/19 Albuterol Inhaler [Ventolin Hfa 2 puff INHALATION RT-Q6H PRN 08/21/19 11/03/19 Inhaler] Albuterol Nebulized [Ventolin 2.5 mg INHALATION RT-Q4H 08/21/19 11/03/19 Nebulized] Alendronate Sodium [Fosamax] 70 mg PO GROVES 08/21/19 11/03/19 Psyllium Husk [Metamucil] 0.8 gm PO DAILY 10/28/19 11/03/19 Previous Rx's Medication Instructions Recorded Budesonide-Formot 160-4.5 Mcg 2 puff INHALATION RT-BID puff 10/08/19 [Symbicort 160-4.5 Mcg Inhaler] Varenicline [Chantix Starter Pack] 0.5 mg PO DAILY #1 pkg 10/08/19 Doxycycline [Vibramycin] 100 mg PO BID 9 Days #18 capsule 11/05/19 predniSONE 10 mg PO DIRECTED #30 tab 11/05/19 predniSONE [Deltasone] 20 mg PO BID #10 tab 11/23/19 Allergies Allergy/AdvReac Type Severity Reaction Status Date / Time Iodinated Contrast Media Allergy Rash/Hives Verified 11/23/19 19:50 [Iodinated Contrast- Oral and IV Dye] latex Allergy Rash/Hives Verified 11/23/19 19:50 Review of Systems ROS Statement: Those systems with pertinent positive or pertinent negative responses have been documented in the HPI. ROS Other: All systems not noted in ROS Statement are negative. Past Medical History Past Medical History: Atrial Fibrillation, COPD, Pneumonia, Prostate Disorder Additional Past Medical History / Comment(s): Paroxysmal Afib, bronchitis, pulmonary nodules/negative pet scan, BPH, constipation, vertigo, chronic low back pain/DDD. History of Any Multi-Drug Resistant Organisms: None Reported Past Surgical History: Back Surgery Additional Past Surgical History / Comment(s): Bilateral cataract removals-lens implants, colonoscopy, multiple kyphoplasties. Past Anesthesia/Blood Transfusion Reactions: No Reported Reaction Additional Past Anesthesia/Blood Transfusion Reaction / Comment(s): Has never received any blood transfusions. Past Psychological History: No Psychological Hx Reported Smoking Status: Current every day smoker Past Alcohol Use History: None Reported Past Drug Use History: None Reported - Past Family History Mother Family Medical History: AFIB, Dementia Father Family Medical History: Myocardial Infarction ([place]) Additional Family Medical History / Comment(s): in his 70's [place] General Exam - General Exam Comments Initial Comments: This is a well-developed well-nourished awake alert oriented 3 male Limitations: no limitations General appearance: alert, anxious Head exam: Present: atraumatic, normocephalic, normal inspection Eye exam: Present: normal appearance, PERRL, EOMI. Absent: scleral icterus, conjunctival injection, periorbital swelling ENT exam: Present: mucous membranes dry Neck exam: Present: normal inspection, full ROM, other (No stridor JVD or bruits). Absent: tenderness, meningismus, lymphadenopathy Respiratory exam: Present: wheezes (Diffuse wheezing), accessory muscle use, decreased breath sounds, prolonged expiratory. Absent: respiratory distress, rales, rhonchi, stridor Cardiovascular Exam: Present: regular rate, normal rhythm, normal heart sounds. Absent: systolic murmur, diastolic murmur, rubs, gallop, clicks GI/Abdominal exam: Present: soft, normal bowel sounds. Absent: distended, tenderness, guarding, rebound, rigid Extremities exam: Present: normal inspection, full ROM, normal capillary refill. Absent: tenderness, pedal edema, joint swelling, calf tenderness Back exam: Present: normal inspection Neurological exam: Present: alert, oriented X3, CN II-XII intact Psychiatric exam: Present: normal affect, normal mood Skin exam: Present: warm, dry, intact, normal color. Absent: rash Course Vital Signs 11/23/19 11/23/19 11/23/19 19:47 20:35 20:38 Temperature 98.5 F Pulse Rate 91 87 86 Respiratory 22 14 Rate Blood Pressure 110/73 105/68 O2 Sat by Pulse 96 93 L Oximetry 11/23/19 11/23/19 20:51 21:49 Temperature Pulse Rate 82 92 Respiratory 16 Rate Blood Pressure 110/72 O2 Sat by Pulse 92 L Oximetry - Reevaluation(s) Reevaluation #1: 11/23/19 22:27 Reevaluation patient reveals he feels much improved and back to his normal state. Medical Decision Making - Medical Decision Making The patient is feeling much improved he feels back to normal he was able ably without difficulty in the emergency department. His room air pulse ox is 94%. We did have a long discussion regarding options including options for admission versus discharge. He does not want stay in hospital tonight he will follow-up tomorrow morning with his appointment with Dr. Sanders. He does have his medications at home he will be discharged with a steroid prescription. - Lab Data Result diagrams: 11/23/19 20:31 11/23/19 20:31 Lab Results 11/23/19 11/23/19 11/23/19 Range/Units 20:31 20:31 20:31 WBC 7.1 (3.8-10.6) k/uL RBC 4.40 (4.30-5.90) m/uL Hgb 14.0 (13.0-17.5) gm/dL Hct 42.0 (39.0-53.0) % MCV 95.4 (80.0-100.0) fL MCH 31.9 (25.0-35.0) pg MCHC 33.4 (31.0-37.0) g/dL RDW 12.6 (11.5-15.5) % Plt Count 227 (150-450) k/uL Neutrophils % 61 % Lymphocytes % 20 % Monocytes % 9 % Eosinophils % 6 % Basophils % 1 % Neutrophils # 4.4 (1.3-7.7) k/uL Lymphocytes # 1.5 (1.0-4.8) k/uL Monocytes # 0.6 (0-1.0) k/uL Eosinophils # 0.4 (0-0.7) k/uL Basophils # 0.1 (0-0.2) k/uL PT 9.7 (9.0-12.0) sec INR 0.9 (<1.2) APTT 25.0 (22.0-30.0) sec Sodium 132 L (137-145) mmol/L Potassium 4.1 (3.5-5.1) mmol/L Chloride 102 (98-107) mmol/L Carbon Dioxide 25 (22-30) mmol/L Anion Gap 5 mmol/L BUN 16 (9-20) mg/dL Creatinine 0.96 (0.66-1.25) mg/dL Est GFR (CKD-EPI)AfAm >90 (>60 ml/min/1.73 sqM) Est GFR (CKD-EPI)NonAf 78 (>60 ml/min/1.73 sqM) Glucose 105 H (74-99) mg/dL Plasma Lactic Acid [place] (0.7-2.0) mmol/L Calcium 9.3 (8.4-10.2) mg/dL Magnesium 2.0 (1.6-2.3) mg/dL Total Bilirubin 0.4 (0.2-1.3) mg/dL AST 20 (17-59) U/L ALT 14 (4-49) U/L Alkaline Phosphatase 95 (38-126) U/L Creatine Kinase 37 L (55-170) U/L Troponin I (0.000-0.034) ng/mL NT-Pro-B Natriuret Pep pg/mL Total Protein 6.2 L (6.3-8.2) g/dL Albumin 3.8 (3.5-5.0) g/dL 11/23/19 11/23/19 11/23/19 Range/Units 20:31 20:31 20:31 WBC (3.8-10.6) k/uL RBC (4.30-5.90) m/uL Hgb (13.0-17.5) gm/dL Hct (39.0-53.0) % MCV (80.0-100.0) fL MCH (25.0-35.0) pg MCHC (31.0-37.0) g/dL RDW (11.5-15.5) % Plt Count (150-450) k/uL Neutrophils % % Lymphocytes % % Monocytes % % Eosinophils % % Basophils % % Neutrophils # (1.3-7.7) k/uL Lymphocytes # (1.0-4.8) k/uL Monocytes # (0-1.0) k/uL Eosinophils # (0-0.7) k/uL Basophils # (0-0.2) k/uL PT (9.0-12.0) sec INR (<1.2) APTT (22.0-30.0) sec Sodium (137-145) mmol/L Potassium (3.5-5.1) mmol/L Chloride (98-107) mmol/L Carbon Dioxide (22-30) mmol/L Anion Gap mmol/L BUN (9-20) mg/dL Creatinine (0.66-1.25) mg/dL Est GFR (CKD-EPI)AfAm (>60 ml/min/1.73 sqM) Est GFR (CKD-EPI)NonAf (>60 ml/min/1.73 sqM) Glucose (74-99) mg/dL Plasma Lactic Acid [place] 1.0 (0.7-2.0) mmol/L Calcium (8.4-10.2) mg/dL Magnesium (1.6-2.3) mg/dL Total Bilirubin (0.2-1.3) mg/dL AST (17-59) U/L ALT (4-49) U/L Alkaline Phosphatase (38-126) U/L Creatine Kinase (55-170) U/L Troponin I <0.012 (0.000-0.034) ng/mL NT-Pro-B Natriuret Pep 41 pg/mL Total Protein (6.3-8.2) g/dL Albumin (3.5-5.0) g/dL - EKG Data -: EKG Interpreted by Me EKG shows normal: sinus rhythm EKG Comments: EKG reveals sinus rhythm of 89. Interval 142 QRS 72 QT since QTC 364/[address]-T wave changes some artifact is present - Radiology Data Radiology results: report reviewed (I did review the imaging and report no acute findings are noted.), image reviewed Disposition Clinical Impression: COPD with acute exacerbation Disposition: HOME SELF-CARE Condition: Good Instructions (If sedation given, give patient instructions): COPD (Chronic Obstructive Pulmonary Disease) (ED) Prescriptions: predniSONE [Deltasone] 20 mg PO BID #10 tab Is patient prescribed a controlled substance at d/c from ED?: No Referrals: Fernando Lambert Jr, [Primary Care Provider] - 1-2 days
[2019-11-23 20:47] LABS: Basophils # (A) 0.1 k/uL (0-0.2); Basophils % (A) 1 %; Eosinophils # (A) 0.4 k/uL (0-0.7); Eosinophils % (A) 6 %; Lymphocytes # (A) 1.5 k/uL (1.0-4.8); Lymphocytes % (A) 20 %; MCH 31.9 pg (25.0-35.0); MCHC 33.4 g/dL (31.0-37.0); MCV 95.4 fL (80.0-100.0); Mean Platelet Volume 7.4; Monocytes # (A) 0.6 k/uL (0-1.0); Monocytes % (A) 9 %; Neutrophils # (A) 4.4 k/uL (1.3-7.7); Neutrophils % (A) 61 %; Platelet Count 227 k/uL (150-450); RDW 12.6 % (11.5-15.5); WBC 7.1 k/uL (3.8-10.6)
[2019-11-23 20:53] LABS: ALT 14 U/L (4-49); AST 20 U/L (17-59); African American GFR (CKD) >90 (>60 ml/min/1.73 sqM); Albumin 3.8 g/dL (3.5-5.0); Alkaline Phosphatase 95 U/L (38-126); Anion Gap 5 mmol/L; Blood Urea Nitrogen 16 mg/dL (9-20); Calcium 9.3 mg/dL (8.4-10.2); Carbon Dioxide 25 mmol/L (22-30); Chloride 102 mmol/L (98-107); Creatine Kinase 37 U/L (55-170); Glucose 105 mg/dL (74-99); Non-African American GFR(CKD) 78 (>60 ml/min/1.73 sqM); Potassium 4.1 mmol/L (3.5-5.1); Sodium 132 mmol/L (137-145); Total Bilirubin 0.4 mg/dL (0.2-1.3); Total Protein 6.2 g/dL (6.3-8.2)
[2019-11-23 20:58] LABS: INR 0.9 (<1.2); Prothrombin Time 9.7 sec (9.0-12.0)
--- NOTE | 2019-11-23 21:46 | XR ---
EXAMINATION TYPE: XR chest 2V DATE OF EXAM: 11/23/2019 COMPARISON: 11/03/2019 HISTORY: Difficulty breathing TECHNIQUE: FINDINGS: There is no heart failure nor confluent pneumonic infiltrate. There is slight coarsening of interstitial markings. There is multilevel thoracic and lumbar vertebroplasty. There is osteopenia. IMPRESSION: Pulmonary fibrotic changes. No acute lung disease. No change compared to old exam.
[2019-11-23 22:41] VITALS: BP 100/61; PULSE 84; RESP 18
== END 2019-11-23 22:49 | disposition home or self-care (01) ==
LOC: EC 19:36
DX: J44.1 Chronic obstructive pulmonary disease with (acute) exacerbation (principal); F17.200 Nicotine dependence, unspecified, uncomplicated; J44.9 Chronic obstructive pulmonary disease, unspecified; I48.0 Paroxysmal atrial fibrillation; N40.0 Benign prostatic hyperplasia without lower urinary tract symptoms; G89.29 Other chronic pain; M54.5 Low back pain; Z79.51 Long term (current) use of inhaled steroids; Z79.01 Long term (current) use of anticoagulants; Z79.899 Other long term (current) drug therapy; Z91.041 Radiographic dye allergy status; Z91.040 Latex allergy status; Z98.890 Other specified postprocedural states
CPT/HCPCS: 36415; 94640; 93005; 83880; 80053; 82550; 83605; 83735; 84484; 85025; 85610; 85730; 71046; 99285; 96374; J2930

== ENCOUNTER 2019-12-05 20:41 | Emergency (ER) | payer MEDICARE ==
[2019-12-05 20:48] VITALS: RESP 18; TEMP 97.5
--- NOTE | 2019-12-05 21:46 | ED ---
General Adult HPI - General Chief complaint: Shortness of Breath Stated complaint: KEERTHI Time Seen by Provider: 12/05/19 21:06 Source: patient Mode of arrival: wheelchair Limitations: no limitations - History of Present Illness Initial comments: Patient presents the ED with his son for evaluation. Patient states that he has been dyspneic for the past 3-4 days or so. Patient states that he has COPD, and he has been using his home nebulizer machine with only temporary relief. Patient also admits to having rhinorrhea recently. Patient denies known sick contact or exposure. Patient denies having any pain, fever or chills, headache, focal neuro deficit, sore throat, chest pain or pressure, cough, palpitations, dizziness, nausea/vomiting/diarrhea, abdominal pain, urinary symptoms or decreased urine output, leg or calf swelling or pain, or any other symptoms or complaints. - Related Data Home Medications Medication Instructions Recorded Confirmed Tamsulosin HCl [Flomax] 0.4 mg PO BID 03/24/18 11/03/19 Apixaban [Eliquis] 5 mg PO BID 09/14/18 11/03/19 Metoprolol Tartrate [Lopressor] 50 mg PO BID 02/04/19 11/03/19 Ergocalciferol [Vitamin D2 50,000 unit PO GROVES 05/05/19 11/03/19 (DRISDOL)] Finasteride [Proscar] 5 mg PO DAILY 05/05/19 11/03/19 Ipratropium-Albuterol Nebulize 3 ml INHALATION RT-Q4H PRN 05/05/19 11/03/19 [Duoneb 0.5 mg-3 mg/3 ml Soln] Umeclidinium [place] [Incruse 1 puff INHALATION RT-DAILY 06/01/19 11/03/19 Ellipta] Acetaminophen [Tylenol] 650 mg PO Q6H PRN 06/06/19 11/03/19 Calcium Carbonate [Calcium] 600 mg PO DAILY 06/06/19 11/03/19 Albuterol Inhaler [Ventolin Hfa 2 puff INHALATION RT-Q6H PRN 08/21/19 11/03/19 Inhaler] Albuterol Nebulized [Ventolin 2.5 mg INHALATION RT-Q4H 08/21/19 11/03/19 Nebulized] Alendronate Sodium [Fosamax] 70 mg PO GROVES 08/21/19 11/03/19 Psyllium [place] [Metamucil] 0.8 gm PO DAILY 10/28/19 11/03/19 Previous Rx's Medication Instructions Recorded Budesonide-Formot 160-4.5 Mcg 2 puff INHALATION RT-BID puff 10/08/19 [Symbicort 160-4.5 Mcg Inhaler] Varenicline [Chantix Starter Pack] 0.5 mg PO DAILY #1 pkg 10/08/19 Doxycycline [Vibramycin] 100 mg PO BID 9 Days #18 capsule 11/05/19 predniSONE 10 mg PO DIRECTED #30 tab 11/05/19 predniSONE [Deltasone] 20 mg PO BID #10 tab 11/23/19 Doxycycline Hyclate 100 mg PO Q12H 7 Days #14 tab 12/05/19 predniSONE [Deltasone] 20 mg PO BID #10 tab 12/05/19 Allergies Allergy/AdvReac Type Severity Reaction Status Date / Time Iodinated Contrast Media Allergy Rash/Hives Verified 12/05/19 20:48 [Iodinated Contrast- Oral and IV Dye] latex Allergy Rash/Hives Verified 12/05/19 20:48 Review of Systems ROS Statement: Those systems with pertinent positive or pertinent negative responses have been documented in the HPI. ROS Other: All systems not noted in ROS Statement are negative. Past Medical History Past Medical History: Atrial Fibrillation, COPD, Pneumonia, Prostate Disorder Additional Past Medical History / Comment(s): Paroxysmal Afib, bronchitis, pulmonary nodules/negative pet scan, BPH, constipation, vertigo, chronic low back pain/DDD. History of Any Multi-Drug Resistant Organisms: None Reported Past Surgical History: Back Surgery Additional Past Surgical History / Comment(s): Bilateral cataract removals-lens implants, colonoscopy, multiple kyphoplasties. Past Anesthesia/Blood Transfusion Reactions: No Reported Reaction Additional Past Anesthesia/Blood Transfusion Reaction / Comment(s): Has never received any blood transfusions. Past Psychological History: No Psychological Hx Reported Smoking Status: Current every day smoker Past Alcohol Use History: None Reported Past Drug Use History: None Reported - Past Family History Mother Family Medical History: AFIB, Dementia Father Family Medical History: Myocardial Infarction ([place]) Additional Family Medical History / Comment(s): in his 70's [place] General Exam Limitations: no limitations General appearance: alert, in no apparent distress Head exam: Present: atraumatic, normocephalic Eye exam: Present: normal appearance, EOMI ENT exam: Present: normal oropharynx, mucous membranes moist Neck exam: Present: other (Trachea is in midline) Respiratory exam: Present: normal lung sounds bilaterally, other (Moderate bilateral expiratory wheezes). Absent: respiratory distress, rales, rhonchi, stridor Cardiovascular Exam: Present: regular rate, normal rhythm, normal heart sounds, other (Normal radial pulses bilaterally) GI/Abdominal exam: Present: soft. Absent: distended, tenderness, guarding Extremities exam: Present: other (Negative Homans sign bilaterally). Absent: tenderness, pedal edema, calf tenderness Neurological exam: Present: alert, oriented X3. Absent: motor sensory deficit Psychiatric exam: Present: normal affect, normal mood Skin exam: Present: warm, dry, intact, normal color Course Vital Signs 12/05/19 12/05/19 12/05/19 20:46 20:58 21:00 Temperature 97.5 F L Pulse Rate 95 Respiratory 18 Rate Blood Pressure 130/76 133/75 O2 Sat by Pulse 96 98 98 Oximetry 12/05/19 12/05/19 12/05/19 21:04 22:44 22:55 Temperature Pulse Rate 80 77 Respiratory Rate Blood Pressure O2 Sat by Pulse 98 Oximetry - Reevaluation(s) Reevaluation #1: 12/05/19 23:24 Patient is that his dyspnea has improved with the DuoNeb treatment that he was given in the ED. Patient continues to be breathing comfortably. Patient's wheezing has improved on examination. Patient and son are aware of the patient's test results, and patient feels comfortable going home with his son at this time. Patient was counseled about COPD, and he was clearly explained return and follow-up instructions. Patient was instructed to follow up closely with his primary care provider. Patient was also instructed to continue with his home albuterol neb treatments as needed/as prescribed. EKG Findings - EKG Comments: EKG Findings:: Normal sinus rhythm, no ectopy, ventricular rate of 85 bpm, normal TN and QRS intervals, normal QT interval, normal axis, no ST or T-wave abnormality Medical Decision Making - Medical Decision Making I suspect that the patient's dyspnea is likely secondary to COPD exacerbation. Will treat the patient with a course of prednisone and doxycycline. Patient is afebrile and without leukocytosis. Patient's labs and chest x-ray are fairly unremarkable. Patient's Covid test is still pending at this time. Will discharge patient home with his son at this time. - Lab Data Result diagrams: 12/05/19 22:15 12/05/19 22:15 Lab Results 12/05/19 12/05/19 12/05/19 Range/Units 22:15 22:15 22:15 WBC 8.1 (3.8-10.6) k/uL RBC 4.44 (4.30-5.90) m/uL Hgb 14.2 (13.0-17.5) gm/dL Hct 42.8 (39.0-53.0) % MCV 96.4 (80.0-100.0) fL MCH 32.0 (25.0-35.0) pg MCHC 33.2 (31.0-37.0) g/dL RDW 13.0 (11.5-15.5) % Plt Count 222 (150-450) k/uL Neutrophils % 67 % Lymphocytes % 18 % Monocytes % 8 % Eosinophils % 3 % Basophils % 1 % Neutrophils # 5.4 (1.3-7.7) k/uL Lymphocytes # 1.4 (1.0-4.8) k/uL Monocytes # 0.7 (0-1.0) k/uL Eosinophils # 0.3 (0-0.7) k/uL Basophils # 0.1 (0-0.2) k/uL PT 9.7 (9.0-12.0) sec INR 0.9 (<1.2) APTT 25.4 (22.0-30.0) sec Sodium 132 L (137-145) mmol/L Potassium 4.4 (3.5-5.1) mmol/L Chloride 101 (98-107) mmol/L Carbon Dioxide 27 (22-30) mmol/L Anion Gap 4 mmol/L BUN 17 (9-20) mg/dL Creatinine 0.88 (0.66-1.25) mg/dL Est GFR (CKD-EPI)AfAm >90 (>60 ml/min/1.73 sqM) Est GFR (CKD-EPI)NonAf 85 (>60 ml/min/1.73 sqM) Glucose 110 H (74-99) mg/dL Calcium 9.4 (8.4-10.2) mg/dL Total Bilirubin 0.3 (0.2-1.3) mg/dL AST 18 (17-59) U/L ALT 15 (4-49) U/L Alkaline Phosphatase 96 (38-126) U/L Troponin I (0.000-0.034) ng/mL NT-Pro-B Natriuret Pep pg/mL Total Protein 6.1 L (6.3-8.2) g/dL Albumin 3.7 (3.5-5.0) g/dL 12/05/19 12/05/19 Range/Units 22:15 22:15 WBC (3.8-10.6) k/uL RBC (4.30-5.90) m/uL Hgb (13.0-17.5) gm/dL Hct (39.0-53.0) % MCV (80.0-100.0) fL MCH (25.0-35.0) pg MCHC (31.0-37.0) g/dL RDW (11.5-15.5) % Plt Count (150-450) k/uL Neutrophils % % Lymphocytes % % Monocytes % % Eosinophils % % Basophils % % Neutrophils # (1.3-7.7) k/uL Lymphocytes # (1.0-4.8) k/uL Monocytes # (0-1.0) k/uL Eosinophils # (0-0.7) k/uL Basophils # (0-0.2) k/uL PT (9.0-12.0) sec INR (<1.2) APTT (22.0-30.0) sec Sodium (137-145) mmol/L Potassium (3.5-5.1) mmol/L Chloride (98-107) mmol/L Carbon Dioxide (22-30) mmol/L Anion Gap mmol/L BUN (9-20) mg/dL Creatinine (0.66-1.25) mg/dL Est GFR (CKD-EPI)AfAm (>60 ml/min/1.73 sqM) Est GFR (CKD-EPI)NonAf (>60 ml/min/1.73 sqM) Glucose (74-99) mg/dL Calcium (8.4-10.2) mg/dL Total Bilirubin (0.2-1.3) mg/dL AST (17-59) U/L ALT (4-49) U/L Alkaline Phosphatase (38-126) U/L Troponin I <0.012 (0.000-0.034) ng/mL NT-Pro-B Natriuret Pep 36 pg/mL Total Protein (6.3-8.2) g/dL Albumin (3.5-5.0) g/dL - Radiology Data Radiology results: report reviewed (Chest x-ray: Coarse pulmonary interstitial density consistent with pulmonary interstitial fibrosis unchanged compared to recent exam, no heart failure) Disposition Clinical Impression: Dyspnea, COPD exacerbation Disposition: HOME SELF-CARE Condition: Stable Instructions (If sedation given, give patient instructions): COPD (Chronic Obstructive Pulmonary Disease) (ED), Dyspnea (ED) Additional Instructions: Return to the ER immediately should you develop increased shortness of breath, a fever, any significant pain, chest pain, vomiting, feeling dizzy or faint, or new or worsening symptoms. Follow up closely with your primary care provider. Prescriptions: predniSONE [Deltasone] 20 mg PO BID #10 tab Doxycycline Hyclate 100 mg PO Q12H 7 Days #14 tab Is patient prescribed a controlled substance at d/c from ED?: No Referrals: Fernando Lambert Jr, DO [Primary Care Provider] - 1-2 days Time of Disposition: 23:27
[2019-12-05] MEDS ORDERED: IPRATROPIUM-ALBUTEROL 3 ML NEB INHALATION STA (21:54)
[2019-12-05] MEDS ORDERED: predniSONE 20 MG TAB PO STA (21:54)
[2019-12-05 22:26] LABS: Basophils # (A) 0.1 k/uL (0-0.2); Basophils % (A) 1 %; Eosinophils # (A) 0.3 k/uL (0-0.7); Eosinophils % (A) 3 %; HCT 42.8 % (39.0-53.0); HGB 14.2 gm/dL (13.0-17.5); Lymphocytes # (A) 1.4 k/uL (1.0-4.8); Lymphocytes % (A) 18 %; MCHC 33.2 g/dL (31.0-37.0); MCV 96.4 fL (80.0-100.0); Mean Platelet Volume 7.3; Monocytes # (A) 0.7 k/uL (0-1.0); Monocytes % (A) 8 %; Neutrophils # (A) 5.4 k/uL (1.3-7.7); Neutrophils % (A) 67 %; Platelet Count 222 k/uL (150-450); RBC 4.44 m/uL (4.30-5.90); WBC 8.1 k/uL (3.8-10.6)
[2019-12-05 22:34] LABS: INR 0.9 (<1.2); Partial Thromboplastin Time 25.4 sec (22.0-30.0); Prothrombin Time 9.7 sec (9.0-12.0)
[2019-12-05 22:36] LABS: ALT 15 U/L (4-49); AST 18 U/L (17-59); African American GFR (CKD) >90 (>60 ml/min/1.73 sqM); Albumin 3.7 g/dL (3.5-5.0); Alkaline Phosphatase 96 U/L (38-126); Anion Gap 4 mmol/L; Blood Urea Nitrogen 17 mg/dL (9-20); Calcium 9.4 mg/dL (8.4-10.2); Carbon Dioxide 27 mmol/L (22-30); Chloride 101 mmol/L (98-107); Glucose 110 mg/dL (74-99); Non-African American GFR(CKD) 85 (>60 ml/min/1.73 sqM); Potassium 4.4 mmol/L (3.5-5.1); Sodium 132 mmol/L (137-145); Total Bilirubin 0.3 mg/dL (0.2-1.3); Total Protein 6.1 g/dL (6.3-8.2)
--- NOTE | 2019-12-05 22:36 | XR ---
EXAMINATION TYPE: XR chest 2V DATE OF EXAM: 12/05/2019 COMPARISON: 11/23/2019 HISTORY: Difficulty breathing TECHNIQUE: Single view FINDINGS: There is some coarse interstitial density in the lungs. Heart size is normal. There is old vertebroplasty in the thoracic and lumbar spine. There are no hilar masses. There are chest leads. IMPRESSION: Coarse pulmonary interstitial density consistent with pulmonary interstitial fibrosis unc hanged compared to recent exam. No heart failure.
[2019-12-05] MEDS ORDERED: DOXYCYCLINE 100 MG CAP PO STA (23:21)
[2019-12-05 23:39] VITALS: BP 135/88; PULSE 78
== END 2019-12-05 23:44 | disposition home or self-care (01) ==
LOC: EC 20:41
DX: J44.1 Chronic obstructive pulmonary disease with (acute) exacerbation (principal); N40.0 Benign prostatic hyperplasia without lower urinary tract symptoms; K59.00 Constipation, unspecified; G89.29 Other chronic pain; M54.5 Low back pain; F17.200 Nicotine dependence, unspecified, uncomplicated; Z79.899 Other long term (current) drug therapy; Z79.01 Long term (current) use of anticoagulants; Z79.83 Long term (current) use of bisphosphonates; Z91.041 Radiographic dye allergy status; Z91.040 Latex allergy status; Z20.828 Contact with and (suspected) exposure to other viral communicable diseases
CPT/HCPCS: 36415; 94640; 93005; 83880; 80053; 84484; 85025; 85610; 85730; 71046; 99285; U0003; J7512

== ENCOUNTER 2019-12-20 17:29 | Observation (INO) | payer MEDICARE ==
[2019-12-20] MEDS ORDERED: SODIUM CHLORIDE 0.9% 500 ML 500 ML IV STA (17:39)
[2019-12-20] MEDS ORDERED: SODIUM CHLORIDE 0.9% 1,000 ML IV STA (17:39)
[2019-12-20] MEDS ORDERED: IPRATROPIUM-ALBUTEROL 3 ML NEB INHALATION STA (17:39)
--- NOTE | 2019-12-20 17:40 | ED ---
SOB HPI - General Chief Complaint: Shortness of Breath Stated Complaint: SOB Time Seen by Provider: 12/20/19 17:38 Source: patient, RN notes reviewed, old records reviewed Mode of arrival: ambulatory Limitations: no limitations - History of Present Illness Initial Comments: This is a 74-year-old male DF for evaluation shortness breath known history of a sthma COPD. No recent fever, increased cough and congestion. No travel history sick - Related Data Home Medications Medication Instructions Recorded Confirmed Tamsulosin HCl [Flomax] 0.4 mg PO BID 03/24/18 11/03/19 Apixaban [Eliquis] 5 mg PO BID 09/14/18 11/03/19 Metoprolol Tartrate [Lopressor] 50 mg PO BID 02/04/19 11/03/19 Ergocalciferol [Vitamin D2 50,000 unit PO GROVES 05/05/19 11/03/19 (DRISDOL)] Finasteride [Proscar] 5 mg PO DAILY 05/05/19 11/03/19 Ipratropium-Albuterol Nebulize 3 ml INHALATION RT-Q4H PRN 05/05/19 11/03/19 [Duoneb 0.5 mg-3 mg/3 ml Soln] Umeclidinium [place] [Incruse 1 puff INHALATION RT-DAILY 06/01/19 11/03/19 Ellipta] Acetaminophen [Tylenol] 650 mg PO Q6H PRN 06/06/19 11/03/19 Calcium Carbonate [Calcium] 600 mg PO DAILY 06/06/19 11/03/19 Albuterol Inhaler [Ventolin Hfa 2 puff INHALATION RT-Q6H PRN 08/21/19 11/03/19 Inhaler] Albuterol Nebulized [Ventolin 2.5 mg INHALATION RT-Q4H 08/21/19 11/03/19 Nebulized] Alendronate Sodium [Fosamax] 70 mg PO GROVES 08/21/19 11/03/19 Psyllium Husk [Metamucil] 0.8 gm PO DAILY 10/28/19 11/03/19 Previous Rx's Medication Instructions Recorded Budesonide-Formot 160-4.5 Mcg 2 puff INHALATION RT-BID puff 10/08/19 [Symbicort 160-4.5 Mcg Inhaler] Varenicline [Chantix Starter Pack] 0.5 mg PO DAILY #1 pkg 10/08/19 Doxycycline [Vibramycin] 100 mg PO BID 9 Days #18 capsule 11/05/19 predniSONE 10 mg PO DIRECTED #30 tab 11/05/19 predniSONE [Deltasone] 20 mg PO BID #10 tab 11/23/19 Doxycycline Hyclate 100 mg PO Q12H 7 Days #14 tab 12/05/19 predniSONE [Deltasone] 20 mg PO BID #10 tab 12/05/19 Allergies Allergy/AdvReac Type Severity Reaction Status Date / Time Iodinated Contrast Media Allergy Rash/Hives Verified 12/20/19 17:33 [Iodinated Contrast- Oral and IV Dye] latex Allergy Rash/Hives Verified 12/20/19 17:33 Review of Systems ROS Statement: Those systems with pertinent positive or pertinent negative responses have been documented in the HPI. ROS Other: All systems not noted in ROS Statement are negative. Past Medical History Past Medical History: Atrial Fibrillation, COPD, Pneumonia, Prostate Disorder Additional Past Medical History / Comment(s): Paroxysmal Afib, bronchitis, pulmonary nodules/negative pet scan, BPH, constipation, vertigo, chronic low back pain/DDD. History of Any Multi-Drug Resistant Organisms: None Reported Past Surgical History: Back Surgery Additional Past Surgical History / Comment(s): Bilateral cataract removals-lens implants, colonoscopy, multiple kyphoplasties. Past Anesthesia/Blood Transfusion Reactions: No Reported Reaction Additional Past Anesthesia/Blood Transfusion Reaction / Comment(s): Has never received any blood transfusions. Past Psychological History: No Psychological Hx Reported Smoking Status: Current every day smoker Past Alcohol Use History: None Reported Past Drug Use History: None Reported - Past Family History Mother Family Medical History: AFIB, Dementia Father Family Medical History: Myocardial Infarction ([place]) Additional Family Medical History / Comment(s): in his 70's [place] General Exam Limitations: no limitations General appearance: alert, in no apparent distress Head exam: Present: atraumatic, normocephalic, normal inspection Eye exam: Present: normal appearance, PERRL, EOMI. Absent: scleral icterus, conjunctival injection, periorbital swelling ENT exam: Present: normal exam, mucous membranes moist Neck exam: Present: normal inspection. Absent: tenderness, meningismus, lymphadenopathy Respiratory exam: Present: normal lung sounds bilaterally, wheezes, accessory muscle use, decreased breath sounds, prolonged expiratory. Absent: respiratory distress, rales, rhonchi, stridor Cardiovascular Exam: Present: regular rate, normal rhythm, normal heart sounds. Absent: systolic murmur, diastolic murmur, rubs, gallop, clicks GI/Abdominal exam: Present: soft, normal bowel sounds. Absent: distended, tenderness, guarding, rebound, rigid Extremities exam: Present: normal inspection, full ROM, normal capillary refill. Absent: tenderness, pedal edema, joint swelling, calf tenderness Back exam: Present: normal inspection Neurological exam: Present: alert, oriented X3, CN II-XII intact Psychiatric exam: Present: normal affect, normal mood Skin exam: Present: warm, dry, intact, normal color. Absent: rash Course Vital Signs 12/20/19 12/20/19 12/20/19 17:30 17:57 18:16 Temperature 97 F L Pulse Rate 92 81 Respiratory 18 18 Rate Blood Pressure 116/71 O2 Sat by Pulse 98 Oximetry - Reevaluation(s) Reevaluation #1: 12/20/19 18:00 Medical records reviewed Reevaluation #2: 12/20/19 18:23 Patient with no real improvement here in the ER Reevaluation #3: 12/20/19 18:23 Spoke patient regarding findings, questions answered - Consultations Consultation #1: Spoke with Dr. Ortega who can admit this patient Medical Decision Making - Medical Decision Making 74 male DF for evaluation shortness of breath. COPD exacerbation patient will be admitted for further evaluation management - Lab Data Result diagrams: 12/20/19 17:45 12/20/19 17:45 Lab Results 12/20/19 12/20/19 12/20/19 Range/Units 17:45 17:45 17:45 WBC 9.8 (3.8-10.6) k/uL RBC 4.34 (4.30-5.90) m/uL Hgb 14.4 (13.0-17.5) gm/dL Hct 42.8 (39.0-53.0) % MCV 98.7 (80.0-100.0) fL MCH 33.2 (25.0-35.0) pg MCHC 33.7 (31.0-37.0) g/dL RDW 12.9 (11.5-15.5) % Plt Count 230 (150-450) k/uL Neutrophils % 66 % Lymphocytes % 17 % Monocytes % 9 % Eosinophils % 5 % Basophils % 1 % Neutrophils # 6.4 (1.3-7.7) k/uL Lymphocytes # 1.6 (1.0-4.8) k/uL Monocytes # 0.9 (0-1.0) k/uL Eosinophils # 0.5 (0-0.7) k/uL Basophils # 0.1 (0-0.2) k/uL PT 9.8 (9.0-12.0) sec INR 0.9 (<1.2) APTT 25.0 (22.0-30.0) sec Sodium 134 L (137-145) mmol/L Potassium 4.2 (3.5-5.1) mmol/L Chloride 106 (98-107) mmol/L Carbon Dioxide 24 (22-30) mmol/L Anion Gap 4 mmol/L BUN 20 (9-20) mg/dL Creatinine 0.94 (0.66-1.25) mg/dL Est GFR (CKD-EPI)AfAm >90 (>60 ml/min/1.73 sqM) Est GFR (CKD-EPI)NonAf 80 (>60 ml/min/1.73 sqM) Glucose 93 (74-99) mg/dL Calcium 9.1 (8.4-10.2) mg/dL Magnesium 2.1 (1.6-2.3) mg/dL Total Bilirubin 0.4 (0.2-1.3) mg/dL AST 19 (17-59) U/L ALT 17 (4-49) U/L Alkaline Phosphatase 92 (38-126) U/L Creatine Kinase 39 L (55-170) U/L Total Protein 6.2 L (6.3-8.2) g/dL Albumin 3.8 (3.5-5.0) g/dL - EKG Data -: EKG Interpreted by Me (EKG is sinus rhythm 92 IA 164 QRS 78 QTc 435) - Radiology Data Radiology results: report reviewed (Chest x-rays negative for acute disease), image reviewed Disposition Clinical Impression: COPD with acute exacerbation, COPD exacerbation, Smoker Disposition: ADMITTED IP TO THIS [facility] Condition: Good Is patient prescribed a controlled substance at d/c from ED?: No Referrals: Fernando Lambert Jr, DO [Primary Care Provider] - 1-2 days
--- NOTE | 2019-12-20 17:56 | XR ---
EXAMINATION TYPE: XR chest 2V DATE OF EXAM: 12/20/2019 COMPARISON: 12/05/2019 HISTORY: Short of breath TECHNIQUE: FINDINGS: There is coarse interstitial density in the lungs. Heart size is normal. There is multileve l thoracic and lumbar vertebroplasty. There is no pleural effusion. There are no hilar masses. IMPRESSION: Pulmonary interstitial fibrosis. No heart failure. No change.
[2019-12-20 18:04] LABS: Basophils # (A) 0.1 k/uL (0-0.2); Basophils % (A) 1 %; Eosinophils # (A) 0.5 k/uL (0-0.7); Eosinophils % (A) 5 %; HCT 42.8 % (39.0-53.0); HGB 14.4 gm/dL (13.0-17.5); Lymphocytes # (A) 1.6 k/uL (1.0-4.8); Lymphocytes % (A) 17 %; MCH 33.2 pg (25.0-35.0); MCHC 33.7 g/dL (31.0-37.0); MCV 98.7 fL (80.0-100.0); Mean Platelet Volume 7.6; Monocytes # (A) 0.9 k/uL (0-1.0); Monocytes % (A) 9 %; Neutrophils # (A) 6.4 k/uL (1.3-7.7); Neutrophils % (A) 66 %; Platelet Count 230 k/uL (150-450); RBC 4.34 m/uL (4.30-5.90); RDW 12.9 % (11.5-15.5); WBC 9.8 k/uL (3.8-10.6)
[2019-12-20 18:13] LABS: INR 0.9 (<1.2); Prothrombin Time 9.8 sec (9.0-12.0)
[2019-12-20] MEDS ORDERED: IPRATROPIUM-ALBUTEROL 3 ML NEB INHALATION PRN (18:18)
[2019-12-20] MEDS ORDERED: methylPREDNISolone SOD SUCCI 125 MG/2 ML VIAL IV STA (18:18)
[2019-12-20 18:19] LABS: ALT 17 U/L (4-49); AST 19 U/L (17-59); African American GFR (CKD) >90 (>60 ml/min/1.73 sqM); Albumin 3.8 g/dL (3.5-5.0); Alkaline Phosphatase 92 U/L (38-126); Anion Gap 4 mmol/L; Blood Urea Nitrogen 20 mg/dL (9-20); Calcium 9.1 mg/dL (8.4-10.2); Carbon Dioxide 24 mmol/L (22-30); Chloride 106 mmol/L (98-107); Creatine Kinase 39 U/L (55-170); Glucose 93 mg/dL (74-99); Magnesium 2.1 mg/dL (1.6-2.3); Non-African American GFR(CKD) 80 (>60 ml/min/1.73 sqM); Potassium 4.2 mmol/L (3.5-5.1); Sodium 134 mmol/L (137-145); Total Bilirubin 0.4 mg/dL (0.2-1.3); Total Protein 6.2 g/dL (6.3-8.2)
[2019-12-20] MEDS: SODIUM CHLORIDE 0.9% 1,000 ML IV SCH (18:55)
[2019-12-20] MEDS: ALBUTEROL NEBULIZED 2.5 MG/3 ML INHALATION SCH (19:50)
[2019-12-20] MEDS ORDERED: HYDROcodone/APAP 5-325MG 1 EACH TAB PO PRN (20:27)
[2019-12-20] MEDS ORDERED: ACETAMINOPHEN TAB 325 MG TAB PO PRN (20:27)
[2019-12-20] MEDS ORDERED: NON FORMULARY DRUG (Alendronate Sodium [Fosamax] 70 MG Tablet) PO SCH (20:30)
[2019-12-20] MEDS: METOPROLOL TARTRATE 50 MG TAB PO SCH (21:14)
[2019-12-20] MEDS: APIXABAN 5 MG TAB PO SCH (21:14)
[2019-12-20] MEDS: TAMSULOSIN 0.4 MG CAP.ER.24H PO SCH (21:14)
[2019-12-20] MEDS: methylPREDNISolone SOD SUCCI 125 MG/2 ML VIAL IV SCH (23:54)
[2019-12-21] MEDS ORDERED: methylPREDNISolone SOD SUCCI 125 MG/2 ML VIAL ONE (06:00)
[2019-12-21] MEDS: methylPREDNISolone SOD SUCCI 125 MG/2 ML VIAL IV SCH ×2 (07:06→12:13)
[2019-12-21] MEDS: SODIUM CHLORIDE 0.9% 1,000 ML IV SCH (07:18)
[2019-12-21] MEDS: ALBUTEROL NEBULIZED 2.5 MG/3 ML INHALATION SCH ×3 (07:30→15:43)
[2019-12-21] MEDS ORDERED: SYMBICORT 160-4.5 MCG INHALER INHALATION SCH (08:00)
[2019-12-21] MEDS: TAMSULOSIN 0.4 MG CAP.ER.24H PO SCH (08:32)
[2019-12-21] MEDS: APIXABAN 5 MG TAB PO SCH (08:32)
[2019-12-21] MEDS: METOPROLOL TARTRATE 50 MG TAB PO SCH (08:32)
[2019-12-21] MEDS ORDERED: FINASTERIDE 5 MG TAB PO SCH (09:00)
[2019-12-21] MEDS ORDERED: PSYLLIUM HUSK 100% 6 GM PACKET PO SCH (09:00)
[2019-12-21] MEDS ORDERED: DOXYCYCLINE 100 MG CAP PO SCH (09:00)
[2019-12-21] MEDS ORDERED: CALCIUM CARBONATE 500 MG CHEWABLE PO SCH (09:00)
[2019-12-21 09:21] VITALS: TEMP 97.6
--- NOTE | 2019-12-21 09:45 | CONS ---
CONSULTATION PULMONARY/CRITICAL CARE CONSULTATION: DATE OF SERVICE: 12/21/2019 This is a 74-year-old white male, well known to our service. He has a history of underlying COPD. He typically sees our nurse practitioner in the office. The patient has had multiple admissions to the hospital this year and last. Last year, he was admitted no less than 7 times to the hospital for COPD exacerbations and this year so far, this is the fifth admission to the hospital. Unfortunately, the patient continues to sabotage his health by continuing to smoke. He almost laughs about it. Anyway, the patient comes in with complaints of increasing shortness of breath, cough, chest congestion and wheezing. No fever. The patient was admitted to the observation unit for COPD exacerbation. I really think on this admission, when he gets discharged with a prednisone burst and taper, that when he gets down to 10 mg of prednisone he should stay on prednisone 10 mg a day indefinitely. I believe this would probably help to preclude some of these hospital admissions. Also, the patient is counseled strongly about the importance of smoking cessation, how, ongoing tobacco use continues to sabotage his overall health. Anyway, the patient is resting comfortably in the office unit. He does not use oxygen at home. Does not have oxygen here. He looks pretty comfortable. There is no audible wheezing, use of accessory muscles or conversational dyspnea. HOME MEDICATIONS: Include Flomax, Eliquis, Lopressor, vitamin D2, Proscar, DuoNeb, Tylenol, Tums, albuterol inhaler, Fosamax and Metamucil. Other medications include Symbicort, Chantix, doxycycline, and prednisone. ALLERGIES: IVP DYE and LATEX. MEDICAL HISTORY: COPD, pneumonia, BPH, atrial fibrillation, chronic bronchitis, pulmonary nodules with negative PET scan, BPH, constipation, vertigo, and chronic low back pain, as well as degenerative disk disease. SURGICAL HISTORY: Includes bilateral cataract surgery and colonoscopy, lens implants, kyphoplasty at least 2 levels and previous back surgery. SOCIAL HISTORY: Positive for ongoing tobacco use. He smokes at least half a pack a day or more daily basis. Denies alcohol use or illicit drug use. FAMILY HISTORY: Positive for mother with atrial fibrillation and dementia and a father with a history of myocardial infarction. REVIEW OF SYSTEMS: CONSTITUTIONAL: Negative. NEUROLOGIC: Negative. HEENT: Negative. CARDIOVASCULAR: Negative. PULMONARY: Shortness of breath, chest tightness, wheezing, cough, chest. congestion and phlegm production. GI: Negative. : Negative. RHEUMATOLOGIC: Negative. IMMUNOLOGIC: Negative. ENDOCRINOLOGIC: Negative. DERMATOLOGIC: Negative. Current vital signs are reviewed, temperature 98, heart rate 89, respiratory rate 16, blood pressure 117/66 mean 83, room air saturation 97%. Appears in no acute distress. No respiratory distress. Again, no audible wheezing, use of accessory muscles or conversational dyspnea. HEENT: Examination is grossly unremarkable. NECK: Supple, full range of motion. No adenopathy, thyromegaly or neck vein distention. CARDIOVASCULAR: Examination reveals regular rhythm and rate. Heart rate in the upper 80s. S1, S2 normal. No murmur. LUNGS: Mild diffuse coarse rhonchi and wheezes. Breath sounds are diminished throughout. No crackles. Actually, breath sounds are not too bad on this patient. ABDOMEN: Soft, bowel sounds are heard. EXTREMITIES: Intact. No edema. SKIN: Without rash. NEUROLOGIC: Examination is brief but nonfocal. CBC is normal. PT, INR are normal. PTT normal. Electrolytes are pretty much normal. Sodium a little bit low at 134. CK 39, and N terminal proBNP 44. CHEST X-RAY: In my opinion shows no acute disease. Medications are reviewed. His breathing medications include albuterol updrafts, Symbicort, doxycycline, DuoNeb and Solu-Medrol. ASSESSMENT: 1. Chronic obstructive pulmonary disease exacerbation in a patient with chronic COPD and chronic ongoing tobacco use with multiple admissions to the hospital including 7 admissions in 2019 and thus far 5 admissions in 2020. 2. Ongoing tobacco use with nicotine addiction, despite counseling. 3. History of atrial fibrillation. 4. Benign prostatic hypertrophy. 5. Chronic bronchitis. 6. Chronic back pain, status post kyphoplasty. 7. History of pneumonia. 8. Pulmonary nodule with negative PET scan. 9. Chronic constipation. 10.Vertigo. 11.Degenerative disc disease. PLAN: The patient's medications are reviewed. Everything is appropriate. The patient could be discharged home either today or tomorrow. When the patient is discharged, I do recommend that he follow up with our nurse practitioner in the office. In addition, during his prednisone burst and taper, Mr. Hinkle should stop at 10 mg and continue with 10 mg indefinitely. He should take it in the morning with food. He should continue his other medications as prescribed. No additional recommendations are made. Prognosis is guarded. Again, the patient is strongly counseled about the importance of smoking cessation. He seems to laugh about it. He also seems to laugh about the fact that he has had some many admissions to the hospital. This is an appropriate. Will continue to follow. CODYL / IJN: [id number] / ARNOLD
[2019-12-21 15:52] VITALS: PULSE 90
[2019-12-21 16:33] VITALS: BP 109/63; RESP 18
--- NOTE | 2019-12-21 16:42 | P.HPIM ---
History of Present Illness H&P Date: 12/21/19 Chief Complaint: Worsening shortness of breath, cough History and Physical and Discharge Summary Hospital course:This is a 74-year-old gentleman with history of paroxysmal atrial fibrillation, COPD, pulmonary nodules, back surgery, ongoing nicotine dependence-at least a [id number] smoker and multiple other medical issues. presented to the ER with complaints of worsening dyspnea, nonproductive cough. Denies chest pain, palpitations. Denies fever or chills. No hemoptysis. Minimal loose semi-productive cough, swallows secretions. Denies lightheadedness, dizziness or focal deficits. Denies nausea vomiting or diarrhea. Denies recent travel or exposure. Chest x-ray reporting pulmonary interstitial fibrosis, no heart failure, no change. EEG reported normal sinus rhythm. Afebrile, normal WBC. Review of Systems ROS Statement: Those systems with pertinent positive or pertinent negative responses have been documented in the HPI. ROS Other: All systems not noted in ROS Statement are negative. Past Medical History Past Medical History: Atrial Fibrillation, COPD, Pneumonia, Prostate Disorder Additional Past Medical History / Comment(s): Paroxysmal Afib, bronchitis, pulmonary nodules/negative pet scan, BPH, constipation, vertigo, chronic low back pain/DDD. History of Any Multi-Drug Resistant Organisms: None Reported Past Surgical History: Back Surgery Additional Past Surgical History / Comment(s): Bilateral cataract removals-lens implants, colonoscopy, multiple kyphoplasties. Past Anesthesia/Blood Transfusion Reactions: No Reported Reaction Additional Past Anesthesia/Blood Transfusion Reaction / Comment(s): Has never received any blood transfusions. Past Psychological History: No Psychological Hx Reported Smoking Status: Current every day smoker Past Alcohol Use History: None Reported Additional Past Alcohol Use History / Comment(s): Pt started smoking age [age]) got up to 5 ppd for many years then cut down to 3 ppd, currently smoking a ppd or alittle more if his back is hurting. Past Drug Use History: None Reported - Past Family History Mother Family Medical History: AFIB, Dementia Father Family Medical History: Myocardial Infarction ([place]) Additional Family Medical History / Comment(s): in his 70's [place] Medications and Allergies Home Medications Medication Instructions Recorded Confirmed Type Tamsulosin HCl [Flomax] 0.4 mg PO BID 03/24/18 12/20/19 History Apixaban [Eliquis] 5 mg PO BID 09/14/18 12/20/19 History Metoprolol Tartrate [Lopressor] 50 mg PO BID 02/04/19 12/20/19 History Ergocalciferol [Vitamin D2 50,000 unit PO TU 05/05/19 12/20/19 History (DRISDOL)] Finasteride [Proscar] 5 mg PO DAILY 05/05/19 12/20/19 History Umeclidinium [place] [Incruse 1 puff INHALATION RT-DAILY 06/01/19 12/20/19 History Ellipta] Acetaminophen [Tylenol] 650 mg PO Q6H PRN 06/06/19 12/20/19 History Calcium Carbonate [Calcium] 600 mg PO DAILY 06/06/19 12/20/19 History Albuterol Inhaler [Ventolin Hfa 2 puff INHALATION RT-Q6H PRN 08/21/19 12/20/19 History Inhaler] Alendronate Sodium [Fosamax] 70 mg PO GROVES 08/21/19 12/20/19 History Budesonide-Formot 160-4.5 Mcg 2 puff INHALATION RT-BID puff 10/08/19 12/20/19 Rx [Symbicort 160-4.5 Mcg Inhaler] Psyllium Husk [Metamucil] 0.8 gm PO DAILY 10/28/19 12/20/19 History HYDROcodone/APAP 5-325MG [[place] 1 tab PO Q6H PRN 12/20/19 12/20/19 History 5-325] Doxycycline [Vibramycin] 100 mg PO BID #10 cap 12/21/19 Rx Ipratropium-Albuterol Nebulize 3 ml INHALATION QID #0 12/21/19 12/20/19 Rx [Duoneb 0.5 mg-3 mg/3 ml Soln] predniSONE 10 mg PO DIRECTED #48 tab 12/21/19 Rx Allergies Allergy/AdvReac Type Severity Reaction Status Date / Time Iodinated Contrast Media Allergy Rash/Hives Verified 12/20/19 18:37 [Iodinated Contrast- Oral and IV Dye] latex Allergy Rash/Hives Verified 12/20/19 18:37 Physical Exam Vitals: Vital Signs Temp Pulse Pulse Resp BP BP Pulse Ox 12/21/19 11:28 96 12/21/19 11:18 92 12/21/19 09:00 97.6 F 94 22 129/64 95 12/21/19 07:19 16 98 12/21/19 05:52 94 12/21/19 05:40 94 12/21/19 02:50 98.0 F 89 19 117/66 97 12/21/19 02:40 89 19 12/21/19 00:57 91 12/21/19 00:42 91 12/20/19 19:30 98.0 F 85 16 125/67 97 12/20/19 19:15 85 16 12/20/19 18:48 80 16 114/63 100 12/20/19 18:27 83 12/20/19 18:16 81 12/20/19 17:57 18 12/20/19 17:30 97 F L 92 18 116/71 98 Intake and Output 12/20/19 12/21/19 12/21/19 22:59 06:59 14:59 Intake Total 960 400 Balance 960 400 Intake: Oral 960 400 Other: # Voids 1 1 2 Weight 72.575 kg GENERAL EXAM: Pleasant 74-year-old gentleman. Alert, active, comfortable in no apparent distress, sitting up at bedside HEAD: Normocephalic. EYES: Normal reaction of pupils, equal size. NOSE: Clear with pink turbinates. THROAT: No erythema or exudates. NECK: No masses, no JVD. CHEST: No chest wall deformity. LUNGS: Diminished air entry,diminished breath sounds with minimal scattered rhonchi, expiratory wheezes CVS: S1 and S2 normal with no audible murmur, regular rhythm. ABDOMEN: No hepatosplenomegaly, normal bowel sounds, no guarding or rigidity. SPINE: No scoliosis or deformity SKIN: No rashes CENTRAL NERVOUS SYSTEM: No focal deficits, tone is normal in all 4 extremities. EXTREMITIES: There is no peripheral edema. No clubbing, no cyanosis. Peripheral pulses are intact. Results CBC & Chem 7: 12/20/19 17:45 12/20/19 17:45 Labs: Abnormal Lab Results - Last 24 Hours (Table) 12/20/19 Range/Units 17:45 Sodium 134 L (137-145) mmol/L Creatine Kinase 39 L (55-170) U/L Total Protein 6.2 L (6.3-8.2) g/dL Thrombosis Risk Factor Assmnt - Choose All That Apply Each Factor Represents 1 point: Abnormal pulmonary function (COPD) Each Risk Factor Represents 2 Points: Age 61-74 years Other congenital or acquired thrombophilia - If yes, enter type in comment: No Thrombosis Risk Factor Assessment Total Risk Factor Score: 3 Thrombosis Risk Factor Assessment Level: Moderate Risk Assessment and Plan Assessment: Acute COPD exacerbation, in a patient with advanced COPD Ongoing nicotine dependence Recurrent admissions Pulmonary nodules, negative PET scan, following with pulmonary OP Hypertension Paroxysmal atrial fibrillation BPH Plan: Continue on current medication regime ,monitoring and symptomatic treatment. Aggressive pulmonary toileting, continue on nebulized bronchodilators, Pulmicort, IV steroids and antibiotics. Evaluated and cleared by pulmonary for discharge. Patient will be discharged home today in stable condition with guarded prognosis. pending coronavirus results. Smoking cessation reinforced. The impression and plan of care has been dictated as directed. : I performed a history and examination of this patient, discussed the same with the dictator. I agree with the dictator's note ,documented as a scribe. Any additional findings or plans will be noted.
[2019-12-22] MEDS ORDERED: ERGOCALCIFEROL 50,000 UNIT CAP PO SCH (09:00)
== END 2019-12-21 17:33 | disposition home or self-care (01) ==
LOC: EC 17:29 → 1SOBS 18:18
PROVIDERS: ADMIT Family Medicine; ATTEND Family Medicine
DX: J44.1 Chronic obstructive pulmonary disease with (acute) exacerbation (principal); F17.210 Nicotine dependence, cigarettes, uncomplicated; Z87.01 Personal history of pneumonia (recurrent); I48.0 Paroxysmal atrial fibrillation; N40.0 Benign prostatic hyperplasia without lower urinary tract symptoms; Z87.09 Personal history of other diseases of the respiratory system; K59.00 Constipation, unspecified; G89.29 Other chronic pain; M54.5 Low back pain; R91.8 Other nonspecific abnormal finding of lung field; I25.2 Old myocardial infarction; Z98.42 Cataract extraction status, left eye; Z98.41 Cataract extraction status, right eye; Z96.1 Presence of intraocular lens; Z98.890 Other specified postprocedural states; Z82.49 Family history of ischemic heart disease and other diseases of the circulatory system; Z81.8 Family history of other mental and behavioral disorders; Z79.01 Long term (current) use of anticoagulants; Z79.83 Long term (current) use of bisphosphonates; Z79.899 Other long term (current) drug therapy; Z79.51 Long term (current) use of inhaled steroids; Z79.52 Long term (current) use of systemic steroids; Z91.041 Radiographic dye allergy status; Z91.040 Latex allergy status
CPT/HCPCS: 96361 ×2; 96376 ×2; 96374; 99285; 36415; 94640 ×3; 93005; 83880; 80053; 82550; 83735; 84484; 85025; 85610; 85730; 71046; G0378 ×2; U0003; S0138; J2930 ×2

== ENCOUNTER 2020-01-12 10:41 | Emergency (ER) | payer MEDICARE ==
[2020-01-12 10:52] VITALS: TEMP 98.3
[2020-01-12] MEDS ORDERED: IPRATROPIUM-ALBUTEROL 3 ML NEB INHALATION STA (12:45)
[2020-01-12] MEDS ORDERED: ALBUTEROL NEBULIZED 2.5 MG/3 ML INHALATION STA (12:45)
[2020-01-12] MEDS ORDERED: DEXAMETHASONE SOD PHOSPHATE 10 MG/ML 1 ML VIAL IM STA (12:45)
--- NOTE | 2020-01-12 12:59 | ED ---
General Adult HPI - General Chief complaint: Shortness of Breath Stated complaint: KEERTHI Time Seen by Provider: 01/12/20 12:39 Source: patient, RN notes reviewed, old records reviewed Mode of arrival: wheelchair Limitations: no limitations - History of Present Illness Initial comments: 74-year-old male history of COPD presenting for evaluation of cough and dyspnea. Patient states he does have chronic cough which is productive of clear sputum. He denies fever. Denies chest pain. States he has been taking albuterol treatments at home but these of only been working for a short period of time. He is requesting a dose of steroids. He denies central chest pain, denies lower show any pain or swelling. Denies fever. - Related Data Home Medications Medication Instructions Recorded Confirmed Tamsulosin HCl [Flomax] 0.4 mg PO BID 03/24/18 12/20/19 Apixaban [Eliquis] 5 mg PO BID 09/14/18 12/20/19 Metoprolol Tartrate [Lopressor] 50 mg PO BID 02/04/19 12/20/19 Ergocalciferol [Vitamin D2 50,000 unit PO TU 05/05/19 12/20/19 (DRISDOL)] Finasteride [Proscar] 5 mg PO DAILY 05/05/19 12/20/19 Umeclidinium [place] [Incruse 1 puff INHALATION RT-DAILY 06/01/19 12/20/19 Ellipta] Acetaminophen [Tylenol] 650 mg PO Q6H PRN 06/06/19 12/20/19 Calcium Carbonate [Calcium] 600 mg PO DAILY 06/06/19 12/20/19 Albuterol Inhaler [Ventolin Hfa 2 puff INHALATION RT-Q6H PRN 08/21/19 12/20/19 Inhaler] Alendronate Sodium [Fosamax] 70 mg PO GROVES 08/21/19 12/20/19 Psyllium Husk [Metamucil] 0.8 gm PO DAILY 10/28/19 12/20/19 HYDROcodone/APAP 5-325MG [[place] 1 tab PO Q6H PRN 12/20/19 12/20/19 5-325] Previous Rx's Medication Instructions Recorded Budesonide-Formot 160-4.5 Mcg 2 puff INHALATION RT-BID puff 10/08/19 [Symbicort 160-4.5 Mcg Inhaler] Doxycycline [Vibramycin] 100 mg PO BID #10 cap 12/21/19 Ipratropium-Albuterol Nebulize 3 ml INHALATION QID #0 12/21/19 [Duoneb 0.5 mg-3 mg/3 ml Soln] predniSONE 10 mg PO DIRECTED #48 tab 12/21/19 Amoxic-Pot Clav 875-125Mg 1 tab PO BID 10 Days #20 tab 01/12/20 [Augmentin 875-125] predniSONE 50 mg PO DAILY #5 tab 01/12/20 Allergies Allergy/AdvReac Type Severity Reaction Status Date / Time Iodinated Contrast Media Allergy Rash/Hives Verified 01/12/20 10:51 [Iodinated Contrast- Oral and IV Dye] latex Allergy Rash/Hives Verified 01/12/20 10:51 Review of Systems ROS Statement: Those systems with pertinent positive or pertinent negative responses have been documented in the HPI. ROS Other: All systems not noted in ROS Statement are negative. Past Medical History Past Medical History: Atrial Fibrillation, COPD, Pneumonia, Prostate Disorder Additional Past Medical History / Comment(s): Paroxysmal Afib, bronchitis, pulmonary nodules/negative pet scan, BPH, constipation, vertigo, chronic low back pain/DDD. History of Any Multi-Drug Resistant Organisms: None Reported Past Surgical History: Back Surgery Additional Past Surgical History / Comment(s): Bilateral cataract removals-lens implants, colonoscopy, multiple kyphoplasties. Past Anesthesia/Blood Transfusion Reactions: No Reported Reaction Additional Past Anesthesia/Blood Transfusion Reaction / Comment(s): Has never received any blood transfusions. Past Psychological History: No Psychological Hx Reported Smoking Status: Current every day smoker Past Alcohol Use History: None Reported Past Drug Use History: None Reported - Past Family History Mother Family Medical History: AFIB, Dementia Father Family Medical History: Myocardial Infarction ([place]) Additional Family Medical History / Comment(s): in his 70's [place] General Exam Limitations: no limitations General appearance: alert, in no apparent distress Head exam: Present: atraumatic, normocephalic Eye exam: Present: normal appearance, PERRL ENT exam: Present: normal exam Neck exam: Present: normal inspection. Absent: tenderness, meningismus Respiratory exam: Present: wheezes. Absent: respiratory distress Cardiovascular Exam: Present: regular rate, normal rhythm GI/Abdominal exam: Present: soft. Absent: distended, tenderness, guarding, rebound Extremities exam: Present: normal inspection. Absent: normal capillary refill, pedal edema Neurological exam: Present: alert, oriented X3, CN II-XII intact. Absent: motor sensory deficit Psychiatric exam: Present: normal affect, normal mood Skin exam: Present: warm, dry. Absent: cyanosis, diaphoretic Course Vital Signs 01/12/20 01/12/20 01/12/20 10:48 12:55 13:14 Temperature 98.3 F Pulse Rate 68 84 88 Respiratory 20 Rate Blood Pressure 115/68 O2 Sat by Pulse 95 Oximetry - Reevaluation(s) Reevaluation #1: 01/12/20 12:59 patient is eager for discharge, he does not want to be admitted. He is requesting steroids. He does have good follow-up with his primary care physician and his lpn per diem. Medical Decision Making - Medical Decision Making 74-year-old male with cough and dyspnea. Patient does not want stay in the hospital. He requests steroids. He is given a steroid shot emergency department. Chest x-ray performed, negative for focal pneumonia. Patient is not in any acute distress. Discussed case with Dr. Ortega who is very familiar with this patient evaluated for close outpatient follow-up. Disposition Clinical Impression: COPD with acute exacerbation Disposition: HOME SELF-CARE Condition: Fair Instructions (If sedation given, give patient instructions): COPD (Chronic Obstructive Pulmonary Disease) (ED) Prescriptions: Amoxic-Pot Clav 875-125Mg [Augmentin 875-125] 1 tab PO BID 10 Days #20 tab predniSONE 50 mg PO DAILY #5 tab Is patient prescribed a controlled substance at d/c from ED?: No Referrals: Fernando Lambert Jr, [Primary Care Provider] - 1-2 days Time of Disposition: 13:39
--- NOTE | 2020-01-12 13:15 | XR ---
EXAMINATION TYPE: XR chest 1V portable DATE OF EXAM: 01/12/2020 COMPARISON: 12/20/2019 HISTORY: Cough TECHNIQUE: Single frontal view of the chest is obtained. FINDINGS: Evidence of vertebroplasty. Coarsened interstitium with hyperinflation suggests COPD. Hear t size normal. No pleural effusion or pneumothorax. Diffuse osteopenia and arthropathy shoulders. Scl erotic density overlying the right clavicle is none. IMPRESSION: COPD correlate for chronic interstitial lung disease.
[2020-01-12 13:49] VITALS: BP 136/71; PULSE 87; RESP 18
== END 2020-01-12 13:47 | disposition home or self-care (01) ==
LOC: EC 10:41
DX: J44.1 Chronic obstructive pulmonary disease with (acute) exacerbation (principal); N40.0 Benign prostatic hyperplasia without lower urinary tract symptoms; G89.29 Other chronic pain; M54.5 Low back pain; F17.200 Nicotine dependence, unspecified, uncomplicated; Z79.899 Other long term (current) drug therapy; Z79.01 Long term (current) use of anticoagulants; Z79.83 Long term (current) use of bisphosphonates; Z91.041 Radiographic dye allergy status; Z91.040 Latex allergy status
CPT/HCPCS: 94640; 71045; 99285; 96372; J1100

== ENCOUNTER 2020-02-09 13:05 | Emergency (ER) | payer MEDICARE ==
[2020-02-09 13:12] VITALS: BP 136/82; PULSE 94; TEMP 98.6
[2020-02-09 13:26] VITALS: RESP 20
--- NOTE | 2020-02-09 13:29 | ED ---
General Adult HPI - General Chief complaint: Recheck/Abnormal Lab/Rx Stated complaint: wants covid test Time Seen by Provider: 02/09/20 13:05 Source: patient, RN notes reviewed, old records reviewed Mode of arrival: ambulatory Limitations: no limitations - History of Present Illness Initial comments: This is a 74-year-old male who presents emergency Department complaining that he was exposed to cold. Patient states that he has no symptoms. Patient states he has COPD and does continue to smoke however. Patient states he just wants no significant spread if anyone else. Patient denies any shortness of breath or difficulty breathing. Patient denies any fever or chills. Patient denies any congestion or runny nose. Patient denies any diarrhea. Patient denies any loss of taste or smell. - Related Data Home Medications Medication Instructions Recorded Confirmed Tamsulosin HCl [Flomax] 0.4 mg PO BID 03/24/18 12/20/19 Apixaban [Eliquis] 5 mg PO BID 09/14/18 12/20/19 Metoprolol Tartrate [Lopressor] 50 mg PO BID 02/04/19 12/20/19 Ergocalciferol [Vitamin D2 50,000 unit PO TU 05/05/19 12/20/19 (DRISDOL)] Finasteride [Proscar] 5 mg PO DAILY 05/05/19 12/20/19 Umeclidinium [place] [Incruse 1 puff INHALATION RT-DAILY 06/01/19 12/20/19 Ellipta] Acetaminophen [Tylenol] 650 mg PO Q6H PRN 06/06/19 12/20/19 Calcium Carbonate [Calcium] 600 mg PO DAILY 06/06/19 12/20/19 Albuterol Inhaler [Ventolin Hfa 2 puff INHALATION RT-Q6H PRN 08/21/19 12/20/19 Inhaler] Alendronate Sodium [Fosamax] 70 mg PO GROVES 08/21/19 12/20/19 Psyllium Husk [Metamucil] 0.8 gm PO DAILY 10/28/19 12/20/19 HYDROcodone/APAP 5-325MG [[place] 1 tab PO Q6H PRN 12/20/19 12/20/19 5-325] Previous Rx's Medication Instructions Recorded Budesonide-Formot 160-4.5 Mcg 2 puff INHALATION RT-BID puff 10/08/19 [Symbicort 160-4.5 Mcg Inhaler] Doxycycline [Vibramycin] 100 mg PO BID #10 cap 12/21/19 Ipratropium-Albuterol Nebulize 3 ml INHALATION QID #0 12/21/19 [Duoneb 0.5 mg-3 mg/3 ml Soln] predniSONE 10 mg PO DIRECTED #48 tab 12/21/19 Amoxic-Pot Clav 875-125Mg 1 tab PO BID 10 Days #20 tab 01/12/20 [Augmentin 875-125] predniSONE 50 mg PO DAILY #5 tab 01/12/20 Allergies Allergy/AdvReac Type Severity Reaction Status Date / Time Iodinated Contrast Media Allergy Rash/Hives Verified 02/09/20 13:11 [Iodinated Contrast- Oral and IV Dye] latex Allergy Rash/Hives Verified 02/09/20 13:11 Review of Systems ROS Statement: Those systems with pertinent positive or pertinent negative responses have been documented in the HPI. ROS Other: All systems not noted in ROS Statement are negative. Past Medical History Past Medical History: Atrial Fibrillation, COPD, Pneumonia, Prostate Disorder Additional Past Medical History / Comment(s): Paroxysmal Afib, bronchitis, pulmonary nodules/negative pet scan, BPH, constipation, vertigo, chronic low back pain/DDD. History of Any Multi-Drug Resistant Organisms: None Reported Past Surgical History: Back Surgery Additional Past Surgical History / Comment(s): Bilateral cataract removals-lens implants, colonoscopy, multiple kyphoplasties. Past Anesthesia/Blood Transfusion Reactions: No Reported Reaction Additional Past Anesthesia/Blood Transfusion Reaction / Comment(s): Has never received any blood transfusions. Past Psychological History: No Psychological Hx Reported Smoking Status: Current every day smoker Past Alcohol Use History: None Reported Past Drug Use History: None Reported - Past Family History Mother Family Medical History: AFIB, Dementia Father Family Medical History: Myocardial Infarction ([place]) Additional Family Medical History / Comment(s): in his 70's [place] General Exam - General Exam Comments Initial Comments: GENERAL: Patient is well-developed and well-nourished. Patient is nontoxic and well- hydrated and is in no acute distress. ENT: Neck is soft and supple. No significant lymphadenopathy is noted. Oropharynx is clear. Moist mucous membranes. Neck has full range of motion without eliciting any pain. EYES: The sclera were anicteric and conjunctiva were pink and moist. Extraocular movements were intact and pupils were equal round and reactive to light. Eyelids were unremarkable. PULMONARY: Unlabored respirations. Good breath sounds bilaterally. No audible rales rhonchi or wheezing was noted. CARDIOVASCULAR: There is a regular rate and rhythm without any murmurs gallops or rubs. ABDOMEN: Soft and nontender with normal bowel sounds. SKIN: Skin is clear with no lesions or rashes and otherwise unremarkable. NEUROLOGIC: Patient is alert and oriented x3. Cranial nerves II through XII are grossly intact. Motor and sensory are also intact. Normal speech, volume and content. Symmetrical smile. MUSCULOSKELETAL: Normal extremities with adequate strength and full range of motion. LYMPHATICS: No significant lymphadenopathy is noted PSYCHIATRIC: Normal psychiatric evaluation. Limitations: no limitations Course Vital Signs 02/09/20 02/09/20 13:06 13:19 Temperature 98.6 F Pulse Rate 94 Respiratory 22 20 Rate Blood Pressure 136/82 O2 Sat by Pulse 96 Oximetry Medical Decision Making - Medical Decision Making COVID test is negative - Lab Data Lab Results 02/09/20 Range/Units 13:31 Coronavirus (PCR) Not Detected (Not Detectd) Disposition Clinical Impression: Exposure to COVID-19 virus Disposition: HOME SELF-CARE Additional Instructions: Patient should quarantined for 10 days. Patient returns as any shortness of breath. Is patient prescribed a controlled substance at d/c from ED?: No Referrals: Fernando Lambert Jr, DO [Primary Care Provider] - 1-2 days Time of Disposition: 14:14
== END 2020-02-09 14:14 | disposition home or self-care (01) ==
LOC: EC 13:05
DX: Z03.818 Encounter for observation for suspected exposure to other biological agents ruled out (principal); J44.9 Chronic obstructive pulmonary disease, unspecified; N40.0 Benign prostatic hyperplasia without lower urinary tract symptoms; G89.29 Other chronic pain; M54.5 Low back pain; F17.200 Nicotine dependence, unspecified, uncomplicated; Z79.899 Other long term (current) drug therapy; Z79.01 Long term (current) use of anticoagulants; Z79.83 Long term (current) use of bisphosphonates; Z91.041 Radiographic dye allergy status; Z91.040 Latex allergy status
CPT/HCPCS: 87635; 99284

== ENCOUNTER 2020-02-16 20:50 | Emergency (ER) | payer MEDICARE ==
[2020-02-16 20:54] VITALS: TEMP 97.9
--- NOTE | 2020-02-16 20:59 | ED ---
SOB HPI - General Chief Complaint: Shortness of Breath Stated Complaint: SOB Time Seen by Provider: 02/16/20 20:58 Source: patient Mode of arrival: ambulatory Limitations: no limitations - History of Present Illness Initial Comments: 74-year-old male with history of COPD presenting to the emergency department with a chief complaint of shortness of breath. Patient states his symptoms have been increasing over the last week. States he uses nebulized albuterol treatments every 6 but is not oxygen dependent. States it typically help, however there has been no significant improvement after using. Patient also reports increased cough. States he was exposed to his daughter who tested positive for Covid about 2 weeks ago. He denies any night sweats fevers or chills. States she continues to smoke. He also reports increased sputum production. Denies any chest pain, nausea, vomiting, headaches, visual changes. Patient has history of A. fib and is on eliquis - Related Data Home Medications Medication Instructions Recorded Confirmed Tamsulosin HCl [Flomax] 0.4 mg PO BID 03/24/18 12/20/19 Apixaban [Eliquis] 5 mg PO BID 09/14/18 12/20/19 Metoprolol Tartrate [Lopressor] 50 mg PO BID 02/04/19 12/20/19 Ergocalciferol [Vitamin D2 50,000 unit PO TU 05/05/19 12/20/19 (DRISDOL)] Finasteride [Proscar] 5 mg PO DAILY 05/05/19 12/20/19 Umeclidinium [place] [Incruse 1 puff INHALATION RT-DAILY 06/01/19 12/20/19 Ellipta] Acetaminophen [Tylenol] 650 mg PO Q6H PRN 06/06/19 12/20/19 Calcium Carbonate [Calcium] 600 mg PO DAILY 06/06/19 12/20/19 Albuterol Inhaler [Ventolin Hfa 2 puff INHALATION RT-Q6H PRN 08/21/19 12/20/19 Inhaler] Alendronate Sodium [Fosamax] 70 mg PO GROVES 08/21/19 12/20/19 Psyllium Husk [Metamucil] 0.8 gm PO DAILY 10/28/19 12/20/19 HYDROcodone/APAP 5-325MG [[place] 1 tab PO Q6H PRN 12/20/19 12/20/19 5-325] Previous Rx's Medication Instructions Recorded Budesonide-Formot 160-4.5 Mcg 2 puff INHALATION RT-BID puff 10/08/19 [Symbicort 160-4.5 Mcg Inhaler] Doxycycline [Vibramycin] 100 mg PO BID #10 cap 12/21/19 Ipratropium-Albuterol Nebulize 3 ml INHALATION QID #0 12/21/19 [Duoneb 0.5 mg-3 mg/3 ml Soln] predniSONE 10 mg PO DIRECTED #48 tab 12/21/19 Amoxic-Pot Clav 875-125Mg 1 tab PO BID 10 Days #20 tab 01/12/20 [Augmentin 875-125] predniSONE 50 mg PO DAILY #5 tab 01/12/20 predniSONE [Deltasone] 20 mg PO DAILY #5 tab 02/16/20 Allergies Allergy/AdvReac Type Severity Reaction Status Date / Time Iodinated Contrast Media Allergy Rash/Hives Verified 02/16/20 20:54 [Iodinated Contrast- Oral and IV Dye] latex Allergy Rash/Hives Verified 02/16/20 20:54 Review of Systems ROS Statement: Those systems with pertinent positive or pertinent negative responses have been documented in the HPI. ROS Other: All systems not noted in ROS Statement are negative. Past Medical History Past Medical History: Atrial Fibrillation, COPD, Pneumonia, Prostate Disorder Additional Past Medical History / Comment(s): Paroxysmal Afib, bronchitis, pulmonary nodules/negative pet scan, BPH, constipation, vertigo, chronic low back pain/DDD. History of Any Multi-Drug Resistant Organisms: None Reported Past Surgical History: Back Surgery Additional Past Surgical History / Comment(s): Bilateral cataract removals-lens implants, colonoscopy, multiple kyphoplasties. Past Anesthesia/Blood Transfusion Reactions: No Reported Reaction Additional Past Anesthesia/Blood Transfusion Reaction / Comment(s): Has never received any blood transfusions. Past Psychological History: No Psychological Hx Reported Smoking Status: Current every day smoker Past Alcohol Use History: None Reported Past Drug Use History: None Reported - Past Family History Mother Family Medical History: AFIB, Dementia Father Family Medical History: Myocardial Infarction ([place]) Additional Family Medical History / Comment(s): in his 70's [place] General Exam Limitations: no limitations General appearance: alert, in no apparent distress Head exam: Present: atraumatic, normocephalic, normal inspection Eye exam: Present: normal appearance, PERRL, EOMI Pupils: Present: normal accommodation ENT exam: Present: normal exam, normal oropharynx, mucous membranes moist, TM's normal bilaterally, normal external ear exam Neck exam: Present: normal inspection, full ROM. Absent: tenderness Respiratory exam: Present: wheezes (Diffuse bilateral wheezing). Absent: normal lung sounds bilaterally, respiratory distress, rales, rhonchi, stridor Cardiovascular Exam: Present: regular rate, normal rhythm, normal heart sounds GI/Abdominal exam: Present: soft. Absent: distended, tenderness, guarding, rebound Extremities exam: Present: normal inspection, full ROM, normal capillary refill. Absent: tenderness, pedal edema, joint swelling, calf tenderness Back exam: Present: normal inspection, full ROM. Absent: tenderness, CVA tenderness (R), CVA tenderness (L), muscle spasm, paraspinal tenderness, vertebral tenderness Neurological exam: Present: alert, oriented X3 Psychiatric exam: Present: normal affect, normal mood Skin exam: Present: warm, dry, intact, normal color Course Vital Signs 02/16/20 02/16/20 02/16/20 20:51 22:39 22:53 Temperature 97.9 F Pulse Rate 95 80 81 Respiratory 22 Rate Blood Pressure 117/74 O2 Sat by Pulse 93 L Oximetry Medical Decision Making - Medical Decision Making 74-year-old male presenting to emergency department for chief complaint of shortness of breath. Patient has extensive COPD and he is a long-time smoker and a current smoker. On physical examination, patient has diffuse bilateral wheezing bilaterally. Chest x-ray shows no acute processes just fibrotic chronic changes. Covid test negative. CBC is CMP is unremarkable. Initial troponin negative. EKG showing sinus rhythm. He was initially 92% on room air. Patient was given DuoNeb and Solu-Medrol. On reevaluation, patient reports improvement in symptoms. On auscultation, patient sounds significantly improved with only faint wheezing. His repeat oxygen saturation was 97% on room air. Patient will be discharged with 5 days of prednisone. He was advised to follow with his primary care physician. Return parameters were thoroughly discussed patient was resting agreeable. Patient feels comfortable going home. Case discussed with physician. - Lab Data Result diagrams: 02/16/20 21:52 02/16/20 21:52 Lab Results 02/16/20 02/16/20 02/16/20 Range/Units 21:52 21:52 21:52 WBC 9.2 (3.8-10.6) k/uL RBC 4.31 (4.30-5.90) m/uL Hgb 14.3 (13.0-17.5) gm/dL Hct 41.3 (39.0-53.0) % MCV 95.8 (80.0-100.0) fL MCH 33.2 (25.0-35.0) pg MCHC 34.6 (31.0-37.0) g/dL RDW 12.3 (11.5-15.5) % Plt Count 233 (150-450) k/uL MPV 7.7 Neutrophils % 59 % Lymphocytes % 20 % Monocytes % 8 % Eosinophils % 10 % Basophils % 1 % Neutrophils # 5.4 (1.3-7.7) k/uL Lymphocytes # 1.9 (1.0-4.8) k/uL Monocytes # 0.7 (0-1.0) k/uL Eosinophils # 0.9 H (0-0.7) k/uL Basophils # 0.1 (0-0.2) k/uL PT 10.7 (9.0-12.0) sec INR 1.0 (<1.2) APTT 26.7 (22.0-30.0) sec Sodium 133 L (137-145) mmol/L Potassium 4.2 (3.5-5.1) mmol/L Chloride 102 (98-107) mmol/L Carbon Dioxide 26 (22-30) mmol/L Anion Gap 5 mmol/L BUN 21 H (9-20) mg/dL Creatinine 0.95 (0.66-1.25) mg/dL Est GFR (CKD-EPI)AfAm >90 (>60 ml/min/1.73 sqM) Est GFR (CKD-EPI)NonAf 79 (>60 ml/min/1.73 sqM) Glucose 96 (74-99) mg/dL Plasma Lactic Acid [place] (0.7-2.0) mmol/L Calcium 10.1 (8.4-10.2) mg/dL Total Bilirubin 0.5 (0.2-1.3) mg/dL AST 22 (17-59) U/L ALT 14 (4-49) U/L Alkaline Phosphatase 102 (38-126) U/L Troponin I (0.000-0.034) ng/mL Total Protein 6.3 (6.3-8.2) g/dL Albumin 3.7 (3.5-5.0) g/dL Coronavirus (PCR) (Not Detectd) 02/16/20 02/16/20 02/16/20 Range/Units 21:52 21:52 21:52 WBC (3.8-10.6) k/uL RBC (4.30-5.90) m/uL Hgb (13.0-17.5) gm/dL Hct (39.0-53.0) % MCV (80.0-100.0) fL MCH (25.0-35.0) pg MCHC (31.0-37.0) g/dL RDW (11.5-15.5) % Plt Count (150-450) k/uL MPV Neutrophils % % Lymphocytes % % Monocytes % % Eosinophils % % Basophils % % Neutrophils # (1.3-7.7) k/uL Lymphocytes # (1.0-4.8) k/uL Monocytes # (0-1.0) k/uL Eosinophils # (0-0.7) k/uL Basophils # (0-0.2) k/uL PT (9.0-12.0) sec INR (<1.2) APTT (22.0-30.0) sec Sodium (137-145) mmol/L Potassium (3.5-5.1) mmol/L Chloride (98-107) mmol/L Carbon Dioxide (22-30) mmol/L Anion Gap mmol/L BUN (9-20) mg/dL Creatinine (0.66-1.25) mg/dL Est GFR (CKD-EPI)AfAm (>60 ml/min/1.73 sqM) Est GFR (CKD-EPI)NonAf (>60 ml/min/1.73 sqM) Glucose (74-99) mg/dL Plasma Lactic Acid [place] 1.0 (0.7-2.0) mmol/L Calcium (8.4-10.2) mg/dL Total Bilirubin (0.2-1.3) mg/dL AST (17-59) U/L ALT (4-49) U/L Alkaline Phosphatase (38-126) U/L Troponin I <0.012 (0.000-0.034) ng/mL Total Protein (6.3-8.2) g/dL Albumin (3.5-5.0) g/dL Coronavirus (PCR) Not Detected (Not Detectd) - EKG Data EKG Comments: Sinus rhythm no ST or T-wave changes. Ventricular rate 78, NC 184, QRS 82, QTC 420. Disposition Clinical Impression: COPD exacerbation, Shortness of breath Disposition: HOME SELF-CARE Condition: Good Instructions (If sedation given, give patient instructions): COPD (Chronic Obstructive Pulmonary Disease) (DC) Additional Instructions: Take prescribed medication as directed. Follow up with her primary care physician. Return to emergency department if symptoms worsen. Is patient prescribed a controlled substance at d/c from ED?: No Referrals: Fernando Lambert Jr, DO [Primary Care Provider] - 1-2 days Time of Disposition: 23:06
[2020-02-16] MEDS ORDERED: methylPREDNISolone SOD SUCCI 125 MG/2 ML VIAL IV STA (21:16)
[2020-02-16 22:05] LABS: Basophils # (A) 0.1 k/uL (0-0.2); Basophils % (A) 1 %; Eosinophils # (A) 0.9 k/uL (0-0.7); Eosinophils % (A) 10 %; HCT 41.3 % (39.0-53.0); HGB 14.3 gm/dL (13.0-17.5); Lymphocytes # (A) 1.9 k/uL (1.0-4.8); Lymphocytes % (A) 20 %; MCH 33.2 pg (25.0-35.0); MCHC 34.6 g/dL (31.0-37.0); MCV 95.8 fL (80.0-100.0); Mean Platelet Volume 7.7; Monocytes # (A) 0.7 k/uL (0-1.0); Monocytes % (A) 8 %; Neutrophils # (A) 5.4 k/uL (1.3-7.7); Neutrophils % (A) 59 %; Platelet Count 233 k/uL (150-450); RBC 4.31 m/uL (4.30-5.90); RDW 12.3 % (11.5-15.5); WBC 9.2 k/uL (3.8-10.6)
--- NOTE | 2020-02-16 22:09 | XR ---
EXAMINATION TYPE: XR chest 1V portable DATE OF EXAM: 02/16/2020 COMPARISON: Chest x-ray January 12, 2020. HISTORY: Worsening shortness of breath. TECHNIQUE: Single AP portable frontal upright view of the chest is obtained. FINDINGS: There is chronic parenchymal fibrotic changes bilaterally without suspicious new focal air space opacity, pleural effusion, or pneumothorax seen. The cardiac silhouette size is stable and wi thin normal limits. The osseous structures are demineralized. Multilevel vertebroplasty seen better on prior study. IMPRESSION: Chronic pulmonary fibrotic changes without new suspicious acute pulmonary process.
[2020-02-16 22:16] LABS: Partial Thromboplastin Time 26.7 sec (22.0-30.0); Prothrombin Time 10.7 sec (9.0-12.0)
[2020-02-16 22:17] LABS: ALT 14 U/L (4-49); AST 22 U/L (17-59); African American GFR (CKD) >90 (>60 ml/min/1.73 sqM); Albumin 3.7 g/dL (3.5-5.0); Alkaline Phosphatase 102 U/L (38-126); Anion Gap 5 mmol/L; Blood Urea Nitrogen 21 mg/dL (9-20); Calcium 10.1 mg/dL (8.4-10.2); Carbon Dioxide 26 mmol/L (22-30); Chloride 102 mmol/L (98-107); Glucose 96 mg/dL (74-99); Non-African American GFR(CKD) 79 (>60 ml/min/1.73 sqM); Potassium 4.2 mmol/L (3.5-5.1); Sodium 133 mmol/L (137-145); Total Bilirubin 0.5 mg/dL (0.2-1.3); Total Protein 6.3 g/dL (6.3-8.2)
[2020-02-16] MEDS ORDERED: IPRATROPIUM-ALBUTEROL 3 ML NEB INHALATION STA (22:33)
[2020-02-16 23:48] VITALS: BP 126/80; PULSE 85; RESP 20
== END 2020-02-16 23:24 | disposition home or self-care (01) ==
LOC: EC 20:50
DX: J44.1 Chronic obstructive pulmonary disease with (acute) exacerbation (principal); I48.0 Paroxysmal atrial fibrillation; N40.0 Benign prostatic hyperplasia without lower urinary tract symptoms; Z79.51 Long term (current) use of inhaled steroids; Z79.899 Other long term (current) drug therapy; Z79.01 Long term (current) use of anticoagulants; Z98.42 Cataract extraction status, left eye; F17.200 Nicotine dependence, unspecified, uncomplicated; Z91.040 Latex allergy status; Z91.041 Radiographic dye allergy status; Z98.41 Cataract extraction status, right eye; Z96.1 Presence of intraocular lens; Z20.828 Contact with and (suspected) exposure to other viral communicable diseases
CPT/HCPCS: 36415; 94640; 93005; 80053; 83605; 84484; 85025; 85610; 85730; 87635; 71045; 99285; 96374; J2930

== ENCOUNTER 2020-02-27 19:05 | Inpatient (IN) | payer MEDICARE ==
[2020-02-27 19:45] LABS: Basophils # (A) 0.2 k/uL (0-0.2); Basophils % (A) 2 %; Eosinophils # (A) 0.8 k/uL (0-0.7); Eosinophils % (A) 8 %; HCT 47.3 % (39.0-53.0); Lymphocytes # (A) 1.8 k/uL (1.0-4.8); Lymphocytes % (A) 18 %; MCH 32.5 pg (25.0-35.0); MCHC 33.8 g/dL (31.0-37.0); MCV 96.2 fL (80.0-100.0); Mean Platelet Volume 7.5; Monocytes # (A) 0.8 k/uL (0-1.0); Monocytes % (A) 7 %; Neutrophils # (A) 6.4 k/uL (1.3-7.7); Neutrophils % (A) 63 %; Platelet Count 244 k/uL (150-450); RBC 4.92 m/uL (4.30-5.90); RDW 12.2 % (11.5-15.5); WBC 10.2 k/uL (3.8-10.6)
[2020-02-27 19:55] LABS: Partial Thromboplastin Time 26.3 sec (22.0-30.0); Prothrombin Time 10.1 sec (9.0-12.0)
[2020-02-27 19:56] LABS: ALT 16 U/L (4-49); AST 26 U/L (17-59); African American GFR (CKD) >90 (>60 ml/min/1.73 sqM); Albumin 4.5 g/dL (3.5-5.0); Alkaline Phosphatase 94 U/L (38-126); Anion Gap 8 mmol/L; Blood Urea Nitrogen 18 mg/dL (9-20); Calcium 10.3 mg/dL (8.4-10.2); Carbon Dioxide 24 mmol/L (22-30); Chloride 102 mmol/L (98-107); Glucose 90 mg/dL (74-99); Non-African American GFR(CKD) 83 (>60 ml/min/1.73 sqM); Potassium 4.6 mmol/L (3.5-5.1); Sodium 134 mmol/L (137-145); Total Bilirubin 0.6 mg/dL (0.2-1.3); Total Protein 7.4 g/dL (6.3-8.2)
--- NOTE | 2020-02-27 20:35 | XR ---
EXAMINATION TYPE: XR chest 1V portable DATE OF EXAM: 02/27/2020 COMPARISON: 02/16/2020 HISTORY: Difficulty breathing TECHNIQUE: FINDINGS: There is no heart failure nor confluent pneumonic infiltrate. There is coarsening of the pu lmonary interstitial markings. Heart size is normal. There is no pleural effusion. IMPRESSION: Pulmonary interstitial fibrosis. Normal heart. No change.
[2020-02-27] MEDS ORDERED: MAGNESIUM SULFATE-D5W PMX 1 GM in DEXTROSE/WATER 1 100ML.BAG IVPB ONE (20:36)
[2020-02-27] MEDS ORDERED: methylPREDNISolone SOD SUCCI 125 MG/2 ML VIAL IV STA (20:36)
--- NOTE | 2020-02-27 21:24 | ED ---
SOB HPI - General Chief Complaint: Shortness of Breath Stated Complaint: SOB Time Seen by Provider: 02/27/20 19:10 Source: patient Mode of arrival: wheelchair Limitations: no limitations - History of Present Illness Initial Comments: Patient is a 74-year-old male past history of COPD, A. fib on Eliquis who presents emergency Department with reported shortness of breath. Patient states that he has been short of breath for the past 3 days. He has been using his inhalers without improvement in his symptoms. Patient does not have any home oxygen. Does see Dr. Poole from pulmonology. He admits to nonproductive cough which is chronic. No fevers or chills. Denies chest pain. No history of heart failure. Has had contact with Covid positive patient's however previous testing has always been negative. No lower extremity swelling. No history of DVT or PE. Patient has been compliant with his anticoagulation. No other alleviating, precipitating or modifying factors - Related Data Home Medications Medication Instructions Recorded Confirmed Tamsulosin HCl [Flomax] 0.4 mg PO BID 03/24/18 02/27/20 Apixaban [Eliquis] 5 mg PO BID 09/14/18 02/27/20 Metoprolol Tartrate [Lopressor] 50 mg PO BID 02/04/19 02/27/20 Ergocalciferol [Vitamin D2 50,000 unit PO TU 05/05/19 02/27/20 (DRISDOL)] Finasteride [Proscar] 5 mg PO DAILY 05/05/19 02/27/20 Acetaminophen [Tylenol] 650 mg PO Q6H PRN 06/06/19 02/27/20 Calcium Carbonate [Calcium] 600 mg PO DAILY 06/06/19 02/27/20 Albuterol Inhaler [Ventolin Hfa 2 puff INHALATION RT-Q6H PRN 08/21/19 02/27/20 Inhaler] Alendronate Sodium [Fosamax] 70 mg PO GROVES 08/21/19 02/27/20 Psyllium Husk [Metamucil] 0.8 gm PO DAILY 10/28/19 02/27/20 HYDROcodone/APAP 5-325MG [[place] 1 tab PO Q6H PRN 12/20/19 02/27/20 5-325] Ipratropium-Albuterol Nebulize 3 ml INHALATION RT-QID 02/27/20 02/27/20 [Duoneb 0.5 mg-3 mg/3 ml Soln] Previous Rx's Medication Instructions Recorded Budesonide-Formot 160-4.5 Mcg 2 puff INHALATION RT-BID puff 10/08/19 [Symbicort 160-4.5 Mcg Inhaler] Umeclidinium [place] [Incruse 1 puff INHALATION RT-DAILY 30 Days 02/28/20 Ellipta] #1 device predniSONE 10 mg PO DAILY #30 tab 02/28/20 Allergies Allergy/AdvReac Type Severity Reaction Status Date / Time Iodinated Contrast Media Allergy Rash/Hives Verified 02/27/20 20:59 [Iodinated Contrast- Oral and IV Dye] latex Allergy Rash/Hives Verified 02/27/20 20:59 Review of Systems ROS Statement: Those systems with pertinent positive or pertinent negative responses have been documented in the HPI. ROS Other: All systems not noted in ROS Statement are negative. Past Medical History Past Medical History: Atrial Fibrillation, COPD, Pneumonia, Prostate Disorder Additional Past Medical History / Comment(s): Paroxysmal Afib, bronchitis, pulmonary nodules/negative pet scan, BPH, constipation, vertigo, chronic low back pain/DDD. History of Any Multi-Drug Resistant Organisms: None Reported Past Surgical History: Back Surgery Additional Past Surgical History / Comment(s): Bilateral cataract removals-lens implants, colonoscopy, multiple kyphoplasties. Past Anesthesia/Blood Transfusion Reactions: No Reported Reaction Additional Past Anesthesia/Blood Transfusion Reaction / Comment(s): Has never received any blood transfusions. Past Psychological History: No Psychological Hx Reported Smoking Status: Current every day smoker Past Alcohol Use History: None Reported Past Drug Use History: None Reported - Past Family History Mother Family Medical History: AFIB, Dementia Father Family Medical History: Myocardial Infarction ([place]) Additional Family Medical History / Comment(s): in his 70's [place] General Exam Limitations: no limitations General appearance: alert, in distress Head exam: Present: atraumatic, normocephalic, normal inspection Eye exam: Present: normal appearance, PERRL, EOMI. Absent: scleral icterus, conjunctival injection, periorbital swelling ENT exam: Present: normal exam, mucous membranes moist Neck exam: Present: normal inspection. Absent: tenderness, meningismus, lymphadenopathy Respiratory exam: Present: respiratory distress, wheezes, accessory muscle use, decreased breath sounds. Absent: rales, rhonchi, stridor Cardiovascular Exam: Present: regular rate, normal rhythm, normal heart sounds. Absent: systolic murmur, diastolic murmur, rubs, gallop, clicks GI/Abdominal exam: Present: soft, normal bowel sounds. Absent: distended, tenderness, guarding, rebound, rigid Extremities exam: Present: normal inspection, full ROM, normal capillary refill. Absent: tenderness, pedal edema, joint swelling, calf tenderness Back exam: Present: normal inspection Neurological exam: Present: alert, oriented X3, CN II-XII intact Psychiatric exam: Present: normal affect, normal mood Skin exam: Present: warm, dry, intact, normal color. Absent: rash Course Vital Signs 02/27/20 02/27/20 02/27/20 19:10 22:28 22:33 Temperature 98.9 F 97.6 F Pulse Rate 86 92 84 Pulse Rate [ Pulse Oximetery ] Respiratory 28 H 14 Rate Blood Pressure 115/72 123/81 Blood Pressure [Right Arm] O2 Sat by Pulse 90 L 90 L Oximetry 02/27/20 02/27/20 02/27/20 22:37 22:43 22:54 Temperature 97.5 F L Pulse Rate 86 84 Pulse Rate [ 87 Pulse Oximetery ] Respiratory 20 22 Rate Blood Pressure 121/80 Blood Pressure 130/74 [Right Arm] O2 Sat by Pulse 96 92 L Oximetry Medical Decision Making - Medical Decision Making Upon arrival patient is promptly placed into room 1. He does have significant work of breathing and therefore is immediately placed on BiPAP. Saturations are 90%. Peripheral IV is established and laboratory studies were conducted. Patient is swabbed for Covid and influenza. Laboratory studies are reviewed. Covid and influenza are negative. Chest x-ray demonstrates pulmonary interstitial fibrosis. 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 He is removed from the BiPAP at this time. Patient given Solu- Medrol and a gram of magnesium. He does get up to use the restroom and is notably short of breath upon return. Due to his continued work of breathing, I recommended hospitalization for which the patient did agree to. Discuss case with Dr. Lambert who agreed to admit the patient. Patient remained in stable condition awaiting a bed on the floor - Lab Data Result diagrams: 02/28/20 09:04 02/28/20 09:04 Lab Results 02/27/20 02/27/20 02/27/20 Range/Units 19:33 19:33 19:33 WBC 10.2 (3.8-10.6) k/uL RBC 4.92 (4.30-5.90) m/uL Hgb 16.0 (13.0-17.5) gm/dL Hct 47.3 (39.0-53.0) % MCV 96.2 (80.0-100.0) fL MCH 32.5 (25.0-35.0) pg MCHC 33.8 (31.0-37.0) g/dL RDW 12.2 (11.5-15.5) % Plt Count 244 (150-450) k/uL MPV 7.5 Neutrophils % 63 % Lymphocytes % 18 % Monocytes % 7 % Eosinophils % 8 % Basophils % 2 % Neutrophils # 6.4 (1.3-7.7) k/uL Lymphocytes # 1.8 (1.0-4.8) k/uL Monocytes # 0.8 (0-1.0) k/uL Eosinophils # 0.8 H (0-0.7) k/uL Basophils # 0.2 (0-0.2) k/uL PT 10.1 (9.0-12.0) sec INR 1.0 (<1.2) APTT 26.3 (22.0-30.0) sec Sodium 134 L (137-145) mmol/L Potassium 4.6 (3.5-5.1) mmol/L Chloride 102 (98-107) mmol/L Carbon Dioxide 24 (22-30) mmol/L Anion Gap 8 mmol/L BUN 18 (9-20) mg/dL Creatinine 0.91 (0.66-1.25) mg/dL Est GFR (CKD-EPI)AfAm >90 (>60 ml/min/1.73 sqM) Est GFR (CKD-EPI)NonAf 83 (>60 ml/min/1.73 sqM) Glucose 90 (74-99) mg/dL Plasma Lactic Acid Santi (0.7-2.0) mmol/L Calcium 10.3 H (8.4-10.2) mg/dL Total Bilirubin 0.6 (0.2-1.3) mg/dL AST 26 (17-59) U/L ALT 16 (4-49) U/L Alkaline Phosphatase 94 (38-126) U/L Troponin I (0.000-0.034) ng/mL NT-Pro-B Natriuret Pep pg/mL Total Protein 7.4 (6.3-8.2) g/dL Albumin 4.5 (3.5-5.0) g/dL 02/27/20 02/27/20 02/27/20 Range/Units 19:33 19:33 19:33 WBC (3.8-10.6) k/uL RBC (4.30-5.90) m/uL Hgb (13.0-17.5) gm/dL Hct (39.0-53.0) % MCV (80.0-100.0) fL MCH (25.0-35.0) pg MCHC (31.0-37.0) g/dL RDW (11.5-15.5) % Plt Count (150-450) k/uL MPV Neutrophils % % Lymphocytes % % Monocytes % % Eosinophils % % Basophils % % Neutrophils # (1.3-7.7) k/uL Lymphocytes # (1.0-4.8) k/uL Monocytes # (0-1.0) k/uL Eosinophils # (0-0.7) k/uL Basophils # (0-0.2) k/uL PT (9.0-12.0) sec INR (<1.2) APTT (22.0-30.0) sec Sodium (137-145) mmol/L Potassium (3.5-5.1) mmol/L Chloride (98-107) mmol/L Carbon Dioxide (22-30) mmol/L Anion Gap mmol/L BUN (9-20) mg/dL Creatinine (0.66-1.25) mg/dL Est GFR (CKD-EPI)AfAm (>60 ml/min/1.73 sqM) Est GFR (CKD-EPI)NonAf (>60 ml/min/1.73 sqM) Glucose (74-99) mg/dL Plasma Lactic Acid Santi 1.2 (0.7-2.0) mmol/L Calcium (8.4-10.2) mg/dL Total Bilirubin (0.2-1.3) mg/dL AST (17-59) U/L ALT (4-49) U/L Alkaline Phosphatase (38-126) U/L Troponin I <0.012 (0.000-0.034) ng/mL NT-Pro-B Natriuret Pep 98 pg/mL Total Protein (6.3-8.2) g/dL Albumin (3.5-5.0) g/dL - EKG Data EKG Comments: EKG demonstrates normal sinus rhythm with a ventricular rate of 84. GA interval 154. QRS 72. QTC of 441. Some J-point elevation in 2, 3 and aVF. No reciprocal changes Critical Care Time Critical Care Time: Yes Critical Care Time: 32 minutes Disposition Clinical Impression: COPD with acute exacerbation, BiPAP (biphasic positive airway pressure) dependence Disposition: ADMITTED IP TO THIS HOSP Condition: Stable Is patient prescribed a controlled substance at d/c from ED?: No Decision to Admit Reason: Admit from EC Decision Date: 02/27/20 Decision Time: 21:24
[2020-02-27] MEDS ORDERED: NALOXONE 0.4 MG/ML 1 ML VIAL IV PRN (21:53)
[2020-02-27] MEDS ORDERED: IPRATROPIUM-ALBUTEROL 3 ML NEB INHALATION STA (21:57)
[2020-02-27] MEDS: IPRATROPIUM-ALBUTEROL 3 ML NEB INHALATION SCH (23:30)
[2020-02-28] MEDS ORDERED: ACETAMINOPHEN TAB 325 MG TAB PO PRN (01:01)
[2020-02-28] MEDS ORDERED: HYDROcodone/APAP 5-325MG 1 EACH TAB PO PRN (01:01)
[2020-02-28] MEDS: IPRATROPIUM-ALBUTEROL 3 ML NEB INHALATION SCH ×4 (02:33→15:24)
[2020-02-28] MEDS ORDERED: NON FORMULARY DRUG (Umeclidinium Bromide [Incruse Ellipta] 62.5 MCG Blst.W.Dev) INHALATION SCH (08:00)
[2020-02-28] MEDS ORDERED: SYMBICORT 160-4.5 MCG INHALER INHALATION SCH (08:00)
[2020-02-28] MEDS ORDERED: methylPREDNISolone SOD SUCCI 40 MG/ML 1 ML VIAL IV SCH (08:00)
[2020-02-28 08:59] VITALS: RESP 20; TEMP 97.7
[2020-02-28] MEDS ORDERED: TAMSULOSIN 0.4 MG CAP.ER.24H PO SCH (09:00)
[2020-02-28] MEDS ORDERED: METOPROLOL TARTRATE 50 MG TAB PO SCH (09:00)
[2020-02-28] MEDS ORDERED: PSYLLIUM HUSK 100% 6 GM PACKET PO SCH (09:00)
[2020-02-28] MEDS ORDERED: CALCIUM CARBONATE 500 MG CHEWABLE PO SCH (09:00)
[2020-02-28] MEDS ORDERED: FINASTERIDE 5 MG TAB PO SCH (09:00)
[2020-02-28] MEDS ORDERED: APIXABAN 5 MG TAB PO SCH (09:00)
[2020-02-28 09:34] LABS: Basophils % (A) 0 %; Eosinophils % (A) 0 %; HCT 41.7 % (39.0-53.0); HGB 14.3 gm/dL (13.0-17.5); Lymphocytes # (A) 0.6 k/uL (1.0-4.8); Lymphocytes % (A) 9 %; MCH 33.1 pg (25.0-35.0); MCHC 34.4 g/dL (31.0-37.0); MCV 96.4 fL (80.0-100.0); Mean Platelet Volume 7.7; Monocytes # (A) 0.1 k/uL (0-1.0); Monocytes % (A) 2 %; Neutrophils # (A) 5.6 k/uL (1.3-7.7); Neutrophils % (A) 89 %; Platelet Count 199 k/uL (150-450); RBC 4.33 m/uL (4.30-5.90); RDW 12.2 % (11.5-15.5); WBC 6.3 k/uL (3.8-10.6)
[2020-02-28 09:41] LABS: Glucose,Whole Blood 148 mg/dL (75-99)
[2020-02-28 09:45] LABS: African American GFR (CKD) >90 (>60 ml/min/1.73 sqM); Anion Gap 8 mmol/L; Blood Urea Nitrogen 19 mg/dL (9-20); Calcium 8.9 mg/dL (8.4-10.2); Carbon Dioxide 23 mmol/L (22-30); Chloride 100 mmol/L (98-107); Glucose 242 mg/dL (74-99); Non-African American GFR(CKD) 86 (>60 ml/min/1.73 sqM); Potassium 4.7 mmol/L (3.5-5.1); Sodium 131 mmol/L (137-145)
[2020-02-28 11:43] VITALS: BP 129/66
--- NOTE | 2020-02-28 13:52 | P.HPIM ---
History of Present Illness This is a 74-year-old gentleman with history of paroxysmal atrial fibrillation, COPD, pulmonary nodules, back surgery, ongoing nicotine dependence-at least a 26-rgxy-edyt smoker and multiple other medical issues. presented to the ER with complaints of worsening dyspnea 3 days, nonproductive cough. Denies chest pain, palpitations. Denies fever or chills. No hemoptysis. Minimal nonproductive cough. Denies lightheadedness, dizziness or focal deficits. Denies nausea vomiting or diarrhea. Denies syncope. Chest x-ray reporting pulmonary interstitial infiltrates related to interstitial fibrosis, EKG reporting sinus Rhythm Afebrile, normal WBC. Hematology, coagulation, chemistry panels unremarkable with the exception of sodium 131. Respiratory rate in the 20s on admission, maintaining O2 sats in the 90s on room air, needed BIPAP intinally. Currently patient is back to baseline and Pulmonology has already seen him. No new recommendations Review of Systems All systems: negative Past Medical History Past Medical History: Atrial Fibrillation, COPD, Pneumonia, Prostate Disorder Additional Past Medical History / Comment(s): Paroxysmal Afib, bronchitis, pulmonary nodules/negative pet scan, BPH, constipation, vertigo, chronic low back pain/DDD. History of Any Multi-Drug Resistant Organisms: None Reported Past Surgical History: Back Surgery Additional Past Surgical History / Comment(s): Bilateral cataract removals-lens implants, colonoscopy, multiple kyphoplasties. Past Anesthesia/Blood Transfusion Reactions: No Reported Reaction Additional Past Anesthesia/Blood Transfusion Reaction / Comment(s): Has never received any blood transfusions. Past Psychological History: No Psychological Hx Reported Smoking Status: Current every day smoker Past Alcohol Use History: None Reported Past Drug Use History: None Reported - Past Family History Mother Family Medical History: AFIB, Dementia Father Family Medical History: Myocardial Infarction ([place]) Additional Family Medical History / Comment(s): in his 70's [place] Medications and Allergies Home Medications Medication Instructions Recorded Confirmed Type Tamsulosin HCl [Flomax] 0.4 mg PO BID 03/24/18 02/27/20 History Apixaban [Eliquis] 5 mg PO BID 09/14/18 02/27/20 History Metoprolol Tartrate [Lopressor] 50 mg PO BID 02/04/19 02/27/20 History Ergocalciferol [Vitamin D2 50,000 unit PO TU 05/05/19 02/27/20 History (DRISDOL)] Finasteride [Proscar] 5 mg PO DAILY 05/05/19 02/27/20 History Umeclidinium [place] [Incruse 1 puff INHALATION RT-DAILY 06/01/19 02/27/20 History Ellipta] Acetaminophen [Tylenol] 650 mg PO Q6H PRN 06/06/19 02/27/20 History Calcium Carbonate [Calcium] 600 mg PO DAILY 06/06/19 02/27/20 History Albuterol Inhaler [Ventolin Hfa 2 puff INHALATION RT-Q6H PRN 08/21/19 02/27/20 History Inhaler] Alendronate Sodium [Fosamax] 70 mg PO GROVES 08/21/19 02/27/20 History Budesonide-Formot 160-4.5 Mcg 2 puff INHALATION RT-BID puff 10/08/19 02/27/20 Rx [Symbicort 160-4.5 Mcg Inhaler] Psyllium Husk [Metamucil] 0.8 gm PO DAILY 10/28/19 02/27/20 History HYDROcodone/APAP 5-325MG [[place] 1 tab PO Q6H PRN 12/20/19 02/27/20 History 5-325] Ipratropium-Albuterol Nebulize 3 ml INHALATION RT-QID 02/27/20 02/27/20 History [Duoneb 0.5 mg-3 mg/3 ml Soln] Allergies Allergy/AdvReac Type Severity Reaction Status Date / Time Iodinated Contrast Media Allergy Rash/Hives Verified 02/27/20 20:59 [Iodinated Contrast- Oral and IV Dye] latex Allergy Rash/Hives Verified 02/27/20 20:59 Physical Exam Vitals: Vital Signs Temp Pulse Pulse Resp BP BP Pulse Ox 02/28/20 11:43 85 20 129/66 93 L 02/28/20 11:42 80 02/28/20 11:31 80 02/28/20 08:26 100 02/28/20 08:11 104 H 02/28/20 08:00 97.7 F 103 H 20 127/67 94 L 02/28/20 04:00 98.2 F 88 18 110/70 90 L 02/28/20 02:50 88 02/28/20 02:39 88 02/27/20 22:54 97.5 F L 87 22 130/74 92 L 02/27/20 22:43 84 02/27/20 22:37 86 20 121/80 96 02/27/20 22:33 84 02/27/20 22:28 97.6 F 92 14 123/81 90 L 02/27/20 19:10 98.9 F 86 28 H 115/72 90 L Intake and Output 02/27/20 02/28/20 02/28/20 22:59 06:59 14:59 Intake Total 475 475 480 Balance 475 475 480 Intake: Oral 475 475 480 Other: Voiding Method Toilet # Voids 2 Weight 70.307 kg 71.3 kg GENERAL EXAM: Pleasant 74-year-old gentleman. Alert, active, comfortable in no apparent distress, sitting up at bedside HEAD: Normocephalic. EYES: Normal reaction of pupils, equal size. NOSE: Clear with pink turbinates. THROAT: No erythema or exudates. NECK: No masses, no JVD. CHEST: No chest wall deformity. LUNGS: Diminished air entry,diminished breath sounds with minimal scattered rhonchi, no wheezes CVS: S1 and S2 normal with no audible murmur, regular rhythm. ABDOMEN: No hepatosplenomegaly, normal bowel sounds, no guarding or rigidity. SPINE: No scoliosis or deformity SKIN: No rashes CENTRAL NERVOUS SYSTEM: No focal deficits, tone is normal in all 4 extremities. EXTREMITIES: There is no peripheral edema. No clubbing, no cyanosis. Peripheral pulses are intact. Results CBC & Chem 7: 02/28/20 09:04 02/28/20 09:04 Labs: Abnormal Lab Results - Last 24 Hours (Table) 02/27/20 02/27/20 02/28/20 Range/Units 19:33 19:33 06:33 Lymphocytes # (1.0-4.8) k/uL Eosinophils # 0.8 H (0-0.7) k/uL Sodium 134 L (137-145) mmol/L Glucose (74-99) mg/dL POC Glucose (mg/dL) 148 H (75-99) mg/dL Calcium 10.3 H (8.4-10.2) mg/dL 02/28/20 02/28/20 Range/Units 09:04 09:04 Lymphocytes # 0.6 L (1.0-4.8) k/uL Eosinophils # (0-0.7) k/uL Sodium 131 L (137-145) mmol/L Glucose 242 H (74-99) mg/dL POC Glucose (mg/dL) (75-99) mg/dL Calcium (8.4-10.2) mg/dL Chest x-ray: report reviewed Thrombosis Risk Factor Assmnt - DVT/VTE Prophylaxis DVT/VTE Prophylaxis: Pharmacologic Prophylaxis ordered (remains on Eliquis) Assessment and Plan (1) COPD with acute exacerbation Current Visit: Yes Status: Acute Code(s): J44.1 - CHRONIC OBSTRUCTIVE PULMONARY DISEASE W (ACUTE) EXACERBATION SNOMED Code(s): 717032177 (2) Acute exacerbation of chronic obstructive airways disease Current Visit: No Status: Acute Code(s): J44.1 - CHRONIC OBSTRUCTIVE PU LMONARY DISEASE W (ACUTE) EXACERBATION SNOMED Code(s): 005760563 (3) Atrial fibrillation Current Visit: No Status: Acute Code(s): I48.91 - UNSPECIFIED ATRIAL FIBRILLATION SNOMED Code(s): 84504809 (4) Hypoxia Current Visit: No Status: Acute Code(s): R09.02 - HYPOXEMIA SNOMED Code(s): 742306529 (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 Current Visit: No Status: Acute Code(s): Z79.01 - WHEEL INSPECTOR (CURRENT) USE OF ANTICOAGULANTS SNOMED Code(s): 670766932 (6) Nicotine dependence Current Visit: No Status: Acute Code(s): F17.200 - NICOTINE DEPENDENCE, UNSPECIFIED, UNCOMPLICATED SNOMED Code(s): 75089789 (7) Tobacco abuse counseling Current Visit: No Status: Acute Code(s): Z71.6 - TOBACCO ABUSE COUNSELING SNOMED Code(s): 111831998 (8) BPH (benign prostatic hyperplasia) Current Visit: Yes Status: Acute Code(s): N40.0 - BENIGN PROSTATIC HYPERPLASIA WITHOUT LOWER URINRY TRACT SYMP SNOMED Code(s): 341919996 (9) Chronic low back pain Current Visit: Yes Status: Acute Code(s): M54.5 - LOW BACK PAIN; G89.29 - OTHER CHRONIC PAIN SNOMED Code(s): 169205112 Plan: patient is much improved. Now back to baseline He will continue on current meds will review pulmonology recommendations possible D/C today
--- NOTE | 2020-02-28 13:53 | CONS ---
CONSULTATION PULMONARY/CRITICAL CARE CONSULTATION NOTE: DATE OF SERVICE: February 28, 2020 HISTORY OF PRESENT ILLNESS: This is a 74-year-old gentleman, well known to our service. He has a history of COPD and pulmonary fibrosis. The patient has had frequent admissions to the hospital both in 2019 and also 2019. In 2019, he was admitted 7 times and this is his sixth admission this year. He was admitted last in December. I saw him at that time in consultation. He comes in with typical complaints of increasing shortness of breath, chest congestion, cough, wheezing. He denies any fever or chills. He coughs up a small amount of phlegm. 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 His primary care physician is Dr. Ortega. He apparently is already telling the nurse that he wants to be discharged home. He is resting comfortably in his chair. He is not on any supplemental oxygen. He has no evidence of any respiratory distress. There is no audible wheezing, use of accessory muscles or conversational dyspnea. MEDICATIONS: Home medications are reviewed. He is on Flomax, Eliquis, Lopressor, vitamin D2, Proscar, Incruse Ellipta, Tylenol, calcium, albuterol inhaler, Fosamax, Metamucil, [place] and DuoNeb. He has also been on Symbicort. ALLERGIES: Include IVP DYE and LATEX. MEDICAL HISTORY: COPD, pneumonia, BPH, atrial fibrillation, chronic bronchitis, pulmonary nodules with negative PET scan, BPH, constipation, vertigo, and chronic low back pain. He also has degenerative disc disease, and suffers from some pulmonary fibrosis as well. SURGICAL HISTORY: Includes bilateral cataract surgery and colonoscopy, lens implants, kyphoplasty at least at 2 levels and previous back surgery. SOCIAL HISTORY: Positive for ongoing tobacco use. He smokes half a pack to a full pack a day. He has been smoking for over 50 years. He denies any alcohol use or illicit drug use. FAMILY HISTORY: Positive for mother with atrial fibrillation and dementia in a father with a history of myocardial infarction. REVIEW OF SYSTEMS: CONSTITUTIONAL negative. NEUROLOGIC negative. HEENT negative. CARDIOVASCULAR negative. PULMONARY shortness of breath, chest tightness, wheezing, cough, chest congestion, and minimal phlegm production. He denies any fever or chills. GI negative. negative. RHEUMATOLOGIC negative. IMMUNOLOGIC negative. ENDOCRINOLOGIC negative. DERMATOLOGIC negative. PHYSICAL EXAMINATION: VITAL SIGNS: Current vital signs are reviewed. Temperature is 97.7. Heart rate 85, respiratory rate 20. Blood pressure 129/66, mean 87. Room-air saturation 93%. GENERAL: Appears in no acute distress. HEENT are examination is grossly unremarkable. He is not wearing any supplemental oxygen. NECK: Supple. Full range of motion. No adenopathy. Neck veins are flat. CARDIOVASCULAR: Examination reveals regular rhythm and rate. Heart rate 80. S1, S2 normal. No murmur. LUNGS: Reveal inspiratory and expiratory wheezes. A few scattered rhonchi. There are some mild basilar crackles. Breath sounds equal bilaterally but diminished throughout. ABDOMEN: Soft. Bowel sounds are heard. EXTREMITIES are intact. No edema, cyanosis or clubbing. SKIN: Without rash. NEUROLOGIC: Examination is brief but nonfocal. LABORATORY DATA: White count 6.3, hemoglobin 14.3, hematocrit 41.7, platelet count 199,000, sodium 131, potassium 4.7, chloride 100, CO2 23, anion gap is 8. BUN and creatinine were 19 and 0.84. Influenza A and B testing were negative. COVID-19 testing was negative and testing for respiratory syncytial virus was negative. Troponins were negative as well. Microbiology is currently negative. Chest x-ray shows changes of COPD and he has findings of interstitial lung disease/pulmonary fibrosis. This is confirmed on a CT scan done 2019. Current medications are reviewed. He is on Tylenol, Eliquis, Symbicort, Tums, vitamin D2, Proscar, [place], DuoNeb, magnesium replacement, Solu-Medrol, metoprolol, Narcan, and Flomax. ASSESSMENT: 1. Chronic obstructive pulmonary disease exacerbation in a patient with chronic chronic obstructive pulmonary disease, and multiple hospital admissions including 6 thus far this year and 7 admissions in 2019. Typically these chronic obstructive pulmonary disease exacerbations are complicated by purulent tracheobronchitis, without patricia pneumonia. 2. Mild pulmonary fibrosis. 3. Ongoing tobacco use with nicotine addiction. 4. History of atrial fibrillation. 5. Benign prostatic hypertrophy. 6. Chronic bronchitis. 7. Chronic back pain, status post kyphoplasty. 8. Prior history of pneumonia. 9. Pulmonary nodule with negative PET scan. 10.Chronic constipation. 11.Vertigo. 12.Degenerative disc disease. PLAN: Currently, the patient is on appropriate medications. He apparently is asking the nurse to be discharged already. That will be up to the primary. From my perspective, it is fine. He could be discharged home on a prednisone burst and taper. He normally takes 10 mg a day. I would typically start with 40 or 50 mg and taper every 5th day by 10 mg. I would likely give him a short course of oral antibiotic as well. No additional recommendations are made. Prognosis is guarded. He should follow up with his primary doctor and also Dr. 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 MMODL / IJN: [id number] /
--- NOTE | 2020-02-28 14:06 | P.DS ---
Providers Date of admission: 02/27/20 21:53 Expected date of discharge: 02/28/20 Attending physician: Jeremiah Ortega Consults: 02/27/20 21:56 Consult Physician Urgent Consulting Provider: Flakita Arvizu Consult Reason/Comments: acute copd exacerbation Do you want consulting provider notified?: Yes Primary care physician: Fernando Lambert - Discharge Diagnosis(es) (1) COPD with acute exacerbation Current Visit: Yes Status: Acute (2) Acute exacerbation of chronic obstructive airways disease Current Visit: No Status: Acute (3) Atrial fibrillation Current Visit: No Status: Acute (4) Hypoxia Current Visit: No Status: Acute (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 presented to the ER with complaints of worsening dyspnea 3 days, nonproductive cough. Denies chest pain, palpitations. Denies fever or chills. No hemoptysis. Minimal nonproductive cough. Denies lightheadedness, dizziness or focal deficits. Denies nausea vomiting or diarrhea. Denies syncope. Chest x-ray reporting pulmonary interstitial infiltrates related to interstitial fibrosis, EKG reporting sinus Rhythm Afebrile, normal WBC. Hematology, coagulation, chemistry panels unremarkable with the exception of sodium 131. Respiratory rate in the 20s on admission, maintaining O2 sats in the 90s on room air, needed BIPAP intinally. Currently patient is back to baseline and Pulmonology has already seen him. No new recommendations He was cleared by Pulmonology and ARX for Prednisone was sent. Patient Condition at Discharge: Stable Plan - Discharge Summary Discharge Rx Participant: Yes New Discharge Prescriptions: New predniSONE 10 mg PO DAILY #30 tab Continue Tamsulosin HCl [Flomax] 0.4 mg PO BID Apixaban [Eliquis] 5 mg PO BID Metoprolol Tartrate [Lopressor] 50 mg PO BID Finasteride [Proscar] 5 mg PO DAILY Ergocalciferol [Vitamin D2 (DRISDOL)] 50,000 unit PO TU Calcium Carbonate [Calcium] 600 mg PO DAILY Acetaminophen [Tylenol] 650 mg PO Q6H PRN PRN Reason: PAIN/FEVER Albuterol Inhaler [Ventolin Hfa Inhaler] 2 puff INHALATION RT-Q6H PRN PRN Reason: Shortness Of Breath Alendronate Sodium [Fosamax] 70 mg PO GROVES Budesonide-Formot 160-4.5 Mcg [Symbicort 160-4.5 Mcg Inhaler] 2 puff INHALATION RT-BID puff Psyllium Husk [Metamucil] 0.8 gm PO DAILY HYDROcodone/APAP 5-325MG [[place] 5-325] 1 tab PO Q6H PRN PRN Reason: Pain Ipratropium-Albuterol Nebulize [Duoneb 0.5 mg-3 mg/3 ml Soln] 3 ml INHALATION RT-QID Umeclidinium [place] [Incruse Ellipta] 1 puff INHALATION RT-DAILY 30 Days #1 device Discharge Medication List Tamsulosin HCl [Flomax] 0.4 mg PO BID 03/24/18 [History] Apixaban [Eliquis] 5 mg PO BID 09/14/18 [History] Metoprolol Tartrate [Lopressor] 50 mg PO BID 02/04/19 [History] Ergocalciferol [Vitamin D2 (DRISDOL)] 50,000 unit PO 05/05/19 [History] Finasteride [Proscar] 5 mg PO DAILY 05/05/19 [History] Acetaminophen [Tylenol] 650 mg PO Q6H PRN 06/06/19 [History] Calcium Carbonate [Calcium] 600 mg PO DAILY 06/06/19 [History] Albuterol Inhaler [Ventolin Hfa Inhaler] 2 puff INHALATION RT-Q6H PRN 08/21/19 [History] Alendronate Sodium [Fosamax] 70 mg PO GROVES 08/21/19 [History] Budesonide-Formot 160-4.5 Mcg [Symbicort 160-4.5 Mcg Inhaler] 2 puff INHALATION RT-BID puff 10/08/19 [Rx] Psyllium Husk [Metamucil] 0.8 gm PO DAILY 10/28/19 [History] HYDROcodone/APAP 5-325MG [[place] 5-325] 1 tab PO Q6H PRN 12/20/19 [History] Ipratropium-Albuterol Nebulize [Duoneb 0.5 mg-3 mg/3 ml Soln] 3 ml INHALATION RT-QID 02/27/20 [History] Umeclidinium [place] [Incruse Ellipta] 1 puff INHALATION RT-DAILY 30 Days #1 device 02/28/20 [Rx] predniSONE 10 mg PO DAILY #30 tab 02/28/20 [Rx] Follow up Appointment(s)/Referral(s): Flakita Arvizu MD [STAFF PHYSICIAN] - 1 Week Fernando Lambert Jr, DO [Primary Care Provider] - 1-2 days
[2020-02-28 15:27] VITALS: PULSE 80
[2020-03-01] MEDS ORDERED: ERGOCALCIFEROL 50,000 UNIT CAP PO SCH (09:00)
== END 2020-02-28 15:55 | disposition home or self-care (01) | DRG 192 ==
LOC: EC 19:05 → 3SCARD 21:53
PROVIDERS: ADMIT Family Medicine; ATTEND Family Medicine
PROC: 5A09357 Assistance with Respiratory Ventilation, Less than 24 Consecutive Hours, Continuous Positive Airway Pressure (ICD-10-PCS; principal; 2020-02-27)
DX: J44.1 Chronic obstructive pulmonary disease with (acute) exacerbation (principal); I48.0 Paroxysmal atrial fibrillation; N40.0 Benign prostatic hyperplasia without lower urinary tract symptoms; J84.10 Pulmonary fibrosis, unspecified; K59.09 Other constipation; F17.210 Nicotine dependence, cigarettes, uncomplicated; Z96.1 Presence of intraocular lens; G89.29 Other chronic pain; M54.5 Low back pain; Z20.828 Contact with and (suspected) exposure to other viral communicable diseases; J20.9 Acute bronchitis, unspecified; R42 Dizziness and giddiness; Z79.899 Other long term (current) drug therapy; Z79.83 Long term (current) use of bisphosphonates; Z79.51 Long term (current) use of inhaled steroids; Z79.01 Long term (current) use of anticoagulants; Z91.041 Radiographic dye allergy status; Z91.040 Latex allergy status; Z87.01 Personal history of pneumonia (recurrent); Z82.49 Family history of ischemic heart disease and other diseases of the circulatory system; Z98.42 Cataract extraction status, left eye; Z98.41 Cataract extraction status, right eye; Z98.890 Other specified postprocedural states; Z81.8 Family history of other mental and behavioral disorders
CPT/HCPCS: 36415; 71045; 80048; 80053; 83605; 83880; 84484; 85025; 85610; 85730; 87636; 93005; 94640; 94660; 96365; 96375; 99285

== ENCOUNTER 2020-03-24 16:35 | Observation (INO) | payer MEDICARE, OTHER ==
[2020-03-24] MEDS ORDERED: methylPREDNISolone SOD SUCCI 125 MG/2 ML VIAL IV STA (17:09)
[2020-03-24] MEDS ORDERED: IPRATROPIUM-ALBUTEROL 3 ML NEB INHALATION STA (17:09)
--- NOTE | 2020-03-24 17:23 | ED ---
SOB HPI - General Chief Complaint: Shortness of Breath Stated Complaint: KEERTHI Time Seen by Provider: 03/24/20 17:00 Source: patient, RN notes reviewed, old records reviewed Mode of arrival: ambulatory Limitations: no limitations - History of Present Illness Initial Comments: This is a 74-year-old male with a history of COPD who states he had the onset la st evening and shortness of breath which is now refractory to his home medication. He states he's been using his inhalers more and more without any success. He denies any overt chest pain fevers chills nausea vomiting sweats he does state he has increased edema to his lower extremities. No other complaints or modifying factors at this time MD Complaint: shortness of breath - Related Data Home Medications Medication Instructions Recorded Confirmed Tamsulosin HCl [Flomax] 0.4 mg PO BID 03/24/18 02/27/20 Apixaban [Eliquis] 5 mg PO BID 09/14/18 02/27/20 Metoprolol Tartrate [Lopressor] 50 mg PO BID 02/04/19 02/27/20 Ergocalciferol [Vitamin D2 50,000 unit PO TU 05/05/19 02/27/20 (DRISDOL)] Finasteride [Proscar] 5 mg PO DAILY 05/05/19 02/27/20 Acetaminophen [Tylenol] 650 mg PO Q6H PRN 06/06/19 02/27/20 Calcium Carbonate [Calcium] 600 mg PO DAILY 06/06/19 02/27/20 Albuterol Inhaler [Ventolin Hfa 2 puff INHALATION RT-Q6H PRN 08/21/19 02/27/20 Inhaler] Alendronate Sodium [Fosamax] 70 mg PO GROVES 08/21/19 02/27/20 Psyllium Husk [Metamucil] 0.8 gm PO DAILY 10/28/19 02/27/20 HYDROcodone/APAP 5-325MG [[place] 1 tab PO Q6H PRN 12/20/19 02/27/20 5-325] Ipratropium-Albuterol Nebulize 3 ml INHALATION RT-QID 02/27/20 02/27/20 [Duoneb 0.5 mg-3 mg/3 ml Soln] Previous Rx's Medication Instructions Recorded Budesonide-Formot 160-4.5 Mcg 2 puff INHALATION RT-BID puff 10/08/19 [Symbicort 160-4.5 Mcg Inhaler] Umeclidinium [place] [Incruse 1 puff INHALATION RT-DAILY 30 Days 02/28/20 Ellipta] #1 device predniSONE 10 mg PO DAILY #30 tab 02/28/20 Allergies Allergy/AdvReac Type Severity Reaction Status Date / Time Iodinated Contrast Media Allergy Rash/Hives Verified 03/24/20 20:16 [Iodinated Contrast- Oral and IV Dye] latex Allergy Rash/Hives Verified 03/24/20 20:16 Review of Systems ROS Statement: Those systems with pertinent positive or pertinent negative responses have been documented in the HPI. ROS Other: All systems not noted in ROS Statement are negative. Past Medical History Past Medical History: Atrial Fibrillation, COPD, Pneumonia, Prostate Disorder Additional Past Medical History / Comment(s): Paroxysmal Afib, bronchitis, pulmonary nodules/negative pet scan, BPH, constipation, vertigo, chronic low back pain/DDD. History of Any Multi-Drug Resistant Organisms: None Reported Past Surgical History: Back Surgery Additional Past Surgical History / Comment(s): Bilateral cataract removals-lens implants, colonoscopy, multiple kyphoplasties. Past Anesthesia/Blood Transfusion Reactions: No Reported Reaction Additional Past Anesthesia/Blood Transfusion Reaction / Comment(s): Has never received any blood transfusions. Past Psychological History: No Psychological Hx Reported Smoking Status: Current every day smoker Past Alcohol Use History: None Reported Past Drug Use History: None Reported - Past Family History Mother Family Medical History: AFIB, Dementia Father Family Medical History: Myocardial Infarction ([place]) Additional Family Medical History / Comment(s): in his 70's from [place] General Exam - General Exam Comments Initial Comments: This is a well-developed well-nourished awake alert oriented 3 male Limitations: no limitations General appearance: alert, in no apparent distress Head exam: Present: atraumatic, normocephalic, normal inspection Eye exam: Present: normal appearance, PERRL, EOMI. Absent: scleral icterus, conjunctival injection, periorbital swelling ENT exam: Present: normal exam, mucous membranes moist Neck exam: Present: normal inspection, full ROM, other. Absent: tenderness, meningismus, lymphadenopathy Respiratory exam: Present: wheezes, accessory muscle use, decreased breath sounds (No stridor JVD or bruits). Absent: respiratory distress, rales, rhonchi, stridor Cardiovascular Exam: Present: normal rhythm, normal heart sounds. Absent: systolic murmur, diastolic murmur, rubs, gallop, clicks GI/Abdominal exam: Present: soft, normal bowel sounds. Absent: distended, tenderness, guarding, rebound, rigid Extremities exam: Present: full ROM, normal capillary refill, pedal edema. Absent: tenderness, joint swelling, calf tenderness Back exam: Present: normal inspection Neurological exam: Present: alert, oriented X3, CN II-XII intact Psychiatric exam: Present: normal affect, normal mood Skin exam: Present: warm, dry, intact, normal color. Absent: rash Course Vital Signs 03/24/20 03/24/20 03/24/20 16:56 17:12 17:22 Temperature 98.3 F 97.9 F 98.1 F Pulse Rate 107 H 68 96 Respiratory 20 16 20 Rate Blood Pressure 112/65 118/78 112/72 O2 Sat by Pulse 91 L 98 93 L Oximetry 03/24/20 03/24/20 03/24/20 17:47 17:59 18:54 Temperature 98.0 F Pulse Rate 96 96 88 Respiratory 18 Rate Blood Pressure 110/67 O2 Sat by Pulse 94 L Oximetry Medical Decision Making - Medical Decision Making I did reevaluate patient several occasions he is feeling somewhat better but he desaturates with conversation and minor movements. He does still demonstrate diminished breath sounds especially on the left some wheezing noted on the right this is after IV steroids and reading treatments. I did discuss this with him and his family patient be admitted the case was discussed with Dr. Ortega. - Lab Data Result diagrams: 03/24/20 17:16 03/24/20 17:16 Lab Results 03/24/20 03/24/20 03/24/20 Range/Units 17:16 17:16 17:16 WBC 7.1 (3.8-10.6) k/uL RBC 4.51 (4.30-5.90) m/uL Hgb 14.9 (13.0-17.5) gm/dL Hct 42.0 (39.0-53.0) % MCV 93.0 (80.0-100.0) fL MCH 33.0 (25.0-35.0) pg MCHC 35.5 (31.0-37.0) g/dL RDW 12.1 (11.5-15.5) % Plt Count 201 (150-450) k/uL MPV 7.7 Neutrophils % 59 % Lymphocytes % 19 % Monocytes % 8 % Eosinophils % 10 % Basophils % 2 % Neutrophils # 4.2 (1.3-7.7) k/uL Lymphocytes # 1.3 (1.0-4.8) k/uL Monocytes # 0.6 (0-1.0) k/uL Eosinophils # 0.7 (0-0.7) k/uL Basophils # 0.1 (0-0.2) k/uL PT 10.7 (9.0-12.0) sec INR 1.0 (<1.2) APTT 24.3 (22.0-30.0) sec Sodium 134 L (137-145) mmol/L Potassium 4.1 (3.5-5.1) mmol/L Chloride 103 (98-107) mmol/L Carbon Dioxide 26 (22-30) mmol/L Anion Gap 5 mmol/L BUN 21 H (9-20) mg/dL Creatinine 0.87 (0.66-1.25) mg/dL Est GFR (CKD-EPI)AfAm >90 (>60 ml/min/1.73 sqM) Est GFR (CKD-EPI)NonAf 85 (>60 ml/min/1.73 sqM) Glucose 92 (74-99) mg/dL Plasma Lactic Acid [place] (0.7-2.0) mmol/L Calcium 9.7 (8.4-10.2) mg/dL Magnesium 1.8 (1.6-2.3) mg/dL Total Bilirubin 0.7 (0.2-1.3) mg/dL AST 22 (17-59) U/L ALT 17 (4-49) U/L Alkaline Phosphatase 93 (38-126) U/L Creatine Kinase 70 (55-170) U/L Troponin I (0.000-0.034) ng/mL NT-Pro-B Natriuret Pep pg/mL Total Protein 6.5 (6.3-8.2) g/dL Albumin 3.9 (3.5-5.0) g/dL 03/24/20 03/24/20 03/24/20 Range/Units 17:16 17:16 17:16 WBC (3.8-10.6) k/uL RBC (4.30-5.90) m/uL Hgb (13.0-17.5) gm/dL Hct (39.0-53.0) % MCV (80.0-100.0) fL MCH (25.0-35.0) pg MCHC (31.0-37.0) g/dL RDW (11.5-15.5) % Plt Count (150-450) k/uL MPV Neutrophils % % Lymphocytes % % Monocytes % % Eosinophils % % Basophils % % Neutrophils # (1.3-7.7) k/uL Lymphocytes # (1.0-4.8) k/uL Monocytes # (0-1.0) k/uL Eosinophils # (0-0.7) k/uL Basophils # (0-0.2) k/uL PT (9.0-12.0) sec INR (<1.2) APTT (22.0-30.0) sec Sodium (137-145) mmol/L Potassium (3.5-5.1) mmol/L Chloride (98-107) mmol/L Carbon Dioxide (22-30) mmol/L Anion Gap mmol/L BUN (9-20) mg/dL Creatinine (0.66-1.25) mg/dL Est GFR (CKD-EPI)AfAm (>60 ml/min/1.73 sqM) Est GFR (CKD-EPI)NonAf (>60 ml/min/1.73 sqM) Glucose (74-99) mg/dL Plasma Lactic Acid Asnti 1.2 (0.7-2.0) mmol/L Calcium (8.4-10.2) mg/dL Magnesium (1.6-2.3) mg/dL Total Bilirubin (0.2-1.3) mg/dL AST (17-59) U/L ALT (4-49) U/L Alkaline Phosphatase (38-126) U/L Creatine Kinase (55-170) U/L Troponin I <0.012 (0.000-0.034) ng/mL NT-Pro-B Natriuret Pep 77 pg/mL Total Protein (6.3-8.2) g/dL Albumin (3.5-5.0) g/dL - Radiology Data Radiology results: report reviewed (Imaging reviewed no acute findings chronic changes seen), image reviewed Disposition Clinical Impression: COPD with acute exacerbation, Acute respiratory distress syndrome in adult Disposition: ADMITTED IP TO THIS HOSP Condition: Fair Referrals: Fernando Lambert Jr, [Primary Care Provider] - 1-2 days
[2020-03-24 17:36] LABS: Basophils # (A) 0.1 k/uL (0-0.2); Basophils % (A) 2 %; Eosinophils # (A) 0.7 k/uL (0-0.7); Eosinophils % (A) 10 %; HGB 14.9 gm/dL (13.0-17.5); Lymphocytes # (A) 1.3 k/uL (1.0-4.8); Lymphocytes % (A) 19 %; MCHC 35.5 g/dL (31.0-37.0); Mean Platelet Volume 7.7; Monocytes # (A) 0.6 k/uL (0-1.0); Monocytes % (A) 8 %; Neutrophils # (A) 4.2 k/uL (1.3-7.7); Neutrophils % (A) 59 %; Platelet Count 201 k/uL (150-450); RBC 4.51 m/uL (4.30-5.90); RDW 12.1 % (11.5-15.5); WBC 7.1 k/uL (3.8-10.6)
[2020-03-24 17:47] LABS: Partial Thromboplastin Time 24.3 sec (22.0-30.0); Prothrombin Time 10.7 sec (9.0-12.0)
[2020-03-24 17:54] LABS: ALT 17 U/L (4-49); AST 22 U/L (17-59); African American GFR (CKD) >90 (>60 ml/min/1.73 sqM); Albumin 3.9 g/dL (3.5-5.0); Alkaline Phosphatase 93 U/L (38-126); Anion Gap 5 mmol/L; Blood Urea Nitrogen 21 mg/dL (9-20); Calcium 9.7 mg/dL (8.4-10.2); Carbon Dioxide 26 mmol/L (22-30); Chloride 103 mmol/L (98-107); Creatine Kinase 70 U/L (55-170); Glucose 92 mg/dL (74-99); Magnesium 1.8 mg/dL (1.6-2.3); Non-African American GFR(CKD) 85 (>60 ml/min/1.73 sqM); Potassium 4.1 mmol/L (3.5-5.1); Sodium 134 mmol/L (137-145); Total Bilirubin 0.7 mg/dL (0.2-1.3); Total Protein 6.5 g/dL (6.3-8.2)
--- NOTE | 2020-03-24 18:31 | XR ---
EXAMINATION TYPE: XR chest 2V DATE OF EXAM: 03/24/2020 COMPARISON: 02/27/2020 HISTORY: Short of breath TECHNIQUE: FINDINGS: There is some coarsening of interstitial markings. Heart size is normal. There is multileve l thoracic and lumbar vertebroplasty. There are no hilar masses. Costophrenic angles are clear. IMPRESSION: Pulmonary interstitial fibrosis. No obvious heart failure. No change compared to old exam .
[2020-03-24] MEDS ORDERED: IPRATROPIUM-ALBUTEROL 3 ML NEB INHALATION PRN (20:50)
[2020-03-24] MEDS: SODIUM CHLORIDE 0.9% 1,000 ML IV SCH (21:18)
[2020-03-24] MEDS: IPRATROPIUM-ALBUTEROL 3 ML NEB INHALATION SCH (23:50)
[2020-03-25] MEDS ORDERED: IPRATROPIUM-ALBUTEROL 3 ML NEB INHALATION SCH
[2020-03-25] MEDS: methylPREDNISolone SOD SUCCI 125 MG/2 ML VIAL IV SCH ×3 (00:23→11:51)
[2020-03-25] MEDS: SODIUM CHLORIDE 0.9% 1,000 ML IV SCH ×2 (06:00→07:56)
[2020-03-25] MEDS: IPRATROPIUM-ALBUTEROL 3 ML NEB INHALATION SCH ×3 (07:50→15:24)
[2020-03-25 07:54] VITALS: BP 126/74; RESP 18; TEMP 97.4
[2020-03-25] MEDS ORDERED: LEVOFLOXACIN 500 MG TAB PO SCH (09:00)
[2020-03-25 10:30] LABS: Basophils % (A) 0 %; Eosinophils % (A) 0 %; HCT 41.2 % (39.0-53.0); HGB 14.3 gm/dL (13.0-17.5); Lymphocytes # (A) 0.5 k/uL (1.0-4.8); Lymphocytes % (A) 8 %; MCHC 34.7 g/dL (31.0-37.0); MCV 94.9 fL (80.0-100.0); Mean Platelet Volume 7.7; Monocytes # (A) 0.1 k/uL (0-1.0); Monocytes % (A) 2 %; Neutrophils # (A) 5.3 k/uL (1.3-7.7); Neutrophils % (A) 89 %; Platelet Count 188 k/uL (150-450); RBC 4.33 m/uL (4.30-5.90); RDW 12.2 % (11.5-15.5); WBC 5.9 k/uL (3.8-10.6)
[2020-03-25 10:39] LABS: African American GFR (CKD) >90 (>60 ml/min/1.73 sqM); Anion Gap 6 mmol/L; Blood Urea Nitrogen 18 mg/dL (9-20); Calcium 8.9 mg/dL (8.4-10.2); Carbon Dioxide 26 mmol/L (22-30); Chloride 104 mmol/L (98-107); Glucose 167 mg/dL (74-99); Magnesium 1.8 mg/dL (1.6-2.3); Non-African American GFR(CKD) 90 (>60 ml/min/1.73 sqM); Sodium 136 mmol/L (137-145)
[2020-03-25 11:20] VITALS: PULSE 96
[2020-03-25] MEDS ORDERED: CALCIUM CARBONATE 500 MG CHEWABLE PO SCH (11:45)
[2020-03-25] MEDS ORDERED: APIXABAN 5 MG TAB PO SCH (11:45)
[2020-03-25] MEDS ORDERED: TAMSULOSIN 0.4 MG CAP.ER.24H PO SCH (11:45)
[2020-03-25] MEDS ORDERED: METOPROLOL TARTRATE 50 MG TAB PO SCH (11:45)
[2020-03-25] MEDS ORDERED: FINASTERIDE 5 MG TAB PO SCH (11:45)
--- NOTE | 2020-03-25 12:53 | P.CNPUL ---
History of Present Illness Consult date: 03/25/20 Reason for consult: dyspnea Chief complaint: Dyspnea History of present illness: 74-year-old white male patient who follows with Dr. Qi Saez in the pulmonary office for his history of COPD, not on home oxygen, chronic smoker, with the past medical history of atrial fibrillation on Eliquis, chronic low back pain. Baseline FEV1 is 53% of predicted, and patient is maintained on Symbicort, Inkruse Ellipta, and Albuterol. For the past 2 days patient has been having increased shortness of breath, but denied any fever or chills, no cough or congestion, no nausea vomiting or diarrhea, no abdominal pain, he states he noticed some mildly increased swelling in his lower extremities. No chest pain, no palpitations. Patient continues to smoke, he also recently had his in the long term on 03/06/2020 of COVID 19. He states he was able to go in to see your in the last 2 days of her life. Chest x-ray showed pulmonary interstitial fibrosis, with no obvious heart failure. No change compared to his last chest x-ray on 02/27/2020. EKG showed normal sinus rhythm. CBC was within normal limits, clinically patient profile was within normal limits, sodium is 134, serum electrolytes were unremarkable, BUN is 21 creatinine 0.87, lactic acid is 1.2, LFTs were within normal limits, proBNP was 77, troponin was less than 0.012, rapid coronavirus PCR was negative. Patient was started on breathing treatments, IV Solu-Medrol, IV fluids with 0.9 normal saline at a rate of 100 per hour, he is feeling much better today, his clinical examination his lung sounds are diminished, with no wheezing or rhonchi. His bilateral lower extremities are without any evidence of swelling. He was started on oral Levaquin 500 mg daily. Patient is requesting to go home today. Review of Systems All systems: negative Constitutional: Denies chills, Denies fever Eyes: denies blurred vision, denies pain Ears, nose, mouth and throat: Denies headache, Denies sore throat Cardiovascular: Denies chest pain, Denies shortness of breath Respiratory: Reports dyspnea, Reports respiratory infections, Denies cough Gastrointestinal: Denies abdominal pain, Denies diarrhea, Denies nausea, Denies vomiting Musculoskeletal: Denies myalgias Integumentary: Denies pruritus, Denies rash Neurological: Denies numbness, Denies weakness Psychiatric: Denies anxiety, Denies depression Endocrine: Denies fatigue, Denies weight change Past Medical History Past Medical History: Atrial Fibrillation, COPD, Pneumonia, Prostate Disorder Additional Past Medical History / Comment(s): Paroxysmal Afib, bronchitis, pulmonary nodules/negative pet scan, BPH, constipation, vertigo, chronic low back pain/DDD. History of Any Multi-Drug Resistant Organisms: None Reported Past Surgical History: Back Surgery Additional Past Surgical History / Comment(s): Bilateral cataract removals-lens implants, colonoscopy, multiple kyphoplasties. Past Anesthesia/Blood Transfusion Reactions: No Reported Reaction Additional Past Anesthesia/Blood Transfusion Reaction / Comment(s): Has never received any blood transfusions. Past Psychological History: No Psychological Hx Reported Additional Psychological History / Comment(s): Pt resides with his son, Nicolle). They live in a downstairs apartment. Pt manages his own medications. He has a nebulizer. His son cooks and drives pt to [employer]. recently passed mar.06. Smoking Status: Current every day smoker Past Alcohol Use History: None Reported Additional Past Alcohol Use History / Comment(s): Pt started smoking age [age]) got up to 5 ppd for many years then cut down to 3 ppd, currently smoking a ppd or alittle more if his back is hurting. Past Drug Use History: None Reported - Past Family History Mother Family Medical History: AFIB, Dementia Father Family Medical History: Myocardial Infarction ([place]) Additional Family Medical History / Comment(s): in his 70's [place] Medications and Allergies Home Medications Medication Instructions Recorded Confirmed Type Tamsulosin HCl [Flomax] 0.4 mg PO BID 03/24/18 03/24/20 History Apixaban [Eliquis] 5 mg PO BID 09/14/18 03/24/20 History Metoprolol Tartrate [Lopressor] 50 mg PO BID 02/04/19 03/24/20 History Ergocalciferol [Vitamin D2 50,000 unit PO TU 05/05/19 03/24/20 History (DRISDOL)] Finasteride [Proscar] 5 mg PO DAILY 05/05/19 03/24/20 History Acetaminophen [Tylenol] 650 mg PO Q6H PRN 06/06/19 03/24/20 History Calcium Carbonate [Calcium] 600 mg PO DAILY 06/06/19 03/24/20 History Albuterol Inhaler [Ventolin Hfa 2 puff INHALATION RT-Q6H PRN 08/21/19 03/24/20 History Inhaler] Alendronate Sodium [Fosamax] 70 mg PO GROVES 08/21/19 03/24/20 History Budesonide-Formot 160-4.5 Mcg 2 puff INHALATION RT-BID puff 10/08/19 03/24/20 Rx [Symbicort 160-4.5 Mcg Inhaler] Psyllium Husk [Metamucil] 0.8 gm PO DAILY 10/28/19 03/24/20 History HYDROcodone/APAP 5-325MG [[place] 1 tab PO Q6H PRN 12/20/19 03/24/20 History 5-325] Ipratropium-Albuterol Nebulize 3 ml INHALATION RT-QID 02/27/20 03/24/20 History [Duoneb 0.5 mg-3 mg/3 ml Soln] Umeclidinium [place] [Incruse 1 puff INHALATION RT-DAILY 30 Days 02/28/20 03/24/20 Rx Ellipta] #1 device Allergies Allergy/AdvReac Type Severity Reaction Status Date / Time Iodinated Contrast Media Allergy Rash/Hives Verified 03/24/20 20:16 [Iodinated Contrast- Oral and IV Dye] latex Allergy Rash/Hives Verified 03/24/20 20:16 Physical Exam Vitals: Vital Signs Temp Pulse Pulse Resp BP BP Pulse Ox 03/25/20 11:20 96 03/25/20 11:13 88 03/25/20 08:01 92 03/25/20 07:53 90 03/25/20 07:47 97.4 F L 83 18 126/74 92 L 03/25/20 04:19 89 03/25/20 04:08 89 03/25/20 00:02 91 03/24/20 23:50 91 97 03/24/20 21:45 98.1 F 105 H 16 144/81 91 L 03/24/20 20:43 98.1 F 105 H 16 144/81 91 L 03/24/20 18:54 98.0 F 88 18 110/67 94 L 03/24/20 17:59 96 03/24/20 17:47 96 03/24/20 17:22 98.1 F 96 20 112/72 93 L 03/24/20 17:12 97.9 F 68 16 118/78 98 03/24/20 16:56 98.3 F 107 H 20 112/65 91 L Intake and Output 03/24/20 03/25/20 03/25/20 22:59 06:59 14:59 Intake Total 1200 Balance 1200 Intake: Intake, IV Titration 1200 Amount Sodium Chloride 0.9% 1, 1200 000 ml @ 100 mls/hr IV . Q10H [facility] Rx#:[id number] Other: # Voids 2 Weight 70.307 kg GENERAL EXAM: Alert, very pleasant, 74-year-old white male, on room air, pulse ox of 92-97% comfortable in no apparent distress. HEAD: Normocephalic/atraumatic. EYES: Normal reaction of pupils, equal size. Conjunctiva pink, sclera white. NOSE: Clear with pink turbinates. THROAT: No erythema or exudates. NECK: No masses, no JVD, no thyroid enlargement, no adenopathy. CHEST: No chest wall deformity. Symmetrical expansion. LUNGS: Equal air entry with diminished breath sounds bilaterally, no rhonchi no wheezing CVS: Regular rate and rhythm, normal S1 and S2, no gallops, no murmurs, no rubs ABDOMEN: Soft, nontender. No hepatosplenomegaly, normal bowel sounds, no guarding or rigidity. EXTREMITIES: No clubbing, no edema, no cyanosis, 2+ pulses and upper and lower extremities. MUSCULOSKELETAL: Muscle strength and tone normal. SPINE: No scoliosis or deformity SKIN: No rashes CENTRAL NERVOUS SYSTEM: Alert and oriented -3. No focal deficits, tone is normal in all 4 extremities. PSYCHIATRIC: Alert and oriented -3. Appropriate affect. Intact judgment and insight. Results - Laboratory Findings CBC and BMP: 03/25/20 10:03 03/25/20 10:03 PT/INR, D-dimer PT 10.7 sec (9.0-12.0) 03/24/20 17:16 INR 1.0 (<1.2) 03/24/20 17:16 Abnormal lab findings: Abnormal Labs 01/21/21 01/22/21 01/22/21 17:16 10:03 10:03 Lymphocytes # 0.5 L Sodium 134 L 136 L BUN 21 H Glucose 167 H - Diagnostic Findings Chest x-ray: report reviewed, image reviewed Additional studies: EKG reviewed Assessment and Plan Plan: Assessment: #1. Acute exacerbation of chronic obstructive pulmonary disease, chest x-ray showed coarsening of the interstitial markings possibly related to pulmonary interstitial fibrosis, no acute process. COVID 19 was ruled out via rapid PCR test #2. Advanced COPD with a baseline FEV1 of 53% predicted, stage III COPD, not on home oxygen, maintain on combination of Symbicort, increased and albuterol #3. Chronic smoker, chronic and ongoing, carries 60+ years of smoking #4. Paroxysmal A. fib on Eliquis #5. BPH #6. Bilateral cataract surgery with lens implants #7. Chronic low back pain #8. Pulmonary nodules with negative PET scan #9. Hypertension Plan: Patient has significantly improved in terms of his breathing since he came in, he is on room air, his vital signs have been stable overnight, he is close to his baseline, COVID 19 PCR was ruled out, doing well, from pulmonary perspective he can be discharged home today on his maintenance inhalers Symbicort Inkruse and albuterol, he can complete prednisone taper, and complete oral Levaquin for 5 more days. Patient follow-up with Dr. Saez in the office in 7-10 days I performed a history & physical examination of the patient and discussed their management with my nurse practitioner, Coleen Worley. I reviewed the nurse practitioner's note and agree with the documented findings and plan of care. Lung sounds are positive for diminished breath sounds. The findings and the impression was discussed with the patient. I attest to the documentation by the nurse practitioner. Time with Patient: Greater than 30
--- NOTE | 2020-03-25 16:19 | P.HPIM ---
History of Present Illness H&P Date: 03/25/20 Chief Complaint: Worsening shortness of breath History and Physical and Discharge Summary This is a 74-year-old gentleman with history of paroxysmal atrial fibrillation, COPD, pulmonary nodules, back surgery, ongoing nicotine dependence-at least a [id number] smoker and multiple other medical issues. presented to the ER with complaints of worsening dyspnea 2 days, nonproductive cough. His recently from Covid 19 in the subacute rehab.Denies chest pain, palpitations. Denies fever or chills. No hemoptysis. Minimal nonproductive cough. Denies lightheadedness, dizziness or focal deficits. Denies nausea vomiting or diarrhea. Denies syncope. Chest x-ray showed pulmonary interstitial fibrosis, with no obvious heart failure. No change compared to his last chest x-ray on 02/27/2020. EKG reported normal sinus rhythm. Troponin negative. Hematology, coagulation and chemistry levels unremarkable with the exception of sodium 134-136, BUN 21. Magnesium 1.8, lactic acid 1.2. Coronavirus not detected. ProBNP 77 .Maintained on nebulized bronchodilators, steroids, BiPAP in the ER. Maintaining O2 sats in the 90s on room air. Review of Systems ROS Statement: Those systems with pertinent positive or pertinent negative responses have been documented in the HPI. ROS Other: All systems not noted in ROS Statement are negative. Past Medical History Past Medical History: Atrial Fibrillation, COPD, Pneumonia, Prostate Disorder Additional Past Medical History / Comment(s): Paroxysmal Afib, bronchitis, pulmonary nodules/negative pet scan, BPH, constipation, vertigo, chronic low back pain/DDD. History of Any Multi-Drug Resistant Organisms: None Reported Past Surgical History: Back Surgery Additional Past Surgical History / Comment(s): Bilateral cataract removals-lens implants, colonoscopy, multiple kyphoplasties. Past Anesthesia/Blood Transfusion Reactions: No Reported Reaction Additional Past Anesthesia/Blood Transfusion Reaction / Comment(s): Has never received any blood transfusions. Past Psychological History: No Psychological Hx Reported Additional Psychological History / Comment(s): Pt resides with his son, (Jt). They live in a downstairs apartment. Pt manages his own medications. He has a nebulizer. His son cooks and drives pt to [employer]. recently passed [email or web address]. Smoking Status: Current every day smoker Past Alcohol Use History: None Reported Additional Past Alcohol Use History / Comment(s): Pt started smoking age 12 (1958) got up to 5 ppd for many years then cut down to 3 ppd, currently smoking a ppd or alittle more if his back is hurting. Past Drug Use History: None Reported - Past Family History Mother Family Medical History: AFIB, Dementia Father Family Medical History: Myocardial Infarction ([place]) Additional Family Medical History / Comment(s): in his 70's [place] Medications and Allergies Home Medications Medication Instructions Recorded Confirmed Type Tamsulosin HCl [Flomax] 0.4 mg PO BID 03/24/18 03/24/20 History Apixaban [Eliquis] 5 mg PO BID 09/14/18 03/24/20 History Metoprolol Tartrate [Lopressor] 50 mg PO BID 02/04/19 03/24/20 History Ergocalciferol [Vitamin D2 50,000 unit PO TU 05/05/19 03/24/20 History (DRISDOL)] Finasteride [Proscar] 5 mg PO DAILY 05/05/19 03/24/20 History Acetaminophen [Tylenol] 650 mg PO Q6H PRN 06/06/19 03/24/20 History Calcium Carbonate [Calcium] 600 mg PO DAILY 06/06/19 03/24/20 History Albuterol Inhaler [Ventolin Hfa 2 puff INHALATION RT-Q6H PRN 08/21/19 03/24/20 History Inhaler] Alendronate Sodium [Fosamax] 70 mg PO GROVES 08/21/19 03/24/20 History Budesonide-Formot 160-4.5 Mcg 2 puff INHALATION RT-BID puff 10/08/19 03/24/20 Rx [Symbicort 160-4.5 Mcg Inhaler] Psyllium Husk [Metamucil] 0.8 gm PO DAILY 10/28/19 03/24/20 History HYDROcodone/APAP 5-325MG [[place] 1 tab PO Q6H PRN 12/20/19 03/24/20 History 5-325] Ipratropium-Albuterol Nebulize 3 ml INHALATION RT-QID 02/27/20 03/24/20 History [Duoneb 0.5 mg-3 mg/3 ml Soln] Umeclidinium [place] [Incruse 1 puff INHALATION RT-DAILY 30 Days 02/28/20 03/24/20 Rx Ellipta] #1 device Levofloxacin [Levaquin] 500 mg PO DAILY #5 tab 03/25/20 Rx predniSONE 10 mg PO DIRECTED #30 tab 03/25/20 Rx Allergies Allergy/AdvReac Type Severity Reaction Status Date / Time Iodinated Contrast Media Allergy Rash/Hives Verified 03/24/20 20:16 [Iodinated Contrast- Oral and IV Dye] latex Allergy Rash/Hives Verified 03/24/20 20:16 Physical Exam Vitals: Vital Signs Temp Pulse Pulse Resp BP BP Pulse Ox 03/25/20 11:20 96 03/25/20 11:13 88 03/25/20 08:01 92 03/25/20 07:53 90 03/25/20 07:47 97.4 F L 83 18 126/74 92 L 03/25/20 04:19 89 03/25/20 04:08 89 03/25/20 00:02 91 03/24/20 23:50 91 97 03/24/20 21:45 98.1 F 105 H 16 144/81 91 L 03/24/20 20:43 98.1 F 105 H 16 144/81 91 L 03/24/20 18:54 98.0 F 88 18 110/67 94 L 03/24/20 17:59 96 03/24/20 17:47 96 03/24/20 17:22 98.1 F 96 20 112/72 93 L 03/24/20 17:12 97.9 F 68 16 118/78 98 03/24/20 16:56 98.3 F 107 H 20 112/65 91 L Intake and Output 03/24/20 03/25/20 03/25/20 22:59 06:59 14:59 Intake Total 1200 Balance 1200 Intake: Intake, IV Titration 1200 Amount Sodium Chloride 0.9% 1, 1200 000 ml @ 100 mls/hr IV . Q10H [facility] Rx#:[id number] Other: # Voids 2 Weight 70.307 kg GENERAL EXAM: Pleasant 74-year-old gentleman. Alert, active, comfortable in no apparent distress, sitting up at bedside HEAD: Normocephalic. Atraumatic. EYES: Normal reaction of pupils, equal size. NOSE: Clear with pink turbinates. THROAT: No erythema or exudates. NECK: No masses, no JVD. CHEST: No chest wall deformity. LUNGS: Diminished air entry,diminished breath sounds with minimal scattered rhonchi, no wheezes CVS: S1 and S2 normal with no audible murmur, regular rhythm. ABDOMEN: No hepatosplenomegaly, normal bowel sounds, no guarding or rigidity. SKIN: Warm and dry, No rashes CENTRAL NERVOUS SYSTEM: No focal deficits, tone is normal in all 4 extremities. EXTREMITIES: There is no peripheral edema. No clubbing, no cyanosis. Peripheral pulses are intact. Results CBC & Chem 7: 03/25/20 10:03 03/25/20 10:03 Labs: Abnormal Lab Results - Last 24 Hours (Table) 03/24/20 03/25/20 03/25/20 Range/Units 17:16 10:03 10:03 Lymphocytes # 0.5 L (1.0-4.8) k/uL Sodium 134 L 136 L (137-145) mmol/L BUN 21 H (9-20) mg/dL Glucose 167 H (74-99) mg/dL Thrombosis Risk Factor Assmnt - Choose All That Apply Any of the Below Risk Factors Present?: Yes Each Factor Represents 1 point: Abnormal pulmonary function (COPD) Other Risk Factors: Yes Each Risk Factor Represents 2 Points: Age 61-74 years Other congenital or acquired thrombophilia - If yes, enter type in comment: No Thrombosis Risk Factor Assessment Total Risk Factor Score: 3 Thrombosis Risk Factor Assessment Level: Moderate Risk Assessment and Plan Assessment: (1) COPD with acute exacerbation Current Visit: Yes Status: Acute Code(s): J44.1 - CHRONIC OBSTRUCTIVE PULMONARY DISEASE W (ACUTE) EXACERBATION SNOMED Code(s): 552384076 (2)Nicotine dependence Current Visit: No Status: Acute Code(s): F17.200 - NICOTINE DEPENDENCE, UNSPECIFIED, UNCOMPLICATED SNOMED Code(s): 89104446 (3) Atrial fibrillation, paroxysmal, anticoagulated on Eliquis Current Visit: No Status: Acute Code(s): I48.91 - UNSPECIFIED ATRIAL FIBRILLATION SNOMED Code(s): 96398580 (4) BPH (benign prostatic hyperplasia) Current Visit: Yes Status: Acute Code(s): N40.0 - BENIGN PROSTATIC HYPERPLASIA WITHOUT LOWER URINRY TRACT SYMP SNOMED Code(s): 483616851 (5) Chronic low back pain Current Visit: Yes Status: Acute Code(s): M54.5 - LOW BACK PAIN; G89.29 - OTHER CHRONIC PAIN SNOMED Code(s): 464441012 (6) hypertension Plan: Continue current medication regime ,monitoring and symmetric. Smoking cessation reinforced. Significant clinical improvement. Evaluated and cleared by pulmonary for discharge. Patient will be discharged home today in a stable condition with guarded prognosis on steroid taper, 5 more days of Levaquin. Discharge Medication List Tamsulosin HCl [Flomax] 0.4 mg PO BID 03/24/18 [History] Apixaban [Eliquis] 5 mg PO BID 09/14/18 [History] Metoprolol Tartrate [Lopressor] 50 mg PO BID 02/04/19 [History] Ergocalciferol [Vitamin D2 (DRISDOL)] 50,000 unit PO TU 05/05/19 [History] Finasteride [Proscar] 5 mg PO DAILY 05/05/19 [History] Acetaminophen [Tylenol] 650 mg PO Q6H PRN 06/06/19 [History] Calcium Carbonate [Calcium] 600 mg PO DAILY 06/06/19 [History] Albuterol Inhaler [Ventolin Hfa Inhaler] 2 puff INHALATION RT-Q6H PRN 08/21/19 [History] Alendronate Sodium [Fosamax] 70 mg PO GROVES 08/21/19 [History] Budesonide-Formot 160-4.5 Mcg [Symbicort 160-4.5 Mcg Inhaler] 2 puff INHALATION RT-BID puff 10/08/19 [Rx] Psyllium Husk [Metamucil] 0.8 gm PO DAILY 10/28/19 [History] HYDROcodone/APAP 5-325MG [[place] 5-325] 1 tab PO Q6H PRN 12/20/19 [History] Ipratropium-Albuterol Nebulize [Duoneb 0.5 mg-3 mg/3 ml Soln] 3 ml INHALATION RT-QID 02/27/20 [History] Umeclidinium [place] [Incruse Ellipta] 1 puff INHALATION RT-DAILY 30 Days #1 device 02/28/20 [Rx] Levofloxacin [Levaquin] 500 mg PO DAILY #5 tab 03/25/20 [Rx] predniSONE 10 mg PO DIRECTED #30 tab 03/25/20 [Rx] The impression and plan of care has been dictated as directed. : I performed a history and examination of this patient, discussed the same with the dictator. I agree with the dictator's note ,documented as a scribe. Any additional findings or plans will be noted.
[2020-03-25] MEDS ORDERED: SYMBICORT 160-4.5 MCG INHALER INHALATION SCH (20:00)
[2020-03-29] MEDS ORDERED: ERGOCALCIFEROL 1,250 MCG (50,000 IU) CAPSULE PO SCH (09:00)
== END 2020-03-25 15:23 | disposition home or self-care (01) ==
LOC: EC 16:35 → 6NMEDSUR 20:19
PROVIDERS: ADMIT Family Medicine; ATTEND Family Medicine
DX: J44.1 Chronic obstructive pulmonary disease with (acute) exacerbation (principal); J80 Acute respiratory distress syndrome; F17.200 Nicotine dependence, unspecified, uncomplicated; G89.29 Other chronic pain; I10 Essential (primary) hypertension; I48.0 Paroxysmal atrial fibrillation; J84.10 Pulmonary fibrosis, unspecified; N40.0 Benign prostatic hyperplasia without lower urinary tract symptoms; Z79.01 Long term (current) use of anticoagulants; Z79.51 Long term (current) use of inhaled steroids; Z79.52 Long term (current) use of systemic steroids; Z20.822 Contact with and (suspected) exposure to COVID-19; Z79.83 Long term (current) use of bisphosphonates; Z79.899 Other long term (current) drug therapy; Z82.49 Family history of ischemic heart disease and other diseases of the circulatory system; Z96.1 Presence of intraocular lens; Z98.41 Cataract extraction status, right eye; Z98.42 Cataract extraction status, left eye
CPT/HCPCS: 96376; 96374; 99285; 36415; 94640 ×3; 93005; 83880; 80053; 80048; 82550; 83605; 83735 ×2; 84484; 85025 ×2; 85610; 85730; 87635; 71046; G0378 ×2; S0138; J2930 ×2

== ENCOUNTER 2020-04-07 16:16 | Observation (INO) | payer MEDICARE ==
[2020-04-07] MEDS ORDERED: methylPREDNISolone SOD SUCCI 125 MG/2 ML VIAL IV STA (16:33)
[2020-04-07] MEDS ORDERED: ALBUTEROL NEBULIZED 2.5 MG/3 ML INHALATION STA (16:33)
--- NOTE | 2020-04-07 16:39 | ED ---
General Adult HPI - General Chief complaint: Shortness of Breath Stated complaint: KEERTHI/COPD Time Seen by Provider: 04/07/20 16:24 Source: patient, RN notes reviewed, old records reviewed Mode of arrival: wheelchair Limitations: no limitations - History of Present Illness Initial comments: 74-year-old male history COPD presenting for evaluation of cough and dyspnea. Patient denies sputum production. He denies chest pain. Denies fever. Denies any known contact with coronavirus. Denies lower extremity pain or swelling. He states he is currently smoking. He does follow with pulmonology. He was admitted within the past one month for COPD. He states he continues to have cough and dyspnea. - Related Data Home Medications Medication Instructions Recorded Confirmed Tamsulosin HCl [Flomax] 0.4 mg PO BID 03/24/18 03/24/20 Apixaban [Eliquis] 5 mg PO BID 09/14/18 03/24/20 Metoprolol Tartrate [Lopressor] 50 mg PO BID 02/04/19 03/24/20 Ergocalciferol [Vitamin D2 50,000 unit PO TU 05/05/19 03/24/20 (DRISDOL)] Finasteride [Proscar] 5 mg PO DAILY 05/05/19 03/24/20 Acetaminophen [Tylenol] 650 mg PO Q6H PRN 06/06/19 03/24/20 Calcium Carbonate [Calcium] 600 mg PO DAILY 06/06/19 03/24/20 Albuterol Inhaler [Ventolin Hfa 2 puff INHALATION RT-Q6H PRN 08/21/19 03/24/20 Inhaler] Alendronate Sodium [Fosamax] 70 mg PO GROVES 08/21/19 03/24/20 Psyllium Husk [Metamucil] 0.8 gm PO DAILY 10/28/19 03/24/20 HYDROcodone/APAP 5-325MG [[place] 1 tab PO Q6H PRN 12/20/19 03/24/20 5-325] Ipratropium-Albuterol Nebulize 3 ml INHALATION RT-QID 02/27/20 03/24/20 [Duoneb 0.5 mg-3 mg/3 ml Soln] Previous Rx's Medication Instructions Recorded Budesonide-Formot 160-4.5 Mcg 2 puff INHALATION RT-BID puff 10/08/19 [Symbicort 160-4.5 Mcg Inhaler] Umeclidinium [place] [Incruse 1 puff INHALATION RT-DAILY 30 Days 02/28/20 Ellipta] #1 device Levofloxacin [Levaquin] 500 mg PO DAILY #5 tab 03/25/20 predniSONE 10 mg PO DIRECTED #30 tab 03/25/20 Allergies Allergy/AdvReac Type Severity Reaction Status Date / Time Iodinated Contrast Media Allergy Rash/Hives Verified 04/07/20 16:20 [Iodinated Contrast- Oral and IV Dye] latex Allergy Rash/Hives Verified 04/07/20 16:20 Review of Systems ROS Statement: Those systems with pertinent positive or pertinent negative responses have been documented in the HPI. ROS Other: All systems not noted in ROS Statement are negative. Past Medical History Past Medical History: Atrial Fibrillation, COPD, Pneumonia, Prostate Disorder Additional Past Medical History / Comment(s): Paroxysmal Afib, bronchitis, pulmonary nodules/negative pet scan, BPH, constipation, vertigo, chronic low back pain/DDD. History of Any Multi-Drug Resistant Organisms: None Reported Past Surgical History: Back Surgery Additional Past Surgical History / Comment(s): Bilateral cataract removals-lens implants, colonoscopy, multiple kyphoplasties. Past Anesthesia/Blood Transfusion Reactions: No Reported Reaction Additional Past Anesthesia/Blood Transfusion Reaction / Comment(s): Has never received any blood transfusions. Past Psychological History: No Psychological Hx Reported Smoking Status: Current every day smoker Past Alcohol Use History: None Reported Past Drug Use History: None Reported - Past Family History Mother Family Medical History: AFIB, Dementia Father Family Medical History: Myocardial Infarction ([place]) Additional Family Medical History / Comment(s): in his 70's [place] General Exam Limitations: no limitations General appearance: alert, in distress Head exam: Present: atraumatic, normocephalic Eye exam: Present: normal appearance, PERRL ENT exam: Present: normal exam Neck exam: Present: normal inspection. Absent: tenderness, meningismus Respiratory exam: Present: respiratory distress, wheezes, accessory muscle use, decreased breath sounds Cardiovascular Exam: Present: regular rate, normal rhythm GI/Abdominal exam: Present: soft. Absent: distended, tenderness, guarding Extremities exam: Present: normal inspection, normal capillary refill. Absent: pedal edema, calf tenderness Back exam: Present: normal inspection, full ROM Neurological exam: Present: alert, oriented X3, CN II-XII intact. Absent: motor sensory deficit Psychiatric exam: Present: normal affect, normal mood Skin exam: Present: warm, dry, intact. Absent: cyanosis, diaphoretic Course Vital Signs 04/07/20 04/07/20 04/07/20 16:17 17:09 17:35 Temperature 97.7 F Pulse Rate 96 85 85 Respiratory 20 Rate Blood Pressure 115/73 O2 Sat by Pulse 96 Oximetry - Reevaluation(s) Reevaluation #1: 04/07/20 18:04 Patient given 7.5 mg of albuterol, continues to have persistent wheezing, moderate respiratory distress. EKG Findings - EKG Comments: EKG Findings:: EKG: Normal sinus rhythm, rate 93, MT interval 160, QRS duration 80, QTC 440, no ST segment elevation. Medical Decision Making - Medical Decision Making 74-year-old male with cough, dyspnea. History of COPD and pulmonary fibrosis. X-ray showing interstitial pattern consistent with fibrosis. No focal pneumonia or acute findings. Patient has normal CBC, normal CMP, negative troponin, negative influenza, negative coronavirus. Patient continues to have moderate respiratory distress after initial treatment of albuterol, Atrovent, steroids in the emergency prompt. He will be admitted for treatment of COPD exacerbation. Case discussed with Dr. Ortega who will admit. - Lab Data Result diagrams: 04/07/20 16:52 04/07/20 16:52 Lab Results 04/07/20 04/07/20 04/07/20 Range/Units 16:52 16:52 16:52 WBC 10.5 (3.8-10.6) k/uL RBC 4.46 (4.30-5.90) m/uL Hgb 14.5 (13.0-17.5) gm/dL Hct 42.7 (39.0-53.0) % MCV 95.7 (80.0-100.0) fL MCH 32.5 (25.0-35.0) pg MCHC 34.0 (31.0-37.0) g/dL RDW 12.4 (11.5-15.5) % Plt Count 244 (150-450) k/uL MPV 7.5 Neutrophils % 69 % Lymphocytes % 18 % Monocytes % 6 % Eosinophils % 5 % Basophils % 1 % Neutrophils # 7.2 (1.3-7.7) k/uL Lymphocytes # 1.9 (1.0-4.8) k/uL Monocytes # 0.7 (0-1.0) k/uL Eosinophils # 0.5 (0-0.7) k/uL Basophils # 0.1 (0-0.2) k/uL PT 9.9 (9.0-12.0) sec INR 0.9 (<1.2) APTT 22.8 (22.0-30.0) sec Sodium 135 L (137-145) mmol/L Potassium 4.4 (3.5-5.1) mmol/L Chloride 101 (98-107) mmol/L Carbon Dioxide 28 (22-30) mmol/L Anion Gap 6 mmol/L BUN 25 H (9-20) mg/dL Creatinine 0.93 (0.66-1.25) mg/dL Est GFR (CKD-EPI)AfAm >90 (>60 ml/min/1.73 sqM) Est GFR (CKD-EPI)NonAf 81 (>60 ml/min/1.73 sqM) Glucose 85 (74-99) mg/dL Plasma Lactic Acid Santi (0.7-2.0) mmol/L Calcium 9.5 (8.4-10.2) mg/dL Magnesium 2.2 (1.6-2.3) mg/dL Total Bilirubin 0.5 (0.2-1.3) mg/dL AST 19 (17-59) U/L ALT 20 (4-49) U/L Alkaline Phosphatase 83 (38-126) U/L Troponin I (0.000-0.034) ng/mL Total Protein 6.2 L (6.3-8.2) g/dL Albumin 3.7 (3.5-5.0) g/dL Coronavirus (PCR) (Not Detectd) Influenza Type A RNA (Not Detectd) Influenza Type B (PCR) (Not Detectd) 04/07/20 04/07/20 04/07/20 Range/Units 16:52 16:52 16:52 WBC (3.8-10.6) k/uL RBC (4.30-5.90) m/uL Hgb (13.0-17.5) gm/dL Hct (39.0-53.0) % MCV (80.0-100.0) fL MCH (25.0-35.0) pg MCHC (31.0-37.0) g/dL RDW (11.5-15.5) % Plt Count (150-450) k/uL MPV Neutrophils % % Lymphocytes % % Monocytes % % Eosinophils % % Basophils % % Neutrophils # (1.3-7.7) k/uL Lymphocytes # (1.0-4.8) k/uL Monocytes # (0-1.0) k/uL Eosinophils # (0-0.7) k/uL Basophils # (0-0.2) k/uL PT (9.0-12.0) sec INR (<1.2) APTT (22.0-30.0) sec Sodium (137-145) mmol/L Potassium (3.5-5.1) mmol/L Chloride (98-107) mmol/L Carbon Dioxide (22-30) mmol/L Anion Gap mmol/L BUN (9-20) mg/dL Creatinine (0.66-1.25) mg/dL Est GFR (CKD-EPI)AfAm (>60 ml/min/1.73 sqM) Est GFR (CKD-EPI)NonAf (>60 ml/min/1.73 sqM) Glucose (74-99) mg/dL Plasma Lactic Acid Santi 1.2 (0.7-2.0) mmol/L Calcium (8.4-10.2) mg/dL Magnesium (1.6-2.3) mg/dL Total Bilirubin (0.2-1.3) mg/dL AST (17-59) U/L ALT (4-49) U/L Alkaline Phosphatase (38-126) U/L Troponin I <0.012 (0.000-0.034) ng/mL Total Protein (6.3-8.2) g/dL Albumin (3.5-5.0) g/dL Coronavirus (PCR) Not Detected (Not Detectd) Influenza Type A RNA Not Detected (Not Detectd) Influenza Type B (PCR) Not Detected (Not Detectd) Disposition Clinical Impression: COPD with acute exacerbation Disposition: ADMITTED IP TO THIS HOSP Condition: Stable Is patient prescribed a controlled substance at d/c from ED?: No Referrals: Fernando Lambert Jr, [Primary Care Provider] - 1-2 days Decision to Admit Reason: Admit from EC Decision Date: 04/07/20 Decision Time: 18:06
--- NOTE | 2020-04-07 17:08 | XR ---
EXAMINATION TYPE: XR chest 2V DATE OF EXAM: 04/07/2020 COMPARISON: 03/24/2020 HISTORY: Difficulty breathing TECHNIQUE: FINDINGS: Heart and mediastinum are within normal limits. There is coarsening of the interstitial oneyda g markings. There is poor inspiration. There is multilevel thoracic and lumbar vertebroplasty. There is osteopenia. There is no pleural effusion. IMPRESSION: Pulmonary interstitial infiltrates similar to old exam and could relate to fibrosis. No h eart failure.
[2020-04-07 17:13] LABS: Basophils # (A) 0.1 k/uL (0-0.2); Basophils % (A) 1 %; Eosinophils # (A) 0.5 k/uL (0-0.7); Eosinophils % (A) 5 %; HCT 42.7 % (39.0-53.0); HGB 14.5 gm/dL (13.0-17.5); Lymphocytes # (A) 1.9 k/uL (1.0-4.8); Lymphocytes % (A) 18 %; MCH 32.5 pg (25.0-35.0); MCV 95.7 fL (80.0-100.0); Mean Platelet Volume 7.5; Monocytes # (A) 0.7 k/uL (0-1.0); Monocytes % (A) 6 %; Neutrophils # (A) 7.2 k/uL (1.3-7.7); Neutrophils % (A) 69 %; Platelet Count 244 k/uL (150-450); RBC 4.46 m/uL (4.30-5.90); RDW 12.4 % (11.5-15.5); WBC 10.5 k/uL (3.8-10.6)
[2020-04-07 17:22] LABS: INR 0.9 (<1.2); Partial Thromboplastin Time 22.8 sec (22.0-30.0); Prothrombin Time 9.9 sec (9.0-12.0)
[2020-04-07 17:25] LABS: ALT 20 U/L (4-49); AST 19 U/L (17-59); African American GFR (CKD) >90 (>60 ml/min/1.73 sqM); Albumin 3.7 g/dL (3.5-5.0); Alkaline Phosphatase 83 U/L (38-126); Anion Gap 6 mmol/L; Blood Urea Nitrogen 25 mg/dL (9-20); Calcium 9.5 mg/dL (8.4-10.2); Carbon Dioxide 28 mmol/L (22-30); Chloride 101 mmol/L (98-107); Glucose 85 mg/dL (74-99); Magnesium 2.2 mg/dL (1.6-2.3); Non-African American GFR(CKD) 81 (>60 ml/min/1.73 sqM); Potassium 4.4 mmol/L (3.5-5.1); Sodium 135 mmol/L (137-145); Total Bilirubin 0.5 mg/dL (0.2-1.3); Total Protein 6.2 g/dL (6.3-8.2)
[2020-04-07 17:27] LABS: SARS-CoV-2 RNA Rapid Abbott Not Detected (Not Detectd)
[2020-04-07] MEDS ORDERED: IPRATROPIUM-ALBUTEROL 3 ML NEB INHALATION PRN (18:03)
[2020-04-07] MEDS ORDERED: ALBUTEROL NEBULIZED 2.5 MG/3 ML INHALATION PRN (18:04)
[2020-04-07] MEDS: IPRATROPIUM-ALBUTEROL 3 ML NEB INHALATION SCH (19:19)
[2020-04-07] MEDS ORDERED: ACETAMINOPHEN TAB 325 MG TAB PO PRN (19:26)
[2020-04-07] MEDS: APIXABAN 5 MG TAB PO SCH (21:22)
[2020-04-07] MEDS: METOPROLOL TARTRATE 50 MG TAB PO SCH (21:23)
[2020-04-07] MEDS: TAMSULOSIN 0.4 MG CAP.ER.24H PO SCH (21:23)
[2020-04-08] MEDS: methylPREDNISolone SOD SUCCI 125 MG/2 ML VIAL IV SCH ×3 (00:03→12:51)
[2020-04-08 07:43] VITALS: BP 127/76; RESP 16; TEMP 97.9
[2020-04-08] MEDS: METOPROLOL TARTRATE 50 MG TAB PO SCH (08:36)
[2020-04-08] MEDS: TAMSULOSIN 0.4 MG CAP.ER.24H PO SCH (08:36)
[2020-04-08] MEDS: APIXABAN 5 MG TAB PO SCH (08:36)
[2020-04-08] MEDS: IPRATROPIUM-ALBUTEROL 3 ML NEB INHALATION SCH ×2 (08:51→12:00)
[2020-04-08] MEDS ORDERED: CALCIUM CARB-VIT D 500 MG-5 MCG TAB PO SCH (09:00)
[2020-04-08] MEDS ORDERED: FINASTERIDE 5 MG TAB PO SCH (09:00)
[2020-04-08] MEDS ORDERED: PANTOPRAZOLE 40 MG/10 ML VIAL IVP SCH (11:15)
[2020-04-08] MEDS ORDERED: PSYLLIUM HUSK 100% 6 GM PACKET PO SCH (11:15)
[2020-04-08 12:16] VITALS: PULSE 88
--- NOTE | 2020-04-08 15:52 | P.HPIM ---
History of Present Illness H&P Date: 04/08/20 Chief Complaint: Worsening shortness of breath History and Physical and Discharge Summary This is a 74-year-old gentleman with history of paroxysmal atrial fibrillation, COPD, pulmonary nodules, back surgery, ongoing nicotine dependence-at least a [id number] smoker and multiple other medical issues. presented to the ER with complaints of worsening dyspnea, nonproductive cough. Denies chest pain, palpitations. Denies fever or chills. No hemoptysis. Minimal nonproductive cough. Denies lightheadedness, dizziness or focal deficits. Denies nausea vomiting or diarrhea. Denies syncope. Chest x-ray reported pulmonary interstitial fibrosis similar to prior exam, with no obvious heart failure. EKG) normal sinus rhythm. Troponin negative 1. Normal CBC, normal CMP, negative influenza, negative coronavirus. Afebrile, vital signs stable, maintaining O2 sats in the 90s on room air on admission, later placed on 2 L nasal cannula to maintain O2 sats in the 90s. Oxygen has now been weaned off, maintaining O2 sats in the mid 90s. Ambulating, tolerating exertion well. Denies exertional shortness of breath. Review of Systems ROS Statement: Those systems with pertinent positive or pertinent negative responses have been documented in the HPI. ROS Other: All systems not noted in ROS Statement are negative. Past Medical History Past Medical History: Atrial Fibrillation, COPD, Pneumonia, Prostate Disorder Additional Past Medical History / Comment(s): Paroxysmal Afib, bronchitis, pulmonary nodules/negative pet scan, BPH, constipation, vertigo, chronic low back pain/DDD. History of Any Multi-Drug Resistant Organisms: None Reported Past Surgical History: Back Surgery Additional Past Surgical History / Comment(s): Bilateral cataract removals-lens implants, colonoscopy, multiple kyphoplasties. Past Anesthesia/Blood Transfusion Reactions: No Reported Reaction Additional Past Anesthesia/Blood Transfusion Reaction / Comment(s): Has never received any blood transfusions. Past Psychological History: No Psychological Hx Reported Additional Psychological History / Comment(s): Pt resides with his son, (Jt). They live in a downstairs apartment. Pt manages his own medications. He has a nebulizer. His son cooks and drives pt to [employer]. recently passed [email or web address]. Smoking Status: Current every day smoker Past Alcohol Use History: None Reported Additional Past Alcohol Use History / Comment(s): Pt started smoking age 12(1958) got up to 5 ppd for many years then cut down to 3 ppd, currently smoking a ppd or alittle more if his back is hurting. Past Drug Use History: None Reported - Past Family History Mother Family Medical History: AFIB, Dementia Father Family Medical History: Myocardial Infarction ([place]) Additional Family Medical History / Comment(s): in his 70's [place] Medications and Allergies Home Medications Medication Instructions Recorded Confirmed Type Tamsulosin HCl [Flomax] 0.4 mg PO BID 03/24/18 04/07/20 History Apixaban [Eliquis] 5 mg PO BID 09/14/18 04/07/20 History Metoprolol Tartrate [Lopressor] 50 mg PO BID 02/04/19 04/07/20 History Ergocalciferol [Vitamin D2 50,000 unit PO TU 05/05/19 04/07/20 History (ESSIE)] Finasteride [Proscar] 5 mg PO DAILY 05/05/19 04/07/20 History Acetaminophen [Tylenol] 650 mg PO Q6H PRN 06/06/19 04/07/20 History Calcium Carbonate [Calcium] 600 mg PO DAILY 06/06/19 04/07/20 History Albuterol Inhaler [Ventolin Hfa 2 puff INHALATION RT-Q6H PRN 08/21/19 04/07/20 History Inhaler] Alendronate Sodium [Fosamax] 70 mg PO GROVES 08/21/19 04/07/20 History Budesonide-Formot 160-4.5 Mcg 2 puff INHALATION RT-BID puff 10/08/19 04/07/20 Rx [Symbicort 160-4.5 Mcg Inhaler] Psyllium Husk [Metamucil] 0.8 gm PO DAILY 10/28/19 04/07/20 History Ipratropium-Albuterol Nebulize 3 ml INHALATION RT-QID 02/27/20 04/07/20 History [Duoneb 0.5 mg-3 mg/3 ml Soln] Umeclidinium [place] [Incruse 1 puff INHALATION RT-DAILY 30 Days 02/28/20 04/07/20 Rx Ellipta] #1 device Pantoprazole Sodium [Protonix] 40 mg PO DAILY #14 tablet.dr 04/08/20 Rx predniSONE 10 mg PO DIRECTED #30 tab 04/08/20 Rx Allergies Allergy/AdvReac Type Severity Reaction Status Date / Time Iodinated Contrast Media Allergy Rash/Hives Verified 04/07/20 16:20 [Iodinated Contrast- Oral and IV Dye] latex Allergy Rash/Hives Verified 04/07/20 16:20 Physical Exam Vitals: Vital Signs Temp Pulse Pulse Resp BP BP Pulse Ox 04/08/20 09:01 87 04/08/20 08:51 91 94 L 04/08/20 08:00 16 04/08/20 07:41 97.9 F 90 16 127/76 94 L 04/08/20 02:00 97.7 F 94 20 149/89 94 L 04/08/20 00:50 84 04/08/20 00:43 82 04/07/20 19:01 97.8 F 82 18 120/69 97 04/07/20 17:35 85 04/07/20 17:09 85 04/07/20 16:17 97.7 F 96 20 115/73 96 Intake and Output 04/07/20 04/08/20 04/08/20 22:59 06:59 14:59 Intake Total 540 240 Balance 540 240 Intake: Oral 540 240 Other: Voiding Method Toilet # Voids 3 Weight 77.111 kg GENERAL EXAM: Pleasant 74-year-old gentleman. Alert, active, comfortable in no apparent distress, sitting up at bedside HEAD: Normocephalic. Atraumatic. EYES: Normal reaction of pupils, equal size. NOSE: Clear with pink turbinates. THROAT: No erythema or exudates. NECK: No masses, no JVD. CHEST: No chest wall deformity. LUNGS: Diminished air entry,diminished breath sounds with minimal scattered rhonchi, no wheezes CVS: S1 and S2 normal with no audible murmur, regular rhythm. ABDOMEN: No hepatosplenomegaly, normal bowel sounds, no guarding or rigidity. SKIN: Warm and dry, No rashes CENTRAL NERVOUS SYSTEM: No focal deficits, tone is normal in all 4 extremities. EXTREMITIES: There is no peripheral edema. No clubbing, no cyanosis. Pe ripheral pulses are intact. Results CBC & Chem 7: 04/07/20 16:52 04/07/20 16:52 Labs: Abnormal Lab Results - Last 24 Hours (Table) 04/07/20 Range/Units 16:52 Sodium 135 L (137-145) mmol/L BUN 25 H (9-20) mg/dL Total Protein 6.2 L (6.3-8.2) g/dL Thrombosis Risk Factor Assmnt - Choose All That Apply Each Risk Factor Represents 2 Points: Age 61-74 years Thrombosis Risk Factor Assessment Total Risk Factor Score: 2 Thrombosis Risk Factor Assessment Level: Low Risk Assessment and Plan Assessment: (1) COPD with acute exacerbation Current Visit: Yes Status: Acute Code(s): J44.1 - CHRONIC OBSTRUCTIVE PULMONARY DISEASE W (ACUTE) EXACERBATION SNOMED Code(s): 172996370 (2)Nicotine dependence Current Visit: No Status: Acute Code(s): F17.200 - NICOTINE DEPENDENCE, UNSPECIFIED, UNCOMPLICATED SNOMED Code(s): 18486367 (3) Chronic Atrial fibrillation, paroxysmal, anticoagulated on Eliquis Current Visit: No Status: Acute Code(s): I48.91 - UNSPECIFIED ATRIAL FIBRILLATION SNOMED Code(s): 95156558 (4) BPH (benign prostatic hyperplasia) Current Visit: Yes Status: Acute Code(s): N40.0 - BENIGN PROSTATIC HYPERPLASIA WITHOUT LOWER URINRY TRACT SYMP SNOMED Code(s): 516229088 (5) Chronic low back pain Current Visit: Yes Status: Acute Code(s): M54.5 - LOW BACK PAIN; G89.29 - OTHER CHRONIC PAIN SNOMED Code(s): 915936418 (6) hypertension Plan: Continue on current medication regime ,monitoring and symmetric. Maintained on IV steroids, nebulized bronchodilators, smoking cessation reinforced. Significant clinical improvement. Patient will be discharged home today in a stable condition with guarded prognosis on steroid taper. Discharge Medication List Tamsulosin HCl [Flomax] 0.4 mg PO BID 03/24/18 [History] Apixaban [Eliquis] 5 mg PO BID 09/14/18 [History] Metoprolol Tartrate [Lopressor] 50 mg PO BID 02/04/19 [History] Ergocalciferol [Vitamin D2 (DRISDOL)] 50,000 unit PO TU 05/05/19 [History] Finasteride [Proscar] 5 mg PO DAILY 05/05/19 [History] Acetaminophen [Tylenol] 650 mg PO Q6H PRN 06/06/19 [History] Calcium Carbonate [Calcium] 600 mg PO DAILY 06/06/19 [History] Albuterol Inhaler [Ventolin Hfa Inhaler] 2 puff INHALATION RT-Q6H PRN 08/21/19 [History] Alendronate Sodium [Fosamax] 70 mg PO GROVES 08/21/19 [History] Budesonide-Formot 160-4.5 Mcg [Symbicort 160-4.5 Mcg Inhaler] 2 puff INHALATION RT-BID puff 10/08/19 [Rx] Psyllium Husk [Metamucil] 0.8 gm PO DAILY 10/28/19 [History] Ipratropium-Albuterol Nebulize [Duoneb 0.5 mg-3 mg/3 ml Soln] 3 ml INHALATION RT-QID 02/27/20 [History] Umeclidinium [place] [Incruse Ellipta] 1 puff INHALATION RT-DAILY 30 Days #1 device 02/28/20 [Rx] Pantoprazole Sodium [Protonix] 40 mg PO DAILY #14 tablet.dr 04/08/20 [Rx] predniSONE 10 mg PO DIRECTED #30 tab 04/08/20 [Rx] The impression and plan of care has been dictated as directed. : I performed a history and examination of this patient, discussed the same with the dictator. I agree with the dictator's note ,documented as a scribe. Any additional findings or plans will be noted.
[2020-04-08] MEDS ORDERED: SYMBICORT 160-4.5 MCG INHALER INHALATION SCH (20:00)
[2020-04-09] MEDS ORDERED: PANTOPRAZOLE 40 MG TABLET PO SCH (07:30)
[2020-04-10] MEDS ORDERED: NON FORMULARY DRUG (Alendronate Sodium [Fosamax] 70 MG Tablet) PO SCH (19:26)
[2020-04-12] MEDS ORDERED: ERGOCALCIFEROL 1,250 MCG (50,000 IU) CAPSULE PO SCH (09:00)
== END 2020-04-08 13:55 ==
LOC: EC 16:16 → 6NMEDSUR 18:03
PROVIDERS: ADMIT Family Medicine; ATTEND Family Medicine
DX: J44.1 Chronic obstructive pulmonary disease with (acute) exacerbation (principal); F17.200 Nicotine dependence, unspecified, uncomplicated; I48.20 Chronic atrial fibrillation, unspecified; N40.0 Benign prostatic hyperplasia without lower urinary tract symptoms; G89.29 Other chronic pain; M54.5 Low back pain; R91.8 Other nonspecific abnormal finding of lung field; K59.00 Constipation, unspecified; R42 Dizziness and giddiness; M51.36 Other intervertebral disc degeneration, lumbar region; R06.03 Acute respiratory distress; J84.10 Pulmonary fibrosis, unspecified; I10 Essential (primary) hypertension; Z79.899 Other long term (current) drug therapy; Z79.01 Long term (current) use of anticoagulants; Z79.83 Long term (current) use of bisphosphonates; Z79.1 Long term (current) use of non-steroidal anti-inflammatories (NSAID); Z79.51 Long term (current) use of inhaled steroids; Z91.041 Radiographic dye allergy status; Z91.040 Latex allergy status; Z87.01 Personal history of pneumonia (recurrent); Z87.09 Personal history of other diseases of the respiratory system; Z82.49 Family history of ischemic heart disease and other diseases of the circulatory system; Z81.8 Family history of other mental and behavioral disorders; Z20.822 Contact with and (suspected) exposure to COVID-19; Z96.1 Presence of intraocular lens
CPT/HCPCS: 96376; 96375; 96374; 99285; 36415; 94640 ×3; 94760; 93005; 80053; 83605; 83735; 84484; 85025; 85610; 85730; 87502; 87635; 71046; G0378 ×2; S0138; J2930 ×2; C9113

== ENCOUNTER 2020-04-28 16:55 | Emergency (ER) | payer MEDICARE ==
[2020-04-28 17:06] VITALS: RESP 20; TEMP 98
[2020-04-28] MEDS ORDERED: methylPREDNISolone SOD SUCCI 125 MG/2 ML VIAL IV STA (17:28)
[2020-04-28] MEDS ORDERED: IPRATROPIUM-ALBUTEROL 3 ML NEB INHALATION STA ×2 (17:28→18:24)
[2020-04-28 17:38] LABS: Basophils # (A) 0.1 k/uL (0-0.2); Basophils % (A) 1 %; Eosinophils # (A) 0.4 k/uL (0-0.7); Eosinophils % (A) 4 %; HCT 42.8 % (39.0-53.0); Lymphocytes # (A) 1.3 k/uL (1.0-4.8); Lymphocytes % (A) 15 %; MCH 32.8 pg (25.0-35.0); MCHC 34.9 g/dL (31.0-37.0); MCV 93.8 fL (80.0-100.0); Mean Platelet Volume 7.5; Monocytes # (A) 0.7 k/uL (0-1.0); Monocytes % (A) 8 %; Neutrophils # (A) 6.2 k/uL (1.3-7.7); Neutrophils % (A) 70 %; Platelet Count 187 k/uL (150-450); RBC 4.57 m/uL (4.30-5.90); RDW 12.5 % (11.5-15.5); WBC 8.9 k/uL (3.8-10.6)
[2020-04-28 17:48] LABS: Albumin 4.2 g/dL (3.5-5.0); Calcium 9.7 mg/dL (8.4-10.2); Potassium 4.2 mmol/L (3.5-5.1); Total Bilirubin 0.6 mg/dL (0.2-1.3); Total Protein 6.8 g/dL (6.3-8.2)
[2020-04-28 17:53] LABS: Partial Thromboplastin Time 24.5 sec (22.0-30.0); Prothrombin Time 10.4 sec (9.0-12.0)
[2020-04-28] MEDS ORDERED: ACETAMINOPHEN TAB 325 MG TAB PO STA (18:25)
[2020-04-28] MEDS ORDERED: IPRATROPIUM-ALBUTEROL 3 ML NEB INHALATION PRN (18:40)
--- NOTE | 2020-04-28 18:40 | ED ---
SOB HPI - General Chief Complaint: Shortness of Breath Stated Complaint: KEERTHI Time Seen by Provider: 04/28/20 17:12 Source: patient Mode of arrival: ambulatory Limitations: no limitations - History of Present Illness Initial Comments: 75-year-old male atrial fibrillation on eliquis, COPD with frequent exacerbations of presenting today for chief complaint of difficulty in breathing x1 day. Patient states the past day and a half he has had difficulty breathing. He states he feels like he is not moving much air. Patient admits to wheezing. Patient states his history of COPD and this feels like previous exacerbations he denies chest pain pressure. Deep expiration he states he has chronic bilateral leg swelling he denies any worsening. Patient denies any nausea vomiting abdominal pain back pain jaw or arm pain. Patient denies fevers, cough, congestion. Denies cancer, hemoptysis, unilateral leg swelling, denies leg or calf pain, denies recent surgeries/immobilization or travel. Denies additional complaints concerns. Did treatment before arrival. multiple treatments the night before-no significant improvement. - Related Data Home Medications Medication Instructions Recorded Confirmed Tamsulosin HCl [Flomax] 0.4 mg PO BID 03/24/18 04/28/20 Apixaban [Eliquis] 5 mg PO BID 09/14/18 04/28/20 Metoprolol Tartrate [Lopressor] 50 mg PO BID 02/04/19 04/28/20 Ergocalciferol [Vitamin D2 50,000 unit PO TU 05/05/19 04/28/20 (ISDOL)] Finasteride [Proscar] 5 mg PO DAILY 05/05/19 04/28/20 Alendronate Sodium [Fosamax] 70 mg PO GROVES 08/21/19 04/28/20 Ipratropium-Albuterol Nebulize 3 ml INHALATION RT-QID 02/27/20 04/28/20 [Duoneb 0.5 mg-3 mg/3 ml Soln] Albuterol Sulfate [Proair Hfa] 2 puff INHALATION RT-QID PRN 04/28/20 04/28/20 Previous Rx's Medication Instructions Recorded Umeclidinium [place] [Incruse 1 puff INHALATION RT-DAILY 30 Days 02/28/20 Ellipta] #1 device Pantoprazole Sodium [Protonix] 40 mg PO DAILY #14 tablet. 04/08/20 Azithromycin [Zithromax Z-pack (6 0 mg PO DIRECTED #6 tab 04/28/20 tabs)] predniSONE [Deltasone] 20 mg PO DAILY 10 Days #10 tab 04/28/20 Allergies Allergy/AdvReac Type Severity Reaction Status Date / Time Iodinated Contrast Media Allergy Rash/Hives Verified 04/28/20 17:06 [Iodinated Contrast- Oral and IV Dye] latex Allergy Rash/Hives Verified 04/28/20 17:06 Review of Systems ROS Statement: Those systems with pertinent positive or pertinent negative responses have been documented in the HPI. ROS Other: All systems not noted in ROS Statement are negative. Past Medical History Past Medical History: Atrial Fibrillation, COPD, Pneumonia, Prostate Disorder Additional Past Medical History / Comment(s): Paroxysmal Afib, bronchitis, pulmonary nodules/negative pet scan, BPH, constipation, vertigo, chronic low back pain/DDD. History of Any Multi-Drug Resistant Organisms: None Reported Past Surgical History: Back Surgery Additional Past Surgical History / Comment(s): Bilateral cataract removals-lens implants, colonoscopy, multiple kyphoplasties. Past Anesthesia/Blood Transfusion Reactions: No Reported Reaction Additional Past Anesthesia/Blood Transfusion Reaction / Comment(s): Has never received any blood transfusions. Past Psychological History: No Psychological Hx Reported Smoking Status: Current every day smoker Past Alcohol Use History: None Reported Past Drug Use History: None Reported - Past Family History Mother Family Medical History: AFIB, Dementia Father Family Medical History: Myocardial Infarction ([place]) Additional Family Medical History / Comment(s): in his 70's [place] General Exam - General Exam Comments Initial Comments: General: The patient is awake and alert, in no distress Eye: +3 mm pupils are equal, round and reactive to light, extra-ocular m ovements are intact. No nystagmus. There is normal conjunctiva bilaterally. No signs of icterus. Ears, nose, mouth and throat: There are moist mucous membranes and no oral lesions. Neck: The neck is supple, there is no tenderness or JVD. Cardiovascular: There is a regular rate and rhythm. No murmur, rub or gallop is appreciated. Respiratory: Minimal air movement, diminised. Respirations are mildly-labored, breath sounds are equal. Expiratory inspiratory wheeze faint due to lack of air movement--No stridor, rales, or rhonchi. Gastrointestinal: Soft, non-distended, non-tender abdomen without masses or organomegaly noted. There is no rebound or guarding present. Musculoskeletal: Normal ROM, no tenderness. Strength 5/5. Sensation intact. Radial and DP pulses equal bilaterally 2+. Neurological: A&O x 3. CN II-XII intact grossly, There are no obvious motor or sensory deficits. Coordination appears grossly intact. Speech is normal. Skin: Skin is warm and dry and no rashes or lesions are noted. No pitting edema of the lower extremities Psychiatric: Cooperative, appropriate mood & affect, normal judgment. Limitations: no limitations Course Vital Signs 04/28/20 04/28/20 04/28/20 17:03 18:01 18:10 Temperature 98.0 F Pulse Rate 107 H 100 100 Respiratory 20 Rate Blood Pressure 110/66 O2 Sat by Pulse 95 Oximetry 04/28/20 19:17 Temperature Pulse Rate 105 H Respiratory 20 Rate Blood Pressure 137/84 O2 Sat by Pulse 96 Oximetry Medical Decision Making - Medical Decision Making 75-year-old male with past nuchal history of COPD presenting today for chief complaint of worsening shortness of breath on physical examination patient does have significantly diminished lung sounds throughout [place]. Patient does have an audible inspiratory and expiratory wheeze patient had some improvement after 1 DuoNeb treatment. Patient did one DuoNeb to her prior to arrival to emergency department Patient was given Solu-Medrol his troponin negative BNP within a couple limits EKG no acute ischemic findings. INitially patient discussed being admitted, Dina Lambert consulted who refused admission adn states he will see the patient in the office and recommend steroids 20mg daily x 10 days, and azithromycin. patient and patient daughter is agreeable to discharge/stating the y feel comfortable at this time. Dr Espinosa evaluated patient. - Lab Data Result diagrams: 04/28/20 17:22 04/28/20 17: Lab Results 04/28/20 04/28/20 04/28/20 Range/Units 17: 17: 17: WBC 8.9 (3.8-10.6) k/uL RBC 4.57 (4.30-5.90) m/uL Hgb 15.0 (13.0-17.5) gm/dL Hct 42.8 (39.0-53.0) % MCV 93.8 (80.0-100.0) fL MCH 32.8 (25.0-35.0) pg MCHC 34.9 (31.0-37.0) g/dL RDW 12.5 (11.5-15.5) % Plt Count 187 (150-450) k/uL MPV 7.5 Neutrophils % 70 % Lymphocytes % 15 % Monocytes % 8 % Eosinophils % 4 % Basophils % 1 % Neutrophils # 6.2 (1.3-7.7) k/uL Lymphocytes # 1.3 (1.0-4.8) k/uL Monocytes # 0.7 (0-1.0) k/uL Eosinophils # 0.4 (0-0.7) k/uL Basophils # 0.1 (0-0.2) k/uL PT 10.4 (9.0-12.0) sec INR 1.0 (<1.2) APTT 24.5 (22.0-30.0) sec Sodium 136 L (137-145) mmol/L Potassium 4.2 (3.5-5.1) mmol/L Chloride 103 (98-107) mmol/L Carbon Dioxide 26 (22-30) mmol/L Anion Gap 7 mmol/L BUN 21 H (9-20) mg/dL Creatinine 0.98 (0.66-1.25) mg/dL Est GFR (CKD-EPI)AfAm 88 (>60 ml/min/1.73 sqM) Est GFR (CKD-EPI)NonAf 76 (>60 ml/min/1.73 sqM) Glucose 103 H (74-99) mg/dL Plasma Lactic Acid Santi (0.7-2.0) mmol/L Calcium 9.7 (8.4-10.2) mg/dL Magnesium 2.0 (1.6-2.3) mg/dL Total Bilirubin 0.6 (0.2-1.3) mg/dL AST 23 (17-59) U/L ALT 21 (4-49) U/L Alkaline Phosphatase 90 (38-126) U/L Troponin I (0.000-0.034) ng/mL NT-Pro-B Natriuret Pep pg/mL Total Protein 6.8 (6.3-8.2) g/dL Albumin 4.2 (3.5-5.0) g/dL Coronavirus (PCR) (Not Detectd) 04/28/20 04/28/20 04/28/20 Range/Units 17:22 17:22 17:22 WBC (3.8-10.6) k/uL RBC (4.30-5.90) m/uL Hgb (13.0-17.5) gm/dL Hct (39.0-53.0) % MCV (80.0-100.0) fL MCH (25.0-35.0) pg MCHC (31.0-37.0) g/dL RDW (11.5-15.5) % Plt Count (150-450) k/uL MPV Neutrophils % % Lymphocytes % % Monocytes % % Eosinophils % % Basophils % % Neutrophils # (1.3-7.7) k/uL Lymphocytes # (1.0-4.8) k/uL Monocytes # (0-1.0) k/uL Eosinophils # (0-0.7) k/uL Basophils # (0-0.2) k/uL PT (9.0-12.0) sec INR (<1.2) APTT (22.0-30.0) sec Sodium (137-145) mmol/L Potassium (3.5-5.1) mmol/L Chloride (98-107) mmol/L Carbon Dioxide (22-30) mmol/L Anion Gap mmol/L BUN (9-20) mg/dL Creatinine (0.66-1.25) mg/dL Est GFR (CKD-EPI)AfAm (>60 ml/min/1.73 sqM) Est GFR (CKD-EPI)NonAf (>60 ml/min/1.73 sqM) Glucose (74-99) mg/dL Plasma Lactic Acid Santi 1.8 (0.7-2.0) mmol/L Calcium (8.4-10.2) mg/dL Magnesium (1.6-2.3) mg/dL Total Bilirubin (0.2-1.3) mg/dL AST (17-59) U/L ALT (4-49) U/L Alkaline Phosphatase (38-126) U/L Troponin I <0.012 (0.000-0.034) ng/mL NT-Pro-B Natriuret Pep 81 pg/mL Total Protein (6.3-8.2) g/dL Albumin (3.5-5.0) g/dL Coronavirus (PCR) (Not Detectd) 04/28/20 Range/Units 18:46 WBC (3.8-10.6) k/uL RBC (4.30-5.90) m/uL Hgb (13.0-17.5) gm/dL Hct (39.0-53.0) % MCV (80.0-100.0) fL MCH (25.0-35.0) pg MCHC (31.0-37.0) g/dL RDW (11.5-15.5) % Plt Count (150-450) k/uL MPV Neutrophils % % Lymphocytes % % Monocytes % % Eosinophils % % Basophils % % Neutrophils # (1.3-7.7) k/uL Lymphocytes # (1.0-4.8) k/uL Monocytes # (0-1.0) k/uL Eosinophils # (0-0.7) k/uL Basophils # (0-0.2) k/uL PT (9.0-12.0) sec INR (<1.2) APTT (22.0-30.0) sec Sodium (137-145) mmol/L Potassium (3.5-5.1) mmol/L Chloride (98-107) mmol/L Carbon Dioxide (22-30) mmol/L Anion Gap mmol/L BUN (9-20) mg/dL Creatinine (0.66-1.25) mg/dL Est GFR (CKD-EPI)AfAm (>60 ml/min/1.73 sqM) Est GFR (CKD-EPI)NonAf (>60 ml/min/1.73 sqM) Glucose (74-99) mg/dL Plasma Lactic Acid Santi (0.7-2.0) mmol/L Calcium (8.4-10.2) mg/dL Magnesium (1.6-2.3) mg/dL Total Bilirubin (0.2-1.3) mg/dL AST (17-59) U/L ALT (4-49) U/L Alkaline Phosphatase (38-126) U/L Troponin I (0.000-0.034) ng/mL NT-Pro-B Natriuret Pep pg/mL Total Protein (6.3-8.2) g/dL Albumin (3.5-5.0) g/dL Coronavirus (PCR) Not Detected (Not Detectd) Disposition Clinical Impression: COPD exacerbation Disposition: HOME SELF-CARE Condition: Good Additional Instructions: Please use medication as discussed. Please follow-up with family doctor with Dr. Lambert in the morning please call around [phone] to scheduled your appointmen t. Please return to emergency room if the symptoms increase or worsen or for any other concerns. Prescriptions: predniSONE [Deltasone] 20 mg PO DAILY 10 Days #10 tab Azithromycin [Zithromax Z-pack (6 tabs)] 0 mg PO DIRECTED #6 tab Is patient prescribed a controlled substance at d/c from ED?: No Referrals: Fernando Lambert Jr, [Primary Care Provider] - 1-2 days Time of Disposition: 19:34
--- NOTE | 2020-04-28 19:04 | XR ---
EXAMINATION TYPE: XR chest 2V DATE OF EXAM: 04/28/2020 COMPARISON: 04/07/2020. HISTORY: Shortness of breath. TECHNIQUE: Frontal and lateral views of the chest are obtained. FINDINGS: There is increased mild to moderate bibasilar interstitial opacities. Unchanged 5 mm right upper lobe nodule. No pleural effusion, or pneumothorax seen. The cardiac silhouette size is within normal limits. The osseous structures are stable. Multilevel thoracolumbar vertebroplasty seen. IMPRESSION: Increased bibasilar interstitial opacities, concerning for acute on chronic interstitial disease.
[2020-04-28 19:17] VITALS: BP 137/84; PULSE 105
[2020-04-28] MEDS ORDERED: AZITHROMYCIN 500 MG TAB PO STA (19:32)
[2020-04-28] MEDS ORDERED: IPRATROPIUM-ALBUTEROL 3 ML NEB INHALATION SCH (20:00)
== END 2020-04-28 19:59 | disposition home or self-care (01) ==
LOC: EC 16:55
DX: J44.1 Chronic obstructive pulmonary disease with (acute) exacerbation (principal); I48.0 Paroxysmal atrial fibrillation; N40.0 Benign prostatic hyperplasia without lower urinary tract symptoms; F17.200 Nicotine dependence, unspecified, uncomplicated; Z20.822 Contact with and (suspected) exposure to COVID-19; Z91.041 Radiographic dye allergy status; Z91.040 Latex allergy status; Z79.01 Long term (current) use of anticoagulants; Z79.51 Long term (current) use of inhaled steroids; Z79.899 Other long term (current) drug therapy
CPT/HCPCS: 36415; 94640; 93005; 83880; 80053; 83605; 83735; 84484; 85025; 85610; 85730; 87635; 71046; 99285; 96374; J2930

== ENCOUNTER → 2020-05-11 | Outpatient (CLI) | payer MEDICARE ==
--- NOTE | 2020-05-18 11:01 | P.ARTDOP ---
Arterial Doppler LOWER EXTREMITY ARTERIAL DOPPLER: DATE OF SERVICE: 05/11/2020 Reason for study: Leg pain. Doppler waveforms: Multiphasic bilaterally throughout. Pulse volume recording: []. Pressure gradients: None. Ankle-brachial indices: Greater than 1 bilaterally. Toe brachial indices: 0.68 on the right, 0.66 on the left Impression: Normal study.
== END | disposition home or self-care (01) ==
LOC: RADUSWWP 13:24
PROVIDERS: ATTEND Family Medicine
DX: I73.9 Peripheral vascular disease, unspecified (principal); Z91.041 Radiographic dye allergy status; Z91.040 Latex allergy status
CPT/HCPCS: 93922; 93923

== ENCOUNTER 2020-05-21 07:27 | Inpatient (IN) | payer MEDICARE ==
[2020-05-21] MEDS ORDERED: IPRATROPIUM-ALBUTEROL 3 ML NEB INHALATION STA (07:37)
[2020-05-21] MEDS ORDERED: methylPREDNISolone SOD SUCCI 125 MG/2 ML VIAL IV STA (07:37)
--- NOTE | 2020-05-21 07:41 | ED ---
SOB HPI - General Source: patient, RN notes reviewed Mode of arrival: ambulatory Limitations: physical limitation <Frankie Keane - Last Filed: 05/21/20 09:25> <Gregg Harding - Last Filed: 05/21/20 09:39> - General Chief Complaint: Shortness of Breath Stated Complaint: SOB Time Seen by Provider: 05/21/20 07:34 - History of Present Illness Initial Comments: This a 75-year-old male presents emergency Department chief complaint of shortness of breath. Patient states his started around 3 AM this morning. Patient states he is a long-time smoker of 60+ years. Patient does have COPD. Patient gave himself two breathing treatments this morning with minimal relief. No fevers or chills. Patient denies any chest pain states is just tight. No significant calf pain but states that some swelling no history of CHF. Patient has a history of A. fib on anticoagulants. Patient has no abdominal issues including nausea and diarrhea constipation. (Frankie Keane) - Related Data Home Medications Medication Instructions Recorded Confirmed Tamsulosin HCl [Flomax] 0.4 mg PO BID 03/24/18 04/28/20 Apixaban [Eliquis] 5 mg PO BID 09/14/18 04/28/20 Metoprolol Tartrate [Lopressor] 50 mg PO BID 02/04/19 04/28/20 Ergocalciferol [Vitamin D2 50,000 unit PO TU 05/05/19 04/28/20 (ISDTERRY)] Finasteride [Proscar] 5 mg PO DAILY 05/05/19 04/28/20 Alendronate Sodium [Fosamax] 70 mg PO GROVES 08/21/19 04/28/20 Ipratropium-Albuterol Nebulize 3 ml INHALATION RT-QID 02/27/20 04/28/20 [Duoneb 0.5 mg-3 mg/3 ml Soln] Albuterol Sulfate [Proair Hfa] 2 puff INHALATION RT-QID PRN 04/28/20 04/28/20 Previous Rx's Medication Instructions Recorded Umeclidinium [place] [Incruse 1 puff INHALATION RT-DAILY 30 Days 02/28/20 Ellipta] #1 device Pantoprazole Sodium [Protonix] 40 mg PO DAILY #14 tablet. 04/08/20 Azithromycin [Zithromax Z-pack (6 0 mg PO DIRECTED #6 tab 04/28/20 tabs)] predniSONE [Deltasone] 20 mg PO DAILY 10 Days #10 tab 04/28/20 Allergies Allergy/AdvReac Type Severity Reaction Status Date / Time Iodinated Contrast Media Allergy Rash/Hives Verified 05/21/20 07:30 [Iodinated Contrast- Oral and IV Dye] latex Allergy Rash/Hives Verified 05/21/20 07:30 Review of Systems ROS Other: All systems not noted in ROS Statement are negative. <Frankie Keane - Last Filed: 05/21/20 09:25> ROS Other: All systems not noted in ROS Statement are negative. <Gregg Harding - Last Filed: 05/21/20 09:39> ROS Statement: Those systems with pertinent positive or pertinent negative responses have been documented in the HPI. Past Medical History Past Medical History: Atrial Fibrillation, COPD, Pneumonia, Prostate Disorder Additional Past Medical History / Comment(s): Paroxysmal Afib, bronchitis, pulmonary nodules/negative pet scan, BPH, constipation, vertigo, chronic low back pain/DDD. History of Any Multi-Drug Resistant Organisms: None Reported Past Surgical History: Back Surgery Additional Past Surgical History / Comment(s): Bilateral cataract removals-lens implants, colonoscopy, multiple kyphoplasties. Past Anesthesia/Blood Transfusion Reactions: No Reported Reaction Additional Past Anesthesia/Blood Transfusion Reaction / Comment(s): Has never received any blood transfusions. Past Psychological History: No Psychological Hx Reported Smoking Status: Current every day smoker Past Alcohol Use History: None Reported Past Drug Use History: None Reported - Past Family History Mother Family Medical History: AFIB, Dementia Father Family Medical History: Myocardial Infarction ([place]) Additional Family Medical History / Comment(s): [place] 70's [place] <Frankie Keane - Last Filed: 05/21/20 09:25> General Exam Limitations: physical limitation General appearance: alert, in no apparent distress Head exam: Present: atraumatic, normocephalic, normal inspection Eye exam: Present: normal appearance, PERRL, EOMI. Absent: scleral icterus, conjunctival injection, periorbital swelling ENT exam: Present: normal exam, normal oropharynx, mucous membranes moist, TM's normal bilaterally Neck exam: Present: normal inspection, full ROM. Absent: tenderness, meningismus, lymphadenopathy Respiratory exam: Present: respiratory distress (Moderate), wheezes (Bilateral throughout). Absent: rales, rhonchi, stridor Cardiovascular Exam: Present: regular rate, normal rhythm, normal heart sounds. Absent: systolic murmur, diastolic murmur, rubs, gallop, clicks GI/Abdominal exam: Present: soft, normal bowel sounds. Absent: distended, tenderness, guarding, rebound, rigid Extremities exam: Present: pedal edema (1+). Absent: calf tenderness Neurological exam: Present: alert Skin exam: Present: warm, dry, intact, normal color. Absent: rash <Frankie Keane - Last Filed: 05/21/20 09:25> Course <Gregg Harding - Last Filed: 05/21/20 09:39> Vital Signs 05/21/20 05/21/20 05/21/20 07:27 08:07 08:35 Temperature 97.5 F L Pulse Rate 83 80 83 Respiratory 25 H Rate Blood Pressure 121/66 O2 Sat by Pulse 94 L Oximetry 05/21/20 09:20 Temperature Pulse Rate 90 Respiratory 20 Rate Blood Pressure 100/75 O2 Sat by Pulse 94 L Oximetry - Reevaluation(s) Reevaluation #1: 05/21/20 09:39 PA supervision: I did personally evaluate this patient [id number] he does present with complaints shortness of breath began early this morning. He has had a long history of smoking and COPD. Workup demonstrated diminished breath sounds with wheezing. Patient has scattered interstitial infiltrates on x-ray evidence of pneumonia in addition COPD exacerbation the patient be admitted Dr. Ortega. Assessment and plan. (Gregg Harding) Medical Decision Making - Lab Data Result diagrams: 05/21/20 07:43 05/21/20 07:43 - EKG Data -: EKG Interpreted by [place] <Frankie Keane - Last Filed: 05/21/20 09:25> - Lab Data Result diagrams: 05/21/20 07:43 05/21/20 07:43 <Gregg Harding - Last Filed: 05/21/20 09:39> - Medical Decision Making 75-year-old male presented for shortness breath. Patient's found to have acute COPD exacerbation. Patient was given multiple breathing treatments with minimal improvement. Patient was given IV steroids. X-ray does show acute infiltrate. Labs otherwise unremarkable. Patient will be admitted for IV steroids, breathing treatments. (Frankie Keane) - Lab Data Lab Results 05/21/20 05/21/20 05/21/20 Range/Units 07:43 07:43 07:43 WBC 8.5 (3.8-10.6) k/uL RBC 4.61 (4.30-5.90) m/uL Hgb 14.7 (13.0-17.5) gm/dL Hct 43.3 (39.0-53.0) % MCV 94.0 (80.0-100.0) fL MCH 31.9 (25.0-35.0) pg MCHC 33.9 (31.0-37.0) g/dL RDW 13.5 (11.5-15.5) % Plt Count 195 (150-450) k/uL MPV 7.3 Neutrophils % 69 % Lymphocytes % 15 % Monocytes % 8 % Eosinophils % 5 % Basophils % 0 % Neutrophils # 5.9 (1.3-7.7) k/uL Lymphocytes # 1.3 (1.0-4.8) k/uL Monocytes # 0.7 (0-1.0) k/uL Eosinophils # 0.4 (0-0.7) k/uL Basophils # 0.0 (0-0.2) k/uL PT 10.1 (9.0-12.0) sec INR 0.9 (<1.2) APTT 24.5 (22.0-30.0) sec Sodium 136 L (137-145) mmol/L Potassium 4.2 (3.5-5.1) mmol/L Chloride 103 (98-107) mmol/L Carbon Dioxide 27 (22-30) mmol/L Anion Gap 6 mmol/L BUN 24 H (9-20) mg/dL Creatinine 0.91 (0.66-1.25) mg/dL Est GFR (CKD-EPI)AfAm >90 (>60 ml/min/1.73 sqM) Est GFR (CKD-EPI)NonAf 82 (>60 ml/min/1.73 sqM) Glucose 94 (74-99) mg/dL Plasma Lactic Acid Santi (0.7-2.0) mmol/L Calcium 9.7 (8.4-10.2) mg/dL Magnesium 1.9 (1.6-2.3) mg/dL Total Bilirubin 0.6 (0.2-1.3) mg/dL AST 25 (17-59) U/L ALT 27 (4-49) U/L Alkaline Phosphatase 89 (38-126) U/L Troponin I (0.000-0.034) ng/mL Total Protein 6.4 (6.3-8.2) g/dL Albumin 3.9 (3.5-5.0) g/dL Coronavirus (PCR) (Not Detectd) 05/21/20 05/21/20 05/21/20 Range/Units 07:43 07:43 07:43 WBC (3.8-10.6) k/uL RBC (4.30-5.90) m/uL Hgb (13.0-17.5) gm/dL Hct (39.0-53.0) % MCV (80.0-100.0) fL MCH (25.0-35.0) pg MCHC (31.0-37.0) g/dL RDW (11.5-15.5) % Plt Count (150-450) k/uL MPV Neutrophils % % Lymphocytes % % Monocytes % % Eosinophils % % Basophils % % Neutrophils # (1.3-7.7) k/uL Lymphocytes # (1.0-4.8) k/uL Monocytes # (0-1.0) k/uL Eosinophils # (0-0.7) k/uL Basophils # (0-0.2) k/uL PT (9.0-12.0) sec INR (<1.2) APTT (22.0-30.0) sec Sodium (137-145) mmol/L Potassium (3.5-5.1) mmol/L Chloride (98-107) mmol/L Carbon Dioxide (22-30) mmol/L Anion Gap mmol/L BUN (9-20) mg/dL Creatinine (0.66-1.25) mg/dL Est GFR (CKD-EPI)AfAm (>60 ml/min/1.73 sqM) Est GFR (CKD-EPI)NonAf (>60 ml/min/1.73 sqM) Glucose (74-99) mg/dL Plasma Lactic Acid Santi 1.0 (0.7-2.0) mmol/L Calcium (8.4-10.2) mg/dL Magnesium (1.6-2.3) mg/dL Total Bilirubin (0.2-1.3) mg/dL AST (17-59) U/L ALT (4-49) U/L Alkaline Phosphatase (38-126) U/L Troponin I <0.012 (0.000-0.034) ng/mL Total Protein (6.3-8.2) g/dL Albumin (3.5-5.0) g/dL Coronavirus (PCR) Not Detected (Not Detectd) - EKG Data EKG Comments: EKG 27:41 normal sinus rhythm rate of 84 CA 182 QRS 78 QT/QTC 364/4:30 (Frankie Keane) Disposition <Frankie Keane - Last Filed: 05/21/20 09:25> <Gregg Harding - Last Filed: 05/21/20 09:39> Clinical Impression: COPD with acute exacerbation, Pneumonia Disposition: ADMITTED IP TO THIS HOSP Condition: Fair Referrals: Fernando Lambert Jr, [Primary Care Provider] - 1-2 days
[2020-05-21 08:03] LABS: Basophils % (A) 0 %; Eosinophils # (A) 0.4 k/uL (0-0.7); Eosinophils % (A) 5 %; HCT 43.3 % (39.0-53.0); HGB 14.7 gm/dL (13.0-17.5); Lymphocytes # (A) 1.3 k/uL (1.0-4.8); Lymphocytes % (A) 15 %; MCH 31.9 pg (25.0-35.0); MCHC 33.9 g/dL (31.0-37.0); Mean Platelet Volume 7.3; Monocytes # (A) 0.7 k/uL (0-1.0); Monocytes % (A) 8 %; Neutrophils # (A) 5.9 k/uL (1.3-7.7); Neutrophils % (A) 69 %; Platelet Count 195 k/uL (150-450); RBC 4.61 m/uL (4.30-5.90); RDW 13.5 % (11.5-15.5); WBC 8.5 k/uL (3.8-10.6)
[2020-05-21 08:16] LABS: INR 0.9 (<1.2); Partial Thromboplastin Time 24.5 sec (22.0-30.0); Prothrombin Time 10.1 sec (9.0-12.0)
[2020-05-21 08:25] LABS: ALT 27 U/L (4-49); AST 25 U/L (17-59); African American GFR (CKD) >90 (>60 ml/min/1.73 sqM); Albumin 3.9 g/dL (3.5-5.0); Alkaline Phosphatase 89 U/L (38-126); Anion Gap 6 mmol/L; Blood Urea Nitrogen 24 mg/dL (9-20); Calcium 9.7 mg/dL (8.4-10.2); Carbon Dioxide 27 mmol/L (22-30); Chloride 103 mmol/L (98-107); Glucose 94 mg/dL (74-99); Magnesium 1.9 mg/dL (1.6-2.3); Non-African American GFR(CKD) 82 (>60 ml/min/1.73 sqM); Potassium 4.2 mmol/L (3.5-5.1); Sodium 136 mmol/L (137-145); Total Bilirubin 0.6 mg/dL (0.2-1.3); Total Protein 6.4 g/dL (6.3-8.2)
--- NOTE | 2020-05-21 09:19 | XR ---
EXAMINATION TYPE: XR chest 2V DATE OF EXAM: 05/21/2020 COMPARISON: 04/28/2020 INDICATION: Short of breath TECHNIQUE: Frontal and lateral views of the chest are obtained. FINDINGS: The heart size is normal. The pulmonary vasculature is normal. Scattered bilateral infiltrates are present. These are nonspecific and can be compatible with atypica l pneumonia in the proper clinical setting. Multiple vertebral plasties are evident. There is hyperi nflation present. IMPRESSION: 1. Scattered nonspecific infiltrates can be compatible with atypical pneumonia. Findings are improved from comparison.
[2020-05-21] MEDS ORDERED: AZITHROMYCIN 500 MG in SODIUM CHLORIDE 0.9% 250 ML IVPB STA (09:26)
[2020-05-21] MEDS ORDERED: IPRATROPIUM-ALBUTEROL 3 ML NEB INHALATION PRN (09:27)
[2020-05-21] MEDS: IPRATROPIUM-ALBUTEROL 3 ML NEB INHALATION SCH ×3 (11:50→19:30)
[2020-05-21] MEDS ORDERED: methylPREDNISolone SOD SUCCI 125 MG/2 ML VIAL IV SCH (12:00)
--- NOTE | 2020-05-21 12:43 | P.HPIM ---
History of Present Illness H&P Date: 05/21/20 Chief Complaint: COPD exacerbation This is a 74-year-old gentleman with history of paroxysmal atrial fibrillation, COPD, pulmonary nodules, back surgery, ongoing nicotine dependence-at least a [id number] smoker and multiple other medical issues. presented to the ER with complaints of worsening dyspnea, nonproductive cough that awoke him this morning at approximately 2:30 AM.. Denies chest pain, palpitations. Denies fever or chills. No hemoptysis. Minimal nonproductive cough. Denies lightheadedness, dizziness or focal deficits. Denies nausea vomiting or diarrhea. Denies syncope. Chest x-ray reported scattered nonspecific infiltrates can be compatible with atypical pneumonia. Findings are improved., with no obvious heart failure. WBC count is normal. He is not anemic. INR is normal. Chemistries are essentially normal, but showing some minimal dehydration with a BUN 24 crit and 0.91. Troponin is less than 0.012. Coronavirus PCR screening is negative he is currently on 2 L of oxygen at 97% SaO2. Review of Systems All systems: negative Past Medical History Past Medical History: Atrial Fibrillation, COPD, Pneumonia, Prostate Disorder Additional Past Medical History / Comment(s): Paroxysmal Afib, bronchitis, pulmonary nodules/negative pet scan, BPH, constipation, vertigo, chronic low back pain/DDD. History of Any Multi-Drug Resistant Organisms: None Reported Past Surgical History: Back Surgery Additional Past Surgical History / Comment(s): Bilateral cataract removals-lens implants, colonoscopy, multiple kyphoplasties. Past Anesthesia/Blood Transfusion Reactions: No Reported Reaction Additional Past Anesthesia/Blood Transfusion Reaction / Comment(s): Has never received any blood transfusions. Past Psychological History: No Psychological Hx Reported Additional Psychological History / Comment(s): Pt resides with his son, (Jt). They live in a downstairs apartment. Pt manages his own medications. He has a nebulizer. His son cooks and drives pt to [employer] recently passed [email or web address]. Smoking Status: Current every day smoker Past Alcohol Use History: None Reported Additional Past Alcohol Use History / Comment(s): Pt started smoking age [age]) got up to 5 ppd for many years then cut down to 3 ppd, currently smoking a ppd or alittle more if his back is hurting. Past Drug Use History: None Reported - Past Family History Mother Family Medical History: AFIB, Dementia Father Family Medical History: Myocardial Infarction ([place]) Additional Family Medical History / Comment(s): in his 70's [place] Medications and Allergies Home Medications Medication Instructions Recorded Confirmed Type Tamsulosin HCl [Flomax] 0.4 mg PO BID 03/24/18 05/21/20 History Apixaban [Eliquis] 5 mg PO BID 09/14/18 05/21/20 History Metoprolol Tartrate [Lopressor] 50 mg PO BID 02/04/19 05/21/20 History Ergocalciferol [Vitamin D2 50,000 unit PO TU 05/05/19 05/21/20 History (DRISDOL)] Finasteride [Proscar] 5 mg PO DAILY 05/05/19 05/21/20 History Alendronate Sodium [Fosamax] 70 mg PO GROVES 08/21/19 05/21/20 History Ipratropium-Albuterol Nebulize 3 ml INHALATION RT-QID 02/27/20 05/21/20 History [Duoneb 0.5 mg-3 mg/3 ml Soln] Umeclidinium [place] [Incruse 1 puff INHALATION RT-DAILY 30 Days 02/28/20 05/21/20 Rx Ellipta] #1 device Albuterol Sulfate [Proair Hfa] 2 puff INHALATION RT-QID PRN 04/28/20 05/21/20 History Budesonide/Formoterol Fumarate 2 puff INHALATION RT-BID 05/21/20 05/21/20 History [Symbicort 160-4.5 Mcg Inhaler] Allergies Allergy/AdvReac Type Severity Reaction Status Date / Time Iodinated Contrast Media Allergy Rash/Hives Verified 05/21/20 09:54 [Iodinated Contrast- Oral and IV Dye] latex Allergy Rash/Hives Verified 05/21/20 09:54 Physical Exam Vitals: Vital Signs Temp Pulse Resp BP Pulse Ox 05/21/20 12:01 92 05/21/20 11:50 92 97 05/21/20 09:20 90 20 100/75 94 L 05/21/20 08:35 83 05/21/20 08:07 80 05/21/20 07:27 97.5 F L 83 25 H 121/66 94 L Intake and Output 05/20/20 05/21/20 05/21/20 22:59 06:59 14:59 Other: Weight 68.039 kg ENERAL EXAM: Pleasant 74-year-old gentleman. Alert, active, comfortable in no apparent distress, sitting up at bedside HEAD: Normocephalic. Atraumatic. EYES: Normal reaction of pupils, equal size. NOSE: Clear with pink turbinates. THROAT: No erythema or exudates. NECK: No masses, no JVD. CHEST: No chest wall deformity. LUNGS: Diminished air entry,diminished breath sounds with minimal scattered rhonchi, no wheezes CVS: S1 and S2 normal with no audible murmur, regular rhythm. ABDOMEN: No hepatosplenomegaly, normal bowel sounds, no guarding or rigidity. SKIN: Warm and dry, No rashes CENTRAL NERVOUS SYSTEM: No focal deficits, tone is normal in all 4 extremities. EXTREMITIES: There is no peripheral edema. No clubbing, no cyanosis. Peripheral pulses are intact. Results CBC & Chem 7: 05/21/20 07:43 05/21/20 07:43 Labs: Abnormal Lab Results - Last 24 Hours (Table) 05/21/20 Range/Units 07:43 Sodium 136 L (137-145) mmol/L BUN 24 H (9-20) mg/dL Chest x-ray: report reviewed Thrombosis Risk Factor Assmnt - DVT/VTE Prophylaxis DVT/VTE Prophylaxis: Pharmacologic Prophylaxis ordered - Choose All That Apply Any of the Below Risk Factors Present?: Yes Each Factor Represents 1 point: Abnormal pulmonary function (COPD), Obesity (BMI >25) Other Risk Factors: Yes Each Risk Factor Represents 3 Points: Age 75 years or older Thrombosis Risk Factor Assessment Total Risk Factor Score: 5 Thrombosis Risk Factor Assessment Level: High Risk Assessment and Plan (1) COPD with acute exacerbation Current Visit: Yes Status: Acute Code(s): J44.1 - CHRONIC OBSTRUCTIVE PULMONARY DISEASE W (ACUTE) EXACERBATION SNOMED Code(s): 704876170 (2) Acute hypercapnic respiratory failure Current Visit: No Status: Acute Code(s): J96.02 - ACUTE RESPIRATORY FAILURE WITH HYPERCAPNIA SNOMED Code(s): 719714276 (3) Atrial fibrillation Current Visit: No Status: Acute Code(s): I48.91 - UNSPECIFIED ATRIAL FIBRILLATION SNOMED Code(s): 28055339 (4) BPH (benign prostatic hyperplasia) Current Visit: No Status: Acute Code(s): N40.0 - BENIGN PROSTATIC HYPERPLASIA WITHOUT LOWER URINRY TRACT SYMP SNOMED Code(s): 763603315 (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 Current Visit: No Status: Acute Code(s): Z79.01 - RETIREMENT (CURRENT) USE OF ANTICOAGULANTS SNOMED Code(s): 434196830 (6) Nicotine dependence Current Visit: No Status: Acute Code(s): F17.200 - NICOTINE DEPENDENCE, UNSPECIFIED, UNCOMPLICATED SNOMED Code(s): 62621000 (7) Shortness of breath Current Visit: No Status: Acute Code(s): R06.02 - SHORTNESS OF BREATH S NOMED Code(s): 639629501 (8) Smoker Current Visit: No Status: Acute Code(s): F17.200 - NICOTINE DEPENDENCE, UNSPECIFIED, UNCOMPLICATED SNOMED Code(s): 52919173 (9) Tobacco abuse counseling Current Visit: No Status: Acute Code(s): Z71.6 - TOBACCO ABUSE COUNSELING SNOMED Code(s): 454365456
[2020-05-21] MEDS: FINASTERIDE 5 MG TAB PO SCH (12:54)
[2020-05-21] MEDS: TAMSULOSIN 0.4 MG CAP.ER.24H PO SCH ×2 (12:54→20:07)
[2020-05-21] MEDS: APIXABAN 5 MG TAB PO SCH ×2 (12:54→20:07)
[2020-05-21] MEDS: METOPROLOL TARTRATE 50 MG TAB PO SCH ×2 (12:55→20:07)
[2020-05-21] MEDS: methylPREDNISolone SOD SUCCI 40 MG/ML 1 ML VIAL IV SCH ×2 (17:56→23:00)
[2020-05-21] MEDS: SYMBICORT 160-4.5 MCG INHALER INHALATION SCH (19:30)
[2020-05-22] MEDS: methylPREDNISolone SOD SUCCI 40 MG/ML 1 ML VIAL IV SCH ×2 (05:10→12:37)
[2020-05-22 07:54] VITALS: BP 120/79; RESP 20; TEMP 98.3
[2020-05-22] MEDS: TAMSULOSIN 0.4 MG CAP.ER.24H PO SCH (07:58)
[2020-05-22] MEDS: METOPROLOL TARTRATE 50 MG TAB PO SCH (07:58)
[2020-05-22] MEDS: APIXABAN 5 MG TAB PO SCH (07:58)
[2020-05-22] MEDS: FINASTERIDE 5 MG TAB PO SCH (07:58)
[2020-05-22] MEDS ORDERED: IPRATROPIUM 0.5 MG/2.5 ML NEBU INHALATION SCH (08:00)
[2020-05-22] MEDS ORDERED: NON FORMULARY DRUG (Alendronate Sodium [Fosamax] 70 MG Tablet) PO SCH (09:00)
[2020-05-22] MEDS: IPRATROPIUM-ALBUTEROL 3 ML NEB INHALATION SCH (09:08)
[2020-05-22] MEDS: SYMBICORT 160-4.5 MCG INHALER INHALATION SCH (09:08)
[2020-05-22 09:18] LABS: Basophils # (A) 0.02 X 10*3/uL (0.00-0.10); Basophils % (A) 0.2 %; Eosinophils # (A) 0.01 X 10*3/uL (0.04-0.35); Eosinophils % (A) 0.1 %; HGB 13.4 g/dL (13.0-17.0); Lymphocytes # (A) 0.61 X 10*3/uL (0.90-5.00); MCH 32.8 pg (27.0-32.0); MCHC 35.3 g/dL (32.0-37.0); MCV 93.1 fL (80.0-97.0); Mean Platelet Volume 10.7 fL (9.5-12.2); Monocytes # (A) 0.53 X 10*3/uL (0.20-1.00); Monocytes % (A) 5.2 %; Neutrophils # (A) 9.01 X 10*3/uL (1.80-7.70); Platelet Count 205 X 10*3/uL (140-440); RBC 4.08 X 10*6/uL (4.40-5.60); RDW 12.7 % (11.5-14.5); WBC 10.23 X 10*3/uL (4.50-10.00)
[2020-05-22 09:35] LABS: African American GFR (CKD) 96.5 (60.0-200.0); Anion Gap 8.4 mmol/L (4.00-12.00); BUN/Creat Ratio 34.44 Ratio (12.00-20.00); Calcium 8.8 mg/dL (8.7-10.3); Carbon Dioxide 23.6 mmol/L (21.6-31.8); Non-African American GFR(CKD) 83.3 (60.0-200.0); Potassium 4.4 mmol/L (3.5-5.5)
[2020-05-22 12:01] VITALS: PULSE 92
--- NOTE | 2020-05-22 12:29 | P.DS ---
Providers Date of admission: 05/21/20 09:28 Expected date of discharge: 05/22/20 Attending physician: Jeremiah Ortega Primary care physician: Fernando Lambert - Discharge Diagnosis(es) (1) COPD with acute exacerbation Current Visit: Yes Status: Acute (2) Acute hypercapnic respiratory failure Current Visit: No Status: Acute (3) Atrial fibrillation Current Visit: No Status: Acute (4) BPH (benign prostatic hyperplasia) Current Visit: No Status: Acute (5) retirement (current) use of anticoagulants Current Visit: No Status: Acute (6) Nicotine dependence Current Visit: No Status: Acute (7) Shortness of breath Current Visit: No Status: Acute (8) Smoker Current Visit: No Status: Acute (9) Tobacco abuse counseling Current Visit: No Status: Acute Hospital Course: This is a 74-year-old gentleman with history of paroxysmal atrial fibrillation, COPD, pulmonary nodules, back surgery, ongoing nicotine dependence-at least a [id number] smoker and multiple other medical issues. presented to the ER with complaints of worsening dyspnea, nonproductive cough that awoke him this morning at approximately 2:30 AM.. Denies chest pain, palpitations. Denies fever or chills. No hemoptysis. Minimal nonproductive cough. Denies lightheadedness, dizziness or focal deficits. Denies nausea vomiting or diarrhea. Denies syncope. Chest x-ray reported scattered nonspecific infiltrates can be compatible with atypical pneumonia. Findings are improved., with no obvious heart failure. WBC count is normal. He is not anemic. INR is normal. Chemistries are essentially normal, but showing some minimal dehydration with a BUN 24 crit and 0.91. Troponin is less than 0.012. Coronavirus PCR screening is negative he is currently on 2 L of oxygen at 97% SaO2. 05/22/2020: Patient did well overnight and quickly improved. He received several updrafts that helped. His oxygen saturations remained above 92% on room air. He developed a slight leukocytosis. His air exchange was much better today and he requested discharge. He does continue to smoke and we discussed smoking cessation at length. He will follow-up in the office soon. Patient Condition at Discharge: Fair Plan - Discharge Summary Discharge Rx Participant: No New Discharge Prescriptions: New predniSONE 10 mg PO DAILY #30 tab Continue Tamsulosin HCl [Flomax] 0.4 mg PO BID Apixaban [Eliquis] 5 mg PO BID Metoprolol Tartrate [Lopressor] 50 mg PO BID Finasteride [Proscar] 5 mg PO DAILY Ergocalciferol [Vitamin D2 (DRISDOL)] 50,000 unit PO TU Alendronate Sodium [Fosamax] 70 mg PO GROVES Ipratropium-Albuterol Nebulize [Duoneb 0.5 mg-3 mg/3 ml Soln] 3 ml INHALATION RT-QID Albuterol Sulfate [Proair Hfa] 2 puff INHALATION RT-QID PRN PRN Reason: Shortness Of Breath Budesonide/Formoterol Fumarate [Symbicort 160-4.5 Mcg Inhaler] 2 puff INHALATION RT-BID Discontinued Umeclidinium [place] [Incruse Ellipta] 1 puff INHALATION RT-DAILY 30 Days #1 device Discharge Medication List Tamsulosin HCl [Flomax] 0.4 mg PO BID 03/24/18 [History] Apixaban [Eliquis] 5 mg PO BID 09/14/18 [History] Metoprolol Tartrate [Lopressor] 50 mg PO BID 02/04/19 [History] Ergocalciferol [Vitamin D2 (DRISDOL)] 50,000 unit PO TU 05/05/19 [History] Finasteride [Proscar] 5 mg PO DAILY 05/05/19 [History] Alendronate Sodium [Fosamax] 70 mg PO GROVES 08/21/19 [History] Ipratropium-Albuterol Nebulize [Duoneb 0.5 mg-3 mg/3 ml Soln] 3 ml INHALATION RT-QID 02/27/20 [History] Albuterol Sulfate [Proair Hfa] 2 puff INHALATION RT-QID PRN 04/28/20 [History] Budesonide/Formoterol Fumarate [Symbicort 160-4.5 Mcg Inhaler] 2 puff INHALATION RT-BID 05/21/20 [History] predniSONE 10 mg PO DAILY #30 tab 05/22/20 [Rx] Follow up Appointment(s)/Referral(s): Fernando Lambert Jr, [Primary Care Provider] - 1-2 days Discharge Disposition: HOME SELF-CARE
[2020-05-24] MEDS ORDERED: ERGOCALCIFEROL 1,250 MCG (50,000 IU) CAPSULE PO SCH (09:00)
== END 2020-05-22 13:12 | disposition home or self-care (01) | DRG 193 ==
LOC: EC 07:27 → 4SSUR 09:28
PROVIDERS: ADMIT Family Medicine; ATTEND Family Medicine
DX: J18.9 Pneumonia, unspecified organism (principal); J96.02 Acute respiratory failure with hypercapnia; J44.1 Chronic obstructive pulmonary disease with (acute) exacerbation; J44.0 Chronic obstructive pulmonary disease with (acute) lower respiratory infection; N40.0 Benign prostatic hyperplasia without lower urinary tract symptoms; Z71.6 Tobacco abuse counseling; F17.210 Nicotine dependence, cigarettes, uncomplicated; I48.0 Paroxysmal atrial fibrillation; Z79.01 Long term (current) use of anticoagulants; Z79.51 Long term (current) use of inhaled steroids; Z79.83 Long term (current) use of bisphosphonates; Z79.899 Other long term (current) drug therapy; Z82.49 Family history of ischemic heart disease and other diseases of the circulatory system; Z98.42 Cataract extraction status, left eye; Z98.41 Cataract extraction status, right eye; Z96.1 Presence of intraocular lens; Z20.822 Contact with and (suspected) exposure to COVID-19; R91.8 Other nonspecific abnormal finding of lung field; G89.29 Other chronic pain; M54.5 Low back pain; Z87.01 Personal history of pneumonia (recurrent); K59.00 Constipation, unspecified; Z91.041 Radiographic dye allergy status; Z91.040 Latex allergy status
CPT/HCPCS: 36415; 71046; 80048; 80053; 83605; 83735; 84484; 85025; 85610; 85730; 87040; 87635; 93005; 94640; 94760; 96374; 96375; 99285

== ENCOUNTER → 2020-05-26 | Outpatient (CLI) | payer MEDICARE ==
--- NOTE | 2020-05-26 16:33 | CT ---
EXAMINATION TYPE: CT lumbar spine wo con DATE OF EXAM: 05/26/2020 COMPARISON: 03/30/2019 HISTORY: Chronic low back pain. CT DLP: 926.3 mGycm CONTRAST: None TECHNIQUE: CT of the lumbar spine is performed on a spiral scan at 3 mm thick sections. Reconstructed images are performed in the coronal and sagittal planes. FINDINGS: Vertebral plasty at T12-L4 is evident. Vacuum disc phenomenon is present at T11-12 through L5-S1. There is narrowing of these disc heights. There may be some mild preservation of L4-5. There is fusiform prominence of the distal abdominal aor ta measuring 3.4 cm in greatest AP dimension. T12-L1: No focal disc herniation or significant disc bulge is evident. No spinal canal stenosis or neural foraminal stenosis is present. L1-L2: Some left paracentral endplate changes or disc bulge is present. Some calcified ligament may b e present. This has mild anterior thecal sac compression. No AP spinal canal stenosis is present. Nasir ral foramen are patent. L2-L3: Mild disc bulge is present with mild anterior thecal sac flattening. No AP spinal canal stenos is present. There is moderate bilateral foraminal narrowing L3-L4: Broad-based disc bulge is present with anterior thecal sac flattening. No spinal canal stenosi s is evident. There is severe bilateral foraminal stenosis. L4-L5: Broad-based disc bulge is present with mild anterior thecal sac compression. No spinal canal s tenosis is present. There appears to be moderate to severe bilateral foraminal stenosis rate L5-S1: Residual disc bulge is present with anterior thecal sac contact. No AP spinal canal stenosis o r neural foraminal stenosis is present. IMPRESSION: 1. Multilevel vacuum disc phenomenon with mild disc bulging with anterior thecal sac flattening. 2. Foraminal narrowing due to disc bulging and osseous changes greatest at L3-4 but present L4-5, L2- 3 as well. 3. Post vertebroplasty changes within the T12-L4 vertebral levels.
== END | disposition home or self-care (01) ==
LOC: RADCTMAIN 14:06
PROVIDERS: ATTEND Family Medicine
DX: M51.26 Other intervertebral disc displacement, lumbar region (principal)
CPT/HCPCS: 72131

== ENCOUNTER 2020-06-01 17:44 | Emergency (ER) | payer MEDICARE ==
[2020-06-01 18:36] VITALS: RESP 18
--- NOTE | 2020-06-01 20:44 | XR ---
EXAMINATION TYPE: XR chest 2V DATE OF EXAM: 06/01/2020 COMPARISON: 05/21/2020 HISTORY: Dizziness TECHNIQUE: FINDINGS: There is no heart failure nor confluent pneumonic infiltrate. There is slight coarsening of interstitial markings. There is vertebroplasty in the lower thoracic spine. There is multilevel lumb ar vertebroplasty. There is no pleural effusion. IMPRESSION: No active cardiopulmonary disease. Mild pulmonary fibrotic changes. No change compared to old exam.
[2020-06-01 20:59] LABS: Basophils # (A) 0.1 k/uL (0-0.2); Basophils % (A) 0 %; Eosinophils # (A) 0.2 k/uL (0-0.7); Eosinophils % (A) 2 %; HCT 47.2 % (39.0-53.0); HGB 15.8 gm/dL (13.0-17.5); Lymphocytes # (A) 1.5 k/uL (1.0-4.8); Lymphocytes % (A) 13 %; MCH 31.8 pg (25.0-35.0); MCHC 33.5 g/dL (31.0-37.0); MCV 94.7 fL (80.0-100.0); Mean Platelet Volume 7.2; Monocytes # (A) 0.8 k/uL (0-1.0); Monocytes % (A) 6 %; Neutrophils # (A) 9.2 k/uL (1.3-7.7); Neutrophils % (A) 77 %; Platelet Count 213 k/uL (150-450); RBC 4.98 m/uL (4.30-5.90); RDW 13.7 % (11.5-15.5); WBC 11.9 k/uL (3.8-10.6)
[2020-06-01 21:04] LABS: Prothrombin Time 10.5 sec (9.0-12.0)
--- NOTE | 2020-06-01 21:04 | ED ---
Dizziness HPI - General Chief Complaint: Dizziness Stated Complaint: dizzy/leg pain Time Seen by Provider: 06/01/20 19:53 Source: patient, EMS Mode of arrival: ambulatory Limitations: no limitations - History of Present Illness Initial Comments: 75-year-old male past medical history of A. fib, COPD who presents emergency room with reported presyncopal sensation. The patient reports that he was sitting at the kitchen table. Stood up as he had used the restroom and had sudden onset of dizziness. He denies associated chest pain or shortness of breath. Admits to nausea without vomiting. No headaches or visual changes. Reports a history of similar in the past. Denies any recent illnesses. No changes are bladder habits. No black, tarry or sticky stools. No fevers or chills. States that his symptoms have completely resolved at this time. No other alleviating, Perceptin or modifying factors - Related Data Home Medications Medication Instructions Recorded Confirmed Tamsulosin HCl [Flomax] 0.4 mg PO BID 03/24/18 05/21/20 Apixaban [Eliquis] 5 mg PO BID 09/14/18 05/21/20 Metoprolol Tartrate [Lopressor] 50 mg PO BID 02/04/19 05/21/20 Ergocalciferol [Vitamin D2 50,000 unit PO TU 05/05/19 05/21/20 (DRISDOL)] Finasteride [Proscar] 5 mg PO DAILY 05/05/19 05/21/20 Alendronate Sodium [Fosamax] 70 mg PO GROVES 08/21/19 05/21/20 Ipratropium-Albuterol Nebulize 3 ml INHALATION RT-QID 02/27/20 05/21/20 [Duoneb 0.5 mg-3 mg/3 ml Soln] Albuterol Sulfate [Proair Hfa] 2 puff INHALATION RT-QID PRN 04/28/20 05/21/20 Budesonide/Formoterol Fumarate 2 puff INHALATION RT-BID 05/21/20 05/21/20 [Symbicort 160-4.5 Mcg Inhaler] Previous Rx's Medication Instructions Recorded predniSONE 10 mg PO DAILY #30 tab 05/22/20 Allergies Allergy/AdvReac Type Severity Reaction Status Date / Time Iodinated Contrast Media Allergy Rash/Hives Verified 06/01/20 18:37 [Iodinated Contrast- Oral and IV Dye] latex Allergy Rash/Hives Verified 06/01/20 18:37 Review of Systems ROS Statement: Those systems with pertinent positive or pertinent negative responses have been documented in the HPI. ROS Other: All systems not noted in ROS Statement are negative. Past Medical History Past Medical History: Atrial Fibrillation, COPD, Pneumonia, Prostate Disorder Additional Past Medical History / Comment(s): Paroxysmal Afib, bronchitis, pulmonary nodules/negative pet scan, BPH, constipation, vertigo, chronic low back pain/DDD. History of Any Multi-Drug Resistant Organisms: None Reported Past Surgical History: Back Surgery Additional Past Surgical History / Comment(s): Bilateral cataract removals-lens implants, colonoscopy, multiple kyphoplasties. Past Anesthesia/Blood Transfusion Reactions: No Reported Reaction Additional Past Anesthesia/Blood Transfusion Reaction / Comment(s): Has never received any blood transfusions. Past Psychological History: No Psychological Hx Reported Smoking Status: Current every day smoker Past Alcohol Use History: None Reported Past Drug Use History: None Reported - Past Family History Mother Family Medical History: AFIB, Dementia Father Family Medical History: Myocardial Infarction ([place]) Additional Family Medical History / Comment(s): in his 70's [place] General Exam Limitations: no limitations Course Vital Signs 06/01/20 06/01/20 18:32 22:42 Temperature 97.4 F L 98 F Pulse Rate 96 106 H Respiratory 18 18 Rate Blood Pressure 147/93 120/80 O2 Sat by Pulse 98 97 Oximetry EKG Findings - EKG Comments: EKG Findings:: EKG demonstrates normal sinus rhythm with a ventricular rate of 92. AR interval 150. QRS 72. QTC 445. Q wave in lead 3. No acute ST segment elevations Medical Decision Making - Medical Decision Making Upon arrival patient was placed into room 21. Chemistry physical exam was performed. IV is established. Laboratory studies are conducted. EKG was performed. Laboratory studies are reviewed. Chest x-ray demonstrates no active cardiopulmonary disease. Results discussed patient. I also called and spoke with Dr. Sanders. Patient may be discharged home and is to call Dr. Sanders's office in the morning for an appointment. Return to the emergency room for any new or worsening symptoms. patient was discharged home in stable condition - Lab Data Result diagrams: 06/01/20 20:50 03/31/21 20:50 Lab Results 06/01/20 06/01/20 06/01/20 Range/Units 20:50 20:50 20:50 WBC 11.9 H (3.8-10.6) k/uL RBC 4.98 (4.30-5.90) m/uL Hgb 15.8 (13.0-17.5) gm/dL Hct 47.2 (39.0-53.0) % MCV 94.7 (80.0-100.0) fL MCH 31.8 (25.0-35.0) pg MCHC 33.5 (31.0-37.0) g/dL RDW 13.7 (11.5-15.5) % Plt Count 213 (150-450) k/uL MPV 7.2 Neutrophils % 77 % Lymphocytes % 13 % Monocytes % 6 % Eosinophils % 2 % Basophils % 0 % Neutrophils # 9.2 H (1.3-7.7) k/uL Lymphocytes # 1.5 (1.0-4.8) k/uL Monocytes # 0.8 (0-1.0) k/uL Eosinophils # 0.2 (0-0.7) k/uL Basophils # 0.1 (0-0.2) k/uL PT 10.5 (9.0-12.0) sec INR 1.0 (<1.2) Sodium 134 L (137-145) mmol/L Potassium 4.4 (3.5-5.1) mmol/L Chloride 101 (98-107) mmol/L Carbon Dioxide 27 (22-30) mmol/L Anion Gap 6 mmol/L BUN 19 (9-20) mg/dL Creatinine 0.78 (0.66-1.25) mg/dL Est GFR (CKD-EPI)AfAm >90 (>60 ml/min/1.73 sqM) Est GFR (CKD-EPI)NonAf 89 (>60 ml/min/1.73 sqM) Glucose 87 (74-99) mg/dL Calcium 9.5 (8.4-10.2) mg/dL Total Bilirubin 1.2 (0.2-1.3) mg/dL AST 24 (17-59) U/L ALT 27 (4-49) U/L Alkaline Phosphatase 83 (38-126) U/L Troponin I (0.000-0.034) ng/mL Total Protein 6.8 (6.3-8.2) g/dL Albumin 4.2 (3.5-5.0) g/dL 06/01/20 Range/Units 20:50 WBC (3.8-10.6) k/uL RBC (4.30-5.90) m/uL Hgb (13.0-17.5) gm/dL Hct (39.0-53.0) % MCV (80.0-100.0) fL MCH (25.0-35.0) pg MCHC (31.0-37.0) g/dL RDW (11.5-15.5) % Plt Count (150-450) k/uL MPV Neutrophils % % Lymphocytes % % Monocytes % % Eosinophils % % Basophils % % Neutrophils # (1.3-7.7) k/uL Lymphocytes # (1.0-4.8) k/uL Monocytes # (0-1.0) k/uL Eosinophils # (0-0.7) k/uL Basophils # (0-0.2) k/uL PT (9.0-12.0) sec INR (<1.2) Sodium (137-145) mmol/L Potassium (3.5-5.1) mmol/L Chloride (98-107) mmol/L Carbon Dioxide (22-30) mmol/L Anion Gap mmol/L BUN (9-20) mg/dL Creatinine (0.66-1.25) mg/dL Est GFR (CKD-EPI)AfAm (>60 ml/min/1.73 sqM) Est GFR (CKD-EPI)NonAf (>60 ml/min/1.73 sqM) Glucose (74-99) mg/dL Calcium (8.4-10.2) mg/dL Total Bilirubin (0.2-1.3) mg/dL AST (17-59) U/L ALT (4-49) U/L Alkaline Phosphatase (38-126) U/L Troponin I <0.012 (0.000-0.034) ng/mL Total Protein (6.3-8.2) g/dL Albumin (3.5-5.0) g/dL Disposition Clinical Impression: Pre-syncope Disposition: HOME SELF-CARE Condition: Stable Instructions (If sedation given, give patient instructions): Dizziness (ED) Additional Instructions: Please call Dr. Lambert's office tomorrow for an appointment. He would like to see you in office. Return to the ED for any new or worsening symptoms. Is patient prescribed a controlled substance at d/c from ED?: No Referrals: Fernando Lambert Jr, [Primary Care Provider] - 1-2 days Time of Disposition: 21:57
[2020-06-01 21:08] LABS: ALT 27 U/L (4-49); AST 24 U/L (17-59); African American GFR (CKD) >90 (>60 ml/min/1.73 sqM); Albumin 4.2 g/dL (3.5-5.0); Alkaline Phosphatase 83 U/L (38-126); Anion Gap 6 mmol/L; Blood Urea Nitrogen 19 mg/dL (9-20); Calcium 9.5 mg/dL (8.4-10.2); Carbon Dioxide 27 mmol/L (22-30); Chloride 101 mmol/L (98-107); Glucose 87 mg/dL (74-99); Non-African American GFR(CKD) 89 (>60 ml/min/1.73 sqM); Potassium 4.4 mmol/L (3.5-5.1); Sodium 134 mmol/L (137-145); Total Bilirubin 1.2 mg/dL (0.2-1.3); Total Protein 6.8 g/dL (6.3-8.2)
[2020-06-01 22:44] VITALS: BP 120/80; PULSE 106; TEMP 98
== END 2020-06-01 22:43 | disposition home or self-care (01) ==
LOC: EC 17:44
DX: R55 Syncope and collapse (principal); J44.9 Chronic obstructive pulmonary disease, unspecified; F17.200 Nicotine dependence, unspecified, uncomplicated; I48.0 Paroxysmal atrial fibrillation
CPT/HCPCS: 36415; 71046; 80053; 84484; 85025; 85610; 93005; 99284

== ENCOUNTER 2020-06-19 12:27 | Emergency (ER) | payer MEDICARE, OTHER ==
[2020-06-19 12:34] VITALS: RESP 18; TEMP 97.4
[2020-06-19] MEDS ORDERED: traMADol 50 MG STARTER PACK 3 TAB BTL PO STA (12:59)
[2020-06-19] MEDS ORDERED: KETOROLAC 15 MG/ML 1 ML VIAL IM STA (12:59)
--- NOTE | 2020-06-19 13:16 | ED ---
Back Pain HPI - General Chief Complaint: Back Pain/Injury Stated Complaint: Neck,Back,Leg Pain Time Seen by Provider: 06/19/20 12:35 Source: patient Limitations: no limitations - History of Present Illness Initial Comments: Patient is a 75-year-old male presenting to emergency Department with complaints of lower back pain, some achiness in his legs. Patient states started yesterday and persisted till today so he decided to come in. He does have history of chronic back pain, has had back surgeries in the past. He denies any falls or trauma, no fevers or chills. He states he used to take "some sort of pain medicine from his back doctor" but he does not remember what it is. He did try Tylenol or Motrin at home yesterday without improvement. He states he still is able to ambulate, he has no numbness and tingling into his legs, no saddle paresthesias. He denies any bowel or bladder incontinence. He denies any chest pain, no fevers, no shortness of breath. He has no further complaints at this time. Upon arrival to the ER his vitals are stable. - Related Data Home Medications Medication Instructions Recorded Confirmed Tamsulosin HCl [Flomax] 0.4 mg PO BID 03/24/18 05/21/20 Apixaban [Eliquis] 5 mg PO BID 09/14/18 05/21/20 Metoprolol Tartrate [Lopressor] 50 mg PO BID 02/04/19 05/21/20 Ergocalciferol [Vitamin D2 50,000 unit PO TU 05/05/19 05/21/20 (DRISDOL)] Finasteride [Proscar] 5 mg PO DAILY 05/05/19 05/21/20 Alendronate Sodium [Fosamax] 70 mg PO GROVES 08/21/19 05/21/20 Ipratropium-Albuterol Nebulize 3 ml INHALATION RT-QID 02/27/20 05/21/20 [Duoneb 0.5 mg-3 mg/3 ml Soln] Albuterol Sulfate [Proair Hfa] 2 puff INHALATION RT-QID PRN 04/28/20 05/21/20 Budesonide/Formoterol Fumarate 2 puff INHALATION RT-BID 05/21/20 05/21/20 [Symbicort 160-4.5 Mcg Inhaler] Previous Rx's Medication Instructions Recorded predniSONE 10 mg PO DAILY #30 tab 05/22/20 Allergies Allergy/AdvReac Type Severity Reaction Status Date / Time Iodinated Contrast Media Allergy Rash/Hives Verified 06/19/20 12:34 [Iodinated Contrast- Oral and IV Dye] latex Allergy Rash/Hives Verified 06/19/20 12:34 Review of Systems ROS Statement: Those systems with pertinent positive or pertinent negative responses have been documented in the HPI. ROS Other: All systems not noted in ROS Statement are negative. Past Medical History Past Medical History: Atrial Fibrillation, COPD, Pneumonia, Prostate Disorder Additional Past Medical History / Comment(s): Paroxysmal Afib, bronchitis, pulmonary nodules/negative pet scan, BPH, constipation, vertigo, chronic low back pain/DDD. History of Any Multi-Drug Resistant Organisms: None Reported Past Surgical History: Back Surgery Additional Past Surgical History / Comment(s): Bilateral cataract removals-lens implants, colonoscopy, multiple kyphoplasties. Past Anesthesia/Blood Transfusion Reactions: No Reported Reaction Additional Past Anesthesia/Blood Transfusion Reaction / Comment(s): Has never received any blood transfusions. Past Psychological History: No Psychological Hx Reported Smoking Status: Current every day smoker Past Alcohol Use History: None Reported Past Drug Use History: None Reported - Past Family History Mother Family Medical History: AFIB, Dementia Father Family Medical History: Myocardial Infarction ([place]) Additional Family Medical History / Comment(s): in his 70's [place] General Exam - General Exam Comments Initial Comments: GENERAL: Patient is well-developed and well-nourished. Patient is nontoxic and in no acute distress. HEAD: Atraumatic, normocephalic. EYES: Pupils equal round and reactive to light, extraocular movements intact, sclera anicteric, conjunctiva are normal. Eyelids were unremarkable. ENT: TMs normal, nares patent, oropharynx clear without exudates. Moist mucous membranes. NECK: Normal range of motion, supple without lymphadenopathy or JVD. LUNGS: Unlabored respirations. Breath sounds clear to auscultation bilaterally and equal. No wheezes rales or rhonchi. HEART: Regular rate and rhythm without murmurs, rubs or gallops. ABDOMEN: Soft, nontender, normoactive bowel sounds. No guarding, no rebound. No masses appreciated. : Deferred MUSCULOSKELETAL: Normal extremities with adequate strength and normal range of motion, no pitting or edema. No clubbing or cyanosis. Pain with palpation of the lumbar paraspinals, increases discomfort with trunk action. NEUROLOGICAL: Patient is alert and oriented x 3. Motor and sensory are also intact. Cranial nerves II through XII grossly intact. Symmetrical smile. Normal speech, normal gait. PSYCH: Normal mood, normal affect. SKIN: Warm, Dry, normal turgor, no rashes or lesions noted. Limitations: no limitations Course Vital Signs 06/19/20 12:29 Temperature 97.4 F L Pulse Rate 102 H Respiratory 18 Rate Blood Pressure 119/72 O2 Sat by Pulse 96 Oximetry Medical Decision Making - Medical Decision Making Patient is a 75-year-old male here with chronic back pain presenting with an increase in his lower back discomfort. Describes some generalized leg discomfort as well. He is able to ambulate on his own. Exam is unremarkable, no acute neuro deficits, no signs of cauda equina. His vitals are stable. Patient does have an appointment in a few weeks with his back doctor. I will give him a shot of Toradol today as well as tramadol starter pack. Recommended him following up with his back doctor tomorrow. He is in agreement this plan of care and he is stable for discharge. Pressures were discussed with the patient he verbalizes understanding. Disposition Clinical Impression: Acute exacerbation of chronic low back pain Disposition: HOME SELF-CARE Condition: Stable Instructions (If sedation given, give patient instructions): Acute Low Back Pain (ED) Additional Instructions: Please return to the Emergency Department if symptoms worsen or any other concerns. Recommended heat to the area, ice. Continue Tylenol for any discomfort, may take the tramadol for more severe pain. Follow-up with your back doctor. Is patient prescribed a controlled substance at d/c from ED?: No Referrals: Fernando Lambert Jr, [Primary Care Provider] - 1-2 days Time of Disposition: 13:16
[2020-06-19 13:41] VITALS: BP 134/88; PULSE 91
== END 2020-06-19 13:41 | disposition home or self-care (01) ==
LOC: EC 12:27
DX: M54.5 Low back pain (principal); I48.0 Paroxysmal atrial fibrillation; F17.200 Nicotine dependence, unspecified, uncomplicated; Z79.51 Long term (current) use of inhaled steroids; Z79.01 Long term (current) use of anticoagulants; Z79.899 Other long term (current) drug therapy; Z91.041 Radiographic dye allergy status; Z91.040 Latex allergy status
CPT/HCPCS: 99283; 96372; J1885

== ENCOUNTER 2020-06-20 06:55 | Inpatient (IN) | payer MEDICARE ==
[2020-06-20] MEDS ORDERED: SODIUM CHLORIDE 0.9% 1,000 ML IV STA (07:18)
[2020-06-20] MEDS ORDERED: DEXAMETHASONE SOD PHOSPHATE 10 MG/ML 1 ML VIAL IV STA (07:19)
[2020-06-20] MEDS ORDERED: ACETAMINOPHEN TAB 500 MG TAB PO STA (07:23)
--- NOTE | 2020-06-20 07:23 | ED ---
General Adult HPI - General Chief complaint: Dizziness Stated complaint: near syncope Time Seen by Provider: 06/20/20 07:07 Source: patient, RN notes reviewed, old records reviewed Mode of arrival: EMS Limitations: no limitations - History of Present Illness Initial comments: 75-year-old male presenting with chief complaint of lightheadedness. Patient states that he's had nausea, felt like he was going to pass out over the past 2448 hrs. He also reports cough with history of COPD. He denies central chest pain. He denies fever or chills but hasn't measured fever upon arrival. Patient has not been vaccinated against coronavirus. He denies diarrhea. Denies abdominal pain. Does report chronic neck and back pain which is unchanged with no recent injury. - Related Data Home Medications Medication Instructions Recorded Confirmed Tamsulosin HCl [Flomax] 0.4 mg PO BID 03/24/18 06/20/20 Apixaban [Eliquis] 5 mg PO BID 09/14/18 06/20/20 Metoprolol Tartrate [Lopressor] 50 mg PO BID 02/04/19 06/20/20 Ergocalciferol [Vitamin D2 50,000 unit PO TU 05/05/19 06/20/20 (DRISDOL)] Finasteride [Proscar] 5 mg PO DAILY 05/05/19 06/20/20 Alendronate Sodium [Fosamax] 70 mg PO GROVES 08/21/19 06/20/20 Ipratropium-Albuterol Nebulize 3 ml INHALATION RT-QID 02/27/20 06/20/20 [Duoneb 0.5 mg-3 mg/3 ml Soln] Albuterol Sulfate [Proair Hfa] 2 puff INHALATION RT-QID PRN 04/28/20 06/20/20 Budesonide/Formoterol Fumarate 2 puff INHALATION RT-BID 05/21/20 06/20/20 [Symbicort 160-4.5 Mcg Inhaler] Allergies Allergy/AdvReac Type Severity Reaction Status Date / Time Iodinated Contrast Media Allergy Rash/Hives Verified 06/20/20 07:57 [Iodinated Contrast- Oral and IV Dye] latex Allergy Rash/Hives Verified 06/20/20 07:57 Review of Systems ROS Statement: Those systems with pertinent positive or pertinent negative responses have been documented in the HPI. ROS Other: All systems not noted in ROS Statement are negative. Past Medical History Past Medical History: Atrial Fibrillation, COPD, Pneumonia, Prostate Disorder Additional Past Medical History / Comment(s): Paroxysmal Afib, bronchitis, pulmonary nodules/negative pet scan, BPH, constipation, vertigo, chronic low back pain/DDD. History of Any Multi-Drug Resistant Organisms: None Reported Past Surgical History: Back Surgery Additional Past Surgical History / Comment(s): Bilateral cataract removals-lens implants, colonoscopy, multiple kyphoplasties. Past Anesthesia/Blood Transfusion Reactions: No Reported Reaction Additional Past Anesthesia/Blood Transfusion Reaction / Comment(s): Has never received any blood transfusions. Past Psychological History: No Psychological Hx Reported Smoking Status: Current every day smoker Past Alcohol Use History: None Reported Past Drug Use History: None Reported - Past Family History Mother Family Medical History: AFIB, Dementia Father Family Medical History: Myocardial Infarction ([place]) Additional Family Medical History / Comment(s): in his 70's [place] General Exam Limitations: no limitations General appearance: alert, in no apparent distress Head exam: Present: atraumatic, normocephalic Eye exam: Present: normal appearance, PERRL ENT exam: Present: mucous membranes dry Respiratory exam: Present: wheezes, rhonchi, decreased breath sounds. Absent: respiratory distress Cardiovascular Exam: Present: normal rhythm, tachycardia GI/Abdominal exam: Present: soft. Absent: distended, tenderness, guarding, rebound Extremities exam: Present: normal inspection, normal capillary refill. Absent: pedal edema Neurological exam: Present: alert, oriented X3, CN II-XII intact. Absent: motor sensory deficit Psychiatric exam: Present: normal affect, normal mood Skin exam: Present: warm, dry, intact. Absent: cyanosis, diaphoretic Course Vital Signs 06/20/20 06/20/20 06/20/20 07:00 08:00 08:30 Temperature 100.7 F H Pulse Rate 122 H 114 H 109 H Respiratory 20 24 28 H Rate Blood Pressure 125/72 122/85 122/85 O2 Sat by Pulse 94 L 93 L 92 L Oximetry 06/20/20 06/20/20 09:00 09:30 Temperature Pulse Rate 105 H 101 H Respiratory 30 H 19 Rate Blood Pressure 113/63 115/65 O2 Sat by Pulse 94 L 94 L Oximetry EKG Findings - EKG Comments: EKG Findings:: EKG: Sinus tachycardia, rate of 120, TN interval 148, QRS duration 78, QTC [address] segment elevation Medical Decision Making - Medical Decision Making 75-year-old male presenting with lightheadedness, fatigue, cough. He does test positive for coronavirus. Chest x-ray shows bilateral pneumonia. His oxygenation is low 90s on room air. With ambulation the patient becomes severely dyspneic and does desaturate. He had been given monoclonal antibody with the hopes of discharge but after his endotracheal pulse ox is observed it is decided that the patient will be admitted. Case discussed with Dr. Lambert who will admit. Pulmonology placed on consult. - Lab Data Result diagrams: 06/20/20 07:38 06/20/20 07:38 Lab Results 06/20/20 06/20/20 06/20/20 Range/Units 07:38 07:38 07:38 WBC 5.0 (3.8-10.6) k/uL RBC 4.37 (4.30-5.90) m/uL Hgb 14.1 (13.0-17.5) gm/dL Hct 40.3 (39.0-53.0) % MCV 92.3 (80.0-100.0) fL MCH 32.4 (25.0-35.0) pg MCHC 35.1 (31.0-37.0) g/dL RDW 13.2 (11.5-15.5) % Plt Count 155 (150-450) k/uL MPV 7.8 Neutrophils % 76 % Lymphocytes % 11 % Monocytes % 11 % Eosinophils % 0 % Basophils % 1 % Neutrophils # 3.8 (1.3-7.7) k/uL Lymphocytes # 0.6 L (1.0-4.8) k/uL Monocytes # 0.5 (0-1.0) k/uL Eosinophils # 0.0 (0-0.7) k/uL Basophils # 0.0 (0-0.2) k/uL PT 9.9 (9.0-12.0) sec INR 0.9 (<1.2) APTT 28.2 (22.0-30.0) sec Sodium 133 L (137-145) mmol/L Potassium 3.9 (3.5-5.1) mmol/L Chloride 101 (98-107) mmol/L Carbon Dioxide 25 (22-30) mmol/L Anion Gap 7 mmol/L BUN 25 H (9-20) mg/dL Creatinine 0.96 (0.66-1.25) mg/dL Est GFR (CKD-EPI)AfAm 90 (>60 ml/min/1.73 sqM) Est GFR (CKD-EPI)NonAf 78 (>60 ml/min/1.73 sqM) Glucose 101 H (74-99) mg/dL Calcium 8.6 (8.4-10.2) mg/dL Magnesium 2.0 (1.6-2.3) mg/dL Total Bilirubin 0.5 (0.2-1.3) mg/dL AST 30 (17-59) U/L ALT 18 (4-49) U/L Alkaline Phosphatase 88 (38-126) U/L Troponin I (0.000-0.034) ng/mL Total Protein 6.3 (6.3-8.2) g/dL Albumin 3.7 (3.5-5.0) g/dL Coronavirus (PCR) (Not Detectd) 06/20/20 06/20/20 Range/Units 07:38 08:01 WBC (3.8-10.6) k/uL RBC (4.30-5.90) m/uL Hgb (13.0-17.5) gm/dL Hct (39.0-53.0) % MCV (80.0-100.0) fL MCH (25.0-35.0) pg MCHC (31.0-37.0) g/dL RDW (11.5-15.5) % Plt Count (150-450) k/uL MPV Neutrophils % % Lymphocytes % % Monocytes % % Eosinophils % % Basophils % % Neutrophils # (1.3-7.7) k/uL Lymphocytes # (1.0-4.8) k/uL Monocytes # (0-1.0) k/uL Eosinophils # (0-0.7) k/uL Basophils # (0-0.2) k/uL PT (9.0-12.0) sec INR (<1.2) APTT (22.0-30.0) sec Sodium (137-145) mmol/L Potassium (3.5-5.1) mmol/L Chloride (98-107) mmol/L Carbon Dioxide (22-30) mmol/L Anion Gap mmol/L BUN (9-20) mg/dL Creatinine (0.66-1.25) mg/dL Est GFR (CKD-EPI)AfAm (>60 ml/min/1.73 sqM) Est GFR (CKD-EPI)NonAf (>60 ml/min/1.73 sqM) Glucose (74-99) mg/dL Calcium (8.4-10.2) mg/dL Magnesium (1.6-2.3) mg/dL Total Bilirubin (0.2-1.3) mg/dL AST (17-59) U/L ALT (4-49) U/L Alkaline Phosphatase (38-126) U/L Troponin I <0.012 (0.000-0.034) ng/mL Total Protein (6.3-8.2) g/dL Albumin (3.5-5.0) g/dL Coronavirus (PCR) Detected A (Not Detectd) Disposition Clinical Impression: Pneumonia due to COVID-19 virus, COPD with acute exacerbation Disposition[facility] Condition: Stable Is patient prescribed a controlled substance at d/c from ED?: No Referrals: Fernando Lambert Jr, [Primary Care Provider] - 1-2 days Decision to Admit Reason: Admit from EC Decision Date: 06/20/20 Decision Time: 10:12
[2020-06-20] MEDS ORDERED: ALBUTEROL HFA INHALER INHALATION STA (07:24)
[2020-06-20 07:50] LABS: Basophils % (A) 1 %; Eosinophils % (A) 0 %; HCT 40.3 % (39.0-53.0); HGB 14.1 gm/dL (13.0-17.5); Lymphocytes # (A) 0.6 k/uL (1.0-4.8); Lymphocytes % (A) 11 %; MCH 32.4 pg (25.0-35.0); MCHC 35.1 g/dL (31.0-37.0); MCV 92.3 fL (80.0-100.0); Mean Platelet Volume 7.8; Monocytes # (A) 0.5 k/uL (0-1.0); Monocytes % (A) 11 %; Neutrophils # (A) 3.8 k/uL (1.3-7.7); Neutrophils % (A) 76 %; Platelet Count 155 k/uL (150-450); RBC 4.37 m/uL (4.30-5.90); RDW 13.2 % (11.5-15.5)
[2020-06-20 08:02] LABS: INR 0.9 (<1.2); Partial Thromboplastin Time 28.2 sec (22.0-30.0); Prothrombin Time 9.9 sec (9.0-12.0)
--- NOTE | 2020-06-20 08:34 | XR ---
EXAMINATION TYPE: XR chest 1V portable DATE OF EXAM: 06/20/2020 COMPARISON: Chest x-ray 06/01/2020 HISTORY: Syncope TECHNIQUE: Single frontal view of the chest is obtained. FINDINGS: Patchy bilateral airspace disease is present. Interstitium is increased. No evident pneumo thorax or pleural effusion. Cardiac mediastinal silhouette is stable accounting for differences in [place], rotation. IMPRESSION: Correlate for pneumonia, is likely underlying interstitial lung disease. Follow-up PA an d lateral chest x-ray may be of benefit.
[2020-06-20 08:37] LABS: Albumin 3.7 g/dL (3.5-5.0); Calcium 8.6 mg/dL (8.4-10.2); Potassium 3.9 mmol/L (3.5-5.1); Total Bilirubin 0.5 mg/dL (0.2-1.3); Total Protein 6.3 g/dL (6.3-8.2)
[2020-06-20] MEDS ORDERED: BAMLANIVIMAB (EUA) 700 MG, ETESEVIMAB (EUA) 1,400 MG in SODIUM CHLORIDE 0.9% 50 ML IVPB ONE (09:45)
[2020-06-20] MEDS ORDERED: SODIUM CHLORIDE 0.9% 50 ML IVPB ONE (09:45)
[2020-06-20] MEDS ORDERED: ACETAMINOPHEN TAB 325 MG TAB PO PRN (10:10)
[2020-06-20] MEDS ORDERED: NALOXONE 0.4 MG/ML 1 ML VIAL IV PRN (10:10)
[2020-06-20] MEDS: SODIUM CHLORIDE 0.9% 1,000 ML IV SCH (10:52)
[2020-06-20] MEDS: methylPREDNISolone SOD SUCCI 125 MG/2 ML VIAL IV SCH ×3 (14:13→23:06)
[2020-06-20] MEDS ORDERED: traMADol 50 MG TAB PO PRN (19:01)
[2020-06-20] MEDS ORDERED: ALBUTEROL HFA INHALER INHALATION PRN (19:01)
[2020-06-20] MEDS: APIXABAN 5 MG TAB PO SCH (19:50)
[2020-06-20] MEDS: METOPROLOL TARTRATE 50 MG TAB PO SCH (19:50)
[2020-06-20] MEDS: TAMSULOSIN 0.4 MG CAP.ER.24H PO SCH (19:50)
[2020-06-20 20:48] LABS: Glucose,Whole Blood 198 mg/dL (75-99)
[2020-06-20] MEDS: SYMBICORT 160-4.5 MCG INHALER INHALATION SCH (22:00)
[2020-06-20] MEDS: ALBUTEROL HFA INHALER INHALATION SCH (22:00)
[2020-06-21] MEDS: methylPREDNISolone SOD SUCCI 125 MG/2 ML VIAL IV SCH ×2 (05:10→12:14)
[2020-06-21 07:16] LABS: Glucose,Whole Blood 152 mg/dL (75-99)
[2020-06-21] MEDS: ALBUTEROL HFA INHALER INHALATION SCH ×2 (08:05→12:13)
[2020-06-21] MEDS: SYMBICORT 160-4.5 MCG INHALER INHALATION SCH (08:05)
[2020-06-21] MEDS ORDERED: ASCORBIC ACID 500 MG TAB PO SCH (09:00)
[2020-06-21] MEDS ORDERED: COLCHICINE 0.6 MG EACH PO SCH (09:00)
[2020-06-21] MEDS ORDERED: FINASTERIDE 5 MG TAB PO SCH (09:00)
[2020-06-21] MEDS ORDERED: ERGOCALCIFEROL 1,250 MCG (50,000 IU) CAPSULE PO SCH (09:00)
[2020-06-21] MEDS ORDERED: ZINC SULFATE 220 MG CAP PO SCH (09:00)
[2020-06-21] MEDS: TAMSULOSIN 0.4 MG CAP.ER.24H PO SCH (09:06)
[2020-06-21] MEDS: METOPROLOL TARTRATE 50 MG TAB PO SCH (09:06)
[2020-06-21] MEDS: APIXABAN 5 MG TAB PO SCH (09:06)
[2020-06-21] MEDS ORDERED: PANTOPRAZOLE 40 MG/10 ML VIAL IVP SCH (09:45)
[2020-06-21] MEDS: SODIUM CHLORIDE 0.9% 1,000 ML IV SCH (10:56)
[2020-06-21 11:57] LABS: Glucose,Whole Blood 147 mg/dL (75-99)
[2020-06-21] MEDS ORDERED: INSULIN ASPART (NovoLOG) 100 UNIT/ML VIAL SQ SCH (12:30)
[2020-06-21 14:09] VITALS: BP 119/69; PULSE 76; RESP 20; TEMP 97.5
--- NOTE | 2020-06-21 14:31 | P.HPIM ---
History of Present Illness H&P Date: 06/21/20 Chief Complaint: Lightheadedness, fatigue, cough This is a 75-year-old gentleman with history of paroxysmal atrial fibrillation, COPD, pulmonary nodules, back surgery, ongoing nicotine dependence-at least a [id number] smoker and multiple other medical issues. presented to the ER with complaints of worsening dyspnea, nonproductive cough. Patient has not been vaccinated against coronavirus .reports chronic neck and back pain which he reports is at baseline and denies recent injury .Denies chest pain, palpitations. Denies fever or chills. No hemoptysis. Minimal nonproductive cough. Denies lightheadedness, dizziness or focal deficits. Reports nausea subsided, no vomiting or diarrhea. Denies syncope. On admission patient was febrile with temperature 100.7, normal WBC. Patient has remained afebrile 24 hours. Chest x-ray reported patchy bilateral airspace disease, increased interstitium, likely underlying interstitial lung disease. EKG is sinus tachycardia .Coronavirus PCR screen positive. Patient received monoclonal antibody in the ER. Vital signs stable, maintaining O2 sats ranging from 90- 96%. Hematology, coagulation and chemistry profile is unremarkable with the exception of sodium 133.BUN 25/creatinine 0.96. Potassium 3.9, magnesium 2. Blo od sugars controlled. Review of Systems ROS Statement: Those systems with pertinent positive or pertinent negative responses have been documented in the HPI. ROS Other: All systems not noted in ROS Statement are negative. Past Medical History Past Medical History: Atrial Fibrillation, COPD, Pneumonia, Prostate Disorder Additional Past Medical History / Comment(s): Paroxysmal Afib, bronchitis, pulmonary nodules/negative pet scan, BPH, constipation, vertigo, chronic low back pain/DDD. History of Any Multi-Drug Resistant Organisms: None Reported Past Surgical History: Back Surgery Additional Past Surgical History / Comment(s): Bilateral cataract removals-lens implants, colonoscopy, multiple kyphoplasties. Past Anesthesia/Blood Transfusion Reactions: No Reported Reaction Additional Past Anesthesia/Blood Transfusion Reaction / Comment(s): Has never received any blood transfusions. Past Psychological History: No Psychological Hx Reported Smoking Status: Current every day smoker Past Alcohol Use History: None Reported Past Drug Use History: None Reported - Past Family History Mother Family Medical History: AFIB, Dementia Father Family Medical History: Myocardial Infarction ([place]) Additional Family Medical History / Comment(s): in his 70's [place] Medications and Allergies Home Medications Medication Instructions Recorded Confirmed Type Tamsulosin HCl [Flomax] 0.4 mg PO BID 03/24/18 06/20/20 History Apixaban [Eliquis] 5 mg PO BID 09/14/18 06/20/20 History Metoprolol Tartrate [Lopressor] 50 mg PO BID 02/04/19 06/20/20 History Ergocalciferol [Vitamin D2 50,000 unit PO TU 05/05/19 06/20/20 History (DRISDOL)] Finasteride [Proscar] 5 mg PO DAILY 05/05/19 06/20/20 History Alendronate Sodium [Fosamax] 70 mg PO GROVES 08/21/19 06/20/20 History Ipratropium-Albuterol Nebulize 3 ml INHALATION RT-QID 02/27/20 06/20/20 History [Duoneb 0.5 mg-3 mg/3 ml Soln] Albuterol Sulfate [Proair Hfa] 2 puff INHALATION RT-QID PRN 04/28/20 06/20/20 History Budesonide/Formoterol Fumarate 2 puff INHALATION RT-BID 05/21/20 06/20/20 History [Symbicort 160-4.5 Mcg Inhaler] traMADol HCL 50 mg PO Q6HR PRN 06/20/20 06/20/20 History Ascorbic Acid [Vitamin C] 250 mg PO DAILY tab 06/21/20 Rx Colchicine [Colcrys] 0.6 mg PO DAILY #30 each 06/21/20 Rx Dexamethasone [Decadron] 6 mg PO DAILY #8 tablet 06/21/20 Rx Famotidine [Pepcid] 20 mg PO BID #60 tablet 06/21/20 Rx Zinc Sulfate [Orazinc] 220 mg PO DAILY #0 cap 06/21/20 Rx Allergies Allergy/AdvReac Type Severity Reaction Status Date / Time Iodinated Contrast Media Allergy Rash/Hives Verified 06/20/20 07:57 [Iodinated Contrast- Oral and IV Dye] latex Allergy Rash/Hives Verified 06/20/20 07:57 Physical Exam Vitals: Vital Signs Temp Pulse Pulse Resp BP BP Pulse Ox 06/21/20 08:06 96 06/21/20 05:12 97.7 F 75 18 117/70 94 L 06/21/20 01:30 97.7 F 81 18 119/74 90 L 06/20/20 22:13 97.7 F 83 15 123/72 94 L 06/20/20 20:00 83 15 06/20/20 17:58 98.3 F 98 22 125/69 96 06/20/20 17:34 95 06/20/20 16:39 86 18 120/73 93 L 06/20/20 12:00 92 21 122/72 93 L 06/20/20 11:23 96 18 129/74 99 06/20/20 11:00 92 17 123/74 92 L 06/20/20 10:59 96.9 F L 06/20/20 10:53 97.7 F 88 18 123/74 93 L 06/20/20 10:22 97.6 F 100 18 135/73 93 L 06/20/20 10:00 93 22 117/65 94 L Intake and Output 06/20/20 06/21/20 06/21/20 22:59 06:59 14:59 Other: Voiding Method Toilet # Voids 1 GENERAL EXAM: Alert, active, comfortable in no apparent distress, sitting up at bedside HEAD: Normocephalic. Atraumatic. EYES: Normal reaction of pupils, equal size. NOSE: Clear with pink turbinates. THROAT: No erythema or exudates. NECK: No masses, no JVD. CHEST: No chest wall deformity. LUNGS: Diminished air entry,diminished breath sounds with minimal scattered rhonchi, no wheezes CVS: S1 and S2 normal with no audible murmur, regular rhythm. ABDOMEN: No hepatosplenomegaly, normal bowel sounds, no guarding or rigidity. SKIN: Warm and dry, No rashes CENTRAL NERVOUS SYSTEM: No focal deficits, tone is normal in all 4 extremities. EXTREMITIES: There is no peripheral edema. No clubbing, no cyanosis. Peripheral pulses are intact. Results CBC & Chem 7: 06/20/20 07:38 06/20/20 07:38 Labs: Abnormal Lab Results - Last 24 Hours (Table) 06/20/20 06/21/20 Range/Units 20:44 07:05 POC Glucose (mg/dL) 198 H 152 H (75-99) mg/dL Thrombosis Risk Factor Assmnt - Choose All That Apply Each Risk Factor Represents 3 Points: Age 75 years or older Thrombosis Risk Factor Assessment Total Risk Factor Score: 3 Thrombosis Risk Factor Assessment Level: Moderate Risk Assessment and Plan Assessment: Acute coronavirus pneumonitis, received monoclonal antibody Possible mild acute COPD exacerbation, secondary to the above Nicotine dependence Chronic atrial fibrillation, paroxysmal, anticoagulated on Eliquis BPH Chronic low back pain Hypertension Plan: Continue current medication regime ,monitoring and symptomatic treatment. Significant clinical improvement. Patient eager for discharge.Vital signs stable. Patient will be discharged home today in a stable condition with guarded prognosis. Instructed to complete tele visit on with PCP and complete 14 day total quarantine. Smoking cessation reinforced. Discharge Medication List Tamsulosin HCl [Flomax] 0.4 mg PO BID 03/24/18 [History] Apixaban [Eliquis] 5 mg PO BID 09/14/18 [History] Metoprolol Tartrate [Lopressor] 50 mg PO BID 02/04/19 [History] Ergocalciferol [Vitamin D2 (DRISDOL)] 50,000 unit PO TU 05/05/19 [History] Finasteride [Proscar] 5 mg PO DAILY 05/05/19 [History] Alendronate Sodium [Fosamax] 70 mg PO GROVES 08/21/19 [History] Ipratropium-Albuterol Nebulize [Duoneb 0.5 mg-3 mg/3 ml Soln] 3 ml INHALATION RT-QID 02/27/20 [History] Albuterol Sulfate [Proair Hfa] 2 puff INHALATION RT-QID PRN 04/28/20 [History] Budesonide/Formoterol Fumarate [Symbicort 160-4.5 Mcg Inhaler] 2 puff INHALATION RT-BID 05/21/20 [History] traMADol HCL 50 mg PO Q6HR PRN 06/20/20 [History] Ascorbic Acid [Vitamin C] 250 mg PO DAILY tab 06/21/20 [Rx] Colchicine [Colcrys] 0.6 mg PO DAILY #30 each 06/21/20 [Rx] Dexamethasone [Decadron] 6 mg PO DAILY #8 tablet 06/21/20 [Rx] Famotidine [Pepcid] 20 mg PO BID #60 tablet 06/21/20 [Rx] Zinc Sulfate [Orazinc] 220 mg PO DAILY #0 cap 06/21/20 [Rx] The impression and plan of care has been dictated as directed. : I performed a history and examination of this patient, discussed the same with the dictator. I agree with the dictator's note ,documented as a scribe. Any additional findings or plans will be noted.
[2020-06-22] MEDS ORDERED: PANTOPRAZOLE 40 MG TABLET PO SCH (09:00)
[2020-06-26] MEDS ORDERED: NON FORMULARY DRUG (Alendronate Sodium [Fosamax] 70 MG Tablet) PO SCH (19:01)
== END 2020-06-21 14:42 | disposition home or self-care (01) | DRG 177 ==
LOC: EC 06:55 → 4SSUR 10:10
PROVIDERS: ADMIT Family Medicine; ATTEND Family Medicine
DX: U07.1 COVID-19 (principal); J12.82 Pneumonia due to coronavirus disease 2019; J44.0 Chronic obstructive pulmonary disease with (acute) lower respiratory infection; J44.1 Chronic obstructive pulmonary disease with (acute) exacerbation; I48.20 Chronic atrial fibrillation, unspecified; N40.0 Benign prostatic hyperplasia without lower urinary tract symptoms; Z71.6 Tobacco abuse counseling; F17.210 Nicotine dependence, cigarettes, uncomplicated; G89.29 Other chronic pain; I10 Essential (primary) hypertension; I48.0 Paroxysmal atrial fibrillation; M54.5 Low back pain; R91.8 Other nonspecific abnormal finding of lung field; K59.00 Constipation, unspecified; R42 Dizziness and giddiness; Z91.041 Radiographic dye allergy status; Z91.040 Latex allergy status; Z79.01 Long term (current) use of anticoagulants; Z79.51 Long term (current) use of inhaled steroids; Z79.83 Long term (current) use of bisphosphonates; Z79.899 Other long term (current) drug therapy; Z82.49 Family history of ischemic heart disease and other diseases of the circulatory system; Z82.0 Family history of epilepsy and other diseases of the nervous system; Z98.42 Cataract extraction status, left eye; Z98.41 Cataract extraction status, right eye; Z96.1 Presence of intraocular lens; Z98.890 Other specified postprocedural states
CPT/HCPCS: 36415; 71045; 80053; 83735; 84484; 85025; 85610; 85730; 87635; 93005; 94640; 96365; 96366; 99285

== ENCOUNTER 2020-06-23 11:17 | Emergency (ER) | payer MEDICARE ==
[2020-06-23 12:22] LABS: Basophils % (A) 0 %; Eosinophils % (A) 0 %; HCT 36.7 % (39.0-53.0); HGB 13.2 gm/dL (13.0-17.5); Lymphocytes # (A) 0.4 k/uL (1.0-4.8); Lymphocytes % (A) 5 %; MCH 33.3 pg (25.0-35.0); MCHC 35.9 g/dL (31.0-37.0); MCV 92.7 fL (80.0-100.0); Mean Platelet Volume 7.8; Monocytes # (A) 0.4 k/uL (0-1.0); Monocytes % (A) 5 %; Neutrophils # (A) 7.1 k/uL (1.3-7.7); Neutrophils % (A) 87 %; Platelet Count 186 k/uL (150-450); RBC 3.96 m/uL (4.30-5.90); RDW 13.1 % (11.5-15.5); WBC 8.1 k/uL (3.8-10.6)
--- NOTE | 2020-06-23 12:23 | ED ---
SOB HPI - General Chief Complaint: Shortness of Breath Stated Complaint: sob/dizzy Time Seen by Provider: 06/23/20 11:20 Source: patient Mode of arrival: wheelchair Limitations: no limitations - History of Present Illness Initial Comments: Patient is a 75-year-old male past medical history of A. fib, COPD not oxygen dependent, who presents to ER for increased shortness of breath. Patient was recently hospitalized and tested positive for Covid. He was discharged home on steroids. States that at home he has become more short of breath. Denies any fevers or chills. Admits to poor oral intake. Patient admits to a new, wet cough. Denies any chest pain. Admits to nausea without vomiting. No abdominal pain. States he has been using his breathing treatments at home without improvement in his symptoms. No other alleviating, precipitating or modifying factors - Related Data Home Medications Medication Instructions Recorded Confirmed Tamsulosin HCl [Flomax] 0.4 mg PO BID 03/24/18 06/25/20 Apixaban [Eliquis] 5 mg PO BID 09/14/18 06/25/20 Metoprolol Tartrate [Lopressor] 50 mg PO BID 02/04/19 06/25/20 Ergocalciferol [Vitamin D2 1,250 mcg PO TU 05/05/19 06/25/20 (DRISDOL)] Finasteride [Proscar] 5 mg PO DAILY 05/05/19 06/25/20 Alendronate Sodium [Fosamax] 70 mg PO GROVES 08/21/19 06/25/20 Ipratropium-Albuterol Nebulize 3 ml INHALATION RT-QID 02/27/20 06/25/20 [Duoneb 0.5 mg-3 mg/3 ml Soln] Albuterol Sulfate [Proair Hfa] 2 puff INHALATION RT-QID PRN 04/28/20 06/25/20 Budesonide/Formoterol Fumarate 2 puff INHALATION RT-BID 05/21/20 06/25/20 [Symbicort 160-4.5 Mcg Inhaler] Previous Rx's Medication Instructions Recorded Ascorbic Acid [Vitamin C] 250 mg PO DAILY tab 06/21/20 Colchicine [Colcrys] 0.6 mg PO DAILY #30 each 06/21/20 Famotidine [Pepcid] 20 mg PO BID #60 tablet 06/21/20 Zinc Sulfate [Orazinc] 220 mg PO DAILY #0 cap 06/21/20 Nicotine 14Mg/24Hr Patch [Habitrol] 1 patch TRANSDERM DAILY #30 patch 06/27/20 predniSONE 10 mg PO DIRECTED #30 tab 06/27/20 methocarbamoL [Robaxin] 1,000 mg PO TID PRN #30 tab 07/01/20 Allergies Allergy/AdvReac Type Severity Reaction Status Date / Time Iodinated Contrast Media Allergy Rash/Hives Verified 07/01/20 17:22 [Iodinated Contrast- Oral and IV Dye] latex Allergy Rash/Hives Verified 07/01/20 17:22 Review of Systems ROS Statement: Those systems with pertinent positive or pertinent negative responses have been documented in the HPI. ROS Other: All systems not noted in ROS Statement are negative. Past Medical History Past Medical History: Atrial Fibrillation, COPD, Pneumonia, Prostate Disorder Additional Past Medical History / Comment(s): Paroxysmal Afib, bronchitis, pulmonary nodules/negative pet scan, BPH, constipation, vertigo, chronic low back pain/DDD. History of Any Multi-Drug Resistant Organisms: None Reported Past Surgical History: Back Surgery Additional Past Surgical History / Comment(s): Bilateral cataract removals-lens implants, colonoscopy, multiple kyphoplasties. Past Anesthesia/Blood Transfusion Reactions: No Reported Reaction Additional Past Anesthesia/Blood Transfusion Reaction / Comment(s): Has never received any blood transfusions. Past Psychological History: No Psychological Hx Reported Smoking Status: Current every day smoker Past Alcohol Use History: None Reported Past Drug Use History: None Reported - Past Family History Mother Family Medical History: AFIB, Dementia Father Family Medical History: Myocardial Infarction ([place]) Additional Family Medical History / Comment(s): in his 70's [place] General Exam Limitations: no limitations General appearance: alert, in no apparent distress Head exam: Present: atraumatic, normocephalic, normal inspection Eye exam: Present: normal appearance, PERRL, EOMI. Absent: scleral icterus, conjunctival injection, periorbital swelling ENT exam: Present: normal exam, mucous membranes moist Neck exam: Present: normal inspection. Absent: tenderness, meningismus, lymphadenopathy Respiratory exam: Present: wheezes (diffuse), accessory muscle use, other (conversational dyspnea, pursed lip breathing). Absent: respiratory distress, rales, rhonchi, stridor Cardiovascular Exam: Present: regular rate, normal rhythm, normal heart sounds. Absent: systolic murmur, diastolic murmur, rubs, gallop, clicks GI/Abdominal exam: Present: soft, normal bowel sounds. Absent: distended, tenderness, guarding, rebound, rigid Extremities exam: Present: normal inspection, full ROM, normal capillary refill. Absent: tenderness, pedal edema, joint swelling, calf tenderness Back exam: Present: normal inspection Neurological exam: Present: alert, oriented X3, CN II-XII intact Psychiatric exam: Present: normal affect, normal mood Skin exam: Present: warm, dry, intact, normal color. Absent: rash Course Vital Signs 06/23/20 06/23/20 06/23/20 11:19 11:49 12:00 Temperature 97.9 F Pulse Rate 80 80 Respiratory 24 22 22 Rate Blood Pressure 144/80 126/83 O2 Sat by Pulse 93 L 96 Oximetry 06/23/20 06/23/20 06/23/20 13:00 15:00 15:45 Temperature 98.1 F Pulse Rate 58 L 87 78 Respiratory 18 22 22 Rate Blood Pressure 149/74 132/65 138/65 O2 Sat by Pulse 97 95 94 L Oximetry Medical Decision Making - Medical Decision Making Upon arrival patient is placed in room 4. He does have increased work of breathing. Albuterol inhaler ordered. Laboratory studies are conducted. Demonstrated d-dimer 0.66. Chest x-ray demonstrates bilateral multifocal reticular opacities with continued interval progression. Discuss his results with the patient. I did order IV Decadron, albuterol inhaler. Patient has already received BAM treatment. Due to worsening symptoms I did recommend admission for which the patient agreed to. Spoke with Dr. Lambert who agreed to admit the patient. Patient is currently awaiting a bed on the floor. Dr. Lambert's PA, Zechariah, does come to the ER to assess the patient. She feels patient is comfortable for discharge home. Requests I place discharge instructions and have the patient follow up tomorrow in office. Requesting that I verify patient is using his duoneb treatments over his inhaler. I spoke with the patient in regards to his refused admission to the floor. Patient feels comfortable with discharge home. Instructed him to return for any new or worsening symptoms. - Lab Data Result diagrams: 06/23/20 11:58 06/23/20 11:58 Lab Results 06/23/20 06/23/20 06/23/20 Range/Units 11:58 11:58 11:58 WBC 8.1 (3.8-10.6) k/uL RBC 3.96 L (4.30-5.90) m/uL Hgb 13.2 (13.0-17.5) gm/dL Hct 36.7 L (39.0-53.0) % MCV 92.7 (80.0-100.0) fL MCH 33.3 (25.0-35.0) pg MCHC 35.9 (31.0-37.0) g/dL RDW 13.1 (11.5-15.5) % Plt Count 186 (150-450) k/uL MPV 7.8 Neutrophils % 87 % Lymphocytes % 5 % Monocytes % 5 % Eosinophils % 0 % Basophils % 0 % Neutrophils # 7.1 (1.3-7.7) k/uL Lymphocytes # 0.4 L (1.0-4.8) k/uL Monocytes # 0.4 (0-1.0) k/uL Eosinophils # 0.0 (0-0.7) k/uL Basophils # 0.0 (0-0.2) k/uL PT 10.2 (9.0-12.0) sec INR 0.9 (<1.2) APTT 23.7 (22.0-30.0) sec D-Dimer 0.66 H (<0.60) mg/L FEU Sodium 133 L (137-145) mmol/L Potassium 4.3 (3.5-5.1) mmol/L Chloride 101 (98-107) mmol/L Carbon Dioxide 27 (22-30) mmol/L Anion Gap 5 mmol/L BUN 17 (9-20) mg/dL Creatinine 0.73 (0.66-1.25) mg/dL Est GFR (CKD-EPI)AfAm >90 (>60 ml/min/1.73 sqM) Est GFR (CKD-EPI)NonAf >90 (>60 ml/min/1.73 sqM) Glucose 116 H (74-99) mg/dL Plasma Lactic Acid Santi (0.7-2.0) mmol/L Calcium 8.9 (8.4-10.2) mg/dL Magnesium 1.9 (1.6-2.3) mg/dL Total Bilirubin 0.5 (0.2-1.3) mg/dL AST 39 (17-59) U/L ALT 53 H (4-49) U/L Alkaline Phosphatase 89 (38-126) U/L Lactate Dehydrogenase 768 H (313-618) U/L C-Reactive Protein 1.5 H (<1.0) mg/dL Total Protein 6.0 L (6.3-8.2) g/dL Albumin 3.4 L (3.5-5.0) g/dL Procalcitonin (0.02-0.09) ng/mL 06/23/20 06/23/20 Range/Units 11:58 11:58 WBC (3.8-10.6) k/uL RBC (4.30-5.90) m/uL Hgb (13.0-17.5) gm/dL Hct (39.0-53.0) % MCV (80.0-100.0) fL MCH (25.0-35.0) pg MCHC (31.0-37.0) g/dL RDW (11.5-15.5) % Plt Count (150-450) k/uL MPV Neutrophils % % Lymphocytes % % Monocytes % % Eosinophils % % Basophils % % Neutrophils # (1.3-7.7) k/uL Lymphocytes # (1.0-4.8) k/uL Monocytes # (0-1.0) k/uL Eosinophils # (0-0.7) k/uL Basophils # (0-0.2) k/uL PT (9.0-12.0) sec INR (<1.2) APTT (22.0-30.0) sec D-Dimer (<0.60) mg/L FEU Sodium (137-145) mmol/L Potassium (3.5-5.1) mmol/L Chloride (98-107) mmol/L Carbon Dioxide (22-30) mmol/L Anion Gap mmol/L BUN (9-20) mg/dL Creatinine (0.66-1.25) mg/dL Est GFR (CKD-EPI)AfAm (>60 ml/min/1.73 sqM) Est GFR (CKD-EPI)NonAf (>60 ml/min/1.73 sqM) Glucose (74-99) mg/dL Plasma Lactic Acid Santi 1.2 (0.7-2.0) mmol/L Calcium (8.4-10.2) mg/dL Magnesium (1.6-2.3) mg/dL Total Bilirubin (0.2-1.3) mg/dL AST (17-59) U/L ALT (4-49) U/L Alkaline Phosphatase (38-126) U/L Lactate Dehydrogenase (313-618) U/L C-Reactive Protein (<1.0) mg/dL Total Protein (6.3-8.2) g/dL Albumin (3.5-5.0) g/dL Procalcitonin 0.05 (0.02-0.09) ng/mL - EKG Data EKG Comments: EKG demonstrates normal sinus rhythm with a ventricular rate of 71. TN interval 166. QRS 82. QTC 434. No acute ST segment elevations or depressions Disposition Clinical Impression: Pneumonia due to COVID-19 virus, COPD (chronic obstructive pulmonary disease) Disposition: HOME SELF-CARE Condition: Stable Is patient prescribed a controlled substance at d/c from ED?: No Referrals: Fernando Lambert Jr, DO [Primary Care Provider] - 1-2 days Time of Disposition: 15:28
--- NOTE | 2020-06-23 12:35 | XR ---
EXAMINATION TYPE: XR chest 1V portable DATE OF EXAM: 06/23/2020 COMPARISON: Chest x-ray 3 days ago on older studies HISTORY: Shortness of breath. TECHNIQUE: Single AP portable frontal upright view of the chest is obtained. FINDINGS: The osseous structures remain somewhat demineralized. Stable mild cardiomegaly. Low lung v olumes and chronic parenchymal changes with worsening increased left mid to lower lung reticular opac ities greatest in the periphery and multifocal right lung reticular opacities stable or slightly wors ened. IMPRESSION: Bilateral multifocal reticular opacities redemonstrated with continued interval progress ion particularly in the left lung consistent with covid-19 infection progression on background mild c ardiomegaly and chronic parenchymal changes.
[2020-06-23 12:37] LABS: ALT 53 U/L (4-49); AST 39 U/L (17-59); African American GFR (CKD) >90 (>60 ml/min/1.73 sqM); Albumin 3.4 g/dL (3.5-5.0); Alkaline Phosphatase 89 U/L (38-126); Anion Gap 5 mmol/L; Blood Urea Nitrogen 17 mg/dL (9-20); C Reactive Protein 1.5 mg/dL (<1.0); Calcium 8.9 mg/dL (8.4-10.2); Carbon Dioxide 27 mmol/L (22-30); Chloride 101 mmol/L (98-107); Glucose 116 mg/dL (74-99); LDH 768 U/L (313-618); Magnesium 1.9 mg/dL (1.6-2.3); Non-African American GFR(CKD) >90 (>60 ml/min/1.73 sqM); Potassium 4.3 mmol/L (3.5-5.1); Sodium 133 mmol/L (137-145); Total Bilirubin 0.5 mg/dL (0.2-1.3)
[2020-06-23 12:39] LABS: INR 0.9 (<1.2); Partial Thromboplastin Time 23.7 sec (22.0-30.0); Prothrombin Time 10.2 sec (9.0-12.0)
[2020-06-23] MEDS ORDERED: ALBUTEROL HFA INHALER INHALATION PRN ×2 (13:12→14:39)
[2020-06-23] MEDS ORDERED: NALOXONE 0.4 MG/ML 1 ML VIAL IV PRN (14:37)
[2020-06-23] MEDS ORDERED: ACETAMINOPHEN TAB 325 MG TAB PO PRN (14:37)
[2020-06-23] MEDS ORDERED: traMADol 50 MG TAB PO PRN (14:39)
[2020-06-23 15:21] VITALS: RESP 22
[2020-06-23 15:50] VITALS: BP 138/65; PULSE 78; TEMP 98.1
[2020-06-23] MEDS ORDERED: SYMBICORT 160-4.5 MCG INHALER INHALATION SCH (20:00)
[2020-06-23] MEDS ORDERED: METOPROLOL TARTRATE 50 MG TAB PO SCH (21:00)
[2020-06-23] MEDS ORDERED: APIXABAN 5 MG TAB PO SCH (21:00)
[2020-06-23] MEDS ORDERED: FAMOTIDINE 20 MG TAB PO SCH (21:00)
[2020-06-23] MEDS ORDERED: TAMSULOSIN 0.4 MG CAP.ER.24H PO SCH (21:00)
[2020-06-24] MEDS ORDERED: ZINC SULFATE 220 MG CAP PO SCH (09:00)
[2020-06-24] MEDS ORDERED: ASCORBIC ACID 500 MG TAB PO SCH (09:00)
[2020-06-24] MEDS ORDERED: COLCHICINE 0.6 MG EACH PO SCH (09:00)
[2020-06-24] MEDS ORDERED: FINASTERIDE 5 MG TAB PO SCH (09:00)
[2020-06-28] MEDS ORDERED: ERGOCALCIFEROL 1,250 MCG (50,000 IU) CAPSULE PO SCH (09:00)
== END 2020-06-23 16:00 | disposition home or self-care (01) ==
LOC: EC 11:17 → UNDOADMIN 14:50 → 4SSUR 14:50 → EC 16:00
DX: U07.1 COVID-19 (principal); J12.82 Pneumonia due to coronavirus disease 2019; J44.0 Chronic obstructive pulmonary disease with (acute) lower respiratory infection; I48.0 Paroxysmal atrial fibrillation; F17.200 Nicotine dependence, unspecified, uncomplicated; Z79.01 Long term (current) use of anticoagulants; Z79.51 Long term (current) use of inhaled steroids; Z79.899 Other long term (current) drug therapy; Z91.041 Radiographic dye allergy status; Z91.040 Latex allergy status
CPT/HCPCS: 36415; 71045; 80053; 83605; 83615; 83735; 84145; 85025; 85379; 85610; 85730; 86140; 93005; 99285

== ENCOUNTER 2020-06-25 18:33 | Inpatient (IN) | payer MEDICARE ==
[2020-06-25] MEDS ORDERED: methylPREDNISolone SOD SUCCI 125 MG/2 ML VIAL IV STA (18:49)
[2020-06-25] MEDS ORDERED: IPRATROPIUM-ALBUTEROL 3 ML NEB INHALATION STA (18:49)
[2020-06-25 19:32] LABS: ALT 39 U/L (4-49); AST 29 U/L (17-59); African American GFR (CKD) >90 (>60 ml/min/1.73 sqM); Albumin 3.7 g/dL (3.5-5.0); Alkaline Phosphatase 94 U/L (38-126); Anion Gap 6 mmol/L; Blood Urea Nitrogen 23 mg/dL (9-20); Calcium 9.8 mg/dL (8.4-10.2); Carbon Dioxide 27 mmol/L (22-30); Chloride 99 mmol/L (98-107); Creatine Kinase 50 U/L (55-170); Glucose 79 mg/dL (74-99); Magnesium 1.9 mg/dL (1.6-2.3); Non-African American GFR(CKD) 84 (>60 ml/min/1.73 sqM); Potassium 4.8 mmol/L (3.5-5.1); Sodium 132 mmol/L (137-145); Total Bilirubin 0.7 mg/dL (0.2-1.3); Total Protein 6.3 g/dL (6.3-8.2)
--- NOTE | 2020-06-25 19:35 | XR ---
EXAMINATION TYPE: XR chest 2V DATE OF EXAM: 06/25/2020 COMPARISON: 06/23/2020 HISTORY: Short of breath TECHNIQUE: 2 views FINDINGS: There is coarse interstitial infiltrate throughout both lungs. There is multilevel thoracic vertebroplasty noted. Heart size is fairly normal. I see no gross heart failure. There is no pleural effusion. IMPRESSION: There is pulmonary interstitial infiltrates not significantly different than recent exam. No pleural fluid seen to suggest heart failure.
[2020-06-25 19:42] LABS: Basophils # (A) 0.1 k/uL (0-0.2); Basophils % (A) 0 %; Eosinophils % (A) 0 %; HGB 13.4 gm/dL (13.0-17.5); Lymphocytes # (A) 1.1 k/uL (1.0-4.8); Lymphocytes % (A) 9 %; MCH 31.2 pg (25.0-35.0); MCHC 33.6 g/dL (31.0-37.0); MCV 92.8 fL (80.0-100.0); Mean Platelet Volume 8.5; Monocytes # (A) 1.4 k/uL (0-1.0); Monocytes % (A) 11 %; Neutrophils % (A) 77 %; Platelet Count 312 k/uL (150-450); RBC 4.31 m/uL (4.30-5.90)
[2020-06-25 19:51] LABS: D-Dimer 0.53 mg/L FEU (<0.60); Partial Thromboplastin Time 22.9 sec (22.0-30.0); Prothrombin Time 10.4 sec (9.0-12.0)
--- NOTE | 2020-06-25 20:01 | ED ---
SOB HPI - General Chief Complaint: Shortness of Breath Stated Complaint: SOB Time Seen by Provider: 06/25/20 18:43 Source: patient, RN notes reviewed Mode of arrival: wheelchair Limitations: no limitations - History of Present Illness Initial Comments: This is a 75-year-old male history of COPD who states she's had shortness of breath for the past couple days. The chest pain no fevers chills nausea vomiting sweats he does have exertional dyspnea. He is wheezing quite extensively states his home medications were not helping for very long at all. No other complaints or modifying factors at this time he was recently diagnosed with Covid 19 Complaint: shortness of breath - Related Data Home Medications Medication Instructions Recorded Confirmed Tamsulosin HCl [Flomax] 0.4 mg PO BID 03/24/18 06/23/20 Apixaban [Eliquis] 5 mg PO BID 09/14/18 06/23/20 Metoprolol Tartrate [Lopressor] 50 mg PO BID 02/04/19 06/23/20 Ergocalciferol [Vitamin D2 1,250 mcg PO TU 05/05/19 06/23/20 (DRISDOL)] Finasteride [Proscar] 5 mg PO DAILY 05/05/19 06/23/20 Alendronate Sodium [Fosamax] 70 mg PO GROVES 08/21/19 06/23/20 Ipratropium-Albuterol Nebulize 3 ml INHALATION RT-QID 02/27/20 06/23/20 [Duoneb 0.5 mg-3 mg/3 ml Soln] Albuterol Sulfate [Proair Hfa] 2 puff INHALATION RT-QID PRN 04/28/20 06/23/20 Budesonide/Formoterol Fumarate 2 puff INHALATION RT-BID 05/21/20 06/23/20 [Symbicort 160-4.5 Mcg Inhaler] traMADol HCL 50 mg PO Q6HR PRN 06/20/20 06/23/20 Previous Rx's Medication Instructions Recorded Ascorbic Acid [Vitamin C] 250 mg PO DAILY tab 06/21/20 Colchicine [Colcrys] 0.6 mg PO DAILY #30 each 06/21/20 Dexamethasone [Decadron] 6 mg PO DAILY #8 tablet 06/21/20 Famotidine [Pepcid] 20 mg PO BID #60 tablet 06/21/20 Zinc Sulfate [Orazinc] 220 mg PO DAILY #0 cap 06/21/20 Allergies Allergy/AdvReac Type Severity Reaction Status Date / Time Iodinated Contrast Media Allergy Rash/Hives Verified 06/25/20 18:36 [Iodinated Contrast- Oral and IV Dye] latex Allergy Rash/Hives Verified 06/25/20 18:36 Review of Systems ROS Statement: Those systems with pertinent positive or pertinent negative responses have been documented in the HPI. ROS Other: All systems not noted in ROS Statement are negative. Past Medical History Past Medical History: Atrial Fibrillation, COPD, Pneumonia, Prostate Disorder Additional Past Medical History / Comment(s): Paroxysmal Afib, bronchitis, pulmonary nodules/negative pet scan, BPH, constipation, vertigo, chronic low back pain/DDD. covid 06/22 History of Any Multi-Drug Resistant Organisms: None Reported Past Surgical History: Back Surgery Additional Past Surgical History / Comment(s): Bilateral cataract removals-lens implants, colonoscopy, multiple kyphoplasties. Past Anesthesia/Blood Transfusion Reactions: No Reported Reaction Additional Past Anesthesia/Blood Transfusion Reaction / Comment(s): Has never received any blood transfusions. Past Psychological History: No Psychological Hx Reported Smoking Status: Current every day smoker Past Alcohol Use History: None Reported Past Drug Use History: None Reported - Past Family History Mother Family Medical History: AFIB, Dementia Father Family Medical History: Myocardial Infarction (DC) Additional Family Medical History / Comment(s): in his 70's [place] General Exam - General Exam Comments Initial Comments: Is a well-developed well-nourished awake alert oriented times 3 male Limitations: no limitations General appearance: alert, anxious, in distress Head exam: Present: atraumatic, normocephalic, normal inspection Eye exam: Present: normal appearance, PERRL, EOMI. Absent: scleral icterus, conjunctival injection, periorbital swelling ENT exam: Present: mucous membranes dry Neck exam: Present: normal inspection. Absent: tenderness, meningismus, lymphadenopathy Respiratory exam: Present: wheezes, accessory muscle use. Absent: respiratory distress, rales, rhonchi, stridor Cardiovascular Exam: Present: regular rate, normal rhythm, normal heart sounds. Absent: systolic murmur, diastolic murmur, rubs, gallop, clicks GI/Abdominal exam: Present: soft, normal bowel sounds. Absent: distended, tenderness, guarding, rebound, rigid Extremities exam: Present: normal inspection, full ROM, normal capillary refill. Absent: tenderness, pedal edema, joint swelling, calf tenderness Back exam: Present: normal inspection Neurological exam: Present: alert, oriented X3, CN II-XII intact Psychiatric exam: Present: normal affect, normal mood Skin exam: Present: warm, dry, intact, normal color. Absent: rash Course Vital Signs 06/25/20 06/25/20 06/25/20 18:34 18:59 19:04 Temperature 98.2 F Pulse Rate 95 87 Respiratory 28 H 18 Rate Blood Pressure 120/79 O2 Sat by Pulse 93 L Oximetry 06/25/20 06/25/20 19:13 19:30 Temperature 97.2 F L Pulse Rate 88 89 Respiratory 28 H Rate Blood Pressure 143/74 O2 Sat by Pulse 96 Oximetry - Reevaluation(s) Reevaluation #1: 06/25/20 20:08 Reevaluation patient reveals he still maintains diffuse wheezing and effort with respirations. He does require at this time oxygen to stay within a good oxygen saturation range. Medical Decision Making - Medical Decision Making I did discuss findings with the patient he still demonstrated respiratory distr ess did discuss case with Dr. Lambert the patient will be admitted with consultation by pulmonary medicine - Lab Data Result diagrams: 06/25/20 18:44 06/25/20 18:44 Lab Results 06/25/20 06/25/20 06/25/20 Range/Units 18:44 18:44 18:44 WBC 13.0 H (3.8-10.6) k/uL RBC 4.31 (4.30-5.90) m/uL Hgb 13.4 (13.0-17.5) gm/dL Hct 40.0 (39.0-53.0) % MCV 92.8 (80.0-100.0) fL MCH 31.2 (25.0-35.0) pg MCHC 33.6 (31.0-37.0) g/dL RDW 14.0 (11.5-15.5) % Plt Count 312 (150-450) k/uL MPV 8.5 Neutrophils % 77 % Lymphocytes % 9 % Monocytes % 11 % Eosinophils % 0 % Basophils % 0 % Neutrophils # 10.0 H (1.3-7.7) k/uL Lymphocytes # 1.1 (1.0-4.8) k/uL Monocytes # 1.4 H (0-1.0) k/uL Eosinophils # 0.0 (0-0.7) k/uL Basophils # 0.1 (0-0.2) k/uL PT 10.4 (9.0-12.0) sec INR 1.0 (<1.2) APTT 22.9 (22.0-30.0) sec D-Dimer 0.53 (<0.60) mg/L FEU Sodium 132 L (137-145) mmol/L Potassium 4.8 (3.5-5.1) mmol/L Chloride 99 (98-107) mmol/L Carbon Dioxide 27 (22-30) mmol/L Anion Gap 6 mmol/L BUN 23 H (9-20) mg/dL Creatinine 0.89 (0.66-1.25) mg/dL Est GFR (CKD-EPI)AfAm >90 (>60 ml/min/1.73 sqM) Est GFR (CKD-EPI)NonAf 84 (>60 ml/min/1.73 sqM) Glucose 79 (74-99) mg/dL Plasma Lactic Acid Santi (0.7-2.0) mmol/L Calcium 9.8 (8.4-10.2) mg/dL Magnesium 1.9 (1.6-2.3) mg/dL Total Bilirubin 0.7 (0.2-1.3) mg/dL AST 29 (17-59) U/L ALT 39 (4-49) U/L Alkaline Phosphatase 94 (38-126) U/L Creatine Kinase 50 L (55-170) U/L Troponin I (0.000-0.034) ng/mL Total Protein 6.3 (6.3-8.2) g/dL Albumin 3.7 (3.5-5.0) g/dL 06/25/20 06/25/20 Range/Units 18:44 18:44 WBC (3.8-10.6) k/uL RBC (4.30-5.90) m/uL Hgb (13.0-17.5) gm/dL Hct (39.0-53.0) % MCV (80.0-100.0) fL MCH (25.0-35.0) pg MCHC (31.0-37.0) g/dL RDW (11.5-15.5) % Plt Count (150-450) k/uL MPV Neutrophils % % Lymphocytes % % Monocytes % % Eosinophils % % Basophils % % Neutrophils # (1.3-7.7) k/uL Lymphocytes # (1.0-4.8) k/uL Monocytes # (0-1.0) k/uL Eosinophils # (0-0.7) k/uL Basophils # (0-0.2) k/uL PT (9.0-12.0) sec INR (<1.2) APTT (22.0-30.0) sec D-Dimer (<0.60) mg/L FEU Sodium (137-145) mmol/L Potassium (3.5-5.1) mmol/L Chloride (98-107) mmol/L Carbon Dioxide (22-30) mmol/L Anion Gap mmol/L BUN (9-20) mg/dL Creatinine (0.66-1.25) mg/dL Est GFR (CKD-EPI)AfAm (>60 ml/min/1.73 sqM) Est GFR (CKD-EPI)NonAf (>60 ml/min/1.73 sqM) Glucose (74-99) mg/dL Plasma Lactic Acid Santi 1.8 (0.7-2.0) mmol/L Calcium (8.4-10.2) mg/dL Magnesium (1.6-2.3) mg/dL Total Bilirubin (0.2-1.3) mg/dL AST (17-59) U/L ALT (4-49) U/L Alkaline Phosphatase (38-126) U/L Creatine Kinase (55-170) U/L Troponin I <0.012 (0.000-0.034) ng/mL Total Protein (6.3-8.2) g/dL Albumin (3.5-5.0) g/dL - EKG Data -: EKG Interpreted by Or EKG shows normal: sinus rhythm EKG Comments: Sinus rhythm of 86. Interval 162 QRS 86 QT since QTC 352/[address]-T wave changes - Radiology Data Radiology results: report reviewed (Imaging reviewed and increased interstitial markings that appear unchanged from previous x-rays.), image reviewed Disposition Clinical Impression: COPD with acute exacerbation Disposition: ADMITTED IP TO THIS HOSP Condition: Fair Referrals: Fernando Lambert Jr, [Primary Care Provider] - 1-2 days
[2020-06-25] MEDS ORDERED: IPRATROPIUM-ALBUTEROL 3 ML NEB INHALATION PRN (21:15)
[2020-06-25] MEDS: TAMSULOSIN 0.4 MG CAP.ER.24H PO SCH (22:10)
[2020-06-25] MEDS: METOPROLOL TARTRATE 50 MG TAB PO SCH (22:10)
[2020-06-25] MEDS: APIXABAN 5 MG TAB PO SCH (22:10)
[2020-06-25] MEDS: FAMOTIDINE 20 MG TAB PO SCH (22:10)
[2020-06-26] MEDS: traMADol 50 MG TAB PO PRN (05:10)
[2020-06-26] MEDS ORDERED: IPRATROPIUM-ALBUTEROL 3 ML NEB INHALATION SCH ×2 (08:00)
[2020-06-26] MEDS: FINASTERIDE 5 MG TAB PO SCH (08:16)
[2020-06-26] MEDS: APIXABAN 5 MG TAB PO SCH ×2 (08:16→21:36)
[2020-06-26] MEDS: FAMOTIDINE 20 MG TAB PO SCH ×2 (08:16→21:36)
[2020-06-26] MEDS: METOPROLOL TARTRATE 50 MG TAB PO SCH ×2 (08:16→21:36)
[2020-06-26] MEDS: ASCORBIC ACID 500 MG TAB PO SCH (08:16)
[2020-06-26] MEDS: ZINC SULFATE 220 MG CAP PO SCH (08:16)
[2020-06-26] MEDS: TAMSULOSIN 0.4 MG CAP.ER.24H PO SCH ×2 (08:16→21:36)
[2020-06-26] MEDS: COLCHICINE 0.6 MG EACH PO SCH (08:17)
[2020-06-26] MEDS ORDERED: NON FORMULARY DRUG (Alendronate Sodium [Fosamax] 70 MG Tablet) PO SCH (09:00)
[2020-06-26] MEDS ORDERED: dexAMETHasone 2 MG TAB PO SCH (09:00)
[2020-06-26] MEDS: SYMBICORT 160-4.5 MCG INHALER INHALATION SCH ×2 (09:06→20:43)
[2020-06-26] MEDS: TIOTROPIUM 2.5 MCG INHALER INHALATION SCH (09:11)
[2020-06-26] MEDS: ALBUTEROL HFA INHALER INHALATION SCH ×4 (09:12→20:42)
--- NOTE | 2020-06-26 11:16 | P.CNPUL ---
History of Present Illness Consult date: 06/26/20 Requesting physician: Fernando Lambert Jr Reason for consult: dyspnea, COPD Chief complaint: Shortness of breath, cough History of present illness: This is a very pleasant 75-year-old white male patient who follows in our office for his history of COPD, not on home oxygen, chronic smoker, with the past medical history of atrial fibrillation on Eliquis, chronic low back pain. Baseline FEV1 is 53% of predicted, and patient is maintained on Symbicort, Incruse Ellipta, and Albuterol. He has had multiple admissions for COPD exacerbations. He does continue to smoke. He was most recently discharged here on 06/21/2020 for COPD exacerbation, complicated by COVID-19 pneumonia. He tested positive on 06/20/2020. He presented here to the emergency room yesterday with complaints of increasing shortness of breath started again 2 days prior to his arrival. No fever, chills or night sweats. Positive for chest tightness and wheezing. His home medications did not seem to be helping. Chest x-ray continued to show coarse interstitial infiltrates throughout both lungs but no worse compared to previous. He's been afebrile. Hemodynamically stable. He is seen today in consultation on the regular medical floor. He is currently resting fairly comfortably in bed. He is dyspneic with minimal exertion. Dyspneic with conversation. Currently maintaining O2 saturation in the mid 90s on 4 L/m per nasal cannula. White count 13.0. Hemoglobin 13.4. D-dimer 0.53. Lymphocytes 1.1. Sodium 132. Potassium 4.8. Creatinine 0.89. ProBNP 173. AST 29. ALT 39. He's been initiated on Symbicort, Spiriva, albuterol, Decadron, vitamin supplements. Anticoagulated with Eliquis. Review of Systems REVIEW OF SYSTEMS: CONSTITUTIONAL: Denies any recent significant weight loss or weight gain. EYES: Denies change in vision. EARS, NOSE, MOUTH, THROAT: Denies headaches, denies sore throat. CARDIOVASCULAR: Denies chest pain, palpitations or syncopal episodes. RESPIRATORY: Positive for shortness of breath, cough, congestion no hemoptysis. GASTROINTESTINAL: Denies change in appetite, denies abdominal pain GENITOURINARY: Denies hematuria, denies infections. MUSKULOSKELETAL: Denies pain, denies swelling. INTEGUMENTARY: Denies rash, denies eczema. NEUROLOGICAL: Denies recent memory loss, no recent seizure activity. PSYCHIATRIC: Denies anxiety, denies depression. HEMATOLOGIC/LYMPHATIC: Denies anemia, denies enlarged lymph nodes. Past Medical History Past Medical History: Atrial Fibrillation, COPD, Pneumonia, Prostate Disorder Additional Past Medical History / Comment(s): Paroxysmal Afib, bronchitis, pulmonary nodules/negative pet scan, BPH, constipation, vertigo, chronic low back pain/DDD. covid 06/22 History of Any Multi-Drug Resistant Organisms: None Reported Past Surgical History: Back Surgery Additional Past Surgical History / Comment(s): Bilateral cataract removals-lens implants, colonoscopy, multiple kyphoplasties. Past Anesthesia/Blood Transfusion Reactions: No Reported Reaction Additional Past Anesthesia/Blood Transfusion Reaction / Comment(s): Has never r eceived any blood transfusions. Past Psychological History: No Psychological Hx Reported Additional Psychological History / Comment(s): Pt resides with his son, (Jt). They live in a downstairs apartment. Pt manages his own medications. He has a nebulizer. His son cooks and drives pt to [employer]. recently passed [email or web address]. Smoking Status: Current every day smoker Past Alcohol Use History: None Reported Additional Past Alcohol Use History / Comment(s): Pt started smoking age 12(1958) got up to 5 ppd for many years then cut down to 3 ppd, currently smoking a ppd or alittle more if his back is hurting. Past Drug Use History: None Reported - Past Family History Mother Family Medical History: AFIB, Dementia Father Family Medical History: Myocardial Infarction (MS) Additional Family Medical History / Comment(s): in his 70's [place] Medications and Allergies Home Medications Medication Instructions Recorded Confirmed Type Tamsulosin HCl [Flomax] 0.4 mg PO BID 03/24/18 06/25/20 History Apixaban [Eliquis] 5 mg PO BID 09/14/18 06/25/20 History Metoprolol Tartrate [Lopressor] 50 mg PO BID 02/04/19 06/25/20 History Ergocalciferol [Vitamin D2 1,250 mcg PO TU 05/05/19 06/25/20 History (DRISDOL)] Finasteride [Proscar] 5 mg PO DAILY 05/05/19 06/25/20 History Alendronate Sodium [Fosamax] 70 mg PO GROVES 08/21/19 06/25/20 History Ipratropium-Albuterol Nebulize 3 ml INHALATION RT-QID 02/27/20 06/25/20 History [Duoneb 0.5 mg-3 mg/3 ml Soln] Albuterol Sulfate [Proair Hfa] 2 puff INHALATION RT-QID PRN 04/28/20 06/25/20 History Budesonide/Formoterol Fumarate 2 puff INHALATION RT-BID 05/21/20 06/25/20 History [Symbicort 160-4.5 Mcg Inhaler] Ascorbic Acid [Vitamin C] 250 mg PO DAILY tab 06/21/20 06/25/20 Rx Colchicine [Colcrys] 0.6 mg PO DAILY #30 each 06/21/20 06/25/20 Rx Dexamethasone [Decadron] 6 mg PO DAILY #8 tablet 06/21/20 06/25/20 Rx Famotidine [Pepcid] 20 mg PO BID #60 tablet 06/21/20 06/25/20 Rx Zinc Sulfate [Orazinc] 220 mg PO DAILY #0 cap 06/21/20 06/25/20 Rx Allergies Allergy/AdvReac Type Severity Reaction Status Date / Time Iodinated Contrast Media Allergy Rash/Hives Verified 06/25/20 20:43 [Iodinated Contrast- Oral and IV Dye] latex Allergy Rash/Hives Verified 06/25/20 20:43 Physical Exam Vitals: Vital Signs Temp Pulse Pulse Resp BP BP Pulse Ox 06/26/20 09:10 95 06/26/20 08:00 18 06/26/20 07:00 97.4 F L 79 21 120/75 96 06/26/20 03:00 97.5 F L 80 18 126/76 98 06/26/20 02:32 65 22 06/25/20 21:12 97.6 F 65 22 144/74 93 L 06/25/20 19:30 97.2 F L 89 28 H 143/74 96 06/25/20 19:13 88 06/25/20 19:04 87 06/25/20 18:59 18 06/25/20 18:34 98.2 F 95 28 H 120/79 93 L Intake and Output 06/25/20 06/26/20 06/26/20 22:59 06:59 14:59 Other: Voiding Method Toilet # Voids 1 Weight 68.039 kg GENERAL EXAM: Alert, pleasant 75-year-old gentleman, on 4 L nasal cannula, fairly comfortable in no apparent distress. HEAD: Normocephalic. EYES: Normal reaction of pupils, equal size. NOSE: Clear with pink turbinates. THROAT: No erythema or exudates. NECK: No masses, no JVD. CHEST: No chest wall deformity. LUNGS: Equal air entry with bilateral end expiratory wheeze, few scattered crackles, diminished. CVS: S1 and S2 normal with no audible murmur, regular rhythm. ABDOMEN: No hepatosplenomegaly, normal bowel sounds, no guarding or rigidity. SPINE: No scoliosis or deformity SKIN: No rashes CENTRAL NERVOUS SYSTEM: No focal deficits, tone is normal in all 4 extremities. EXTREMITIES: There is no peripheral edema. No clubbing, no cyanosis. Peripheral pulses are intact. Results - Laboratory Findings CBC and BMP: 06/25/20 18:44 06/25/20 18:44 PT/INR, D-dimer PT 10.4 sec (9.0-12.0) 06/25/20 18:44 INR 1.0 (<1.2) 06/25/20 18:44 D-Dimer 0.53 mg/L FEU (<0.60) 06/25/20 18:44 Abnormal lab findings: Abnormal Labs 06/25/20 06/25/20 18:44 18:44 WBC 13.0 H Neutrophils # 10.0 H Monocytes # 1.4 H Sodium 132 L BUN 23 H Creatine Kinase 50 L - Diagnostic Findings Chest x-ray: image reviewed Assessment and Plan Assessment: 1 Acute hypoxemic respiratory failure secondary to an acute exacerbation of chronic obstructive pulmonary disease, complicated by COVID-19 pneumonia that was diagnosed 06/20/2020. Recent discharge 06/21/2020. Not qualifying for Remdesivir or tocilizumab. 2 Advanced COPD with a baseline FEV1 of 53% predicted, stage III COPD, not on home oxygen, maintain on combination of Symbicort, Incruse and albuterol 3 Chronic smoker, chronic and ongoing, carries 60+ years of smoking 4 Paroxysmal A. fib on Eliquis 5 BPH 6 Bilateral cataract surgery with lens implants 7 Chronic low back pain 8 Pulmonary nodules with negative PET scan 9 Hypertension Plan: The patient was seen and evaluated by Dr. Arvizu Chest x-ray and labs reviewed Discontinue dexamethasone Start IV Solu-Medrol 60 mg every 6 hours Continue vitamin supplements Continue Symbicort, Spiriva, albuterol Anticoagulated with Eliquis Titrate the FiO2 as tolerated Again educated regarding the importance of complete smoking cessation We'll continue to follow and make further recommendations based on his clinical status I, the cosigning physician, performed a history & physical examination of the patient. Lungs sounds with bilateral end expiratory wheeze, few scattered crackles, diminished. Maintaining good O2 saturations in the 90s on 4 L/m per nasal cannula. I discussed the assessment and plan of care with my nurse practitioner, Qi Saez. I attest to the above consultation as dictated by her. Time with Patient: Greater than 30
--- NOTE | 2020-06-26 13:20 | P.HPIM ---
History of Present Illness H&P Date: 06/26/20 Chief Complaint: Shortness of breath Zeus 75-year-old gentleman with history of paroxysmal atrial fibrillation, COPD, pulmonary nodules, back surgery, ongoing nicotine dependence-at least a [id number] smoker and multiple other medical issues. presented to the ER with complaints of worsening dyspnea, nonproductive cough. Patient has not been vaccinated against coronavirus . He was possibly emergency room on June 20 and admitted overnight. He was discharge in the next day, which is very common for Shawn is a typically bounces back very quickly and doesn't wish to stay long. It appears he had a monoclonal antibodies while in the emergency room on June 20. Currently he Denies chest pain, palpitations. Denies fever or chills. No hemoptysis. Minimal nonproductive cough. Denies lightheadedness, dizziness or focal deficits. no vomiting or diarrhea. Denies syncope. Vital show controlled heart rate, sats show 95% on 4 L O2, blood pressure controlled. He is been afebrile this admission. There are no labs from today, yesterday evening to get a leukocytosis with WBC count 13 she'll count 10-1.4. Leg: Show a slight hyponatremia 132, BUN is 23 glucose 84. Troponin was negative, other labs noncontributory. Urinary EKG showed normal sinus rhythm. Chest x-ray showed ulnar interstitial infiltrates no significant difference from her most recent exam. Review of Systems All systems: negative Past Medical History Past Medical History: Atrial Fibrillation, COPD, Pneumonia, Prostate Disorder Additional Past Medical History / Comment(s): Paroxysmal Afib, bronchitis, pulmonary nodules/negative pet scan, BPH, constipation, vertigo, chronic low back pain/DDD. covid 06/22 History of Any Multi-Drug Resistant Organisms: None Reported Past Surgical History: Back Surgery Additional Past Surgical History / Comment(s): Bilateral cataract removals-lens implants, colonoscopy, multiple kyphoplasties. Past Anesthesia/Blood Transfusion Reactions: No Reported Reaction Additional Past Anesthesia/Blood Transfusion Reaction / Comment(s): Has never received any blood transfusions. Past Psychological History: No Psychological Hx Reported Additional Psychological History / Comment(s): Pt resides with his son, (Jt). They live in a downstairs apartment. Pt manages his own medications. He has a nebulizer. His son cooks and drives pt to [facility]. recently passed [email or web address]. Smoking Status: Current every day smoker Past Alcohol Use History: None Reported Additional Past Alcohol Use History / Comment(s): Pt started smoking age 12(1957) got up to 5 ppd for many years then cut down to 3 ppd, currently smoking a ppd or alittle more if his back is hurting. Past Drug Use History: None Reported - Past Family History Mother Family Medical History: AFIB, Dementia Father Family Medical History: Myocardial Infarction ([place]) Additional Family Medical History / Comment(s): in his 70's from [place] Medications and Allergies Home Medications Medication Instructions Recorded Confirmed Type Tamsulosin HCl [Flomax] 0.4 mg PO BID 03/24/18 06/25/20 History Apixaban [Eliquis] 5 mg PO BID 09/14/18 06/25/20 History Metoprolol Tartrate [Lopressor] 50 mg PO BID 02/04/19 06/25/20 History Ergocalciferol [Vitamin D2 1,250 mcg PO TU 05/05/19 06/25/20 History (DRISDOL)] Finasteride [Proscar] 5 mg PO DAILY 05/05/19 06/25/20 History Alendronate Sodium [Fosamax] 70 mg PO GROVES 08/21/19 06/25/20 History Ipratropium-Albuterol Nebulize 3 ml INHALATION RT-QID 02/27/20 06/25/20 History [Duoneb 0.5 mg-3 mg/3 ml Soln] Albuterol Sulfate [Proair Hfa] 2 puff INHALATION RT-QID PRN 04/28/20 06/25/20 History Budesonide/Formoterol Fumarate 2 puff INHALATION RT-BID 05/21/20 06/25/20 History [Symbicort 160-4.5 Mcg Inhaler] Ascorbic Acid [Vitamin C] 250 mg PO DAILY tab 06/21/20 06/25/20 Rx Colchicine [Colcrys] 0.6 mg PO DAILY #30 each 06/21/20 06/25/20 Rx Dexamethasone [Decadron] 6 mg PO DAILY #8 tablet 06/21/20 06/25/20 Rx Famotidine [Pepcid] 20 mg PO BID #60 tablet 06/21/20 06/25/20 Rx Zinc Sulfate [Orazinc] 220 mg PO DAILY #0 cap 06/21/20 06/25/20 Rx Allergies Allergy/AdvReac Type Severity Reaction Status Date / Time Iodinated Contrast Media Allergy Rash/Hives Verified 06/25/20 20:43 [Iodinated Contrast- Oral and IV Dye] latex Allergy Rash/Hives Verified 06/25/20 20:43 Physical Exam Vitals: Vital Signs Temp Pulse Pulse Resp BP BP Pulse Ox 06/26/20 09:10 95 06/26/20 08:00 18 06/26/20 07:00 97.4 F L 79 21 120/75 96 06/26/20 03:00 97.5 F L 80 18 126/76 98 06/26/20 02:32 65 22 06/25/20 21:12 97.6 F 65 22 144/74 93 L 06/25/20 19:30 97.2 F L 89 28 H 143/74 96 06/25/20 19:13 88 06/25/20 19:04 87 06/25/20 18:59 18 06/25/20 18:34 98.2 F 95 28 H 120/79 93 L Intake and Output 06/25/20 06/26/20 06/26/20 22:59 06:59 14:59 Other: Voiding Method Toilet # Voids 1 Weight 68.039 kg GENERAL: Somewhat fatigued, thin white male, and in no acute distress. HEAD: Atraumatic, normocephalic. EYES: Pupils equal round and reactive to light, extraocular movements intact, sclera anicteric, conjunctiva are normal. ENT:nares patent, oropharynx clear without exudates. Moist mucous membranes. NECK: Normal range of motion, supple without lymphadenopathy or JVD, no thyromegaly LUNGS: Breath sounds coarse with poor air exchange consistent with a significant underlying COPD. No wheezes rales or rhonchi. HEART: Regular rate and rhythm without murmurs, rubs or gallops.S1S2 Normal ABDOMEN: Soft, nontender, normoactive bowel sounds. No guarding, no rebound. No masses appreciated. EXTREMITIES: Normal range of motion, no pitting or edema. No clubbing or cyanosis. NEUROLOGICAL: Cranial nerves II through XII grossly intact. Normal speech, normal gait. PSYCH: Normal mood, normal affect. SKIN: Warm, Dry, normal turgor, no rashes or lesions noted. Results CBC & Chem 7: 06/25/20 18:44 06/25/20 18:44 Labs: Abnormal Lab Results - Last 24 Hours (Table) 06/25/20 06/25/20 Range/Units 18:44 18:44 WBC 13.0 H (3.8-10.6) k/uL Neutrophils # 10.0 H (1.3-7.7) k/uL Monocytes # 1.4 H (0-1.0) k/uL Sodium 132 L (137-145) mmol/L BUN 23 H (9-20) mg/dL Creatine Kinase 50 L (55-170) U/L Abdominal x-ray: report reviewed Thrombosis Risk Factor Assmnt - DVT/VTE Prophylaxis DVT/VTE Prophylaxis: Pharmacologic Prophylaxis ordered (He will continue on his oral Elequis) - Choose All That Apply Each Factor Represents 1 point: Abnormal pulmonary function (COPD) Each Risk Factor Represents 3 Points: Age 75 years or older Other congenital or acquired thrombophilia - If yes, enter type in comment: No Thrombosis Risk Factor Assessment Total Risk Factor Score: 4 Thrombosis Risk Factor Assessment Level: Moderate Risk Assessment and Plan (1) COPD with acute exacerbation Current Visit: Yes Status: Acute Code(s): J44.1 - CHRONIC OBSTRUCTIVE PULMONARY DISEASE W (ACUTE) EXACERBATION SNOMED Code(s): 298046025 (2) Acute hypercapnic respiratory failure Current Visit: No Status: Acute Code(s): J96.02 - ACUTE RESPIRATORY FAILURE WITH HYPERCAPNIA SNOMED Code(s): 634610821 (3) Atrial fibrillation Current Visit: No Status: Acute Code(s): I48.91 - UNSPECIFIED ATRIAL FIBRILLATION SNOMED Code(s): 67456890 (4) BPH (benign prostatic hyperplasia) Current Visit: No Status: Acute Code(s): N40.0 - BENIGN PROSTATIC HYPERPLASIA WITHOUT LOWER URINRY TRACT SYMP SNOMED Code(s): 497261901 (5) Chronic low back pain Current Visit: No Status: Acute Code(s): M54.5 - LOW BACK PAIN; G89.29 - OTHER CHRONIC PAIN SNOMED Code(s): 106889945 (6) Failure of outpatient treatment Current Visit: No Status: Acute Code(s): Z78.9 - OTHER SPECIFIED HEALTH STATUS SNOMED Code(s): 939594657 (7) High risk for readmission Current Visit: No Status: Acute Code(s): Z91.89 - OTH PERSONAL RISK FACTORS, NOT ELSEWHERE CLASSIFIED SNOMED Code(s): 766833789 (8) Nicotine dependence Current Visit: No Status: Acute Code(s): F17.200 - NICOTINE DEPENDENCE, UNSPECIFIED, UNCOMPLICATED SNOMED Code(s): 71894696 (9) Pneumonia due to COVID-19 virus Current Visit: No Status: Acute Code(s): U07.1 - COVID-19; J12.82 - Pneumonia due to coronavirus disease 2019 SNOMED Code(s): 965804181466155295 (10) Tobacco abuse counseling Current Visit: No Status: Acute Code(s): Z71.6 - TOBACCO ABUSE COUNSELING SNOMED Code(s): 413101238 Plan: He is status post echo and antibiotic infusion on 06/20/2020. He is currently on vitamin C D zinc and colchicine at this time. He is also on steroids. He is positive for COVID-19 and has significant COPD and remains smoking, we'll consult pulmonology. He'll continue on Elequis for anticoagulation and first proximal is like fibrillation. He will be restarted on his Symbicort and DuoNeb updrafts as needed. He's been started on methylprednisolone. He'll remain on metoprolol. Her main on tamsulosin and finasteride. He has tramadol ordered for his low back pain when necessary. We'll repeat labs in am. He appears close to his baseline and most likely the Coban antibodies have prevented him from significantly worsening. Reevaluate him in the next 24 hours. Wait and recommendations pulmonology.
[2020-06-26] MEDS: methylPREDNISolone SOD SUCCI 125 MG/2 ML VIAL IV SCH ×2 (13:58→17:32)
[2020-06-27] MEDS: methylPREDNISolone SOD SUCCI 125 MG/2 ML VIAL IV SCH ×3 (00:20→13:10)
[2020-06-27] MEDS: traMADol 50 MG TAB PO PRN (05:49)
[2020-06-27 07:35] VITALS: RESP 20
[2020-06-27] MEDS: ZINC SULFATE 220 MG CAP PO SCH (08:27)
[2020-06-27] MEDS: ASCORBIC ACID 500 MG TAB PO SCH (08:27)
[2020-06-27] MEDS: FINASTERIDE 5 MG TAB PO SCH (08:27)
[2020-06-27] MEDS: METOPROLOL TARTRATE 50 MG TAB PO SCH (08:27)
[2020-06-27] MEDS: FAMOTIDINE 20 MG TAB PO SCH (08:27)
[2020-06-27] MEDS: APIXABAN 5 MG TAB PO SCH (08:27)
[2020-06-27] MEDS: TAMSULOSIN 0.4 MG CAP.ER.24H PO SCH (08:27)
[2020-06-27] MEDS: COLCHICINE 0.6 MG EACH PO SCH (08:27)
[2020-06-27 08:56] LABS: HCT 37.3 % (39.6-50.0); HGB 13.5 g/dL (13.0-17.0); MCH 34.9 pg (27.0-32.0); MCHC 36.2 g/dL (32.0-37.0); MCV 96.4 fL (80.0-97.0); Mean Platelet Volume 10.4 fL (9.5-12.2); Platelet Count 306 X 10*3/uL (140-440); RBC 3.87 X 10*6/uL (4.40-5.60); RDW 13.1 % (11.5-14.5); WBC 16.33 X 10*3/uL (4.50-10.00)
--- NOTE | 2020-06-27 09:08 | XR ---
EXAMINATION TYPE: XR chest 1V portable DATE OF EXAM: 06/27/2020 COMPARISON: Chest x-ray 06/25/2020 HISTORY: Covid, shortness of breath TECHNIQUE: Single frontal view of the chest is obtained. FINDINGS: Patchy bilateral airspace disease is again noted. Cardiac mediastinal silhouette shows a s imilar appearance. There is no evident pneumothorax or pleural effusion. IMPRESSION: Correlate for pneumonia.
[2020-06-27 09:09] LABS: African American GFR (CKD) 96.5 (60.0-200.0); Albumin 4.1 g/dL (3.80-4.90); Albumin/Globulin Ratio 2.28 (1.60-3.17); Anion Gap 6.2 mmol/L (4.00-12.00); BUN/Creat Ratio 35.56 Ratio (12.00-20.00); Calcium 9.2 mg/dL (8.7-10.3); Carbon Dioxide 26.8 mmol/L (21.6-31.8); Globulin 1.8 g/dL (1.6-3.3); Non-African American GFR(CKD) 83.3 (60.0-200.0); Potassium 4.7 mmol/L (3.5-5.5); Total Bilirubin 0.6 mg/dL (0.2-1.2); Total Protein 5.9 g/dL (6.2-8.2)
[2020-06-27] MEDS: TIOTROPIUM 2.5 MCG INHALER INHALATION SCH (09:13)
[2020-06-27] MEDS: SYMBICORT 160-4.5 MCG INHALER INHALATION SCH (09:13)
[2020-06-27] MEDS: ALBUTEROL HFA INHALER INHALATION SCH ×2 (09:13→11:45)
--- NOTE | 2020-06-27 10:20 | P.DS ---
Providers Date of admission: 06/27/20 08:59 Expected date of discharge: 06/27/20 Attending physician: Fernando Lambert Consults: 06/25/20 20:10 Consult Physician Routine Consulting Provider: Flakita Arvizu Consult Reason/Comments: COPD exacerbation Do you want consulting provider notified?: Yes Primary care physician: [facility] Course: Final diagnoses Acute hypoxic respiratory failure secondary to acute COPD exacerbation, complicated by COVID-19 pneumonia, status post BAM, discharged 06/21/2020. Advanced COPD, stage III Ongoing Nicotine dependence Chronic atrial fibrillation, paroxysmal, anticoagulated on Eliquis BPH Chronic low back pain Hypertension Hospital course: This is a 75-year-old gentleman initially discharged with COVID-19 pneumonia, status post BAM on 06/21/2020. Patient was scheduled on 06/23/2020 for tele visit with , instead returned back to the ER ,at baseline, discharged. Returned to the ER on 06/25/2020, admitted, evaluated by pulmonary. Received aggressive pulmonary toileting, nebulized bronchodilators, IV steroids with significant clinical improvement.. Patient is being discharged home today in stable condition with guarded prognosis pending final DC recommendations and clearance from pulmonary. Patient is eager for discharge, smoking cessation reinforced, reinstructed on completing his quarantine, and a tele visit this week with PCP via phone, as patient does not have a computer or tablet. The impression and plan of care has been dictated as directed. : I performed a history and examination of this patient, discussed the same with the dictator. I agree with the dictator's note ,documented as a scribe. Any additional findings or plans will be noted. Patient Condition at Discharge: Stable Plan - Discharge Summary Discharge Rx Participant: No New Discharge Prescriptions: New Nicotine 14Mg/24Hr Patch [Habitrol] 1 patch TRANSDERM DAILY #30 patch Continue Tamsulosin HCl [Flomax] 0.4 mg PO BID Apixaban [Eliquis] 5 mg PO BID Metoprolol Tartrate [Lopressor] 50 mg PO BID Finasteride [Proscar] 5 mg PO DAILY Ergocalciferol [Vitamin D2 (DRISDOL)] 1,250 mcg PO TU Alendronate Sodium [Fosamax] 70 mg PO GROVES Ipratropium-Albuterol Nebulize [Duoneb 0.5 mg-3 mg/3 ml Soln] 3 ml INHALATION RT-QID Albuterol Sulfate [Proair Hfa] 2 puff INHALATION RT-QID PRN PRN Reason: Shortness Of Breath Budesonide/Formoterol Fumarate [Symbicort 160-4.5 Mcg Inhaler] 2 puff INHALATION RT-BID Colchicine [Colcrys] 0.6 mg PO DAILY #30 each Zinc Sulfate [Orazinc] 220 mg PO DAILY #0 cap Famotidine [Pepcid] 20 mg PO BID #60 tablet Dexamethasone [Decadron] 6 mg PO DAILY #5 tablet Ascorbic Acid [Vitamin C] 250 mg PO DAILY tab Discharge Medication List Tamsulosin HCl [Flomax] 0.4 mg PO BID 03/24/18 [History] Apixaban [Eliquis] 5 mg PO BID 09/14/18 [History] Metoprolol Tartrate [Lopressor] 50 mg PO BID 02/04/19 [History] Ergocalciferol [Vitamin D2 (DRISDOL)] 1,250 mcg PO TU 05/05/19 [History] Finasteride [Proscar] 5 mg PO DAILY 05/05/19 [History] Alendronate Sodium [Fosamax] 70 mg PO GROVES 08/21/19 [History] Ipratropium-Albuterol Nebulize [Duoneb 0.5 mg-3 mg/3 ml Soln] 3 ml INHALATION RT-QID 02/27/20 [History] Albuterol Sulfate [Proair Hfa] 2 puff INHALATION RT-QID PRN 04/28/20 [History] Budesonide/Formoterol Fumarate [Symbicort 160-4.5 Mcg Inhaler] 2 puff INHALATION RT-BID 05/21/20 [History] Ascorbic Acid [Vitamin C] 250 mg PO DAILY tab 06/21/20 [Rx] Colchicine [Colcrys] 0.6 mg PO DAILY #30 each 06/21/20 [Rx] Famotidine [Pepcid] 20 mg PO BID #60 tablet 06/21/20 [Rx] Zinc Sulfate [Orazinc] 220 mg PO DAILY #0 cap 06/21/20 [Rx] Dexamethasone [Decadron] 6 mg PO DAILY #5 tablet 06/27/20 [Rx] Nicotine 14Mg/24Hr Patch [Habitrol] 1 patch TRANSDERM DAILY #30 patch 06/27/20 [Rx] Follow up Appointment(s)/Referral(s): Fernando Lambert Jr, [Primary Care Provider] - 3 Days (Patient does not have a computer, nor a tablet, has been re-instructed to telephone and for tele- visit.) Activity/Diet/Wound Care/Special Instructions: Complete quarantine as advised. Smoking cessation reinforced.
[2020-06-27 10:40] LABS: Basophils # (M) 0 X 10*3/uL (0.00-0.10); Eosinophils # (M) 0 X 10*3/uL (0.04-0.35); Lymphocytes # (M) 0.82 X 10*3/uL (0.90-5.00); Metamyelocytes % 3 % (0-0); Monocytes # (M) 0.82 X 10*3/uL (0.20-1.00); Myelocytes % 3 % (0-0); Neutrophils # (M) 13.72 X 10*3/uL (2.00-8.90); Neutrophils % (M) 84 %
[2020-06-27 14:36] VITALS: BP 120/73; PULSE 83; TEMP 97.6
--- NOTE | 2020-06-27 15:03 | P.PN ---
Subjective Progress Note Date: 06/27/20 Principal diagnosis: Acute hypoxic respiratory failure related to acute exacerbation of COPD, and recent history of COVID-19 pneumonia This is a very pleasant 75-year-old white male patient who follows in our office for his history of COPD, not on home oxygen, chronic smoker, with the past medical history of atrial fibrillation on Eliquis, chronic low back pain. Baseline FEV1 is 53% of predicted, and patient is maintained on Symbicort, Incruse Ellipta, and Albuterol. He has had multiple admissions for COPD exacerbations. He does continue to smoke. He was most recently discharged here on 06/21/2020 for COPD exacerbation, complicated by COVID-19 pneumonia. He tested positive on 06/20/2020. He presented here to the emergency room yesterday with complaints of increasing shortness of breath started again 2 days prior to his arrival. No fever, chills or night sweats. Positive for chest tightness and wheezing. His home medications did not seem to be helping. Chest x-ray continued to show coarse interstitial infiltrates throughout both lungs but no worse compared to previous. He's been afebrile. Hemodynamically stable. He is seen today in consultation on the regular medical floor. He is currently resting fairly comfortably in bed. He is dyspneic with minimal exertion. Dyspneic with conversation. Currently maintaining O2 saturation in the mid 90s on 4 L/m per nasal cannula. White count 13.0. Hemoglobin 13.4. D-dimer 0.53. Lymphocytes 1.1. Sodium 132. Potassium 4.8. Creatinine 0.89. ProBNP 173. AST 29. ALT 39. He's been initiated on Symbicort, Spiriva, albuterol, Decadron, vitamin supplements. Anticoagulated with Eliquis. On the 2020 patient seen in follow-up on medical surgical floor, he is on room air, his breathing comfortably, pulse ox is 91-94%, no acute distress, no fever or chills, no specific complaints, he states his breathing is much improved since admission, follow-up chest x-ray today shows patchy bilateral airspace disease. Clinically improving, today's labs are reviewed showing quite blood cell count is 16.3, hemoglobin is 13.5, sodium is 134, dressing electrolytes were unremarkable, B1 is 32 creatinine 0.9, LFTs were within normal limits. Cultures were negative. She remains on Eliquis, IV steroids 60 mg every 6 hours in addition to inhalers. Objective - Vital Signs Vital signs: Vital Signs Temp 97.6 F 06/27/20 14:30 Pulse 83 06/27/20 14:30 Resp 20 06/27/20 14:30 BP 120/73 06/27/20 14:30 Pulse Ox 91 L 06/27/20 14:30 Intake & Output 06/26/20 06/27/20 06/27/20 18:59 06:59 18:59 Intake Total 480 Output Total 300 Balance 480 -300 Intake: Oral 480 Output: Urine 300 Other: Voiding Method Toilet # Voids 2 2 3 - Exam GENERAL EXAM: Alert, very pleasant, 75-year-old white male, on room air, with a pulse oxygen 91-94%, comfortable in no apparent distress. HEAD: Normocephalic/atraumatic. EYES: Normal reaction of pupils, equal size. Conjunctiva pink, sclera white. NOSE: Clear with pink turbinates. THROAT: No erythema or exudates. NECK: No masses, no JVD, no thyroid enlargement, no adenopathy. CHEST: No chest wall deformity. Symmetrical expansion. LUNGS: Equal air entry with minimal crackles, no wheezes CVS: Regular rate and rhythm, normal S1 and S2, no gallops, no murmurs, no rubs ABDOMEN: Soft, nontender. No hepatosplenomegaly, normal bowel sounds, no guarding or rigidity. EXTREMITIES: No clubbing, no edema, no cyanosis, 2+ pulses and upper and lower extremities. MUSCULOSKELETAL: Muscle strength and tone normal. SPINE: No scoliosis or deformity SKIN: No rashes CENTRAL NERVOUS SYSTEM: Alert and oriented -3. No focal deficits, tone is normal in all 4 extremities. PSYCHIATRIC: Alert and oriented -3. Appropriate affect. Intact judgment and insight. - Labs CBC & Chem 7: 06/27/20 05:52 06/27/20 05:52 Labs: Abnormal Lab Results - Last 24 Hours (Table) 06/27/20 06/27/20 Range/Units 05:52 05:52 WBC 16.33 H (4.50-10.00) X 10*3/uL RBC 3.87 L (4.40-5.60) X 10*6/uL Hct 37.3 L (39.6-50.0) % MCH 34.9 H (27.0-32.0) pg Metamyelocytes % 3 H (0-0) % Myelocytes % 3 H (0-0) % Neutrophils # (Manual) 13.72 H (2.00-8.90) X 10*3/uL Lymphocytes # (Manual) 0.82 L (0.90-5.00) X 10*3/uL Eosinophils # (Manual) 0 L (0.04-0.35) X 10*3/uL Sodium 134 L (135-145) mmol/L BUN 32.0 H (9.0-27.0) mg/dL BUN/Creatinine Ratio 35.56 H (12.00-20.00) Ratio Glucose 140 H (70-110) mg/dL Total Protein 5.9 L (6.2-8.2) g/dL Microbiology - Last 24 Hours (Table) 06/25/20 18:50 Blood Culture - Preliminary Blood No Growth after 24 hours 06/25/20 18:44 Blood Culture - Preliminary Blood No Growth after 24 hours Assessment and Plan Plan: Assessment: 1 Acute hypoxemic respiratory failure secondary to an acute exacerbation of chronic obstructive pulmonary disease, complicated by COVID-19 pneumonia that was diagnosed 06/20/2020. Recent discharge 06/21/2020. Not qualifying for Remdesivir or tocilizumab. 2 Advanced COPD with a baseline FEV1 of 53% predicted, stage III COPD, not on home oxygen, maintain on combination of Symbicort, Incruse and albuterol 3 Chronic smoker, chronic and ongoing, carries 60+ years of smoking 4 Paroxysmal A. fib on Eliquis 5 BPH 6 Bilateral cataract surgery with lens implants 7 Chronic low back pain 8 Pulmonary nodules with negative PET scan 9 Hypertension Plan: Patient is doing well Clinically improving Maintaining O2 saturations above 90% on room air No acute events overnight No fever or chills Continue oral anticoagulation Patient can be switched to oral prednisone Stable for discharge from pulmonary perspective Follow-up with Dr. Saez in the office in 2 weeks I performed a history & physical examination of the patient and discussed their management with my nurse practitioner, Coleen Worley. I reviewed the nurse practitioner's note and agree with the documented findings and plan of care. Lung sounds are positive for diminished breath sounds with bilateral crackles. The findings and the impression was discussed with the patient. I attest to the documentation by the nurse practitioner. Time with Patient: Less than 30
[2020-06-28] MEDS ORDERED: ERGOCALCIFEROL 1,250 MCG (50,000 IU) CAPSULE PO SCH (09:00)
== END 2020-06-27 15:15 | disposition home or self-care (01) | DRG 190 ==
LOC: EC 18:33 → 6NMEDSUR 20:10 → OBSVTOIN 06-27 08:59
PROVIDERS: ADMIT Family Medicine; ATTEND Family Medicine
DX: J44.1 Chronic obstructive pulmonary disease with (acute) exacerbation (principal); U07.1 COVID-19; J96.01 Acute respiratory failure with hypoxia; J96.02 Acute respiratory failure with hypercapnia; J12.82 Pneumonia due to coronavirus disease 2019; I48.20 Chronic atrial fibrillation, unspecified; J44.0 Chronic obstructive pulmonary disease with (acute) lower respiratory infection; Z79.01 Long term (current) use of anticoagulants; Z79.51 Long term (current) use of inhaled steroids; I48.0 Paroxysmal atrial fibrillation; N40.0 Benign prostatic hyperplasia without lower urinary tract symptoms; F17.200 Nicotine dependence, unspecified, uncomplicated; Z82.49 Family history of ischemic heart disease and other diseases of the circulatory system; G89.29 Other chronic pain; Z96.1 Presence of intraocular lens; I10 Essential (primary) hypertension; Z79.83 Long term (current) use of bisphosphonates; Z79.899 Other long term (current) drug therapy; Z98.41 Cataract extraction status, right eye; Z98.42 Cataract extraction status, left eye
CPT/HCPCS: 36415; 71045; 71046; 80053; 82550; 83605; 83735; 83880; 84484; 85025; 85379; 85610; 85730; 87040; 93005; 94640; 94760; 96374; 99285

== ENCOUNTER 2020-07-01 17:20 | Emergency (ER) | payer MEDICARE ==
[2020-07-01 17:26] VITALS: BP 165/92; PULSE 100; RESP 16; TEMP 97.8
--- NOTE | 2020-07-01 17:54 | ED ---
General Adult HPI - General Chief complaint: Extremity Problem,Nontraumatic Stated complaint: Pain Time Seen by Provider: 07/01/20 17:35 Source: patient Mode of arrival: wheelchair Limitations: no limitations - History of Present Illness Initial comments: Dictation was produced using [employer] dictation software. please excuse any grammatical, word or spelling errors. This patient was cared for during a federal and state declared state of emergenc y secondary to Covid 19 Chief Complaint: 75-year-old male multiple comorbidities presents to the emergency department for total body pain History of Present Illness: Is 75-year-old male he has extensive history of medical comorbidities. He has history of A. fib, COPD and pneumonia. Patient recently admitted for respiratory failure secondary to COPD exacerbation. He is brought to the emergency room by his son. Patient states that he has pain all over his body from his scalp to his toes. Patient denies abdominal pain. No nausea vomiting. No constitutional symptoms.. The ROS documented in this emergency department record has been reviewed and confirmed by me. Those systems with pertinent positive or negative responses have been documented in the HPI. All other systems are other negative and/or noncontributory. PHYSICAL EXAM: General Impression: Alert and oriented x3, not in acute distress HEENT: Normocephalic atraumatic, extra-ocular movements intact, pupils equal and reactive to light bilaterally, mucous membranes moist. Cardiovascular: Heart regular rate and rhythm Chest: Able to complete full sentences, no retractions, no tachypnea Abdomen: abdomen soft, non-tender, non-distended, no organomegaly Musculoskeletal: Pulses present and equal in all extremities, no peripheral edema Motor: no focal deficits noted Neurological: CN II-XII grossly intact, no focal motor or sensory deficits noted Skin: Intact with no visualized rashes Psych: Normal affect and mood ED course: 75-year-old male presents to the emergency department for total body pain. Signs upon arrival are within acceptable limits. Patient's well- appearing at bedside. Laboratory evaluation is unremarkable. No findings of rhabdomyolysis. Patient prescription for methocarbamol. Patient discharge. Advised follow-up with PCP. - Related Data Home Medications Medication Instructions Recorded Confirmed Tamsulosin HCl [Flomax] 0.4 mg PO BID 03/24/18 06/25/20 Apixaban [Eliquis] 5 mg PO BID 09/14/18 06/25/20 Metoprolol Tartrate [Lopressor] 50 mg PO BID 02/04/19 06/25/20 Ergocalciferol [Vitamin D2 1,250 mcg PO TU 05/05/19 06/25/20 (DRISDOL)] Finasteride [Proscar] 5 mg PO DAILY 05/05/19 06/25/20 Alendronate Sodium [Fosamax] 70 mg PO GROVES 08/21/19 06/25/20 Ipratropium-Albuterol Nebulize 3 ml INHALATION RT-QID 02/27/20 06/25/20 [Duoneb 0.5 mg-3 mg/3 ml Soln] Albuterol Sulfate [Proair Hfa] 2 puff INHALATION RT-QID PRN 04/28/20 06/25/20 Budesonide/Formoterol Fumarate 2 puff INHALATION RT-BID 05/21/20 06/25/20 [Symbicort 160-4.5 Mcg Inhaler] Previous Rx's Medication Instructions Recorded Ascorbic Acid [Vitamin C] 250 mg PO DAILY tab 06/21/20 Colchicine [Colcrys] 0.6 mg PO DAILY #30 each 06/21/20 Famotidine [Pepcid] 20 mg PO BID #60 tablet 06/21/20 Zinc Sulfate [Orazinc] 220 mg PO DAILY #0 cap 06/21/20 Nicotine 14Mg/24Hr Patch [Habitrol] 1 patch TRANSDERM DAILY #30 patch 06/27/20 predniSONE 10 mg PO DIRECTED #30 tab 06/27/20 methocarbamoL [Robaxin] 1,000 mg PO TID PRN #30 tab 07/01/20 Allergies Allergy/AdvReac Type Severity Reaction Status Date / Time Iodinated Contrast Media Allergy Rash/Hives Verified 07/01/20 17:22 [Iodinated Contrast- Oral and IV Dye] latex Allergy Rash/Hives Verified 07/01/20 17:22 Review of Systems ROS Statement: Those systems with pertinent positive or pertinent negative responses have been documented in the HPI. ROS Other: All systems not noted in ROS Statement are negative. Past Medical History Past Medical History: Atrial Fibrillation, COPD, Pneumonia, Prostate Disorder Additional Past Medical History / Comment(s): Paroxysmal Afib, bronchitis, pulmonary nodules/negative pet scan, BPH, constipation, vertigo, chronic low b ack pain/DDD. covid 06/22 History of Any Multi-Drug Resistant Organisms: None Reported Past Surgical History: Back Surgery Additional Past Surgical History / Comment(s): Bilateral cataract removals-lens implants, colonoscopy, multiple kyphoplasties. Past Anesthesia/Blood Transfusion Reactions: No Reported Reaction Additional Past Anesthesia/Blood Transfusion Reaction / Comment(s): Has never received any blood transfusions. Past Psychological History: No Psychological Hx Reported Smoking Status: Current every day smoker Past Alcohol Use History: None Reported Past Drug Use History: None Reported - Past Family History Mother Family Medical History: AFIB, Dementia Father Family Medical History: Myocardial Infarction ([place]) Additional Family Medical History / Comment(s): in his 70's [place] General Exam Limitations: no limitations Course Vital Signs 07/01/20 17:22 Temperature 97.8 F Pulse Rate 100 Respiratory 16 Rate Blood Pressure 165/92 O2 Sat by Pulse 94 L Oximetry Medical Decision Making - Lab Data Result diagrams: 07/01/20 17:57 07/01/20 17:57 Lab Results 07/01/20 07/01/20 Range/Units 17:57 17:57 WBC 14.2 H (3.8-10.6) k/uL RBC 4.77 (4.30-5.90) m/uL Hgb 15.6 (13.0-17.5) gm/dL Hct 44.5 (39.0-53.0) % MCV 93.4 (80.0-100.0) fL MCH 32.7 (25.0-35.0) pg MCHC 35.0 (31.0-37.0) g/dL RDW 13.3 (11.5-15.5) % Plt Count 282 (150-450) k/uL MPV 7.4 Neutrophils % 83 % Lymphocytes % 8 % Monocytes % 7 % Eosinophils % 1 % Basophils % 1 % Neutrophils # 11.7 H (1.3-7.7) k/uL Lymphocytes # 1.1 (1.0-4.8) k/uL Monocytes # 0.9 (0-1.0) k/uL Eosinophils # 0.2 (0-0.7) k/uL Basophils # 0.1 (0-0.2) k/uL Sodium 135 L (137-145) mmol/L Chloride 104 (98-107) mmol/L Carbon Dioxide 22 (22-30) mmol/L Anion Gap 9 mmol/L BUN 34 H (9-20) mg/dL Creatinine 0.92 (0.66-1.25) mg/dL Est GFR (CKD-EPI)AfAm >90 (>60 ml/min/1.73 sqM) Est GFR (CKD-EPI)NonAf 81 (>60 ml/min/1.73 sqM) Glucose 81 (74-99) mg/dL Calcium 9.4 (8.4-10.2) mg/dL Creatine Kinase 32 L (55-170) U/L Disposition Clinical Impression: Myalgia Disposition: HOME SELF-CARE Condition: Good Instructions (If sedation given, give patient instructions): Methocarbamol (By mouth) Prescriptions: methocarbamoL [Robaxin] 1,000 mg PO TID PRN #30 tab PRN Reason: Muscle Pain Is patient prescribed a controlled substance at d/c from ED?: No When asked, does pt state using other controlled substances?: No Referrals: Fernando Lambert Jr, [Primary Care Provider] - 1-2 days Time of Disposition: 18:30
[2020-07-01 18:13] LABS: Basophils # (A) 0.1 k/uL (0-0.2); Basophils % (A) 1 %; Eosinophils # (A) 0.2 k/uL (0-0.7); Eosinophils % (A) 1 %; HCT 44.5 % (39.0-53.0); HGB 15.6 gm/dL (13.0-17.5); Lymphocytes # (A) 1.1 k/uL (1.0-4.8); Lymphocytes % (A) 8 %; MCH 32.7 pg (25.0-35.0); MCV 93.4 fL (80.0-100.0); Mean Platelet Volume 7.4; Monocytes # (A) 0.9 k/uL (0-1.0); Monocytes % (A) 7 %; Neutrophils # (A) 11.7 k/uL (1.3-7.7); Neutrophils % (A) 83 %; Platelet Count 282 k/uL (150-450); RBC 4.77 m/uL (4.30-5.90); RDW 13.3 % (11.5-15.5); WBC 14.2 k/uL (3.8-10.6)
[2020-07-01 18:21] LABS: African American GFR (CKD) >90 (>60 ml/min/1.73 sqM); Anion Gap 9 mmol/L; Blood Urea Nitrogen 34 mg/dL (9-20); Calcium 9.4 mg/dL (8.4-10.2); Carbon Dioxide 22 mmol/L (22-30); Chloride 104 mmol/L (98-107); Creatine Kinase 32 U/L (55-170); Glucose 81 mg/dL (74-99); Non-African American GFR(CKD) 81 (>60 ml/min/1.73 sqM); Sodium 135 mmol/L (137-145)
[2020-07-01 18:41] LABS: Potassium 4.1 mmol/L (3.5-5.1)
== END 2020-07-01 18:53 | disposition home or self-care (01) ==
LOC: EC 17:20
DX: M79.10 Myalgia, unspecified site (principal); J44.9 Chronic obstructive pulmonary disease, unspecified; I48.0 Paroxysmal atrial fibrillation; N40.0 Benign prostatic hyperplasia without lower urinary tract symptoms; F17.200 Nicotine dependence, unspecified, uncomplicated; Z79.01 Long term (current) use of anticoagulants; Z79.51 Long term (current) use of inhaled steroids; Z79.52 Long term (current) use of systemic steroids; Z82.49 Family history of ischemic heart disease and other diseases of the circulatory system; Z88.8 Allergy status to other drugs, medicaments and biological substances; Z91.040 Latex allergy status
CPT/HCPCS: 36415; 80048; 82550; 85025; 99283

== ENCOUNTER 2020-08-30 20:14 | Emergency (ER) | payer MEDICARE ==
[2020-08-30 20:22] VITALS: TEMP 97.9
[2020-08-30] MEDS ORDERED: IPRATROPIUM-ALBUTEROL 3 ML NEB INHALATION STA (20:59)
[2020-08-30] MEDS ORDERED: methylPREDNISolone SOD SUCCI 125 MG/2 ML VIAL IV STA (20:59)
--- NOTE | 2020-08-30 21:05 | ED ---
SOB HPI - General Chief Complaint: Shortness of Breath Stated Complaint: SOB Source: patient, RN notes reviewed Mode of arrival: wheelchair Limitations: no limitations - History of Present Illness Initial Comments: 75-year-old alert and oriented white male, presents to the emergency room with complaints of worsening shortness of breath over the past 3 days. Patient states that it is worsened by the heat and humidity and resolves when he comes in and outside. Patient denies any chest pain. He states that he has not had a productive cough and he has no fevers. Patient denies also nausea, vomiting, or diarrhea. Patient states that he does use his nebulizer at home every 6 hours but he states this doesn't last long enough. He is not remember the last time he was hospitalized for COPD exacerbation. He states that he does not use oxygen at home. Patient has a history of COPD, atrial fibrillation, multiple back surgeries with degenerative disc disease. MD Complaint: shortness of breath, cough -: days(s) (3) Severity scale (1-10): 0 Improves With: oxygen, bronchodilators Worsens With: other (Heat and humidity) Known History Of: COPD Associated Symptoms: denies other symptoms Treatments Prior to Arrival: bronchodilator - Related Data Home Medications Medication Instructions Recorded Confirmed Tamsulosin HCl [Flomax] 0.4 mg PO BID 03/24/18 06/25/20 Apixaban [Eliquis] 5 mg PO BID 09/14/18 06/25/20 Metoprolol Tartrate [Lopressor] 50 mg PO BID 02/04/19 06/25/20 Ergocalciferol [Vitamin D2 1,250 mcg PO TU 05/05/19 06/25/20 (DRISDOL)] Finasteride [Proscar] 5 mg PO DAILY 05/05/19 06/25/20 Alendronate Sodium [Fosamax] 70 mg PO GROVES 08/21/19 06/25/20 Ipratropium-Albuterol Nebulize 3 ml INHALATION RT-QID 02/27/20 06/25/20 [Duoneb 0.5 mg-3 mg/3 ml Soln] Albuterol Sulfate [Proair Hfa] 2 puff INHALATION RT-QID PRN 04/28/20 06/25/20 Budesonide/Formoterol Fumarate 2 puff INHALATION RT-BID 05/21/20 06/25/20 [Symbicort 160-4.5 Mcg Inhaler] Previous Rx's Medication Instructions Recorded Ascorbic Acid [Vitamin C] 250 mg PO DAILY tab 06/21/20 Colchicine [Colcrys] 0.6 mg PO DAILY #30 each 06/21/20 Famotidine [Pepcid] 20 mg PO BID #60 tablet 06/21/20 Zinc Sulfate [Orazinc] 220 mg PO DAILY #0 cap 06/21/20 Nicotine 14Mg/24Hr Patch [Habitrol] 1 patch TRANSDERM DAILY #30 patch 06/27/20 predniSONE 10 mg PO DIRECTED #30 tab 06/27/20 methocarbamoL [Robaxin] 1,000 mg PO TID PRN #30 tab 07/01/20 predniSONE 50 mg PO DAILY #5 tab 08/30/20 Allergies Allergy/AdvReac Type Severity Reaction Status Date / Time Iodinated Contrast Media Allergy Rash/Hives Verified 08/30/20 20:23 [Iodinated Contrast- Oral and IV Dye] latex Allergy Rash/Hives Verified 08/30/20 20:23 Review of Systems ROS Statement: Those systems with pertinent positive or pertinent negative responses have been documented in the HPI. ROS Other: All systems not noted in ROS Statement are negative. Past Medical History Past Medical History: COPD Additional Past Medical History / Comment(s): Paroxysmal Afib, bronchitis, pulmonary nodules/negative pet scan, BPH, constipation, vertigo, chronic low back pain/DDD. covid 06/22 History of Any Multi-Drug Resistant Organisms: None Reported Past Surgical History: Back Surgery Additional Past Surgical History / Comment(s): Bilateral cataract removals-lens implants, colonoscopy, multiple kyphoplasties. Past Anesthesia/Blood Transfusion Reactions: No Reported Reaction Additional Past Anesthesia/Blood Transfusion Reaction / Comment(s): Has never received any blood transfusions. Past Psychological History: No Psychological Hx Reported Smoking Status: Current every day smoker Past Alcohol Use History: None Reported Past Drug Use History: None Reported - Past Family History Mother Family Medical History: AFIB, Dementia Father Family Medical History: Myocardial Infarction ([place]) Additional Family Medical History / Comment(s): in his 70's [place] General Exam Limitations: no limitations General appearance: alert, in no apparent distress Head exam: Present: atraumatic, normocephalic, normal inspection Eye exam: Present: normal appearance, PERRL, EOMI. Absent: scleral icterus, conjunctival injection, periorbital swelling Pupils: Present: normal accommodation ENT exam: Present: normal exam, normal oropharynx, mucous membranes moist Neck exam: Present: normal inspection, full ROM. Absent: tenderness, meningismus, lymphadenopathy, thyromegaly Respiratory exam: Present: wheezes. Absent: respiratory distress, stridor, chest wall tenderness, accessory muscle use, decreased breath sounds Cardiovascular Exam: Present: regular rate, normal rhythm, normal heart sounds. Absent: systolic murmur, diastolic murmur, rubs, gallop, clicks GI/Abdominal exam: Present: soft, normal bowel sounds. Absent: distended, tenderness, guarding, rebound, rigid Extremities exam: Present: normal inspection, full ROM, normal capillary refill. Absent: tenderness, pedal edema, joint swelling, calf tenderness Back exam: Present: normal inspection, full ROM. Absent: tenderness, CVA tenderness (R), CVA tenderness (L), muscle spasm, paraspinal tenderness, vertebral tenderness, rash noted Neurological exam: Present: alert, oriented X3, CN II-XII intact Psychiatric exam: Present: normal affect, normal mood Skin exam: Present: warm, dry, intact, normal color. Absent: rash, cyanosis, diaphoretic, erythema, petechiae, pallor, mottled Course Vital Signs 08/30/20 08/30/20 08/30/20 20:19 21:12 21:19 Temperature 97.9 F Pulse Rate 87 78 81 Respiratory 20 18 18 Rate Blood Pressure 119/65 O2 Sat by Pulse 93 L Oximetry 08/30/20 21:50 Temperature Pulse Rate 80 Respiratory 18 Rate Blood Pressure 118/82 O2 Sat by Pulse 96 Oximetry Medical Decision Making - Medical Decision Making EKG shows sinus rhythm with no evidence of ST elevation. His WBC count is 9.9 hemoglobin and hematocrit is 14 and 42 respectively. Potassium is 4.4, magnesium is 1.8, albumin is 24 and creatinine is 0.85, troponin is negative at 0.012. Chest x-ray shows moderate pulmonary interstitial fibrosis but no heart failure, known pneumonia. No pleural effusion. He is denying any chest pain. He denies any sputum changes or fevers. He states that he is feeling much better after the steroids and DuoNeb treatment. This is likely a COPD exacerbation worsened by the heat and humidity. He feels he is ready to go home and follow-up with his own primary care doctor. Case discussed with Dr. Carter who is agre eable to discharging patient. - Lab Data Result diagrams: 08/30/20 21:04 08/30/20 21:04 Lab Results 08/30/20 08/30/20 08/30/20 Range/Units 21:04 21:04 21:04 WBC 9.9 (3.8-10.6) k/uL RBC 4.45 (4.30-5.90) m/uL Hgb 14.6 (13.0-17.5) gm/dL Hct 42.1 (39.0-53.0) % MCV 94.6 (80.0-100.0) fL MCH 32.8 (25.0-35.0) pg MCHC 34.6 (31.0-37.0) g/dL RDW 12.6 (11.5-15.5) % Plt Count 230 (150-450) k/uL MPV 7.5 Neutrophils % 70 % Lymphocytes % 16 % Monocytes % 8 % Eosinophils % 4 % Basophils % 1 % Neutrophils # 6.9 (1.3-7.7) k/uL Lymphocytes # 1.6 (1.0-4.8) k/uL Monocytes # 0.8 (0-1.0) k/uL Eosinophils # 0.4 (0-0.7) k/uL Basophils # 0.1 (0-0.2) k/uL PT 10.7 (9.0-12.0) sec INR 1.0 (<1.2) APTT 25.8 (22.0-30.0) sec Sodium 137 (137-145) mmol/L Potassium 4.4 (3.5-5.1) mmol/L Chloride 106 (98-107) mmol/L Carbon Dioxide 22 (22-30) mmol/L Anion Gap 9 mmol/L BUN 24 H (9-20) mg/dL Creatinine 0.85 (0.66-1.25) mg/dL Est GFR (CKD-EPI)AfAm >90 (>60 ml/min/1.73 sqM) Est GFR (CKD-EPI)NonAf 85 (>60 ml/min/1.73 sqM) Glucose 95 (74-99) mg/dL Calcium 10.2 (8.4-10.2) mg/dL Magnesium 1.8 (1.6-2.3) mg/dL Total Bilirubin 0.4 (0.2-1.3) mg/dL AST 23 (17-59) U/L ALT 12 (4-49) U/L Alkaline Phosphatase 75 (38-126) U/L Troponin I (0.000-0.034) ng/mL Total Protein 6.9 (6.3-8.2) g/dL Albumin 4.2 (3.5-5.0) g/dL 08/30/20 Range/Units 21:04 WBC (3.8-10.6) k/uL RBC (4.30-5.90) m/uL Hgb (13.0-17.5) gm/dL Hct (39.0-53.0) % MCV (80.0-100.0) fL MCH (25.0-35.0) pg MCHC (31.0-37.0) g/dL RDW (11.5-15.5) % Plt Count (150-450) k/uL MPV Neutrophils % % Lymphocytes % % Monocytes % % Eosinophils % % Basophils % % Neutrophils # (1.3-7.7) k/uL Lymphocytes # (1.0-4.8) k/uL Monocytes # (0-1.0) k/uL Eosinophils # (0-0.7) k/uL Basophils # (0-0.2) k/uL PT (9.0-12.0) sec INR (<1.2) APTT (22.0-30.0) sec Sodium (137-145) mmol/L Potassium (3.5-5.1) mmol/L Chloride (98-107) mmol/L Carbon Dioxide (22-30) mmol/L Anion Gap mmol/L BUN (9-20) mg/dL Creatinine (0.66-1.25) mg/dL Est GFR (CKD-EPI)AfAm (>60 ml/min/1.73 sqM) Est GFR (CKD-EPI)NonAf (>60 ml/min/1.73 sqM) Glucose (74-99) mg/dL Calcium (8.4-10.2) mg/dL Magnesium (1.6-2.3) mg/dL Total Bilirubin (0.2-1.3) mg/dL AST (17-59) U/L ALT (4-49) U/L Alkaline Phosphatase (38-126) U/L Troponin I <0.012 (0.000-0.034) ng/mL Total Protein (6.3-8.2) g/dL Albumin (3.5-5.0) g/dL - EKG Data EKG shows normal: sinus rhythm, intervals (Ventricular rate 83, TN interval 0.17, QRS of 0.82, QTC of 0.451) Disposition Clinical Impression: COPD exacerbation Disposition: HOME SELF-CARE Condition: Good Instructions (If sedation given, give patient instructions): COPD (Chronic Obstructive Pulmonary Disease) (ED) Additional Instructions: Return to emergency room if worsening shortness of breath, chest pain or fevers. See Dr. Lambert this week. Use the prednisone as prescribed for the next 5 days do not take Motrin while taking prednisone. Prescriptions: predniSONE 50 mg PO DAILY #5 tab Is patient prescribed a controlled substance at d/c from ED?: No Referrals: Fernando Lambert Jr, [Primary Care Provider] - 1-2 days Time of Disposition: 22:40
[2020-08-30 21:12] LABS: Basophils # (A) 0.1 k/uL (0-0.2); Basophils % (A) 1 %; Eosinophils # (A) 0.4 k/uL (0-0.7); Eosinophils % (A) 4 %; HCT 42.1 % (39.0-53.0); HGB 14.6 gm/dL (13.0-17.5); Lymphocytes # (A) 1.6 k/uL (1.0-4.8); Lymphocytes % (A) 16 %; MCH 32.8 pg (25.0-35.0); MCHC 34.6 g/dL (31.0-37.0); MCV 94.6 fL (80.0-100.0); Mean Platelet Volume 7.5; Monocytes # (A) 0.8 k/uL (0-1.0); Monocytes % (A) 8 %; Neutrophils # (A) 6.9 k/uL (1.3-7.7); Neutrophils % (A) 70 %; Platelet Count 230 k/uL (150-450); RBC 4.45 m/uL (4.30-5.90); RDW 12.6 % (11.5-15.5); WBC 9.9 k/uL (3.8-10.6)
[2020-08-30 21:13] VITALS: RESP 18
[2020-08-30 21:23] LABS: ALT 12 U/L (4-49); AST 23 U/L (17-59); African American GFR (CKD) >90 (>60 ml/min/1.73 sqM); Albumin 4.2 g/dL (3.5-5.0); Alkaline Phosphatase 75 U/L (38-126); Anion Gap 9 mmol/L; Blood Urea Nitrogen 24 mg/dL (9-20); Calcium 10.2 mg/dL (8.4-10.2); Carbon Dioxide 22 mmol/L (22-30); Chloride 106 mmol/L (98-107); Glucose 95 mg/dL (74-99); Magnesium 1.8 mg/dL (1.6-2.3); Non-African American GFR(CKD) 85 (>60 ml/min/1.73 sqM); Potassium 4.4 mmol/L (3.5-5.1); Sodium 137 mmol/L (137-145); Total Bilirubin 0.4 mg/dL (0.2-1.3); Total Protein 6.9 g/dL (6.3-8.2)
[2020-08-30 21:34] LABS: Partial Thromboplastin Time 25.8 sec (22.0-30.0); Prothrombin Time 10.7 sec (9.0-12.0)
--- NOTE | 2020-08-30 22:09 | XR ---
EXAMINATION TYPE: XR chest 2V DATE OF EXAM: 08/30/2020 COMPARISON: 06/27/2020 HISTORY: Short of breath TECHNIQUE: FINDINGS: There is coarse pulmonary interstitial density throughout the lungs. This is increased comp ared to last exam. Heart size is fairly normal. There is vertebroplasty in the thoracic and lumbar sp ine. There is mild compression deformities. There is no pleural effusion. IMPRESSION: Moderate pulmonary interstitial fibrosis. I do not suspect heart failure. No pleural flui d seen. Fibrotic changes appear slightly increased compared to old exam.
[2020-08-30 23:05] VITALS: BP 117/86; PULSE 78
== END 2020-08-30 22:54 | disposition home or self-care (01) ==
LOC: EC 20:14
DX: J44.1 Chronic obstructive pulmonary disease with (acute) exacerbation (principal); I48.0 Paroxysmal atrial fibrillation; F17.200 Nicotine dependence, unspecified, uncomplicated; Z79.01 Long term (current) use of anticoagulants; Z79.51 Long term (current) use of inhaled steroids; Z79.899 Other long term (current) drug therapy; Z79.52 Long term (current) use of systemic steroids
CPT/HCPCS: 36415; 94640; 93005; 80053; 83735; 84484; 85025; 85610; 85730; 71046; 96374; 99285; J2930

== ENCOUNTER 2020-09-09 17:36 | Emergency (ER) | payer MEDICARE ==
[2020-09-09] MEDS ORDERED: IPRATROPIUM 0.5 MG/2.5 ML NEBU INHALATION STA ×2 (17:49→19:17)
[2020-09-09] MEDS ORDERED: ALBUTEROL NEBULIZED 2.5 MG/3 ML INHALATION STA ×2 (17:49→19:17)
[2020-09-09] MEDS ORDERED: DEXAMETHASONE SOD PHOSPHATE 10 MG/ML 1 ML VIAL IV STA (17:49)
--- NOTE | 2020-09-09 17:51 | ED ---
General Adult HPI - General Chief complaint: Shortness of Breath Stated complaint: SOB Time Seen by Provider: 09/09/20 17:43 Source: patient Mode of arrival: wheelchair Limitations: no limitations - History of Present Illness Initial comments: Dictation was produced using [employer] dictation software. please excuse any grammatical, word or spelling errors. Chief Complaint: 75-year-old male presents with cough congestion shortness of br eath History of Present Illness: Any 5-year-old male with extensive history of COPD. Patient continues to smoke tobacco. He states that her last couple days developed cough, congestion or shortness of breath. Patient states he is wheezing. Denies any fever. No chest pain. The ROS documented in this emergency department record has been reviewed and confirmed by me. Those systems with pertinent positive or negative responses have been documented in the HPI. All other systems are other negative and/or noncontributory. PHYSICAL EXAM: General Impression: Alert and oriented x3, mildly dyspneic HEENT: Normocephalic atraumatic, extra-ocular movements intact, pupils equal and reactive to light bilaterally, mucous membranes moist. Cardiovascular: Heart regular rate and rhythm Chest: Able to complete full sentences, no retractions, no tachypnea, diffuse respiratory and expiratory wheezing Abdomen: abdomen soft, non-tender, non-distended, no organomegaly Musculoskeletal: Pulses present and equal in all extremities, no peripheral edema Motor: no focal deficits noted Neurological: CN II-XII grossly intact, no focal motor or sensory deficits noted Skin: Intact with no visualized rashes Psych: Normal affect and mood ED course: 75-year-old male presents with clinical presentation consistent with COPD exacerbation. Lavatory evaluation obtained. CBC, metabolic panel, for panel virus PCR is negative for influenza, RSV and coronavirus. Chest x-ray is nonacute. Patient reevaluated bedside after having given multiple breathing treatments and IV steroids and he is in stable medical condition. Clinical presentation consistent with COPD exacerbation. EKG interpretation: Ventricular rate 91, normal sinus rhythm, ID interval 160, QRS 82, QTc 450. No ID prolongation, no QTC prolongation, no ST or T-wave changes noted. Overall, this EKG is unremarkable - Related Data Home Medications Medication Instructions Recorded Confirmed Tamsulosin HCl [Flomax] 0.4 mg PO BID 03/24/18 06/25/20 Apixaban [Eliquis] 5 mg PO BID 09/14/18 06/25/20 Metoprolol Tartrate [Lopressor] 50 mg PO BID 02/04/19 06/25/20 Ergocalciferol [Vitamin D2 1,250 mcg PO TU 05/05/19 06/25/20 (DRISDOL)] Finasteride [Proscar] 5 mg PO DAILY 05/05/19 06/25/20 Alendronate Sodium [Fosamax] 70 mg PO GROVES 08/21/19 06/25/20 Ipratropium-Albuterol Nebulize 3 ml INHALATION RT-QID 02/27/20 06/25/20 [Duoneb 0.5 mg-3 mg/3 ml Soln] Albuterol Sulfate [Proair Hfa] 2 puff INHALATION RT-QID PRN 04/28/20 06/25/20 Budesonide/Formoterol Fumarate 2 puff INHALATION RT-BID 05/21/20 06/25/20 [Symbicort 160-4.5 Mcg Inhaler] Previous Rx's Medication Instructions Recorded Ascorbic Acid [Vitamin C] 250 mg PO DAILY tab 06/21/20 Colchicine [Colcrys] 0.6 mg PO DAILY #30 each 06/21/20 Famotidine [Pepcid] 20 mg PO BID #60 tablet 06/21/20 Zinc Sulfate [Orazinc] 220 mg PO DAILY #0 cap 06/21/20 Nicotine 14Mg/24Hr Patch [Habitrol] 1 patch TRANSDERM DAILY #30 patch 06/27/20 predniSONE 10 mg PO DIRECTED #30 tab 06/27/20 methocarbamoL [Robaxin] 1,000 mg PO TID PRN #30 tab 07/01/20 predniSONE 50 mg PO DAILY #5 tab 08/30/20 Albuterol Sulfate [Proair Hfa] 1 - 2 puff INHALATION Q6HR PRN #1 09/09/20 inhaler Ipratropium-Albuterol Nebulize 3 ml INHALATION Q6H 6 Days #24 neb 09/09/20 [Duoneb 0.5 mg-3 mg/3 ml Soln] Allergies Allergy/AdvReac Type Severity Reaction Status Date / Time Iodinated Contrast Media Allergy Rash/Hives Verified 09/09/20 17:40 [Iodinated Contrast- Oral and IV Dye] latex Allergy Rash/Hives Verified 09/09/20 17:40 Review of Systems ROS Statement: Those systems with pertinent positive or pertinent negative responses have been documented in the HPI. ROS Other: All systems not noted in ROS Statement are negative. Past Medical History Past Medical History: COPD Additional Past Medical History / Comment(s): Paroxysmal Afib, bronchitis, pulmonary nodules/negative pet scan, BPH, constipation, vertigo, chronic low back pain/DDD. covid 06/22 History of Any Multi-Drug Resistant Organisms: None Reported Past Surgical History: Back Surgery Additional Past Surgical History / Comment(s): Bilateral cataract removals-lens implants, colonoscopy, multiple kyphoplasties. Past Anesthesia/Blood Transfusion Reactions: No Reported Reaction Additional Past Anesthesia/Blood Transfusion Reaction / Comment(s): Has never received any blood transfusions. Past Psychological History: No Psychological Hx Reported Smoking Status: Current every day smoker Past Alcohol Use History: None Reported Past Drug Use History: None Reported - Past Family History Mother Family Medical History: AFIB, Dementia Father Family Medical History: Myocardial Infarction ([place]) Additional Family Medical History / Comment(s): in his 70's [place] General Exam Limitations: no limitations Course Vital Signs 09/09/20 09/09/20 09/09/20 17:38 18:02 18:30 Temperature 98.3 F Pulse Rate 75 89 Respiratory 28 H 18 Rate Blood Pressure 124/70 O2 Sat by Pulse 93 L Oximetry 09/09/20 18:59 Temperature Pulse Rate 111 H Respiratory Rate Blood Pressure O2 Sat by Pulse Oximetry Medical Decision Making - Lab Data Result diagrams: 09/09/20 17:58 09/09/20 17:58 Lab Results 09/09/20 09/09/20 09/09/20 Range/Units 17:58 17:58 17:58 WBC 8.5 (3.8-10.6) k/uL RBC 4.35 (4.30-5.90) m/uL Hgb 14.5 (13.0-17.5) gm/dL Hct 41.2 (39.0-53.0) % MCV 94.8 (80.0-100.0) fL MCH 33.5 (25.0-35.0) pg MCHC 35.3 (31.0-37.0) g/dL RDW 12.7 (11.5-15.5) % Plt Count 223 (150-450) k/uL MPV 7.2 Neutrophils % 69 % Lymphocytes % 17 % Monocytes % 8 % Eosinophils % 4 % Basophils % 1 % Neutrophils # 5.9 (1.3-7.7) k/uL Lymphocytes # 1.4 (1.0-4.8) k/uL Monocytes # 0.7 (0-1.0) k/uL Eosinophils # 0.4 (0-0.7) k/uL Basophils # 0.0 (0-0.2) k/uL Sodium 138 (137-145) mmol/L Potassium 4.1 (3.5-5.1) mmol/L Chloride 106 (98-107) mmol/L Carbon Dioxide 24 (22-30) mmol/L Anion Gap 8 mmol/L BUN 23 H (9-20) mg/dL Creatinine 0.75 (0.66-1.25) mg/dL Est GFR (CKD-EPI)AfAm >90 (>60 ml/min/1.73 sqM) Est GFR (CKD-EPI)NonAf 90 (>60 ml/min/1.73 sqM) Glucose 122 H (74-99) mg/dL Calcium 9.4 (8.4-10.2) mg/dL Influenza Type A (PCR) Not Detected (Not Detectd) Influenza Type B (PCR) Not Detected (Not Detectd) RSV (PCR) Not Detected (Not Detectd) SARS-CoV-2 (PCR) Not Detected (Not Detectd) Disposition Clinical Impression: COPD exacerbation Disposition: HOME SELF-CARE Condition: Good Instructions (If sedation given, give patient instructions): COPD (Chronic Obstructive Pulmonary Disease) (ED) Prescriptions: Ipratropium-Albuterol Nebulize [Duoneb 0.5 mg-3 mg/3 ml Soln] 3 ml INHALATION Q6H 6 Days #24 neb Albuterol Sulfate [Proair Hfa] 1 - 2 puff INHALATION Q6HR PRN #1 inhaler PRN Reason: Dyspnea Is patient prescribed a controlled substance at d/c from ED?: No Referrals: Fernando Lambert Jr, DO [Primary Care Provider] - 1-2 days
[2020-09-09 18:06] LABS: Basophils % (A) 1 %; Eosinophils # (A) 0.4 k/uL (0-0.7); Eosinophils % (A) 4 %; HCT 41.2 % (39.0-53.0); HGB 14.5 gm/dL (13.0-17.5); Lymphocytes # (A) 1.4 k/uL (1.0-4.8); Lymphocytes % (A) 17 %; MCH 33.5 pg (25.0-35.0); MCHC 35.3 g/dL (31.0-37.0); MCV 94.8 fL (80.0-100.0); Mean Platelet Volume 7.2; Monocytes # (A) 0.7 k/uL (0-1.0); Monocytes % (A) 8 %; Neutrophils # (A) 5.9 k/uL (1.3-7.7); Neutrophils % (A) 69 %; Platelet Count 223 k/uL (150-450); RBC 4.35 m/uL (4.30-5.90); RDW 12.7 % (11.5-15.5); WBC 8.5 k/uL (3.8-10.6)
[2020-09-09 18:15] LABS: African American GFR (CKD) >90 (>60 ml/min/1.73 sqM); Anion Gap 8 mmol/L; Blood Urea Nitrogen 23 mg/dL (9-20); Calcium 9.4 mg/dL (8.4-10.2); Carbon Dioxide 24 mmol/L (22-30); Chloride 106 mmol/L (98-107); Glucose 122 mg/dL (74-99); Non-African American GFR(CKD) 90 (>60 ml/min/1.73 sqM); Potassium 4.1 mmol/L (3.5-5.1); Sodium 138 mmol/L (137-145)
--- NOTE | 2020-09-09 18:39 | XR ---
EXAMINATION TYPE: XR chest 1V portable DATE OF EXAM: 09/09/2020 COMPARISON: 08/30/2020 HISTORY: Wheezing TECHNIQUE: FINDINGS: There is some coarsening of the interstitial pulmonary markings. Heart size is normal. Ther e are chest leads. There are no hilar masses. Costophrenic angles are clear. IMPRESSION: Pulmonary interstitial fibrosis similar to old exam. No heart failure.
[2020-09-09 19:15] VITALS: RESP 18
[2020-09-09 19:54] VITALS: BP 125/78; PULSE 113; TEMP 97.8
== END 2020-09-09 19:45 | disposition home or self-care (01) ==
LOC: EC 17:36
DX: J44.1 Chronic obstructive pulmonary disease with (acute) exacerbation (principal); I48.0 Paroxysmal atrial fibrillation; N40.0 Benign prostatic hyperplasia without lower urinary tract symptoms; F17.200 Nicotine dependence, unspecified, uncomplicated; Z86.16 Personal history of COVID-19; Z20.822 Contact with and (suspected) exposure to COVID-19; Z79.01 Long term (current) use of anticoagulants; Z79.51 Long term (current) use of inhaled steroids; Z79.52 Long term (current) use of systemic steroids; Z79.899 Other long term (current) drug therapy; Z88.8 Allergy status to other drugs, medicaments and biological substances; Z91.040 Latex allergy status
CPT/HCPCS: 36415; 94644; 93005; 80048; 85025; 87636; 71045; 99285; 96374; J1100

== ENCOUNTER 2020-09-12 18:36 | Emergency (ER) | payer MEDICARE ==
[2020-09-12 18:41] VITALS: BP 116/78; RESP 22; TEMP 97.7
[2020-09-12] MEDS ORDERED: methylPREDNISolone SOD SUCCI 125 MG/2 ML VIAL IV STA (19:09)
[2020-09-12] MEDS ORDERED: IPRATROPIUM-ALBUTEROL 3 ML NEB INHALATION STA (19:09)
--- NOTE | 2020-09-12 19:21 | ED ---
SOB HPI - General Chief Complaint: Shortness of Breath Stated Complaint: sob Time Seen by Provider: 09/12/20 18:56 Source: patient Mode of arrival: wheelchair Limitations: physical limitation - History of Present Illness Initial Comments: Patient is a 75-year-old male with history of COPD, presenting to the emergency Department with complaints of shortness of breath over the last few days. Patient was just in our ER about 3 days ago for similar complaint, he's been here multiple times for same complaint. He states he was prescribed more nebulizer treatments but the pharmacy will not give it to him as they states too early. He states he took his last breathing treatment earlier this afternoon and has been having increased shortness of breath throughout this afternoon. He denies any fevers or chills, no chest pains, just increased and wheezing. No nausea or vomiting, no abdominal pain. He denies any lower extremity swelling. He has no further complaints. Upon arrival to the ER his vitals are stable. - Related Data Home Medications Medication Instructions Recorded Confirmed Tamsulosin HCl [Flomax] 0.4 mg PO BID 03/24/18 06/25/20 Apixaban [Eliquis] 5 mg PO BID 09/14/18 06/25/20 Metoprolol Tartrate [Lopressor] 50 mg PO BID 02/04/19 06/25/20 Ergocalciferol [Vitamin D2 1,250 mcg PO TU 05/05/19 06/25/20 (DRISDOL)] Finasteride [Proscar] 5 mg PO DAILY 05/05/19 06/25/20 Alendronate Sodium [Fosamax] 70 mg PO GROVES 08/21/19 06/25/20 Ipratropium-Albuterol Nebulize 3 ml INHALATION RT-QID 02/27/20 06/25/20 [Duoneb 0.5 mg-3 mg/3 ml Soln] Albuterol Sulfate [Proair Hfa] 2 puff INHALATION RT-QID PRN 04/28/20 06/25/20 Budesonide/Formoterol Fumarate 2 puff INHALATION RT-BID 05/21/20 06/25/20 [Symbicort 160-4.5 Mcg Inhaler] Previous Rx's Medication Instructions Recorded Ascorbic Acid [Vitamin C] 250 mg PO DAILY tab 06/21/20 Colchicine [Colcrys] 0.6 mg PO DAILY #30 each 06/21/20 Famotidine [Pepcid] 20 mg PO BID #60 tablet 06/21/20 Zinc Sulfate [Orazinc] 220 mg PO DAILY #0 cap 06/21/20 Nicotine 14Mg/24Hr Patch [Habitrol] 1 patch TRANSDERM DAILY #30 patch 06/27/20 predniSONE 10 mg PO DIRECTED #30 tab 06/27/20 methocarbamoL [Robaxin] 1,000 mg PO TID PRN #30 tab 07/01/20 predniSONE 50 mg PO DAILY #5 tab 08/30/20 Albuterol Sulfate [Proair Hfa] 1 - 2 puff INHALATION Q6HR PRN #1 09/09/20 inhaler Ipratropium-Albuterol Nebulize 3 ml INHALATION Q4-6H PRN 6 Days 09/12/20 [Duoneb 0.5 mg-3 mg/3 ml Soln] #24 neb predniSONE 50 mg PO DAILY #5 tab 09/12/20 Allergies Allergy/AdvReac Type Severity Reaction Status Date / Time Iodinated Contrast Media Allergy Rash/Hives Verified 09/12/20 18:41 [Iodinated Contrast- Oral and IV Dye] latex Allergy Rash/Hives Verified 09/12/20 18:41 Review of Systems ROS Statement: Those systems with pertinent positive or pertinent negative responses have been documented in the HPI. ROS Other: All systems not noted in ROS Statement are negative. Past Medical History Past Medical History: COPD Additional Past Medical History / Comment(s): Paroxysmal Afib, bronchitis, pulmonary nodules/negative pet scan, BPH, constipation, vertigo, chronic low back pain/DDD. covid 06/22 History of Any Multi-Drug Resistant Organisms: None Reported Past Surgical History: Back Surgery Additional Past Surgical History / Comment(s): Bilateral cataract removals-lens implants, colonoscopy, multiple kyphoplasties. Past Anesthesia/Blood Transfusion Reactions: No Reported Reaction Additional Past Anesthesia/Blood Transfusion Reaction / Comment(s): Has never received any blood transfusions. Past Psychological History: No Psychological Hx Reported Smoking Status: Current every day smoker Past Alcohol Use History: None Reported Past Drug Use History: None Reported - Past Family History Mother Family Medical History: AFIB, Dementia Father Family Medical History: Myocardial Infarction ([place]) Additional Family Medical History / Comment(s): in his 70's [place] General Exam - General Exam Comments Initial Comments: GENERAL: Patient is well-developed and well-nourished. Patient is nontoxic and in no acute distress. HEAD: Atraumatic, normocephalic. EYES: Pupils equal round and reactive to light, extraocular movements intact, sclera anicteric, conjunctiva are normal. Eyelids were unremarkable. ENT: TMs normal, nares patent, oropharynx clear without exudates. Moist mucous membranes. NECK: Normal range of motion, supple without lymphadenopathy or JVD. LUNGS: Unlabored respirations. Scattered wheezes and rhonchi throughout. HEART: Regular rate and rhythm without murmurs, rubs or gallops. ABDOMEN: Soft, nontender, normoactive bowel sounds. No guarding, no rebound. No masses appreciated. : Deferred MUSCULOSKELETAL: Normal extremities with adequate strength and normal range of motion, no pitting or edema. No clubbing or cyanosis. NEUROLOGICAL: Patient is alert and oriented x 3. Motor and sensory are also intact. Cranial nerves II through XII grossly intact. Symmetrical smile. Normal speech, normal gait. PSYCH: Normal mood, normal affect. SKIN: Warm, Dry, normal turgor, no rashes or lesions noted. Limitations: physical limitation Course Vital Signs 09/12/20 09/12/20 09/12/20 18:37 19:29 19:31 Temperature 97.7 F Pulse Rate 72 74 Respiratory 22 22 Rate Blood Pressure 116/78 O2 Sat by Pulse 97 Oximetry 09/12/20 19:47 Temperature Pulse Rate 74 Respiratory Rate Blood Pressure O2 Sat by Pulse Oximetry Medical Decision Making - Medical Decision Making Patient is a 75-year-old male with history of COPD, present shortness of breath increasing over the past few days. He was here 3 days ago, for same complaint, was given a prescription for nebulizer treatments over pharmacy will not fill them as it is too soon. He denies any fevers, no chest pain. His vitals are stable upon arrival. He does have scattered wheezes and rhonchi throughout. Chest x-ray shows pulmonary interstitial fibrosis without change, no heart failure. Patient was given breathing treatment with remarkable improvement in his symptoms. Patient also given 1 dose of IV steroids. Patient is stable for discharge. I will give him a new prescription for prn albuterol nebulizer treatments and a course of steroids. He is in agreement with this plan of care. Return parameters were discussed with him and he verbalized understanding. Case discussed with Dr. Chambers. - Lab Data Result diagrams: 09/12/20 19:09 09/12/20 19:09 Lab Results 09/12/20 09/12/20 09/12/20 Range/Units 19:09 19:09 19:09 WBC 9.0 (3.8-10.6) k/uL RBC 4.74 (4.30-5.90) m/uL Hgb 14.9 (13.0-17.5) gm/dL Hct 46.2 (39.0-53.0) % MCV 97.3 (80.0-100.0) fL MCH 31.4 (25.0-35.0) pg MCHC 32.3 (31.0-37.0) g/dL RDW 13.2 (11.5-15.5) % Plt Count 236 (150-450) k/uL MPV 7.1 Neutrophils % 65 % Lymphocytes % 22 % Monocytes % 8 % Eosinophils % 3 % Basophils % 1 % Neutrophils # 5.8 (1.3-7.7) k/uL Lymphocytes # 1.9 (1.0-4.8) k/uL Monocytes # 0.7 (0-1.0) k/uL Eosinophils # 0.3 (0-0.7) k/uL Basophils # 0.1 (0-0.2) k/uL Sodium 136 L (137-145) mmol/L Potassium 4.5 (3.5-5.1) mmol/L Chloride 105 (98-107) mmol/L Carbon Dioxide 24 (22-30) mmol/L Anion Gap 7 mmol/L BUN 24 H (9-20) mg/dL Creatinine 0.96 (0.66-1.25) mg/dL Est GFR (CKD-EPI)AfAm 90 (>60 ml/min/1.73 sqM) Est GFR (CKD-EPI)NonAf 78 (>60 ml/min/1.73 sqM) Glucose 88 (74-99) mg/dL Plasma Lactic Acid Santi 0.8 (0.7-2.0) mmol/L Calcium 9.5 (8.4-10.2) mg/dL Magnesium 2.2 (1.6-2.3) mg/dL Total Bilirubin 0.3 (0.2-1.3) mg/dL AST 20 (17-59) U/L ALT 18 (4-49) U/L Alkaline Phosphatase 72 (38-126) U/L Total Protein 6.5 (6.3-8.2) g/dL Albumin 3.9 (3.5-5.0) g/dL - EKG Data EKG Comments: Normal sinus rhythm, normal ECG, similar to previous EKG on 09/09/2020. No acute ST segment elevations. Ventricular rate 72, MD interval 180, QT 394. Disposition Clinical Impression: COPD exacerbation Disposition: HOME SELF-CARE Condition: Stable Instructions (If sedation given, give patient instructions): COPD (Chronic Obstructive Pulmonary Disease) (ED) Additional Instructions: Please return to the Emergency Department if symptoms worsen or any other concerns. Continue with your nebulizer treatments as prescribed as well as urine inhaler. Start steroids tomorrow. Follow up with your primary care physician. Prescriptions: Ipratropium-Albuterol Nebulize [Duoneb 0.5 mg-3 mg/3 ml Soln] 3 ml INHALATION Q4-6H PRN 6 Days #24 neb PRN Reason: Shortness Of Breath predniSONE 50 mg PO DAILY #5 tab Is patient prescribed a controlled substance at d/c from ED?: No Referrals: Fernando Lambert Jr, DO [Primary Care Provider] - 1-2 days Time of Disposition: 20:55
[2020-09-12 19:33] VITALS: PULSE 74
[2020-09-12 19:33] LABS: Basophils # (A) 0.1 k/uL (0-0.2); Basophils % (A) 1 %; Eosinophils # (A) 0.3 k/uL (0-0.7); Eosinophils % (A) 3 %; HCT 46.2 % (39.0-53.0); HGB 14.9 gm/dL (13.0-17.5); Lymphocytes # (A) 1.9 k/uL (1.0-4.8); Lymphocytes % (A) 22 %; MCH 31.4 pg (25.0-35.0); MCHC 32.3 g/dL (31.0-37.0); MCV 97.3 fL (80.0-100.0); Mean Platelet Volume 7.1; Monocytes # (A) 0.7 k/uL (0-1.0); Monocytes % (A) 8 %; Neutrophils # (A) 5.8 k/uL (1.3-7.7); Neutrophils % (A) 65 %; Platelet Count 236 k/uL (150-450); RBC 4.74 m/uL (4.30-5.90); RDW 13.2 % (11.5-15.5)
[2020-09-12 19:50] LABS: Albumin 3.9 g/dL (3.5-5.0); Calcium 9.5 mg/dL (8.4-10.2); Magnesium 2.2 mg/dL (1.6-2.3); Potassium 4.5 mmol/L (3.5-5.1); Total Bilirubin 0.3 mg/dL (0.2-1.3); Total Protein 6.5 g/dL (6.3-8.2)
--- NOTE | 2020-09-12 20:23 | XR ---
EXAMINATION TYPE: XR chest 2V DATE OF EXAM: 09/12/2020 COMPARISON: 09/09/2020 HISTORY: Short of breath TECHNIQUE: 2 views FINDINGS: There is coarse interstitial density in the lungs. There is no pleural effusion. Heart size is normal. There is multilevel thoracic and lumbar vertebroplasty. IMPRESSION: Pulmonary interstitial fibrosis without change. No heart failure.
== END 2020-09-12 21:05 | disposition home or self-care (01) ==
LOC: EC 18:36
DX: J44.1 Chronic obstructive pulmonary disease with (acute) exacerbation (principal); I48.0 Paroxysmal atrial fibrillation; F17.200 Nicotine dependence, unspecified, uncomplicated; Z86.16 Personal history of COVID-19; Z79.51 Long term (current) use of inhaled steroids; Z79.01 Long term (current) use of anticoagulants
CPT/HCPCS: 36415; 94640; 93005; 80053; 83605; 83735; 85025; 71046; 99285; 96374; J2930

== ENCOUNTER 2020-09-23 20:15 | Emergency (ER) | payer MEDICARE ==
[2020-09-23 20:51] VITALS: TEMP 97.4
[2020-09-23] MEDS ORDERED: predniSONE 20 MG TAB PO STA (21:10)
[2020-09-23] MEDS ORDERED: ALBUTEROL NEBULIZED 2.5 MG/3 ML INHALATION STA ×2 (21:13→22:43)
[2020-09-23] MEDS ORDERED: IPRATROPIUM-ALBUTEROL 3 ML NEB INHALATION STA (21:13)
--- NOTE | 2020-09-23 22:26 | XR ---
EXAMINATION TYPE: XR chest 2V DATE OF EXAM: 09/23/2020 COMPARISON: 09/12/2020 HISTORY: Short of breath TECHNIQUE: 2 views FINDINGS: Heart is normal. There is coarsening of interstitial markings in the lungs. There is multil evel thoracic and lumbar vertebroplasty. There is no pleural effusion. There are no hilar masses. IMPRESSION: Pulmonary interstitial fibrosis without change compared to old exam. No heart failure.
[2020-09-23 23:48] VITALS: BP 110/67; PULSE 77; RESP 18
--- NOTE | 2020-11-02 14:47 | ED ---
SOB HPI - General Chief Complaint: Shortness of Breath Stated Complaint: SOB Time Seen by Provider: 09/23/20 20:57 Source: patient, family Mode of arrival: wheelchair Limitations: no limitations - History of Present Illness Initial Comments: 's patient is a 75-year-old man who presents to be evaluated for worsening of his underlying pulmonary conditions. Patient has history of COPD and possibly some pulmonary fibrosis. He states that it started flaring up early this morning and that he hasn't really gotten any better with his home treatment. Patient states that the heat and humidity may be contributing as well. Denies fever. No chest pain. No sputum production. No leg pain or swelling. MD Complaint: shortness of breath, cough Onset/Timin -: hour(s) Severity: moderate Severity scale (1-10): 0 Consistency: constant Improves With: nothing Worsens With: nothing Known History Of: COPD, other (Pulmonary fibrosis) Treatments Prior to Arrival: bronchodilator - Related Data Home Oxygen Therapy: No Home Medications Medication Instructions Recorded Confirmed Tamsulosin HCl [Flomax] 0.4 mg PO BID 03/24/18 10/29/20 Apixaban [Eliquis] 5 mg PO BID 09/14/18 10/29/20 Metoprolol Tartrate [Lopressor] 50 mg PO BID 02/04/19 10/29/20 Ergocalciferol [Vitamin D2 1,250 mcg PO GROVES 05/05/19 10/29/20 (DRISDOL)] Finasteride [Proscar] 5 mg PO DAILY 05/05/19 10/29/20 Alendronate Sodium [Fosamax] 70 mg PO GROVES 08/21/19 10/29/20 Budesonide/Formoterol Fumarate 2 puff INHALATION RT-BID 05/21/20 10/29/20 [Symbicort 160-4.5 Mcg Inhaler] Acetaminophen Tab [Tylenol Tab] 500 mg PO Q6H PRN 09/23/20 10/29/20 Ipratropium-Albuterol Nebulize 3 ml INHALATION RT-Q4H PRN 09/23/20 10/29/20 [Duoneb 0.5 mg-3 mg/3 ml Soln] Umeclidinium [place] [Incruse 1 puff INHALATION RT-DAILY 09/23/20 10/29/20 Ellipta] polyethylene glycoL 3350 [Miralax] 17 gm PO DAILY 09/23/20 10/29/20 Albuterol Sulfate [Proair Hfa] 1 - 2 puff INHALATION RT-QID PRN 10/12/20 10/29/20 Previous Rx's Medication Instructions Recorded predniSONE [Deltasone] 20 mg PO DIRECTED #7 tab 10/30/20 Allergies Allergy/AdvReac Type Severity Reaction Status Date / Time Iodinated Contrast Media Allergy Rash/Hives Verified 10/29/20 09:02 [Iodinated Contrast- Oral and IV Dye] latex Allergy Rash/Hives Verified 10/29/20 09:02 Review of Systems ROS Statement: Those systems with pertinent positive or pertinent negative responses have been documented in the HPI. ROS Other: All systems not noted in ROS Statement are negative. Constitutional: Denies: fever, chills ENT: Denies: congestion Respiratory: Reports: as per HPI, cough, dyspnea, wheezes. Denies: hemoptysis Cardiovascular: Reports: dyspnea on exertion. Denies: chest pain, palpitations, orthopnea, edema, syncope Gastrointestinal: Denies: abdominal pain, vomiting, diarrhea, melena, hematochezia Genitourinary: Denies: dysuria Musculoskeletal: Denies: back pain Skin: Denies: rash Neurological: Denies: headache, weakness Past Medical History Past Medical History: COPD Additional Past Medical History / Comment(s): Paroxysmal Afib, bronchitis, pulmonary nodules/negative pet scan, BPH, constipation, vertigo, chronic low back pain/DDD. covid 06/22 History of Any Multi-Drug Resistant Organisms: None Reported Past Surgical History: Back Surgery Additional Past Surgical History / Comment(s): Bilateral cataract removals-lens implants, colonoscopy, multiple kyphoplasties. Past Anesthesia/Blood Transfusion Reactions: No Reported Reaction Additional Past Anesthesia/Blood Transfusion Reaction / Comment(s): Has never received any blood transfusions. Past Psychological History: No Psychological Hx Reported Smoking Status: Current every day smoker Past Alcohol Use History: None Reported Past Drug Use History: None Reported - Past Family History Mother Family Medical History: AFIB, Dementia Father Family Medical History: Myocardial Infarction ([place]) Additional Family Medical History / Comment(s): in his 70's [place] General Exam Limitations: no limitations General appearance: alert, in no apparent distress Head exam: Present: atraumatic, normocephalic Eye exam: Present: normal appearance. Absent: scleral icterus, conjunctival injection Neck exam: Present: normal inspection Respiratory exam: Present: respiratory distress (Mild tachypnea), wheezes, rales (Dry crackles at the bases). Absent: rhonchi, accessory muscle use, decreased breath sounds, prolonged expiratory Cardiovascular Exam: Present: regular rate, normal rhythm, normal heart sounds. Absent: systolic murmur, diastolic murmur, rubs, gallop GI/Abdominal exam: Present: soft. Absent: distended, tenderness, guarding, rebound, rigid, mass Extremities exam: Present: normal inspection, normal capillary refill. Absent: pedal edema, calf tenderness Back exam: Present: normal inspection. Absent: CVA tenderness (R), CVA tenderness (L) Neurological exam: Present: alert Skin exam: Present: warm, dry, intact, normal color. Absent: rash Course Vital Signs 09/23/20 09/23/20 09/23/20 20:49 21:42 22:03 Temperature 97.4 F L Pulse Rate 96 96 100 Respiratory 32 H Rate Blood Pressure 111/72 O2 Sat by Pulse 94 L Oximetry 09/23/20 09/23/20 09/23/20 23:12 23:21 23:46 Temperature Pulse Rate 89 86 77 Respiratory 18 Rate Blood Pressure 110/67 O2 Sat by Pulse 95 Oximetry Medical Decision Making - Medical Decision Making Patient 75-year-old man with underlying COPD here for exacerbation of same. He is feeling much better following medication and would like to go home. He has shown marked clinical improvement and this does appear to be acceptable. Return parameters discussed. Disposition Clinical Impression: COPD with acute exacerbation Disposition: HOME SELF-CARE Condition: Good Instructions (If sedation given, give patient instructions): Chronic Bronchitis (ED) Is patient prescribed a controlled substance at d/c from ED?: No Referrals: Fernando Lambert Jr, [Primary Care Provider] - 1-2 days
== END 2020-09-23 23:20 | disposition home or self-care (01) ==
LOC: EC 20:15
DX: J44.1 Chronic obstructive pulmonary disease with (acute) exacerbation (principal); I48.0 Paroxysmal atrial fibrillation; N40.0 Benign prostatic hyperplasia without lower urinary tract symptoms; F17.200 Nicotine dependence, unspecified, uncomplicated; Z79.01 Long term (current) use of anticoagulants; Z79.51 Long term (current) use of inhaled steroids; Z79.52 Long term (current) use of systemic steroids; Z79.899 Other long term (current) drug therapy; Z82.49 Family history of ischemic heart disease and other diseases of the circulatory system; Z88.8 Allergy status to other drugs, medicaments and biological substances
CPT/HCPCS: 94640 ×2; 71046; 99284; J7512

== ENCOUNTER 2020-09-26 19:52 | Emergency (ER) | payer MEDICARE ==
[2020-09-26] MEDS ORDERED: methylPREDNISolone SOD SUCCI 125 MG/2 ML VIAL IV STA (20:42)
[2020-09-26] MEDS ORDERED: IPRATROPIUM-ALBUTEROL 3 ML NEB INHALATION STA ×2 (20:42→22:20)
--- NOTE | 2020-09-26 20:50 | ED ---
General Adult HPI - General Chief complaint: Shortness of Breath Stated complaint: SOB Time Seen by Provider: 09/26/20 20:25 Source: patient, RN notes reviewed Mode of arrival: wheelchair Limitations: no limitations - History of Present Illness Initial comments: 75-year-old male with a past medical history of COPD, pulmonary nodules, A. fib, BPH presents to the emergency room for a chief complaint of shortness of breath. Patient reports that this started about 3 days ago. States he is having a COPD exacerbation. If he was seen here 3 days ago and felt much better after discharge. He has been taking his steroids and using his breathing treatments every 4 hours. States it has helped significantly until today when patient again became short of breath. Patient has no other complaints at this time including chest pain, abdominal pain, nausea or vomiting, headache, or visual changes. - Related Data Home Medications Medication Instructions Recorded Confirmed Tamsulosin HCl [Flomax] 0.4 mg PO BID 03/24/18 09/26/20 Apixaban [Eliquis] 5 mg PO BID 09/14/18 09/26/20 Metoprolol Tartrate [Lopressor] 50 mg PO BID 02/04/19 09/26/20 Ergocalciferol [Vitamin D2 1,250 mcg PO GROVES 05/05/19 09/26/20 (DRISDOL)] Finasteride [Proscar] 5 mg PO DAILY 05/05/19 09/26/20 Alendronate Sodium [Fosamax] 70 mg PO GROVES 08/21/19 09/26/20 Budesonide/Formoterol Fumarate 2 puff INHALATION RT-BID 05/21/20 09/26/20 [Symbicort 160-4.5 Mcg Inhaler] Acetaminophen Tab [Tylenol Tab] 500 mg PO Q6H PRN 09/23/20 09/26/20 Ipratropium-Albuterol Nebulize 3 ml INHALATION RT-Q4H PRN 09/23/20 09/26/20 [Duoneb 0.5 mg-3 mg/3 ml Soln] Umeclidinium [place] [Incruse 1 puff INHALATION RT-DAILY 09/23/20 09/26/20 Ellipta] polyethylene glycoL 3350 [Miralax] 17 gm PO DAILY 09/23/20 09/26/20 Previous Rx's Medication Instructions Recorded Albuterol Sulfate [Proair Hfa] 1 - 2 puff INHALATION Q6HR PRN #1 09/09/20 inhaler predniSONE [Deltasone] 20 mg PO BID #8 tab 09/23/20 Allergies Allergy/AdvReac Type Severity Reaction Status Date / Time Iodinated Contrast Media Allergy Rash/Hives Verified 09/26/20 23:31 [Iodinated Contrast- Oral and IV Dye] latex Allergy Rash/Hives Verified 09/26/20 23:31 Review of Systems ROS Statement: Those systems with pertinent positive or pertinent negative responses have been documented in the HPI. ROS Other: All systems not noted in ROS Statement are negative. Past Medical History Past Medical History: COPD Additional Past Medical History / Comment(s): Paroxysmal Afib, bronchitis, pulmonary nodules/negative pet scan, BPH, constipation, vertigo, chronic low back pain/DDD. covid 06/22 History of Any Multi-Drug Resistant Organisms: None Reported Past Surgical History: Back Surgery Additional Past Surgical History / Comment(s): Bilateral cataract removals-lens implants, colonoscopy, multiple kyphoplasties. Past Anesthesia/Blood Transfusion Reactions: No Reported Reaction Additional Past Anesthesia/Blood Transfusion Reaction / Comment(s): Has never received any blood transfusions. Past Psychological History: No Psychological Hx Reported Smoking Status: Current every day smoker Past Alcohol Use History: None Reported Past Drug Use History: None Reported - Past Family History Mother Family Medical History: AFIB, Dementia Father Family Medical History: Myocardial Infarction ([place]) Additional Family Medical History / Comment(s): in his 70's [place] General Exam Limitations: no limitations General appearance: alert, in no apparent distress Head exam: Present: atraumatic, normocephalic, normal inspection Eye exam: Present: normal appearance, PERRL, EOMI. Absent: scleral icterus, conjunctival injection, periorbital swelling ENT exam: Present: normal exam Neck exam: Present: normal inspection, full ROM. Absent: tenderness Respiratory exam: Present: wheezes. Absent: respiratory distress Cardiovascular Exam: Present: regular rate, normal rhythm, normal heart sounds GI/Abdominal exam: Present: soft, normal bowel sounds. Absent: distended, tenderness, guarding, rebound, rigid Course Vital Signs 09/26/20 09/26/20 09/26/20 20:01 21:21 21:42 Temperature 98.1 F Pulse Rate 89 92 94 Respiratory 22 Rate Blood Pressure 127/74 O2 Sat by Pulse 94 L Oximetry 09/26/20 09/26/20 09/26/20 22:48 23:01 23:04 Temperature Pulse Rate 88 89 84 Respiratory 16 Rate Blood Pressure 106/66 O2 Sat by Pulse 98 Oximetry 09/26/20 23:27 Temperature Pulse Rate Respiratory Rate Blood Pressure O2 Sat by Pulse 93 L Oximetry EKG Findings - EKG Comments: EKG Findings:: Normal sinus rhythm, ventricular rate 85, ND interval 170, QTC 418 Medical Decision Making - Medical Decision Making Vitals are stable. Patient is initially wheezy. No respiratory distress. CBC does show mild cytosis. BUN is slightly elevated on CMP, patient orally rehydrating. EKG is nonischemic. Tech reports she was not able to get a better EKG after several attempts. Chest x-ray does reveal patient's known pulmonary interstitial fibrosis. No change compared to old exam. Patient was given breathing treatments and steroids. I did offer admission as this is his second visit for this in the past few days. However patient feels much better after breathing treatments and prefers discharge home. Also discussed this with patient's daughter who is agreeable. Patient is told to return here for any worsening symptoms and otherwise following up with primary care. - Lab Data Result diagrams: 09/26/20 20:58 09/26/20 20:58 Lab Results 09/26/20 09/26/20 09/26/20 Range/Units 20:58 20:58 22:50 WBC 12.8 H (3.8-10.6) k/uL RBC 4.67 (4.30-5.90) m/uL Hgb 15.4 (13.0-17.5) gm/dL Hct 45.1 (39.0-53.0) % MCV 96.5 (80.0-100.0) fL MCH 33.0 (25.0-35.0) pg MCHC 34.2 (31.0-37.0) g/dL RDW 12.6 (11.5-15.5) % Plt Count 251 (150-450) k/uL MPV 7.4 Neutrophils % 72 % Lymphocytes % 16 % Monocytes % 7 % Eosinophils % 3 % Basophils % 1 % Neutrophils # 9.2 H (1.3-7.7) k/uL Lymphocytes # 2.0 (1.0-4.8) k/uL Monocytes # 0.8 (0-1.0) k/uL Eosinophils # 0.4 (0-0.7) k/uL Basophils # 0.1 (0-0.2) k/uL Sodium 137 (137-145) mmol/L Potassium 4.4 (3.5-5.1) mmol/L Chloride 106 (98-107) mmol/L Carbon Dioxide 23 (22-30) mmol/L Anion Gap 8 mmol/L BUN 26 H (9-20) mg/dL Creatinine 0.89 (0.66-1.25) mg/dL Est GFR (CKD-EPI)AfAm >90 (>60 ml/min/1.73 sqM) Est GFR (CKD-EPI)NonAf 84 (>60 ml/min/1.73 sqM) Glucose 90 (74-99) mg/dL Calcium 10.3 H (8.4-10.2) mg/dL Magnesium 2.2 (1.6-2.3) mg/dL Total Bilirubin 0.3 (0.2-1.3) mg/dL AST 26 (17-59) U/L ALT 24 (4-49) U/L Alkaline Phosphatase 86 (38-126) U/L Troponin I <0.012 (0.000-0.034) ng/mL Total Protein 6.8 (6.3-8.2) g/dL Albumin 4.1 (3.5-5.0) g/dL Disposition Clinical Impression: COPD exacerbation Disposition: HOME SELF-CARE Condition: Good Instructions (If sedation given, give patient instructions): COPD (Chronic Obstructive Pulmonary Disease) (ED) Additional Instructions: Please continue breathing treatments at home. Continue your steroid. Follow up with primary care. If you have worsening symptoms return to the emergency room. Is patient prescribed a controlled substance at d/c from ED?: No Referrals: Fernando Lambert Jr, DO [Primary Care Provider] - 1-2 days Time of Disposition: 23:53
[2020-09-26 21:22] LABS: Basophils # (A) 0.1 k/uL (0-0.2); Basophils % (A) 1 %; Eosinophils # (A) 0.4 k/uL (0-0.7); Eosinophils % (A) 3 %; HCT 45.1 % (39.0-53.0); HGB 15.4 gm/dL (13.0-17.5); Lymphocytes % (A) 16 %; MCHC 34.2 g/dL (31.0-37.0); MCV 96.5 fL (80.0-100.0); Mean Platelet Volume 7.4; Monocytes # (A) 0.8 k/uL (0-1.0); Monocytes % (A) 7 %; Neutrophils # (A) 9.2 k/uL (1.3-7.7); Neutrophils % (A) 72 %; Platelet Count 251 k/uL (150-450); RBC 4.67 m/uL (4.30-5.90); RDW 12.6 % (11.5-15.5); WBC 12.8 k/uL (3.8-10.6)
[2020-09-26 21:31] LABS: ALT 24 U/L (4-49); AST 26 U/L (17-59); African American GFR (CKD) >90 (>60 ml/min/1.73 sqM); Albumin 4.1 g/dL (3.5-5.0); Alkaline Phosphatase 86 U/L (38-126); Anion Gap 8 mmol/L; Blood Urea Nitrogen 26 mg/dL (9-20); Calcium 10.3 mg/dL (8.4-10.2); Carbon Dioxide 23 mmol/L (22-30); Chloride 106 mmol/L (98-107); Glucose 90 mg/dL (74-99); Magnesium 2.2 mg/dL (1.6-2.3); Non-African American GFR(CKD) 84 (>60 ml/min/1.73 sqM); Potassium 4.4 mmol/L (3.5-5.1); Sodium 137 mmol/L (137-145); Total Bilirubin 0.3 mg/dL (0.2-1.3); Total Protein 6.8 g/dL (6.3-8.2)
--- NOTE | 2020-09-26 21:59 | XR ---
EXAMINATION TYPE: XR chest 2V DATE OF EXAM: 09/26/2020 COMPARISON: 09/23/2020 HISTORY: Short of breath There is pulmonary interstitial density throughout the lungs. There is no heart failure. There is mul tilevel thoracic vertebroplasty. There are no hilar masses. I see no heart failure. IMPRESSION: Pulmonary interstitial fibrosis. No change compared to old exam.
[2020-09-27 00:15] VITALS: BP 110/77; PULSE 93; RESP 20; TEMP 97.8
== END 2020-09-27 00:10 | disposition home or self-care (01) ==
LOC: EC 19:52
DX: J44.1 Chronic obstructive pulmonary disease with (acute) exacerbation (principal); I48.0 Paroxysmal atrial fibrillation; N40.0 Benign prostatic hyperplasia without lower urinary tract symptoms; F17.200 Nicotine dependence, unspecified, uncomplicated; Z79.51 Long term (current) use of inhaled steroids; Z79.01 Long term (current) use of anticoagulants; Z79.52 Long term (current) use of systemic steroids; Z88.8 Allergy status to other drugs, medicaments and biological substances; Z91.040 Latex allergy status
CPT/HCPCS: 36415; 94640 ×2; 93005; 80053; 83735; 84484; 85025; 71046; 99285; 96374; J2930

== ENCOUNTER 2020-10-12 08:27 | Emergency (ER) | payer MEDICARE ==
[2020-10-12 08:30] VITALS: TEMP 97.9
[2020-10-12] MEDS ORDERED: SODIUM CHLORIDE 0.9% 1,000 ML IV STA (08:48)
[2020-10-12] MEDS ORDERED: SODIUM CHLORIDE 0.9% 500 ML 500 ML IV STA (08:48)
--- NOTE | 2020-10-12 08:50 | ED ---
Male Urogenital HPI - General Chief complaint: Urogenital Stated complaint: trouble urinating Time Seen by Provider: 10/12/20 08:34 Source: patient, RN notes reviewed Mode of arrival: ambulatory Limitations: no limitations - History of Present Illness Initial comments: This is a 75-year-old male with a history of COPD also history of urinary problems and states he has not urinated much in the past 2 days he also does admit he is up and drinking much fluid. No fevers chills nausea vomiting sweats no overt abdominal pain. No other complaints or modifying factors at this time MD Complaint: other - Related Data Home Medications Medication Instructions Recorded Confirmed Tamsulosin HCl [Flomax] 0.4 mg PO BID 03/24/18 10/12/20 Apixaban [Eliquis] 5 mg PO BID 09/14/18 10/12/20 Metoprolol Tartrate [Lopressor] 50 mg PO BID 02/04/19 10/12/20 Ergocalciferol [Vitamin D2 1,250 mcg PO GROVES 05/05/19 10/12/20 (DRISDOL)] Finasteride [Proscar] 5 mg PO DAILY 05/05/19 10/12/20 Alendronate Sodium [Fosamax] 70 mg PO GROVES 08/21/19 10/12/20 Budesonide/Formoterol Fumarate 2 puff INHALATION RT-BID 05/21/20 10/12/20 [Symbicort 160-4.5 Mcg Inhaler] Acetaminophen Tab [Tylenol Tab] 500 mg PO Q6H PRN 09/23/20 10/12/20 Ipratropium-Albuterol Nebulize 3 ml INHALATION RT-Q4H PRN 09/23/20 10/12/20 [Duoneb 0.5 mg-3 mg/3 ml Soln] Umeclidinium [place] [Incruse 1 puff INHALATION RT-DAILY 09/23/20 10/12/20 Ellipta] polyethylene glycoL 3350 [Miralax] 17 gm PO DAILY 09/23/20 10/12/20 Albuterol Sulfate [Proair Hfa] 1 - 2 puff INHALATION RT-QID PRN 10/12/20 10/12/20 Allergies Allergy/AdvReac Type Severity Reaction Status Date / Time Iodinated Contrast Media Allergy Rash/Hives Verified 10/12/20 11:18 [Iodinated Contrast- Oral and IV Dye] latex Allergy Rash/Hives Verified 10/12/20 11:18 Review of Systems ROS Statement: Those systems with pertinent positive or pertinent negative responses have been documented in the HPI. ROS Other: All systems not noted in ROS Statement are negative. Past Medical History Past Medical History: COPD Additional Past Medical History / Comment(s): Paroxysmal Afib, bronchitis, pulmonary nodules/negative pet scan, BPH, constipation, vertigo, chronic low vazquez k pain/DDD. covid 06/22 History of Any Multi-Drug Resistant Organisms: None Reported Past Surgical History: Back Surgery Additional Past Surgical History / Comment(s): Bilateral cataract removals-lens implants, colonoscopy, multiple kyphoplasties. Past Anesthesia/Blood Transfusion Reactions: No Reported Reaction Additional Past Anesthesia/Blood Transfusion Reaction / Comment(s): Has never received any blood transfusions. Past Psychological History: No Psychological Hx Reported Smoking Status: Current every day smoker Past Alcohol Use History: None Reported Past Drug Use History: None Reported - Past Family History Mother Family Medical History: AFIB, Dementia Father Family Medical History: Myocardial Infarction ([place]) Additional Family Medical History / Comment(s): in his 70's [place] General Exam - General Exam Comments Initial Comments: This is a well-developed well-nourished awake alert oriented 3 male Limitations: no limitations General appearance: alert, in no apparent distress Head exam: Present: atraumatic, normocephalic, normal inspection Eye exam: Present: normal appearance, PERRL, EOMI. Absent: scleral icterus, conjunctival injection, periorbital swelling ENT exam: Present: mucous membranes dry Neck exam: Present: normal inspection, full ROM. Absent: tenderness, meningismus, lymphadenopathy Respiratory exam: Present: normal lung sounds bilaterally. Absent: respiratory distress, wheezes, rales, rhonchi, stridor Cardiovascular Exam: Present: regular rate, normal rhythm, normal heart sounds. Absent: systolic murmur, diastolic murmur, rubs, gallop, clicks GI/Abdominal exam: Present: soft, normal bowel sounds. Absent: distended, tenderness, guarding, rebound, rigid, bruit, pulsatile mass Rectal exam: Present: deferred exam: Present: normal inspection Extremities exam: Present: normal inspection, full ROM, normal capillary refill. Absent: tenderness, pedal edema, joint swelling, calf tenderness Back exam: Present: normal inspection Neurological exam: Present: alert, oriented X3, CN II-XII intact Psychiatric exam: Present: normal affect, normal mood Skin exam: Present: warm, dry, intact, normal color. Absent: rash Course Vital Signs 10/12/20 10/12/20 10/12/20 08:27 10:02 11:21 Temperature 97.9 F Pulse Rate 76 75 75 Respiratory 18 16 16 Rate Blood Pressure 138/83 116/69 108/65 O2 Sat by Pulse 96 98 98 Oximetry Medical Decision Making - Medical Decision Making Reevaluation patient finds he is in no distress he did have 200 mL of urine output spontaneously. No complaints at this time he will be discharged I did recommend he increase his oral fluid intake. - Lab Data Result diagrams: 10/12/20 08:57 10/12/20 08:57 Lab Results 10/12/20 10/12/20 10/12/20 Range/Units 08:57 08:57 08:57 WBC 6.8 (3.8-10.6) k/uL RBC 4.61 (4.30-5.90) m/uL Hgb 15.4 (13.0-17.5) gm/dL Hct 44.5 (39.0-53.0) % MCV 96.6 (80.0-100.0) fL MCH 33.4 (25.0-35.0) pg MCHC 34.6 (31.0-37.0) g/dL RDW 13.3 (11.5-15.5) % Plt Count 199 (150-450) k/uL MPV 6.8 Neutrophils % 70 % Lymphocytes % 17 % Monocytes % 8 % Eosinophils % 2 % Basophils % 1 % Neutrophils # 4.7 (1.3-7.7) k/uL Lymphocytes # 1.1 (1.0-4.8) k/uL Monocytes # 0.5 (0-1.0) k/uL Eosinophils # 0.1 (0-0.7) k/uL Basophils # 0.0 (0-0.2) k/uL Sodium 134 L (137-145) mmol/L Potassium 4.2 (3.5-5.1) mmol/L Chloride 104 (98-107) mmol/L Carbon Dioxide 21 L (22-30) mmol/L Anion Gap 9 mmol/L BUN 23 H (9-20) mg/dL Creatinine 0.84 (0.66-1.25) mg/dL Est GFR (CKD-EPI)AfAm >90 (>60 ml/min/1.73 sqM) Est GFR (CKD-EPI)NonAf 86 (>60 ml/min/1.73 sqM) Glucose 113 H (74-99) mg/dL Calcium 9.3 (8.4-10.2) mg/dL Magnesium 2.3 (1.6-2.3) mg/dL Total Bilirubin 0.4 (0.2-1.3) mg/dL AST 22 (17-59) U/L ALT 23 (4-49) U/L Alkaline Phosphatase 75 (38-126) U/L Creatine Kinase 47 L (55-170) U/L Total Protein 6.5 (6.3-8.2) g/dL Albumin 3.8 (3.5-5.0) g/dL Urine Color Yellow Urine Appearance Clear (Clear) Urine pH 6.5 (5.0-8.0) Ur Specific [place] 1.016 (1.001-1.035) Urine Protein Negative (Negative) Urine Glucose (UA) Negative (Negative) Urine Ketones Negative (Negative) Urine Blood Negative (Negative) Urine Nitrite Negative (Negative) Urine Bilirubin Negative (Negative) Urine Urobilinogen <2.0 (<2.0) mg/dL Ur Leukocyte Esterase Negative (Negative) - Radiology Data Radiology results: report reviewed, image reviewed Disposition Clinical Impression: Urine abnormality, Dehydration Disposition: HOME SELF-CARE Condition: Good Instructions (If sedation given, give patient instructions): Dehydration (ED) Is patient prescribed a controlled substance at d/c from ED?: No Referrals: Fernando Lambert Jr, DO [Primary Care Provider] - 1-2 days
[2020-10-12 09:23] LABS: ALT 23 U/L (4-49); AST 22 U/L (17-59); African American GFR (CKD) >90 (>60 ml/min/1.73 sqM); Albumin 3.8 g/dL (3.5-5.0); Alkaline Phosphatase 75 U/L (38-126); Anion Gap 9 mmol/L; Blood Urea Nitrogen 23 mg/dL (9-20); Calcium 9.3 mg/dL (8.4-10.2); Carbon Dioxide 21 mmol/L (22-30); Chloride 104 mmol/L (98-107); Creatine Kinase 47 U/L (55-170); Glucose 113 mg/dL (74-99); Magnesium 2.3 mg/dL (1.6-2.3); Non-African American GFR(CKD) 86 (>60 ml/min/1.73 sqM); Potassium 4.2 mmol/L (3.5-5.1); Sodium 134 mmol/L (137-145); Total Bilirubin 0.4 mg/dL (0.2-1.3); Total Protein 6.5 g/dL (6.3-8.2)
[2020-10-12 09:24] LABS: Basophils % (A) 1 %; Eosinophils # (A) 0.1 k/uL (0-0.7); Eosinophils % (A) 2 %; HCT 44.5 % (39.0-53.0); HGB 15.4 gm/dL (13.0-17.5); Lymphocytes # (A) 1.1 k/uL (1.0-4.8); Lymphocytes % (A) 17 %; MCH 33.4 pg (25.0-35.0); MCHC 34.6 g/dL (31.0-37.0); MCV 96.6 fL (80.0-100.0); Mean Platelet Volume 6.8; Monocytes # (A) 0.5 k/uL (0-1.0); Monocytes % (A) 8 %; Neutrophils # (A) 4.7 k/uL (1.3-7.7); Neutrophils % (A) 70 %; Platelet Count 199 k/uL (150-450); RBC 4.61 m/uL (4.30-5.90); RDW 13.3 % (11.5-15.5); WBC 6.8 k/uL (3.8-10.6)
--- NOTE | 2020-10-12 09:48 | XR ---
EXAMINATION TYPE: XR KUB DATE OF EXAM: 10/12/2020 COMPARISON: NONE HISTORY: Unable to urinate TECHNIQUE: One view abdominal series FINDINGS: The osseous structures are intact. The bowel gas pattern is nonspecific. Coarsened interstitium michel elate for chronic interstitial lung disease. Multiple vertebroplasty with diffuse osteopenia and dege nerative changes of the spine. Arthropathy of the hips. IMPRESSION: 1. Nonspecific abdomen
[2020-10-12 11:49] LABS: Appearance,Urine Clear (Clear); Bilirubin,Urine Negative (Negative); Blood,Urine Negative (Negative); Color,Urine Yellow; Glucose,Urine (UA) Negative (Negative); Ketones,Urine Negative (Negative); Leukocyte Esterase,Urine Negative (Negative); Nitrite,Urine Negative (Negative); PH, Urine 6.5 (5.0-8.0); Protein,Urine Negative (Negative); Specific Gravity,Urine 1.016 (1.001-1.035); Urobilinogen,Urine <2.0 mg/dL (<2.0)
[2020-10-12 12:42] VITALS: BP 126/77; PULSE 85; RESP 18
== END 2020-10-12 12:40 | disposition home or self-care (01) ==
LOC: EC 08:27
DX: R82.90 Unspecified abnormal findings in urine (principal); E86.0 Dehydration; J44.9 Chronic obstructive pulmonary disease, unspecified; I48.0 Paroxysmal atrial fibrillation; F17.200 Nicotine dependence, unspecified, uncomplicated; Z91.040 Latex allergy status; Z91.041 Radiographic dye allergy status; Z79.01 Long term (current) use of anticoagulants
CPT/HCPCS: 36415; 51798; 74018; 80053; 81003; 82550; 83735; 85025; 96360; 99283

== ENCOUNTER 2020-10-29 08:10 | Observation (INO) | payer MEDICARE ==
[2020-10-29] MEDS ORDERED: methylPREDNISolone SOD SUCCI 125 MG/2 ML VIAL IV STA (08:30)
[2020-10-29] MEDS ORDERED: ALBUTEROL NEBULIZED 2.5 MG/3 ML INHALATION STA (08:30)
[2020-10-29] MEDS ORDERED: IPRATROPIUM 0.5 MG/2.5 ML NEBU INHALATION STA (08:30)
--- NOTE | 2020-10-29 08:30 | ED ---
General Adult HPI - General Chief complaint: Shortness of Breath Stated complaint: KEERTHI Time Seen by Provider: 10/29/20 08:10 Source: patient, RN notes reviewed, old records reviewed Mode of arrival: ambulatory Limitations: no limitations - History of Present Illness Initial comments: This is a 75-year-old male who presents emergency department with past medical history significant for COPD. Patient states he is here today because she's had difficulty breathing since 2 AM. Patient states he gets is quite often and he comes in usual gets a few treatments and steroids and feels better. Patient states he has no chest pain denies any fever chills or cough. Patient states earlier had little bit of a headache but it subsided at this point time. Mikhail young denies any numbness weakness. Patient denies abdominal pain patient has nausea vomiting or diarrhea. Patient denies any recent trauma. - Related Data Home Medications Medication Instructions Recorded Confirmed Tamsulosin HCl [Flomax] 0.4 mg PO BID 03/24/18 10/29/20 Apixaban [Eliquis] 5 mg PO BID 09/14/18 10/29/20 Metoprolol Tartrate [Lopressor] 50 mg PO BID 02/04/19 10/29/20 Ergocalciferol [Vitamin D2 1,250 mcg PO GROVES 05/05/19 10/29/20 (DRISDOL)] Finasteride [Proscar] 5 mg PO DAILY 05/05/19 10/29/20 Alendronate Sodium [Fosamax] 70 mg PO GROVES 08/21/19 10/29/20 Budesonide/Formoterol Fumarate 2 puff INHALATION RT-BID 05/21/20 10/29/20 [Symbicort 160-4.5 Mcg Inhaler] Acetaminophen Tab [Tylenol Tab] 500 mg PO Q6H PRN 09/23/20 10/29/20 Ipratropium-Albuterol Nebulize 3 ml INHALATION RT-Q4H PRN 09/23/20 10/29/20 [Duoneb 0.5 mg-3 mg/3 ml Soln] Umeclidinium [place] [Incruse 1 puff INHALATION RT-DAILY 09/23/20 10/29/20 Ellipta] polyethylene glycoL 3350 [Miralax] 17 gm PO DAILY 09/23/20 10/29/20 Albuterol Sulfate [Proair Hfa] 1 - 2 puff INHALATION RT-QID PRN 10/12/20 10/29/20 Allergies Allergy/AdvReac Type Severity Reaction Status Date / Time Iodinated Contrast Media Allergy Rash/Hives Verified 10/29/20 09:02 [Iodinated Contrast- Oral and IV Dye] latex Allergy Rash/Hives Verified 10/29/20 09:02 Review of Systems ROS Statement: Those systems with pertinent positive or pertinent negative responses have been documented in the HPI. ROS Other: All systems not noted in ROS Statement are negative. Past Medical History Past Medical History: COPD Additional Past Medical History / Comment(s): Paroxysmal Afib, bronchitis, pulmonary nodules/negative pet scan, BPH, constipation, vertigo, chronic low back pain/DDD. covid 06/22 History of Any Multi-Drug Resistant Organisms: None Reported Past Surgical History: Back Surgery Additional Past Surgical History / Comment(s): Bilateral cataract removals-lens implants, colonoscopy, multiple kyphoplasties. Past Anesthesia/Blood Transfusion Reactions: No Reported Reaction Additional Past Anesthesia/Blood Transfusion Reaction / Comment(s): Has never received any blood transfusions. Past Psychological History: No Psychological Hx Reported Smoking Status: Current every day smoker Past Alcohol Use History: None Reported Past Drug Use History: None Reported - Past Family History Mother Family Medical History: AFIB, Dementia Father Family Medical History: Myocardial Infarction ([place]) Additional Family Medical History / Comment(s): in his 70's [place] General Exam - General Exam Comments Initial Comments: GENERAL: Patient is well-developed and well-nourished. Patient is nontoxic and well- hydrated and is in mild distress. ENT: Neck is soft and supple. No significant lymphadenopathy is noted. Oropharynx is clear. Moist mucous membranes. Neck has full range of motion without eliciting any pain. EYES: The sclera were anicteric and conjunctiva were pink and moist. Extraocular movements were intact and pupils were equal round and reactive to light. Eyelids were unremarkable. PULMONARY: Patient has diffuse after wheezing. CARDIOVASCULAR: There is a regular rate and rhythm without any murmurs gallops or rubs. ABDOMEN: Soft and nontender with normal bowel sounds. SKIN: Skin is clear with no lesions or rashes and otherwise unremarkable. NEUROLOGIC: Patient is alert and oriented x3. Cranial nerves II through XII are grossly intact. Motor and sensory are also intact. Normal speech, volume and content. Symmetrical smile. MUSCULOSKELETAL: Normal extremities with adequate strength and full range of motion. No lower extremity swelling or edema. No calf tenderness. LYMPHATICS: No significant lymphadenopathy is noted PSYCHIATRIC: Normal psychiatric evaluation. Limitations: no limitations Course Vital Signs 10/29/20 10/29/20 10/29/20 08:12 08:14 08:53 Temperature 97.6 F Pulse Rate 86 77 Respiratory 20 18 Rate Blood Pressure 123/70 O2 Sat by Pulse 93 L Oximetry 10/29/20 10/29/20 09:14 09:17 Temperature Pulse Rate 86 78 Respiratory 20 Rate Blood Pressure 133/84 O2 Sat by Pulse 95 Oximetry Medical Decision Making - Medical Decision Making EKG shows normal sinus rhythm at 81 bpm [place] interval 266 QRS is 84 QT interval 374 QTC is 434. No ST segment elevation or depression Patient received multiple breathing treatments in the emergency department and steroids. I went back in. The patient he still continued to wheeze diffusely and he did not feel good enough to go home at this point time. I spoke with Dr. Lambert he agreed to admit the patient admitted the patient wrote admitting orders. Chest x-ray shows no acute abnormality. I continued steroids and breathing treatments on the floor. - Lab Data Result diagrams: 10/29/20 08:34 10/29/20 08:34 Lab Results 10/29/20 10/29/20 10/29/20 Range/Units 08:34 08:34 08:34 WBC 7.2 (3.8-10.6) k/uL RBC 4.37 (4.30-5.90) m/uL Hgb 14.4 (13.0-17.5) gm/dL Hct 41.6 (39.0-53.0) % MCV 95.2 (80.0-100.0) fL MCH 32.9 (25.0-35.0) pg MCHC 34.5 (31.0-37.0) g/dL RDW 13.2 (11.5-15.5) % Plt Count 245 (150-450) k/uL MPV 7.1 Neutrophils % 64 % Lymphocytes % 21 % Monocytes % 9 % Eosinophils % 3 % Basophils % 1 % Neutrophils # 4.6 (1.3-7.7) k/uL Lymphocytes # 1.5 (1.0-4.8) k/uL Monocytes # 0.6 (0-1.0) k/uL Eosinophils # 0.2 (0-0.7) k/uL Basophils # 0.1 (0-0.2) k/uL PT 10.1 (9.0-12.0) sec INR 0.9 (<1.2) APTT 23.9 (22.0-30.0) sec Sodium 137 (137-145) mmol/L Potassium 4.3 (3.5-5.1) mmol/L Chloride 107 (98-107) mmol/L Carbon Dioxide 21 L (22-30) mmol/L Anion Gap 9 mmol/L BUN 31 H (9-20) mg/dL Creatinine 0.88 (0.66-1.25) mg/dL Est GFR (CKD-EPI)AfAm >90 (>60 ml/min/1.73 sqM) Est GFR (CKD-EPI)NonAf 84 (>60 ml/min/1.73 sqM) Glucose 103 H (74-99) mg/dL Plasma Lactic Acid [place] (0.7-2.0) mmol/L Calcium 9.2 (8.4-10.2) mg/dL Magnesium 2.1 (1.6-2.3) mg/dL Total Bilirubin 0.2 (0.2-1.3) mg/dL AST 22 (17-59) U/L ALT 16 (4-49) U/L Alkaline Phosphatase 70 (38-126) U/L Troponin I (0.000-0.034) ng/mL Total Protein 6.1 L (6.3-8.2) g/dL Albumin 3.7 (3.5-5.0) g/dL 10/29/20 10/29/20 Range/Units 08:34 08:34 WBC (3.8-10.6) k/uL RBC (4.30-5.90) m/uL Hgb (13.0-17.5) gm/dL Hct (39.0-53.0) % MCV (80.0-100.0) fL MCH (25.0-35.0) pg MCHC (31.0-37.0) g/dL RDW (11.5-15.5) % Plt Count (150-450) k/uL MPV Neutrophils % % Lymphocytes % % Monocytes % % Eosinophils % % Basophils % % Neutrophils # (1.3-7.7) k/uL Lymphocytes # (1.0-4.8) k/uL Monocytes # (0-1.0) k/uL Eosinophils # (0-0.7) k/uL Basophils # (0-0.2) k/uL PT (9.0-12.0) sec INR (<1.2) APTT (22.0-30.0) sec Sodium (137-145) mmol/L Potassium (3.5-5.1) mmol/L Chloride (98-107) mmol/L Carbon Dioxide (22-30) mmol/L Anion Gap mmol/L BUN (9-20) mg/dL Creatinine (0.66-1.25) mg/dL Est GFR (CKD-EPI)AfAm (>60 ml/min/1.73 sqM) Est GFR (CKD-EPI)NonAf (>60 ml/min/1.73 sqM) Glucose (74-99) mg/dL Plasma Lactic Acid [place] 1.3 (0.7-2.0) mmol/L Calcium (8.4-10.2) mg/dL Magnesium (1.6-2.3) mg/dL Total Bilirubin (0.2-1.3) mg/dL AST (17-59) U/L ALT (4-49) U/L Alkaline Phosphatase (38-126) U/L Troponin I <0.012 (0.000-0.034) ng/mL Total Protein (6.3-8.2) g/dL Albumin (3.5-5.0) g/dL Disposition Clinical Impression: COPD with acute exacerbation Disposition: ADMITTED IP TO THIS HOSP Is patient prescribed a controlled substance at d/c from ED?: No Referrals: Fernando Lambert Jr, [Primary Care Provider] - 1-2 days Time of Disposition: 09:53
--- NOTE | 2020-10-29 09:01 | XR ---
EXAMINATION TYPE: XR chest 2V DATE OF EXAM: 10/29/2020 COMPARISON: Chest x-ray 09/26/2020 HISTORY: Difficulty breathing TECHNIQUE: Frontal and lateral views of the chest are obtained. FINDINGS: Interstitium is increased as on prior exam. Vertebroplasty changes are seen at multiple le vels within the thoracic and lumbar spine. Patient is rotated. There is no evident pneumothorax or pl eural effusion. Cardiac mediastinal silhouette is stable accounting for differences in technique. IMPRESSION: Interstitial lung disease.
[2020-10-29 09:07] LABS: Basophils # (A) 0.1 k/uL (0-0.2); Basophils % (A) 1 %; Eosinophils # (A) 0.2 k/uL (0-0.7); Eosinophils % (A) 3 %; HCT 41.6 % (39.0-53.0); HGB 14.4 gm/dL (13.0-17.5); Lymphocytes # (A) 1.5 k/uL (1.0-4.8); Lymphocytes % (A) 21 %; MCH 32.9 pg (25.0-35.0); MCHC 34.5 g/dL (31.0-37.0); MCV 95.2 fL (80.0-100.0); Mean Platelet Volume 7.1; Monocytes # (A) 0.6 k/uL (0-1.0); Monocytes % (A) 9 %; Neutrophils # (A) 4.6 k/uL (1.3-7.7); Neutrophils % (A) 64 %; Platelet Count 245 k/uL (150-450); RBC 4.37 m/uL (4.30-5.90); RDW 13.2 % (11.5-15.5); WBC 7.2 k/uL (3.8-10.6)
[2020-10-29 09:11] LABS: ALT 16 U/L (4-49); AST 22 U/L (17-59); African American GFR (CKD) >90 (>60 ml/min/1.73 sqM); Albumin 3.7 g/dL (3.5-5.0); Alkaline Phosphatase 70 U/L (38-126); Anion Gap 9 mmol/L; Blood Urea Nitrogen 31 mg/dL (9-20); Calcium 9.2 mg/dL (8.4-10.2); Carbon Dioxide 21 mmol/L (22-30); Chloride 107 mmol/L (98-107); Glucose 103 mg/dL (74-99); Magnesium 2.1 mg/dL (1.6-2.3); Non-African American GFR(CKD) 84 (>60 ml/min/1.73 sqM); Potassium 4.3 mmol/L (3.5-5.1); Sodium 137 mmol/L (137-145); Total Bilirubin 0.2 mg/dL (0.2-1.3); Total Protein 6.1 g/dL (6.3-8.2)
[2020-10-29 09:13] LABS: INR 0.9 (<1.2); Partial Thromboplastin Time 23.9 sec (22.0-30.0); Prothrombin Time 10.1 sec (9.0-12.0)
[2020-10-29] MEDS ORDERED: IPRATROPIUM-ALBUTEROL 3 ML NEB INHALATION PRN ×2 (09:55→11:35)
[2020-10-29] MEDS ORDERED: ACETAMINOPHEN TAB 500 MG TAB PO PRN (11:33)
[2020-10-29] MEDS: IPRATROPIUM-ALBUTEROL 3 ML NEB INHALATION SCH ×4 (11:41→23:37)
--- NOTE | 2020-10-29 11:59 | P.HPIM ---
History of Present Illness H&P Date: 10/29/20 Chief Complaint: Acute exacerbation chronic COPD 75-year-old male well-known to the practice who presents via the emergency room with acute exacerbation of chronic COPD. Patient's had difficulty breathing since approximately 2 AM this morning. Patient states no chest pain no fever no chills denies numbness weakness denies abdominal pain denies nausea vomiting or diarrhea. Patient states she diffusely presents the emergency room gets updraft treatments IV steroids feels better and goes home. Patient did not improve with these treatments, also states is extremely humid no air conditioning in the home Review of Systems Constitutional: Reports as per HPI Ears, nose, mouth and throat: Reports as per HPI Cardiovascular: Reports as per HPI Respiratory: Reports congestion, Reports cough, Reports cough with sputum, Reports home oxygen, Reports wheezing Gastrointestinal: Reports as per HPI Genitourinary: Reports as per HPI Musculoskeletal: Reports as per HPI Integumentary: Reports as per HPI Neurological: Reports as per HPI Psychiatric: Reports as per HPI Past Medical History Past Medical History: COPD Additional Past Medical History / Comment(s): Paroxysmal Afib, bronchitis, pulmonary nodules/negative pet scan, BPH, constipation, vertigo, chronic low back pain/DDD. covid 06/22. Persistent cigarette smoker approximately 5-10 ciga rettes daily History of Any Multi-Drug Resistant Organisms: None Reported Past Surgical History: Back Surgery Additional Past Surgical History / Comment(s): Bilateral cataract removals-lens implants, colonoscopy, multiple kyphoplasties. Past Anesthesia/Blood Transfusion Reactions: No Reported Reaction Additional Past Anesthesia/Blood Transfusion Reaction / Comment(s): Has never received any blood transfusions. Past Psychological History: No Psychological Hx Reported Additional Psychological History / Comment(s): Pt resides with his son, (Jt). They live in a downstairs apartment. Pt manages his own medications. He has a nebulizer. His son cooks and drives pt to [email or web address]. recently passed [email or web address]. Smoking Status: Current every day smoker Past Alcohol Use History: None Reported Additional Past Alcohol Use History / Comment(s): Pt started smoking age [age]) got up to 5 ppd for many years then cut down to 3 ppd, currently smoking a ppd or alittle more if his back is hurting. Past Drug Use History: None Reported - Past Family History Mother Family Medical History: AFIB, Dementia Father Family Medical History: Myocardial Infarction ([place]) Additional Family Medical History / Comment(s): in his 70's [place] Medications and Allergies Home Medications Medication Instructions Recorded Confirmed Type Tamsulosin HCl [Flomax] 0.4 mg PO BID 03/24/18 10/29/20 History Apixaban [Eliquis] 5 mg PO BID 09/14/18 10/29/20 History Metoprolol Tartrate [Lopressor] 50 mg PO BID 02/04/19 10/29/20 History Ergocalciferol [Vitamin D2 1,250 mcg PO GROVES 05/05/19 10/29/20 History (DRISDOL)] Finasteride [Proscar] 5 mg PO DAILY 05/05/19 10/29/20 History Alendronate Sodium [Fosamax] 70 mg PO GROVES 08/21/19 10/29/20 History Budesonide/Formoterol Fumarate 2 puff INHALATION RT-BID 05/21/20 10/29/20 History [Symbicort 160-4.5 Mcg Inhaler] Acetaminophen Tab [Tylenol Tab] 500 mg PO Q6H PRN 09/23/20 10/29/20 History Ipratropium-Albuterol Nebulize 3 ml INHALATION RT-Q4H PRN 09/23/20 10/29/20 History [Duoneb 0.5 mg-3 mg/3 ml Soln] Umeclidinium [place] [Incruse 1 puff INHALATION RT-DAILY 09/23/20 10/29/20 History Ellipta] polyethylene glycoL 3350 [Miralax] 17 gm PO DAILY 09/23/20 10/29/20 History Albuterol Sulfate [Proair Hfa] 1 - 2 puff INHALATION RT-QID PRN 10/12/20 10/29/20 History Allergies Allergy/AdvReac Type Severity Reaction Status Date / Time Iodinated Contrast Media Allergy Rash/Hives Verified 10/29/20 09:02 [Iodinated Contrast- Oral and IV Dye] latex Allergy Rash/Hives Verified 10/29/20 09:02 Physical Exam Osteopathic Statement: *. No significant issues noted on an osteopathic structural exam other than those noted in the History and Physical/Consult. Vitals: Vital Signs Temp Pulse Pulse Resp BP BP Pulse Ox 10/29/20 11:41 75 94 L 10/29/20 10:50 98 F 65 20 134/82 95 10/29/20 10:29 97.6 F 78 20 133/84 95 10/29/20 09:17 78 10/29/20 09:14 86 20 133/84 95 10/29/20 08:53 77 10/29/20 08:14 18 10/29/20 08:12 97.6 F 86 20 123/70 93 L Intake and Output 10/28/20 10/29/20 10/29/20 22:59 06:59 14:59 Other: Weight 70.307 kg General: [Patient awake, alert and oriented times 3. Patient in no acute distress.] HEENT: [PERRL. EOMI. No pharyngeal erythema or exudate.] Neck: [No adenopathy.] Cardiac: [Heart regular in rate and rhythm. No S3. No S4. No clicks, rubs. No murmur.] Lungs: Bibasilar wheezes , diminished breath sounds, scattered rhonchi Abdomen: [No mass. No organomegaly. Bowel sounds presnt and normoactive in all 4 quadrants.] Extremes: [No edema no cyanosis no claudication normal pulses] : Normal male genitalia Musculoskeletal: [No joint erythema, edema or tenderness.] Skin: [No rash.] Neurologic: [No lateralizing deficits. CN II - XII grossly intact.] Lymphatic: [No adenopathy.] Results CBC & Chem 7: 10/29/20 08:34 10/29/20 08:34 Labs: Abnormal Lab Results - Last 24 Hours (Table) 10/29/20 Range/Units 08:34 Carbon Dioxide 21 L (22-30) mmol/L BUN 31 H (9-20) mg/dL Glucose 103 H (74-99) mg/dL Total Protein 6.1 L (6.3-8.2) g/dL Thrombosis Risk Factor Assmnt - Choose All That Apply Each Risk Factor Represents 3 Points: Age 75 years or older Thrombosis Risk Factor Assessment Total Risk Factor Score: 3 Thrombosis Risk Factor Assessment Level: Moderate Risk Assessment and Plan (1) COPD with acute exacerbation Current Visit: Yes Status: Acute Code(s): J44.1 - CHRONIC OBSTRUCTIVE PULMONARY DISEASE W (ACUTE) EXACERBATION SNOMED Code(s): 111712447 (2) Acute exacerbation of chronic obstructive airways disease Current Visit: No Status: Acute Code(s): J44.1 - CHRONIC OBSTRUCTIVE PULMONARY DISEASE W (ACUTE) EXACERBATION SNOMED Code(s): 184037027 (3) Acute hypercapnic respiratory failure Current Visit: No Status: Acute Code(s): J96.02 - ACUTE RESPIRATORY FAILURE WITH HYPERCAPNIA SNOMED Code(s): 618312704 (4) Atrial fibrillation Current Visit: No Status: Acute Code(s): I48.91 - UNSPECIFIED ATRIAL FIBRILLATION SNOMED Code(s): 80157062 (5) BiPAP (biphasic positive airway pressure) dependence Current Visit: No Status: Acute Code(s): Z99.89 - DEPENDENCE ON OTHER ENABLING MACHINES AND DEVICES SNOMED Code(s): 224244835 Plan: Consultation with pulmonary medicine IV antibiotics, IV prednisone Albuterol updraft treatments as scheduled Oxygen per nasal cannula as needed We'll continue to follow closely Time with Patient: Greater than 30
[2020-10-29] MEDS: AZITHROMYCIN 500 MG in SODIUM CHLORIDE 0.9% 250 ML IVPB SCH (12:40)
[2020-10-29] MEDS: methylPREDNISolone SOD SUCCI 125 MG/2 ML VIAL IV SCH ×2 (12:40→16:45)
[2020-10-29] MEDS: APIXABAN 5 MG TAB PO SCH ×2 (12:40→20:21)
--- NOTE | 2020-10-29 13:15 | P.CNPUL ---
History of Present Illness Consult date: 10/29/20 Reason for consult: COPD History of present illness: This is a 75-year-old male patient with known history of COPD is coming into the hospital because of worsening shortness of breath, chest tightness and wheezing typically of COPD exacerbation. This started around 2:00 this morning. The patient is known to have COPD. His been maintained on Symbicort and Incruse and he doesn't be done about treatments on the clock are necessary basis. He has had previous hospital physician for COPD and he follows up with us in the office. He is a chronic smoker. His chest x-ray history of any acute pulmonary infiltration. No evidence of any pneumonia. No pleurisy. No hemoptysis. No swelling lower extremities. No angina or palpitations. The patient had a normal hemodynamics. White cell count was at 7.2 with hemoglobin of 14.4. Sodium was 137 with a potassium level of 4.3. BUN was 31 with a creatinine of 0.8. The LFTs were normal. Troponin was negative. He was hospitalized for an acute COPD exacerbation. Currently is feeling better. Is on a combination of bronchodilators and steroids. EKG showed sinus rhythm without any ST segment changes. Review of Systems CONSTITUTIONAL: Denies any recent significant weight loss or weight gain. EYES: Denies change in vision. EARS, NOSE, MOUTH, THROAT: Denies headaches, denies sore throat. CARDIOVASCULAR: Denies chest pain, palpitations or syncopal episodes. RESPIRATORY: Positive for shortness of breath, cough, congestion no hemoptysis. GASTROINTESTINAL: Denies change in appetite, denies abdominal pain GENITOURINARY: Denies hematuria, denies infections. MUSKULOSKELETAL: Denies pain, denies swelling. INTEGUMENTARY: Denies rash, denies eczema. NEUROLOGICAL: Denies recent memory loss, no recent seizure activity. PSYCHIATRIC: Denies anxiety, denies depression. HEMATOLOGIC/LYMPHATIC: Denies anemia, denies enlarged lymph nodes. Past Medical History Past Medical History: Atrial Flutter (PAF), COPD Additional Past Medical History / Comment(s): Paroxysmal Afib, bronchitis, pulmonary nodules/negative pet scan, BPH, constipation, vertigo, chronic low back pain/DDD. covid 06/22 History of Any Multi-Drug Resistant Organisms: None Reported Past Surgical History: Back Surgery Additional Past Surgical History / Comment(s): Bilateral cataract removals-lens implants, colonoscopy, multiple kyphoplasties. Past Anesthesia/Blood Transfusion Reactions: No Reported Reaction Additional Past Anesthesia/Blood Transfusion Reaction / Comment(s): Has never received any blood transfusions. Past Psychological History: No Psychological Hx Reported Additional Psychological History / Comment(s): Pt resides with his son, (Damien son). They live in a downstairs apartment. Pt manages his own medications. He has a nebulizer. His son cooks and drives pt to [place] recently passed mar.[id number]. Smoking Status: Current every day smoker Past Alcohol Use History: None Reported Additional Past Alcohol Use History / Comment(s): Pt started smoking age 12(1957) got up to 5 ppd for many years then cut down to 3 ppd, currently smoking a ppd or alittle more if his back is hurting. Past Drug Use History: None Reported - Past Family History Mother Family Medical History: AFIB, Dementia Father Family Medical History: Myocardial Infarction ([place]) Additional Family Medical History / Comment(s): in his 70's [place] Medications and Allergies Home Medications Medication Instructions Recorded Confirmed Type Tamsulosin HCl [Flomax] 0.4 mg PO BID 03/24/18 10/29/20 History Apixaban [Eliquis] 5 mg PO BID 09/14/18 10/29/20 History Metoprolol Tartrate [Lopressor] 50 mg PO BID 02/04/19 10/29/20 History Ergocalciferol [Vitamin D2 1,250 mcg PO GROVES 05/05/19 10/29/20 History (DRISDOL)] Finasteride [Proscar] 5 mg PO DAILY 05/05/19 10/29/20 History Alendronate Sodium [Fosamax] 70 mg PO GROVES 08/21/19 10/29/20 History Budesonide/Formoterol Fumarate 2 puff INHALATION RT-BID 05/21/20 10/29/20 History [Symbicort 160-4.5 Mcg Inhaler] Acetaminophen Tab [Tylenol Tab] 500 mg PO Q6H PRN 09/23/20 10/29/20 History Ipratropium-Albuterol Nebulize 3 ml INHALATION RT-Q4H PRN 09/23/20 10/29/20 History [Duoneb 0.5 mg-3 mg/3 ml Soln] Umeclidinium [place] [Incruse 1 puff INHALATION RT-DAILY 09/23/20 10/29/20 History Ellipta] polyethylene glycoL 3350 [Miralax] 17 gm PO DAILY 09/23/20 10/29/20 History Albuterol Sulfate [Proair Hfa] 1 - 2 puff INHALATION RT-QID PRN 10/12/20 10/29/20 History Allergies Allergy/AdvReac Type Severity Reaction Status Date / Time Iodinated Contrast Media Allergy Rash/Hives Verified 10/29/20 09:02 [Iodinated Contrast- Oral and IV Dye] latex Allergy Rash/Hives Verified 10/29/20 09:02 Physical Exam Vitals: Vital Signs Temp Pulse Pulse Resp BP BP Pulse Ox 10/29/20 11:53 77 10/29/20 11:41 75 94 L 10/29/20 10:50 98 F 65 20 134/82 95 10/29/20 10:29 97.6 F 78 20 133/84 95 10/29/20 09:17 78 10/29/20 09:14 86 20 133/84 95 10/29/20 08:53 77 10/29/20 08:14 18 10/29/20 08:12 97.6 F 86 20 123/70 93 L Intake and Output 10/28/20 10/29/20 10/29/20 22:59 06:59 14:59 Other: Weight 70.307 kg GENERAL EXAM: Alert, pleasant 75-year-old gentleman, on 4 L nasal cannula, fairly comfortable in no apparent distress. HEAD: Normocephalic. EYES: Normal reaction of pupils, equal size. NOSE: Clear with pink turbinates. THROAT: No erythema or exudates. NECK: No masses, no JVD. CHEST: No chest wall deformity. LUNGS: Equal air entry with bilateral end expiratory wheeze, few scattered crackles, diminished. CVS: S1 and S2 normal with no audible murmur, regular rhythm. ABDOMEN: No hepatosplenomegaly, normal bowel sounds, no guarding or rigidity. SPINE: No scoliosis or deformity SKIN: No rashes CENTRAL NERVOUS SYSTEM: No focal deficits, tone is normal in all 4 extremities. EXTREMITIES: There is no peripheral edema. No clubbing, no cyanosis. Peripheral pulses are intact. Results - Laboratory Findings CBC and BMP: 10/29/20 08:34 10/29/20 08:34 PT/INR, D-dimer PT 10.1 sec (9.0-12.0) 10/29/20 08:34 INR 0.9 (<1.2) 10/29/20 08:34 Abnormal lab findings: Abnormal Labs 10/29/20 08:34 Carbon Dioxide 21 L BUN 31 H Glucose 103 H Total Protein 6.1 L - Diagnostic Findings Chest x-ray: image reviewed Assessment and Plan Plan: 1 Acute COPD exacerbation in patient with known history of moderate severe COPD with an FEV1 of 53% of predicted. The patient presented with worsening shortness of breath. Chest x-ray free of any acute pulmonary infiltration. The patient is already feeling better and currently is on a combination of bronchodilators and steroids. Meatus effective for COPD exacerbation related to his chronic smoking. 2 Advanced COPD with a baseline FEV1 of 53% predicted, stage III COPD, not on home oxygen, maintain on combination of Symbicort, Incruse and albuterol 3 Chronic smoker, chronic and ongoing, carries 60+ years of smoking 4 Paroxysmal A. fib on Eliquis, current rhythm is sinus 5 BPH 6 COVID 19 infection diagnosed on 06/20/2020 7 Chronic low back pain 8 Pulmonary nodules with negative PET scan 9 Hypertension Plan: Clinically improving Chest x-ray and labs reviewed Start IV Solu-Medrol 60 mg every 6 hours Continue vitamin supplements Continue Symbicort, Anticoagulated with Eliquis Titrate the FiO2 as tolerated Again educated regarding the importance of complete smoking cessation We'll continue to follow and make further recommendations based on his clinical status
[2020-10-29] MEDS: SYMBICORT 160-4.5 MCG INHALER INHALATION SCH (19:47)
[2020-10-29] MEDS: TAMSULOSIN 0.4 MG CAP.ER.24H PO SCH (20:21)
[2020-10-29] MEDS: METOPROLOL TARTRATE 50 MG TAB PO SCH (20:22)
[2020-10-30] MEDS: methylPREDNISolone SOD SUCCI 125 MG/2 ML VIAL IV SCH ×3 (00:19→11:37)
[2020-10-30] MEDS: IPRATROPIUM-ALBUTEROL 3 ML NEB INHALATION SCH ×3 (03:34→11:17)
[2020-10-30] MEDS: APIXABAN 5 MG TAB PO SCH (07:20)
[2020-10-30] MEDS: METOPROLOL TARTRATE 50 MG TAB PO SCH (07:20)
[2020-10-30] MEDS: TAMSULOSIN 0.4 MG CAP.ER.24H PO SCH (07:21)
[2020-10-30] MEDS: SYMBICORT 160-4.5 MCG INHALER INHALATION SCH (07:32)
[2020-10-30 07:56] VITALS: BP 132/75; RESP 19; TEMP 98.6
[2020-10-30] MEDS ORDERED: polyethylene glycoL 3350 17 GM POWD.PACK PO SCH (09:00)
[2020-10-30] MEDS ORDERED: ERGOCALCIFEROL 1,250 MCG (50,000 IU) CAPSULE PO SCH (09:00)
[2020-10-30] MEDS ORDERED: FINASTERIDE 5 MG TAB PO SCH (09:00)
[2020-10-30 11:32] VITALS: PULSE 100
[2020-10-30] MEDS: AZITHROMYCIN 500 MG in SODIUM CHLORIDE 0.9% 250 ML IVPB SCH (11:38)
--- NOTE | 2020-10-30 12:13 | P.PN ---
Subjective Progress Note Date: 10/30/20 10/30/2020, clinically the patient is feeling better. The discharge. Smoking cessation counseling was done. Also strongly advised this patient taken his COVID-19 vaccination. Discussed the case with the primary care physician team. Objective - Vital Signs Vital signs: Vital Signs Temp 98.6 F 10/30/20 07:00 Pulse 100 10/30/20 11:29 Resp 19 10/30/20 07:00 BP 132/75 10/30/20 07:00 Pulse Ox 93 L 10/30/20 07:33 Intake & Output 10/29/20 10/30/20 10/30/20 18:59 06:59 18:59 Weight 70.307 kg Other: # Voids 1 1 - Exam GENERAL EXAM: Alert, pleasant 75-year-old gentleman, on RA, fairly comfortable in no apparent distress. HEAD: Normocephalic. EYES: Normal reaction of pupils, equal size. NOSE: Clear with pink turbinates. THROAT: No erythema or exudates. NECK: No masses, no JVD. CHEST: No chest wall deformity. LUNGS: Equal air entry with bilateral end expiratory wheeze, few scattered crackles, diminished. CVS: S1 and S2 normal with no audible murmur, regular rhythm. ABDOMEN: No hepatosplenomegaly, normal bowel sounds, no guarding or rigidity. SPINE: No scoliosis or deformity SKIN: No rashes CENTRAL NERVOUS SYSTEM: No focal deficits, tone is normal in all 4 extremities. EXTREMITIES: There is no peripheral edema. No clubbing, no cyanosis. Peripheral pulses are intact. - Labs CBC & Chem 7: 10/29/20 08:34 10/29/20 08:34 Assessment and Plan Plan: 1 Acute COPD exacerbation in patient with known history of moderate severe COPD with an FEV1 of 53% of predicted. The patient presented with worsening shortness of breath. Chest x-ray free of any acute pulmonary infiltration. The patient is already feeling better and currently is on a combination of bronchodilators and steroids. COPD exacerbation related to his chronic smoking. 2 Advanced COPD with a baseline FEV1 of 53% predicted, stage III COPD, not on home oxygen, maintain on combination of Symbicort, Incruse and albuterol 3 Chronic smoker, chronic and ongoing, carries 60+ years of smoking 4 Paroxysmal A. fib on Eliquis, current rhythm is sinus 5 BPH 6 COVID 19 infection diagnosed on 06/20/2020 7 Chronic low back pain 8 Pulmonary nodules with negative PET scan 9 Hypertension Plan: Clinically improving Back to baseline and the patient can be discharged home on a prednisone burst taper Continue vitamin supplements Continue Symbicort, Anticoagulated with Eliquis Titrate the FiO2 as tolerated Again educated regarding the importance of complete smoking cessation Recommend COVID-19 vaccination
--- NOTE | 2020-10-30 12:21 | P.DS ---
Providers Date of admission: 10/29/20 10:05 Expected date of discharge: 10/30/20 Attending physician: Fernando Lambert Consults: 10/29/20 09:55 Consult Physician Routine Consulting Provider: Martir Tucker Consult Reason/Comments: Acute exacerbation of COPD Do you want consulting provider notified?: Yes Primary care physician: Fernando Lambert - Discharge Diagnosis(es) (1) COPD with acute exacerbation Current Visit: Yes Status: Acute (2) Acute exacerbation of chronic obstructive airways disease Current Visit: No Status: Acute (3) Acute hypercapnic respiratory failure Current Visit: No Status: Acute (4) Atrial fibrillation Current Visit: No Status: Acute (5) BiPAP (biphasic positive airway pressure) dependence Current Visit: No Status: Acute Hospital Course: Patient was admitted with acute exacerbation chronic COPD General: [Patient awake, alert and oriented times 3. Patient in no acute distress.] HEENT: [PERRL. EOMI. No pharyngeal erythema or exudate.] Neck: [No adenopathy.] Cardiac: [Heart regular in rate and rhythm. No S3. No S4. No clicks, rubs. No murmur.] Lungs: Diminished breath sounds but clear bilaterally Abdomen: [No mass. No organomegaly. Bowel sounds presnt and normoactive in all 4 quadrants.] Extremes: [No edema no cyanosis no claudication normal pulses] : [] Musculoskeletal: [No joint erythema, edema or tenderness.] Skin: [No rash.] Neurologic: [No lateralizing deficits. CN II - XII grossly intact.] Lymphatic: [No adenopathy.] Patient Condition at Discharge: Good Plan - Discharge Summary New Discharge Prescriptions: New predniSONE [Deltasone] 20 mg PO DIRECTED #7 tab No Action Tamsulosin HCl [Flomax] 0.4 mg PO BID Apixaban [Eliquis] 5 mg PO BID Metoprolol Tartrate [Lopressor] 50 mg PO BID Finasteride [Proscar] 5 mg PO DAILY Ergocalciferol [Vitamin D2 (DRISDOL)] 1,250 mcg PO GROVES Alendronate Sodium [Fosamax] 70 mg PO GROVES Budesonide/Formoterol Fumarate [Symbicort 160-4.5 Mcg Inhaler] 2 puff INHALATION RT-BID Ipratropium-Albuterol Nebulize [Duoneb 0.5 mg-3 mg/3 ml Soln] 3 ml INHALATION RT-Q4H PRN PRN Reason: Shortness Of Breath Umeclidinium [place] [Incruse Ellipta] 1 puff INHALATION RT-DAILY Acetaminophen Tab [Tylenol Tab] 500 mg PO Q6H PRN PRN Reason: Pain Or Fever > 100.5 polyethylene glycoL 3350 [Miralax] 17 gm PO DAILY Albuterol Sulfate [Proair Hfa] 1 - 2 puff INHALATION RT-QID PRN PRN Reason: Shortness Of Breath Discharge Medication List Tamsulosin HCl [Flomax] 0.4 mg PO BID 03/24/18 [History] Apixaban [Eliquis] 5 mg PO BID 09/14/18 [History] Metoprolol Tartrate [Lopressor] 50 mg PO BID 02/04/19 [History] Ergocalciferol [Vitamin D2 (DRISDOL)] 1,250 mcg PO GROVES 05/05/19 [History] Finasteride [Proscar] 5 mg PO DAILY 05/05/19 [History] Alendronate Sodium [Fosamax] 70 mg PO GROVES 08/21/19 [History] Budesonide/Formoterol Fumarate [Symbicort 160-4.5 Mcg Inhaler] 2 puff INHALATION RT-BID 05/21/20 [History] Acetaminophen Tab [Tylenol Tab] 500 mg PO Q6H PRN 09/23/20 [History] Ipratropium-Albuterol Nebulize [Duoneb 0.5 mg-3 mg/3 ml Soln] 3 ml INHALATION RT-Q4H PRN 09/23/20 [History] Umeclidinium [place] [Incruse Ellipta] 1 puff INHALATION RT-DAILY 09/23/20 [History] polyethylene glycoL 3350 [Miralax] 17 gm PO DAILY 09/23/20 [History] Albuterol Sulfate [Proair Hfa] 1 - 2 puff INHALATION RT-QID PRN 10/12/20 [History] predniSONE [Deltasone] 20 mg PO DIRECTED #7 tab 10/30/20 [Rx] Follow up Appointment(s)/Referral(s): Fernando Lambert Jr, [Primary Care Provider] - 1-2 days
[2020-10-31] MEDS ORDERED: predniSONE 20 MG TAB PO SCH (09:00)
== END 2020-10-30 12:34 | disposition home or self-care (01) ==
LOC: EC 08:10 → 6NMEDSUR 10:05
PROVIDERS: ADMIT Family Medicine; ATTEND Family Medicine
DX: J44.1 Chronic obstructive pulmonary disease with (acute) exacerbation (principal); J96.02 Acute respiratory failure with hypercapnia; I48.0 Paroxysmal atrial fibrillation; F17.200 Nicotine dependence, unspecified, uncomplicated; N40.0 Benign prostatic hyperplasia without lower urinary tract symptoms; G89.29 Other chronic pain; M54.5 Low back pain; R91.1 Solitary pulmonary nodule; Z71.6 Tobacco abuse counseling; Z79.01 Long term (current) use of anticoagulants; Z79.51 Long term (current) use of inhaled steroids; Z79.83 Long term (current) use of bisphosphonates; Z79.899 Other long term (current) drug therapy; Z91.041 Radiographic dye allergy status; Z91.040 Latex allergy status; Z86.16 Personal history of COVID-19; Z96.1 Presence of intraocular lens; Z98.41 Cataract extraction status, right eye; Z98.42 Cataract extraction status, left eye; Z82.49 Family history of ischemic heart disease and other diseases of the circulatory system; Z81.8 Family history of other mental and behavioral disorders
CPT/HCPCS: 99285; 96376 ×2; 96365; 96366; 96367; 96375; 36415; 94640 ×4; 94760 ×2; 93005; 80053; 83605; 83735; 84484; 85025; 85610; 85730; 71046; G0378 ×2; S0138; J2930 ×2; J0456 ×2; J0696 ×2

== ENCOUNTER 2020-11-28 07:09 | Emergency (ER) | payer MEDICARE ==
[2020-11-28] MEDS ORDERED: ALBUTEROL NEBULIZED 2.5 MG/3 ML INHALATION STA (07:54)
[2020-11-28] MEDS ORDERED: DEXAMETHASONE SOD PHOSPHATE 10 MG/ML 1 ML VIAL IV STA (07:54)
[2020-11-28] MEDS ORDERED: IPRATROPIUM 0.5 MG/2.5 ML NEBU INHALATION STA (07:54)
--- NOTE | 2020-11-28 07:57 | ED ---
General Adult HPI - General Chief complaint: Shortness of Breath Stated complaint: KEERTHI Time Seen by Provider: 11/28/20 07:30 Source: patient Mode of arrival: wheelchair Limitations: no limitations - History of Present Illness Initial comments: Dictation was produced using [email or web address] dictation software. please excuse any grammatical, word or spelling errors. Chief Complaint: 75-year-old male presents to the emergency department for short ness of breath History of Present Illness: And is a 75-year-old male he has past medical history of COPD. 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 Patient reports that over the last 3 days he's been experiencing worsening shortness of breath. Patient is a regular tobacco user. He is here murmurs department frequently for COPD exacerbations. Denies any fever. No chills. Patient states he's nonvaccinated for coronavirus. Denies any chest pain. Patient continues to smoke tobacco regularly. Denies any obvious sick exposures. The ROS documented in this emergency department record has been reviewed and confirmed by me. Those systems with pertinent positive or negative responses have been documented in the HPI. All other systems are other negative and/or noncontributory. PHYSICAL EXAM: General Impression: Alert and oriented x3, very mildly dyspneic HEENT: Normocephalic atraumatic, extra-ocular movements intact, pupils equal and reactive to light bilaterally, mucous membranes moist. Cardiovascular: Heart regular rate and rhythm Chest: Able to complete full sentences, no retractions, diffuse wheezing on auscultation of the lungs Abdomen: abdomen soft, non-tender, non-distended, no organomegaly Musculoskeletal: Pulses present and equal in all extremities, no peripheral edema Motor: no focal deficits noted Neurological: CN II-XII grossly intact, no focal motor or sensory deficits noted Skin: Intact with no visualized rashes Psych: Normal affect and mood ED course: 75-year-old male with chief complaint of shortness of breath. Chart review was performed. Patient has been here in our emergency department often for COPD exacerbations. Vital signs upon arrival shows heart rate of 106, oxygen saturation 93, rest of vital signs within acceptable limits. Patient's well-appearing at bedside aside from some very very mild dyspnea EKG interpretation: Ventricular rate 99, normal sinus rhythm, NE interval 150, QRS 82, QTc 462. No NE prolongation, no QTC prolongation, no ST or T-wave changes noted. EKG compared to 10/29/2020 showing no changes. Overall, this EKG is unremarkable Laboratory evaluation obtained. CBC, coag panel, metabolic panel is unremarkable. Coronavirus test is negative. Chest x-ray shows no changes compared to x-ray from last month. Clinical presentation consistent with mild COPD exacerbation. Patient treated with Decadron and breathing treatment. Patient reevaluated at bedside after breathing treatment with improvement of symptoms. Patient is well-appearing states that his symptoms are improved. Patient be discharged. 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 - Related Data Home Medications Medication Instructions Recorded Confirmed Tamsulosin HCl [Flomax] 0.4 mg PO BID 03/24/18 11/28/20 Apixaban [Eliquis] 5 mg PO BID 09/14/18 11/28/20 Metoprolol Tartrate [Lopressor] 50 mg PO BID 02/04/19 11/28/20 Ergocalciferol [Vitamin D2 1,250 mcg PO GROVES 05/05/19 11/28/20 (DRISDOL)] Finasteride [Proscar] 5 mg PO DAILY 05/05/19 11/28/20 Alendronate Sodium [Fosamax] 70 mg PO GROVES 08/21/19 11/28/20 Budesonide/Formoterol Fumarate 2 puff INHALATION RT-BID 05/21/20 11/28/20 [Symbicort 160-4.5 Mcg Inhaler] Acetaminophen Tab [Tylenol Tab] 500 mg PO Q6H PRN 09/23/20 11/28/20 Ipratropium-Albuterol Nebulize 3 ml INHALATION RT-Q4H PRN 09/23/20 11/28/20 [Duoneb 0.5 mg-3 mg/3 ml Soln] Umeclidinium [place] [Incruse 1 puff INHALATION RT-DAILY 09/23/20 11/28/20 Ellipta] polyethylene glycoL 3350 [Miralax] 17 gm PO DAILY 09/23/20 11/28/20 Albuterol Sulfate [Proair Hfa] 1 - 2 puff INHALATION RT-QID PRN 10/12/20 11/28/20 Allergies Allergy/AdvReac Type Severity Reaction Status Date / Time Iodinated Contrast Media Allergy Rash/Hives Verified 11/28/20 08:09 [Iodinated Contrast- Oral and IV Dye] latex Allergy Rash/Hives Verified 11/28/20 08:09 Review of Systems ROS Statement: Those systems with pertinent positive or pertinent negative responses have been documented in the HPI. ROS Other: All systems not noted in ROS Statement are negative. Past Medical History Past Medical History: Atrial Flutter, COPD Additional Past Medical History / Comment(s): Paroxysmal Afib, bronchitis, pulmonary nodules/negative pet scan, BPH, constipation, vertigo, chronic low back pain/DDD. covid 06/22 History of Any Multi-Drug Resistant Organisms: None Reported Past Surgical History: Back Surgery Additional Past Surgical History / Comment(s): Bilateral cataract removals-lens implants, colonoscopy, multiple kyphoplasties. Past Anesthesia/Blood Transfusion Reactions: No Reported Reaction Additional Past Anesthesia/Blood Transfusion Reaction / Comment(s): Has never received any blood transfusions. Past Psychological History: No Psychological Hx Reported Smoking Status: Current every day smoker Past Alcohol Use History: None Reported Past Drug Use History: None Reported - Past Family History Mother Family Medical History: AFIB, Dementia Father Family Medical History: Myocardial Infarction ([place]) Additional Family Medical History / Comment(s): in his 70's [place] General Exam Limitations: no limitations Course Vital Signs 11/28/20 11/28/20 11/28/20 07:24 07:48 08:49 Temperature 97.9 F Pulse Rate 106 H 100 Respiratory 20 17 Rate Blood Pressure 122/75 O2 Sat by Pulse 93 L Oximetry 11/28/20 09:14 Temperature Pulse Rate 104 H Respiratory Rate Blood Pressure O2 Sat by Pulse Oximetry Medical Decision Making - Lab Data Result diagrams: 11/28/20 08:01 11/28/20 08:01 Lab Results 11/28/20 11/28/20 11/28/20 Range/Units 08:01 08:01 08:01 WBC 7.5 (3.8-10.6) k/uL RBC 4.37 (4.30-5.90) m/uL Hgb 14.3 (13.0-17.5) gm/dL Hct 41.7 (39.0-53.0) % MCV 95.4 (80.0-100.0) fL MCH 32.8 (25.0-35.0) pg MCHC 34.4 (31.0-37.0) g/dL RDW 12.8 (11.5-15.5) % Plt Count 227 (150-450) k/uL MPV 7.9 Neutrophils % 63 % Lymphocytes % 19 % Monocytes % 9 % Eosinophils % 6 % Basophils % 1 % Neutrophils # 4.7 (1.3-7.7) k/uL Lymphocytes # 1.4 (1.0-4.8) k/uL Monocytes # 0.7 (0-1.0) k/uL Eosinophils # 0.4 (0-0.7) k/uL Basophils # 0.1 (0-0.2) k/uL PT 10.3 (9.0-12.0) sec INR 1.0 (<1.2) APTT 25.2 (22.0-30.0) sec Sodium 137 (137-145) mmol/L Potassium 4.3 (3.5-5.1) mmol/L Chloride 106 (98-107) mmol/L Carbon Dioxide 22 (22-30) mmol/L Anion Gap 9 mmol/L BUN 31 H (9-20) mg/dL Creatinine 0.94 (0.66-1.25) mg/dL Est GFR (CKD-EPI)AfAm >90 (>60 ml/min/1.73 sqM) Est GFR (CKD-EPI)NonAf 79 (>60 ml/min/1.73 sqM) Glucose 114 H (74-99) mg/dL Calcium 9.6 (8.4-10.2) mg/dL Magnesium 2.0 (1.6-2.3) mg/dL Troponin I (0.000-0.034) ng/mL NT-Pro-B Natriuret Pep pg/mL Coronavirus (PCR) (Not Detectd) 11/28/20 11/28/20 11/28/20 Range/Units 08:01 08:01 08:01 WBC (3.8-10.6) k/uL RBC (4.30-5.90) m/uL Hgb (13.0-17.5) gm/dL Hct (39.0-53.0) % MCV (80.0-100.0) fL MCH (25.0-35.0) pg MCHC (31.0-37.0) g/dL RDW (11.5-15.5) % Plt Count (150-450) k/uL MPV Neutrophils % % Lymphocytes % % Monocytes % % Eosinophils % % Basophils % % Neutrophils # (1.3-7.7) k/uL Lymphocytes # (1.0-4.8) k/uL Monocytes # (0-1.0) k/uL Eosinophils # (0-0.7) k/uL Basophils # (0-0.2) k/uL PT (9.0-12.0) sec INR (<1.2) APTT (22.0-30.0) sec Sodium (137-145) mmol/L Potassium (3.5-5.1) mmol/L Chloride (98-107) mmol/L Carbon Dioxide (22-30) mmol/L Anion Gap mmol/L BUN (9-20) mg/dL Creatinine (0.66-1.25) mg/dL Est GFR (CKD-EPI)AfAm (>60 ml/min/1.73 sqM) Est GFR (CKD-EPI)NonAf (>60 ml/min/1.73 sqM) Glucose (74-99) mg/dL Calcium (8.4-10.2) mg/dL Magnesium (1.6-2.3) mg/dL Troponin I <0.012 (0.000-0.034) ng/mL NT-Pro-B Natriuret Pep 42 pg/mL Coronavirus (PCR) Not Detected (Not Detectd) Disposition Clinical Impression: COPD exacerbation Disposition: HOME SELF-CARE Condition: Good Instructions (If sedation given, give patient instructions): COPD (Chronic Obstructive Pulmonary Disease) (ED) Is patient prescribed a controlled substance at d/c from ED?: No Referrals: Fernando Lambert Jr, [Primary Care Provider] - 1-2 days
[2020-11-28 08:17] LABS: Basophils # (A) 0.1 k/uL (0-0.2); Basophils % (A) 1 %; Eosinophils # (A) 0.4 k/uL (0-0.7); Eosinophils % (A) 6 %; HCT 41.7 % (39.0-53.0); HGB 14.3 gm/dL (13.0-17.5); Lymphocytes # (A) 1.4 k/uL (1.0-4.8); Lymphocytes % (A) 19 %; MCH 32.8 pg (25.0-35.0); MCHC 34.4 g/dL (31.0-37.0); MCV 95.4 fL (80.0-100.0); Mean Platelet Volume 7.9; Monocytes # (A) 0.7 k/uL (0-1.0); Monocytes % (A) 9 %; Neutrophils # (A) 4.7 k/uL (1.3-7.7); Neutrophils % (A) 63 %; Platelet Count 227 k/uL (150-450); RBC 4.37 m/uL (4.30-5.90); RDW 12.8 % (11.5-15.5); WBC 7.5 k/uL (3.8-10.6)
[2020-11-28 08:33] LABS: African American GFR (CKD) >90 (>60 ml/min/1.73 sqM); Anion Gap 9 mmol/L; Blood Urea Nitrogen 31 mg/dL (9-20); Calcium 9.6 mg/dL (8.4-10.2); Carbon Dioxide 22 mmol/L (22-30); Chloride 106 mmol/L (98-107); Glucose 114 mg/dL (74-99); Non-African American GFR(CKD) 79 (>60 ml/min/1.73 sqM); Potassium 4.3 mmol/L (3.5-5.1); Sodium 137 mmol/L (137-145)
[2020-11-28 08:36] LABS: Partial Thromboplastin Time 25.2 sec (22.0-30.0); Prothrombin Time 10.3 sec (9.0-12.0)
--- NOTE | 2020-11-28 08:44 | XR ---
EXAMINATION TYPE: XR chest 1V portable DATE OF EXAM: 11/28/2020 COMPARISON: Chest x-ray 10/29/2020, chest CT dated 05/22/2018 HISTORY: Cough, shortness of breath TECHNIQUE: Single frontal view of the chest is obtained. FINDINGS: There are prominent lung volumes and interstitium remains increased. Vertebroplasty change s are again seen at multiple levels. Cardiac mediastinal silhouette is stable. No evident pneumothora x or pleural effusion. IMPRESSION: Findings are similar to prior exam. There is underlying emphysema, interstitial lung dis ease
[2020-11-28 10:37] VITALS: BP 122/86; PULSE 103; RESP 18; TEMP 97.4
== END 2020-11-28 10:37 | disposition home or self-care (01) ==
LOC: EC 07:09
DX: J44.1 Chronic obstructive pulmonary disease with (acute) exacerbation (principal); I48.0 Paroxysmal atrial fibrillation; F17.200 Nicotine dependence, unspecified, uncomplicated; Z20.822 Contact with and (suspected) exposure to COVID-19; Z91.040 Latex allergy status; Z79.01 Long term (current) use of anticoagulants; Z91.041 Radiographic dye allergy status; Z79.51 Long term (current) use of inhaled steroids
CPT/HCPCS: 99285; 96374; 36415; 94640; 93005; 83880; 80048; 83735; 84484; 85025; 85610; 85730; 87635; 71045; J1100

== ENCOUNTER 2020-12-17 15:06 | Emergency (ER) | payer MEDICARE ==
[2020-12-17 15:16] VITALS: TEMP 98.7
[2020-12-17] MEDS ORDERED: IPRATROPIUM-ALBUTEROL 3 ML NEB INHALATION STA ×2 (16:30→17:37)
[2020-12-17] MEDS ORDERED: methylPREDNISolone SOD SUCCI 125 MG/2 ML VIAL IV STA (16:30)
[2020-12-17] MEDS ORDERED: ALBUTEROL HFA INHALER INHALATION STA (16:30)
[2020-12-17] MEDS ORDERED: MAGNESIUM SULFATE-D5W PMX 1 GM in DEXTROSE/WATER 1 100ML.BAG IVPB STA (16:30)
--- NOTE | 2020-12-17 16:47 | ED ---
General Adult HPI - General Chief complaint: Shortness of Breath Stated complaint: SOB Time Seen by Provider: 12/17/20 15:39 Source: patient, RN notes reviewed, old records reviewed Mode of arrival: ambulatory Limitations: no limitations - History of Present Illness Initial comments: Patient was evaluated when he was placed in a room. Patient is a 75-year-old male with past medical history remarkable for COPD not on home oxygen, A. fib, a flutter who presents emergency Department complaining of shortness of breath that has been progressively worsening over the last 3 days. He endorses a productive cough of white sputum which is normal amount and normal consistency and quantity. He continues to smoke cigarettes. Denies any fevers, sick contac ts. Denies any chest pain, abdominal pain, nausea, vomiting. Denies any headache, weakness, numbness. He was not vaccinated for COVID-19. No recent test. No known sick contacts. Denies any sore throat, rhinorrhea. Denies any earaches. His only complaint is shortness of breath at this time. He has attempted to use home inhalers without much improvement in symptoms. Presents today with daughter over concern for worsening shortness of breath. - Related Data Home Medications Medication Instructions Recorded Confirmed Tamsulosin HCl [Flomax] 0.4 mg PO BID 03/24/18 12/17/20 Apixaban [Eliquis] 5 mg PO BID 09/14/18 12/17/20 Metoprolol Tartrate [Lopressor] 50 mg PO BID 02/04/19 12/17/20 Ergocalciferol [Vitamin D2 1,250 mcg PO GROVES 05/05/19 12/17/20 (DRISDOL)] Finasteride [Proscar] 5 mg PO DAILY 05/05/19 12/17/20 Alendronate Sodium [Fosamax] 70 mg PO GROVES 08/21/19 12/17/20 Budesonide/Formoterol Fumarate 2 puff INHALATION RT-BID 05/21/20 12/17/20 [Symbicort 160-4.5 Mcg Inhaler] Acetaminophen Tab [Tylenol Tab] 500 mg PO Q6H PRN 09/23/20 12/17/20 Ipratropium-Albuterol Nebulize 3 ml INHALATION RT-Q4H PRN 09/23/20 12/17/20 [Duoneb 0.5 mg-3 mg/3 ml Soln] Umeclidinium [place] [Incruse 1 puff INHALATION RT-DAILY 09/23/20 12/17/20 Ellipta] polyethylene glycoL 3350 [Miralax] 17 gm PO DAILY 09/23/20 12/17/20 Albuterol Sulfate [Proair Hfa] 1 - 2 puff INHALATION RT-QID PRN 10/12/20 12/17/20 Previous Rx's Medication Instructions Recorded Albuterol Inhaler [Ventolin Hfa 1 puff INHALATION RT-QID #8 gm 12/17/20 Inhaler] predniSONE [Deltasone] 40 mg PO DAILY 5 Days #10 tab 12/17/20 Allergies Allergy/AdvReac Type Severity Reaction Status Date / Time Iodinated Contrast Media Allergy Rash/Hives Verified 12/17/20 19:02 [Iodinated Contrast- Oral and IV Dye] latex Allergy Rash/Hives Verified 12/17/20 19:02 Review of Systems ROS Statement: Those systems with pertinent positive or pertinent negative responses have been documented in the HPI. Review of Systems: CONST: Denies fever EYES: Denies blurry vision ENT: Denies nasal congestion C/V: Denies Chest pain RESP: Endorses shortness of breath GI: Denies abdominal pain : Denies dysuria SKIN: Denies rash. MSK: Denies joint pain. NEURO: Denies headache ROS Other: All systems not noted in ROS Statement are negative. Past Medical History Past Medical History: Atrial Flutter, COPD Additional Past Medical History / Comment(s): Paroxysmal Afib, bronchitis, pulmonary nodules/negative pet scan, BPH, constipation, vertigo, chronic low back pain/DDD. covid 06/22 History of Any Multi-Drug Resistant Organisms: None Reported Past Surgical History: Back Surgery Additional Past Surgical History / Comment(s): Bilateral cataract removals-lens implants, colonoscopy, multiple kyphoplasties. Past Anesthesia/Blood Transfusion Reactions: No Reported Reaction Additional Past Anesthesia/Blood Transfusion Reaction / Comment(s): Has never received any blood transfusions. Past Psychological History: No Psychological Hx Reported Smoking Status: Current every day smoker Past Alcohol Use History: None Reported Past Drug Use History: None Reported - Past Family History Mother Family Medical History: AFIB, Dementia Father Family Medical History: Myocardial Infarction ([place]) Additional Family Medical History / Comment(s): in his 70's from [place] General Exam - General Exam Comments Initial Comments: General: Appears in no acute distress. HEAD: Normal with no signs of head trauma. EYES: PERRLA, EOMI, conjunctiva normal, no discharge. ENT: Hearing grossly intact, normal oropharynx. RESPIRATORY: Increased work of breathing. Mildly hypoxic on room air to 94% 93% occasionally. Typically 95%. No retractions. Patient has bilateral end expiratory wheezing in bilateral lung meyers. No obvious rhonchi appreciated. No stridor. C/V: Regular rate and rhythm. S1 and S2 auscultated, no edema, peripheral pulses 2+ and intact throughout ABD: Abd is soft, nontender, nondistended EXT: Normal range of motion, no obvious deformity SKIN: No rashes or lesions observed on exposed skin. NEURO: Alert and Oriented 4. Limitations: no limitations Course Vital Signs 12/17/20 12/17/20 12/17/20 15:13 16:00 16:16 Temperature 98.7 F Pulse Rate 94 80 Respiratory 26 H 26 H 16 Rate Blood Pressure 138/79 107/75 O2 Sat by Pulse 93 L 92 L Oximetry 12/17/20 12/17/20 12/17/20 17:10 17:31 18:00 Temperature Pulse Rate 83 81 82 Respiratory 18 Rate Blood Pressure 101/57 O2 Sat by Pulse 95 Oximetry 12/17/20 12/17/20 12/17/20 19:00 19:15 19:41 Temperature Pulse Rate 80 84 82 Respiratory 16 Rate Blood Pressure 130/65 O2 Sat by Pulse 96 Oximetry Medical Decision Making - Medical Decision Making Is some patient's presentation and physical exam, is likely expressing an acute COPD exacerbation and I cannot rule out infectious etiology at this time. We will obtain a screening EKG and chest x-ray, but based on exam seems to have a COPD exacerbation. Patient will be medically treated with IV magnesium, steroids, as well as duonebs. We will obtain viral infectious tests including RSV, flu, Covid. Patient was in agreement this plan. He'll be connected to continuous cardiac monitoring with continuous pulse oximetry while. He is in the department. EKG shows normal sinus rhythm with no signs of acute ischemia. Laboratory studies are remarkable for negative Han, RSV, flu. Like to lites are n ormal. CBC is normal. Patient's chest x-ray shows signs of pulmonary fibrosis with no acute cardiopulmonary process. I discussed the patient's laboratory studies and imaging with the patient. He i s feeling improved in terms of breathing. He is saturating 93-94% on room air following 1 breathing treatment and his wheezing is improved. We will provide him with a second DuoNeb breathing treatment and reevaluated. He was in agreement this plan. He would like to go home if possible. Following second DuoNeb breathing treatment, patient's oxygenation is improved saturating 95-96% on room air. Wheezing is vastly improved from presentation. I discussed with him the option of being admitted for further breathing treatments or if he would like to go home at this point, as I do believe it is safe for him to go home. He was in agreement with the plan for discharge home. I want him to follow up with his PCP in the next few days. Strict return precautions were discussed. I counseled the patient on smoking cessation. I will provide the patient with a prescription for prednisone 40 mg daily for 5 days, albuterol inhaler. I instructed the patient to follow up with their PCP in the next 3 days. I explained that the patient should return to the emergency department if they experience any worsening symptoms. Strict return precautions were discussed with the patient. The patient expressed understanding of these instructions. I answered all questions that the patient had. The patient was discharged home in good condition with their prescriptions and follow up information. - Lab Data Result diagrams: 12/17/20 16:34 12/17/20 16:34 Lab Results 12/17/20 12/17/20 12/17/20 Range/Units 16:34 16:34 16:34 WBC 6.9 (3.8-10.6) k/uL RBC 4.55 (4.30-5.90) m/uL Hgb 14.8 (13.0-17.5) gm/dL Hct 44.2 (39.0-53.0) % MCV 97.1 (80.0-100.0) fL MCH 32.4 (25.0-35.0) pg MCHC 33.4 (31.0-37.0) g/dL RDW 12.8 (11.5-15.5) % Plt Count 219 (150-450) k/uL MPV 7.8 Neutrophils % 56 % Lymphocytes % 23 % Monocytes % 9 % Eosinophils % 8 % Basophils % 1 % Neutrophils # 3.9 (1.3-7.7) k/uL Lymphocytes # 1.6 (1.0-4.8) k/uL Monocytes # 0.6 (0-1.0) k/uL Eosinophils # 0.6 (0-0.7) k/uL Basophils # 0.0 (0-0.2) k/uL Sodium 135 L (137-145) mmol/L Potassium 4.7 (3.5-5.1) mmol/L Chloride 102 (98-107) mmol/L Carbon Dioxide 23 (22-30) mmol/L Anion Gap 10 mmol/L BUN 19 (9-20) mg/dL Creatinine 0.90 (0.66-1.25) mg/dL Est GFR (CKD-EPI)AfAm >90 (>60 ml/min/1.73 sqM) Est GFR (CKD-EPI)NonAf 83 (>60 ml/min/1.73 sqM) Glucose 94 (74-99) mg/dL Calcium 9.9 (8.4-10.2) mg/dL Magnesium 2.1 (1.6-2.3) mg/dL Total Bilirubin 0.6 (0.2-1.3) mg/dL AST 22 (17-59) U/L ALT 13 (4-49) U/L Alkaline Phosphatase 71 (38-126) U/L Total Protein 6.9 (6.3-8.2) g/dL Albumin 4.1 (3.5-5.0) g/dL Influenza Type A (PCR) Not Detected (Not Detectd) Influenza Type B (PCR) Not Detected (Not Detectd) RSV (PCR) Not Detected (Not Detectd) SARS-CoV-2 (PCR) Not Detected (Not Detectd) - EKG Data -: EKG Interpreted by Me EKG Comments: 12-lead Electrocardiogram Interpretation Note EKG was reviewed and interpreted by myself. 12-lead ECG performed at 1530 is interpreted by me as revealing normal sinus rhythm at a rate of 79 beats per minute. [place] is normal. MT interval is 182 ms, QRS duration is 82 ms, QTC is 442 ms per. There were no ST or T wave abnormalities to suggest myocardial ischemia or injury. R wave progression across the precordium was satisfactory. By my interpretation this EKG is non-diagnostic for acute ischemia. Disposition Clinical Impression: COPD exacerbation Disposition: HOME SELF-CARE Condition: Good Instructions (If sedation given, give patient instructions): COPD (Chronic Obstructive Pulmonary Disease) (ED) Prescriptions: predniSONE [Deltasone] 40 mg PO DAILY 5 Days #10 tab Albuterol Inhaler [Ventolin Hfa Inhaler] 1 puff INHALATION RT-QID #8 gm Is patient prescribed a controlled substance at d/c from ED?: No Referrals: Fernando Lambert Jr, [Primary Care Provider] - 1-2 days
[2020-12-17 16:49] LABS: Basophils % (A) 1 %; Eosinophils # (A) 0.6 k/uL (0-0.7); Eosinophils % (A) 8 %; HCT 44.2 % (39.0-53.0); HGB 14.8 gm/dL (13.0-17.5); Lymphocytes # (A) 1.6 k/uL (1.0-4.8); Lymphocytes % (A) 23 %; MCH 32.4 pg (25.0-35.0); MCHC 33.4 g/dL (31.0-37.0); MCV 97.1 fL (80.0-100.0); Mean Platelet Volume 7.8; Monocytes # (A) 0.6 k/uL (0-1.0); Monocytes % (A) 9 %; Neutrophils # (A) 3.9 k/uL (1.3-7.7); Neutrophils % (A) 56 %; Platelet Count 219 k/uL (150-450); RBC 4.55 m/uL (4.30-5.90); RDW 12.8 % (11.5-15.5); WBC 6.9 k/uL (3.8-10.6)
[2020-12-17 16:56] LABS: ALT 13 U/L (4-49); AST 22 U/L (17-59); African American GFR (CKD) >90 (>60 ml/min/1.73 sqM); Albumin 4.1 g/dL (3.5-5.0); Alkaline Phosphatase 71 U/L (38-126); Anion Gap 10 mmol/L; Blood Urea Nitrogen 19 mg/dL (9-20); Calcium 9.9 mg/dL (8.4-10.2); Carbon Dioxide 23 mmol/L (22-30); Chloride 102 mmol/L (98-107); Glucose 94 mg/dL (74-99); Magnesium 2.1 mg/dL (1.6-2.3); Non-African American GFR(CKD) 83 (>60 ml/min/1.73 sqM); Potassium 4.7 mmol/L (3.5-5.1); Sodium 135 mmol/L (137-145); Total Bilirubin 0.6 mg/dL (0.2-1.3); Total Protein 6.9 g/dL (6.3-8.2)
--- NOTE | 2020-12-17 17:00 | XR ---
EXAMINATION TYPE: XR chest 2V DATE OF EXAM: 12/17/2020 COMPARISON: 11/28/2020 HISTORY: Short of breath TECHNIQUE: FINDINGS: There is no heart failure nor confluent pneumonic infiltrate. There is some coarsening of i nterstitial markings. Heart size is normal. There is no pleural effusion. There is multilevel thoraci c and lumbar vertebroplasty noted. IMPRESSION: Mild pulmonary fibrosis. No acute lung disease. No change compared to old exam.
[2020-12-17 19:42] VITALS: BP 130/65; PULSE 82; RESP 16
== END 2020-12-17 20:03 | disposition home or self-care (01) ==
LOC: EC 15:06
DX: J44.1 Chronic obstructive pulmonary disease with (acute) exacerbation (principal); I48.0 Paroxysmal atrial fibrillation; N40.0 Benign prostatic hyperplasia without lower urinary tract symptoms; F17.210 Nicotine dependence, cigarettes, uncomplicated; Z79.01 Long term (current) use of anticoagulants; Z79.51 Long term (current) use of inhaled steroids; Z79.52 Long term (current) use of systemic steroids; Z79.899 Other long term (current) drug therapy; Z88.8 Allergy status to other drugs, medicaments and biological substances; Z91.040 Latex allergy status; Z20.822 Contact with and (suspected) exposure to COVID-19
CPT/HCPCS: 36415; 94640 ×2; 93005; 80053; 83735; 85025; 87636; 71046; 99285; 96365; 96375; J2930; J3475

== ENCOUNTER 2021-01-01 11:19 | Emergency (ER) | payer MEDICARE ==
[2021-01-01 11:25] VITALS: TEMP 99.2
[2021-01-01] MEDS ORDERED: IPRATROPIUM-ALBUTEROL 3 ML NEB INHALATION STA (11:31)
[2021-01-01] MEDS ORDERED: methylPREDNISolone SOD SUCCI 125 MG/2 ML VIAL IV STA (11:31)
--- NOTE | 2021-01-01 11:37 | ED ---
General Adult HPI - General Chief complaint: Shortness of Breath Stated complaint: SOB Time Seen by Provider: 01/01/21 11:26 Source: patient, family, RN notes reviewed, old records reviewed Mode of arrival: ambulatory Limitations: no limitations - History of Present Illness Initial comments: 75-year-old male, alert and oriented 4, presents to the emergency room with his family member complaining of 3 days of worsening shortness of breath. Patient states that he's been using his albuterol with no relief. He does have a history of COPD and atrial fibrillation. He states he is a pack-a-day smoker. Patient states that he had [address] to the ER today but also did a breathing treatment with no relief. He states he just finished antibiotics for a prostate problem. He states he sees Dr. Josue in [place] for that. He denies any chest pain, fevers or nausea and vomiting. States he had Covid in June of this year. -: days(s) (3) Severity scale (1-10): 0 Associated Symptoms: cough, shortness of breath Treatments Prior to Arrival: other (albuterol) - Related Data Home Medications Medication Instructions Recorded Confirmed Tamsulosin HCl [Flomax] 0.4 mg PO BID 03/24/18 01/01/21 Apixaban [Eliquis] 5 mg PO BID 09/14/18 01/01/21 Metoprolol Tartrate [Lopressor] 50 mg PO BID 02/04/19 01/01/21 Ergocalciferol [Vitamin D2 1,250 mcg PO GROVES 05/05/19 01/01/21 (DRISDOL)] Finasteride [Proscar] 5 mg PO DAILY 05/05/19 01/01/21 Alendronate Sodium [Fosamax] 70 mg PO GROVES 08/21/19 01/01/21 Budesonide/Formoterol Fumarate 2 puff INHALATION RT-BID 05/21/20 01/01/21 [Symbicort 160-4.5 Mcg Inhaler] Acetaminophen Tab [Tylenol Tab] 500 mg PO Q6H PRN 09/23/20 01/01/21 Ipratropium-Albuterol Nebulize 3 ml INHALATION RT-Q4H PRN 09/23/20 01/01/21 [Duoneb 0.5 mg-3 mg/3 ml Soln] Umeclidinium [place] [Incruse 1 puff INHALATION RT-DAILY 09/23/20 01/01/21 Ellipta] polyethylene glycoL 3350 [Miralax] 17 gm PO DAILY 09/23/20 01/01/21 Previous Rx's Medication Instructions Recorded Albuterol Inhaler [Ventolin Hfa 1 puff INHALATION RT-QID #8 gm 12/17/20 Inhaler] predniSONE 50 mg PO DAILY #5 tab 01/01/21 Allergies Allergy/AdvReac Type Severity Reaction Status Date / Time Iodinated Contrast Media Allergy Rash/Hives Verified 01/01/21 13:32 [Iodinated Contrast- Oral and IV Dye] latex Allergy Rash/Hives Verified 01/01/21 13:32 Review of Systems ROS Statement: Those systems with pertinent positive or pertinent negative responses have been documented in the HPI. ROS Other: All systems not noted in ROS Statement are negative. Past Medical History Past Medical History: Atrial Flutter, COPD Additional Past Medical History / Comment(s): Paroxysmal Afib, bronchitis, pulmonary nodules/negative pet scan, BPH, constipation, vertigo, chronic low back pain/DDD. covid 06/22 History of Any Multi-Drug Resistant Organisms: None Reported Past Surgical History: Back Surgery Additional Past Surgical History / Comment(s): Bilateral cataract removals-lens implants, colonoscopy, multiple kyphoplasties. Past Anesthesia/Blood Transfusion Reactions: No Reported Reaction Additional Past Anesthesia/Blood Transfusion Reaction / Comment(s): Has never received any blood transfusions. Past Psychological History: No Psychological Hx Reported Smoking Status: Current every day smoker Past Alcohol Use History: None Reported Past Drug Use History: None Reported - Past Family History Mother Family Medical History: AFIB, Dementia Father Family Medical History: Myocardial Infarction ([place]) Additional Family Medical History / Comment(s): in his 70's [place] General Exam Limitations: no limitations General appearance: alert, in no apparent distress Head exam: Present: atraumatic, normocephalic, normal inspection Eye exam: Present: normal appearance, EOMI ENT exam: Present: normal exam, normal oropharynx, mucous membranes moist Neck exam: Present: normal inspection, full ROM. Absent: tenderness, meningismus, lymphadenopathy, thyromegaly Respiratory exam: Present: wheezes, rhonchi. Absent: chest wall tenderness, decreased breath sounds Cardiovascular Exam: Present: regular rate, normal rhythm, normal heart sounds. Absent: systolic murmur, diastolic murmur, rubs, gallop, clicks GI/Abdominal exam: Present: soft, normal bowel sounds. Absent: distended, tenderness, guarding, rebound, rigid Extremities exam: Present: full ROM, normal capillary refill. Absent: tenderness, pedal edema Neurological exam: Present: alert, oriented X3 Psychiatric exam: Present: normal affect, normal mood Skin exam: Present: warm, dry, intact, normal color. Absent: rash, cyanosis, diaphoretic Course Vital Signs 01/01/21 01/01/21 01/01/21 11:23 11:44 11:54 Temperature 99.2 F Pulse Rate 85 80 85 Respiratory 20 Rate Blood Pressure 139/85 O2 Sat by Pulse 93 L Oximetry 01/01/21 01/01/21 13:30 13:49 Temperature Pulse Rate 76 81 Respiratory Rate Blood Pressure O2 Sat by Pulse Oximetry EKG Findings - EKG Results: EKG: sinus rhythm (Ventricular rate 80, CO interval 0.182, QRS 0.82, QTC 0.442 ; sinus rhythm) Medical Decision Making - Medical Decision Making Chest x-ray shows interstitial lung disease consistent with COPD. There is no evidence of pleural effusion. He has been afebrile. There is no evidence of leukocytosis. EKG shows normal sinus rhythm, troponin is negative at 0.012. He is vaccinated against coronavirus. This is likely patient's exacerbation of COPD. He was given 2 breathing treatments and steroids in the emergency room. He is ambulatory with steady gait. Oxygen saturation is 97% on room air. I'll prescribe him prednisone to take for the next 5 days. Follow up with his primary care doctor next week and return to the emergency room with any new or worsening symptoms. Case discussed with Dr. Toussaint. - Lab Data Result diagrams: 01/01/21 11:59 01/01/21 11:59 Lab Results 01/01/21 01/01/21 01/01/21 Range/Units 11:59 11:59 11:59 WBC 8.5 (3.8-10.6) k/uL RBC 4.25 L (4.30-5.90) m/uL Hgb 13.9 (13.0-17.5) gm/dL Hct 41.0 (39.0-53.0) % MCV 96.3 (80.0-100.0) fL MCH 32.7 (25.0-35.0) pg MCHC 34.0 (31.0-37.0) g/dL RDW 12.3 (11.5-15.5) % Plt Count 248 (150-450) k/uL MPV 7.4 Neutrophils % 71 % Lymphocytes % 16 % Monocytes % 5 % Eosinophils % 5 % Basophils % 1 % Neutrophils # 6.0 (1.3-7.7) k/uL Lymphocytes # 1.4 (1.0-4.8) k/uL Monocytes # 0.4 (0-1.0) k/uL Eosinophils # 0.4 (0-0.7) k/uL Basophils # 0.1 (0-0.2) k/uL PT 10.4 (9.0-12.0) sec INR 1.0 (<1.2) APTT 26.7 (22.0-30.0) sec D-Dimer 0.51 (<0.60) mg/L FEU Sodium 136 L (137-145) mmol/L Potassium 4.2 (3.5-5.1) mmol/L Chloride 105 (98-107) mmol/L Carbon Dioxide 23 (22-30) mmol/L Anion Gap 8 mmol/L BUN 18 (9-20) mg/dL Creatinine 0.86 (0.66-1.25) mg/dL Est GFR (CKD-EPI)AfAm >90 (>60 ml/min/1.73 sqM) Est GFR (CKD-EPI)NonAf 85 (>60 ml/min/1.73 sqM) Glucose 101 H (74-99) mg/dL Plasma Lactic Acid Santi (0.7-2.0) mmol/L Calcium 9.4 (8.4-10.2) mg/dL Magnesium 2.1 (1.6-2.3) mg/dL Total Bilirubin 0.5 (0.2-1.3) mg/dL AST 20 (17-59) U/L ALT 15 (4-49) U/L Alkaline Phosphatase 68 (38-126) U/L Troponin I (0.000-0.034) ng/mL Total Protein 6.5 (6.3-8.2) g/dL Albumin 3.7 (3.5-5.0) g/dL 01/01/21 01/01/21 Range/Units 11:59 11:59 WBC (3.8-10.6) k/uL RBC (4.30-5.90) m/uL Hgb (13.0-17.5) gm/dL Hct (39.0-53.0) % MCV (80.0-100.0) fL MCH (25.0-35.0) pg MCHC (31.0-37.0) g/dL RDW (11.5-15.5) % Plt Count (150-450) k/uL MPV Neutrophils % % Lymphocytes % % Monocytes % % Eosinophils % % Basophils % % Neutrophils # (1.3-7.7) k/uL Lymphocytes # (1.0-4.8) k/uL Monocytes # (0-1.0) k/uL Eosinophils # (0-0.7) k/uL Basophils # (0-0.2) k/uL PT (9.0-12.0) sec INR (<1.2) APTT (22.0-30.0) sec D-Dimer (<0.60) mg/L FEU Sodium (137-145) mmol/L Potassium (3.5-5.1) mmol/L Chloride (98-107) mmol/L Carbon Dioxide (22-30) mmol/L Anion Gap mmol/L BUN (9-20) mg/dL Creatinine (0.66-1.25) mg/dL Est GFR (CKD-EPI)AfAm (>60 ml/min/1.73 sqM) Est GFR (CKD-EPI)NonAf (>60 ml/min/1.73 sqM) Glucose (74-99) mg/dL Plasma Lactic Acid Santi 0.7 (0.7-2.0) mmol/L Calcium (8.4-10.2) mg/dL Magnesium (1.6-2.3) mg/dL Total Bilirubin (0.2-1.3) mg/dL AST (17-59) U/L ALT (4-49) U/L Alkaline Phosphatase (38-126) U/L Troponin I <0.012 (0.000-0.034) ng/mL Total Protein (6.3-8.2) g/dL Albumin (3.5-5.0) g/dL Disposition Clinical Impression: COPD exacerbation Disposition: HOME SELF-CARE Condition: Good Instructions (If sedation given, give patient instructions): COPD (Chronic Obstructive Pulmonary Disease) (ED) Additional Instructions: Take the prednisone as prescribed starting Saturday01/02/21. Continue your medications as previously prescribed for your COPD. Follow-up with your primary care doctor next week. Return to the emergency room with any new or worsening symptoms including chest pain, worsening shortness of breath or fevers. Prescriptions: predniSONE 50 mg PO DAILY #5 tab Is patient prescribed a controlled substance at d/c from ED?: No Referrals: Fernando Lambert Jr, [Primary Care Provider] - 1-2 days Time of Disposition: 13:44
[2021-01-01 12:09] LABS: Basophils # (A) 0.1 k/uL (0-0.2); Basophils % (A) 1 %; Eosinophils # (A) 0.4 k/uL (0-0.7); Eosinophils % (A) 5 %; HGB 13.9 gm/dL (13.0-17.5); Lymphocytes # (A) 1.4 k/uL (1.0-4.8); Lymphocytes % (A) 16 %; MCH 32.7 pg (25.0-35.0); MCV 96.3 fL (80.0-100.0); Mean Platelet Volume 7.4; Monocytes # (A) 0.4 k/uL (0-1.0); Monocytes % (A) 5 %; Neutrophils % (A) 71 %; Platelet Count 248 k/uL (150-450); RBC 4.25 m/uL (4.30-5.90); RDW 12.3 % (11.5-15.5); WBC 8.5 k/uL (3.8-10.6)
[2021-01-01 12:22] LABS: ALT 15 U/L (4-49); AST 20 U/L (17-59); African American GFR (CKD) >90 (>60 ml/min/1.73 sqM); Albumin 3.7 g/dL (3.5-5.0); Alkaline Phosphatase 68 U/L (38-126); Anion Gap 8 mmol/L; Blood Urea Nitrogen 18 mg/dL (9-20); Calcium 9.4 mg/dL (8.4-10.2); Carbon Dioxide 23 mmol/L (22-30); Chloride 105 mmol/L (98-107); Glucose 101 mg/dL (74-99); Magnesium 2.1 mg/dL (1.6-2.3); Non-African American GFR(CKD) 85 (>60 ml/min/1.73 sqM); Potassium 4.2 mmol/L (3.5-5.1); Sodium 136 mmol/L (137-145); Total Bilirubin 0.5 mg/dL (0.2-1.3); Total Protein 6.5 g/dL (6.3-8.2)
[2021-01-01 12:23] LABS: Partial Thromboplastin Time 26.7 sec (22.0-30.0); Prothrombin Time 10.4 sec (9.0-12.0)
--- NOTE | 2021-01-01 12:25 | XR ---
EXAMINATION TYPE: XR chest 2V DATE OF EXAM: 01/01/2021 COMPARISON: Chest x-ray 12/17/2020, CT 05/22/2018 HISTORY: Difficulty breathing TECHNIQUE: Frontal and lateral views of the chest are obtained. FINDINGS: The course interstitium is again noted. Multilevel vertebroplasty changes are present. The re is no evident pneumothorax or pleural effusion. Cardiac mediastinal silhouette is stable. IMPRESSION: Interstitial lung disease, emphysema.
[2021-01-01] MEDS ORDERED: ALBUTEROL NEBULIZED 2.5 MG/3 ML INHALATION STA (12:51)
[2021-01-01 14:25] VITALS: BP 122/84; PULSE 99; RESP 18
== END 2021-01-01 14:26 | disposition home or self-care (01) ==
LOC: EC 11:19
DX: J44.1 Chronic obstructive pulmonary disease with (acute) exacerbation (principal); I48.0 Paroxysmal atrial fibrillation; F17.210 Nicotine dependence, cigarettes, uncomplicated; Z79.01 Long term (current) use of anticoagulants; Z91.040 Latex allergy status; Z86.16 Personal history of COVID-19; Z79.51 Long term (current) use of inhaled steroids
CPT/HCPCS: 99285; 96374; 36415; 94640 ×2; 93005; 85379; 80053; 83605; 83735; 84484; 85025; 85610; 85730; 71046; J2930

== ENCOUNTER 2021-01-07 18:52 | Emergency (ER) | payer MEDICARE ==
[2021-01-07] MEDS ORDERED: methylPREDNISolone SOD SUCCI 125 MG/2 ML VIAL IV STA (19:14)
[2021-01-07] MEDS ORDERED: ALBUTEROL NEB (CONC) 2.5 MG/0.5 ML INHALATION STA (19:14)
[2021-01-07] MEDS ORDERED: IPRATROPIUM-ALBUTEROL 3 ML NEB INHALATION STA ×2 (19:14→23:00)
--- NOTE | 2021-01-07 19:49 | ED ---
SOB HPI - General Chief Complaint: Shortness of Breath Stated Complaint: SOB Time Seen by Provider: 01/07/21 19:04 Source: patient Mode of arrival: wheelchair Limitations: no limitations - History of Present Illness Initial Comments: 75-year-old male patient presents to the emergency department today for evaluation of increased shortness of breath. Patient states symptoms of worsening over the last 2 days. He does have history of COPD. States he did do 3 breathing treatments throughout the day today. States they're not helping at all. Patient is unable to ambulate without significant shortness of breath. Denies any chest pain. Does report a productive cough. Denies any fever or chills. Denies nausea, vomiting, chest pain, dizziness, weakness. States he might have slight increase in swelling to the lower extremities. Patient denies any recent rash, abdominal pain, diarrhea, constipation, back pain, numbness, tingling, hematuria, dysuria, urinary urgency, urinary frequency, headache, visual changes, or any other complaints. - Related Data Home Medications Medication Instructions Recorded Confirmed Tamsulosin HCl [Flomax] 0.4 mg PO BID 03/24/18 01/07/21 Apixaban [Eliquis] 5 mg PO BID 09/14/18 01/07/21 Metoprolol Tartrate [Lopressor] 50 mg PO BID 02/04/19 01/07/21 Ergocalciferol [Vitamin D2 1,250 mcg PO GROVES 05/05/19 01/07/21 (DRISDOL)] Finasteride [Proscar] 5 mg PO DAILY 05/05/19 01/07/21 Alendronate Sodium [Fosamax] 70 mg PO GROVES 08/21/19 01/07/21 Budesonide/Formoterol Fumarate 2 puff INHALATION RT-BID 05/21/20 01/07/21 [Symbicort 160-4.5 Mcg Inhaler] Acetaminophen Tab [Tylenol Tab] 500 mg PO Q6H PRN 09/23/20 01/07/21 Ipratropium-Albuterol Nebulize 3 ml INHALATION RT-Q4H PRN 09/23/20 01/07/21 [Duoneb 0.5 mg-3 mg/3 ml Soln] Umeclidinium [place] [Incruse 1 puff INHALATION RT-DAILY 09/23/20 01/07/21 Ellipta] polyethylene glycoL 3350 [Miralax] 17 gm PO DAILY 09/23/20 01/07/21 Previous Rx's Medication Instructions Recorded Albuterol Inhaler [Ventolin Hfa 1 puff INHALATION RT-QID #8 gm 12/17/20 Inhaler] Doxycycline [Vibramycin] 100 mg PO BID #14 capsule 01/07/21 predniSONE 50 mg PO DAILY #5 tablet 01/07/21 Allergies Allergy/AdvReac Type Severity Reaction Status Date / Time Iodinated Contrast Media Allergy Rash/Hives Verified 01/07/21 19:42 [Iodinated Contrast- Oral and IV Dye] latex Allergy Rash/Hives Verified 01/07/21 19:42 Review of Systems ROS Statement: Those systems with pertinent positive or pertinent negative responses have been documented in the HPI. ROS Other: All systems not noted in ROS Statement are negative. Past Medical History Past Medical History: Atrial Flutter, COPD Additional Past Medical History / Comment(s): Paroxysmal Afib, bronchitis, pulmonary nodules/negative pet scan, BPH, constipation, vertigo, chronic low back pain/DDD. covid 06/22 History of Any Multi-Drug Resistant Organisms: None Reported Past Surgical History: Back Surgery Additional Past Surgical History / Comment(s): Bilateral cataract removals-lens implants, colonoscopy, multiple kyphoplasties. Past Anesthesia/Blood Transfusion Reactions: No Reported Reaction Additional Past Anesthesia/Blood Transfusion Reaction / Comment(s): Has never received any blood transfusions. Past Psychological History: No Psychological Hx Reported Smoking Status: Current every day smoker Past Alcohol Use History: None Reported Past Drug Use History: None Reported - Past Family History Mother Family Medical History: AFIB, Dementia Father Family Medical History: Myocardial Infarction ([place]) Additional Family Medical History / Comment(s): in his 70's [place] General Exam Limitations: no limitations General appearance: alert, in no apparent distress, other (This is a well- developed, well-nourished adult male patient in no acute distress.) ENT exam: Present: normal exam, normal oropharynx, mucous membranes moist Respiratory exam: Present: respiratory distress (Mild), wheezes (Inspiratory and expiratory wheezing noted), accessory muscle use (Abdominal), other (Tachypnea). Absent: rales, rhonchi, stridor Cardiovascular Exam: Present: regular rate, normal rhythm, normal heart sounds. Absent: systolic murmur, diastolic murmur, rubs, gallop, clicks GI/Abdominal exam: Present: soft, normal bowel sounds. Absent: distended, tenderness, guarding, rebound, rigid Neurological exam: Present: alert, oriented X3, CN II-XII intact Psychiatric exam: Present: normal affect, normal mood Skin exam: Present: warm, dry, intact, normal color. Absent: rash Course Vital Signs 01/07/21 01/07/21 01/07/21 18:55 19:11 19:30 Temperature 98.1 F Pulse Rate 85 87 Respiratory 30 H Rate Blood Pressure 117/74 O2 Sat by Pulse 94 L 96 97 Oximetry 01/07/21 01/07/21 01/07/21 19:48 20:00 20:01 Temperature Pulse Rate 75 85 70 Respiratory Rate Blood Pressure 131/81 O2 Sat by Pulse 99 Oximetry 01/07/21 01/07/21 01/07/21 20:30 21:00 23:16 Temperature Pulse Rate 88 69 Respiratory Rate Blood Pressure 133/79 133/80 O2 Sat by Pulse 96 96 Oximetry 01/07/21 01/07/21 23:24 23:50 Temperature 97.9 F Pulse Rate 72 89 Respiratory 22 Rate Blood Pressure 133/88 O2 Sat by Pulse 95 Oximetry Medical Decision Making - Medical Decision Making 75-year-old male patient presents to the emergency department today for evaluation of increased shortness of breath cough. Physical examination did reveal inspiratory and expiratory wheezing. Did have accessory muscle use and tachypnea on arrival. Labs reviewed and were unremarkable. Mild elevation in BUN. Magnesium 2.4. Troponin was negative. EKG was unremarkable. He tested negative for COVID-19. He was given a DuoNeb breathing treatment with additional albuterol, IV dose of steroids. Upon reevaluation states he does feel somewhat better. He remains to. Did contact his primary care physician Dr. Lambert for admission, Dr. Lambert would like to attempt outpatient treatment at this time. Will give doxycycline and steroids. It was made clear to Dr. Lambert that this was his third visit recently for similar complaints, also discussed his respiratory status, labs, and vital signs. Patient was agreeable to discharge. He is instructed to follow-up with Dr. Lambert's office on Saturday, we discussed importance of follow-up and adhering to treatment plan. Return parameters were discussed in detail. Case discussed with my attending Dr. Garcia. - Lab Data Result diagrams: 01/07/21 19:44 01/07/21 19:44 Lab Results 01/07/21 01/07/21 01/07/21 Range/Units 19:44 19:44 19:44 WBC 7.7 (3.8-10.6) k/uL RBC 4.27 L (4.30-5.90) m/uL Hgb 13.8 (13.0-17.5) gm/dL Hct 41.4 (39.0-53.0) % MCV 96.8 (80.0-100.0) fL MCH 32.4 (25.0-35.0) pg MCHC 33.5 (31.0-37.0) g/dL RDW 12.3 (11.5-15.5) % Plt Count 252 (150-450) k/uL MPV 7.4 Neutrophils % 60 % Lymphocytes % 23 % Monocytes % 7 % Eosinophils % 8 % Basophils % 1 % Neutrophils # 4.6 (1.3-7.7) k/uL Lymphocytes # 1.7 (1.0-4.8) k/uL Monocytes # 0.5 (0-1.0) k/uL Eosinophils # 0.6 (0-0.7) k/uL Basophils # 0.1 (0-0.2) k/uL PT 10.2 (9.0-12.0) sec INR 0.9 (<1.2) APTT 24.8 (22.0-30.0) sec Sodium 136 L (137-145) mmol/L Potassium 4.7 (3.5-5.1) mmol/L Chloride 107 (98-107) mmol/L Carbon Dioxide 24 (22-30) mmol/L Anion Gap 5 mmol/L BUN 26 H (9-20) mg/dL Creatinine 0.87 (0.66-1.25) mg/dL Est GFR (CKD-EPI)AfAm >90 (>60 ml/min/1.73 sqM) Est GFR (CKD-EPI)NonAf 85 (>60 ml/min/1.73 sqM) Glucose 100 H (74-99) mg/dL Plasma Lactic Acid Santi (0.7-2.0) mmol/L Calcium 9.1 (8.4-10.2) mg/dL Magnesium 2.4 H (1.6-2.3) mg/dL Total Bilirubin 0.3 (0.2-1.3) mg/dL AST 20 (17-59) U/L ALT 15 (4-49) U/L Alkaline Phosphatase 60 (38-126) U/L Troponin I (0.000-0.034) ng/mL NT-Pro-B Natriuret Pep pg/mL Total Protein 6.1 L (6.3-8.2) g/dL Albumin 3.5 (3.5-5.0) g/dL Coronavirus (PCR) (Not Detectd) 01/07/21 01/07/21 01/07/21 Range/Units 19:44 19:44 19:44 WBC (3.8-10.6) k/uL RBC (4.30-5.90) m/uL Hgb (13.0-17.5) gm/dL Hct (39.0-53.0) % MCV (80.0-100.0) fL MCH (25.0-35.0) pg MCHC (31.0-37.0) g/dL RDW (11.5-15.5) % Plt Count (150-450) k/uL MPV Neutrophils % % Lymphocytes % % Monocytes % % Eosinophils % % Basophils % % Neutrophils # (1.3-7.7) k/uL Lymphocytes # (1.0-4.8) k/uL Monocytes # (0-1.0) k/uL Eosinophils # (0-0.7) k/uL Basophils # (0-0.2) k/uL PT (9.0-12.0) sec INR (<1.2) APTT (22.0-30.0) sec Sodium (137-145) mmol/L Potassium (3.5-5.1) mmol/L Chloride (98-107) mmol/L Carbon Dioxide (22-30) mmol/L Anion Gap mmol/L BUN (9-20) mg/dL Creatinine (0.66-1.25) mg/dL Est GFR (CKD-EPI)AfAm (>60 ml/min/1.73 sqM) Est GFR (CKD-EPI)NonAf (>60 ml/min/1.73 sqM) Glucose (74-99) mg/dL Plasma Lactic Acid Santi 1.1 (0.7-2.0) mmol/L Calcium (8.4-10.2) mg/dL Magnesium (1.6-2.3) mg/dL Total Bilirubin (0.2-1.3) mg/dL AST (17-59) U/L ALT (4-49) U/L Alkaline Phosphatase (38-126) U/L Troponin I <0.012 (0.000-0.034) ng/mL NT-Pro-B Natriuret Pep 35 pg/mL Total Protein (6.3-8.2) g/dL Albumin (3.5-5.0) g/dL Coronavirus (PCR) (Not Detectd) 01/07/21 Range/Units 19:45 WBC (3.8-10.6) k/uL RBC (4.30-5.90) m/uL Hgb (13.0-17.5) gm/dL Hct (39.0-53.0) % MCV (80.0-100.0) fL MCH (25.0-35.0) pg MCHC (31.0-37.0) g/dL RDW (11.5-15.5) % Plt Count (150-450) k/uL MPV Neutrophils % % Lymphocytes % % Monocytes % % Eosinophils % % Basophils % % Neutrophils # (1.3-7.7) k/uL Lymphocytes # (1.0-4.8) k/uL Monocytes # (0-1.0) k/uL Eosinophils # (0-0.7) k/uL Basophils # (0-0.2) k/uL PT (9.0-12.0) sec INR (<1.2) APTT (22.0-30.0) sec Sodium (137-145) mmol/L Potassium (3.5-5.1) mmol/L Chloride (98-107) mmol/L Carbon Dioxide (22-30) mmol/L Anion Gap mmol/L BUN (9-20) mg/dL Creatinine (0.66-1.25) mg/dL Est GFR (CKD-EPI)AfAm (>60 ml/min/1.73 sqM) Est GFR (CKD-EPI)NonAf (>60 ml/min/1.73 sqM) Glucose (74-99) mg/dL Plasma Lactic Acid Santi (0.7-2.0) mmol/L Calcium (8.4-10.2) mg/dL Magnesium (1.6-2.3) mg/dL Total Bilirubin (0.2-1.3) mg/dL AST (17-59) U/L ALT (4-49) U/L Alkaline Phosphatase (38-126) U/L Troponin I (0.000-0.034) ng/mL NT-Pro-B Natriuret Pep pg/mL Total Protein (6.3-8.2) g/dL Albumin (3.5-5.0) g/dL Coronavirus (PCR) Not Detected (Not Detectd) - EKG Data -: EKG Interpreted by Me EKG Comments: EKG obtained at 1950 shows normal sinus rhythm with a ventricular rate of 74, OK interval 184, QRS duration 74, QTC 387 QTC 421. No evidence of ST elevation or depression. - Radiology Data Radiology results: report reviewed, image reviewed Two-view x-ray of the chest is obtained. Report was reviewed in its entirety. Impression by Dr. Benedict shows pulmonary fibrotic changes. No heart failure pulmonary consolidation. No change. Disposition Clinical Impression: COPD exacerbation Disposition: HOME SELF-CARE Condition: Good Instructions (If sedation given, give patient instructions): COPD (Chronic Obstructive Pulmonary Disease) (ED) Additional Instructions: Do breathing treatments every 4 hours. Complete steroid and antibiotic prescription in full. Return to the emergency department immediately for any new, worsening, or concerning symptoms. Prescriptions: predniSONE 50 mg PO DAILY #5 tablet Doxycycline [Vibramycin] 100 mg PO BID #14 capsule Is patient prescribed a controlled substance at d/c from ED?: No Referrals: Fernando Lambert Jr, [Primary Care Provider] - 1-2 days Time of Disposition: 23:06
[2021-01-07 20:20] LABS: Basophils # (A) 0.1 k/uL (0-0.2); Basophils % (A) 1 %; Eosinophils # (A) 0.6 k/uL (0-0.7); Eosinophils % (A) 8 %; HCT 41.4 % (39.0-53.0); HGB 13.8 gm/dL (13.0-17.5); Lymphocytes # (A) 1.7 k/uL (1.0-4.8); Lymphocytes % (A) 23 %; MCH 32.4 pg (25.0-35.0); MCHC 33.5 g/dL (31.0-37.0); MCV 96.8 fL (80.0-100.0); Mean Platelet Volume 7.4; Monocytes # (A) 0.5 k/uL (0-1.0); Monocytes % (A) 7 %; Neutrophils # (A) 4.6 k/uL (1.3-7.7); Neutrophils % (A) 60 %; Platelet Count 252 k/uL (150-450); RBC 4.27 m/uL (4.30-5.90); RDW 12.3 % (11.5-15.5); WBC 7.7 k/uL (3.8-10.6)
[2021-01-07 20:31] LABS: INR 0.9 (<1.2); Partial Thromboplastin Time 24.8 sec (22.0-30.0); Prothrombin Time 10.2 sec (9.0-12.0)
[2021-01-07 20:37] LABS: ALT 15 U/L (4-49); AST 20 U/L (17-59); African American GFR (CKD) >90 (>60 ml/min/1.73 sqM); Albumin 3.5 g/dL (3.5-5.0); Alkaline Phosphatase 60 U/L (38-126); Anion Gap 5 mmol/L; Blood Urea Nitrogen 26 mg/dL (9-20); Calcium 9.1 mg/dL (8.4-10.2); Carbon Dioxide 24 mmol/L (22-30); Chloride 107 mmol/L (98-107); Glucose 100 mg/dL (74-99); Magnesium 2.4 mg/dL (1.6-2.3); Non-African American GFR(CKD) 85 (>60 ml/min/1.73 sqM); Potassium 4.7 mmol/L (3.5-5.1); Sodium 136 mmol/L (137-145); Total Bilirubin 0.3 mg/dL (0.2-1.3); Total Protein 6.1 g/dL (6.3-8.2)
--- NOTE | 2021-01-07 21:33 | XR ---
EXAMINATION TYPE: XR chest 2V DATE OF EXAM: 01/07/2021 COMPARISON: 01/01/2021 HISTORY: Difficulty breathing TECHNIQUE: 2 view FINDINGS: There is coarse interstitial density in the lungs. There is no heart failure. There is vert ebroplasty in the lower thoracic spine. There is multilevel lumbar vertebroplasty. There are no hilar masses. IMPRESSION: Pulmonary fibrotic changes. No heart failure or pulmonary consolidation no change.
[2021-01-07] MEDS ORDERED: DOXYCYCLINE 100 MG CAP PO STA (22:38)
[2021-01-08 00:02] VITALS: BP 133/88; PULSE 89; RESP 22; TEMP 97.9
== END 2021-01-07 23:51 | disposition home or self-care (01) ==
LOC: EC 18:52
DX: J44.1 Chronic obstructive pulmonary disease with (acute) exacerbation (principal); I48.0 Paroxysmal atrial fibrillation; F17.200 Nicotine dependence, unspecified, uncomplicated; Z79.01 Long term (current) use of anticoagulants; Z91.040 Latex allergy status; Z20.822 Contact with and (suspected) exposure to COVID-19
CPT/HCPCS: 99285; 96374; 36415; 94640 ×2; 93005; 83880; 80053; 83605; 83735; 84484; 85025; 85610; 85730; 87635; 71046; J2930

== ENCOUNTER 2021-01-24 17:59 | Emergency (ER) | payer MEDICARE ==
[2021-01-24 18:51] VITALS: RESP 18; TEMP 98.3
[2021-01-24 19:40] LABS: Basophils # (A) 0.1 k/uL (0-0.2); Basophils % (A) 1 %; Eosinophils # (A) 0.4 k/uL (0-0.7); Eosinophils % (A) 4 %; HGB 14.6 gm/dL (13.0-17.5); Lymphocytes # (A) 1.6 k/uL (1.0-4.8); Lymphocytes % (A) 17 %; MCHC 33.2 g/dL (31.0-37.0); MCV 96.4 fL (80.0-100.0); Mean Platelet Volume 8.1; Monocytes # (A) 0.7 k/uL (0-1.0); Monocytes % (A) 8 %; Neutrophils # (A) 6.2 k/uL (1.3-7.7); Neutrophils % (A) 67 %; Platelet Count 217 k/uL (150-450); RBC 4.57 m/uL (4.30-5.90); RDW 11.9 % (11.5-15.5); WBC 9.2 k/uL (3.8-10.6)
[2021-01-24 19:44] LABS: Prothrombin Time 10.9 sec (9.0-12.0)
[2021-01-24 19:50] LABS: Albumin 3.8 g/dL (3.5-5.0); Calcium 9.6 mg/dL (8.4-10.2); Potassium 4.3 mmol/L (3.5-5.1); Total Bilirubin 0.4 mg/dL (0.2-1.3); Total Protein 6.6 g/dL (6.3-8.2)
[2021-01-24] MEDS ORDERED: IPRATROPIUM-ALBUTEROL 3 ML NEB INHALATION STA (20:40)
[2021-01-24] MEDS ORDERED: ALBUTEROL NEB (CONC) 2.5 MG/0.5 ML INHALATION STA (20:40)
[2021-01-24] MEDS ORDERED: SODIUM CHLORIDE 0.9% 500 ML 500 ML IV ONE (22:16)
[2021-01-24 22:35] VITALS: BP 115/79
--- NOTE | 2021-01-24 22:43 | XR ---
EXAMINATION TYPE: XR chest 2V DATE OF EXAM: 01/24/2021 COMPARISON: 01/07/2021 HISTORY: Dizziness TECHNIQUE: 2 views FINDINGS: There is coarse interstitial density in the lungs. Heart size is normal. There are no hilar masses. There are chest leads. There is multilevel thoracic and lumbar vertebroplasty. IMPRESSION: Moderate interstitial infiltrates without change and consistent with bone with fibrosis. No pleural fluid or cardiomegaly seen to suggest heart failure.
[2021-01-25] MEDS ORDERED: IPRATROPIUM-ALBUTEROL 3 ML NEB INHALATION STA
[2021-01-25 00:20] VITALS: PULSE 88
[2021-01-25] MEDS ORDERED: methylPREDNISolone SOD SUCCI 125 MG/2 ML VIAL IV STA (00:25)
[2021-01-25] MEDS ORDERED: AZITHROMYCIN 500 MG TAB PO STA (00:28)
--- NOTE | 2021-01-25 00:29 | ED ---
Dizziness HPI - General Chief Complaint: Dizziness Stated Complaint: SOB,Headache,Dizziness Time Seen by Provider: 01/24/21 20:13 Source: patient Mode of arrival: wheelchair Limitations: no limitations - History of Present Illness Initial Comments: 75 year-old male patient presents for evaluation of dizziness. States he has been dizzy on and off for the last 2-3 days. States that whenever he stands up he feels dizzy and lightheaded. Reports intermittent numbness to the bilateral hands. Denies any arm or leg weakness. Denies any headache, blurred vision, or double vision. Denies any falls or head injuries. Does have COPD states that he missed his evening breathing treatment. He reports cough which is not unusual for him. Denies change in color to his sputum. Denies fever or chills. Patient denies any recent rash, abdominal pain, nausea, vomiting, diarrhea, constipation, back pain, numbness, tingling, hematuria, dysuria, urinary urgency, urinary frequency, or any other complaints. - Related Data Home Medications Medication Instructions Recorded Confirmed Tamsulosin HCl [Flomax] 0.4 mg PO BID 03/24/18 01/24/21 Apixaban [Eliquis] 5 mg PO BID 09/14/18 01/24/21 Metoprolol Tartrate [Lopressor] 50 mg PO BID 02/04/19 01/24/21 Ergocalciferol [Vitamin D2 1,250 mcg PO GROVES 05/05/19 01/24/21 (DRISDOL)] Finasteride [Proscar] 5 mg PO DAILY 05/05/19 01/24/21 Alendronate Sodium [Fosamax] 70 mg PO GROVSE 08/21/19 01/24/21 Budesonide/Formoterol Fumarate 2 puff INHALATION RT-BID 05/21/20 01/24/21 [Symbicort 160-4.5 Mcg Inhaler] Acetaminophen Tab [Tylenol Tab] 500 mg PO Q6H PRN 09/23/20 01/24/21 Ipratropium-Albuterol Nebulize 3 ml INHALATION RT-Q4H PRN 09/23/20 01/24/21 [Duoneb 0.5 mg-3 mg/3 ml Soln] Umeclidinium [place] [Incruse 1 puff INHALATION RT-DAILY 09/23/20 01/24/21 Ellipta] polyethylene glycoL 3350 [Miralax] 17 gm PO DAILY 09/23/20 01/24/21 Previous Rx's Medication Instructions Recorded Albuterol Inhaler [Ventolin Hfa 1 puff INHALATION RT-QID #8 gm 12/17/20 Inhaler] Azithromycin [Zithromax Z-pack (6 0 mg PO DIRECTED #6 tab 01/25/21 tabs)] predniSONE 50 mg PO DAILY #5 tablet 01/25/21 Allergies Allergy/AdvReac Type Severity Reaction Status Date / Time Iodinated Contrast Media Allergy Rash/Hives Verified 01/24/21 21:55 [Iodinated Contrast- Oral and IV Dye] latex Allergy Rash/Hives Verified 01/24/21 21:55 Review of Systems ROS Statement: Those systems with pertinent positive or pertinent negative responses have been documented in the HPI. ROS Other: All systems not noted in ROS Statement are negative. Past Medical History Past Medical History: Atrial Flutter, COPD Additional Past Medical History / Comment(s): Paroxysmal Afib, bronchitis, pulmonary nodules/negative pet scan, BPH, constipation, vertigo, chronic low back pain/DDD. covid 06/22 History of Any Multi-Drug Resistant Organisms: None Reported Past Surgical History: Back Surgery Additional Past Surgical History / Comment(s): Bilateral cataract removals-lens implants, colonoscopy, multiple kyphoplasties. Past Anesthesia/Blood Transfusion Reactions: No Reported Reaction Additional Past Anesthesia/Blood Transfusion Reaction / Comment(s): Has never received any blood transfusions. Past Psychological History: No Psychological Hx Reported Smoking Status: Current every day smoker Past Alcohol Use History: None Reported Past Drug Use History: None Reported - Past Family History Mother Family Medical History: AFIB, Dementia Father Family Medical History: Myocardial Infarction ([place]) Additional Family Medical History / Comment(s): in his 70's [place] General Exam Limitations: no limitations General appearance: alert, in no apparent distress, other (This is a well- developed, well-nourished elderly male patient in no acute distress.) Eye exam: Present: normal appearance, PERRL, EOMI. Absent: scleral icterus, conjunctival injection, nystagmus, periorbital swelling ENT exam: Present: normal exam, normal oropharynx, mucous membranes moist Respiratory exam: Present: wheezes (Expiratory wheezing in the posterior lung meyers). Absent: respiratory distress, rales, rhonchi, stridor Cardiovascular Exam: Present: regular rate, normal rhythm, normal heart sounds. Absent: systolic murmur, diastolic murmur, rubs, gallop, clicks GI/Abdominal exam: Present: soft, normal bowel sounds. Absent: distended, tenderness, guarding, rebound, rigid Neurological exam: Present: alert, oriented X3, CN II-XII intact Psychiatric exam: Present: normal affect, normal mood Skin exam: Present: warm, dry, intact, normal color. Absent: rash Course Vital Signs 01/24/21 01/24/21 01/24/21 18:47 20:53 21:03 Temperature 98.3 F Pulse Rate 82 84 76 Pulse Rate [ Sitting] Pulse Rate [ Standing] Pulse Rate [ Supine] Respiratory 18 Rate Blood Pressure 132/77 Blood Pressure [Sitting] Blood Pressure [Standing] Blood Pressure [Supine] O2 Sat by Pulse Oximetry 01/24/21 01/24/21 01/25/21 21:26 22:15 00:08 Temperature Pulse Rate 92 89 Pulse Rate [ 91 Sitting] Pulse Rate [ 92 Standing] Pulse Rate [ 84 Supine] Respiratory 18 Rate Blood Pressure 122/73 Blood Pressure 118/79 [Sitting] Blood Pressure 122/77 [Standing] Blood Pressure 115/79 [Supine] O2 Sat by Pulse 95 Oximetry 01/25/21 00:20 Temperature Pulse Rate 88 Pulse Rate [ Sitting] Pulse Rate [ Standing] Pulse Rate [ Supine] Respiratory Rate Blood Pressure Blood Pressure [Sitting] Blood Pressure [Standing] Blood Pressure [Supine] O2 Sat by Pulse Oximetry EKG Findings - EKG Comments: EKG Findings:: EKG obtained at 1859 shows normal sinus rhythm with a ventricular rate is 78, MS interval 188, QRS duration 82, QT 374, QTC 426. No evidence of ST elevation or depression. Medical Decision Making - Medical Decision Making 75-year-old male patient presents for evaluation of dizziness and shortness of breath. Does have history of COPD. Physical examination did reveal expiratory wheezing in the posterior lung meyers. Chest x-ray showed no new changes. He did feel better after 3 breathing treatments. His started on steroids and azithromycin. He is neurologically intact with no focal deficits. States dizziness is improved. He'll be discharged to follow-up with his primary care physician for recheck in 1-2 days. Return parameters were discussed in detail. He verbalizes understanding and agrees with this plan. Case discussed with my attending Dr. Martinez. - Lab Data Result diagrams: 01/24/21 19:10 01/24/21 19:10 Lab Results 01/24/21 01/24/21 01/24/21 Range/Units 19:10 19:10 19:10 WBC 9.2 (3.8-10.6) k/uL RBC 4.57 (4.30-5.90) m/uL Hgb 14.6 (13.0-17.5) gm/dL Hct 44.0 (39.0-53.0) % MCV 96.4 (80.0-100.0) fL MCH 32.0 (25.0-35.0) pg MCHC 33.2 (31.0-37.0) g/dL RDW 11.9 (11.5-15.5) % Plt Count 217 (150-450) k/uL MPV 8.1 Neutrophils % 67 % Lymphocytes % 17 % Monocytes % 8 % Eosinophils % 4 % Basophils % 1 % Neutrophils # 6.2 (1.3-7.7) k/uL Lymphocytes # 1.6 (1.0-4.8) k/uL Monocytes # 0.7 (0-1.0) k/uL Eosinophils # 0.4 (0-0.7) k/uL Basophils # 0.1 (0-0.2) k/uL PT 10.9 (9.0-12.0) sec INR 1.0 (<1.2) Sodium 136 L (137-145) mmol/L Potassium 4.3 (3.5-5.1) mmol/L Chloride 105 (98-107) mmol/L Carbon Dioxide 23 (22-30) mmol/L Anion Gap 8 mmol/L BUN 29 H (9-20) mg/dL Creatinine 0.96 (0.66-1.25) mg/dL Est GFR (CKD-EPI)AfAm 90 (>60 ml/min/1.73 sqM) Est GFR (CKD-EPI)NonAf 78 (>60 ml/min/1.73 sqM) Glucose 92 (74-99) mg/dL Calcium 9.6 (8.4-10.2) mg/dL Magnesium (1.6-2.3) mg/dL Total Bilirubin 0.4 (0.2-1.3) mg/dL AST 20 (17-59) U/L ALT 18 (4-49) U/L Alkaline Phosphatase 70 (38-126) U/L Troponin I (0.000-0.034) ng/mL Total Protein 6.6 (6.3-8.2) g/dL Albumin 3.8 (3.5-5.0) g/dL Urine Color Urine Appearance (Clear) Urine pH (5.0-8.0) Ur Specific [place] (1.001-1.035) Urine Protein (Negative) Urine Glucose (UA) (Negative) Urine Ketones (Negative) Urine Blood (Negative) Urine Nitrite (Negative) Urine Bilirubin (Negative) Urine Urobilinogen (<2.0) mg/dL Ur Leukocyte Esterase (Negative) Coronavirus (PCR) (Not Detectd) 01/24/21 01/24/21 01/24/21 Range/Units 19:10 21:20 21:20 WBC (3.8-10.6) k/uL RBC (4.30-5.90) m/uL Hgb (13.0-17.5) gm/dL Hct (39.0-53.0) % MCV (80.0-100.0) fL MCH (25.0-35.0) pg MCHC (31.0-37.0) g/dL RDW (11.5-15.5) % Plt Count (150-450) k/uL MPV Neutrophils % % Lymphocytes % % Monocytes % % Eosinophils % % Basophils % % Neutrophils # (1.3-7.7) k/uL Lymphocytes # (1.0-4.8) k/uL Monocytes # (0-1.0) k/uL Eosinophils # (0-0.7) k/uL Basophils # (0-0.2) k/uL PT (9.0-12.0) sec INR (<1.2) Sodium (137-145) mmol/L Potassium (3.5-5.1) mmol/L Chloride (98-107) mmol/L Carbon Dioxide (22-30) mmol/L Anion Gap mmol/L BUN (9-20) mg/dL Creatinine (0.66-1.25) mg/dL Est GFR (CKD-EPI)AfAm (>60 ml/min/1.73 sqM) Est GFR (CKD-EPI)NonAf (>60 ml/min/1.73 sqM) Glucose (74-99) mg/dL Calcium (8.4-10.2) mg/dL Magnesium 2.1 (1.6-2.3) mg/dL Total Bilirubin (0.2-1.3) mg/dL AST (17-59) U/L ALT (4-49) U/L Alkaline Phosphatase (38-126) U/L Troponin I <0.012 (0.000-0.034) ng/mL Total Protein (6.3-8.2) g/dL Albumin (3.5-5.0) g/dL Urine Color Urine Appearance (Clear) Urine pH (5.0-8.0) Ur Specific [place] (1.001-1.035) Urine Protein (Negative) Urine Glucose (UA) (Negative) Urine Ketones (Negative) Urine Blood (Negative) Urine Nitrite (Negative) Urine Bilirubin (Negative) Urine Urobilinogen (<2.0) mg/dL Ur Leukocyte Esterase (Negative) Coronavirus (PCR) Not Detected (Not Detectd) 01/25/21 Range/Units 00:06 WBC (3.8-10.6) k/uL RBC (4.30-5.90) m/uL Hgb (13.0-17.5) gm/dL Hct (39.0-53.0) % MCV (80.0-100.0) fL MCH (25.0-35.0) pg MCHC (31.0-37.0) g/dL RDW (11.5-15.5) % Plt Count (150-450) k/uL MPV Neutrophils % % Lymphocytes % % Monocytes % % Eosinophils % % Basophils % % Neutrophils # (1.3-7.7) k/uL Lymphocytes # (1.0-4.8) k/uL Monocytes # (0-1.0) k/uL Eosinophils # (0-0.7) k/uL Basophils # (0-0.2) k/uL PT (9.0-12.0) sec INR (<1.2) Sodium (137-145) mmol/L Potassium (3.5-5.1) mmol/L Chloride (98-107) mmol/L Carbon Dioxide (22-30) mmol/L Anion Gap mmol/L BUN (9-20) mg/dL Creatinine (0.66-1.25) mg/dL Est GFR (CKD-EPI)AfAm (>60 ml/min/1.73 sqM) Est GFR (CKD-EPI)NonAf (>60 ml/min/1.73 sqM) Glucose (74-99) mg/dL Calcium (8.4-10.2) mg/dL Magnesium (1.6-2.3) mg/dL Total Bilirubin (0.2-1.3) mg/dL AST (17-59) U/L ALT (4-49) U/L Alkaline Phosphatase (38-126) U/L Troponin I (0.000-0.034) ng/mL Total Protein (6.3-8.2) g/dL Albumin (3.5-5.0) g/dL Urine Color Yellow Urine Appearance Clear (Clear) Urine pH 5.5 (5.0-8.0) Ur Specific [place] 1.025 (1.001-1.035) Urine Protein Negative (Negative) Urine Glucose (UA) Negative (Negative) Urine Ketones Negative (Negative) Urine Blood Negative (Negative) Urine Nitrite Negative (Negative) Urine Bilirubin Negative (Negative) Urine Urobilinogen <2.0 (<2.0) mg/dL Ur Leukocyte Esterase Negative (Negative) Coronavirus (PCR) (Not Detectd) - Radiology Data Radiology results: report reviewed, image reviewed Two-view x-ray of the chest is obtained. Report was reviewed in its entirety. Impression by Dr. Benedict shows moderate interstitial infiltrates without changing consistent with Pulmonary fibrosis. No pleural fluid or cardiomegaly seen to suggest heart failure. Disposition Clinical Impression: COPD (chronic obstructive pulmonary disease), Dizziness Disposition: HOME SELF-CARE Condition: Good Instructions (If sedation given, give patient instructions): COPD (Chronic Obstructive Pulmonary Disease) (ED), Dizziness (ED) Additional Instructions: Take medications as directed. Follow-up with your primary care physician for recheck in 1-2 days. Return for any new, worsening, or concerning symptoms. Prescriptions: predniSONE 50 mg PO DAILY #5 tablet Azithromycin [Zithromax Z-pack (6 tabs)] 0 mg PO DIRECTED #6 tab Is patient prescribed a controlled substance at d/c from ED?: No Referrals: Fernando Lambert Jr, [Primary Care Provider] - 1-2 days Time of Disposition: 00:49
[2021-01-25 01:02] LABS: Appearance,Urine Clear (Clear); Bilirubin,Urine Negative (Negative); Blood,Urine Negative (Negative); Color,Urine Yellow; Glucose,Urine (UA) Negative (Negative); Ketones,Urine Negative (Negative); Leukocyte Esterase,Urine Negative (Negative); Nitrite,Urine Negative (Negative); PH, Urine 5.5 (5.0-8.0); Protein,Urine Negative (Negative); Specific Gravity,Urine 1.025 (1.001-1.035); Urobilinogen,Urine <2.0 mg/dL (<2.0)
== END 2021-01-25 01:54 | disposition home or self-care (01) ==
LOC: EC 17:59
DX: J44.9 Chronic obstructive pulmonary disease, unspecified (principal); R42 Dizziness and giddiness; Z20.822 Contact with and (suspected) exposure to COVID-19; I48.92 Unspecified atrial flutter; N40.0 Benign prostatic hyperplasia without lower urinary tract symptoms; F17.200 Nicotine dependence, unspecified, uncomplicated; Z79.52 Long term (current) use of systemic steroids; Z79.51 Long term (current) use of inhaled steroids; Z79.01 Long term (current) use of anticoagulants; Z79.899 Other long term (current) drug therapy
CPT/HCPCS: 36415; 94640 ×2; 93005; 80053; 83735; 84484; 85025; 85610; 81003; 87635; 71046; 99284; 96374; 96361 ×2; J2930

== ENCOUNTER 2021-02-07 06:17 | Emergency (ER) | payer MEDICARE ==
--- NOTE | 2021-02-07 07:13 | ED ---
General Adult HPI - General Chief complaint: Urogenital Stated complaint: Painful urination Time Seen by Provider: 02/07/21 06:25 Source: patient Mode of arrival: ambulatory Limitations: no limitations - History of Present Illness Initial comments: 75-year-old male presents to the emergency room for penile pain. Patient has had pain with urination and penile pain ever since he had a surgery from a urologist in [place] on February 02. States it is painful to urinate and sometimes difficulty urinating. Patient had a UroLift procedure for an enlarged prostate. He has been on Cipro since that time as well. - Related Data Home Medications Medication Instructions Recorded Confirmed Tamsulosin HCl [Flomax] 0.4 mg PO BID 03/24/18 01/24/21 Apixaban [Eliquis] 5 mg PO BID 09/14/18 01/24/21 Metoprolol Tartrate [Lopressor] 50 mg PO BID 02/04/19 01/24/21 Ergocalciferol [Vitamin D2 1,250 mcg PO GROVES 05/05/19 01/24/21 (DRISDOL)] Finasteride [Proscar] 5 mg PO DAILY 05/05/19 01/24/21 Alendronate Sodium [Fosamax] 70 mg PO GROVES 08/21/19 01/24/21 Budesonide/Formoterol Fumarate 2 puff INHALATION RT-BID 05/21/20 01/24/21 [Symbicort 160-4.5 Mcg Inhaler] Acetaminophen Tab [Tylenol Tab] 500 mg PO Q6H PRN 09/23/20 01/24/21 Ipratropium-Albuterol Nebulize 3 ml INHALATION RT-Q4H PRN 09/23/20 01/24/21 [Duoneb 0.5 mg-3 mg/3 ml Soln] Umeclidinium [place] [Incruse 1 puff INHALATION RT-DAILY 09/23/20 01/24/21 Ellipta] polyethylene glycoL 3350 [Miralax] 17 gm PO DAILY 09/23/20 01/24/21 Previous Rx's Medication Instructions Recorded Albuterol Inhaler [Ventolin Hfa 1 puff INHALATION RT-QID #8 gm 12/17/20 Inhaler] Azithromycin [Zithromax Z-pack (6 0 mg PO DIRECTED #6 tab 01/25/21 tabs)] predniSONE 50 mg PO DAILY #5 tablet 01/25/21 Cefdinir [Omnicef] 300 mg PO Q12HR #20 capsule 02/07/21 Allergies Allergy/AdvReac Type Severity Reaction Status Date / Time Iodinated Contrast Media Allergy Rash/Hives Verified 02/07/21 06:24 [Iodinated Contrast- Oral and IV Dye] latex Allergy Rash/Hives Verified 02/07/21 06:24 Review of Systems ROS Statement: Those systems with pertinent positive or pertinent negative responses have been documented in the HPI. ROS Other: All systems not noted in ROS Statement are negative. Past Medical History Past Medical History: Atrial Flutter, COPD Additional Past Medical History / Comment(s): Paroxysmal Afib, bronchitis, pulmonary nodules/negative pet scan, BPH, constipation, vertigo, chronic low back pain/DDD. covid 06/22 History of Any Multi-Drug Resistant Organisms: None Reported Past Surgical History: Back Surgery Additional Past Surgical History / Comment(s): Bilateral cataract removals-lens implants, colonoscopy, multiple kyphoplasties. Past Anesthesia/Blood Transfusion Reactions: No Reported Reaction Additional Past Anesthesia/Blood Transfusion Reaction / Comment(s): Has never received any blood transfusions. Past Psychological History: No Psychological Hx Reported Smoking Status: Current every day smoker Past Alcohol Use History: None Reported Past Drug Use History: None Reported - Past Family History Mother Family Medical History: AFIB, Dementia Father Family Medical History: Myocardial Infarction ([place]) Additional Family Medical History / Comment(s): in his 70's [place] General Exam Limitations: no limitations General appearance: alert, in no apparent distress Head exam: Present: atraumatic Eye exam: Present: normal appearance, PERRL, EOMI. Absent: scleral icterus, conjunctival injection ENT exam: Present: normal exam, mucous membranes moist Neck exam: Present: normal inspection, full ROM. Absent: tenderness Respiratory exam: Present: normal lung sounds bilaterally. Absent: respiratory distress, wheezes Cardiovascular Exam: Present: regular rate, normal rhythm, normal heart sounds GI/Abdominal exam: Present: soft, normal bowel sounds. Absent: distended, tenderness Course Vital Signs 02/07/21 02/07/21 02/07/21 06:18 08:12 08:18 Temperature 98.0 F Pulse Rate 95 83 85 Respiratory 18 18 16 Rate Blood Pressure 156/82 O2 Sat by Pulse 95 Oximetry Medical Decision Making - Medical Decision Making Urinalysis shows 10 white blood cells with rare bacteria. Patient currently on Cipro. Post void residual 253. Case was discussed with patient's urologist Dr. Davidson. He recommends starting Cefdinir 300mg BIDx10 days. Patient can resume his Flomax and other medications. He recommends placing a Munoz catheter for a few days. States patient can either follow-up with him or he can teach patient how to remove catheter himself. - Lab Data Lab Results 02/07/21 Range/Units 06:44 Urine Color Yellow Urine Appearance Clear (Clear) Urine pH 7.0 (5.0-8.0) Ur Specific [place] 1.010 (1.001-1.035) Urine Protein Negative (Negative) Urine Glucose (UA) Negative (Negative) Urine Ketones Negative (Negative) Urine Blood Negative (Negative) Urine Nitrite Negative (Negative) Urine Bilirubin Negative (Negative) Urine Urobilinogen <2.0 (<2.0) mg/dL Ur Leukocyte Esterase Small H (Negative) Urine RBC 3 (0-5) /hpf Urine WBC 10 H (0-5) /hpf Ur Squamous Epith Cells <1 (0-4) /hpf Urine Bacteria Rare H (None) /hpf Urine Mucus Rare H (None) /hpf Disposition Clinical Impression: Postprocedural urinary retention, UTI (urinary tract infection) Disposition: HOME SELF-CARE Condition: Good Instructions (If sedation given, give patient instructions): Urinary Tract Infection in Men (ED) Additional Instructions: Please take antibiotic as directed. You can either remove Munoz catheter herself in 3 days or follow-up with your urologist for removal. Return to the emergency room for any worsening symptoms. Prescriptions: Cefdinir [Omnicef] 300 mg PO Q12HR #20 capsule Is patient prescribed a controlled substance at d/c from ED?: No Referrals: Fernando Lambert Jr, DO [Primary Care Provider] - 1-2 days Time of Disposition: 09:13
[2021-02-07 07:15] LABS: Appearance,Urine Clear (Clear); Bacteria,Urine Rare /hpf; Bilirubin,Urine Negative (Negative); Blood,Urine Negative (Negative); Color,Urine Yellow; Glucose,Urine (UA) Negative (Negative); Ketones,Urine Negative (Negative); Leukocyte Esterase,Urine Small (Negative); Mucus,Urine Rare /hpf; Nitrite,Urine Negative (Negative); Protein,Urine Negative (Negative); RBC,Urine 3 /hpf (0-5); Squamous Epithelial Cell,Urine <1 /hpf (0-4); Urobilinogen,Urine <2.0 mg/dL (<2.0); WBC,Urine 10 /hpf (0-5)
[2021-02-07] MEDS ORDERED: MORPHINE SULFATE 4 MG/ML SYRINGE IM STA (07:23)
[2021-02-07] MEDS ORDERED: IPRATROPIUM-ALBUTEROL 3 ML NEB INHALATION STA (08:07)
[2021-02-07 08:19] VITALS: RESP 16
[2021-02-07] MEDS ORDERED: CEFDINIR 300 MG CAP PO STA (09:09)
[2021-02-07] MEDS ORDERED: ACET/COD 300 MG/30 MG STARTER PACK 6 TAB BTL PO STA (09:58)
[2021-02-07 10:10] VITALS: BP 142/88; PULSE 77; TEMP 97.6
== END 2021-02-07 10:11 | disposition home or self-care (01) ==
LOC: EC 06:17
DX: N39.0 Urinary tract infection, site not specified (principal); R33.8 Other retention of urine; J44.9 Chronic obstructive pulmonary disease, unspecified; I48.92 Unspecified atrial flutter; F17.200 Nicotine dependence, unspecified, uncomplicated; Z79.52 Long term (current) use of systemic steroids; Z79.51 Long term (current) use of inhaled steroids; Z79.01 Long term (current) use of anticoagulants; Z79.899 Other long term (current) drug therapy
CPT/HCPCS: 94640; 81001; 51702; 99283; 96372; J2270

== ENCOUNTER → 2021-02-21 | Outpatient (CLI) | payer MEDICARE ==
[2021-02-21 21:22] LABS: Calcium 10.1 mg/dL (8.7-10.3)
== END | disposition home or self-care (01) ==
LOC: LABWHC1 12:26
PROVIDERS: ATTEND Psychiatry & Neurology Neurology
DX: G62.9 Polyneuropathy, unspecified (principal); R26.0 Ataxic gait; Z79.899 Other long term (current) drug therapy
CPT/HCPCS: 36415; 82306; 82310; 82607; 83036

== ENCOUNTER 2021-03-01 19:51 | Emergency (ER) | payer MEDICARE ==
--- NOTE | 2021-03-01 20:12 | ED ---
Neuro HPI - General Chief Complaint: Neuro Symptoms/Deficit Stated Complaint: R Side Numbness Time Seen by Provider: 03/01/21 20:11 Source: patient, family Mode of arrival: wheelchair Limitations: no limitations - History of Present Illness Is the patient presenting with stroke symptoms?: No Initial Comments: Shawn is a 75-year-old gentleman severe COPD very well-known to our ER for his frequent visits. Patient presents today with a complaint of right arm and leg tingling. Patient reports that he had an outpatient MRI today to evaluate for hydrocephalus which is being followed by Dr. Long his neurologist. Patient states that he did have a long drive home and he was experiencing some tingling sensation in his right arm and leg. No headache, no vision change no trouble with speech or swallowing. No facial droop. No weakness in the extremities. Numbness and tingling resolved prior to arrival in the emergency department. - Related Data Home Medications: Home Medications Medication Instructions Recorded Confirmed RX: Tamsulosin HCl [Flomax] 0.4 mg PO BID 03/24/18 01/24/21 RX: Apixaban [Eliquis] 5 mg PO BID 09/14/18 01/24/21 RX: Metoprolol Tartrate [Lopressor] 50 mg PO BID 02/04/19 01/24/21 RX: Ergocalciferol [Vitamin D2 1,250 mcg PO GROVES 05/05/19 01/24/21 (DRISDOL)] RX: Finasteride [Proscar] 5 mg PO DAILY 05/05/19 01/24/21 RX: Alendronate Sodium [Fosamax] 70 mg PO GROVES 08/21/19 01/24/21 RX: Budesonide/Formoterol Fumarate 2 puff INHALATION RT-BID 05/21/20 01/24/21 [Symbicort 160-4.5 Mcg Inhaler] Acetaminophen Tab [Tylenol Tab] 500 mg PO Q6H PRN 09/23/20 01/24/21 Ipratropium-Albuterol Nebulize 3 ml INHALATION RT-Q4H PRN 09/23/20 01/24/21 [Duoneb 0.5 mg-3 mg/3 ml Soln] Umeclidinium [place] [Incruse 1 puff INHALATION RT-DAILY 09/23/20 01/24/21 Ellipta] polyethylene glycoL 3350 [Miralax] 17 gm PO DAILY 09/23/20 01/24/21 Previous Rx's Medication Instructions Recorded RX: Albuterol Inhaler [Ventolin 1 puff INHALATION RT-QID #8 gm 12/17/20 Hfa Inhaler] RX: Azithromycin [Zithromax Z-pack 0 mg PO DIRECTED #6 tab 01/25/21 (6 tabs)] RX: predniSONE 50 mg PO DAILY #5 tablet 01/25/21 RX: Cefdinir [Omnicef] 300 mg PO Q12HR #20 capsule 02/07/21 Allergies/Adverse Reactions: Allergies Allergy/AdvReac Type Severity Reaction Status Date / Time Iodinated Contrast Media Allergy Rash/Hives Verified 03/01/21 20:00 [Iodinated Contrast- Oral and IV Dye] latex Allergy Rash/Hives Verified 03/01/21 20:00 Review of Systems ROS Statement: Those systems with pertinent positive or pertinent negative responses have been documented in the HPI. ROS Other: All systems not noted in ROS Statement are negative. General Exam - General Exam Comments Initial Comments: Physical Exam GENERAL: Patient is well-developed and well-nourished. Patient is nontoxic and well-hydrated and is in no distress. HENT: Normocephalic, Atraumatic. EYES: PERRL, EOMI PULMONARY: Unlabored respirations. CARDIOVASCULAR: RRR Warm and well perfused extremities ABDOMEN: Non-distended SKIN: No rashes or bruising : Deferred NEUROLOGIC: Alert and oriented Normal speech Cranial nerves II through XII grossly intact NIH 0 MUSCULOSKELETAL: Moving all extremities with no apparent injury PSYCHIATRIC: No SI/HI Limitations: no limitations Stroke MDM - NIH Stroke Scale 1a. Level of Consciousness: (0) alert 1b. LOC Questions: (0) answers correctly 1c. LOC Commands: (0) performs tasks correctly 2. Best Gaze: (0) normal 3. Visual: (0) no visual loss 4. Facial Palsy: (0) normal symmetrical movement 5a. Motor Arm Left: (0) no drift 5b. Motor Arm Right: (0) no drift 6a. Motor Leg Left: (0) no drift 6b. Motor Leg Right: (0) no drift 7. Limb Ataxia: (0) absent 8. Sensory: (0) normal 9. Best Language: (0) no aphasia 10. Dysarthria: (0) normal 11. Extinction/Inattention: (0) no abnormality - Medical Decision Making Patient was seen and evaluated in triage, patient was subjective numbness and tingling on the right, no weakness no objective findings NIH is 0. Head CT was obtained patient has chronic hydrocephalus no acute changes. There are evidence of chronic ischemic changes. Patient was treated with one aspirin. Patient does have good follow-up with neurology. Patient will be discharged home for outpatient management. - EKG Data -: EKG Interpreted by Me EKG shows normal: sinus rhythm Rate: normal EKG was obtained as part of the TIA workup, EKG obtained at 2004 rate is 86 rhythm is sinus, axis normal intervals no acute ST elevations or depressions no evidence of ischemia or infarction 03/01/21 23:04 Past Medical History Past Medical History: Atrial Flutter, COPD Additional Past Medical History / Comment(s): Paroxysmal Afib, bronchitis, pulmonary nodules/negative pet scan, BPH, constipation, vertigo, chronic low back pain/DDD. covid 06/22 History of Any Multi-Drug Resistant Organisms: None Reported Past Surgical History: Back Surgery Additional Past Surgical History / Comment(s): Bilateral cataract removals-lens implants, colonoscopy, multiple kyphoplasties. Past Anesthesia/Blood Transfusion Reactions: No Reported Reaction Additional Past Anesthesia/Blood Transfusion Reaction / Comment(s): Has never received any blood transfusions. Past Psychological History: No Psychological Hx Reported Smoking Status: Current every day smoker Past Alcohol Use History: None Reported Past Drug Use History: None Reported - Past Family History Mother Family Medical History: AFIB, Dementia Father Family Medical History: Myocardial Infarction ([place]) Additional Family Medical History / Comment(s): in his 70's [place] Course Vital Signs 03/01/21 03/01/21 19:54 22:18 Temperature 97 F L 97.8 F Pulse Rate 86 79 Respiratory 22 Rate Blood Pressure 137/79 112/71 O2 Sat by Pulse 96 95 Oximetry Disposition Clinical Impression: Right sided numbness Disposition: HOME SELF-CARE Condition: Stable Additional Instructions: Follow up with Dr Long Return to the ER immediately for any new or concerning symptoms Is patient prescribed a controlled substance at d/c from ED?: No Referrals: Fernando Lambert Jr, [Primary Care Provider] - 1-2 days
--- NOTE | 2021-03-01 21:08 | CT ---
EXAMINATION TYPE: CT brain wo con DATE OF EXAM: 03/01/2021 COMPARISON: 11/24/2018 HISTORY: RT side numbness, transient, resolved. TECHNIQUE: CT scan of the head performed without contrast CT DLP: 1059.4 mGycm Automated exposure control for dose reduction was used. FINDINGS: NO ACUTE INTRACRANIAL HEMORRHAGE, MIDLINE SHIFT OR MASS EFFECT SEEN. CHAHAL-WHITE MATTER DIFFERENTIATION IS PRESERVED. PROMINENT CSF SPACES AND VENTRICLES IN KEEPING WITH MILD BRAIN VOLUME LOSS. MILD PATCHY LOW-ATTENUATION IN THE DEEP WHITE MATTER AND PERIVENTRICULAR REGION LIKELY ON THE BASIS O F CHRONIC MICROVASCULAR ISCHEMIA. FEW SCATTERED LOW ATTENUATING FOCI IN THE BILATERAL BASAL GANGLIA, RIGHT CAUDATE NUCLEUS AND RIGHT AN TERIOR FRONTAL LOBE A BE ON THE BASIS OF REMOTE LACUNAR INFARCTS. NO ACUTE ORBITAL, OSSEOUS OR SOFT TISSUE ABNORMALITIES SEEN. NO AIR-FLUID LEVELS SEEN IN THE PARANASAL SINUSES OR MASTOID AIR CELLS. LEFT NASAL SEPTAL DEVIATION N OTED. THICKENING IN THE RIGHT FRONTAL SINUS. ATHEROSCLEROTIC OSSIFICATION SEEN IN THE INTRACRANIAL INTERNAL ARTERIES. IMPRESSION: 1. NO ACUTE INTRACRANIAL HEMORRHAGE MIDLINE SHIFT OR MASS EFFECT. 2. MILD BRAIN VOLUME LOSS AND CHRONIC MICROVASCULAR ISCHEMIC CHANGES. 3. BILATERAL LACUNAR INFARCTS. MRI may be beneficial.
[2021-03-01 22:19] VITALS: TEMP 97.8
[2021-03-01] MEDS ORDERED: ASPIRIN 81 MG PO STA (22:59)
[2021-03-01 23:35] VITALS: BP 96/70; PULSE 80; RESP 16
== END 2021-03-02 | disposition home or self-care (01) ==
LOC: EC 19:51
DX: R20.2 Paresthesia of skin (principal); J44.9 Chronic obstructive pulmonary disease, unspecified; I48.91 Unspecified atrial fibrillation; F17.200 Nicotine dependence, unspecified, uncomplicated; Z79.01 Long term (current) use of anticoagulants; Z91.040 Latex allergy status
CPT/HCPCS: 70450; 93005; 99284

== ENCOUNTER 2021-03-26 16:12 | Emergency (ER) | payer MEDICARE ==
[2021-03-26 16:18] VITALS: TEMP 97.5
--- NOTE | 2021-03-26 16:22 | ED ---
General Adult HPI - General Chief complaint: Dizziness Stated complaint: Dizziness Time Seen by Provider: 03/26/21 16:20 Source: patient Mode of arrival: wheelchair Limitations: no limitations - History of Present Illness Initial comments: Patient presents to the ED with his grandson for evaluation. Patient states that he has had intermittent lightheadedness since this morning. Patient states that this is not unusual for him, but he states that his lightheadedness persisted for longer than usual this afternoon, which precipitated him coming to the ED today. Patient states that his lightheadedness has currently resolved. Patient also admits to having a mild headache today, but he states that this too is not uncommon for him. Patient admits to having a chronic and unchanged cough, which he attributes to his COPD. Patient denies trauma or injury, fever or chills, focal numbness/weakness/neuro deficit, visual changes, speech difficulty, neck pain or stiffness, chest pain or pressure, dyspnea, hemoptysis, palpitations, syncope, abdominal pain, nausea/vomiting/diarrhea, bloody or melanotic stool, dysuria or urinary symptoms, leg or calf swelling or pain, or any other symptoms or complaints. Patient states that he has not received any C ovid vaccinations. - Related Data Home Medications Medication Instructions Recorded Confirmed Tamsulosin HCl [Flomax] 0.4 mg PO BID 03/24/18 01/24/21 Apixaban [Eliquis] 5 mg PO BID 09/14/18 01/24/21 Metoprolol Tartrate [Lopressor] 50 mg PO BID 02/04/19 01/24/21 Ergocalciferol [Vitamin D2 1,250 mcg PO GROVES 05/05/19 01/24/21 (DRISDOL)] Finasteride [Proscar] 5 mg PO DAILY 05/05/19 01/24/21 Alendronate Sodium [Fosamax] 70 mg PO GROVES 08/21/19 01/24/21 Budesonide/Formoterol Fumarate 2 puff INHALATION RT-BID 05/21/20 01/24/21 [Symbicort 160-4.5 Mcg Inhaler] Acetaminophen Tab [Tylenol Tab] 500 mg PO Q6H PRN 09/23/20 01/24/21 Ipratropium-Albuterol Nebulize 3 ml INHALATION RT-Q4H PRN 09/23/20 01/24/21 [Duoneb 0.5 mg-3 mg/3 ml Soln] Umeclidinium [place] [Incruse 1 puff INHALATION RT-DAILY 09/23/20 01/24/21 Ellipta] polyethylene glycoL 3350 [Miralax] 17 gm PO DAILY 09/23/20 01/24/21 Previous Rx's Medication Instructions Recorded Albuterol Inhaler [Ventolin Hfa 1 puff INHALATION RT-QID #8 gm 12/17/20 Inhaler] Azithromycin [Zithromax Z-pack (6 0 mg PO DIRECTED #6 tab 01/25/21 tabs)] predniSONE 50 mg PO DAILY #5 tablet 01/25/21 Cefdinir [Omnicef] 300 mg PO Q12HR #20 capsule 02/07/21 Allergies Allergy/AdvReac Type Severity Reaction Status Date / Time Iodinated Contrast Media Allergy Rash/Hives Verified 03/26/21 16:14 [Iodinated Contrast- Oral and IV Dye] latex Allergy Rash/Hives Verified 03/26/21 16:14 Review of Systems ROS Statement: Those systems with pertinent positive or pertinent negative responses have been documented in the HPI. ROS Other: All systems not noted in ROS Statement are negative. Past Medical History Past Medical History: Atrial Flutter, COPD Additional Past Medical History / Comment(s): Paroxysmal Afib, bronchitis, pulmonary nodules/negative pet scan, BPH, constipation, vertigo, chronic low back pain/DDD. covid 06/22 History of Any Multi-Drug Resistant Organisms: None Reported Past Surgical History: Back Surgery Additional Past Surgical History / Comment(s): Bilateral cataract removals-lens implants, colonoscopy, multiple kyphoplasties. Past Anesthesia/Blood Transfusion Reactions: No Reported Reaction Additional Past Anesthesia/Blood Transfusion Reaction / Comment(s): Has never received any blood transfusions. Past Psychological History: No Psychological Hx Reported Smoking Status: Current every day smoker Past Alcohol Use History: None Reported Past Drug Use History: None Reported - Past Family History Mother Family Medical History: AFIB, Dementia Father Family Medical History: Myocardial Infarction ([place]) Additional Family Medical History / Comment(s): in his 70's [place] General Exam Limitations: no limitations General appearance: alert, in no apparent distress, other (Patient smells of cigarettes) Head exam: Present: atraumatic, normocephalic Eye exam: Present: normal appearance, PERRL, EOMI. Absent: nystagmus ENT exam: Present: normal oropharynx, mucous membranes moist Neck exam: Present: other (Trachea is in midline). Absent: tenderness, meningismus Respiratory exam: Present: normal lung sounds bilaterally. Absent: respiratory distress, wheezes, rales, rhonchi, stridor Cardiovascular Exam: Present: regular rate, normal rhythm, normal heart sounds, other (Normal radial pulses bilaterally) GI/Abdominal exam: Present: soft. Absent: distended, tenderness, guarding Extremities exam: Present: other (Negative Homans sign bilaterally). Absent: tenderness, pedal edema, calf tenderness Neurological exam: Present: alert, oriented X3, CN II-XII intact. Absent: motor sensory deficit Psychiatric exam: Present: normal affect, normal mood Skin exam: Present: warm, dry, intact, normal color Course Vital Signs 03/26/21 03/26/21 03/26/21 16:14 17:11 17:22 Temperature 97.5 F L Pulse Rate 100 96 92 Respiratory 20 Rate Blood Pressure 144/78 O2 Sat by Pulse 97 Oximetry 03/26/21 17:56 Temperature Pulse Rate 90 Respiratory 18 Rate Blood Pressure 108/78 O2 Sat by Pulse 96 Oximetry - Reevaluation(s) Reevaluation #1: 03/26/21 20:33 Patient denies development of any new symptoms while in the ED. Patient remains alert and breathing comfortably with a normal room air oxygen saturation. Patient and grandson are aware of the patient's test results, and they both feel comfortable with the patient being discharged home at this time. Patient was counseled about COVID-19 infection and isolation/quarantine precautions. Patient was also counseled about lightheadedness, and he was clearly explained return and follow-up instructions. Patient was instructed to have a low threshold for return to the emergency department should his symptoms worsen. Patient was also instructed to follow up closely with his primary care provider. Patient feels comfortable with this plan. EKG Findings - EKG Comments: EKG Findings:: Sinus tachycardia, ventricular rate of 103 bpm, no ectopy, normal MA and QRS intervals, normal QT interval, normal axis, no ST or T-wave abnormality Medical Decision Making - Medical Decision Making I suspect that the patient's symptoms may be secondary to COVID-19 infection. Patient is unvaccinated and is a candidate for IV monoclonal antibody therapy. Patient was given IV monoclonal antibody infusion treatment in the ED after informed consent was obtained. Patient's noncontrast head CT shows no acute intracranial abnormality. Patient is afebrile and without leukocytosis. Patient's labs are fairly unremarkable. Patient is breathing comfortably in the ED with a normal room air oxygen saturation. I do not feel that hospital admission is indicated at this time. Will discharge patient home with his grandson at this time. - Lab Data Result diagrams: 03/26/21 16:38 03/26/21 16:38 Lab Results 03/26/21 03/26/21 03/26/21 Range/Units 16:35 16:38 16:38 WBC 8.2 (3.8-10.6) k/uL RBC 4.30 (4.30-5.90) m/uL Hgb 14.3 (13.0-17.5) gm/dL Hct 42.4 (39.0-53.0) % MCV 98.6 (80.0-100.0) fL MCH 33.2 (25.0-35.0) pg MCHC 33.6 (31.0-37.0) g/dL RDW 13.5 (11.5-15.5) % Plt Count 241 (150-450) k/uL MPV 7.7 Neutrophils % 66 % Lymphocytes % 17 % Monocytes % 9 % Eosinophils % 4 % Basophils % 1 % Neutrophils # 5.4 (1.3-7.7) k/uL Lymphocytes # 1.4 (1.0-4.8) k/uL Monocytes # 0.8 (0-1.0) k/uL Eosinophils # 0.4 (0-0.7) k/uL Basophils # 0.0 (0-0.2) k/uL PT 10.3 (9.0-12.0) sec INR 0.9 (<1.2) APTT 26.0 (22.0-30.0) sec Sodium (137-145) mmol/L Potassium (3.5-5.1) mmol/L Chloride (98-107) mmol/L Carbon Dioxide (22-30) mmol/L Anion Gap mmol/L BUN (9-20) mg/dL Creatinine (0.66-1.25) mg/dL Est GFR (CKD-EPI)AfAm (>60 ml/min/1.73 sqM) Est GFR (CKD-EPI)NonAf (>60 ml/min/1.73 sqM) Glucose (74-99) mg/dL Plasma Lactic Acid Santi (0.7-2.0) mmol/L Calcium (8.4-10.2) mg/dL Total Bilirubin (0.2-1.3) mg/dL AST (17-59) U/L ALT (4-49) U/L Alkaline Phosphatase (38-126) U/L Troponin I (0.000-0.034) ng/mL NT-Pro-B Natriuret Pep pg/mL Total Protein (6.3-8.2) g/dL Albumin (3.5-5.0) g/dL Coronavirus (PCR) Detected A (Not Detectd) 03/26/21 03/26/21 03/26/21 Range/Units 16:38 16:38 16:38 WBC (3.8-10.6) k/uL RBC (4.30-5.90) m/uL Hgb (13.0-17.5) gm/dL Hct (39.0-53.0) % MCV (80.0-100.0) fL MCH (25.0-35.0) pg MCHC (31.0-37.0) g/dL RDW (11.5-15.5) % Plt Count (150-450) k/uL MPV Neutrophils % % Lymphocytes % % Monocytes % % Eosinophils % % Basophils % % Neutrophils # (1.3-7.7) k/uL Lymphocytes # (1.0-4.8) k/uL Monocytes # (0-1.0) k/uL Eosinophils # (0-0.7) k/uL Basophils # (0-0.2) k/uL PT (9.0-12.0) sec INR (<1.2) APTT (22.0-30.0) sec Sodium 136 L (137-145) mmol/L Potassium 4.4 (3.5-5.1) mmol/L Chloride 104 (98-107) mmol/L Carbon Dioxide 22 (22-30) mmol/L Anion Gap 10 mmol/L BUN 29 H (9-20) mg/dL Creatinine 0.89 (0.66-1.25) mg/dL Est GFR (CKD-EPI)AfAm >90 (>60 ml/min/1.73 sqM) Est GFR (CKD-EPI)NonAf 84 (>60 ml/min/1.73 sqM) Glucose 96 (74-99) mg/dL Plasma Lactic Acid Santi 1.1 (0.7-2.0) mmol/L Calcium 9.2 (8.4-10.2) mg/dL Total Bilirubin 0.5 (0.2-1.3) mg/dL AST 22 (17-59) U/L ALT 14 (4-49) U/L Alkaline Phosphatase 77 (38-126) U/L Troponin I <0.012 (0.000-0.034) ng/mL NT-Pro-B Natriuret Pep pg/mL Total Protein 6.5 (6.3-8.2) g/dL Albumin 4.0 (3.5-5.0) g/dL Coronavirus (PCR) (Not Detectd) 03/26/21 Range/Units 16:38 WBC (3.8-10.6) k/uL RBC (4.30-5.90) m/uL Hgb (13.0-17.5) gm/dL Hct (39.0-53.0) % MCV (80.0-100.0) fL MCH (25.0-35.0) pg MCHC (31.0-37.0) g/dL RDW (11.5-15.5) % Plt Count (150-450) k/uL MPV Neutrophils % % Lymphocytes % % Monocytes % % Eosinophils % % Basophils % % Neutrophils # (1.3-7.7) k/uL Lymphocytes # (1.0-4.8) k/uL Monocytes # (0-1.0) k/uL Eosinophils # (0-0.7) k/uL Basophils # (0-0.2) k/uL PT (9.0-12.0) sec INR (<1.2) APTT (22.0-30.0) sec Sodium (137-145) mmol/L Potassium (3.5-5.1) mmol/L Chloride (98-107) mmol/L Carbon Dioxide (22-30) mmol/L Anion Gap mmol/L BUN (9-20) mg/dL Creatinine (0.66-1.25) mg/dL Est GFR (CKD-EPI)AfAm (>60 ml/min/1.73 sqM) Est GFR (CKD-EPI)NonAf (>60 ml/min/1.73 sqM) Glucose (74-99) mg/dL Plasma Lactic Acid Santi (0.7-2.0) mmol/L Calcium (8.4-10.2) mg/dL Total Bilirubin (0.2-1.3) mg/dL AST (17-59) U/L ALT (4-49) U/L Alkaline Phosphatase (38-126) U/L Troponin I (0.000-0.034) ng/mL NT-Pro-B Natriuret Pep 44 pg/mL Total Protein (6.3-8.2) g/dL Albumin (3.5-5.0) g/dL Coronavirus (PCR) (Not Detectd) - Radiology Data Chest x-ray: Mild pulmonary interstitial edema slightly increased compared to old exam. No pleural fluid or cardiomegaly seen to suggest heart failure. This could relate to pulmonary interstitial fibrosis. Noncontrast head CT: There is some hydrocephalus that is likely normal pressure. No change compared to old exam. No acute intracranial abnormality. Disposition Clinical Impression: Lightheadedness, COVID-19 Disposition: HOME SELF-CARE Condition: Stable Instructions (If sedation given, give patient instructions): Coronavirus Disease 2019 (COVID-19), Lightheadedness (ED) Additional Instructions: Return to the ER immediately should you develop increased lightheadedness, fainting, any significant pain, a high fever, shortness of breath, chest pain, or new or worsening symptoms. Follow up closely with your primary care provider. Is patient prescribed a controlled substance at d/c from ED?: No Referrals: Fernando Lambert Jr, [Primary Care Provider] - 1-2 days Time of Disposition: 20:34
[2021-03-26] MEDS ORDERED: SODIUM CHLORIDE 0.9% 500 ML 500 ML IV STA (16:28)
[2021-03-26] MEDS ORDERED: IPRATROPIUM-ALBUTEROL 3 ML NEB INHALATION STA (16:36)
--- NOTE | 2021-03-26 17:23 | XR ---
EXAMINATION TYPE: XR chest 1V portable DATE OF EXAM: 03/26/2021 COMPARISON: NONE HISTORY: Dizziness and weakness TECHNIQUE: Single view FINDINGS: There is pulmonary interstitial edema. Heart is fairly normal in size. There is no pleural effusion. There are no hilar masses. IMPRESSION: Mild pulmonary interstitial edema slightly increased compared to old exam. No pleural flu id or cardiomegaly seen to suggest heart failure. This could relate to pulmonary interstitial fibrosi s..
[2021-03-26 17:48] LABS: Basophils % (A) 1 %; Eosinophils # (A) 0.4 k/uL (0-0.7); Eosinophils % (A) 4 %; HCT 42.4 % (39.0-53.0); HGB 14.3 gm/dL (13.0-17.5); Lymphocytes # (A) 1.4 k/uL (1.0-4.8); Lymphocytes % (A) 17 %; MCH 33.2 pg (25.0-35.0); MCHC 33.6 g/dL (31.0-37.0); MCV 98.6 fL (80.0-100.0); Mean Platelet Volume 7.7; Monocytes # (A) 0.8 k/uL (0-1.0); Monocytes % (A) 9 %; Neutrophils # (A) 5.4 k/uL (1.3-7.7); Neutrophils % (A) 66 %; Platelet Count 241 k/uL (150-450); RDW 13.5 % (11.5-15.5); WBC 8.2 k/uL (3.8-10.6)
[2021-03-26 17:57] VITALS: RESP 18
[2021-03-26 17:57] LABS: ALT 14 U/L (4-49); AST 22 U/L (17-59); African American GFR (CKD) >90 (>60 ml/min/1.73 sqM); Alkaline Phosphatase 77 U/L (38-126); Anion Gap 10 mmol/L; Blood Urea Nitrogen 29 mg/dL (9-20); Calcium 9.2 mg/dL (8.4-10.2); Carbon Dioxide 22 mmol/L (22-30); Chloride 104 mmol/L (98-107); Glucose 96 mg/dL (74-99); Non-African American GFR(CKD) 84 (>60 ml/min/1.73 sqM); Potassium 4.4 mmol/L (3.5-5.1); Sodium 136 mmol/L (137-145); Total Bilirubin 0.5 mg/dL (0.2-1.3); Total Protein 6.5 g/dL (6.3-8.2)
[2021-03-26 18:12] LABS: INR 0.9 (<1.2); Prothrombin Time 10.3 sec (9.0-12.0)
--- NOTE | 2021-03-26 19:14 | CT ---
EXAMINATION TYPE: CT brain wo con DATE OF EXAM: 03/26/2021 COMPARISON: 03/01/2021 HISTORY: Lightheadedness, Covid + CT DLP: 1107.4 mGycm Automated exposure control for dose reduction was used. Images obtained of the brain without contrast. There is some enlargement of the ventricles. There is mild cerebral atrophy. There is no midline shif t. There is no sign of intracranial hemorrhage. Calvarium is intact. There is normal aeration of the mastoid sinuses. IMPRESSION: There is some hydrocephalus that is likely normal pressure. No change compared to old exam. No acute intracranial abnormality.
[2021-03-26] MEDS ORDERED: SOTROVIMAB (EUA) 500 MG in SODIUM CHLORIDE 0.9% 100 ML IVPB ONE (19:30)
[2021-03-26] MEDS ORDERED: SODIUM CHLORIDE 0.9% 50 ML IVPB ONE (19:30)
[2021-03-26 22:17] VITALS: BP 110/68; PULSE 95
== END 2021-03-26 22:17 | disposition home or self-care (01) ==
LOC: EC 16:12
DX: U07.1 COVID-19 (principal); J44.9 Chronic obstructive pulmonary disease, unspecified; I48.0 Paroxysmal atrial fibrillation; F17.200 Nicotine dependence, unspecified, uncomplicated; Z79.01 Long term (current) use of anticoagulants; Z91.040 Latex allergy status
CPT/HCPCS: 99284; 36415; 94640; 93005; 83880; 80053; 83605; 84484; 85025; 85610; 85730; 87635; 71045; 70450; Q0247

== ENCOUNTER 2021-04-04 19:58 | Emergency (ER) | payer MEDICARE ==
[2021-04-04 20:54] VITALS: TEMP 98.5
--- NOTE | 2021-04-04 23:56 | XR ---
EXAMINATION TYPE: XR KUB DATE OF EXAM: 04/04/2021 COMPARISON: 10/12/2020 HISTORY: Constipation TECHNIQUE: Single view FINDINGS: There is mild lumbar dextroscoliosis. There are some scattered intestinal fluid levels. The re is multilevel lumbar vertebroplasty. There is no evidence of free air. IMPRESSION: There are some intestinal fluid levels that could relate to some small bowel ileus and is n't changed compared to old exam. No significant retained fecal material. No sign of free air.
[2021-04-05] MEDS ORDERED: ALBUTEROL NEBULIZED 2.5 MG/3 ML INHALATION STA (00:28)
--- NOTE | 2021-04-05 02:04 | ED ---
General Adult HPI - General Chief complaint: Recheck/Abnormal Lab/Rx Stated complaint: No BM in a week, Abdominal pain Time Seen by Provider: 04/04/21 23:37 Source: patient Mode of arrival: wheelchair Limitations: no limitations - History of Present Illness Initial comments: 's patient is 75-year-old man who presents with complaint of abdominal cramping and a feeling of constipation. He states he has not had a bowel movement approximately one week now. Patient states that he had tried some magnesium citrate over the course of the past day to 2 days he has now taken 2 bottles of magnesium citrate without any resulting bowel movement. Patient denied having any vomiting. No change in urination. On the review of systems, patient did state that he has some underlying COPD and feels like he is having just a touch of wheezing. Onset/Timin -: week(s) Location: abdomen Radiation: non-radiation Severity scale (1-10): 2 Quality: other (Cramping) Consistency: intermittent, now resolved Improves with: none Worsens with: none Associated Symptoms: other (Constipation) Treatments Prior to Arrival: other (Magnesium citrate) - Related Data Home Medications Medication Instructions Recorded Confirmed Tamsulosin HCl [Flomax] 0.4 mg PO BID 03/24/18 01/24/21 Apixaban [Eliquis] 5 mg PO BID 09/14/18 01/24/21 Metoprolol Tartrate [Lopressor] 50 mg PO BID 02/04/19 01/24/21 Ergocalciferol [Vitamin D2 1,250 mcg PO GROVES 05/05/19 01/24/21 (DRISDOL)] Finasteride [Proscar] 5 mg PO DAILY 05/05/19 01/24/21 Alendronate Sodium [Fosamax] 70 mg PO GROVES 08/21/19 01/24/21 Budesonide/Formoterol Fumarate 2 puff INHALATION RT-BID 05/21/20 01/24/21 [Symbicort 160-4.5 Mcg Inhaler] Acetaminophen Tab [Tylenol Tab] 500 mg PO Q6H PRN 09/23/20 01/24/21 Ipratropium-Albuterol Nebulize 3 ml INHALATION RT-Q4H PRN 09/23/20 01/24/21 [Duoneb 0.5 mg-3 mg/3 ml Soln] Umeclidinium [place] [Incruse 1 puff INHALATION RT-DAILY 09/23/20 01/24/21 Ellipta] polyethylene glycoL 3350 [Miralax] 17 gm PO DAILY 09/23/20 01/24/21 Previous Rx's Medication Instructions Recorded Albuterol Inhaler [Ventolin Hfa 1 puff INHALATION RT-QID #8 gm 12/17/20 Inhaler] Azithromycin [Zithromax Z-pack (6 0 mg PO DIRECTED #6 tab 01/25/21 tabs)] predniSONE 50 mg PO DAILY #5 tablet 01/25/21 Cefdinir [Omnicef] 300 mg PO Q12HR #20 capsule 02/07/21 Allergies Allergy/AdvReac Type Severity Reaction Status Date / Time Iodinated Contrast Media Allergy Rash/Hives Verified 04/04/21 20:50 [Iodinated Contrast- Oral and IV Dye] latex Allergy Rash/Hives Verified 04/04/21 20:50 Review of Systems ROS Statement: Those systems with pertinent positive or pertinent negative responses have been documented in the HPI. ROS Other: All systems not noted in ROS Statement are negative. Constitutional: Denies: fever, chills, weakness Respiratory: Reports: as per HPI, dyspnea, wheezes. Denies: cough Cardiovascular: Denies: chest pain, palpitations, edema Gastrointestinal: Reports: as per HPI, abdominal pain, constipation. Denies: nausea, vomiting, diarrhea, melena, hematochezia Genitourinary: Denies: dysuria, hematuria, testicular pain Musculoskeletal: Denies: back pain Skin: Denies: rash Neurological: Denies: headache, weakness Past Medical History Past Medical History: Atrial Flutter, COPD Additional Past Medical History / Comment(s): Paroxysmal Afib, bronchitis, pulmonary nodules/negative pet scan, BPH, constipation, vertigo, chronic low back pain/DDD. covid 06/22 History of Any Multi-Drug Resistant Organisms: None Reported Past Surgical History: Back Surgery Additional Past Surgical History / Comment(s): Bilateral cataract removals-lens implants, colonoscopy, multiple kyphoplasties. Past Anesthesia/Blood Transfusion Reactions: No Reported Reaction Additional Past Anesthesia/Blood Transfusion Reaction / Comment(s): Has never received any blood transfusions. Past Psychological History: No Psychological Hx Reported Smoking Status: Current every day smoker Past Alcohol Use History: None Reported Past Drug Use History: None Reported - Past Family History Mother Family Medical History: AFIB, Dementia Father Family Medical History: Myocardial Infarction ([place]) Additional Family Medical History / Comment(s): in his 70's [place] General Exam Limitations: no limitations General appearance: alert, in no apparent distress Head exam: Present: atraumatic, normocephalic Eye exam: Present: normal appearance. Absent: scleral icterus, conjunctival injection Respiratory exam: Present: wheezes. Absent: respiratory distress, rales, rhonch i, stridor Cardiovascular Exam: Present: regular rate, normal rhythm, normal heart sounds. Absent: systolic murmur, diastolic murmur, rubs, gallop GI/Abdominal exam: Present: soft. Absent: distended, tenderness, guarding, rebound, rigid, mass Extremities exam: Present: normal inspection, normal capillary refill. Absent: pedal edema, calf tenderness Back exam: Present: normal inspection. Absent: CVA tenderness (R), CVA tenderness (L) Neurological exam: Present: alert Skin exam: Present: warm, dry, intact, normal color. Absent: rash Course Vital Signs 04/04/21 04/04/21 04/04/21 20:51 21:54 23:54 Temperature 98.5 F Pulse Rate 81 80 94 Respiratory 20 20 20 Rate Blood Pressure 130/78 127/89 137/87 O2 Sat by Pulse 97 95 96 Oximetry 04/05/21 01:26 Temperature Pulse Rate 76 Respiratory 20 Rate Blood Pressure 112/71 O2 Sat by Pulse 96 Oximetry Medical Decision Making - Medical Decision Making Patient 75-year-old man here with mild abdominal pains and constipation. The patient did subsequently have bowel movement and stated that his symptoms had resolved. He was waiting to have nebulized treatments but he did bring his own nebulizer machine and self administered 1 and then was feeling like he was back to baseline and wanted to go home. Disposition Clinical Impression: Constipation Disposition: HOME SELF-CARE Condition: Good Instructions (If sedation given, give patient instructions): Constipation (ED) Is patient prescribed a controlled substance at d/c from ED?: No Referrals: Fernando Lambert Jr, DO [Primary Care Provider] - 1-2 days
[2021-04-05] MEDS ORDERED: INSULIN REGULAR 100 UNIT/ML VIAL (IV) IV STA (02:06)
[2021-04-05 02:16] VITALS: BP 123/83; PULSE 94; RESP 18
== END 2021-04-05 02:22 | disposition home or self-care (01) ==
LOC: EC 19:58
DX: K59.00 Constipation, unspecified (principal); J44.9 Chronic obstructive pulmonary disease, unspecified; I48.0 Paroxysmal atrial fibrillation; F17.200 Nicotine dependence, unspecified, uncomplicated; Z79.01 Long term (current) use of anticoagulants; Z91.040 Latex allergy status
CPT/HCPCS: 74018; 99284

== ENCOUNTER 2021-04-07 03:02 | Observation (INO) | payer MEDICARE ==
[2021-04-07] MEDS ORDERED: IPRATROPIUM-ALBUTEROL 3 ML NEB INHALATION STA (03:24)
[2021-04-07] MEDS ORDERED: predniSONE 20 MG TAB PO STA (03:24)
--- NOTE | 2021-04-07 03:29 | ED ---
SOB HPI - General Chief Complaint: Shortness of Breath Stated Complaint: SOB Time Seen by Provider: 04/07/21 03:19 Source: patient, family Mode of arrival: ambulatory - History of Present Illness Initial Comments: This patient is 75-year-old man who presents to have evaluation for what he suspects his COPD exacerbation. The patient states over the past day to 2 he has had a little bit of increasing cough and also some wheezing. He states things became much worse tonight. He did take albuterol treatment approximately 3-1/2 hours ago but states it was not proving much so he presents here for evaluation. He has not noted any fevers. Cough is nonproductive. No chest dana n. No change in urination or bowel movements. No leg pain or swelling. MD Complaint: shortness of breath, cough Onset/Timin -: days(s) Severity scale (1-10): 0 Consistency: constant Improves With: nothing Worsens With: lying flat Known History Of: COPD Associated Symptoms: cough Treatments Prior to Arrival: bronchodilator - Related Data Home Medications Medication Instructions Recorded Confirmed Tamsulosin HCl [Flomax] 0.4 mg PO BID 03/24/18 01/24/21 Apixaban [Eliquis] 5 mg PO BID 09/14/18 01/24/21 Metoprolol Tartrate [Lopressor] 50 mg PO BID 02/04/19 01/24/21 Ergocalciferol [Vitamin D2 1,250 mcg PO GROVES 05/05/19 01/24/21 (DRISDOL)] Finasteride [Proscar] 5 mg PO DAILY 05/05/19 01/24/21 Alendronate Sodium [Fosamax] 70 mg PO GROVES 08/21/19 01/24/21 Budesonide/Formoterol Fumarate 2 puff INHALATION RT-BID 05/21/20 01/24/21 [Symbicort 160-4.5 Mcg Inhaler] Acetaminophen Tab [Tylenol Tab] 500 mg PO Q6H PRN 09/23/20 01/24/21 Ipratropium-Albuterol Nebulize 3 ml INHALATION RT-Q4H PRN 09/23/20 01/24/21 [Duoneb 0.5 mg-3 mg/3 ml Soln] Umeclidinium [place] [Incruse 1 puff INHALATION RT-DAILY 09/23/20 01/24/21 Ellipta] polyethylene glycoL 3350 [Miralax] 17 gm PO DAILY 09/23/20 01/24/21 Previous Rx's Medication Instructions Recorded Albuterol Inhaler [Ventolin Hfa 1 puff INHALATION RT-QID #8 gm 12/17/20 Inhaler] Azithromycin [Zithromax Z-pack (6 0 mg PO DIRECTED #6 tab 01/25/21 tabs)] predniSONE 50 mg PO DAILY #5 tablet 01/25/21 Cefdinir [Omnicef] 300 mg PO Q12HR #20 capsule 02/07/21 Allergies Allergy/AdvReac Type Severity Reaction Status Date / Time Iodinated Contrast Media Allergy Rash/Hives Verified 04/07/21 03:09 [Iodinated Contrast- Oral and IV Dye] latex Allergy Rash/Hives Verified 04/07/21 03:09 Review of Systems ROS Statement: Those systems with pertinent positive or pertinent negative responses have been documented in the HPI. ROS Other: All systems not noted in ROS Statement are negative. Constitutional: Denies: fever, chills Respiratory: Reports: cough, dyspnea, wheezes. Denies: hemoptysis Cardiovascular: Denies: chest pain, palpitations, edema, syncope Gastrointestinal: Denies: abdominal pain, nausea, vomiting, diarrhea, constipation Genitourinary: Denies: dysuria, hematuria Musculoskeletal: Denies: back pain Skin: Denies: rash Neurological: Denies: headache, weakness Past Medical History Past Medical History: Atrial Flutter, COPD Additional Past Medical History / Comment(s): Paroxysmal Afib, bronchitis, pulmonary nodules/negative pet scan, BPH, constipation, vertigo, chronic low back pain/DDD. covid 06/22 History of Any Multi-Drug Resistant Organisms: None Reported Past Surgical History: Back Surgery Additional Past Surgical History / Comment(s): Bilateral cataract removals-lens implants, colonoscopy, multiple kyphoplasties. Past Anesthesia/Blood Transfusion Reactions: No Reported Reaction Additional Past Anesthesia/Blood Transfusion Reaction / Comment(s): Has never r eceived any blood transfusions. Past Psychological History: No Psychological Hx Reported Smoking Status: Current every day smoker Past Alcohol Use History: None Reported Past Drug Use History: None Reported - Past Family History Mother Family Medical History: AFIB, Dementia Father Family Medical History: Myocardial Infarction ([place]) Additional Family Medical History / Comment(s): in his 70's from [place] General Exam General appearance: alert, in distress Head exam: Present: atraumatic, normocephalic Eye exam: Present: normal appearance Neck exam: Present: normal inspection Respiratory exam: Present: respiratory distress, wheezes, accessory muscle use, prolonged expiratory. Absent: rales, rhonchi, stridor, decreased breath sounds Cardiovascular Exam: Present: normal rhythm, tachycardia, normal heart sounds. Absent: systolic murmur, diastolic murmur, rubs, gallop GI/Abdominal exam: Present: soft. Absent: distended, tenderness, guarding, rebound, rigid, mass Extremities exam: Present: normal inspection, normal capillary refill. Absent: pedal edema, calf tenderness Back exam: Present: normal inspection. Absent: CVA tenderness (R), CVA tenderness (L) Neurological exam: Present: alert Skin exam: Present: warm, dry, intact, normal color. Absent: rash Course Vital Signs 04/07/21 04/07/21 04/07/21 03:05 03:33 03:38 Temperature 98.3 F Pulse Rate 110 H 110 H 112 H Respiratory 23 Rate Blood Pressure 147/58 O2 Sat by Pulse 93 L Oximetry 04/07/21 04/07/21 03:59 04:14 Temperature Pulse Rate 100 Respiratory 18 30 H Rate Blood Pressure O2 Sat by Pulse 93 L Oximetry Medical Decision Making - Lab Data Result diagrams: 04/07/21 03:33 04/07/21 03:33 Lab Results 04/07/21 04/07/21 04/07/21 Range/Units 03:33 03:33 03:33 WBC 12.4 H (3.8-10.6) k/uL RBC 4.24 L (4.30-5.90) m/uL Hgb 13.9 (13.0-17.5) gm/dL Hct 41.8 (39.0-53.0) % MCV 98.6 (80.0-100.0) fL MCH 32.9 (25.0-35.0) pg MCHC 33.3 (31.0-37.0) g/dL RDW 13.7 (11.5-15.5) % Plt Count 225 (150-450) k/uL MPV 7.6 Neutrophils % 84 % Lymphocytes % 7 % Monocytes % 6 % Eosinophils % 1 % Basophils % 0 % Neutrophils # 10.5 H (1.3-7.7) k/uL Lymphocytes # 0.8 L (1.0-4.8) k/uL Monocytes # 0.8 (0-1.0) k/uL Eosinophils # 0.2 (0-0.7) k/uL Basophils # 0.0 (0-0.2) k/uL PT 10.8 (9.0-12.0) sec INR 1.0 (<1.2) APTT 26.2 (22.0-30.0) sec Sodium 135 L (137-145) mmol/L Potassium 4.2 (3.5-5.1) mmol/L Chloride 105 (98-107) mmol/L Carbon Dioxide 24 (22-30) mmol/L Anion Gap 6 mmol/L BUN 17 (9-20) mg/dL Creatinine 0.83 (0.66-1.25) mg/dL Est GFR (CKD-EPI)AfAm >90 (>60 ml/min/1.73 sqM) Est GFR (CKD-EPI)NonAf 86 (>60 ml/min/1.73 sqM) Glucose 107 H (74-99) mg/dL Plasma Lactic Acid Santi (0.7-2.0) mmol/L Calcium 8.9 (8.4-10.2) mg/dL Magnesium 2.1 (1.6-2.3) mg/dL Total Bilirubin 0.7 (0.2-1.3) mg/dL AST 18 (17-59) U/L ALT 12 (4-49) U/L Alkaline Phosphatase 75 (38-126) U/L Troponin I (0.000-0.034) ng/mL NT-Pro-B Natriuret Pep pg/mL Total Protein 6.5 (6.3-8.2) g/dL Albumin 3.8 (3.5-5.0) g/dL 04/07/21 04/07/21 04/07/21 Range/Units 03:33 03:33 03:33 WBC (3.8-10.6) k/uL RBC (4.30-5.90) m/uL Hgb (13.0-17.5) gm/dL Hct (39.0-53.0) % MCV (80.0-100.0) fL MCH (25.0-35.0) pg MCHC (31.0-37.0) g/dL RDW (11.5-15.5) % Plt Count (150-450) k/uL MPV Neutrophils % % Lymphocytes % % Monocytes % % Eosinophils % % Basophils % % Neutrophils # (1.3-7.7) k/uL Lymphocytes # (1.0-4.8) k/uL Monocytes # (0-1.0) k/uL Eosinophils # (0-0.7) k/uL Basophils # (0-0.2) k/uL PT (9.0-12.0) sec INR (<1.2) APTT (22.0-30.0) sec Sodium (137-145) mmol/L Potassium (3.5-5.1) mmol/L Chloride (98-107) mmol/L Carbon Dioxide (22-30) mmol/L Anion Gap mmol/L BUN (9-20) mg/dL Creatinine (0.66-1.25) mg/dL Est GFR (CKD-EPI)AfAm (>60 ml/min/1.73 sqM) Est GFR (CKD-EPI)NonAf (>60 ml/min/1.73 sqM) Glucose (74-99) mg/dL Plasma Lactic Acid Santi 1.2 (0.7-2.0) mmol/L Calcium (8.4-10.2) mg/dL Magnesium (1.6-2.3) mg/dL Total Bilirubin (0.2-1.3) mg/dL AST (17-59) U/L ALT (4-49) U/L Alkaline Phosphatase (38-126) U/L Troponin I <0.012 (0.000-0.034) ng/mL NT-Pro-B Natriuret Pep 190 pg/mL Total Protein (6.3-8.2) g/dL Albumin (3.5-5.0) g/dL - EKG Data -: EKG Interpreted by Me EKG shows normal: sinus rhythm, axis (Normal), intervals (Normal), QRS complexes (Normal), ST-T waves (Normal) Rate: tachycardia (Rate 106 bpm) Disposition Clinical Impression: COPD with acute exacerbation Disposition: ADMITTED IP TO THIS HOSP Condition: Fair Is patient prescribed a controlled substance at d/c from ED?: No Referrals: Fernando Lambert Jr, [Primary Care Provider] - 1-2 days
[2021-04-07 03:53] LABS: Basophils % (A) 0 %; Eosinophils # (A) 0.2 k/uL (0-0.7); Eosinophils % (A) 1 %; HCT 41.8 % (39.0-53.0); HGB 13.9 gm/dL (13.0-17.5); Lymphocytes # (A) 0.8 k/uL (1.0-4.8); Lymphocytes % (A) 7 %; MCH 32.9 pg (25.0-35.0); MCHC 33.3 g/dL (31.0-37.0); MCV 98.6 fL (80.0-100.0); Mean Platelet Volume 7.6; Monocytes # (A) 0.8 k/uL (0-1.0); Monocytes % (A) 6 %; Neutrophils # (A) 10.5 k/uL (1.3-7.7); Neutrophils % (A) 84 %; Platelet Count 225 k/uL (150-450); RBC 4.24 m/uL (4.30-5.90); RDW 13.7 % (11.5-15.5); WBC 12.4 k/uL (3.8-10.6)
[2021-04-07 04:01] LABS: Partial Thromboplastin Time 26.2 sec (22.0-30.0); Prothrombin Time 10.8 sec (9.0-12.0)
[2021-04-07 04:07] LABS: ALT 12 U/L (4-49); AST 18 U/L (17-59); African American GFR (CKD) >90 (>60 ml/min/1.73 sqM); Albumin 3.8 g/dL (3.5-5.0); Alkaline Phosphatase 75 U/L (38-126); Anion Gap 6 mmol/L; Blood Urea Nitrogen 17 mg/dL (9-20); Calcium 8.9 mg/dL (8.4-10.2); Carbon Dioxide 24 mmol/L (22-30); Chloride 105 mmol/L (98-107); Glucose 107 mg/dL (74-99); Magnesium 2.1 mg/dL (1.6-2.3); Non-African American GFR(CKD) 86 (>60 ml/min/1.73 sqM); Potassium 4.2 mmol/L (3.5-5.1); Sodium 135 mmol/L (137-145); Total Bilirubin 0.7 mg/dL (0.2-1.3); Total Protein 6.5 g/dL (6.3-8.2)
--- NOTE | 2021-04-07 04:12 | XR ---
EXAMINATION TYPE: XR chest 2V DATE OF EXAM: 04/07/2021 COMPARISON: 03/26/2021 HISTORY: Weakness TECHNIQUE: Short of breath FINDINGS: There is coarse interstitial density in the lungs. Heart size is normal. There is multileve l thoracic and lumbar vertebral plasty. There is no pleural effusion. No heart failure. IMPRESSION: Moderate pulmonary fibrosis. No obvious heart failure. Interstitial pulmonary density inc reased compared to old exam.
[2021-04-07] MEDS: BUDESONIDE 0.5 MG/2 ML NEBU INHALATION SCH ×2 (08:08→20:34)
[2021-04-07] MEDS: IPRATROPIUM-ALBUTEROL 3 ML NEB INHALATION SCH ×4 (08:08→20:34)
[2021-04-07] MEDS ORDERED: predniSONE 20 MG TAB PO SCH (09:00)
[2021-04-07] MEDS ORDERED: methylPREDNISolone SOD SUCCI 125 MG/2 ML VIAL IV STA (15:20)
--- NOTE | 2021-04-07 15:48 | P.HPIM ---
History of Present Illness H&P Date: 04/07/21 Chief Complaint: Worsening shortness of breath This is a 75-year-old gentleman well known to the practice of Dr. Lambert, presented to the ER with acute exacerbation of chronic COPD. Reports worsening shortness of breath since yesterday. Denies chest pain, palpitations or sh ortness of breath. Denies lightheadedness dizziness or focal deficits. Denies nausea vomiting or diarrhea. Denies abdominal pain. Chest x-ray reporting moderate pulmonary fibrosis, no obvious heart failure, interstitial pulmonary density increased compared to old exam. Received nebulized bronchodilator treatments, IV steroids in the ER, continues to have expiratory wheezing and coarse rhonchi. Afebrile, WBC 12.4. Chronic virus not detected. Past Medical History Past Medical History: Atrial Fibrillation, Atrial Flutter, COPD, GERD/Reflux, Pneumonia, Prostate Disorder Additional Past Medical History / Comment(s): Paroxysmal Afib, bronchitis, BPH, constipation, vertigo, chronic low back pain/DDD. covid 06/22 History of Any Multi-Drug Resistant Organisms: None Reported Past Surgical History: Back Surgery Additional Past Surgical History / Comment(s): Bilateral cataract removals-lens implants, colonoscopy, multiple kyphoplasties. Past Anesthesia/Blood Transfusion Reactions: No Reported Reaction Additional Past Anesthesia/Blood Transfusion Reaction / Comment(s): Has never received any blood transfusions. Smoking Status: Current every day smoker - Past Family History Mother Family Medical History: AFIB, Dementia Father Family Medical History: Myocardial Infarction ([place]) Additional Family Medical History / Comment(s): in his 70's [place] Medications and Allergies Home Medications Medication Instructions Recorded Confirmed Type Tamsulosin HCl [Flomax] 0.4 mg PO BID 03/24/18 04/07/21 History Apixaban [Eliquis] 5 mg PO BID 09/14/18 04/07/21 History Metoprolol Tartrate [Lopressor] 50 mg PO BID 02/04/19 04/07/21 History Ergocalciferol [Vitamin D2 1,250 mcg PO GROVES 05/05/19 04/07/21 History (ISDOL)] Alendronate Sodium [Fosamax] 70 mg PO GROVES 08/21/19 04/07/21 History Budesonide/Formoterol Fumarate 2 puff INHALATION RT-BID 05/21/20 04/07/21 History [Symbicort 160-4.5 Mcg Inhaler] Ipratropium-Albuterol Nebulize 3 ml INHALATION RT-Q4H PRN 09/23/20 04/07/21 History [Duoneb 0.5 mg-3 mg/3 ml Soln] Umeclidinium [place] [Incruse 1 puff INHALATION RT-DAILY 09/23/20 04/07/21 History Ellipta] Albuterol Inhaler [Ventolin Hfa 1 puff INHALATION RT-QID #8 gm 12/17/20 04/07/21 Rx Inhaler] Fluticasone/Salmeterol [Advair 1 puff INHALATION RT-BID 04/07/21 04/07/21 History 250-50 Diskus] Gabapentin [Neurontin] 100 mg PO BID 04/07/21 04/07/21 History Allergies Allergy/AdvReac Type Severity Reaction Status Date / Time Iodinated Contrast Media Allergy Rash/Hives Verified 04/07/21 07:19 [Iodinated Contrast- Oral and IV Dye] latex Allergy Rash/Hives Verified 04/07/21 07:19 Physical Exam Vitals: Vital Signs Temp Pulse Pulse Resp BP BP Pulse Ox 04/07/21 14:04 97 F L 95 15 136/73 93 L 04/07/21 11:33 97 04/07/21 11:24 93 04/07/21 08:02 97.7 F 99 20 125/68 94 L 04/07/21 08:00 97.7 F 110 H 16 144/75 94 L 04/07/21 04:14 30 H 04/07/21 03:59 100 18 93 L 04/07/21 03:38 112 H 04/07/21 03:33 110 H 04/07/21 03:05 98.3 F 110 H 23 147/58 93 L Intake and Output 04/07/21 04/07/21 04/07/21 06:59 14:59 22:59 Intake Total 236 Balance 236 Intake: Oral 236 Other: # Voids 2 # Bowel Movements 0 Weight 68.039 kg 68.039 kg General: [Patient awake, alert and oriented times 3. Patient in no acute distress, sitting up at side of bed.] HEENT: [PERRL. EOMI. No pharyngeal erythema or exudate. Neck: [Supple, no JVD, No adenopathy.] Cardiac: [Heart regular in rate and rhythm. No S3. No S4. No clicks, rubs. No murmur.] Lungs: Bibasilar wheezes , diminished breath sounds, scattered coarse rhonchi, expiratory wheezing Abdomen: [No mass. No organomegaly. Bowel sounds presnt and normoactive in all 4 quadrants.] Extremes: [No edema no cyanosis no claudication normal pulses] Skin: [No rash.] Neurologic: [No lateralizing deficits. CN II - XII grossly intact.] Results CBC & Chem 7: 04/07/21 03:33 04/07/21 03:33 Labs: Abnormal Lab Results - Last 24 Hours (Table) 04/07/21 04/07/21 Range/Units 03:33 03:33 WBC 12.4 H (3.8-10.6) k/uL RBC 4.24 L (4.30-5.90) m/uL Neutrophils # 10.5 H (1.3-7.7) k/uL Lymphocytes # 0.8 L (1.0-4.8) k/uL Sodium 135 L (137-145) mmol/L Glucose 107 H (74-99) mg/dL Thrombosis Risk Factor Assmnt - Choose All That Apply Any of the Below Risk Factors Present?: Yes Each Factor Represents 1 point: Abnormal pulmonary function (COPD), Obesity (BMI >25), Serious lung disease incl. pneumonia (< 1month) Other Risk Factors: Yes Each Risk Factor Represents 3 Points: Age 75 years or older Other congenital or acquired thrombophilia - If yes, enter type in comment: No Thrombosis Risk Factor Assessment Total Risk Factor Score: 6 Thrombosis Risk Factor Assessment Level: High Risk Assessment and Plan Assessment: Acute hypercapnic respiratory failure secondary to acute COPD exacerbation, Hx of of COVID-19 pneumonia, status post BAM 06/2020. Advanced COPD, stage III Ongoing Nicotine dependence,counseled on smoking cessation Chronic atrial fibrillation, paroxysmal, anticoagulated on Eliquis BPH Chronic low back pain Hypertension Plan: Continue on current medication regime ,monitoring and Zantac treatment. IV antibiotics, IV steroids, nebulized bronchodilators. Smoking cessation sandra nforced Discharge planning in progress for tomorrow morning. The impression and plan of care has been dictated as directed. : I performed a history and examination of this patient, discussed the same with the dictator. I agree with the dictator's note ,documented as a scribe. Any additional findings or plans will be noted.
[2021-04-07 17:50] LABS: Glucose,Whole Blood 124 mg/dL (75-99)
[2021-04-07] MEDS: INSULIN ASPART (NovoLOG) 100 UNIT/ML VIAL SQ SCH ×2 (17:53→21:52)
[2021-04-07] MEDS: AZITHROMYCIN 500 MG TAB PO SCH (18:18)
[2021-04-07 20:32] LABS: Glucose,Whole Blood 157 mg/dL (75-99)
[2021-04-07] MEDS: methylPREDNISolone SOD SUCCI 40 MG/ML 1 ML VIAL IV SCH (23:29)
[2021-04-08] MEDS ORDERED: IPRATROPIUM-ALBUTEROL 3 ML NEB INHALATION PRN (01:19)
[2021-04-08 07:24] LABS: Glucose,Whole Blood 128 mg/dL (75-99)
[2021-04-08 07:47] VITALS: BP 137/78; RESP 16; TEMP 97.5
[2021-04-08] MEDS: BUDESONIDE 0.5 MG/2 ML NEBU INHALATION SCH (08:39)
[2021-04-08] MEDS: IPRATROPIUM-ALBUTEROL 3 ML NEB INHALATION SCH (08:39)
[2021-04-08] MEDS: INSULIN ASPART (NovoLOG) 100 UNIT/ML VIAL SQ SCH (08:50)
[2021-04-08] MEDS: methylPREDNISolone SOD SUCCI 40 MG/ML 1 ML VIAL IV SCH (08:52)
[2021-04-08] MEDS: AZITHROMYCIN 500 MG TAB PO SCH (08:53)
[2021-04-08 11:51] LABS: Glucose,Whole Blood 122 mg/dL (75-99)
[2021-04-08 12:45] VITALS: PULSE 85
--- NOTE | 2021-04-08 17:46 | P.PN ---
Subjective Progress Note Date: 04/08/21 Principal diagnosis: worsening shortness of breath patient presented the hospital with worsening shortness of breath was cemented first exacerbation of COPD. Patient was sold her skin be possible discharge this morning and by the time I rounded at 1500 patient had left AMA. Objective - Vital Signs Vital signs: Vital Signs Temp 97.5 F L 04/08/21 07:00 Pulse 84 04/08/21 08:52 Resp 16 04/08/21 08:00 BP 137/78 04/08/21 07:00 Pulse Ox 92 L 04/08/21 07:00 Intake & Output 04/07/21 04/08/21 04/08/21 18:59 06:59 18:59 Intake Total 354 118 Balance 354 118 Weight 68.039 kg Intake: Oral 354 118 Other: # Voids 2 1 # Bowel Movements 0 - Exam unable to perform exam as patient left AMA 6 hours prior - Labs CBC & Chem 7: 04/07/21 03:33 04/07/21 03:33 Labs: Abnormal Lab Results - Last 24 Hours (Table) 04/07/21 04/07/21 04/08/21 Range/Units 17:48 20:30 07:23 POC Glucose (mg/dL) 124 H 157 H 128 H (75-99) mg/dL 04/08/21 Range/Units 11:50 POC Glucose (mg/dL) 122 H (75-99) mg/dL Assessment and Plan (1) Acute exacerbation of chronic obstructive airways disease Status: Acute Code(s): J44.1 - CHRONIC OBSTRUCTIVE PULMONARY DISEASE W (ACUTE) EXACERBATION SNOMED Code(s): 160321398 (2) Acute respiratory distress syndrome in adult Status: Acute Code(s): J80 - ACUTE RESPIRATORY DISTRESS SYNDROME SNOMED Code(s): 90482494 (3) COPD exacerbation Status: Acute Code(s): J44.1 - CHRONIC OBSTRUCTIVE PULMONARY DISEASE W (ACUTE) EXACERBATION SNOMED Code(s): 684042879 (4) Hypoxia Status: Acute Code(s): R09.02 - HYPOXEMIA SNOMED Code(s): 484190411 (5) Nicotine dependence Status: Acute Code(s): F17.200 - NICOTINE DEPENDENCE, UNSPECIFIED, UNCOMPLICATED SNOMED Code(s): 46138160 (6) Shortness of breath Status: Acute Code(s): R06.02 - SHORTNESS OF BREATH SNOMED Code(s): 688949032 Plan: will contact patient from office to ensure follow-up Time with Patient: Less than 30
== END 2021-04-08 12:24 | disposition home or self-care (01) ==
LOC: EC 03:02 → 6NMEDSUR 06:48
PROVIDERS: ADMIT Family Medicine; ATTEND Family Medicine
DX: J44.1 Chronic obstructive pulmonary disease with (acute) exacerbation (principal); J80 Acute respiratory distress syndrome; F17.200 Nicotine dependence, unspecified, uncomplicated; K21.9 Gastro-esophageal reflux disease without esophagitis; I48.0 Paroxysmal atrial fibrillation; I48.92 Unspecified atrial flutter; N40.0 Benign prostatic hyperplasia without lower urinary tract symptoms; K59.00 Constipation, unspecified; G89.29 Other chronic pain; M54.50 Low back pain, unspecified; J84.10 Pulmonary fibrosis, unspecified; R42 Dizziness and giddiness; I10 Essential (primary) hypertension; E66.9 Obesity, unspecified; Z68.26 Body mass index [BMI] 26.0-26.9, adult; Z20.822 Contact with and (suspected) exposure to COVID-19; Z53.29 Procedure and treatment not carried out because of patient's decision for other reasons; Z87.01 Personal history of pneumonia (recurrent); Z87.09 Personal history of other diseases of the respiratory system; Z86.16 Personal history of COVID-19; Z79.899 Other long term (current) drug therapy; Z79.01 Long term (current) use of anticoagulants; Z79.83 Long term (current) use of bisphosphonates; Z79.51 Long term (current) use of inhaled steroids; Z91.041 Radiographic dye allergy status; Z91.040 Latex allergy status; Z71.6 Tobacco abuse counseling; Z96.1 Presence of intraocular lens; Z82.49 Family history of ischemic heart disease and other diseases of the circulatory system; Z81.8 Family history of other mental and behavioral disorders
CPT/HCPCS: 96376 ×2; 96365; 96366; 96375; 99285; 36415; 94640 ×4; 94760; 93005; 83880; 80053; 83605; 83735; 84484; 85025; 85610; 85730; 87635; 71046; G0378 ×2; J2920 ×2; J2930; J0696 ×2; J7512

== ENCOUNTER 2021-06-29 18:41 | Emergency (ER) | payer MEDICARE ==
[2021-06-29 19:01] VITALS: TEMP 98
[2021-06-29 19:29] LABS: Basophils % (A) 0 %; Eosinophils # (A) 0.1 k/uL (0-0.7); Eosinophils % (A) 1 %; HCT 43.5 % (39.0-53.0); Lymphocytes % (A) 9 %; MCH 31.4 pg (25.0-35.0); MCHC 32.3 g/dL (31.0-37.0); MCV 97.3 fL (80.0-100.0); Mean Platelet Volume 7.6; Monocytes # (A) 0.8 k/uL (0-1.0); Monocytes % (A) 7 %; Neutrophils # (A) 8.9 k/uL (1.3-7.7); Neutrophils % (A) 81 %; Platelet Count 222 k/uL (150-450); RBC 4.46 m/uL (4.30-5.90); RDW 12.2 % (11.5-15.5)
--- NOTE | 2021-06-29 19:31 | XR ---
EXAMINATION: XR chest 2V DATE AND TIME: 06/29/2021 7:23 PM CLINICAL INDICATION: PHH; difficulty breathing TECHNIQUE: Departmental protocol COMPARISON: 06/06/2021 FINDINGS: The lungs demonstrate the same widespread bilateral chronic interstitial fibrosis radiographic patter n as on the prior study of 06/06/2021. An acute interstitial phase pulmonary edema or other interstitia l cannot be excluded radiographically. The pleural spaces are negative. The cardiac silhouette is not enlarged. The remainder of the mediastinal silhouette is unremarkable. The skeletal structures and soft tissues are negative for acute findings. IMPRESSION: Similar radiographic appearance when compared to the L4 522 study.
[2021-06-29 19:39] LABS: ALT 26 U/L (4-49); AST 23 U/L (17-59); African American GFR (CKD) >90 (>60 ml/min/1.73 sqM); Albumin 3.8 g/dL (3.5-5.0); Alkaline Phosphatase 82 U/L (38-126); Anion Gap 7 mmol/L; Blood Urea Nitrogen 27 mg/dL (9-20); Calcium 9.1 mg/dL (8.4-10.2); Carbon Dioxide 24 mmol/L (22-30); Chloride 105 mmol/L (98-107); Glucose 97 mg/dL (74-99); Non-African American GFR(CKD) 81 (>60 ml/min/1.73 sqM); Potassium 4.1 mmol/L (3.5-5.1); Sodium 136 mmol/L (137-145); Total Bilirubin 0.5 mg/dL (0.2-1.3); Total Protein 6.7 g/dL (6.3-8.2)
[2021-06-29 19:41] LABS: Partial Thromboplastin Time 26.1 sec (22.0-30.0); Prothrombin Time 10.8 sec (9.0-12.0)
[2021-06-29] MEDS ORDERED: IPRATROPIUM 0.5 MG/2.5 ML NEBU INHALATION STA (20:31)
[2021-06-29] MEDS ORDERED: ALBUTEROL NEBULIZED 2.5 MG/3 ML INHALATION STA (20:31)
--- NOTE | 2021-06-29 20:47 | ED ---
General Adult HPI - General Chief complaint: Shortness of Breath Stated complaint: SOB Time Seen by Provider: 06/29/21 20:19 Source: patient Mode of arrival: ambulatory Limitations: no limitations - History of Present Illness Initial comments: Dictation was produced using [employer] dictation software. please excuse any grammatical, word or spelling errors. Chief Complaint: 76-year-old male with history of COPD A. fib A flutter presents the year for shortness of breath. History of Present Illness: 76-year-old male he is well-known to emergency department for multiple episodes of shortness of breath. Patient has history of COPD. He continues to smoke cigarettes. He is accompanied by family friend at the bedside states that patient has been having shortness of breath. Patient states that he was recently indicative emergency department where he was worked up and prescribed doxycycline and steroids. He was tested for covered recently. She denies any respiratory infectious symptoms. He's had 3-4 days of doxycycline and prednisone. Patient has any fever or constitutional symptoms. The ROS documented in this emergency department record has been reviewed and confirmed by me. Those systems with pertinent positive or negative responses have been documented in the HPI. All other systems are other negative and/or noncontributory. PHYSICAL EXAM: General Impression: Alert and oriented x3, not in acute distress HEENT: Normocephalic atraumatic, extra-ocular movements intact, pupils equal and reactive to light bilaterally, mucous membranes moist. Cardiovascular: Heart regular rate and rhythm Chest: Able to complete full sentences, no retractions, no tachypnea Abdomen: abdomen soft, non-tender, non-distended, no organomegaly Musculoskeletal: Pulses present and equal in all extremities, no peripheral edema Motor: no focal deficits noted Neurological: CN II-XII grossly intact, no focal motor or sensory deficits noted Skin: Intact with no visualized rashes Psych: Normal affect and mood ED course: 76-year-old well-appearing male presents emergency department for chief complaint of shortness of breath. Vital signs are stable. Patient has extensive history of COPD. Patient is well-known to emergency Department for COPD exacerbations. Physical examination is benign. Vital signs are within acceptable limits. Patient not hypoxic. He is in no respiratory distress. Patient requested breathing treatment and is agreeable for discharge after. He is to be on all the appropriate medications currently to treat COPD. He is told to follow-up with his primary care doctor and/or block hand. - Related Data Home Medications Medication Instructions Recorded Confirmed Tamsulosin HCl [Flomax] 0.4 mg PO BID 03/24/18 04/07/21 Apixaban [Eliquis] 5 mg PO BID 09/14/18 04/07/21 Metoprolol Tartrate [Lopressor] 50 mg PO BID 02/04/19 04/07/21 Ergocalciferol [Vitamin D2 1,250 mcg PO GROVES 05/05/19 04/07/21 (DRISDOL)] Alendronate Sodium [Fosamax] 70 mg PO GROVES 08/21/19 04/07/21 Budesonide/Formoterol Fumarate 2 puff INHALATION RT-BID 05/21/20 04/07/21 [Symbicort 160-4.5 Mcg Inhaler] Ipratropium-Albuterol Nebulize 3 ml INHALATION RT-Q4H PRN 09/23/20 04/07/21 [Duoneb 0.5 mg-3 mg/3 ml Soln] Umeclidinium Elmo [Incruse 1 puff INHALATION RT-DAILY 09/23/20 04/07/21 Ellipta] Fluticasone/Salmeterol [Advair 1 puff INHALATION RT-BID 04/07/21 04/07/21 250-50 Diskus] Gabapentin [Neurontin] 100 mg PO BID 04/07/21 04/07/21 Previous Rx's Medication Instructions Recorded Albuterol Inhaler [Ventolin Hfa 1 puff INHALATION RT-QID #8 gm 12/17/20 Inhaler] Allergies Allergy/AdvReac Type Severity Reaction Status Date / Time Iodinated Contrast Media Allergy Rash/Hives Verified 06/06/21 20:50 [Iodinated Contrast- Oral and IV Dye] latex Allergy Rash/Hives Verified 06/06/21 20:50 Review of Systems ROS Statement: Those systems with pertinent positive or pertinent negative responses have been documented in the HPI. ROS Other: All systems not noted in ROS Statement are negative. Past Medical History Past Medical History: Atrial Fibrillation, Atrial Flutter, COPD, GERD/Reflux, Pneumonia, Prostate Disorder Additional Past Medical History / Comment(s): Paroxysmal Afib, bronchitis, BPH, constipation, vertigo, chronic low back pain/DDD. covid 06/22 History of Any Multi-Drug Resistant Organisms: None Reported Past Surgical History: Back Surgery Additional Past Surgical History / Comment(s): Bilateral cataract removals-lens implants, colonoscopy, multiple kyphoplasties. Past Anesthesia/Blood Transfusion Reactions: No Reported Reaction Additional Past Anesthesia/Blood Transfusion Reaction / Comment(s): Has never received any blood transfusions. Past Psychological History: No Psychological Hx Reported Smoking Status: Current every day smoker Past Alcohol Use History: None Reported Past Drug Use History: None Reported - Past Family History Mother Family Medical History: AFIB, Dementia Father Family Medical History: Myocardial Infarction ([place]) Additional Family Medical History / Comment(s): in his 70's [place] General Exam Limitations: no limitations Course Vital Signs 06/29/21 06/29/21 18:58 20:28 Temperature 98.0 F Pulse Rate 84 Respiratory 22 22 Rate Blood Pressure 139/79 O2 Sat by Pulse 95 Oximetry Medical Decision Making - Lab Data Result diagrams: 06/29/21 19:11 06/29/21 19:11 Lab Results 06/29/21 06/29/21 06/29/21 Range/Units 19:11 19:11 19:11 WBC 11.0 H (3.8-10.6) k/uL RBC 4.46 (4.30-5.90) m/uL Hgb 14.0 (13.0-17.5) gm/dL Hct 43.5 (39.0-53.0) % MCV 97.3 (80.0-100.0) fL MCH 31.4 (25.0-35.0) pg MCHC 32.3 (31.0-37.0) g/dL RDW 12.2 (11.5-15.5) % Plt Count 222 (150-450) k/uL MPV 7.6 Neutrophils % 81 % Lymphocytes % 9 % Monocytes % 7 % Eosinophils % 1 % Basophils % 0 % Neutrophils # 8.9 H (1.3-7.7) k/uL Lymphocytes # 1.0 (1.0-4.8) k/uL Monocytes # 0.8 (0-1.0) k/uL Eosinophils # 0.1 (0-0.7) k/uL Basophils # 0.0 (0-0.2) k/uL PT 10.8 (9.0-12.0) sec INR 1.0 (<1.2) APTT 26.1 (22.0-30.0) sec Sodium 136 L (137-145) mmol/L Potassium 4.1 (3.5-5.1) mmol/L Chloride 105 (98-107) mmol/L Carbon Dioxide 24 (22-30) mmol/L Anion Gap 7 mmol/L BUN 27 H (9-20) mg/dL Creatinine 0.92 (0.66-1.25) mg/dL Est GFR (CKD-EPI)AfAm >90 (>60 ml/min/1.73 sqM) Est GFR (CKD-EPI)NonAf 81 (>60 ml/min/1.73 sqM) Glucose 97 (74-99) mg/dL Plasma Lactic Acid Santi (0.7-2.0) mmol/L Calcium 9.1 (8.4-10.2) mg/dL Total Bilirubin 0.5 (0.2-1.3) mg/dL AST 23 (17-59) U/L ALT 26 (4-49) U/L Alkaline Phosphatase 82 (38-126) U/L Troponin I (0.000-0.034) ng/mL NT-Pro-B Natriuret Pep pg/mL Total Protein 6.7 (6.3-8.2) g/dL Albumin 3.8 (3.5-5.0) g/dL 06/29/21 06/29/21 06/29/21 Range/Units 19:11 19:11 19:11 WBC (3.8-10.6) k/uL RBC (4.30-5.90) m/uL Hgb (13.0-17.5) gm/dL Hct (39.0-53.0) % MCV (80.0-100.0) fL MCH (25.0-35.0) pg MCHC (31.0-37.0) g/dL RDW (11.5-15.5) % Plt Count (150-450) k/uL MPV Neutrophils % % Lymphocytes % % Monocytes % % Eosinophils % % Basophils % % Neutrophils # (1.3-7.7) k/uL Lymphocytes # (1.0-4.8) k/uL Monocytes # (0-1.0) k/uL Eosinophils # (0-0.7) k/uL Basophils # (0-0.2) k/uL PT (9.0-12.0) sec INR (<1.2) APTT (22.0-30.0) sec Sodium (137-145) mmol/L Potassium (3.5-5.1) mmol/L Chloride (98-107) mmol/L Carbon Dioxide (22-30) mmol/L Anion Gap mmol/L BUN (9-20) mg/dL Creatinine (0.66-1.25) mg/dL Est GFR (CKD-EPI)AfAm (>60 ml/min/1.73 sqM) Est GFR (CKD-EPI)NonAf (>60 ml/min/1.73 sqM) Glucose (74-99) mg/dL Plasma Lactic Acid Santi 1.2 (0.7-2.0) mmol/L Calcium (8.4-10.2) mg/dL Total Bilirubin (0.2-1.3) mg/dL AST (17-59) U/L ALT (4-49) U/L Alkaline Phosphatase (38-126) U/L Troponin I <0.012 (0.000-0.034) ng/mL NT-Pro-B Natriuret Pep 55 pg/mL Total Protein (6.3-8.2) g/dL Albumin (3.5-5.0) g/dL Disposition Clinical Impression: COPD exacerbation Disposition: HOME SELF-CARE Condition: Fair Instructions (If sedation given, give patient instructions): COPD (Chronic Obstructive Pulmonary Disease) (ED) Is patient prescribed a controlled substance at d/c from ED?: No Referrals: Fernando Lambert Jr, [Primary Care Provider] - 1-2 days
[2021-06-29 21:43] VITALS: BP 104/74; PULSE 77; RESP 20
== END 2021-06-29 21:31 | disposition home or self-care (01) ==
LOC: EC 18:41
DX: J44.1 Chronic obstructive pulmonary disease with (acute) exacerbation (principal); I48.0 Paroxysmal atrial fibrillation; I48.92 Unspecified atrial flutter; K21.9 Gastro-esophageal reflux disease without esophagitis; N40.0 Benign prostatic hyperplasia without lower urinary tract symptoms; F17.210 Nicotine dependence, cigarettes, uncomplicated; Z79.01 Long term (current) use of anticoagulants; Z79.51 Long term (current) use of inhaled steroids; Z86.16 Personal history of COVID-19; Z79.899 Other long term (current) drug therapy
CPT/HCPCS: 36415; 71046; 80053; 83605; 83880; 84484; 85025; 85610; 85730; 93005; 94640; 99285

== ENCOUNTER 2021-07-14 19:27 | Observation (INO) | payer MEDICARE ==
[2021-07-14] MEDS ORDERED: ALBUTEROL NEBULIZED 2.5 MG/3 ML INHALATION STA (22:16)
[2021-07-14] MEDS ORDERED: IPRATROPIUM-ALBUTEROL 3 ML NEB INHALATION STA (22:16)
--- NOTE | 2021-07-14 22:19 | ED ---
SOB HPI - General Chief Complaint: Shortness of Breath Stated Complaint: SOB Time Seen by Provider: 07/14/21 21:51 Source: patient Mode of arrival: ambulatory Limitations: no limitations - History of Present Illness Initial Comments: This patient is a 76-year-old man with history of chronic lung disease who presents with worsening of his usual respiratory condition. He states that he has had an increase in cough and wheezing since yesterday. Today he used his home inhaled medications at 4 and then he was feeling short of breath again by 5:30. He did take another treatment and then came here to be seen when he was not feeling significantly better. He has not noted fever or chills. No chest pain. No change in his sputum. No change in urination or bowel movements. No leg pain or swelling. MD Complaint: shortness of breath, cough Onset/Timin -: days(s) Severity scale (1-10): 0 Consistency: constant Improves With: bronchodilators Worsens With: nothing Known History Of: COPD Associated Symptoms: denies other symptoms Treatments Prior to Arrival: bronchodilator - Related Data Home Oxygen Therapy: No Home Medications Medication Instructions Recorded Confirmed Tamsulosin HCl [Flomax] 0.4 mg PO BID 03/24/18 07/14/21 Apixaban [Eliquis] 5 mg PO BID 09/14/18 07/14/21 Metoprolol Tartrate [Lopressor] 50 mg PO BID 02/04/19 07/14/21 Ergocalciferol [Vitamin D2 1,250 mcg PO GROVES 05/05/19 07/14/21 (DRISDOL)] Alendronate Sodium [Fosamax] 70 mg PO GROVES 08/21/19 07/14/21 Budesonide/Formoterol Fumarate 2 puff INHALATION RT-BID 05/21/20 07/14/21 [Symbicort 160-4.5 Mcg Inhaler] Ipratropium-Albuterol Nebulize 3 ml INHALATION RT-QID 09/23/20 07/14/21 [Duoneb 0.5 mg-3 mg/3 ml Soln] Fluticasone/Salmeterol [Advair 1 puff INHALATION RT-BID 04/07/21 07/14/21 250-50 Diskus] Gabapentin [Neurontin] 100 mg PO BID 04/07/21 07/14/21 Albuterol Inhaler [Ventolin Hfa 1 puff INHALATION RT-Q4H PRN 07/14/21 07/14/21 Inhaler] Previous Rx's Medication Instructions Recorded predniSONE [Deltasone] 20 mg PO BID #8 tab 07/15/21 Allergies Allergy/AdvReac Type Severity Reaction Status Date / Time Iodinated Contrast Media Allergy Rash/Hives Verified 07/14/21 22:57 [Iodinated Contrast- Oral and IV Dye] latex Allergy Rash/Hives Verified 07/14/21 22:57 Review of Systems ROS Statement: Those systems with pertinent positive or pertinent negative responses have been documented in the HPI. ROS Other: All systems not noted in ROS Statement are negative. Constitutional: Denies: fever, chills Respiratory: Reports: cough, dyspnea, wheezes. Denies: hemoptysis, stridor Cardiovascular: Denies: chest pain, palpitations, orthopnea, edema, syncope Gastrointestinal: Denies: abdominal pain, vomiting, diarrhea Genitourinary: Denies: dysuria, hematuria Musculoskeletal: Denies: back pain Skin: Denies: rash Neurological: Denies: headache Past Medical History Past Medical History: Atrial Fibrillation, Atrial Flutter, COPD, GERD/Reflux, Pneumonia, Prostate Disorder Additional Past Medical History / Comment(s): Paroxysmal Afib, bronchitis, BPH, constipation, vertigo, chronic low back pain/DDD. covid 06/22 History of Any Multi-Drug Resistant Organisms: None Reported Past Surgical History: Back Surgery Additional Past Surgical History / Comment(s): Bilateral cataract removals-lens implants, colonoscopy, multiple kyphoplasties. Past Anesthesia/Blood Transfusion Reactions: No Reported Reaction Additional Past Anesthesia/Blood Transfusion Reaction / Comment(s): Has never received any blood transfusions. Past Psychological History: No Psychological Hx Reported Smoking Status: Current every day smoker Past Alcohol Use History: None Reported Past Drug Use History: None Reported - Past Family History Mother Family Medical History: AFIB, Dementia Father Family Medical History: Myocardial Infarction ([place]) Additional Family Medical History / Comment(s): in his 70's [place] General Exam Limitations: no limitations General appearance: alert, in no apparent distress Head exam: Present: atraumatic, normocephalic Eye exam: Present: normal appearance. Absent: scleral icterus, conjunctival injection Neck exam: Present: normal inspection Respiratory exam: Present: wheezes. Absent: respiratory distress, rales, rhonchi, stridor, accessory muscle use Cardiovascular Exam: Present: regular rate, normal rhythm, normal heart sounds. Absent: systolic murmur, diastolic murmur, rubs, gallop GI/Abdominal exam: Present: soft. Absent: distended, tenderness, guarding, rebound, rigid, mass Extremities exam: Present: normal inspection, normal capillary refill. Absent: pedal edema, calf tenderness Neurological exam: Present: alert Skin exam: Present: warm, dry, intact, normal color. Absent: rash Course Vital Signs 07/14/21 07/14/21 07/14/21 19:38 22:25 22:37 Temperature 98.2 F Pulse Rate 88 88 80 Respiratory 24 16 Rate Blood Pressure 118/68 104/56 O2 Sat by Pulse 95 100 Oximetry 07/14/21 22:44 Temperature Pulse Rate 88 Respiratory Rate Blood Pressure O2 Sat by Pulse Oximetry Medical Decision Making - Lab Data Lab Results 07/14/21 Range/Units 22:41 Coronavirus (PCR) Not Detected (Not Detectd) Disposition Clinical Impression: COPD with acute exacerbation Disposition: HOME SELF-CARE Condition: Good Instructions (If sedation given, give patient instructions): COPD (Chronic Obstructive Pulmonary Disease) (ED) Prescriptions: predniSONE [Deltasone] 20 mg PO BID #8 tab Is patient prescribed a controlled substance at d/c from ED?: No Referrals: Fernando Lambert Jr, DO [Primary Care Provider] - 1-2 days
[2021-07-15] MEDS ORDERED: ALBUTEROL NEBULIZED 2.5 MG/3 ML INHALATION STA (00:15)
[2021-07-15] MEDS ORDERED: predniSONE 20 MG TAB PO STA (00:18)
[2021-07-15] MEDS ORDERED: ALBUTEROL NEBULIZED 2.5 MG/3 ML INHALATION PRN (00:39)
[2021-07-15 00:46] LABS: Basophils % (A) 1 %; Eosinophils # (A) 0.3 k/uL (0-0.7); Eosinophils % (A) 3 %; HCT 43.8 % (39.0-53.0); HGB 14.6 gm/dL (13.0-17.5); Lymphocytes # (A) 1.4 k/uL (1.0-4.8); Lymphocytes % (A) 16 %; MCH 32.3 pg (25.0-35.0); MCHC 33.4 g/dL (31.0-37.0); MCV 96.8 fL (80.0-100.0); Mean Platelet Volume 7.3; Monocytes # (A) 0.5 k/uL (0-1.0); Monocytes % (A) 6 %; Neutrophils # (A) 5.9 k/uL (1.3-7.7); Neutrophils % (A) 71 %; Platelet Count 228 k/uL (150-450); RBC 4.53 m/uL (4.30-5.90); RDW 12.8 % (11.5-15.5); WBC 8.2 k/uL (3.8-10.6)
--- NOTE | 2021-07-15 01:04 | XR ---
EXAMINATION TYPE: XR chest 2V DATE OF EXAM: 07/15/2021 COMPARISON: 06/29/2021 HISTORY: Short of breath TECHNIQUE: FINDINGS: There is coarse interstitial infiltrate in both lungs. There is poor inspiration. There is thoracic vertebroplasty noted. There is multilevel thoracic and lumbar vertebroplasty. No pleural eff usion. No heart failure. IMPRESSION: Pulmonary interstitial fibrosis. Normal heart. No change compared to old exam.
[2021-07-15 01:31] LABS: Calcium 8.9 mg/dL (8.4-10.2); Potassium 3.8 mmol/L (3.5-5.1)
[2021-07-15] MEDS ORDERED: SYMBICORT 80-4.5 MCG INHALER INHALATION SCH (08:00)
[2021-07-15 08:25] VITALS: BP 124/74; RESP 16; TEMP 97.3
[2021-07-15] MEDS: IPRATROPIUM-ALBUTEROL 3 ML NEB INHALATION SCH ×2 (08:50→12:34)
[2021-07-15] MEDS ORDERED: predniSONE 20 MG TAB PO SCH (09:00)
[2021-07-15] MEDS ORDERED: METOPROLOL TARTRATE 50 MG TAB PO SCH (09:00)
[2021-07-15] MEDS ORDERED: TAMSULOSIN 0.4 MG CAP.ER.24H PO SCH (09:00)
[2021-07-15] MEDS ORDERED: APIXABAN 5 MG TAB PO SCH (09:00)
[2021-07-15] MEDS ORDERED: GABAPENTIN 100 MG CAP PO SCH (09:00)
[2021-07-15 12:45] VITALS: PULSE 84
[2021-07-15] MEDS ORDERED: ALBUTEROL HFA INHALER INHALATION PRN (13:34)
--- NOTE | 2021-07-15 13:34 | P.HPIM ---
History of Present Illness H&P Date: 07/15/21 Chief Complaint: Shortness of breath Mr. Mahoney is a 76-year-old male patient well-known to our practice. He has a long-standing history of tobacco abuse smokes one pack of cigarettes a day and is oxygen-dependent steroid-dependent chronic obstructive pulmonary d isease and presented to the emergency room with acute exacerbation of chronic COPD no chest pain persistent cough persistent wheeze Review of Systems Constitutional: Reports as per HPI Ears, nose, mouth and throat: Reports as per HPI Cardiovascular: Reports as per HPI, Reports dyspnea on exertion Respiratory: Reports congestion, Reports cough, Reports dyspnea Gastrointestinal: Reports as per HPI Genitourinary: Reports as per HPI Musculoskeletal: Reports as per HPI Integumentary: Reports as per HPI Neurological: Reports as per HPI Psychiatric: Reports as per HPI Past Medical History Past Medical History: Atrial Fibrillation, Atrial Flutter, COPD, GERD/Reflux, Pneumonia, Prostate Disorder Additional Past Medical History / Comment(s): Paroxysmal Afib, bronchitis, BPH, constipation, vertigo, chronic low back pain/DDD. covid 06/22 History of Any Multi-Drug Resistant Organisms: None Reported Past Surgical History: Back Surgery Additional Past Surgical History / Comment(s): Bilateral cataract removals-lens implants, colonoscopy, multiple kyphoplasties. Past Anesthesia/Blood Transfusion Reactions: No Reported Reaction Additional Past Anesthesia/Blood Transfusion Reaction / Comment(s): Has never received any blood transfusions. Past Psychological History: No Psychological Hx Reported Additional Psychological History / Comment(s): Pt resides with his son, (Jt) and grandson. They live in a trailer. Pt manages his own medications. He has a nebulizer. His son cooks and drives pt to [employer]. Pt uses a walker/wheelchair. He has a nebulizer. Smoking Status: Current every day smoker Past Alcohol Use History: None Reported Additional Past Alcohol Use History / Comment(s): Pt started smoking age 12(1958) got up to 5 ppd for many years then cut down to 3 ppd, currently smoking 2 ppd. Past Drug Use History: None Reported - Past Family History Mother Family Medical History: AFIB, Dementia Father Family Medical History: Myocardial Infarction ([place]) Additional Family Medical History / Comment(s): in his 70's [place] Medications and Allergies Home Medications Medication Instructions Recorded Confirmed Type Tamsulosin HCl [Flomax] 0.4 mg PO BID 03/24/18 07/14/21 History Apixaban [Eliquis] 5 mg PO BID 09/14/18 07/14/21 History Metoprolol Tartrate [Lopressor] 50 mg PO BID 02/04/19 07/14/21 History Ergocalciferol [Vitamin D2 1,250 mcg PO GROVES 05/05/19 07/14/21 History (DRISDOL)] Alendronate Sodium [Fosamax] 70 mg PO GROVES 08/21/19 07/14/21 History Budesonide/Formoterol Fumarate 2 puff INHALATION RT-BID 05/21/20 07/14/21 History [Symbicort 160-4.5 Mcg Inhaler] Ipratropium-Albuterol Nebulize 3 ml INHALATION RT-QID 09/23/20 07/14/21 History [Duoneb 0.5 mg-3 mg/3 ml Soln] Fluticasone/Salmeterol [Advair 1 puff INHALATION RT-BID 04/07/21 07/14/21 History 250-50 Diskus] Gabapentin [Neurontin] 100 mg PO BID 04/07/21 07/14/21 History Albuterol Inhaler [Ventolin Hfa 1 puff INHALATION RT-Q4H PRN 07/14/21 07/14/21 History Inhaler] predniSONE [Deltasone] 20 mg PO BID #8 tab 07/15/21 Rx Allergies Allergy/AdvReac Type Severity Reaction Status Date / Time Iodinated Contrast Media Allergy Rash/Hives Verified 07/14/21 22:57 [Iodinated Contrast- Oral and IV Dye] latex Allergy Rash/Hives Verified 07/14/21 22:57 Physical Exam Osteopathic Statement: *. No significant issues noted on an osteopathic structural exam other than those noted in the History and Physical/Consult. Vitals: Vital Signs Temp Pulse Pulse Resp BP BP Pulse Ox 07/15/21 12:44 84 07/15/21 12:34 80 07/15/21 09:01 88 07/15/21 08:50 88 07/15/21 07:00 97.3 F L 95 16 124/74 91 L 07/15/21 01:57 97.9 F 86 116/77 93 L 07/15/21 01:05 97.8 F 88 18 116/66 96 07/15/21 00:41 84 07/15/21 00:31 84 07/14/21 22:44 88 07/14/21 22:37 80 16 104/56 100 07/14/21 22:25 88 07/14/21 19:38 98.2 F 88 24 118/68 95 Intake and Output 07/14/21 07/15/21 07/15/21 22:59 06:59 14:59 Other: # Voids 2 Weight 70.307 kg 70.307 kg General: [Patient awake, alert and oriented times 3. Patient in no acute distress.] HEENT: [PERRL. EOMI. No pharyngeal erythema or exudate.] Neck: [No adenopathy.] Cardiac: [Heart regular in rate and rhythm. No S3. No S4. No clicks, rubs. No murmur.] Lungs: Bilateral wheezes with rhonchi Abdomen: [No mass. No organomegaly. Bowel sounds presnt and normoactive in all 4 quadrants.] Extremes: [No edema no cyanosis no claudication normal pulses] : Normal male genitalia Musculoskeletal: [No joint erythema, edema or tenderness.] Skin: [No rash.] Neurologic: [No lateralizing deficits. CN II - XII grossly intact.] Lymphatic: [No adenopathy.] Results CBC & Chem 7: 07/15/21 00:30 07/15/21 00:30 Labs: Abnormal Lab Results - Last 24 Hours (Table) 07/15/21 Range/Units 00:30 Glucose 126 H (74-99) mg/dL Thrombosis Risk Factor Assmnt - Choose All That Apply Each Factor Represents 1 point: Abnormal pulmonary function (COPD), Obesity (BMI >25) Each Risk Factor Represents 3 Points: Age 75 years or older Thrombosis Risk Factor Assessment Total Risk Factor Score: 5 Thrombosis Risk Factor Assessment Level: High Risk Assessment and Plan (1) COPD with acute exacerbation Current Visit: Yes Status: Acute Code(s): J44.1 - CHRONIC OBSTRUCTIVE PULMONARY DISEASE W (ACUTE) EXACERBATION SNOMED Code(s): 645784192 (2) Acute exacerbation of chronic obstructive airways disease Current Visit: No Status: Acute Code(s): J44.1 - CHRONIC OBSTRUCTIVE PULMONARY DISEASE W (ACUTE) EXACERBATION SNOMED Code(s): 430709387 (3) Atrial fibrillation Current Visit: No Status: Acute Code(s): I48.91 - UNSPECIFIED ATRIAL FIBRILLATION SNOMED Code(s): 55695900 (4) BPH (benign prostatic hyperplasia) Current Visit: No Status: Acute Code(s): N40.0 - BENIGN PROSTATIC HYPERPLASIA WITHOUT LOWER URINRY TRACT SYMP SNOMED Code(s): 888944123 (5) BiPAP (biphasic positive airway pressure) dependence Current Visit: No Status: Acute Code(s): Z99.89 - DEPENDENCE ON OTHER ENABLING MACHINES AND DEVICES SNOMED Code(s): 051385877 (6) Hypoxia Current Visit: No Status: Acute Code(s): R09.02 - HYPOXEMIA SNOMED Code(s): 040650221 (7) Nicotine dependence Current Visit: No Status: Acute Code(s): F17.200 - NICOTINE DEPENDENCE, UNSPECIFIED, UNCOMPLICATED SNOMED Code(s): 09852911 Plan: Acute exacerbation of chronic COPD O2 dependent Steroid-dependent BiPAP dependent IV steroids, IV antibiotics, long-acting beta agonist inhaled, long-acting corticosteroids and inhaled, We'll follow patient closely aggressive rehydration will discharge home when appropriate Time with Patient: Greater than 30
--- NOTE | 2021-07-15 13:44 | P.DS ---
Providers Date of admission: 07/15/21 00:46 Expected date of discharge: 07/15/21 Attending physician: Fernando Lambert Consults: none Primary care physician: Fernando Lambert - Discharge Diagnosis(es) (1) COPD with acute exacerbation Current Visit: Yes Status: Acute (2) Acute exacerbation of chronic obstructive airways disease Current Visit: No Status: Acute (3) Atrial fibrillation Current Visit: No Status: Acute (4) BPH (benign prostatic hyperplasia) Current Visit: No Status: Acute (5) BiPAP (biphasic positive airway pressure) dependence Current Visit: No Status: Acute (6) Hypoxia Current Visit: No Status: Acute (7) Nicotine dependence Current Visit: No Status: Acute Patient Condition at Discharge: Good Plan - Discharge Summary New Discharge Prescriptions: New predniSONE [Deltasone] 20 mg PO BID #8 tab No Action Tamsulosin HCl [Flomax] 0.4 mg PO BID Apixaban [Eliquis] 5 mg PO BID Metoprolol Tartrate [Lopressor] 50 mg PO BID Ergocalciferol [Vitamin D2 (DRISDOL)] 1,250 mcg PO GROVES Alendronate Sodium [Fosamax] 70 mg PO GROVES Budesonide/Formoterol Fumarate [Symbicort 160-4.5 Mcg Inhaler] 2 puff INHALATION RT-BID Ipratropium-Albuterol Nebulize [Duoneb 0.5 mg-3 mg/3 ml Soln] 3 ml INHALATION RT-QID Fluticasone/Salmeterol [Advair 250-50 Diskus] 1 puff INHALATION RT-BID Gabapentin [Neurontin] 100 mg PO BID Albuterol Inhaler [Ventolin Hfa Inhaler] 1 puff INHALATION RT-Q4H PRN PRN Reason: Shortness Of Breath Discharge Medication List Tamsulosin HCl [Flomax] 0.4 mg PO BID 03/24/18 [History] Apixaban [Eliquis] 5 mg PO BID 09/14/18 [History] Metoprolol Tartrate [Lopressor] 50 mg PO BID 02/04/19 [History] Ergocalciferol [Vitamin D2 (DRISDOL)] 1,250 mcg PO GROVES 05/05/19 [History] Alendronate Sodium [Fosamax] 70 mg PO GROVES 08/21/19 [History] Budesonide/Formoterol Fumarate [Symbicort 160-4.5 Mcg Inhaler] 2 puff INHALATION RT-BID 05/21/20 [History] Ipratropium-Albuterol Nebulize [Duoneb 0.5 mg-3 mg/3 ml Soln] 3 ml INHALATION RT-QID 09/23/20 [History] Fluticasone/Salmeterol [Advair 250-50 Diskus] 1 puff INHALATION RT-BID 04/07/21 [History] Gabapentin [Neurontin] 100 mg PO BID 04/07/21 [History] Albuterol Inhaler [Ventolin Hfa Inhaler] 1 puff INHALATION RT-Q4H PRN 07/14/21 [History] predniSONE [Deltasone] 20 mg PO BID #8 tab 07/15/21 [Rx] Follow up Appointment(s)/Referral(s): Fernando Lambert Jr, [Primary Care Provider] - 1-2 days Patient Instructions/Handouts: COPD (Chronic Obstructive Pulmonary Disease) (ED)
[2021-07-15] MEDS ORDERED: IPRATROPIUM-ALBUTEROL 3 ML NEB INHALATION SCH (16:00)
[2021-07-15] MEDS ORDERED: SYMBICORT 160-4.5 MCG INHALER INHALATION SCH (20:00)
[2021-07-16] MEDS ORDERED: PATIENT'S OWN (Alendronate Sodium [Fosamax] 70 MG Tablet) PO SCH (07:00)
[2021-07-16] MEDS ORDERED: ERGOCALCIFEROL 1,250 MCG (50,000 IU) CAPSULE PO SCH (09:00)
== END 2021-07-15 14:29 | disposition home or self-care (01) ==
LOC: EC 19:27 → 6NMEDSUR 07-15 00:46
PROVIDERS: ADMIT Family Medicine; ATTEND Family Medicine
DX: J44.1 Chronic obstructive pulmonary disease with (acute) exacerbation (principal); I48.92 Unspecified atrial flutter; N40.0 Benign prostatic hyperplasia without lower urinary tract symptoms; R09.02 Hypoxemia; F17.210 Nicotine dependence, cigarettes, uncomplicated; I48.0 Paroxysmal atrial fibrillation; K21.9 Gastro-esophageal reflux disease without esophagitis; Z20.822 Contact with and (suspected) exposure to COVID-19; G89.29 Other chronic pain; M54.50 Low back pain, unspecified; E66.9 Obesity, unspecified; Z68.27 Body mass index [BMI] 27.0-27.9, adult; K59.00 Constipation, unspecified; Z79.83 Long term (current) use of bisphosphonates; Z79.51 Long term (current) use of inhaled steroids; Z79.01 Long term (current) use of anticoagulants; Z79.52 Long term (current) use of systemic steroids; Z79.899 Other long term (current) drug therapy; Z91.040 Latex allergy status; Z91.048 Other nonmedicinal substance allergy status; Z98.41 Cataract extraction status, right eye; Z98.42 Cataract extraction status, left eye; Z96.1 Presence of intraocular lens; Z99.81 Dependence on supplemental oxygen; Z87.01 Personal history of pneumonia (recurrent); Z82.49 Family history of ischemic heart disease and other diseases of the circulatory system
CPT/HCPCS: 99285; 36415; 94640 ×3; 93005; 80048; 84484; 85025; 87635; 71046; G0378; J7512

== ENCOUNTER 2021-07-22 14:30 | Emergency (ER) | payer MEDICARE ==
[2021-07-22 16:22] LABS: Appearance,Urine Clear (Clear); Bilirubin,Urine Negative (Negative); Blood,Urine Negative (Negative); Color,Urine Light Yellow; Glucose,Urine (UA) Negative (Negative); Ketones,Urine Negative (Negative); Leukocyte Esterase,Urine Negative (Negative); Nitrite,Urine Negative (Negative); Protein,Urine Negative (Negative); Urobilinogen,Urine <2.0 mg/dL (<2.0)
[2021-07-22 16:23] LABS: Basophils % (A) 1 %; Eosinophils # (A) 0.3 k/uL (0-0.7); Eosinophils % (A) 3 %; HCT 45.4 % (39.0-53.0); HGB 15.2 gm/dL (13.0-17.5); Lymphocytes # (A) 1.7 k/uL (1.0-4.8); Lymphocytes % (A) 21 %; MCH 32.3 pg (25.0-35.0); MCHC 33.4 g/dL (31.0-37.0); MCV 96.7 fL (80.0-100.0); Mean Platelet Volume 7.4; Monocytes # (A) 0.6 k/uL (0-1.0); Monocytes % (A) 8 %; Neutrophils # (A) 5.2 k/uL (1.3-7.7); Neutrophils % (A) 64 %; Platelet Count 240 k/uL (150-450); RDW 12.9 % (11.5-15.5); WBC 8.1 k/uL (3.8-10.6)
[2021-07-22 16:31] LABS: ALT 17 U/L (4-49); AST 20 U/L (17-59); African American GFR (CKD) >90 (>60 ml/min/1.73 sqM); Albumin 4.3 g/dL (3.5-5.0); Alkaline Phosphatase 67 U/L (38-126); Amylase 74 U/L (30-110); Anion Gap 8 mmol/L; Blood Urea Nitrogen 17 mg/dL (9-20); Calcium 9.2 mg/dL (8.4-10.2); Carbon Dioxide 25 mmol/L (22-30); Chloride 104 mmol/L (98-107); Glucose 101 mg/dL (74-99); Lipase 76 U/L (23-300); Non-African American GFR(CKD) 79 (>60 ml/min/1.73 sqM); Sodium 137 mmol/L (137-145); Total Bilirubin 0.6 mg/dL (0.2-1.3)
--- NOTE | 2021-07-22 17:17 | XR ---
EXAMINATION TYPE: XR KUB DATE OF EXAM: 07/22/2021 4:49 PM INDICATION: Patient age:Male; 76 years old; Reason for study: abd pain COMPARISON: None. TECHNIQUE: One radiographic view of the abdomen was obtained. FINDINGS: Multilevel vertebroplasty changes are present. Visualized lungs are are similar. The bowel gas pattern is nonspecific without dilated loops of small or large bowel. There is no evidence for or ganomegaly or pneumoperitoneum. The osseous structures are intact. No abnormal calcifications are p resent. Fecal material and gas are demonstrated throughout the colon and rectum. IMPRESSION: 1. Nonspecific bowel gas pattern without radiographic evidence for acute process. 2. Multilevel vertebroplasty changes spine.
--- NOTE | 2021-07-22 18:56 | ED ---
Abdominal Pain HPI - General Chief Complaint: Abdominal Pain Stated Complaint: Abd pain Time Seen by Provider: 07/22/21 16:30 Source: patient Mode of arrival: ambulatory Limitations: no limitations - History of Present Illness Initial Comments: Patient is a 76-year-old male presenting with chief complaint of abdominal pain. Patient states that he experiences abdominal pain "near the top" when he bends over. Patient states that he noticed this today. He has no discomfort at rest or when his abdomen is straight up. No radiation of the pain. No history of ulcers or pancreatitis. Denies nausea, vomiting, diarrhea, chest pain, shortness of breath, dizziness, weakness, palpitations, fever, chills, dysuria, hematuria, urgency, frequency. - Related Data Home Medications Medication Instructions Recorded Confirmed Tamsulosin HCl [Flomax] 0.4 mg PO BID 03/24/18 07/14/21 Apixaban [Eliquis] 5 mg PO BID 09/14/18 07/14/21 Metoprolol Tartrate [Lopressor] 50 mg PO BID 02/04/19 07/14/21 Ergocalciferol [Vitamin D2 1,250 mcg PO GROVES 05/05/19 07/14/21 (DRISDOL)] Alendronate Sodium [Fosamax] 70 mg PO GROVES 08/21/19 07/14/21 Budesonide/Formoterol Fumarate 2 puff INHALATION RT-BID 05/21/20 07/14/21 [Symbicort 160-4.5 Mcg Inhaler] Ipratropium-Albuterol Nebulize 3 ml INHALATION RT-QID 09/23/20 07/14/21 [Duoneb 0.5 mg-3 mg/3 ml Soln] Fluticasone/Salmeterol [Advair 1 puff INHALATION RT-BID 04/07/21 07/14/21 250-50 Diskus] Gabapentin [Neurontin] 100 mg PO BID 04/07/21 07/14/21 Albuterol Inhaler [Ventolin Hfa 1 puff INHALATION RT-Q4H PRN 07/14/21 07/14/21 Inhaler] Previous Rx's Medication Instructions Recorded predniSONE [Deltasone] 20 mg PO BID #8 tab 07/15/21 Allergies Allergy/AdvReac Type Severity Reaction Status Date / Time Iodinated Contrast Media Allergy Rash/Hives Verified 07/22/21 15:08 [Iodinated Contrast- Oral and IV Dye] latex Allergy Rash/Hives Verified 07/22/21 15:08 Review of Systems ROS Statement: Those systems with pertinent positive or pertinent negative responses have been documented in the HPI. ROS Other: All systems not noted in ROS Statement are negative. Past Medical History Past Medical History: Atrial Fibrillation, Atrial Flutter, COPD, GERD/Reflux, P neumonia, Prostate Disorder Additional Past Medical History / Comment(s): Paroxysmal Afib, bronchitis, BPH, constipation, vertigo, chronic low back pain/DDD. covid 06/22 History of Any Multi-Drug Resistant Organisms: None Reported Past Surgical History: Back Surgery Additional Past Surgical History / Comment(s): Bilateral cataract removals-lens implants, colonoscopy, multiple kyphoplasties. Past Anesthesia/Blood Transfusion Reactions: No Reported Reaction Additional Past Anesthesia/Blood Transfusion Reaction / Comment(s): Has never received any blood transfusions. Past Psychological History: No Psychological Hx Reported Smoking Status: Current every day smoker Past Alcohol Use History: None Reported Past Drug Use History: None Reported - Past Family History Mother Family Medical History: AFIB, Dementia Father Family Medical History: Myocardial Infarction ([place]) Additional Family Medical History / Comment(s): in his 70's [place] General Exam Limitations: no limitations General appearance: alert, in no apparent distress Head exam: Present: atraumatic, normocephalic, normal inspection Eye exam: Present: normal appearance, EOMI. Absent: scleral icterus Neck exam: Present: normal inspection Respiratory exam: Present: normal lung sounds bilaterally. Absent: respiratory distress, wheezes, rales, rhonchi, stridor Cardiovascular Exam: Present: regular rate, normal rhythm, normal heart sounds. Absent: systolic murmur, diastolic murmur, rubs, gallop, clicks GI/Abdominal exam: Present: soft, normal bowel sounds. Absent: distended, tenderness, guarding, rebound, rigid Back exam: Present: normal inspection Neurological exam: Present: alert, oriented X3, CN II-XII intact Psychiatric exam: Present: normal affect, normal mood Skin exam: Present: warm, dry, intact, normal color. Absent: rash Course Vital Signs 07/22/21 07/22/21 15:09 19:40 Temperature 97.9 F 97.6 F Pulse Rate 88 77 Respiratory 16 18 Rate Blood Pressure 114/71 122/78 O2 Sat by Pulse 95 96 Oximetry Medical Decision Making - Medical Decision Making Patient is a 76-year-old male presenting with chief complaint of abdominal pain. Patient states that he feels pain in the epigastric region when bending over, no pain at rest or with any other activity. Denies any chest pain, shortness of breath, nausea, vomiting, diarrhea. On exam abdomen is soft, nontender, nondistended with normal bowel sounds in all 4 quadrants. Lab work is grossly unremarkable. KUB x-ray is negative. EKG shows no acute changes. Patient appears stable for discharge with outpatient follow-up at this time. Educated patient on the findings. Answered all questions and counseled on return parameters and alarm symptoms. Report back to ER if any worsening symptoms. Follow-up with your PCP on Saturday. Patient conveyed verbal understanding and agreed to the plan. I discussed this case with my attending Dr. Espinosa. - Lab Data Result diagrams: 07/22/21 16:08 07/22/21 16:08 Lab Results 07/22/21 07/22/21 07/22/21 Range/Units 16:08 16:08 16:13 WBC 8.1 (3.8-10.6) k/uL RBC 4.70 (4.30-5.90) m/uL Hgb 15.2 (13.0-17.5) gm/dL Hct 45.4 (39.0-53.0) % MCV 96.7 (80.0-100.0) fL MCH 32.3 (25.0-35.0) pg MCHC 33.4 (31.0-37.0) g/dL RDW 12.9 (11.5-15.5) % Plt Count 240 (150-450) k/uL MPV 7.4 Neutrophils % 64 % Lymphocytes % 21 % Monocytes % 8 % Eosinophils % 3 % Basophils % 1 % Neutrophils # 5.2 (1.3-7.7) k/uL Lymphocytes # 1.7 (1.0-4.8) k/uL Monocytes # 0.6 (0-1.0) k/uL Eosinophils # 0.3 (0-0.7) k/uL Basophils # 0.0 (0-0.2) k/uL Sodium 137 (137-145) mmol/L Potassium 4.0 (3.5-5.1) mmol/L Chloride 104 (98-107) mmol/L Carbon Dioxide 25 (22-30) mmol/L Anion Gap 8 mmol/L BUN 17 (9-20) mg/dL Creatinine 0.94 (0.66-1.25) mg/dL Est GFR (CKD-EPI)AfAm >90 (>60 ml/min/1.73 sqM) Est GFR (CKD-EPI)NonAf 79 (>60 ml/min/1.73 sqM) Glucose 101 H (74-99) mg/dL Calcium 9.2 (8.4-10.2) mg/dL Total Bilirubin 0.6 (0.2-1.3) mg/dL AST 20 (17-59) U/L ALT 17 (4-49) U/L Alkaline Phosphatase 67 (38-126) U/L Total Protein 7.0 (6.3-8.2) g/dL Albumin 4.3 (3.5-5.0) g/dL Amylase 74 (30-110) U/L Lipase 76 (23-300) U/L Urine Color Light Yellow Urine Appearance Clear (Clear) Urine pH 6.0 (5.0-8.0) Ur Specific [place] 1.010 (1.001-1.035) Urine Protein Negative (Negative) Urine Glucose (UA) Negative (Negative) Urine Ketones Negative (Negative) Urine Blood Negative (Negative) Urine Nitrite Negative (Negative) Urine Bilirubin Negative (Negative) Urine Urobilinogen <2.0 (<2.0) mg/dL Ur Leukocyte Esterase Negative (Negative) Disposition Clinical Impression: Abdominal pain Disposition: HOME SELF-CARE Condition: Good Instructions (If sedation given, give patient instructions): Abdominal Pain (ED) Additional Instructions: Follow-up with PCP in one to 2 days. Report back to ER if any worsening symptoms. Is patient prescribed a controlled substance at d/c from ED?: No Referrals: Fernando Lambert Jr, DO [Primary Care Provider] - 1-2 days Time of Disposition: 18:56
[2021-07-22 19:41] VITALS: BP 122/78; PULSE 77; RESP 18; TEMP 97.6
== END 2021-07-22 20:03 | disposition home or self-care (01) ==
LOC: EC 14:30
DX: R10.9 Unspecified abdominal pain (principal); J44.9 Chronic obstructive pulmonary disease, unspecified; F17.200 Nicotine dependence, unspecified, uncomplicated; Z82.49 Family history of ischemic heart disease and other diseases of the circulatory system; Z91.040 Latex allergy status; Z91.041 Radiographic dye allergy status
CPT/HCPCS: 36415; 74018; 80053; 81003; 82150; 83690; 85025; 93005; 99284

== ENCOUNTER 2021-07-28 20:44 | Emergency (ER) | payer MEDICARE ==
--- NOTE | 2021-07-28 21:34 | XR ---
EXAMINATION TYPE: XR chest 2V DATE OF EXAM: 07/28/2021 COMPARISON: 07/15/2021 HISTORY: Short of breath TECHNIQUE: FINDINGS: There is coarse interstitial increased density in the lung [place]. Heart size is normal. Th ere is multilevel thoracic and lumbar vertebroplasty. No pleural effusion. There are no hilar masses. IMPRESSION: Pulmonary interstitial fibrosis. Inspiration is improved compared to last exam. Normal he art.
[2021-07-28 22:24] LABS: Basophils # (A) 0.1 k/uL (0-0.2); Basophils % (A) 0 %; Eosinophils # (A) 0.3 k/uL (0-0.7); Eosinophils % (A) 3 %; HGB 15.3 gm/dL (13.0-17.5); Lymphocytes # (A) 1.4 k/uL (1.0-4.8); Lymphocytes % (A) 12 %; MCH 32.4 pg (25.0-35.0); MCHC 33.2 g/dL (31.0-37.0); MCV 97.5 fL (80.0-100.0); Mean Platelet Volume 7.9; Monocytes # (A) 0.7 k/uL (0-1.0); Monocytes % (A) 6 %; Neutrophils # (A) 9.2 k/uL (1.3-7.7); Neutrophils % (A) 77 %; Platelet Count 232 k/uL (150-450); RBC 4.72 m/uL (4.30-5.90); WBC 11.9 k/uL (3.8-10.6)
[2021-07-28 22:36] LABS: Prothrombin Time 11.1 sec (9.0-12.0)
[2021-07-28 22:38] LABS: Albumin 3.9 g/dL (3.5-5.0); Calcium 8.6 mg/dL (8.4-10.2); Potassium 4.4 mmol/L (3.5-5.1); Total Bilirubin 0.3 mg/dL (0.2-1.3); Total Protein 6.5 g/dL (6.3-8.2)
[2021-07-29] MEDS ORDERED: IPRATROPIUM-ALBUTEROL 3 ML NEB INHALATION STA (00:57)
[2021-07-29] MEDS ORDERED: SODIUM CHLORIDE 0.9% 500 ML 500 ML IV STA (02:23)
--- NOTE | 2021-07-29 03:10 | ED ---
Dizziness HPI - General Chief Complaint: Dizziness Stated Complaint: COPD/SOB/Dizziness Time Seen by Provider: 07/29/21 00:35 Source: patient, family Mode of arrival: wheelchair Limitations: no limitations - History of Present Illness MD Complaint: dizziness, lightheadedness Onset/Timin -: days(s) Timing: gradual onset Description: lightheadedness History of Same: No History of Trauma: No Severity: mild Improves With: remaining still Worsens With: movement Associated Symptoms: denies other symptoms - Related Data Home Medications Medication Instructions Recorded Confirmed Tamsulosin HCl [Flomax] 0.4 mg PO BID 03/24/18 07/14/21 Apixaban [Eliquis] 5 mg PO BID 09/14/18 07/14/21 Metoprolol Tartrate [Lopressor] 50 mg PO BID 02/04/19 07/14/21 Ergocalciferol [Vitamin D2 1,250 mcg PO GROVES 05/05/19 07/14/21 (DRISDOL)] Alendronate Sodium [Fosamax] 70 mg PO GROVES 08/21/19 07/14/21 Budesonide/Formoterol Fumarate 2 puff INHALATION RT-BID 05/21/20 07/14/21 [Symbicort 160-4.5 Mcg Inhaler] Ipratropium-Albuterol Nebulize 3 ml INHALATION RT-QID 09/23/20 07/14/21 [Duoneb 0.5 mg-3 mg/3 ml Soln] Fluticasone/Salmeterol [Advair 1 puff INHALATION RT-BID 04/07/21 07/14/21 250-50 Diskus] Gabapentin [Neurontin] 100 mg PO BID 04/07/21 07/14/21 Albuterol Inhaler [Ventolin Hfa 1 puff INHALATION RT-Q4H PRN 07/14/21 07/14/21 Inhaler] Previous Rx's Medication Instructions Recorded predniSONE [Deltasone] 20 mg PO BID #8 tab 07/15/21 Allergies Allergy/AdvReac Type Severity Reaction Status Date / Time Iodinated Contrast Media Allergy Rash/Hives Verified 07/28/21 21:15 [Iodinated Contrast- Oral and IV Dye] latex Allergy Rash/Hives Verified 07/28/21 21:15 Review of Systems ROS Statement: Those systems with pertinent positive or pertinent negative responses have been documented in the HPI. ROS Other: All systems not noted in ROS Statement are negative. Constitutional: Denies: fever, chills Respiratory: Reports: cough, dyspnea (Patient states similar to his underlying COPD) Cardiovascular: Denies: chest pain, palpitations, edema Gastrointestinal: Denies: abdominal pain, vomiting, diarrhea Genitourinary: Denies: dysuria, hematuria Musculoskeletal: Denies: back pain Neurological: Denies: headache, weakness, numbness Past Medical History Past Medical History: Atrial Fibrillation, Atrial Flutter, COPD, GERD/Reflux, Pneumonia, Prostate Disorder Additional Past Medical History / Comment(s): Paroxysmal Afib, bronchitis, BPH, constipation, vertigo, chronic low back pain/DDD. covid 06/22 History of Any Multi-Drug Resistant Organisms: None Reported Past Surgical History: Back Surgery Additional Past Surgical History / Comment(s): Bilateral cataract removals-lens implants, colonoscopy, multiple kyphoplasties. Past Anesthesia/Blood Transfusion Reactions: No Reported Reaction Additional Past Anesthesia/Blood Transfusion Reaction / Comment(s): Has never received any blood transfusions. Past Psychological History: No Psychological Hx Reported Smoking Status: Current every day smoker Past Alcohol Use History: None Reported Past Drug Use History: None Reported - Past Family History Mother Family Medical History: AFIB, Dementia Father Family Medical History: Myocardial Infarction ([place]) Additional Family Medical History / Comment(s): in his 70's [place] General Exam Limitations: no limitations General appearance: alert, in no apparent distress Head exam: Present: atraumatic, normocephalic Eye exam: Present: normal appearance. Absent: scleral icterus, conjunctival injection ENT exam: Present: normal oropharynx, mucous membranes dry Neck exam: Present: normal inspection Respiratory exam: Present: respiratory distress (Mild tachypnea), wheezes (There is mild expiratory wheeze). Absent: rales, rhonchi, stridor, accessory muscle use, decreased breath sounds Cardiovascular Exam: Present: regular rate, normal rhythm, normal heart sounds. Absent: systolic murmur, diastolic murmur, rubs, gallop GI/Abdominal exam: Present: soft. Absent: distended, tenderness, guarding, rebound, rigid, mass Extremities exam: Present: normal inspection, normal capillary refill. Absent: pedal edema, calf tenderness Back exam: Present: normal inspection. Absent: CVA tenderness (R), CVA tenderness (L) Neurological exam: Present: alert Skin exam: Present: warm, dry, intact, normal color. Absent: rash Course Vital Signs 07/28/21 07/28/21 07/29/21 21:15 21:19 01:12 Temperature 98.2 F Pulse Rate 95 84 76 Respiratory 26 H Rate Blood Pressure 117/75 O2 Sat by Pulse 94 L 93 L Oximetry 07/29/21 07/29/21 07/29/21 01:24 03:06 04:15 Temperature 97.4 F L 97.0 F L Pulse Rate 76 89 86 Respiratory 20 18 Rate Blood Pressure 110/67 127/81 O2 Sat by Pulse 91 L 94 L Oximetry Medical Decision Making - Medical Decision Making Patient 76-year-old man here with mainly complaint of orthostatic symptoms. He is feeling lightheaded when he walks and a little off balance. The workup does reveal elevated renal functions versus his baseline. His exam is suggestive of mild dehydration. Patient did receive hydration here in the department and feels somewhat better and would like to go home. Discussed appropriate follow- up and return parameters. - Lab Data Result diagrams: 07/28/21 22:09 07/28/21 22:09 Lab Results 07/28/21 07/28/21 07/28/21 Range/Units 22:09 22:09 22:09 WBC 11.9 H (3.8-10.6) k/uL RBC 4.72 (4.30-5.90) m/uL Hgb 15.3 (13.0-17.5) gm/dL Hct 46.0 (39.0-53.0) % MCV 97.5 (80.0-100.0) fL MCH 32.4 (25.0-35.0) pg MCHC 33.2 (31.0-37.0) g/dL RDW 13.0 (11.5-15.5) % Plt Count 232 (150-450) k/uL MPV 7.9 Neutrophils % 77 % Lymphocytes % 12 % Monocytes % 6 % Eosinophils % 3 % Basophils % 0 % Neutrophils # 9.2 H (1.3-7.7) k/uL Lymphocytes # 1.4 (1.0-4.8) k/uL Monocytes # 0.7 (0-1.0) k/uL Eosinophils # 0.3 (0-0.7) k/uL Basophils # 0.1 (0-0.2) k/uL PT 11.1 (9.0-12.0) sec INR 1.0 (<1.2) Sodium 138 (137-145) mmol/L Potassium 4.4 (3.5-5.1) mmol/L Chloride 108 H (98-107) mmol/L Carbon Dioxide 22 (22-30) mmol/L Anion Gap 8 mmol/L BUN 32 H (9-20) mg/dL Creatinine 1.32 H (0.66-1.25) mg/dL Est GFR (CKD-EPI)AfAm 60 (>60 ml/min/1.73 sqM) Est GFR (CKD-EPI)NonAf 52 (>60 ml/min/1.73 sqM) Glucose 110 H (74-99) mg/dL Plasma Lactic Acid [place] (0.7-2.0) mmol/L Calcium 8.6 (8.4-10.2) mg/dL Total Bilirubin 0.3 (0.2-1.3) mg/dL AST 21 (17-59) U/L ALT 20 (4-49) U/L Alkaline Phosphatase 91 (38-126) U/L Total Protein 6.5 (6.3-8.2) g/dL Albumin 3.9 (3.5-5.0) g/dL 07/28/21 Range/Units 22:09 WBC (3.8-10.6) k/uL RBC (4.30-5.90) m/uL Hgb (13.0-17.5) gm/dL Hct (39.0-53.0) % MCV (80.0-100.0) fL MCH (25.0-35.0) pg MCHC (31.0-37.0) g/dL RDW (11.5-15.5) % Plt Count (150-450) k/uL MPV Neutrophils % % Lymphocytes % % Monocytes % % Eosinophils % % Basophils % % Neutrophils # (1.3-7.7) k/uL Lymphocytes # (1.0-4.8) k/uL Monocytes # (0-1.0) k/uL Eosinophils # (0-0.7) k/uL Basophils # (0-0.2) k/uL PT (9.0-12.0) sec INR (<1.2) Sodium (137-145) mmol/L Potassium (3.5-5.1) mmol/L Chloride (98-107) mmol/L Carbon Dioxide (22-30) mmol/L Anion Gap mmol/L BUN (9-20) mg/dL Creatinine (0.66-1.25) mg/dL Est GFR (CKD-EPI)AfAm (>60 ml/min/1.73 sqM) Est GFR (CKD-EPI)NonAf (>60 ml/min/1.73 sqM) Glucose (74-99) mg/dL Plasma Lactic Acid [place] 1.1 (0.7-2.0) mmol/L Calcium (8.4-10.2) mg/dL Total Bilirubin (0.2-1.3) mg/dL AST (17-59) U/L ALT (4-49) U/L Alkaline Phosphatase (38-126) U/L Total Protein (6.3-8.2) g/dL Albumin (3.5-5.0) g/dL Disposition Clinical Impression: MILENA (acute kidney injury) Disposition: HOME SELF-CARE Condition: Good Instructions (If sedation given, give patient instructions): Dizziness (ED) Is patient prescribed a controlled substance at d/c from ED?: No Referrals: Fernando Lambert Jr, DO [Primary Care Provider] - 1-2 days
[2021-07-29 04:33] VITALS: BP 127/81; PULSE 86; RESP 18; TEMP 97
== END 2021-07-29 04:15 | disposition home or self-care (01) ==
LOC: EC 20:44
DX: N17.9 Acute kidney failure, unspecified (principal); F17.200 Nicotine dependence, unspecified, uncomplicated; J44.9 Chronic obstructive pulmonary disease, unspecified; K21.9 Gastro-esophageal reflux disease without esophagitis; I48.0 Paroxysmal atrial fibrillation; N40.0 Benign prostatic hyperplasia without lower urinary tract symptoms; Z79.01 Long term (current) use of anticoagulants; Z79.51 Long term (current) use of inhaled steroids; Z88.8 Allergy status to other drugs, medicaments and biological substances; Z91.040 Latex allergy status; Z91.041 Radiographic dye allergy status; Z79.899 Other long term (current) drug therapy
CPT/HCPCS: 36415; 71046; 80053; 83605; 85025; 85610; 93005; 94640; 96360; 99285

== ENCOUNTER 2021-08-11 20:50 | Emergency (ER) | payer MEDICARE ==
--- NOTE | 2021-08-11 21:52 | XR ---
EXAMINATION TYPE: XR chest 2V DATE OF EXAM: 08/11/2021 COMPARISON: 07/28/2021 HISTORY: Short of breath TECHNIQUE: FINDINGS: There is coarse interstitial density throughout the lungs. Heart size is normal. There is m ultilevel thoracic and lumbar vertebroplasty. No pleural effusion. There is reduced lung volumes. IMPRESSION: Moderate pulmonary interstitial fibrosis without change.
[2021-08-11] MEDS ORDERED: IPRATROPIUM-ALBUTEROL 3 ML NEB INHALATION STA ×2 (22:36→23:28)
--- NOTE | 2021-08-11 22:36 | ED ---
SOB HPI - General Chief Complaint: Shortness of Breath Stated Complaint: KEERTHI Time Seen by Provider: 08/11/21 22:35 Source: patient, RN notes reviewed, old records reviewed Mode of arrival: ambulatory - History of Present Illness Initial Comments: This is a 76-year-old male to the ER for evaluation patient presents today for evaluation of cough congestion sputum production. Patient is on a few days of similar symptoms. Noted house feel sick. No fevers. No travel history no sick contacts no pain. No chest pain. Mild nausea no vomiting. No recent travel history sick contacts without recent hospital admission. Patient is today breathing treatments at home with mild improvement but no resolution. Patient again denies any chest pain MD Complaint: shortness of breath, cough -: days(s) Severity: mild Severity scale (1-10): 3 Consistency: constant Improves With: rest, bronchodilators Worsens With: exertion, movement Known History Of: COPD, asthma Context: recent URI, recent illness Associated Symptoms: cough, sputum production Treatments Prior to Arrival: bronchodilator - Related Data Home Medications Medication Instructions Recorded Confirmed Tamsulosin HCl [Flomax] 0.4 mg PO BID 03/24/18 08/11/21 Apixaban [Eliquis] 5 mg PO BID 09/14/18 08/11/21 Metoprolol Tartrate [Lopressor] 50 mg PO BID 02/04/19 08/11/21 Ergocalciferol [Vitamin D2 1,250 mcg PO GROVES 05/05/19 08/11/21 (DRISDOL)] Alendronate Sodium [Fosamax] 70 mg PO GROVES 08/21/19 08/11/21 Budesonide/Formoterol Fumarate 2 puff INHALATION RT-BID 05/21/20 08/11/21 [Symbicort 160-4.5 Mcg Inhaler] Ipratropium-Albuterol Nebulize 3 ml INHALATION RT-QID 09/23/20 08/11/21 [Duoneb 0.5 mg-3 mg/3 ml Soln] Fluticasone/Salmeterol [Advair 1 puff INHALATION RT-BID 04/07/21 08/11/21 250-50 Diskus] Gabapentin [Neurontin] 100 mg PO BID 04/07/21 08/11/21 Albuterol Inhaler [Ventolin Hfa 1 puff INHALATION RT-Q4H PRN 07/14/21 08/11/21 Inhaler] Allergies Allergy/AdvReac Type Severity Reaction Status Date / Time Iodinated Contrast Media Allergy Rash/Hives Verified 08/11/21 21:21 [Iodinated Contrast- Oral and IV Dye] latex Allergy Rash/Hives Verified 08/11/21 21:21 Review of Systems ROS Statement: Those systems with pertinent positive or pertinent negative responses have been documented in the HPI. ROS Other: All systems not noted in ROS Statement are negative. Past Medical History Past Medical History: Atrial Fibrillation, Atrial Flutter, COPD, GERD/Reflux, Pneumonia, Prostate Disorder Additional Past Medical History / Comment(s): Paroxysmal Afib, bronchitis, BPH, constipation, vertigo, chronic low back pain/DDD. covid 06/22 History of Any Multi-Drug Resistant Organisms: None Reported Past Surgical History: Back Surgery Additional Past Surgical History / Comment(s): Bilateral cataract removals-lens implants, colonoscopy, multiple kyphoplasties. Past Anesthesia/Blood Transfusion Reactions: No Reported Reaction Additional Past Anesthesia/Blood Transfusion Reaction / Comment(s): Has never received any blood transfusions. Past Psychological History: No Psychological Hx Reported Smoking Status: Current every day smoker Past Alcohol Use History: None Reported Past Drug Use History: None Reported - Past Family History Mother Family Medical History: AFIB, Dementia Father Family Medical History: Myocardial Infarction ([place]) Additional Family Medical History / Comment(s): in his 70's [place] General Exam General appearance: alert, in no apparent distress Head exam: Present: atraumatic, normocephalic, normal inspection Eye exam: Present: normal appearance, PERRL, EOMI. Absent: scleral icterus, conjunctival injection, periorbital swelling ENT exam: Present: normal exam, mucous membranes dry, mucous membranes moist Neck exam: Present: normal inspection. Absent: tenderness, meningismus, lymphadenopathy Respiratory exam: Present: wheezes, decreased breath sounds, prolonged expiratory. Absent: respiratory distress, rales, rhonchi, stridor Cardiovascular Exam: Present: regular rate, normal rhythm, normal heart sounds. Absent: systolic murmur, diastolic murmur, rubs, gallop, clicks GI/Abdominal exam: Present: soft, normal bowel sounds. Absent: distended, tenderness, guarding, rebound, rigid Extremities exam: Present: normal inspection, full ROM, normal capillary refill. Absent: tenderness, pedal edema, joint swelling, calf tenderness Back exam: Present: normal inspection Neurological exam: Present: alert, oriented X3, CN II-XII intact Psychiatric exam: Present: normal affect, normal mood Skin exam: Present: warm, dry, intact, normal color. Absent: rash Course Vital Signs 08/11/21 21:18 Temperature 98.6 F Pulse Rate 83 Respiratory 22 Rate Blood Pressure 112/71 O2 Sat by Pulse 94 L Oximetry - Reevaluation(s) Reevaluation #1: 08/11/21 23:30 Medical record is reviewed Reevaluation #2: 08/11/21 23:30 Patient informed of results and questions answered Reevaluation #3: 08/11/21 23:30 She given second breathing treatment at this time feels well good enough for discharge home Medical Decision Making - Medical Decision Making 76 male to the emergency department for evaluation positive cough congestion history of COPD. Significant improved here in the emergency, no distress chest x-ray is normal. Patient placed on antibiotic steroids. Increased. She was and can be discharged home - Radiology Data Radiology results: report reviewed (Chest x-rays negative for acute disease), image reviewed Disposition Clinical Impression: COPD with acute exacerbation, Shortness of breath, COPD exacerbation, Smoker Disposition: HOME SELF-CARE Condition: Good Instructions (If sedation given, give patient instructions): Acute Bronchitis (ED), Chronic Bronchitis (ED) Is patient prescribed a controlled substance at d/c from ED?: No Referrals: Fernando Lambert Jr, DO [Primary Care Provider] - 1-2 days Decision Time: 23:30
[2021-08-11] MEDS ORDERED: predniSONE 20 MG TAB PO STA (23:28)
[2021-08-11] MEDS ORDERED: AZITHROMYCIN 500 MG TAB PO STA (23:28)
[2021-08-12 00:33] VITALS: BP 120/75; PULSE 88; RESP 18; TEMP 97.9
--- NOTE | 2021-08-12 12:02 | ED ---
Disposition Clinical Impression: COPD with acute exacerbation, Shortness of breath, COPD exacerbation, Smoker Disposition: HOME SELF-CARE Condition: Good Instructions (If sedation given, give patient instructions): Acute Bronchitis (ED), Chronic Bronchitis (ED) Prescriptions: predniSONE 50 mg PO DAILY #5 tab Albuterol Sulfate [Proair Hfa] 1 - 2 puff INHALATION Q4H PRN #8.5 gm PRN Reason: Shortness Of Breath Albuterol Inhaler [Ventolin Hfa Inhaler] 2 puff INHALATION RT-QID #8 gm Albuterol Nebulized [Ventolin Nebulized] 2.5 mg INHALATION Q4H PRN #25 each PRN Reason: Shortness Of Breath Azithromycin [Zithromax Z-pack (6 tabs)] 0 mg PO DIRECTED #1 packet Is patient prescribed a controlled substance at d/c from ED?: No Referrals: Fernando Lambert Jr, [Primary Care Provider] - 1-2 days
== END 2021-08-12 00:31 | disposition home or self-care (01) ==
LOC: EC 20:50
DX: J44.1 Chronic obstructive pulmonary disease with (acute) exacerbation (principal); F17.200 Nicotine dependence, unspecified, uncomplicated; I48.0 Paroxysmal atrial fibrillation; Z79.01 Long term (current) use of anticoagulants; Z91.040 Latex allergy status; Z91.041 Radiographic dye allergy status
CPT/HCPCS: 94640; 71046; 99284; J7512

== ENCOUNTER 2021-08-17 05:53 | Emergency (ER) | payer MEDICARE ==
[2021-08-17 06:03] VITALS: TEMP 97.8
[2021-08-17] MEDS ORDERED: IPRATROPIUM-ALBUTEROL 3 ML NEB INHALATION STA (06:46)
[2021-08-17] MEDS ORDERED: DEXAMETHASONE SOD PHOSPHATE 10 MG/ML 1 ML VIAL IM STA (06:46)
--- NOTE | 2021-08-17 07:20 | ED ---
General Adult HPI - General Chief complaint: Shortness of Breath Stated complaint: KEERTHI Time Seen by Provider: 08/17/21 06:40 Source: patient, RN notes reviewed, old records reviewed Mode of arrival: ambulatory Limitations: no limitations - History of Present Illness Initial comments: This is a well-appearing pleasant 76-year-old male that presents to the emergency room with son complaining of shortness of breath that started at 3:30 this morning. Patient states that he did 2 albuterol treatments with some relief. He states he also had tingling down both his arms which has resolved. He does have chronic back pain and has had 9 back surgeries in the past. He states they will not do any further back surgeries as he is not a good candidate. He is a pack-a-day smoker. He denies any fevers, no chest pain, no headaches, no nausea vomiting or diarrhea. He does have a history of A. fib, COPD and GERD. -: hour(s) (4) Treatments Prior to Arrival: other (2 albuterol treatments) - Related Data Home Medications Medication Instructions Recorded Confirmed Tamsulosin HCl [Flomax] 0.4 mg PO BID 03/24/18 08/11/21 Apixaban [Eliquis] 5 mg PO BID 09/14/18 08/11/21 Metoprolol Tartrate [Lopressor] 50 mg PO BID 02/04/19 08/11/21 Ergocalciferol [Vitamin D2 1,250 mcg PO GROVES 05/05/19 08/11/21 (DRISDOL)] Alendronate Sodium [Fosamax] 70 mg PO GROVES 08/21/19 08/11/21 Budesonide/Formoterol Fumarate 2 puff INHALATION RT-BID 05/21/20 08/11/21 [Symbicort 160-4.5 Mcg Inhaler] Ipratropium-Albuterol Nebulize 3 ml INHALATION RT-QID 09/23/20 08/11/21 [Duoneb 0.5 mg-3 mg/3 ml Soln] Fluticasone Propion/Salmeterol 1 puff INHALATION RT-BID 04/07/21 08/11/21 [Advair 250-50 Diskus] Gabapentin [Neurontin] 100 mg PO BID 04/07/21 08/11/21 Albuterol Inhaler [Ventolin Hfa 1 puff INHALATION RT-Q4H PRN 07/14/21 08/11/21 Inhaler] Previous Rx's Medication Instructions Recorded Albuterol Nebulized [Ventolin 2.5 mg INHALATION Q4H PRN #25 each 08/11/21 Nebulized] Azithromycin [Zithromax Z-pack (6 0 mg PO DIRECTED #1 packet 08/11/21 tabs)] predniSONE 50 mg PO DAILY #5 tab 08/11/21 Albuterol Inhaler [Ventolin Hfa 2 puff INHALATION RT-QID #8 gm 08/12/21 Inhaler] Allergies Allergy/AdvReac Type Severity Reaction Status Date / Time Iodinated Contrast Media Allergy Rash/Hives Verified 08/17/21 06:03 [Iodinated Contrast- Oral and IV Dye] latex Allergy Rash/Hives Verified 08/17/21 06:03 Review of Systems ROS Statement: Those systems with pertinent positive or pertinent negative responses have been documented in the HPI. ROS Other: All systems not noted in ROS Statement are negative. Past Medical History Past Medical History: Atrial Fibrillation, Atrial Flutter, COPD, GERD/Reflux, Pneumonia, Prostate Disorder Additional Past Medical History / Comment(s): Paroxysmal Afib, bronchitis, BPH, constipation, vertigo, chronic low back pain/DDD. covid 06/22 History of Any Multi-Drug Resistant Organisms: None Reported Past Surgical History: Back Surgery Additional Past Surgical History / Comment(s): Bilateral cataract removals-lens implants, colonoscopy, multiple kyphoplasties. Past Anesthesia/Blood Transfusion Reactions: No Reported Reaction Additional Past Anesthesia/Blood Transfusion Reaction / Comment(s): Has never received any blood transfusions. Past Psychological History: No Psychological Hx Reported Smoking Status: Current every day smoker Past Alcohol Use History: None Reported Past Drug Use History: None Reported - Past Family History Mother Family Medical History: AFIB, Dementia Father Family Medical History: Myocardial Infarction ([place]) Additional Family Medical History / Comment(s): in his 70's [place] General Exam Limitations: no limitations General appearance: alert, in no apparent distress Head exam: Present: atraumatic, normocephalic, normal inspection Respiratory exam: Present: wheezes. Absent: respiratory distress, accessory muscle use Cardiovascular Exam: Present: regular rate, normal rhythm GI/Abdominal exam: Present: soft. Absent: distended, tenderness Extremities exam: Present: normal capillary refill, pedal edema (1+) Back exam: Absent: CVA tenderness (R), CVA tenderness (L), paraspinal tenderness, vertebral tenderness, rash noted Neurological exam: Present: alert, oriented X3 Expanded Patient oriented to: Present: person, place, time Speech: Present: fluid speech Cranial nerves: EOM's Intact: Normal, Gag Reflex: Normal, Tongue Deviation: Normal Motor strength exam: RUE: 5, LUE: 5, RLE: 5, LLE: 5 Eye Response: (4) open spontaneously Motor Response: (6) obeys commands Verbal Response: (5) oriented Edwards Total: 15 Psychiatric exam: Present: normal affect, normal mood Skin exam: Present: warm, dry, normal color. Absent: cyanosis, diaphoretic, petechiae, pallor Course Vital Signs 08/17/21 08/17/21 08/17/21 05:59 06:32 07:10 Temperature 97.8 F Pulse Rate 78 78 Respiratory 24 24 Rate Blood Pressure 112/71 O2 Sat by Pulse 94 L Oximetry 08/17/21 08/17/21 07:17 07:24 Temperature 97.8 F Pulse Rate 76 77 Respiratory 20 Rate Blood Pressure 122/82 O2 Sat by Pulse 97 Oximetry EKG Findings - EKG Results: EKG: sinus rhythm (Heart regular rate 76, MT interval 0.164, QRS 0.93, QTC 0.399) Medical Decision Making - Medical Decision Making Chest x-ray shows an underlying nodularity left base. Atypical pneumonia versus chronic fibrosis. Patient was notified of these results and was given a referral to pulmonology. Patient was given a DuoNeb treatment and Decadron in the emergency room. He is feeling better. The numbness in his arms resolved prior to arrival. This pain is likely radicul ar symptoms and he was instructed to discuss this pain with his primary care doctor. We did discuss concerning signs including unilateral numbness, weakness or slurred speech to return to the emergency room. I have a low suspicion for TIA. His shortness of breath today is likely his COPD as patient continues to be a pack-a-day smoker since age 11. He was previously prescribed a Z-George and prednisone on August 11 by his primary care doctor therefore I will not be prescribing additional medications at this time. He was directed to follow up with his primary care doctor next week. Patient is agreeable to being discharged home. I did explain to him that his symptoms will not improve if he continues to smoke. Vital signs are stable at discharge. Case discussed with Dr. Shipman. Disposition Clinical Impression: COPD exacerbation Disposition: HOME SELF-CARE Condition: Fair Instructions (If sedation given, give patient instructions): COPD (Chronic Obstructive Pulmonary Disease) (ED) Additional Instructions: On chest x-ray today there appears a left lung nodule. It is important he follow-up with your primary care doctor or supervisor quality control for this to be monitored. Continue the medications as prescribed by your primary care doctor. Return to the emergency room with any new or concerning symptoms. Is patient prescribed a controlled substance at d/c from ED?: No Referrals: Fernando Lambert Jr, DO [Primary Care Provider] - 1-2 days Flakita Arvizu MD [STAFF PHYSICIAN] - 1-2 days Time of Disposition: 08:21
[2021-08-17 07:26] VITALS: BP 122/82; PULSE 77; RESP 20
--- NOTE | 2021-08-17 07:52 | XR ---
EXAMINATION TYPE: XR chest 2V DATE OF EXAM: 08/17/2021 COMPARISON: 08/11/2021 HISTORY: 76 year-old male shortness of breath TECHNIQUE: PA and lateral views FINDINGS: Vertebroplasty change at multiple levels including mid thoracic spine and lower thoracic and upper michele mbar spine. Heart borderline enlarged. Diffuse interstitial and patchy opacities persist without sign ificant change. May be some vague underlying nodular density is well suggestive that the left base. IMPRESSION: Similar diffuse and patchy interstitial bilateral opacities. Correlated as to any known diagnosis. Un able to exclude vague underlying nodularity such as at the left base. If no established diagnosis, re commend pulmonary medicine referral. Atypical pneumonias and underlying chronic fibrosis are both in the differential.
== END 2021-08-17 08:32 | disposition home or self-care (01) ==
LOC: EC 05:53
DX: J44.1 Chronic obstructive pulmonary disease with (acute) exacerbation (principal); K21.9 Gastro-esophageal reflux disease without esophagitis; Z79.83 Long term (current) use of bisphosphonates; F17.200 Nicotine dependence, unspecified, uncomplicated; Z82.49 Family history of ischemic heart disease and other diseases of the circulatory system; Z91.041 Radiographic dye allergy status; Z91.040 Latex allergy status
CPT/HCPCS: 94640; 93005; 71046; 99285; 96372; J1100

== ENCOUNTER 2021-09-15 19:53 | Emergency (ER) | payer MEDICARE ==
[2021-09-15] MEDS ORDERED: IPRATROPIUM-ALBUTEROL 3 ML NEB INHALATION STA (20:25)
[2021-09-15] MEDS ORDERED: methylPREDNISolone SOD SUCCI 125 MG/2 ML VIAL IV STA (20:29)
[2021-09-15] MEDS ORDERED: MAGNESIUM SULFATE-D5W PMX 1 GM in DEXTROSE/WATER 1 100ML.BAG IVPB ONE (20:29)
[2021-09-15] MEDS ORDERED: IPRATROPIUM-ALBUTEROL 3 ML NEB INHALATION ONE (20:50)
[2021-09-15 21:10] LABS: Basophils # (A) 0.1 k/uL (0-0.2); Basophils % (A) 1 %; Eosinophils # (A) 0.3 k/uL (0-0.7); Eosinophils % (A) 4 %; HCT 42.3 % (39.0-53.0); HGB 14.4 gm/dL (13.0-17.5); Lymphocytes # (A) 1.3 k/uL (1.0-4.8); Lymphocytes % (A) 18 %; MCH 32.9 pg (25.0-35.0); MCHC 34.1 g/dL (31.0-37.0); MCV 96.4 fL (80.0-100.0); Mean Platelet Volume 7.9; Monocytes # (A) 0.6 k/uL (0-1.0); Monocytes % (A) 8 %; Neutrophils # (A) 4.7 k/uL (1.3-7.7); Neutrophils % (A) 67 %; Platelet Count 221 k/uL (150-450); RBC 4.39 m/uL (4.30-5.90); RDW 12.9 % (11.5-15.5); WBC 7.1 k/uL (3.8-10.6)
--- NOTE | 2021-09-15 21:17 | XR ---
EXAMINATION TYPE: XR chest 2V DATE OF EXAM: 09/15/2021 COMPARISON: 08/17/2021 HISTORY: Shortness of breath TECHNIQUE: Frontal and lateral views of the chest are obtained. FINDINGS: Scattered senescent parenchymal changes noted. Perihilar and basilar interstitial infiltrates persist. Overall no significant interval change. Heart size is stable. Mediastinal structures are stable and grossly unremarkable. No evidence for hilar prominence. Degenerative changes dorsal spine. IMPRESSION: 1. Perihilar and basilar interstitial infiltrates persist. Overall no significant interval change.
[2021-09-15 21:21] LABS: Calcium 9.2 mg/dL (8.4-10.2); Magnesium 2.1 mg/dL (1.6-2.3); Potassium 4.5 mmol/L (3.5-5.1); Total Bilirubin 0.6 mg/dL (0.2-1.3); Total Protein 6.6 g/dL (6.3-8.2)
[2021-09-15] MEDS ORDERED: DOXYCYCLINE 100 MG CAP PO STA (22:28)
--- NOTE | 2021-09-15 22:34 | ED ---
General Adult HPI - General Chief complaint: Shortness of Breath Stated complaint: KEERTHI Time Seen by Provider: 09/15/21 19:57 Source: family, RN notes reviewed, old records reviewed Mode of arrival: wheelchair Limitations: no limitations - History of Present Illness Initial comments: Patient is a 76-year-old male with past medical history remarkable for COPD, atrial fibrillation, prostate disorder who presents emergency Department complaining of worsening shortness of breath for 2 days. Believes it is COPD acting up. Endorses worsening cough. Denies fevers. Denies sick contacts. Denies nausea, vomiting, abdominal pain. His no other acute complaints at this time. His postreduction at home at night but is still attempting to receive his tank. Presents over concern for worsening COPD at this time. Presents with his daughter. No other acute complaints. Denies chest pain. - Related Data Home Medications Medication Instructions Recorded Confirmed Tamsulosin HCl [Flomax] 0.4 mg PO BID 03/24/18 08/11/21 Apixaban [Eliquis] 5 mg PO BID 09/14/18 08/11/21 Metoprolol Tartrate [Lopressor] 50 mg PO BID 02/04/19 08/11/21 Ergocalciferol [Vitamin D2 1,250 mcg PO GROVES 05/05/19 08/11/21 (DRISDOL)] Alendronate Sodium [Fosamax] 70 mg PO GROVES 08/21/19 08/11/21 Budesonide/Formoterol Fumarate 2 puff INHALATION RT-BID 05/21/20 08/11/21 [Symbicort 160-4.5 Mcg Inhaler] Ipratropium-Albuterol Nebulize 3 ml INHALATION RT-QID 09/23/20 08/11/21 [Duoneb 0.5 mg-3 mg/3 ml Soln] Fluticasone Propion/Salmeterol 1 puff INHALATION RT-BID 04/07/21 08/11/21 [Advair 250-50 Diskus] Gabapentin [Neurontin] 100 mg PO BID 04/07/21 08/11/21 Albuterol Inhaler [Ventolin Hfa 1 puff INHALATION RT-Q4H PRN 07/14/21 08/11/21 Inhaler] Previous Rx's Medication Instructions Recorded Albuterol Nebulized [Ventolin 2.5 mg INHALATION Q4H PRN #25 each 08/11/21 Nebulized] Azithromycin [Zithromax Z-pack (6 0 mg PO DIRECTED #1 packet 08/11/21 tabs)] predniSONE 50 mg PO DAILY #5 tab 08/11/21 Albuterol Inhaler [Ventolin Hfa 2 puff INHALATION RT-QID #8 gm 08/12/21 Inhaler] Doxycycline Hyclate 100 mg PO BID 7 Days #14 capsule 09/15/21 predniSONE [Deltasone] 40 mg PO DAILY 5 Days #10 tab 09/15/21 Allergies Allergy/AdvReac Type Severity Reaction Status Date / Time Iodinated Contrast Media Allergy Rash/Hives Verified 09/15/21 19:56 [Iodinated Contrast- Oral and IV Dye] latex Allergy Rash/Hives Verified 09/15/21 19:56 Review of Systems ROS Statement: Those systems with pertinent positive or pertinent negative responses have been documented in the HPI. Review of Systems: CONST: Denies fever EYES: Denies blurry vision ENT: Denies nasal congestion C/V: Denies Chest pain RESP: Endorses shortness of breath GI: Denies abdominal pain : Denies dysuria SKIN: Denies rash. MSK: Denies joint pain. NEURO: Denies headache ROS Other: All systems not noted in ROS Statement are negative. Past Medical History Past Medical History: Atrial Fibrillation, Atrial Flutter, COPD, GERD/Reflux, Pneumonia, Prostate Disorder Additional Past Medical History / Comment(s): Paroxysmal Afib, bronchitis, BPH, constipation, vertigo, chronic low back pain/DDD. covid 06/22 History of Any Multi-Drug Resistant Organisms: None Reported Past Surgical History: Back Surgery Additional Past Surgical History / Comment(s): Bilateral cataract removals-lens implants, colonoscopy, multiple kyphoplasties. Past Anesthesia/Blood Transfusion Reactions: No Reported Reaction Additional Past Anesthesia/Blood Transfusion Reaction / Comment(s): Has never received any blood transfusions. Past Psychological History: No Psychological Hx Reported Smoking Status: Current every day smoker Past Alcohol Use History: None Reported Past Drug Use History: None Reported - Past Family History Mother Family Medical History: AFIB, Dementia Father Family Medical History: Myocardial Infarction ([place]) Additional Family Medical History / Comment(s): in his 70's [place] General Exam - General Exam Comments Initial Comments: General: Appears in no acute distress. HEAD: Normal with no signs of head trauma. EYES: PERRLA, EOMI, conjunctiva normal, no discharge. ENT: Hearing grossly intact, normal oropharynx. RESPIRATORY: Bilateral end expiratory wheezing. Mild hypoxia with a history of COPD. C/V: Regular rate and rhythm. S1 and S2 auscultated, no edema, peripheral pulses 2+ and intact throughout ABD: Abd is soft, nontender, nondistended EXT: Normal range of motion, no obvious deformity SKIN: No rashes or lesions observed on exposed skin. NEURO: Alert and oriented 4. Limitations: no limitations Course Vital Signs 09/15/21 09/15/21 09/15/21 19:55 21:52 22:01 Temperature 98.4 F Pulse Rate 88 80 78 Respiratory 18 Rate Blood Pressure 135/77 O2 Sat by Pulse 95 Oximetry 09/15/21 09/15/21 09/15/21 22:05 22:16 23:19 Temperature 97.9 F Pulse Rate 80 78 90 Respiratory 20 Rate Blood Pressure 114/69 O2 Sat by Pulse 93 L Oximetry Medical Decision Making - Medical Decision Making Based on the patient's presentation and physical exam, I'm concerned for acute C OPD exacerbation. Cannot rule out bronchitis. Will be given multiple breathing treatments, IV magnesium, as well as IV steroids. Chest x-ray and screening EKG will also be obtained. He was in agreement this plan. EKG shows no signs of acute ischemia. Laboratory studies are within normal limits. Chest x-ray shows chronic COPD changes but no acute findings. Vital signs remained within normal limits on reevaluation. We discussed his workup. Patient's wheezing is resolved. He would like to go home. I discussed with him that I will provide him with steroids for home as well as instructed him to use his home inhalers and updrafts. Will be given antibiotics for possible bronchitis as well. Patient was in agreement this plan. I will provide the patient with a prescription for prednisone, doxycycline. I instructed the patient to follow up with their PCP in the next 1-3 days. I explained that the patient should return to the emergency department if they experience any worsening symptoms. Strict return precautions were discussed with the patient. The patient expressed understanding of these instructions. I answered all questions that the patient had. The patient was discharged home in good condition with their prescriptions and follow up information. - Lab Data Result diagrams: 09/15/21 20:59 09/15/21 20:59 Lab Results 09/15/21 09/15/21 Range/Units 20:59 20:59 WBC 7.1 (3.8-10.6) k/uL RBC 4.39 (4.30-5.90) m/uL Hgb 14.4 (13.0-17.5) gm/dL Hct 42.3 (39.0-53.0) % MCV 96.4 (80.0-100.0) fL MCH 32.9 (25.0-35.0) pg MCHC 34.1 (31.0-37.0) g/dL RDW 12.9 (11.5-15.5) % Plt Count 221 (150-450) k/uL MPV 7.9 Neutrophils % 67 % Lymphocytes % 18 % Monocytes % 8 % Eosinophils % 4 % Basophils % 1 % Neutrophils # 4.7 (1.3-7.7) k/uL Lymphocytes # 1.3 (1.0-4.8) k/uL Monocytes # 0.6 (0-1.0) k/uL Eosinophils # 0.3 (0-0.7) k/uL Basophils # 0.1 (0-0.2) k/uL Sodium 135 L (137-145) mmol/L Potassium 4.5 (3.5-5.1) mmol/L Chloride 105 (98-107) mmol/L Carbon Dioxide 22 (22-30) mmol/L Anion Gap 8 mmol/L BUN 21 H (9-20) mg/dL Creatinine 1.00 (0.66-1.25) mg/dL Est GFR (CKD-EPI)AfAm 84 (>60 ml/min/1.73 sqM) Est GFR (CKD-EPI)NonAf 73 (>60 ml/min/1.73 sqM) Glucose 91 (74-99) mg/dL Calcium 9.2 (8.4-10.2) mg/dL Magnesium 2.1 (1.6-2.3) mg/dL Total Bilirubin 0.6 (0.2-1.3) mg/dL AST 22 (17-59) U/L ALT 16 (4-49) U/L Alkaline Phosphatase 60 (38-126) U/L Total Protein 6.6 (6.3-8.2) g/dL Albumin 4.0 (3.5-5.0) g/dL - EKG Data -: EKG Interpreted by Me EKG Comments: 12-lead Electrocardiogram Interpretation Note EKG was reviewed and interpreted by myself. 12-lead ECG performed at 2040 is interpreted by me as revealing normal sinus rhythm at a rate of 80 beats per minute. [place] is normal. NH interval is 197 ms, QRS duration is 87 ms, QTc is 406 ms.. There were no ST or T wave abnormalities to suggest myocardial ischemia or injury. R wave progression across the precordium was satisfactory. By my interpretation this EKG is non-diagnostic for acute ischemia. Disposition Clinical Impression: COPD exacerbation, Bronchitis Disposition: HOME SELF-CARE Condition: Good Instructions (If sedation given, give patient instructions): Acute Bronchitis (ED), COPD (Chronic Obstructive Pulmonary Disease) (ED) Prescriptions: predniSONE [Deltasone] 40 mg PO DAILY 5 Days #10 tab Doxycycline Hyclate 100 mg PO BID 7 Days #14 capsule Is patient prescribed a controlled substance at d/c from ED?: No Referrals: Fernando Lambert Jr, DO [Primary Care Provider] - 1-2 days Time of Disposition: 22:25
[2021-09-15 23:20] VITALS: BP 114/69; PULSE 90; RESP 20; TEMP 97.9
== END 2021-09-15 23:21 | disposition home or self-care (01) ==
LOC: EC 19:53
DX: J44.1 Chronic obstructive pulmonary disease with (acute) exacerbation (principal); K21.9 Gastro-esophageal reflux disease without esophagitis; J40 Bronchitis, not specified as acute or chronic; F17.200 Nicotine dependence, unspecified, uncomplicated; Z82.49 Family history of ischemic heart disease and other diseases of the circulatory system; Z79.83 Long term (current) use of bisphosphonates; Z91.040 Latex allergy status; Z91.041 Radiographic dye allergy status
CPT/HCPCS: 36415; 94640 ×2; 80053; 83735; 85025; 71046; 99285; 96365; 96375; J2930; J3475

== ENCOUNTER 2021-09-19 21:42 | Observation (INO) | payer MEDICARE ==
[2021-09-19] MEDS ORDERED: SODIUM CHLORIDE 0.9% 1,000 ML IV STA (22:21)
[2021-09-19] MEDS ORDERED: IPRATROPIUM-ALBUTEROL 3 ML NEB INHALATION STA ×2 (22:21→23:44)
--- NOTE | 2021-09-19 22:21 | ED ---
SOB HPI - General Chief Complaint: Shortness of Breath Stated Complaint: SOB Time Seen by Provider: 09/19/21 21:52 Source: patient, RN notes reviewed, old records reviewed Mode of arrival: wheelchair Limitations: no limitations - History of Present Illness Initial Comments: This is a 76-year-old male to the emergency department for evaluation. Patient Dese for evaluation regards to cough and congestion. Severe history of COPD with multiple admits. Patient not currently on home O2 is placed on BiPAP multiple times. Patient denying any travel history sick contacts fevers. Patient has increasing shortness of breath of the last few days please is just due to the change in weather and humidity. Patient is most recent hospital admission as well as within the last month MD Complaint: shortness of breath, cough, "asthma attack", anxiety -: days(s) Radiation: back Severity: moderate Severity scale (1-10): 4 Quality: aching Consistency: intermittent Improves With: bronchodilators Worsens With: exertion, movement Known History Of: COPD, asthma Context: recent URI, allergen exposure, anxiety, recent illness Associated Symptoms: cough, sputum production Treatments Prior to Arrival: none - Related Data Home Medications Medication Instructions Recorded Confirmed Tamsulosin HCl [Flomax] 0.4 mg PO BID 03/24/18 08/11/21 Apixaban [Eliquis] 5 mg PO BID 09/14/18 08/11/21 Metoprolol Tartrate [Lopressor] 50 mg PO BID 02/04/19 08/11/21 Ergocalciferol [Vitamin D2 1,250 mcg PO GROVES 05/05/19 08/11/21 (DRISDOL)] Alendronate Sodium [Fosamax] 70 mg PO GROVES 08/21/19 08/11/21 Budesonide/Formoterol Fumarate 2 puff INHALATION RT-BID 05/21/20 08/11/21 [Symbicort 160-4.5 Mcg Inhaler] Ipratropium-Albuterol Nebulize 3 ml INHALATION RT-QID 09/23/20 08/11/21 [Duoneb 0.5 mg-3 mg/3 ml Soln] Fluticasone Propion/Salmeterol 1 puff INHALATION RT-BID 04/07/21 08/11/21 [Advair 250-50 Diskus] Gabapentin [Neurontin] 100 mg PO BID 04/07/21 08/11/21 Albuterol Inhaler [Ventolin Hfa 1 puff INHALATION RT-Q4H PRN 07/14/21 08/11/21 Inhaler] Previous Rx's Medication Instructions Recorded Albuterol Nebulized [Ventolin 2.5 mg INHALATION Q4H PRN #25 each 08/11/21 Nebulized] Azithromycin [Zithromax Z-pack (6 0 mg PO DIRECTED #1 packet 08/11/21 tabs)] predniSONE 50 mg PO DAILY #5 tab 08/11/21 Albuterol Inhaler [Ventolin Hfa 2 puff INHALATION RT-QID #8 gm 08/12/21 Inhaler] Doxycycline Hyclate 100 mg PO BID 7 Days #14 capsule 09/15/21 predniSONE [Deltasone] 40 mg PO DAILY 5 Days #10 tab 09/15/21 Allergies Allergy/AdvReac Type Severity Reaction Status Date / Time Iodinated Contrast Media Allergy Rash/Hives Verified 09/19/21 21:48 [Iodinated Contrast- Oral and IV Dye] latex Allergy Rash/Hives Verified 09/19/21 21:48 Review of Systems ROS Statement: Those systems with pertinent positive or pertinent negative responses have been documented in the HPI. ROS Other: All systems not noted in ROS Statement are negative. Past Medical History Past Medical History: Atrial Fibrillation, Atrial Flutter, COPD, GERD/Reflux, Pneumonia, Prostate Disorder Additional Past Medical History / Comment(s): Paroxysmal Afib, bronchitis, BPH, constipation, vertigo, chronic low back pain/DDD. covid 06/22 History of Any Multi-Drug Resistant Organisms: None Reported Past Surgical History: Back Surgery Additional Past Surgical History / Comment(s): Bilateral cataract removals-lens implants, colonoscopy, multiple kyphoplasties. Past Anesthesia/Blood Transfusion Reactions: No Reported Reaction Additional Past Anesthesia/Blood Transfusion Reaction / Comment(s): Has never received any blood transfusions. Past Psychological History: No Psychological Hx Reported Smoking Status: Current every day smoker Past Alcohol Use History: None Reported Past Drug Use History: None Reported - Past Family History Mother Family Medical History: AFIB, Dementia Father Family Medical History: Myocardial Infarction ([place]) Additional Family Medical History / Comment(s): in his 70's [place] General Exam Limitations: no limitations General appearance: alert, in no apparent distress, anxious Head exam: Present: atraumatic, normocephalic, normal inspection Eye exam: Present: normal appearance, PERRL, EOMI. Absent: scleral icterus, conjunctival injection, periorbital swelling ENT exam: Present: normal exam, mucous membranes moist Neck exam: Present: normal inspection. Absent: tenderness, meningismus, lymphadenopathy Respiratory exam: Present: respiratory distress, wheezes, accessory muscle use, decreased breath sounds, prolonged expiratory. Absent: rales, rhonchi, stridor Cardiovascular Exam: Present: regular rate, normal rhythm, normal heart sounds. Absent: systolic murmur, diastolic murmur, rubs, gallop, clicks GI/Abdominal exam: Present: soft, normal bowel sounds. Absent: distended, tenderness, guarding, rebound, rigid Extremities exam: Present: normal inspection, full ROM, normal capillary refill. Absent: tenderness, pedal edema, joint swelling, calf tenderness Back exam: Present: normal inspection Neurological exam: Present: alert, oriented X3, CN II-XII intact Psychiatric exam: Present: normal affect, normal mood Skin exam: Present: warm, dry, intact, normal color. Absent: rash Course Vital Signs 09/19/21 09/19/21 21:48 23:00 Temperature 98.0 F Pulse Rate 89 71 Respiratory 34 H 18 Rate Blood Pressure 115/71 121/75 O2 Sat by Pulse 96 96 Oximetry - Reevaluation(s) Reevaluation #1: 09/19/21 23:50 Medical record is reviewed Reevaluation #2: 09/19/21 23:50 Patient informed of results and questions answered Reevaluation #3: 09/19/21 23:51 Patient has no real improvement in breathing here in the ER - Consultations Consultation #1: Spoke with Dr. Lambert agrees to admit the patient Medical Decision Making - Medical Decision Making 76 male to the emergency department for evaluation significant shortness of breath. Patient will be admitted for COPD exacerbation significant and severe COPD. Worsening for the last 3 days today really got - Lab Data Result diagrams: 09/19/21 22:40 09/19/21 22:40 Lab Results 09/19/21 09/19/21 09/19/21 Range/Units 22:40 22:40 22:40 WBC 9.5 (3.8-10.6) k/uL RBC 4.23 L (4.30-5.90) m/uL Hgb 13.5 (13.0-17.5) gm/dL Hct 41.0 (39.0-53.0) % MCV 97.1 (80.0-100.0) fL MCH 31.9 (25.0-35.0) pg MCHC 32.9 (31.0-37.0) g/dL RDW 12.8 (11.5-15.5) % Plt Count 225 (150-450) k/uL MPV 7.9 Neutrophils % 69 % Lymphocytes % 20 % Monocytes % 9 % Eosinophils % 0 % Basophils % 1 % Neutrophils # 6.5 (1.3-7.7) k/uL Lymphocytes # 1.9 (1.0-4.8) k/uL Monocytes # 0.8 (0-1.0) k/uL Eosinophils # 0.0 (0-0.7) k/uL Basophils # 0.1 (0-0.2) k/uL PT 11.0 (9.0-12.0) sec INR 1.0 (<1.2) APTT 24.7 (22.0-30.0) sec Sodium 139 (137-145) mmol/L Potassium 4.1 (3.5-5.1) mmol/L Chloride 110 H (98-107) mmol/L Carbon Dioxide 24 (22-30) mmol/L Anion Gap 5 mmol/L BUN 24 H (9-20) mg/dL Creatinine 0.84 (0.66-1.25) mg/dL Est GFR (CKD-EPI)AfAm >90 (>60 ml/min/1.73 sqM) Est GFR (CKD-EPI)NonAf 85 (>60 ml/min/1.73 sqM) Glucose 104 H (74-99) mg/dL Plasma Lactic Acid Santi (0.7-2.0) mmol/L Calcium 9.0 (8.4-10.2) mg/dL Magnesium 2.0 (1.6-2.3) mg/dL Total Bilirubin 0.3 (0.2-1.3) mg/dL AST 20 (17-59) U/L ALT 23 (4-49) U/L Alkaline Phosphatase 64 (38-126) U/L Troponin I (0.000-0.034) ng/mL Total Protein 6.0 L (6.3-8.2) g/dL Albumin 3.6 (3.5-5.0) g/dL 09/19/21 09/19/21 Range/Units 22:40 22:40 WBC (3.8-10.6) k/uL RBC (4.30-5.90) m/uL Hgb (13.0-17.5) gm/dL Hct (39.0-53.0) % MCV (80.0-100.0) fL MCH (25.0-35.0) pg MCHC (31.0-37.0) g/dL RDW (11.5-15.5) % Plt Count (150-450) k/uL MPV Neutrophils % % Lymphocytes % % Monocytes % % Eosinophils % % Basophils % % Neutrophils # (1.3-7.7) k/uL Lymphocytes # (1.0-4.8) k/uL Monocytes # (0-1.0) k/uL Eosinophils # (0-0.7) k/uL Basophils # (0-0.2) k/uL PT (9.0-12.0) sec INR (<1.2) APTT (22.0-30.0) sec Sodium (137-145) mmol/L Potassium (3.5-5.1) mmol/L Chloride (98-107) mmol/L Carbon Dioxide (22-30) mmol/L Anion Gap mmol/L BUN (9-20) mg/dL Creatinine (0.66-1.25) mg/dL Est GFR (CKD-EPI)AfAm (>60 ml/min/1.73 sqM) Est GFR (CKD-EPI)NonAf (>60 ml/min/1.73 sqM) Glucose (74-99) mg/dL Plasma Lactic Acid Santi 1.1 (0.7-2.0) mmol/L Calcium (8.4-10.2) mg/dL Magnesium (1.6-2.3) mg/dL Total Bilirubin (0.2-1.3) mg/dL AST (17-59) U/L ALT (4-49) U/L Alkaline Phosphatase (38-126) U/L Troponin I <0.012 (0.000-0.034) ng/mL Total Protein (6.3-8.2) g/dL Albumin (3.5-5.0) g/dL - EKG Data -: EKG Interpreted by Me (EKG sinus 81, IL 186 QRS 90 QTC 399) - Radiology Data Radiology results: report reviewed, image reviewed Disposition Clinical Impression: COPD with acute exacerbation, COPD exacerbation, Shortness of breath, Bronchitis, Acute exacerbation of chronic obstructive airways disease Disposition: ADMITTED IP TO THIS HOSP Condition: Fair Is patient prescribed a controlled substance at d/c from ED?: No Referrals: Fernando Lambert Jr, [Primary Care Provider] - 1-2 days Time of Disposition: 23:45
[2021-09-19 22:53] LABS: Basophils # (A) 0.1 k/uL (0-0.2); Basophils % (A) 1 %; Eosinophils % (A) 0 %; HGB 13.5 gm/dL (13.0-17.5); Lymphocytes # (A) 1.9 k/uL (1.0-4.8); Lymphocytes % (A) 20 %; MCH 31.9 pg (25.0-35.0); MCHC 32.9 g/dL (31.0-37.0); MCV 97.1 fL (80.0-100.0); Mean Platelet Volume 7.9; Monocytes # (A) 0.8 k/uL (0-1.0); Monocytes % (A) 9 %; Neutrophils # (A) 6.5 k/uL (1.3-7.7); Neutrophils % (A) 69 %; Platelet Count 225 k/uL (150-450); RBC 4.23 m/uL (4.30-5.90); RDW 12.8 % (11.5-15.5); WBC 9.5 k/uL (3.8-10.6)
[2021-09-19 23:05] LABS: ALT 23 U/L (4-49); AST 20 U/L (17-59); African American GFR (CKD) >90 (>60 ml/min/1.73 sqM); Albumin 3.6 g/dL (3.5-5.0); Alkaline Phosphatase 64 U/L (38-126); Anion Gap 5 mmol/L; Blood Urea Nitrogen 24 mg/dL (9-20); Carbon Dioxide 24 mmol/L (22-30); Chloride 110 mmol/L (98-107); Glucose 104 mg/dL (74-99); Non-African American GFR(CKD) 85 (>60 ml/min/1.73 sqM); Potassium 4.1 mmol/L (3.5-5.1); Sodium 139 mmol/L (137-145); Total Bilirubin 0.3 mg/dL (0.2-1.3)
[2021-09-19 23:20] LABS: Partial Thromboplastin Time 24.7 sec (22.0-30.0)
--- NOTE | 2021-09-19 23:33 | XR ---
EXAMINATION TYPE: XR chest 1V portable DATE OF EXAM: 09/19/2021 COMPARISON: 09/15/2021 HISTORY: Short of breath TECHNIQUE: Single view FINDINGS: Heart is not enlarged. There is coarsening of the interstitial markings. Costophrenic angle s are clear. No heart failure. Bony thorax is intact. IMPRESSION: There is some pulmonary interstitial fibrosis without change. No heart failure.
[2021-09-19] MEDS ORDERED: methylPREDNISolone SOD SUCCI 125 MG/2 ML VIAL IV STA (23:44)
[2021-09-20] MEDS: SODIUM CHLORIDE 0.9% 1,000 ML IV SCH ×3 (00:18→22:03)
[2021-09-20] MEDS: methylPREDNISolone SOD SUCCI 125 MG/2 ML VIAL IV SCH ×5 (01:39→23:44)
[2021-09-20] MEDS: IPRATROPIUM-ALBUTEROL 3 ML NEB INHALATION PRN ×2 (05:43→23:53)
[2021-09-20] MEDS: AZITHROMYCIN 500 MG TAB PO SCH (07:15)
[2021-09-20] MEDS: ALBUTEROL NEBULIZED 2.5 MG/3 ML INHALATION SCH ×4 (07:51→19:47)
--- NOTE | 2021-09-20 18:16 | P.HPIM ---
History of Present Illness H&P Date: 09/20/21 Chief Complaint: Shortness of breath Patient percent emergency room on 09/19/2021 at 2150 with complaints of shortness of breath, mode of arrival wheelchair. He is a 76-year-old male patient with long-standing history of COPD with multiple admits. Does state that he had had increasing shortness of breath over the past few days and was relating it to the change in weather with humidity and heat. Patient is noted to have multiple hospital and admissions for similar symptoms. Initial set of vital signs 98.0 orally, pulse rate of 89, respiratory rate of 34, pressures 11 5/71, maintaining oxygen saturation 96% on room air. Initial blood work reveals white blood count of 9.5, hemoglobin 13.5, hematocrit 41.0 and a platelet count of 225. Chemistry reveals a sodium of 139, potassium 4.1, chloride 110, albumin of 24, creatinine of 0.84, glucose 104 troponins were negative at less than 0.012. Liver enzymes reveal AST of 20, ELT of 23. Review of Systems Constitutional: Reports as per HPI Ears, nose, mouth and throat: Reports as per HPI Cardiovascular: Reports as per HPI Respiratory: Reports cough, Reports dyspnea, Reports wheezing Gastrointestinal: Reports as per HPI Genitourinary: Reports as per HPI Musculoskeletal: Reports as per HPI Integumentary: Reports as per HPI Neurological: Reports as per HPI Psychiatric: Reports as per HPI Endocrine: Reports as per HPI Hematologic/Lymphatic: Reports as per HPI Allergic/Immunologic: Reports as per HPI Past Medical History Past Medical History: Atrial Fibrillation, Atrial Flutter, COPD, GERD/Reflux, Pneumonia, Prostate Disorder Additional Past Medical History / Comment(s): Paroxysmal Afib, bronchitis, BPH, constipation, vertigo, chronic low back pain/DDD. covid 06/22 History of Any Multi-Drug Resistant Organisms: None Reported Past Surgical History: Back Surgery Additional Past Surgical History / Comment(s): Bilateral cataract removals-lens implants, colonoscopy, multiple kyphoplasties. Past Anesthesia/Blood Transfusion Reactions: No Reported Reaction Additional Past Anesthesia/Blood Transfusion Reaction / Comment(s): Has never received any blood transfusions. Past Psychological History: No Psychological Hx Reported Additional Psychological History / Comment(s): Pt resides with his son, (Jt) and grandson. They live in a trailer. Pt manages his own medications. He has a nebulizer. His son cooks and drives pt to [employer]. Pt uses a walker/wheelchair. He has a nebulizer. Smoking Status: Current every day smoker Past Alcohol Use History: None Reported Additional Past Alcohol Use History / Comment(s): Pt started smoking age 11(1956) got up to 5 ppd for many years then cut down to 3 ppd, currently smoking 1 ppd. Past Drug Use History: None Reported - Past Family History Mother Family Medical History: AFIB, Dementia Father Family Medical History: Myocardial Infarction ([place]) Additional Family Medical History / Comment(s): in his 70's [place] Medications and Allergies Home Medications Medication Instructions Recorded Confirmed Type Tamsulosin HCl [Flomax] 0.4 mg PO BID 03/24/18 09/20/21 History Apixaban [Eliquis] 5 mg PO BID 09/14/18 09/20/21 History Metoprolol Tartrate [Lopressor] 50 mg PO BID 02/04/19 09/20/21 History Ergocalciferol [Vitamin D2 1,250 mcg PO GROVES 05/05/19 09/20/21 History (DRISDOL)] Alendronate Sodium [Fosamax] 70 mg PO GROVES 08/21/19 09/20/21 History Budesonide/Formoterol Fumarate 2 puff INHALATION RT-BID 05/21/20 09/20/21 History [Symbicort 160-4.5 Mcg Inhaler] Fluticasone Propion/Salmeterol 1 puff INHALATION RT-BID 04/07/21 09/20/21 History [Advair 250-50 Diskus] Gabapentin [Neurontin] 100 mg PO BID 04/07/21 09/20/21 History Albuterol Inhaler [Ventolin Hfa 2 puff INHALATION RT-QID #8 gm 08/12/21 09/20/21 Rx Inhaler] Doxycycline Hyclate 100 mg PO BID 7 Days #14 capsule 09/15/21 09/20/21 Rx predniSONE [Deltasone] 40 mg PO DAILY 5 Days #10 tab 09/15/21 09/20/21 Rx Albuterol Nebulized [Ventolin 2.5 mg INHALATION RT-Q4H PRN 09/20/21 09/20/21 History Nebulized] Allergies Allergy/AdvReac Type Severity Reaction Status Date / Time Iodinated Contrast Media Allergy Rash/Hives Verified 09/20/21 07:54 [Iodinated Contrast- Oral and IV Dye] latex Allergy Rash/Hives Verified 09/20/21 07:54 Physical Exam Vitals: Vital Signs Temp Pulse Pulse Resp BP BP Pulse Ox 09/20/21 15:42 91 16 09/20/21 15:28 88 16 09/20/21 13:39 98.2 F 104 H 20 116/68 91 L 09/20/21 11:35 91 09/20/21 11:25 89 09/20/21 08:04 95 09/20/21 07:51 96 95 09/20/21 07:00 98.1 F 93 20 145/72 09/20/21 05:54 76 09/20/21 05:43 75 09/20/21 01:12 97.8 F 85 18 153/92 93 L 09/20/21 00:19 79 20 139/81 95 09/20/21 00:06 76 09/19/21 23:47 73 09/19/21 23:00 71 18 121/75 96 09/19/21 21:48 98.0 F 89 34 H 115/71 96 Intake and Output 09/20/21 09/20/21 09/20/21 06:59 14:59 22:59 Intake Total 240 Balance 240 Intake: Oral 240 Other: Voiding Method Toilet Toilet Urinal Urinal # Voids 2 2 Weight 70.307 kg GENERAL: Well-appearing, well-nourished and in no acute distress. HEAD: Atraumatic, normocephalic. EYES: Pupils equal round and reactive to light, extraocular movements intact, sclera anicteric, conjunctiva are normal. ENT:nares patent, oropharynx clear without exudates. Moist mucous membranes. NECK: Normal range of motion, supple without lymphadenopathy or JVD, no thyromeg mando LUNGS: Breath sounds clear and diminished throughout to auscultation bilaterally and equal. No wheezes rales or rhonchi. HEART: Regular rate and rhythm without murmurs, rubs or gallops.S1S2 Normal ABDOMEN: Soft, nontender, normoactive bowel sounds. No guarding, no rebound. No masses appreciated. EXTREMITIES: Normal range of motion, no pitting or edema. No clubbing or cyanosis. NEUROLOGICAL: Cranial nerves II through XII grossly intact. Normal speech, normal gait. PSYCH: Normal mood, normal affect. SKIN: Warm, Dry, normal turgor, no rashes or lesions noted. Results CBC & Chem 7: 09/19/21 22:40 09/19/21 22:40 Labs: Abnormal Lab Results - Last 24 Hours (Table) 09/19/21 09/19/21 Range/Units 22:40 22:40 RBC 4.23 L (4.30-5.90) m/uL Chloride 110 H (98-107) mmol/L BUN 24 H (9-20) mg/dL Glucose 104 H (74-99) mg/dL Total Protein 6.0 L (6.3-8.2) g/dL Thrombosis Risk Factor Assmnt - Choose All That Apply Any of the Below Risk Factors Present?: Yes Each Factor Represents 1 point: Abnormal pulmonary function (COPD), Obesity (BMI >25) Other Risk Factors: Yes Each Risk Factor Represents 3 Points: Age 75 years or older Other congenital or acquired thrombophilia - If yes, enter type in comment: No Thrombosis Risk Factor Assessment Total Risk Factor Score: 5 Thrombosis Risk Factor Assessment Level: High Risk Assessment and Plan (1) Acute exacerbation of chronic obstructive airways disease Current Visit: Yes Status: Acute Code(s): J44.1 - CHRONIC OBSTRUCTIVE PULMONARY DISEASE W (ACUTE) EXACERBATION SNOMED Code(s): 229544527 (2) COPD exacerbation Current Visit: Yes Status: Acute Code(s): J44.1 - CHRONIC OBSTRUCTIVE PULMONARY DISEASE W (ACUTE) EXACERBATION SNOMED Code(s): 263230036 (3) Shortness of breath Current Visit: Yes Status: Acute Code(s): R06.02 - SHORTNESS OF BREATH SNOMED Code(s): 495037937 (4) Acute respiratory distress syndrome in adult Current Visit: No Status: Acute Code(s): J80 - ACUTE RESPIRATORY DISTRESS SYNDROME SNOMED Code(s): 36910962 (5) BPH (benign prostatic hyperplasia) Current Visit: No Status: Acute Code(s): N40.0 - BENIGN PROSTATIC HYPERPLASIA WITHOUT LOWER URINRY TRACT SYMP SNOMED Code(s): 641864981 (6) Nicotine dependence Current Visit: No Status: Acute Code(s): F17.200 - NICOTINE DEPENDENCE, UNSPECIFIED, UNCOMPLICATED SNOMED Code(s): 12104028 (7) Shortness of breath Current Visit: No Status: Acute Code(s): R06.02 - SHORTNESS OF BREATH SNOMED Code(s): 621406963 (8) Smoker Current Visit: No Status: Acute Code(s): F17.200 - NICOTINE DEPENDENCE, UNSPECIFIED, UNCOMPLICATED SNOMED Code(s): 45362796 (9) Tobacco abuse counseling Current Visit: No Status: Acute Code(s): Z71.6 - TOBACCO ABUSE COUNSELING SNOMED Code(s): 596139329 Plan: Continue with current medication regimen as is only prescribed IV steroids Home meds reordered Healthy diet 2 L nasal cannula titrate to maintain oxygen saturations greater than 92% We'll order PPI for GI prophylaxis Patient in approximately an Azithromycin for 3 dose course We'll continue to follow closely and reassess again tomorrow Time with Patient: Greater than 30
[2021-09-20] MEDS: TAMSULOSIN 0.4 MG CAP.ER.24H PO SCH (22:01)
[2021-09-20] MEDS: APIXABAN 5 MG TAB PO SCH (22:02)
[2021-09-20] MEDS: GABAPENTIN 100 MG CAP PO SCH (22:02)
[2021-09-20] MEDS: METOPROLOL TARTRATE 50 MG TAB PO SCH (22:02)
[2021-09-21 02:13] VITALS: RESP 18
[2021-09-21] MEDS: IPRATROPIUM-ALBUTEROL 3 ML NEB INHALATION PRN (03:54)
[2021-09-21] MEDS: methylPREDNISolone SOD SUCCI 125 MG/2 ML VIAL IV SCH ×2 (05:52→12:36)
[2021-09-21] MEDS: SODIUM CHLORIDE 0.9% 1,000 ML IV SCH (05:54)
[2021-09-21] MEDS: ALBUTEROL NEBULIZED 2.5 MG/3 ML INHALATION SCH ×2 (07:35→11:00)
[2021-09-21] MEDS: AZITHROMYCIN 500 MG TAB PO SCH (07:40)
[2021-09-21] MEDS: TAMSULOSIN 0.4 MG CAP.ER.24H PO SCH (07:40)
[2021-09-21] MEDS: APIXABAN 5 MG TAB PO SCH (07:40)
[2021-09-21] MEDS: METOPROLOL TARTRATE 50 MG TAB PO SCH (07:40)
[2021-09-21] MEDS: GABAPENTIN 100 MG CAP PO SCH (07:50)
[2021-09-21 09:48] VITALS: BP 121/67; TEMP 98.3
[2021-09-21 11:16] VITALS: PULSE 77
--- NOTE | 2021-09-21 13:30 | P.PN ---
Subjective Progress Note Date: 09/21/21 Principal diagnosis: Shortness of breath From H&P HPI : Patient percent emergency room on 09/19/2021 at 2150 with complaints of shortness of breath, mode of arrival wheelchair. He is a 76-year-old male patient with long-standing history of COPD with multiple admits. Does state that he had had increasing shortness of breath over the past few days and was relating it to the change in weather with humidity and heat. Patient is noted to have multiple hospital and admissions for similar symptoms. Initial set of vital signs 98.0 orally, pulse rate of 89, respiratory rate of 3 4, pressures 115/71, maintaining oxygen saturation 96% on room air. Initial blood work reveals white blood count of 9.5, hemoglobin 13.5, hematocrit 41.0 and a platelet count of 225. Chemistry reveals a sodium of 139, potassium 4.1, chloride 110, albumin of 24, creatinine of 0.84, glucose 104 troponins were negative at less than 0.012. Liver enzymes reveal AST of 20, ELT of 23. 09/21/2021 patient resting comfortably in bed at this time with no complaints of chest pain or pressure, shortness of breath or difficulty breathing at this time. He has expressed interest to be discharged home today as he states "I feel much better today". Vital signs stable this patient is afebrile with a temperature of 98.3 orally, pulse rate of 89, respiratory rate of 18, maintaining oxygen saturation 94% on room air, blood pressure 121/67. Patient will follow-up in the office with Dr. Lambert in 2-3 days. Objective - Vital Signs Vital signs: Vital Signs Temp 98.3 F 09/21/21 07:00 Pulse 77 09/21/21 11:15 Resp 18 09/21/21 08:00 BP 121/67 09/21/21 07:00 Pulse Ox 94 L 09/21/21 07:00 FiO2 Intake & Output 09/20/21 09/21/21 09/21/21 18:59 06:59 18:59 Intake Total 358 240 Balance 358 240 Intake: Oral 358 240 Other: Voiding Method Toilet Toilet Urinal Urinal # Voids 2 32 - Exam GENERAL: Elderly male, on room air Well-appearing, well-nourished and in no acute distress. HEAD: Atraumatic, normocephalic. EYES: Pupils equal round and reactive to light, extraocular movements intact, sclera anicteric, conjunctiva are normal. ENT:nares patent, oropharynx clear without exudates. Moist mucous membranes. NECK: Normal range of motion, supple without lymphadenopathy or JVD, no thyromegaly LUNGS: Breath sounds clear and diminished throughout to auscultation bilaterally. No wheezes rales or rhonchi. HEART: Regular rate and rhythm without murmurs, rubs or gallops.S1S2 Normal ABDOMEN: Soft, nontender, normoactive bowel sounds. No guarding, no rebound. No masses appreciated. EXTREMITIES: Normal range of motion, no pitting or edema. No clubbing or cyanosis. NEUROLOGICAL: Cranial nerves II through XII grossly intact. Normal speech, normal gait. PSYCH: Normal mood, normal affect. SKIN: Warm, Dry, normal turgor, no rashes or lesions noted. - Labs CBC & Chem 7: 09/19/21 22:40 09/19/21 22:40 Assessment and Plan (1) Acute exacerbation of chronic obstructive airways disease Current Visit: Yes Status: Acute Code(s): J44.1 - CHRONIC OBSTRUCTIVE PULMONARY DISEASE W (ACUTE) EXACERBATION SNOMED Code(s): 456323465 (2) COPD exacerbation Current Visit: Yes Status: Acute Code(s): J44.1 - CHRONIC OBSTRUCTIVE PULMONARY DISEASE W (ACUTE) EXACERBATION SNOMED Code(s): 232026404 (3) Shortness of breath Current Visit: Yes Status: Acute Code(s): R06.02 - SHORTNESS OF BREATH SNOMED Code(s): 984736606 (4) Acute respiratory distress syndrome in adult Current Visit: No Status: Acute Code(s): J80 - ACUTE RESPIRATORY DISTRESS SYNDROME SNOMED Code(s): 72719829 (5) BPH (benign prostatic hyperplasia) Current Visit: No Status: Acute Code(s): N40.0 - BENIGN PROSTATIC HYPERPLASIA WITHOUT LOWER URINRY TRACT SYMP SNOMED Code(s): 247244328 (6) Nicotine dependence Current Visit: No Status: Acute Code(s): F17.200 - NICOTINE DEPENDENCE, UNSPECIFIED, UNCOMPLICATED SNOMED Code(s): 25294385 (7) Shortness of breath Current Visit: No Status: Acute Code(s): R06.02 - SHORTNESS OF BREATH SNOMED Code(s): 697607733 (8) Smoker Current Visit: No Status: Acute Code(s): F17.200 - NICOTINE DEPENDENCE, UNSPECIFIED, UNCOMPLICATED SNOMED Code(s): 83332564 (9) Tobacco abuse counseling Current Visit: No Status: Acute Code(s): Z71.6 - TOBACCO ABUSE COUNSELING SNOMED Code(s): 123784282 Plan: We'll discharge home today with follow-up in office in 2-3 days Patient will continue with home dose of steroids Patient instructed to call office if he becomes short of breath or has difficulty breathing between discharge and follow-up appointment. Time with Patient: Greater than 30
== END 2021-09-21 15:34 | disposition home or self-care (01) ==
LOC: EC 21:42 → 6NMEDSUR 23:44
PROVIDERS: ADMIT Family Medicine; ATTEND Family Medicine
DX: J44.1 Chronic obstructive pulmonary disease with (acute) exacerbation (principal); J80 Acute respiratory distress syndrome; F17.210 Nicotine dependence, cigarettes, uncomplicated; F41.9 Anxiety disorder, unspecified; I48.0 Paroxysmal atrial fibrillation; N40.0 Benign prostatic hyperplasia without lower urinary tract symptoms; K21.9 Gastro-esophageal reflux disease without esophagitis; I48.92 Unspecified atrial flutter; K59.00 Constipation, unspecified; G89.29 Other chronic pain; M54.50 Low back pain, unspecified; E66.9 Obesity, unspecified; Z68.27 Body mass index [BMI] 27.0-27.9, adult; Z79.01 Long term (current) use of anticoagulants; Z79.51 Long term (current) use of inhaled steroids; Z79.83 Long term (current) use of bisphosphonates; Z79.899 Other long term (current) drug therapy; Z91.041 Radiographic dye allergy status; Z91.040 Latex allergy status; Z86.16 Personal history of COVID-19; Z98.42 Cataract extraction status, left eye; Z98.41 Cataract extraction status, right eye; Z96.1 Presence of intraocular lens; Z98.890 Other specified postprocedural states; Z87.01 Personal history of pneumonia (recurrent); Z71.6 Tobacco abuse counseling; Z82.49 Family history of ischemic heart disease and other diseases of the circulatory system; Z82.0 Family history of epilepsy and other diseases of the nervous system
CPT/HCPCS: 96376 ×2; 96361 ×4; 96374; 99285; 36415; 94640 ×5; 94760; 93005; 83880; 80053; 83605; 83735; 84484; 85025; 85610; 85730; 71045; G0378 ×2; J2930 ×2

== ENCOUNTER 2021-11-17 18:01 | Observation (INO) | payer MEDICARE ==
[2021-11-17] MEDS ORDERED: IPRATROPIUM-ALBUTEROL 3 ML NEB INHALATION STA ×2 (18:30→20:00)
[2021-11-17] MEDS ORDERED: methylPREDNISolone SOD SUCCI 125 MG/2 ML VIAL IV STA (18:30)
--- NOTE | 2021-11-17 18:32 | ED ---
General Adult HPI - General Stated complaint: SOB Time Seen by Provider: 11/17/21 18:27 Source: patient, RN notes reviewed Mode of arrival: wheelchair Limitations: no limitations - History of Present Illness Initial comments: Patient is a pleasant 76-year-old male presenting to the emergency Department with difficulty in breathing. Onset of symptoms was a couple of days ago. Patient has occasional cough. No fevers at home. Patient does have history of similar symptoms previously associated with COPD. No leg pain or leg swelling. No chest pain. - Related Data Home Medications Medication Instructions Recorded Confirmed Tamsulosin HCl [Flomax] 0.4 mg PO BID 03/24/18 09/20/21 Apixaban [Eliquis] 5 mg PO BID 09/14/18 09/20/21 Metoprolol Tartrate [Lopressor] 50 mg PO BID 02/04/19 09/20/21 Ergocalciferol [Vitamin D2 1,250 mcg PO GROVES 05/05/19 09/20/21 (DRISDOL)] Alendronate Sodium [Fosamax] 70 mg PO GROVES 08/21/19 09/20/21 Budesonide/Formoterol Fumarate 2 puff INHALATION RT-BID 05/21/20 09/20/21 [Symbicort 160-4.5 Mcg Inhaler] Fluticasone Propion/Salmeterol 1 puff INHALATION RT-BID 04/07/21 09/20/21 [Advair 250-50 Diskus] Gabapentin [Neurontin] 100 mg PO BID 04/07/21 09/20/21 Albuterol Nebulized [Ventolin 2.5 mg INHALATION RT-Q4H PRN 09/20/21 09/20/21 Nebulized] Previous Rx's Medication Instructions Recorded Albuterol Inhaler [Ventolin Hfa 2 puff INHALATION RT-QID #8 gm 08/12/21 Inhaler] Albuterol Nebulized [Ventolin 5 mg INHALATION RT-QID ml 09/21/21 Nebulized] Azithromycin [Zithromax] 500 mg PO DAILY 2 Days #2 tab 09/21/21 Doxycycline Hyclate 100 mg PO BID 7 Days #14 capsule 09/21/21 Acetaminophen-Codeine 300-30mg 1 tab PO Q4H PRN 3 Days #18 tablet 10/28/21 [Tylenol w/codeine #3] Allergies Allergy/AdvReac Type Severity Reaction Status Date / Time Iodinated Contrast Media Allergy Rash/Hives Verified 11/17/21 18:31 [Iodinated Contrast- Oral and IV Dye] latex Allergy Rash/Hives Verified 11/17/21 18:31 Review of Systems ROS Statement: Those systems with pertinent positive or pertinent negative responses have been documented in the HPI. ROS Other: All systems not noted in ROS Statement are negative. Constitutional: Denies: fever Eyes: Denies: eye pain ENT: Denies: ear pain Respiratory: Reports: as per HPI, cough, dyspnea Cardiovascular: Denies: chest pain Endocrine: Reports: fatigue Gastrointestinal: Denies: abdominal pain Genitourinary: Denies: urgency Musculoskeletal: Denies: back pain Skin: Denies: rash Neurological: Denies: weakness Past Medical History Past Medical History: Atrial Fibrillation, Atrial Flutter, COPD, GERD/Reflux, Pneumonia, Prostate Disorder Additional Past Medical History / Comment(s): Paroxysmal Afib, bronchitis, BPH, constipation, vertigo, chronic low back pain/DDD. covid 06/22 History of Any Multi-Drug Resistant Organisms: None Reported Past Surgical History: Back Surgery Additional Past Surgical History / Comment(s): Bilateral cataract removals-lens implants, colonoscopy, multiple kyphoplasties. Past Anesthesia/Blood Transfusion Reactions: No Reported Reaction Additional Past Anesthesia/Blood Transfusion Reaction / Comment(s): Has never received any blood transfusions. Past Psychological History: No Psychological Hx Reported Smoking Status: Current every day smoker Past Alcohol Use History: None Reported Past Drug Use History: None Reported - Past Family History Mother Family Medical History: AFIB, Dementia Father Family Medical History: Myocardial Infarction ([place]) Additional Family Medical History / Comment(s): in his 70's [place] General Exam Limitations: no limitations General appearance: alert, in no apparent distress Head exam: Present: normocephalic Eye exam: Present: normal appearance Neck exam: Present: normal inspection Respiratory exam: Present: wheezes, decreased breath sounds Cardiovascular Exam: Present: regular rate, normal rhythm GI/Abdominal exam: Present: soft. Absent: tenderness Extremities exam: Present: normal inspection. Absent: pedal edema, calf tenderness Neurological exam: Present: alert Psychiatric exam: Present: normal affect, normal mood Skin exam: Present: normal color Course Vital Signs 11/17/21 11/17/21 11/17/21 18:28 18:48 19:29 Temperature 99.8 F H Pulse Rate 96 84 Respiratory 20 28 H Rate Blood Pressure 141/94 O2 Sat by Pulse 92 L Oximetry 11/17/21 11/17/21 19:35 20:02 Temperature Pulse Rate 86 84 Respiratory Rate Blood Pressure O2 Sat by Pulse Oximetry EKG Findings - EKG Comments: EKG Findings:: Sinus tachycardia 101. CO 172. QRS 89. QT 344. QTC 402. Normal axis. Normal QRS. No acute ST change. Medical Decision Making - Medical Decision Making Patient reevaluated without significant improvement. Patient still has decreased air exchange and wheezing. Patient and family updated on results and plan. Case was discussed in detail with Dr. Ortega, who will admit his patient. - Lab Data Result diagrams: 11/17/21 18:47 11/17/21 18:47 Lab Results 11/17/21 11/17/21 11/17/21 Range/Units 18:47 18:47 18:47 WBC 8.6 (3.8-10.6) k/uL RBC 4.63 (4.30-5.90) m/uL Hgb 14.8 (13.0-17.5) gm/dL Hct 44.8 (39.0-53.0) % MCV 96.8 (80.0-100.0) fL MCH 32.0 (25.0-35.0) pg MCHC 33.1 (31.0-37.0) g/dL RDW 13.1 (11.5-15.5) % Plt Count 227 (150-450) k/uL MPV 8.0 Neutrophils % 68 % Lymphocytes % 18 % Monocytes % 8 % Eosinophils % 4 % Basophils % 1 % Neutrophils # 5.8 (1.3-7.7) k/uL Lymphocytes # 1.5 (1.0-4.8) k/uL Monocytes # 0.7 (0-1.0) k/uL Eosinophils # 0.3 (0-0.7) k/uL Basophils # 0.0 (0-0.2) k/uL PT 10.5 (9.0-12.0) sec INR 1.0 (<1.2) APTT 25.8 (22.0-30.0) sec Sodium 135 L (137-145) mmol/L Potassium 4.1 (3.5-5.1) mmol/L Chloride 102 (98-107) mmol/L Carbon Dioxide 20 L (22-30) mmol/L Anion Gap 13 mmol/L BUN 14 (9-20) mg/dL Creatinine 0.87 (0.66-1.25) mg/dL Est GFR (CKD-EPI)AfAm >90 (>60 ml/min/1.73 sqM) Est GFR (CKD-EPI)NonAf 84 (>60 ml/min/1.73 sqM) Glucose 91 (74-99) mg/dL Plasma Lactic Acid Santi (0.7-2.0) mmol/L Calcium 9.4 (8.4-10.2) mg/dL Total Bilirubin 0.5 (0.2-1.3) mg/dL AST 17 (17-59) U/L ALT 12 (4-49) U/L Alkaline Phosphatase 67 (38-126) U/L Troponin I (0.000-0.034) ng/mL Total Protein 6.7 (6.3-8.2) g/dL Albumin 4.4 (3.5-5.0) g/dL Coronavirus (PCR) (Not Detectd) Influenza Type A RNA (Not Detectd) Influenza Type B (PCR) (Not Detectd) 11/17/21 11/17/21 11/17/21 Range/Units 18:47 18:47 18:47 WBC (3.8-10.6) k/uL RBC (4.30-5.90) m/uL Hgb (13.0-17.5) gm/dL Hct (39.0-53.0) % MCV (80.0-100.0) fL MCH (25.0-35.0) pg MCHC (31.0-37.0) g/dL RDW (11.5-15.5) % Plt Count (150-450) k/uL MPV Neutrophils % % Lymphocytes % % Monocytes % % Eosinophils % % Basophils % % Neutrophils # (1.3-7.7) k/uL Lymphocytes # (1.0-4.8) k/uL Monocytes # (0-1.0) k/uL Eosinophils # (0-0.7) k/uL Basophils # (0-0.2) k/uL PT (9.0-12.0) sec INR (<1.2) APTT (22.0-30.0) sec Sodium (137-145) mmol/L Potassium (3.5-5.1) mmol/L Chloride (98-107) mmol/L Carbon Dioxide (22-30) mmol/L Anion Gap mmol/L BUN (9-20) mg/dL Creatinine (0.66-1.25) mg/dL Est GFR (CKD-EPI)AfAm (>60 ml/min/1.73 sqM) Est GFR (CKD-EPI)NonAf (>60 ml/min/1.73 sqM) Glucose (74-99) mg/dL Plasma Lactic Acid Santi 1.2 (0.7-2.0) mmol/L Calcium (8.4-10.2) mg/dL Total Bilirubin (0.2-1.3) mg/dL AST (17-59) U/L ALT (4-49) U/L Alkaline Phosphatase (38-126) U/L Troponin I <0.012 (0.000-0.034) ng/mL Total Protein (6.3-8.2) g/dL Albumin (3.5-5.0) g/dL Coronavirus (PCR) Not Detected (Not Detectd) Influenza Type A RNA (Not Detectd) Influenza Type B (PCR) (Not Detectd) 11/17/21 Range/Units 19:27 WBC (3.8-10.6) k/uL RBC (4.30-5.90) m/uL Hgb (13.0-17.5) gm/dL Hct (39.0-53.0) % MCV (80.0-100.0) fL MCH (25.0-35.0) pg MCHC (31.0-37.0) g/dL RDW (11.5-15.5) % Plt Count (150-450) k/uL MPV Neutrophils % % Lymphocytes % % Monocytes % % Eosinophils % % Basophils % % Neutrophils # (1.3-7.7) k/uL Lymphocytes # (1.0-4.8) k/uL Monocytes # (0-1.0) k/uL Eosinophils # (0-0.7) k/uL Basophils # (0-0.2) k/uL PT (9.0-12.0) sec INR (<1.2) APTT (22.0-30.0) sec Sodium (137-145) mmol/L Potassium (3.5-5.1) mmol/L Chloride (98-107) mmol/L Carbon Dioxide (22-30) mmol/L Anion Gap mmol/L BUN (9-20) mg/dL Creatinine (0.66-1.25) mg/dL Est GFR (CKD-EPI)AfAm (>60 ml/min/1.73 sqM) Est GFR (CKD-EPI)NonAf (>60 ml/min/1.73 sqM) Glucose (74-99) mg/dL Plasma Lactic Acid Santi (0.7-2.0) mmol/L Calcium (8.4-10.2) mg/dL Total Bilirubin (0.2-1.3) mg/dL AST (17-59) U/L ALT (4-49) U/L Alkaline Phosphatase (38-126) U/L Troponin I (0.000-0.034) ng/mL Total Protein (6.3-8.2) g/dL Albumin (3.5-5.0) g/dL Coronavirus (PCR) (Not Detectd) Influenza Type A RNA Not Detected (Not Detectd) Influenza Type B (PCR) Not Detected (Not Detectd) - Radiology Data Radiology results: image reviewed (Chest x-ray shows interstitial fibrosis) Disposition Clinical Impression: COPD with acute exacerbation Disposition: ADMITTED IP TO THIS HOSP Is patient prescribed a controlled substance at d/c from ED?: No Referrals: Fernando Lambert Jr, DO [Primary Care Provider] - 1-2 days Time of Disposition: 20:06
[2021-11-17 19:09] LABS: Basophils % (A) 1 %; Eosinophils # (A) 0.3 k/uL (0-0.7); Eosinophils % (A) 4 %; HCT 44.8 % (39.0-53.0); HGB 14.8 gm/dL (13.0-17.5); Lymphocytes # (A) 1.5 k/uL (1.0-4.8); Lymphocytes % (A) 18 %; MCHC 33.1 g/dL (31.0-37.0); MCV 96.8 fL (80.0-100.0); Monocytes # (A) 0.7 k/uL (0-1.0); Monocytes % (A) 8 %; Neutrophils # (A) 5.8 k/uL (1.3-7.7); Neutrophils % (A) 68 %; Platelet Count 227 k/uL (150-450); RBC 4.63 m/uL (4.30-5.90); RDW 13.1 % (11.5-15.5); WBC 8.6 k/uL (3.8-10.6)
--- NOTE | 2021-11-17 19:11 | XR ---
EXAMINATION TYPE: XR chest 2V DATE OF EXAM: 11/17/2021 COMPARISON: 09/19/2021 HISTORY: Difficulty breathing TECHNIQUE: FINDINGS: There is no heart failure nor confluent pneumonic infiltrate. There is coarse interstitial density in the lungs. No heart failure. There are chest leads. There is multilevel thoracic and lumba r vertebral plasty. No pleural effusion. IMPRESSION: Moderate pulmonary interstitial fibrosis. No significant change compared to the old exam.
[2021-11-17 19:18] LABS: ALT 12 U/L (4-49); AST 17 U/L (17-59); African American GFR (CKD) >90 (>60 ml/min/1.73 sqM); Albumin 4.4 g/dL (3.5-5.0); Alkaline Phosphatase 67 U/L (38-126); Anion Gap 13 mmol/L; Blood Urea Nitrogen 14 mg/dL (9-20); Calcium 9.4 mg/dL (8.4-10.2); Carbon Dioxide 20 mmol/L (22-30); Chloride 102 mmol/L (98-107); Glucose 91 mg/dL (74-99); Non-African American GFR(CKD) 84 (>60 ml/min/1.73 sqM); Potassium 4.1 mmol/L (3.5-5.1); Sodium 135 mmol/L (137-145); Total Bilirubin 0.5 mg/dL (0.2-1.3); Total Protein 6.7 g/dL (6.3-8.2)
[2021-11-17 19:20] LABS: Partial Thromboplastin Time 25.8 sec (22.0-30.0); Prothrombin Time 10.5 sec (9.0-12.0)
[2021-11-17] MEDS ORDERED: ACETAMINOPHEN TAB 500 MG TAB PO STA (20:00)
[2021-11-17] MEDS ORDERED: ACETAMINOPHEN TAB 325 MG TAB PO PRN (20:07)
[2021-11-17] MEDS ORDERED: NALOXONE 0.4 MG/ML 1 ML VIAL IVP PRN (20:07)
[2021-11-17] MEDS ORDERED: AZITHROMYCIN 500 MG in SODIUM CHLORIDE 0.9% 250 ML IVPB STA (20:09)
[2021-11-17] MEDS ORDERED: AZITHROMYCIN 500 MG TAB PO SCH (20:15)
[2021-11-18] MEDS: methylPREDNISolone SOD SUCCI 125 MG/2 ML VIAL IV SCH ×4 (00:04→17:23)
[2021-11-18] MEDS: IPRATROPIUM-ALBUTEROL 3 ML NEB INHALATION PRN ×3 (00:33→23:33)
[2021-11-18] MEDS: IPRATROPIUM-ALBUTEROL 3 ML NEB INHALATION SCH ×4 (08:32→20:28)
[2021-11-18] MEDS ORDERED: IPRATROPIUM 0.5 MG/2.5 ML NEBU INHALATION PRN (08:48)
[2021-11-18] MEDS ORDERED: ALBUTEROL HFA INHALER INHALATION PRN (08:48)
[2021-11-18] MEDS ORDERED: ALBUTEROL NEBULIZED 2.5 MG/3 ML INHALATION PRN (08:48)
[2021-11-18] MEDS: DOXAZOSIN 4 MG TAB PO SCH (09:47)
[2021-11-18] MEDS: TAMSULOSIN 0.4 MG CAP.ER.24H PO SCH ×2 (09:47→20:40)
[2021-11-18] MEDS: GABAPENTIN 100 MG CAP PO SCH ×2 (09:47→20:40)
[2021-11-18] MEDS: APIXABAN 5 MG TAB PO SCH ×2 (09:47→20:40)
[2021-11-18] MEDS: METOPROLOL TARTRATE 50 MG TAB PO SCH ×2 (09:47→20:41)
--- NOTE | 2021-11-18 12:31 | P.HPIM ---
History of Present Illness H&P Date: 11/18/21 Chief Complaint: Shortness of breath This is 76-year-old white male with known COPD and tobaccoism. He will not quit smoking. He is usually in the hospital several times a year for acute exacerbation. He presented with a 2 to three-day history of increasing shortness of breath. He reports symptoms Emergency room tonight. Currently this morning he is feeling better. He has no chest pains pressures nausea vomiting or constipation. Shortness of breath slightly improved. Vital signs show borderline tachycardia. Oxygens on standby no laboratory studies pending for this a.m. Chest x-ray showed moderate pulmonary interstitial fibrosis. This is a chronic finding for him. Review of Systems All systems: negative Past Medical History Past Medical History: Atrial Fibrillation, Atrial Flutter, COPD, GERD/Reflux, Pneumonia, Prostate Disorder Additional Past Medical History / Comment(s): Paroxysmal Afib, bronchitis, BPH, constipation, vertigo, chronic low back pain/DDD. covid 06/22 History of Any Multi-Drug Resistant Organisms: None Reported Past Surgical History: Back Surgery Additional Past Surgical History / Comment(s): Bilateral cataract removals-lens implants, colonoscopy, multiple kyphoplasties. Past Anesthesia/Blood Transfusion Reactions: No Reported Reaction Additional Past Anesthesia/Blood Transfusion Reaction / Comment(s): Has never received any blood transfusions. Past Psychological History: No Psychological Hx Reported Additional Psychological History / Comment(s): Pt resides with his son, (Jt) and grandson. They live in a trailer. Pt manages his own medications. He has a nebulizer. His son cooks and drives pt to [employer]. Pt uses a walker/wheelchair. He has a nebulizer. Smoking Status: Current every day smoker Past Alcohol Use History: None Reported Additional Past Alcohol Use History / Comment(s): Pt started smoking age [age]) got up to 5 ppd for many years then cut down to 3 ppd, currently smoking 1 ppd. Past Drug Use History: None Reported - Past Family History Mother Family Medical History: AFIB, Dementia Father Family Medical History: Myocardial Infarction ([place]) Additional Family Medical History / Comment(s): in his 70's [place] Medications and Allergies Home Medications Medication Instructions Recorded Confirmed Type Tamsulosin HCl [Flomax] 0.4 mg PO BID 03/24/18 11/17/21 History Apixaban [Eliquis] 5 mg PO BID 09/14/18 11/17/21 History Metoprolol Tartrate [Lopressor] 50 mg PO BID 02/04/19 11/17/21 History Ergocalciferol [Vitamin D2 1,250 mcg PO GROVES 05/05/19 11/17/21 History (DRISDOL)] Alendronate Sodium [Fosamax] 70 mg PO GROVES 08/21/19 11/17/21 History Budesonide/Formoterol Fumarate 2 puff INHALATION RT-BID 05/21/20 11/17/21 History [Symbicort 160-4.5 Mcg Inhaler] Fluticasone Propion/Salmeterol 1 puff INHALATION RT-BID 04/07/21 11/17/21 His tory [Advair 250-50 Diskus] Gabapentin [Neurontin] 100 mg PO BID 04/07/21 11/17/21 History Albuterol Nebulized [Ventolin 2.5 mg INHALATION RT-Q4H PRN 09/20/21 11/17/21 History Nebulized] Albuterol Inhaler [Ventolin Hfa 2 puff INHALATION RT-Q6H PRN 11/17/21 11/17/21 History Inhaler] Doxazosin [Cardura] 4 mg PO DAILY 11/17/21 11/17/21 History Ipratropium Nebulized [Atrovent 0.5 mg INHALATION RT-Q4H PRN 11/17/21 11/17/21 History Nebulized 0.2 MG/ML] Allergies Allergy/AdvReac Type Severity Reaction Status Date / Time Iodinated Contrast Media Allergy Rash/Hives Verified 11/17/21 20:30 [Iodinated Contrast- Oral and IV Dye] latex Allergy Rash/Hives Verified 11/17/21 20:30 Physical Exam Vitals: Vital Signs Temp Pulse Pulse Resp BP BP Pulse Ox 11/18/21 12:23 104 H 11/18/21 12:13 104 H 11/18/21 08:51 100 11/18/21 08:32 104 H 11/18/21 07:00 97.4 F L 113 H 20 163/83 92 L 11/18/21 04:47 94 11/18/21 04:28 92 11/18/21 03:57 97.8 F 102 H 20 119/76 93 L 11/18/21 00:45 94 11/18/21 00:34 96 11/17/21 21:24 98.2 F 96 22 129/77 93 L 11/17/21 20:44 81 19 137/86 95 11/17/21 20:17 84 11/17/21 20:02 84 11/17/21 19:35 86 11/17/21 19:29 84 11/17/21 18:48 28 H 11/17/21 18:28 99.8 F H 96 20 141/94 92 L Intake and Output 11/17/21 11/18/21 11/18/21 22:59 06:59 14:59 Other: # Voids 0 2 0 Weight 68.039 kg GENERAL: Thin male and in no acute distress. HEAD: Atraumatic, normocephalic. EYES: Pupils equal round and reactive to light, extraocular movements intact, sclera anicteric, conjunctiva are normal. ENT:nares patent, oropharynx clear without exudates. Moist mucous membranes. NECK: Normal range of motion, supple without lymphadenopathy or JVD, no thyromegaly LUNGS: Breath sounds coarse with bilateral rhonchi and decreased air exchange consistent with his underlying COPD. HEART: Regular rate and rhythm without murmurs, rubs or gallops.S1S2 Normal ABDOMEN: Soft, nontender, normoactive bowel sounds. No guarding, no rebound. No masses appreciated. EXTREMITIES: Normal range of motion, no pitting or edema. No clubbing or cyanosis. NEUROLOGICAL: Cranial nerves II through XII grossly intact. Normal speech, normal gait. PSYCH: Normal mood, normal affect. SKIN: Warm, Dry, normal turgor, no rashes or lesions noted. Results CBC & Chem 7: 11/17/21 18:47 11/17/21 18:47 Labs: Abnormal Lab Results - Last 24 Hours (Table) 11/17/21 Range/Units 18:47 Sodium 135 L (137-145) mmol/L Carbon Dioxide 20 L (22-30) mmol/L Chest x-ray: report reviewed Thrombosis Risk Factor Assmnt - DVT/VTE Prophylaxis DVT/VTE Prophylaxis: Pharmacologic Prophylaxis ordered - Choose All That Apply Each Factor Represents 1 point: Abnormal pulmonary function (COPD), Obesity (BMI >25) Each Risk Factor Represents 3 Points: Age 75 years or older Thrombosis Risk Factor Assessment Total Risk Factor Score: 5 Thrombosis Risk Factor Assessment Level: High Risk Assessment and Plan (1) COPD with acute exacerbation Current Visit: Yes Status: Acute Code(s): J44.1 - CHRONIC OBSTRUCTIVE PULMONARY DISEASE W (ACUTE) EXACERBATION SNOMED Code(s): 651436591 (2) Atrial fibrillation Current Visit: No Status: Acute Code(s): I48.91 - UNSPECIFIED ATRIAL FIBRILLATION SNOMED Code(s): 32675782 (3) 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 He'll continue gabapentin for his chronic low back pain, Dr. Dai in for his prostate disorder, Symbicort, DuoNeb, prednisolone, azithromycin for his COPD exacerbation. Repeat labs in a.m. Reevaluated in the next 24 hours.
[2021-11-18 13:20] LABS: African American GFR (CKD) >90 (>60 ml/min/1.73 sqM); Anion Gap 12 mmol/L; Blood Urea Nitrogen 19 mg/dL (9-20); Carbon Dioxide 21 mmol/L (22-30); Chloride 101 mmol/L (98-107); Glucose 176 mg/dL (74-99); Non-African American GFR(CKD) 88 (>60 ml/min/1.73 sqM); Potassium 4.4 mmol/L (3.5-5.1); Sodium 134 mmol/L (137-145)
[2021-11-18 13:22] LABS: Basophils % (A) 0 %; Eosinophils % (A) 0 %; HCT 43.9 % (39.0-53.0); HGB 14.4 gm/dL (13.0-17.5); Lymphocytes # (A) 0.6 k/uL (1.0-4.8); Lymphocytes % (A) 8 %; MCH 31.9 pg (25.0-35.0); MCHC 32.7 g/dL (31.0-37.0); MCV 97.6 fL (80.0-100.0); Mean Platelet Volume 7.8; Monocytes # (A) 0.3 k/uL (0-1.0); Monocytes % (A) 4 %; Neutrophils # (A) 6.7 k/uL (1.3-7.7); Neutrophils % (A) 86 %; Platelet Count 207 k/uL (150-450); RDW 13.1 % (11.5-15.5); WBC 7.7 k/uL (3.8-10.6)
[2021-11-18] MEDS ORDERED: NON FORMULARY DRUG (Fluticasone Propion/Salmeterol [Advair 250-50 Diskus] 1 EACH Each) INHALATION SCH (20:00)
[2021-11-18] MEDS: SYMBICORT 160-4.5 MCG INHALER INHALATION SCH (20:28)
[2021-11-18] MEDS ORDERED: AZITHROMYCIN 500 MG TAB PO SCH (21:00)
[2021-11-19] MEDS: methylPREDNISolone SOD SUCCI 125 MG/2 ML VIAL IV SCH ×3 (00:33→12:14)
[2021-11-19] MEDS: IPRATROPIUM-ALBUTEROL 3 ML NEB INHALATION PRN (04:23)
[2021-11-19 08:16] VITALS: RESP 18
[2021-11-19] MEDS: DOXAZOSIN 4 MG TAB PO SCH (08:31)
[2021-11-19] MEDS: GABAPENTIN 100 MG CAP PO SCH (08:31)
[2021-11-19] MEDS: TAMSULOSIN 0.4 MG CAP.ER.24H PO SCH (08:31)
[2021-11-19] MEDS: APIXABAN 5 MG TAB PO SCH (08:31)
[2021-11-19] MEDS: METOPROLOL TARTRATE 50 MG TAB PO SCH (08:31)
[2021-11-19] MEDS: IPRATROPIUM-ALBUTEROL 3 ML NEB INHALATION SCH ×2 (08:52→12:04)
[2021-11-19] MEDS: SYMBICORT 160-4.5 MCG INHALER INHALATION SCH (08:52)
[2021-11-19] MEDS ORDERED: ERGOCALCIFEROL 1,250 MCG (50,000 IU) CAPSULE PO SCH (09:00)
[2021-11-19] MEDS ORDERED: NON FORMULARY DRUG (Alendronate Sodium [Fosamax] 70 MG Tablet) PO SCH (09:00)
[2021-11-19 09:21] LABS: Basophils # (A) 0.01 X 10*3/uL (0.00-0.10); Basophils % (A) 0.1 %; Eosinophils # (A) 0 X 10*3/uL (0.04-0.35); Eosinophils % (A) 0 %; HCT 40.7 % (39.6-50.0); HGB 13.9 g/dL (13.0-17.0); Immature Grans, Automated 0.6 %; Lymphocytes # (A) 0.71 X 10*3/uL (0.90-5.00); Lymphocytes % (A) 5.4 %; MCH 32.2 pg (27.0-32.0); MCHC 34.2 g/dL (32.0-37.0); MCV 94.2 fL (80.0-97.0); Mean Platelet Volume 10.4 fL (9.5-12.2); Monocytes # (A) 0.78 X 10*3/uL (0.20-1.00); NRBC Per 100 WBC 0 /100 WBCS (0.0-0.0); Neutrophils # (A) 11.45 X 10*3/uL (1.80-7.70); Neutrophils % (A) 87.9 %; Platelet Count 206 X 10*3/uL (140-440); RBC 4.32 X 10*6/uL (4.40-5.60); RDW 13.1 % (11.5-14.5); WBC 13.03 X 10*3/uL (4.50-10.00)
[2021-11-19 09:43] LABS: African American GFR (CKD) 87.7 (60.0-200.0); Anion Gap 13.1 mmol/L (10.00-18.00); BUN/Creat Ratio 27.89 Ratio (12.00-20.00); Carbon Dioxide 20.8 mmol/L (20.0-27.5); Magnesium 2.3 mg/dL (1.5-2.4); Non-African American GFR(CKD) 75.7 (60.0-200.0); Potassium 4.6 mmol/L (3.5-5.5)
[2021-11-19 12:45] VITALS: BP 135/78; PULSE 82; TEMP 97.9
--- NOTE | 2021-11-19 13:45 | P.DS ---
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 He will not quit smoking. He is usually in the hospital several times a year for acute exacerbation. He presented with a 2 to three-day history of increasing shortness of breath. He reports symptoms Emergency room tonight. Currently this morning he is feeling better. He has no chest pains pressures nausea vomiting or constipation. Shortness of breath slightly improved. Vital signs show borderline tachycardia. Oxygens on standby no laboratory studies pending for this a.m. Chest x-ray showed moderate pulmonary interstitial fibrosis. This is a chronic finding for him. November 19, 2021: patient received azithromycin and IV steroids. He feels much better and would like to be discharged home. We discussed the medication's and his symptoms. He currently denies any chest pains pressures, or shorts of breath. He will start an oral steroids and finish azithromycin. Plan - Discharge Summary New Discharge Prescriptions: New Ipratropium-Albuterol Nebulize [Duoneb 0.5 mg-3 mg/3 ml Soln] 3 ml INHALATION RT-QID PRN 30 Days #100 units PRN Reason: Shortness Of Breath predniSONE 50 mg PO DAILY #5 tablet Azithromycin [Zithromax] 500 mg PO HS #2 tab Continue Tamsulosin HCl [Flomax] 0.4 mg PO BID Apixaban [Eliquis] 5 mg PO BID Metoprolol Tartrate [Lopressor] 50 mg PO BID Ergocalciferol [Vitamin D2 (DRISDOL)] 1,250 mcg PO GROVES Alendronate Sodium [Fosamax] 70 mg PO GROVES Budesonide/Formoterol Fumarate [Symbicort 160-4.5 Mcg Inhaler] 2 puff INHALATION RT-BID Fluticasone Propion/Salmeterol [Advair 250-50 Diskus] 1 puff INHALATION RT- BID Albuterol Nebulized [Ventolin Nebulized] 2.5 mg INHALATION RT-Q4H PRN PRN Reason: Shortness Of Breath Ipratropium Nebulized [Atrovent Nebulized 0.2 MG/ML] 0.5 mg INHALATION RT-Q4H PRN PRN Reason: Shortness Of Breath Gabapentin [Neurontin] 100 mg PO BID Albuterol Inhaler [Ventolin Hfa Inhaler] 2 puff INHALATION RT-Q6H PRN PRN Reason: Shortness Of Breath Doxazosin [Cardura] 4 mg PO DAILY Discharge Medication List Tamsulosin HCl [Flomax] 0.4 mg PO BID 03/24/18 [History] Apixaban [Eliquis] 5 mg PO BID 09/14/18 [History] Metoprolol Tartrate [Lopressor] 50 mg PO BID 02/04/19 [History] Ergocalciferol [Vitamin D2 (DRISDOL)] 1,250 mcg PO GROVES 05/05/19 [History] Alendronate Sodium [Fosamax] 70 mg PO GROVES 08/21/19 [History] Budesonide/Formoterol Fumarate [Symbicort 160-4.5 Mcg Inhaler] 2 puff INHALATION RT-BID 05/21/20 [History] Fluticasone Propion/Salmeterol [Advair 250-50 Diskus] 1 puff INHALATION RT-BID 04/07/21 [History] Gabapentin [Neurontin] 100 mg PO BID 04/07/21 [History] Albuterol Nebulized [Ventolin Nebulized] 2.5 mg INHALATION RT-Q4H PRN 09/20/21 [History] Albuterol Inhaler [Ventolin Hfa Inhaler] 2 puff INHALATION RT-Q6H PRN 11/17/21 [History] Doxazosin [Cardura] 4 mg PO DAILY 11/17/21 [History] Ipratropium Nebulized [Atrovent Nebulized 0.2 MG/ML] 0.5 mg INHALATION RT-Q4H PRN 11/17/21 [History] Azithromycin [Zithromax] 500 mg PO HS #2 tab 11/19/21 [Rx] Ipratropium-Albuterol Nebulize [Duoneb 0.5 mg-3 mg/3 ml Soln] 3 ml INHALATION RT-QID PRN 30 Days #100 units 11/19/21 [Rx] predniSONE 50 mg PO DAILY #5 tablet 11/19/21 [Rx] Follow up Appointment(s)/Referral(s): Fernando Lambert Jr, DO [Primary Care Provider] - 1-2 days Discharge Disposition: HOME SELF-CARE
== END 2021-11-19 15:05 | disposition home or self-care (01) ==
LOC: EC 18:01 → 6NMEDSUR 20:07
PROVIDERS: ADMIT Family Medicine; ATTEND Family Medicine
DX: J44.1 Chronic obstructive pulmonary disease with (acute) exacerbation (principal); I48.0 Paroxysmal atrial fibrillation; N40.0 Benign prostatic hyperplasia without lower urinary tract symptoms; K21.9 Gastro-esophageal reflux disease without esophagitis; I48.92 Unspecified atrial flutter; G89.29 Other chronic pain; M54.50 Low back pain, unspecified; K59.00 Constipation, unspecified; F17.210 Nicotine dependence, cigarettes, uncomplicated; E66.9 Obesity, unspecified; Z68.26 Body mass index [BMI] 26.0-26.9, adult; Z20.822 Contact with and (suspected) exposure to COVID-19; Z79.01 Long term (current) use of anticoagulants; Z79.899 Other long term (current) drug therapy; Z79.83 Long term (current) use of bisphosphonates; Z79.51 Long term (current) use of inhaled steroids; Z91.041 Radiographic dye allergy status; Z91.040 Latex allergy status; Z86.16 Personal history of COVID-19; Z87.01 Personal history of pneumonia (recurrent); Z98.42 Cataract extraction status, left eye; Z98.41 Cataract extraction status, right eye; Z96.1 Presence of intraocular lens; Z98.890 Other specified postprocedural states; Z82.49 Family history of ischemic heart disease and other diseases of the circulatory system; Z82.0 Family history of epilepsy and other diseases of the nervous system
CPT/HCPCS: 96376 ×2; 96365; 96375; 99285; 36415; 94640 ×6; 94760; 93005; 80053; 80048 ×2; 83605; 83735 ×2; 84484; 85025 ×3; 85610; 85730; 87040; 87502; 87635; 71046; G0378 ×3; J2930 ×3; J0456

== ENCOUNTER 2021-12-10 16:44 | Emergency (ER) | payer MEDICARE ==
[2021-12-10 16:52] VITALS: BP 127/72; PULSE 92; RESP 16; TEMP 98
--- NOTE | 2021-12-10 17:04 | ED ---
Male Urogenital HPI - General Chief complaint: Urogenital Stated complaint: Urogenital Time Seen by Provider: 12/10/21 16:54 Source: patient, family, RN notes reviewed, old records reviewed Mode of arrival: wheelchair Limitations: no limitations - History of Present Illness Initial comments: 76-year-old male with a history of multiple medical issues including BPH who just had a catheter removed from his urinary bladder a couple days ago who states he has not passed much urine last couple days he has dribbled a little bit. He does complain of some lower abdominal pressure no fevers chills nausea vomiting sweats or other symptoms. No other current complaints or modifying factors MD Complaint: other - Related Data Home Medications Medication Instructions Recorded Confirmed Tamsulosin HCl [Flomax] 0.4 mg PO BID 03/24/18 11/17/21 Apixaban [Eliquis] 5 mg PO BID 09/14/18 11/17/21 Metoprolol Tartrate [Lopressor] 50 mg PO BID 02/04/19 11/17/21 Ergocalciferol [Vitamin D2 1,250 mcg PO GROVES 05/05/19 11/17/21 (DRISDOL)] Alendronate Sodium [Fosamax] 70 mg PO GROVES 08/21/19 11/17/21 Budesonide/Formoterol Fumarate 2 puff INHALATION RT-BID 05/21/20 11/17/21 [Symbicort 160-4.5 Mcg Inhaler] Fluticasone Propion/Salmeterol 1 puff INHALATION RT-BID 04/07/21 11/17/21 [Advair 250-50 Diskus] Gabapentin [Neurontin] 100 mg PO BID 04/07/21 11/17/21 Albuterol Nebulized [Ventolin 2.5 mg INHALATION RT-Q4H PRN 09/20/21 11/17/21 Nebulized] Albuterol Inhaler [Ventolin Hfa 2 puff INHALATION RT-Q6H PRN 11/17/21 11/17/21 Inhaler] Doxazosin [Cardura] 4 mg PO DAILY 11/17/21 11/17/21 Ipratropium Nebulized [Atrovent 0.5 mg INHALATION RT-Q4H PRN 11/17/21 11/17/21 Nebulized 0.2 MG/ML] Previous Rx's Medication Instructions Recorded Azithromycin [Zithromax] 500 mg PO HS #2 tab 11/19/21 Ipratropium-Albuterol Nebulize 3 ml INHALATION RT-QID PRN 30 Days 11/19/21 [Duoneb 0.5 mg-3 mg/3 ml Soln] #100 units predniSONE 50 mg PO DAILY #5 tablet 11/19/21 Allergies Allergy/AdvReac Type Severity Reaction Status Date / Time Iodinated Contrast Media Allergy Rash/Hives Verified 12/10/21 16:52 [Iodinated Contrast- Oral and IV Dye] latex Allergy Rash/Hives Verified 12/10/21 16:52 Review of Systems ROS Statement: Those systems with pertinent positive or pertinent negative responses have been documented in the HPI. ROS Other: All systems not noted in ROS Statement are negative. Past Medical History Past Medical History: Atrial Fibrillation, Atrial Flutter, COPD, GERD/Reflux, Pneumonia, Prostate Disorder Additional Past Medical History / Comment(s): Paroxysmal Afib, bronchitis, BPH, constipation, vertigo, chronic low back pain/DDD. covid 06/22 History of Any Multi-Drug Resistant Organisms: None Reported Past Surgical History: Back Surgery Additional Past Surgical History / Comment(s): Bilateral cataract removals-lens implants, colonoscopy, multiple kyphoplasties. Past Anesthesia/Blood Transfusion Reactions: No Reported Reaction Additional Past Anesthesia/Blood Transfusion Reaction / Comment(s): Has never received any blood transfusions. Past Psychological History: No Psychological Hx Reported Smoking Status: Current every day smoker Past Alcohol Use History: None Reported Past Drug Use History: None Reported - Past Family History Mother Family Medical History: AFIB, Dementia Father Family Medical History: Myocardial Infarction ([place]) Additional Family Medical History / Comment(s): in his 70's [place] General Exam - General Exam Comments Initial Comments: This is a well-developed molars awake alert oriented 4 male Limitations: no limitations General appearance: alert, in no apparent distress Head exam: Present: atraumatic, normocephalic, normal inspection Eye exam: Present: normal appearance, PERRL, EOMI. Absent: scleral icterus, conjunctival injection, periorbital swelling ENT exam: Present: normal exam, mucous membranes moist Neck exam: Present: normal inspection. Absent: tenderness, meningismus, lymphadenopathy Respiratory exam: Present: normal lung sounds bilaterally. Absent: respiratory distress, wheezes, rales, rhonchi, stridor Cardiovascular Exam: Present: regular rate, normal rhythm, normal heart sounds. Absent: systolic murmur, diastolic murmur, rubs, gallop, clicks GI/Abdominal exam: Present: soft, normal bowel sounds, other (Evidence clinically of a distended urinary bladder). Absent: distended, tenderness, guarding, rebound, rigid Rectal exam: Present: deferred exam: Present: normal inspection Extremities exam: Present: normal inspection, full ROM, normal capillary refill. Absent: tenderness, pedal edema, joint swelling, calf tenderness Back exam: Present: normal inspection Neurological exam: Present: alert, oriented X3, CN II-XII intact Psychiatric exam: Present: normal affect, normal mood Skin exam: Present: warm, dry, intact, normal color. Absent: rash Course Vital Signs 12/10/21 16:48 Temperature 98 F Pulse Rate 92 Respiratory 16 Rate Blood Pressure 127/72 O2 Sat by Pulse 100 Oximetry - Reevaluation(s) Reevaluation #1: 12/10/21 17:34 Patient does have some relief after a catheter was placed. Bebeto 200 mL of dark fausto urine is noted. I discussed with the patient he states he does drink coffee but has decreased his water intake recently. Kidney function will be evaluated. Medical Decision Making - Medical Decision Making I did discuss the findings with patient did get 200+ cc of urine out after the catheter was placed patient be discharged with the catheter in place is a follow-up with his doctor I did also encourage increase oral fluid consumption. Renal function appears to be within normal limits - Lab Data Result diagrams: 12/10/21 17:50 Lab Results 12/10/21 12/10/21 Range/Units 17:50 17:52 Sodium 135 L (137-145) mmol/L Potassium 3.9 (3.5-5.1) mmol/L Chloride 104 (98-107) mmol/L Carbon Dioxide 22 (22-30) mmol/L Anion Gap 9 mmol/L BUN 21 H (9-20) mg/dL Creatinine 0.87 (0.66-1.25) mg/dL Est GFR (CKD-EPI)AfAm >90 (>60 ml/min/1.73 sqM) Est GFR (CKD-EPI)NonAf 84 (>60 ml/min/1.73 sqM) Glucose 92 (74-99) mg/dL Calcium 8.9 (8.4-10.2) mg/dL Total Bilirubin 0.8 (0.2-1.3) mg/dL AST 18 (17-59) U/L ALT 17 (4-49) U/L Alkaline Phosphatase 60 (38-126) U/L Total Protein 5.7 L (6.3-8.2) g/dL Albumin 3.6 (3.5-5.0) g/dL Urine Color Light Yellow Urine Appearance Clear (Clear) Urine pH 5.5 (5.0-8.0) Ur Specific [place] 1.015 (1.001-1.035) Urine Protein Negative (Negative) Urine Glucose (UA) Negative (Negative) Urine Ketones Negative (Negative) Urine Blood Negative (Negative) Urine Nitrite Negative (Negative) Urine Bilirubin Negative (Negative) Urine Urobilinogen <2.0 (<2.0) mg/dL Ur Leukocyte Esterase Negative (Negative) Disposition Clinical Impression: Acute urinary retention, Dehydration Disposition: HOME SELF-CARE Condition: Good Instructions (If sedation given, give patient instructions): Urinary Retention in Men (ED), Dehydration (ED) Is patient prescribed a controlled substance at d/c from ED?: No Referrals: Fernando Lambert Jr, DO [Primary Care Provider] - 1-2 days Decision Date: 12/10/21 Decision Time: 18:29
[2021-12-10 18:02] LABS: Appearance,Urine Clear (Clear); Bilirubin,Urine Negative (Negative); Blood,Urine Negative (Negative); Color,Urine Light Yellow; Glucose,Urine (UA) Negative (Negative); Ketones,Urine Negative (Negative); Leukocyte Esterase,Urine Negative (Negative); Nitrite,Urine Negative (Negative); PH, Urine 5.5 (5.0-8.0); Protein,Urine Negative (Negative); Specific Gravity,Urine 1.015 (1.001-1.035); Urobilinogen,Urine <2.0 mg/dL (<2.0)
[2021-12-10 18:17] LABS: ALT 17 U/L (4-49); AST 18 U/L (17-59); African American GFR (CKD) >90 (>60 ml/min/1.73 sqM); Albumin 3.6 g/dL (3.5-5.0); Alkaline Phosphatase 60 U/L (38-126); Anion Gap 9 mmol/L; Blood Urea Nitrogen 21 mg/dL (9-20); Calcium 8.9 mg/dL (8.4-10.2); Carbon Dioxide 22 mmol/L (22-30); Chloride 104 mmol/L (98-107); Glucose 92 mg/dL (74-99); Non-African American GFR(CKD) 84 (>60 ml/min/1.73 sqM); Potassium 3.9 mmol/L (3.5-5.1); Sodium 135 mmol/L (137-145); Total Bilirubin 0.8 mg/dL (0.2-1.3); Total Protein 5.7 g/dL (6.3-8.2)
== END 2021-12-10 19:09 | disposition home or self-care (01) ==
LOC: EC 16:44
DX: R33.9 Retention of urine, unspecified (principal); E86.0 Dehydration; I48.91 Unspecified atrial fibrillation; I48.92 Unspecified atrial flutter; J44.9 Chronic obstructive pulmonary disease, unspecified; K21.9 Gastro-esophageal reflux disease without esophagitis; F17.200 Nicotine dependence, unspecified, uncomplicated; Z86.16 Personal history of COVID-19; Z91.040 Latex allergy status; Z91.041 Radiographic dye allergy status; Z79.51 Long term (current) use of inhaled steroids; Z79.01 Long term (current) use of anticoagulants
CPT/HCPCS: 36415; 51702; 51798; 80053; 81003; 99284

== ENCOUNTER 2021-12-13 21:05 | Emergency (ER) | payer MEDICARE ==
[2021-12-13 21:59] LABS: Mucus,Urine Rare /hpf; RBC,Urine 41 /hpf (0-5); WBC,Urine 6 /hpf (0-5)
[2021-12-13 22:00] LABS: Appearance,Urine Clear (Clear); Color,Urine Orange
--- NOTE | 2021-12-14 03:23 | ED ---
Recheck HPI - General Chief Complaint: Urogenital Stated Complaint: cathetor issues/blood Time Seen by Provider: 12/14/21 03:22 Source: patient, RN notes reviewed, old records reviewed Mode of arrival: wheelchair Limitations: no limitations - History of Present Illness Initial Comments: This is a 76-year-old male to the ER for evaluation presents today for evaluation regards to discolored urine. Patient has a Munoz indwelling Munoz for urinary retention states his urine has been ordered. Patient started taking Pyridium for burning. He then notices urine started turn orange she was concern for blood and came DF for evaluation no current abdominal pain or other complaint MD Complaint: other (Discolored urine) -: hour(s) Returns Today for: other (Discolored urination) Associated Symptoms: none Treatments Prior to Arrival: urinary catheter in place, other (0) - Related Data Home Medications Medication Instructions Recorded Confirmed Tamsulosin HCl [Flomax] 0.4 mg PO BID 03/24/18 11/17/21 Apixaban [Eliquis] 5 mg PO BID 09/14/18 11/17/21 Metoprolol Tartrate [Lopressor] 50 mg PO BID 02/04/19 11/17/21 Ergocalciferol [Vitamin D2 1,250 mcg PO GROVES 05/05/19 11/17/21 (DRISDOL)] Alendronate Sodium [Fosamax] 70 mg PO GROVES 08/21/19 11/17/21 Budesonide/Formoterol Fumarate 2 puff INHALATION RT-BID 05/21/20 11/17/21 [Symbicort 160-4.5 Mcg Inhaler] Fluticasone Propion/Salmeterol 1 puff INHALATION RT-BID 04/07/21 11/17/21 [Advair 250-50 Diskus] Gabapentin [Neurontin] 100 mg PO BID 04/07/21 11/17/21 Albuterol Nebulized [Ventolin 2.5 mg INHALATION RT-Q4H PRN 09/20/21 11/17/21 Nebulized] Albuterol Inhaler [Ventolin Hfa 2 puff INHALATION RT-Q6H PRN 11/17/21 11/17/21 Inhaler] Doxazosin [Cardura] 4 mg PO DAILY 11/17/21 11/17/21 Ipratropium Nebulized [Atrovent 0.5 mg INHALATION RT-Q4H PRN 11/17/21 11/17/21 Nebulized 0.2 MG/ML] Previous Rx's Medication Instructions Recorded Azithromycin [Zithromax] 500 mg PO HS #2 tab 11/19/21 Ipratropium-Albuterol Nebulize 3 ml INHALATION RT-QID PRN 30 Days 11/19/21 [Duoneb 0.5 mg-3 mg/3 ml Soln] #100 units predniSONE 50 mg PO DAILY #5 tablet 11/19/21 Allergies Allergy/AdvReac Type Severity Reaction Status Date / Time Iodinated Contrast Media Allergy Rash/Hives Verified 12/10/21 16:52 [Iodinated Contrast- Oral and IV Dye] latex Allergy Rash/Hives Verified 12/10/21 16:52 Review of Systems ROS Statement: Those systems with pertinent positive or pertinent negative responses have been documented in the HPI. ROS Other: All systems not noted in ROS Statement are negative. Past Medical History Past Medical History: Atrial Fibrillation, Atrial Flutter, COPD, GERD/Reflux, Pneumonia, Prostate Disorder Additional Past Medical History / Comment(s): Paroxysmal Afib, bronchitis, BPH, constipation, vertigo, chronic low back pain/DDD. covid 06/22 History of Any Multi-Drug Resistant Organisms: None Reported Past Surgical History: Back Surgery Additional Past Surgical History / Comment(s): Bilateral cataract removals-lens implants, colonoscopy, multiple kyphoplasties. Past Anesthesia/Blood Transfusion Reactions: No Reported Reaction Additional Past Anesthesia/Blood Transfusion Reaction / Comment(s): Has never received any blood transfusions. Past Psychological History: No Psychological Hx Reported Smoking Status: Current every day smoker Past Alcohol Use History: None Reported Past Drug Use History: None Reported - Past Family History Mother Family Medical History: AFIB, Dementia Father Family Medical History: Myocardial Infarction ([place]) Additional Family Medical History / Comment(s): in his 70's [place] General Exam Limitations: no limitations General appearance: alert, in no apparent distress Head exam: Present: atraumatic, normocephalic, normal inspection Eye exam: Present: normal appearance, PERRL, EOMI. Absent: scleral icterus, conjunctival injection, periorbital swelling ENT exam: Present: normal exam, mucous membranes moist Neck exam: Present: normal inspection. Absent: tenderness, meningismus, lymphadenopathy Respiratory exam: Present: normal lung sounds bilaterally. Absent: respiratory distress, wheezes, rales, rhonchi, stridor Cardiovascular Exam: Present: regular rate, normal rhythm, normal heart sounds. Absent: systolic murmur, diastolic murmur, rubs, gallop, clicks GI/Abdominal exam: Present: soft, normal bowel sounds. Absent: distended, tenderness, guarding, rebound, rigid Extremities exam: Present: normal inspection, full ROM, normal capillary refill. Absent: tenderness, pedal edema, joint swelling, calf tenderness Back exam: Present: normal inspection Neurological exam: Present: alert, oriented X3, CN II-XII intact Psychiatric exam: Present: normal affect, normal mood Skin exam: Present: warm, dry, intact, normal color. Absent: rash Course Vital Signs 12/13/21 21:27 Temperature 98.3 F Pulse Rate 75 Respiratory 16 Rate Blood Pressure 134/73 O2 Sat by Pulse 95 Oximetry - Reevaluation(s) Reevaluation #1: 12/14/21 03:57 Medical record is reviewed Reevaluation #2: 12/14/21 03:57 Patient informed results and questions answered Medical Decision Making - Medical Decision Making 76 male DF for evaluation patient presents today for evaluation regards to discolored urine, concern for blood in the ER. Patient has orange urine and has been taking Pyridium. Patient is having a medication reaction currently Munoz is working any can be discharged home - Lab Data Lab Results 12/13/21 Range/Units 21:32 Urine Color Coffee Urine Appearance Clear (Clear) Urine RBC 41 H (0-5) /hpf Urine WBC 6 H (0-5) /hpf Urine Mucus Rare H (None) /hpf Disposition Clinical Impression: Medication reaction, Acute urinary retention, Indwelling Munoz catheter present Disposition: HOME SELF-CARE Condition: Good Instructions (If sedation given, give patient instructions): Munoz Catheter Placement and Care (ED), Phenazopyridine (By mouth) Is patient prescribed a controlled substance at d/c from ED?: No Referrals: Fernando Lambert Jr, DO [Primary Care Provider] - 1-2 days Time of Disposition: 04:00
[2021-12-14 04:07] VITALS: BP 117/86; PULSE 107; RESP 18; TEMP 98
== END 2021-12-14 04:11 | disposition home or self-care (01) ==
LOC: EC 21:05 → SUPCPDRO 21:05 → EC 12-14 04:11
DX: T83.091A Other mechanical complication of indwelling urethral catheter, initial encounter (principal); N40.1 Benign prostatic hyperplasia with lower urinary tract symptoms; J44.9 Chronic obstructive pulmonary disease, unspecified; K21.9 Gastro-esophageal reflux disease without esophagitis; Z79.899 Other long term (current) drug therapy; F17.200 Nicotine dependence, unspecified, uncomplicated; Z86.72 Personal history of thrombophlebitis; Z91.041 Radiographic dye allergy status; Z91.040 Latex allergy status

== ENCOUNTER 2021-12-16 21:19 | Observation (INO) | payer MEDICARE ==
--- NOTE | 2021-12-16 23:54 | XR ---
EXAMINATION TYPE: XR chest 2V DATE OF EXAM: 12/16/2021 COMPARISON: 11/17/2021 HISTORY: Short of breath TECHNIQUE: 2 views FINDINGS: There is no heart failure not confluent pneumonic infiltrate. There is coarsening of inters titial markings. There is multilevel thoracic and lumbar vertebroplasty. No pleural effusion. IMPRESSION: Mild pulmonary fibrotic changes. No active cardiopulmonary disease. No change.
[2021-12-17] MEDS ORDERED: ALBUTEROL NEBULIZED 2.5 MG/3 ML INHALATION STA (01:04)
[2021-12-17] MEDS ORDERED: IPRATROPIUM-ALBUTEROL 3 ML NEB INHALATION STA (01:04)
[2021-12-17] MEDS ORDERED: predniSONE 20 MG TAB PO STA (01:05)
[2021-12-17 01:54] LABS: ALT 15 U/L (4-49); AST 19 U/L (17-59); African American GFR (CKD) >90 (>60 ml/min/1.73 sqM); Albumin 3.7 g/dL (3.5-5.0); Alkaline Phosphatase 67 U/L (38-126); Anion Gap 10 mmol/L; Blood Urea Nitrogen 24 mg/dL (9-20); Calcium 8.7 mg/dL (8.4-10.2); Carbon Dioxide 23 mmol/L (22-30); Chloride 105 mmol/L (98-107); Glucose 91 mg/dL (74-99); Non-African American GFR(CKD) 84 (>60 ml/min/1.73 sqM); Potassium 4.4 mmol/L (3.5-5.1); Sodium 138 mmol/L (137-145); Total Bilirubin 0.8 mg/dL (0.2-1.3)
[2021-12-17] MEDS ORDERED: PHENAZOPYRIDINE 100 MG TAB PO STA (02:04)
[2021-12-17 02:10] LABS: Basophils % (A) 1 %; Eosinophils # (A) 0.3 k/uL (0-0.7); Eosinophils % (A) 4 %; HCT 38.2 % (39.0-53.0); HGB 13.4 gm/dL (13.0-17.5); Lymphocytes # (A) 1.2 k/uL (1.0-4.8); Lymphocytes % (A) 16 %; MCH 33.7 pg (25.0-35.0); MCV 96.2 fL (80.0-100.0); Mean Platelet Volume 9.2; Monocytes # (A) 0.5 k/uL (0-1.0); Monocytes % (A) 7 %; Neutrophils # (A) 5.5 k/uL (1.3-7.7); Neutrophils % (A) 71 %; Platelet Count 197 k/uL (150-450); RBC 3.97 m/uL (4.30-5.90); RDW 12.9 % (11.5-15.5); WBC 7.8 k/uL (3.8-10.6)
[2021-12-17] MEDS ORDERED: NALOXONE 0.4 MG/ML 1 ML VIAL IVP PRN (03:00)
[2021-12-17] MEDS ORDERED: ACETAMINOPHEN TAB 325 MG TAB PO PRN (03:00)
--- NOTE | 2021-12-17 03:07 | ED ---
SOB HPI - General Chief Complaint: Shortness of Breath Stated Complaint: SOB Time Seen by Provider: 12/17/21 00:35 Source: patient Mode of arrival: wheelchair Limitations: no limitations - History of Present Illness Initial Comments: This patient is 76-year-old man with history of underlying COPD who presents here with worsening of his respiratory status. Patient states that he has been feeling more short of breath than usual. He has been having to use his inhaled medicines approximately every 90-120 minutes which is more frequently than usual. He has had cough which is for the most part nonproductive. Did see his physician in the clinic last week and had been given course of azithromycin and steroid. Patient had finished both these medicines and states that his breathing is still not good and if anything is worsening over past day. Has not noted fever or chills. On the review of systems he is having some urethral discomfort. Patient states that he has a catheter in place for relief of urinary retention. No change in the urine output. He had previously been on what he believes his Pyridium for urethral discomfort MD Complaint: shortness of breath, cough Known History Of: COPD Context: recent URI Associated Symptoms: cough Treatments Prior to Arrival: none - Related Data Home Medications Medication Instructions Recorded Confirmed Tamsulosin HCl [Flomax] 0.4 mg PO BID 03/24/18 11/17/21 Apixaban [Eliquis] 5 mg PO BID 09/14/18 11/17/21 Metoprolol Tartrate [Lopressor] 50 mg PO BID 02/04/19 11/17/21 Ergocalciferol [Vitamin D2 1,250 mcg PO GROVES 05/05/19 11/17/21 (DRISDOL)] Alendronate Sodium [Fosamax] 70 mg PO GROVES 08/21/19 11/17/21 Budesonide/Formoterol Fumarate 2 puff INHALATION RT-BID 05/21/20 11/17/21 [Symbicort 160-4.5 Mcg Inhaler] Fluticasone Propion/Salmeterol 1 puff INHALATION RT-BID 04/07/21 11/17/21 [Advair 250-50 Diskus] Gabapentin [Neurontin] 100 mg PO BID 04/07/21 11/17/21 Albuterol Nebulized [Ventolin 2.5 mg INHALATION RT-Q4H PRN 09/20/21 11/17/21 Nebulized] Albuterol Inhaler [Ventolin Hfa 2 puff INHALATION RT-Q6H PRN 11/17/21 11/17/21 Inhaler] Doxazosin [Cardura] 4 mg PO DAILY 11/17/21 11/17/21 Ipratropium Nebulized [Atrovent 0.5 mg INHALATION RT-Q4H PRN 11/17/21 11/17/21 Nebulized 0.2 MG/ML] Previous Rx's Medication Instructions Recorded Azithromycin [Zithromax] 500 mg PO HS #2 tab 11/19/21 Ipratropium-Albuterol Nebulize 3 ml INHALATION RT-QID PRN 30 Days 11/19/21 [Duoneb 0.5 mg-3 mg/3 ml Soln] #100 units predniSONE 50 mg PO DAILY #5 tablet 11/19/21 Allergies Allergy/AdvReac Type Severity Reaction Status Date / Time Iodinated Contrast Media Allergy Rash/Hives Verified 12/10/21 16:52 [Iodinated Contrast- Oral and IV Dye] latex Allergy Rash/Hives Verified 12/10/21 16:52 Review of Systems ROS Statement: Those systems with pertinent positive or pertinent negative responses have been documented in the HPI. ROS Other: All systems not noted in ROS Statement are negative. Constitutional: Denies: fever, chills, weakness Respiratory: Reports: cough, dyspnea, wheezes. Denies: hemoptysis Cardiovascular: Denies: chest pain, edema, syncope Gastrointestinal: Denies: abdominal pain, vomiting, diarrhea Genitourinary: Reports: as per HPI, dysuria. Denies: frequency, hematuria, testicular pain, testicular mass Musculoskeletal: Denies: back pain Skin: Denies: rash Neurological: Denies: headache, weakness Past Medical History Past Medical History: Atrial Fibrillation, Atrial Flutter, COPD, GERD/Reflux, Pneumonia, Prostate Disorder Additional Past Medical History / Comment(s): Paroxysmal Afib, bronchitis, BPH, constipation, vertigo, chronic low back pain/DDD. covid 06/22 History of Any Multi-Drug Resistant Organisms: None Reported Past Surgical History: Back Surgery Additional Past Surgical History / Comment(s): Bilateral cataract removals-lens implants, colonoscopy, multiple kyphoplasties. Past Anesthesia/Blood Transfusion Reactions: No Reported Reaction Additional Past Anesthesia/Blood Transfusion Reaction / Comment(s): Has never received any blood transfusions. Past Psychological History: No Psychological Hx Reported Smoking Status: Current every day smoker Past Alcohol Use History: None Reported Past Drug Use History: None Reported - Past Family History Mother Family Medical History: AFIB, Dementia Father Family Medical History: Myocardial Infarction ([place]) Additional Family Medical History / Comment(s): in his 70's [place] General Exam Limitations: no limitations General appearance: alert, in no apparent distress Head exam: Present: atraumatic, normocephalic Eye exam: Present: normal appearance. Absent: scleral icterus, conjunctival injection Neck exam: Present: normal inspection Respiratory exam: Present: wheezes, prolonged expiratory. Absent: respiratory distress, rales, rhonchi, stridor, accessory muscle use, decreased breath sounds Cardiovascular Exam: Present: regular rate, normal rhythm, normal heart sounds. Absent: systolic murmur, diastolic murmur, rubs, gallop GI/Abdominal exam: Present: soft. Absent: distended, tenderness, guarding, rebound, rigid, mass, pulsatile mass Extremities exam: Present: normal inspection, normal capillary refill. Absent: pedal edema, calf tenderness Back exam: Present: normal inspection. Absent: CVA tenderness (R), CVA tenderness (L) Neurological exam: Present: alert Skin exam: Present: warm, dry, intact, normal color. Absent: rash Course Vital Signs 12/16/21 12/17/21 12/17/21 23:12 01:24 01:39 Temperature 98.1 F Pulse Rate 80 82 83 Respiratory 20 Rate Blood Pressure 125/63 O2 Sat by Pulse 94 L Oximetry Medical Decision Making - Lab Data Result diagrams: 12/17/21 01:15 12/17/21 01:15 Lab Results 12/17/21 12/17/21 12/17/21 Range/Units 01:15 01:15 01:15 WBC 7.8 (3.8-10.6) k/uL RBC 3.97 L (4.30-5.90) m/uL Hgb 13.4 (13.0-17.5) gm/dL Hct 38.2 L (39.0-53.0) % MCV 96.2 (80.0-100.0) fL MCH 33.7 (25.0-35.0) pg MCHC 35.0 (31.0-37.0) g/dL RDW 12.9 (11.5-15.5) % Plt Count 197 (150-450) k/uL MPV 9.2 Neutrophils % 71 % Lymphocytes % 16 % Monocytes % 7 % Eosinophils % 4 % Basophils % 1 % Neutrophils # 5.5 (1.3-7.7) k/uL Lymphocytes # 1.2 (1.0-4.8) k/uL Monocytes # 0.5 (0-1.0) k/uL Eosinophils # 0.3 (0-0.7) k/uL Basophils # 0.0 (0-0.2) k/uL Sodium 138 (137-145) mmol/L Potassium 4.4 (3.5-5.1) mmol/L Chloride 105 (98-107) mmol/L Carbon Dioxide 23 (22-30) mmol/L Anion Gap 10 mmol/L BUN 24 H (9-20) mg/dL Creatinine 0.88 (0.66-1.25) mg/dL Est GFR (CKD-EPI)AfAm >90 (>60 ml/min/1.73 sqM) Est GFR (CKD-EPI)NonAf 84 (>60 ml/min/1.73 sqM) Glucose 91 (74-99) mg/dL Plasma Lactic Acid [place] 0.8 (0.7-2.0) mmol/L Calcium 8.7 (8.4-10.2) mg/dL Total Bilirubin 0.8 (0.2-1.3) mg/dL AST 19 (17-59) U/L ALT 15 (4-49) U/L Alkaline Phosphatase 67 (38-126) U/L Troponin I (0.000-0.034) ng/mL Total Protein 6.0 L (6.3-8.2) g/dL Albumin 3.7 (3.5-5.0) g/dL 12/17/21 Range/Units 01:15 WBC (3.8-10.6) k/uL RBC (4.30-5.90) m/uL Hgb (13.0-17.5) gm/dL Hct (39.0-53.0) % MCV (80.0-100.0) fL MCH (25.0-35.0) pg MCHC (31.0-37.0) g/dL RDW (11.5-15.5) % Plt Count (150-450) k/uL MPV Neutrophils % % Lymphocytes % % Monocytes % % Eosinophils % % Basophils % % Neutrophils # (1.3-7.7) k/uL Lymphocytes # (1.0-4.8) k/uL Monocytes # (0-1.0) k/uL Eosinophils # (0-0.7) k/uL Basophils # (0-0.2) k/uL Sodium (137-145) mmol/L Potassium (3.5-5.1) mmol/L Chloride (98-107) mmol/L Carbon Dioxide (22-30) mmol/L Anion Gap mmol/L BUN (9-20) mg/dL Creatinine (0.66-1.25) mg/dL Est GFR (CKD-EPI)AfAm (>60 ml/min/1.73 sqM) Est GFR (CKD-EPI)NonAf (>60 ml/min/1.73 sqM) Glucose (74-99) mg/dL Plasma Lactic Acid [place] (0.7-2.0) mmol/L Calcium (8.4-10.2) mg/dL Total Bilirubin (0.2-1.3) mg/dL AST (17-59) U/L ALT (4-49) U/L Alkaline Phosphatase (38-126) U/L Troponin I <0.012 (0.000-0.034) ng/mL Total Protein (6.3-8.2) g/dL Albumin (3.5-5.0) g/dL - EKG Data -: EKG Interpreted by Id EKG shows normal: sinus rhythm, axis (Normal), intervals (Normal), QRS complexes (Normal), ST-T waves (Normal) Rate: normal (Rate 79 bpm) Disposition Clinical Impression: COPD with acute exacerbation, Acute urinary retention Disposition: ADMITTED IP TO THIS HOSP Condition: Fair Is patient prescribed a controlled substance at d/c from ED?: No Referrals: Fernando Lambert Jr, DO [Primary Care Provider] - 1-2 days
[2021-12-17] MEDS: methylPREDNISolone SOD SUCCI 125 MG/2 ML VIAL IV SCH ×3 (06:39→17:17)
[2021-12-17] MEDS: IPRATROPIUM-ALBUTEROL 3 ML NEB INHALATION SCH ×4 (08:57→20:25)
--- NOTE | 2021-12-17 11:44 | P.HPIM ---
History of Present Illness H&P Date: 12/17/21 Chief Complaint: sob This is 76-year-old white male with known COPD and tobaccoism. He will not quit smoking. He is usually in the hospital several times a year for acute ex acerbation. He presented with a 1 day history of increasing shortness of breath. He reports that it came on suddenly and the updraft treatments do not seem to be lasting long. He presented emergency room seen and evaluated and admitted for this patient COPD. Recently his last admission he had urinary retention and went home with Munoz catheter. He did not seen urology yet. Today he denies any chest pains or pressures. He shortness of breath with exertion. Denies any nausea or vomiting this time. Oxygen is on standby. Labs are essentially normal. Review of Systems All systems: negative Past Medical History Past Medical History: Atrial Fibrillation, Atrial Flutter, COPD, GERD/Reflux, Pneumonia, Prostate Disorder Additional Past Medical History / Comment(s): Paroxysmal Afib, bronchitis, BPH, constipation, vertigo, chronic low back pain/DDD. covid 06/22 History of Any Multi-Drug Resistant Organisms: None Reported Past Surgical History: Back Surgery Additional Past Surgical History / Comment(s): Bilateral cataract removals-lens implants, colonoscopy, multiple kyphoplasties. Past Anesthesia/Blood Transfusion Reactions: No Reported Reaction Additional Past Anesthesia/Blood Transfusion Reaction / Comment(s): Has never received any blood transfusions. Past Psychological History: No Psychological Hx Reported Additional Psychological History / Comment(s): Pt resides with his son, (Jt) and grandson. They live in a trailer. Pt manages his own medications. He has a nebulizer. His son cooks and drives pt to [employer]. Pt uses a walker/wheelchair. He has a nebulizer. Smoking Status: Current every day smoker Past Alcohol Use History: None Reported Additional Past Alcohol Use History / Comment(s): Pt started smoking age 11(1957) got up to 5 ppd for many years then cut down to 3 ppd, currently smoking 1 ppd. Past Drug Use History: None Reported - Past Family History Mother Family Medical History: AFIB, Dementia Father Family Medical History: Myocardial Infarction ([place]) Additional Family Medical History / Comment(s): in his 70's [place] Medications and Allergies Home Medications Medication Instructions Recorded Confirmed Type Tamsulosin HCl [Flomax] 0.4 mg PO BID 03/24/18 11/17/21 History Apixaban [Eliquis] 5 mg PO BID 09/14/18 11/17/21 History Metoprolol Tartrate [Lopressor] 50 mg PO BID 02/04/19 11/17/21 History Ergocalciferol [Vitamin D2 1,250 mcg PO GROVES 05/05/19 11/17/21 History (DRISDOL)] Alendronate Sodium [Fosamax] 70 mg PO GROVES 08/21/19 11/17/21 History Budesonide/Formoterol Fumarate 2 puff INHALATION RT-BID 05/21/20 11/17/21 History [Symbicort 160-4.5 Mcg Inhaler] Fluticasone Propion/Salmeterol 1 puff INHALATION RT-BID 04/07/21 11/17/21 History [Advair 250-50 Diskus] Gabapentin [Neurontin] 100 mg PO BID 04/07/21 11/17/21 History Albuterol Nebulized [Ventolin 2.5 mg INHALATION RT-Q4H PRN 09/20/21 11/17/21 History Nebulized] Albuterol Inhaler [Ventolin Hfa 2 puff INHALATION RT-Q6H PRN 11/17/21 11/17/21 History Inhaler] Doxazosin [Cardura] 4 mg PO DAILY 11/17/21 11/17/21 History Ipratropium Nebulized [Atrovent 0.5 mg INHALATION RT-Q4H PRN 11/17/21 11/17/21 History Nebulized 0.2 MG/ML] Azithromycin [Zithromax] 500 mg PO HS #2 tab 11/19/21 Rx Ipratropium-Albuterol Nebulize 3 ml INHALATION RT-QID PRN 30 Days 11/19/21 Rx [Duoneb 0.5 mg-3 mg/3 ml Soln] #100 units predniSONE 50 mg PO DAILY #5 tablet 11/19/21 Rx Allergies Allergy/AdvReac Type Severity Reaction Status Date / Time Iodinated Contrast Media Allergy Rash/Hives Verified 12/10/21 16:52 [Iodinated Contrast- Oral and IV Dye] latex Allergy Rash/Hives Verified 12/10/21 16:52 Physical Exam Vitals: Vital Signs Temp Pulse Pulse Resp BP BP Pulse Ox 12/17/21 11:34 80 12/17/21 09:05 78 12/17/21 08:58 78 12/17/21 08:08 97.8 F 87 18 114/57 94 L 12/17/21 06:46 90 18 112/71 96 12/17/21 01:39 83 12/17/21 01:24 82 12/16/21 23:12 98.1 F 80 20 125/63 94 L Intake and Output 12/16/21 12/17/21 12/17/21 22:59 06:59 14:59 Other: Voiding Method Indwelling Catheter Weight 70.307 kg 70.307 kg GENERAL: Thin male and in no acute distress. HEAD: Atraumatic, normocephalic. EYES: Pupils equal round and reactive to light, extraocular movements intact, sclera anicteric, conjunctiva are normal. ENT:nares patent, oropharynx clear without exudates. Moist mucous membranes. NECK: Normal range of motion, supple without lymphadenopathy or JVD, no thyromegaly LUNGS: Breath sounds coarse with bilateral rhonchi and decreased air exchange consistent with his underlying COPD. HEART: Regular rate and rhythm without murmurs, rubs or gallops.S1S2 Normal ABDOMEN: Soft, nontender, normoactive bowel sounds. No guarding, no rebound. No masses appreciated. : There is a Munoz catheter inserted the penis the leg bag noted. No erythema of the penis EXTREMITIES: Normal range of motion, no pitting or edema. No clubbing or cyanosis. NEUROLOGICAL: Cranial nerves II through XII grossly intact. Normal speech, normal gait. PSYCH: Normal mood, normal affect. SKIN: Warm, Dry, normal turgor, no rashes or lesions noted. Results CBC & Chem 7: 12/17/21 01:15 12/17/21 01:15 Labs: Abnormal Lab Results - Last 24 Hours (Table) 12/17/21 12/17/21 Range/Units 01:15 01:15 RBC 3.97 L (4.30-5.90) m/uL Hct 38.2 L (39.0-53.0) % BUN 24 H (9-20) mg/dL Total Protein 6.0 L (6.3-8.2) g/dL Chest x-ray: report reviewed Thrombosis Risk Factor Assmnt - DVT/VTE Prophylaxis DVT/VTE Prophylaxis: Pharmacologic Prophylaxis ordered (Continue Elequis) - Choose All That Apply Each Factor Represents 1 point: Abnormal pulmonary function (COPD), Obesity (BMI >25) Each Risk Factor Represents 3 Points: Age 75 years or older Other congenital or acquired thrombophilia - If yes, enter type in comment: No Thrombosis Risk Factor Assessment Total Risk Factor Score: 5 Thrombosis Risk Factor Assessment Level: High Risk Assessment and Plan (1) Acute hypercapnic respiratory failure Current Visit: No Status: Acute Code(s): J96.02 - ACUTE RESPIRATORY FAILURE WITH HYPERCAPNIA SNOMED Code(s): 769232350 (2) Acute exacerbation of chronic obstructive airways disease Current Visit: No Status: Acute Code(s): J44.1 - CHRONIC OBSTRUCTIVE PULMONARY DISEASE W (ACUTE) EXACERBATION SNOMED Code(s): 379939392 (3) COPD with acute exacerbation Current Visit: Yes Status: Acute Code(s): J44.1 - CHRONIC OBSTRUCTIVE PUL MONARY DISEASE W (ACUTE) EXACERBATION SNOMED Code(s): 829225399 (4) Acute urinary retention Current Visit: Yes Status: Acute Code(s): R33.8 - OTHER RETENTION OF URINE SNOMED Code(s): 970545082 (5) Atrial fibrillation Current Visit: No Status: Acute Code(s): I48.91 - UNSPECIFIED ATRIAL FIBRILLATION SNOMED Code(s): 64026152 (6) BPH (benign prostatic hyperplasia) Current Visit: No Status: Acute Code(s): N40.0 - BENIGN PROSTATIC HYPERPLASIA WITHOUT LOWER URINRY TRACT SYMP SNOMED Code(s): 569287834 (7) Indwelling Munoz catheter present Current Visit: No Status: Acute Code(s): Z97.8 - PRESENCE OF OTHER SPECIFIED DEVICES SNOMED Code(s): 526325190 (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 Continue on IV steroids, updrafts, empiric antibiotic coverage, We'll consult urology regarding his indwelling Munoz catheter these had for several weeks. We'll repeat labs in a.m. He'll be reevaluated in the next 24 hours
--- NOTE | 2021-12-17 11:44 | P.HPIM ---
History of Present Illness H&P Date: 12/17/21 Chief Complaint: sob This is 76-year-old white male with known COPD and tobaccoism. He will not quit smoking. He is usually in the hospital several times a year for acute ex acerbation. He presented with a 1 day history of increasing shortness of breath. He reports that it came on suddenly and the updraft treatments do not seem to be lasting long. He presented emergency room seen and evaluated and admitted for this patient COPD. Recently his last admission he had urinary retention and went home with Munoz catheter. He did not seen urology yet. Today he denies any chest pains or pressures. He shortness of breath with exertion. Denies any nausea or vomiting this time. Oxygen is on standby. Labs are essentially normal. Review of Systems All systems: negative Past Medical History Past Medical History: Atrial Fibrillation, Atrial Flutter, COPD, GERD/Reflux, Pneumonia, Prostate Disorder Additional Past Medical History / Comment(s): Paroxysmal Afib, bronchitis, BPH, constipation, vertigo, chronic low back pain/DDD. covid 06/22 History of Any Multi-Drug Resistant Organisms: None Reported Past Surgical History: Back Surgery Additional Past Surgical History / Comment(s): Bilateral cataract removals-lens implants, colonoscopy, multiple kyphoplasties. Past Anesthesia/Blood Transfusion Reactions: No Reported Reaction Additional Past Anesthesia/Blood Transfusion Reaction / Comment(s): Has never received any blood transfusions. Past Psychological History: No Psychological Hx Reported Additional Psychological History / Comment(s): Pt resides with his son, (Jt) and grandson. They live in a trailer. Pt manages his own medications. He has a nebulizer. His son cooks and drives pt to [employer] Pt uses a walker/wheelchair. He has a nebulizer. Smoking Status: Current every day smoker Past Alcohol Use History: None Reported Additional Past Alcohol Use History / Comment(s): Pt started smoking age 11(1957) got up to 5 ppd for many years then cut down to 3 ppd, currently smoking 1 ppd. Past Drug Use History: None Reported - Past Family History Mother Family Medical History: AFIB, Dementia Father Family Medical History: Myocardial Infarction ([place]) Additional Family Medical History / Comment(s): in his 70's [place] Medications and Allergies Home Medications Medication Instructions Recorded Confirmed Type Tamsulosin HCl [Flomax] 0.4 mg PO BID 03/24/18 11/17/21 History Apixaban [Eliquis] 5 mg PO BID 09/14/18 11/17/21 History Metoprolol Tartrate [Lopressor] 50 mg PO BID 02/04/19 11/17/21 History Ergocalciferol [Vitamin D2 1,250 mcg PO GROVES 05/05/19 11/17/21 History (DRISDOL)] Alendronate Sodium [Fosamax] 70 mg PO GROVES 08/21/19 11/17/21 History Budesonide/Formoterol Fumarate 2 puff INHALATION RT-BID 05/21/20 11/17/21 History [Symbicort 160-4.5 Mcg Inhaler] Fluticasone Propion/Salmeterol 1 puff INHALATION RT-BID 04/07/21 11/17/21 History [Advair 250-50 Diskus] Gabapentin [Neurontin] 100 mg PO BID 04/07/21 11/17/21 History Albuterol Nebulized [Ventolin 2.5 mg INHALATION RT-Q4H PRN 09/20/21 11/17/21 History Nebulized] Albuterol Inhaler [Ventolin Hfa 2 puff INHALATION RT-Q6H PRN 11/17/21 11/17/21 History Inhaler] Doxazosin [Cardura] 4 mg PO DAILY 11/17/21 11/17/21 History Ipratropium Nebulized [Atrovent 0.5 mg INHALATION RT-Q4H PRN 11/17/21 11/17/21 History Nebulized 0.2 MG/ML] Azithromycin [Zithromax] 500 mg PO HS #2 tab 11/19/21 Rx Ipratropium-Albuterol Nebulize 3 ml INHALATION RT-QID PRN 30 Days 11/19/21 Rx [Duoneb 0.5 mg-3 mg/3 ml Soln] #100 units predniSONE 50 mg PO DAILY #5 tablet 11/19/21 Rx Allergies Allergy/AdvReac Type Severity Reaction Status Date / Time Iodinated Contrast Media Allergy Rash/Hives Verified 12/10/21 16:52 [Iodinated Contrast- Oral and IV Dye] latex Allergy Rash/Hives Verified 12/10/21 16:52 Physical Exam Vitals: Vital Signs Temp Pulse Pulse Resp BP BP Pulse Ox 12/17/21 11:34 80 12/17/21 09:05 78 12/17/21 08:58 78 12/17/21 08:08 97.8 F 87 18 114/57 94 L 12/17/21 06:46 90 18 112/71 96 12/17/21 01:39 83 12/17/21 01:24 82 12/16/21 23:12 98.1 F 80 20 125/63 94 L Intake and Output 12/16/21 12/17/21 12/17/21 22:59 06:59 14:59 Other: Voiding Method Indwelling Catheter Weight 70.307 kg 70.307 kg GENERAL: Thin male and in no acute distress. HEAD: Atraumatic, normocephalic. EYES: Pupils equal round and reactive to light, extraocular movements intact, sclera anicteric, conjunctiva are normal. ENT:nares patent, oropharynx clear without exudates. Moist mucous membranes. NECK: Normal range of motion, supple without lymphadenopathy or JVD, no thyromegaly LUNGS: Breath sounds coarse with bilateral rhonchi and decreased air exchange consistent with his underlying COPD. HEART: Regular rate and rhythm without murmurs, rubs or gallops.S1S2 Normal ABDOMEN: Soft, nontender, normoactive bowel sounds. No guarding, no rebound. No masses appreciated. : There is a Munoz catheter inserted the penis the leg bag noted. No erythema of the penis EXTREMITIES: Normal range of motion, no pitting or edema. No clubbing or cyanosis. NEUROLOGICAL: Cranial nerves II through XII grossly intact. Normal speech, normal gait. PSYCH: Normal mood, normal affect. SKIN: Warm, Dry, normal turgor, no rashes or lesions noted. Results CBC & Chem 7: 12/17/21 01:15 12/17/21 01:15 Labs: Abnormal Lab Results - Last 24 Hours (Table) 12/17/21 12/17/21 Range/Units 01:15 01:15 RBC 3.97 L (4.30-5.90) m/uL Hct 38.2 L (39.0-53.0) % BUN 24 H (9-20) mg/dL Total Protein 6.0 L (6.3-8.2) g/dL Chest x-ray: report reviewed Thrombosis Risk Factor Assmnt - DVT/VTE Prophylaxis DVT/VTE Prophylaxis: Pharmacologic Prophylaxis ordered (Continue Elequis) - Choose All That Apply Each Factor Represents 1 point: Abnormal pulmonary function (COPD), Obesity (BMI >25) Each Risk Factor Represents 3 Points: Age 75 years or older Other congenital or acquired thrombophilia - If yes, enter type in comment: No Thrombosis Risk Factor Assessment Total Risk Factor Score: 5 Thrombosis Risk Factor Assessment Level: High Risk Assessment and Plan (1) Acute hypercapnic respiratory failure Current Visit: No Status: Acute Code(s): J96.02 - ACUTE RESPIRATORY FAILURE WITH HYPERCAPNIA SNOMED Code(s): 886746241 (2) Acute exacerbation of chronic obstructive airways disease Current Visit: No Status: Acute Code(s): J44.1 - CHRONIC OBSTRUCTIVE PULMONARY DISEASE W (ACUTE) EXACERBATION SNOMED Code(s): 075356769 (3) COPD with acute exacerbation Current Visit: Yes Status: Acute Code(s): J44.1 - CHRONIC OBSTRUCTIVE PUL MONARY DISEASE W (ACUTE) EXACERBATION SNOMED Code(s): 266258369 (4) Acute urinary retention Current Visit: Yes Status: Acute Code(s): R33.8 - OTHER RETENTION OF URINE SNOMED Code(s): 571215759 (5) Atrial fibrillation Current Visit: No Status: Acute Code(s): I48.91 - UNSPECIFIED ATRIAL FIBRILLATION SNOMED Code(s): 59443411 (6) BPH (benign prostatic hyperplasia) Current Visit: No Status: Acute Code(s): N40.0 - BENIGN PROSTATIC HYPERPLASIA WITHOUT LOWER URINRY TRACT SYMP SNOMED Code(s): 790779670 (7) Indwelling Munoz catheter present Current Visit: No Status: Acute Code(s): Z97.8 - PRESENCE OF OTHER SPECIFIED DEVICES SNOMED Code(s): 830288834 (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 Continue on IV steroids, updrafts, empiric antibiotic coverage, We'll consult urology regarding his indwelling Munoz catheter these had for several weeks. We'll repeat labs in a.m. He'll be reevaluated in the next 24 hours
[2021-12-17] MEDS ORDERED: NON FORMULARY DRUG (Alendronate Sodium [Fosamax] 70 MG Tablet) PO SCH (11:45)
[2021-12-17] MEDS ORDERED: ERGOCALCIFEROL 1,250 MCG (50,000 IU) CAPSULE PO SCH (12:00)
--- NOTE | 2021-12-17 12:29 | P.CNPUL ---
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 Comes in [facility] causing worsening shortness of breath. He has cough and congestion and wheeze. Based on what his describing, has the metabolic combination of Symbicort and Incruse on outpatient basis. Does not utilize oxygen. He was given a course of Zithromax and steroids without any improvement and for that reason came into the hospital. His chest x-rays showing some chronic scarring in the mid and lower lungs bilaterally. No acute abnormalities. His white cell count is 7.8 with a hemoglobin of 13.4. The BUN is at 24 with a creatinine of 0.8 and a sodium level of 138. The patient'sCOVID 19 testing was negative. Troponin was negative. LFTs are within normal limits. Lactic acid level is not elevated. He is currently on room oxygen. Review of Systems CONSTITUTIONAL: Denies any recent significant weight loss or weight gain. EYES: Denies change in vision. EARS, NOSE, MOUTH, THROAT: Denies headaches, denies sore throat. CARDIOVASCULAR: Denies chest pain, palpitations or syncopal episodes. RESPIRATORY: Positive for shortness of breath, cough, congestion or hemoptysis. GASTROINTESTINAL: Denies change in appetite, denies abdominal pain GENITOURINARY: Denies hematuria, denies infections. MUSKULOSKELETAL: Denies pain, denies swelling. INTEGUMENTARY: Denies rash, denies eczema. NEUROLOGICAL: Denies recent memory loss, no recent seizure activity. PSYCHIATRIC: Denies anxiety, denies depression. HEMATOLOGIC/LYMPHATIC: Denies anemia, denies enlarged lymph nodes. Constitutional: Denies chills, Denies fever Eyes: denies as per HPI, denies blurred vision, denies bulging eye, denies decreased vision, denies diplopia, denies discharge, denies dry eye, denies irritation, denies itching, denies pain, denies photophobia, denies loss of peripheral vision, denies loss of vision, denies tunnel vision/blind spots Ears: deny: decreased hearing, ear discharge, earache, tinnitus Ears, nose, mouth and throat: Reports as per HPI Breasts: absent: as per HPI, gynecomastia Cardiovascular: Reports decreased exercise tolerance, Reports dyspnea on exertion Respiratory: Reports cough, Reports dyspnea, Reports wheezing Gastrointestinal: Reports as per HPI Genitourinary: Reports as per HPI Musculoskeletal: Reports as per HPI Musculoskeletal: absent: ankle pain, ankle stiffness, ankle swelling Integumentary: Reports as per HPI Neurological: Reports as per HPI Psychiatric: Reports as per HPI Endocrine: Reports as per HPI Hematologic/Lymphatic: Reports as per HPI Past Medical History Past Medical History: Atrial Fibrillation, Atrial Flutter, COPD, GERD/Reflux, Pneumonia, Prostate Disorder Additional Past Medical History / Comment(s): Paroxysmal Afib, bronchitis, BPH, constipation, vertigo, chronic low back pain/DDD. covid 06/22 History of Any Multi-Drug Resistant Organisms: None Reported Past Surgical History: Back Surgery Additional Past Surgical History / Comment(s): Bilateral cataract removals-lens implants, colonoscopy, multiple kyphoplasties. Past Anesthesia/Blood Transfusion Reactions: No Reported Reaction Additional Past Anesthesia/Blood Transfusion Reaction / Comment(s): Has never received any blood transfusions. Past Psychological History: No Psychological Hx Reported Additional Psychological History / Comment(s): Pt resides with his son, (Jt) and grandson. They live in a trailer. Pt manages his own medications. He has a nebulizer. His son cooks and drives pt to [employer]. Pt uses a walker/wheelchair. He has a nebulizer. Smoking Status: Current every day smoker Past Alcohol Use History: None Reported Additional Past Alcohol Use History / Comment(s): Pt started smoking age 11(1957) got up to 5 ppd for many years then cut down to 3 ppd, currently smoking 1 ppd. Past Drug Use History: None Reported - Past Family History Mother Family Medical History: AFIB, Dementia Father Family Medical History: Myocardial Infarction ([place]) Additional Family Medical History / Comment(s): in his 70's [place] Medications and Allergies Home Medications Medication Instructions Recorded Confirmed Type Tamsulosin HCl [Flomax] 0.4 mg PO BID 03/24/18 12/17/21 History Apixaban [Eliquis] 5 mg PO BID 09/14/18 12/17/21 History Metoprolol Tartrate [Lopressor] 50 mg PO BID 02/04/19 12/17/21 History Ergocalciferol [Vitamin D2 1,250 mcg PO GROVES 05/05/19 12/17/21 History (DRISDOL)] Alendronate Sodium [Fosamax] 70 mg PO GROVES 08/21/19 12/17/21 History Budesonide/Formoterol Fumarate 2 puff INHALATION RT-BID 05/21/20 12/17/21 History [Symbicort 160-4.5 Mcg Inhaler] Fluticasone Propion/Salmeterol 1 puff INHALATION RT-BID 04/07/21 12/17/21 History [Advair 250-50 Diskus] Gabapentin [Neurontin] 100 mg PO BID 04/07/21 12/17/21 History Albuterol Nebulized [Ventolin 2.5 mg INHALATION RT-Q4H PRN 09/20/21 12/17/21 History Nebulized] Albuterol Inhaler [Ventolin Hfa 2 puff INHALATION RT-Q6H PRN 11/17/21 12/17/21 History Inhaler] Doxazosin [Cardura] 4 mg PO DAILY 11/17/21 12/17/21 History Ipratropium Nebulized [Atrovent 0.5 mg INHALATION RT-Q4H PRN 11/17/21 12/17/21 History Nebulized 0.2 MG/ML] Ipratropium-Albuterol Nebulize 3 ml INHALATION RT-QID PRN 30 Days 11/19/21 12/17/21 Rx [Duoneb 0.5 mg-3 mg/3 ml Soln] #100 units Sulfamethox-Tmp 400-80Mg [Bactrim 1 tab PO DAILY 12/17/21 12/17/21 History SS 400-80 mg] Allergies Allergy/AdvReac Type Severity Reaction Status Date / Time Iodinated Contrast Media Allergy Rash/Hives Verified 12/17/21 11:51 [Iodinated Contrast- Oral and IV Dye] latex Allergy Rash/Hives Verified 12/17/21 11:51 Physical Exam Vitals: Vital Signs Temp Pulse Pulse Resp BP BP Pulse Ox 12/17/21 09:05 78 12/17/21 08:58 78 12/17/21 08:08 97.8 F 87 18 114/57 94 L 12/17/21 06:46 90 18 112/71 96 12/17/21 01:39 83 12/17/21 01:24 82 12/16/21 23:12 98.1 F 80 20 125/63 94 L Intake and Output 12/16/21 12/17/21 12/17/21 22:59 06:59 14:59 Other: Voiding Method Indwelling Catheter Weight 70.307 kg 70.307 kg GENERAL EXAM: Alert, active, very pleasant 74-year-old gentleman, on room air, comfortable in no apparent distress. HEAD: Normocephalic. EYES: Normal reaction of pupils, equal size. NOSE: Clear with pink turbinates. THROAT: No erythema or exudates. NECK: No masses, no JVD. CHEST: No chest wall deformity. LUNGS: Equal air entry with no crackles, wheeze, rhonchi or dullness. Diminished. CVS: S1 and S2 normal with no audible murmur, regular rhythm. ABDOMEN: No hepatosplenomegaly, normal bowel sounds, no guarding or rigidity. SPINE: No scoliosis or deformity SKIN: No rashes CENTRAL NERVOUS SYSTEM: No focal deficits, tone is normal in all 4 extremities. EXTREMITIES: There is no peripheral edema. No clubbing, no cyanosis. Peripheral pulses are intact.. Results - Laboratory Findings CBC and BMP: 12/17/21 01:15 12/17/21 01:15 Abnormal lab findings: Abnormal Labs 12/17/21 12/17/21 01:15 01:15 RBC 3.97 L Hct 38.2 L BUN 24 H Total Protein 6.0 L - Diagnostic Findings Chest x-ray: image reviewed Assessment and Plan Plan: Acute COPD exacerbation in patient with known history of moderate severe COPD with an FEV1 of 53% of predicted. The patient presented with worsening shortness of breath. Chest x-ray free of any acute pulmonary infiltration. He failed outpatient treatment with a combination of Zithromax and prednisone. Currently is being hospitalized a chest x-ray shows no acute airspace disease. No leukocytosis. Advanced COPD with a baseline FEV1 of 53% predicted, stage III COPD, not on home oxygen, maintain on combination of Symbicort, Incruse and albuterol COVID infection in [id number] Chronic smoker, chronic and ongoing, carries 60+ years of smoking Paroxysmal A. fib on Eliquis, current rhythm is sinus BPH COVID 19 infection diagnosed on 06/20/2020 Chronic low back pain Pulmonary nodules with negative PET scan Hypertension Plan: Clinically improving Chest x-ray and labs reviewed Start IV Solu-Medrol 60 mg every 6 hours Continue vitamin supplements Continue Symbicort and Incruse on an outpatient basis continue Anticoagulated with Eliquis Currently on room air oxygen We'll continue to follow and make further recommendations based on his clinical status
--- NOTE | 2021-12-17 19:18 | P.GSCN ---
History of Present Illness Consult date: 12/17/21 History of present illness: 76 yo male in the hospital for respiratory issues. Apparently is in retention of urine. We were asked to see the patient. Upon interviewing this patient he has been having problems for some time. He sees a urologist in [place]. He had a cath placed a few weeks ago for retention. He has an appointment to see the urologist in January. He had a voiding trial via Dr Brown office recently and failed The catheter was replaced. Based on his symptoms he has outlet obstruction. He states he had some surgical procedure for voiding issues in the past by the same urologist. it didnt work very well. He states that he has had 9 back surgeries in [place] and was told he couldnt have any more anesthesia. He has an indwelling catheter at present. Review of Systems All systems: negative - Constitutional Denies fever, Denies weight loss - EENT Eyes: denies blurred vision Ears, nose, mouth and throat: Denies dysphagia - Cardiovascular Denies chest pain, Denies shortness of breath - Respiratory Denies cough, Denies 7 - Gastrointestinal Reports as per HPI - Genitourinary Denies dysuria, Denies hematuria - Integumentary Denies rash, Denies unusual bruising - Neurological Denies headaches, Denies syncope - Hematologic/Lymphatic Denies easy bleeding, Denies easy bruising Past Medical History Past Medical History: Atrial Fibrillation, Atrial Flutter, COPD, GERD/Reflux, Pneumonia, Prostate Disorder Additional Past Medical History / Comment(s): Paroxysmal Afib, bronchitis, BPH, constipation, vertigo, chronic low back pain/DDD. covid 06/22 History of Any Multi-Drug Resistant Organisms: None Reported Past Surgical History: Back Surgery Additional Past Surgical History / Comment(s): Bilateral cataract removals-lens implants, colonoscopy, multiple kyphoplasties. Past Anesthesia/Blood Transfusion Reactions: No Reported Reaction Additional Past Anesthesia/Blood Transfusion Reaction / Comm: Has never received any blood transfusions. Past Psychological History: No Psychological Hx Reported Additional Psychological History / Comment(s): Pt resides with his son, (Jt) and grandson. They live in a trailer. Pt manages his own medications. He has a nebulizer. His son cooks and drives pt to [id number]. Pt uses a walker/wheelchair. He has a nebulizer. Smoking Status: Current every day smoker Past Alcohol Use History: None Reported Additional Past Alcohol Use History / Comment(s): Pt started smoking age 11 (1957) got up to 5 ppd for many years then cut down to 3 ppd, currently smoking 1 ppd. Past Drug Use History: None Reported - Past Family History Mother Family Medical History: AFIB, Dementia Father Family Medical History: Myocardial Infarction ([place]) Additional Family Medical History / Comment(s): in his 70's [place] Medications and Allergies Home Medications Medication Instructions Recorded Confirmed Type Tamsulosin HCl [Flomax] 0.4 mg PO BID 03/24/18 12/17/21 History Apixaban [Eliquis] 5 mg PO BID 09/14/18 12/17/21 History Metoprolol Tartrate [Lopressor] 50 mg PO BID 02/04/19 12/17/21 History Ergocalciferol [Vitamin D2 1,250 mcg PO GROVES 05/05/19 12/17/21 History (DRISDOL)] Alendronate Sodium [Fosamax] 70 mg PO GROVES 08/21/19 12/17/21 History Budesonide/Formoterol Fumarate 2 puff INHALATION RT-BID 05/21/20 12/17/21 History [Symbicort 160-4.5 Mcg Inhaler] Fluticasone Propion/Salmeterol 1 puff INHALATION RT-BID 04/07/21 12/17/21 History [Advair 250-50 Diskus] Gabapentin [Neurontin] 100 mg PO BID 04/07/21 12/17/21 History Albuterol Nebulized [Ventolin 2.5 mg INHALATION RT-Q4H PRN 09/20/21 12/17/21 History Nebulized] Albuterol Inhaler [Ventolin Hfa 2 puff INHALATION RT-Q6H PRN 11/17/21 12/17/21 History Inhaler] Doxazosin [Cardura] 4 mg PO DAILY 11/17/21 12/17/21 History Ipratropium Nebulized [Atrovent 0.5 mg INHALATION RT-Q4H PRN 11/17/21 12/17/21 History Nebulized 0.2 MG/ML] Ipratropium-Albuterol Nebulize 3 ml INHALATION RT-QID PRN 30 Days 11/19/21 12/17/21 Rx [Duoneb 0.5 mg-3 mg/3 ml Soln] #100 units Sulfamethox-Tmp 400-80Mg [Bactrim 1 tab PO DAILY 12/17/21 12/17/21 History SS 400-80 mg] Allergies Allergy/AdvReac Type Severity Reaction Status Date / Time Iodinated Contrast Media Allergy Rash/Hives Verified 12/17/21 11:51 [Iodinated Contrast- Oral and IV Dye] latex Allergy Rash/Hives Verified 12/17/21 11:51 Surgical - Exam Vital Signs Temp Pulse Resp BP Pulse Ox 98.1 F 80 20 125/63 94 L 12/16/21 23:12 12/16/21 23:12 12/16/21 23:12 12/16/21 23:12 12/16/21 23:12 - General well developed, well nourished, no distress - Eyes PERRL - ENT no hearing loss - Neck trachea midline - Respiratory normal expansion, normal respiratory effort - Cardiovascular Rhythm: regular - Abdomen Abdomen: soft, non tender - Genitourinary indwelling catheter. - Neurologic normal sensation - Musculoskeletal normal posture - Psychiatric oriented to time, oriented to person, oriented to place, speech is normal, memory intact Results - Labs 12/17/21 01:15 12/17/21 01:15 Abnormal Lab Results - Last 24 Hours (Table) 12/17/21 12/17/21 Range/Units 01:15 01:15 RBC 3.97 L (4.30-5.90) m/uL Hct 38.2 L (39.0-53.0) % BUN 24 H (9-20) mg/dL Total Protein 6.0 L (6.3-8.2) g/dL Diabetes panel 12/17/21 Range/Units 01:15 Sodium 138 (137-145) mmol/L Potassium 4.4 (3.5-5.1) mmol/L Chloride 105 (98-107) mmol/L Carbon Dioxide 23 (22-30) mmol/L BUN 24 H (9-20) mg/dL Creatinine 0.88 (0.66-1.25) mg/dL Glucose 91 (74-99) mg/dL Calcium 8.7 (8.4-10.2) mg/dL AST 19 (17-59) U/L ALT 15 (4-49) U/L Alkaline Phosphatase 67 (38-126) U/L Total Protein 6.0 L (6.3-8.2) g/dL Albumin 3.7 (3.5-5.0) g/dL Calcium panel 12/17/21 Range/Units 01:15 Calcium 8.7 (8.4-10.2) mg/dL Albumin 3.7 (3.5-5.0) g/dL Pituitary panel 12/17/21 Range/Units 01:15 Sodium 138 (137-145) mmol/L Potassium 4.4 (3.5-5.1) mmol/L Chloride 105 (98-107) mmol/L Carbon Dioxide 23 (22-30) mmol/L BUN 24 H (9-20) mg/dL Creatinine 0.88 (0.66-1.25) mg/dL Glucose 91 (74-99) mg/dL Calcium 8.7 (8.4-10.2) mg/dL Adrenal panel 12/17/21 Range/Units 01:15 Sodium 138 (137-145) mmol/L Potassium 4.4 (3.5-5.1) mmol/L Chloride 105 (98-107) mmol/L Carbon Dioxide 23 (22-30) mmol/L BUN 24 H (9-20) mg/dL Creatinine 0.88 (0.66-1.25) mg/dL Glucose 91 (74-99) mg/dL Calcium 8.7 (8.4-10.2) mg/dL Total Bilirubin 0.8 (0.2-1.3) mg/dL AST 19 (17-59) U/L ALT 15 (4-49) U/L Alkaline Phosphatase 67 (38-126) U/L Total Protein 6.0 L (6.3-8.2) g/dL Albumin 3.7 (3.5-5.0) g/dL Assessment and Plan Assessment: Impression: urine retention by presumed bph. Recommendations. The patient probably needs a turp however given that he was told in [place] where he has had multiple surgeries that he wasnt a candidate I recommend leaving the catheter indwelling until he sees his urologist there so that a better decision can be made as to how to handle the urine retention be it surgically or medically
[2021-12-17] MEDS: METOPROLOL TARTRATE 50 MG TAB PO SCH (19:47)
[2021-12-17] MEDS: TAMSULOSIN 0.4 MG CAP.ER.24H PO SCH (19:47)
[2021-12-17] MEDS: APIXABAN 5 MG TAB PO SCH (19:47)
[2021-12-17] MEDS: GABAPENTIN 100 MG CAP PO SCH (19:47)
[2021-12-17] MEDS ORDERED: NON FORMULARY DRUG (Fluticasone Propion/Salmeterol [Advair 250-50 Diskus] 1 EACH Each) INHALATION SCH (20:00)
[2021-12-17] MEDS: SYMBICORT 160-4.5 MCG INHALER INHALATION SCH (20:25)
[2021-12-18] MEDS: IPRATROPIUM-ALBUTEROL 3 ML NEB INHALATION PRN ×2 (00:12→03:57)
[2021-12-18] MEDS: methylPREDNISolone SOD SUCCI 125 MG/2 ML VIAL IV SCH ×2 (00:30→05:39)
[2021-12-18] MEDS: METOPROLOL TARTRATE 50 MG TAB PO SCH (07:39)
[2021-12-18] MEDS: TAMSULOSIN 0.4 MG CAP.ER.24H PO SCH (07:39)
[2021-12-18] MEDS: GABAPENTIN 100 MG CAP PO SCH (07:39)
[2021-12-18] MEDS: APIXABAN 5 MG TAB PO SCH (07:39)
[2021-12-18] MEDS: IPRATROPIUM-ALBUTEROL 3 ML NEB INHALATION SCH ×3 (07:44→15:23)
[2021-12-18] MEDS: SYMBICORT 160-4.5 MCG INHALER INHALATION SCH (07:47)
[2021-12-18] MEDS ORDERED: DOXAZOSIN 4 MG TAB PO SCH (09:00)
[2021-12-18 09:23] LABS: Basophils # (A) 0.01 X 10*3/uL (0.00-0.10); Basophils % (A) 0.1 %; Eosinophils # (A) 0 X 10*3/uL (0.04-0.35); Eosinophils % (A) 0 %; HCT 34.7 % (39.6-50.0); HGB 12.2 g/dL (13.0-17.0); Immature Grans, Automated 1.4 %; Lymphocytes # (A) 0.69 X 10*3/uL (0.90-5.00); Lymphocytes % (A) 6.6 %; MCH 32.6 pg (27.0-32.0); MCHC 35.2 g/dL (32.0-37.0); MCV 92.8 fL (80.0-97.0); Mean Platelet Volume 10.8 fL (9.5-12.2); Monocytes # (A) 0.44 X 10*3/uL (0.20-1.00); Monocytes % (A) 4.2 %; NRBC Per 100 WBC 0 /100 WBCS (0.0-0.0); Neutrophils # (A) 9.24 X 10*3/uL (1.80-7.70); Neutrophils % (A) 87.7 %; Platelet Count 209 X 10*3/uL (140-440); RBC 3.74 X 10*6/uL (4.40-5.60); RDW 12.4 % (11.5-14.5); WBC 10.53 X 10*3/uL (4.50-10.00)
[2021-12-18 09:49] LABS: African American GFR (CKD) 98.7 (60.0-200.0); Anion Gap 12.3 mmol/L (10.00-18.00); BUN/Creat Ratio 23.78 Ratio (12.00-20.00); Blood Urea Nitrogen 19.9 mg/dL (9.0-27.0); Calcium 8.4 mg/dL (8.7-10.3); Magnesium 2.1 mg/dL (1.5-2.4); Non-African American GFR(CKD) 85.2 (60.0-200.0)
--- NOTE | 2021-12-18 10:59 | P.PN ---
Subjective Progress Note Date: 12/18/21 Principal diagnosis: COPD exacerbation This is a very pleasant 76-year-old male patient who is admitted for an acute exacerbation of chronic obstructive pulmonary disease. His FEV1 value is 53% of predicted. He is maintained on Symbicort, increase and albuterol in the outpatient setting. He is not oxygen dependent. He is seen today in follow-up on the regular medical floor. Awake and alert in no acute distress. White count 10.5. Humulin 12.2. Platelets 209. Sodium 136. Potassium 4.0. Bicarb 21. BUN 20. Creatinine 0.8. Glucose 157. Chronic virus by PCR not detected. Feeling back to his baseline. Anxious to go home. CK good O2 saturations in the mid 90s on 2 L/m per nasal cannula. Afebrile. Hemodynamically stable. Continue on Symbicort, DuoNeb inhalations, IV Solu-Medrol. Anticoagulated with Eliquis. Objective - Vital Signs Vital signs: Vital Signs Temp 97.8 F 12/18/21 04:39 Pulse 87 12/18/21 07:54 Resp 20 12/18/21 04:39 BP 125/73 12/18/21 04:39 Pulse Ox 96 12/18/21 07:48 FiO2 Intake & Output 12/17/21 12/18/21 12/18/21 18:59 06:59 18:59 Intake Total 560 500 Balance 560 500 Weight 70.307 kg Intake: Oral 560 500 Other: Voiding Method Indwelling Catheter Indwelling Catheter Indwelling Catheter # Voids 3 2 - Exam GENERAL EXAM: Alert, very pleasant 74-year-old gentleman, on 2 L nasal cannula, comfortable in no apparent distress. HEAD: Normocephalic. EYES: Normal reaction of pupils, equal size. NOSE: Clear with pink turbinates. THROAT: No erythema or exudates. NECK: No masses, no JVD. CHEST: No chest wall deformity. LUNGS: Equal air entry with no crackles, wheeze, rhonchi or dullness. Diminished. CVS: S1 and S2 normal with no audible murmur, regular rhythm. ABDOMEN: No hepatosplenomegaly, normal bowel sounds, no guarding or rigidity. SPINE: No scoliosis or deformity SKIN: No rashes CENTRAL NERVOUS SYSTEM: No focal deficits, tone is normal in all 4 extremities. EXTREMITIES: There is no peripheral edema. No clubbing, no cyanosis. Peripheral pulses are intact. - Labs CBC & Chem 7: 12/18/21 06:05 12/18/21 06:05 Labs: Abnormal Lab Results - Last 24 Hours (Table) 12/18/21 12/18/21 Range/Units 06:05 06:05 WBC 10.53 H (4.50-10.00) X 10*3/uL RBC 3.74 L (4.40-5.60) X 10*6/uL Hgb 12.2 L (13.0-17.0) g/dL Hct 34.7 L (39.6-50.0) % MCH 32.6 H (27.0-32.0) pg Immature Gran # 0.15 H (0.00-0.04) X 10*3/uL Neutrophils # 9.24 H (1.80-7.70) X 10*3/uL Lymphocytes # 0.69 L (0.90-5.00) X 10*3/uL Eosinophils # 0 L (0.04-0.35) X 10*3/uL BUN/Creatinine Ratio 23.78 H (12.00-20.00) Ratio Glucose 157 H (70-110) mg/dL Calcium 8.4 L (8.7-10.3) mg/dL TSH 0.242 L (0.350-5.500) uIU/mL Assessment and Plan Assessment: Acute hypoxemic respiratory failure secondary to an acute COPD exacerbation in patient with known history of moderate severe COPD. Chest x-ray free of any a cute pulmonary infiltration. Advanced COPD with a baseline FEV1 of 53% predicted, stage III COPD, not on home oxygen, maintain on combination of Symbicort, Incruse and albuterol COVID infection in June 2020 Chronic smoker, chronic and ongoing, carries 60+ years of smoking Paroxysmal A. fib on Eliquis, current rhythm is sinus BPH COVID 19 infection diagnosed on 06/20/2020 Chronic low back pain Pulmonary nodules with negative PET scan Hypertension Plan: The patient was seen and evaluated Labs and medications reviewed Transition to oral prednisone starting a taper at 40 mg 4 days Evaluate for possible home oxygen Cleared for discharge from pulmonary standpoint Continue his outpatient pulmonary medications Remains anticoagulated with Eliquis Follow-up in the clinic in 1-2 weeks' I have personally seen and examined the patient, performed the documentation and the assessment and plan as written. Number of minutes spent on the visit: 10.
[2021-12-18 11:59] VITALS: BP 116/69; PULSE 85; RESP 18; TEMP 97.4
--- NOTE | 2021-12-18 14:11 | P.DS ---
Providers Date of admission: 12/17/21 03:00 Expected date of discharge: 12/18/21 Attending physician: Fernando Lambert Consults: 12/17/21 03:04 Consult Physician Routine Consulting Provider: Martir Tucker Consult Reason/Comments: COPD exacerbation Do you want consulting provider notified?: Yes 12/17/21 03:05 Consult Physician Routine Consulting Provider: Bryce Villagomez Consult Reason/Comments: Dysuria. Urinary retention Do you want consulting provider notified?: Yes Primary care physician: [facility] Course: Final Diagnoses: (1) Acute hypercapnic respiratory failure Current Visit: No Status: Acute Code(s): J96.02 - ACUTE RESPIRATORY FAILURE WITH HYPERCAPNIA SNOMED Code(s): 738634787 (2) Acute exacerbation of chronic obstructive airways disease Current Visit: No Status: Acute Code(s): J44.1 - CHRONIC OBSTRUCTIVE PULMONARY DISEASE W (ACUTE) EXACERBATION SNOMED Code(s): 906365029 (3) COPD with acute exacerbation Current Visit: Yes Status: Acute Code(s): J44.1 - CHRONIC OBSTRUCTIVE PULMONARY DISEASE W (ACUTE) EXACERBATION SNOMED Code(s): 390878017 (4) Acute urinary retention Current Visit: Yes Status: Acute Code(s): R33.8 - OTHER RETENTION OF URINE SNOMED Code(s): 114014926 (5) Atrial fibrillation Current Visit: No Status: Acute Code(s): I48.91 - UNSPECIFIED ATRIAL FIBRILLATION SNOMED Code(s): 61616263 (6) BPH (benign prostatic hyperplasia) Current Visit: No Status: Acute Code(s): N40.0 - BENIGN PROSTATIC HYPERPLASIA WITHOUT LOWER URINRY TRACT SYMP SNOMED Code(s): 092281508 (7) Indwelling Munoz catheter present Current Visit: No Status: Acute Code(s): Z97.8 - PRESENCE OF OTHER SPECIFIED DEVICES SNOMED Code(s): 137855087 (8) FPC (current) use of anticoagulants Current Visit: No Status: Acute Code(s): Z79.01 - NURSING HOME (CURRENT) USE OF ANTICOAGULANTS SNOMED Code(s): 798329108 (9) Smoker Current Visit: No Status: Acute Code(s): F17.200 - NICOTINE DEPENDENCE, UNSPECIFIED, UNCOMPLICATED SNOMED Code(s): 20736570 (10) TSH 0.24, repeat levels outpatient in clinic with PCP Hospital course:This is 76-year-old white male with known COPD and tobaccoism. He will not quit smoking. He is usually in the hospital several times a year for acute exacerbation. He presented with a 1 day history of increasing shortness of breath. He reports that it came on suddenly and the updraft treatments do not seem to be lasting long. He presented emergency room seen and evaluated and admitted for this patient COPD. Recently his last admission he had urinary retention and went home with Munoz catheter. He did not seen urology yet. Today he denies any chest pains or pressures. He shortness of breath with exertion. Denies any nausea or vomiting this time. Oxygen is on standby. Labs are essentially normal. Evaluated and treated by pulmonary with significant clinical improvement. Patient reporting he feels better and requesting to be discharged. Patient evaluated by urology ,has been advised to follow-up with his urologist outpatient regarding urinary retention/BPH.Patient will be discharged home today in a stable condition with guarded prognosis, pending final DC recommendations and clearance per pulmonary. The impression and plan of care has been dictated as directed. : I performed a history and examination of this patient, discussed the same with the dictator. I agree with the dictator's note ,documented as a scribe. Any additional findings or plans will be noted. Patient Condition at Discharge: Stable Plan - Discharge Summary Discharge Rx Participant: No New Discharge Prescriptions: New predniSONE 10 mg PO DIRECTED #30 tab Famotidine [Pepcid] 20 mg PO BID #60 tablet cefUROXime axetiL [Ceftin] 500 mg PO BID 5 Days #10 tab Continue Tamsulosin HCl [Flomax] 0.4 mg PO BID Apixaban [Eliquis] 5 mg PO BID Metoprolol Tartrate [Lopressor] 50 mg PO BID Ergocalciferol [Vitamin D2 (DRISDOL)] 1,250 mcg PO GROVES Alendronate Sodium [Fosamax] 70 mg PO GROVES Budesonide/Formoterol Fumarate [Symbicort 160-4.5 Mcg Inhaler] 2 puff INHALATION RT-BID Fluticasone Propion/Salmeterol [Advair 250-50 Diskus] 1 puff INHALATION RT- BID Albuterol Nebulized [Ventolin Nebulized] 2.5 mg INHALATION RT-Q4H PRN PRN Reason: Shortness Of Breath Ipratropium Nebulized [Atrovent Nebulized 0.2 MG/ML] 0.5 mg INHALATION RT-Q4H PRN PRN Reason: Shortness Of Breath Gabapentin [Neurontin] 100 mg PO BID Albuterol Inhaler [Ventolin Hfa Inhaler] 2 puff INHALATION RT-Q6H PRN PRN Reason: Shortness Of Breath Doxazosin [Cardura] 4 mg PO DAILY Ipratropium-Albuterol Nebulize [Duoneb 0.5 mg-3 mg/3 ml Soln] 3 ml INHALATION RT-QID PRN 30 Days #100 units PRN Reason: Shortness Of Breath Discontinued Sulfamethox-Tmp 400-80Mg [Bactrim SS 400-80 mg] 1 tab PO DAILY Discharge Medication List Tamsulosin HCl [Flomax] 0.4 mg PO BID 03/24/18 [History] Apixaban [Eliquis] 5 mg PO BID 09/14/18 [History] Metoprolol Tartrate [Lopressor] 50 mg PO BID 02/04/19 [History] Ergocalciferol [Vitamin D2 (DRISDOL)] 1,250 mcg PO GROVES 05/05/19 [History] Alendronate Sodium [Fosamax] 70 mg PO GROVES 08/21/19 [History] Budesonide/Formoterol Fumarate [Symbicort 160-4.5 Mcg Inhaler] 2 puff INHALATION RT-BID 05/21/20 [History] Fluticasone Propion/Salmeterol [Advair 250-50 Diskus] 1 puff INHALATION RT-BID 04/07/21 [History] Gabapentin [Neurontin] 100 mg PO BID 04/07/21 [History] Albuterol Nebulized [Ventolin Nebulized] 2.5 mg INHALATION RT-Q4H PRN 09/20/21 [History] Albuterol Inhaler [Ventolin Hfa Inhaler] 2 puff INHALATION RT-Q6H PRN 11/17/21 [History] Doxazosin [Cardura] 4 mg PO DAILY 11/17/21 [History] Ipratropium Nebulized [Atrovent Nebulized 0.2 MG/ML] 0.5 mg INHALATION RT-Q4H PRN 11/17/21 [History] Ipratropium-Albuterol Nebulize [Duoneb 0.5 mg-3 mg/3 ml Soln] 3 ml INHALATION RT-QID PRN 30 Days #100 units 11/19/21 [Rx] Famotidine [Pepcid] 20 mg PO BID #60 tablet 12/18/21 [Rx] cefUROXime axetiL [Ceftin] 500 mg PO BID 5 Days #10 tab 12/18/21 [Rx] predniSONE 10 mg PO DIRECTED #30 tab 12/18/21 [Rx] Follow up Appointment(s)/Referral(s): Fernando Lambert Jr, [Primary Care Provider] - 3 Days
--- NOTE | 2021-12-18 14:11 | P.DS ---
Providers Date of admission: 12/17/21 03:00 Expected date of discharge: 12/18/21 Attending physician: Fernando Lambert Consults: 12/17/21 03:04 Consult Physician Routine Consulting Provider: Martir Tucker Consult Reason/Comments: COPD exacerbation Do you want consulting provider notified?: Yes 12/17/21 03:05 Consult Physician Routine Consulting Provider: Bryce Villagomez Consult Reason/Comments: Dysuria. Urinary retention Do you want consulting provider notified?: Yes Primary care physician: [facility] Course: Final Diagnoses: (1) Acute hypercapnic respiratory failure Current Visit: No Status: Acute Code(s): J96.02 - ACUTE RESPIRATORY FAILURE WITH HYPERCAPNIA SNOMED Code(s): 041414247 (2) Acute exacerbation of chronic obstructive airways disease Current Visit: No Status: Acute Code(s): J44.1 - CHRONIC OBSTRUCTIVE PULMONARY DISEASE W (ACUTE) EXACERBATION SNOMED Code(s): 488840987 (3) COPD with acute exacerbation Current Visit: Yes Status: Acute Code(s): J44.1 - CHRONIC OBSTRUCTIVE PULMONARY DISEASE W (ACUTE) EXACERBATION SNOMED Code(s): 144313089 (4) Acute urinary retention Current Visit: Yes Status: Acute Code(s): R33.8 - OTHER RETENTION OF URINE SNOMED Code(s): 090747302 (5) Atrial fibrillation Current Visit: No Status: Acute Code(s): I48.91 - UNSPECIFIED ATRIAL FIBRILLATION SNOMED Code(s): 63831583 (6) BPH (benign prostatic hyperplasia) Current Visit: No Status: Acute Code(s): N40.0 - BENIGN PROSTATIC HYPERPLASIA WITHOUT LOWER URINRY TRACT SYMP SNOMED Code(s): 088001937 (7) Indwelling Munoz catheter present Current Visit: No Status: Acute Code(s): Z97.8 - PRESENCE OF OTHER SPECIFIED DEVICES SNOMED Code(s): 681755533 (8) long-term (current) use of anticoagulants Current Visit: No Status: Acute Code(s): Z79.01 - SENIOR LIVING (CURRENT) USE OF ANTICOAGULANTS SNOMED Code(s): 589086180 (9) Smoker Current Visit: No Status: Acute Code(s): F17.200 - NICOTINE DEPENDENCE, UNSPECIFIED, UNCOMPLICATED SNOMED Code(s): 13052250 (10) TSH 0.24, repeat levels outpatient in clinic with PCP Hospital course:This is 76-year-old white male with known COPD and tobaccoism. He will not quit smoking. He is usually in the hospital several times a year for acute exacerbation. He presented with a 1 day history of increasing shortness of breath. He reports that it came on suddenly and the updraft treatments do not seem to be lasting long. He presented emergency room seen and evaluated and admitted for this patient COPD. Recently his last admission he had urinary retention and went home with Munoz catheter. He did not seen urology yet. Today he denies any chest pains or pressures. He shortness of breath with exertion. Denies any nausea or vomiting this time. Oxygen is on standby. Labs are essentially normal. Evaluated and treated by pulmonary with significant clinical improvement. Patient reporting he feels better and requesting to be discharged. Patient evaluated by urology ,has been advised to follow-up with his urologist outpatient regarding urinary retention/BPH.Patient will be discharged home today in a stable condition with guarded prognosis, pending final DC recommendations and clearance per pulmonary. The impression and plan of care has been dictated as directed. : I performed a history and examination of this patient, discussed the same with the dictator. I agree with the dictator's note ,documented as a scribe. Any additional findings or plans will be noted. Patient Condition at Discharge: Stable Plan - Discharge Summary Discharge Rx Participant: No New Discharge Prescriptions: New predniSONE 10 mg PO DIRECTED #30 tab Famotidine [Pepcid] 20 mg PO BID #60 tablet cefUROXime axetiL [Ceftin] 500 mg PO BID 5 Days #10 tab Continue Tamsulosin HCl [Flomax] 0.4 mg PO BID Apixaban [Eliquis] 5 mg PO BID Metoprolol Tartrate [Lopressor] 50 mg PO BID Ergocalciferol [Vitamin D2 (DRISDOL)] 1,250 mcg PO GROVES Alendronate Sodium [Fosamax] 70 mg PO GROVES Budesonide/Formoterol Fumarate [Symbicort 160-4.5 Mcg Inhaler] 2 puff INHALATION RT-BID Fluticasone Propion/Salmeterol [Advair 250-50 Diskus] 1 puff INHALATION RT- BID Albuterol Nebulized [Ventolin Nebulized] 2.5 mg INHALATION RT-Q4H PRN PRN Reason: Shortness Of Breath Ipratropium Nebulized [Atrovent Nebulized 0.2 MG/ML] 0.5 mg INHALATION RT-Q4H PRN PRN Reason: Shortness Of Breath Gabapentin [Neurontin] 100 mg PO BID Albuterol Inhaler [Ventolin Hfa Inhaler] 2 puff INHALATION RT-Q6H PRN PRN Reason: Shortness Of Breath Doxazosin [Cardura] 4 mg PO DAILY Ipratropium-Albuterol Nebulize [Duoneb 0.5 mg-3 mg/3 ml Soln] 3 ml INHALATION RT-QID PRN 30 Days #100 units PRN Reason: Shortness Of Breath Discontinued Sulfamethox-Tmp 400-80Mg [Bactrim SS 400-80 mg] 1 tab PO DAILY Discharge Medication List Tamsulosin HCl [Flomax] 0.4 mg PO BID 03/24/18 [History] Apixaban [Eliquis] 5 mg PO BID 09/14/18 [History] Metoprolol Tartrate [Lopressor] 50 mg PO BID 02/04/19 [History] Ergocalciferol [Vitamin D2 (DRISDOL)] 1,250 mcg PO GROVES 05/05/19 [History] Alendronate Sodium [Fosamax] 70 mg PO GROVES 08/21/19 [History] Budesonide/Formoterol Fumarate [Symbicort 160-4.5 Mcg Inhaler] 2 puff INHALATION RT-BID 05/21/20 [History] Fluticasone Propion/Salmeterol [Advair 250-50 Diskus] 1 puff INHALATION RT-BID 04/07/21 [History] Gabapentin [Neurontin] 100 mg PO BID 04/07/21 [History] Albuterol Nebulized [Ventolin Nebulized] 2.5 mg INHALATION RT-Q4H PRN 09/20/21 [History] Albuterol Inhaler [Ventolin Hfa Inhaler] 2 puff INHALATION RT-Q6H PRN 11/17/21 [History] Doxazosin [Cardura] 4 mg PO DAILY 11/17/21 [History] Ipratropium Nebulized [Atrovent Nebulized 0.2 MG/ML] 0.5 mg INHALATION RT-Q4H PRN 11/17/21 [History] Ipratropium-Albuterol Nebulize [Duoneb 0.5 mg-3 mg/3 ml Soln] 3 ml INHALATION RT-QID PRN 30 Days #100 units 11/19/21 [Rx] Famotidine [Pepcid] 20 mg PO BID #60 tablet 12/18/21 [Rx] cefUROXime axetiL [Ceftin] 500 mg PO BID 5 Days #10 tab 12/18/21 [Rx] predniSONE 10 mg PO DIRECTED #30 tab 12/18/21 [Rx] Follow up Appointment(s)/Referral(s): Fernando Lambert Jr, [Primary Care Provider] - 3 Days
[2021-12-19] MEDS ORDERED: predniSONE 20 MG TAB PO SCH (09:00)
== END 2021-12-18 15:00 ==
LOC: EC 21:19 → 5NMEDONC 12-17 03:00
PROVIDERS: ADMIT Family Medicine; ATTEND Family Medicine
DX: J96.02 Acute respiratory failure with hypercapnia (principal); J44.1 Chronic obstructive pulmonary disease with (acute) exacerbation; R33.8 Other retention of urine; K21.9 Gastro-esophageal reflux disease without esophagitis; I48.0 Paroxysmal atrial fibrillation; N40.0 Benign prostatic hyperplasia without lower urinary tract symptoms; I48.92 Unspecified atrial flutter; M54.50 Low back pain, unspecified; G89.29 Other chronic pain; F17.200 Nicotine dependence, unspecified, uncomplicated; I10 Essential (primary) hypertension; Z86.16 Personal history of COVID-19; Z79.51 Long term (current) use of inhaled steroids; Z91.040 Latex allergy status; Z79.899 Other long term (current) drug therapy; Z79.01 Long term (current) use of anticoagulants; Z79.83 Long term (current) use of bisphosphonates; Z98.42 Cataract extraction status, left eye; Z98.41 Cataract extraction status, right eye; Z96.1 Presence of intraocular lens; Z82.49 Family history of ischemic heart disease and other diseases of the circulatory system; Z82.0 Family history of epilepsy and other diseases of the nervous system; Z20.822 Contact with and (suspected) exposure to COVID-19
CPT/HCPCS: 96376 ×2; 96374; 99285; 36415; 94640 ×4; 94760 ×2; 93005; 84439; 83880; 80053; 80048; 84443; 83605; 83735; 84484; 85025 ×2; 87635; 71046; G0378 ×2; J2930 ×2; J7512

== ENCOUNTER 2021-12-30 08:33 | Emergency (ER) | payer MEDICARE ==
[2021-12-30 08:37] VITALS: BP 139/86; PULSE 68; RESP 16; TEMP 98.3
[2021-12-30] MEDS ORDERED: LIDOCAINE 2% URO-JET JELLY 5 ML KIT URETHRAL ONE (08:58)
--- NOTE | 2021-12-30 09:02 | ED ---
General Adult HPI - General Chief complaint: Recheck/Abnormal Lab/Rx Stated complaint: Catheter leaking Time Seen by Provider: 12/30/21 08:34 Source: patient, RN notes reviewed Mode of arrival: wheelchair Limitations: no limitations - History of Present Illness Initial comments: 76-year-old male presents emergency Department with chief complaint of leaking catheter. Patient states that his Munoz catheter has been for a few weeks states it has been leaking overnight. Patient states she does have some mild irritation urine has been cloudy. No fevers chills no back pain no abdominal pain. Patient states that Dr. Lambert is discussed removing the catheter but is waiting for further testing. - Related Data Home Medications Medication Instructions Recorded Confirmed Tamsulosin HCl [Flomax] 0.4 mg PO BID 03/24/18 12/17/21 Apixaban [Eliquis] 5 mg PO BID 09/14/18 12/17/21 Metoprolol Tartrate [Lopressor] 50 mg PO BID 02/04/19 12/17/21 Ergocalciferol [Vitamin D2 1,250 mcg PO GROVES 05/05/19 12/17/21 (DRISDOL)] Alendronate Sodium [Fosamax] 70 mg PO GROVES 08/21/19 12/17/21 Budesonide/Formoterol Fumarate 2 puff INHALATION RT-BID 05/21/20 12/17/21 [Symbicort 160-4.5 Mcg Inhaler] Fluticasone Propion/Salmeterol 1 puff INHALATION RT-BID 04/07/21 12/17/21 [Advair 250-50 Diskus] Gabapentin [Neurontin] 100 mg PO BID 04/07/21 12/17/21 Albuterol Nebulized [Ventolin 2.5 mg INHALATION RT-Q4H PRN 09/20/21 12/17/21 Nebulized] Albuterol Inhaler [Ventolin Hfa 2 puff INHALATION RT-Q6H PRN 11/17/21 12/17/21 Inhaler] Doxazosin [Cardura] 4 mg PO DAILY 11/17/21 12/17/21 Ipratropium Nebulized [Atrovent 0.5 mg INHALATION RT-Q4H PRN 11/17/21 12/17/21 Nebulized 0.2 MG/ML] Previous Rx's Medication Instructions Recorded Ipratropium-Albuterol Nebulize 3 ml INHALATION RT-QID PRN 30 Days 11/19/21 [Duoneb 0.5 mg-3 mg/3 ml Soln] #100 units Famotidine [Pepcid] 20 mg PO BID #60 tablet 12/18/21 cefUROXime axetiL [Ceftin] 500 mg PO BID 5 Days #10 tab 12/18/21 predniSONE 10 mg PO DIRECTED #30 tab 12/18/21 Allergies Allergy/AdvReac Type Severity Reaction Status Date / Time Iodinated Contrast Media Allergy Rash/Hives Verified 12/30/21 08:34 [Iodinated Contrast- Oral and IV Dye] latex Allergy Rash/Hives Verified 12/30/21 08:34 Review of Systems ROS Statement: Those systems with pertinent positive or pertinent negative responses have been documented in the HPI. ROS Other: All systems not noted in ROS Statement are negative. Past Medical History Past Medical History: Atrial Fibrillation, Atrial Flutter, COPD, GERD/Reflux, Pneumonia, Prostate Disorder Additional Past Medical History / Comment(s): Paroxysmal Afib, bronchitis, BPH, constipation, vertigo, chronic low back pain/DDD. covid 06/22 History of Any Multi-Drug Resistant Organisms: None Reported Past Surgical History: Back Surgery Additional Past Surgical History / Comment(s): Bilateral cataract removals-lens implants, colonoscopy, multiple kyphoplasties. Past Anesthesia/Blood Transfusion Reactions: No Reported Reaction Additional Past Anesthesia/Blood Transfusion Reaction / Comment(s): Has never received any blood transfusions. Past Psychological History: No Psychological Hx Reported Smoking Status: Current every day smoker Past Alcohol Use History: None Reported Past Drug Use History: None Reported - Past Family History Mother Family Medical History: AFIB, Dementia Father Family Medical History: Myocardial Infarction ([place]) Additional Family Medical History / Comment(s): in his 70's [place] General Exam Limitations: no limitations General appearance: alert, in no apparent distress Head exam: Present: atraumatic, normocephalic, normal inspection Eye exam: Present: normal appearance, PERRL, EOMI. Absent: scleral icterus, conjunctival injection, periorbital swelling ENT exam: Present: normal exam, normal oropharynx, mucous membranes moist Neck exam: Present: normal inspection, full ROM. Absent: tenderness, meningismus, lymphadenopathy Respiratory exam: Present: normal lung sounds bilaterally. Absent: respiratory distress, wheezes, rales, rhonchi, stridor Cardiovascular Exam: Present: regular rate, normal rhythm, normal heart sounds. Absent: systolic murmur, diastolic murmur, rubs, gallop, clicks GI/Abdominal exam: Present: soft, normal bowel sounds. Absent: distended, tenderness, guarding, rebound, rigid Course Vital Signs 12/30/21 08:34 Temperature 98.3 F Pulse Rate 68 Respiratory 16 Rate Blood Pressure 139/86 O2 Sat by Pulse 96 Oximetry Medical Decision Making - Medical Decision Making 76 show male presented for a catheter leaking. Patient's Munoz catheter was exchanged and nonlatex catheter was provided. Patient urinalysis does not reveal any significant findings. Patient discharged in stable condition to parameters were discussed. - Lab Data Lab Results 12/30/21 Range/Units 09:45 Urine Color Yellow Urine Appearance Clear (Clear) Urine pH 7.0 (5.0-8.0) Ur Specific [place] 1.015 (1.001-1.035) Urine Protein Negative (Negative) Urine Glucose (UA) Negative (Negative) Urine Ketones Negative (Negative) Urine Blood Small H (Negative) Urine Nitrite Negative (Negative) Urine Bilirubin Negative (Negative) Urine Urobilinogen <2.0 (<2.0) mg/dL Ur Leukocyte Esterase Moderate H (Negative) Urine RBC 16 H (0-5) /hpf Urine WBC 8 H (0-5) /hpf Ur Squamous Epith Cells <1 (0-4) /hpf Urine Mucus Rare H (None) /hpf Disposition Clinical Impression: Complication of Munoz catheter Disposition: HOME SELF-CARE Condition: Stable Instructions (If sedation given, give patient instructions): Munoz Catheter Placement and Care (ED) Additional Instructions: Please return to the Emergency Department if symptoms worsen or any other concerns. Is patient prescribed a controlled substance at d/c from ED?: No Referrals: Fernando Lambert Jr, DO [Primary Care Provider] - 1-2 days Jeffery Rey MD [STAFF PHYSICIAN] - 1-2 days Time of Disposition: 10:48
[2021-12-30 10:34] LABS: Appearance,Urine Clear (Clear); Bilirubin,Urine Negative (Negative); Blood,Urine Small (Negative); Color,Urine Yellow; Glucose,Urine (UA) Negative (Negative); Ketones,Urine Negative (Negative); Leukocyte Esterase,Urine Moderate (Negative); Mucus,Urine Rare /hpf; Nitrite,Urine Negative (Negative); Protein,Urine Negative (Negative); RBC,Urine 16 /hpf (0-5); Specific Gravity,Urine 1.015 (1.001-1.035); Squamous Epithelial Cell,Urine <1 /hpf (0-4); Urobilinogen,Urine <2.0 mg/dL (<2.0); WBC,Urine 8 /hpf (0-5)
== END 2021-12-30 11:15 | disposition home or self-care (01) ==
LOC: EC 08:33
DX: T83.091A Other mechanical complication of indwelling urethral catheter, initial encounter (principal); I48.91 Unspecified atrial fibrillation; J44.9 Chronic obstructive pulmonary disease, unspecified; K21.9 Gastro-esophageal reflux disease without esophagitis; F17.200 Nicotine dependence, unspecified, uncomplicated; Z79.899 Other long term (current) drug therapy; Z91.041 Radiographic dye allergy status; Z91.040 Latex allergy status
CPT/HCPCS: 81001; 99283

== ENCOUNTER → 2022-01-17 | Outpatient (CLI) | payer MEDICARE ==
--- NOTE | 2022-01-17 14:04 | CT ---
EXAMINATION TYPE: CT abdomen pelvis wo con DATE OF EXAM: 01/17/2022 HISTORY: Abdominal pain, enlarged blood vessels in abdomen CT DLP: 664 mGycm. Automated Exposure Control for Dose Reduction was Utilized. TECHNIQUE: CT scan of the abdomen and pelvis is performed without oral or IV contrast. COMPARISON: Prior PET/CT September 20, 2018 FINDINGS: Within the limitations of a non-contrast study, the following observations are made. LUNG BASES: Emphysematous change and at least moderate chronic fibrotic changes in the visualized oneyda g bases is seen. Perhaps slight progression from comparison PET/CT with some posterior honeycombing n oted. LIVER/GB: No biliary dilatation. Liver size normal. PANCREAS: No significant abnormality is seen. SPLEEN: No significant abnormality is seen. ADRENALS: No significant abnormality is seen. KIDNEYS: No renal stones or hydronephrosis seen bilaterally. BOWEL: Small sized hiatal hernia. Normal-appearing appendix GENITAL ORGANS: Mildly enlarged prostate gland redemonstrated. There are new vertical oriented densit ies in the anterior superior aspect of the prostate gland. Correlate clinically. LYMPH NODES: No greater than 1cm abdominal or pelvic lymph nodes are appreciated. OSSEOUS STRUCTURES: Multilevel vertebroplasty now identified from PET CT involving T12-L4 vertebral a nd T8 and T9 vertebra slight scoliotic curvature redemonstrated. Demineralization is seen. Moderate a xial joint space loss in both hips. OTHER: There is an infrarenal AAA up to 3.9 cm axial image 67 on current study. No aneurysmal extensi on into the common iliac arteries is seen. 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 Small fat-containing umbilical hernia. IMPRESSION: 1. No acute findings are evident. 2. AAA up to 3.9 cm on current study. Appropriate imaging monitoring advised. Other findings as noted above.
== END | disposition home or self-care (01) ==
LOC: RADCTMAIN 12:01
PROVIDERS: ATTEND Family Medicine
DX: I71.40 Abdominal aortic aneurysm, without rupture, unspecified (principal)
CPT/HCPCS: 74176

== ENCOUNTER 2022-01-25 18:15 | Emergency (ER) | payer MEDICARE ==
[2022-01-25 18:21] VITALS: TEMP 98
[2022-01-25] MEDS ORDERED: LIDOCAINE 5% PATCH TOPICAL SCH (19:00)
--- NOTE | 2022-01-25 19:22 | ED ---
General Adult HPI - General Chief complaint: Fall Stated complaint: Fall, Back Pain Time Seen by Provider: 01/25/22 18:23 Source: patient Mode of arrival: wheelchair Limitations: no limitations - History of Present Illness Initial comments: This is a 76-year-old male with a past medical history including COPD, A fib on Eliquis, presents emergency department after a fall yesterday. The patient stated that he had a mechanical fall, tripping over a curb when he landed forward onto an outstretched hand. The patient did not hit his head and did not lose consciousness. The patient also stated that he was at his daughter's house and didn't have any pain until later today he started to have soreness in his midline lower back and right posterior hip. The patient was able to inflate throughout the emergency department however and did not have any difficulties. The patient stated he had continued soreness and pain so he came to the emergency department to be evaluated. The patient denied any other acute pain or complaints. The patient denied any lightheadedness or dizziness. The patient also denied any numbness or tingling in his lower extremities, as well as denied any urinary or fecal incontinence. The patient denied any direct trauma to his back. - Related Data Home Medications Medication Instructions Recorded Confirmed Tamsulosin HCl [Flomax] 0.4 mg PO BID 03/24/18 12/17/21 Apixaban [Eliquis] 5 mg PO BID 09/14/18 12/17/21 Metoprolol Tartrate [Lopressor] 50 mg PO BID 02/04/19 12/17/21 Ergocalciferol [Vitamin D2 1,250 mcg PO GROVES 05/05/19 12/17/21 (DRISDOL)] Alendronate Sodium [Fosamax] 70 mg PO GROVES 08/21/19 12/17/21 Budesonide/Formoterol Fumarate 2 puff INHALATION RT-BID 05/21/20 12/17/21 [Symbicort 160-4.5 Mcg Inhaler] Fluticasone Propion/Salmeterol 1 puff INHALATION RT-BID 04/07/21 12/17/21 [Advair 250-50 Diskus] Gabapentin [Neurontin] 100 mg PO BID 04/07/21 12/17/21 Albuterol Nebulized [Ventolin 2.5 mg INHALATION RT-Q4H PRN 09/20/21 12/17/21 Nebulized] Albuterol Inhaler [Ventolin Hfa 2 puff INHALATION RT-Q6H PRN 11/17/21 12/17/21 Inhaler] Doxazosin [Cardura] 4 mg PO DAILY 11/17/21 12/17/21 Ipratropium Nebulized [Atrovent 0.5 mg INHALATION RT-Q4H PRN 11/17/21 12/17/21 Nebulized 0.2 MG/ML] Previous Rx's Medication Instructions Recorded Ipratropium-Albuterol Nebulize 3 ml INHALATION RT-QID PRN 30 Days 11/19/21 [Duoneb 0.5 mg-3 mg/3 ml Soln] #100 units Famotidine [Pepcid] 20 mg PO BID #60 tablet 12/18/21 cefUROXime axetiL [Ceftin] 500 mg PO BID 5 Days #10 tab 12/18/21 predniSONE 10 mg PO DIRECTED #30 tab 12/18/21 Lidocaine 5% Patch [Lidoderm 5% 1 patch TOPICAL DAILY 14 Days #14 01/25/22 Patch] patch Allergies Allergy/AdvReac Type Severity Reaction Status Date / Time Iodinated Contrast Media Allergy Rash/Hives Verified 01/25/22 18:21 [Iodinated Contrast- Oral and IV Dye] latex Allergy Rash/Hives Verified 01/25/22 18:21 Review of Systems ROS Statement: Those systems with pertinent positive or pertinent negative responses have been documented in the HPI. ROS Other: All systems not noted in ROS Statement are negative. Past Medical History Past Medical History: Atrial Fibrillation, Atrial Flutter, COPD, GERD/Reflux, Pneumonia, Prostate Disorder Additional Past Medical History / Comment(s): Paroxysmal Afib, bronchitis, BPH, constipation, vertigo, chronic low back pain/DDD. covid 06/22 History of Any Multi-Drug Resistant Organisms: None Reported Past Surgical History: Back Surgery Additional Past Surgical History / Comment(s): Bilateral cataract removals-lens implants, colonoscopy, multiple kyphoplasties. Past Anesthesia/Blood Transfusion Reactions: No Reported Reaction Additional Past Anesthesia/Blood Transfusion Reaction / Comment(s): Has never received any blood transfusions. Past Psychological History: No Psychological Hx Reported Smoking Status: Current every day smoker Past Alcohol Use History: None Reported Past Drug Use History: None Reported - Past Family History Mother Family Medical History: AFIB, Dementia Father Family Medical History: Myocardial Infarction ([place]) Additional Family Medical History / Comment(s): in his 70's [place] General Exam Limitations: no limitations General appearance: alert, in no apparent distress Head exam: Present: atraumatic, normocephalic Eye exam: Present: normal appearance, PERRL Pupils: Present: normal accommodation ENT exam: Present: normal exam, normal oropharynx, mucous membranes moist Neck exam: Present: normal inspection, full ROM Respiratory exam: Present: normal lung sounds bilaterally Cardiovascular Exam: Present: regular rate, normal rhythm, normal heart sounds GI/Abdominal exam: Present: soft, normal bowel sounds Extremities exam: Present: normal inspection, full ROM Back exam: Present: normal inspection, tenderness, other (Tenderness noted to the lower midline lumbar spine without any step-offs or deformities noted. There was also tenderness to the posterior right lower back) Neurological exam: Present: alert, oriented X3, CN II-XII intact Psychiatric exam: Present: normal affect, normal mood Skin exam: Present: warm, dry Course Vital Signs 01/25/22 01/25/22 18:18 21:51 Temperature 98 F Pulse Rate 91 71 Respiratory 16 18 Rate Blood Pressure 136/78 133/88 O2 Sat by Pulse 95 94 L Oximetry Medical Decision Making - Medical Decision Making The patient was seen and evaluated in the emergency department. Physical exam, the patient was resting in bed without any distress. The patient was ambulatory in the emergency department as well. Due to the nature the patient's complaints, the patient had an x-ray of the lumbar spine as well as the pelvis and right hip. The patient also received a lidocaine patch for pain relief. X- ray of the lumbar spine did show several compression deformities of the spine that looked acute to the radiologist however the pelvis x-ray was negative. Due to these findings, CT of the thoracic and lumbar spine was obtained. CT of the thoracic or lumbar spine showed multilevel spondylitic changes. There were mu ltilevel vertebroplasty and compression fractures. There was no definitive acute fracture noted. The lumbar spine is unchanged compared to the old exam. The thoracic spine is not significantly different than the old chest x-ray of 12/16/2021. The patient continued in weight throughout the room in the emergency department. The patient stated on reevaluation that his pain was improved with a lidocaine patches. The patient was deemed stable for discharge as the patient did not have any acute deformities or compression fractures at this time. The patient was given a prescription for lidocaine patches to be taken at home and told to follow-up with his primary care physician and previous surgeon for further workup and evaluation. The patient was agreeable to this and all his questions were answered. The patient was discharged home in stable condition with his son. - Lab Data Result diagrams: 01/25/22 21:19 01/25/22 21:19 Lab Results 01/25/22 01/25/22 01/25/22 Range/Units 21:19 21: 21:19 WBC 11.0 H (3.8-10.6) k/uL RBC 4.57 (4.30-5.90) m/uL Hgb 15.1 (13.0-17.5) gm/dL Hct 43.2 (39.0-53.0) % MCV 94.7 (80.0-100.0) fL MCH 33.0 (25.0-35.0) pg MCHC 34.8 (31.0-37.0) g/dL RDW 12.5 (11.5-15.5) % Plt Count 234 (150-450) k/uL MPV 8.8 Neutrophils % 67 % Lymphocytes % 20 % Monocytes % 8 % Eosinophils % 3 % Basophils % 1 % Neutrophils # 7.3 (1.3-7.7) k/uL Lymphocytes # 2.1 (1.0-4.8) k/uL Monocytes # 0.9 (0-1.0) k/uL Eosinophils # 0.4 (0-0.7) k/uL Basophils # 0.1 (0-0.2) k/uL PT 10.6 (9.0-12.0) sec INR 1.0 (<1.2) APTT 27.2 (22.0-30.0) sec Sodium 133 L (137-145) mmol/L Potassium 5.1 (3.5-5.1) mmol/L Chloride 105 (98-107) mmol/L Carbon Dioxide 21 L (22-30) mmol/L Anion Gap 7 mmol/L BUN 23 H (9-20) mg/dL Creatinine 1.37 H (0.66-1.25) mg/dL Est GFR (CKD-EPI)AfAm 58 (>60 ml/min/1.73 sqM) Est GFR (CKD-EPI)NonAf 50 (>60 ml/min/1.73 sqM) Glucose 93 (74-99) mg/dL Calcium 9.1 (8.4-10.2) mg/dL Total Bilirubin 0.8 (0.2-1.3) mg/dL AST 33 (17-59) U/L ALT 22 (4-49) U/L Alkaline Phosphatase 77 (38-126) U/L Total Protein 7.0 (6.3-8.2) g/dL Albumin 4.4 (3.5-5.0) g/dL Disposition Clinical Impression: Fall, Back pain, Compression fracture Disposition: HOME SELF-CARE Condition: Stable Instructions (If sedation given, give patient instructions): Vertebral Compression Fracture (ED), Back Pain (ED) Prescriptions: Lidocaine 5% Patch [Lidoderm 5% Patch] 1 patch TOPICAL DAILY 14 Days #14 patch Is patient prescribed a controlled substance at d/c from ED?: No Referrals: Fernando Lambert Jr, [Primary Care Provider] - 1-2 days Time of Disposition: 22:50
--- NOTE | 2022-01-25 19:48 | XR ---
EXAMINATION TYPE: XR Hip RT and AP Pelvis DATE OF EXAM: 01/25/2022 COMPARISON: NONE HISTORY: Pain TECHNIQUE: 3 views FINDINGS: The pelvic ring is intact. The proximal right femur and hip joint are intact. Hip joint spa ce is fairly normal. Sacroiliac joints are intact. IMPRESSION: No acute abnormality of the pelvis and right hip.
--- NOTE | 2022-01-25 19:50 | XR ---
EXAMINATION TYPE: XR lumbar spine 2 or 3V DATE OF EXAM: 01/25/2022 COMPARISON: 03/01/2019 HISTORY: Pain TECHNIQUE: 3 views FINDINGS: The lumbar vertebrae have fairly normal alignment. There is mild compression deformities of the lumbar vertebra up to 25%. There is vertebroplasty from T12 to L4. Posterior elements are intact . Sacroiliac joints are intact. IMPRESSION: Multiple compression fractures are new compared to old exam. Multilevel vertebroplasty. N o definite acute fracture.
[2022-01-25 21:27] LABS: Basophils # (A) 0.1 k/uL (0-0.2); Basophils % (A) 1 %; Eosinophils # (A) 0.4 k/uL (0-0.7); Eosinophils % (A) 3 %; HCT 43.2 % (39.0-53.0); HGB 15.1 gm/dL (13.0-17.5); Lymphocytes # (A) 2.1 k/uL (1.0-4.8); Lymphocytes % (A) 20 %; MCHC 34.8 g/dL (31.0-37.0); MCV 94.7 fL (80.0-100.0); Mean Platelet Volume 8.8; Monocytes # (A) 0.9 k/uL (0-1.0); Monocytes % (A) 8 %; Neutrophils # (A) 7.3 k/uL (1.3-7.7); Neutrophils % (A) 67 %; Platelet Count 234 k/uL (150-450); RBC 4.57 m/uL (4.30-5.90); RDW 12.5 % (11.5-15.5)
[2022-01-25 21:39] LABS: Albumin 4.4 g/dL (3.5-5.0); Calcium 9.1 mg/dL (8.4-10.2); Total Bilirubin 0.8 mg/dL (0.2-1.3)
[2022-01-25 21:44] LABS: Potassium 5.1 mmol/L (3.5-5.1)
[2022-01-25 21:51] VITALS: BP 133/88; PULSE 71; RESP 18
[2022-01-25 21:56] LABS: Partial Thromboplastin Time 27.2 sec (22.0-30.0); Prothrombin Time 10.6 sec (9.0-12.0)
--- NOTE | 2022-01-25 22:35 | CT ---
EXAMINATION TYPE: CT thor lumbar spine wo con DATE OF EXAM: 01/25/2022 COMPARISON: CT scan 01/17/2022 HISTORY: PT fell yesterday, back pain. CT DLP: 2452.6 mGycm Automated exposure control for dose reduction was used. Images obtained from the level of T1-S1 vertebra with no contrast. Thoracic and lumbar vertebra have normal alignment. There is multilevel vertebroplasty at L4 and L3 a nd L2 and L1 and T12 and T9 and T8. There is compression deformities up to almost 50%. No thoracic or lumbar paraspinal mass. The posterior elements are intact. No focal bone destruction. The sacroiliac joints are intact. IMPRESSION: Multilevel spondylotic changes. Multilevel vertebroplasty and compression fractures. No definite acut e fracture. Lumbar spine not changed compared to old exam. Thoracic spine not significantly different than on old chest x-ray of 12/16/2021.
== END 2022-01-25 23:31 | disposition home or self-care (01) ==
LOC: EC 18:15
DX: S32.009A Unspecified fracture of unspecified lumbar vertebra, initial encounter for closed fracture (principal); S22.009A Unspecified fracture of unspecified thoracic vertebra, initial encounter for closed fracture; J44.9 Chronic obstructive pulmonary disease, unspecified; K21.9 Gastro-esophageal reflux disease without esophagitis; I48.0 Paroxysmal atrial fibrillation; F17.200 Nicotine dependence, unspecified, uncomplicated; Z86.16 Personal history of COVID-19; Z91.040 Latex allergy status; Z98.890 Other specified postprocedural states; Z91.041 Radiographic dye allergy status; Z79.01 Long term (current) use of anticoagulants; Z79.51 Long term (current) use of inhaled steroids; Z79.899 Other long term (current) drug therapy; W01.0XXA Fall on same level from slipping, tripping and stumbling without subsequent striking against object, initial encounter; Y92.89 Other specified places as the place of occurrence of the external cause
CPT/HCPCS: 36415; 72100; 72128; 72131; 73502; 80053; 85025; 85610; 85730; 99284

== ENCOUNTER 2022-02-01 20:15 | Observation (INO) | payer MEDICARE ==
--- NOTE | 2022-02-01 22:38 | ED ---
SOB HPI - General Chief Complaint: Shortness of Breath Stated Complaint: KEERTHI Time Seen by Provider: 02/01/22 22:23 Source: patient, RN notes reviewed, old records reviewed, Caregiver Mode of arrival: ambulatory Limitations: no limitations - History of Present Illness Initial Comments: this is a 76-year-old male to the emergency department for evaluation. Patient resents today for evaluation of severe shortness of breath increased cough and congestion change in sputum production. No fevers. No chest pain. Recent hospital admission for COPD about a month ago. No fevers at home patient is given breathing treatmentsevery 4 hours without help MD Complaint: shortness of breath, cough, anxiety -: days(s) Radiation: back Severity: moderate Severity scale (1-10): 7 Quality: dull, aching Consistency: constant Improves With: nothing Worsens With: exertion, movement Known History Of: COPD Context: recent URI, recent illness Associated Symptoms: cough - Related Data Home Medications Medication Instructions Recorded Confirmed Tamsulosin HCl [Flomax] 0.4 mg PO BID 03/24/18 12/17/21 Apixaban [Eliquis] 5 mg PO BID 09/14/18 12/17/21 Metoprolol Tartrate [Lopressor] 50 mg PO BID 02/04/19 12/17/21 Ergocalciferol [Vitamin D2 1,250 mcg PO GROVES 05/05/19 12/17/21 (DRISDOL)] Alendronate Sodium [Fosamax] 70 mg PO GROVES 08/21/19 12/17/21 Budesonide/Formoterol Fumarate 2 puff INHALATION RT-BID 05/21/20 12/17/21 [Symbicort 160-4.5 Mcg Inhaler] Fluticasone Propion/Salmeterol 1 puff INHALATION RT-BID 04/07/21 12/17/21 [Advair 250-50 Diskus] Gabapentin [Neurontin] 100 mg PO BID 04/07/21 12/17/21 Albuterol Nebulized [Ventolin 2.5 mg INHALATION RT-Q4H PRN 09/20/21 12/17/21 Nebulized] Albuterol Inhaler [Ventolin Hfa 2 puff INHALATION RT-Q6H PRN 11/17/21 12/17/21 Inhaler] Doxazosin [Cardura] 4 mg PO DAILY 11/17/21 12/17/21 Ipratropium Nebulized [Atrovent 0.5 mg INHALATION RT-Q4H PRN 11/17/21 12/17/21 Nebulized 0.2 MG/ML] Previous Rx's Medication Instructions Recorded Ipratropium-Albuterol Nebulize 3 ml INHALATION RT-QID PRN 30 Days 11/19/21 [Duoneb 0.5 mg-3 mg/3 ml Soln] #100 units Famotidine [Pepcid] 20 mg PO BID #60 tablet 12/18/21 cefUROXime axetiL [Ceftin] 500 mg PO BID 5 Days #10 tab 12/18/21 predniSONE 10 mg PO DIRECTED #30 tab 12/18/21 Lidocaine 5% Patch [Lidoderm 5% 1 patch TOPICAL DAILY 14 Days #14 01/25/22 Patch] patch Allergies Allergy/AdvReac Type Severity Reaction Status Date / Time Iodinated Contrast Media Allergy Rash/Hives Verified 02/01/22 22:15 [Iodinated Contrast- Oral and IV Dye] latex Allergy Rash/Hives Verified 02/01/22 22:15 Review of Systems ROS Statement: Those systems with pertinent positive or pertinent negative responses have been documented in the HPI. ROS Other: All systems not noted in ROS Statement are negative. Past Medical History Past Medical History: Atrial Fibrillation, Atrial Flutter, COPD, GERD/Reflux, Pneumonia, Prostate Disorder Additional Past Medical History / Comment(s): Paroxysmal Afib, bronchitis, BPH, constipation, vertigo, chronic low back pain/DDD. covid 06/22 History of Any Multi-Drug Resistant Organisms: None Reported Past Surgical History: Back Surgery Additional Past Surgical History / Comment(s): Bilateral cataract removals-lens implants, colonoscopy, multiple kyphoplasties. Past Anesthesia/Blood Transfusion Reactions: No Reported Reaction Additional Past Anesthesia/Blood Transfusion Reaction / Comment(s): Has never received any blood transfusions. Past Psychological History: No Psychological Hx Reported Smoking Status: Current every day smoker Past Alcohol Use History: None Reported Past Drug Use History: None Reported - Past Family History Mother Family Medical History: AFIB, Dementia Father Family Medical History: Myocardial Infarction ([place]) Additional Family Medical History / Comment(s): in his 70's [place] General Exam Limitations: no limitations General appearance: anxious, cachectic Head exam: Present: atraumatic, normocephalic, normal inspection Eye exam: Present: normal appearance, PERRL, EOMI. Absent: scleral icterus, conjunctival injection, periorbital swelling ENT exam: Present: normal exam, mucous membranes moist Neck exam: Present: normal inspection. Absent: tenderness, meningismus, lymphadenopathy Respiratory exam: Present: respiratory distress, wheezes, accessory muscle use, decreased breath sounds, prolonged expiratory. Absent: rales, rhonchi, stridor Cardiovascular Exam: Present: regular rate, normal rhythm, normal heart sounds. Absent: systolic murmur, diastolic murmur, rubs, gallop, clicks GI/Abdominal exam: Present: soft, normal bowel sounds. Absent: distended, tenderness, guarding, rebound, rigid Extremities exam: Present: normal inspection, full ROM, normal capillary refill. Absent: tenderness, pedal edema, joint swelling, calf tenderness Back exam: Present: normal inspection Neurological exam: Present: alert, oriented X3, CN II-XII intact Psychiatric exam: Present: normal affect, normal mood Skin exam: Present: warm, dry, intact, normal color. Absent: rash Course Vital Signs 02/01/22 02/01/22 22:11 22:59 Temperature 98.4 F Pulse Rate 92 89 Respiratory 20 Rate Blood Pressure 133/80 154/82 O2 Sat by Pulse 91 L 94 L Oximetry - Reevaluation(s) Reevaluation #1: 02/01/22 23:45 medical records reviewed Reevaluation #2: 02/01/22 23:45 patient informed of results and questions answered Reevaluation #3: 02/01/22 23:45 patient has no significant improvement here in the ER - Consultations Consultation #1: spoke with Dr. Fong agrees to admit this patient Medical Decision Making - Medical Decision Making 36 male DF for evaluation of significant COPD. Patient has severe COPD needing supplemental O2 for normal oxygenation. We'll admit for COPD with hypoxia - Lab Data Result diagrams: 02/01/22 22:32 02/01/22 22:32 Lab Results 02/01/22 02/01/22 02/01/22 Range/Units 22:19 22:19 22:32 WBC 14.2 H (3.8-10.6) k/uL RBC 4.39 (4.30-5.90) m/uL Hgb 15.2 (13.0-17.5) gm/dL Hct 42.2 (39.0-53.0) % MCV 96.2 (80.0-100.0) fL MCH 34.7 (25.0-35.0) pg MCHC 36.0 (31.0-37.0) g/dL RDW 12.8 (11.5-15.5) % Plt Count 195 (150-450) k/uL MPV 9.1 Neutrophils % 75 % Lymphocytes % 13 % Monocytes % 7 % Eosinophils % 3 % Basophils % 1 % Neutrophils # 10.7 H (1.3-7.7) k/uL Lymphocytes # 1.8 (1.0-4.8) k/uL Monocytes # 1.0 (0-1.0) k/uL Eosinophils # 0.4 (0-0.7) k/uL Basophils # 0.1 (0-0.2) k/uL PT (9.0-12.0) sec INR (<1.2) APTT (22.0-30.0) sec Sodium (137-145) mmol/L Potassium (3.5-5.1) mmol/L Chloride (98-107) mmol/L Carbon Dioxide (22-30) mmol/L Anion Gap mmol/L BUN (9-20) mg/dL Creatinine (0.66-1.25) mg/dL Est GFR (CKD-EPI)AfAm (>60 ml/min/1.73 sqM) Est GFR (CKD-EPI)NonAf (>60 ml/min/1.73 sqM) Glucose (74-99) mg/dL Plasma Lactic Acid Santi (0.7-2.0) mmol/L Calcium (8.4-10.2) mg/dL Phosphorus (2.5-4.5) mg/dL Magnesium (1.6-2.3) mg/dL Total Bilirubin (0.2-1.3) mg/dL AST (17-59) U/L ALT (4-49) U/L Alkaline Phosphatase (38-126) U/L Troponin I (0.000-0.034) ng/mL Total Protein (6.3-8.2) g/dL Albumin (3.5-5.0) g/dL Coronavirus (PCR) Not Detected (Not Detectd) Influenza Type A RNA Not Detected (Not Detectd) Influenza Type B (PCR) Not Detected (Not Detectd) 02/01/22 02/01/22 02/01/22 Range/Units 22:32 22:32 22:32 WBC (3.8-10.6) k/uL RBC (4.30-5.90) m/uL Hgb (13.0-17.5) gm/dL Hct (39.0-53.0) % MCV (80.0-100.0) fL MCH (25.0-35.0) pg MCHC (31.0-37.0) g/dL RDW (11.5-15.5) % Plt Count (150-450) k/uL MPV Neutrophils % % Lymphocytes % % Monocytes % % Eosinophils % % Basophils % % Neutrophils # (1.3-7.7) k/uL Lymphocytes # (1.0-4.8) k/uL Monocytes # (0-1.0) k/uL Eosinophils # (0-0.7) k/uL Basophils # (0-0.2) k/uL PT 10.3 (9.0-12.0) sec INR 1.0 (<1.2) APTT 26.4 (22.0-30.0) sec Sodium 139 (137-145) mmol/L Potassium 4.3 (3.5-5.1) mmol/L Chloride 108 H (98-107) mmol/L Carbon Dioxide 23 (22-30) mmol/L Anion Gap 8 mmol/L BUN 31 H (9-20) mg/dL Creatinine 1.08 (0.66-1.25) mg/dL Est GFR (CKD-EPI)AfAm 77 (>60 ml/min/1.73 sqM) Est GFR (CKD-EPI)NonAf 66 (>60 ml/min/1.73 sqM) Glucose 89 (74-99) mg/dL Plasma Lactic Acid Santi 1.1 (0.7-2.0) mmol/L Calcium 9.2 (8.4-10.2) mg/dL Phosphorus 4.2 (2.5-4.5) mg/dL Magnesium 2.0 (1.6-2.3) mg/dL Total Bilirubin 0.6 (0.2-1.3) mg/dL AST 19 (17-59) U/L ALT 17 (4-49) U/L Alkaline Phosphatase 83 (38-126) U/L Troponin I (0.000-0.034) ng/mL Total Protein 6.7 (6.3-8.2) g/dL Albumin 4.3 (3.5-5.0) g/dL Coronavirus (PCR) (Not Detectd) Influenza Type A RNA (Not Detectd) Influenza Type B (PCR) (Not Detectd) 02/01/22 Range/Units 22:32 WBC (3.8-10.6) k/uL RBC (4.30-5.90) m/uL Hgb (13.0-17.5) gm/dL Hct (39.0-53.0) % MCV (80.0-100.0) fL MCH (25.0-35.0) pg MCHC (31.0-37.0) g/dL RDW (11.5-15.5) % Plt Count (150-450) k/uL MPV Neutrophils % % Lymphocytes % % Monocytes % % Eosinophils % % Basophils % % Neutrophils # (1.3-7.7) k/uL Lymphocytes # (1.0-4.8) k/uL Monocytes # (0-1.0) k/uL Eosinophils # (0-0.7) k/uL Basophils # (0-0.2) k/uL PT (9.0-12.0) sec INR (<1.2) APTT (22.0-30.0) sec Sodium (137-145) mmol/L Potassium (3.5-5.1) mmol/L Chloride (98-107) mmol/L Carbon Dioxide (22-30) mmol/L Anion Gap mmol/L BUN (9-20) mg/dL Creatinine (0.66-1.25) mg/dL Est GFR (CKD-EPI)AfAm (>60 ml/min/1.73 sqM) Est GFR (CKD-EPI)NonAf (>60 ml/min/1.73 sqM) Glucose (74-99) mg/dL Plasma Lactic Acid Santi (0.7-2.0) mmol/L Calcium (8.4-10.2) mg/dL Phosphorus (2.5-4.5) mg/dL Magnesium (1.6-2.3) mg/dL Total Bilirubin (0.2-1.3) mg/dL AST (17-59) U/L ALT (4-49) U/L Alkaline Phosphatase (38-126) U/L Troponin I <0.012 (0.000-0.034) ng/mL Total Protein (6.3-8.2) g/dL Albumin (3.5-5.0) g/dL Coronavirus (PCR) (Not Detectd) Influenza Type A RNA (Not Detectd) Influenza Type B (PCR) (Not Detectd) - EKG Data -: EKG Interpreted by Me (EKG is sinus 85 [place] 179 QRS 88 QTc 392) - Radiology Data Radiology results: report reviewed (chest x-rays negative for acute disease), im age reviewed Disposition Clinical Impression: COPD with acute exacerbation, COPD exacerbation, Smoker, Atrial fibrillation, Acute exacerbation of chronic obstructive airways disease, Hypoxia Disposition: ADMITTED IP TO THIS HOSP Condition: Serious Is patient prescribed a controlled substance at d/c from ED?: No Referrals: Fernando Lambert Jr, [Primary Care Provider] - 1-2 days Time of Disposition: 23:45
[2022-02-01] MEDS ORDERED: IPRATROPIUM-ALBUTEROL 3 ML NEB INHALATION STA ×2 (22:39→23:42)
[2022-02-01] MEDS ORDERED: methylPREDNISolone SOD SUCCI 125 MG/2 ML VIAL IV STA (22:39)
--- NOTE | 2022-02-01 22:44 | XR ---
EXAMINATION TYPE: XR chest 1V portable DATE OF EXAM: 02/01/2022 COMPARISON: 12/16/2021 HISTORY: Chest pain TECHNIQUE: Single view FINDINGS: Heart is normal. Lungs are clear of consolidation. There are no hilar masses. There is mult ilevel thoracic and lumbar vertebroplasty. Costophrenic angles are clear IMPRESSION: No active cardiopulmonary disease. Normal heart. Mild pulmonary interstitial fibrosis. No change.
[2022-02-01 23:00] LABS: Basophils # (A) 0.1 k/uL (0-0.2); Basophils % (A) 1 %; Eosinophils # (A) 0.4 k/uL (0-0.7); Eosinophils % (A) 3 %; HCT 42.2 % (39.0-53.0); HGB 15.2 gm/dL (13.0-17.5); Lymphocytes # (A) 1.8 k/uL (1.0-4.8); Lymphocytes % (A) 13 %; MCH 34.7 pg (25.0-35.0); MCV 96.2 fL (80.0-100.0); Mean Platelet Volume 9.1; Monocytes % (A) 7 %; Neutrophils # (A) 10.7 k/uL (1.3-7.7); Neutrophils % (A) 75 %; Platelet Count 195 k/uL (150-450); RBC 4.39 m/uL (4.30-5.90); RDW 12.8 % (11.5-15.5); WBC 14.2 k/uL (3.8-10.6)
[2022-02-01 23:08] LABS: Partial Thromboplastin Time 26.4 sec (22.0-30.0); Prothrombin Time 10.3 sec (9.0-12.0)
[2022-02-01 23:09] LABS: Albumin 4.3 g/dL (3.5-5.0); Calcium 9.2 mg/dL (8.4-10.2); Phosphorus 4.2 mg/dL (2.5-4.5); Potassium 4.3 mmol/L (3.5-5.1); Total Bilirubin 0.6 mg/dL (0.2-1.3); Total Protein 6.7 g/dL (6.3-8.2)
[2022-02-01] MEDS ORDERED: NALOXONE 0.4 MG/ML 1 ML VIAL IVP PRN (23:42)
[2022-02-02] MEDS: ALBUTEROL NEBULIZED 2.5 MG/3 ML INHALATION SCH ×5 (02:52→16:04)
[2022-02-02] MEDS: methylPREDNISolone SOD SUCCI 125 MG/2 ML VIAL IV SCH ×2 (07:06→11:37)
[2022-02-02] MEDS ORDERED: AZITHROMYCIN 500 MG TAB PO SCH (09:00)
[2022-02-02 12:01] VITALS: TEMP 97.6
[2022-02-02 14:03] VITALS: BP 119/75; RESP 18
[2022-02-02] MEDS ORDERED: LIDOCAINE 5% PATCH TOPICAL SCH (14:30)
[2022-02-02 16:14] VITALS: PULSE 96
--- NOTE | 2022-02-02 18:24 | P.HPIM ---
History of Present Illness H&P Date: 02/02/22 History and Physical and Discharge Summary: This is 76-year-old white male with known COPD and an ongoing nicotine dependence., Presented with to the ER with worsening shortness of breath. Chest x-ray reported no active cardiopulmonary disease, normal heart, pulmonary interstitial fibrosis, no change. Received aggressive pulmonary toileting with nebulized bronchodilators, antibiotics ,IV steroids and supplemental O2 at 2 L nasal cannula. Significant clinical improvement. Maintaining O2 sats in the 90s on room air. Ambulating in room, tolerating exertion well. Occasional nonproductive cough. Denies chest pain, palpitations. Afebrile,VSS, leger virus, influenza A and B not detected. Creatinine 1.37 on admission, improved, at baseline at 1.08. Review of Systems ROS Statement: Those systems with pertinent positive or pertinent negative responses have been documented in the HPI. ROS Other: All systems not noted in ROS Statement are negative. Past Medical History Past Medical History: Atrial Fibrillation, Atrial Flutter, COPD, GERD/Reflux, Pneumonia, Prostate Disorder Additional Past Medical History / Comment(s): Paroxysmal Afib, bronchitis, BPH, constipation, vertigo, chronic low back pain/DDD. covid 06/22 History of Any Multi-Drug Resistant Organisms: None Reported Past Surgical History: Back Surgery Additional Past Surgical History / Comment(s): Bilateral cataract removals-lens implants, colonoscopy, multiple kyphoplasties. Past Anesthesia/Blood Transfusion Reactions: No Reported Reaction Additional Past Anesthesia/Blood Transfusion Reaction / Comment(s): Has never received any blood transfusions. Past Psychological History: No Psychological Hx Reported Additional Psychological History / Comment(s): Pt resides with his son, (Damien son) and grandson. They live in a trailer. Pt manages his own medications. He has a nebulizer. His son cooks and drives pt to [employer]. Pt uses a walker/wheelchair. He has a nebulizer. Smoking Status: Current every day smoker Past Alcohol Use History: None Reported Additional Past Alcohol Use History / Comment(s): Pt started smoking age [age]) got up to 5 ppd for many years then cut down to 3 ppd, currently smoking 1 ppd. Past Drug Use History: None Reported - Past Family History Mother Family Medical History: AFIB, Dementia Father Family Medical History: Myocardial Infarction ([place]) Additional Family Medical History / Comment(s): in his 70's [place] Medications and Allergies Home Medications Medication Instructions Recorded Confirmed Type Tamsulosin HCl [Flomax] 0.4 mg PO BID 03/24/18 02/02/22 History Apixaban [Eliquis] 5 mg PO BID 09/14/18 02/02/22 History Metoprolol Tartrate [Lopressor] 50 mg PO BID 02/04/19 02/02/22 History Ergocalciferol [Vitamin D2 1,250 mcg PO GROVES 05/05/19 02/02/22 History (DRISDOL)] Alendronate Sodium [Fosamax] 70 mg PO GROVES 08/21/19 02/02/22 History Budesonide/Formoterol Fumarate 2 puff INHALATION RT-BID 05/21/20 02/02/22 History [Symbicort 160-4.5 Mcg Inhaler] Fluticasone Propion/Salmeterol 1 puff INHALATION RT-BID 04/07/21 02/02/22 History [Advair 250-50 Diskus] Gabapentin [Neurontin] 100 mg PO BID 04/07/21 02/02/22 History Albuterol Nebulized [Ventolin 2.5 mg INHALATION RT-Q4H PRN 09/20/21 02/02/22 History Nebulized] Albuterol Inhaler [Ventolin Hfa 2 puff INHALATION RT-Q6H PRN 11/17/21 02/02/22 History Inhaler] Ipratropium Nebulized [Atrovent 0.5 mg INHALATION RT-Q4H PRN 11/17/21 02/02/22 History Nebulized 0.2 MG/ML] Famotidine [Pepcid] 20 mg PO BID #60 tablet 12/18/21 02/02/22 Rx Lidocaine 5% Patch [Lidoderm 5% 1 patch TOPICAL DAILY 14 Days #14 01/25/22 02/02/22 Rx Patch] patch Azithromycin [Zithromax Z Pack] 1 tab PO DIRECTED #6 tab 02/02/22 Rx predniSONE 10 mg PO DIRECTED #30 tab 02/02/22 Rx Allergies Allergy/AdvReac Type Severity Reaction Status Date / Time Iodinated Contrast Media Allergy Rash/Hives Verified 02/02/22 07:58 [Iodinated Contrast- Oral and IV Dye] latex Allergy Rash/Hives Verified 02/02/22 07:58 Physical Exam Vitals: Vital Signs Temp Pulse Pulse Resp BP BP Pulse Ox 02/02/22 16:14 96 02/02/22 16:04 92 02/02/22 14:02 97.6 F 59 L 18 119/75 96 02/02/22 12:14 96 02/02/22 12:00 97.6 F 96 85 19 128/77 96 02/02/22 11:43 97.5 F L 74 20 112/73 02/02/22 09:15 98.0 F 96 20 124/85 95 02/02/22 07:42 93 02/02/22 07:27 100 92 L 02/02/22 07:15 98.5 F 96 22 122/79 97 02/02/22 04:23 97 02/02/22 04:03 93 02/02/22 00:33 97 02/01/22 23:55 55 L 02/01/22 22:59 89 154/82 94 L 02/01/22 22:11 98.4 F 92 20 133/80 91 L Intake and Output 02/02/22 02/02/22 02/02/22 06:59 14:59 22:59 Other: # Voids 1 Weight 74.843 kg GENERAL: Thin male and in no acute distress, ambulating in room. HEAD: Atraumatic, normocephalic. EYES: Pupils equal round and reactive to light, extraocular movements intact, sclera anicteric, conjunctiva are normal. ENT:nares patent, oropharynx clear without exudates. Moist mucous membranes. NECK: Normal range of motion, supple without lymphadenopathy or JVD, no thy romegaly LUNGS: Breath sounds coarse with bilateral rhonchi and decreased air exchange consistent with his underlying COPD. HEART: Regular rate and rhythm without murmurs, rubs or gallops.S1S2 Normal ABDOMEN: Soft, nontender, normoactive bowel sounds. No guarding, no rebound. No masses appreciated. EXTREMITIES: Normal range of motion, no pitting or edema. No clubbing or cyanosis. NEUROLOGICAL: Cranial nerves II through XII grossly intact. PSYCH: Normal mood, normal affect. SKIN: Warm, Dry, normal turgor, greenish bruising noted on mid lower back. Results CBC & Chem 7: 02/01/22 22:32 12/01/22 22:32 Labs: Abnormal Lab Results - Last 24 Hours (Table) 02/01/22 02/01/22 Range/Units 22:32 22:32 WBC 14.2 H (3.8-10.6) k/uL Neutrophils # 10.7 H (1.3-7.7) k/uL Chloride 108 H (98-107) mmol/L BUN 31 H (9-20) mg/dL Assessment and Plan Assessment: (1) Acute hypercapnic respiratory failure Current Visit: No Status: Acute Code(s): J96.02 - ACUTE RESPIRATORY FAILURE WITH HYPERCAPNIA SNOMED Code(s): 695891949 (2) Acute exacerbation of chronic obstructive airways disease Current Visit: No Status: Acute Code(s): J44.1 - CHRONIC OBSTRUCTIVE PULM ONARY DISEASE W (ACUTE) EXACERBATION SNOMED Code(s): 722185403 (3) COPD with acute exacerbation Current Visit: Yes Status: Acute Code(s): J44.1 - CHRONIC OBSTRUCTIVE PULMONARY DISEASE W (ACUTE) EXACERBATION SNOMED Code(s): 904027947 (4) Atrial fibrillation,chronic Current Visit: No Status: Acute Code(s): I48.91 - UNSPECIFIED ATRIAL FIBRILLATION SNOMED Code(s): 65394721 (5) BPH (benign prostatic hyperplasia) Current Visit: No Status: Acute Code(s): N40.0 - BENIGN PROSTATIC HYPERPLASIA WITHOUT LOWER URINRY TRACT SYMP SNOMED Code(s): 197756464 (6) longterm (current) use of anticoagulants Current Visit: No Status: Acute Code(s): Z79.01 - SENIOR CARE (CURRENT) USE OF ANTICOAGULANTS SNOMED Code(s): 482951970 (7) Smoker, counseling provided, patient has no intentions of quitting Current Visit: No Status: Acute Code(s): F17.200 - NICOTINE DEPENDENCE, UNSPECIFIED, UNCOMPLICATED SNOMED Code(s): 49204951 (8) recent fall 01/25/22, multilevel vertebralplasty and compression fractures reported per CT, no definite acute fracture, lumbar spine not changed compared to prior exam, thoracic spine not significantly different than prior x-ray. Patient was discharged from ER, advised to follow-up with orthopedics outpatient. Discharge Medication List Tamsulosin HCl [Flomax] 0.4 mg PO BID 03/24/18 [History] Apixaban [Eliquis] 5 mg PO BID 09/14/18 [History] Metoprolol Tartrate [Lopressor] 50 mg PO BID 02/04/19 [History] Ergocalciferol [Vitamin D2 (DRISDOL)] 1,250 mcg PO GROVES 05/05/19 [History] Alendronate Sodium [Fosamax] 70 mg PO GROVES 08/21/19 [History] Budesonide/Formoterol Fumarate [Symbicort 160-4.5 Mcg Inhaler] 2 puff INHALATION RT-BID 05/21/20 [History] Fluticasone Propion/Salmeterol [Advair 250-50 Diskus] 1 puff INHALATION RT-BID 04/07/21 [History] Gabapentin [Neurontin] 100 mg PO BID 04/07/21 [History] Albuterol Nebulized [Ventolin Nebulized] 2.5 mg INHALATION RT-Q4H PRN 09/20/21 [History] Albuterol Inhaler [Ventolin Hfa Inhaler] 2 puff INHALATION RT-Q6H PRN 11/17/21 [History] Ipratropium Nebulized [Atrovent Nebulized 0.2 MG/ML] 0.5 mg INHALATION RT-Q4H PRN 11/17/21 [History] Famotidine [Pepcid] 20 mg PO BID #60 tablet 12/18/21 [Rx] Lidocaine 5% Patch [Lidoderm 5% Patch] 1 patch TOPICAL DAILY 14 Days #14 patch 01/25/22 [Rx] Azithromycin [Zithromax Z Pack] 1 tab PO DIRECTED #6 tab 02/02/22 [Rx] predniSONE 10 mg PO DIRECTED #30 tab 02/02/22 [Rx] Plan: Continue on current medication regime ,monitoring and symptomatic treatment. Maintained on nebulized bronchodilators, IV steroids and antibio tics. Patient will be discharged home today in a stable condition with guarded prognosis pending physical therapy evaluation. Follow-up outpatient with orthopedic spine next week. Smoking cessation reinforced. The impression and plan of care has been dictated as directed. : I performed a history and examination of this patient, discussed the same with the dictator. I agree with the dictator's note ,documented as a scribe. Any additional findings or plans will be noted.
[2022-02-02] MEDS ORDERED: SYMBICORT 160-4.5 MCG INHALER INHALATION SCH (20:00)
[2022-02-02] MEDS ORDERED: NON FORMULARY DRUG (Fluticasone Propion/Salmeterol [Advair 250-50 Diskus] 1 EACH Each) INHALATION SCH (20:00)
[2022-02-02] MEDS ORDERED: METOPROLOL TARTRATE 50 MG TAB PO SCH (21:00)
[2022-02-02] MEDS ORDERED: APIXABAN 5 MG TAB PO SCH (21:00)
[2022-02-02] MEDS ORDERED: GABAPENTIN 100 MG CAP PO SCH (21:00)
[2022-02-02] MEDS ORDERED: FAMOTIDINE 20 MG TAB PO SCH (21:00)
[2022-02-02] MEDS ORDERED: TAMSULOSIN 0.4 MG CAP.ER.24H PO SCH (21:00)
[2022-02-04] MEDS ORDERED: NON FORMULARY DRUG (Ergocalciferol 50,000 UNIT Cap) PO SCH (09:00)
== END 2022-02-02 17:45 | disposition home health service (06) ==
LOC: EC 20:15 → 6NMEDSUR 23:44
PROVIDERS: ADMIT Family Medicine; ATTEND Family Medicine
DX: J96.02 Acute respiratory failure with hypercapnia (principal); J44.1 Chronic obstructive pulmonary disease with (acute) exacerbation; I48.0 Paroxysmal atrial fibrillation; K21.9 Gastro-esophageal reflux disease without esophagitis; N40.0 Benign prostatic hyperplasia without lower urinary tract symptoms; F17.200 Nicotine dependence, unspecified, uncomplicated; J84.10 Pulmonary fibrosis, unspecified; Z79.01 Long term (current) use of anticoagulants; Z79.83 Long term (current) use of bisphosphonates; Z79.51 Long term (current) use of inhaled steroids; Z91.041 Radiographic dye allergy status; Z79.899 Other long term (current) drug therapy; Z91.040 Latex allergy status; Z98.42 Cataract extraction status, left eye; Z98.41 Cataract extraction status, right eye; Z96.1 Presence of intraocular lens; Z82.49 Family history of ischemic heart disease and other diseases of the circulatory system; Z82.0 Family history of epilepsy and other diseases of the nervous system; Z20.822 Contact with and (suspected) exposure to COVID-19
CPT/HCPCS: 96376; 96374; 99285; 36415; 94640 ×3; 94760; 93005; 97162; 80053; 83605; 83735; 84100; 84484; 85025; 85610; 85730; 87502; 87635; 71045; G0378; J2930

== ENCOUNTER 2022-03-08 20:07 | Observation (INO) | payer MEDICARE ==
--- NOTE | 2022-03-08 21:46 | XR ---
EXAMINATION: XR chest 2V: 03/08/2022 9:21 PM CLINICAL INDICATION: difficulty breathing TECHNIQUE: Frontal and lateral views COMPARISON: 02/01/2022 AP upright portable FINDINGS: There is an ill-defined added reticulation throughout the lungs, which mildly silhouettes the bilater al pulmonary vasculature in the mid and lower lung zones. This is associated with mild bilateral leo hilar haze and ill-defined opacities in the perihilar position. The pattern suggests infection/inflam mation as etiology, but clinical exclusion of pulmonary edema is requested. The pleural spaces are negative. The cardiac silhouette is not enlarged. The remainder of the mediastinal silhouette is unremarkable. The skeletal structures and soft tissues are negative for acute findings. IMPRESSION: Suspect multifocal infection.
[2022-03-08 22:12] LABS: Basophils % (A) 0 %; Eosinophils # (A) 0.1 k/uL (0-0.7); Eosinophils % (A) 1 %; HCT 43.3 % (39.0-53.0); HGB 14.9 gm/dL (13.0-17.5); Lymphocytes # (A) 0.8 k/uL (1.0-4.8); Lymphocytes % (A) 10 %; MCH 33.3 pg (25.0-35.0); MCHC 34.5 g/dL (31.0-37.0); MCV 96.4 fL (80.0-100.0); Mean Platelet Volume 7.9; Monocytes # (A) 0.5 k/uL (0-1.0); Monocytes % (A) 7 %; Neutrophils % (A) 80 %; Platelet Count 186 k/uL (150-450); RBC 4.49 m/uL (4.30-5.90); RDW 12.6 % (11.5-15.5); WBC 7.5 k/uL (3.8-10.6)
[2022-03-08 22:26] LABS: ALT 25 U/L (4-49); AST 20 U/L (17-59); African American GFR (CKD) >90 (>60 ml/min/1.73 sqM); Albumin 3.9 g/dL (3.5-5.0); Alkaline Phosphatase 64 U/L (38-126); Anion Gap 5 mmol/L; Blood Urea Nitrogen 19 mg/dL (9-20); Carbon Dioxide 27 mmol/L (22-30); Chloride 106 mmol/L (98-107); Glucose 102 mg/dL (74-99); Non-African American GFR(CKD) 86 (>60 ml/min/1.73 sqM); Potassium 4.4 mmol/L (3.5-5.1); Sodium 138 mmol/L (137-145); Total Bilirubin 0.6 mg/dL (0.2-1.3); Total Protein 6.4 g/dL (6.3-8.2)
[2022-03-08 22:36] LABS: INR 0.9 (<1.2); Partial Thromboplastin Time 24.9 sec (22.0-30.0)
[2022-03-09] MEDS ORDERED: dexAMETHasone 2 MG TAB PO STA (00:42)
[2022-03-09] MEDS ORDERED: ALBUTEROL NEBULIZED 2.5 MG/3 ML INHALATION STA (00:42)
[2022-03-09] MEDS ORDERED: IPRATROPIUM 0.5 MG/2.5 ML NEBU INHALATION STA (00:42)
[2022-03-09] MEDS ORDERED: NALOXONE 0.4 MG/ML 1 ML VIAL IV PRN (02:19)
--- NOTE | 2022-03-09 02:26 | ED ---
General Adult HPI - General Chief complaint: Shortness of Breath Stated complaint: KEERTHI Time Seen by Provider: 03/09/22 00:19 Source: patient Mode of arrival: ambulatory Limitations: no limitations - History of Present Illness Initial comments: This is a 76-year-old male with a past medical history including COPD and hypertension presented to the emergency department for increasing shortness of breath over the last 3 days. The patient has noted that he has had increasing nasal congestion and cough associated with increased shortness of breath over th e last 3 days. The patient denied any other acute pain or complaints denied any fevers and chills. The patient was an overall poor historian but did not complain of any further pain or distress. The patient denied any nausea, vomiting, fevers and chills. - Related Data Home Medications Medication Instructions Recorded Confirmed Tamsulosin HCl [Flomax] 0.4 mg PO BID 03/24/18 02/02/22 Apixaban [Eliquis] 5 mg PO BID 09/14/18 02/02/22 Metoprolol Tartrate [Lopressor] 50 mg PO BID 02/04/19 02/02/22 Ergocalciferol [Vitamin D2 1,250 mcg PO GROVES 05/05/19 02/02/22 (DRISDOL)] Alendronate Sodium [Fosamax] 70 mg PO GROVES 08/21/19 02/02/22 Budesonide/Formoterol Fumarate 2 puff INHALATION RT-BID 05/21/20 02/02/22 [Symbicort 160-4.5 Mcg Inhaler] Fluticasone Propion/Salmeterol 1 puff INHALATION RT-BID 04/07/21 02/02/22 [Advair 250-50 Diskus] Gabapentin [Neurontin] 100 mg PO BID 04/07/21 02/02/22 Albuterol Nebulized [Ventolin 2.5 mg INHALATION RT-Q4H PRN 09/20/21 02/02/22 Nebulized] Albuterol Inhaler [Ventolin Hfa 2 puff INHALATION RT-Q6H PRN 11/17/21 02/02/22 Inhaler] Ipratropium Nebulized [Atrovent 0.5 mg INHALATION RT-Q4H PRN 11/17/21 02/02/22 Nebulized 0.2 MG/ML] Previous Rx's Medication Instructions Recorded Famotidine [Pepcid] 20 mg PO BID #60 tablet 12/18/21 Lidocaine 5% Patch [Lidoderm 5% 1 patch TOPICAL DAILY 14 Days #14 01/25/22 Patch] patch Azithromycin [Zithromax Z Pack] 1 tab PO DIRECTED #6 tab 02/02/22 predniSONE 10 mg PO DIRECTED #30 tab 02/02/22 Allergies Allergy/AdvReac Type Severity Reaction Status Date / Time Iodinated Contrast Media Allergy Rash/Hives Verified 02/02/22 07:58 [Iodinated Contrast- Oral and IV Dye] latex Allergy Rash/Hives Verified 02/02/22 07:58 Review of Systems ROS Statement: Those systems with pertinent positive or pertinent negative responses have been documented in the HPI. ROS Other: All systems not noted in ROS Statement are negative. Past Medical History Past Medical History: Atrial Fibrillation, Atrial Flutter, COPD, GERD/Reflux, Pneumonia, Prostate Disorder Additional Past Medical History / Comment(s): Paroxysmal Afib, bronchitis, BPH, constipation, vertigo, chronic low back pain/DDD. covid 06/22 History of Any Multi-Drug Resistant Organisms: None Reported Past Surgical History: Back Surgery Additional Past Surgical History / Comment(s): Bilateral cataract removals-lens implants, colonoscopy, multiple kyphoplasties. Past Anesthesia/Blood Transfusion Reactions: No Reported Reaction Additional Past Anesthesia/Blood Transfusion Reaction / Comment(s): Has never received any blood transfusions. Past Psychological History: No Psychological Hx Reported Smoking Status: Current every day smoker Past Alcohol Use History: None Reported Past Drug Use History: None Reported - Past Family History Mother Family Medical History: AFIB, Dementia Father Family Medical History: Myocardial Infarction ([place]) Additional Family Medical History / Comment(s): in his 70's [place] General Exam Limitations: no limitations General appearance: alert, in no apparent distress Head exam: Present: atraumatic, normocephalic, normal inspection Eye exam: Present: normal appearance, PERRL Pupils: Present: normal accommodation ENT exam: Present: normal exam, normal oropharynx, mucous membranes moist Neck exam: Present: normal inspection, full ROM Respiratory exam: Present: wheezes, decreased breath sounds Cardiovascular Exam: Present: regular rate, normal rhythm, normal heart sounds GI/Abdominal exam: Present: soft, normal bowel sounds Extremities exam: Present: normal inspection, full ROM, normal capillary refill Back exam: Present: normal inspection, full ROM Neurological exam: Present: alert, oriented X3, CN II-XII intact Psychiatric exam: Present: normal affect, normal mood Skin exam: Present: warm, dry Course Vital Signs 03/08/22 03/09/22 03/09/22 21:02 00:30 01:40 Temperature 98 F Pulse Rate 92 82 84 Respiratory 24 20 Rate Blood Pressure 128/66 133/91 O2 Sat by Pulse 95 95 Oximetry EKG Findings - EKG Comments: EKG Findings:: An EKG was obtained was interpreted by myself. EKG showed a rate of 75, LA interval 177, QRS duration of 85 and QTC of 393. This EKG showed a normal sinus rhythm with no ST segment elevation or depression noted. Medical Decision Making - Medical Decision Making Was pt. sent in by a medical professional or institution (, PA, FIELD SUPPORT ENGINEER, urgent care, hospital, or prison...) When possible be specific @ -No Did you speak to anyone other than the patient for history (EMS, parent, family, police, friend...)? What history was obtained from this source @ -No Did you review nursing and triage notes (agree or disagree)? Why? @ -I reviewed and agree with nursing and triage notes Were old charts reviewed (outside hosp., previous admission, EMS record, old EKG, old radiological studies, urgent care reports/EKG's, prison records)? Report findings @ -No old charts were reviewed Differential Diagnosis (chest pain, altered mental status, abdominal pain women, abdominal pain men, vaginal bleeding, weakness, fever, dyspnea, syncope, headache, dizziness, GI bleed, back pain, seizure, CVA, palpatations, mental health)? @ -COPD exacerbation, pneumonia, ACS, influenza, Covid 19, RSV EKG interpreted by me (3pts min.). @ -As above X-rays interpreted by me (1pt min.). @ -Chest x-ray was obtained and was interpreted by myself. Chest x-ray showed a suspect for multifocal infection but the patient did have a history of COPD with RSV and this was likely the cause of these findings instead of a multifocal pneumonia. CT interpreted by me (1pt min.). @ -None done U/S interpreted by me (1pt. min.). @ -None done What testing was considered but not performed or refused? (CT, X-rays, U/S, labs)? Why? @ -None What meds were considered but not given or refused? Why? @ -None Did you discuss the management of the patient with other professionals (professionals i.e. , PA, FIELD SUPPORT ENGINEER, lab, RT, psych nurse, psychosocial rehabilitation counselor, mammography technician, teacher, health officer, vocational case manager)? Give summary @ -Yes, admitting physician Was smoking cessation discussed for >3mins.? @ -Yes Was critical care preformed (if so, how long)? @ -No Were there social determinants of health that impacted care today? How? (Homelessness, low income, unemployed, alcoholism, drug addiction, transportation, low edu. Level, literacy, decrease access to med. care, [facility], rehab)? @ -No Was there de-escalation of care discussed even if they declined (Discuss DNR or withdrawal of care, Hospice)? DNR status @ -No What co-morbidities impacted this encounter? (DM, HTN, Smoking, COPD, CAD, Cancer, CVA, ARF, Chemo, Hep., AIDS, mental health diagnosis, sleep apnea, morbid obesity)? @ -COPD, HTN, smoking Was patient admitted / discharged? Hospital course, mention meds given and route, prescriptions, significant lab abnormalities, going to OR and other pertinent info. @ -The patient was seen and evaluated in emergency department. Physical exam, the patient was resting in bed without any acute distress. The patient did have significant wheezing and decreased breath sounds on exam. The patient received a breathing treatment of albuterol and ipratropium as well as 10 mg Decadron. The patient was found to be RSV positive. On reevaluation, the patient still had significant wheezing and shortness of breath and due to the patient's COPD in the setting of RSV, the patient would require observation for continued management. The patient did agree with this plan. The patient's primary care physician was being covered by Dr. Ortega and he accepted the patient for observation at 0209. The patient was placed in observation in stable condition. Undiagnosed new problem with uncertain prognosis? @ -No Drug Therapy requiring intensive monitoring for toxicity (Heparin, Nitro, Insulin, Cardizem)? @ -No Were any procedures done? @ -No Diagnosis/symptom? @ -COPD exacerbation secondary to RSV Acute, or Chronic, or Acute on Chronic? @ -Acute Uncomplicated (without systemic symptoms) or Complicated (systemic symptoms)? @ -Complicated Side effects of treatment? @ -No Exacerbation, Progression, or Severe Exacerbation? @ -Exacerbation Poses a threat to life or bodily function? How? (Chest pain, [place], [place], pneumonia, PE, COPD, DKA, ARF, appy, cholecystitis, CVA, Diverticulitis, Homicidal, Suicidal, threat to staff... and all critical care pts) @ -No - Lab Data Result diagrams: 03/08/22 21:59 03/08/22 21:59 Lab Results 03/08/22 03/08/22 03/08/22 Range/Units : 21:59 21:59 WBC 7.5 (3.8-10.6) k/uL RBC 4.49 (4.30-5.90) m/uL Hgb 14.9 (13.0-17.5) gm/dL Hct 43.3 (39.0-53.0) % MCV 96.4 (80.0-100.0) fL MCH 33.3 (25.0-35.0) pg MCHC 34.5 (31.0-37.0) g/dL RDW 12.6 (11.5-15.5) % Plt Count 186 (150-450) k/uL MPV 7.9 Neutrophils % 80 % Lymphocytes % 10 % Monocytes % 7 % Eosinophils % 1 % Basophils % 0 % Neutrophils # 6.0 (1.3-7.7) k/uL Lymphocytes # 0.8 L (1.0-4.8) k/uL Monocytes # 0.5 (0-1.0) k/uL Eosinophils # 0.1 (0-0.7) k/uL Basophils # 0.0 (0-0.2) k/uL PT 10.0 (9.0-12.0) sec INR 0.9 (<1.2) APTT 24.9 (22.0-30.0) sec Sodium (137-145) mmol/L Potassium (3.5-5.1) mmol/L Chloride (98-107) mmol/L Carbon Dioxide (22-30) mmol/L Anion Gap mmol/L BUN (9-20) mg/dL Creatinine (0.66-1.25) mg/dL Est GFR (CKD-EPI)AfAm (>60 ml/min/1.73 sqM) Est GFR (CKD-EPI)NonAf (>60 ml/min/1.73 sqM) Glucose (74-99) mg/dL Calcium (8.4-10.2) mg/dL Total Bilirubin (0.2-1.3) mg/dL AST (17-59) U/L ALT (4-49) U/L Alkaline Phosphatase (38-126) U/L Troponin I (0.000-0.034) ng/mL Total Protein (6.3-8.2) g/dL Albumin (3.5-5.0) g/dL Influenza Type A (PCR) Not Detected (Not Detectd) Influenza Type B (PCR) Not Detected (Not Detectd) RSV (PCR) Detected A (Not Detectd) SARS-CoV-2 (PCR) Not Detected (Not Detectd) 03/08/22 03/08/22 Range/Units 21:59 21:59 WBC (3.8-10.6) k/uL RBC (4.30-5.90) m/uL Hgb (13.0-17.5) gm/dL Hct (39.0-53.0) % MCV (80.0-100.0) fL MCH (25.0-35.0) pg MCHC (31.0-37.0) g/dL RDW (11.5-15.5) % Plt Count (150-450) k/uL MPV Neutrophils % % Lymphocytes % % Monocytes % % Eosinophils % % Basophils % % Neutrophils # (1.3-7.7) k/uL Lymphocytes # (1.0-4.8) k/uL Monocytes # (0-1.0) k/uL Eosinophils # (0-0.7) k/uL Basophils # (0-0.2) k/uL PT (9.0-12.0) sec INR (<1.2) APTT (22.0-30.0) sec Sodium 138 (137-145) mmol/L Potassium 4.4 (3.5-5.1) mmol/L Chloride 106 (98-107) mmol/L Carbon Dioxide 27 (22-30) mmol/L Anion Gap 5 mmol/L BUN 19 (9-20) mg/dL Creatinine 0.83 (0.66-1.25) mg/dL Est GFR (CKD-EPI)AfAm >90 (>60 ml/min/1.73 sqM) Est GFR (CKD-EPI)NonAf 86 (>60 ml/min/1.73 sqM) Glucose 102 H (74-99) mg/dL Calcium 9.0 (8.4-10.2) mg/dL Total Bilirubin 0.6 (0.2-1.3) mg/dL AST 20 (17-59) U/L ALT 25 (4-49) U/L Alkaline Phosphatase 64 (38-126) U/L Troponin I <0.012 (0.000-0.034) ng/mL Total Protein 6.4 (6.3-8.2) g/dL Albumin 3.9 (3.5-5.0) g/dL Influenza Type A (PCR) (Not Detectd) Influenza Type B (PCR) (Not Detectd) RSV (PCR) (Not Detectd) SARS-CoV-2 (PCR) (Not Detectd) Disposition Clinical Impression: COPD exacerbation, RSV infection Disposition: ADMITTED IP TO THIS [facility] Condition: Stable Is patient prescribed a controlled substance at d/c from ED?: No Referrals: Fernando Lambert Jr, [Primary Care Provider] - 1-2 days Time of Disposition: 02:00 Decision to Admit Reason: Admit from EC Decision Date: 03/09/22 Decision Time: 02:00
[2022-03-09] MEDS: IPRATROPIUM-ALBUTEROL 3 ML NEB INHALATION SCH ×4 (06:59→19:37)
[2022-03-09] MEDS ORDERED: DEXTROSE 50% SYRINGE 50 ML IVP PRN ×2 (10:16)
[2022-03-09] MEDS ORDERED: predniSONE 10 MG TAB PO SCH (10:30)
[2022-03-09] MEDS: SYMBICORT 160-4.5 MCG INHALER INHALATION SCH ×2 (10:48→19:37)
[2022-03-09] MEDS: TAMSULOSIN 0.4 MG CAP.ER.24H PO SCH ×2 (13:17→20:58)
[2022-03-09] MEDS: GABAPENTIN 100 MG CAP PO SCH ×2 (13:17→20:58)
[2022-03-09] MEDS: APIXABAN 5 MG TAB PO SCH ×2 (13:17→20:58)
[2022-03-09] MEDS: FAMOTIDINE 20 MG TAB PO SCH ×2 (13:17→20:58)
[2022-03-09] MEDS: METOPROLOL TARTRATE 50 MG TAB PO SCH ×2 (13:17→20:58)
[2022-03-09 14:05] LABS: Glucose,Whole Blood 196 mg/dL (70-110)
--- NOTE | 2022-03-09 14:14 | P.HPIM ---
History of Present Illness H&P Date: 03/09/22 Chief Complaint: Worsening dyspnea This is 76-year-old white male with known COPD and an ongoing nicotine dependence., Presented with to the ER with worsening shortness of breath 3 days accompanied by nasal congestion and nonproductive cough. Denies fever or chills. Denies nausea vomiting or diarrhea. Denies abdominal pain. Denies lightheadedness, dizziness or focal deficits. Denies chest pain, palpitations. EKG reported sinus rhythm .Chest x-ray reported suspected multifocal infection, pleural spaces negative, cardiac silhouette not enlarged .Screening positive for RSV. Received aggressive pulmonary toileting with nebulized bronchodilators,IV steroids. Significant clinical improvement. Maintaining O2 sats in the 90s on room air. Ambulating in room, tolerating exertion well. Afebrile, hematology, coagulation and chemistry panels unremarkable .VSS, leger virus, influenza A and B not detected. Review of Systems ROS Statement: Those systems with pertinent positive or pertinent negative responses have been documented in the HPI. ROS Other: All systems not noted in ROS Statement are negative. Past Medical History Past Medical History: Atrial Fibrillation, Atrial Flutter, COPD, GERD/Reflux, Pneumonia, Prostate Disorder Additional Past Medical History / Comment(s): Paroxysmal Afib, bronchitis, BPH, constipation, vertigo, chronic low back pain/DDD. covid 06/22 History of Any Multi-Drug Resistant Organisms: None Reported Past Surgical History: Back Surgery Additional Past Surgical History / Comment(s): Bilateral cataract removals-lens implants, colonoscopy, multiple kyphoplasties. Past Anesthesia/Blood Transfusion Reactions: No Reported Reaction Additional Past Anesthesia/Blood Transfusion Reaction / Comment(s): Has never received any blood transfusions. Past Psychological History: No Psychological Hx Reported Smoking Status: Current every day smoker Past Alcohol Use History: None Reported Past Drug Use History: None Reported - Past Family History Mother Family Medical History: AFIB, Dementia Father Family Medical History: Myocardial Infarction ([place]) Additional Family Medical History / Comment(s): in his 70's [place] Medications and Allergies Home Medications Medication Instructions Recorded Confirmed Type Tamsulosin HCl [Flomax] 0.4 mg PO BID 03/24/18 03/09/22 History Apixaban [Eliquis] 5 mg PO BID 09/14/18 03/09/22 History Metoprolol Tartrate [Lopressor] 50 mg PO BID 02/04/19 03/09/22 History Ergocalciferol [Vitamin D2 1,250 mcg PO GROVES 05/05/19 03/09/22 History (DRISDOL)] Alendronate Sodium [Fosamax] 70 mg PO GROVES 08/21/19 03/09/22 History Budesonide/Formoterol Fumarate 2 puff INHALATION RT-BID 05/21/20 03/09/22 History [Symbicort 160-4.5 Mcg Inhaler] Fluticasone Propion/Salmeterol 1 puff INHALATION RT-BID 04/07/21 03/09/22 History [Advair 250-50 Diskus] Gabapentin [Neurontin] 100 mg PO BID 04/07/21 03/09/22 History Albuterol Nebulized [Ventolin 2.5 mg INHALATION RT-Q4H PRN 09/20/21 03/09/22 History Nebulized] Albuterol Inhaler [Ventolin Hfa 1 puff INHALATION RT-Q4H PRN 11/17/21 03/09/22 History Inhaler] Ipratropium Nebulized [Atrovent 0.5 mg INHALATION RT-Q4H PRN 11/17/21 03/09/22 History Nebulized 0.2 MG/ML] Famotidine [Pepcid] 20 mg PO BID #60 tablet 12/18/21 03/09/22 Rx predniSONE 10 mg PO DAILY 03/09/22 03/09/22 History Allergies Allergy/AdvReac Type Severity Reaction Status Date / Time Iodinated Contrast Media Allergy Rash/Hives Verified 02/02/22 07:58 [Iodinated Contrast- Oral and IV Dye] latex Allergy Rash/Hives Verified 02/02/22 07:58 Physical Exam Vitals: Vital Signs Temp Pulse Resp BP Pulse Ox 03/09/22 07:39 97.2 F L 111 H 22 126/77 93 L 03/09/22 07:09 90 03/09/22 07:01 94 03/09/22 03:00 104 H 16 102/72 96 03/09/22 02:35 88 03/09/22 01:40 84 03/09/22 00:30 82 20 133/91 95 03/08/22 21:02 98 F 92 24 128/66 95 Intake and Output 03/08/22 03/09/22 03/09/22 22:59 06:59 14:59 Other: Weight 70.307 kg GENERAL: Thin male and in no acute distress, sitting up at bedside. HEAD: Atraumatic, normocephalic. Oral mucosa is moist EYES: Pupils equal round and reactive to light, extraocular movements intact, sc sarmad anicteric, conjunctiva are normal. ENT:nares patent, oropharynx clear without exudates. Moist mucous membranes. NECK: Normal range of motion, supple without lymphadenopathy or JVD, no thyromegaly LUNGS: Breath sounds coarse with bilateral rhonchi and decreased air exchange consistent with his underlying COPD. HEART: Regular rate and rhythm without murmurs, rubs or gallops.S1S2 Normal ABDOMEN: Soft, nontender, normoactive bowel sounds. No guarding, no rebound. No masses appreciated. EXTREMITIES: Normal range of motion, no pitting or edema. No clubbing or cyanosis. NEUROLOGICAL: Cranial nerves II through XII grossly intact. PSYCH: Normal mood, normal affect. SKIN: Warm, Dry, no rash noted. Results CBC & Chem 7: 03/08/22 21:59 03/08/22 21:59 Labs: Abnormal Lab Results - Last 24 Hours (Table) 03/08/22 03/08/22 03/08/22 Range/Units 21:23 21:59 21:59 Lymphocytes # 0.8 L (1.0-4.8) k/uL Glucose 102 H (74-99) mg/dL RSV (PCR) Detected A (Not Detectd) Assessment and Plan Assessment: Acute COPD exacerbation secondary to acute RSV infection Chronic atrial fibrillation, on anticoagulation BPH Ongoing nicotine dependence, counseling provided Plan: Continue on current medication regime ,monitoring and symptomatic treatment. Maintained on nebulized bronchodilators, IV steroids, antibiotics and Mucinex. On discharge planning in progress for tomorrow pending continued improvement. The impression and plan of care has been dictated as directed. : I performed a history and examination of this patient, discussed the same with the dictator. I agree with the dictator's note ,documented as a scribe. Any additional findings or plans will be noted.
[2022-03-09] MEDS: AZITHROMYCIN 500 MG in SODIUM CHLORIDE 0.9% 250 ML IVPB SCH (15:17)
[2022-03-09] MEDS: INSULIN ASPART (NovoLOG) 100 UNIT/ML VIAL SQ SCH ×3 (15:18→20:42)
[2022-03-09] MEDS: methylPREDNISolone SOD SUCCI 125 MG/2 ML VIAL IV SCH ×2 (15:27→20:57)
[2022-03-09] MEDS: guaiFENesin 600 MG TABLET.ER PO SCH ×2 (15:27→20:58)
[2022-03-09 17:24] LABS: Glucose,Whole Blood 113 mg/dL (70-110)
[2022-03-09 20:31] LABS: Glucose,Whole Blood 136 mg/dL (70-110)
[2022-03-10] MEDS: IPRATROPIUM-ALBUTEROL 3 ML NEB INHALATION SCH ×4 (01:35→11:33)
[2022-03-10] MEDS: methylPREDNISolone SOD SUCCI 125 MG/2 ML VIAL IV SCH ×2 (03:10→09:35)
[2022-03-10 05:59] LABS: Glucose,Whole Blood 140 mg/dL (70-110)
[2022-03-10] MEDS: INSULIN ASPART (NovoLOG) 100 UNIT/ML VIAL SQ SCH (06:00)
[2022-03-10 07:17] VITALS: BP 112/68; RESP 16; TEMP 97.8
[2022-03-10] MEDS: SYMBICORT 160-4.5 MCG INHALER INHALATION SCH (08:17)
[2022-03-10 08:36] VITALS: PULSE 88
[2022-03-10] MEDS: APIXABAN 5 MG TAB PO SCH (09:35)
[2022-03-10] MEDS: AZITHROMYCIN 500 MG in SODIUM CHLORIDE 0.9% 250 ML IVPB SCH (09:35)
[2022-03-10] MEDS: guaiFENesin 600 MG TABLET.ER PO SCH (09:35)
[2022-03-10] MEDS: GABAPENTIN 100 MG CAP PO SCH (09:35)
[2022-03-10] MEDS: TAMSULOSIN 0.4 MG CAP.ER.24H PO SCH (09:35)
[2022-03-10] MEDS: METOPROLOL TARTRATE 50 MG TAB PO SCH (09:35)
[2022-03-10] MEDS: FAMOTIDINE 20 MG TAB PO SCH (09:35)
--- NOTE | 2022-03-10 11:47 | P.DS ---
Providers Date of admission: 03/09/22 02:20 Expected date of discharge: 03/10/22 Attending physician: Jeremiah Ortega Primary care physician: [facility] Course: This is 76-year-old white male with known COPD and an ongoing nicotine dependence., Presented with to the ER with worsening shortness of breath 3 days accompanied by nasal congestion and nonproductive cough. Denies fever or chills. Denies nausea vomiting or diarrhea. Denies abdominal pain. Denies lightheadedness, dizziness or focal deficits. Denies chest pain, palpitations. EKG reported sinus rhythm .Chest x-ray reported suspected multifocal infection, pleural spaces negative, cardiac silhouette not enlarged .Screening positive for RSV. Received aggressive pulmonary toileting with nebulized bronchodilators,IV steroids. Significant clinical improvement. Maintaining O2 sats in the 90s on room air. Ambulating in room, tolerating exertion well. Afebrile, hematology, coagulation and chemistry panels unremarkable .VSS, leger virus, influenza A and B not detected. 03/10/2022: after 24 hours of steroids and Azithromycin, patient was at baseline and asked to go home. He is medically stable and was discharged Patient Condition at Discharge: Stable Plan - Discharge Summary New Discharge Prescriptions: New Azithromycin [Zithromax] 500 mg PO DAILY 3 Days #3 tab Continue Tamsulosin HCl [Flomax] 0.4 mg PO BID Apixaban [Eliquis] 5 mg PO BID Metoprolol Tartrate [Lopressor] 50 mg PO BID Ergocalciferol [Vitamin D2 (DRISDOL)] 1,250 mcg PO GROVES Alendronate Sodium [Fosamax] 70 mg PO GROVES Budesonide/Formoterol Fumarate [Symbicort 160-4.5 Mcg Inhaler] 2 puff INHALATION RT-BID Fluticasone Propion/Salmeterol [Advair 250-50 Diskus] 1 puff INHALATION RT- BID Albuterol Nebulized [Ventolin Nebulized] 2.5 mg INHALATION RT-Q4H PRN PRN Reason: Shortness Of Breath Ipratropium Nebulized [Atrovent Nebulized 0.2 MG/ML] 0.5 mg INHALATION RT-Q4H PRN PRN Reason: Shortness Of Breath Famotidine [Pepcid] 20 mg PO BID #60 tablet Gabapentin [Neurontin] 100 mg PO BID Albuterol Inhaler [Ventolin Hfa Inhaler] 1 puff INHALATION RT-Q4H PRN PRN Reason: Shortness Of Breath Changed predniSONE See Taper PO DAILY 10 Days #30 Discharge Medication List Tamsulosin HCl [Flomax] 0.4 mg PO BID 03/24/18 [History] Apixaban [Eliquis] 5 mg PO BID 09/14/18 [History] Metoprolol Tartrate [Lopressor] 50 mg PO BID 02/04/19 [History] Ergocalciferol [Vitamin D2 (DRISDOL)] 1,250 mcg PO GROVES 05/05/19 [History] Alendronate Sodium [Fosamax] 70 mg PO GROVES 08/21/19 [History] Budesonide/Formoterol Fumarate [Symbicort 160-4.5 Mcg Inhaler] 2 puff INHALATION RT-BID 05/21/20 [History] Fluticasone Propion/Salmeterol [Advair 250-50 Diskus] 1 puff INHALATION RT-BID 04/07/21 [History] Gabapentin [Neurontin] 100 mg PO BID 04/07/21 [History] Albuterol Nebulized [Ventolin Nebulized] 2.5 mg INHALATION RT-Q4H PRN 09/20/21 [History] Albuterol Inhaler [Ventolin Hfa Inhaler] 1 puff INHALATION RT-Q4H PRN 11/17/21 [History] Ipratropium Nebulized [Atrovent Nebulized 0.2 MG/ML] 0.5 mg INHALATION RT-Q4H PRN 11/17/21 [History] Famotidine [Pepcid] 20 mg PO BID #60 tablet 12/18/21 [Rx] Azithromycin [Zithromax] 500 mg PO DAILY 3 Days #3 tab 03/10/22 [Rx] predniSONE See Taper PO DAILY 10 Days #30 03/10/22 [Rx] Follow up Appointment(s)/Referral(s): Fernando Lambert Jr, DO [Primary Care Provider] - 1-2 days Patient Instructions/Handouts: Respiratory Syncytial Virus (DC), COPD (Chronic Obstructive Pulmonary Disease) (DC) Discharge Disposition: HOME SELF-CARE
[2022-03-10 12:03] LABS: Glucose,Whole Blood 93 mg/dL (70-110)
== END 2022-03-10 12:45 | disposition home or self-care (01) ==
LOC: EC 20:07 → 6NMEDSUR 03-09 02:20
PROVIDERS: ADMIT Family Medicine; ATTEND Family Medicine
DX: J44.1 Chronic obstructive pulmonary disease with (acute) exacerbation (principal); J44.0 Chronic obstructive pulmonary disease with (acute) lower respiratory infection; B97.4 Respiratory syncytial virus as the cause of diseases classified elsewhere; I10 Essential (primary) hypertension; I48.20 Chronic atrial fibrillation, unspecified; K21.9 Gastro-esophageal reflux disease without esophagitis; N40.0 Benign prostatic hyperplasia without lower urinary tract symptoms; G89.29 Other chronic pain; M54.50 Low back pain, unspecified; F17.200 Nicotine dependence, unspecified, uncomplicated; Z71.6 Tobacco abuse counseling; Z96.1 Presence of intraocular lens; Z79.899 Other long term (current) drug therapy; Z79.01 Long term (current) use of anticoagulants; Z79.83 Long term (current) use of bisphosphonates; Z79.51 Long term (current) use of inhaled steroids; Z91.040 Latex allergy status; Z20.822 Contact with and (suspected) exposure to COVID-19
CPT/HCPCS: 96365; 96366; 96372; 96375; 96376 ×2; 99285; 36415; 94640 ×4; 94760; 94644; 93005; 80053; 83735; 84484; 85025; 85610; 85730; 87636; 71046; G0378 ×3; J2930 ×2; J0456 ×2; J8540

== ENCOUNTER 2022-03-27 14:08 | Emergency (ER) | payer MEDICARE ==
[2022-03-27 14:11] VITALS: TEMP 98
--- NOTE | 2022-03-27 14:21 | ED ---
General Adult HPI - General Chief complaint: Urogenital Stated complaint: trouble urinating Time Seen by Provider: 03/27/22 14:13 Source: patient, family, RN notes reviewed Mode of arrival: ambulatory Limitations: no limitations - History of Present Illness Initial comments: 76-year-old male with a history of COPD presents to the emergency depa rtment with urinary retention. She reports that he has not had a full urinary void in 2 days. He notes that this morning it was just a couple of "dribbles" reports a history of an enlarged prostate, however he is unable to get TURP surgery because he cannot receive anaesthesia. Denies fever, flank pain, chills, abdominal pain, nausea, vomiting, diarrhea, hematuria, dysuria. He has not taken anything for pain. Obtained bladder scan while receiving the HISTORY BLADDER SCAN REVEALS 42 ML. - Related Data Home Medications Medication Instructions Recorded Confirmed Tamsulosin HCl [Flomax] 0.4 mg PO BID 03/24/18 03/27/22 Apixaban [Eliquis] 5 mg PO BID 09/14/18 03/27/22 Metoprolol Tartrate [Lopressor] 50 mg PO BID 02/04/19 03/27/22 Ergocalciferol [Vitamin D2 1,250 mcg PO GROVES 05/05/19 03/27/22 (DRISDOL)] Alendronate Sodium [Fosamax] 70 mg PO GROVES 08/21/19 03/27/22 Budesonide/Formoterol Fumarate 2 puff INHALATION RT-BID 05/21/20 03/27/22 [Symbicort 160-4.5 Mcg Inhaler] Fluticasone Propion/Salmeterol 1 puff INHALATION RT-BID 04/07/21 03/27/22 [Advair 250-50 Diskus] Gabapentin [Neurontin] 100 mg PO BID 04/07/21 03/27/22 Albuterol Nebulized [Ventolin 2.5 mg INHALATION RT-Q4H PRN 09/20/21 03/27/22 Nebulized] Albuterol Inhaler [Ventolin Hfa 1 puff INHALATION RT-Q4H PRN 11/17/21 03/27/22 Inhaler] Ipratropium Nebulized [Atrovent 0.5 mg INHALATION RT-Q4H PRN 11/17/21 03/27/22 Nebulized 0.2 MG/ML] predniSONE 10 mg PO DAILY 03/27/22 03/27/22 Previous Rx's Medication Instructions Recorded Famotidine [Pepcid] 20 mg PO BID #60 tablet 12/18/21 Allergies Allergy/AdvReac Type Severity Reaction Status Date / Time Iodinated Contrast Media Allergy Rash/Hives Verified 03/27/22 15:17 [Iodinated Contrast- Oral and IV Dye] latex Allergy Rash/Hives Verified 03/27/22 15:17 Review of Systems ROS Statement: Those systems with pertinent positive or pertinent negative responses have been documented in the HPI. ROS Other: All systems not noted in ROS Statement are negative. Past Medical History Past Medical History: Atrial Fibrillation, Atrial Flutter, COPD, GERD/Reflux, Pneumonia, Prostate Disorder Additional Past Medical History / Comment(s): Paroxysmal Afib, bronchitis, BPH, constipation, vertigo, chronic low back pain/DDD. covid 06/22 History of Any Multi-Drug Resistant Organisms: None Reported Past Surgical History: Back Surgery Additional Past Surgical History / Comment(s): Bilateral cataract removals-lens implants, colonoscopy, multiple kyphoplasties. Past Anesthesia/Blood Transfusion Reactions: No Reported Reaction Additional Past Anesthesia/Blood Transfusion Reaction / Comment(s): Has never received any blood transfusions. Past Psychological History: No Psychological Hx Reported Smoking Status: Current every day smoker Past Alcohol Use History: None Reported Past Drug Use History: None Reported - Past Family History Mother Family Medical History: AFIB, Dementia Father Family Medical History: Myocardial Infarction ([place]) Additional Family Medical History / Comment(s): in his 70's [place] General Exam Limitations: no limitations General appearance: alert, in no apparent distress Head exam: Present: atraumatic, normocephalic, normal inspection Eye exam: Present: normal appearance, PERRL, EOMI. Absent: scleral icterus, conjunctival injection, periorbital swelling ENT exam: Present: normal exam, mucous membranes moist Neck exam: Present: normal inspection. Absent: tenderness, meningismus, lymphadenopathy Respiratory exam: Present: normal lung sounds bilaterally. Absent: respiratory distress, wheezes, rales, rhonchi, stridor Cardiovascular Exam: Present: regular rate, normal rhythm, normal heart sounds. Absent: systolic murmur, diastolic murmur, rubs, gallop, clicks GI/Abdominal exam: Present: soft, normal bowel sounds. Absent: distended, tenderness, guarding, rebound, rigid Extremities exam: Present: normal inspection, full ROM, normal capillary refill. Absent: tenderness, pedal edema, joint swelling, calf tenderness Back exam: Present: normal inspection Neurological exam: Present: alert, oriented X3, CN II-XII intact Psychiatric exam: Present: normal affect, normal mood Skin exam: Present: warm, dry, intact, normal color. Absent: rash Course Vital Signs 03/27/22 03/27/22 14:09 18:11 Temperature 98 F Pulse Rate 110 H 89 Respiratory 20 22 Rate Blood Pressure 146/81 135/68 O2 Sat by Pulse 98 97 Oximetry - Reevaluation(s) Reevaluation #1: 03/27/22 16:55 Patient reevaluated. Notified that EDWIN Jon unable to advance catheter. Not ified there are no Coude Silicone catheters in the hospital. Page out to Dr. Lagos for recommendation of plan of care. Reevaluation #2: 03/27/22 17:41 Dr. jade currently in the department for Munoz placement. Poorly placed without difficulty with urine return. Dr. jade recommends the patient follow up with his urologist in 1 week. And is stable for discharge at this time. Medical Decision Making - Medical Decision Making Was pt. sent in by a medical professional or institution (VALERIANO Adams, SUPPLEMENTAL MANAGER, urgent care, hospital, or custodial...) When possible be specific @ -[No] Did you speak to anyone other than the patient for history (EMS, parent, family, police, friend...)? What history was obtained from this source @ -[No] Did you review nursing and triage notes (agree or disagree)? Why? @ -[I reviewed and agree with nursing and triage notes] Were old charts reviewed (outside hosp., previous admission, EMS record, old EKG, old radiological studies, urgent care reports/EKG's, custodial records)? Report findings @ -[No old charts were reviewed] Differential Diagnosis (chest pain, altered mental status, abdominal pain women, abdominal pain men, vaginal bleeding, weakness, fever, dyspnea, syncope, headache, dizziness, GI bleed, back pain, seizure, CVA, palpatations, mental health)? @ -[not applicable] EKG interpreted by me (3pts min.). @ -[As above] X-rays interpreted by me (1pt min.). @ -[None done] CT interpreted by me (1pt min.). @ -[None done] U/S interpreted by me (1pt. min.). @ -[None done] What testing was considered but not performed or refused? (CT, X-rays, U/S, labs)? Why? @ -[None] What meds were considered but not given or refused? Why? @ -[None] Did you discuss the management of the patient with other professionals (professionals i.e. Dr., PA, SUPPLEMENTAL MANAGER, lab, RT, psych nurse, manager social media, cinder crusher operator, teacher, environmental technical officer, case assembler)? Give summary @ -[No] Was smoking cessation discussed for >3mins.? @ -[No] Was critical care preformed (if so, how long)? @ -[No] Were there social determinants of health that impacted care today? How? (Homelessness, low income, unemployed, alcoholism, drug addiction, transportation, low edu. Level, literacy, decrease access to med. care, mcc, rehab)? @ -[No] Was there de-escalation of care discussed even if they declined (Discuss DNR or withdrawal of care, Hospice)? DNR status @ -[No] What co-morbidities impacted this encounter? (DM, HTN, Smoking, COPD, CAD, Cancer, CVA, ARF, Chemo, Hep., AIDS, mental health diagnosis, sleep apnea, morbid obesity)? @ -[None] Was patient admitted / discharged? Hospital course, mention meds given and route, prescriptions, significant lab abnormalities, going to OR and other pertinent info. @ -76-year-old male presents to the emergency department with urinary retention. Patient had a history and physical performed. Physical exam is essentially unremarkable heart rate regular rate and rhythm, lung sounds clear to auscultation bilaterally abdomen soft and nontender. Patient had a Munoz placed in the emergency department by Dr. jade. and encouraged to follow up with Urologist in 1-2 days. Patient verbalized all understanding and all questions were addressed. Patient was discharged in stable condition with return precautions discussed. I discussed the case with JAZZY Calles who agrees and agrees with the plan of care. Undiagnosed new problem with uncertain prognosis? @ -[No] Drug Therapy requiring intensive monitoring for toxicity (Heparin, Nitro, Insulin, Cardizem)? @ -[No] Were any procedures done? @ -[No] Diagnosis/symptom? @ -urinary retention Acute, or Chronic, or Acute on Chronic? @ -acute Uncomplicated (without systemic symptoms) or Complicated (systemic symptoms)? @ -complicated Side effects of treatment? @ -[No] Exacerbation, Progression, or Severe Exacerbation? @ -[No] Poses a threat to life or bodily function? How? (Chest pain, [place], [place], pneumonia, PE, COPD, DKA, ARF, appy, cholecystitis, CVA, Diverticulitis, Homicidal, Suicidal, threat to staff... and all critical care pts) @ -[No] Disposition Clinical Impression: Urinary retention Disposition: HOME SELF-CARE Condition: Stable Instructions (If sedation given, give patient instructions): Munoz Catheter Placement and Care (ED) Additional Instructions: Please return to the emergency department if symptoms worsen or persist. Please follow-up with your urologist in [place] in 1 week. Is patient prescribed a controlled substance at d/c from ED?: No Referrals: Fernando Lambert Jr, DO [Primary Care Provider] - 1-2 days Time of Disposition: 17:43
[2022-03-27 18:13] VITALS: BP 135/68; PULSE 89; RESP 22
--- NOTE | 2022-03-27 19:37 | P.GSCN ---
History of Present Illness Consult date: 03/27/22 Reason for Consult: Urinary retention History of present illness: This is a 76-year-old male that presents to the hospital with urinary retention. He's been having difficulty voiding since March 23, has been only able to dribble small amount urine and is having significant suprapubic pressure.. Has history of recurrent urinary retention and BPH, follows up with a urologist over at [place]. Attempted to place a Munoz catheter by nursing staff was unsuccessful, of note patient has a latex ALLERGY, thus a latex coud catheter could not be placed. Review of Systems - Constitutional Denies fever, Denies weight loss - Cardiovascular Denies chest pain, Denies shortness of breath - Respiratory Denies cough, Denies 7 - Gastrointestinal Reports abdominal pain - Genitourinary Reports urinary retention, Denies flank pain, Denies hematuria Past Medical History Past Medical History: Atrial Fibrillation, Atrial Flutter, COPD, GERD/Reflux, Pneumonia, Prostate Disorder Additional Past Medical History / Comment(s): Paroxysmal Afib, bronchitis, BPH, constipation, vertigo, chronic low back pain/DDD. covid 06/22 History of Any Multi-Drug Resistant Organisms: None Reported Past Surgical History: Back Surgery Additional Past Surgical History / Comment(s): Bilateral cataract removals-lens implants, colonoscopy, multiple kyphoplasties. Past Anesthesia/Blood Transfusion Reactions: No Reported Reaction Additional Past Anesthesia/Blood Transfusion Reaction / Comm: Has never received any blood transfusions. Past Psychological History: No Psychological Hx Reported Smoking Status: Current every day smoker Past Alcohol Use History: None Reported Past Drug Use History: None Reported - Past Family History Mother Family Medical History: AFIB, Dementia Father Family Medical History: Myocardial Infarction ([place]) Additional Family Medical History / Comment(s): in his 70's [place] Medications and Allergies Home Medications Medication Instructions Recorded Confirmed Type Tamsulosin HCl [Flomax] 0.4 mg PO BID 03/24/18 03/27/22 History Apixaban [Eliquis] 5 mg PO BID 09/14/18 03/27/22 History Metoprolol Tartrate [Lopressor] 50 mg PO BID 02/04/19 03/27/22 History Ergocalciferol [Vitamin D2 1,250 mcg PO GROVES 05/05/19 03/27/22 History (DRISDOL)] Alendronate Sodium [Fosamax] 70 mg PO GROVES 08/21/19 03/27/22 History Budesonide/Formoterol Fumarate 2 puff INHALATION RT-BID 05/21/20 03/27/22 History [Symbicort 160-4.5 Mcg Inhaler] Fluticasone Propion/Salmeterol 1 puff INHALATION RT-BID 04/07/21 03/27/22 History [Advair 250-50 Diskus] Gabapentin [Neurontin] 100 mg PO BID 04/07/21 03/27/22 History Albuterol Nebulized [Ventolin 2.5 mg INHALATION RT-Q4H PRN 09/20/21 03/27/22 History Nebulized] Albuterol Inhaler [Ventolin Hfa 1 puff INHALATION RT-Q4H PRN 11/17/21 03/27/22 History Inhaler] Ipratropium Nebulized [Atrovent 0.5 mg INHALATION RT-Q4H PRN 11/17/21 03/27/22 History Nebulized 0.2 MG/ML] Famotidine [Pepcid] 20 mg PO BID #60 tablet 12/18/21 03/27/22 Rx predniSONE 10 mg PO DAILY 03/27/22 03/27/22 History Allergies Allergy/AdvReac Type Severity Reaction Status Date / Time Iodinated Contrast Media Allergy Rash/Hives Verified 03/27/22 15:17 [Iodinated Contrast- Oral and IV Dye] latex Allergy Rash/Hives Verified 03/27/22 15:17 Surgical - Exam Vital Signs Temp Pulse Resp BP Pulse Ox 98 F 110 H 20 146/81 98 03/27/22 14:09 03/27/22 14:09 03/27/22 14:09 03/27/22 14:09 03/27/22 14:09 - General no distress, moderate pain - Eyes normal ocular movement, no pale - ENT normal nares, normal mucosa - Respiratory normal expansion, normal respiratory effort - Abdomen Abdomen: soft, tender (Suprapubic area) - Genitourinary normal penis with no external lesions, testicles present - Psychiatric oriented to time, oriented to person, oriented to place Assessment and Plan Assessment: This is a 76-year-old male with history of BPH, recurrent urinary retention, a Munoz catheter could not be placed by nursing staff due to resistance of the prostate. Patient does have a latex ALLERGY, thus a latex coud catheter could not be placed -Was able to place a 16-[place] silicone catheter with the return of clear urine -Patient can be discharged from urology standpoint advised to follow up with his urologist at [place] 1 week -Continue Flomax twice a day
--- NOTE | 2022-03-27 19:38 | P.PCN ---
Date of Procedure: 03/27/22 Preoperative Diagnosis: Urinary retention Postoperative Diagnosis: Same Procedure(s) Performed: Munoz catheter insertion Description of Procedure: Patient penis was prepped, next a 16-Portuguese Munoz catheter was placed, moderate resistance was met at the external sphincter, but I was able to advance the catheter into the bladder with return of clear urine. Patient tolerated the procedure well
== END 2022-03-27 18:13 | disposition home or self-care (01) ==
LOC: EC 14:08
DX: R33.9 Retention of urine, unspecified (principal); F17.200 Nicotine dependence, unspecified, uncomplicated; Z91.040 Latex allergy status; Z91.041 Radiographic dye allergy status
CPT/HCPCS: 51702; 51798; 99284

== ENCOUNTER 2022-05-09 10:49 | Inpatient (IN) | payer MEDICARE, OTHER ==
[2022-05-09] MEDS ORDERED: SODIUM CHLORIDE 0.9% 1,000 ML IV STA ×2 (11:10)
[2022-05-09] MEDS ORDERED: ONDANSETRON 4 MG/2 ML VIAL IVP STA (11:10)
[2022-05-09] MEDS ORDERED: SODIUM CHLORIDE 0.9% 500 ML 500 ML IV STA (11:10)
[2022-05-09] MEDS ORDERED: VANCOMYCIN IV PER PHARMACY 1 EACH MISC MISCELLANE PRN (11:11)
[2022-05-09] MEDS ORDERED: CEFEPIME 2 GM in SODIUM CHLORIDE 0.9% 100 ML IVPB STA (11:16)
[2022-05-09] MEDS ORDERED: VANCOMYCIN 1,250 MG in SODIUM CHLORIDE 0.9% 250 ML IVPB STA (11:17)
[2022-05-09 11:30] LABS: Basophils # (A) 0.1 k/uL (0-0.2); Basophils % (A) 1 %; Eosinophils # (A) 0.2 k/uL (0-0.7); Eosinophils % (A) 2 %; HCT 37.7 % (39.0-53.0); HGB 12.2 gm/dL (13.0-17.5); Lymphocytes # (A) 0.6 k/uL (1.0-4.8); Lymphocytes % (A) 5 %; MCH 32.1 pg (25.0-35.0); MCHC 32.2 g/dL (31.0-37.0); MCV 99.5 fL (80.0-100.0); Mean Platelet Volume 7.9; Monocytes # (A) 0.8 k/uL (0-1.0); Monocytes % (A) 7 %; Neutrophils # (A) 9.5 k/uL (1.3-7.7); Neutrophils % (A) 84 %; Platelet Count 193 k/uL (150-450); RBC 3.79 m/uL (4.30-5.90); RDW 13.7 % (11.5-15.5); WBC 11.3 k/uL (3.8-10.6)
[2022-05-09 11:40] LABS: Potassium 4.2 mmol/L (3.5-5.1)
[2022-05-09 11:41] LABS: Calcium 7.8 mg/dL (8.4-10.2); Total Bilirubin 1.2 mg/dL (0.2-1.3); Total Protein 5.9 g/dL (6.3-8.2)
--- NOTE | 2022-05-09 11:52 | XR ---
EXAMINATION TYPE: XR chest 2V DATE OF EXAM: 05/09/2022 COMPARISON: NONE HISTORY: History of recent urinary tract infection with indwelling catheter. She is also having abdom inal pain. TECHNIQUE: Frontal and lateral views of the chest are obtained. IMPRESSION: There is some scattered interstitial changes more prominent in the left lung which could represent an inflammatory or infectious process. These findings may also be chronic as they do appear very simila r to the previous examination. The bones are diffusely demineralized. There is kyphoplasty cement seen within mid to lower thoracic vertebral bodies which is unchanged.
[2022-05-09 11:59] LABS: INR 1.1 (<1.2); Partial Thromboplastin Time 26.1 sec (22.0-30.0); Prothrombin Time 11.4 sec (9.0-12.0)
[2022-05-09] MEDS ORDERED: FAMOTIDINE 20 MG/2 ML VIAL IV STA (12:53)
[2022-05-09] MEDS ORDERED: diphenhydrAMINE 50 MG/ML 1 ML VIAL IVP STA (12:53)
[2022-05-09] MEDS ORDERED: methylPREDNISolone SOD SUCCI 125 MG/2 ML VIAL IV STA (12:53)
--- NOTE | 2022-05-09 14:14 | CT ---
EXAMINATION: CT ABDOMEN AND PELVIS WITH IV CONTRAST DATE OF EXAMINATION: 05/09/2022. COMPARISON: 04/16/2022. INDICATION: Left-sided abdominal pain. PROCEDURE: Axial CT of the abdomen and pelvis was performed with contrast and sagittal and coronal r eformatted images were performed. 100 mL of Isovue-[address] dose lowering theron hniques were used, to include: automated exposure control, adjustment for patient size, and/or use of iterative reconstruction. FINDINGS: LOWER CHEST : There is subpleural areas of reticulation at the posterior aspects of the lower lobes bilaterally which is unchanged and likely relates to some chronicity and fibrotic changes. There are no pleural or pericardial effusions. ABDOMEN: Liver and Biliary system: Normal. Adrenal glands: Normal. Kidneys and ureters: Normal. Spleen: Normal. Pancreas: Normal. Gallbladder: Normal. Lymph nodes, Peritoneum and mesentery: There is no mesenteric or retroperitoneal lymphadenopathy. Gastrointestinal tract: There are no dilated loops of bowel or free intraperitoneal air. Appendix is normal. There is mild sigmoid colonic diverticulosis without evidence of diverticulitis. Aorta/IVC: There is moderate vascular calcification throughout the abdominal aorta with aneurysmal dilation of the infrarenal abdominal aorta up to 4 cm there is no evidence of dissection is seen. IV C normal. Abdominal wall: Normal. PELVIS: Fluid: There is no free fluid in the pelvis. Lymph Nodes: There is no pelvic or inguinal lymphadenopathy.. Urinary bladder: The bladder is collapsed around a Munoz catheter and not well evaluated. BONES: There are no osseous destructive lesions.. ADDITIONAL SIGNIFICANT FINDINGS: None. IMPRESSION: 1. No acute process seen within the abdomen or pelvis. 2. Reticulosis without evidence of diverticulitis. 3. 4 cm abdominal aortic aneurysm is unchanged. 4. Chronic basilar lung changes are unchanged.
[2022-05-09] MEDS ORDERED: ONDANSETRON 4 MG/2 ML VIAL IVP PRN (15:06)
[2022-05-09] MEDS ORDERED: NALOXONE 0.4 MG/ML 1 ML VIAL IV PRN (15:06)
[2022-05-09] MEDS ORDERED: ACETAMINOPHEN TAB 325 MG TAB PO PRN (15:06)
--- NOTE | 2022-05-09 15:12 | ED ---
General Adult HPI - General Chief complaint: Urogenital Stated complaint: Recheck Time Seen by Provider: 05/09/22 10:52 Source: patient, EMS, RN notes reviewed, old records reviewed Mode of arrival: EMS Limitations: no limitations - History of Present Illness Initial comments: Patient is a 77-year-old male with chronic indwelling Munoz catheter, A. fib, a flutter, COPD, prostate disorder, who is on blood thinners at baseline. Presents emergency Department complaining of hypertension. Was seen in Dr. Lambert's office who called me to inform me of the patient. Is hypotensive. Likely related to urosepsis per Dr. Lambert. Patient's been feeling weak for 1-2 days. No other symptoms. No chest pain, shortness breath, abdominal pain, vomiting. Does endorse nausea. Denies diarrhea. Denies any sick contacts. Presents for further evaluation at this time. States he just feels generally weak, and was worse this morning when he woke up but felt it somewhat yesterday as well. - Related Data Home Medications Medication Instructions Recorded Confirmed Tamsulosin HCl [Flomax] 0.4 mg PO BID@0400,1600 03/24/18 05/09/22 Apixaban [Eliquis] 5 mg PO BID@0400,1600 09/14/18 05/09/22 Metoprolol Tartrate [Lopressor] 50 mg PO BID@0400,1600 02/04/19 05/09/22 Budesonide/Formoterol Fumarate 2 puff INHALATION RT-BID 05/21/20 05/09/22 [Symbicort 160-4.5 Mcg Inhaler] Fluticasone Propion/Salmeterol 1 puff INHALATION RT-BID 04/07/21 05/09/22 [Advair 250-50 Diskus] Gabapentin [Neurontin] 200 mg PO BID@0400,1600 04/07/21 05/09/22 Albuterol Nebulized [Ventolin 2.5 mg INHALATION RT-Q4H PRN 09/20/21 05/09/22 Nebulized] Albuterol Inhaler [Ventolin Hfa 1 puff INHALATION RT-Q4H PRN 11/17/21 05/09/22 Inhaler] Ipratropium Nebulized [Atrovent 0.5 mg INHALATION RT-Q4H PRN 11/17/21 05/09/22 Nebulized 0.2 MG/ML] Acetaminophen-Codeine 300-30mg 1 tab PO Q6H PRN 04/16/22 05/09/22 [Tylenol w/codeine #3] Alendronate Sodium [Fosamax] 70 mg PO GROVES 05/02/22 05/09/22 HYDROcodone/APAP 5-325MG [[place] 1 tab PO Q8H PRN 05/09/22 05/09/22 5-325] Previous Rx's Medication Instructions Recorded polyethylene glycoL 3350 [Miralax] 17 gm PO DAILY packet 04/09/22 Docusate [Colace] 100 mg PO DAILY #14 capsule 04/29/22 Ibuprofen [Motrin] 600 mg PO Q6HR PRN #12 tab 05/02/22 Allergies Allergy/AdvReac Type Severity Reaction Status Date / Time Iodinated Contrast Media Allergy Rash/Hives Verified 05/09/22 12:32 [Iodinated Contrast- Oral and IV Dye] latex Allergy Rash/Hives Verified 05/09/22 12:32 Review of Systems ROS Statement: Those systems with pertinent positive or pertinent negative responses have been documented in the HPI. Review of Systems: CONST: Denies fever EYES: Denies blurry vision ENT: Denies nasal congestion C/V: Denies Chest pain RESP: Denies shortness of breath GI: Denies abdominal pain : Denies dysuria SKIN: Denies rash. MSK: Denies joint pain. NEURO: Denies headache ROS Other: All systems not noted in ROS Statement are negative. Past Medical History Past Medical History: Atrial Fibrillation, Atrial Flutter, COPD, GERD/Reflux, Pneumonia, Prostate Disorder Additional Past Medical History / Comment(s): Paroxysmal Afib, bronchitis, BPH, constipation, vertigo, chronic low back pain/DDD. covid 06/22 History of Any Multi-Drug Resistant Organisms: None Reported Past Surgical History: Back Surgery Additional Past Surgical History / Comment(s): Bilateral cataract removals-lens implants, colonoscopy, multiple kyphoplasties. Past Anesthesia/Blood Transfusion Reactions: No Reported Reaction Additional Past Anesthesia/Blood Transfusion Reaction / Comment(s): Has never received any blood transfusions. Past Psychological History: No Psychological Hx Reported Smoking Status: Current every day smoker Past Alcohol Use History: None Reported Past Drug Use History: None Reported - Past Family History Mother Family Medical History: AFIB, Dementia Father Family Medical History: Myocardial Infarction ([place]) Additional Family Medical History / Comment(s): in his 70's from [place] General Exam - General Exam Comments Initial Comments: General: Appears in no acute distress. HEAD: Normal with no signs of head trauma. EYES: PERRLA, EOMI, conjunctiva normal, no discharge. ENT: Hearing grossly intact, normal oropharynx. RESPIRATORY: Clear breath sounds bilaterally. No wheezes, rales, or rhonchi. C/V: Regular rate and rhythm. S1 and S2 auscultated, no edema, peripheral pulses 2+ and intact throughout. Hypotensive. ABD: Abd is soft, nontender, nondistended. Munoz catheter is in place with leg bag with dark urine. EXT: Normal range of motion, no obvious deformity SKIN: No rashes or lesions observed on exposed skin. NEURO: Alert and oriented 4. No focal deficits. Limitations: no limitations Course Vital Signs 05/09/22 05/09/22 10:53 12:31 Temperature 97.4 F L Pulse Rate 75 71 Respiratory 20 16 Rate Blood Pressure 87/55 109/67 O2 Sat by Pulse 96 98 Oximetry Medical Decision Making - Medical Decision Making Was pt. sent in by a medical professional or institution (, VALERIANO, DIRECTOR OF MANAGED SERVICES, urgent care, hospital, or [facility]...) When possible be specific @ -Yes sent in from Dr. Lambert's office via EMS. Did you speak to anyone other than the patient for history (EMS, parent, family, police, friend...)? What history was obtained from this source @ -No Did you review nursing and triage notes (agree or disagree)? Why? @ -I reviewed and agree with nursing and triage notes Were old charts reviewed (outside hosp., previous admission, EMS record, old EKG, old radiological studies, urgent care reports/EKG's, [facility] records)? Report findings @ -No old charts were reviewed Differential Diagnosis (chest pain, altered mental status, abdominal pain women, abdominal pain men, vaginal bleeding, weakness, fever, dyspnea, syncope, headache, dizziness, GI bleed, back pain, seizure, CVA, palpatations, mental health, musculoskeletal)? @ -Differential Weakness: Hypoglycemia, shock, sepsis, hyponatremia, anemia, infection, LA, ETOH, adverse medicine reaction, overdose, stroke, this is not meant to be an all-inclusive list. EKG interpreted by me (3pts min.). @ -As above X-rays interpreted by me (1pt min.). @ -Chest x-ray reveals no acute cardiopulmonary process. There are chronic findings seen. CT interpreted by me (1pt min.). @ -CT abdomen and pelvis revealed no acute intra-abdominal process. 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 U/S interpreted by me (1pt. min.). @ -None done What testing was considered but not performed or refused? (CT, X-rays, U/S, labs)? Why? @ -None What meds were considered but not given or refused? Why? @ -None Did you discuss the management of the patient with other professionals (professionals i.e. , PA, DIRECTOR OF MANAGED SERVICES, lab, RT, psych nurse, social research assistant, motor brakeman, teacher, correctional officer captain, social work case manager)? Give summary @ -Discussed with Dr. Sanders who accepted the admission. Was smoking cessation discussed for >3mins.? @ -No Was critical care preformed (if so, how long)? @ -Yes, 35 minutes. Were there social determinants of health that impacted care today? How? (Homelessness, low income, unemployed, alcoholism, drug addiction, transportation, low edu. Level, literacy, decrease access to med. care, fpc, rehab)? @ -No Was there de-escalation of care discussed even if they declined (Discuss DNR or withdrawal of care, Hospice)? DNR status @ -No What co-morbidities impacted this encounter? (DM, HTN, Smoking, COPD, CAD, Cancer, CVA, ARF, Chemo, Hep., AIDS, mental health diagnosis, sleep apnea, morbid obesity)? @ -Chronic indwelling Munoz catheter Was patient admitted / discharged? Hospital course, mention meds given and route, prescriptions, significant lab abnormalities, going to OR and other pertinent info. @ -Based on the patient's presentation and physical exam, he presents complaining of weakness. Was hypotensive. PCP is concerned as urosepsis. I do believe this is justified with a chronic indwelling Munoz catheter. Patient will be given 30 mL per KG fluid bolus total as he is already received 500 mL from EMS. An additional liter and a half full be started as well as a maintenance infusion. He met sepsis criteria at 1110 and was started on broad- spectrum antibiotics vancomycin and cefepime. Vital signs other than the hypertension are within acceptable limits. He was lower at the office with systolics in the high 70s. Blood cultures will be obtained. Patient was in agreement this plan. We will replace his Munoz catheter and obtain a urinalysis. EKG showed no signs of acute ischemia. Chest x-ray within normal limits. No evidence of acute process but there are chronic interstitial changes present. Laboratory studies are remarkable for mild leukocytosis of 11.3. Troponin is u ndetectable. Lipase is elevated to 529. Lactic acid is within normal limits. Urine is still pending at this time. There is a delay in placing a Munoz catheter as the patient does require a latex free catheter we are attempting to find one. Revealed a lipase of did recommend CT of the pelvis which the patient was in agreement with. This was obtained and was negative for any acute process. I discussed the workup with the patient. I would like to admit him on IV antibiotics. Vital signs are improved at this time. He was in agreement with this plan. I spoke with Dr. Sanders again and he accepted the patient. Undiagnosed new problem with uncertain prognosis? @ -Yes Drug Therapy requiring intensive monitoring for toxicity (Heparin, Nitro, Insulin, Cardizem)? @ -No Were any procedures done? @ -No Diagnosis/symptom? @ -Sepsis, source unknown but suspect urosepsis Acute, or Chronic, or Acute on Chronic? @ -Acute Uncomplicated (without systemic symptoms) or Complicated (systemic symptoms)? @ -Complicated Side effects of treatment? @ -No Exacerbation, Progression, or Severe Exacerbation? @ -No Poses a threat to life or bodily function? How? (Chest pain, [place], LA, pneumonia, PE, COPD, DKA, ARF, appy, cholecystitis, CVA, Diverticulitis, Homicidal, Suicidal, threat to staff... and all critical care pts) @ -Yes, can result in significant morbidity and mortality if not treated. Diagnosis/symptom? @ -Hypotension Acute, or Chronic, or Acute on Chronic? @ -Acute Uncomplicated (without systemic symptoms) or Complicated (systemic symptoms)? @ -Complicated Side effects of treatment? @ -none Exacerbation, Progression, or Severe Exacerbation] @ -no Poses a threat to life or bodily function? @ -Yes, function he can result in significant morbidity and mortality. Diagnosis/symptom? @ -Acute pancreatitis, uncomplicated Acute, or Chronic, or Acute on Chronic? @ -Acute Uncomplicated (without systemic symptoms) or Complicated (systemic symptoms)? @ -Uncomplicated Side effects of treatment? @ -none Exacerbation, Progression, or Severe Exacerbation] @ -no Poses a threat to life or bodily function? @ -Yes, if untreated can result in significant morbidity and mortality. - Lab Data Result diagrams: 05/09/22 11:17 05/09/22 11:17 Lab Results 05/09/22 05/09/22 05/09/22 Range/Units 11:17 11:17 11:17 WBC 11.3 H (3.8-10.6) k/uL RBC 3.79 L (4.30-5.90) m/uL Hgb 12.2 L (13.0-17.5) gm/dL Hct 37.7 L (39.0-53.0) % MCV 99.5 (80.0-100.0) fL MCH 32.1 (25.0-35.0) pg MCHC 32.2 (31.0-37.0) g/dL RDW 13.7 (11.5-15.5) % Plt Count 193 (150-450) k/uL MPV 7.9 Neutrophils % 84 % Lymphocytes % 5 % Monocytes % 7 % Eosinophils % 2 % Basophils % 1 % Neutrophils # 9.5 H (1.3-7.7) k/uL Lymphocytes # 0.6 L (1.0-4.8) k/uL Monocytes # 0.8 (0-1.0) k/uL Eosinophils # 0.2 (0-0.7) k/uL Basophils # 0.1 (0-0.2) k/uL PT 11.4 (9.0-12.0) sec INR 1.1 (<1.2) APTT 26.1 (22.0-30.0) sec Sodium (137-145) mmol/L Potassium (3.5-5.1) mmol/L Chloride (98-107) mmol/L Carbon Dioxide (22-30) mmol/L Anion Gap mmol/L BUN (9-20) mg/dL Creatinine (0.66-1.25) mg/dL Est GFR (CKD-EPI)AfAm (>60 ml/min/1.73 sqM) Est GFR (CKD-EPI)NonAf (>60 ml/min/1.73 sqM) Glucose (74-99) mg/dL Plasma Lactic Acid [place] (0.7-2.0) mmol/L Calcium (8.4-10.2) mg/dL Total Bilirubin (0.2-1.3) mg/dL AST (17-59) U/L ALT (4-49) U/L Alkaline Phosphatase (38-126) U/L Troponin I (0.000-0.034) ng/mL Total Protein (6.3-8.2) g/dL Albumin (3.5-5.0) g/dL Amylase (30-110) U/L Lipase (23-300) U/L Urine Color Dark Brown Urine Appearance Clear (Clear) Urine pH 5.0 (5.0-8.0) Ur Specific [place] >1.050 H (1.001-1.035) Urine Protein Negative (Negative) Urine Glucose (UA) Negative (Negative) Urine Ketones Negative (Negative) Urine Blood Small H (Negative) Urine Nitrite Negative (Negative) Urine Bilirubin Negative (Negative) Urine Urobilinogen <2.0 (<2.0) mg/dL Ur Leukocyte Esterase Negative (Negative) Urine RBC 12 H (0-5) /hpf Urine WBC 2 (0-5) /hpf Urine Mucus Rare H (None) /hpf 05/09/22 05/09/22 05/09/22 Range/Units 11:17 11:17 11:17 WBC (3.8-10.6) k/uL RBC (4.30-5.90) m/uL Hgb (13.0-17.5) gm/dL Hct (39.0-53.0) % MCV (80.0-100.0) fL MCH (25.0-35.0) pg MCHC (31.0-37.0) g/dL RDW (11.5-15.5) % Plt Count (150-450) k/uL MPV Neutrophils % % Lymphocytes % % Monocytes % % Eosinophils % % Basophils % % Neutrophils # (1.3-7.7) k/uL Lymphocytes # (1.0-4.8) k/uL Monocytes # (0-1.0) k/uL Eosinophils # (0-0.7) k/uL Basophils # (0-0.2) k/uL PT (9.0-12.0) sec INR (<1.2) APTT (22.0-30.0) sec Sodium 135 L (137-145) mmol/L Potassium 4.2 (3.5-5.1) mmol/L Chloride 106 (98-107) mmol/L Carbon Dioxide 23 (22-30) mmol/L Anion Gap 6 mmol/L BUN 29 H (9-20) mg/dL Creatinine 1.05 (0.66-1.25) mg/dL Est GFR (CKD-EPI)AfAm 79 (>60 ml/min/1.73 sqM) Est GFR (CKD-EPI)NonAf 69 (>60 ml/min/1.73 sqM) Glucose 84 (74-99) mg/dL Plasma Lactic Acid S[place] 1.1 (0.7-2.0) mmol/L Calcium 7.8 L (8.4-10.2) mg/dL Total Bilirubin 1.2 (0.2-1.3) mg/dL AST 16 L (17-59) U/L ALT 21 (4-49) U/L Alkaline Phosphatase 68 (38-126) U/L Troponin I <0.012 (0.000-0.034) ng/mL Total Protein 5.9 L (6.3-8.2) g/dL Albumin 3.0 L (3.5-5.0) g/dL Amylase 130 H (30-110) U/L Lipase 529 H (23-300) U/L Urine Color Urine Appearance (Clear) Urine pH (5.0-8.0) Ur Specific [place] (1.001-1.035) Urine Protein (Negative) Urine Glucose (UA) (Negative) Urine Ketones (Negative) Urine Blood (Negative) Urine Nitrite (Negative) Urine Bilirubin (Negative) Urine Urobilinogen (<2.0) mg/dL Ur Leukocyte Esterase (Negative) Urine RBC (0-5) /hpf Urine WBC (0-5) /hpf Urine Mucus (None) /hpf - EKG Data -: EKG Interpreted by Me EKG Comments: 12-lead Electrocardiogram Interpretation Note EKG was reviewed and interpreted by myself. 12-lead ECG performed at 11:30 is interpreted by me as revealing normal sinus rhythm at a rate of 71 beats per minute. [place] is normal. MO interval is 171 ms, QRS duration is 87 ms, QTc is or 133 ms.. There were no ST or T wave abnormalities to suggest myocardial ischemia or injury. R wave progression across the precordium was satisfactory. By my interpretation this EKG is non-diagnostic for acute ischemia. There is some baseline motion artifact present which does make interpretation difficult but no obvious atypical findings on this EKG. Critical Care Time Critical Care Time: Yes Total Critical Care Time: 35 Critical Care Time: Upon my evaluation, this patient had a high probability of imminent or life- threatening deterioration due to sepsis, hypotension, which required my direct attention, intervention, and personal management. I have personally provided 35 minutes of critical care time exclusive of time spent on separately billable procedures. Time includes review of laboratory data, radiology results, discussion with consultants, and monitoring for potential decompensation. Interventions were performed as documented in my note. Disposition Clinical Impression: Sepsis, Hypotension, Elevated lipase Disposition: ADMITTED IP TO THIS HOSP Condition: Serious Time of Disposition: 14:50
[2022-05-09] MEDS ORDERED: ALBUTEROL HFA INHALER INHALATION PRN (15:21)
[2022-05-09] MEDS ORDERED: Acetaminophen-Codeine 300-30mg TAB PO PRN (15:21)
[2022-05-09] MEDS ORDERED: HYDROcodone/APAP 5-325MG 1 EACH TAB PO PRN (15:21)
[2022-05-09] MEDS ORDERED: ALBUTEROL NEBULIZED 2.5 MG/3 ML INHALATION PRN (15:21)
[2022-05-09 15:26] LABS: Appearance,Urine Clear (Clear); Bilirubin,Urine Negative (Negative); Blood,Urine Small (Negative); Color,Urine Dark Brown; Glucose,Urine (UA) Negative (Negative); Ketones,Urine Negative (Negative); Leukocyte Esterase,Urine Negative (Negative); Mucus,Urine Rare /hpf; Nitrite,Urine Negative (Negative); Protein,Urine Negative (Negative); RBC,Urine 12 /hpf (0-5); Urobilinogen,Urine <2.0 mg/dL (<2.0); WBC,Urine 2 /hpf (0-5)
[2022-05-09 15:33] LABS: Specific Gravity,Urine >1.050 (1.001-1.035)
[2022-05-09] MEDS ORDERED: APIXABAN 5 MG TAB PO SCH (16:00)
[2022-05-09] MEDS ORDERED: TAMSULOSIN 0.4 MG CAP.ER.24H PO SCH (16:00)
[2022-05-09] MEDS ORDERED: GABAPENTIN 100 MG CAP PO SCH (16:00)
[2022-05-09] MEDS ORDERED: METOPROLOL TARTRATE 50 MG TAB PO SCH (16:00)
[2022-05-09] MEDS ORDERED: NON FORMULARY DRUG (Fluticasone Propion/Salmeterol [Advair 250-50 Diskus] 1 EACH Each) INHALATION SCH (20:00)
[2022-05-09] MEDS: SYMBICORT 160-4.5 MCG INHALER INHALATION SCH (20:54)
[2022-05-09] MEDS: ALBUTEROL HFA INHALER INHALATION PRN (20:54)
[2022-05-09] MEDS ORDERED: HEPARIN SODIUM,PORCINE/PF 5,000 UNIT/0.5 ML SYRINGE SQ SCH (21:00)
[2022-05-10] MEDS: CEFEPIME 2 GM in SODIUM CHLORIDE 0.9% 100 ML IVPB SCH ×2 (00:15→11:35)
[2022-05-10] MEDS: VANCOMYCIN 1,250 MG in SODIUM CHLORIDE 0.9% 250 ML IVPB SCH ×2 (05:16→22:36)
[2022-05-10] MEDS: ALBUTEROL HFA INHALER INHALATION PRN ×3 (07:56→15:29)
[2022-05-10] MEDS: SYMBICORT 160-4.5 MCG INHALER INHALATION SCH ×2 (07:56→20:39)
[2022-05-10] MEDS: TIOTROPIUM 2.5 MCG INHALER INHALATION PRN (07:56)
[2022-05-10 09:06] LABS: African American GFR (CKD) 95.1 (60.0-200.0); Anion Gap 10.4 mmol/L (10.00-18.00); Blood Urea Nitrogen 25.2 mg/dL (9.0-27.0); Calcium 7.9 mg/dL (8.7-10.3); Carbon Dioxide 20.6 mmol/L (20.0-27.5); Non-African American GFR(CKD) 82.1 (60.0-200.0)
[2022-05-10 09:07] LABS: Basophils # (A) 0.02 X 10*3/uL (0.00-0.10); Basophils % (A) 0.2 %; Eosinophils # (A) 0 X 10*3/uL (0.04-0.35); Eosinophils % (A) 0 %; HCT 35.1 % (39.6-50.0); HGB 11.1 g/dL (13.0-17.0); Immature Grans, Automated 0.6 %; Lymphocytes # (A) 0.63 X 10*3/uL (0.90-5.00); Lymphocytes % (A) 7.5 %; MCH 31.6 pg (27.0-32.0); MCHC 31.6 g/dL (32.0-37.0); Mean Platelet Volume 11.1 fL (9.5-12.2); Monocytes # (A) 0.29 X 10*3/uL (0.20-1.00); Monocytes % (A) 3.4 %; NRBC Per 100 WBC 0 /100 WBCS (0.0-0.0); Neutrophils # (A) 7.43 X 10*3/uL (1.80-7.70); Neutrophils % (A) 88.3 %; Platelet Count 192 X 10*3/uL (140-440); RBC 3.51 X 10*6/uL (4.40-5.60); RDW 13.4 % (11.5-14.5); WBC 8.42 X 10*3/uL (4.50-10.00)
[2022-05-10] MEDS: GABAPENTIN 100 MG CAP PO SCH ×2 (09:20→22:36)
[2022-05-10] MEDS: METOPROLOL TARTRATE 50 MG TAB PO SCH ×2 (09:20→22:36)
[2022-05-10] MEDS: polyethylene glycoL 3350 17 GM POWD.PACK PO SCH (09:21)
[2022-05-10] MEDS: APIXABAN 5 MG TAB PO SCH ×2 (09:21→22:36)
[2022-05-10] MEDS: TAMSULOSIN 0.4 MG CAP.ER.24H PO SCH ×2 (09:21→22:36)
--- NOTE | 2022-05-10 13:13 | P.HPIM ---
History of Present Illness H&P Date: 05/10/22 Review of Systems Constitutional: Reports weakness Ears, nose, mouth and throat: Reports as per HPI Cardiovascular: Reports as per HPI Respiratory: Reports congestion, Reports cough, Reports wheezing Gastrointestinal: Reports as per HPI (Indwelling Munoz, for approximately 1 week has significant prostatic enlargement significant COPD) Genitourinary: Reports urinary hesitancy, Reports urinary retention Musculoskeletal: Reports as per HPI, Reports loss of height Integumentary: Reports as per HPI Neurological: Reports paresthesias (Significant low back pain consistent with lumbar stenosis and lumbar radiculopathy), Reports weakness Psychiatric: Reports as per HPI Past Medical History Past Medical History: Atrial Fibrillation, Atrial Flutter, COPD, GERD/Reflux, Pneumonia, Prostate Disorder Additional Past Medical History / Comment(s): Paroxysmal Afib, bronchitis, BPH, constipation, vertigo, chronic low back pain/DDD. covid 06/22 History of Any Multi-Drug Resistant Organisms: None Reported Past Surgical History: Back Surgery Additional Past Surgical History / Comment(s): Bilateral cataract removals-lens implants, colonoscopy, multiple kyphoplasties. Past Anesthesia/Blood Transfusion Reactions: No Reported Reaction Additional Past Anesthesia/Blood Transfusion Reaction / Comment(s): Has never received any blood transfusions. Past Psychological History: No Psychological Hx Reported Additional Psychological History / Comment(s): Pt resides with his son, (Jt) and grandson. They live in a trailer. Pt manages his own medications. He has a nebulizer. His son cooks and drives pt to [employer]. Pt uses a walker/wheelchair. He has a nebulizer. Smoking Status: Current every day smoker Past Alcohol Use History: None Reported Additional Past Alcohol Use History / Comment(s): Pt started smoking age [age]) got up to 5 ppd for many years then cut down to 3 ppd, currently smoking 1 ppd. Past Drug Use History: None Reported - Past Family History Mother Family Medical History: AFIB, Dementia Father Family Medical History: Myocardial Infarction ([place]) Additional Family Medical History / Comment(s): in his 70's [place] Medications and Allergies Home Medications Medication Instructions Recorded Confirmed Type Tamsulosin HCl [Flomax] 0.4 mg PO BID@0400,1600 03/24/18 05/09/22 History Apixaban [Eliquis] 5 mg PO BID@0400,1600 09/14/18 05/09/22 History Metoprolol Tartrate [Lopressor] 50 mg PO BID@0400,1600 02/04/19 05/09/22 History Budesonide/Formoterol Fumarate 2 puff INHALATION RT-BID 05/21/20 05/09/22 Histo ry [Symbicort 160-4.5 Mcg Inhaler] Fluticasone Propion/Salmeterol 1 puff INHALATION RT-BID 04/07/21 05/09/22 History [Advair 250-50 Diskus] Gabapentin [Neurontin] 200 mg PO BID@0400,1600 04/07/21 05/09/22 History Albuterol Nebulized [Ventolin 2.5 mg INHALATION RT-Q4H PRN 09/20/21 05/09/22 History Nebulized] Albuterol Inhaler [Ventolin Hfa 1 puff INHALATION RT-Q4H PRN 11/17/21 05/09/22 History Inhaler] Ipratropium Nebulized [Atrovent 0.5 mg INHALATION RT-Q4H PRN 11/17/21 05/09/22 History Nebulized 0.2 MG/ML] polyethylene glycoL 3350 [Miralax] 17 gm PO DAILY packet 04/09/22 05/09/22 Rx Acetaminophen-Codeine 300-30mg 1 tab PO Q6H PRN 04/16/22 05/09/22 History [Tylenol w/codeine #3] Docusate [Colace] 100 mg PO DAILY #14 capsule 04/29/22 05/09/22 Rx Alendronate Sodium [Fosamax] 70 mg PO GROVES 05/02/22 05/09/22 History Ibuprofen [Motrin] 600 mg PO Q6HR PRN #12 tab 05/02/22 05/09/22 Rx HYDROcodone/APAP 5-325MG [[place] 1 tab PO Q8H PRN 05/09/22 05/09/22 History 5-325] Allergies Allergy/AdvReac Type Severity Reaction Status Date / Time Iodinated Contrast Media Allergy Rash/Hives Verified 05/09/22 12:32 [Iodinated Contrast- Oral and IV Dye] latex Allergy Rash/Hives Verified 05/09/22 12:32 Physical Exam Osteopathic Statement: *. No significant issues noted on an osteopathic structural exam other than those noted in the History and Physical/Consult. Vitals: Vital Signs Temp Pulse Resp BP Pulse Ox 05/10/22 07:01 97.6 F 76 18 116/68 94 L 05/10/22 02:00 98.0 F 82 17 141/78 95 05/09/22 17:53 97.5 F L 79 18 114/72 97 Intake and Output 05/09/22 05/10/22 05/10/22 22:59 06:59 14:59 Output Total 400 1200 350 Balance -400 -1200 -350 Output: Urine 400 1200 350 Other: Voiding Method Indwelling Catheter Indwelling Catheter # Bowel Movements 1 Weight 65.317 kg General: [Patient awake, alert and oriented times 3. Patient in no acute distress.] HEENT: [PERRL. EOMI. No pharyngeal erythema or exudate.] Neck: [No adenopathy.] Cardiac: [Heart regular in rate and rhythm. No S3. No S4. No clicks, rubs. No murmur.] Lungs: [Clear to auscultation bilaterally.] Abdomen: [No mass. No organomegaly. Bowel sounds presnt and normoactive in all 4 quadrants.] Extremes: [No edema no cyanosis no claudication normal pulses] : Normal male genitalia with indwelling Munoz Musculoskeletal: [No joint erythema, edema or tenderness.] Skin: [No rash.] Neurologic: [No lateralizing deficits. CN II - XII grossly intact.] Lymphatic: [No adenopathy.] Results CBC & Chem 7: 05/10/22 06:36 05/10/22 06:36 Labs: Abnormal Lab Results - Last 24 Hours (Table) 05/09/22 05/10/22 05/10/22 Range/Units 11:17 06:36 06:36 RBC 3.51 L (4.40-5.60) X 10*6/uL Hgb 11.1 L (13.0-17.0) g/dL Hct 35.1 L (39.6-50.0) % MCV 100.0 H (80.0-97.0) fL MCHC 31.6 L (32.0-37.0) g/dL Immature Gran # 0.05 H (0.00-0.04) X 10*3/uL Lymphocytes # 0.63 L (0.90-5.00) X 10*3/uL Eosinophils # 0 L (0.04-0.35) X 10*3/uL BUN/Creatinine Ratio 28.00 H (12.00-20.00) Ratio Glucose 142 H (70-110) mg/dL Calcium 7.9 L (8.7-10.3) mg/dL Ur Specific [place] >1.050 H (1.001-1.035) Urine Blood Small H (Negative) Urine RBC 12 H (0-5) /hpf Urine Mucus Rare H (None) /hpf Thrombosis Risk Factor Assmnt - DVT/VTE Prophylaxis DVT/VTE Prophylaxis: Pharmacologic Prophylaxis ordered - Choose All That Apply Any of the Below Risk Factors Present?: No Other Risk Factors: Yes Each Risk Factor Represents 3 Points: Age 75 years or older Thrombosis Risk Factor Assessment Total Risk Factor Score: 3 Thrombosis Risk Factor Assessment Level: Moderate Risk Assessment and Plan (1) Elevated lipase Current Visit: Yes Status: Acute Code(s): R74.8 - ABNORMAL LEVELS OF OTHER SERUM ENZYMES SNOMED Code(s): 906622047 (2) High risk for readmission Current Visit: Yes Status: Acute Code(s): Z91.89 - OTH PERSONAL RISK FACTORS, NOT ELSEWHERE CLASSIFIED SNOMED Code(s): 472615675 (3) Hypotension Current Visit: Yes Status: Acute Code(s): I95.9 - HYPOTENSION, UNSPECIFIED SNOMED Code(s): 75713716 (4) Sepsis Current Visit: Yes Status: Acute Code(s): A41.9 - SEPSIS, UNSPECIFIED ORGANISM SNOMED Code(s): 85874440 (5) Acute exacerbation of chronic obstructive airways disease Current Visit: No Status: Acute Code(s): J44.1 - CHRONIC OBSTRUCTIVE PULMONARY DISEASE W (ACUTE) EXACERBATION SNOMED Code(s): 579606689 (6) Acute hypercapnic respiratory failure Current Visit: No Status: Acute Code(s): J96.02 - ACUTE RESPIRATORY FAILURE WITH HYPERCAPNIA SNOMED Code(s): 860919069 (7) Acute respiratory distress syndrome in adult Current Visit: No Status: Acute Code(s): J80 - ACUTE RESPIRATORY DISTRESS SYNDROME SNOMED Code(s): 91947681 (8) Acute urinary retention Current Visit: No Status: Acute Code(s): R33.8 - OTHER RETENTION OF URINE SNOMED Code(s): 082099516 (9) Atrial fibrillation Current Visit: No Status: Acute Code(s): I48.91 - UNSPECIFIED ATRIAL FIBRILLATION SNOMED Code(s): 12084678 (10) BPH (benign prostatic hyperplasia) Current Visit: No Status: Acute Code(s): N40.0 - BENIGN PROSTATIC HYPERPLASIA WITHOUT LOWER URINRY TRACT SYMP SNOMED Code(s): 760154385 (11) Body aches Current Visit: No Status: Acute Code(s): R52 - PAIN, UNSPECIFIED SNOMED Code(s): 57372133 (12) COPD exacerbation Current Visit: No Status: Acute Code(s): J44.1 - CHRONIC OBSTRUCTIVE PULMONARY DISEASE W (ACUTE) EXACERBATION SNOMED Code(s): 338833494 (13) COPD with acute exacerbation Current Visit: No Status: Acute Code(s): J44.1 - CHRONIC OBSTRUCTIVE PULMONARY DISEASE W (ACUTE) EXACERBATION SNOMED Code(s): 454683225 (14) Chronic low back pain Current Visit: No Status: Acute Code(s): M54.5 - LOW BACK PAIN * DO NOT USE *; G89.29 - OTHER CHRONIC PAIN SNOMED Code(s): 018094965 (15) Constipated Current Visit: No Status: Acute Code(s): K59.00 - CONSTIPATION, UNSPECIFIED SNOMED Code(s): 45086407 (16) Failure of outpatient treatment Current Visit: No Status: Acute Code(s): Z78.9 - OTHER SPECIFIED HEALTH STATUS SNOMED Code(s): 802453799 (17) Hypoxia Current Visit: No Status: Acute Code(s): R09.02 - HYPOXEMIA SNOMED Code(s ): 761585139 (18) long-term (current) use of anticoagulants Current Visit: No Status: Acute Code(s): Z79.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 SNOMED Code(s): 004026152 (19) Nicotine dependence Current Visit: No Status: Acute Code(s): F17.200 - NICOTINE DEPENDENCE, UNSPECIFIED, UNCOMPLICATED SNOMED Code(s): 53622039 (20) Pneumonia Current Visit: No Status: Acute Code(s): J18.9 - PNEUMONIA, UNSPECIFIED ORGANISM SNOMED Code(s): 117129858 Plan: Urosepsis IV antibiotics Hypotension secondary to sepsis IV fluids Pulmonary infiltrate continue IV antibiotic Pancreatitis , consider HIDA scan Consult urology for evaluation chronic indwelling Munoz secondary to benign prostatic enlargement General surgery consult regarding pancreatitis[note patient is non-drinker] Time with Patient: Greater than 30
--- NOTE | 2022-05-10 14:58 | P.GSCN ---
History of Present Illness Consult date: 05/10/22 Reason for Consult: Urosepsis, chronic indwelling catheter Requesting physician: Fernando Lambert Jr History of present illness: The patient is a 77 year-old male with a past medical history of A. fib, COPD, GERD, pneumonia, BPH, chronic lower back pain with multiple surgeries. He also has a history of chronic recurrent urinary retention which requires a chronic Munoz catheter. He follows up with a urologist over at [place]. He was deemed a poor surgical candidate for TURP given COPD. patient was sent to the emergency department from Dr. Lambert's office with hypotension and weakness and suspected UTI. ED workup included a CBC with leukocytosis present WBC 11.3, Lactic acid 1.1, Amylase 130, and Lipase 529. Urinalysis negative for nitrates, negative leukocyte, esterase, WBC 2. Blood cultures pending. CT abdomen/pelvis with contrast shows no acute process within the abdomen, a 4 cm abdominal aortic aneurysm is unchanged, kidneys and ureters are normal, it is collapsed around Munoz catheter and not well evaluated. Review of Systems - Constitutional Reports weakness, Denies chills, Denies fever - EENT Ears, nose, mouth and throat: Denies headache - Cardiovascular Denies chest pain, Denies shortness of breath - Gastrointestinal Denies abdominal pain, Denies nausea, Denies vomiting - Genitourinary Denies flank pain, Denies hematuria Past Medical History Past Medical History: Atrial Fibrillation, Atrial Flutter, COPD, GERD/Reflux, Pneumonia, Prostate Disorder Additional Past Medical History / Comment(s): Paroxysmal Afib, bronchitis, BPH, constipation, vertigo, chronic low back pain/DDD. covid 06/22 History of Any Multi-Drug Resistant Organisms: None Reported Past Surgical History: Back Surgery Additional Past Surgical History / Comment(s): Bilateral cataract removals-lens implants, colonoscopy, multiple kyphoplasties. Past Anesthesia/Blood Transfusion Reactions: No Reported Reaction Additional Past Anesthesia/Blood Transfusion Reaction / Comm: Has never received any blood transfusions. Past Psychological History: No Psychological Hx Reported Additional Psychological History / Comment(s): Pt resides with his son, (Jt) and grandson. They live in a trailer. Pt manages his own medications. He has a nebulizer. His son cooks and drives pt to [employer]. Pt uses a walker/wheelchair. He has a nebulizer. Smoking Status: Current every day smoker Past Alcohol Use History: None Reported Additional Past Alcohol Use History / Comment(s): Pt started smoking age 11(1957) got up to 5 ppd for many years then cut down to 3 ppd, currently smoking 1 ppd. Past Drug Use History: None Reported - Past Family History Mother Family Medical History: AFIB, Dementia Father Family Medical History: Myocardial Infarction ([place]) Additional Family Medical History / Comment(s): in his 70's [place] Medications and Allergies Home Medications Medication Instructions Recorded Confirmed Type Tamsulosin HCl [Flomax] 0.4 mg PO BID@0400,1600 03/24/18 05/09/22 History Apixaban [Eliquis] 5 mg PO BID@0400,1600 09/14/18 05/09/22 History Metoprolol Tartrate [Lopressor] 50 mg PO BID@0400,1600 02/04/19 05/09/22 History Budesonide/Formoterol Fumarate 2 puff INHALATION RT-BID 05/21/20 05/09/22 History [Symbicort 160-4.5 Mcg Inhaler] Fluticasone Propion/Salmeterol 1 puff INHALATION RT-BID 04/07/21 05/09/22 History [Advair 250-50 Diskus] Gabapentin [Neurontin] 200 mg PO BID@0400,1600 04/07/21 05/09/22 History Albuterol Nebulized [Ventolin 2.5 mg INHALATION RT-Q4H PRN 09/20/21 05/09/22 History Nebulized] Albuterol Inhaler [Ventolin Hfa 1 puff INHALATION RT-Q4H PRN 11/17/21 05/09/22 History Inhaler] Ipratropium Nebulized [Atrovent 0.5 mg INHALATION RT-Q4H PRN 11/17/21 05/09/22 History Nebulized 0.2 MG/ML] polyethylene glycoL 3350 [Miralax] 17 gm PO DAILY packet 04/09/22 05/09/22 Rx Acetaminophen-Codeine 300-30mg 1 tab PO Q6H PRN 04/16/22 05/09/22 History [Tylenol w/codeine #3] Docusate [Colace] 100 mg PO DAILY #14 capsule 04/29/22 05/09/22 Rx Alendronate Sodium [Fosamax] 70 mg PO GROVES 05/02/22 05/09/22 History Ibuprofen [Motrin] 600 mg PO Q6HR PRN #12 tab 05/02/22 05/09/22 Rx HYDROcodone/APAP 5-325MG [[place] 1 tab PO Q8H PRN 05/09/22 05/09/22 History 5-325] Allergies Allergy/AdvReac Type Severity Reaction Status Date / Time Iodinated Contrast Media Allergy Rash/Hives Verified 05/09/22 12:32 [Iodinated Contrast- Oral and IV Dye] latex Allergy Rash/Hives Verified 05/09/22 12:32 Surgical - Exam Vital Signs Temp Pulse Resp BP Pulse Ox 97.4 F L 75 20 87/55 96 05/09/22 10:53 05/09/22 10:53 05/09/22 10:53 05/09/22 10:53 05/09/22 10:53 General: Well developed, well nourished. No acute distress. HEENT: Head is atraumatic, normocephalic. Lungs: Respirations even and nonlabored. On RA Abdomen/GI: Soft. No guarding, rigidity, or abdominal tenderness. : No suprapubic tenderness. Munoz catheter in place draining clear yellow urine. Skin: Warm and dry Neurologic: Alert and oriented 3, CN II-XII grossly intact. No focal deficits. Psychiatric: Appropriate mood and affect. Results - Labs 05/10/22 06:36 05/10/22 06:36 Abnormal Lab Results - Last 24 Hours (Table) 05/09/22 05/10/22 05/10/22 Range/Units 11:17 06:36 06:36 RBC 3.51 L (4.40-5.60) X 10*6/uL Hgb 11.1 L (13.0-17.0) g/dL Hct 35.1 L (39.6-50.0) % MCV 100.0 H (80.0-97.0) fL MCHC 31.6 L (32.0-37.0) g/dL Immature Gran # 0.05 H (0.00-0.04) X 10*3/uL Lymphocytes # 0.63 L (0.90-5.00) X 10*3/uL Eosinophils # 0 L (0.04-0.35) X 10*3/uL BUN/Creatinine Ratio 28.00 H (12.00-20.00) Ratio Glucose 142 H (70-110) mg/dL Calcium 7.9 L (8.7-10.3) mg/dL Ur Specific [place] >1.050 H (1.001-1.035) Urine Blood Small H (Negative) Urine RBC 12 H (0-5) /hpf Urine Mucus Rare H (None) /hpf Diabetes panel 05/10/22 Range/Units 06:36 Sodium 137 (135-145) mmol/L Potassium 4.0 (3.5-5.5) mmol/L Chloride 106 (96-109) mmol/L Carbon Dioxide 20.6 (20.0-27.5) mmol/L BUN 25.2 (9.0-27.0) mg/dL Creatinine 0.9 (0.6-1.5) mg/dL Glucose 142 H (70-110) mg/dL Calcium 7.9 L (8.7-10.3) mg/dL Calcium panel 05/10/22 Range/Units 06:36 Calcium 7.9 L (8.7-10.3) mg/dL Pituitary panel 05/10/22 Range/Units 06:36 Sodium 137 (135-145) mmol/L Potassium 4.0 (3.5-5.5) mmol/L Chloride 106 (96-109) mmol/L Carbon Dioxide 20.6 (20.0-27.5) mmol/L BUN 25.2 (9.0-27.0) mg/dL Creatinine 0.9 (0.6-1.5) mg/dL Glucose 142 H (70-110) mg/dL Calcium 7.9 L (8.7-10.3) mg/dL Adrenal panel 05/10/22 Range/Units 06:36 Sodium 137 (135-145) mmol/L Potassium 4.0 (3.5-5.5) mmol/L Chloride 106 (96-109) mmol/L Carbon Dioxide 20.6 (20.0-27.5) mmol/L BUN 25.2 (9.0-27.0) mg/dL Creatinine 0.9 (0.6-1.5) mg/dL Glucose 142 H (70-110) mg/dL Calcium 7.9 L (8.7-10.3) mg/dL - Imaging CT scan - abdomen: report reviewed CT scan - pelvis: report reviewed Assessment and Plan Assessment: The patient denies any fever/chills, hematuria, abdominal pain, flank pain, or nausea/vomiting. He does report feeling weak for the last 2 days. He is afebrile, vitals signs are stable. His Munoz catheter was exchanged yesterday in the ED and is draining clear, yellow urine. It is noted that he has a Latex allergy. He currently has a silicone catheter in place. Urinary tract not likely the source of his infection. (1) Chronic indwelling Munoz catheter Current Visit: Yes Status: Acute Code(s): Z97.8 - PRESENCE OF OTHER SPECIFIED DEVICES SNOMED Code(s): 244743276 Plan: - Maintain Munoz catheter - Continue Flomax Thank you for this consultation Impression and plan of care have been directed as dictated by the signing ph ysician. Janeen Park nurse practitioner acting as scribe for signing physician. Janeen Park [facility] Palliative Care/Urology Spectralink [phone] Email: [email or web address] The patient has been evaluated by me and I concur with the above mentioned note, Bryce Villagomez MD
[2022-05-10] MEDS: NICOTINE 21MG/24HR PATCH TRANSDERM SCH (15:08)
--- NOTE | 2022-05-10 15:22 | CDI ---
Documentation Clarification Form Date: 05/10/2022 2:55:23 PM From: Gloria Romero RN CCDS Phone: [phone] Admit Date: 05/09/2022 3:07:00 PM Patient Name: Shawn Hinkle Visit Number: [id number] Discharge Date: ATTENTION: The Clinical Documentation Specialists (CDI) and [facility] Coding Staff appreciate your assistance in clarifying documentation. Please respond to the clarification below the line at the bottom and electronically sign. The CDI & [facility] Coding staff will review the response and follow-up if needed. Please note: Queries are made part of the Legal Health Record. If you have any questions, please contact the author of this message via ITS. Dr. Fernando Lambert Acute Hypercapnic Respiratory Failure is documented 05/10,H&P, which may lack sufficient clinical evidence/support in the medical record. Additional clarification is requested. History/Risk Factors: 77 year old male presents to the ED from Dr Brown office for hypotension related to Sepsis and generalized weakness. Medical History: Indwelling Munoz catheter for approximately one week. Atrial Fibrillation, COPD, Pneumonia and GERD. 05/10, ED note. Clinical Indicators: 05/09 VSS: B/P 87/55; HR 75; Temp 97.4 F Oral; RR 20; SpO2 96% room air. SpO2: 05/09 17:53 97% room air , RR 18 SpO2: 05/10 07:01 94% room air, RR 17 05/09 ED Note: Clear breath sounds bilaterally. 05/10 H&P: Respiratory: Reports congestion, cough and wheezing. Lungs: Clear to auscultation bilaterally. 05/09 CXR: Scattered interstitial changes more prominent in the left lung which could represent an inflammatory or infectious process. These findings may also be chronic as they do appear very similar to previous exam. Treatment: Ventolin inhaler prn; Symbicort inhaler bid berna; Spiriva Respimat prn daily Please clarify if Acute Hypercapnic Respiratory Failure is a valid diagnosis? [ x ] No, Acute Hypercapnic Respiratory Failure is ruled out [ ] Yes, Acute Hypercapnic Respiratory Failure is present as evidence by (additional clinical support): [ ] Other (please specify diagnosis) [ ] Unable to determine (Template Last Revised: May 2020) MTDD
--- NOTE | 2022-05-10 15:32 | CDI ---
Documentation Clarification Form Date: 05/10/2022 3:23:11 PM From: Gloria Romero RN CCDS Phone: [phone] Admit Date: 05/09/2022 3:07:00 PM Patient Name: Shawn Hinkle Visit Number: [id number] Discharge Date: ATTENTION: The Clinical Documentation Specialists (CDI) and [facility] Coding Staff appreciate your assistance in clarifying documentation. Please respond to the clarification below the line at the bottom and electronically sign. The CDI & [facility] Coding staff will review the response and follow-up if needed. Please note: Queries are made part of the Legal Health Record. If you have any questions, please contact the author of this message via ITS. Dr. Fernando Lambert Acute Respiratory Distress Syndrome is documented 05/10, in the H&P which may lack sufficient clinical evidence/support in the medical record. Additional clarification is requested. History/Risk Factors: 77 year old male presents to the ED from Dr Brown office for hypotension related to Sepsis and generalized weakness. Medical History: Indwelling Munoz catheter for approximately one week. Atrial Fibrillation, COPD, Pneumonia and GERD. 05/10, ED note. Clinical Indicators: 05/09 VSS: B/P 87/55; HR 75; Temp 97.4 F Oral; RR 20; SpO2 96% room air. SpO2: 05/09 17:53 97% room air , RR 18 SpO2: 05/10 07:01 94% room air, RR 17 05/09 ED Note: Clear breath sounds bilaterally. 05/10 H&P: Respiratory: Reports congestion, cough and wheezing. Lungs: Clear to auscultation bilaterally. 05/09 CXR: Scattered interstitial changes more prominent in the left lung which could represent an inflammatory or infectious process. These findings may also be chronic as they do appear very similar to previous exam. Treatment: Ventolin inhaler prn; Symbicort inhaler bid berna; Spiriva Respimat prn daily Please clarify if Acute Respiratory Distress Syndrome is a valid diagnosis? [ ] No, Acute Respiratory Distress Syndrome is ruled out [ ] Yes, Acute Respiratory Distress Syndrome is present as evidence by (additional clinical support): [ ] Other (please specify diagnosis) [ ] Unable to determine (Template Last Revised: May 2020) MTDD
[2022-05-11] MEDS: CEFEPIME 2 GM in SODIUM CHLORIDE 0.9% 100 ML IVPB SCH ×3 (01:18→20:57)
[2022-05-11] MEDS: SYMBICORT 160-4.5 MCG INHALER INHALATION SCH ×2 (08:45→19:39)
--- NOTE | 2022-05-11 09:14 | NM ---
Nuclear medicine hepatobiliary scan. HISTORY: Pain. DOSAGE: The patient received 1.3 mcg Kinevac. and 5.2 mCi of Technetium 99m Choletec. FINDINGS: There is normal hepatic extraction. Small focal defect near the dome of the liver. The gal lbladder is seen by 15 minutes. There is biliary to bowel clearance by 15 minutes. Ejection fractio n is 96%. IMPRESSION: 1. No evidence of cholecystitis. Ejection fraction of 96% can be occasionally associated with hyperdy namic gallbladder. 2. There is a small focal defect in the dome of the liver may be artifactual. Recent CT scan demonstr ated no definite abnormality.
[2022-05-11] MEDS: METOPROLOL TARTRATE 50 MG TAB PO SCH ×2 (10:34→20:57)
[2022-05-11] MEDS: TAMSULOSIN 0.4 MG CAP.ER.24H PO SCH ×2 (10:35→20:56)
[2022-05-11] MEDS: GABAPENTIN 100 MG CAP PO SCH ×2 (10:35→20:56)
[2022-05-11] MEDS: NICOTINE 21MG/24HR PATCH TRANSDERM SCH (10:35)
[2022-05-11] MEDS: polyethylene glycoL 3350 17 GM POWD.PACK PO SCH (10:35)
[2022-05-11] MEDS: APIXABAN 5 MG TAB PO SCH ×2 (10:39→20:56)
[2022-05-11 11:05] LABS: African American GFR (CKD) 99.9 (60.0-200.0); Non-African American GFR(CKD) 86.2 (60.0-200.0)
--- NOTE | 2022-05-11 11:10 | P.PN ---
Subjective Progress Note Date: 05/11/22 The patient is a 77 year-old male with a past medical history of A. fib, COPD, GERD, pneumonia, BPH, chronic lower back pain with multiple surgeries. He also has a history of chronic recurrent urinary retention which requires a chronic Munoz catheter. He follows up with a urologist over at [facility]. He was deemed a poor surgical candidate for TURP given COPD. patient was sent to the emergency department from Dr. Lambert's office with hypotension and weakness and suspected UTI. ED workup included a CBC with leukocytosis present WBC 11.3, Lactic acid 1.1, Amylase 130, and Lipase 529. Urinalysis negative for nitrates, negative leukocyte, esterase, WBC 2. Blood cultures pending. CT abdomen/pelvis with contrast shows no acute process within the abdomen, a 4 cm abdominal aortic aneurysm is unchanged, kidneys and ureters are normal, it is collapsed around Munoz catheter and not well evaluated. 05/10 The patient denies any fever/chills, hematuria, abdominal pain, flank pain, or nausea/vomiting. He does report feeling weak for the last 2 days. He is afebrile, vitals signs are stable. His Munoz catheter was exchanged yesterday in the ED and is draining clear, yellow urine. It is noted that he has a Latex allergy. He currently has a silicone catheter in place. Urinary tract not likely the source of his infection. Objective - Vital Signs Vital signs: Vital Signs Temp 98.0 F 05/11/22 09:07 Pulse 73 05/11/22 09:07 Resp 20 05/11/22 09:07 BP 148/79 05/11/22 09:07 Pulse Ox 93 L 05/11/22 09:07 FiO2 Intake & Output 05/10/22 05/11/22 05/11/22 18:59 06:59 18:59 Intake Total 100 Output Total 350 1800 625 Balance -250 -1800 -625 Intake: Intake, IV Titration 100 Amount Cefepime 2 gm In Sodium 100 Chloride 0.9% 100 ml @ 25 mls/hr IVPB Q12H [facility] Rx# :[id number] Output: Urine 350 1800 625 Other: Voiding Method Indwelling Catheter Indwelling Catheter # Bowel Movements 1 2 1 - Exam General: Well developed, well nourished. No acute distress. HEENT: Head is atraumatic, normocephalic. Lungs: Respirations even and nonlabored. On RA Abdomen/GI: Soft. No guarding, rigidity, or abdominal tenderness. : No suprapubic tenderness. Munoz catheter in place draining clear yellow urine. Skin: Warm and dry Neurologic: Alert and oriented 3, CN II-XII grossly intact. No focal deficits. Psychiatric: Appropriate mood and affect - Labs CBC & Chem 7: 05/10/22 06:36 05/12/22 05:54 Labs: Microbiology - Last 24 Hours (Table) 05/09/22 12:30 Blood Culture - Preliminary Blood No Growth after 24 hours 05/09/22 12:15 Blood Culture - Preliminary Blood No Growth after 24 hours Assessment and Plan Assessment: The patient just returned from his HIDA scan. His son is at the bedside. He is eating lunch and states he is feeling better. He is afebrile, vitals signs are stable. His Munoz catheter is draining clear, yellow urine. Urinary tract not likely the source of his infection. (1) Chronic indwelling Munoz catheter Status: Acute Code(s): Z97.8 - PRESENCE OF OTHER SPECIFIED DEVICES SNOMED Code(s): 193738856 Plan: - Maintain Munoz catheter - Continue Flomax Thank you for this consultation. Please contact us if we could be of any further assistance. Impression and plan of care have been directed as dictated by the signing physician. Janeen Park nurse practitioner acting as scribe for signing physician. Janeen Park [facility] [id number] Email: [email or web address] The patient has been interviewed and evaluated by me I concur with the above note, Mila Patel
[2022-05-11] MEDS ORDERED: VANCOMYCIN TROUGH DUE 1 EACH MISC MISCELLANE ONE (12:00)
[2022-05-11] MEDS: ALBUTEROL HFA INHALER INHALATION PRN ×2 (13:19→19:39)
[2022-05-11] MEDS: VANCOMYCIN 1,250 MG in SODIUM CHLORIDE 0.9% 250 ML IVPB SCH (13:31)
--- NOTE | 2022-05-11 18:17 | P.PN ---
Subjective Progress Note Date: 05/11/22 Principal diagnosis: Sepsis Patient is awake alert and oriented 3 blood pressure stable vital stable patient is afebrile urology consultation appreciated little or no evidence of urosepsis, HIDA scan unremarkable. Labs highly suggestive of pancreatitis. Which could very well be the source of this patient's sepsis, symptoms resolving, we'll reevaluate amylase and lipase anticipate discharge home tomorrow Objective - Vital Signs Vital signs: Vital Signs Temp 96.1 F L 05/11/22 14:00 Pulse 71 05/11/22 14:00 Resp 20 05/11/22 14:00 BP 146/82 05/11/22 14:00 Pulse Ox 96 05/11/22 14:00 FiO2 Intake & Output 05/10/22 05/11/22 05/11/22 18:59 06:59 18:59 Intake Total 100 Output Total 350 1800 1425 Balance -250 1800 1425 Intake: Intake, IV Titration 100 Amount Cefepime 2 gm In Sodium 100 Chloride 0.9% 100 ml @ 25 mls/hr IVPB Q12H [facility] Rx# :[id number] Output: Urine 350 1800 1425 Other: Voiding Method Indwelling Catheter Indwelling Catheter # Bowel Movements 1 2 1 - Exam General: [Patient awake, alert and oriented times 3. Patient in no acute distress.] HEENT: [PERRL. EOMI. No pharyngeal erythema or exudate.] Neck: [No adenopathy.] Cardiac: [Heart regular in rate and rhythm. No S3. No S4. No clicks, rubs. No murmur.] Lungs: [Clear to auscultation bilaterally.] Abdomen: [No mass. No organomegaly. Bowel sounds presnt and normoactive in all 4 quadrants.] Extremes: [No edema no cyanosis no claudication normal pulses] : Normal male genitalia indwelling Munoz intact Musculoskeletal: [No joint erythema, edema or tenderness.] Skin: [No rash.] Neurologic: [No lateralizing deficits. CN II - XII grossly intact.] Lymphatic: [No adenopathy.] - Labs CBC & Chem 7: 05/10/22 06:36 05/11/22 05:29 Labs: Microbiology - Last 24 Hours (Table) 05/09/22 12:30 Blood Culture - Preliminary Blood No Growth after 48 hours 05/09/22 12:15 Blood Culture - Preliminary Blood No Growth after 48 hours Assessment and Plan (1) Elevated lipase Current Visit: Yes Status: Acute Code(s): R74.8 - ABNORMAL LEVELS OF OTHER SERUM ENZYMES SNOMED Code(s): 007255571 (2) High risk for readmission Current Visit: Yes Status: Acute Code(s): Z91.89 - OTH PERSONAL RISK FACTORS, NOT ELSEWHERE CLASSIFIED SNOMED Code(s): 358364173 (3) Hypotension Current Visit: Yes Status: Acute Code(s): I95.9 - HYPOTENSION, UNSPECIFIED SNOMED Code(s): 26656016 (4) Sepsis Current Visit: Yes Status: Acute Code(s): A41.9 - SEPSIS, UNSPECIFIED ORGANISM SNOMED Code(s): 63503715 (5) Acute exacerbation of chronic obstructive airways disease Current Visit: No Status: Acute Code(s): J44.1 - CHRONIC OBSTRUCTIVE PULMONARY DISEASE W (ACUTE) EXACERBATION SNOMED Code(s): 928926714 (6) Acute hypercapnic respiratory failure Current Visit: No Status: Acute Code(s): J96.02 - ACUTE RESPIRATORY FAILURE WITH HYPERCAPNIA SNOMED Code(s): 948817452 (7) Acute respiratory distress syndrome in adult Current Visit: No Status: Acute Code(s): J80 - ACUTE RESPIRATORY DISTRESS SYNDROME SNOMED Code(s): 28508901 (8) Acute urinary retention Current Visit: No Status: Acute Code(s): R33.8 - OTHER RETENTION OF URINE SNOMED Code(s): 589229849 (9) Atrial fibrillation Current Visit: No Status: Acute Code(s): I48.91 - UNSPECIFIED ATRIAL FIBRILLATION SNOMED Code(s): 39528475 (10) BPH (benign prostatic hyperplasia) Current Visit: No Status: Acute Code(s): N40.0 - BENIGN PROSTATIC HYPERPLASIA WITHOUT LOWER URINRY TRACT SYMP SNOMED Code(s): 189180380 (11) Body aches Current Visit: No Status: Acute Code(s): R52 - PAIN, UNSPECIFIED SNOMED Code(s): 18406356 (12) COPD exacerbation Current Visit: No Status: Acute Code(s): J44.1 - CHRONIC OBSTRUCTIVE PULMONARY DISEASE W (ACUTE) EXACERBATION SNOMED Code(s): 105811190 (13) COPD with acute exacerbation Current Visit: No Status: Acute Code(s): J44.1 - CHRONIC OBSTRUCTIVE PULMONARY DISEASE W (ACUTE) EXACERBATION SNOMED Code(s): 391377698 (14) Chronic low back pain Current Visit: No Status: Acute Code(s): M54.5 - LOW BACK PAIN * DO NOT USE *; G89.29 - OTHER CHRONIC PAIN SNOMED Code(s): 653250433 (15) Constipated Current Visit: No Status: Acute Code(s): K59.00 - CONSTIPATION, UNSPECIFIED SNOMED Code(s): 30313709 (16) Failure of outpatient treatment Current Visit: No Status: Acute Code(s): Z78.9 - OTHER SPECIFIED HEALTH STATUS SNOMED Code(s): 233431885 (17) Hypoxia Current Visit: No Status: Acute Code(s): R09.02 - HYPOXEMIA SNOMED Code(s): 511614741 (18) long-term (current) use of anticoagulants Current Visit: No Status: Acute Code(s): Z79.01 - SENIOR CARE (CURRENT) USE OF ANTICOAGULANTS SNOMED Code(s): 233699807 (19) Nicotine dependence Current Visit: No Status: Acute Code(s): F17.200 - NICOTINE DEPENDENCE, UNSPECIFIED, UNCOMPLICATED SNOMED Code(s): 10071632 (20) Pneumonia Current Visit: No Status: Acute Code(s): J18.9 - PNEUMONIA, UNSPECIFIED ORGANISM SNOMED Code(s): 230003993 Plan: Urosepsis unlikely Hypotension secondary to sepsis IV fluids Pulmonary infiltrate continue IV antibiotic Pancreatitis , consider HIDA scan Consult urology for evaluation chronic indwelling Munoz secondary to benign prostatic enlargement General surgery consult regarding pancreatitis[note patient is non-drinker] Time with Patient: Greater than 30
[2022-05-12] MEDS ORDERED: VANCOMYCIN 1,250 MG in SODIUM CHLORIDE 0.9% 250 ML IVPB SCH (01:00)
[2022-05-12 03:35] VITALS: RESP 18; TEMP 97.5
[2022-05-12] MEDS: CEFEPIME 2 GM in SODIUM CHLORIDE 0.9% 100 ML IVPB SCH (04:56)
[2022-05-12 07:26] VITALS: BP 111/67; PULSE 75
[2022-05-12] MEDS: NICOTINE 21MG/24HR PATCH TRANSDERM SCH (07:51)
[2022-05-12] MEDS: polyethylene glycoL 3350 17 GM POWD.PACK PO SCH (07:52)
[2022-05-12] MEDS: APIXABAN 5 MG TAB PO SCH (08:01)
[2022-05-12] MEDS: TAMSULOSIN 0.4 MG CAP.ER.24H PO SCH (08:01)
[2022-05-12] MEDS: GABAPENTIN 100 MG CAP PO SCH (08:01)
[2022-05-12] MEDS: METOPROLOL TARTRATE 50 MG TAB PO SCH (08:01)
[2022-05-12] MEDS: TIOTROPIUM 2.5 MCG INHALER INHALATION PRN (08:40)
[2022-05-12] MEDS: ALBUTEROL HFA INHALER INHALATION PRN (08:40)
[2022-05-12] MEDS: SYMBICORT 160-4.5 MCG INHALER INHALATION SCH (08:40)
[2022-05-12 10:41] LABS: African American GFR (CKD) 102.4 (60.0-200.0); Non-African American GFR(CKD) 88.4 (60.0-200.0)
--- NOTE | 2022-05-12 11:16 | P.DS ---
Providers Date of admission: 05/09/22 15:07 Expected date of discharge: 05/12/22 Attending physician: Fernando Lambert Consults: 05/10/22 13:04 Consult Physician Routine Consulting Provider: IAN CHILDS Urology Consult Reason/Comments: Urosepsis chronic indwelling Munoz Do you want consulting provider notified?: Yes Primary care physician: Fernando Lambert - Discharge Diagnosis(es) (1) Elevated lipase Current Visit: Yes Status: Acute (2) High risk for readmission Current Visit: Yes Status: Acute (3) Hypotension Current Visit: Yes Status: Acute (4) Sepsis Current Visit: Yes Status: Acute (5) Acute exacerbation of chronic obstructive airways disease Current Visit: No Status: Acute (6) Acute hypercapnic respiratory failure Current Visit: No Status: Acute (7) Acute respiratory distress syndrome in adult Current Visit: No Status: Acute (8) Acute urinary retention Current Visit: No Status: Acute (9) Atrial fibrillation Current Visit: No Status: Acute (10) BPH (benign prostatic hyperplasia) Current Visit: No Status: Acute (11) Body aches Current Visit: No Status: Acute (12) COPD exacerbation Current Visit: No Status: Acute (13) COPD with acute exacerbation Current Visit: No Status: Acute (14) Chronic low back pain Current Visit: No Status: Acute (15) Constipated Current Visit: No Status: Acute (16) Failure of outpatient treatment Current Visit: No Status: Acute (17) Hypoxia Current Visit: No Status: Acute (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 Patient in no acute distress.] HEENT: [PERRL. EOMI. No pharyngeal erythema or exudate.] Neck: [No adenopathy.] Cardiac: [Heart regular in rate and rhythm. No S3. No S4. No clicks, rubs. No murmur.] Lungs: [Clear to auscultation bilaterally.] Abdomen: [No mass. No organomegaly. Bowel sounds presnt and normoactive in all 4 quadrants.] Extremes: [No edema no cyanosis no claudication normal pulses] : Normal male genitalia indwelling Munoz catheter Musculoskeletal: [No joint erythema, edema or tenderness.] Skin: [No rash.] Neurologic: [No lateralizing deficits. CN II - XII grossly intact.] Lymphatic: [No adenopathy.] Patient Condition at Discharge: Stable Plan - Discharge Summary Discharge Rx Participant: Yes New Discharge Prescriptions: No Action Tamsulosin HCl [Flomax] 0.4 mg PO BID@0400,1600 Apixaban [Eliquis] 5 mg PO BID@0400,1600 Metoprolol Tartrate [Lopressor] 50 mg PO BID@0400,1600 Budesonide/Formoterol Fumarate [Symbicort 160-4.5 Mcg Inhaler] 2 puff INHALATION RT-BID Fluticasone Propion/Salmeterol [Advair 250-50 Diskus] 1 puff INHALATION RT- BID Albuterol Nebulized [Ventolin Nebulized] 2.5 mg INHALATION RT-Q4H PRN PRN Reason: Shortness Of Breath Ipratropium Nebulized [Atrovent Nebulized 0.2 MG/ML] 0.5 mg INHALATION RT-Q4H PRN PRN Reason: Shortness Of Breath polyethylene glycoL 3350 [Miralax] 17 gm PO DAILY packet Docusate [Colace] 100 mg PO DAILY #14 capsule Ibuprofen [Motrin] 600 mg PO Q6HR PRN #12 tab PRN Reason: Pain Gabapentin [Neurontin] 200 mg PO BID@0400,1600 Albuterol Inhaler [Ventolin Hfa Inhaler] 1 puff INHALATION RT-Q4H PRN PRN Reason: Shortness Of Breath Acetaminophen-Codeine 300-30mg [Tylenol w/codeine #3] 1 tab PO Q6H PRN PRN Reason: Pain Alendronate Sodium [Fosamax] 70 mg PO GROVES HYDROcodone/APAP 5-325MG [[place] 5-325] 1 tab PO Q8H PRN PRN Reason: Pain Discharge Medication List Tamsulosin HCl [Flomax] 0.4 mg PO BID@0400,1600 03/24/18 [History] Apixaban [Eliquis] 5 mg PO BID@0400,1600 09/14/18 [History] Metoprolol Tartrate [Lopressor] 50 mg PO BID@0400,1600 02/04/19 [History] Budesonide/Formoterol Fumarate [Symbicort 160-4.5 Mcg Inhaler] 2 puff INHALATION RT-BID 05/21/20 [History] Fluticasone Propion/Salmeterol [Advair 250-50 Diskus] 1 puff INHALATION RT-BID 04/07/21 [History] Gabapentin [Neurontin] 200 mg PO BID@0400,1600 04/07/21 [History] Albuterol Nebulized [Ventolin Nebulized] 2.5 mg INHALATION RT-Q4H PRN 09/20/21 [History] Albuterol Inhaler [Ventolin Hfa Inhaler] 1 puff INHALATION RT-Q4H PRN 11/17/21 [History] Ipratropium Nebulized [Atrovent Nebulized 0.2 MG/ML] 0.5 mg INHALATION RT-Q4H PRN 11/17/21 [History] polyethylene glycoL 3350 [Miralax] 17 gm PO DAILY packet 04/09/22 [Rx] Acetaminophen-Codeine 300-30mg [Tylenol w/codeine #3] 1 tab PO Q6H PRN 04/16/22 [History] Docusate [Colace] 100 mg PO DAILY #14 capsule 04/29/22 [Rx] Alendronate Sodium [Fosamax] 70 mg PO GROVES 05/02/22 [History] Ibuprofen [Motrin] 600 mg PO Q6HR PRN #12 tab 05/02/22 [Rx] HYDROcodone/APAP 5-325MG [[place] 5-325] 1 tab PO Q8H PRN 05/09/22 [History] Follow up Appointment(s)/Referral(s): Fernando Lambert Jr, [Primary Care Provider] - 1-2 days
[2022-05-13] MEDS ORDERED: PATIENT'S OWN (Alendronate Sodium [Fosamax] 70 MG Tablet) PO SCH (07:00)
--- NOTE | 2022-05-14 09:15 | CDI ---
Documentation Clarification Form Date: 05/10/2022 3:23:00 PM From: Gloria Romero Phone: [phone] Admit Date: 05/09/2022 3:07:00 PM Patient Name: Shawn Hinkle Visit Number: [id number] Discharge Date: 05/12/2022 12:56:00 PM ATTENTION: The Clinical Documentation Specialists (CDI) and [facility] Coding Staff appreciate your assistance in clarifying documentation. Please respond to the clarification below the line at the bottom and electronically sign. The CDI & [facility] Coding staff will review the response and follow-up if needed. Please note: Queries are made part of the Legal Health Record. If you have any questions, please contact the author of this message via ITS. Dr. Fernando Lambert Acute Respiratory Distress Syndrome is documented 05/10, in the H&P which may lack sufficient clinical evidence/support in the medical record. Additional clarification is requested. History/Risk Factors: 77 year old male presents to the ED from Dr Brown office for hypotension related to Sepsis and generalized weakness. Medical History: Indwelling Munoz catheter for approximately one week. Atrial Fibrillation, COPD, Pneumonia and GERD. 05/10, ED note. Clinical Indicators: 05/09 VSS: B/P 87/55; HR 75; Temp 97.4 F Oral; RR 20; SpO2 96% room air. SpO2: 05/09 17:53 97% room air , RR 18 SpO2: 05/10 07:01 94% room air, RR 17 05/09 ED Note: Clear breath sounds bilaterally. 05/10 H&P: Respiratory: Reports congestion, cough and wheezing. Lungs: Clear to auscultation bilaterally. 05/09 CXR: Scattered interstitial changes more prominent in the left lung which could represent an inflammatory or infectious process. These findings may also be chronic as they do appear very similar to previous exam. Treatment: Ventolin inhaler prn; Symbicort inhaler bid berna; Spiriva Respimat prn daily Please clarify if Acute Respiratory Distress Syndrome is a valid diagnosis? [ x ] No, Acute Respiratory Distress Syndrome is ruled out [ ] Yes, Acute Respiratory Distress Syndrome is present as evidence by (additional clinical support): [ ] Other (please specify diagnosis) [ ] Unable to determine (Template Last Revised: May 2020) MTDD
== END 2022-05-12 12:56 | disposition home or self-care (01) | DRG 871 ==
LOC: EC 10:49 → 5NMEDONC 15:07 → 4SSUR 16:13
PROVIDERS: ADMIT Family Medicine; ATTEND Family Medicine
DX: A41.9 Sepsis, unspecified organism (principal); J18.9 Pneumonia, unspecified organism; K85.90 Acute pancreatitis without necrosis or infection, unspecified; J44.1 Chronic obstructive pulmonary disease with (acute) exacerbation; J44.0 Chronic obstructive pulmonary disease with (acute) lower respiratory infection; I48.92 Unspecified atrial flutter; I95.9 Hypotension, unspecified; I48.0 Paroxysmal atrial fibrillation; Z28.310 Unvaccinated for COVID-19; N40.1 Benign prostatic hyperplasia with lower urinary tract symptoms; R33.8 Other retention of urine; R39.11 Hesitancy of micturition; G89.29 Other chronic pain; M48.061 Spinal stenosis, lumbar region without neurogenic claudication; M51.16 Intervertebral disc disorders with radiculopathy, lumbar region; I10 Essential (primary) hypertension; I71.40 Abdominal aortic aneurysm, without rupture, unspecified; K21.9 Gastro-esophageal reflux disease without esophagitis; K59.00 Constipation, unspecified; F17.210 Nicotine dependence, cigarettes, uncomplicated; Z71.6 Tobacco abuse counseling; Z79.83 Long term (current) use of bisphosphonates; Z79.01 Long term (current) use of anticoagulants; Z79.51 Long term (current) use of inhaled steroids; Z79.899 Other long term (current) drug therapy; Z86.16 Personal history of COVID-19; Z91.040 Latex allergy status; Z91.041 Radiographic dye allergy status
CPT/HCPCS: 36415; 51702; 71046; 74177; 78227; 80048; 80053; 80202; 81001; 82150; 82565; 83605; 83690; 84484; 85025; 85610; 85730; 87040; 93005; 94640; 96361; 96365; 96366; 96367; 96375; 99291

== ENCOUNTER 2022-06-04 17:22 | Emergency (ER) | payer MEDICARE ==
--- NOTE | 2022-06-04 18:01 | ED ---
Recheck HPI - General Source: patient, family Mode of arrival: wheelchair Limitations: no limitations <Cinthia Abreu - Last Filed: 06/04/22 18:00> - General Source: RN notes reviewed, old records reviewed - History of Present Illness Complaint: other (bladder pressure) -: month(s) (2) Associated Symptoms: none Treatments Prior to Arrival: urinary catheter in place <Carson Romero - Last Filed: 06/05/22 03:32> - General Chief Complaint: Recheck/Abnormal Lab/Rx Stated Complaint: Uro gential Time Seen by Provider: 06/05/22 01:09 - History of Present Illness Initial Comments: Patient is a 77-year-old male presents to the emergency room with complaints of dysfunctioning Munoz catheter. He reports that the catheter was exchanged by his visiting nurse earlier today and since that time he has had increased pelvic pressure and no urine output out of his Munoz catheter. He reports prior to the removal he is able to lay down and gait urine production while sleeping but none since her replacement earlier today. He denies any other complaints or concerns including any abdominal pain not related to pelvic pressure, nausea, vomiting, fevers or chills. (Cinthia Abreu) This is a nontoxic-appearing 77-year-old male alert and oriented 4 presents with family complaining of increased pelvic pressure. Had his Munoz catheter changed at [facility] today. States is draining and has emptied it multiple times but continues to have bladder pressure feeling like he has to go all the time. Denies any fever, nausea vomiting or diarrhea. (Carson Romero) - Related Data Home Medications Medication Instructions Recorded Confirmed Tamsulosin HCl [Flomax] 0.4 mg PO BID@0400,1600 03/24/18 05/13/22 Apixaban [Eliquis] 5 mg PO BID@0400,1600 09/14/18 05/13/22 Metoprolol Tartrate [Lopressor] 50 mg PO DAILY 02/04/19 05/13/22 Budesonide/Formoterol Fumarate 2 puff INHALATION RT-BID 05/21/20 05/13/22 [Symbicort 160-4.5 Mcg Inhaler] Fluticasone Propion/Salmeterol 1 puff INHALATION RT-BID 04/07/21 05/13/22 [Advair 250-50 Diskus] Gabapentin [Neurontin] 200 mg PO BID@0400,1600 04/07/21 05/13/22 Albuterol Nebulized [Ventolin 2.5 mg INHALATION RT-Q4H PRN 09/20/21 05/13/22 Nebulized] Albuterol Inhaler [Ventolin Hfa 1 puff INHALATION RT-Q4H PRN 11/17/21 05/13/22 Inhaler] Ipratropium Nebulized [Atrovent 0.5 mg INHALATION RT-Q4H PRN 11/17/21 05/13/22 Nebulized 0.2 MG/ML] Alendronate Sodium [Fosamax] 70 mg PO GROVES 05/02/22 05/13/22 HYDROcodone/APAP 5-325MG [Paden 1 tab PO Q8H PRN 05/09/22 05/13/22 5-325] Previous Rx's Medication Instructions Recorded polyethylene glycoL 3350 [Miralax] 17 gm PO DAILY packet 04/09/22 Docusate [Colace] 100 mg PO DAILY #14 capsule 04/29/22 Levofloxacin [Levaquin] 500 mg PO DAILY 1 Days #1 tab 05/12/22 Pantoprazole [Protonix] 40 mg PO DAILY #30 tab 05/15/22 Ciprofloxacin HCl [Cipro] 500 mg PO BID 10 Days #20 tab 06/05/22 Allergies Allergy/AdvReac Type Severity Reaction Status Date / Time Iodinated Contrast Media Allergy Rash/Hives Verified 06/04/22 17:57 [Iodinated Contrast- Oral and IV Dye] latex Allergy Rash/Hives Verified 06/04/22 17:57 Review of Systems ROS Other: All systems not noted in ROS Statement are negative. <Cinthia Abreu - Last Filed: 06/04/22 18:00> ROS Other: All systems not noted in ROS Statement are negative. <Carson Romero - Last Filed: 06/05/22 03:32> ROS Statement: Those systems with pertinent positive or pertinent negative responses have been documented in the HPI. Past Medical History Past Medical History: Atrial Fibrillation, Atrial Flutter, COPD, GERD/Reflux, Pneumonia, Prostate Disorder Additional Past Medical History / Comment(s): Paroxysmal Afib, bronchitis, BPH, constipation, vertigo, chronic low back pain/DDD. covid 4/21 History of Any Multi-Drug Resistant Organisms: None Reported Past Surgical History: Back Surgery Additional Past Surgical History / Comment(s): Bilateral cataract removals-lens implants, colonoscopy, multiple kyphoplasties. Past Anesthesia/Blood Transfusion Reactions: No Reported Reaction Additional Past Anesthesia/Blood Transfusion Reaction / Comment(s): Has never received any blood transfusions. Past Psychological History: No Psychological Hx Reported Smoking Status: Current every day smoker Past Alcohol Use History: None Reported Past Drug Use History: None Reported - Past Family History Mother Family Medical History: AFIB, Dementia Father Family Medical History: Myocardial Infarction ([place]) Additional Family Medical History / Comment(s): [place] 70's [place] <Cinthia Abreu - Last Filed: 06/04/22 18:00> General Exam Limitations: no limitations <Cinthia Abreu - Last Filed: 06/04/22 18:00> General appearance: alert, in no apparent distress Head exam: Present: atraumatic Eye exam: Present: normal appearance. Absent: scleral icterus, conjunctival injection, periorbital swelling Neck exam: Absent: meningismus Respiratory exam: Absent: respiratory distress, accessory muscle use Cardiovascular Exam: Present: regular rate exam: Present: normal inspection, vertical testicular lie, other (Munoz catheter draining fausto urine; bladder scan showing less than 50 ML's). Absent: testicular tenderness, urethral discharge, scrotal swelling Extremities exam: Present: normal capillary refill. Absent: pedal edema Neurological exam: Present: alert, oriented X3 Psychiatric exam: Present: normal affect, normal mood Skin exam: Present: warm, dry, normal color. Absent: cyanosis, diaphoretic, petechiae, pallor <Carson Romero - Last Filed: 06/05/22 03:32> - General Exam Comments Initial Comments: Visual Physical Exam Vital signs reviewed General: Well-appearing, nontoxic, no acute distress. Head: Normocephalic, atraumatic Eyes: PERRLA, EOMI ENT: Airway patent Chest: Nonlabored breathing Skin: No visual rash, normal skin tone Neuro: Alert and oriented 3 Musculoskeletal: No gross abnormalities noted, patient in wheelchair. (Cinthia Abreu) Course Vital Signs 04/03/23 04/04/23 04/04/23 17:54 01:20 02:55 Temperature 98.0 F 97.8 F Pulse Rate 97 82 77 Respiratory 24 18 18 Rate Blood Pressure 128/73 139/75 110/70 O2 Sat by Pulse 96 95 94 L Oximetry Medical Decision Making <Carson Romero - Last Filed: 06/05/22 03:32> - Medical Decision Making Patient presents with bladder irritation. States was at [facility] emergency room today and they have changed the Munoz catheter. Munoz catheter is in place and draining fausto urine. There is no evidence of erythema or drainage at the urethral meatus. Bladder scan was performed showing less than 50 mL of urine. Abdomen is soft and minimally tender over the bladder. Patient denies any fevers. No nausea vomiting or diarrhea. Urinalysis was sent showing evidence of UTI. Patient states he finished an unknown antibiotic last week. He is seeing Dr. Patel a urologist out of [place]. Case discussed with Dr. Peralta who recommended Cipro 500 twice a day which was prescribed. Patient was encouraged to call his urologist tomorrow morning for reevaluation. Directed to return to the emergency room with any fevers, increased pain or drainage from catheter. Patient family member agreeable to this plan of care. Was pt. sent in by a medical professional or institution (, PA, MANAGER SKILLED, urgent care, hospital, or senior living...) When possible be specific @ -No Did you speak to anyone other than the patient for history (EMS, parent, family, police, friend...)? What history was obtained from this source @ -family at bedside Did you review nursing and triage notes (agree or disagree)? Why? @ -I reviewed and agree with nursing and triage notes Were old charts reviewed (outside hosp., previous admission, EMS record, old EKG, old radiological studies, urgent care reports/EKG's, senior living records)? Report findings @ -No old charts were reviewed Differential Diagnosis (chest pain, altered mental status, abdominal pain women, abdominal pain men, vaginal bleeding, weakness, fever, dyspnea, syncope, headache, dizziness, GI bleed, back pain, seizure, CVA, palpatations, mental health, musculoskeletal)? @ -UTI, urinary retention malfunctioning urinary catheter EKG interpreted by me (3pts min.). @ -n/a X-rays interpreted by me (1pt min.). @ -None done CT interpreted by me (1pt min.). @ -None done U/S interpreted by me (1pt. min.). @ -None done What testing was considered but not performed or refused? (CT, X-rays, U/S, labs)? Why? @ -None What meds were considered but not given or refused? Why? @ -None Did you discuss the management of the patient with other professionals (professionals i.e. DrGregoria, PA, MANAGER SKILLED, lab, RT, psych nurse, social work assistant, dam tender assistant, teacher, chief environmental commitment officer, behavioral health case manager)? Give summary @ -No Was smoking cessation discussed for >3mins.? @ -No Was critical care preformed (if so, how long)? @ -No Were there social determinants of health that impacted care today? How? (Homelessness, low income, unemployed, alcoholism, drug addiction, transportation, low edu. Level, literacy, decrease access to med. care, long term, rehab)? @ -No Was there de-escalation of care discussed even if they declined (Discuss DNR or withdrawal of care, Hospice)? DNR status @ -No What co-morbidities impacted this encounter? (DM, HTN, Smoking, COPD, CAD, Cancer, CVA, ARF, Chemo, Hep., AIDS, mental health diagnosis, sleep apnea, morbid obesity)? @ -HPI patient, COPD, GERD, BPH Was patient admitted / discharged? Hospital course, mention meds given and route, prescriptions, significant lab abnormalities, going to OR and other pertinent info. @ -Discharged Undiagnosed new problem with uncertain prognosis? @ -No Drug Therapy requiring intensive monitoring for toxicity (Heparin, Nitro, Insulin, Cardizem)? @ -No Were any procedures done? @ -No Diagnosis/symptom? @ -UTI Acute, or Chronic, or Acute on Chronic? @ -Acute Uncomplicated (without systemic symptoms) or Complicated (systemic symptoms)? @ -Uncomplicated Side effects of treatment? @ -No Exacerbation, Progression, or Severe Exacerbation? @ -No Poses a threat to life or bodily function? How? (Chest pain, [place], [place], pneumonia, PE, COPD, DKA, ARF, appy, cholecystitis, CVA, Diverticulitis, Homicidal, Suicidal, threat to staff... and all critical care pts) @ -No (Carson Romero) - Lab Data Lab Results 06/05/22 Range/Units 01:38 Urine Color Brown Urine Appearance Cloudy (Clear) Urine pH 6.0 (5.0-8.0) Ur Specific [place] 1.028 (1.001-1.035) Urine Protein Trace H (Negative) Urine Glucose (UA) Trace H (Negative) Urine Ketones Negative (Negative) Urine Blood Small H (Negative) Urine Nitrite Positive (Negative) Urine Bilirubin 1+ H (Negative) Urine Urobilinogen 3.0 (<2.0) mg/dL Ur Leukocyte Esterase Large H (Negative) Urine RBC 12 H (0-5) /hpf Urine WBC 127 H (0-5) /hpf Urine WBC Clumps Occasional H (None) /hpf Urine Bacteria Rare H (None) /hpf Hyaline Casts 4 H (0-2) /lpf Urine Mucus Few H (None) /hpf Urine Yeast (Budding) Rare H (None) /hpf Disposition <Cinthia Abreu - Last Filed: 06/04/22 18:00> Is patient prescribed a controlled substance at d/c from ED?: No Time of Disposition: 02:47 <Carson Romero - Last Filed: 06/05/22 03:32> Clinical Impression: Chronic indwelling Munoz catheter, UTI (urinary tract infection) Disposition: HOME SELF-CARE Condition: Good Instructions (If sedation given, give patient instructions): Urinary Tract In fection in Men (ED) Additional Instructions: Take antibiotics as prescribed for urinary tract infection. Please follow-up with your urologist Dr Patel this week for continuation of care. Let him know that we did do a bladder scan and there is no evidence of urinary retention and Munoz catheter is draining. Return to the emergency room if there is no drainage in the catheter bag or you develop a fever. Prescriptions: Ciprofloxacin HCl [Cipro] 500 mg PO BID 10 Days #20 tab Referrals: Fernando Lambert Jr, [Primary Care Provider] - 1-2 days
[2022-06-05 01:23] VITALS: RESP 18; TEMP 97.8
[2022-06-05 02:27] LABS: Appearance,Urine Cloudy (Clear); Bacteria,Urine Rare /hpf; Bilirubin,Urine 1+ (Negative); Blood,Urine Small (Negative); Budding Yeast,Urine Rare /hpf; Color,Urine Brown; Glucose,Urine (UA) Trace (Negative); Hyaline Casts,Urine 4 /lpf (0-2); Ketones,Urine Negative (Negative); Leukocyte Esterase,Urine Large (Negative); Mucus,Urine Few /hpf; Nitrite,Urine Positive (Negative); Protein,Urine Trace (Negative); RBC,Urine 12 /hpf (0-5); Specific Gravity,Urine 1.028 (1.001-1.035); WBC,Urine 127 /hpf (0-5)
[2022-06-05] MEDS ORDERED: CIPROFLOXACIN HCL 250 MG TAB PO STA (02:43)
[2022-06-05] MEDS ORDERED: CIPROFLOXACIN HCL 500 MG TAB PO STA (02:47)
[2022-06-05 02:56] VITALS: BP 110/70; PULSE 77
== END 2022-06-05 03:10 | disposition home or self-care (01) ==
LOC: EC 17:22
DX: T83.511A Infection and inflammatory reaction due to indwelling urethral catheter, initial encounter (principal); N39.0 Urinary tract infection, site not specified; I48.91 Unspecified atrial fibrillation; J44.9 Chronic obstructive pulmonary disease, unspecified; K21.9 Gastro-esophageal reflux disease without esophagitis; F17.200 Nicotine dependence, unspecified, uncomplicated; Z91.041 Radiographic dye allergy status; Z91.040 Latex allergy status; Z79.01 Long term (current) use of anticoagulants; Z79.51 Long term (current) use of inhaled steroids; Z79.899 Other long term (current) drug therapy
CPT/HCPCS: 51702; 81001; 99283

== ENCOUNTER 2023-10-20 19:05 | Emergency (ER) | payer MEDICARE, OTHER ==
[2023-10-20] MEDS ORDERED: methylPREDNISolone SOD SUCCI 125 MG/2 ML VIAL ONE (20:15)
[2023-10-20] MEDS ORDERED: IPRATROPIUM-ALBUTEROL 3 ML NEB ONE (20:28)
[2023-10-21] MEDS ORDERED: HYDROcodone/APAP 7.5-325MG 1 EACH TAB ONE (00:10)
--- NOTE | 2023-11-22 10:30 | XR ---
Patient Shawn Hinkle ID [id number] Order # EXAMINATION TYPE: XR chest 2V DATE OF EXAM: 10/20/2023 COMPARISON: No comparison available on downtime PACS. INDICATION: Lightheaded TECHNIQUE: Frontal and lateral views of the chest are obtained. FINDINGS: The heart size is slightly prominent. The pulmonary vasculature is prominent. Increased Central lung markings are present. Correlate for pulmonary edema.. IMPRESSION: 1. Dominant pulmonary vascular markings and central lung markings, correlate for pulmonary edema. Fol low-up can be performed.
== END 2023-10-21 09:45 | disposition home or self-care (01) ==
LOC: EC 19:05
DX: J44.1 Chronic obstructive pulmonary disease with (acute) exacerbation (principal)
CPT/HCPCS: 71046; 93005; 94640; 96374; 99285

== ENCOUNTER 2024-02-08 22:42 | Observation (INO) | payer MEDICARE, OTHER ==
--- NOTE | 2024-02-08 23:06 | ED ---
General Adult HPI - General Chief complaint: Chest Pain Stated complaint: NSTEMI Time Seen by Provider: 02/08/24 22:52 Source: patient Mode of arrival: EMS - History of Present Illness Initial comments: Patient is a 78-year-old man with history of chronic low back pain, COPD, who is transferred here from [facility]. The patient had gone there this afternoon to have evaluation for a flareup of his chronic lumbar back pain, been acting up 1 to 2 days now. The patient states that it was difficult getting up and walking with the pain so he went to have pain relief see if he could be placed in group home as he was not getting around well. While the patient was there he was found to have elevated troponins at 0.07, repeat was 0.074. Denies chest pain. Patient denies new shortness of breath, stating that he is always a little short of breath due to COPD. At the other facility included CBC with a white blood cell count 13.68, chemistries which showed a blood glucose of 159. Urinalysis showed 10-20 white cells per field. The patient does have chronic indwelling Munoz catheter. Patient was started on heparin and transferred here to have cardiology evaluation. The patient here is still asymptomatic. Onset/Timin -: days(s) Location: back Radiation: non-radiation Quality: aching Consistency: constant Improves with: none Worsens with: movement Associated Symptoms: denies other symptoms Treatments Prior to Arrival: none - Related Data Home Medications Medication Instructions Recorded Confirmed Tamsulosin HCl [Flomax] 0.4 mg PO BID@0400,1600 03/24/18 05/13/22 Apixaban [Eliquis] 5 mg PO BID@0400,1600 09/14/18 05/13/22 Metoprolol Tartrate [Lopressor] 50 mg PO DAILY 02/04/19 05/13/22 Budesonide/Formoterol Fumarate 2 puff INHALATION RT-BID 05/21/20 05/13/22 [Symbicort 160-4.5 Mcg Inhaler] Fluticasone Propion/Salmeterol 1 puff INHALATION RT-BID 04/07/21 05/13/22 [Advair 250-50 Diskus] Gabapentin [Neurontin] 200 mg PO BID@0400,1600 04/07/21 05/13/22 Albuterol Nebulized [Ventolin 2.5 mg INHALATION RT-Q4H PRN 09/20/21 05/13/22 Nebulized] Albuterol Inhaler [Ventolin Hfa 1 puff INHALATION RT-Q4H PRN 11/17/21 05/13/22 Inhaler] Ipratropium Nebulized [Atrovent 0.5 mg INHALATION RT-Q4H PRN 11/17/21 05/13/22 Nebulized 0.2 MG/ML] Alendronate Sodium [Fosamax] 70 mg PO GROVES 05/02/22 05/13/22 HYDROcodone/APAP 5-325MG [Sidney 1 tab PO Q8H PRN 05/09/22 05/13/22 5-325] Previous Rx's Medication Instructions Recorded polyethylene glycoL 3350 [Miralax] 17 gm PO DAILY packet 04/09/22 Docusate [Colace] 100 mg PO DAILY #14 capsule 04/29/22 Levofloxacin [Levaquin] 500 mg PO DAILY 1 Days #1 tab 05/12/22 Pantoprazole [Protonix] 40 mg PO DAILY #30 tab 05/15/22 Ciprofloxacin HCl [Cipro] 500 mg PO BID 10 Days #20 tab 06/05/22 Allergies Allergy/AdvReac Type Severity Reaction Status Date / Time Iodinated Contrast Media Allergy Rash/Hives Verified 02/08/24 22:50 [Iodinated Contrast- Oral and IV Dye] latex Allergy Rash/Hives Verified 02/08/24 22:50 Review of Systems ROS Statement: Those systems with pertinent positive or pertinent negative responses have been documented in the HPI. ROS Other: All systems not noted in ROS Statement are negative. Constitutional: Reports: weakness. Denies: fever, chills Respiratory: Reports: as per HPI, cough, dyspnea Cardiovascular: Denies: chest pain, palpitations, orthopnea, edema, syncope Gastrointestinal: Denies: abdominal pain, nausea, vomiting, diarrhea Genitourinary: Reports: other (Munoz catheter). Denies: dysuria, hematuria Musculoskeletal: Reports: as per HPI, back pain (Chronic) Skin: Denies: rash Neurological: Denies: headache, weakness, numbness Past Medical History Past Medical History: Atrial Fibrillation, Atrial Flutter, COPD, GERD/Reflux, Pneumonia, Prostate Disorder Additional Past Medical History / Comment(s): Paroxysmal Afib, bronchitis, BPH, constipation, vertigo, chronic low back pain/DDD. covid 06/22 History of Any Multi-Drug Resistant Organisms: None Reported Past Surgical History: Back Surgery Additional Past Surgical History / Comment(s): Bilateral cataract removals-lens implants, colonoscopy, multiple kyphoplasties. Past Anesthesia/Blood Transfusion Reactions: No Reported Reaction Additional Past Anesthesia/Blood Transfusion Reaction / Comment(s): Has never received any blood transfusions. Past Psychological History: No Psychological Hx Reported Smoking Status: Current every day smoker Past Alcohol Use History: None Reported Past Drug Use History: None Reported - Past Family History Mother Family Medical History: AFIB, Dementia Father Family Medical History: Myocardial Infarction ([place]) Additional Family Medical History / Comment(s): in his 70's [place] General Exam General appearance: alert, in no apparent distress Head exam: Present: atraumatic, normocephalic Eye exam: Present: normal appearance. Absent: scleral icterus, conjunctival injection ENT exam: Present: normal oropharynx Neck exam: Present: normal inspection, full ROM Respiratory exam: Present: wheezes. Absent: respiratory distress, rales, rhonchi, stridor, accessory muscle use Cardiovascular Exam: Present: regular rate, normal rhythm, normal heart sounds. Absent: systolic murmur, diastolic murmur, rubs, gallop GI/Abdominal exam: Present: soft. Absent: distended, tenderness, guarding, rebound, rigid, mass Extremities exam: Present: normal inspection, normal capillary refill. Absent: pedal edema, calf tenderness Back exam: Present: normal inspection Neurological exam: Present: alert. Absent: motor sensory deficit Skin exam: Present: warm, dry, intact, normal color. Absent: rash Course Vital Signs 02/08/24 22:44 Temperature 97.4 F L Pulse Rate 69 Respiratory 18 Rate Blood Pressure 131/71 O2 Sat by Pulse 94 L Oximetry EKG Findings - EKG Results: EKG: interpreted by DEVANTE, sinus rhythm (Rate 63 bpm), normal axis, normal QRS, normal ST/T Disposition Referrals: Fernando Lambert Jr, DO [Primary Care Provider] - 1-2 days
[2024-02-08 23:18] LABS: Basophils % (A) 0 %; Eosinophils % (A) 0 %; HCT 36.4 % (39.0-53.0); HGB 12.3 gm/dL (13.0-17.5); Lymphocytes # (A) 0.8 k/uL (1.0-4.8); Lymphocytes % (A) 7 %; MCH 33.6 pg (25.0-35.0); MCHC 33.8 g/dL (31.0-37.0); MCV 99.3 fL (80.0-100.0); Mean Platelet Volume 7.8; Monocytes # (A) 0.6 k/uL (0-1.0); Monocytes % (A) 5 %; Neutrophils # (A) 9.8 k/uL (1.3-7.7); Neutrophils % (A) 87 %; Platelet Count 193 k/uL (150-450); RBC 3.67 m/uL (4.30-5.90); RDW 13.5 % (11.5-15.5); WBC 11.3 k/uL (3.8-10.6)
[2024-02-08] MEDS: HEPARIN SOD,PORK IN 0.45% NACL 25,000 UNIT in 0.45% NACL 1 250ML.BAG IV SCH (23:26)
[2024-02-08 23:30] LABS: ALT 13 U/L (4-49); AST 13 U/L (17-59); African American GFR (CKD) >90 (>60 ml/min/1.73 sqM); Alkaline Phosphatase 59 U/L (38-126); Anion Gap 1 mmol/L; Blood Urea Nitrogen 30 mg/dL (9-20); Calcium 8.5 mg/dL (8.4-10.2); Carbon Dioxide 26 mmol/L (22-30); Chloride 110 mmol/L (98-107); Glucose 85 mg/dL (74-99); Magnesium 2.1 mg/dL (1.6-2.3); Non-African American GFR(CKD) >90 (>60 ml/min/1.73 sqM); Sodium 137 mmol/L (137-145); Total Bilirubin 0.6 mg/dL (0.2-1.3); Total Protein 5.6 g/dL (6.3-8.2)
[2024-02-08 23:38] LABS: NT-Pro-B-Type Natriuretic Pept 659 pg/mL
[2024-02-09] MEDS ORDERED: NITROGLYCERIN SL TABS 0.4 MG TAB SUBLINGUAL PRN (02:00)
[2024-02-09] MEDS ORDERED: ALBUTEROL NEBULIZED 2.5 MG/3 ML INHALATION PRN (02:02)
[2024-02-09] MEDS ORDERED: IPRATROPIUM 0.5 MG/2.5 ML NEBU INHALATION PRN (02:02)
[2024-02-09] MEDS: TAMSULOSIN 0.4 MG CAP.ER.24H PO SCH (03:56)
[2024-02-09] MEDS: GABAPENTIN 100 MG CAP PO SCH (03:56)
[2024-02-09] MEDS ORDERED: APIXABAN 5 MG TAB PO SCH (04:00)
[2024-02-09 06:02] LABS: Basophils % (A) 0 %; Eosinophils % (A) 0 %; HCT 36.1 % (39.0-53.0); Lymphocytes # (A) 1.1 k/uL (1.0-4.8); Lymphocytes % (A) 12 %; MCH 33.4 pg (25.0-35.0); MCHC 33.4 g/dL (31.0-37.0); Mean Platelet Volume 8.1; Monocytes # (A) 0.5 k/uL (0-1.0); Monocytes % (A) 6 %; Neutrophils # (A) 7.7 k/uL (1.3-7.7); Neutrophils % (A) 81 %; Platelet Count 197 k/uL (150-450); RBC 3.61 m/uL (4.30-5.90); RDW 13.4 % (11.5-15.5); WBC 9.4 k/uL (3.8-10.6)
[2024-02-09 07:05] LABS: INR 1.1 (<1.2); Prothrombin Time 11.6 sec (10.0-12.5)
[2024-02-09] MEDS: IPRATROPIUM-ALBUTEROL 3 ML NEB INHALATION PRN (07:51)
[2024-02-09] MEDS: SYMBICORT 160-4.5 MCG INHALER INHALATION SCH (07:52)
[2024-02-09] MEDS ORDERED: NON FORMULARY DRUG (Fluticasone Propion/Salmeterol [Advair 250-50 Diskus] 1 EACH Each) INHALATION SCH (08:00)
[2024-02-09] MEDS: DOCUSATE 100 MG CAP PO SCH (08:26)
[2024-02-09] MEDS: METOPROLOL TARTRATE 50 MG TAB PO SCH (08:27)
[2024-02-09] MEDS: PANTOPRAZOLE 40 MG TABLET PO SCH (08:27)
[2024-02-09] MEDS: polyethylene glycoL 3350 17 GM POWD.PACK PO SCH (08:27)
[2024-02-09] MEDS ORDERED: METOPROLOL TARTRATE 50 MG TAB PO SCH (09:00)
--- NOTE | 2024-02-09 09:34 | P.CRDCN ---
History of Present Illness History of present illness: HISTORY OF PRESENT ILLNESS: This is a 78-year-old male with a past medical history significant for atrial fibrillation, chronic back pain with previous back surgery, chronic indwelling catheter, and nicotine dependence. Patient does not follow with a plant technical specialist. We have been asked to see the patient in consultation for elevated troponins. Patient examined at the bedside in the emergency room. Patient initially presented to [facility] due to back pain. Patient states he has been having lower back pain for the past couple days. He reports chronic back pain but states the pain was worse than normal. He reports difficulty with ambulation. For an unknown reason, the ER physician at [place] ordered troponins which resulted at 0.07. The patient was transferred to [facility] for further evaluation. The patient denies having any chest pain or pressure. He denies any shortness of breath. Denies dizziness or lightheadedness. Denies any palpitations. He continues to report lower back pain at the time of examination. DIAGNOSTICS: - EKG reveals sinus mechanism with no signs of acute ischemia - Laboratory data: WBC 9.4. Hemoglobin 12.0. Platelet count 197. Sodium 137. Potassium 4.0. BUN 30. Creatinine 0.69. Magnesium 2.1. Troponin 0.074. 0.081. 0.085. proBNP 659. - Current home cardiac medication list is not updated at the time of examination - No previous echocardiogram, stress test, or cardiac catheterization available in EMR for review REVIEW OF SYSTEMS: At the time of my exam: CONSTITUTIONAL: Denies fever or chills. HEENT: Denies blurred vision, vision changes, or eye pain. Denies hemoptysis CARDIOVASCULAR: Denies chest pain. Denies orthopnea. Denies PND. Denies palpitations RESPIRATORY: Denies shortness of breath. GASTROINTESTINAL: Denies abdominal pain. Denies nausea or vomiting. HEMATOLOGIC: Denies bleeding disorders. GENITOURINARY: Denies any blood in urine. SKIN: Denies pruitis. Denies rash. PHYSICAL EXAM: VITAL SIGNS: Reviewed. GENERAL: Well-developed in no acute distress. HEENT: Head is normocephalic. Pupils are equal, round. Sclerae anicteric. Mucous membranes of the mouth are moist. Neck supple. No JVD or thyromegaly LUNGS: Respirations even and unlabored. Lungs essentially clear to auscultation bilaterally. HEART: Regular rate and rhythm. S1 and S2 heard. ABDOMEN: Soft. Nondistended. Nontender. EXTREMITIES: Normal range of motion. No clubbing or cyanosis. Peripheral pulses intact. No lower extremity edema NEUROLOGIC: Awake and alert. Oriented x 3. ASSESSMENT: Acute on chronic lower back pain Elevated troponins of unclear significance, no evidence of myocardial injury or ischemia, ACS ruled out Paroxysmal atrial fibrillation, currently maintaining sinus mechanism History of chronic indwelling urinary catheter Nicotine dependence PLAN: Obtain 2D echo to assess cardiac structure and function Continue IV heparin until echo is resulted. If echo unremarkable, discontinue IV heparin and resume patients home dose of Eliquis Continue metoprolol tartrate. Change dosing to twice daily. Continue telemetry monitoring Primary medicine to address patient's primary complaint of lower back pain Further recommendations pending patient course Nurse practitioner note has been reviewed by physician. Signing provider agrees with the documented findings, assessment, and plan of care documented by WIRE HARNESS DESIGN ENGINEER as a scribe. Past Medical History Past Medical History: Atrial Fibrillation, Atrial Flutter, COPD, GERD/Reflux, Pneumonia, Prostate Disorder Additional Past Medical History / Comment(s): Paroxysmal Afib, bronchitis, BPH, constipation, vertigo, chronic low back pain/DDD. covid 06/22 History of Any Multi-Drug Resistant Organisms: None Reported Past Surgical History: Back Surgery Additional Past Surgical History / Comment(s): Bilateral cataract removals-lens implants, colonoscopy, multiple kyphoplasties. Past Anesthesia/Blood Transfusion Reactions: No Reported Reaction Additional Past Anesthesia/Blood Transfusion Reaction / Comment(s): Has never received any blood transfusions. Past Psychological History: No Psychological Hx Reported Smoking Status: Current every day smoker Past Alcohol Use History: None Reported Past Drug Use History: None Reported - Past Family History Mother Family Medical History: AFIB, Dementia Father Family Medical History: Myocardial Infarction ([place]) Additional Family Medical History / Comment(s): in his 70's from [place] Medications and Allergies Home Medications Medication Instructions Recorded Confirmed Type Tamsulosin HCl [Flomax] 0.4 mg PO BID@0400,1600 03/24/18 05/13/22 History Apixaban [Eliquis] 5 mg PO BID@0400,1600 09/14/18 05/13/22 History Metoprolol Tartrate [Lopressor] 50 mg PO DAILY 02/04/19 05/13/22 History Budesonide/Formoterol Fumarate 2 puff INHALATION RT-BID 05/21/20 05/13/22 History [Symbicort 160-4.5 Mcg Inhaler] Fluticasone Propion/Salmeterol 1 puff INHALATION RT-BID 04/07/21 05/13/22 History [Advair 250-50 Diskus] Gabapentin [Neurontin] 200 mg PO BID@0400,1600 04/07/21 05/13/22 History Albuterol Nebulized [Ventolin 2.5 mg INHALATION RT-Q4H PRN 09/20/21 05/13/22 History Nebulized] Albuterol Inhaler [Ventolin Hfa 1 puff INHALATION RT-Q4H PRN 11/17/21 05/13/22 History Inhaler] Ipratropium Nebulized [Atrovent 0.5 mg INHALATION RT-Q4H PRN 11/17/21 05/13/22 History Nebulized 0.2 MG/ML] polyethylene glycoL 3350 [Miralax] 17 gm PO DAILY packet 04/09/22 05/13/22 Rx Docusate [Colace] 100 mg PO DAILY #14 capsule 04/29/22 05/13/22 Rx Alendronate Sodium [Fosamax] 70 mg PO GROVES 05/02/22 05/13/22 History HYDROcodone/APAP 5-325MG [[place] 1 tab PO Q8H PRN 05/09/22 05/13/22 History 5-325] Levofloxacin [Levaquin] 500 mg PO DAILY 1 Days #1 tab 05/12/22 05/13/22 Rx Pantoprazole [Protonix] 40 mg PO DAILY #30 tab 05/15/22 Rx Ciprofloxacin HCl [Cipro] 500 mg PO BID 10 Days #20 tab 06/05/22 Rx Allergies Allergy/AdvReac Type Severity Reaction Status Date / Time Iodinated Contrast Media Allergy Rash/Hives Verified 02/08/24 22:50 [Iodinated Contrast- Oral and IV Dye] latex Allergy Rash/Hives Verified 02/08/24 22:50 Physical Exam Vitals: Vital Signs Temp Pulse Resp BP Pulse Ox 02/09/24 08:01 74 02/09/24 07:52 70 02/09/24 06:27 97.6 F 75 16 94/61 96 02/09/24 03:59 93 16 110/62 97 02/09/24 00:57 97.8 F 84 16 127/76 97 02/08/24 22:44 97.4 F L 69 18 131/71 94 L Intake and Output 02/08/24 02/09/24 02/09/24 22:59 06:59 14:59 Intake Total 29.144 Balance 29.144 Intake: Intake, IV Titration 29.144 Amount Heparin Sod,Pork in 0.45% 29.144 NaCl 25,000 unit In 0.45 % NaCl 1 250ml.bag @ 12 UNITS/KG/HR 6.804 mls/hr IV .Q24H [facility] Rx#: [id number] Other: Weight 56.699 kg Results 02/09/24 05:16 02/08/24 23:11 Cardiac Enzymes 02/08/24 02/08/24 02/09/24 Range/Units 23:11 23:11 05:16 AST 13 L (17-59) U/L Troponin I 0.074 H* 0.081 H* (0.000-0.034) ng/mL 02/09/24 Range/Units 06:09 AST (17-59) U/L Troponin I 0.085 H* (0.000-0.034) ng/mL Coagulation 02/09/24 02/09/24 Range/Units 03:00 05:16 PT 11.6 (10.0-12.5) sec APTT 28.1 (22.0-30.0) sec CBC 02/08/24 02/09/24 Range/Units 23:11 05:16 WBC 11.3 H 9.4 (3.8-10.6) k/uL RBC 3.67 L 3.61 L (4.30-5.90) m/uL Hgb 12.3 L 12.0 L (13.0-17.5) gm/dL Hct 36.4 L 36.1 L (39.0-53.0) % Plt Count 193 197 (150-450) k/uL Comprehensive Metabolic Panel 02/08/24 Range/Units 23:11 Sodium 137 (137-145) mmol/L Potassium 4.0 (3.5-5.1) mmol/L Chloride 110 H (98-107) mmol/L Carbon Dioxide 26 (22-30) mmol/L BUN 30 H (9-20) mg/dL Creatinine 0.69 (0.66-1.25) mg/dL Glucose 85 (74-99) mg/dL Calcium 8.5 (8.4-10.2) mg/dL AST 13 L (17-59) U/L ALT 13 (4-49) U/L Alkaline Phosphatase 59 (38-126) U/L Total Protein 5.6 L (6.3-8.2) g/dL Albumin 3.0 L (3.5-5.0) g/dL Current Medications Generic Name Dose Route Start Last Admin Trade Name Freq PRN Reason Stop Dose Admin Hydrocodone Bitart/Acetaminophen 1 each 02/09/24 02:02 Hydrocodone/Apap 5-325mg 1 Each Tab PO Q8H PRN Pain Albuterol/Ipratropium 3 ml 02/09/24 02:06 02/09/24 07:51 Ipratropium-Albuterol 3 Ml Neb INHALATION 3 ml Q4HR PRN Administration Shortness Of Breath Or Wheezing Aspirin 325 mg 02/10/24 09:00 Aspirin 325 Mg Tab PO DAILY [facility] Budesonide/Formoterol Fumarate 2 puff 02/09/24 08:00 02/09/24 07:52 Symbicort 160-4.5 Mcg Inhaler INHALATION 2 puff RT-BID [facility] Administration Docusate Sodium 100 mg 02/09/24 09:00 Docusate 100 Mg Cap PO DAILY [facility] Gabapentin 200 mg 02/09/24 04:00 02/09/24 03:56 Gabapentin 100 Mg Cap PO 200 mg BID@0400,1600 [facility] Administration Heparin Sodium (Porcine) 0 unit 02/08/24 23:09 Heparin Sodium 1,000 Un/Ml (10ml Vl) IV PER PROTOCOL PRN Low PTT Protocol Heparin Sodium/Sodium Chloride 250 mls @ 6.804 mls/hr 02/08/24 23:15 02/09/24 03:43 25,000 unit/ Sodium Chloride IV 15 units/kg/hr .Q24H [facility] 8.505 mls/hr Titration Protocol 12 UNITS/KG/HR Metoprolol Tartrate 50 mg 02/09/24 09:00 Metoprolol Tartrate 50 Mg Tab PO DAILY [facility] Nitroglycerin 0.4 mg 02/09/24 02:00 Nitroglycerin Sl Tabs 0.4 Mg Tab SUBLINGUAL Q5M PRN Chest Pain Pantoprazole Sodium 40 mg 02/09/24 09:00 Pantoprazole 40 Mg Tablet PO DAILY [facility] Polyethylene Glycol 17 gm 02/09/24 09:00 Polyethylene Glycol 3350 17 Gm Powd.Pack PO DAILY [facility] Tamsulosin HCl 0.4 mg 02/09/24 04:00 02/09/24 03:56 Tamsulosin 0.4 Mg Cap.Er.24h PO 0.4 mg BID@0400,1600 [facility] Administration Intake and Output 02/08/24 02/09/24 02/09/24 22:59 06:59 14:59 Intake Total 29.144 Balance 29.144 Intake: Intake, IV Titration 29.144 Amount Heparin Sod,Pork in 0.45% 29.144 NaCl 25,000 unit In 0.45 % NaCl 1 250ml.bag @ 12 UNITS/KG/HR 6.804 mls/hr IV .Q24H [facility] Rx#: [id number] Other: Weight 56.699 kg 02/09/24 05:16 02/08/24 23:11
[2024-02-09] MEDS: HEPARIN SODIUM 1,000 UN/ML (10ML VL) IV PRN (11:00)
[2024-02-09 11:52] VITALS: RESP 18
[2024-02-09] MEDS: HYDROcodone/APAP 5-325MG 1 EACH TAB PO PRN (12:50)
--- NOTE | 2024-02-09 16:32 | P.HPIM ---
History of Present Illness H&P Date: 02/09/24 Chief Complaint: chest pain low back pain patient is awake alert vital signs are stable patient is afebrile, presents to the hospital via ambulance from [facility] with elevated troponin and acute back pain Review of Systems Constitutional: Reports chronic pain Ears, nose, mouth and throat: Reports as per HPI Cardiovascular: Reports high blood pressure, Reports shortness of breath Respiratory: Reports cough, Reports cough with sputum, Reports wheezing (long- standing COPD) Gastrointestinal: Reports as per HPI Genitourinary: Reports as per HPI Musculoskeletal: Reports low back pain, Reports morning stiffness, Reports muscle cramps Integumentary: Reports as per HPI Neurological: Reports as per HPI Psychiatric: Reports as per HPI Endocrine: Reports as per HPI Hematologic/Lymphatic: Reports as per HPI Past Medical History Past Medical History: Atrial Fibrillation, Atrial Flutter, COPD, GERD/Reflux, Pneumonia, Prostate Disorder Additional Past Medical History / Comment(s): Paroxysmal Afib, bronchitis, BPH, constipation, vertigo, chronic low back pain/DDD. covid 06/22 History of Any Multi-Drug Resistant Organisms: None Reported Past Surgical History: Back Surgery Additional Past Surgical History / Comment(s): Bilateral cataract removals-lens implants, colonoscopy, multiple kyphoplasties. Past Anesthesia/Blood Transfusion Reactions: No Reported Reaction Additional Past Anesthesia/Blood Transfusion Reaction / Comment(s): Has never received any blood transfusions. Past Psychological History: No Psychological Hx Reported Smoking Status: Current every day smoker Past Alcohol Use History: None Reported Past Drug Use History: None Reported - Past Family History Mother Family Medical History: AFIB, Dementia Father Family Medical History: Myocardial Infarction ([place]) Additional Family Medical History / Comment(s): in his 70's from [place] Medications and Allergies Home Medications Medication Instructions Recorded Confirmed Type Tamsulosin HCl [Flomax] 0.4 mg PO BID 03/24/18 02/09/24 History Apixaban [Eliquis] 5 mg PO BID 09/14/18 02/09/24 History Gabapentin [Neurontin] 100 mg PO BID 04/07/21 02/09/24 History Albuterol Inhaler [Ventolin Hfa 1 puff INHALATION RT-Q4H PRN 11/17/21 02/09/24 History Inhaler] Alendronate Sodium [Fosamax] 70 mg PO GROVES 05/02/22 02/09/24 History Pantoprazole [Protonix] 40 mg PO DAILY #30 tab 05/15/22 02/09/24 Rx Docusate [Colace] 100 mg PO DAILY PRN 02/09/24 02/09/24 History Doxazosin [Cardura] 4 mg PO DAILY 02/09/24 02/09/24 History Fluticasone/Umeclidin/Vilanter 1 puff INHALATION RT-DAILY 02/09/24 02/09/24 History [Trelegy Ellipta 200-62.5-25] HYDROcodone/APAP 7.5-325MG [[place] 1 tab PO Q6HR PRN 02/09/24 02/09/24 History 7.5-325] Ipratropium-Albuterol Nebulize 3 ml INHALATION RT-Q6H 02/09/24 02/09/24 History [Duoneb 0.5 mg-3 mg/3 ml Soln] Nitroglycerin Sl Tabs [Nitrostat] 0.4 mg SUBLINGUAL Q5M PRN 02/09/24 02/09/24 History Omeprazole [PriLOSEC] 20 mg PO DAILY 02/09/24 02/09/24 History predniSONE [Deltasone] 20 mg PO DAILY 02/09/24 02/09/24 History Allergies Allergy/AdvReac Type Severity Reaction Status Date / Time Iodinated Contrast Media Allergy Rash/Hives Verified 02/09/24 10:27 [Iodinated Contrast- Oral and IV Dye] latex Allergy Rash/Hives Verified 02/09/24 10:27 Physical Exam Osteopathic Statement: *. No significant issues noted on an osteopathic structural exam other than those noted in the History and Physical/Consult. Vitals: Vital Signs Temp Pulse Resp BP Pulse Ox 02/09/24 15:26 76 18 116/68 95 02/09/24 12:53 71 18 119/71 97 02/09/24 11:50 60 18 123/79 96 02/09/24 10:00 72 20 119/71 96 02/09/24 08:22 61 20 114/63 96 02/09/24 08:01 74 02/09/24 07:52 70 02/09/24 06:27 97.6 F 75 16 94/61 96 02/09/24 03:59 93 16 110/62 97 12/08/24 00:57 97.8 F 84 16 127/76 97 02/08/24 22:44 97.4 F L 69 18 131/71 94 L Intake and Output 02/09/24 02/09/24 02/09/24 06:59 14:59 22:59 Intake Total 29.144 62.37 Balance 29.144 62.37 Intake: Intake, IV Titration 29.144 62.37 Amount Heparin Sod,Pork in 0.45% 29.144 62.37 NaCl 25,000 unit In 0.45 % NaCl 1 250ml.bag @ 12 UNITS/KG/HR 6.804 mls/hr IV .Q24H [facility] Rx#: [id number] General: [Patient awake, alert and oriented times 3. Patient in no acute distress.] HEENT: [PERRL. EOMI. No pharyngeal erythema or exudate.] Neck: [No adenopathy.] Cardiac: [Heart regular in rate and rhythm. No S3. No S4. No clicks, rubs. No murmur.] Lungs: diminished breath sounds bilaterally with chronic bibasilar crackles Abdomen: [No mass. No organomegaly. Bowel sounds presnt and normoactive in all 4 quadrants.] Extremes: persistent low back pain with straight leg raise on the right, pain shoots into the right fifth toe Musculoskeletal: [No joint erythema, edema or tenderness.] Skin: [No rash.] Neurologic: [No lateralizing deficits. CN II - XII grossly intact.] Lymphatic: [No adenopathy.] Results CBC & Chem 7: 02/09/24 05:16 02/08/24 23:11 Labs: Abnormal Lab Results - Last 24 Hours (Table) 02/08/24 02/08/24 02/08/24 Range/Units 23:11 23:11 23:11 WBC 11.3 H (3.8-10.6) k/uL RBC 3.67 L (4.30-5.90) m/uL Hgb 12.3 L (13.0-17.5) gm/dL Hct 36.4 L (39.0-53.0) % Neutrophils # 9.8 H (1.3-7.7) k/uL Lymphocytes # 0.8 L (1.0-4.8) k/uL APTT (22.0-30.0) sec Chloride 110 H (98-107) mmol/L BUN 30 H (9-20) mg/dL AST 13 L (17-59) U/L Troponin I 0.074 H* (0.000-0.034) ng/mL Total Protein 5.6 L (6.3-8.2) g/dL Albumin 3.0 L (3.5-5.0) g/dL 02/09/24 02/09/24 02/09/24 Range/Units 05:16 05:16 06:09 WBC (3.8-10.6) k/uL RBC 3.61 L (4.30-5.90) m/uL Hgb 12.0 L (13.0-17.5) gm/dL Hct 36.1 L (39.0-53.0) % Neutrophils # (1.3-7.7) k/uL Lymphocytes # (1.0-4.8) k/uL APTT (22.0-30.0) sec Chloride (98-107) mmol/L BUN (9-20) mg/dL AST (17-59) U/L Troponin I 0.081 H* 0.085 H* (0.000-0.034) ng/mL Total Protein (6.3-8.2) g/dL Albumin (3.5-5.0) g/dL 02/09/24 Range/Units 09:09 WBC (3.8-10.6) k/uL RBC (4.30-5.90) m/uL Hgb (13.0-17.5) gm/dL Hct (39.0-53.0) % Neutrophils # (1.3-7.7) k/uL Lymphocytes # (1.0-4.8) k/uL APTT 38.6 H (22.0-30.0) sec Chloride (98-107) mmol/L BUN (9-20) mg/dL AST (17-59) U/L Troponin I (0.000-0.034) ng/mL Total Protein (6.3-8.2) g/dL Albumin (3.5-5.0) g/dL Thrombosis Risk Factor Assmnt - DVT/VTE Prophylaxis DVT/VTE Prophylaxis: Low risk, early ambulation encouraged Assessment and Plan (1) Acute exacerbation of chronic obstructive airways disease Current Visit: No Status: Acute Code(s): J44.1 - CHRONIC OBSTRUCTIVE PULMONARY DISEASE W (ACUTE) EXACERBATION SNOMED Code(s): 616806249 (2) Acute hypercapnic respiratory failure Current Visit: No Status: Acute Code(s): J96.02 - ACUTE RESPIRATORY FAILURE WITH HYPERCAPNIA SNOMED Code(s): 932047200 (3) Acute urinary retention Current Visit: No Status: Acute Code(s): R33.8 - OTHER RETENTION OF URINE SNOMED Code(s): 978006401 (4) Atrial fibrillation Current Visit: No Status: Acute Code(s): I48.91 - UNSPECIFIED ATRIAL FIBRILLATION SNOMED Code(s): 04608711 (5) BPH (benign prostatic hyperplasia) Current Visit: No Status: Acute Code(s): N40.0 - BENIGN PROSTATIC HYPE RPLASIA WITHOUT LOWER URINRY TRACT SYMP SNOMED Code(s): 494596531 (6) BiPAP (biphasic positive airway pressure) dependence Current Visit: No Status: Acute Code(s): Z99.89 - DEPENDENCE ON OTHER ENABLING MACHINES AND DEVICES SNOMED Code(s): 480472785 (7) COPD exacerbation Current Visit: No Status: Acute Code(s): J44.1 - CHRONIC OBSTRUCTIVE PULMONARY DISEASE W (ACUTE) EXACERBATION SNOMED Code(s): 085221265 (8) Chronic low back pain Current Visit: No Status: Acute Code(s): M54.5 - LOW BACK PAIN * DO NOT USE *; G89.29 - OTHER CHRONIC PAIN SNOMED Code(s): 439799375 (9) Elevated troponin level not due myocardial infarction Current Visit: Yes Status: Acute Code(s): R79.89 - OTHER SPECIFIED ABNORMAL FINDINGS OF BLOOD CHEMISTRY SNOMED Code(s): 569527060 Plan: admitted to hospital Elevated troponin unknown etiology Persistent low back pain Cardiology consultation Physical therapy evaluation pulmonary consultation secondary to severe COPD and BiPAP dependence We'll continue to follow closely Time with Patient: Greater than 30
[2024-02-09] MEDS ORDERED: HYDROcodone/APAP 10-325MG 1 EACH TAB PO PRN (18:45)
[2024-02-09] MEDS: HYDROcodone/APAP 10-325MG 1 EACH TAB PO PRN (19:06)
[2024-02-09] MEDS: NICOTINE 21MG/24HR PATCH TRANSDERM SCH (19:54)
[2024-02-10] MEDS ORDERED: ASPIRIN 325 MG TAB PO SCH (09:00)
[2024-02-10 09:39] VITALS: TEMP 98.5
[2024-02-10 10:24] LABS: Chol/HDL Ratio 4.15 Ratio; LDL Cholesterol,Calculated 86.9 mg/dL (0.0-131.0)
--- NOTE | 2024-02-10 10:32 | P.DS ---
Providers Date of admission: 02/09/24 02:00 Expected date of discharge: 02/10/24 Attending physician: Fernando Lambert Consults: 02/09/24 02:00 Consult Physician Routine Consulting Provider: Mary Jane Alvarez Consult Reason/Comments: elevated troponin Do you want consulting provider notified?: Yes Primary care physician: [facility] Course: Final Diagnoses: (1) Acute exacerbation of chronic obstructive airways disease Current Visit: No Status: Acute Code(s): J44.1 - CHRONIC OBSTRUCTIVE PULMONARY DISEASE W (ACUTE) EXACERBATION SNOMED Code(s): 580642688 (2) Acute hypercapnic respiratory failure Current Visit: No Status: Acute Code(s): J96.02 - ACUTE RESPIRATORY FAILURE WITH HYPERCAPNIA SNOMED Code(s): 991283130 (3) Acute urinary retention Current Visit: No Status: Acute Code(s): R33.8 - OTHER RETENTION OF URINE SNOMED Code(s): 926795025 (4) Atrial fibrillation Current Visit: No Status: Acute Code(s): I48.91 - UNSPECIFIED ATRIAL FIBRILLATION SNOMED Code(s): 18808234 (5) BPH (benign prostatic hyperplasia) Current Visit: No Status: Acute Code(s): N40.0 - BENIGN PROSTATIC HYPERPLASIA WITHOUT LOWER URINRY TRACT SYMP SNOMED Code(s): 859584716 (6) BiPAP (biphasic positive airway pressure) dependence Current Visit: No Status: Acute Code(s): Z99.89 - DEPENDENCE ON OTHER ENABLING MACHINES AND DEVICES SNOMED Code(s): 923435012 (7) COPD exacerbation Current Visit: No Status: Acute Code(s): J44.1 - CHRONIC OBSTRUCTIVE PULMONARY DISEASE W (ACUTE) EXACERBATION SNOMED Code(s): 328288641 (8) Chronic low back pain Current Visit: No Status: Acute Code(s): M54.5 - LOW BACK PAIN * DO NOT USE *; G89.29 - OTHER CHRONIC PAIN SNOMED Code(s): 912086968 (9) Elevated troponin level not due myocardial infarction Current Visit: Yes Status: Acute Code(s): R79.89 - OTHER SPECIFIED ABNORMAL FINDINGS OF BLOOD CHEMISTRY SNOMED Code(s): 354483856 Hospital course: This is a 78-year-old gentleman transferred from [facility] with elevated troponins, acute back pain, severe COPD, ongoing nicotine dependence and multiple other medical issues. Evaluated by cardiology. Maintained on IV heparin drip, echo results pending. Patient will be discharged home today in a stable condition with guarded prognosis pending echo results, final clearance/DC recommendations per cardiology. Smoking cessation reinforced. The impression and plan of care has been dictated as directed. : I performed a history and examination of this patient, discussed the same with the dictator. I agree with the dictator's note ,documented as a scribe. Any additional findings or plans will be noted. Patient Condition at Discharge: Stable Plan - Discharge Summary New Discharge Prescriptions: New Nicotine 21Mg/24Hr Patch [Habitrol] 1 patch TRANSDERM DAILY patch Metoprolol Tartrate [Lopressor] 50 mg PO BID #60 tab polyethylene glycoL 3350 [Miralax] 17 gm PO DAILY packet Continue Tamsulosin HCl [Flomax] 0.4 mg PO BID Apixaban [Eliquis] 5 mg PO BID Doxazosin [Cardura] 4 mg PO DAILY Gabapentin [Neurontin] 100 mg PO BID Albuterol Inhaler [Ventolin Hfa Inhaler] 1 puff INHALATION RT-Q4H PRN PRN Reason: Shortness Of Breath Alendronate Sodium [Fosamax] 70 mg PO GROVES Pantoprazole [Protonix] 40 mg PO DAILY #30 tab Nitroglycerin Sl Tabs [Nitrostat] 0.4 mg SUBLINGUAL Q5M PRN PRN Reason: Chest Pain Fluticasone/Umeclidin/Vilanter [Trelegy Ellipta 200-62.5-25] 1 puff INHALATION RT-DAILY Docusate [Colace] 100 mg PO DAILY PRN PRN Reason: Constipation HYDROcodone/APAP 7.5-325MG [[place] 7.5-325] 1 tab PO Q6HR PRN PRN Reason: Pain predniSONE [Deltasone] 20 mg PO DAILY Omeprazole [PriLOSEC] 20 mg PO DAILY Ipratropium-Albuterol Nebulize [Duoneb 0.5 mg-3 mg/3 ml Soln] 3 ml INHALATION RT-Q6H Discharge Medication List Tamsulosin HCl [Flomax] 0.4 mg PO BID 03/24/18 [History] Apixaban [Eliquis] 5 mg PO BID 07/14/19 [History] Gabapentin [Neurontin] 100 mg PO BID 04/07/21 [History] Albuterol Inhaler [Ventolin Hfa Inhaler] 1 puff INHALATION RT-Q4H PRN 11/17/21 [History] Alendronate Sodium [Fosamax] 70 mg PO GROVES 05/02/22 [History] Pantoprazole [Protonix] 40 mg PO DAILY #30 tab 05/15/22 [Rx] Docusate [Colace] 100 mg PO DAILY PRN 02/09/24 [History] Doxazosin [Cardura] 4 mg PO DAILY 02/09/24 [History] Fluticasone/Umeclidin/Vilanter [Trelegy Ellipta 200-62.5-25] 1 puff INHALATION RT-DAILY 02/09/24 [History] HYDROcodone/APAP 7.5-325MG [[place] 7.5-325] 1 tab PO Q6HR PRN 02/09/24 [History] Ipratropium-Albuterol Nebulize [Duoneb 0.5 mg-3 mg/3 ml Soln] 3 ml INHALATION RT-Q6H 02/09/24 [History] Nitroglycerin Sl Tabs [Nitrostat] 0.4 mg SUBLINGUAL Q5M PRN 02/09/24 [History] Omeprazole [PriLOSEC] 20 mg PO DAILY 02/09/24 [History] predniSONE [Deltasone] 20 mg PO DAILY 02/09/24 [History] Metoprolol Tartrate [Lopressor] 50 mg PO BID #60 tab 02/10/24 [Rx] Nicotine 21Mg/24Hr Patch [Habitrol] 1 patch TRANSDERM DAILY patch 02/10/24 [Rx] polyethylene glycoL 3350 [Miralax] 17 gm PO DAILY packet 02/10/24 [Rx] Follow up Appointment(s)/Referral(s): Fernando Lambert Jr, [Primary Care Provider] - 1 Week Activity/Diet/Wound Care/Special Instructions: Pending echo, final DC recommendations/clearance per cardio No smoking
--- NOTE | 2024-02-10 11:52 | CA ---
Transthoracic Echo Report Name: Shawn Hinkle Age: 78 Gender: M : 1945 Exam Date: 02/10/2024 09:53 Exam Location: [facility] Ht (in): 63 Wt (lb): 125 Ordering Physician: Geni Macario Attending/Referring Phys: [id number], [employer] Karissa Sarabia, AYANA Procedure CPT: Indications: lv function, elevated trops Cardiac Hx: COPD, Smoker Technical Quality: Fair Contrast 1: Total Dose (mL): Contrast 2: Total Dose (mL): MEASUREMENTS (Male / Female) Normal Values 2D ECHO LV Diastolic Diameter PLAX 3.9 cm 4.2 - 5.9 / 3.9 - 5.3 cm LV Systolic Diameter PLAX 2.3 cm IVS Diastolic Thickness 0.9 cm 0.6 - 1.0 / 0.6 - 0.9 cm LVPW Diastolic Thickness 0.8 cm 0.6 - 1.0 / 0.6 - 0.9 cm LV Relative Wall Thickness 0.5 RV Internal Dim ED PLAX 1.9 cm LA Systolic Diameter LX 3.8 cm 3.0 - 4.0 / 2.7 - 3.8 cm LV Diastolic Volume MOD BP 51.0 cm??? 67 - 155 / 56 - 104 cm??? LV Systolic Volume MOD BP 23.1 cm??? 22 - 58 / 19 - 49 cm??? LV Ejection Fraction MOD BP 54.8 % >= 55 % LV Cardiac Index MOD BP 1177.1 cm???/min???m??? LV Diastolic Volume MOD 4C 65.2 cm??? LV Systolic Volume MOD 4C 15.6 cm??? LV Ejection Fraction MOD 4C 76.1 % LV Cardiac Index MOD 4C 2088.2 cm???/min???m??? LV Diastolic Length 4C 7.2 cm LV Systolic Length 4C 2.7 cm LV Diastolic Volume MOD 2C 37.4 cm??? LV Systolic Volume MOD 2C 15.4 cm??? LV Ejection Fraction MOD 2C 58.8 % LV Cardiac Index MOD 2C 926.6 cm???/min???m??? LV Diastolic Length 2C 6.6 cm LV Systolic Length 2C 6.2 cm LA Volume 17.8 cm??? 18 - 58 / 22 - 52 cm??? LA Volume Index 11.2 cm???/m??? 16 - 28 cm???/m??? M-MODE Aortic Root Diameter MM 3.2 cm LA Systolic Diameter MM 3.2 cm LA Ao Ratio MM 1.0 AV Cusp Separation MM 1.8 cm DOPPLER MV Area PHT 2.3 cm??? Mitral E Point Velocity 56.7 cm/s Mitral A Point Velocity 97.2 cm/s Mitral E to A Ratio 0.6 MV Deceleration Time 325.9 ms TR Peak Velocity 307.7 cm/s TR Peak Gradient 37.9 mmHg Right Ventricular Systolic Press 42.9 mmHg FINDINGS Left Ventricle Left ventricular ejection fraction is estimated at 55-60 %. Normal left ventricular systolic function with no obvious regional wall motion abnormalities. Left ventricular cavity size normal. Left ventricular wall thickness normal. Right Ventricle Mild right ventricular dilatation. Normal right ventricular global systolic function. Mild pulmonary hypertension. Right Atrium Normal right atrial size. Left Atrium Mild left atrial dilatation. Mitral Valve Structurally normal mitral valve. Trace mitral regurgitation. No mitral stenosis. Aortic Valve Trileaflet aortic valve. No aortic valve stenosis or regurgitation. Tricuspid Valve Structurally normal tricuspid valve. Mild tricuspid regurgitation. No tricuspid stenosis. Pulmonic Valve Structurally normal pulmonic valve. Trace pulmonic regurgitation. No pulmonic stenosis. Pericardium Small pericardial effusion. Aorta Normal size aortic root and proximal ascending aorta. CONCLUSIONS Suboptimal images. Normal LV size and systolic function with mild pulmonary hypertension. There is mild mitral and tricuspid regurgitation. No significant pericardial effusion. Overall poor quality study Previewed by: Dr. Meme Rangel MD (Electronically Signed) Final Date: 10 February 2024 11:51
[2024-02-10 12:34] VITALS: BP 98/48; PULSE 63
[2024-02-10] MEDS: APIXABAN 5 MG TAB PO SCH (13:12)
[2024-02-10] MEDS ORDERED: ATORVASTATIN 20 MG TAB PO SCH (21:00)
== END 2024-02-10 14:04 ==
LOC: EC 22:42 → 3SCARD 02-09 02:00
PROVIDERS: ADMIT Family Medicine; ATTEND Family Medicine
DX: J44.1 Chronic obstructive pulmonary disease with (acute) exacerbation (principal); J96.02 Acute respiratory failure with hypercapnia; F17.200 Nicotine dependence, unspecified, uncomplicated; R79.89 Other specified abnormal findings of blood chemistry; N40.1 Benign prostatic hyperplasia with lower urinary tract symptoms; R33.8 Other retention of urine; G89.29 Other chronic pain; M54.50 Low back pain, unspecified; K21.9 Gastro-esophageal reflux disease without esophagitis; K59.00 Constipation, unspecified; I48.0 Paroxysmal atrial fibrillation; Z79.51 Long term (current) use of inhaled steroids; Z79.01 Long term (current) use of anticoagulants; Z79.83 Long term (current) use of bisphosphonates; Z79.899 Other long term (current) drug therapy; Z82.49 Family history of ischemic heart disease and other diseases of the circulatory system; Z88.8 Allergy status to other drugs, medicaments and biological substances; Z91.041 Radiographic dye allergy status; Z99.89 Dependence on other enabling machines and devices
CPT/HCPCS: 96366 ×2; 96365; 99285; 36415; 94640 ×4; 93005; 93306; 97162; 83880; 80061; 80053; 83735; 84484 ×2; 85025 ×2; 85610; 85730 ×2; G0378 ×2; J1644 ×3